=== PATIENT | female | born 1955 | race Two or more races ===

== ENCOUNTER 2024-05-07 10:48 | Inpatient (IN) | payer OTHER ==
[~2024-05-07] VITALS: Ht 157.5 cm; Wt 52.9 kg
[~2024-05-07 10:48] MED LIST: CIPR-173 PO; SERT25TA84 PO; SERT50TA PO; TAMO20TA9 PO
[2024-05-07] MEDS ORDERED: LIDOCAINE 2% TOPICAL JELLY 5 ML URJT TOP ONE (15:07)
[2024-05-07] MEDS ORDERED: ONDANSETRON HCL 4 MG/2 ML VIAL ONE (15:11)
[2024-05-07] MEDS ORDERED: ROCURONIUM 10MG/ML 10ML VIAL IV ONE (15:11)
[2024-05-07] MEDS ORDERED: GLYCOPYRROLATE 0.2 MG/ML 1ML VIAL ONE (15:11)
[2024-05-07] MEDS ORDERED: PROPOFOL 10 MG/ML 20 ML IV ONE (15:12)
[2024-05-07] MEDS ORDERED: DexAMETHasone SOD PHOS 10MG/1ML VIAL INJ ONE ×2 (15:12→15:16)
[2024-05-07] MEDS ORDERED: KETOROLAC TROMETH 30 MG/ML 1ML VIAL ONE (15:12)
[2024-05-07] MEDS ORDERED: LIDOCAINE 2%HCL (LOCAL ANESTH.) INJ 10ml MDV ONE (15:12)
[2024-05-07] MEDS ORDERED: EPINEPHrine HCL 1 MG/1 ML AMP ONE (15:12)
[2024-05-07] MEDS ORDERED: KETAMINE 50mg/ML 1ml syringe ONE (15:21)
[2024-05-07] MEDS ORDERED: fentaNYL CITRATE 100 MCG/2 ML VL ONE (15:21)
[2024-05-07] MEDS ORDERED: SUGAMMADEX 200mg/2ml Vial (100MG/ML) IV ONE (15:56)
[2024-05-07] MEDS: ceFAZolin 2 GM/D5W100ml 100 ML IV ONE (16:00)
[2024-05-07] MEDS ORDERED: MORPHINE SULFATE INJ 2 MG/ml SYRG IV PRN (16:30)
[2024-05-07] MEDS: SODIUM CHLORIDE 0.9% 1,000 ML IV SCH (16:30)
[2024-05-07] MEDS ORDERED: NITROGLYCERIN 0.4 MG SL TAB SL PRN (16:30)
[2024-05-07] MEDS ORDERED: ACETAMINOPHEN 500 MG TAB PO PRN (16:30)
[2024-05-07] MEDS ORDERED: ESMOLOL HCL 10 ML IV ONE (16:33)
--- NOTE | 2024-05-07 16:38 | DVHOP2 ---
Operative Report - 2 Report Details Date: 05/07/24 Preop Diagnosis: Pelvic prolapse, stress incontinence, cystocele, pelvic pain Postop Diagnosis: Same, suspicious vaginal lesion Surgeon: Edith Paz Respiratory Therapy Technician: medical technologist chief Anesthesiologist: RUPERT Anesthesia: General Drains: Shannon catheter 7 days Implant: Desera I Consent: The patient was informed of the risks and benefits of the procedure. These include but are not limited to complications of anesthesia, postoperative infection, incomplete relief of symptoms, recurrence of symptoms, damage to blood vessels, nerves and tendons, deep venous thrombosis, pulmonary embolism and possible need for repeat surgery in the future. Complications: none Estimated Blood Loss: 150cc Fluids: See anesthesia log Findings: Cystocele uterine vaginal prolapse, kinked urethrovesical junction Indications for Surgery: As preop diagnosis Name of Procedure Performed Robotic supracervical hysterectomy bilateral salpingo-oophorectomy colposcopic pexy cystocele repair urethral sling partial vaginectomy Procedure Details Procedure Details: See hard copy faxed to hospital Specimen: Uterus tubes ovaries in BLOC, vaginal mucosa, vaginal lesion Condition Good Disposition Home ANDRES PAZ DO May 07, 2024 16:38
[2024-05-07] MEDS: METHYLENE BLUE 0.5% 5MG/ML 10ml AMP IV ONE (16:46)
[2024-05-07] MEDS: BUPIVACAINE 0.25% INJ 50ML VIAL ONE (18:45)
[2024-05-07] MEDS: LIDOCAINE W/ EPINEPHRINE 1% 20ML VIAL ONE (18:45)
[2024-05-07] MEDS: CONJ ESTROGENS 0.625MG/GM VAG CRM 30GM PV ONE (19:10)
[2024-05-07 19:20] VITALS: PULSE 87; RESP 17; O2SAT 100
[2024-05-07 19:45] VITALS: PULSE 78; RESP 16; O2SAT 99
[2024-05-07] MEDS ORDERED: hydrALAZINE HCL 20 MG/ML VL IV PRN (19:45)
[2024-05-07] MEDS ORDERED: NALOXONE HCL 0.4 MG/ML VIAL IV PRN (19:45)
[2024-05-07] MEDS ORDERED: HYDROmorphone HCL 2 MG/ML VL/or syr IV PRN (19:45)
[2024-05-07] MEDS ORDERED: ePHEDrine SULFATE 50 MG/ML AMP IV PRN (19:45)
[2024-05-07] MEDS ORDERED: ONDANSETRON HCL 4 MG/2 ML VIAL IV PRN (19:45)
[2024-05-07] MEDS ORDERED: FLUMAZENIL 0.1 MG/ML INJ 10ML MDV IV PRN (19:45)
[2024-05-07] MEDS: fentaNYL CITRATE 100 MCG/2 ML VL IV PRN (20:04)
[2024-05-07] MEDS: oxyCODONE HCL 5MG TAB PO PRN (20:16)
[2024-05-07 20:47] VITALS: PULSE 81; RESP 19; O2SAT 100
[2024-05-07 21:00] VITALS: BP 153/51; PULSE 81; RESP 19; TEMP 98; O2SAT 100
[2024-05-07] MEDS: ONDANSETRON HCL 4 MG/2 ML VIAL IV PRN (23:42)
[2024-05-07] MEDS: MORPHINE SULFATE 4 MG/ML SYR/VIAL IV PRN (23:43)
[2024-05-08] VITALS (8 sets, daily range): BP systolic 86–167; BP diastolic 37–62; PULSE 67–95; RESP 16–20; TEMP 97.8–99; O2SAT 95–100
--- NOTE | 2024-05-08 06:11 | DVHPN2 ---
Chief Complaints Patient reports: No new complaints, Feels better Nursing reports: No new complaints, No chest pain, No dizziness, No cough Objective Vitals Vital Signs Date Time Temp Pulse Resp B/P (MAP) Pulse Ox O2 Delivery O2 Flow Rate FiO2 05/08/24 05:00 97.9 68 19 106/54 (71) 100 97.9 05/07/24 20:47 Room Air* 0 21 Medications Current Medications Medications (Trade) Dose Ordered Sig/Nora Route PRN Reason Start Time Stop Time Status Last Admin Acetaminophen (Tylenol Tablet) 500 mg Q6HP PRN PO TEMP GREATER THAN 100.4 05/07/24 16:30 Morphine Sulfate 2 mg Q30M PRN IV FOR CHEST PAIN 05/07/24 16:30 Morphine Sulfate 2 mg Q4HP PRN IV SEVERE PAIN (7-10 PAIN SCALE) 05/07/24 16:30 05/08/24 04:33 Nitroglycerin (Ntrostat Sublingual) 0.4 mg Q5MINP PRN SL FOR CHEST PAIN 05/07/24 16:30 Ondansetron HCl (Zofran) 4 mg Q4HP PRN IV NAUSEA / VOMITING 05/07/24 16:30 05/08/24 04:26 Oxycodone HCl 10 mg ONCE PRN PO MODERATE PAIN (4-6 PAIN SCALE) 05/07/24 19:45 05/07/24 20:16 Sodium Chloride 1,000 ml @ 80 mls/hr [id number] IV 05/07/24 16:30 05/08/24 04:05 General: Normal Head/Eyes: Normal ENT: Normal Neck: Normal Lungs: Normal Cardiovascular: Normal Abdominal: Normal (Wounds clean dry and intact) Musculoskeletal: Normal Extremities: Normal Skin: Normal Ass/Plan Assessment Postop day 1 advanced care see discharge summary see discharge orders Plan Patient will keep Shannon 7 days vaginal packing will be removed this morning advanced care. ANDRES PAZ DO May 08, 2024 06:11
--- NOTE | 2024-05-08 06:14 | DVHDS2 ---
Obstetrics Discharge Summary Obstetrics Discharge Summary Date of Admission: May 07, 2024 Date of Discharge: May 08, 2024 Reason For Admission: Others (Patient was admitted for robotic hysterectomy bilateral salpingo-oophorectomy urethral sling cystocele repair vaginal partial vaginectomy doing well) Procedures: None Procedures: None Operative Complicat: None Discharge Diagnosis: Others (Patient stable for discharge home see discharge orders see discharge summary) Discharge Information: Activity (Pelvic rest), Diet (Routine), Medications (Patient to resume her regular medications her prescription discharge meds at the pharmacy ready to vegetable picker), Instructions (Pelvic rest fever precautions pain precautions bleeding precautions), Discharge to (Home), Accompanied by (Family), Discarge date (05/08/2024) ANDRES PAZ DO May 08, 2024 06:14
[2024-05-08 07:53] LABS: Basophils # (auto) 0 10 ^3/uL (0-0.2); Basophils % (auto) 0.1 % (0.0-2.0); Eosinophils # (auto) 0 10 ^3/uL (0-0.8); Hematocrit 31.6 % (36.0-46.0); Hemoglobin 10.9 g/dL (12.2-16.2); Lymphocytes # (auto) 0.3 10 ^3/uL (0.4-5.4); Lymphocytes % (auto) 6.6 % (10.0-50.0); Mean Corpuscular Hgb Conc. 34.5 g/dL (32.0-36.0); Mean Corpuscular Volume 92.8 fL (80.0-100.0); Monocytes # (auto) 0.5 10 ^3/uL (0-1.3); Monocytes % (auto) 9.9 % (0.0-12.0); Neutrophils % (auto) 83.4 % (37.0-80.0); Platelet Count (auto) 132 10^3/uL (140-450); Red Blood Cells 3.41 10^6/uL (4.0-5.20); Red Cell Distribution Width 14.5 % (11.8-14.3); White Blood Cell 4.8 10^3/uL (4.4-10.8)
[2024-05-08] MEDS: KETOROLAC TROMETH 30 MG/ML 1ML VIAL IV ONE (09:21)
[2024-05-08] MEDS: SODIUM CHLORIDE 0.9% 1,500 ML IV ONE (12:02)
[2024-05-08] MEDS: HYDROcodone-ACET 5/325MG TAB PO PRN (15:10)
[2024-05-08] MEDS: SODIUM CHLORIDE 0.9% 1,000 ML IV SCH (17:30)
--- NOTE | 2024-05-08 18:13 | DVHHP2 ---
History of Present Illness Reason for Visit: Hysterectomy History of Present Illness 68-year-old female who was admitted for surgical procedure, patient had robotic hysterectomy salpingo-oophorectomy, with removal of right adnexal mass, colposacralpexy, cystocele repair and urethral sling with Dr. Apple yesterday. Patient was going to be discharged home today however her blood pressure has been low and she was having some nausea, so patient is staying overnight. Patient was given an NS 1500 mL bolus, and will have maintenance fluids at 150ml/hour. Patient denies chest pain, headache, dizziness, diaphoresis, shortness of breath, abdominal pain, no vomiting, fever, or chills endorsed by the patient. Patient was admitted for further evaluation medical management. Past Medical History Anemia, hypertension, breast cancer Past Surgical History Bilateral mastectomy, hernia repair Smoke: # pack years (50) ALCOHOL: none Drugs: None Lives: with Family Review of Systems Constitutional: No: Fever, Chills, Sweats, Weakness, Malaise, Other Eyes: No: Pain, Vision change, Conjunctivae inflammation, Eyelid inflammation, Other, Redness ENT: No: Ear pain, Ear discharge, Nose pain, Nose discharge, Nose congestion, Mouth pain, Mouth swelling, Throat pain, Throat swelling, Other Respiratory: No: Cough, Dry, Shortness of breath, SOB with excertion, Wheezing, Hemoptysis, Pleuritic Pain, Sputum, Wheezing, Other Cardiovascular: No: Chest Pain, Palpitations, Orthopnea, Paroxysmal Noc. Dyspnea, Edema, Lt Headedness, Other Gastrointestinal: Nausea; No: Vomiting, Abdominal Pain, Diarrhea, Constipation, Melena, Hematochezia, Other Genitourinary: No Dysuria, No Frequency, No Incontinence, No Hematuria, No Retention, No Other Musculoskeletal: No: other, neck pain, shoulder pain, arm pain, back pain, hand pain, leg pain, foot pain Skin: No: Rash, Lesions, Jaundice, Bruising, Other Neurological: No: Weakness, Numbness, Incoordination, Change in speech, Confusion, Seizures, Other Allergies: Coded Allergies: Sulfa Antibiotics (Unverified Allergy, Unknown, 05/04/24) Statins (Unverified Adverse Reaction, Intermediate, muscle aches, 05/04/24) Medications Current Medications Medications Dose Ordered Sig/Nora Route Start Time Stop Time Status Last Admin Dose Admin Ondansetron HCl 4 mg Q4HP PRN IV 05/07/24 16:30 05/08/24 17:47 4 MG Morphine Sulfate 2 mg Q4HP PRN IV 05/07/24 16:30 05/08/24 04:33 2 MG Acetaminophen 500 mg Q6HP PRN PO 05/07/24 16:30 Nitroglycerin 0.4 mg Q5MINP PRN SL 05/07/24 16:30 Morphine Sulfate 2 mg Q30M PRN IV 05/07/24 16:30 Oxycodone HCl 10 mg ONCE PRN PO 05/07/24 19:45 05/07/24 20:16 10 MG Acetaminophen/ Hydrocodone Bitart 1 tab Q4HPRN PRN PO 05/08/24 07:15 05/08/24 15:10 1 TAB Sodium Chloride 1,000 ml @ 150 mls/hr Q6H40M IV 05/08/24 17:30 Exam Vital Signs Vital Signs Date Time Temp Pulse Resp B/P (MAP) Pulse Ox O2 Delivery O2 Flow Rate FiO2 05/08/24 16:50 99.0 95 20 87/37 (54) 97 99.0 05/08/24 08:00 Room Air* 0 21 General Appearance: Alert, Oriented X3, Cooperative, No acute distress HEENT: Atraumatic, PERRLA, EOMI, Mucous membr. moist/pink Respiratory: Clear to auscultation, Normal air movement Cardiovascular: Regular rate, Normal S1, Normal S2, No murmurs Abdominal: Normal bowel sounds, Soft, No tenderness, No hepatospenomegaly Extremities: No clubbing, No cyanosis, No edema, Normal pulses, No tenderness/swelling Skin: No rashes, No breakdown, No significant lesion Neuro: Normal gait, Normal speech, Strength at 5/5 X4 ext, Normal tone, S ensation intact, Cranial nerves 3-12 NL Psych/Mental Status: Mental status NL, Mood NL Labs/Xrays Labs, diagnostic tests and surgical notes reviewed Labs Test 05/08/24 06:37 Range/Units White Blood Count 4.8 4.4-10.8 10^3/uL Red Blood Count 3.41 L 4.0-5.20 10^6/uL Hemoglobin 10.9 L 12.2-16.2 g/dL Hematocrit 31.6 L 36.0-46.0 % Mean Corpuscular Volume 92.8 80.0-100.0 fL Mean Corpuscular Hemoglobin 32.0 28.0-32.0 pg Mean Corpuscular Hemoglobin Concent 34.5 32.0-36.0 g/dL Red Cell Distribution Width 14.5 H 11.8-14.3 % Platelet Count 132 L 140-450 10^3/uL Mean Platelet Volume 7.5 6.9-10.8 fL Neutrophils (%) (Auto) 83.4 H 37.0-80.0 % Lymphocytes (%) (Auto) 6.6 L 10.0-50.0 % Monocytes (%) (Auto) 9.9 0.0-12.0 % Eosinophils (%) (Auto) 0.0 0.0-7.0 % Basophils (%) (Auto) 0.1 0.0-2.0 % Neutrophils # (Auto) 4.0 1.6-8.6 10 ^3/uL Lymphocytes # (Auto) 0.3 L 0.4-5.4 10 ^3/uL Monocytes # (Auto) 0.5 0-1.3 10 ^3/uL Eosinophils # (Auto) 0 0-0.8 10 ^3/uL Basophils # (Auto) 0 0-0.2 10 ^3/uL Nucleated Red Blood Cells 0.0 % Assessment/Plan Assessment/Plan Status post robotic hysterectomy bilateral salpingo-oophorectomy urethral sling cystocele repair vaginal partial vaginectomy Pain medications p.r.n. Zofran p.r.n. nausea Monitor for bleeding Monitor hemoglobin Follow labs in a.m. Follow up with Dr. Reid instructions for Shannon and discharge Hypotension Labs now Bolus now. 150 mL/hour NS maintenance fluids Follow labs in a.m. 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
[2024-05-08] MEDS: CIPROFLOXACIN HCL 500 MG TAB PO SCH (21:20)
[2024-05-08 21:47] LABS: Basophils # (auto) 0 10 ^3/uL (0-0.2); Basophils % (auto) 0.1 % (0.0-2.0); Eosinophils # (auto) 0 10 ^3/uL (0-0.8); Hematocrit 25.6 % (36.0-46.0); Hemoglobin 8.6 g/dL (12.2-16.2); Lymphocytes # (auto) 0.3 10 ^3/uL (0.4-5.4); Lymphocytes % (auto) 9.6 % (10.0-50.0); Mean Corpuscular Hemoglobin 31.2 pg (28.0-32.0); Mean Corpuscular Hgb Conc. 33.7 g/dL (32.0-36.0); Mean Corpuscular Volume 92.4 fL (80.0-100.0); Monocytes # (auto) 0.2 10 ^3/uL (0-1.3); Monocytes % (auto) 6.4 % (0.0-12.0); Neutrophils # (auto) 2.7 10 ^3/uL (1.6-8.6); Neutrophils % (auto) 83.9 % (37.0-80.0); Platelet Count (auto) 99 10^3/uL (140-450); Red Blood Cells 2.77 10^6/uL (4.0-5.20); Red Cell Distribution Width 14.9 % (11.8-14.3); White Blood Cell 3.2 10^3/uL (4.4-10.8)
[2024-05-08 22:01] LABS: Chloride 114 mmol/L (98-107); Sodium 139 mmol/L (136-145)
[2024-05-08 22:02] LABS: Anion Gap 5 (5-15); Calcium 7.5 mg/dL (8.7-10.4); Carbon Dioxide 20 mmol/L (20-30)
[2024-05-08 22:07] LABS: BUN/Creatinine Ratio 18.5 (10.0-20.0); Blood Urea Nitrogen 20 mg/dL (9-23); Glucose 136 mg/dL (74-106)
[2024-05-08 22:24] LABS: Platelet Estimate Decreased; RBC Morphology Normal
[2024-05-09] VITALS (7 sets, daily range): BP systolic 106–129; BP diastolic 43–54; PULSE 75–105; RESP 16–20; TEMP 97.5–98.7; O2SAT 93–97
[2024-05-09 07:30] LABS: Chloride 114 mmol/L (98-107); Potassium 3.9 mmol/L (3.5-5.1); Sodium 140 mmol/L (136-145)
[2024-05-09 07:31] LABS: Anion Gap 7 (5-15); Calcium 8.1 mg/dL (8.7-10.4); Carbon Dioxide 19 mmol/L (20-30)
[2024-05-09 07:36] LABS: BUN/Creatinine Ratio 21.6 (10.0-20.0); Blood Urea Nitrogen 19 mg/dL (9-23); Glucose 124 mg/dL (74-106)
[2024-05-09 07:38] LABS: Basophils # (auto) 0 10 ^3/uL (0-0.2); Basophils % (auto) 0.2 % (0.0-2.0); Eosinophils # (auto) 0 10 ^3/uL (0-0.8); Hematocrit 24.4 % (36.0-46.0); Hemoglobin 8.5 g/dL (12.2-16.2); Lymphocytes # (auto) 0.3 10 ^3/uL (0.4-5.4); Lymphocytes % (auto) 7.1 % (10.0-50.0); Mean Corpuscular Hemoglobin 32.1 pg (28.0-32.0); Mean Corpuscular Hgb Conc. 34.7 g/dL (32.0-36.0); Mean Corpuscular Volume 92.7 fL (80.0-100.0); Monocytes # (auto) 0.2 10 ^3/uL (0-1.3); Monocytes % (auto) 4.5 % (0.0-12.0); Neutrophils # (auto) 3.5 10 ^3/uL (1.6-8.6); Neutrophils % (auto) 88.2 % (37.0-80.0); Platelet Count (auto) 88 10^3/uL (140-450); Red Blood Cells 2.64 10^6/uL (4.0-5.20); Red Cell Distribution Width 14.8 % (11.8-14.3)
[2024-05-09] MEDS: FAMOTIDINE (10MG/ML) 2ML VL IV SCH (10:16)
--- NOTE | 2024-05-09 10:51 | DVHPN2 ---
Subjective 68-year-old female status post robotic surgery hysterectomy and bilateral salpingo-oophorectomy was done on 05/07/24 The patient was supposed to be discharged home yesterday however she became hypotensive and therefore she was admitted to the hospital for further evaluation Her labs showed a hemoglobin of 10.9 which dropped to 8.5 today Chemistries are stable with no acute kidney injury She was given IV fluids which improved her blood pressure Blood pressure was 87/37 yesterday it is 129/53 today She is complaining of severe abdominal pain and acid reflux Changes from previous H/P or p: Changes Eyes: No Pain, No Vision change, No Conjunctivae inflammation, No Eyelid inflammation, No Other, No Redness ENT: No Ear pain, No Ear discharge, No Nose pain, No Nose discharge, No Nose congestion, No Mouth pain, No Mouth swelling, No Throat pain, No Throat swelling, No Other Cardiovascular: No Chest Pain, No Palpitations, No Orthopnea, No Paroxysmal Noc. Dyspnea, No Edema, No Lt Headedness, No Other Respiratory: No Cough, No Dry, No Shortness of breath, No SOB with excertion, No Wheezing, No Hemoptysis, No Pleuritic Pain, No Sputum, No Other Gastrointestinal: Nausea Genitourinary: No Dysuria, No Frequency, No Incontinence, No Hematuria, No Retention, No Other Musculoskeletal: No other, No neck pain, No shoulder pain, No arm pain, No back pain, No hand pain, No leg pain, No foot pain Skin: No Rash, No Lesions, No Jaundice, No Bruising, No Other Objective Vitals Vital Signs Date Time Temp Pulse Resp B/P (MAP) Pulse Ox O2 Delivery O2 Flow Rate FiO2 05/09/24 09:26 98.7 95 18 129/53 (78) 93 98.7 05/08/24 20:00 Nasal Cannula* 2 28 Intake/Output Intake and Output 05/09/24 07:00 Intake Total 3080 ml Output Total 575 ml Balance 2505 ml Intake Oral 600 ml IV Total 2480 ml Output Urine Total 575 ml General Appearance: Alert, Oriented X3, Cooperative, No acute distress Lungs: Clear to auscultation, Normal air movement Cardiovascular: Regular rate, Normal S1, Normal S2 Abdomen: Normal bowel sounds, Soft, Other (Severe tenderness generalized no rebound) Extremities: No edema Medications Current Medications Medications Dose Ordered Sig/Nora Route Start Time Stop Time Status Last Admin Dose Admin Ondansetron HCl 4 mg Q4HP PRN IV 05/07/24 16:30 05/09/24 10:16 4 MG Morphine Sulfate 2 mg Q4HP PRN IV 05/07/24 16:30 05/08/24 04:33 2 MG Acetaminophen 500 mg Q6HP PRN PO 05/07/24 16:30 Nitroglycerin 0.4 mg Q5MINP PRN SL 05/07/24 16:30 Morphine Sulfate 2 mg Q30M PRN IV 05/07/24 16:30 Acetaminophen/ Hydrocodone Bitart 1 tab Q4HPRN PRN PO 05/08/24 07:15 05/09/24 05:07 1 TAB Sodium Chloride 1,000 ml @ 150 mls/hr Q6H40M IV 05/08/24 17:30 05/09/24 07:29 150 MLS/HR Ciprofloxacin 500 mg Q12HR PO 05/08/24 22:00 05/08/24 21:20 500 MG Famotidine 20 mg DAILY IV 05/09/24 10:00 05/09/24 10:16 20 MG Calcium Carbonate 500 mg QIDPRN PRN PO 05/09/24 09:00 Laboratory Results Laboratory Tests 05/09/24 06:11 Chemistry Test 05/08/24 21:08 05/09/24 06:11 Calcium Level 7.5 mg/dL (8.7-10.4) L 8.1 mg/dL (8.7-10.4) L Assessment/Plan Assessment/Plan Abdominal pain due to recent robotic surgery hysterectomy and salpingo- oophorectomy 2 days ago History of breast cancer with bilateral mastectomies History of bowel surgery and ileostomy which Anemia due to blood loss Hypotension Chronic pain syndrome, patient takes opiates at home Plan Lower the IV fluid rate to 60 mL an hour Increase Florence to 10/325 as needed Physical therapy to ambulate the patient today to see if she is ready to go home Pepcid for heartburn 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
[2024-05-09] MEDS: SODIUM CHLORIDE 0.9% 1,000 ML IV SCH (11:00)
[2024-05-09] MEDS: HYDROcodone-ACET 10/325MG TAB PO PRN (11:21)
[2024-05-10] VITALS (10 sets, daily range): BP systolic 124–144; BP diastolic 55–62; PULSE 83–107; RESP 15–18; TEMP 97.6–98.6; O2SAT 94–95
[2024-05-10 07:15] LABS: Albumin 2.6 g/dL (3.2-4.8); Alkaline Phosphatase 37 U/L (46-116); Anion Gap 6 (5-15); Aspartate Aminotransferase < 8 U/L (13-40); BUN/Creatinine Ratio 21.5 (10.0-20.0); Blood Urea Nitrogen 14 mg/dL (9-23); Calcium 8.1 mg/dL (8.7-10.4); Carbon Dioxide 19 mmol/L (20-30); Chloride 115 mmol/L (98-107); Glucose 87 mg/dL (74-106); Magnesium 1.5 mg/dL (1.6-2.6); Potassium 3.1 mmol/L (3.5-5.1); Sodium 140 mmol/L (136-145)
[2024-05-10 07:16] LABS: Bilirubin, Total 0.5 mg/dL (0.2-1.0); Total Protein 4.2 g/dL (5.7-8.2)
[2024-05-10 07:17] LABS: Alanine Aminotransferase < 9 U/L (7-40)
[2024-05-10 07:34] LABS: Basophils # (auto) 0 10 ^3/uL (0-0.2); Eosinophils # (auto) 0 10 ^3/uL (0-0.8); Lymphocytes # (auto) 0.2 10 ^3/uL (0.4-5.4); Monocytes # (auto) 0.1 10 ^3/uL (0-1.3); Neutrophils # (auto) 3.5 10 ^3/uL (1.6-8.6); Platelet Count (auto) 79 10^3/uL (140-450); White Blood Cell 3.8 10^3/uL (4.4-10.8)
[2024-05-10 07:35] LABS: Basophils % (auto) 0.2 % (0.0-2.0); Eosinophils % (auto) 0.4 % (0.0-7.0); Hematocrit 19.6 % (36.0-46.0); Lymphocytes % (auto) 4.3 % (10.0-50.0); Mean Corpuscular Hgb Conc. 33.7 g/dL (32.0-36.0); Mean Corpuscular Volume 91.9 fL (80.0-100.0); Monocytes % (auto) 2.2 % (0.0-12.0); Neutrophils % (auto) 92.9 % (37.0-80.0); Nucleated Red Blood Cells % 0.1 %; Red Blood Cells 2.13 10^6/uL (4.0-5.20); Red Cell Distribution Width 14.5 % (11.8-14.3)
[2024-05-10 07:43] LABS: Hemoglobin 6.6 g/dL (12.2-16.2)
[2024-05-10 08:34] LABS: Platelet Estimate Decreased
[2024-05-10] MEDS: fentaNYL CITRATE 100 MCG/2 ML VL ONE (09:55)
[2024-05-10] MEDS: BUPIVACAINE HCL 50 ML ONE (09:55)
[2024-05-10] MEDS: GABAPENTIN 300 MG CAP ONE (09:55)
[2024-05-10] MEDS: GELATIN 1 SPONGE SIZE 100 TOP ONE (09:55)
[2024-05-10] MEDS: CELECOXIB 100 MG CAP PO ONE (09:55)
[2024-05-10] MEDS: GABAPENTIN 300 MG CAP PO ONE (09:55)
[2024-05-10] MEDS: ACETAMINOPHEN IV 100 ML IV ONE (09:55)
[2024-05-10] MEDS: CELECOXIB 100 MG CAP ONE (09:55)
[2024-05-10] MEDS: ACETAMINOPHEN IV 1000 MG/100ML (10MG/ML) IV ONE (09:55)
[2024-05-10] MEDS: POTASSIUM CHL 20 Meq TABLET PO ONE ×2 (12:36→22:53)
[2024-05-10] MEDS: FUROSEMIDE 40 MG/4 ML VIAL IV ONE (12:39)
--- NOTE | 2024-05-10 22:07 | DVHPN2 ---
Subjective Weak c/o pain Hb is low Low K+ and Mg+ Changes from previous H/P or p: Changes Eyes: No Pain, No Vision change, No Conjunctivae inflammation, No Eyelid inflammation, No Other, No Redness ENT: No Ear pain, No Ear discharge, No Nose pain, No Nose discharge, No Nose congestion, No Mouth pain, No Mouth swelling, No Throat pain, No Throat swelling, No Other Cardiovascular: No Chest Pain, No Palpitations, No Orthopnea, No Paroxysmal Noc. Dyspnea, No Edema, No Lt Headedness, No Other Respiratory: No Cough, No Dry, No Shortness of breath, No SOB with excertion, No Wheezing, No Hemoptysis, No Pleuritic Pain, No Sputum, No Other Gastrointestinal: Nausea Genitourinary: No Dysuria, No Frequency, No Incontinence, No Hematuria, No Retention, No Other Musculoskeletal: No other, No neck pain, No shoulder pain, No arm pain, No back pain, No hand pain, No leg pain, No foot pain Skin: No Rash, No Lesions, No Jaundice, No Bruising, No Other Objective Vitals Vital Signs Date Time Temp Pulse Resp B/P (MAP) Pulse Ox O2 Delivery O2 Flow Rate FiO2 05/10/24 19:33 98.6 83 17 143/62 98.6 05/10/24 12:57 95 05/10/24 08:12 Room Air* 0 21 Intake/Output Intake and Output 05/10/24 07:00 Intake Total 1880 ml Output Total 1150 ml Balance 730 ml Intake Oral 900 ml IV Total 980 ml Output Urine Total 1150 ml General Appearance: Alert, Oriented X3, Cooperative, No acute distress Lungs: Clear to auscultation, Normal air movement Cardiovascular: Regular rate, Normal S1, Normal S2 Abdomen: Normal bowel sounds, Soft, Other (Severe tenderness generalized no rebound) Extremities: No edema Medications Current Medications Medications Dose Ordered Sig/Nora Route Start Time Stop Time Status Last Admin Dose Admin Ondansetron HCl 4 mg Q4HP PRN IV 05/07/24 16:30 05/10/24 21:40 4 MG Acetaminophen 500 mg Q6HP PRN PO 05/07/24 16:30 Nitroglycerin 0.4 mg Q5MINP PRN SL 05/07/24 16:30 Morphine Sulfate 2 mg Q30M PRN IV 05/07/24 16:30 Acetaminophen/ Hydrocodone Bitart 1 tab Q4HPRN PRN PO 05/08/24 07:15 05/09/24 05:07 1 TAB Ciprofloxacin 500 mg Q12HR PO 05/08/24 22:00 05/10/24 21:40 500 MG Famotidine 20 mg DAILY IV 05/09/24 10:00 05/10/24 10:00 20 MG Calcium Carbonate 500 mg QIDPRN PRN PO 05/09/24 09:00 Acetaminophen/ Hydrocodone Bitart 1 tab Q4HP PRN PO 05/09/24 11:00 05/10/24 21:41 1 TAB Laboratory Results Laboratory Tests 05/10/24 06:04 Chemistry Test 05/10/24 06:04 Albumin 2.6 g/dL (3.2-4.8) L Calcium Level 8.1 mg/dL (8.7-10.4) L Magnesium Level 1.5 mg/dL (1.6-2.6) L Total Protein 4.2 g/dL (5.7-8.2) L LFT Test 05/10/24 06:04 Alanine Aminotransferase (ALT) < 9 U/L (7-40) Alkaline Phosphatase 37 U/L (46-116) L Aspartate Amino Transferase (AST) < 8 U/L (13-40) L Total Bilirubin 0.5 mg/dL (0.2-1.0) Assessment/Plan Assessment/Plan Abdominal pain due to recent robotic surgery hysterectomy and salpingo- oophorectomy 2 days ago History of breast cancer with bilateral mastectomies History of bowel surgery and ileostomy which Anemia due to blood loss and dilution Hypotension Chronic pain syndrome, patient takes opiates at home Hypokalemia Hypomagnesemia Plan Lower the IV fluid rate to 60 mL an hour Increase Cosby to 10/325 as needed Physical therapy to ambulate the patient today to see if she is ready to go home Pepcid for heartburn 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
[2024-05-10] MEDS: MAGNESIUM OXIDE 400 MG TAB PO ONE (22:53)
[2024-05-10] MEDS: METOCLOPRAMIDE HCL 5MG/ml INJ 2ml VIAL IV SCH (22:54)
[2024-05-11] VITALS (8 sets, daily range): BP systolic 116–154; BP diastolic 54–80; PULSE 70–86; RESP 12–18; TEMP 97.3–98.7; O2SAT 92–96
--- NOTE | 2024-05-11 03:50 | DVH ---
Examination: CTH CLINICAL INDICATION: Portable COMPARISON: None. CONTRAST USED: None. TECHNIQUE: The examination was performed obtaining 5 mm slices without contrast. CT scan was done a ccording to ALARA (As Low as Reasonably Achievable). Multiplanar reconstructions were obtained. FINDINGS: SUPRATENTORIAL BRAIN: Cerebral Hemispheres: Chronic lacunar infarct in right centrum semiovale. Prominent sulcal - gyral pattern and cisternal spaces in both cerebral hemispheres suggestive of cere bral atrophy, likely age-related. There is no midline shift or mass effect, intra or extra-axial fluid collections or hemorrhage. Periventricular White Matter/Basal Ganglia: No abnormal areas of altered attenuation within the basa l ganglia. Diffuse hypodensities noted in periventricular deep white matter of bilateral cerebral hemispheres, s uggestive of chronic periventricular ischemic changes. POSTERIOR FOSSA: The brainstem is unremarkable. Prominent cerebellar folia suggestive of cerebellar atrophy, likely age-related. VENTRICULAR SYSTEM: The ventricular system is normal in size. There is no evidence of hydrocephalus or transependymal flow of cerebrospinal fluid. SKULL BASE AND PARASELLAR REGION: The skull base is normal with no parasellar masses or abnormalitie s identified. CALVARIUM AND SCALP REGION: Hyperostosis frontalis interna noted bilaterally. PARANASAL SINUSES: No significant inflammatory changes are identified in the visualized paranasal si nuses. IMPRESSION: 1. Chronic lacunar infarct in right centrum semiovale. 2. Chronic periventricular ischemic changes. 3. Cerebral and cerebellar atrophy, likely age-related. 4. Advised further evaluation with MRI brain without contrast if clinically indicated. Electronically Signed 05/11/2024 03:42 Ron Reeder
[2024-05-11] MEDS: METOCLOPRAMIDE HCL 5MG/ml INJ 2ml VIAL IV PRN (05:33)
[2024-05-11 06:51] LABS: Basophils # (auto) 0 10 ^3/uL (0-0.2); Basophils % (auto) 0.1 % (0.0-2.0); Eosinophils # (auto) 0 10 ^3/uL (0-0.8); Eosinophils % (auto) 0.3 % (0.0-7.0); Hematocrit 29.5 % (36.0-46.0); Hemoglobin 9.6 g/dL (12.2-16.2); Lymphocytes # (auto) 0.2 10 ^3/uL (0.4-5.4); Lymphocytes % (auto) 4.8 % (10.0-50.0); Mean Corpuscular Hemoglobin 30.7 pg (28.0-32.0); Mean Corpuscular Hgb Conc. 32.4 g/dL (32.0-36.0); Mean Corpuscular Volume 94.8 fL (80.0-100.0); Monocytes # (auto) 0.2 10 ^3/uL (0-1.3); Monocytes % (auto) 3.6 % (0.0-12.0); Neutrophils # (auto) 4.3 10 ^3/uL (1.6-8.6); Neutrophils % (auto) 91.2 % (37.0-80.0); Nucleated Red Blood Cells % 0.1 %; Platelet Count (auto) 93 10^3/uL (140-450); Red Blood Cells 3.11 10^6/uL (4.0-5.20); White Blood Cell 4.7 10^3/uL (4.4-10.8)
[2024-05-11 07:10] LABS: Alkaline Phosphatase 52 U/L (46-116); Anion Gap 11 (5-15); Aspartate Aminotransferase 13 U/L (13-40); BUN/Creatinine Ratio 13.2 (10.0-20.0); Blood Urea Nitrogen 10 mg/dL (9-23); Calcium 8.7 mg/dL (8.7-10.4); Carbon Dioxide 16 mmol/L (20-31); Chloride 105 mmol/L (98-107); Glucose 97 mg/dL (74-106); Magnesium 1.8 mg/dL (1.6-2.6); Potassium 3.3 mmol/L (3.5-5.1)
[2024-05-11 07:11] LABS: Bilirubin, Total 0.8 mg/dL (0.2-1.0); Total Protein 5.2 g/dL (5.7-8.2)
[2024-05-11 07:14] LABS: Alanine Aminotransferase < 9 U/L (7-40); Sodium 132 mmol/L (136-145)
[2024-05-11] MEDS: MAGNESIUM OXIDE 400 MG TAB PO SCH (10:00)
--- NOTE | 2024-05-11 14:18 | DVH ---
MRI BRAIN WITHOUT CONTRAST CLINICAL HISTORY: stroke TECHNIQUE: Multiplanar, multisequence MR images of the brain without intravenous contrast. Comparison: None None FINDINGS: There are multiple foci of restricted diffusion in the right centrum semiovale and along the superior right frontal lobe compatible with acute to subacute infarct. There are corresponding hyperintense T 2/FLAIR signal changes. There is no evidence of acute hemorrhage. There is no significant surrounding edema. There is no mass effect or midline shift. There is no hydrocephalus or extra-axial fluid col lection. There is absence of flow void in the intracranial portions of the right internal carotid whi ch artery which is likely occluded.. Midline structures appear unremarkable. The calvarium demonstra reece normal marrow signal. The paranasal sinuses and mastoid air cells IMPRESSION: 1. Multiple foci of restricted diffusion in the right centrum semiovale and along the right superior fr ontal lobe compatible with acute to subacute infarcts. There is no evidence of acute hemorrhage or si gnificant surrounding edema. 2. 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 HS:Y
--- NOTE | 2024-05-11 15:32 | DVHPN2 ---
Subjective She developed left arm weakness last night MRI showed multiple acute to subacute infarcts and possible occluded right carotid artery Changes from previous H/P or p: Changes Eyes: No Pain, No Vision change, No Conjunctivae inflammation, No Eyelid inflammation, No Other, No Redness ENT: No Ear pain, No Ear discharge, No Nose pain, No Nose discharge, No Nose congestion, No Mouth pain, No Mouth swelling, No Throat pain, No Throat swelling, No Other Cardiovascular: No Chest Pain, No Palpitations, No Orthopnea, No Paroxysmal Noc. Dyspnea, No Edema, No Lt Headedness, No Other Respiratory: No Cough, No Dry, No Shortness of breath, No SOB with excertion, No Wheezing, No Hemoptysis, No Pleuritic Pain, No Sputum, No Other Gastrointestinal: Nausea Genitourinary: No Dysuria, No Frequency, No Incontinence, No Hematuria, No Retention, No Other Musculoskeletal: No other, No neck pain, No shoulder pain, No arm pain, No back pain, No hand pain, No leg pain, No foot pain Skin: No Rash, No Lesions, No Jaundice, No Bruising, No Other Objective Vitals Vital Signs Date Time Temp Pulse Resp B/P (MAP) Pulse Ox O2 Delivery O2 Flow Rate FiO2 05/11/24 05:00 97.9 70 17 129/54 (79) 96 97.9 05/10/24 20:00 Room Air* 0 21 Intake/Output Intake and Output 05/11/24 07:00 Intake Total 2100 ml Output Total 3700 ml Balance -1600 ml Intake Oral 1500 ml Blood Product 300 ml Other 300 ml Output Urine Total 3700 ml General Appearance: Alert, Oriented X3, Cooperative, No acute distress Lungs: Clear to auscultation, Normal air movement Cardiovascular: Regular rate, Normal S1, Normal S2 Abdomen: Normal bowel sounds, Soft, Other (Severe tenderness generalized no rebound) Extremities: No edema Neuro: Other (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) Medications Current Medications Medications Dose Ordered Sig/Nora Route Start Time Stop Time Status Last Admin Dose Admin Ondansetron HCl 4 mg Q4HP PRN IV 05/07/24 16:30 05/11/24 09:53 4 MG Acetaminophen 500 mg Q6HP PRN PO 05/07/24 16:30 Nitroglycerin 0.4 mg Q5MINP PRN SL 05/07/24 16:30 Morphine Sulfate 2 mg Q30M PRN IV 05/07/24 16:30 Acetaminophen/ Hydrocodone Bitart 1 tab Q4HPRN PRN PO 05/08/24 07:15 05/11/24 05:46 1 TAB Ciprofloxacin 500 mg Q12HR PO 05/08/24 22:00 05/11/24 09:54 500 MG Famotidine 20 mg DAILY IV 05/09/24 10:00 05/11/24 09:54 20 MG Calcium Carbonate 500 mg QIDPRN PRN PO 05/09/24 09:00 Acetaminophen/ Hydrocodone Bitart 1 tab Q4HP PRN PO 05/09/24 11:00 05/11/24 10:16 1 TAB Magnesium Oxide 400 mg BID PO 05/11/24 10:00 Metoclopramide HCl 10 mg Q6HR PRN IV 05/10/24 23:15 05/11/24 05:33 10 MG Laboratory Results Laboratory Tests 05/11/24 06:02 Chemistry Test 05/11/24 06:02 Albumin 3.0 g/dL (3.2-4.8) L Calcium Level 8.7 mg/dL (8.7-10.4) Magnesium Level 1.8 mg/dL (1.6-2.6) Total Protein 5.2 g/dL (5.7-8.2) L LFT Test 05/11/24 06:02 Alanine Aminotransferase (ALT) < 9 U/L (7-40) Alkaline Phosphatase 52 U/L (46-116) Aspartate Amino Transferase (AST) 13 U/L (13-40) Total Bilirubin 0.8 mg/dL (0.2-1.0) Assessment/Plan Assessment/Plan Abdominal pain due to recent robotic surgery hysterectomy and salpingo- oophorectomy 2 days ago History of breast cancer with bilateral mastectomies History of bowel surgery and ileostomy which Anemia due to blood loss and dilution Hypotension Chronic pain syndrome, patient takes opiates at home Hypokalemia Hypomagnesemia ACUTE CVA w LUE paresis Plan Lower the IV fluid rate to 60 mL an hour Increase [place] to 10/325 as needed Physical therapy to ambulate the patient today to see if she is ready to go home Pepcid for heartburn Cipro p.o. per microbial specialist If the patient's ambulates well today we might send her home otherwise observe her in the hospital 1 more day and check her hemoglobin again tomorrow to see if she needs any blood transfusion 05/10/24: Replace K+ and Mg+ Lasix 40 mg IV x 1 PT OOB DC planning home tomorrow 05/11/24: ACUTE CVA w LEFT ARM WEAKNESS ?Carotid artery occlusion Aspirin Lipitor Carotid US Echo Neurology consult Plan discussed with: Patient My Orders Orders - BARI MOORE MD Procedure Category Date Status Time Magnesium Oxide PHA 05/11/24 In Process Tablet (Mag-Ox Tablet) 10:00 Brain Head Wo Contrast MRI 05/11/24 Resulted 12:27 Urinalysis LAB 05/11/24 Uncollected 12:28 Urine Bacterial MIROSLAVA 05/11/24 Logged Culture 12:28 Date of Service: May 11, 2024 Billing Provider: BARI MOORE MD Common Visit Codes: NOT BILLABLE BARI MOORE MD May 11, 2024 15:32
[2024-05-11] MEDS: POTASSIUM CHL 20 Meq TABLET PO ONE (15:52)
--- NOTE | 2024-05-11 16:45 | DVH ---
Carotid Duplex Date: 05/11/2024 03:40 PM Clinical History: CVA Comparison: Same day MRI brain Technique: Duplex Doppler evaluation of the extracranial carotid and vertebral arteries including color Doppler and spectral/pulsed waveform analysis was performed. Findings: RIGHT SIDE: Heterogenous plaque at the right carotid bulb, proximal right ICA, proximal right ECA. The peak systolic velocities are 50 cm/s in the distal CCA. There is no demonstrable flow in the prox imal ICA. The external carotid artery is patent with peak systolic velocity of 208 cm/s proximally. There is appropriate antegrade flow in the right vertebral artery. LEFT SIDE: Heterogenous plaque of the left carotid bulb. The peak systolic velocities are 77 cm/s in the distal CCA and 219 cm/s in the proximal ICA.. The IC A/CCA ratio is 2.8 . The external carotid artery is patent with peak systolic velocity of 130 cm/s proximally. There is appropriate antegrade flow in the left vertebral artery. IMPRESSION: 1. Occlusion of the right proximal ICA. 2. Greater than 50% stenosis of the right proximal ECA. 3. Greater than 50% stenosis of the left proximal ICA. Reference: Radiology 2003; [id number] [Critical Findings] Critical Result: Right ICA occlusion Findings discussed with Dr Reid, at 05/11/2024 04:17 PM, and acknowledged receipt and understanding of the findings.
[2024-05-11 16:58] LABS: Urine Bacteria None Seen /hpf (None Seen)
[2024-05-11 17:17] LABS: Urine Blood TRACE /uL (Negative); Urine Clarity Clear (Clear); Urine Color Yellow (Yellow); Urine Mucus FEW (None Seen); Urine Protein, UAD 1+ (Negative); Urine Urobilinogen Normal (Negative); Urine WBC 2 /hpf (0 - 5)
[2024-05-11] MEDS: ASPirin 325 MG TAB PO ONE (17:21)
[2024-05-11] MEDS: ceFAZolin 1GM/50ML 50 ML IV SCH (21:37)
[2024-05-11] MEDS ORDERED: ATORVASTATIN 20 MG TAB PO SCH (22:00)
[2024-05-12] VITALS (7 sets, daily range): BP systolic 126–156; BP diastolic 63–81; PULSE 82–92; RESP 13–20; TEMP 97.3–99; O2SAT 94–97
[2024-05-12] MEDS: CALCIUM CARB 500 MG CHEW TAB PO PRN (05:36)
[2024-05-12] MEDS: ASPirin 81 mg TAB PO SCH (11:19)
[2024-05-12 12:18] LABS: Albumin 3.3 g/dL (3.2-4.8); Alkaline Phosphatase 54 U/L (46-116); Anion Gap 14 (5-15); Aspartate Aminotransferase 8 U/L (13-40); BUN/Creatinine Ratio 23.3 (10.0-20.0); Bilirubin, Total 0.7 mg/dL (0.2-1.0); Blood Urea Nitrogen 14 mg/dL (9-23); Calcium 8.7 mg/dL (8.7-10.4); Carbon Dioxide 18 mmol/L (20-31); Chloride 102 mmol/L (98-107); Cholesterol 134 mg/dL (< 200); Glucose 120 mg/dL (74-106); HDL Cholesterol 23 mg/dL (40-59); LDL Cholesterol 75 mg/dL (< 100); Magnesium 1.7 mg/dL (1.6-2.6); Potassium 3.4 mmol/L (3.5-5.1); Sodium 134 mmol/L (136-145); Total Protein 5.5 g/dL (5.7-8.2); Triglycerides 196 mg/dL (< 150)
[2024-05-12 12:19] LABS: Alanine Aminotransferase < 9 U/L (7-40)
--- NOTE | 2024-05-12 14:16 | DVHPN2 ---
Subjective The patient is seen and examined at bedside. No change overnight. Patient is still complaint of abdominal pain. Reviewed: Care Plan, H&P, Labs, Medications, Previous Orders, Radiology Changes from previous H/P or p: No Changes Eyes: No Pain, No Vision change, No Conjunctivae inflammation, No Eyelid inflammation, No Other, No Redness ENT: No Ear pain, No Ear discharge, No Nose pain, No Nose discharge, No Nose congestion, No Mouth pain, No Mouth swelling, No Throat pain, No Throat swelling, No Other Cardiovascular: No Chest Pain, No Palpitations, No Orthopnea, No Paroxysmal Noc. Dyspnea, No Edema, No Lt Headedness, No Other Respiratory: No Cough, No Dry, No Shortness of breath, No SOB with excertion, No Wheezing, No Hemoptysis, No Pleuritic Pain, No Sputum, No Other Gastrointestinal: Nausea Genitourinary: No Dysuria, No Frequency, No Incontinence, No Hematuria, No Retention, No Other Musculoskeletal: No other, No neck pain, No shoulder pain, No arm pain, No back pain, No hand pain, No leg pain, No foot pain Skin: No Rash, No Lesions, No Jaundice, No Bruising, No Other Objective Vitals Vital Signs Date Time Temp Pulse Resp B/P (MAP) Pulse Ox O2 Delivery O2 Flow Rate FiO2 05/12/24 12:48 99.0 87 18 156/73 (100) 94 99.0 05/12/24 08:00 Room Air* 0 21 Intake/Output Intake and Output 05/12/24 07:00 Intake Total 600 ml Output Total 950 ml Balance -350 ml Intake Oral 600 ml Output Urine Total 950 ml General Appearance: Alert, Oriented X3, Cooperative, No acute distress Lungs: Clear to auscultation, Normal air movement Cardiovascular: Regular rate, Normal S1, Normal S2 Abdomen: Normal bowel sounds, Soft, Other (Severe tenderness generalized no rebound) Extremities: No edema Neuro: Other (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) Medications Current Medications Medications Dose Ordered Sig/Nora Route Start Time Stop Time Status Last Admin Dose Admin Ondansetron HCl 4 mg Q4HP PRN IV 05/07/24 16:30 05/12/24 09:27 4 MG Acetaminophen 500 mg Q6HP PRN PO 05/07/24 16:30 Nitroglycerin 0.4 mg Q5MINP PRN SL 05/07/24 16:30 Morphine Sulfate 2 mg Q30M PRN IV 05/07/24 16:30 Acetaminophen/ Hydrocodone Bitart 1 tab Q4HPRN PRN PO 05/08/24 07:15 05/12/24 11:20 1 TAB Famotidine 20 mg DAILY IV 05/09/24 10:00 05/12/24 11:19 20 MG Calcium Carbonate 500 mg QIDPRN PRN PO 05/09/24 09:00 05/12/24 05:36 500 MG Acetaminophen/ Hydrocodone Bitart 1 tab Q4HP PRN PO 05/09/24 11:00 05/12/24 14:12 1 TAB Magnesium Oxide 400 mg BID PO 05/11/24 10:00 05/12/24 11:19 400 MG Metoclopramide HCl 10 mg Q6HR PRN IV 05/10/24 23:15 05/11/24 05:33 10 MG Cefazolin Sodium 50 ml @ 100 mls/hr Q8HR IV 05/11/24 22:00 05/12/24 14:12 100 MLS/HR Atorvastatin Calcium 40 mg HS PO 05/11/24 22:00 Hold Aspirin 81 mg DAILY PO 05/12/24 10:00 05/12/24 11:19 81 MG Laboratory Results Laboratory Tests 05/12/24 11:19 Chemistry Test 05/12/24 11:19 Albumin 3.3 g/dL (3.2-4.8) Calcium Level 8.7 mg/dL (8.7-10.4) Magnesium Level 1.7 mg/dL (1.6-2.6) Total Protein 5.5 g/dL (5.7-8.2) L Lipid panel Test 05/12/24 11:19 Cholesterol Level 134 mg/dL (< 200) HDL Cholesterol 23 mg/dL (40-59) L Triglycerides Level 196 mg/dL (< 150) H LFT Test 05/12/24 11:19 Alanine Aminotransferase (ALT) < 9 U/L (7-40) Alkaline Phosphatase 54 U/L (46-116) Aspartate Amino Transferase (AST) 8 U/L (13-40) L Total Bilirubin 0.7 mg/dL (0.2-1.0) HgA1c, TSH Test 05/12/24 11:19 Thyroid Stimulating Hormone (TSH) 2.01 uIU/mL (0.55-4.78) Urinalysis Test 05/11/24 16:18 Urine Color Yellow (Yellow) Urine Clarity Clear (Clear) Urine pH 6.0 (5.0-9.0) Urine Specific [place] 1.020 (1.001-1.035) Urine Protein 1+ (Negative) H Urine Ketones 4+ (Negative) H Urine Blood Trace /uL (Negative) H Urine Nitrite Negative (Negative) Urine Bilirubin Negative (Negative) Urine Urobilinogen Normal mg/dL (Negative) Urine Leukocyte Esterase Negative /uL (Negative) Urine RBC 2 /hpf (0 - 4) Urine WBC 2 /hpf (0 - 5) Urine Squamous Epithelial Cells Few /hpf (<5) Urine Bacteria None seen /hpf (None Seen) Urine Mucus Few (None Seen) Urine Glucose Normal mg/dL (Normal) Microbiology Microbiology Date/Time Source Procedure Growth Status 05/11/24 16:18 Urine - [place] Urine Culture - Preliminary Resulted Labs and/or images reviewed: Labs reviewed by me Assessment/Plan Assessment/Plan Abdominal pain due to recent robotic surgery hysterectomy and salpingo- oophorectomy History of breast cancer with bilateral mastectomies History of bowel surgery and ileostomy which Anemia due to blood loss and dilution Hypotension Chronic pain syndrome, patient takes opiates at home Hypokalemia Hypomagnesemia Continuing current management. We will continuing with [place] p.r.n. for pain control. Replace electrolytes. Encouraged the patient to work with physical therapy. Plan discussed with: Patient Date of Service: May 12, 2024 Billing Provider: BERNARDINO MOHAN MD Common Visit Codes: [id number] INP/OBS CARE(HIGH) BERNARDINO MOHAN MD May 12, 2024 14:16
[2024-05-12 18:42] LABS: Basophils # (auto) 0 10 ^3/uL (0-0.2); Basophils % (auto) 0.1 % (0.0-2.0); Eosinophils # (auto) 0 10 ^3/uL (0-0.8); Eosinophils % (auto) 0.6 % (0.0-7.0); Hematocrit 31.6 % (36.0-46.0); Hemoglobin 10.7 g/dL (12.2-16.2); Lymphocytes # (auto) 0.2 10 ^3/uL (0.4-5.4); Lymphocytes % (auto) 4.5 % (10.0-50.0); Mean Corpuscular Hemoglobin 30.3 pg (28.0-32.0); Mean Corpuscular Volume 89.3 fL (80.0-100.0); Monocytes # (auto) 0.3 10 ^3/uL (0-1.3); Neutrophils # (auto) 4.5 10 ^3/uL (1.6-8.6); Neutrophils % (auto) 88.8 % (37.0-80.0); Platelet Count (auto) 119 10^3/uL (140-450); Red Blood Cells 3.53 10^6/uL (4.0-5.20); Red Cell Distribution Width 16.1 % (11.8-14.3); White Blood Cell 5.1 10^3/uL (4.4-10.8)
--- NOTE | 2024-05-12 20:00 | DVHINCON2 ---
Date of service: May 12, [address] Reid Reason for Consultation Acute stroke History of Present Illness Ms. Barrera is a 68 years old right-handed female with a history of hypertension, anemia, breast cancer, she was admitted to the [facility] on 05/07/2024 for scheduled hysterectomy and oophorectomy. Post surgically, she woke up with left-sided weakness, and MRI showed multiple stroke in the right MCA territory. The patient denies altered mental status, she was no history of stroke She used to snore when she was alcoholic URINALYSIS, 05/11/2024: WBC: 2, URINE LEUKOCYTE ESTERASE: NEGATIVE WBC/HB/PLT/MCV, 05/04: 5.1/10.7/119/98.3 K, 05/09/2024: 3.9, 05/10/24:3.1, 05/12/2024: 3.4 LIVER FUNCTION TESTS, 05/12/2024: UNREMARKABLE TG/HDL/LDL/HDL, 05/12/2024: 196/134/75/23 TSH, 05/12/2024: 2.01 Carotid Doppler, 05/11/2024: 1. Occlusion of the right proximal ICA. 2. Greater than 50% stenosis of the right proximal ECA. 3. Greater than 50% stenosis of the left proximal ICA CT head, 05/11/2024: 1. Chronic lacunar infarct in right centrum semiovale. 2. Chronic periventricular ischemic changes. 3. Cerebral and cerebellar atrophy, likely age-related. 4. Advised further evaluation with MRI brain without contrast if clinically indicated MRI HEAD, 05/11/2024: 1. Multiple foci of restricted diffusion in the right centrum semiovale and along the right superior frontal lobe compatible with acute to subacute infarcts. There is no evidence of acute hemorrhage or significant surrounding edema. 2. Absence of flow void in the intracranial portions of the right internal carotid artery which is likely occluded. Past Medical History Hypertension, anemia, breast cancer Past Surgical History Hernia repair, bilateral mastectomy, hysterectomy Family History Diabetes, lung cancer, brain cancer Social History She smokes tobacco, she was a heavy alcohol drinker, but no history of drug abuse Allergies: Coded Allergies: Sulfa Antibiotics (Unverified Allergy, Unknown, 05/04/24) Statins (Unverified Adverse Reaction, Intermediate, muscle aches, 05/04/24) Home Meds Reported Medications Sertraline Hcl (Zoloft) 50 Mg Tab, 50 MG PO DAILY, TAB 05/04/24 Sertraline Hcl (Zoloft) 25 Mg Tab, 1 TAB PO DAILY, #30 TAB 1 Refill 05/04/24 Ciprofloxacin Hcl (Cipro) 500 Mg Tab, 500 MG PO BID, TAB 05/04/24 Tamoxifen Citrate (Tamoxifen Citrate) 20 Mg Tab, 20 MG PO DAILY, TAB 05/04/24 Current Medications Current Medications Medications (Trade) Dose Ordered Sig/Nora Route PRN Reason Start Time Stop Time Status Last Admin Cefazolin Sodium 50 ml @ 100 mls/hr Q8HR IV 05/11/24 22:00 05/12/24 14:12 Atorvastatin Calcium (Lipitor) 40 mg HS PO 05/11/24 22:00 Hold Aspirin 81 mg DAILY PO 05/12/24 10:00 05/12/24 11:19 Docusate Sodium (Colace Capsule) 100 mg BID PO 05/12/24 22:00 Polyethylene Glycol (Miralax 17GM Powder) 17 gm DAILYPRN PRN PO FOR CONSTIPATION 05/12/24 14:45 Sertraline HCl (Zoloft) 50 mg DAILY PO 05/13/24 10:00 Review of Systems As above, the other systems are negative Vital Signs Vital Signs Date Time Temp Pulse Resp B/P (MAP) Pulse Ox O2 Delivery O2 Flow Rate FiO2 05/12/24 17:11 98.4 88 16 137/63 (87) 95 98.4 05/12/24 08:00 Room Air* 0 21 Physical Exam GENERAL EXAM: General: the patient is well developed and nourished. No acute distress. HEENT: Normocephalic, neck is supple, no carotid bruits. No mass RESPIRATORY: Normal respiratory effort with symmetrical lung expansion. Lungs clear to auscultation. CARDIOVASCULAR: Regular rate and rhythm with no murmurs. S1, S2. ABDOMEN: Status post surgery NEUROLOGICAL: MENTAL STATUS: Awake and alert. Oriented to person, place, time and general circumstances. Able to give personal history. SPEECH, LANGUAGE, HIGHER CORTICAL FUNCTION: no aphasia or dysathria. CRANIAL NERVES: #2: Intact visual [place]aza to confrontation. The optic discs were sharp. #3,4,6: Pupils are equal, round and reactive. EOMs full and conjugate. No nystagmus. #5: Facial sensation intact in all three divisions bilaterally. Mandibular strength intact. #7: Mild left facial weakness of upper motor neuron pattern #8: Hearing grossly normal to voice. #9,10: Uvula and soft palate rise in the midline. Swallow and voice are normal. #11: Trapezius and sternomastoid strength intact bilaterally. #12: Tongue midline. No fasciculations or atrophy. SENSATION: Sensation to touch and pinprick is normal. MOTOR: Normal tone in the upper and lower extremity. Normal muscle bulk. No fasciculations. No abnormal movements or posturing. Muscle strength of the major groups in the right extremities is 5/5. Muscle strength of the major groups in the left extremities is: Upper extremity: 2/5, lower extremity: 4/5. REFLEXES: Deep tendon reflexes are symmetrical. No pathological reflexes. CEREBELLAR/COORDINATION: Finger to nose is normal in the right arm GAIT/STATION: deferred Labs/Diagnostic Data Labs Test 05/12/24 17:46 05/12/24 11:19 05/11/24 16:18 05/10/24 06:04 Range/Units White Blood Count 5.1 4.4-10.8 10^3/uL Red Blood Count 3.53 L 4.0-5.20 10^6/uL Hemoglobin 10.7 L 12.2-16.2 g/dL Hematocrit 31.6 L 36.0-46.0 % Mean Corpuscular Volume 89.3 # 80.0-100.0 fL Mean Corpuscular Hemoglobin 30.3 28.0-32.0 pg Mean Corpuscular Hemoglobin Concent 34.0 32.0-36.0 g/dL Red Cell Distribution Width 16.1 H 11.8-14.3 % Platelet Count 119 L 140-450 10^3/uL Mean Platelet Volume 6.8 L 6.9-10.8 fL Neutrophils (%) (Auto) 88.8 H 37.0-80.0 % Lymphocytes (%) (Auto) 4.5 L 10.0-50.0 % Monocytes (%) (Auto) 6.0 0.0-12.0 % Eosinophils (%) (Auto) 0.6 0.0-7.0 % Basophils (%) (Auto) 0.1 0.0-2.0 % Neutrophils # (Auto) 4.5 1.6-8.6 10 ^3/uL Lymphocytes # (Auto) 0.2 L 0.4-5.4 10 ^3/uL Monocytes # (Auto) 0.3 0-1.3 10 ^3/uL Eosinophils # (Auto) 0 0-0.8 10 ^3/uL Basophils # (Auto) 0 0-0.2 10 ^3/uL Nucleated Red Blood Cells 0.0 % Sodium Level 134 L 136-145 mmol/L Potassium Level 3.4 L 3.5-5.1 mmol/L Chloride Level 102 98-107 mmol/L Carbon Dioxide Level 18 L 20-31 mmol/L Anion Gap 14 5-15 Blood Urea Nitrogen 14 9-23 mg/dL Creatinine 0.60 0.550-1.02 mg/dL Glomerular Filtration Rate Calc 97 >90 mL/min BUN/Creatinine Ratio 23.3 H 10.0-20.0 Serum Glucose 120 H 74-106 mg/dL Calcium Level 8.7 8.7-10.4 mg/dL Magnesium Level 1.7 1.6-2.6 mg/dL Total Bilirubin 0.7 0.2-1.0 mg/dL Aspartate Amino Transferase (AST) 8 L 13-40 U/L Alanine Aminotransferase (ALT) < 9 7-40 U/L Alkaline Phosphatase 54 46-116 U/L Total Protein 5.5 L 5.7-8.2 g/dL Albumin 3.3 3.2-4.8 g/dL Triglycerides Level 196 H < 150 mg/dL Cholesterol Level 134 < 200 mg/dL LDL Cholesterol 75 < 100 mg/dL HDL Cholesterol 23 L 40-59 mg/dL Thyroid Stimulating Hormone (TSH) 2.01 0.55-4.78 uIU/mL Urine Color Yellow Yellow Urine Clarity Clear Clear Urine pH 6.0 5.0-9.0 Urine Specific [place] 1.020 1.001-1.035 Urine Protein 1+ H Negative Urine Ketones 4+ H Negative Urine Blood Trace H Negative /uL Urine Nitrite Negative Negative Urine Bilirubin Negative Negative Urine Urobilinogen Normal Negative mg/dL Urine Leukocyte Esterase Negative Negative /uL Urine RBC 2 0 - 4 /hpf Urine WBC 2 0 - 5 /hpf Urine Squamous Epithelial Cells Few <5 /hpf Urine Bacteria None seen None Seen /hpf Urine Mucus Few None Seen Urine Glucose Normal Normal mg/dL Platelet Estimate Decreased Test 05/08/24 21:08 Range/Units Red Blood Cell Morphology Normal Microbiology Date/Time Source Procedure Growth Status 05/11/24 16:18 Urine - [place] Urine Culture - Preliminary Resulted Assessment Acute right MCA territory multiple strokes Left hemiparesis Status post oophorectomy, hysterectomy Plan/Recommendation Monitoring Supportive treatment Telemetry Echocardiogram reports Aspirin 81 mg q.d. Plavix 75 mg daily for 21 days Lipitor 20 mg daily Up to chair Physical therapy More recommendation per clinical course Prognosis: Poor This medical document was created using an electronic medical record system with [employer] dictation system. Although this document has been carefully reviewed, there may still be some phonetic and typographical errors. These areas are purely typographical due to imperfections of the software programs, and do not reflect any compromise in the patient's medical care. Plan discussed with: Patient, Other BRYAN FLORES MD May 12, 2024 20:00
[2024-05-12] MEDS: ATORVASTATIN 20 MG TAB PO SCH (20:45)
[2024-05-12 20:53] LABS: Platelet Estimate Decreased
[2024-05-12] MEDS: CLOPIDOGREL BISULFATE 75 MG TAB PO SCH (21:14)
[2024-05-12] MEDS: DOCUSATE SOD 100 MG CAP PO SCH (21:14)
[2024-05-13] VITALS (7 sets, daily range): BP systolic 102–171; BP diastolic 51–71; PULSE 94–100; RESP 15–20; TEMP 97.1–98; O2SAT 95–97
[2024-05-13 07:35] LABS: Basophils # (auto) 0 10 ^3/uL (0-0.2); Basophils % (auto) 0.1 % (0.0-2.0); Eosinophils # (auto) 0 10 ^3/uL (0-0.8); Eosinophils % (auto) 0.5 % (0.0-7.0); Lymphocytes # (auto) 0.3 10 ^3/uL (0.4-5.4); Lymphocytes % (auto) 3.6 % (10.0-50.0); Mean Corpuscular Hemoglobin 29.7 pg (28.0-32.0); Mean Corpuscular Hgb Conc. 34.5 g/dL (32.0-36.0); Mean Corpuscular Volume 86.2 fL (80.0-100.0); Monocytes # (auto) 0.4 10 ^3/uL (0-1.3); Monocytes % (auto) 4.8 % (0.0-12.0); Neutrophils # (auto) 7.2 10 ^3/uL (1.6-8.6); Nucleated Red Blood Cells % 0.1 %; Platelet Count (auto) 142 10^3/uL (140-450); Red Blood Cells 3.71 10^6/uL (4.0-5.20); Red Cell Distribution Width 15.8 % (11.8-14.3); White Blood Cell 7.9 10^3/uL (4.4-10.8)
[2024-05-13] MEDS: SERTRALINE HCL 50 MG TAB PO SCH (10:59)
--- NOTE | 2024-05-13 12:17 | DVHPN2 ---
Subjective The patient is seen and examined at bedside. Complain of abdominal pain. Patient tolerated diet however nausea. No vomiting. Reviewed: Care Plan, H&P, Labs, Medications, Previous Orders, Radiology Changes from previous H/P or p: No Changes Eyes: No Pain, No Vision change, No Conjunctivae inflammation, No Eyelid inflammation, No Other, No Redness ENT: No Ear pain, No Ear discharge, No Nose pain, No Nose discharge, No Nose congestion, No Mouth pain, No Mouth swelling, No Throat pain, No Throat swelling, No Other Cardiovascular: No Chest Pain, No Palpitations, No Orthopnea, No Paroxysmal Noc. Dyspnea, No Edema, No Lt Headedness, No Other Respiratory: No Cough, No Dry, No Shortness of breath, No SOB with excertion, No Wheezing, No Hemoptysis, No Pleuritic Pain, No Sputum, No Other Gastrointestinal: Nausea Genitourinary: No Dysuria, No Frequency, No Incontinence, No Hematuria, No Retention, No Other Musculoskeletal: No other, No neck pain, No shoulder pain, No arm pain, No back pain, No hand pain, No leg pain, No foot pain Skin: No Rash, No Lesions, No Jaundice, No Bruising, No Other Objective Vitals Vital Signs Date Time Temp Pulse Resp B/P (MAP) Pulse Ox O2 Delivery O2 Flow Rate FiO2 05/13/24 08:00 Room Air* 0 21 05/13/24 04:47 97.1 98 16 130/69 (89) 95 97.1 Intake/Output Intake and Output 05/13/24 07:00 Intake Total 900 ml Output Total 1000 ml Balance -100 ml Intake Oral 900 ml Output Urine Total 1000 ml General Appearance: Alert, Oriented X3, Cooperative, No acute distress Lungs: Clear to auscultation, Normal air movement Cardiovascular: Regular rate, Normal S1, Normal S2 Abdomen: Normal bowel sounds, Soft, Other (Severe tenderness generalized no rebound) Extremities: No edema Neuro: Other (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) Medications Current Medications Medications Dose Ordered Sig/Nora Route Start Time Stop Time Status Last Admin Dose Admin Ondansetron HCl 4 mg Q4HP PRN IV 05/07/24 16:30 05/13/24 08:55 4 MG Acetaminophen 500 mg Q6HP PRN PO 05/07/24 16:30 Nitroglycerin 0.4 mg Q5MINP PRN SL 05/07/24 16:30 Morphine Sulfate 2 mg Q30M PRN IV 05/07/24 16:30 Acetaminophen/ Hydrocodone Bitart 1 tab Q4HPRN PRN PO 05/08/24 07:15 05/13/24 10:58 1 TAB Famotidine 20 mg DAILY IV 05/09/24 10:00 05/13/24 10:59 20 MG Calcium Carbonate 500 mg QIDPRN PRN PO 05/09/24 09:00 05/12/24 05:36 500 MG Acetaminophen/ Hydrocodone Bitart 1 tab Q4HP PRN PO 05/09/24 11:00 05/13/24 08:56 1 TAB Magnesium Oxide 400 mg BID PO 05/11/24 10:00 05/13/24 10:58 400 MG Metoclopramide HCl 10 mg Q6HR PRN IV 05/10/24 23:15 05/11/24 05:33 10 MG Cefazolin Sodium 50 ml @ 100 mls/hr Q8HR IV 05/11/24 22:00 05/13/24 05:26 100 MLS/HR Aspirin 81 mg DAILY PO 05/12/24 10:00 05/13/24 10:58 81 MG Docusate Sodium 100 mg BID PO 05/12/24 22:00 05/13/24 10:59 100 MG Polyethylene Glycol 17 gm DAILYPRN PRN PO 05/12/24 14:45 Sertraline HCl 50 mg DAILY PO 05/13/24 10:00 05/13/24 10:59 50 MG Atorvastatin Calcium 20 mg HS PO 05/12/24 20:45 Clopidogrel Bisulfate 75 mg DAILY PO 05/12/24 21:00 06/02/24 23:00 05/13/24 10:59 75 MG Laboratory Results Laboratory Tests 05/12/24 11:19 05/13/24 06:07 Urinalysis Test 05/11/24 16:18 Urine Color Yellow (Yellow) Urine Clarity Clear (Clear) Urine pH 6.0 (5.0-9.0) Urine Specific [place] 1.020 (1.001-1.035) Urine Protein 1+ (Negative) H Urine Ketones 4+ (Negative) H Urine Blood Trace /uL (Negative) H Urine Nitrite Negative (Negative) Urine Bilirubin Negative (Negative) Urine Urobilinogen Normal mg/dL (Negative) Urine Leukocyte Esterase Negative /uL (Negative) Urine RBC 2 /hpf (0 - 4) Urine WBC 2 /hpf (0 - 5) Urine Squamous Epithelial Cells Few /hpf (<5) Urine Bacteria None seen /hpf (None Seen) Urine Mucus Few (None Seen) Urine Glucose Normal mg/dL (Normal) Microbiology Microbiology Date/Time Source Procedure Growth Status 05/11/24 16:18 Urine - [place] Urine Culture - Preliminary Resulted Labs and/or images reviewed: Labs reviewed by me Assessment/Plan Assessment/Plan Abdominal pain due to recent robotic surgery hysterectomy and salpingo- oophorectomy History of breast cancer with bilateral mastectomies History of bowel surgery and ileostomy which Anemia due to blood loss and dilution Hypotension Chronic pain syndrome, patient takes opiates at home Hypokalemia Hypomagnesemia Constipation Continuing current management. Continuing with IV antibiotic. Continuing with IV fluid. Continuing with electrolyte replacement. We will give MiraLax p.r.n. and also Colace for constipation. If continuing to have abdominal pain anticipate CT abdomen pelvis. We will noticed find Dr. Apple who is a primary team regarding to her abdominal dressing and binder. Plan discussed with: Patient My Orders Orders - BERNARDINO MOHAN MD Procedure Category Date Status Time Docusate Sodium PHA 05/12/24 In Process Capsule (Colace 22:00 Polyethylene Glycol PHA 05/12/24 In Process 17g Powder (Miralax 14:45 Sertraline Hcl PHA 05/13/24 In Process (Zoloft) 10:00 Complete Blood Count LAB 05/14/24 Verified 05:00 Complete Blood Count LAB 05/15/24 Verified 05:00 Complete Blood Count LAB 05/16/24 Verified 05:00 Complete Blood Count LAB 05/17/24 Verified 05:00 * Dietary Consult CONS 05/13/24 Transmitted 09:07 Date of Service: May 13, 2024 Billing Provider: BERNARDINO MOHAN MD Common Visit Codes: [id number] INP/OBS CARE(HIGH) BERNARDINO MOHAN MD May 13, 2024 12:17
--- NOTE | 2024-05-13 22:20 | DVHPN2 ---
Progress Note - Dictate Date Seen: May 13, 2024 Medical Necessity Reason Pt with a Central, PICC or Fol: No Subjective Ms. Barrera is a 68 years old right-handed female with a history of hypertension, anemia, breast cancer, she was admitted to the [facility] on 05/07[facility]2024 for scheduled hysterectomy and oophorectomy. Post surgically, she woke up with left-sided weakness, and MRI showed multiple stroke in the right MCA territory. I have seen and examined the patient, I have discussed with her nurse, the left upper extremity muscle power is better today, otherwise no new complaints URINALYSIS, 05/11/2024: WBC: 2, URINE LEUKOCYTE ESTERASE: NEGATIVE WBC/HB/PLT/MCV, 05/04: 5.1/10.7/119/98.3 K, 05/09/2024: 3.9, 05/10/24:3.1, 05/12/2024: 3.4 LIVER FUNCTION TESTS, 05/12/2024: UNREMARKABLE TG/HDL/LDL/HDL, 05/12/2024: 196/134/75/23 TSH, 05/12/2024: 2.01 Carotid Doppler, 05/11/2024: 1. Occlusion of the right proximal ICA. 2. Greater than 50% stenosis of the right proximal ECA. 3. Greater than 50% stenosis of the left proximal ICA CT head, 05/11/2024: 1. Chronic lacunar infarct in right centrum semiovale. 2. Chronic periventricular ischemic changes. 3. Cerebral and cerebellar atrophy, likely age-related. 4. Advised further evaluation with MRI brain without contrast if clinically indicated MRI HEAD, 05/11/2024: 1. Multiple foci of restricted diffusion in the right centrum semiovale and along the right superior frontal lobe compatible with acute to subacute infarcts. There is no evidence of acute hemorrhage or significant surrounding edema. 2. Absence of flow void in the intracranial portions of the right internal carotid artery which is likely occluded. vital signs Vital Sign Date Time Temp Pulse Resp B/P (MAP) Pulse Ox O2 Delivery O2 Flow Rate FiO2 05/13/24 20:00 17 Room Air* 0 21 05/13/24 18:00 97.8 100 119/58 (78) 95 97.8 Total Intake and Output 05/12/24 05/12/24 05/13/24 15:00 23:00 07:00 Intake Total 240 ml 360 ml 300 ml Output Total 500 ml 500 ml Balance 240 ml -140 ml -200 ml medications Current Medications Medications Dose Ordered Sig/Nora Route Start Time Stop Time Status Last Admin Dose Admin Ondansetron HCl 4 mg Q4HP PRN IV 05/07/24 16:30 05/13/24 21:08 4 MG Acetaminophen 500 mg Q6HP PRN PO 05/07/24 16:30 Nitroglycerin 0.4 mg Q5MINP PRN SL 05/07/24 16:30 Morphine Sulfate 2 mg Q30M PRN IV 05/07/24 16:30 Acetaminophen/ Hydrocodone Bitart 1 tab Q4HPRN PRN PO 05/08/24 07:15 05/13/24 10:58 1 TAB Famotidine 20 mg DAILY IV 05/09/24 10:00 05/13/24 10:59 20 MG Calcium Carbonate 500 mg QIDPRN PRN PO 05/09/24 09:00 05/12/24 05:36 500 MG Acetaminophen/ Hydrocodone Bitart 1 tab Q4HP PRN PO 05/09/24 11:00 05/13/24 21:08 1 TAB Magnesium Oxide 400 mg BID PO 05/11/24 10:00 05/13/24 21:08 400 MG Metoclopramide HCl 10 mg Q6HR PRN IV 05/10/24 23:15 05/11/24 05:33 10 MG Cefazolin Sodium 50 ml @ 100 mls/hr Q8HR IV 05/11/24 22:00 05/13/24 21:07 100 MLS/HR Aspirin 81 mg DAILY PO 05/12/24 10:00 05/13/24 10:58 81 MG Docusate Sodium 100 mg BID PO 05/12/24 22:00 05/13/24 21:07 100 MG Polyethylene Glycol 17 gm DAILYPRN PRN PO 05/12/24 14:45 Sertraline HCl 50 mg DAILY PO 05/13/24 10:00 05/13/24 10:59 50 MG Atorvastatin Calcium 20 mg HS PO 05/12/24 20:45 Clopidogrel Bisulfate 75 mg DAILY PO 05/12/24 21:00 06/02/24 23:00 05/13/24 10:59 75 MG objective General: the patient is well developed and nourished. No acute distress. ABDOMEN: Status post surgery MENTAL STATUS: Awake and alert. Oriented to person, place, time and general circumstances. Able to give personal history. SPEECH, LANGUAGE, HIGHER CORTICAL FUNCTION: no aphasia or dysathria. CRANIAL NERVES: Pupils are equal, round and reactive. EOMs full and conjugate. No nystagmus. Facial sensation intact in all three divisions bilaterally. Mandibular strength intact. Mild left facial weakness of upper motor neuron pattern SENSATION: Sensation to touch and pinprick is normal. MOTOR: Normal tone in the upper and lower extremity. Normal muscle bulk. No fasciculations. No abnormal movements or posturing. Muscle strength of the major groups in the right extremities is 5/5. Muscle strength of the major groups in the left extremities is: Upper extremity: 3/5, lower extremity: 4/5. REFLEXES: Deep tendon reflexes are symmetrical. No pathological reflexes. CEREBELLAR/COORDINATION: Finger to nose is normal in the right arm GAIT/STATION: deferred laboratory and microbiology Laboratory Tests 05/13/24 06:07 05/12/24 11:19 Test 05/12/24 11:19 Range/Units Serum Glucose 120 H 74-106 mg/dL Problem List Acute right MCA territory multiple strokes Left hemiparesis Status post oophorectomy, hysterectomy Assessment/Plan Monitoring Supportive treatment Telemetry CTA head, neck Echocardiogram reports IVF Aspirin 81 mg q.d. Plavix 75 mg daily for 21 days Lipitor 20 mg daily Up to chair Physical therapy More recommendation per clinical course This medical document was created using an electronic medical record system with [employer] computerized dictation system. Although this document has been carefully reviewed, there may still be some phonetic and typographical errors. These areas are purely typographical due to imperfections of the software programs, and do not reflect any compromise in the patient's medical care Prognosis poor Dietary Evaluation Review Comments: 1) Continue to monitor pt PO intake to meet at least 75% of meals 2) Continue current plan of care Expected Outcomes/Goals: 1) F/U in 3-5 days Plan discussed with: Patient, Other Total Time (mins): 40 BRYAN FLORES MD May 13, 2024 22:19
[2024-05-13] MEDS: SODIUM CHLORIDE 0.9% 1,000 ML IV SCH (22:44)
[2024-05-14] VITALS (7 sets, daily range): BP systolic 112–144; BP diastolic 49–73; PULSE 95–105; RESP 16–22; TEMP 97.3–98.5; O2SAT 83–97
[2024-05-14 06:53] LABS: Hematocrit 30.9 % (36.0-46.0); Hemoglobin 10.8 g/dL (12.2-16.2); Mean Corpuscular Hemoglobin 30.7 pg (28.0-32.0); Mean Corpuscular Hgb Conc. 35.1 g/dL (32.0-36.0); Mean Corpuscular Volume 87.5 fL (80.0-100.0); Platelet Count (auto) 171 10^3/uL (140-450); Red Blood Cells 3.53 10^6/uL (4.0-5.20); Red Cell Distribution Width 15.7 % (11.8-14.3); White Blood Cell 11.7 10^3/uL (4.4-10.8)
[2024-05-14 07:01] LABS: Basophils % (manual) 0 (0.0-2.0); Blast Cells 0; Metamyelocytes % 0; Myelocytes % 0; Promyelocytes % 0; Reactive Lymphocytes 0
--- NOTE | 2024-05-14 07:24 | DVHSR ---
APPROVED REPORT EXAM: Two-dimensional and M-mode echocardiogram with Doppler and color Doppler. Blood Pressure: 140/83 mmHg INDICATION CVA/TIA: RISK FACTORS Height: 5' 2", Weight: 128 DIMENSIONS LVDd5.0 (3.8-5.7cm)LA (2D)3.2 (1.9-4.0cm)Aortic Root2.7 (2.0-3.7cm) LVDs3.7 (2.5-4.0cm)LA (MM) (1.9-4.0cm)Aortic Cusp Exc1.5 (1.5-2.0cm) EF (%) 52.0 (55-70%)Rt. Atrium3.2 (1.9-4.0cm)Asc. Aorta cm IVSd1.0 (0.7-1.1cm)RV (D) (1.8-2.4cm) PWd1.0 (0.7-1.1cm) Mitral Valve MitralMitral Stenosis E wave0.60m/sMV Mean GR.mmHg A wave1.10m/sMV Peak GR.mmHg E/A ratio0.52D MVAcm2 Aortic Valve Aortic ValveAortic Stenosis V11.00m/Lane Mean GR.4mmHg V21.30m/Lane Peak GR.7mmHg LVOT Diameter2.1 (1.8-2.4cm)Doppler AVA2.66cm2 Pulmonic Valve V20.80m/s Other Information Quality : Technically LimitedRhythm : Technically limited study due to body habitus, pt can not move left side due to CVA. Conclusion lvef 65% by visual estimate mild mitral regurg RV enlarged mild left atrium enlarged mild
[2024-05-14] MEDS: IOHEXOL 350 MG/ML 100ML IJ ONE (09:40)
--- NOTE | 2024-05-14 11:45 | DVH ---
EXAM: CT ANGIO HEAD/NECK HISTORY: Carotid stenosis COMPARISON: CT without IV contrast dated 05/11/2024 TECHNIQUE: CTA imaging of the head was performed through the [place] following the uneventf ul administration of intravenous contrast. Sagittal and coronal reformatted images were obtained from the source data. 3D/MIP post-processing of the source data set was performed and reviewed by the rad iologist. Radiation Dose Information: CT Dose: CTDI volume is 7.76 mGy. Dose-length product is 835.1 mGy*cm All CT scans at this medical facility are performed using dose modulation techniques as appropriate t o a performed exam including the following: Automated exposure control was utilized; adjustment of th e MA and/or KV according to patient size; and use of iterative reconstruction technique. FINDINGS: CTA Neck: Aortic Arch: Conventional branching. Scattered calcified plaques are seen. Right brachiocephalic artery: Diffuse intimal thickening with scattered mild calcified plaque formati on. Right carotid artery: Mild diffuse common carotid intimal thickening with mild scattered non flow-sherman iting calcified plaque formation. Severe calcified plaque formation at the carotid bulb. A partially calcified completely occlusive thrombus noted at the carotid bulb extending to proximal ICA measuring 1.2 cm in length. Beyond this, the cervical ICA is completely occluded. The external carotid artery is patent. Right subclavian artery: Mild diffuse intimal thickening with superimposed small scattered calcified and mixed plaques. Right vertebral artery: Patent. Mild calcified plaque formation at the V3 segment with less than 50% stenosis. Left carotid artery: Mild intimal thickening and mild calcified plaque formation in distal CCA with l ess than 50% stenosis. High-grade stenosis of the carotid bulb due to heavy calcified plaque formatio n. Short-segment, moderate narrowing of proximal ICA with at least 60% stenosis. Left subclavian artery: Mild diffuse intimal thickening with superimposed small scattered plaques. Left vertebral artery: Unremarkable. OTHER: Small right pleural effusion and mild adjacent pulmonary opacities likely compressive atelecta sis. Multilevel degenerative disc disease of the cervical spine noted. CTA Head: [place]: Trickle flow noted in the petrous segment of the right ICA. Markedly decreased flow in the right cavernous ICA. Calcified plaque formation noted in the bilateral carotid siphons withou t significant stenosis. Mild asymmetric decreased flow in the supraclinoid right ICA , right PRINCESS and right MCA. The intracranial vertebral arteries, basilar artery and bilateral posterior cerebral arter ies are patent. No aneurysm is identified. Dural venous: Grossly unremarkable. Other: None. IMPRESSION: 1. Complete occlusion of the right cervical internal carotid artery. There may be trickle flow in di stal right cervical ICA. 2. Poor flow in the right intracranial ICA likely retrograde perfusion through the contralateral left side posterior circulation through the communicating arteries. 3. High-grade stenosis at the left carotid bulb with at least 70-80% stenosis. Moderate short-segment stenosis in the left proximal ICA with at least 60% stenosis.
[2024-05-14 12:47] LABS: Band Neutrophils % (manual) 15; Eosinophils % (manual) 2 (0-7); Lymphocytes % (manual) 5 (10.0-50.0); Monocytes % (manual) 7 (0-12); Platelet Estimate Adequate
--- NOTE | 2024-05-14 14:30 | DVHPN2 ---
Subjective Patient reports having surgical site pain. Reviewed: Care Plan, H&P, Labs, Medications, Previous Orders Changes from previous H/P or p: No Changes General: Per HPI Eyes: No Pain, No Vision change, No Conjunctivae inflammation, No Eyelid inflammation, No Other, No Redness ENT: No Ear pain, No Ear discharge, No Nose pain, No Nose discharge, No Nose congestion, No Mouth pain, No Mouth swelling, No Throat pain, No Throat swelling, No Other Cardiovascular: No Chest Pain, No Palpitations, No Orthopnea, No Paroxysmal Noc. Dyspnea, No Edema, No Lt Headedness, No Other Respiratory: No Cough, No Dry, No Shortness of breath, No SOB with excertion, No Wheezing, No Hemoptysis, No Pleuritic Pain, No Sputum, No Other Gastrointestinal: Nausea Genitourinary: No Dysuria, No Frequency, No Incontinence, No Hematuria, No Retention, No Other Musculoskeletal: No other, No neck pain, No shoulder pain, No arm pain, No back pain, No hand pain, No leg pain, No foot pain Skin: No Rash, No Lesions, No Jaundice, No Bruising, No Other Objective Vitals Vital Signs Date Time Temp Pulse Resp B/P (MAP) Pulse Ox O2 Delivery O2 Flow Rate FiO2 05/14/24 09:00 97.6 103 22 123/73 (90) 83 97.6 05/14/24 08:20 Room Air* 0 21 Intake/Output Intake and Output 05/14/24 07:00 Intake Total 400 ml Output Total 625 ml Balance -225 ml Intake Oral 400 ml Output Urine Total 625 ml General Appearance: Alert, Oriented X3, Cooperative, No acute distress HEENT: Atraumatic, PERRLA Lungs: Clear to auscultation, Normal air movement Cardiovascular: Regular rate, Normal S1, Normal S2 Abdomen: Normal bowel sounds, Soft, Other (Severe tenderness generalized no rebound) Musculoskeletal: Weak motor strength LUE, Weak motor strength LLE Extremities: No edema Neuro: Other (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) Psych/Mental Status: Mental status NL, Mood NL Medications Current Medications Medications Dose Ordered Sig/Nora Route Start Time Stop Time Status Last Admin Dose Admin Ondansetron HCl 4 mg Q4HP PRN IV 05/07/24 16:30 05/13/24 21:08 4 MG Acetaminophen 500 mg Q6HP PRN PO 05/07/24 16:30 Nitroglycerin 0.4 mg Q5MINP PRN SL 05/07/24 16:30 Morphine Sulfate 2 mg Q30M PRN IV 05/07/24 16:30 Acetaminophen/ Hydrocodone Bitart 1 tab Q4HPRN PRN PO 05/08/24 07:15 05/14/24 05:35 1 TAB Famotidine 20 mg DAILY IV 05/09/24 10:00 05/14/24 11:49 20 MG Calcium Carbonate 500 mg QIDPRN PRN PO 05/09/24 09:00 05/12/24 05:36 500 MG Acetaminophen/ Hydrocodone Bitart 1 tab Q4HP PRN PO 05/09/24 11:00 05/14/24 09:50 1 TAB Magnesium Oxide 400 mg BID PO 05/11/24 10:00 05/14/24 09:51 400 MG Metoclopramide HCl 10 mg Q6HR PRN IV 05/10/24 23:15 05/11/24 05:33 10 MG Cefazolin Sodium 50 ml @ 100 mls/hr Q8HR IV 05/11/24 22:00 05/14/24 05:35 100 MLS/HR Aspirin 81 mg DAILY PO 05/12/24 10:00 05/14/24 09:51 81 MG Docusate Sodium 100 mg BID PO 05/12/24 22:00 05/14/24 09:51 100 MG Polyethylene Glycol 17 gm DAILYPRN PRN PO 05/12/24 14:45 Sertraline HCl 50 mg DAILY PO 05/13/24 10:00 05/14/24 09:51 50 MG Atorvastatin Calcium 20 mg HS PO 05/12/24 20:45 Clopidogrel Bisulfate 75 mg DAILY PO 05/12/24 21:00 06/02/24 23:00 05/14/24 09:52 75 MG Sodium Chloride 1,000 ml @ 100 mls/hr Q10H IV 05/13/24 22:15 05/13/24 22:44 100 MLS/HR Laboratory Results Laboratory Tests 05/12/24 11:19 05/14/24 05:56 Urinalysis Test 05/11/24 16:18 Urine Color Yellow (Yellow) Urine Clarity Clear (Clear) Urine pH 6.0 (5.0-9.0) Urine Specific [place] 1.020 (1.001-1.035) Urine Protein 1+ (Negative) H Urine Ketones 4+ (Negative) H Urine Blood Trace /uL (Negative) H Urine Nitrite Negative (Negative) Urine Bilirubin Negative (Negative) Urine Urobilinogen Normal mg/dL (Negative) Urine Leukocyte Esterase Negative /uL (Negative) Urine RBC 2 /hpf (0 - 4) Urine WBC 2 /hpf (0 - 5) Urine Squamous Epithelial Cells Few /hpf (<5) Urine Bacteria None seen /hpf (None Seen) Urine Mucus Few (None Seen) Urine Glucose Normal mg/dL (Normal) Microbiology Microbiology Date/Time Source Procedure Growth Status 05/11/24 16:18 Urine - [place] Urine Culture - Final Complete Labs and/or images reviewed: Labs reviewed by me, Image(s) reviewed by me Assessment/Plan Assessment/Plan Impression: Abdominal pain due to recent robotic surgery hysterectomy and salpingo- oophorectomy History of breast cancer with bilateral mastectomies History of bowel surgery and ileostomy which Anemia due to blood loss and dilution Hypotension Chronic pain syndrome, patient takes opiates at home Hypokalemia Hypomagnesemia Plan: -pain management: Stop [place], switched to Percocet, IV morphine -physical therapy -continue antibiotic therapy -repeat labs in a.m. -social service consultation for DC planning to halfway facility -PUD, DVT prophylaxis Total time spent with patient discussing and formulating plan of care: 35 minutes. This medical document was created using an electronic medical record system with [employer] dictation system. Although this document has been carefully reviewed, there may still be some phonetic and typographical errors. These areas are purely typographical due to imperfections of the software programs, and do not reflect any compromise in the patient's medical care. Plan discussed with: Patient, Other (RN) My Orders Orders - ODIN MIRANDA NP Procedure Category Date Status Time Oxycodone W/ Acet PHA 05/14/24 Verified 5/325mg Tab (Percocet 14:30 Morphine Sulfate PHA 05/14/24 Verified Injection 14:30 * Domestic Violence Counselor CONS 05/14/24 Verified Consult Date of Service: May 14, 2024 Billing Provider: ODIN MIRANDA NP Common Visit Codes: [id number] INP/OBS CARE(HIGH) ODIN MIRANDA NP May 14, 2024 14:30
[2024-05-14] MEDS: MORPHINE SULFATE INJ 2 MG/ml SYRG IV PRN (16:37)
[2024-05-14] MEDS: OXYCODONE W/ ACETAMINOPHEN 5/325MG TABLET PO PRN (18:51)
--- NOTE | 2024-05-14 21:17 | DVHPN2 ---
Progress Note - Dictate Date Seen: May 14, 2024 Medical Necessity Reason Pt with a Central, PICC or Fol: No Subjective Ms. Barrera is a 68 years old right-handed female with a history of hypertension, anemia, breast cancer, she was admitted to the [facility] on 05/07/2024 for scheduled hysterectomy and oophorectomy. Post surgically, she woke up with left-sided weakness, and MRI showed multiple stroke in the right MCA territory. I have seen and examined the patient, I have discussed with her nurse, the left upper extremity muscle power keeps improving. No new complaint URINALYSIS, 05/11/2024: WBC: 2, URINE LEUKOCYTE ESTERASE: NEGATIVE WBC/HB/PLT/MCV, 05/04: 5.1/10.7/119/98.3 K, 05/09/2024: 3.9, 05/10/24:3.1, 05/12/2024: 3.4 LIVER FUNCTION TESTS, 05/12/2024: UNREMARKABLE TG/HDL/LDL/HDL, 05/12/2024: 196/134/75/23 TSH, 05/12/2024: 2.01 Echocardiogram 05/14/2024: lvef 65% by visual estimate mild mitral regurg RV enlarged mild left atrium enlarged mild Carotid Doppler, 05/11/2024: 1. Occlusion of the right proximal ICA. 2. Greater than 50% stenosis of the right proximal ECA. 3. Greater than 50% stenosis of the left proximal ICA CT head, 05/11/2024: 1. Chronic lacunar infarct in right centrum semiovale. 2. Chronic periventricular ischemic changes. 3. Cerebral and cerebellar atrophy, likely age-related. 4. Advised further evaluation with MRI brain without contrast if clinically indicated CTA neck, head, 05/14/24: 1. Complete occlusion of the right cervical internal carotid artery. There may be trickle flow in distal right cervical ICA. 2. Poor flow in the right intracranial ICA likely retrograde perfusion through the contralateral left side posterior circulation through the communicating arteries. 3. High-grade stenosis at the left carotid bulb with at least 70-80% stenosis. Moderate short-segment stenosis in the left proximal ICA with at least 60% stenosis. MRI HEAD, 05/11/2024: 1. Multiple foci of restricted diffusion in the right centrum semiovale and along the right superior frontal lobe compatible with acute to subacute infarcts. There is no evidence of acute hemorrhage or significant surrounding edema. 2. Absence of flow void in the intracranial portions of the right internal carotid artery which is likely occluded. vital signs Vital Sign Date Time Temp Pulse Resp B/P (MAP) Pulse Ox O2 Delivery O2 Flow Rate FiO2 05/14/24 17:07 100 20 129/57 05/14/24 17:00 97.7 97 97.7 05/14/24 08:20 Room Air* 0 21 Total Intake and Output 05/13/24 05/13/24 05/14/24 15:00 23:00 07:00 Intake Total 150 ml 250 ml Output Total 275 ml 350 ml Balance -125 ml -100 ml medications Current Medications Medications Dose Ordered Sig/Nora Route Start Time Stop Time Status Last Admin Dose Admin Ondansetron HCl 4 mg Q4HP PRN IV 05/07/24 16:30 05/13/24 21:08 4 MG Acetaminophen 500 mg Q6HP PRN PO 05/07/24 16:30 Nitroglycerin 0.4 mg Q5MINP PRN SL 05/07/24 16:30 Famotidine 20 mg DAILY IV 05/09/24 10:00 05/14/24 11:49 20 MG Calcium Carbonate 500 mg QIDPRN PRN PO 05/09/24 09:00 05/12/24 05:36 500 MG Magnesium Oxide 400 mg BID PO 05/11/24 10:00 05/14/24 09:51 400 MG Metoclopramide HCl 10 mg Q6HR PRN IV 05/10/24 23:15 05/11/24 05:33 10 MG Cefazolin Sodium 50 ml @ 100 mls/hr Q8HR IV 05/11/24 22:00 05/14/24 14:33 100 MLS/HR Aspirin 81 mg DAILY PO 05/12/24 10:00 05/14/24 09:51 81 MG Docusate Sodium 100 mg BID PO 05/12/24 22:00 05/14/24 09:51 100 MG Polyethylene Glycol 17 gm DAILYPRN PRN PO 05/12/24 14:45 Sertraline HCl 50 mg DAILY PO 05/13/24 10:00 05/14/24 09:51 50 MG Atorvastatin Calcium 20 mg HS PO 05/12/24 20:45 Clopidogrel Bisulfate 75 mg DAILY PO 05/12/24 21:00 06/02/24 23:00 05/14/24 09:52 75 MG Sodium Chloride 1,000 ml @ 100 mls/hr Q10H IV 05/13/24 22:15 05/14/24 18:24 100 MLS/HR Oxycodone/ Acetaminophen 1 tab Q6HP PRN PO 05/14/24 14:30 05/14/24 18:51 1 TAB Morphine Sulfate 1 mg Q4HP PRN IV 05/14/24 14:30 05/14/24 16:37 1 MG objective General: the patient is well developed and nourished. No acute distress. ABDOMEN: Status post surgery MENTAL STATUS: Awake and alert. Oriented to person, place, time and general circumstances. Able to give personal history. SPEECH, LANGUAGE, HIGHER CORTICAL FUNCTION: no aphasia or dysathria. CRANIAL NERVES: Pupils are equal, round and reactive. EOMs full and conjugate. No nystagmus. Facial sensation intact in all three divisions bilaterally. Mandibular strength intact. Mild left facial weakness of upper motor neuron pattern SENSATION: Sensation to touch and pinprick is normal. MOTOR: Normal tone in the upper and lower extremity. Normal muscle bulk. No fasciculations. No abnormal movements or posturing. Muscle strength of the major groups in the right extremities is 5/5. Muscle strength of the major groups in the left extremities is: Upper extremity: 3-4/5, lower extremity: 4/5. REFLEXES: Deep tendon reflexes are symmetrical. No pathological reflexes. CEREBELLAR/COORDINATION: Finger to nose is normal in the right arm GAIT/STATION: deferred laboratory and microbiology Laboratory Tests 05/14/24 05:56 05/12/24 11:19 Test 05/12/24 11:19 Range/Units Serum Glucose 120 H 74-106 mg/dL Problem List Acute right MCA territory multiple strokes Left hemiparesis Right ICA occlusion Left ICA severe stenosis Status post oophorectomy, hysterectomy Assessment/Plan Monitoring Supportive treatment Telemetry Aspirin 81 mg q.d. Plavix 75 mg daily for 21 days Lipitor 20 mg daily Up to chair Physical therapy Further address bilateral carotid stenosis CLARA on discharge (See social service consult order) More recommendation per clinical course This medical document was created using an electronic medical record system with [employer] dictation system. Although this document has been carefully reviewed, there may still be some phonetic and typographical errors. These areas are purely typographical due to imperfections of the software programs, and do not reflect any compromise in the patient's medical care Prognosis poor Dietary Evaluation Review Comments: 1) Continue to monitor pt PO intake to meet at least 75% of meals 2) Continue current plan of care Expected Outcomes/Goals: 1) F/U in 3-5 days Plan discussed with: Patient, Other Total Time (mins): 40 BRYAN FLORES MD May 14, 2024 21:17
[2024-05-15] VITALS (8 sets, daily range): BP systolic 122–154; BP diastolic 52–79; PULSE 87–109; RESP 12–20; TEMP 97.4–98.3; O2SAT 95–99
[2024-05-15 06:36] LABS: Hematocrit 28.7 % (36.0-46.0); Hemoglobin 9.8 g/dL (12.2-16.2); Mean Corpuscular Hemoglobin 30.2 pg (28.0-32.0); Mean Corpuscular Hgb Conc. 34.2 g/dL (32.0-36.0); Mean Corpuscular Volume 88.3 fL (80.0-100.0); Platelet Count (auto) 207 10^3/uL (140-450); Red Blood Cells 3.25 10^6/uL (4.0-5.20); Red Cell Distribution Width 15.5 % (11.8-14.3); White Blood Cell 12.6 10^3/uL (4.4-10.8)
[2024-05-15 07:17] LABS: Basophils % (manual) 0 (0.0-2.0); Blast Cells 0; Eosinophils % (manual) 0 (0-7); Metamyelocytes % 0; Myelocytes % 0; Promyelocytes % 0; Reactive Lymphocytes 0
[2024-05-15 09:49] LABS: Band Neutrophils % (manual) 31; Lymphocytes % (manual) 5 (10.0-50.0); Monocytes % (manual) 6 (0-12); Platelet Estimate Adequate
[2024-05-15] MEDS: POLYETHYLENE GLYCOL 17 GM PWDR PO PRN (12:59)
[2024-05-15 14:24] LABS: Chloride 104 mmol/L (98-107); Potassium 3.2 mmol/L (3.5-5.1); Sodium 134 mmol/L (136-145)
[2024-05-15 14:25] LABS: Anion Gap 11 (5-15); Carbon Dioxide 19 mmol/L (20-31)
[2024-05-15 14:26] LABS: Calcium 8.3 mg/dL (8.7-10.4)
[2024-05-15 14:30] LABS: BUN/Creatinine Ratio 20.8 (10.0-20.0); Blood Urea Nitrogen 11 mg/dL (9-23); Glucose 102 mg/dL (74-106)
[2024-05-15 14:31] LABS: Magnesium 2.2 mg/dL (1.6-2.6)
[2024-05-15] MEDS ORDERED: POTASSIUM CHLORIDE 40 MEQ in SOD CHL 0.45% 1,000 ML IV SCH (15:00)
--- NOTE | 2024-05-15 15:00 | DVHPN2 ---
Subjective Patient reports having distended abdomen. Also has persistent abdominal pain. Reviewed: Care Plan, H&P, Labs, Medications, Previous Orders Changes from previous H/P or p: Changes General: Per HPI Eyes: No Pain, No Vision change, No Conjunctivae inflammation, No Eyelid inflammation, No Other, No Redness ENT: No Ear pain, No Ear discharge, No Nose pain, No Nose discharge, No Nose congestion, No Mouth pain, No Mouth swelling, No Throat pain, No Throat swelling, No Other Cardiovascular: No Chest Pain, No Palpitations, No Orthopnea, No Paroxysmal Noc. Dyspnea, No Edema, No Lt Headedness, No Other Respiratory: No Cough, No Dry, No Shortness of breath, No SOB with excertion, No Wheezing, No Hemoptysis, No Pleuritic Pain, No Sputum, No Other Gastrointestinal: Nausea Genitourinary: No Dysuria, No Frequency, No Incontinence, No Hematuria, No Retention, No Other Musculoskeletal: No other, No neck pain, No shoulder pain, No arm pain, No back pain, No hand pain, No leg pain, No foot pain Skin: No Rash, No Lesions, No Jaundice, No Bruising, No Other Objective Vitals Vital Signs Date Time Temp Pulse Resp B/P (MAP) Pulse Ox O2 Delivery O2 Flow Rate FiO2 05/15/24 13:30 84 18 132/52 05/15/24 13:00 98.0 95 98.0 05/15/24 08:00 Room Air* 0 21 Intake/Output Intake and Output 05/15/24 07:00 Intake Total 3450 ml Output Total 1375 ml Balance 2075 ml Intake Oral 2100 ml IV Total 1350 ml Output Urine Total 1375 ml General Appearance: Alert, Oriented X3, Cooperative, No acute distress HEENT: Atraumatic, PERRLA Lungs: Clear to auscultation, Normal air movement Cardiovascular: Regular rate, Normal S1, Normal S2 Abdomen: Normal bowel sounds, Soft, Other (Severe tenderness generalized no rebound) Musculoskeletal: Weak motor strength LUE, Weak motor strength LLE Extremities: No edema Neuro: Other (Left arm weakness including 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 buckle assembler and proximal muscles) Psych/Mental Status: Mental status NL, Mood NL Medications Current Medications Medications Dose Ordered Sig/Nora Route Start Time Stop Time Status Last Admin Dose Admin Ondansetron HCl 4 mg Q4HP PRN IV 05/07/24 16:30 05/15/24 12:59 4 MG Acetaminophen 500 mg Q6HP PRN PO 05/07/24 16:30 Nitroglycerin 0.4 mg Q5MINP PRN SL 05/07/24 16:30 Famotidine 20 mg DAILY IV 05/09/24 10:00 05/15/24 09:29 20 MG Calcium Carbonate 500 mg QIDPRN PRN PO 05/09/24 09:00 05/12/24 05:36 500 MG Magnesium Oxide 400 mg BID PO 05/11/24 10:00 05/15/24 08:37 400 MG Metoclopramide HCl 10 mg Q6HR PRN IV 05/10/24 23:15 05/11/24 05:33 10 MG Aspirin 81 mg DAILY PO 05/12/24 10:00 05/15/24 08:37 81 MG Docusate Sodium 100 mg BID PO 05/12/24 22:00 05/15/24 08:36 100 MG Polyethylene Glycol 17 gm DAILYPRN PRN PO 05/12/24 14:45 05/15/24 12:59 17 GM Sertraline HCl 50 mg DAILY PO 05/13/24 10:00 05/15/24 08:37 50 MG Atorvastatin Calcium 20 mg HS PO 05/12/24 20:45 Clopidogrel Bisulfate 75 mg DAILY PO 05/12/24 21:00 06/02/24 23:00 05/15/24 08:37 75 MG Oxycodone/ Acetaminophen 1 tab Q6HP PRN PO 05/14/24 14:30 05/15/24 01:51 1 TAB Morphine Sulfate 1 mg Q4HP PRN IV 05/14/24 14:30 05/15/24 12:57 1 MG Piperacillin Sod/ Tazobactam Sod 100 ml @ 25 mls/hr Q8HR IV 05/15/24 22:00 UNV Laboratory Results Laboratory Tests 05/15/24 05:53 Chemistry Test 05/15/24 05:53 Calcium Level 8.3 mg/dL (8.7-10.4) L Magnesium Level 2.2 mg/dL (1.6-2.6) Urinalysis Test 05/11/24 16:18 Urine Color Yellow (Yellow) Urine Clarity Clear (Clear) Urine pH 6.0 (5.0-9.0) Urine Specific [place] 1.020 (1.001-1.035) Urine Protein 1+ (Negative) H Urine Ketones 4+ (Negative) H Urine Blood Trace /uL (Negative) H Urine Nitrite Negative (Negative) Urine Bilirubin Negative (Negative) Urine Urobilinogen Normal mg/dL (Negative) Urine Leukocyte Esterase Negative /uL (Negative) Urine RBC 2 /hpf (0 - 4) Urine WBC 2 /hpf (0 - 5) Urine Squamous Epithelial Cells Few /hpf (<5) Urine Bacteria None seen /hpf (None Seen) Urine Mucus Few (None Seen) Urine Glucose Normal mg/dL (Normal) Microbiology Microbiology Date/Time Source Procedure Growth Status 05/11/24 16:18 Urine - [place] Urine Culture - Final Complete Labs and/or images reviewed: Labs reviewed by me, Image(s) reviewed by me Assessment/Plan Assessment/Plan Impression: Abdominal pain due to recent robotic surgery hysterectomy and salpingo- oophorectomy History of breast cancer with bilateral mastectomies History of bowel surgery and ileostomy which Anemia due to blood loss and dilution Hypotension Chronic pain syndrome, patient takes opiates at home Hypokalemia Hypomagnesemia Plan: Events: Patient has worsening distention with abdomen. Continues to have abdominal pain. -CT scan of the abdomen and pelvis without contrast -start Zosyn -pain management: Stop Sleepy Eye, switched to Percocet, IV morphine -physical therapy -potassium replacement -repeat labs in a.m. -social service consultation for DC planning to senior care facility -PUD, DVT prophylaxis Total time spent with patient discussing and formulating plan of care: 35 minutes. This medical document was created using an electronic medical record system with [employer] dictation system. Although this document has been carefully reviewed, there may still be some phonetic and typographical errors. These areas are purely typographical due to imperfections of the software programs, and do not reflect any compromise in the patient's medical care. Plan discussed with: Patient, Other (RN) My Orders Orders - ODIN MIRANDA [employer]S EXAMINER Procedure Category Date Status Time Ct Ab Pel Wo Con-No CT 05/15/24 Logged Oral Or Iv 14:23 Piperacillin-Tazob PHA 05/15/24 Logged 3.375gm (Zosyn 3.375g 22:00 Comprehensive LAB 05/16/24 Verified Metabolic Panel 04:00 Date of Service: May 15, 2024 Billing Provider: ODIN MIRANDA NP Common Visit Codes: [id number] INP/OBS CARE(HIGH) ODIN MIRANDA NP May 15, 2024 15:00
--- NOTE | 2024-05-15 16:04 | DVH ---
Exam: CT CT AB PEL WO CON-NO ORAL OR IV History: ILEUS, SEVERE DISTENTION Comparison Study: None Technique: Multidetector spiral CT of the abdomen was performed from lung bases to pubic symphysis. Imaging was performed without IV contrast. Axial, coronal and sagittal multiplanar reformats were ob tained from the axial data set by the technologist. Radiation dose : . Abdomen/Pelvis: CTDIvol 9.77 mGy, DLP 630.24 mGy*cm. Findings: Evaluation of solid organs is limited due to lack of intravenous contrast use. Lung Bases: Small bilateral pleural effusions right greater than left. Bilateral basilar atelectasis and consolidation. Liver: The liver is normal in size. No focal lesions. Gallbladder and biliary Tree: There is slight in the gallbladder. Spleen: Unremarkable Pancreas: The pancreas is grossly normal in appearance. Adrenal Glands: Unremarkable Kidneys: There is a left renal cyst. There is [id number] hydronephrosis. Bladder: Grossly unremarkable for degree of distention. Bowel: There is a Shannon catheter in place. Small bowel loops are dilated with air fluid levels.: Is d ecompressed. The appendix is not visualized; however, no secondary findings of acute appendicitis id entified. Ascites: There is free fluid and free air in the peritoneum. Lymphadenopathy: No mesenteric, retroperitoneal or periportal lymphadenopathy. Abdominal wall and Mesentery: Extensive subcutaneous emphysema. Vasculature: Calcified atherosclerotic disease is noted Pelvic Organs: Unremarkable Musculoskeletal: No aggressive focal bony lesions, acute fractures or dislocation. IMPRESSION: 1. Small bowel obstruction with evidence of perforation including free intraperitoneal fluid and air. Extensive subcutaneous emphysema likely secondary to bowel perforation. Critical Result: Small bowel obstruction with evidence of perforation with free intraperitoneal fluid and air Findings discussed with Nurse Pop taking care of the patient at 05/15/2024 03:54 PM, and acknowle dged receipt and understanding of the findings. .. Radiation optimization: All CT scans at this facility use at least one of these dose optimization gumaro hniques: Automated exposure control mA and/or kV adjustment per patient size (includes targeted exams where dose is matched to clinical indication) or iterative reconstruction. HS:Y
--- NOTE | 2024-05-15 18:00 | CODING ---
Date of Service: May 15, 2024 Billing Provider: ODIN MIRANDA NP Common Visit Codes: [id number] CARE 30-74 MIN ODIN MIRANDA NP May 15, 2024 18:00
[2024-05-15] MEDS: LACTATED RINGER'S 1,000 ML IV SCH (18:36)
--- NOTE | 2024-05-15 19:08 | DVH ---
CHEST RADIOGRAPH Indication:ng tube placement Technique: Single frontal view of the chest was obtained Comparison: None FINDINGS: Lines and Tubes: Port-A-Cath in place from the right with the tip in the superior vena cava near the cavoatrial junction. There is no pneumothorax on the right. Enteric tube below the left diaphragm in the stomach. Lungs: No focal consolidation. Pleura: No effusion. No pneumothorax. Cardiomediastinal contours: Unremarkable Bones: No acute osseous abnormality. IMPRESSION: 1. Port-A-Cath in place from the right with the tip near the cavoatrial junction. 2. No pneumothorax on the right. 3. Enteric tube below the left diaphragm in the stomach.
[2024-05-15] MEDS: PIPERACILLIN-TAZOB 3.375GM 100 ML IV SCH (21:12)
[2024-05-15] MEDS: MORPHINE SULFATE INJ 2 MG/ml SYRG IV PRN (21:13)
--- NOTE | 2024-05-15 21:41 | DVHPN2 ---
Progress Note - Dictate Date Seen: May 15, 2024 Medical Necessity Reason Pt with a Central, PICC or Fol: No Subjective Ms. Barrera is a 68 years old right-handed female with a history of hypertension, anemia, breast cancer, she was admitted to the [facility] on 05/07/2024 for scheduled hysterectomy and oophorectomy. Post surgically, she woke up with left-sided weakness, and MRI showed multiple stroke in the right MCA territory. I have seen and examined the patient, I have discussed with her nurse, the left upper extremity muscle power keeps improving. No new complaint I have Discussed with her social work Re: Neurosurgery/vascular consultation URINALYSIS, 05/11/2024: WBC: 2, URINE LEUKOCYTE ESTERASE: NEGATIVE WBC/HB/PLT/MCV, 05/04: 5.1/10.7/119/98.3 K, 05/09/2024: 3.9, 05/10/24:3.1, 05/12/2024: 3.4 LIVER FUNCTION TESTS, 05/12/2024: UNREMARKABLE TG/HDL/LDL/HDL, 05/12/2024: 196/134/75/23 TSH, 05/12/2024: 2.01 Echocardiogram 05/14/2024: lvef 65% by visual estimate mild mitral regurg RV enlarged mild left atrium enlarged mild Carotid Doppler, 05/11/2024: 1. Occlusion of the right proximal ICA. 2. Greater than 50% stenosis of the right proximal ECA. 3. Greater than 50% stenosis of the left proximal ICA CT head, 05/11/2024: 1. Chronic lacunar infarct in right centrum semiovale. 2. Chronic periventricular ischemic changes. 3. Cerebral and cerebellar atrophy, likely age-related. 4. Advised further evaluation with MRI brain without contrast if clinically indicated CT abdomen/pelvis, 05/15/2024: Small bowel obstruction with evidence of perforation including free intraperitoneal fluid and air. Extensive subcutaneous emphysema likely secondary to bowel perforation CTA neck, head, 05/14/24: 1. Complete occlusion of the right cervical internal carotid artery. There may be trickle flow in distal right cervical ICA. 2. Poor flow in the right intracranial ICA likely retrograde perfusion through the contralateral left side posterior circulation through the communicating arteries. 3. High-grade stenosis at the left carotid bulb with at least 70-80% stenosis. Moderate short-segment stenosis in the left proximal ICA with at least 60% stenosis. MRI HEAD, 05/11/2024: 1. Multiple foci of restricted diffusion in the right centrum semiovale and along the right superior frontal lobe compatible with acute to subacute infarcts. There is no evidence of acute hemorrhage or significant surrounding edema. 2. Absence of flow void in the intracranial portions of the right internal carotid artery which is likely occluded. vital signs Vital Sign Date Time Temp Pulse Resp B/P (MAP) Pulse Ox O2 Delivery O2 Flow Rate FiO2 05/15/24 21:13 87 16 154/56 05/15/24 17:00 97.4 97 97.4 05/15/24 08:00 Room Air* 0 21 Total Intake and Output 05/14/24 05/14/24 05/15/24 15:00 23:00 07:00 Intake Total 900 ml 2550 ml Output Total 350 ml 1025 ml Balance 550 ml 1525 ml medications Current Medications Medications Dose Ordered Sig/Nora Route Start Time Stop Time Status Last Admin Dose Admin Ondansetron HCl 4 mg Q4HP PRN IV 05/07/24 16:30 05/15/24 21:13 4 MG Nitroglycerin 0.4 mg Q5MINP PRN SL 05/07/24 16:30 Famotidine 20 mg DAILY IV 05/09/24 10:00 05/15/24 09:29 20 MG Metoclopramide HCl 10 mg Q6HR PRN IV 05/10/24 23:15 05/11/24 05:33 10 MG Polyethylene Glycol 17 gm DAILYPRN PRN PO 05/12/24 14:45 05/15/24 12:59 17 GM Sertraline HCl 50 mg DAILY PO 05/13/24 10:00 05/15/24 08:37 50 MG Oxycodone/ Acetaminophen 1 tab Q6HP PRN PO 05/14/24 14:30 05/15/24 01:51 1 TAB Piperacillin Sod/ Tazobactam Sod 100 ml @ 25 mls/hr Q8HR IV 05/15/24 22:00 05/15/24 21:12 25 MLS/HR Lactated Ringer's 1,000 ml @ 125 mls/hr Q8H IV 05/15/24 17:45 05/15/24 18:36 125 MLS/HR Morphine Sulfate 2 mg Q4HPRN PRN IV 05/15/24 17:45 05/15/24 21:13 2 MG objective General: the patient is well developed and nourished. No acute distress. ABDOMEN: Status post surgery MENTAL STATUS: Awake and alert. Oriented to person, place, time and general circumstances. Able to give personal history. SPEECH, LANGUAGE, HIGHER CORTICAL FUNCTION: no aphasia or dysathria. CRANIAL NERVES: Pupils are equal, round and reactive. EOMs full and conjugate. No nystagmus. Facial sensation intact in all three divisions bilaterally. Mandibular strength intact. Mild left facial weakness of upper motor neuron pattern SENSATION: Sensation to touch and pinprick is normal. MOTOR: Normal tone in the upper and lower extremity. Normal muscle bulk. No fasciculations. No abnormal movements or posturing. Muscle strength of the major groups in the right extremities is 5/5. Muscle strength of the major groups in the left extremities is: Upper extremity: 3-4/5, lower extremity: 4/5. REFLEXES: Deep tendon reflexes are symmetrical. No pathological reflexes. CEREBELLAR/COORDINATION: Finger to nose is normal in the right arm GAIT/STATION: deferred laboratory and microbiology Laboratory Tests 05/15/24 05:53 Test 05/15/24 05:53 Range/Units Serum Glucose 102 74-106 mg/dL Problem List Acute right MCA territory multiple strokes Left hemiparesis Right ICA occlusion Left ICA severe stenosis Status post oophorectomy, hysterectomy Assessment/Plan Monitoring Supportive treatment Telemetry Aspirin 81 mg q.d. Plavix 75 mg daily for 21 days Lipitor 20 mg daily Up to chair Physical therapy Further address bilateral carotid stenosis CLARA on discharge More recommendation per clinical course This medical document was created using an electronic medical record system with [employer] dictation system. Although this document has been carefully reviewed, there may still be some phonetic and typographical errors. These areas are purely typographical due to imperfections of the software programs, and do not reflect any compromise in the patient's medical care Dietary Evaluation Review Comments: 1) Continue to monitor pt PO intake to meet at least 75% of meals 2) Continue current plan of care Expected Outcomes/Goals: 1) F/U in 3-5 days Plan discussed with: Other BRYAN FLORES MD May 15, 2024 21:41
[2024-05-16] VITALS (77 sets, daily range): BP systolic 56–186; BP diastolic 35–111; PULSE 95–142; RESP 12–50; TEMP 97–101.1; O2SAT 78–100
[2024-05-16 04:30] LABS: Hemoglobin 10.4 g/dL (12.2-16.2); Mean Corpuscular Hemoglobin 30.2 pg (28.0-32.0); Mean Corpuscular Hgb Conc. 34.7 g/dL (32.0-36.0); Platelet Count (auto) 275 10^3/uL (140-450); Red Blood Cells 3.45 10^6/uL (4.0-5.20); Red Cell Distribution Width 15.6 % (11.8-14.3); White Blood Cell 7.5 10^3/uL (4.4-10.8)
[2024-05-16 04:41] LABS: Alkaline Phosphatase 81 U/L (46-116); Anion Gap 15 (5-15); Aspartate Aminotransferase 11 U/L (13-40); BUN/Creatinine Ratio 14.5 (10.0-20.0); Bilirubin, Total 0.8 mg/dL (0.2-1.0); Blood Urea Nitrogen 10 mg/dL (9-23); Calcium 8.5 mg/dL (8.7-10.4); Carbon Dioxide 18 mmol/L (20-31); Chloride 102 mmol/L (98-107); Glucose 125 mg/dL (74-106); Potassium 2.8 mmol/L (3.5-5.1); Sodium 135 mmol/L (136-145); Total Protein 5.6 g/dL (5.7-8.2)
[2024-05-16 04:45] LABS: Band Neutrophils % (manual) 0; Basophils % (manual) 0 (0.0-2.0); Blast Cells 0; Eosinophils % (manual) 0 (0-7); Metamyelocytes % 0; Myelocytes % 0; Promyelocytes % 0; Reactive Lymphocytes 0
--- NOTE | 2024-05-16 04:50 | DVHPN2 ---
Progress Note - Dictate Date Seen: May 16, 2024 Has the PT tested + for MRSA If YES, has PT been informed?: No Medical Necessity Reason Pt with a Central, PICC or Fol: No Subjective No significant change since last night, patient resting comfortably NG in place bilious fluid; had a long talk with her about the importance of getting up out of bed the that was critical in getting her bowels to move. Patient agrees to work with PT and get out of bed. vital signs Vital Sign Date Time Temp Pulse Resp B/P (MAP) Pulse Ox O2 Delivery O2 Flow Rate FiO2 05/16/24 02:30 95 16 130/53 (78) 95 05/16/24 00:00 98.4 98.4 05/15/24 19:30 Room Air* 0 21 Total Intake and Output 05/15/24 05/15/24 05/16/24 15:00 23:00 07:00 Intake Total 1100 ml 500 ml Output Total 600 ml Balance 500 ml 500 ml medications Current Medications Medications Dose Ordered Sig/Nora Route Start Time Stop Time Status Last Admin Dose Admin Ondansetron HCl 4 mg Q4HP PRN IV 05/07/24 16:30 05/16/24 01:05 4 MG Famotidine 20 mg DAILY IV 05/09/24 10:00 05/15/24 09:29 20 MG Metoclopramide HCl 10 mg Q6HR PRN IV 05/10/24 23:15 05/11/24 05:33 10 MG Polyethylene Glycol 17 gm DAILYPRN PRN PO 05/12/24 14:45 05/15/24 12:59 17 GM Sertraline HCl 50 mg DAILY PO 05/13/24 10:00 05/15/24 08:37 50 MG Oxycodone/ Acetaminophen 1 tab Q6HP PRN PO 05/14/24 14:30 05/15/24 01:51 1 TAB Piperacillin Sod/ Tazobactam Sod 100 ml @ 25 mls/hr Q8HR IV 05/15/24 22:00 05/15/24 21:12 25 MLS/HR Lactated Ringer's 1,000 ml @ 125 mls/hr Q8H IV 05/15/24 17:45 05/16/24 01:45 125 MLS/HR Morphine Sulfate 2 mg Q4HPRN PRN IV 05/15/24 17:45 05/16/24 01:14 2 MG objective She is alert awake oriented x3, lungs are clear, abdomen distended, hyper active bowel sounds wounds clean dry intact extremities 1 2+ ankle edema bilaterally. No calf pain laboratory and microbiology Laboratory Tests 05/16/24 03:20 Test 05/16/24 03:20 Range/Units Serum Glucose Pending Problem List Postop day 9, bowel obstruction, bowel perforation per CT 05/15 Assessment/Plan Postop day 9 ; PT to get patient up in chairBuzz General Surgeon will evaluate / treat/make recommendations to day confirmed. Continue low wall suction NG. Dietary Evaluation Review Comments: 1) Continue NPO 2) Continue current plan of care NPO Plan discussed with: Patient ANDRES PAZ May 16, 2024 04:50
[2024-05-16 04:52] LABS: Alanine Aminotransferase < 9 U/L (7-40)
--- NOTE | 2024-05-16 05:05 | DVHINCON2 ---
Date of service: May 16, 2024 Allergies: Coded Allergies: Sulfa Antibiotics (Unverified Allergy, Unknown, 05/04/24) Statins (Unverified Adverse Reaction, Intermediate, muscle aches, 05/04/24) Home Meds Reported Medications Sertraline Hcl (Zoloft) 50 Mg Tab, 50 MG PO DAILY, TAB 05/04/24 Sertraline Hcl (Zoloft) 25 Mg Tab, 1 TAB PO DAILY, #30 TAB 1 Refill 05/04/24 Ciprofloxacin Hcl (Cipro) 500 Mg Tab, 500 MG PO BID, TAB 05/04/24 Tamoxifen Citrate (Tamoxifen Citrate) 20 Mg Tab, 20 MG PO DAILY, TAB 05/04/24 Current Medications Current Medications Medications (Trade) Dose Ordered Sig/Nora Route PRN Reason Start Time Stop Time Status Last Admin Piperacillin Sod/ Tazobactam Sod 100 ml @ 25 mls/hr Q8HR IV 05/15/24 22:00 05/15/24 21:12 Potassium Chloride 40 meq/ Sodium Chloride 1,020 ml @ 60 mls/hr Q17H IV 05/15/24 15:00 05/15/24 17:41 DC Lactated Ringer's 1,000 ml @ 125 mls/hr Q8H IV 05/15/24 17:45 05/16/24 01:45 Morphine Sulfate 2 mg Q4HPRN PRN IV SEVERE PAIN (7-10 PAIN SCALE) 05/15/24 17:45 05/16/24 01:14 Vital Signs Vital Signs Date Time Temp Pulse Resp B/P (MAP) Pulse Ox O2 Delivery O2 Flow Rate FiO2 05/16/24 02:30 95 16 130/53 (78) 95 05/16/24 00:00 98.4 98.4 05/15/24 19:30 Room Air* 0 21 Labs/Diagnostic Data Labs Test 05/16/24 03:20 05/15/24 05:53 05/12/24 11:19 05/11/24 16:18 Range/Units White Blood Count 7.5 # 4.4-10.8 10^3/uL Red Blood Count 3.45 L 4.0-5.20 10^6/uL Hemoglobin 10.4 L 12.2-16.2 g/dL Hematocrit 30.0 L 36.0-46.0 % Mean Corpuscular Volume 87.0 80.0-100.0 fL Mean Corpuscular Hemoglobin 30.2 28.0-32.0 pg Mean Corpuscular Hemoglobin Concent 34.7 32.0-36.0 g/dL Red Cell Distribution Width 15.6 H 11.8-14.3 % Platelet Count 275 140-450 10^3/uL Mean Platelet Volume 7.0 6.9-10.8 fL Neutrophils (%) (Auto) 37.0-80.0 % Lymphocytes (%) (Auto) 10.0-50.0 % Monocytes (%) (Auto) 0.0-12.0 % Eosinophils (%) (Auto) 0.0-7.0 % Basophils (%) (Auto) 0.0-2.0 % Neutrophils # (Auto) 1.6-8.6 10 ^3/uL Lymphocytes # (Auto) 0.4-5.4 10 ^3/uL Monocytes # (Auto) 0-1.3 10 ^3/uL Eosinophils # (Auto) 0-0.8 10 ^3/uL Basophils # (Auto) 0-0.2 10 ^3/uL Nucleated Red Blood Cells % Magnesium Level 2.2 1.6-2.6 mg/dL Triglycerides Level 196 H < 150 mg/dL Cholesterol Level 134 < 200 mg/dL LDL Cholesterol 75 < 100 mg/dL HDL Cholesterol 23 L 40-59 mg/dL Thyroid Stimulating Hormone (TSH) 2.01 0.55-4.78 uIU/mL Urine Color Yellow Yellow Urine Clarity Clear Clear Urine pH 6.0 5.0-9.0 Urine Specific [place] 1.020 1.001-1.035 Urine Protein 1+ H Negative Urine Ketones 4+ H Negative Urine Blood Trace H Negative /uL Urine Nitrite Negative Negative Urine Bilirubin Negative Negative Urine Urobilinogen Normal Negative mg/dL Urine Leukocyte Esterase Negative Negative /uL Urine RBC 2 0 - 4 /hpf Urine WBC 2 0 - 5 /hpf Urine Squamous Epithelial Cells Few <5 /hpf Urine Bacteria None seen None Seen /hpf Urine Mucus Few None Seen Urine Glucose Normal Normal mg/dL Test 05/08/24 21:08 Range/Units Red Blood Cell Morphology Normal Microbiology Date/Time Source Procedure Growth Status 05/11/24 16:18 Urine - [place] Urine Culture - Final Complete Assessment [id number] R/O SBO R/O BOWEL PERFORATION 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 PROCEDURE 05/07/24 AFEBRILE VSS ABD SOFT MILD DISTENSION MILD TENDERNESS RIGHT ABD NO BM FLATUS + WBC ELEVATED LACTATE WNL CT SCAN ABD PNEUMOPERITONEUM POSSIBLE CONTAINED OR FREE BOWEL PERFORATION POSSIBLE RESIDUAL AIR RETENTION FROM RECENT ROBOTIC/ LAP SURGERY CLOSE OBSERVATION REPEAT CT SCAN ABD PELVIS WITH PO AND IV CONTRAST STAT TO DETERMINE THE NEED FOR SURGERY CONSIDER URGENT E LAP POSSIBLE BOWEL RESECTION COLOSTOMY BASED ON ONGOING EVAL PT AWARE AND ALL QUESTIONS ANSWERED AGREES WITH THE PLAN NURSE AT BEDSIDE DR PAZ AWARE AND WILL EVALUATE Plan discussed with: Patient SHEY COVARRUBIAS MD May 16, 2024 05:05
--- NOTE | 2024-05-16 05:07 | DVH ---
CHEST RADIOGRAPH Indication:ngt insertion Technique: Single frontal view of the chest was obtained Comparison: XY CHEST PORTABLE on DOS: 05/15/24 FINDINGS: Lines and Tubes: Right infusion catheter with its tip terminating in the right atrium. Enteric tube t erminates below the hemidiaphragm in the region of the stomach. Lungs: Elevated right hemidiaphragm. Lung peraza otherwise clear. Pleura: No effusion. No pneumothorax. Cardiomediastinal contours: Unremarkable Bones: No acute osseous abnormality. IMPRESSION: 1. Enteric tube terminates in the region of the stomach.
[2024-05-16] MEDS: OMNIPAQUE 12mg/ml 500ml ORAL SOLUTION PO ONE ×2 (05:59→06:24)
[2024-05-16] MEDS: PHENYLEPHRINE IV 250 ML IV SCH (06:03)
[2024-05-16] MEDS ORDERED: POTASSIUM CHL 20MEQ/100ML 100 ML IV SCH (06:15)
[2024-05-16 06:58] LABS: INR 1.71 (0.9-1.15); Partial Thromboplastin Time 34.2 SEC (24.5-34.5); Prothrombin Time 17.4 sec (9.3-11.8)
[2024-05-16] MEDS: GASTROGRAFIN 30 ML SOL ONE (07:00)
[2024-05-16] MEDS: POTASSIUM CHL 20MEQ/100ML 100 ML IV SCH (07:03)
[2024-05-16] MEDS ORDERED: EPINEPHrine HCL 1 MG/1 ML AMP ONE (07:21)
[2024-05-16] MEDS ORDERED: PHENYLEPHRINE HCL 10 MG/ML VL ONE (07:21)
[2024-05-16 08:56] LABS: Lymphocytes % (manual) 3 (10.0-50.0); Monocytes % (manual) 9 (0-12); Platelet Estimate Adequate
--- NOTE | 2024-05-16 09:01 | DVHPN2 ---
Progress Note - Dictate Date Seen: May 16, 2024 Has the PT tested + for MRSA If YES, has PT been informed?: No Medical Necessity Reason Pt with a Central, PICC or Fol: No Subjective Ms. Barrera is a 68 years old right-handed female with a history of hypertension, anemia, breast cancer, she was admitted to the [facility] on 05/07/2024 for scheduled hysterectomy and oophorectomy. Post surgically, she woke up with left-sided weakness, and MRI showed multiple stroke in the right MCA territory. I have seen and examined the patient in the ICU, I have discussed with her nurse, her sister in the room with her. At that time, she is alert, oriented times three, but she has confusion spells, she sometimes to poor her lines The case discussed with Mynor I have Discussed with her social work Re: Neurosurgery/vascular consultation URINALYSIS, 05/11/2024: WBC: 2, URINE LEUKOCYTE ESTERASE: NEGATIVE WBC/HB/PLT/MCV, 05/04: 5.1/10.7/119/98.3 PT/INR/FTT, 05/16/2024: 17.4/1.71/34.2 K, 05/09/2024: 3.9, 05/10/24:3.1, 05/12/2024: 3.4, 05/16/2024: 2.8 Lactic acid, 05/15/2024: 1.6, 05/16/2024: 1.5 LIVER FUNCTION TESTS, 05/12/2024: UNREMARKABLE, 05/16/2024: Unremarkable TG/HDL/LDL/HDL, 05/12/2024: 196/134/75/23 TSH, 05/12/2024: 2.01 Echocardiogram 05/14/2024: lvef 65% by visual estimate mild mitral regurg RV enlarged mild left atrium enlarged mild Carotid Doppler, 05/11/2024: 1. Occlusion of the right proximal ICA. 2. Greater than 50% stenosis of the right proximal ECA. 3. Greater than 50% stenosis of the left proximal ICA CT head, 05/11/2024: 1. Chronic lacunar infarct in right centrum semiovale. 2. Chronic periventricular ischemic changes. 3. Cerebral and cerebellar atrophy, likely age-related. 4. Advised further evaluation with MRI brain without contrast if clinically indicated CT abdomen/pelvis, 05/15/2024: Small bowel obstruction with evidence of perforation including free intraperitoneal fluid and air. Extensive subcutaneous emphysema likely secondary to bowel perforation CT abdomen/pelvis, 05/16/2024: 1. Sequelae of recent postsurgical changes as described above. Correlate with surgical history. 2. Pneumoperitoneum and free fluid in the abdomen and pelvis. 3. Large collection containing fluid and gas, predominantly in the right hemiabdomen. There is GI contrast extending into this collection from an adjacent small bowel loop. There is a component of this collection extending adjacent to the anterior superior aspect of the liver. 4. Moderate right hydronephrosis and hydroureter. The distal right ureter appears to be compressed by the large fluid collection in the right hemiabdomen. No obstructing calculus. 5. Dilated small bowel loops in the left hemiabdomen with suspected small-bowel obstruction. 6. Prominent subcutaneous edema in the ventral abdominal wall and extending caudally into the inguinal regions bilaterally, peroneal region, and anterior aspect of the left thigh. 7. Small bilateral pleural effusions with overlying atelectasis. 8. Additional findings as detailed above. CTA neck, head, 05/14/24: 1. Complete occlusion of the right cervical internal carotid artery. There may be trickle flow in distal right cervical ICA. 2. Poor flow in the right intracranial ICA likely retrograde perfusion through the contralateral left side posterior circulation through the communicating arteries. 3. High-grade stenosis at the left carotid bulb with at least 70-80% stenosis. Moderate short-segment stenosis in the left proximal ICA with at least 60% stenosis. MRI HEAD, 05/11/2024: 1. Multiple foci of restricted diffusion in the right centrum semiovale and along the right superior frontal lobe compatible with acute to subacute infarcts. There is no evidence of acute hemorrhage or significant surrounding edema. 2. Absence of flow void in the intracranial portions of the right internal carotid artery which is likely occluded. vital signs Vital Sign Date Time Temp Pulse Resp B/P (MAP) Pulse Ox O2 Delivery O2 Flow Rate FiO2 05/16/24 07:30 103 26 155/66 (95) 98 05/16/24 06:00 Room Air* 0 21 05/16/24 04:00 98.7 98.7 Total Intake and Output 05/15/24 05/15/24 05/16/24 15:00 23:00 07:00 Intake Total 1100 ml 1675 ml Output Total 600 ml 1300 ml Balance 500 ml 375 ml medications Current Medications Medications Dose Ordered Sig/Nora Route Start Time Stop Time Status Last Admin Dose Admin Ondansetron HCl 4 mg Q4HP PRN IV 05/07/24 16:30 05/16/24 05:55 4 MG Famotidine 20 mg DAILY IV 05/09/24 10:00 05/15/24 09:29 20 MG Metoclopramide HCl 10 mg Q6HR PRN IV 05/10/24 23:15 05/11/24 05:33 10 MG Polyethylene Glycol 17 gm DAILYPRN PRN PO 05/12/24 14:45 05/15/24 12:59 17 GM Sertraline HCl 50 mg DAILY PO 05/13/24 10:00 05/15/24 08:37 50 MG Oxycodone/ Acetaminophen 1 tab Q6HP PRN PO 05/14/24 14:30 05/15/24 01:51 1 TAB Piperacillin Sod/ Tazobactam Sod 100 ml @ 25 mls/hr Q8HR IV 05/15/24 22:00 05/16/24 05:55 25 MLS/HR Lactated Ringer's 1,000 ml @ 125 mls/hr Q8H IV 05/15/24 17:45 05/16/24 01:45 125 MLS/HR Morphine Sulfate 2 mg Q4HPRN PRN IV 05/15/24 17:45 05/16/24 05:56 2 MG Potassium Chloride 100 ml @ 50 mls/hr Q2H IV 05/16/24 06:30 05/16/24 10:29 05/16/24 07:03 50 MLS/HR objective General: the patient is well developed and nourished. No acute distress. ABDOMEN: Status post surgery MENTAL STATUS: Subjective. SPEECH, LANGUAGE, HIGHER CORTICAL FUNCTION: no aphasia or dysathria. CRANIAL NERVES: Pupils are equal, round and reactive. EOMs full and conjugate. No nystagmus. Facial sensation intact in all three divisions bilaterally. Mandibular strength intact. Mild left facial weakness of upper motor neuron pattern SENSATION: Sensation to touch and pinprick is normal. MOTOR: Normal tone in the upper and lower extremity. Normal muscle bulk. No fasciculations. No abnormal movements or posturing. Muscle strength of the major groups in the right extremities is 5/5. Muscle strength of the major groups in the left extremities is: Upper extremity: 3-4/5, lower extremity: 4/5. REFLEXES: Deep tendon reflexes are symmetrical. No pathological reflexes. CEREBELLAR/COORDINATION: Finger to nose is normal in the right arm GAIT/STATION: deferred laboratory and microbiology Laboratory Tests 05/16/24 03:20 Test 05/16/24 03:20 Range/Units Serum Glucose 125 H 74-106 mg/dL Problem List Pap prolapse, can count urethrovesical junction, surgery repair on 05/07/2024 (Robotic supracervical hysterectomy bilateral salpingo-oophorectomy colposcopic pexy cystocele repair urethral sling partial vaginectomy) Bowel obstruction with perforation (CT abdominal pelvis on 05/15/2024) Peritonitis Sepsis Metabolic encephalopathy Acute right MCA territory multiple strokes Left hemiparesis Right ICA occlusion Left ICA severe stenosis Status post oophorectomy, hysterectomy Assessment/Plan Monitoring Supportive treatment ICU care Hold off Aspirin 81 mg q.d. Hold off Plavix 75 mg daily for 21 days Lipitor 20 mg daily (NPO) Up to chair Physical therapy Further address bilateral carotid stenosis CLARA on discharge Surgery on case More recommendation per clinical course This medical document was created using an electronic medical record system with [employer] dictation system. Although this document has been carefully reviewed, there may still be some phonetic and typographical errors. These areas are purely typographical due to imperfections of the software programs, and do not reflect any compromise in the patient's medical care Prognosis Critical Dietary Evaluation Review Comments: 1) Continue NPO 2) Continue current plan of care NPO Plan discussed with: Patient, Other Critical Care Time(min): 40 BRYAN FLORES MD May 16, 2024 09:01
--- NOTE | 2024-05-16 09:18 | DVHINCON2 ---
DATE OF CONSULTATION: 05/16/2024 HISTORY OF PRESENT ILLNESS: This patient is 68 years old, coming in with history of recent surgery and now complaining of abdominal pain. I was asked to see her a few hours ago regarding her issue with abdominal pain and recent surgery and she was admitted to the hospital on 05/07/2024 for scheduled hysterectomy and oophorectomy surgery. She did well according to the records and was admitted because she was hypotensive and she had a workup done with an MRI showing multiple strokes in the right MCA territory and she denies altered mental status and there is no history of stroke. I was asked to see her late last night based upon her abdominal pain and with a possibility of bowel obstruction and I was not informed about any bowel perforation at that time, and then I was informed that she will be transferred to the ICU to rule out bowel perforation. She had a recent robotic laparoscopic surgery for her procedure and that could have caused the retention from her procedure, but bowel perforation could not be ruled out, so I came to see her. She was complaining of abdominal pain and no nausea, vomiting and she allowed an NG tube to be placed and she did not have a bowel activity for the past few days and also she had mild flatus yesterday. No fever or chills. No hematemesis or melena. No bleeding per rectum. PAST MEDICAL HISTORY: Hypertension, anemia, and breast cancer SURGICAL HISTORY: Includes last year she had an exploratory laparotomy. She had a right colon resection done with ileostomy. Details of that are not clear. It was done in [place] and then it was reversed. She did well since then. She is having ongoing diarrhea and also known and then she had this procedure done as I mentioned on 05/07/2024 and following that she has been under close observation for other issues were UTI as well, but I was asked to see her with regards to her more recent concern regarding her CT scan findings. She also had a breast cancer on the left side and for that she received bilateral mastectomy and Port-A-Cath placement that was done in the year 2021. PHYSICAL EXAMINATION: VITAL SIGNS: Currently, she is afebrile with stable signs. HEENT: No pallor, no cyanosis, or jaundice. NECK: Supple, nontender with no thyromegaly, lymphadenopathy. CHEST AND LUNGS: Clear. HEART: Within normal limits. ABDOMEN: Soft, but distended. It is tender in the right abdomen as well as the left abdomen, more so on the incision sites. There is no rebound demonstrated. NEUROLOGIC: Not assessed. EXTREMITIES: Unremarkable. CLINICAL IMPRESSION: My clinical impression is rule out a small-bowel obstruction, rule out a bowel perforation that could possibly be pink pain or sealed off. PLAN: Will be to keep ____ she is remaining hemodynamically stable. Lactate is within normal limits. White cell count is mildly elevated, trending upwards and to determine the need for surgery. Repeat CT scan of the abdomen and pelvis is indicated stat and based upon ongoing evaluation and the findings of the CAT scan, surgery can be considered that would be exploratory laparotomy, possible bowel resection, and colostomy. Benefits and risks have been discussed and a consent obtained and the patient understands. All questions were answered and nursing staff also was told to call Dr. Apple about a clinical situation as well as my observation and evaluation. MD SANTOSH Ruiz TID: [id number] RECEIPT: [id number] cc: Stephane Apple DO
--- NOTE | 2024-05-16 09:36 | DVH ---
CLINICAL INFORMATION: 68 years old, Female; check for bowel perf and obstruction. TECHNIQUE: Axial CT images of the abdomen and pelvis were obtained after the uneventful administrati on of 100 mL Omnipaque 300 IV contrast. 500 mL oral Gastroview contrast also administered prior to th e examination. Coronal and sagittal reformatted images were obtained, reviewed, and stored. All CT sc ans at this medical facility are performed using dose modulation techniques as appropriate to a perfo rmed exam including the following: Automated exposure control was utilized; adjustment of the MA and/ or KV according to patient size; and use of iterative reconstruction technique. CTDIvol = 19.43 mGy DLP = 1250.87 mGy-cm COMPARISON: Noncontrast enhanced CT dated 05/15/2024. FINDINGS: Sequelae of recent postsurgical changes again noted with cutaneous jackie overlying the midline of t he ventral abdomen as well as cutaneous jackie in the right and left ventral abdominal alvarado. There is prominent subcutaneous edema in the ventral abdominal wall and ventral pelvic body wall extending into the peroneal region, bilateral inguinal regions , and in the anterior aspect of the left proxima l thigh, partially visualized. There is diffuse body wall edema / anasarca. Small bilateral pleural e ffusions with overlying atelectasis in the lower lobes. Again seen is pneumoperitoneum and free fluid in the abdomen and pelvis. There is a large collection containing fluid and gas in the right hemiabdomen and extending into the pelvis, measuring up to 28.9 cm in craniocaudal dimension, 15.6 cm in AP dimension, and 15.1 cm in transverse dimension, displaci ng adjacent bowel loops. There is oral contrast visualized in this structure, which appears to commun icate with a loop of bowel in the right hemiabdomen along the posterior aspect of the collection ( se chester 5, image 130 correlating with series 602 image 47). There also appears to be communication with small bowel loops in the left hemiabdomen ( series 6 images 118-134 correlating with series 601 image s 47). There is a component of the collection which extends adjacent to the anterior superior aspect of the left hepatic lobe. There is a small component of the collection extending into the left hemipe lvis. There is a surgical anastomosis at the rectosigmoid colon. There are dilated loops of small bow el, predominantly in the left hemiabdomen with twisting of small bowel loops and transition to nondil ated more distal small bowel loops consistent with a degree of small bowel obstruction. There is a Shannon catheter extending into the bladder. Moderate right hydronephrosis and hydroureter, likely compressed at its distal aspect by the fluid collection in the right hemiabdomen. No obstruct ing calculus visualized. Left renal cysts again noted. There is hepatic steatosis. No gallstones visu alized in the gallbladder. There is pericholecystic fluid, which may be associated with free fluid el sewhere in the abdomen. The spleen, pancreas, and adrenal glands are unremarkable. There is dense ath erosclerotic calcification with no abdominal aortic aneurysm. No retroperitoneal lymphadenopathy. No significant osseous abnormality identified. IMPRESSION: 1. Sequelae of recent postsurgical changes as described above. Correlate with surgical history. 2. Pneumoperitoneum and free fluid in the abdomen and pelvis. 3. Large collection containing fluid and gas, predominantly in the right hemiabdomen. There is GI con trast extending into this collection from an adjacent small bowel loop. There is a component of this collection extending adjacent to the anterior superior aspect of the liver. 4. Moderate right hydronephrosis and hydroureter. The distal right ureter appears to be compressed b y the large fluid collection in the right hemiabdomen. No obstructing calculus. 5. Dilated small bowel loops in the left hemiabdomen with suspected small-bowel obstruction. 6. Prominent subcutaneous edema in the ventral abdominal wall and extending caudally into the inguina l regions bilaterally, peroneal region, and anterior aspect of the left thigh. 7. Small bilateral pleural effusions with overlying atelectasis. 8. Additional findings as detailed above. Critical findings Critical Result: Bowel perforation and large collection containing gas, fluid, and GI contrast in the abdomen. Findings discussed with ODIN MIRANDA NP, by dr. Combs by phone at 05/16/2024 11:27 AM CDT, and acknowledged receipt and understanding of the findings. ..
[2024-05-16] MEDS: LORazepam 2MG/ML-1ML VIAL IV ONE (10:23)
[2024-05-16] MEDS: MAGNESIUM SULFATE 1GM/100ML 100 ML IV ONE (10:24)
[2024-05-16] MEDS: POTASSIUM CHLORIDE 40 MEQ in D5W/LACTATED RINGERS 1,000 ML IV SCH (10:55)
--- NOTE | 2024-05-16 11:01 | DVHPN2 ---
Subjective Patient reports having distended abdomen. Also has persistent abdominal pain. Reviewed: Care Plan, H&P, Labs, Medications, Previous Orders, Radiology Changes from previous H/P or p: No Changes General: Per HPI Eyes: No Pain, No Vision change, No Conjunctivae inflammation, No Eyelid inflammation, No Other, No Redness ENT: No Ear pain, No Ear discharge, No Nose pain, No Nose discharge, No Nose congestion, No Mouth pain, No Mouth swelling, No Throat pain, No Throat swelling, No Other Cardiovascular: No Chest Pain, No Palpitations, No Orthopnea, No Paroxysmal Noc. Dyspnea, No Edema, No Lt Headedness, No Other Respiratory: No Cough, No Dry, No Shortness of breath, No SOB with excertion, No Wheezing, No Hemoptysis, No Pleuritic Pain, No Sputum, No Other Gastrointestinal: Nausea Genitourinary: No Dysuria, No Frequency, No Incontinence, No Hematuria, No Retention, No Other Musculoskeletal: No other, No neck pain, No shoulder pain, No arm pain, No back pain, No hand pain, No leg pain, No foot pain Skin: No Rash, No Lesions, No Jaundice, No Bruising, No Other Objective Vitals Vital Signs Date Time Temp Pulse Resp B/P (MAP) Pulse Ox O2 Delivery O2 Flow Rate FiO2 05/16/24 07:30 103 26 155/66 (95) 98 05/16/24 06:00 Room Air* 0 21 05/16/24 04:00 98.7 98.7 Intake/Output Intake and Output 05/16/24 07:00 Intake Total 2775 ml Output Total 1900 ml Balance 875 ml Intake Oral 500 ml IV Total 2275 ml Output Urine Total 1425 ml Gastric Drainage Total 475 ml General Appearance: Alert, Oriented X3, Cooperative, No acute distress HEENT: Atraumatic, PERRLA Lungs: Clear to auscultation, Normal air movement Cardiovascular: Regular rate, Normal S1, Normal S2 Abdomen: Normal bowel sounds, Soft, Other (Severe tenderness generalized no rebound) Musculoskeletal: Weak motor strength LUE, Weak motor strength LLE Extremities: No edema Neuro: Other (Left arm weakness including weaver tire cord and proximal muscles) Psych/Mental Status: Mental status NL, Mood NL Medications Current Medications Medications Dose Ordered Sig/Nora Route Start Time Stop Time Status Last Admin Dose Admin Ondansetron HCl 4 mg Q4HP PRN IV 05/07/24 16:30 05/16/24 05:55 4 MG Famotidine 20 mg DAILY IV 05/09/24 10:00 05/16/24 10:15 20 MG Metoclopramide HCl 10 mg Q6HR PRN IV 05/10/24 23:15 05/11/24 05:33 10 MG Piperacillin Sod/ Tazobactam Sod 100 ml @ 25 mls/hr Q8HR IV 05/15/24 22:00 05/16/24 05:55 25 MLS/HR Morphine Sulfate 2 mg Q4HPRN PRN IV 05/15/24 17:45 05/16/24 05:56 2 MG Potassium Chloride 40 meq/ Dextrose/Lactated Ringer's 1,020 ml @ 100 mls/hr [id number] IV 05/16/24 09:45 05/16/24 10:55 100 MLS/HR Laboratory Results Laboratory Tests 05/16/24 03:20 Chemistry Test 05/16/24 03:20 Albumin 3.0 g/dL (3.2-4.8) L Calcium Level 8.5 mg/dL (8.7-10.4) L Total Protein 5.6 g/dL (5.7-8.2) L Coagulation Test 05/16/24 06:21 Prothrombin Time 17.4 sec (9.3-11.8) H Prothrombin Time INR 1.71 (0.9-1.15) H Activated Partial Thromboplast Time 34.2 SEC (24.5-34.5) LFT Test 05/16/24 03:20 Alanine Aminotransferase (ALT) < 9 U/L (7-40) Alkaline Phosphatase 81 U/L (46-116) Aspartate Amino Transferase (AST) 11 U/L (13-40) L Total Bilirubin 0.8 mg/dL (0.2-1.0) Urinalysis Test 05/11/24 16:18 Urine Color Yellow (Yellow) Urine Clarity Clear (Clear) Urine pH 6.0 (5.0-9.0) Urine Specific [place] 1.020 (1.001-1.035) Urine Protein 1+ (Negative) H Urine Ketones 4+ (Negative) H Urine Blood Trace /uL (Negative) H Urine Nitrite Negative (Negative) Urine Bilirubin Negative (Negative) Urine Urobilinogen Normal mg/dL (Negative) Urine Leukocyte Esterase Negative /uL (Negative) Urine RBC 2 /hpf (0 - 4) Urine WBC 2 /hpf (0 - 5) Urine Squamous Epithelial Cells Few /hpf (<5) Urine Bacteria None seen /hpf (None Seen) Urine Mucus Few (None Seen) Urine Glucose Normal mg/dL (Normal) Microbiology Microbiology Date/Time Source Procedure Growth Status 05/11/24 16:18 Urine - [place] Urine Culture - Final Complete Labs and/or images reviewed: Labs reviewed by me, Image(s) reviewed by me Assessment/Plan Assessment/Plan Impression: Abdominal pain due to recent robotic surgery hysterectomy and salpingo- oophorectomy History of breast cancer with bilateral mastectomies History of bowel surgery and ileostomy which Anemia due to blood loss and dilution Hypotension Chronic pain syndrome, patient takes opiates at home Hypokalemia Hypomagnesemia Plan: Events: Patient had CT scan with oral contrast after CT scan performed yesterday. Positive bowel perforation disclosed to myself by online radiologist Dr. Farmer. Discussed case with both Dr. Reid and Dr. Lake. Patient to have staph exploratory laparotomy today. -potassium replacement -continue Zosyn -NG tube to low intermittent suction -repeat labs in a.m. -PUD, DVT prophylaxis -long discussion made with the patient's sister was bedside as well as the patient. Risks of repeat stroke, bleeding, as well as poor surgical outcome discussed . They are all in agreement for surgery at this time. Critical care time spent with patient discussing and formulating plan of care: 100 minutes. This does not include time spent performing procedures. This medical document was created using an electronic medical record system with [employer] dictation system. Although this document has been carefully reviewed, there may still be some phonetic and typographical errors. These areas are purely typographical due to imperfections of the software programs, and do not reflect any compromise in the patient's medical care. Plan discussed with: Patient, Other (RN, sister) My Orders Orders - ODIN MIRANDA INSURANCE CHECKER Procedure Category Date Status Time Ct Ab Pel Wo Con-No CT 05/15/24 Resulted Oral Or Iv 14:23 Piperacillin-Tazob PHA 05/15/24 In Process 3.375gm (Zosyn 3.375g 22:00 * Surgical Consult CONS 05/15/24 Transmitted Npo (Nothing By DIET 05/15/24 Transmitted Mouth) Diet Dinner Transfer Orders XFER 05/15/24 Transmitted 17:38 Morphine Sulfate PHA 05/15/24 In Process Injection 17:45 Ng To Lis MARY BETH 05/15/24 In Process 17:45 Chest Portable XY 05/15/24 Resulted 18:32 Mrsa Screen MIROSLAVA 05/15/24 In Process 22:58 D5w/Lactated PHA 05/16/24 In Process Ringer... W/Potassium 09:45 Pheresis Platelets BBK 05/16/24 Transmitted 09:31 Magnesium Sulfate PHA 05/16/24 In Process 1gm/100ml 10:00 Date of Service: May 16, 2024 Billing Provider: ODIN MIRANDA NP Common Visit Codes: [id number] CARE 30-74 MIN, [id number] CARE-EACH +30MIN ODIN MIRANDA NP May 16, 2024 11:01
[2024-05-16] MEDS: ceFAZolin 1GM VL ONE ×3 (13:30→13:35)
[2024-05-16] MEDS: CALCIUM CHLOR(10%) 100MG/ML 10ML SYRINGE IV ONE (13:32)
[2024-05-16] MEDS: NOREPINEPHRINE 8 MG/250ML KIT 250 ML IV ONE (14:01)
[2024-05-16 14:11] LABS: Base Excess -8.3 mmol/L (-2.0-3.0)
--- NOTE | 2024-05-16 14:29 | DVHOP2 ---
Operative Report [id number] SMALL BOWEL PERFORATION PERITONITIS WITH INTRAABD ABSCESS DENSE ADHESIONS E LAP SMALL BOWEL RESECTION ANASTOMOSIS DRAINAGE OF INTRAABD ABSCESS LYSIS OF ADHESIONS ASSIST DR PAZ EBL 100 CC 2 DRAINS CONDITION CRITICAL TRANSFERRED TO ICU INTUBATED OP FINDINGS DISCUSSED WITH FAMILY SHEY COVARRUBIAS MD May 16, 2024 14:29
[2024-05-16] MEDS: fentaNYL Drip 2500mCg/250mlNS 250 ML IV ONE (14:43)
--- NOTE | 2024-05-16 14:53 | DVHOP ---
DATE OF SURGERY: 05/16/2024 PREOPERATIVE DIAGNOSES: * Rule out small bowel obstruction. * Rule out small bowel perforation. POSTOPERATIVE DIAGNOSES: * Rule out small bowel obstruction. * Rule out small bowel perforation. Operative findings included both. There was bowel obstruction as well as a perforation close to her terminal ileum. She is status post right colon resection and she had presumably an ileocolonic anastomosis after it was reversed from ileostomy. The details of that procedure were not clear. Nonetheless, the operative findings included a perforation of the small bowel in the terminal location. Etiology was not clear. It could be related to her previous surgery. It could be a weak spot that could have gotten ruptured from bowel obstruction from her adhesions and also there is a possibility of bowel injury during her recent surgery or instrumentation from the previous surgery. PROCEDURES: Exploratory laparotomy, small bowel resection and anastomosis, drainage of intraabdominal abscess, and extensive lysis of dense adhesions. SURGEON: Crescencio Lake MD WIRE RIGGER: Dr. Apple. ANESTHESIA: General. BLOOD LOSS: Close to 100 mL. DRAINS: 2 drains were used. DESCRIPTION OF PROCEDURE: The patient was prepped and draped in the usual sterile fashion in the supine position. A vertical midline incision was applied going alongside the previous incision site and removing the staple line as well from a previous surgery was taken down to the deeper tissues. The abdomen was entered. Free air was noted and lot of purulent material was removed. Cultures were sent and greenish fluid, large subcutaneous fluid was drained, suggesting small bowel perforation. The incision was extended down more inferiorly as well and this allowed adequate exposure and the entire small bowel was then released and dissected out from dense adhesions in a meticulous fashion starting from the DJ flexure going up to the right lower abdomen and then the small bowel was then connected to the sigmoid colon from a previous surgery. All of this was found out during this exploration and the release of the adhesions, the bowel perforation was noted and it was in the terminal ileum proximal to the anastomosis presumably with the large intestine of the small bowel and a segment of the small bowel was then considered to be amenable for resection and rather than doing suture closure of the perforation I decided to do a small bowel resection and anastomosis and a suitable spot was selected proximal to the perforation and distal to the perforation and MICHEL stapling device was used to transect and then the intervening mesenteric vessels were taken down using LigaSure device and the suture was placed in the proximal side of the segment of small bowel that was removed and then [id number] staple anastomosis was carried out in the healthiest locations of the two proximal and the distal bowels and the final opening being closed with the stapling device as well and then reinforced with a silk sutures at various locations. With this being done, the contents were released both proximally and distally allowing a test of the anastomosis that was viable and secure. With this being done, thorough irrigation was carried out in all four quadrants of the abdomen. Two drains were applied, one in the right upper quadrant and the other end of the drain was situated in the pelvis and the one on the left side the drain was placed in the left lower quadrant and the tip of the drain was then placed in the left upper quadrant. With the drains in place, thorough irrigation of the entire abdominal cavity was carried out. The bowel was replaced back into the anatomic location and the sponge count and needle count was reported correct. The fascia was brought together using PDS suture and the wound was brought together using Vicryl suture at various locations and a stapling device was used to bring the skin tissue together and then a Prevena dressing was applied. Dressing was applied at the drain site. The patient tolerated the procedure well and was taken back to the ICU in a critical condition. MD SANTOSH Ruiz/DILLON TID: [id number] RECEIPT: [id number] cc: Stephane Apple DO
[2024-05-16] MEDS: PROPOFOL 100 ML IV ONE (14:57)
--- NOTE | 2024-05-16 15:21 | DVH ---
EXAM: XY CHEST PORTABLE TECHNIQUE: Single frontal chest radiograph CLINICAL HISTORY: CENTRAL LINE PLACEMENT COMPARISON: XY CHEST PORTABLE on DOS: 05/16/24, XY CHEST PORTABLE on DOS: 05/15/24 Findings/Impression: Frontal chest radiograph demonstrates no acute osseous or superficial soft tissue abnormalities. Endotracheal tube measures 6.3 cm from the joaquin. Right sided IJ catheter terminates near the proxim al SVC. Right chest wall port terminates in the right atrium. Enteric tube is overlying the plane of the stomach. The trachea is midline. The cardiac silhouette and mediastinum are within normal limits. Mild to moderate elevation of the right hemidiaphragm. No pneumothorax, pleural effusions, or consolidations.
[2024-05-16] MEDS: NOREPINEPHRINE 8 MG/250ML KIT 250 ML IV SCH (15:30)
[2024-05-16 15:45] LABS: Hematocrit 34.4 % (36.0-46.0); Hemoglobin 11.7 g/dL (12.2-16.2); Mean Corpuscular Hemoglobin 29.7 pg (28.0-32.0); Mean Corpuscular Volume 87.3 fL (80.0-100.0); Platelet Count (auto) 264 10^3/uL (140-450); Red Blood Cells 3.94 10^6/uL (4.0-5.20); White Blood Cell 9.6 10^3/uL (4.4-10.8)
[2024-05-16 16:05] LABS: Albumin 2.5 g/dL (3.2-4.8); Alkaline Phosphatase 63 U/L (46-116); Anion Gap 8 (5-15); Aspartate Aminotransferase 9 U/L (13-40); BUN/Creatinine Ratio 11.8 (10.0-20.0); Blood Urea Nitrogen 9 mg/dL (9-23); Calcium 8.6 mg/dL (8.7-10.4); Carbon Dioxide 21 mmol/L (20-31); Chloride 106 mmol/L (98-107); Glucose 298 mg/dL (74-106); Potassium 3.9 mmol/L (3.5-5.1); Sodium 135 mmol/L (136-145)
[2024-05-16 16:06] LABS: Bilirubin, Total 1.2 mg/dL (0.2-1.0); Total Protein 4.5 g/dL (5.7-8.2)
[2024-05-16 16:08] LABS: Alanine Aminotransferase < 9 U/L (7-40)
[2024-05-16] MEDS: SODIUM BICARB 8.4% 50Meq/50ml SYR Vial IV ONE (16:08)
[2024-05-16 16:10] LABS: Lactic Acid w/Reflex 2.4 mmol/L (0.4-2.0)
[2024-05-16] MEDS: fentaNYL Drip 2500mCg/250mlNS 250 ML IV SCH (16:15)
[2024-05-16] MEDS: PROPOFOL 100 ML IV SCH (16:15)
[2024-05-16] MEDS: SODIUM BICARB 8.4% 50Meq/50ml SYR INJ ONE (16:17)
[2024-05-16 16:21] LABS: Basophils % (manual) 0 (0.0-2.0); Blast Cells 0; Eosinophils % (manual) 0 (0-7); Metamyelocytes % 0; Promyelocytes % 0; Reactive Lymphocytes 0
[2024-05-16 16:57] LABS: Anisocytosis Slight; Band Neutrophils % (manual) 56; Lymphocytes % (manual) 4 (10.0-50.0); Monocytes % (manual) 8 (0-12); Myelocytes % 2; Platelet Estimate Adequate
[2024-05-16 17:31] LABS: Base Excess -4.1 mmol/L (-2.0-3.0)
[2024-05-16] MEDS: LACTATED RINGER'S 1,000 ML IV ONE (18:33)
[2024-05-16] MEDS: ALBUMIN 5% 250 ML IV ONE ×4 (21:15→22:41)
[2024-05-16] MEDS: SODIUM CHLORIDE 0.9% 500 ML IV ONE (21:15)
[2024-05-16 21:29] LABS: Hematocrit 33.6 % (36.0-46.0); Hemoglobin 11.3 g/dL (12.2-16.2)
[2024-05-16] MEDS: MIDAZOLAM DRIP 50 mg/50mL 50 ML IV SCH (21:56)
[2024-05-16] MEDS: ACETAMINOPHEN 650 MG RECT SUPP PR PRN (22:30)
[2024-05-16 23:28] LABS: Lactic Acid w/Reflex 3.5 mmol/L (0.4-2.0)
[2024-05-17] VITALS (112 sets, daily range): BP systolic 63–161; BP diastolic 30–51; PULSE 88–114; RESP 12–32; TEMP 97.5–100; O2SAT 95–100
[2024-05-17] MEDS: VANCOMYCIN 1GM/250ML KIT 200 ML IV ONE (00:18)
[2024-05-17] MEDS: SODIUM CHLORIDE 0.9% 500 ML IV ONE (00:19)
--- NOTE | 2024-05-17 00:58 | DVH ---
EXAM: XY CHEST PORTABLE CLINICAL HISTORY: confirm ETT placement TECHNIQUE: Single AP view of the chest WID: COMPARISON: XY CHEST PORTABLE on DOS: 05/16/24 FINDINGS: Lines and tubes: Endotracheal tube projects 4 cm above the joaquin. Right IJ central venous catheter p rojects over the mid SVC. Right IJ chest port projects over the low SVC . There is a gastric tube whi ch descends beneath the level of the diaphragm. Chest: Mild cardiomegaly with mild pulmonary vascular congestion. Small bilateral pleural effusions and cons olidation in the right lung base. No pneumothorax. The osseous structures are grossly intact. IMPRESSION: 1. Various indwelling support devices in place as described. 2. Mild cardiomegaly and mild pulmonary vascular congestion. 3. Small bilateral pleural effusions and right basilar consolidation which could reflect atelectasis and/or pneumonia.
[2024-05-17 05:34] LABS: Hematocrit 24.8 % (36.0-46.0); Hemoglobin 8.5 g/dL (12.2-16.2); Mean Corpuscular Hemoglobin 29.8 pg (28.0-32.0); Mean Corpuscular Hgb Conc. 34.3 g/dL (32.0-36.0); Mean Corpuscular Volume 86.9 fL (80.0-100.0); Platelet Count (auto) 205 10^3/uL (140-450); Red Blood Cells 2.86 10^6/uL (4.0-5.20); Red Cell Distribution Width 15.5 % (11.8-14.3); White Blood Cell 20.4 10^3/uL (4.4-10.8)
[2024-05-17 06:16] LABS: Base Excess -7.8 mmol/L (-2.0-3.0)
[2024-05-17 06:19] LABS: Basophils % (manual) 0 (0.0-2.0); Blast Cells 0; Eosinophils % (manual) 0 (0-7); Metamyelocytes % 0; Myelocytes % 0; Promyelocytes % 0; Reactive Lymphocytes 0
[2024-05-17 07:36] LABS: Band Neutrophils % (manual) 35; Lymphocytes % (manual) 4 (10.0-50.0); Monocytes % (manual) 5 (0-12); Platelet Estimate Adequate
[2024-05-17 07:40] LABS: Alanine Aminotransferase < 9 U/L (7-40); Albumin 2.4 g/dL (3.2-4.8); Alkaline Phosphatase 42 U/L (46-116); Anion Gap 7 (5-15); Aspartate Aminotransferase < 8 U/L (13-40); BUN/Creatinine Ratio 9.4 (10.0-20.0); Bilirubin, Total 1.9 mg/dL (0.2-1.0); Blood Urea Nitrogen 9 mg/dL (9-23); Calcium 7.5 mg/dL (8.7-10.4); Carbon Dioxide 21 mmol/L (20-31); Chloride 111 mmol/L (98-107); Glucose 221 mg/dL (74-106); Potassium 4.2 mmol/L (3.5-5.1); Sodium 139 mmol/L (136-145); Total Protein 3.8 g/dL (5.7-8.2)
[2024-05-17] MEDS ORDERED: TPN PER PHARMACY 0 ML IV SCH (08:30)
--- NOTE | 2024-05-17 08:35 | DVHPN2 ---
Subjective Patient chemically sedated Reviewed: Care Plan, H&P, Labs, Medications, Previous Orders, Radiology Changes from previous H/P or p: Changes General: Per HPI Eyes: No Pain, No Vision change, No Conjunctivae inflammation, No Eyelid inflammation, No Other, No Redness ENT: No Ear pain, No Ear discharge, No Nose pain, No Nose discharge, No Nose congestion, No Mouth pain, No Mouth swelling, No Throat pain, No Throat swelling, No Other Cardiovascular: No Chest Pain, No Palpitations, No Orthopnea, No Paroxysmal Noc. Dyspnea, No Edema, No Lt Headedness, No Other Respiratory: No Cough, No Dry, No Shortness of breath, No SOB with excertion, No Wheezing, No Hemoptysis, No Pleuritic Pain, No Sputum, No Other Gastrointestinal: Nausea Genitourinary: No Dysuria, No Frequency, No Incontinence, No Hematuria, No Retention, No Other Musculoskeletal: No other, No neck pain, No shoulder pain, No arm pain, No back pain, No hand pain, No leg pain, No foot pain Skin: No Rash, No Lesions, No Jaundice, No Bruising, No Other Objective Vitals Vital Signs Date Time Temp Pulse Resp B/P (MAP) Pulse Ox O2 Delivery O2 Flow Rate FiO2 05/17/24 08:14 102 16 127/40 (69) 98 35 05/17/24 08:00 98.4 209.1 05/17/24 06:00 Mechanical Ventilator+ 05/16/24 20:00 0 Intake/Output Intake and Output 05/17/24 07:00 Intake Total 5010.328 ml Output Total 1685 ml Balance 3325.328 ml Intake Oral 0 ml IV Total 5010.328 ml Output Urine Total 925 ml Gastric Drainage Total 300 ml Drainage Total 460 ml General Appearance: Other (Intubated and sedated) HEENT: Atraumatic, PERRLA Lungs: Clear to auscultation, Normal air movement Cardiovascular: Regular rate, Normal S1, Normal S2 Abdomen: Normal bowel sounds, Soft, Other (EVARISTO drain with sanguinous fluid.) Musculoskeletal: Weak motor strength LUE, Weak motor strength LLE Extremities: No edema Neuro: Other (Left arm weakness including buying intern and proximal muscles) Psych/Mental Status: Mental status NL, Mood NL Medications Current Medications Medications Dose Ordered Sig/Nora Route Start Time Stop Time Status Last Admin Dose Admin Ondansetron HCl 4 mg Q4HP PRN IV 05/07/24 16:30 05/16/24 05:55 4 MG Famotidine 20 mg DAILY IV 05/09/24 10:00 05/17/24 08:06 20 MG Metoclopramide HCl 10 mg Q6HR PRN IV 05/10/24 23:15 05/11/24 05:33 10 MG Piperacillin Sod/ Tazobactam Sod 100 ml @ 25 mls/hr Q8HR IV 05/15/24 22:00 05/17/24 05:56 25 MLS/HR Morphine Sulfate 2 mg Q4HPRN PRN IV 05/15/24 17:45 05/16/24 05:56 2 MG Potassium Chloride 40 meq/ Dextrose/Lactated Ringer's 1,020 ml @ 100 mls/hr [id number] IV 05/16/24 09:45 05/17/24 01:50 100 MLS/HR Fentanyl Citrate 250 ml @ 2.5 mls/hr Q24H IV 05/16/24 14:00 05/17/24 08:07 15 MLS/HR Dexmedetomidine HCl 400 mcg/ Dextrose 100 ml @ 2.36 mls/hr Q24H IV 05/16/24 14:00 Norepinephrine Bitartrate 250 ml @ 3.75 mls/hr Q24H IV 05/16/24 14:15 05/17/24 05:56 52.5 MLS/HR Midazolam HCl 50 ml @ 1 mls/hr Q24H IV 05/16/24 21:00 05/17/24 05:57 4 MLS/HR Phenylephrine HCl 250 ml @ 30 mls/hr Q8H20M IV 05/16/24 21:15 05/17/24 06:03 30 MLS/HR Acetaminophen 650 mg Q6HPRN PRN CO 05/16/24 22:30 05/16/24 22:30 650 MG Laboratory Results Laboratory Tests 05/17/24 04:00 05/17/24 05:20 Chemistry Test 05/16/24 15:15 05/17/24 04:00 Albumin 2.5 g/dL (3.2-4.8) L 2.4 g/dL (3.2-4.8) L Calcium Level 8.6 mg/dL (8.7-10.4) L 7.5 mg/dL (8.7-10.4) L Magnesium Level 2.0 mg/dL (1.6-2.6) Total Protein 4.5 g/dL (5.7-8.2) L 3.8 g/dL (5.7-8.2) L LFT Test 05/16/24 15:15 05/17/24 04:00 Alanine Aminotransferase (ALT) < 9 U/L (7-40) < 9 U/L (7-40) Alkaline Phosphatase 63 U/L (46-116) 42 U/L (46-116) L Aspartate Amino Transferase (AST) 9 U/L (13-40) L < 8 U/L (13-40) L Total Bilirubin 1.2 mg/dL (0.2-1.0) H 1.9 mg/dL (0.2-1.0) H Urinalysis Test 05/11/24 16:18 Urine Color Yellow (Yellow) Urine Clarity Clear (Clear) Urine pH 6.0 (5.0-9.0) Urine Specific [place] 1.020 (1.001-1.035) Urine Protein 1+ (Negative) H Urine Ketones 4+ (Negative) H Urine Blood Trace /uL (Negative) H Urine Nitrite Negative (Negative) Urine Bilirubin Negative (Negative) Urine Urobilinogen Normal mg/dL (Negative) Urine Leukocyte Esterase Negative /uL (Negative) Urine RBC 2 /hpf (0 - 4) Urine WBC 2 /hpf (0 - 5) Urine Squamous Epithelial Cells Few /hpf (<5) Urine Bacteria None seen /hpf (None Seen) Urine Mucus Few (None Seen) Urine Glucose Normal mg/dL (Normal) Blood Gas Results Test 05/16/24 13:52 05/16/24 17:24 05/16/24 20:57 05/17/24 06:08 Arterial Blood pH 7.220 (7.350-7.450) 7.343 (7.350-7.450) 7.270 (7.350-7.450) 7.300 (7.350-7.450) FiO2 % 100.0 75.0 60.0 35.0 Microbiology Microbiology Date/Time Source Procedure Growth Status 05/15/24 23:00 Nose MRSA Screen - Final Complete 05/11/24 16:18 Urine - [place] Urine Culture - Final Complete Labs and/or images reviewed: Labs reviewed by me, Image(s) reviewed by me Assessment/Plan Assessment/Plan Impression: Abdominal pain due to recent robotic surgery hysterectomy and salpingo- oophorectomy History of breast cancer with bilateral mastectomies History of bowel surgery and ileostomy which Anemia due to blood loss and dilution Hypotension Chronic pain syndrome, patient takes opiates at home Hypokalemia Hypomagnesemia Anemia Plan: Events: Patient postop day one exploratory lap with small-bowel resection secondary to bowel perforation. Patient with increased vasopressor requirements. CVP three. Decreased urine output noted. Significant drop in H&H. Metabolic acidosis noted. -change IV fluids to D5 half NS at 100 mL/hr -colloid resuscitation with albumin -start TPN -transfuse 1- 10 packet platelets given patient was on Plavix going into surgery -continue Zosyn -NG tube to low intermittent suction -change current ventilator settings to increase respiratory rate to 20. -PUD, DVT prophylaxis -repeat labs, chest x-ray, ABG in a.m. Critical care time spent with patient discussing and formulating plan of care: 100 minutes. This does not include time spent performing procedures. This medical document was created using an electronic medical record system with [employer] dictation system. Although this document has been carefully reviewed, there may still be some phonetic and typographical errors. These areas are purely typographical due to imperfections of the software programs, and do not reflect any compromise in the patient's medical care. Plan discussed with: Patient, Other (RN) My Orders Orders - ODIN MIRANDA NP Procedure Category Date Status Time D5w/Lactated PHA 05/16/24 In Process Ringer... W/Potassium 09:45 Rass Sedation Scale MARY BETH 05/16/24 In Process 14:52 Chest Portable XY 05/16/24 Resulted 23:59 Abg W/ Co-Ox RT 05/17/24 Logged 06:00 Albumin Ivpb PHA 05/17/24 Verified 08:30 Pantoprazole PHA 05/17/24 Verified (Protonix) 10:00 Tpn Per Pharmacy PHA 05/17/24 Verified 08:30 D5w/Sod Chl 0.45% /2 PHA 05/17/24 Verified NS 08:30 Pheresis Platelets BBK 05/17/24 Verified 08:24 Communication Order ORDERS 05/17/24 Verified 08:24 Date of Service: May 17, 2024 Billing Provider: ODIN MIRANDA NP Common Visit Codes: [id number] CARE 30-74 MIN ODIN MIRANDA NP May 17, 2024 08:35
[2024-05-17] MEDS: ALBUMIN 25% 50 ML IV ONE (08:56)
[2024-05-17] MEDS: D5W/SOD CHL 0.45% 1,000 ML IV SCH (08:57)
[2024-05-17] MEDS: PANTOPRAZOLE 40 MG/10 ML VIAL INJ IV SCH (08:57)
[2024-05-17 10:06] LABS: Albumin 2.6 g/dL (3.2-4.8); Alkaline Phosphatase 43 U/L (46-116); Anion Gap 7 (5-15); Aspartate Aminotransferase < 8 U/L (13-40); BUN/Creatinine Ratio 10.4 (10.0-20.0); Bilirubin, Total 1.8 mg/dL (0.2-1.0); Blood Urea Nitrogen 10 mg/dL (9-23); Calcium 7.4 mg/dL (8.7-10.4); Carbon Dioxide 22 mmol/L (20-31); Chloride 112 mmol/L (98-107); Glucose 214 mg/dL (74-106); Magnesium 1.7 mg/dL (1.6-2.6); Phosphorus 2.5 mg/dL (2.4-5.1); Potassium 4.3 mmol/L (3.5-5.1); Sodium 141 mmol/L (136-145); Total Protein 4.1 g/dL (5.7-8.2); Triglycerides 125 mg/dL (< 150)
[2024-05-17 10:15] LABS: Alanine Aminotransferase < 9 U/L (7-40)
--- NOTE | 2024-05-17 10:33 | DVHPN2 ---
Progress Note - Dictate Date Seen: May 17, 2024 Has the PT tested + for MRSA If YES, has PT been informed?: No Medical Necessity Reason Pt with a Central, PICC or Fol: No Subjective Ms. Barrera is a 68 years old right-handed female with a history of hypertension, anemia, breast cancer, she was admitted to the [facility] on 05/07/2024 for scheduled hysterectomy and oophorectomy. Post surgically, she woke up with left-sided weakness, and MRI showed multiple stroke in the right MCA territory. During the hospital stay, she developed fall perforation, and she went through abdominal surgery on 05/16/2024 I have seen and examined the patient in the ICU, I have discussed with her nurse other medical staff, she has been intubated since the surgery on 05/16/2024. The patient was confirmed to have small-bowel perforation, peritonitis with intra-abdominal abscess, At that time, she is nonresponsive painful stimuli, on vent Significant amount bloody drainage Fentanyl 150 mcg/hour, Versed 4 mg/hour, Neosyn: 15 mcg/min, levo 30 mcg/minute CBC, 05/16/2024: Metabolic acidosis, 05/17/2024: Metabolic acidosis URINALYSIS, 05/11/2024: WBC: 2, URINE LEUKOCYTE ESTERASE: NEGATIVE WBC/HB/PLT/MCV, 05/04: 5.1/10.7/119/98.3, 05/17/2024: 20.4/8.5/205/86.9 PT/INR/FTT, 05/16/2024: 17.4/1.71/34.2 K, 05/09/2024: 3.9, 05/10/24:3.1, 05/12/2024: 3.4, 05/16/2024: 2.8 Lactic acid, 05/15/2024: 1.6, 05/16/2024: 1.5 LIVER FUNCTION TESTS, 05/12/2024: UNREMARKABLE, 05/16/2024: Unremarkable TG/HDL/LDL/HDL, 05/12/2024: 196/134/75/23 TSH, 05/12/2024: 2.01 Echocardiogram 05/14/2024: lvef 65% by visual estimate mild mitral regurg RV enlarged mild left atrium enlarged mild Carotid Doppler, 05/11/2024: 1. Occlusion of the right proximal ICA. 2. Greater than 50% stenosis of the right proximal ECA. 3. Greater than 50% stenosis of the left proximal ICA CT head, 05/11/2024: 1. Chronic lacunar infarct in right centrum semiovale. 2. Chronic periventricular ischemic changes. 3. Cerebral and cerebellar atrophy, likely age-related. 4. Advised further evaluation with MRI brain without contrast if clinically indicated CT abdomen/pelvis, 05/15/2024: Small bowel obstruction with evidence of perforation including free intraperitoneal fluid and air. Extensive subcutaneous emphysema likely secondary to bowel perforation CT abdomen/pelvis, 05/16/2024: 1. Sequelae of recent postsurgical changes as described above. Correlate with surgical history. 2. Pneumoperitoneum and free fluid in the abdomen and pelvis. 3. Large collection containing fluid and gas, predominantly in the right hemiabdomen. There is GI contrast extending into this collection from an adjacent small bowel loop. There is a component of this collection extending adjacent to the anterior superior aspect of the liver. 4. Moderate right hydronephrosis and hydroureter. The distal right ureter appears to be compressed by the large fluid collection in the right hemiabdomen. No obstructing calculus. 5. Dilated small bowel loops in the left hemiabdomen with suspected small-bowel obstruction. 6. Prominent subcutaneous edema in the ventral abdominal wall and extending caudally into the inguinal regions bilaterally, peroneal region, and anterior aspect of the left thigh. 7. Small bilateral pleural effusions with overlying atelectasis. 8. Additional findings as detailed above. CTA neck, head, 05/14/24: 1. Complete occlusion of the right cervical internal carotid artery. There may be trickle flow in distal right cervical ICA. 2. Poor flow in the right intracranial ICA likely retrograde perfusion through the contralateral left side posterior circulation through the communicating arteries. 3. High-grade stenosis at the left carotid bulb with at least 70-80% stenosis. Moderate short-segment stenosis in the left proximal ICA with at least 60% stenosis. MRI HEAD, 05/11/2024: 1. Multiple foci of restricted diffusion in the right centrum semiovale and along the right superior frontal lobe compatible with acute to subacute infarcts. There is no evidence of acute hemorrhage or significant surrounding edema. 2. Absence of flow void in the intracranial portions of the right internal carotid artery which is likely occluded. vital signs Vital Sign Date Time Temp Pulse Resp B/P (MAP) Pulse Ox O2 Delivery O2 Flow Rate FiO2 05/17/24 10:04 106 17 137/43 (74) 99 35 05/17/24 09:31 Mechanical Ventilator+ 05/17/24 09:30 98.4 209.1 05/17/24 08:00 0 Total Intake and Output 05/16/24 05/16/24 05/17/24 15:00 23:00 07:00 Intake Total 150 ml 2640.578 ml 2219.75 ml Output Total 1190 ml 495 ml Balance 150 ml 1450.578 ml 1724.75 ml medications Current Medications Medications Dose Ordered Sig/Nora Route Start Time Stop Time Status Last Admin Dose Admin Ondansetron HCl 4 mg Q4HP PRN IV 05/07/24 16:30 05/16/24 05:55 4 MG Piperacillin Sod/ Tazobactam Sod 100 ml @ 25 mls/hr Q8HR IV 05/15/24 22:00 05/17/24 05:56 25 MLS/HR Morphine Sulfate 2 mg Q4HPRN PRN IV 05/15/24 17:45 05/16/24 05:56 2 MG Fentanyl Citrate 250 ml @ 2.5 mls/hr Q24H IV 05/16/24 14:00 05/17/24 08:07 15 MLS/HR Dexmedetomidine HCl 400 mcg/ Dextrose 100 ml @ 2.36 mls/hr Q24H IV 05/16/24 14:00 Norepinephrine Bitartrate 250 ml @ 3.75 mls/hr Q24H IV 05/16/24 14:15 05/17/24 05:56 52.5 MLS/HR Midazolam HCl 50 ml @ 1 mls/hr Q24H IV 05/16/24 21:00 05/17/24 05:57 4 MLS/HR Phenylephrine HCl 250 ml @ 30 mls/hr Q8H20M IV 05/16/24 21:15 05/17/24 06:03 30 MLS/HR Acetaminophen 650 mg Q6HPRN PRN AK 05/16/24 22:30 05/16/24 22:30 650 MG Pantoprazole Sodium 40 mg DAILY IV 05/17/24 10:00 05/17/24 08:57 40 MG Amino Acids 0 ml @ 0 mls/hr PER PHARMACY IV 05/17/24 08:30 UNV Dextrose/Sodium Chloride 1,000 ml @ 100 mls/hr Q10H IV 05/17/24 08:30 05/17/24 08:57 100 MLS/HR objective General: the patient is well developed and nourished. No acute distress. ABDOMEN: Status post surgery MENTAL STATUS: Subjective. MENTAL STATUS: Subjective CRANIAL NERVES: Pupils are equal, round and nonreactive, very small. There are corneal reflexes and doll's eyes phenomenon. No signs of facial weakness. There are weak gagging or coughing reflexes SENSATION: No responses to pain stimuli. MOTOR: Normal tone in the upper and lower extremity. Normal muscle bulk. No fasciculations. No spontaneous movement. REFLEXES: Deep tendon reflexes are symmetrical. No pathological reflexes. CEREBELLAR/COORDINATION: Deferred GAIT/STATION: deferred. laboratory and microbiology Laboratory Tests 05/17/24 09:26 05/17/24 05:20 Test 05/17/24 09:26 Range/Units Serum Glucose 214 H 74-106 mg/dL Problem List Pelvic prolapse, can count urethrovesical junction, surgery repair on 05/07/2024 (Robotic supracervical hysterectomy bilateral salpingo-oophorectomy colposcopic pexy cystocele repair urethral sling partial vaginectomy) Bowel obstruction with perforation, intra-abdominal abscess, dense at [place], status post surgery 05/16/2024 Sepsis Metabolic encephalopathy Acute right MCA territory multiple strokes Left hemiparesis Right ICA occlusion Left ICA severe stenosis Status post oophorectomy, hysterectomy Assessment/Plan Monitoring Supportive treatment ICU care Stabilize vitals/pressor drip Vitreous support/vent management Hold off Aspirin 81 mg q.d. Hold off Plavix 75 mg daily for 21 days Lipitor 20 mg daily (NPO) Up to chair Physical therapy Further address bilateral carotid stenosis CLARA on discharge Surgery on case More recommendation per clinical course This medical document was created using an electronic medical record system with [employer] system. Although this document has been carefully reviewed, there may still be some phonetic and typographical errors. These areas are purely typographical due to imperfections of the software programs, and do not reflect any compromise in the patient's medical care Prognosis guarded Dietary Evaluation Review Comments: 1) Continue NPO 2) Continue current plan of care NPO Plan discussed with: Other Critical Care Time(min): 40 BRYAN FLORES MD May 17, 2024 10:33
--- NOTE | 2024-05-17 11:39 | DVHPN2 ---
Progress Note Date Seen: May 17, 2024 Has the PT tested + for MRSA If YES, has PT been informed?: No Medical Necessity Reason Pt with a Central, PICC or Fol: No Objective vital signs Vital Sign Date Time Temp Pulse Resp B/P (MAP) Pulse Ox O2 Delivery O2 Flow Rate FiO2 05/17/24 11:15 123/41 05/17/24 10:45 98.6 108 15 98.6 05/17/24 10:04 99 35 05/17/24 09:31 Mechanical Ventilator+ 05/17/24 08:00 0 Total Intake and Output 05/16/24 05/16/24 05/17/24 15:00 23:00 07:00 Intake Total 150 ml 2640.578 ml 2219.75 ml Output Total 1190 ml 495 ml Balance 150 ml 1450.578 ml 1724.75 ml medications Current Medications Medications Dose Ordered Sig/Nora Route Start Time Stop Time Status Last Admin Dose Admin Ondansetron HCl 4 mg Q4HP PRN IV 05/07/24 16:30 05/16/24 05:55 4 MG Piperacillin Sod/ Tazobactam Sod 100 ml @ 25 mls/hr Q8HR IV 05/15/24 22:00 05/17/24 05:56 25 MLS/HR Morphine Sulfate 2 mg Q4HPRN PRN IV 05/15/24 17:45 05/16/24 05:56 2 MG Fentanyl Citrate 250 ml @ 2.5 mls/hr Q24H IV 05/16/24 14:00 05/17/24 08:07 15 MLS/HR Dexmedetomidine HCl 400 mcg/ Dextrose 100 ml @ 2.36 mls/hr Q24H IV 05/16/24 14:00 Norepinephrine Bitartrate 250 ml @ 3.75 mls/hr Q24H IV 05/16/24 14:15 05/17/24 05:56 52.5 MLS/HR Midazolam HCl 50 ml @ 1 mls/hr Q24H IV 05/16/24 21:00 05/17/24 05:57 4 MLS/HR Phenylephrine HCl 250 ml @ 30 mls/hr Q8H20M IV 05/16/24 21:15 05/17/24 06:03 30 MLS/HR Acetaminophen 650 mg Q6HPRN PRN PA 05/16/24 22:30 05/16/24 22:30 650 MG Pantoprazole Sodium 40 mg DAILY IV 05/17/24 10:00 05/17/24 08:57 40 MG Amino Acids 0 ml @ 0 mls/hr PER PHARMACY IV 05/17/24 08:30 Dextrose/Sodium Chloride 1,000 ml @ 100 mls/hr Q10H IV 05/17/24 08:30 05/17/24 08:57 100 MLS/HR laboratory and microbiology Laboratory Tests 05/17/24 09:26 05/17/24 05:20 Test 05/17/24 09:26 Range/Units Serum Glucose 214 H 74-106 mg/dL Microbiology Date/Time Source Procedure Growth Status 05/16/24 14:20 Sputum Gram Stain - Final Resulted 05/16/24 14:20 Sputum Respiratory Culture - Preliminary Resulted 05/16/24 12:25 Abdomen Gram Stain - Final Resulted 05/16/24 12:25 Abdomen Anaerobic Culture - Preliminary Resulted 05/16/24 12:25 Abdomen Aerobic Culture - Preliminary Resulted 05/11/24 16:18 Urine - [place] Urine Culture - Final Complete Problem List/Assessment/Plan Problem List/Assessment/Plan INTUBATED HEMODYNAMICALLY LABILE ON VASOPRESSOR ABD SOFT NO BM WBC ELEVATED DRAIN IN PLACE SEROSANGUINOUS 30, 40 CC DRESSING DRY URINE OUTPUT MAINTAINED CONDITION GUARDED TRIED REACHING FAMILY TO UPDATE NURSE AT BEDSIDE CONTINUE SUPPORTIVE CARE Plan discussed with: Other My Orders My Orders Orders - SHEY COVARRUBIAS MD Procedure Category Date Status Time Anaerobic Culture MIROSLAVA 05/16/24 In Process 12:26 Gram Stain MIROSLAVA 05/16/24 In Process 12:26 Routine Bacterial MIROSLAVA 05/16/24 In Process Culture 12:26 Dietary Evaluation Review Comments: 1) Continue NPO 2) Continue current plan of care NPO SHEY COVARRUBIAS MD May 17, 2024 11:39
[2024-05-17] MEDS ORDERED: DEXTROSE (50%) 50ML SYRG IV SCH (12:30)
[2024-05-17] MEDS: ACCU-CHEK COMFORT CURVE STRIP VI SCH (17:01)
[2024-05-17] MEDS: InsuLIN REG 1unit/0.01ml Soln (100units/ml) SC SCH (17:02)
[2024-05-17] MEDS: TPN PER PHARMACY IV NR (19:46)
[2024-05-18] VITALS (113 sets, daily range): BP systolic 79–201; BP diastolic 21–82; PULSE 76–161; RESP 14–92; TEMP 98.4–100.6; O2SAT 88–100
[2024-05-18 04:22] LABS: Alanine Aminotransferase < 9 U/L (7-40); Albumin 2.2 g/dL (3.2-4.8); Alkaline Phosphatase 47 U/L (46-116); Anion Gap 7 (5-15); Aspartate Aminotransferase < 8 U/L (13-40); BUN/Creatinine Ratio 9.1 (10.0-20.0); Blood Urea Nitrogen 7 mg/dL (9-23); Calcium 6.9 mg/dL (8.7-10.4); Carbon Dioxide 22 mmol/L (20-31); Chloride 111 mmol/L (98-107); Glucose 210 mg/dL (74-106); Magnesium 1.5 mg/dL (1.6-2.6); Potassium 3.2 mmol/L (3.5-5.1); Sodium 140 mmol/L (136-145)
[2024-05-18 04:23] LABS: Bilirubin, Total 1.2 mg/dL (0.2-1.0); Phosphorus 2.1 mg/dL (2.4-5.1); Total Protein 3.9 g/dL (5.7-8.2)
[2024-05-18 06:43] LABS: Base Excess -5.4 mmol/L (-2.0-3.0)
[2024-05-18] MEDS: POTASSIUM CHL 20MEQ/100ML 100 ML IV ONE (07:00)
[2024-05-18 07:18] LABS: Hemoglobin 7.1 g/dL (12.2-16.2)
[2024-05-18 07:23] LABS: Hematocrit 20.3 % (36.0-46.0); Mean Corpuscular Hemoglobin 30.5 pg (28.0-32.0); Mean Corpuscular Hgb Conc. 34.9 g/dL (32.0-36.0); Mean Corpuscular Volume 87.4 fL (80.0-100.0); Platelet Count (auto) 180 10^3/uL (140-450); Red Blood Cells 2.33 10^6/uL (4.0-5.20); Red Cell Distribution Width 16.4 % (11.8-14.3); White Blood Cell 10.8 10^3/uL (4.4-10.8)
[2024-05-18] MEDS: MAGNESIUM SULFATE 1GM/100ML 100 ML IV ONE ×2 (07:26→12:00)
[2024-05-18 07:29] LABS: Basophils % (manual) 0 (0.0-2.0); Blast Cells 0; Metamyelocytes % 0; Myelocytes % 0; Promyelocytes % 0
[2024-05-18] MEDS ORDERED: VANCOMYCIN PER PHARMACY 0 MG IV SCH (07:45)
--- NOTE | 2024-05-18 07:50 | DVHPN2 ---
Subjective Patient chemically sedated Reviewed: Care Plan, H&P, Labs, Medications, Previous Orders, Radiology Changes from previous H/P or p: No Changes General: Per HPI Eyes: No Pain, No Vision change, No Conjunctivae inflammation, No Eyelid inflammation, No Other, No Redness ENT: No Ear pain, No Ear discharge, No Nose pain, No Nose discharge, No Nose congestion, No Mouth pain, No Mouth swelling, No Throat pain, No Throat swelling, No Other Cardiovascular: No Chest Pain, No Palpitations, No Orthopnea, No Paroxysmal Noc. Dyspnea, No Edema, No Lt Headedness, No Other Respiratory: No Cough, No Dry, No Shortness of breath, No SOB with excertion, No Wheezing, No Hemoptysis, No Pleuritic Pain, No Sputum, No Other Gastrointestinal: Nausea Genitourinary: No Dysuria, No Frequency, No Incontinence, No Hematuria, No Retention, No Other Musculoskeletal: No other, No neck pain, No shoulder pain, No arm pain, No back pain, No hand pain, No leg pain, No foot pain Skin: No Rash, No Lesions, No Jaundice, No Bruising, No Other Objective Vitals Vital Signs Date Time Temp Pulse Resp B/P (MAP) Pulse Ox O2 Delivery O2 Flow Rate FiO2 05/18/24 07:17 126 14 107/33 (57) 96 35 05/18/24 06:45 100.4 212.7 05/18/24 06:00 Mechanical Ventilator+ 05/17/24 08:00 0 Intake/Output Intake and Output 05/18/24 07:00 Intake Total 4921.25 ml Output Total 2716 ml Balance 2205.25 ml IV Total 4495.25 ml Blood Product 426 ml Output Urine Total 2100 ml Gastric Drainage Total 226 ml Drainage Total 310 ml Other 80 ml General Appearance: Other (Intubated and sedated) HEENT: Atraumatic, PERRLA Lungs: Clear to auscultation, Normal air movement Cardiovascular: Regular rate, Normal S1, Normal S2 Abdomen: Normal bowel sounds, Soft, Other (EVARISTO drain with sanguinous fluid.) Musculoskeletal: Other (Unable to assess) Extremities: No edema Neuro: Other (Left arm weakness including manager scientific and proximal muscles) Skin: Dry, Intact, Other (Surgical incision dry and intact) Psych/Mental Status: Mental status NL, Mood NL Medications Current Medications Medications Dose Ordered Sig/Nora Route Start Time Stop Time Status Last Admin Dose Admin Ondansetron HCl 4 mg Q4HP PRN IV 05/07/24 16:30 05/16/24 05:55 4 MG Morphine Sulfate 2 mg Q4HPRN PRN IV 05/15/24 17:45 05/16/24 05:56 2 MG Fentanyl Citrate 250 ml @ 2.5 mls/hr Q24H IV 05/16/24 14:00 05/17/24 23:07 15 MLS/HR Dexmedetomidine HCl 400 mcg/ Dextrose 100 ml @ 2.36 mls/hr Q24H IV 05/16/24 14:00 Norepinephrine Bitartrate 250 ml @ 3.75 mls/hr Q24H IV 05/16/24 14:15 05/18/24 05:32 48.75 MLS/HR Midazolam HCl 50 ml @ 1 mls/hr Q24H IV 05/16/24 21:00 05/18/24 00:04 3 MLS/HR Phenylephrine HCl 250 ml @ 30 mls/hr Q8H20M IV 05/16/24 21:15 05/17/24 06:03 30 MLS/HR Acetaminophen 650 mg Q6HPRN PRN ID 05/16/24 22:30 05/16/24 22:30 650 MG Pantoprazole Sodium 40 mg DAILY IV 05/17/24 10:00 05/18/24 07:26 40 MG Amino Acids 0 ml @ 0 mls/hr PER PHARMACY IV 05/17/24 08:30 Dextrose/Sodium Chloride 1,000 ml @ 100 mls/hr Q10H IV 05/17/24 08:30 05/18/24 05:30 100 MLS/HR Diagnostic Test (Pha) 1 strip Q6HR 05/17/24 18:00 05/18/24 06:00 1 STRIP Insulin Human Regular FOLLOW SLIDING SCALE Q6HR SC 05/17/24 18:00 05/18/24 06:00 2 UNITS Dextrose 50 ml UD IV 05/17/24 12:30 Fat Emulsion Intravenous 50 ml/ Potassium Acetate 20 meq/Calcium Gluconate 4.65 meq/Magnesium Sulfate 8 meq/ Multivitamins 10 ml/Chromium/ Copper/Manganese/ Zinc 1 ml/Insulin Human Regular 4 units/Amino Acids/ Dextrose 883.04 ml @ 37 mls/hr [id number] IV 05/17/24 20:00 05/18/24 19:59 05/17/24 19:46 37 MLS/HR Meropenem 50 ml @ 17 mls/hr Q8HR IV 05/18/24 14:00 UNV Vancomycin HCl 0 ml @ 0 mls/hr UD IV 05/18/24 07:45 UNV Laboratory Results Laboratory Tests 05/18/24 03:30 Chemistry Test 05/17/24 09:26 05/18/24 03:30 Albumin 2.6 g/dL (3.2-4.8) L 2.2 g/dL (3.2-4.8) L Calcium Level 7.4 mg/dL (8.7-10.4) L 6.9 mg/dL (8.7-10.4) L Magnesium Level 1.7 mg/dL (1.6-2.6) 1.5 mg/dL (1.6-2.6) L Phosphorus Level 2.5 mg/dL (2.4-5.1) 2.1 mg/dL (2.4-5.1) L Total Protein 4.1 g/dL (5.7-8.2) L 3.9 g/dL (5.7-8.2) L Lipid panel Test 05/17/24 09:26 Triglycerides Level 125 mg/dL (< 150) LFT Test 05/17/24 09:26 05/18/24 03:30 Alanine Aminotransferase (ALT) < 9 U/L (7-40) < 9 U/L (7-40) Alkaline Phosphatase 43 U/L (46-116) L 47 U/L (46-116) Aspartate Amino Transferase (AST) < 8 U/L (13-40) L < 8 U/L (13-40) L Total Bilirubin 1.8 mg/dL (0.2-1.0) H 1.2 mg/dL (0.2-1.0) H Urinalysis Test 05/11/24 16:18 Urine Color Yellow (Yellow) Urine Clarity Clear (Clear) Urine pH 6.0 (5.0-9.0) Urine Specific [place] 1.020 (1.001-1.035) Urine Protein 1+ (Negative) H Urine Ketones 4+ (Negative) H Urine Blood Trace /uL (Negative) H Urine Nitrite Negative (Negative) Urine Bilirubin Negative (Negative) Urine Urobilinogen Normal mg/dL (Negative) Urine Leukocyte Esterase Negative /uL (Negative) Urine RBC 2 /hpf (0 - 4) Urine WBC 2 /hpf (0 - 5) Urine Squamous Epithelial Cells Few /hpf (<5) Urine Bacteria None seen /hpf (None Seen) Urine Mucus Few (None Seen) Urine Glucose Normal mg/dL (Normal) Blood Gas Results Test 05/18/24 06:38 Arterial Blood pH 7.269 (7.350-7.450) FiO2 % 30.0 Microbiology Microbiology Date/Time Source Procedure Growth Status 05/16/24 22:55 Blood Blood Culture - Preliminary NO GROWTH AFTER 24 HOURS OF INCUBATION. Resulted 05/16/24 14:20 Sputum Gram Stain - Final Resulted 05/16/24 14:20 Sputum Respiratory Culture - Preliminary Resulted 05/16/24 12:25 Abdomen Gram Stain - Final Resulted 05/16/24 12:25 Abdomen Anaerobic Culture - Preliminary Resulted 05/16/24 12:25 Abdomen Aerobic Culture - Preliminary Resulted 05/11/24 16:18 Urine - [place] Urine Culture - Final Complete Labs and/or images reviewed: Labs reviewed by me, Image(s) reviewed by me Assessment/Plan Assessment/Plan Impression: Abdominal pain due to recent robotic surgery hysterectomy and salpingo- oophorectomy History of breast cancer with bilateral mastectomies History of bowel surgery and ileostomy which Anemia due to blood loss and dilution Hypotension Chronic pain syndrome, patient takes opiates at home Hypokalemia Hypomagnesemia Anemia Plan: Events: Postop day two exploratory lap with small-bowel resection. Patient has worsening anemia. Persistently elevated vasopressor use. Metabolic acidosis noted. Patient now febrile -change IV fluids to D5 half NS at 100 mL/hr -2 units PRBC -TPN with electrolyte replacement per pharmacy -change antibiotic therapy to vancomycin and meropenem -NG tube to low intermittent suction -change ventilator settings to AC 16, tidal volume 450, peep of five, FiO2 35% -PUD, DVT prophylaxis -repeat labs, chest x-ray, ABG in a.m. Critical care time spent with patient discussing and formulating plan of care: 100 minutes. This does not include time spent performing procedures. This medical document was created using an electronic medical record system with [employer] system. Although this document has been carefully reviewed, there may still be some phonetic and typographical errors. These areas are purely typographical due to imperfections of the software programs, and do not reflect any compromise in the patient's medical care. Plan discussed with: Patient, Other (RN) My Orders Orders - ODIN MIRANDA [employer] Procedure Category Date Status Time Pantoprazole PHA 05/17/24 In Process (Protonix) 10:00 Tpn Per Pharmacy PHA 05/17/24 In Process 08:30 D5w/Sod Chl 0.45% PHA 05/17/24 In Process (D5w 1/2ns) 08:30 Communication Order ORDERS 05/17/24 Transmitted 08:24 * Dietary Consult CONS 05/17/24 Transmitted 08:35 Glucose Blood PHA 05/17/24 In Process (Accu-Chek Comfort 18:00 Insulin R (Human) PHA 05/17/24 In Process (Insulin R) 18:00 Dextrose 50% Syringe PHA 05/17/24 In Process 12:30 Amino Acid PHA 05/17/24 In Process Infusion... W/Fat 20:00 Tpn Per Pharmacy MARY BETH 05/17/24 In Process 20:00 Abg W/ Co-Ox RT 05/18/24 Logged 06:00 Complete Blood Count LAB 05/18/24 In Process 06:55 Manual Differential LAB 05/18/24 In Process 03:30 Packedcells -Active BBK 05/18/24 Logged Bleeding 07:38 Ventilator Orders RT 05/18/24 Transmitted 07:38 Meropenem 1gm Ivpb PHA 05/18/24 Logged (Merrem 1gm/ Ns) 14:00 Vancomycin Per PHA 05/18/24 Logged Pharmacy 07:45 Sodium Bicarb PHA 05/18/24 Logged 50meq/50ml Vial 07:45 Chest Portable XY 05/19/24 Logged 05:00 Chest Portable XY 05/20/24 Logged 05:00 Chest Portable XY 05/21/24 Logged 05:00 Chest Portable XY 05/22/24 Logged 05:00 Chest Portable XY 05/23/24 Logged 05:00 Abg W/ Co-Ox RT 05/19/24 Logged 05:00 Abg W/ Co-Ox RT 05/20/24 Logged 05:00 Abg W/ Co-Ox RT 05/21/24 Logged 05:00 Abg W/ Co-Ox RT 05/22/24 Logged 05:00 Abg W/ Co-Ox RT 05/23/24 Logged 05:00 Abg W/ Co-Ox RT 05/18/24 Logged 10:00 Date of Service: May 18, 2024 Billing Provider: ODIN MIRANDA NP Common Visit Codes: [id number] CARE 30-74 MIN ODIN MIRANDA NP May 18, 2024 07:50
[2024-05-18] MEDS: SODIUM BICARB 8.4% 50Meq/50ml SYR Vial IV ONE (07:57)
[2024-05-18] MEDS: VANCOMYCIN 1GM/250ML KIT 200 ML IV SCH (08:35)
[2024-05-18 09:32] LABS: Eosinophils % (manual) 2 (0-7); Lymphocytes % (manual) 4 (10.0-50.0); Monocytes % (manual) 4 (0-12); Reactive Lymphocytes 1
[2024-05-18 09:33] LABS: Anisocytosis Slight; Band Neutrophils % (manual) 28; Platelet Estimate Adequate
[2024-05-18] MEDS ORDERED: POTASSIUM PHOSPHATE 44 MEQ in D5W 5% 250 ML IV ONE (11:45)
[2024-05-18] MEDS ORDERED: MAGNESIUM SULFATE 1GM/100ML 100 ML IV SCH (12:00)
[2024-05-18] MEDS: CALCIUM GLUC 1,000mg/50ml-NS 50 ML IV ONE (12:36)
[2024-05-18] MEDS: POTASSIUM PHOSP 22MEQ(15MMOLE) in NS 100 ML IV ONE (12:39)
[2024-05-18] MEDS: MEROPENEM 1GM IVPB 50 ML IV SCH (14:00)
--- NOTE | 2024-05-18 15:22 | DVHPN2 ---
Progress Note - Dictate Date Seen: May 18, 2024 Has the PT tested + for MRSA If YES, has PT been informed?: No Medical Necessity Reason Pt with a Central, PICC or Fol: No Subjective Ms. Barrera is a 68 years old right-handed female with a history of hypertension, anemia, breast cancer, she was admitted to the [facility] on 05/07/2024 for scheduled hysterectomy and oophorectomy. Post surgically, she woke up with left-sided weakness, and MRI showed multiple stroke in the right MCA territory. During the hospital stay, she developed fall perforation, and she went through abdominal surgery on 05/16/2024 I have seen and examined the patient in the ICU, I have discussed with her nurse other medical staff, her family in the room with her. She was nonresponsive to painful stimuli, she was weak gag reflexes She has unstable H/H, and she is receiving RBC transfusion Fentanyl 250 mcg/hour, Versed 7 mg/hour, levo 24 mcg/minute CBC, 05/16/2024: Metabolic acidosis, 05/17/2024: Metabolic acidosis, 05/18/2024: Metabolic acidosis URINALYSIS, 05/11/2024: WBC: 2, URINE LEUKOCYTE ESTERASE: NEGATIVE WBC/HB/PLT/MCV, 05/04: 5.1/10.7/119/98.3, 05/17/2024: 20.4/8.5/205/86.9 PT/INR/FTT, 05/16/2024: 17.4/1.71/34.2 K, 05/09/2024: 3.9, 05/10/24:3.1, 05/12/2024: 3.4, 05/16/2024: 2.8 Lactic acid, 05/15/2024: 1.6, 05/16/2024: 1.5 LIVER FUNCTION TESTS, 05/12/2024: UNREMARKABLE, 05/16/2024: Unremarkable TBI/AST/ALT/AP, 05/18/2024: 1.2/8/ TG/HDL/LDL/HDL, 05/12/2024: 196/134/75/23 TSH, 05/12/2024: 2.01 Echocardiogram 05/14/2024: lvef 65% by visual estimate mild mitral regurg RV enlarged mild left atrium enlarged mild Carotid Doppler, 05/11/2024: 1. Occlusion of the right proximal ICA. 2. Greater than 50% stenosis of the right proximal ECA. 3. Greater than 50% stenosis of the left proximal ICA CT head, 05/11/2024: 1. Chronic lacunar infarct in right centrum semiovale. 2. Chronic periventricular ischemic changes. 3. Cerebral and cerebellar atrophy, likely age-related. 4. Advised further evaluation with MRI brain without contrast if clinically indicated CT abdomen/pelvis, 05/15/2024: Small bowel obstruction with evidence of perforation including free intraperitoneal fluid and air. Extensive subcutaneous emphysema likely secondary to bowel perforation CT abdomen/pelvis, 05/16/2024: 1. Sequelae of recent postsurgical changes as described above. Correlate with surgical history. 2. Pneumoperitoneum and free fluid in the abdomen and pelvis. 3. Large collection containing fluid and gas, predominantly in the right hemiabdomen. There is GI contrast extending into this collection from an adjacent small bowel loop. There is a component of this collection extending adjacent to the anterior superior aspect of the liver. 4. Moderate right hydronephrosis and hydroureter. The distal right ureter appears to be compressed by the large fluid collection in the right hemiabdomen. No obstructing calculus. 5. Dilated small bowel loops in the left hemiabdomen with suspected small-bowel obstruction. 6. Prominent subcutaneous edema in the ventral abdominal wall and extending caudally into the inguinal regions bilaterally, peroneal region, and anterior aspect of the left thigh. 7. Small bilateral pleural effusions with overlying atelectasis. 8. Additional findings as detailed above. CTA neck, head, 05/14/24: 1. Complete occlusion of the right cervical internal carotid artery. There may be trickle flow in distal right cervical ICA. 2. Poor flow in the right intracranial ICA likely retrograde perfusion through the contralateral left side posterior circulation through the communicating arteries. 3. High-grade stenosis at the left carotid bulb with at least 70-80% stenosis. Moderate short-segment stenosis in the left proximal ICA with at least 60% stenosis. MRI HEAD, 05/11/2024: 1. Multiple foci of restricted diffusion in the right centrum semiovale and along the right superior frontal lobe compatible with acute to subacute infarcts. There is no evidence of acute hemorrhage or significant surrounding edema. 2. Absence of flow void in the intracranial portions of the right internal carotid artery which is likely occluded. vital signs Vital Sign Date Time Temp Pulse Resp B/P (MAP) Pulse Ox O2 Delivery O2 Flow Rate FiO2 05/18/24 14:34 100 16 120/29 (59) 93 50 05/18/24 14:15 99.3 99.3 05/18/24 14:00 Mechanical Ventilator+ 05/17/24 08:00 0 Total Intake and Output 05/17/24 05/17/24 05/18/24 15:00 23:00 07:00 Intake Total 1528.25 ml 1922.25 ml 1679.00 ml Output Total 770 ml 1946 ml Balance 1528.25 ml 1152.25 ml -267.00 ml medications Current Medications Medications Dose Ordered Sig/Nora Route Start Time Stop Time Status Last Admin Dose Admin Ondansetron HCl 4 mg Q4HP PRN IV 05/07/24 16:30 05/16/24 05:55 4 MG Morphine Sulfate 2 mg Q4HPRN PRN IV 05/15/24 17:45 05/16/24 05:56 2 MG Fentanyl Citrate 250 ml @ 2.5 mls/hr Q24H IV 05/16/24 14:00 05/18/24 13:25 22.5 MLS/HR Dexmedetomidine HCl 400 mcg/ Dextrose 100 ml @ 2.36 mls/hr Q24H IV 05/16/24 14:00 Norepinephrine Bitartrate 250 ml @ 3.75 mls/hr Q24H IV 05/16/24 14:15 05/18/24 10:30 48.75 MLS/HR Midazolam HCl 50 ml @ 1 mls/hr Q24H IV 05/16/24 21:00 05/18/24 13:25 7 MLS/HR Phenylephrine HCl 250 ml @ 30 mls/hr Q8H20M IV 05/16/24 21:15 05/17/24 06:03 30 MLS/HR Acetaminophen 650 mg Q6HPRN PRN NC 05/16/24 22:30 05/16/24 22:30 650 MG Pantoprazole Sodium 40 mg DAILY IV 05/17/24 10:00 05/18/24 07:26 40 MG Amino Acids 0 ml @ 0 mls/hr PER PHARMACY IV 05/17/24 08:30 Dextrose/Sodium Chloride 1,000 ml @ 100 mls/hr Q10H IV 05/17/24 08:30 05/18/24 05:30 100 MLS/HR Diagnostic Test (Pha) 1 strip Q6HR 05/17/24 18:00 05/18/24 11:05 1 STRIP Insulin Human Regular FOLLOW SLIDING SCALE Q6HR SC 05/17/24 18:00 05/18/24 11:05 4 UNITS Dextrose 50 ml UD IV 05/17/24 12:30 Fat Emulsion Intravenous 50 ml/ Potassium Acetate 20 meq/Calcium Gluconate 4.65 meq/Magnesium Sulfate 8 meq/ Multivitamins 10 ml/Chromium/ Copper/Manganese/ Zinc 1 ml/Insulin Human Regular 4 units/Amino Acids/ Dextrose 883.04 ml @ 37 mls/hr [id number] IV 05/17/24 20:00 05/18/24 19:59 05/17/24 19:46 37 MLS/HR Meropenem 50 ml @ 17 mls/hr Q8HR IV 05/18/24 14:00 Vancomycin HCl 0 ml @ 0 mls/hr UD IV 05/18/24 07:45 Vancomycin HCl 200 ml @ 200 mls/hr Q18H IV 05/18/24 09:00 05/18/24 08:35 200 MLS/HR Fat Emulsion Intravenous 100 ml/Potassium Acetate 15 meq/ Potassium Phosphate 30 meq/ Calcium Gluconate 4.65 meq/ Magnesium Sulfate 16 meq/ Multivitamins 10 ml/Chromium/ Copper/Manganese/ Zinc 1 ml/Insulin Human Regular 8 units/Amino Acids/ Dextrose 1,039.3982 ml @ 43 mls/hr [id number] IV 05/18/24 20:00 05/19/24 19:59 objective General: the patient is well developed and nourished. No acute distress. ABDOMEN: Status post surgery MENTAL STATUS: Subjective. MENTAL STATUS: Subjective CRANIAL NERVES: Pupils are equal, round and nonreactive, very small. There are corneal reflexes and doll's eyes phenomenon. No signs of facial weakness. There are weak gagging or coughing reflexes SENSATION: No responses to pain stimuli. MOTOR: Normal tone in the upper and lower extremity. Normal muscle bulk. No fasciculations. No spontaneous movement. REFLEXES: Deep tendon reflexes are symmetrical. No pathological reflexes. CEREBELLAR/COORDINATION: Deferred GAIT/STATION: deferred. laboratory and microbiology Laboratory Tests 05/18/24 03:30 Test 05/18/24 03:30 Range/Units Serum Glucose 210 H 74-106 mg/dL Problem List Pelvic prolapse, can count urethrovesical junction, surgery repair on 05/07/2024 (Robotic supracervical hysterectomy bilateral salpingo-oophorectomy colposcopic pexy cystocele repair urethral sling partial vaginectomy) Bowel obstruction with perforation, intra-abdominal abscess, dense at [place], status post surgery 05/16/2024 Sepsis/septic shock Metabolic encephalopathy Acute right MCA territory multiple strokes Left hemiparesis Right ICA occlusion Left ICA severe stenosis Anemia Status post oophorectomy, hysterectomy Assessment/Plan Monitoring Supportive treatment ICU care Stabilize vitals/pressor drip Respiratory support/vent management IV antibiotics Oxygen Hold off Aspirin 81 mg q.d. Hold off Plavix 75 mg daily for 21 days Lipitor 20 mg daily (NPO) Up to chair Physical therapy Further address bilateral carotid stenosis CLARA on discharge Surgery on case More recommendation per clinical course This medical document was created using an electronic medical record system with [employer] dictation system. Although this document has been carefully reviewed, there may still be some phonetic and typographical errors. These areas are purely typographical due to imperfections of the software programs, and do not reflect any compromise in the patient's medical care Prognosis guarded Dietary Evaluation Review Comments: 1) Continue NPO 2) Continue current plan of care NPO Plan discussed with: Other Critical Care Time(min): 35 BRYAN FLORES MD May 18, 2024 15:21
[2024-05-18 16:02] LABS: Base Excess -4.9 mmol/L (-2.0-3.0)
--- NOTE | 2024-05-18 16:10 | CODING ---
Date of Service: May 18, 2024 Billing Provider: ODIN MIRANDA NP Common Visit Codes: [id number] CARE-EACH +30MIN ODIN MIRANDA NP May 18, 2024 16:10
[2024-05-18] MEDS: METOPROLOL TARTRATE 1MG/1ML-5ML VIAL IV ONE (16:16)
[2024-05-18] MEDS: METOPROLOL TARTRATE 1MG/1ML-5ML VIAL IV PRN (16:17)
[2024-05-18] MEDS: FUROSEMIDE 40 MG/4 ML VIAL IV ONE (16:21)
[2024-05-18] MEDS: NOREPINEPHRINE BITARTRATE 32 MG in SODIUM CHL 0.9% 218 ML IV SCH (16:22)
[2024-05-18] MEDS: AMIODARONE 450mg/250ml AE 250 ML IV SCH ×2 (16:22→23:02)
--- NOTE | 2024-05-18 16:39 | DVH ---
CHEST RADIOGRAPH Indication:worsening hypoxia Technique: Single frontal view of the chest was obtained Comparison: XY CHEST PORTABLE on DOS: 05/17/24, XY CHEST PORTABLE on DOS: 05/16/24, XY CHEST PORTABLE o n DOS: 05/16/24, XY CHEST PORTABLE on DOS: 05/15/24 FINDINGS: Lines and Tubes: Endotracheal tube in place unchanged. Enteric tube below the left diaphragm in the stomach. Central line in place from the right unchanged. Lungs: Worsening bilateral pulmonary airspace disease. Pleura: No effusion. No pneumothorax. Cardiomediastinal contours: Unremarkable Bones: No acute osseous abnormality. IMPRESSION: 1. Worsening bilateral pulmonary airspace disease. 2. No significant change in position of the life support apparatus.
[2024-05-18] MEDS: ALBUMIN 25% 100 ML IV ONE (20:12)
[2024-05-18] MEDS: TPN PER PHARMACY IV NR (20:18)
[2024-05-19] VITALS (116 sets, daily range): BP systolic 95–176; BP diastolic 18–70; PULSE 66–97; RESP 16–40; TEMP 97.9–100.2; O2SAT 84–100
[2024-05-19 04:02] LABS: Albumin 2.7 g/dL (3.2-4.8); Alkaline Phosphatase 67 U/L (46-116); Calcium 7.8 mg/dL (8.7-10.4); Carbon Dioxide 26 mmol/L (20-31); Chloride 103 mmol/L (98-107)
[2024-05-19 04:03] LABS: Anion Gap 9 (5-15); Aspartate Aminotransferase 9 U/L (13-40); BUN/Creatinine Ratio 12.5 (10.0-20.0); Bilirubin, Total 3.1 mg/dL (0.2-1.0); Blood Urea Nitrogen 9 mg/dL (9-23); Glucose 237 mg/dL (74-106); Magnesium 1.8 mg/dL (1.6-2.6); Potassium 2.6 mmol/L (3.5-5.1); Sodium 138 mmol/L (136-145); Total Protein 4.7 g/dL (5.7-8.2)
[2024-05-19 04:12] LABS: Alanine Aminotransferase < 9 U/L (7-40)
[2024-05-19 04:32] LABS: Hematocrit 32.5 % (36.0-46.0); Hemoglobin 11.1 g/dL (12.2-16.2); Mean Corpuscular Hemoglobin 29.5 pg (28.0-32.0); Mean Corpuscular Hgb Conc. 34.2 g/dL (32.0-36.0); Mean Corpuscular Volume 86.2 fL (80.0-100.0); Platelet Count (auto) 125 10^3/uL (140-450); Red Blood Cells 3.77 10^6/uL (4.0-5.20); Red Cell Distribution Width 15.5 % (11.8-14.3); White Blood Cell 12.2 10^3/uL (4.4-10.8)
[2024-05-19 04:35] LABS: Band Neutrophils % (manual) 0; Basophils % (manual) 0 (0.0-2.0); Blast Cells 0; Metamyelocytes % 0; Myelocytes % 0; Promyelocytes % 0; Reactive Lymphocytes 0
[2024-05-19 05:19] LABS: Eosinophils % (manual) 1 (0-7); Lymphocytes % (manual) 4 (10.0-50.0); Monocytes % (manual) 7 (0-12)
[2024-05-19 05:20] LABS: Large Platelets FEW; Platelet Estimate Decrea
[2024-05-19] MEDS: MAGNESIUM SULFATE 1GM/100ML 100 ML IV ONE (05:57)
--- NOTE | 2024-05-19 05:58 | DVH ---
CHEST RADIOGRAPH Indication:device placement Technique: Single frontal view of the chest was obtained COMPARISON: XY CHEST XRAY 1 VIEW on DOS: 05/18/24, XY CHEST PORTABLE on DOS: 05/17/24, XY CHEST PORTABL E on DOS: 05/16/24 FINDINGS: Lines and Tubes: Endotracheal tube, enteric catheter, right chest port and right central venous mable ter in satisfactory position. Lungs: Unchanged multifocal airspace disease. Pleura: No effusion. No pneumothorax. Cardiomediastinal contours: Unremarkable Bones: Unremarkable IMPRESSION: Lines and tubes in satisfactory position. No significant interval change.
[2024-05-19] MEDS: POTASSIUM CHL 20MEQ/100ML 100 ML IV SCH ×2 (06:03→16:27)
[2024-05-19 07:28] LABS: Base Excess 1.1 mmol/L (-2.0-3.0)
--- NOTE | 2024-05-19 09:56 | DVHPN2 ---
Progress Note Date Seen: May 18, 2024 Has the PT tested + for MRSA If YES, has PT been informed?: No Medical Necessity Reason Pt with a Central, PICC or Fol: No Objective vital signs Vital Sign Date Time Temp Pulse Resp B/P (MAP) Pulse Ox O2 Delivery O2 Flow Rate FiO2 05/19/24 09:40 20 99 Mechanical Ventilator+ 50 50 05/19/24 09:40 71 05/19/24 09:30 98.8 113/42 (65) 209.8 05/17/24 08:00 0 Total Intake and Output 05/18/24 05/18/24 05/19/24 15:00 23:00 07:00 Intake Total 1899.75 ml 1570.250 ml 1043.963 ml Output Total 2540 ml 5920 ml Balance 1899.75 ml -969.750 ml -4876.037 ml medications Current Medications Medications Dose Ordered Sig/Nora Route Start Time Stop Time Status Last Admin Dose Admin Ondansetron HCl 4 mg Q4HP PRN IV 05/07/24 16:30 05/16/24 05:55 4 MG Morphine Sulfate 2 mg Q4HPRN PRN IV 05/15/24 17:45 05/16/24 05:56 2 MG Fentanyl Citrate 250 ml @ 2.5 mls/hr Q24H IV 05/16/24 14:00 05/19/24 09:31 22.5 MLS/HR Dexmedetomidine HCl 400 mcg/ Dextrose 100 ml @ 2.36 mls/hr Q24H IV 05/16/24 14:00 Midazolam HCl 50 ml @ 1 mls/hr Q24H IV 05/16/24 21:00 05/19/24 07:24 8 MLS/HR Phenylephrine HCl 250 ml @ 30 mls/hr Q8H20M IV 05/16/24 21:15 05/17/24 06:03 30 MLS/HR Acetaminophen 650 mg Q6HPRN PRN MS 05/16/24 22:30 05/16/24 22:30 650 MG Pantoprazole Sodium 40 mg DAILY IV 05/17/24 10:00 05/19/24 07:23 40 MG Amino Acids 0 ml @ 0 mls/hr PER PHARMACY IV 05/17/24 08:30 Diagnostic Test (Pha) 1 strip Q6HR 05/17/24 18:00 05/18/24 23:36 1 STRIP Insulin Human Regular FOLLOW SLIDING SCALE Q6HR SC 05/17/24 18:00 05/19/24 06:32 8 UNITS Dextrose 50 ml UD IV 05/17/24 12:30 Meropenem 50 ml @ 17 mls/hr Q8HR IV 05/18/24 14:00 05/19/24 07:14 17 MLS/HR Vancomycin HCl 0 ml @ 0 mls/hr UD IV 05/18/24 07:45 Vancomycin HCl 200 ml @ 200 mls/hr Q18H IV 05/18/24 09:00 05/19/24 04:46 200 MLS/HR Fat Emulsion Intravenous 100 ml/Potassium Acetate 15 meq/ Potassium Phosphate 30 meq/ Calcium Gluconate 4.65 meq/ Magnesium Sulfate 16 meq/ Multivitamins 10 ml/Chromium/ Copper/Manganese/ Zinc 1 ml/Insulin Human Regular 8 units/Amino Acids/ Dextrose 1,039.3982 ml @ 43 mls/hr [id number] IV 05/18/24 20:00 05/19/24 19:59 05/18/24 20:18 43 MLS/HR Metoprolol Tartrate 1.25 mg Q6HPRN PRN IV 05/18/24 16:00 05/18/24 16:17 1.25 MG Norepinephrine Bitartrate 32 mg/ Sodium Chloride 250 ml @ 0.938 mls/ hr Q24H IV 05/18/24 16:00 05/18/24 16:22 12.188 MLS/HR Amiodarone HCl 250 ml @ 16.667 mls/ hr Q15H IV 05/18/24 22:30 05/18/24 23:02 16.667 MLS/HR Furosemide 40 mg DAILY IV 05/19/24 10:00 laboratory and microbiology Laboratory Tests 05/19/24 03:12 Test 05/19/24 03:12 Range/Units Serum Glucose 237 H 74-106 mg/dL Microbiology Date/Time Source Procedure Growth Status 05/17/24 01:52 Urine - [place] Urine Culture - Preliminary Resulted 05/16/24 22:55 Blood Blood Culture - Preliminary NO GROWTH AFTER 48 HOURS OF INCUBATION. Resulted 05/16/24 22:28 Trachea Gram Stain - Final Resulted 05/16/24 22:28 Trachea Respiratory Culture - Preliminary Resulted 05/16/24 14:20 Sputum Gram Stain - Final Resulted 05/16/24 14:20 Sputum Respiratory Culture - Preliminary Resulted Problem List/Assessment/Plan Problem List/Assessment/Plan INTUBATED HEMODYNAMICALLY LABILE ON VASOPRESSOR ABD SOFT NO BM WBC ELEVATED DRAIN IN PLACE SEROSANGUINEOUS 30, 40 CC DRESSING DRY GIVE ALBUMIN 100 CC 25 % URINE OUTPUT MAINTAINED CONDITION GUARDED TRIED REACHING FAMILY TO UPDATE NURSE AT BEDSIDE CONTINUE SUPPORTIVE CARE Plan discussed with: Patient My Orders My Orders Orders - SHEY COVARRUBIAS MD Procedure Category Date Status Time Albumin 25% (Albutein) PHA 05/19/24 Logged 10:00 Dietary Evaluation Review Comments: 1) Continue NPO 2) Continue current plan of care NPO SHEY COVARRUBIAS MD May 19, 2024 09:56
--- NOTE | 2024-05-19 09:58 | DVHPN2 ---
Progress Note Date Seen: May 19, 2024 Has the PT tested + for MRSA If YES, has PT been informed?: No Medical Necessity Reason Pt with a Central, PICC or Fol: No Objective vital signs Vital Sign Date Time Temp Pulse Resp B/P (MAP) Pulse Ox O2 Delivery O2 Flow Rate FiO2 05/19/24 09:40 20 99 Mechanical Ventilator+ 50 50 05/19/24 09:40 71 05/19/24 09:30 98.8 113/42 (65) 209.8 05/17/24 08:00 0 Total Intake and Output 05/18/24 05/18/24 05/19/24 15:00 23:00 07:00 Intake Total 1899.75 ml 1570.250 ml 1043.963 ml Output Total 2540 ml 5920 ml Balance 1899.75 ml -969.750 ml -4876.037 ml medications Current Medications Medications Dose Ordered Sig/Nora Route Start Time Stop Time Status Last Admin Dose Admin Ondansetron HCl 4 mg Q4HP PRN IV 05/07/24 16:30 05/16/24 05:55 4 MG Morphine Sulfate 2 mg Q4HPRN PRN IV 05/15/24 17:45 05/16/24 05:56 2 MG Fentanyl Citrate 250 ml @ 2.5 mls/hr Q24H IV 05/16/24 14:00 05/19/24 09:31 22.5 MLS/HR Dexmedetomidine HCl 400 mcg/ Dextrose 100 ml @ 2.36 mls/hr Q24H IV 05/16/24 14:00 Midazolam HCl 50 ml @ 1 mls/hr Q24H IV 05/16/24 21:00 05/19/24 07:24 8 MLS/HR Phenylephrine HCl 250 ml @ 30 mls/hr Q8H20M IV 05/16/24 21:15 05/17/24 06:03 30 MLS/HR Acetaminophen 650 mg Q6HPRN PRN ID 05/16/24 22:30 05/16/24 22:30 650 MG Pantoprazole Sodium 40 mg DAILY IV 05/17/24 10:00 05/19/24 07:23 40 MG Amino Acids 0 ml @ 0 mls/hr PER PHARMACY IV 05/17/24 08:30 Diagnostic Test (Pha) 1 strip Q6HR 05/17/24 18:00 05/18/24 23:36 1 STRIP Insulin Human Regular FOLLOW SLIDING SCALE Q6HR SC 05/17/24 18:00 05/19/24 06:32 8 UNITS Dextrose 50 ml UD IV 05/17/24 12:30 Meropenem 50 ml @ 17 mls/hr Q8HR IV 05/18/24 14:00 05/19/24 07:14 17 MLS/HR Vancomycin HCl 0 ml @ 0 mls/hr UD IV 05/18/24 07:45 Vancomycin HCl 200 ml @ 200 mls/hr Q18H IV 05/18/24 09:00 05/19/24 04:46 200 MLS/HR Fat Emulsion Intravenous 100 ml/Potassium Acetate 15 meq/ Potassium Phosphate 30 meq/ Calcium Gluconate 4.65 meq/ Magnesium Sulfate 16 meq/ Multivitamins 10 ml/Chromium/ Copper/Manganese/ Zinc 1 ml/Insulin Human Regular 8 units/Amino Acids/ Dextrose 1,039.3982 ml @ 43 mls/hr [id number] IV 05/18/24 20:00 05/19/24 19:59 05/18/24 20:18 43 MLS/HR Metoprolol Tartrate 1.25 mg Q6HPRN PRN IV 05/18/24 16:00 05/18/24 16:17 1.25 MG Norepinephrine Bitartrate 32 mg/ Sodium Chloride 250 ml @ 0.938 mls/ hr Q24H IV 05/18/24 16:00 05/18/24 16:22 12.188 MLS/HR Amiodarone HCl 250 ml @ 16.667 mls/ hr Q15H IV 05/18/24 22:30 05/18/24 23:02 16.667 MLS/HR Furosemide 40 mg DAILY IV 05/19/24 10:00 laboratory and microbiology Laboratory Tests 05/19/24 03:12 Test 05/19/24 03:12 Range/Units Serum Glucose 237 H 74-106 mg/dL Microbiology Date/Time Source Procedure Growth Status 05/17/24 01:52 Urine - [place] Urine Culture - Preliminary Resulted 05/16/24 22:55 Blood Blood Culture - Preliminary NO GROWTH AFTER 48 HOURS OF INCUBATION. Resulted 05/16/24 22:28 Trachea Gram Stain - Final Resulted 05/16/24 22:28 Trachea Respiratory Culture - Preliminary Resulted 05/16/24 14:20 Sputum Gram Stain - Final Resulted 05/16/24 14:20 Sputum Respiratory Culture - Preliminary Resulted Problem List/Assessment/Plan Problem List/Assessment/Plan INTUBATED HEMODYNAMICALLY LABILE ON VASOPRESSOR TRENDING DOWN ABD SOFT NO BM DRAIN IN PLACE SEROSANGUINEOUS 30, 40 CC DRESSING DRY GIVE ALBUMIN 100 CC 25 % URINE OUTPUT BETTER ON DIURETIC CONDITION GUARDED TRIED REACHING FAMILY TO UPDATE NURSE AT BEDSIDE CONTINUE SUPPORTIVE CARE Plan discussed with: Patient, Other My Orders My Orders Orders - SHEY COVARRUBIAS MD Procedure Category Date Status Time Albumin 25% (Albutein) PHA 05/19/24 Logged 10:00 Dietary Evaluation Review Comments: 1) Continue NPO 2) Continue current plan of care NPO SHEY COVARRUBIAS MD May 19, 2024 09:58
[2024-05-19] MEDS: FUROSEMIDE 40 MG/4 ML VIAL IV SCH (10:02)
[2024-05-19] MEDS: ALBUMIN 25% 100 ML IV ONE (10:44)
--- NOTE | 2024-05-19 12:19 | DVHPN2 ---
Reviewed: Care Plan, H&P, Labs, Medications, Previous Orders, Radiology Changes from previous H/P or p: No Changes General: Per HPI Eyes: No Pain, No Vision change, No Conjunctivae inflammation, No Eyelid inflammation, No Other, No Redness ENT: No Ear pain, No Ear discharge, No Nose pain, No Nose discharge, No Nose congestion, No Mouth pain, No Mouth swelling, No Throat pain, No Throat swelling, No Other Cardiovascular: No Chest Pain, No Palpitations, No Orthopnea, No Paroxysmal Noc. Dyspnea, No Edema, No Lt Headedness, No Other Respiratory: No Cough, No Dry, No Shortness of breath, No SOB with excertion, No Wheezing, No Hemoptysis, No Pleuritic Pain, No Sputum, No Other Gastrointestinal: Nausea Genitourinary: No Dysuria, No Frequency, No Incontinence, No Hematuria, No Retention, No Other Musculoskeletal: No other, No neck pain, No shoulder pain, No arm pain, No back pain, No hand pain, No leg pain, No foot pain Skin: No Rash, No Lesions, No Jaundice, No Bruising, No Other Objective Vitals Vital Signs Date Time Temp Pulse Resp B/P (MAP) Pulse Ox O2 Delivery O2 Flow Rate FiO2 05/19/24 11:54 82 20 129/41 (70) 95 50 05/19/24 10:15 99.0 210.2 05/19/24 09:40 Mechanical Ventilator+ 05/17/24 08:00 0 Intake/Output Intake and Output 05/19/24 07:00 Intake Total 4513.963 ml Output Total 8460 ml Balance -3946.037 ml IV Total 3913.963 ml Blood Product 600 ml Output Urine Total 8000 ml Gastric Drainage Total 200 ml Drainage Total 220 ml Other 40 ml General Appearance: Other (Intubated and sedated) HEENT: Atraumatic, PERRLA Lungs: Clear to auscultation, Normal air movement Cardiovascular: Regular rate, Normal S1, Normal S2 Abdomen: Normal bowel sounds, Soft, Other (EVARISTO drain with sanguinous fluid.) Musculoskeletal: Other (Unable to assess) Extremities: No edema Neuro: Other (Left arm weakness including riveter hand and proximal muscles) Skin: Dry, Intact, Other (Surgical incision dry and intact) Psych/Mental Status: Mental status NL, Mood NL Medications Current Medications Medications Dose Ordered Sig/Nora Route Start Time Stop Time Status Last Admin Dose Admin Ondansetron HCl 4 mg Q4HP PRN IV 05/07/24 16:30 05/16/24 05:55 4 MG Morphine Sulfate 2 mg Q4HPRN PRN IV 05/15/24 17:45 05/16/24 05:56 2 MG Fentanyl Citrate 250 ml @ 2.5 mls/hr Q24H IV 05/16/24 14:00 05/19/24 09:31 22.5 MLS/HR Dexmedetomidine HCl 400 mcg/ Dextrose 100 ml @ 2.36 mls/hr Q24H IV 05/16/24 14:00 Midazolam HCl 50 ml @ 1 mls/hr Q24H IV 05/16/24 21:00 05/19/24 07:24 8 MLS/HR Phenylephrine HCl 250 ml @ 30 mls/hr Q8H20M IV 05/16/24 21:15 05/17/24 06:03 30 MLS/HR Acetaminophen 650 mg Q6HPRN PRN CO 05/16/24 22:30 05/16/24 22:30 650 MG Pantoprazole Sodium 40 mg DAILY IV 05/17/24 10:00 05/19/24 07:23 40 MG Amino Acids 0 ml @ 0 mls/hr PER PHARMACY IV 05/17/24 08:30 Diagnostic Test (Pha) 1 strip Q6HR 05/17/24 18:00 05/19/24 11:01 1 STRIP Insulin Human Regular FOLLOW SLIDING SCALE Q6HR SC 05/17/24 18:00 05/19/24 11:02 4 UNITS Dextrose 50 ml UD IV 05/17/24 12:30 Meropenem 50 ml @ 17 mls/hr Q8HR IV 05/18/24 14:00 05/19/24 07:14 17 MLS/HR Vancomycin HCl 0 ml @ 0 mls/hr UD IV 05/18/24 07:45 Vancomycin HCl 200 ml @ 200 mls/hr Q18H IV 05/18/24 09:00 05/19/24 04:46 200 MLS/HR Fat Emulsion Intravenous 100 ml/Potassium Acetate 15 meq/ Potassium Phosphate 30 meq/ Calcium Gluconate 4.65 meq/ Magnesium Sulfate 16 meq/ Multivitamins 10 ml/Chromium/ Copper/Manganese/ Zinc 1 ml/Insulin Human Regular 8 units/Amino Acids/ Dextrose 1,039.3982 ml @ 43 mls/hr [id number] IV 05/18/24 20:00 05/19/24 19:59 05/18/24 20:18 43 MLS/HR Metoprolol Tartrate 1.25 mg Q6HPRN PRN IV 05/18/24 16:00 05/18/24 16:17 1.25 MG Norepinephrine Bitartrate 32 mg/ Sodium Chloride 250 ml @ 0.938 mls/ hr Q24H IV 05/18/24 16:00 05/18/24 16:22 12.188 MLS/HR Amiodarone HCl 250 ml @ 16.667 mls/ hr Q15H IV 05/18/24 22:30 05/18/24 23:02 16.667 MLS/HR Furosemide 40 mg DAILY IV 05/19/24 10:00 05/19/24 10:02 40 MG Fat Emulsion Intravenous 100 ml/Potassium Chloride 10 meq/ Potassium Acetate 10 meq/Potassium Phosphate 40 meq/ Calcium Gluconate 4.65 meq/ Magnesium Sulfate 12 meq/ Multivitamins 10 ml/Chromium/ Copper/Manganese/ Zinc 1 ml/Insulin Human Regular 8 units/Amino Acids/ Dextrose 1,043.1709 ml @ 42.795 m... [id number] IV 05/19/24 20:00 05/20/24 20:22 Laboratory Results Laboratory Tests 05/19/24 03:12 Chemistry Test 05/19/24 03:12 Albumin 2.7 g/dL (3.2-4.8) L Calcium Level 7.8 mg/dL (8.7-10.4) L Magnesium Level 1.8 mg/dL (1.6-2.6) Phosphorus Level 2.0 mg/dL (2.4-5.1) L Total Protein 4.7 g/dL (5.7-8.2) L LFT Test 05/19/24 03:12 Alanine Aminotransferase (ALT) < 9 U/L (7-40) Alkaline Phosphatase 67 U/L (46-116) Aspartate Amino Transferase (AST) 9 U/L (13-40) L Total Bilirubin 3.1 mg/dL (0.2-1.0) H Urinalysis Test 05/11/24 16:18 Urine Color Yellow (Yellow) Urine Clarity Clear (Clear) Urine pH 6.0 (5.0-9.0) Urine Specific [place] 1.020 (1.001-1.035) Urine Protein 1+ (Negative) H Urine Ketones 4+ (Negative) H Urine Blood Trace /uL (Negative) H Urine Nitrite Negative (Negative) Urine Bilirubin Negative (Negative) Urine Urobilinogen Normal mg/dL (Negative) Urine Leukocyte Esterase Negative /uL (Negative) Urine RBC 2 /hpf (0 - 4) Urine WBC 2 /hpf (0 - 5) Urine Squamous Epithelial Cells Few /hpf (<5) Urine Bacteria None seen /hpf (None Seen) Urine Mucus Few (None Seen) Urine Glucose Normal mg/dL (Normal) Blood Gas Results Test 05/18/24 14:50 05/19/24 07:19 Arterial Blood pH 7.285 (7.350-7.450) 7.391 (7.350-7.450) FiO2 % 50.0 60.0 Microbiology Microbiology Date/Time Source Procedure Growth Status 05/17/24 01:52 Urine - [place] Urine Culture - Preliminary Yeast, not Shawanda albicans Resulted 05/16/24 22:55 Blood Blood Culture - Preliminary NO GROWTH AFTER 48 HOURS OF INCUBATION. Resulted 05/16/24 22:28 Trachea Gram Stain - Final Complete 05/16/24 22:28 Trachea Respiratory Culture - Final Complete 05/16/24 14:20 Sputum Gram Stain - Final Resulted 05/16/24 14:20 Sputum Respiratory Culture - Preliminary Resulted Labs and/or images reviewed: Labs reviewed by me, Image(s) reviewed by me Assessment/Plan Assessment/Plan Covering for nurse practitioner Mynor Avalos Acute Hypoxic respiratory failure status post intubated on 40 percent FiO2 Abdominal pain due to recent robotic surgery hysterectomy and salpingo- oophorectomy History of breast cancer with bilateral mastectomies History of bowel surgery and ileostomy which Anemia due to blood loss and dilution Hypotension Chronic pain syndrome, patient takes opiates at home Hypokalemia Hypomagnesemia Anemia Urine: Yeast not Shawanda Time spent 65 minutes Patient is seen in ICU Condition guarded Plan discussed with: Patient Date of Service: May 19, 2024 Billing Provider: RADHA MUIR MD Common Visit Codes: [id number] CARE 30-74 MIN RADHA MUIR MD May 19, 2024 12:19
--- NOTE | 2024-05-19 19:13 | DVHPN2 ---
Progress Note - Dictate Date Seen: May 19, 2024 Has the PT tested + for MRSA If YES, has PT been informed?: No Medical Necessity Reason Pt with a Central, PICC or Fol: No Subjective Ms. Barrera is a 68 years old right-handed female with a history of hypertension, anemia, breast cancer, she was admitted to the [facility] on 05/07/2024 for scheduled hysterectomy and oophorectomy. Post surgically, she woke up with left-sided weakness, and MRI showed multiple stroke in the right MCA territory. During the hospital stay, she developed fall perforation, and she went through abdominal surgery on 05/16/2024 I have seen and examined the patient in the ICU, I have discussed with her nurse. She was nonresponsive to painful stimuli, she has weak gag reflexes She was responsive when she was repositioned She has jaundice Fentanyl 225 mcg/hour, Versed 8 mg/hour, levo 6 mcg/minute, FiO2: 45% CBC, 05/16/2024: Metabolic acidosis, 05/17/2024: Metabolic acidosis, 05/18/2024: Metabolic acidosis URINALYSIS, 05/11/2024: WBC: 2, URINE LEUKOCYTE ESTERASE: NEGATIVE WBC/HB/PLT/MCV, 05/04: 5.1/10.7/119/98.3, 05/17/2024: 20.4/8.5/205/86.9 05/19/2024: 12.2/11.1/125/86.2 PT/INR/FTT, 05/16/2024: 17.4/1.71/34.2 K, 05/09/2024: 3.9, 05/10/24:3.1, 05/12/2024: 3.4, 05/16/2024: 2.8 Lactic acid, 05/15/2024: 1.6, 05/16/2024: 1.5 LIVER FUNCTION TESTS, 05/12/2024: UNREMARKABLE, 05/16/2024: Unremarkable TBI/AST/ALT/AP, 05/18/2024: 1.2//47, 05/19/2024: 3.1/04/23/2067 TG/HDL/LDL/HDL, 05/12/2024: 196/134/75/23 TSH, 05/12/2024: 2.01 Echocardiogram 05/14/2024: lvef 65% by visual estimate mild mitral regurg RV enlarged mild left atrium enlarged mild Carotid Doppler, 05/11/2024: 1. Occlusion of the right proximal ICA. 2. Greater than 50% stenosis of the right proximal ECA. 3. Greater than 50% stenosis of the left proximal ICA CT head, 05/11/2024: 1. Chronic lacunar infarct in right centrum semiovale. 2. Chronic periventricular ischemic changes. 3. Cerebral and cerebellar atrophy, likely age-related. 4. Advised further evaluation with MRI brain without contrast if clinically indicated CT abdomen/pelvis, 05/15/2024: Small bowel obstruction with evidence of perforation including free intraperitoneal fluid and air. Extensive subcutaneous emphysema likely secondary to bowel perforation CT abdomen/pelvis, 05/16/2024: 1. Sequelae of recent postsurgical changes as described above. Correlate with surgical history. 2. Pneumoperitoneum and free fluid in the abdomen and pelvis. 3. Large collection containing fluid and gas, predominantly in the right hemiabdomen. There is GI contrast extending into this collection from an adjacent small bowel loop. There is a component of this collection extending adjacent to the anterior superior aspect of the liver. 4. Moderate right hydronephrosis and hydroureter. The distal right ureter appears to be compressed by the large fluid collection in the right hemiabdomen. No obstructing calculus. 5. Dilated small bowel loops in the left hemiabdomen with suspected small-bowel obstruction. 6. Prominent subcutaneous edema in the ventral abdominal wall and extending caudally into the inguinal regions bilaterally, peroneal region, and anterior aspect of the left thigh. 7. Small bilateral pleural effusions with overlying atelectasis. 8. Additional findings as detailed above. CTA neck, head, 05/14/24: 1. Complete occlusion of the right cervical internal carotid artery. There may be trickle flow in distal right cervical ICA. 2. Poor flow in the right intracranial ICA likely retrograde perfusion through the contralateral left side posterior circulation through the communicating arteries. 3. High-grade stenosis at the left carotid bulb with at least 70-80% stenosis. Moderate short-segment stenosis in the left proximal ICA with at least 60% stenosis. MRI HEAD, 05/11/2024: 1. Multiple foci of restricted diffusion in the right centrum semiovale and along the right superior frontal lobe compatible with acute to subacute infarcts. There is no evidence of acute hemorrhage or significant surrounding edema. 2. Absence of flow void in the intracranial portions of the right internal carotid artery which is likely occluded. vital signs Vital Sign Date Time Temp Pulse Resp B/P (MAP) Pulse Ox O2 Delivery O2 Flow Rate FiO2 05/19/24 18:45 99.7 80 21 109/38 (61) 98 211.5 05/19/24 18:30 45 05/19/24 18:00 Mechanical Ventilator+ 05/17/24 08:00 0 Total Intake and Output 05/18/24 05/18/24 05/19/24 15:00 23:00 07:00 Intake Total 1899.75 ml 1570.250 ml 1043.963 ml Output Total 2540 ml 5920 ml Balance 1899.75 ml -969.750 ml -4876.037 ml medications Current Medications Medications Dose Ordered Sig/Nora Route Start Time Stop Time Status Last Admin Dose Admin Ondansetron HCl 4 mg Q4HP PRN IV 05/07/24 16:30 05/16/24 05:55 4 MG Morphine Sulfate 2 mg Q4HPRN PRN IV 05/15/24 17:45 05/16/24 05:56 2 MG Fentanyl Citrate 250 ml @ 2.5 mls/hr Q24H IV 05/16/24 14:00 05/19/24 09:31 22.5 MLS/HR Dexmedetomidine HCl 400 mcg/ Dextrose 100 ml @ 2.36 mls/hr Q24H IV 05/16/24 14:00 Midazolam HCl 50 ml @ 1 mls/hr Q24H IV 05/16/24 21:00 05/19/24 13:09 8 MLS/HR Phenylephrine HCl 250 ml @ 30 mls/hr Q8H20M IV 05/16/24 21:15 05/17/24 06:03 30 MLS/HR Acetaminophen 650 mg Q6HPRN PRN NE 05/16/24 22:30 05/16/24 22:30 650 MG Pantoprazole Sodium 40 mg DAILY IV 05/17/24 10:00 05/19/24 07:23 40 MG Amino Acids 0 ml @ 0 mls/hr PER PHARMACY IV 05/17/24 08:30 Diagnostic Test (Pha) 1 strip Q6HR 05/17/24 18:00 05/19/24 16:36 1 STRIP Insulin Human Regular FOLLOW SLIDING SCALE Q6HR SC 05/17/24 18:00 05/19/24 16:38 4 UNITS Dextrose 50 ml UD IV 05/17/24 12:30 Meropenem 50 ml @ 17 mls/hr Q8HR IV 05/18/24 14:00 05/19/24 12:55 17 MLS/HR Vancomycin HCl 0 ml @ 0 mls/hr UD IV 05/18/24 07:45 Vancomycin HCl 200 ml @ 200 mls/hr Q18H IV 05/18/24 09:00 05/19/24 04:46 200 MLS/HR Fat Emulsion Intravenous 100 ml/Potassium Acetate 15 meq/ Potassium Phosphate 30 meq/ Calcium Gluconate 4.65 meq/ Magnesium Sulfate 16 meq/ Multivitamins 10 ml/Chromium/ Copper/Manganese/ Zinc 1 ml/Insulin Human Regular 8 units/Amino Acids/ Dextrose 1,039.3982 ml @ 43 mls/hr [id number] IV 05/18/24 20:00 05/19/24 19:59 05/18/24 20:18 43 MLS/HR Metoprolol Tartrate 1.25 mg Q6HPRN PRN IV 05/18/24 16:00 05/18/24 16:17 1.25 MG Norepinephrine Bitartrate 32 mg/ Sodium Chloride 250 ml @ 0.938 mls/ hr Q24H IV 05/18/24 16:00 05/19/24 13:03 5.625 MLS/HR Amiodarone HCl 250 ml @ 16.667 mls/ hr Q15H IV 05/18/24 22:30 05/19/24 12:55 16.667 MLS/HR Furosemide 40 mg DAILY IV 05/19/24 10:00 05/19/24 10:02 40 MG Fat Emulsion Intravenous 100 ml/Potassium Chloride 10 meq/ Potassium Acetate 10 meq/Potassium Phosphate 40 meq/ Calcium Gluconate 4.65 meq/ Magnesium Sulfate 12 meq/ Multivitamins 10 ml/Chromium/ Copper/Manganese/ Zinc 1 ml/Insulin Human Regular 8 units/Amino Acids/ Dextrose 1,043.1709 ml @ 43 mls/hr [id number] IV 05/19/24 20:00 05/20/24 20:15 Potassium Chloride 100 ml @ 50 mls/hr Q2H IV 05/19/24 16:30 05/19/24 20:29 05/19/24 17:18 50 MLS/HR objective General: the patient is well developed and nourished. No acute distress. ABDOMEN: Status post surgery MENTAL STATUS: Subjective. MENTAL STATUS: Subjective CRANIAL NERVES: Pupils are equal, round and nonreactive, very small. There are corneal reflexes and doll's eyes phenomenon. No signs of facial weakness. There are weak gagging or coughing reflexes SENSATION: No responses to pain stimuli. MOTOR: Normal tone in the upper and lower extremity. Normal muscle bulk. No fasciculations. No spontaneous movement. REFLEXES: Deep tendon reflexes are symmetrical. No pathological reflexes. CEREBELLAR/COORDINATION: Deferred GAIT/STATION: deferred. laboratory and microbiology Laboratory Tests 05/19/24 03:12 Test 05/19/24 03:12 Range/Units Serum Glucose 237 H 74-106 mg/dL Problem List Pelvic prolapse, can count urethrovesical junction, surgery repair on 05/07/2024 (Robotic supracervical hysterectomy bilateral salpingo-oophorectomy colposcopic pexy cystocele repair urethral sling partial vaginectomy) Bowel obstruction with perforation, intra-abdominal abscess, dense at [place], status post surgery 05/16/2024 Sepsis/septic shock Metabolic encephalopathy Acute right MCA territory multiple strokes Left hemiparesis Right ICA occlusion Left ICA severe stenosis Anemia Status post oophorectomy, hysterectomy Assessment/Plan Monitoring Supportive treatment ICU care Stabilize vitals/pressor drip Respiratory support/vent management IV antibiotics Oxygen Hold off Aspirin 81 mg q.d. Hold off Plavix 75 mg daily for 21 days Lipitor 20 mg daily (NPO) TPN Up to chair Physical therapy Further address bilateral carotid stenosis CLARA on discharge Surgery on case More recommendation per clinical course This medical document was created using an electronic medical record system with [employer] dictation system. Although this document has been carefully reviewed, there may still be some phonetic and typographical errors. These areas are purely typographical due to imperfections of the software programs, and do not reflect any compromise in the patient's medical care Prognosis Guarded Dietary Evaluation Review Comments: 1) Continue NPO 2) Continue current plan of care NPO Plan discussed with: Other Critical Care Time(min): 35 BRYAN FLORES MD May 19, 2024 19:13
[2024-05-19] MEDS: POTASSIUM CHLORIDE IV NR (20:10)
[2024-05-19] MEDS: [UNRECOGNIZED DRUG - OTHER] IV NR (20:10)
[2024-05-19] MEDS: POTASSIUM ACETATE IV NR (20:10)
[2024-05-19] MEDS: FAT EMULSION IV NR (20:10)
[2024-05-20] VITALS (114 sets, daily range): BP systolic 41–151; BP diastolic 21–71; PULSE 67–91; RESP 18–38; TEMP 98.8–100; O2SAT 73–100
[2024-05-20 04:25] LABS: Hematocrit 29.8 % (36.0-46.0); Hemoglobin 10.5 g/dL (12.2-16.2); Mean Corpuscular Hemoglobin 30.2 pg (28.0-32.0); Mean Corpuscular Hgb Conc. 35.1 g/dL (32.0-36.0); Mean Corpuscular Volume 86.1 fL (80.0-100.0); Platelet Count (auto) 113 10^3/uL (140-450); Red Blood Cells 3.46 10^6/uL (4.0-5.20); Red Cell Distribution Width 15.1 % (11.8-14.3); White Blood Cell 8.1 10^3/uL (4.4-10.8)
[2024-05-20 04:34] LABS: Albumin 2.9 g/dL (3.2-4.8); Alkaline Phosphatase 89 U/L (46-116); Calcium 7.9 mg/dL (8.7-10.4); Chloride 99 mmol/L (98-107)
[2024-05-20 04:35] LABS: Anion Gap 8 (5-15); Aspartate Aminotransferase 16 U/L (13-40); Bilirubin, Total 3.5 mg/dL (0.2-1.0); Blood Urea Nitrogen 14 mg/dL (9-23); Carbon Dioxide 29 mmol/L (20-31); Glucose 187 mg/dL (74-106); Potassium 2.6 mmol/L (3.5-5.1); Sodium 136 mmol/L (136-145); Total Protein 5.1 g/dL (5.7-8.2)
[2024-05-20 04:45] LABS: Alanine Aminotransferase < 9 U/L (7-40)
[2024-05-20 04:56] LABS: Magnesium 1.8 mg/dL (1.6-2.6)
[2024-05-20 05:11] LABS: Band Neutrophils % (manual) 0; Basophils % (manual) 0 (0.0-2.0); Blast Cells 0; Metamyelocytes % 0; Myelocytes % 0; Promyelocytes % 0; Reactive Lymphocytes 0
--- NOTE | 2024-05-20 05:23 | DVH ---
CHEST RADIOGRAPH Indication:device placement Technique: Single frontal view of the chest was obtained COMPARISON: XY CHEST PORTABLE on DOS: 05/19/24, XY CHEST XRAY 1 VIEW on DOS: 05/18/24, XY CHEST PORTABL E on DOS: 05/17/24 FINDINGS: Lines and Tubes: Endotracheal tube, enteric catheter and right chest port and right central venous ca theter in satisfactory position. Lungs: Patchy bilateral airspace disease. Pleura: No effusion. No pneumothorax. Cardiomediastinal contours: Unremarkable Bones: Unremarkable IMPRESSION: Lines and tubes in satisfactory position. No significant interval change.
[2024-05-20 06:41] LABS: Eosinophils % (manual) 1 (0-7); Lymphocytes % (manual) 4 (10.0-50.0); Monocytes % (manual) 12 (0-12); Platelet Estimate Decreased; Smudge Cells 2 /100 WBC
[2024-05-20] MEDS: POTASSIUM CHL 20MEQ/100ML 100 ML IV SCH ×2 (08:20→16:44)
[2024-05-20] MEDS: MAGNESIUM SULFATE 1GM/100ML 100 ML IV SCH (08:20)
[2024-05-20 08:27] LABS: Base Excess 6.3 mmol/L (-2.0-3.0)
--- NOTE | 2024-05-20 08:34 | DVHPN2 ---
Reviewed: Care Plan, H&P, Labs, Medications, Previous Orders, Radiology Changes from previous H/P or p: No Changes General: Per HPI Eyes: No Pain, No Vision change, No Conjunctivae inflammation, No Eyelid inflammation, No Other, No Redness ENT: No Ear pain, No Ear discharge, No Nose pain, No Nose discharge, No Nose congestion, No Mouth pain, No Mouth swelling, No Throat pain, No Throat swelling, No Other Cardiovascular: No Chest Pain, No Palpitations, No Orthopnea, No Paroxysmal Noc. Dyspnea, No Edema, No Lt Headedness, No Other Respiratory: No Cough, No Dry, No Shortness of breath, No SOB with excertion, No Wheezing, No Hemoptysis, No Pleuritic Pain, No Sputum, No Other Gastrointestinal: Nausea Genitourinary: No Dysuria, No Frequency, No Incontinence, No Hematuria, No Retention, No Other Musculoskeletal: No other, No neck pain, No shoulder pain, No arm pain, No back pain, No hand pain, No leg pain, No foot pain Skin: No Rash, No Lesions, No Jaundice, No Bruising, No Other Objective Vitals Vital Signs Date Time Temp Pulse Resp B/P (MAP) Pulse Ox O2 Delivery O2 Flow Rate FiO2 05/20/24 08:10 77 20 134/37 (69) 100 35 05/20/24 07:41 Mechanical Ventilator+ 05/20/24 07:30 99.7 211.5 Intake/Output Intake and Output 05/20/24 07:00 Intake Total 2933.136 ml Output Total 6119 ml Balance -3185.864 ml IV Total 2933.136 ml Output Urine Total 5800 ml Gastric Drainage Total 275 ml Drainage Total 32 ml Other 12 ml General Appearance: Other (Intubated and sedated) HEENT: Atraumatic, PERRLA Lungs: Clear to auscultation, Normal air movement Cardiovascular: Regular rate, Normal S1, Normal S2 Abdomen: Normal bowel sounds, Soft, Other (EVARISTO drain with sanguinous fluid.) Musculoskeletal: Other (Unable to assess) Extremities: No edema Neuro: Other (Left arm weakness including operations officer and proximal muscles) Skin: Dry, Intact, Other (Surgical incision dry and intact) Psych/Mental Status: Mental status NL, Mood NL Medications Current Medications Medications Dose Ordered Sig/Nora Route Start Time Stop Time Status Last Admin Dose Admin Ondansetron HCl 4 mg Q4HP PRN IV 05/07/24 16:30 05/16/24 05:55 4 MG Morphine Sulfate 2 mg Q4HPRN PRN IV 05/15/24 17:45 05/16/24 05:56 2 MG Fentanyl Citrate 250 ml @ 2.5 mls/hr Q24H IV 05/16/24 14:00 05/20/24 05:33 25 MLS/HR Dexmedetomidine HCl 400 mcg/ Dextrose 100 ml @ 2.36 mls/hr Q24H IV 05/16/24 14:00 Midazolam HCl 50 ml @ 1 mls/hr Q24H IV 05/16/24 21:00 05/20/24 05:35 15 MLS/HR Phenylephrine HCl 250 ml @ 30 mls/hr Q8H20M IV 05/16/24 21:15 05/17/24 06:03 30 MLS/HR Acetaminophen 650 mg Q6HPRN PRN SD 05/16/24 22:30 05/16/24 22:30 650 MG Pantoprazole Sodium 40 mg DAILY IV 05/17/24 10:00 05/20/24 08:20 40 MG Amino Acids 0 ml @ 0 mls/hr PER PHARMACY IV 05/17/24 08:30 Diagnostic Test (Pha) 1 strip Q6HR 05/17/24 18:00 05/20/24 00:00 1 STRIP Insulin Human Regular FOLLOW SLIDING SCALE Q6HR SC 05/17/24 18:00 05/20/24 05:36 4 UNITS Dextrose 50 ml UD IV 05/17/24 12:30 Meropenem 50 ml @ 17 mls/hr Q8HR IV 05/18/24 14:00 05/20/24 05:36 17 MLS/HR Vancomycin HCl 0 ml @ 0 mls/hr UD IV 05/18/24 07:45 Vancomycin HCl 200 ml @ 200 mls/hr Q18H IV 05/18/24 09:00 05/19/24 21:05 200 MLS/HR Metoprolol Tartrate 1.25 mg Q6HPRN PRN IV 05/18/24 16:00 05/18/24 16:17 1.25 MG Norepinephrine Bitartrate 32 mg/ Sodium Chloride 250 ml @ 0.938 mls/ hr Q24H IV 05/18/24 16:00 05/19/24 13:03 5.625 MLS/HR Amiodarone HCl 250 ml @ 16.667 mls/ hr Q15H IV 05/18/24 22:30 05/20/24 05:31 16.667 MLS/HR Furosemide 40 mg DAILY IV 05/19/24 10:00 05/19/24 10:02 40 MG Fat Emulsion Intravenous 100 ml/Potassium Chloride 10 meq/ Potassium Acetate 10 meq/Potassium Phosphate 40 meq/ Calcium Gluconate 4.65 meq/ Magnesium Sulfate 12 meq/ Multivitamins 10 ml/Chromium/ Copper/Manganese/ Zinc 1 ml/Insulin Human Regular 8 units/Amino Acids/ Dextrose 1,043.1709 ml @ 43 mls/hr [id number] IV 05/19/24 20:00 05/20/24 20:15 05/19/24 20:10 43 MLS/HR Potassium Chloride 100 ml @ 50 mls/hr Q2H IV 05/20/24 08:15 05/20/24 14:14 05/20/24 08:20 50 MLS/HR Magnesium Sulfate/ Dextrose 100 ml @ 100 mls/hr Q1HR IV 05/20/24 09:00 05/20/24 10:59 05/20/24 08:20 100 MLS/HR Laboratory Results Laboratory Tests 05/20/24 03:23 Chemistry Test 05/20/24 03:23 Albumin 2.9 g/dL (3.2-4.8) L Calcium Level 7.9 mg/dL (8.7-10.4) L Magnesium Level 1.8 mg/dL (1.6-2.6) Phosphorus Level 2.0 mg/dL (2.4-5.1) L Total Protein 5.1 g/dL (5.7-8.2) L LFT Test 05/20/24 03:23 Alanine Aminotransferase (ALT) < 9 U/L (7-40) Alkaline Phosphatase 89 U/L (46-116) Aspartate Amino Transferase (AST) 16 U/L (13-40) Total Bilirubin 3.5 mg/dL (0.2-1.0) H Urinalysis Test 05/11/24 16:18 Urine Color Yellow (Yellow) Urine Clarity Clear (Clear) Urine pH 6.0 (5.0-9.0) Urine Specific [place] 1.020 (1.001-1.035) Urine Protein 1+ (Negative) H Urine Ketones 4+ (Negative) H Urine Blood Trace /uL (Negative) H Urine Nitrite Negative (Negative) Urine Bilirubin Negative (Negative) Urine Urobilinogen Normal mg/dL (Negative) Urine Leukocyte Esterase Negative /uL (Negative) Urine RBC 2 /hpf (0 - 4) Urine WBC 2 /hpf (0 - 5) Urine Squamous Epithelial Cells Few /hpf (<5) Urine Bacteria None seen /hpf (None Seen) Urine Mucus Few (None Seen) Urine Glucose Normal mg/dL (Normal) Blood Gas Results Test 05/20/24 07:50 Arterial Blood pH 7.483 (7.350-7.450) FiO2 % 35.0 Microbiology Microbiology Date/Time Source Procedure Growth Status 05/17/24 01:52 Urine - [place] Urine Culture - Preliminary Yeast, not Shawanda albicans Resulted 05/16/24 22:55 Blood Blood Culture - Preliminary NO GROWTH AFTER 72 HOURS OF INCUBATION. Resulted 05/16/24 22:28 Trachea Gram Stain - Final Complete 05/16/24 22:28 Trachea Respiratory Culture - Final Complete 05/16/24 14:20 Sputum Gram Stain - Final Resulted 05/16/24 14:20 Sputum Respiratory Culture - Preliminary Resulted Labs and/or images reviewed: Labs reviewed by me, Image(s) reviewed by me Assessment/Plan Assessment/Plan Covering for nurse practitioner Mynor Avalos Acute Hypoxic respiratory failure status post intubated on 40 percent FiO2 Abdominal pain due to recent robotic surgery hysterectomy and salpingo- oophorectomy History of breast cancer with bilateral mastectomies History of bowel surgery and ileostomy which Anemia due to blood loss and dilution Hypotension Chronic pain syndrome, patient takes opiates at home Hypokalemia Hypomagnesemia Anemia Urine: Yeast not Shawanda, preliminary report, await final report Acute hypokalemia potassium 2.6: Replace potassium Hypomagnesemia potassium 1.8, magnesium 2 g IV once Time spent 65 minutes Patient is seen in ICU Condition guarded Plan discussed with: Patient My Orders Orders - RADHA MUIR MD Procedure Category Date Status Time Potassium Chl PHA 05/20/24 In Process 20meq/100ml 08:15 Magnesium Sulfate PHA 05/20/24 In Process 1gm/100ml 09:00 Date of Service: May 20, 2024 Billing Provider: RADHA MUIR MD Common Visit Codes: [id number] CARE 30-74 MIN RADHA MUIR MD May 20, 2024 08:34
--- NOTE | 2024-05-20 20:48 | DVHPN2 ---
Progress Note - Dictate Date Seen: May 20, 2024 Has the PT tested + for MRSA If YES, has PT been informed?: No Medical Necessity Reason Pt with a Central, PICC or Fol: No Subjective Ms. Barrera is a 68 years old right-handed female with a history of hypertension, anemia, breast cancer, she was admitted to the [facility] on 05/07/2024 for scheduled hysterectomy and oophorectomy. Post surgically, she woke up with left-sided weakness, and MRI showed multiple stroke in the right MCA territory. During the hospital stay, she developed fall perforation, and she went through abdominal surgery on 05/16/2024 I have seen and examined the patient in the ICU, I have discussed with her nurse. She is nonresponsive to painful stimuli, she has gag reflexes She has jaundice The drainage looks better today Fentanyl 250 mcg/hour, Versed 15 mg/hour, levo 6 mcg/minute, FiO2: 30% CBC, 05/16/2024: Metabolic acidosis, 05/17/2024: Metabolic acidosis, 05/18/2024: Metabolic acidosis URINALYSIS, 05/11/2024: WBC: 2, URINE LEUKOCYTE ESTERASE: NEGATIVE WBC/HB/PLT/MCV, 05/04: 5.1/10.7/119/98.3, 05/17/2024: 20.4/8.5/205/86.9 05/19/2024: 12.2/11.1/125/86.2, 05/20/2024: 8.1/10.5/113/86.1 PT/INR/FTT, 05/16/2024: 17.4/1.71/34.2 K, 05/09/2024: 3.9, 05/10/24:3.1, 05/12/2024: 3.4, 05/16/2024: 2.8 Lactic acid, 05/15/2024: 1.6, 05/16/2024: 1.5 LIVER FUNCTION TESTS, 05/12/2024: UNREMARKABLE, 05/16/2024: Unremarkable TBI/AST/ALT/AP, 05/18/2024: 1.2/03/23/47, 05/19/2024: 3.1/04/23/2067 TG/HDL/LDL/HDL, 05/12/2024: 196/134/75/23 TSH, 05/12/2024: 2.01 Echocardiogram 05/14/2024: lvef 65% by visual estimate mild mitral regurg RV enlarged mild left atrium enlarged mild Carotid Doppler, 05/11/2024: 1. Occlusion of the right proximal ICA. 2. Greater than 50% stenosis of the right proximal ECA. 3. Greater than 50% stenosis of the left proximal ICA CT head, 05/11/2024: 1. Chronic lacunar infarct in right centrum semiovale. 2. Chronic periventricular ischemic changes. 3. Cerebral and cerebellar atrophy, likely age-related. 4. Advised further evaluation with MRI brain without contrast if clinically indicated CT abdomen/pelvis, 05/15/2024: Small bowel obstruction with evidence of perforation including free intraperitoneal fluid and air. Extensive subcutaneous emphysema likely secondary to bowel perforation CT abdomen/pelvis, 05/16/2024: 1. Sequelae of recent postsurgical changes as described above. Correlate with surgical history. 2. Pneumoperitoneum and free fluid in the abdomen and pelvis. 3. Large collection containing fluid and gas, predominantly in the right hemiabdomen. There is GI contrast extending into this collection from an adjacent small bowel loop. There is a component of this collection extending adjacent to the anterior superior aspect of the liver. 4. Moderate right hydronephrosis and hydroureter. The distal right ureter appears to be compressed by the large fluid collection in the right hemiabdomen. No obstructing calculus. 5. Dilated small bowel loops in the left hemiabdomen with suspected small-bowel obstruction. 6. Prominent subcutaneous edema in the ventral abdominal wall and extending caudally into the inguinal regions bilaterally, peroneal region, and anterior aspect of the left thigh. 7. Small bilateral pleural effusions with overlying atelectasis. 8. Additional findings as detailed above. CTA neck, head, 05/14/24: 1. Complete occlusion of the right cervical internal carotid artery. There may be trickle flow in distal right cervical ICA. 2. Poor flow in the right intracranial ICA likely retrograde perfusion through the contralateral left side posterior circulation through the communicating arteries. 3. High-grade stenosis at the left carotid bulb with at least 70-80% stenosis. Moderate short-segment stenosis in the left proximal ICA with at least 60% stenosis. MRI HEAD, 05/11/2024: 1. Multiple foci of restricted diffusion in the right centrum semiovale and along the right superior frontal lobe compatible with acute to subacute infarcts. There is no evidence of acute hemorrhage or significant surrounding edema. 2. Absence of flow void in the intracranial portions of the right internal carotid artery which is likely occluded. vital signs Vital Sign Date Time Temp Pulse Resp B/P (MAP) Pulse Ox O2 Delivery O2 Flow Rate FiO2 05/20/24 20:19 67 20 108/45 (66) 98 30 05/20/24 20:15 99.5 211.1 05/20/24 20:00 Mechanical Ventilator+ Total Intake and Output 05/19/24 05/19/24 05/20/24 15:00 23:00 07:00 Intake Total 947.586 ml 1113.651 ml 871.899 ml Output Total 3915 ml 2204 ml Balance 947.586 ml -2801.349 ml -1332.101 ml medications Current Medications Medications Dose Ordered Sig/Nora Route Start Time Stop Time Status Last Admin Dose Admin Ondansetron HCl 4 mg Q4HP PRN IV 05/07/24 16:30 05/16/24 05:55 4 MG Morphine Sulfate 2 mg Q4HPRN PRN IV 05/15/24 17:45 05/16/24 05:56 2 MG Fentanyl Citrate 250 ml @ 2.5 mls/hr Q24H IV 05/16/24 14:00 05/20/24 14:17 25 MLS/HR Dexmedetomidine HCl 400 mcg/ Dextrose 100 ml @ 2.36 mls/hr Q24H IV 05/16/24 14:00 Midazolam HCl 50 ml @ 1 mls/hr Q24H IV 05/16/24 21:00 05/20/24 18:26 15 MLS/HR Phenylephrine HCl 250 ml @ 30 mls/hr Q8H20M IV 05/16/24 21:15 05/17/24 06:03 30 MLS/HR Acetaminophen 650 mg Q6HPRN PRN [place] 05/16/24 22:30 05/16/24 22:30 650 MG Pantoprazole Sodium 40 mg DAILY IV 05/17/24 10:00 05/20/24 08:20 40 MG Amino Acids 0 ml @ 0 mls/hr PER PHARMACY IV 05/17/24 08:30 Diagnostic Test (Pha) 1 strip Q6HR 05/17/24 18:00 05/20/24 16:43 1 STRIP Insulin Human Regular FOLLOW SLIDING SCALE Q6HR SC 05/17/24 18:00 05/20/24 16:43 4 UNITS Dextrose 50 ml UD IV 05/17/24 12:30 Meropenem 50 ml @ 17 mls/hr Q8HR IV 05/18/24 14:00 05/20/24 12:15 17 MLS/HR Vancomycin HCl 0 ml @ 0 mls/hr UD IV 05/18/24 07:45 Vancomycin HCl 200 ml @ 200 mls/hr Q18H IV 05/18/24 09:00 05/20/24 14:12 200 MLS/HR Metoprolol Tartrate 1.25 mg Q6HPRN PRN IV 05/18/24 16:00 05/18/24 16:17 1.25 MG Norepinephrine Bitartrate 32 mg/ Sodium Chloride 250 ml @ 0.938 mls/ hr Q24H IV 05/18/24 16:00 05/19/24 13:03 5.625 MLS/HR Amiodarone HCl 250 ml @ 16.667 mls/ hr Q15H IV 05/18/24 22:30 05/20/24 05:31 16.667 MLS/HR Furosemide 40 mg DAILY IV 05/19/24 10:00 05/20/24 10:13 40 MG Potassium Chloride 100 ml @ 50 mls/hr Q2H IV 05/20/24 18:00 05/20/24 21:59 05/20/24 17:50 50 MLS/HR Fat Emulsion Intravenous 100 ml/Sodium Phosphate 40 meq/ Potassium Chloride 20 meq/ Potassium Acetate 50 meq/Calcium Gluconate 4.65 meq/Magnesium Sulfate 16 meq/ Multivitamins 10 ml/Insulin Human Regular 8 units/ Amino Acids/ Dextrose 1,169.08 ml @ 48 mls/hr [id number] IV 05/20/24 20:00 05/21/24 19:59 objective General: the patient is well developed and nourished. No acute distress. ABDOMEN: Status post surgery MENTAL STATUS: Subjective. MENTAL STATUS: Subjective CRANIAL NERVES: Pupils are equal, round and nonreactive, very small. There are corneal reflexes and doll's eyes phenomenon. No signs of facial weakness. There are weak gagging or coughing reflexes SENSATION: No responses to pain stimuli. MOTOR: Normal tone in the upper and lower extremity. Normal muscle bulk. No fasciculations. No spontaneous movement. REFLEXES: Deep tendon reflexes are symmetrical. No pathological reflexes. CEREBELLAR/COORDINATION: Deferred GAIT/STATION: deferred. laboratory and microbiology Laboratory Tests 05/20/24 03:23 Test 05/20/24 03:23 Range/Units Serum Glucose 187 H 74-106 mg/dL Problem List Pelvic prolapse, can count urethrovesical junction, surgery repair on 05/07/2024 (Robotic supracervical hysterectomy bilateral salpingo-oophorectomy colposcopic pexy cystocele repair urethral sling partial vaginectomy) Bowel obstruction with perforation, intra-abdominal abscess, dense at [place], status post surgery 05/16/2024 Sepsis/septic shock Metabolic encephalopathy Acute right MCA territory multiple strokes Left hemiparesis Right ICA occlusion Left ICA severe stenosis Anemia Status post oophorectomy, hysterectomy Assessment/Plan Monitoring Supportive treatment ICU care Stabilize vitals/pressor drip Respiratory support/vent management IV antibiotics Oxygen Hold off Aspirin 81 mg q.d. Hold off Plavix 75 mg daily for 21 days Lipitor 20 mg daily (NPO) TPN Up to chair Physical therapy Further address bilateral carotid stenosis CLARA on discharge Surgery on case More recommendation per clinical course This medical document was created using an electronic medical record system with [email or web address] dictation system. Although this document has been carefully reviewed, there may still be some phonetic and typographical errors. These areas are purely typographical due to imperfections of the software programs, and do not reflect any compromise in the patient's medical care Prognosis Guarded Dietary Evaluation Review Comments: 1) Continue NPO 2) Continue current plan of care NPO Plan discussed with: Other BRYAN FLORES MD May 20, 2024 20:48
[2024-05-20] MEDS: TPN PER PHARMACY IV NR (21:06)
--- NOTE | 2024-05-20 22:25 | DVHPN2 ---
Progress Note Date Seen: May 20, 2024 Has the PT tested + for MRSA If YES, has PT been informed?: No Medical Necessity Reason Pt with a Central, PICC or Fol: No Objective vital signs Vital Sign Date Time Temp Pulse Resp B/P (MAP) Pulse Ox O2 Delivery O2 Flow Rate FiO2 05/20/24 22:00 30 05/20/24 22:00 99.7 71 20 116/38 (64) 98 211.5 110/44 (66) 05/20/24 22:00 Mechanical Ventilator+ Total Intake and Output 05/19/24 05/19/24 05/20/24 15:00 23:00 07:00 Intake Total 947.586 ml 1113.651 ml 871.899 ml Output Total 3915 ml 2204 ml Balance 947.586 ml -2801.349 ml -1332.101 ml medications Current Medications Medications Dose Ordered Sig/Nora Route Start Time Stop Time Status Last Admin Dose Admin Ondansetron HCl 4 mg Q4HP PRN IV 05/07/24 16:30 05/16/24 05:55 4 MG Morphine Sulfate 2 mg Q4HPRN PRN IV 05/15/24 17:45 05/16/24 05:56 2 MG Fentanyl Citrate 250 ml @ 2.5 mls/hr Q24H IV 05/16/24 14:00 05/20/24 14:17 25 MLS/HR Dexmedetomidine HCl 400 mcg/ Dextrose 100 ml @ 2.36 mls/hr Q24H IV 05/16/24 14:00 Midazolam HCl 50 ml @ 1 mls/hr Q24H IV 05/16/24 21:00 05/20/24 18:26 15 MLS/HR Phenylephrine HCl 250 ml @ 30 mls/hr Q8H20M IV 05/16/24 21:15 05/17/24 06:03 30 MLS/HR Acetaminophen 650 mg Q6HPRN PRN [place] 05/16/24 22:30 05/16/24 22:30 650 MG Pantoprazole Sodium 40 mg DAILY IV 05/17/24 10:00 05/20/24 08:20 40 MG Amino Acids 0 ml @ 0 mls/hr PER PHARMACY IV 05/17/24 08:30 Diagnostic Test (Pha) 1 strip Q6HR 05/17/24 18:00 05/20/24 16:43 1 STRIP Insulin Human Regular FOLLOW SLIDING SCALE Q6HR SC 05/17/24 18:00 05/20/24 16:43 4 UNITS Dextrose 50 ml UD IV 05/17/24 12:30 Meropenem 50 ml @ 17 mls/hr Q8HR IV 05/18/24 14:00 05/20/24 21:04 17 MLS/HR Vancomycin HCl 0 ml @ 0 mls/hr UD IV 05/18/24 07:45 Vancomycin HCl 200 ml @ 200 mls/hr Q18H IV 05/18/24 09:00 05/20/24 14:12 200 MLS/HR Metoprolol Tartrate 1.25 mg Q6HPRN PRN IV 05/18/24 16:00 05/18/24 16:17 1.25 MG Norepinephrine Bitartrate 32 mg/ Sodium Chloride 250 ml @ 0.938 mls/ hr Q24H IV 05/18/24 16:00 05/19/24 13:03 5.625 MLS/HR Amiodarone HCl 250 ml @ 16.667 mls/ hr Q15H IV 05/18/24 22:30 05/20/24 20:59 16.667 MLS/HR Furosemide 40 mg DAILY IV 05/19/24 10:00 05/20/24 10:13 40 MG Fat Emulsion Intravenous 100 ml/Sodium Phosphate 40 meq/ Potassium Chloride 20 meq/ Potassium Acetate 50 meq/Calcium Gluconate 4.65 meq/Magnesium Sulfate 16 meq/ Multivitamins 10 ml/Insulin Human Regular 8 units/ Amino Acids/ Dextrose 1,169.08 ml @ 48 mls/hr [id number] IV 05/20/24 20:00 05/21/24 19:59 05/20/24 21:06 48 MLS/HR laboratory and microbiology Laboratory Tests 05/20/24 03:23 Test 05/20/24 03:23 Range/Units Serum Glucose 187 H 74-106 mg/dL Microbiology Date/Time Source Procedure Growth Status 05/17/24 01:52 Urine - [place] Urine Culture - Final Yeast, not Shawanda albicans Complete 05/16/24 22:55 Blood Blood Culture - Preliminary NO GROWTH AFTER 72 HOURS OF INCUBATION. Resulted 05/16/24 22:28 Trachea Gram Stain - Final Complete 05/16/24 22:28 Trachea Respiratory Culture - Final Complete 05/16/24 14:20 Sputum Gram Stain - Final Resulted 05/16/24 14:20 Respiratory Culture - Preliminary Yeast, not Shawanda albicans Resulted Problem List/Assessment/Plan Problem List/Assessment/Plan INTUBATED HEMODYNAMICALLY LABILE ON VASOPRESSOR TRENDING DOWN WBC WNL ABD SOFT NO BM DRAIN IN PLACE SEROSANGUINEOUS 30, 40 CC DRESSING DRY URINE OUTPUT BETTER ON DIURETIC CONDITION GUARDED TRIED REACHING FAMILY TO UPDATE NURSE AT BEDSIDE CONTINUE SUPPORTIVE CARE Plan discussed with: Other Dietary Evaluation Review Comments: 1) Continue NPO 2) Continue current plan of care NPO SHEY COVARRUBIAS MD May 20, 2024 22:25
[2024-05-21] VITALS (112 sets, daily range): BP systolic 90–182; BP diastolic 16–96; PULSE 58–86; RESP 18–29; TEMP 98.1–100.2; O2SAT 91–100
[2024-05-21 03:53] LABS: Hemoglobin 10.5 g/dL (12.2-16.2); Mean Corpuscular Hemoglobin 30.3 pg (28.0-32.0); Mean Corpuscular Hgb Conc. 35.1 g/dL (32.0-36.0); Mean Corpuscular Volume 86.5 fL (80.0-100.0); Platelet Count (auto) 106 10^3/uL (140-450); Red Blood Cells 3.47 10^6/uL (4.0-5.20); Red Cell Distribution Width 14.9 % (11.8-14.3); White Blood Cell 6.6 10^3/uL (4.4-10.8)
[2024-05-21 04:16] LABS: Alanine Aminotransferase 11 U/L (7-40); Albumin 2.9 g/dL (3.2-4.8); Alkaline Phosphatase 132 U/L (46-116); Anion Gap 8 (5-15); Aspartate Aminotransferase 32 U/L (13-40); BUN/Creatinine Ratio 28.8 (10.0-20.0); Blood Urea Nitrogen 19 mg/dL (9-23); Calcium 8.3 mg/dL (8.7-10.4); Carbon Dioxide 31 mmol/L (20-31); Chloride 95 mmol/L (98-107); Glucose 195 mg/dL (74-106); Potassium 3.6 mmol/L (3.5-5.1); Sodium 134 mmol/L (136-145)
[2024-05-21 04:17] LABS: Bilirubin, Total 4.1 mg/dL (0.2-1.0); Phosphorus 2.7 mg/dL (2.4-5.1); Total Protein 5.5 g/dL (5.7-8.2)
--- NOTE | 2024-05-21 04:41 | DVH ---
CHEST RADIOGRAPH Indication:device placement Technique: Single frontal view of the chest was obtained Comparison: XY CHEST PORTABLE on DOS: 05/20/24 FINDINGS: Lines and Tubes: Endotracheal tube terminates 3.9 cm above the joaquin. Enteric tube courses below th e left hemidiaphragm and extends outside the field of view. Right infusion catheter and right IJ acce ss central venous catheter are unchanged in position. Lungs: Bilateral pulmonary congestion. Pleura: No effusion. No pneumothorax. Cardiomediastinal contours: Stable. Bones: No acute osseous abnormality. IMPRESSION: 1. No significant interval change.
[2024-05-21 04:50] LABS: Basophils % (manual) 0 (0.0-2.0); Blast Cells 0; Eosinophils % (manual) 0 (0-7); Promyelocytes % 0
[2024-05-21 06:38] LABS: Band Neutrophils % (manual) 8; Lymphocytes % (manual) 4 (10.0-50.0); Metamyelocytes % 2; Monocytes % (manual) 11 (0-12); Myelocytes % 2; Platelet Estimate Decreased; Reactive Lymphocytes 1
[2024-05-21 07:01] LABS: Base Excess 3.6 mmol/L (-2.0-3.0)
--- NOTE | 2024-05-21 08:33 | DVHPN2 ---
Subjective Patient chemically sedated Reviewed: Care Plan, H&P, Labs, Medications, Previous Orders, Radiology Changes from previous H/P or p: No Changes General: Per HPI Eyes: No Pain, No Vision change, No Conjunctivae inflammation, No Eyelid inflammation, No Other, No Redness ENT: No Ear pain, No Ear discharge, No Nose pain, No Nose discharge, No Nose congestion, No Mouth pain, No Mouth swelling, No Throat pain, No Throat swelling, No Other Cardiovascular: No Chest Pain, No Palpitations, No Orthopnea, No Paroxysmal Noc. Dyspnea, No Edema, No Lt Headedness, No Other Respiratory: No Cough, No Dry, No Shortness of breath, No SOB with excertion, No Wheezing, No Hemoptysis, No Pleuritic Pain, No Sputum, No Other Gastrointestinal: Nausea Genitourinary: No Dysuria, No Frequency, No Incontinence, No Hematuria, No Retention, No Other Musculoskeletal: No other, No neck pain, No shoulder pain, No arm pain, No back pain, No hand pain, No leg pain, No foot pain Skin: No Rash, No Lesions, No Jaundice, No Bruising, No Other Objective Vitals Vital Signs Date Time Temp Pulse Resp B/P (MAP) Pulse Ox O2 Delivery O2 Flow Rate FiO2 05/21/24 07:18 63 20 142/50 (80) 99 30 05/21/24 06:45 98.8 209.8 05/21/24 06:00 Mechanical Ventilator+ Intake/Output Intake and Output 05/21/24 07:00 Intake Total 3028.040 ml Output Total 5420 ml Balance -2391.960 ml IV Total 3028.040 ml Output Urine Total 5050 ml Gastric Drainage Total 200 ml Drainage Total 155 ml Other 15 ml General Appearance: Other (Intubated and sedated) HEENT: Atraumatic, PERRLA Lungs: Clear to auscultation, Normal air movement Cardiovascular: Regular rate, Normal S1, Normal S2 Abdomen: Normal bowel sounds, Soft, Other (EVARISTO drain with sanguinous fluid.) Musculoskeletal: Other (Unable to assess) Extremities: No edema Neuro: Other (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) Skin: Dry, Intact, Other (Surgical incision dry and intact) Psych/Mental Status: Mental status NL, Mood NL Medications Current Medications Medications Dose Ordered Sig/Nora Route Start Time Stop Time Status Last Admin Dose Admin Ondansetron HCl 4 mg Q4HP PRN IV 05/07/24 16:30 05/16/24 05:55 4 MG Morphine Sulfate 2 mg Q4HPRN PRN IV 05/15/24 17:45 05/16/24 05:56 2 MG Fentanyl Citrate 250 ml @ 2.5 mls/hr Q24H IV 05/16/24 14:00 05/21/24 00:41 25 MLS/HR Dexmedetomidine HCl 400 mcg/ Dextrose 100 ml @ 2.36 mls/hr Q24H IV 05/16/24 14:00 Midazolam HCl 50 ml @ 1 mls/hr Q24H IV 05/16/24 21:00 05/21/24 06:25 15 MLS/HR Phenylephrine HCl 250 ml @ 30 mls/hr Q8H20M IV 05/16/24 21:15 05/17/24 06:03 30 MLS/HR Acetaminophen 650 mg Q6HPRN PRN [place] 05/16/24 22:30 05/16/24 22:30 650 MG Pantoprazole Sodium 40 mg DAILY IV 05/17/24 10:00 05/20/24 08:20 40 MG Amino Acids 0 ml @ 0 mls/hr PER PHARMACY IV 05/17/24 08:30 Diagnostic Test (Pha) 1 strip Q6HR 05/17/24 18:00 05/21/24 05:28 1 STRIP Insulin Human Regular FOLLOW SLIDING SCALE Q6HR SC 05/17/24 18:00 05/21/24 05:28 4 UNITS Dextrose 50 ml UD IV 05/17/24 12:30 Meropenem 50 ml @ 17 mls/hr Q8HR IV 05/18/24 14:00 05/21/24 05:28 17 MLS/HR Vancomycin HCl 0 ml @ 0 mls/hr UD IV 05/18/24 07:45 Vancomycin HCl 200 ml @ 200 mls/hr Q18H IV 05/18/24 09:00 05/20/24 14:12 200 MLS/HR Metoprolol Tartrate 1.25 mg Q6HPRN PRN IV 05/18/24 16:00 05/18/24 16:17 1.25 MG Norepinephrine Bitartrate 32 mg/ Sodium Chloride 250 ml @ 0.938 mls/ hr Q24H IV 05/18/24 16:00 05/19/24 13:03 5.625 MLS/HR Amiodarone HCl 250 ml @ 16.667 mls/ hr Q15H IV 05/18/24 22:30 05/20/24 20:59 16.667 MLS/HR Fat Emulsion Intravenous 100 ml/Sodium Phosphate 40 meq/ Potassium Chloride 20 meq/ Potassium Acetate 50 meq/Calcium Gluconate 4.65 meq/Magnesium Sulfate 16 meq/ Multivitamins 10 ml/Insulin Human Regular 8 units/ Amino Acids/ Dextrose 1,169.08 ml @ 48 mls/hr [id number] IV 05/20/24 20:00 05/21/24 19:59 05/20/24 21:06 48 MLS/HR Furosemide 40 mg BID IV 05/21/24 10:00 Laboratory Results Laboratory Tests 05/21/24 03:10 Chemistry Test 05/21/24 03:10 Albumin 2.9 g/dL (3.2-4.8) L Calcium Level 8.3 mg/dL (8.7-10.4) L Magnesium Level 2.0 mg/dL (1.6-2.6) Phosphorus Level 2.7 mg/dL (2.4-5.1) Total Protein 5.5 g/dL (5.7-8.2) L LFT Test 05/21/24 03:10 Alanine Aminotransferase (ALT) 11 U/L (7-40) Alkaline Phosphatase 132 U/L (46-116) H Aspartate Amino Transferase (AST) 32 U/L (13-40) Total Bilirubin 4.1 mg/dL (0.2-1.0) H Urinalysis Test 05/11/24 16:18 Urine Color Yellow (Yellow) Urine Clarity Clear (Clear) Urine pH 6.0 (5.0-9.0) Urine Specific [place] 1.020 (1.001-1.035) Urine Protein 1+ (Negative) H Urine Ketones 4+ (Negative) H Urine Blood Trace /uL (Negative) H Urine Nitrite Negative (Negative) Urine Bilirubin Negative (Negative) Urine Urobilinogen Normal mg/dL (Negative) Urine Leukocyte Esterase Negative /uL (Negative) Urine RBC 2 /hpf (0 - 4) Urine WBC 2 /hpf (0 - 5) Urine Squamous Epithelial Cells Few /hpf (<5) Urine Bacteria None seen /hpf (None Seen) Urine Mucus Few (None Seen) Urine Glucose Normal mg/dL (Normal) Blood Gas Results Test 05/21/24 06:48 Arterial Blood pH 7.479 (7.350-7.450) FiO2 % 30.0 Microbiology Microbiology Date/Time Source Procedure Growth Status 05/17/24 01:52 Urine - [place] Urine Culture - Final Yeast, not Shawanda albicans Complete 05/16/24 22:55 Blood Blood Culture - Preliminary NO GROWTH AFTER 72 HOURS OF INCUBATION. Resulted 05/16/24 22:28 Trachea Gram Stain - Final Complete 05/16/24 22:28 Trachea Respiratory Culture - Final Complete 05/16/24 14:20 Sputum Gram Stain - Final Resulted 05/16/24 14:20 Respiratory Culture - Preliminary Yeast, not Shawanda albicans Resulted Labs and/or images reviewed: Labs reviewed by me, Image(s) reviewed by me Assessment/Plan Assessment/Plan Impression: Abdominal pain due to recent robotic surgery hysterectomy and salpingo- oophorectomy History of breast cancer with bilateral mastectomies History of bowel surgery and ileostomy which Anemia due to blood loss and dilution Hypotension Chronic pain syndrome, patient takes opiates at home Hypokalemia Hypomagnesemia Anemia Afib with RVR Plan: Events: Hemodynamically stable. HH stable. Afib converted -Start Heparin gtt for AFib/ acute CVA, until patient can take PO -IV diuresis: Increase to 40mg IV BID -TPN with electrolyte replacement per pharmacy -antibiotic therapy to vancomycin and meropenem -NG tube to low intermittent suction -ventilator settings to AC 16, tidal volume 450, peep 5, FiO2 35% -PUD, DVT prophylaxis -repeat labs, chest x-ray, ABG in a.m. Critical care time spent with patient discussing and formulating plan of care: 100 minutes. This does not include time spent performing procedures. This medical document was created using an electronic medical record system with [employer] dictation system. Although this document has been carefully reviewed, there may still be some phonetic and typographical errors. These areas are purely typographical due to imperfections of the software programs, and do not reflect any compromise in the patient's medical care. Plan discussed with: Patient, Other (RN, Sister) My Orders Orders - ODIN MIRANDA [employer]INE[employer] Procedure Category Date Status Time Vancomycin Per [facility] 05/22/24 In Process Pharmacy Protoc 21:00 Vancomycin,Trough LAB 05/22/24 Verified 20:00 Creatinine LAB 05/22/24 Verified 20:00 Amino Acid PHA 05/20/24 In Process Infusion... W/Fat 20:00 Tpn Per Pharmacy [facility] 05/20/24 In Process 20:00 Furosemide Injection PHA 05/21/24 In Process (Lasix Injection) 10:00 Platelet Monitoring [facility] 05/21/24 Verified 08:17 Heparin Per [facility] 05/21/24 Verified Standardized Proce 08:17 Discontinue All Im [facility] 05/21/24 Verified Injections 08:17 PTPTT LAB 05/21/24 Verified 08:17 Complete Blood Count LAB 05/21/24 Verified 08:17 Heparin Drip/D5w [facility] 05/21/24 Verified 100units/Ml 08:30 Date of Service: May 21, 2024 Billing Provider: ODIN MIRANDA NP Common Visit Codes: [id number] CARE 30-74 MIN ODIN MIRANDA NP May 21, 2024 08:33
[2024-05-21] MEDS: FUROSEMIDE 40 MG/4 ML VIAL IV SCH (09:27)
--- NOTE | 2024-05-21 09:47 | DVHPN2 ---
Progress Note - Dictate Date Seen: May 21, 2024 Has the PT tested + for MRSA If YES, has PT been informed?: No Medical Necessity Reason Pt with a Central, PICC or Fol: No Subjective Ms. Barrera is a 68 years old right-handed female with a history of hypertension, anemia, breast cancer, [place] [facility] [place] scheduled [place]rectomy and oophorectomy. Post surgically, she woke up with left-sided weakness, and MRI showed multiple stroke in the right MCA territory. During the hospital stay, she developed fall perforation, and she went through abdominal surgery on 05/16/2024 I have seen and examined the patient in the ICU, I have discussed with her nurse. She was responsive to painful stimuli (RN: She woke up earlier this morning) The drainage looks fine The case was discussed with M[place] Fentanyl 25 mcg/hour, Versed 15 mg/hour, levo 5 mcg/minute, FiO2: 30% CBC, 05/16/2024: Metabolic acidosis, 05/17/2024: Metabolic acidosis, 05/18/2024: Metabolic acidosis URINALYSIS, 05/11/2024: WBC: 2, URINE LEUKOCYTE ESTERASE: NEGATIVE WBC/HB/PLT/MCV, 05/04: 5.1/10.7/119/98.3, 05/17/2024: 20.4/8.5/205/86.9 05/19/2024: 12.2/11.1/125/86.2, 05/20/2024: 8.1/10.5/113/86.1, 05/21/2024: 6.6/10.5/106/86.5 PT/INR/FTT, 05/16/2024: 17.4/1.71/34.2 K, 05/09/2024: 3.9, 05/10/24:3.1, 05/12/2024: 3.4, 05/16/2024: 2.8 Lactic acid, 05/15/2024: 1.6, 05/16/2024: 1.5 LIVER FUNCTION TESTS, 05/12/2024: UNREMARKABLE, 05/16/2024: Unremarkable TBI/AST/ALT/AP, 05/18/2024: 1.2/8/9/47, 05/19/2024: 3.1/04/23/2067 TG/HDL/LDL/HDL, 05/12/2024: 196/134/75/23 TSH, 05/12/2024: 2.01 Echocardiogram 05/14/2024: lvef 65% by visual estimate mild mitral regurg RV enlarged mild left atrium enlarged mild Carotid Doppler, 05/11/2024: 1. Occlusion of the right proximal ICA. 2. Greater than 50% stenosis of the right proximal ECA. 3. Greater than 50% stenosis of the left proximal ICA CT head, 05/11/2024: 1. Chronic lacunar infarct in right centrum semiovale. 2. Chronic periventricular ischemic changes. 3. Cerebral and cerebellar atrophy, likely age-related. 4. Advised further evaluation with MRI brain without contrast if clinically indicated CT abdomen/pelvis, 05/15/2024: Small bowel obstruction with evidence of perforation including free intraperitoneal fluid and air. Extensive subcutaneous emphysema likely secondary to bowel perforation CT abdomen/pelvis, 05/16/2024: 1. Sequelae of recent postsurgical changes as described above. Correlate with surgical history. 2. Pneumoperitoneum and free fluid in the abdomen and pelvis. 3. Large collection containing fluid and gas, predominantly in the right hemiabdomen. There is GI contrast extending into this collection from an adjacent small bowel loop. There is a component of this collection extending adjacent to the anterior superior aspect of the liver. 4. Moderate right hydronephrosis and hydroureter. The distal right ureter appears to be compressed by the large fluid collection in the right hemiabdomen. No obstructing calculus. 5. Dilated small bowel loops in the left hemiabdomen with suspected small-bowel obstruction. 6. Prominent subcutaneous edema in the ventral abdominal wall and extending caudally into the inguinal regions bilaterally, peroneal region, and anterior aspect of the left thigh. 7. Small bilateral pleural effusions with overlying atelectasis. 8. Additional findings as detailed above. CTA neck, head, 05/14/24: 1. Complete occlusion of the right cervical internal carotid artery. There may be trickle flow in distal right cervical ICA. 2. Poor flow in the right intracranial ICA likely retrograde perfusion through the contralateral left side posterior circulation through the communicating arteries. 3. High-grade stenosis at the left carotid bulb with at least 70-80% stenosis. Moderate short-segment stenosis in the left proximal ICA with at least 60% stenosis. MRI HEAD, 05/11/2024: 1. Multiple foci of restricted diffusion in the right centrum semiovale and along the right superior frontal lobe compatible with acute to subacute infarcts. There is no evidence of acute hemorrhage or significant surrounding edema. 2. Absence of flow void in the intracranial portions of the right internal carotid artery which is likely occluded. vital signs Vital Sign Date Time Temp Pulse Resp B/P (MAP) Pulse Ox O2 Delivery O2 Flow Rate FiO2 05/21/24 09:32 140/55 05/21/24 08:00 20 100 Mechanical Ventilator+ 30 30 05/21/24 07:18 63 05/21/24 06:45 98.8 209.8 Total Intake and Output 05/20/24 05/20/24 05/21/24 14:59 22:59 06:59 Intake Total 1187.840 ml 1098.840 ml 860.840 ml Output Total 3725 ml 1695 ml Balance 1187.840 ml -2626.160 ml -834.160 ml medications Current Medications Medications Dose Ordered Sig/Nora Route Start Time Stop Time Status Last Admin Dose Admin Ondansetron HCl 4 mg Q4HP PRN IV 05/07/24 16:30 05/16/24 05:55 4 MG Morphine Sulfate 2 mg Q4HPRN PRN IV 05/15/24 17:45 05/16/24 05:56 2 MG Fentanyl Citrate 250 ml @ 2.5 mls/hr Q24H IV 05/16/24 14:00 05/21/24 00:41 25 MLS/HR Midazolam HCl 50 ml @ 1 mls/hr Q24H IV 05/16/24 21:00 05/21/24 09:32 15 MLS/HR Phenylephrine HCl 250 ml @ 30 mls/hr Q8H20M IV 05/16/24 21:15 05/17/24 06:03 30 MLS/HR Acetaminophen 650 mg Q6HPRN PRN MA 05/16/24 22:30 05/16/24 22:30 650 MG Pantoprazole Sodium 40 mg DAILY IV 05/17/24 10:00 05/21/24 09:24 40 MG Amino Acids 0 ml @ 0 mls/hr PER PHARMACY IV 05/17/24 08:30 Diagnostic Test (Pha) 1 strip Q6HR 05/17/24 18:00 05/21/24 05:28 1 STRIP Insulin Human Regular FOLLOW SLIDING SCALE Q6HR SC 05/17/24 18:00 05/21/24 05:28 4 UNITS Dextrose 50 ml UD IV 05/17/24 12:30 Meropenem 50 ml @ 17 mls/hr Q8HR IV 05/18/24 14:00 05/21/24 05:28 17 MLS/HR Vancomycin HCl 0 ml @ 0 mls/hr UD IV 05/18/24 07:45 Vancomycin HCl 200 ml @ 200 mls/hr Q18H IV 05/18/24 09:00 05/21/24 09:20 200 MLS/HR Metoprolol Tartrate 1.25 mg Q6HPRN PRN IV 05/18/24 16:00 05/18/24 16:17 1.25 MG Norepinephrine Bitartrate 32 mg/ Sodium Chloride 250 ml @ 0.938 mls/ hr Q24H IV 05/18/24 16:00 05/19/24 13:03 5.625 MLS/HR Amiodarone HCl 250 ml @ 16.667 mls/ hr Q15H IV 05/18/24 22:30 05/20/24 20:59 16.667 MLS/HR Fat Emulsion Intravenous 100 ml/Sodium Phosphate 40 meq/ Potassium Chloride 20 meq/ Potassium Acetate 50 meq/Calcium Gluconate 4.65 meq/Magnesium Sulfate 16 meq/ Multivitamins 10 ml/Insulin Human Regular 8 units/ Amino Acids/ Dextrose 1,169.08 ml @ 48 mls/hr [id number] IV 05/20/24 20:00 05/21/24 19:59 05/20/24 21:06 48 MLS/HR Furosemide 40 mg BID IV 05/21/24 10:00 05/21/24 09:27 40 MG Heparin Sodium/ Dextrose 250 ml @ 7.68 mls/hr Q24H IV 05/21/24 08:30 UNV objective General: the patient is well developed and nourished. No acute distress. ABDOMEN: Status post surgery MENTAL STATUS: Subjective. MENTAL STATUS: Subjective CRANIAL NERVES: Pupils are equal, round and nonreactive, very small. There are corneal reflexes and doll's eyes phenomenon. No signs of facial weakness. There are weak gagging or coughing reflexes SENSATION: No responses to pain stimuli. MOTOR: Normal tone in the upper and lower extremity. Normal muscle bulk. No fasciculations. No spontaneous movement. REFLEXES: Deep tendon reflexes are symmetrical. No pathological reflexes. CEREBELLAR/COORDINATION: Deferred GAIT/STATION: deferred. laboratory and microbiology Laboratory Tests 05/21/24 03:10 Test 05/21/24 03:10 Range/Units Serum Glucose 195 H 74-106 mg/dL Problem List Pelvic prolapse, can count urethrovesical junction, surgery repair on 05/07/2024 (Robotic supracervical hysterectomy bilateral salpingo-oophorectomy colposcopic pexy cystocele repair urethral sling partial vaginectomy) Bowel obstruction with perforation, intra-abdominal abscess, dense at [place], status post surgery 05/16/2024 Sepsis/septic shock Metabolic encephalopathy Acute right MCA territory multiple strokes Left hemiparesis Right ICA occlusion Left ICA severe stenosis Anemia Status post oophorectomy, hysterectomy Assessment/Plan Monitoring Supportive treatment ICU care Stabilize vitals/pressor drip Respiratory support/vent management IV antibiotics Oxygen Heparin drip for now Hold off Aspirin 81 mg q.d. Hold off Plavix 75 mg daily for 21 days Lipitor 20 mg daily (NPO) TPN Up to chair Physical therapy Further address bilateral carotid stenosis CLARA on discharge Surgery on case More recommendation per clinical course This medical document was created using an electronic medical record system with [employer] dictation system. Although this document has been carefully reviewed, there may still be some phonetic and typographical errors. These areas are purely typographical due to imperfections of the software programs, and do not reflect any compromise in the patient's medical care Prognosis guarded Dietary Evaluation Review Comments: 1) Continue NPO 2) Continue current plan of care NPO Plan discussed with: Other BRYAN FLORES MD May 21, 2024 09:47
[2024-05-21 10:00] LABS: Hematocrit 29.8 % (36.0-46.0); Hemoglobin 10.1 g/dL (12.2-16.2); Mean Corpuscular Hemoglobin 29.5 pg (28.0-32.0); Mean Corpuscular Hgb Conc. 33.9 g/dL (32.0-36.0); Mean Corpuscular Volume 87.1 fL (80.0-100.0); Platelet Count (auto) 104 10^3/uL (140-450); Red Blood Cells 3.43 10^6/uL (4.0-5.20); Red Cell Distribution Width 15.3 % (11.8-14.3); White Blood Cell 5.9 10^3/uL (4.4-10.8)
[2024-05-21 10:07] LABS: Basophils % (manual) 0 (0.0-2.0); Blast Cells 0; Eosinophils % (manual) 0 (0-7); Promyelocytes % 0; Reactive Lymphocytes 0
[2024-05-21 10:11] LABS: INR 1.07 (0.9-1.15); Partial Thromboplastin Time 31.3 SEC (24.5-34.5); Prothrombin Time 11.3 sec (9.3-11.8)
[2024-05-21] MEDS: HEPARIN DRIP/D5W 100UNITS/ML 250 ML IV SCH (11:25)
[2024-05-21] MEDS: POTASSIUM CHL 20MEQ/100ML 100 ML IV ONE (11:46)
[2024-05-21 11:50] LABS: Band Neutrophils % (manual) 1; Lymphocytes % (manual) 11 (10.0-50.0); Metamyelocytes % 1; Monocytes % (manual) 11 (0-12); Myelocytes % 1; Platelet Estimate Decreased
--- NOTE | 2024-05-21 14:04 | DVHPN2 ---
Progress Note Date Seen: May 21, 2024 Has the PT tested + for MRSA If YES, has PT been informed?: No Medical Necessity Reason Pt with a Central, PICC or Fol: No Objective vital signs Vital Sign Date Time Temp Pulse Resp B/P (MAP) Pulse Ox O2 Delivery O2 Flow Rate FiO2 05/21/24 13:34 66 20 128/48 (74) 98 30 05/21/24 12:00 Mechanical Ventilator+ 05/21/24 11:00 98.4 209.1 Total Intake and Output 05/20/24 05/20/24 05/21/24 15:00 23:00 07:00 Intake Total 1370.840 ml 895.840 ml 849.173 ml Output Total 3725 ml 1695 ml Balance 1370.840 ml -2829.160 ml -845.827 ml medications Current Medications Medications Dose Ordered Sig/Nora Route Start Time Stop Time Status Last Admin Dose Admin Ondansetron HCl 4 mg Q4HP PRN IV 05/07/24 16:30 05/16/24 05:55 4 MG Morphine Sulfate 2 mg Q4HPRN PRN IV 05/15/24 17:45 05/16/24 05:56 2 MG Fentanyl Citrate 250 ml @ 2.5 mls/hr Q24H IV 05/16/24 14:00 05/21/24 00:41 25 MLS/HR Midazolam HCl 50 ml @ 1 mls/hr Q24H IV 05/16/24 21:00 05/21/24 09:32 15 MLS/HR Phenylephrine HCl 250 ml @ 30 mls/hr Q8H20M IV 05/16/24 21:15 05/17/24 06:03 30 MLS/HR Acetaminophen 650 mg Q6HPRN PRN OR 05/16/24 22:30 05/16/24 22:30 650 MG Pantoprazole Sodium 40 mg DAILY IV 05/17/24 10:00 05/21/24 09:24 40 MG Amino Acids 0 ml @ 0 mls/hr PER PHARMACY IV 05/17/24 08:30 Diagnostic Test (Pha) 1 strip Q6HR 05/17/24 18:00 05/21/24 12:00 1 STRIP Insulin Human Regular FOLLOW SLIDING SCALE Q6HR SC 05/17/24 18:00 05/21/24 12:00 4 UNITS Dextrose 50 ml UD IV 05/17/24 12:30 Meropenem 50 ml @ 17 mls/hr Q8HR IV 05/18/24 14:00 05/21/24 05:28 17 MLS/HR Vancomycin HCl 0 ml @ 0 mls/hr UD IV 05/18/24 07:45 Vancomycin HCl 200 ml @ 200 mls/hr Q18H IV 05/18/24 09:00 05/21/24 09:20 200 MLS/HR Metoprolol Tartrate 1.25 mg Q6HPRN PRN IV 05/18/24 16:00 05/18/24 16:17 1.25 MG Norepinephrine Bitartrate 32 mg/ Sodium Chloride 250 ml @ 0.938 mls/ hr Q24H IV 05/18/24 16:00 05/19/24 13:03 5.625 MLS/HR Amiodarone HCl 250 ml @ 16.667 mls/ hr Q15H IV 05/18/24 22:30 05/20/24 20:59 16.667 MLS/HR Fat Emulsion Intravenous 100 ml/Sodium Phosphate 40 meq/ Potassium Chloride 20 meq/ Potassium Acetate 50 meq/Calcium Gluconate 4.65 meq/Magnesium Sulfate 16 meq/ Multivitamins 10 ml/Insulin Human Regular 8 units/ Amino Acids/ Dextrose 1,169.08 ml @ 48 mls/hr [id number] IV 05/20/24 20:00 05/21/24 19:59 05/20/24 21:06 48 MLS/HR Furosemide 40 mg BID IV 05/21/24 10:00 05/21/24 09:27 40 MG Heparin Sodium/ Dextrose 250 ml @ 8 mls/hr Q24H IV 05/21/24 08:30 05/21/24 11:25 8 MLS/HR Fat Emulsion Intravenous 100 ml/Sodium Chloride 40 meq/ Sodium Phosphate 20 meq/Potassium Chloride 20 meq/ Potassium Phosphate 22 meq/ Calcium Gluconate 2.3 meq/Magnesium Sulfate 20 meq/ Multivitamins 10 ml/Insulin Human Regular 10 units/ Amino Acids/ Dextrose 1,150.0462 ml @ 48 mls/hr [id number] IV 05/21/24 20:00 05/22/24 19:59 laboratory and microbiology Laboratory Tests 05/21/24 09:10 05/21/24 03:10 Test 05/21/24 03:10 Range/Units Serum Glucose 195 H 74-106 mg/dL Microbiology Date/Time Source Procedure Growth Status 05/17/24 01:52 Urine - [place] Urine Culture - Final Yeast, not Shawanda albicans Complete 05/16/24 22:55 Blood Blood Culture - Preliminary NO GROWTH AFTER 72 HOURS OF INCUBATION. Resulted 05/16/24 22:28 Trachea Gram Stain - Final Complete 05/16/24 22:28 Trachea Respiratory Culture - Final 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 LABILE ON VASOPRESSOR TRENDING DOWN WBC WNL ABD SOFT NO BM DRAIN IN PLACE SEROSANGUINEOUS RIGHT 130CC PURULENT, 40 CC SEROSANGUINEOUS LEFT DRESSING DRY URINE OUTPUT BETTER ON DIURETIC CONDITION GUARDED TRIED REACHING FAMILY TO UPDATE NURSE AT BEDSIDE CONTINUE SUPPORTIVE CARE Plan discussed with: Other Dietary Evaluation Review Comments: 1) Continue NPO 2) Continue current plan of care NPO SHEY COVARRUBIAS MD May 21, 2024 14:04
--- NOTE | 2024-05-21 14:26 | ECG ---
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
--- NOTE | 2024-05-21 14:26 | ECG ---
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
[2024-05-21 18:25] LABS: INR 1.06 (0.9-1.15); Partial Thromboplastin Time 36.2 SEC (24.5-34.5); Prothrombin Time 11.2 sec (9.3-11.8)
[2024-05-21] MEDS: TPN PER PHARMACY IV NR (20:43)
[2024-05-22] VITALS (107 sets, daily range): BP systolic 94–176; BP diastolic 28–124; PULSE 66–89; RESP 14–44; TEMP 97.5–100.2; O2SAT 96–100
[2024-05-22 02:26] LABS: INR 1.04 (0.9-1.15); Partial Thromboplastin Time 37.9 SEC (24.5-34.5)
[2024-05-22] MEDS: HEPARIN DRIP/D5W 100UNITS/ML 250 ML IV SCH ×2 (03:15→12:15)
[2024-05-22 04:45] LABS: Basophils # (auto) 0 10 ^3/uL (0-0.2); Basophils % (auto) 0.1 % (0.0-2.0); Eosinophils # (auto) 0 10 ^3/uL (0-0.8); Eosinophils % (auto) 0.4 % (0.0-7.0); Hemoglobin 10.9 g/dL (12.2-16.2); Lymphocytes # (auto) 0.5 10 ^3/uL (0.4-5.4); Lymphocytes % (auto) 6.5 % (10.0-50.0); Mean Corpuscular Hemoglobin 30.5 pg (28.0-32.0); Mean Corpuscular Hgb Conc. 35.1 g/dL (32.0-36.0); Mean Corpuscular Volume 86.9 fL (80.0-100.0); Monocytes # (auto) 0.6 10 ^3/uL (0-1.3); Monocytes % (auto) 7.7 % (0.0-12.0); Neutrophils # (auto) 6.4 10 ^3/uL (1.6-8.6); Neutrophils % (auto) 85.3 % (37.0-80.0); Platelet Count (auto) 124 10^3/uL (140-450); Red Blood Cells 3.57 10^6/uL (4.0-5.20); Red Cell Distribution Width 15.2 % (11.8-14.3); White Blood Cell 7.5 10^3/uL (4.4-10.8)
--- NOTE | 2024-05-22 04:56 | DVH ---
CHEST RADIOGRAPH Indication:device placement Technique: Single frontal view of the chest was obtained Comparison: XY CHEST PORTABLE on DOS: 05/21/24, XY CHEST PORTABLE on DOS: 05/20/24, XY CHEST PORTABLE o n DOS: 05/19/24, XY CHEST XRAY 1 VIEW on DOS: 05/18/24, XY CHEST PORTABLE on DOS: 05/17/24, XY CHEST POR TABLE on DOS: 05/21/24 FINDINGS: Lines and Tubes: Endotracheal tube terminates 3.9 cm above the joaquin. Enteric tube courses below th e left hemidiaphragm and extends outside the field of view. Right infusion catheter and right IJ acce ss central venous catheter are unchanged in position. Lungs: Bilateral pulmonary congestion. Pleura: No effusion. No pneumothorax. Cardiomediastinal contours: Stable. Bones: No acute osseous abnormality. IMPRESSION: 1. No significant interval change.
[2024-05-22 05:04] LABS: Alanine Aminotransferase 25 U/L (7-40); Albumin 3.1 g/dL (3.2-4.8); Alkaline Phosphatase 145 U/L (46-116); Anion Gap 9 (5-15); Aspartate Aminotransferase 56 U/L (13-40); BUN/Creatinine Ratio 37.7 (10.0-20.0); Bilirubin, Total 3.6 mg/dL (0.2-1.0); Blood Urea Nitrogen 26 mg/dL (9-23); Calcium 8.4 mg/dL (8.7-10.4); Carbon Dioxide 34 mmol/L (20-31); Chloride 91 mmol/L (98-107); Glucose 206 mg/dL (74-106); Phosphorus 4.8 mg/dL (2.4-5.1); Potassium 3.1 mmol/L (3.5-5.1); Sodium 134 mmol/L (136-145); Total Protein 6.1 g/dL (5.7-8.2)
--- NOTE | 2024-05-22 05:17 | DVHPN2 ---
Chief Complaints Patient reports: No new complaints, Other (continued intubation) Nursing reports: No new complaints Objective Vitals Vital Signs Date Time Temp Pulse Resp B/P (MAP) Pulse Ox O2 Delivery O2 Flow Rate FiO2 05/22/24 04:31 71 20 157/60 (92) 100 30 05/22/24 04:30 99.9 211.8 05/22/24 04:00 Mechanical Ventilator+ Medications Current Medications Medications (Trade) Dose Ordered Sig/Nora Route PRN Reason Start Time Stop Time Status Last Admin Fat Emulsion Intravenous 100 ml/Sodium Chloride 40 meq/ Sodium Phosphate 20 meq/Potassium Chloride 20 meq/ Potassium Phosphate 22 meq/ Calcium Gluconate 2.3 meq/Magnesium Sulfate 20 meq/ Multivitamins 10 ml/Insulin Human Regular 10 units/ Amino Acids/ Dextrose 1,150.0462 ml @ 48 mls/hr [id number] IV 05/21/24 20:00 05/22/24 19:59 05/21/24 20:43 Furosemide (Lasix Injection) 40 mg BID IV 05/21/24 10:00 05/21/24 21:18 Heparin Sodium/ Dextrose 250 ml @ 12 mls/hr [id number] IV 05/22/24 03:15 General: Normal Head/Eyes: Normal ENT: Normal Neck: Normal Lungs: Normal Cardiovascular: Normal Abdominal: Normal (Wounds clean dry and intact) Musculoskeletal: Normal Extremities: Normal Skin: Normal Neurological: Normal Studies Laboratory Tests 05/22/24 03:20 Test 05/22/24 03:20 Range/Units Serum Glucose Pending Ass/Plan Assessment Overall improved reportedly Driver Wheelchair team will try to wean of Vent today. Condition Guarded Improved Plan Continue current care with Driver Wheelchair team Will discuss with patient's sister to keep family informed ANDRES PAZ DO May 22, 2024 05:17
[2024-05-22] MEDS: POTASSIUM CHL 20MEQ/100ML 100 ML IV ONE ×2 (06:28→08:31)
--- NOTE | 2024-05-22 08:56 | DVHPN2 ---
Subjective Patient chemically sedated Reviewed: Care Plan, H&P, Labs, Medications, Previous Orders, Radiology Changes from previous H/P or p: No Changes General: Per HPI Eyes: No Pain, No Vision change, No Conjunctivae inflammation, No Eyelid inflammation, No Other, No Redness ENT: No Ear pain, No Ear discharge, No Nose pain, No Nose discharge, No Nose congestion, No Mouth pain, No Mouth swelling, No Throat pain, No Throat swelling, No Other Cardiovascular: No Chest Pain, No Palpitations, No Orthopnea, No Paroxysmal Noc. Dyspnea, No Edema, No Lt Headedness, No Other Respiratory: No Cough, No Dry, No Shortness of breath, No SOB with excertion, No Wheezing, No Hemoptysis, No Pleuritic Pain, No Sputum, No Other Gastrointestinal: Nausea Genitourinary: No Dysuria, No Frequency, No Incontinence, No Hematuria, No Retention, No Other Musculoskeletal: No other, No neck pain, No shoulder pain, No arm pain, No back pain, No hand pain, No leg pain, No foot pain Skin: No Rash, No Lesions, No Jaundice, No Bruising, No Other Objective Vitals Vital Signs Date Time Temp Pulse Resp B/P (MAP) Pulse Ox O2 Delivery O2 Flow Rate FiO2 05/22/24 08:27 76 20 131/58 100 30 05/22/24 06:45 99.9 211.8 05/22/24 06:00 Mechanical Ventilator+ Intake/Output Intake and Output 05/22/24 07:00 Intake Total 2433.006 ml Output Total 6426 ml Balance -3992.994 ml IV Total 2433.006 ml Output Urine Total 6200 ml Drainage Total 226 ml General Appearance: Other (Intubated and sedated) HEENT: Atraumatic, PERRLA Lungs: Clear to auscultation, Normal air movement Cardiovascular: Regular rate, Normal S1, Normal S2 Abdomen: Normal bowel sounds, Soft, Other (Patient with pustulant drainage from right upper quadrant, minimal sanguinous from left lower quadrant) Musculoskeletal: Other (Unable to assess) Extremities: No edema Neuro: Other (Left arm weakness including noc technician and proximal muscles) Skin: Dry, Intact, Other (Surgical incision dry and intact) Psych/Mental Status: Mental status NL, Mood NL Medications Current Medications Medications Dose Ordered Sig/Nora Route Start Time Stop Time Status Last Admin Dose Admin Ondansetron HCl 4 mg Q4HP PRN IV 05/07/24 16:30 05/16/24 05:55 4 MG Morphine Sulfate 2 mg Q4HPRN PRN IV 05/15/24 17:45 05/16/24 05:56 2 MG Fentanyl Citrate 250 ml @ 2.5 mls/hr Q24H IV 05/16/24 14:00 05/22/24 07:49 12.5 MLS/HR Midazolam HCl 50 ml @ 1 mls/hr Q24H IV 05/16/24 21:00 05/22/24 06:37 4 MLS/HR Phenylephrine HCl 250 ml @ 30 mls/hr Q8H20M IV 05/16/24 21:15 05/17/24 06:03 30 MLS/HR Acetaminophen 650 mg Q6HPRN PRN [place] 05/16/24 22:30 05/16/24 22:30 650 MG Pantoprazole Sodium 40 mg DAILY IV 05/17/24 10:00 05/21/24 09:24 40 MG Amino Acids 0 ml @ 0 mls/hr PER PHARMACY IV 05/17/24 08:30 Diagnostic Test (Pha) 1 strip Q6HR 05/17/24 18:00 05/22/24 05:23 1 STRIP Insulin Human Regular FOLLOW SLIDING SCALE Q6HR SC 05/17/24 18:00 05/22/24 05:30 8 UNITS Dextrose 50 ml UD IV 05/17/24 12:30 Meropenem 50 ml @ 17 mls/hr Q8HR IV 05/18/24 14:00 05/22/24 05:26 17 MLS/HR Vancomycin HCl 0 ml @ 0 mls/hr UD IV 05/18/24 07:45 Vancomycin HCl 200 ml @ 200 mls/hr Q18H IV 05/18/24 09:00 05/22/24 02:53 200 MLS/HR Metoprolol Tartrate 1.25 mg Q6HPRN PRN IV 05/18/24 16:00 05/18/24 16:17 1.25 MG Norepinephrine Bitartrate 32 mg/ Sodium Chloride 250 ml @ 0.938 mls/ hr Q24H IV 05/18/24 16:00 05/21/24 18:38 4.688 MLS/HR Amiodarone HCl 250 ml @ 16.667 mls/ hr Q15H IV 05/18/24 22:30 05/20/24 20:59 16.667 MLS/HR Furosemide 40 mg BID IV 05/21/24 10:00 05/21/24 21:18 40 MG Fat Emulsion Intravenous 100 ml/Sodium Chloride 40 meq/ Sodium Phosphate 20 meq/Potassium Chloride 20 meq/ Potassium Phosphate 22 meq/ Calcium Gluconate 2.3 meq/Magnesium Sulfate 20 meq/ Multivitamins 10 ml/Insulin Human Regular 10 units/ Amino Acids/ Dextrose 1,150.0462 ml @ 48 mls/hr [id number] IV 05/21/24 20:00 05/22/24 19:59 05/21/24 20:43 48 MLS/HR Heparin Sodium/ Dextrose 250 ml @ 12 mls/hr [id number] IV 05/22/24 03:15 Laboratory Results Laboratory Tests 05/22/24 03:20 Chemistry Test 05/22/24 03:20 Albumin 3.1 g/dL (3.2-4.8) L Calcium Level 8.4 mg/dL (8.7-10.4) L Magnesium Level 2.0 mg/dL (1.6-2.6) Phosphorus Level 4.8 mg/dL (2.4-5.1) Total Protein 6.1 g/dL (5.7-8.2) Coagulation Test 05/21/24 09:10 05/21/24 17:58 05/22/24 02:00 Prothrombin Time 11.3 sec (9.3-11.8) 11.2 sec (9.3-11.8) 11.0 sec (9.3-11.8) Prothrombin Time INR 1.07 (0.9-1.15) 1.06 (0.9-1.15) 1.04 (0.9-1.15) Activated Partial Thromboplast Time 31.3 SEC (24.5-34.5) 36.2 SEC (24.5-34.5) H 37.9 SEC (24.5-34.5) H LFT Test 05/22/24 03:20 Alanine Aminotransferase (ALT) 25 U/L (7-40) Alkaline Phosphatase 145 U/L (46-116) H Aspartate Amino Transferase (AST) 56 U/L (13-40) H Total Bilirubin 3.6 mg/dL (0.2-1.0) H Urinalysis Test 05/11/24 16:18 Urine Color Yellow (Yellow) Urine Clarity Clear (Clear) Urine pH 6.0 (5.0-9.0) Urine Specific Flora 1.020 (1.001-1.035) Urine Protein 1+ (Negative) H Urine Ketones 4+ (Negative) H Urine Blood Trace /uL (Negative) H Urine Nitrite Negative (Negative) Urine Bilirubin Negative (Negative) Urine Urobilinogen Normal mg/dL (Negative) Urine Leukocyte Esterase Negative /uL (Negative) Urine RBC 2 /hpf (0 - 4) Urine WBC 2 /hpf (0 - 5) Urine Squamous Epithelial Cells Few /hpf (<5) Urine Bacteria None seen /hpf (None Seen) Urine Mucus Few (None Seen) Urine Glucose Normal mg/dL (Normal) Blood Gas Results Test 05/22/24 07:01 Arterial Blood pH 7.566 (7.350-7.450) FiO2 % 30.0 Microbiology Microbiology Date/Time Source Procedure Growth Status 05/17/24 01:52 Urine - [place] Urine Culture - Final Yeast, not Shawanda albicans Complete 05/16/24 22:55 Blood Blood Culture - Final NO GROWTH AFTER 5 DAYS OF INCUBATION. Complete 05/16/24 22:28 Trachea Gram Stain - Final Complete 05/16/24 22:28 Trachea Respiratory Culture - Final Complete 05/16/24 14:20 Sputum Gram Stain - Final Complete 05/16/24 14:20 Respiratory Culture - Final Yeast, not Shawanda albicans Complete Labs and/or images reviewed: Labs reviewed by me, Image(s) reviewed by me Assessment/Plan Assessment/Plan Impression: Abdominal pain due to recent robotic surgery hysterectomy and salpingo- oophorectomy History of breast cancer with bilateral mastectomies History of bowel surgery and ileostomy which Anemia due to blood loss and dilution Hypotension Chronic pain syndrome, patient takes opiates at home Hypokalemia Hypomagnesemia Anemia Afib with RVR Plan: Events: Patient with low-grade fever. Noted increase in LFTs. Ultrasound of abdomen ordered. Noted questionable abscess and free fluid in right and left upper quadrant on preliminary review. Hold spontaneous breathing trial for possible IR evaluation for drain placement. Patient was sister bedside. Plan of care discussed. All questions answered. -potassium replacement -continue heparin drip. -IV diuresis: Increase to 40mg IV BID -TPN with electrolyte replacement per pharmacy -antibiotic therapy to vancomycin and meropenem -NG tube to low intermittent suction -ventilator settings AC 16, tidal volume 450, peep 5, FiO2 35% -PUD, DVT prophylaxis -repeat labs, chest x-ray, ABG in a.m. Critical care time spent with patient discussing and formulating plan of care: 40 minutes. This does not include time spent performing procedures. This medical document was created using an electronic medical record system with [employer] system. Although this document has been carefully reviewed, there may still be some phonetic and typographical errors. These areas are purely typographical due to imperfections of the software programs, and do not reflect any compromise in the patient's medical care. Plan discussed with: Patient, Other (RN) My Orders Orders - ODIN MIRANDA NP Procedure Category Date Status Time Heparin Per Pharmacy MARY BETH 05/21/24 In Process Protocol 10:31 Amino Acid PHA 05/21/24 In Process Infusion... W/Fat 20:00 Electrocardigram EKG 05/21/24 Logged 14:06 Electrocardigram EKG 05/21/24 Logged 14:06 Electrocardigram EKG 05/21/24 Resulted 14:21 Electrocardigram EKG 05/21/24 Resulted 14:22 PTPTT LAB 05/22/24 Logged 12:00 PTPTT LAB 05/22/24 Logged 18:00 PTPTT LAB 05/22/24 Logged 08:30 Heparin Drip/D5w PHA 05/22/24 In Process 100units/Ml 03:15 LIVER US 05/22/24 Taken 07:24 Potassium Chl PHA 05/22/24 In Process 20meq/100ml 07:30 Cpap Trial For Am ORDERS 05/22/24 Transmitted 07:24 Communication Order ORDERS 05/22/24 Transmitted 07:24 Date of Service: May 22, 2024 Billing Provider: ODIN MIRANDA NP Common Visit Codes: [id number] CARE 30-74 MIN ODIN MIRANDA NP May 22, 2024 08:56
--- NOTE | 2024-05-22 09:11 | DVH ---
CLINICAL INFORMATION: 68 years old, Female; elevated liver function tests. TECHNIQUE: Grayscale sonographic imaging of the right upper quadrant of the abdomen was performed, a ssisted by color Doppler techniques. COMPARISON: CT of the abdomen and pelvis dated 05/16/2024. FINDINGS: The gallbladder wall measures 9.3 mm in thickness, abnormally thickened and edematous. S ludge is visualized in the gallbladder. Small amount of pericholecystic fluid. Unable to evaluate for sonographic Hardy's sign due to patient sedated. The common bile duct is not visualized. The liver is enlarged, measuring up to 19.1 cm in craniocaudal dimension. Complex fluid collection ad jacent to the left hepatic lobe measures up to 14.4 x 6.4 x 13.0 cm. The pancreatic head appears edematous. The right kidney measures 8.0 cm. There is no hydronephrosis. [id number] thinning of the rig ht renal cortex with normal cortical echogenicity. IMPRESSION: 1. Gallbladder sludge with edematous gallbladder wall and small amount of pericholecystic fluid. Acut e cholecystitis can not be excluded in the appropriate clinical setting. No gallstones visualized, al though somewhat limited evaluation due to patient clinical condition, unable to turn patient in the d ecubitus position. Correlation with clinical findings is needed. 2. Complex fluid collection adjacent to the left hepatic lobe, appears to correlate with structure se en in this location on prior CT, incompletely visualized on ultrasound when correlated with CT. 3. Hepatomegaly. 4. Pancreatic head appears edematous. Correlate with clinical findings. 5. Additional findings as detailed above.
--- NOTE | 2024-05-22 10:13 | DVHPN2 ---
Progress Note - Dictate Date Seen: May 22, 2024 Has the PT tested + for MRSA If YES, has PT been informed?: No Medical Necessity Reason Pt with a Central, PICC or Fol: No Subjective Ms. Barrera is a 68 years old right-handed female with a history of hypertension, anemia, breast cancer, she was admitted to the [facility] on 05/07/2024 for scheduled hysterectomy and oophorectomy. Post surgically, she woke up with left-sided weakness, and MRI showed multiple stroke in the right MCA territory. During the hospital stay, she developed fall perforation, and she went through abdominal surgery on 05/16/2024 I have seen and examined the patient in the ICU, I have discussed with her nurse. She is nonresponsive to painful stimuli The drainage on the right side looks cloudy Fentanyl 125 mcg/hour, Versed 4 mg/hour, levo 4 mcg/minute, FiO2: 30% CBC, 05/16/2024: Metabolic acidosis, 05/17/2024: Metabolic acidosis, 05/18/2024: Metabolic acidosis URINALYSIS, 05/11/2024: WBC: 2, URINE LEUKOCYTE ESTERASE: NEGATIVE WBC/HB/PLT/MCV, 05/04: 5.1/10.7/119/98.3, 05/17/2024: 20.4/8.5/205/86.9 05/19/2024: 12.2/11.1/125/86.2, 05/20/2024: 8.1/10.5/113/86.1, 05/21/2024: 6.6/10.5/106/86.5 PT/INR/FTT, 05/16/2024: 17.4/1.71/34.2 K, 05/09/2024: 3.9, 05/10/24:3.1, 05/12/2024: 3.4, 05/16/2024: 2.8 Lactic acid, 05/15/2024: 1.6, 05/16/2024: 1.5 LIVER FUNCTION TESTS, 05/12/2024: UNREMARKABLE, 05/16/2024: Unremarkable TBI/AST/ALT/AP, 05/18/2024: 1.2/8//47, 05/19/2024: 3.1/04/23/2067 TG/HDL/LDL/HDL, 05/12/2024: 196/134/75/23 TSH, 05/12/2024: 2.01 Echocardiogram 05/14/2024: lvef 65% by visual estimate mild mitral regurg RV enlarged mild left atrium enlarged mild Carotid Doppler, 05/11/2024: 1. Occlusion of the right proximal ICA. 2. Greater than 50% stenosis of the right proximal ECA. 3. Greater than 50% stenosis of the left proximal ICA CT head, 05/11/2024: 1. Chronic lacunar infarct in right centrum semiovale. 2. Chronic periventricular ischemic changes. 3. Cerebral and cerebellar atrophy, likely age-related. 4. Advised further evaluation with MRI brain without contrast if clinically indicated CT abdomen/pelvis, 05/15/2024: Small bowel obstruction with evidence of perforation including free intraperitoneal fluid and air. Extensive subcutaneous emphysema likely secondary to bowel perforation CT abdomen/pelvis, 05/16/2024: 1. Sequelae of recent postsurgical changes as described above. Correlate with surgical history. 2. Pneumoperitoneum and free fluid in the abdomen and pelvis. 3. Large collection containing fluid and gas, predominantly in the right hemiabdomen. There is GI contrast extending into this collection from an adjacent small bowel loop. There is a component of this collection extending adjacent to the anterior superior aspect of the liver. 4. Moderate right hydronephrosis and hydroureter. The distal right ureter appears to be compressed by the large fluid collection in the right hemiabdomen. No obstructing calculus. 5. Dilated small bowel loops in the left hemiabdomen with suspected small-bowel obstruction. 6. Prominent subcutaneous edema in the ventral abdominal wall and extending caudally into the inguinal regions bilaterally, peroneal region, and anterior aspect of the left thigh. 7. Small bilateral pleural effusions with overlying atelectasis. 8. Additional findings as detailed above. CTA neck, head, 05/14/24: 1. Complete occlusion of the right cervical internal carotid artery. There may be trickle flow in distal right cervical ICA. 2. Poor flow in the right intracranial ICA likely retrograde perfusion through the contralateral left side posterior circulation through the communicating arteries. 3. High-grade stenosis at the left carotid bulb with at least 70-80% stenosis. Moderate short-segment stenosis in the left proximal ICA with at least 60% stenosis. MRI HEAD, 05/11/2024: 1. Multiple foci of restricted diffusion in the right centrum semiovale and along the right superior frontal lobe compatible with acute to subacute infarcts. There is no evidence of acute hemorrhage or significant surrounding edema. 2. Absence of flow void in the intracranial portions of the right internal carotid artery which is likely occluded. vital signs Vital Sign Date Time Temp Pulse Resp B/P (MAP) Pulse Ox O2 Delivery O2 Flow Rate FiO2 05/22/24 10:02 78 20 116/49 (71) 100 30 05/22/24 06:45 99.9 211.8 05/22/24 06:00 Mechanical Ventilator+ Total Intake and Output 05/21/24 05/21/24 05/22/24 15:00 23:00 07:00 Intake Total 1025.879 ml 741.689 ml 665.438 ml Output Total 1700 ml 2075 ml 2651 ml Balance -674.121 ml -1333.311 ml -1985.562 ml medications Current Medications Medications Dose Ordered Sig/Nora Route Start Time Stop Time Status Last Admin Dose Admin Ondansetron HCl 4 mg Q4HP PRN IV 05/07/24 16:30 05/16/24 05:55 4 MG Morphine Sulfate 2 mg Q4HPRN PRN IV 05/15/24 17:45 05/16/24 05:56 2 MG Fentanyl Citrate 250 ml @ 2.5 mls/hr Q24H IV 05/16/24 14:00 05/22/24 07:49 12.5 MLS/HR Midazolam HCl 50 ml @ 1 mls/hr Q24H IV 05/16/24 21:00 05/22/24 06:37 4 MLS/HR Phenylephrine HCl 250 ml @ 30 mls/hr Q8H20M IV 05/16/24 21:15 05/17/24 06:03 30 MLS/HR Acetaminophen 650 mg Q6HPRN PRN MN 05/16/24 22:30 05/16/24 22:30 650 MG Pantoprazole Sodium 40 mg DAILY IV 05/17/24 10:00 05/22/24 09:37 40 MG Amino Acids 0 ml @ 0 mls/hr PER PHARMACY IV 05/17/24 08:30 Diagnostic Test (Pha) 1 strip Q6HR 05/17/24 18:00 05/22/24 05:23 1 STRIP Insulin Human Regular FOLLOW SLIDING SCALE Q6HR SC 05/17/24 18:00 05/22/24 05:30 8 UNITS Dextrose 50 ml UD IV 05/17/24 12:30 Meropenem 50 ml @ 17 mls/hr Q8HR IV 05/18/24 14:00 05/22/24 05:26 17 MLS/HR Vancomycin HCl 0 ml @ 0 mls/hr UD IV 05/18/24 07:45 Vancomycin HCl 200 ml @ 200 mls/hr Q18H IV 05/18/24 09:00 05/22/24 02:53 200 MLS/HR Metoprolol Tartrate 1.25 mg Q6HPRN PRN IV 05/18/24 16:00 05/18/24 16:17 1.25 MG Norepinephrine Bitartrate 32 mg/ Sodium Chloride 250 ml @ 0.938 mls/ hr Q24H IV 05/18/24 16:00 05/21/24 18:38 4.688 MLS/HR Amiodarone HCl 250 ml @ 16.667 mls/ hr Q15H IV 05/18/24 22:30 05/20/24 20:59 16.667 MLS/HR Furosemide 40 mg BID IV 05/21/24 10:00 05/22/24 09:37 40 MG Fat Emulsion Intravenous 100 ml/Sodium Chloride 40 meq/ Sodium Phosphate 20 meq/Potassium Chloride 20 meq/ Potassium Phosphate 22 meq/ Calcium Gluconate 2.3 meq/Magnesium Sulfate 20 meq/ Multivitamins 10 ml/Insulin Human Regular 10 units/ Amino Acids/ Dextrose 1,150.0462 ml @ 48 mls/hr [id number] IV 05/21/24 20:00 05/22/24 19:59 05/21/24 20:43 48 MLS/HR Heparin Sodium/ Dextrose 250 ml @ 12 mls/hr [id number] IV 05/22/24 03:15 objective General: the patient is well developed and nourished. No acute distress. ABDOMEN: Status post surgery MENTAL STATUS: Subjective. MENTAL STATUS: Subjective CRANIAL NERVES: Pupils are equal, round and nonreactive, very small. There are corneal reflexes and doll's eyes phenomenon. No signs of facial weakness. There are weak gagging or coughing reflexes SENSATION: No responses to pain stimuli. MOTOR: Normal tone in the upper and lower extremity. Normal muscle bulk. No fasciculations. No spontaneous movement. REFLEXES: Deep tendon reflexes are symmetrical. No pathological reflexes. CEREBELLAR/COORDINATION: Deferred GAIT/STATION: deferred. laboratory and microbiology Laboratory Tests 05/22/24 03:20 Test 05/22/24 03:20 Range/Units Serum Glucose 206 H 74-106 mg/dL Problem List Pelvic prolapse, can count urethrovesical junction, surgery repair on 05/07/2024 (Robotic supracervical hysterectomy bilateral salpingo-oophorectomy colposcopic pexy cystocele repair urethral sling partial vaginectomy) Bowel obstruction with perforation, intra-abdominal abscess, dense at [place], status post surgery 05/16/2024 Sepsis/septic shock Metabolic encephalopathy Acute right MCA territory multiple strokes Left hemiparesis Right ICA occlusion Left ICA severe stenosis Anemia Status post oophorectomy, hysterectomy Assessment/Plan Monitoring Supportive treatment ICU care Stabilize vitals/pressor drip Respiratory support/vent management IV antibiotics Oxygen Heparin drip for now Hold off Aspirin 81 mg q.d. Hold off Plavix 75 mg daily for 21 days Lipitor 20 mg daily (NPO) TPN Up to chair Physical therapy Further address bilateral carotid stenosis CLARA on discharge Surgery on case More recommendation per clinical course This medical document was created using an electronic medical record system with [employer] dictation system. Although this document has been carefully reviewed, there may still be some phonetic and typographical errors. These areas are purely typographical due to imperfections of the software programs, and do not reflect any compromise in the patient's medical care Prognosis guarded Dietary Evaluation Review Comments: 1) Continue NPO 2) Continue current plan of care NPO Plan discussed with: Other BRYAN FLORES MD May 22, 2024 10:13
[2024-05-22 10:56] LABS: INR 1.06 (0.9-1.15); Partial Thromboplastin Time 39.4 SEC (24.5-34.5); Prothrombin Time 11.2 sec (9.3-11.8)
--- NOTE | 2024-05-22 12:22 | DVHPN2 ---
Progress Note Date Seen: May 22, 2024 Has the PT tested + for MRSA If YES, has PT been informed?: No Medical Necessity Reason Pt with a Central, PICC or Fol: No Objective vital signs Vital Sign Date Time Temp Pulse Resp B/P (MAP) Pulse Ox O2 Delivery O2 Flow Rate FiO2 05/22/24 11:45 99.5 80 20 117/62 (80) 100 211.1 05/22/24 11:42 30 05/22/24 10:00 Mechanical Ventilator+ Total Intake and Output 05/21/24 05/21/24 05/22/24 15:00 23:00 07:00 Intake Total 1025.879 ml 741.689 ml 793.813 ml Output Total 1700 ml 2075 ml 2651 ml Balance -674.121 ml -1333.311 ml -1857.187 ml medications Current Medications Medications Dose Ordered Sig/Nora Route Start Time Stop Time Status Last Admin Dose Admin Ondansetron HCl 4 mg Q4HP PRN IV 05/07/24 16:30 05/16/24 05:55 4 MG Morphine Sulfate 2 mg Q4HPRN PRN IV 05/15/24 17:45 05/16/24 05:56 2 MG Fentanyl Citrate 250 ml @ 2.5 mls/hr Q24H IV 05/16/24 14:00 05/22/24 07:49 12.5 MLS/HR Midazolam HCl 50 ml @ 1 mls/hr Q24H IV 05/16/24 21:00 05/22/24 06:37 4 MLS/HR Phenylephrine HCl 250 ml @ 30 mls/hr Q8H20M IV 05/16/24 21:15 05/17/24 06:03 30 MLS/HR Acetaminophen 650 mg Q6HPRN PRN [place] 05/16/24 22:30 05/16/24 22:30 650 MG Pantoprazole Sodium 40 mg DAILY IV 05/17/24 10:00 05/22/24 09:37 40 MG Amino Acids 0 ml @ 0 mls/hr PER PHARMACY IV 05/17/24 08:30 Diagnostic Test (Pha) 1 strip Q6HR 05/17/24 18:00 05/22/24 05:23 1 STRIP Insulin Human Regular FOLLOW SLIDING SCALE Q6HR SC 05/17/24 18:00 05/22/24 05:30 8 UNITS Dextrose 50 ml UD IV 05/17/24 12:30 Meropenem 50 ml @ 17 mls/hr Q8HR IV 05/18/24 14:00 05/22/24 05:26 17 MLS/HR Vancomycin HCl 0 ml @ 0 mls/hr UD IV 05/18/24 07:45 Vancomycin HCl 200 ml @ 200 mls/hr Q18H IV 05/18/24 09:00 05/22/24 02:53 200 MLS/HR Metoprolol Tartrate 1.25 mg Q6HPRN PRN IV 05/18/24 16:00 05/18/24 16:17 1.25 MG Norepinephrine Bitartrate 32 mg/ Sodium Chloride 250 ml @ 0.938 mls/ hr Q24H IV 05/18/24 16:00 05/21/24 18:38 4.688 MLS/HR Amiodarone HCl 250 ml @ 16.667 mls/ hr Q15H IV 05/18/24 22:30 05/20/24 20:59 16.667 MLS/HR Furosemide 40 mg BID IV 05/21/24 10:00 05/22/24 09:37 40 MG Fat Emulsion Intravenous 100 ml/Sodium Chloride 40 meq/ Sodium Phosphate 20 meq/Potassium Chloride 20 meq/ Potassium Phosphate 22 meq/ Calcium Gluconate 2.3 meq/Magnesium Sulfate 20 meq/ Multivitamins 10 ml/Insulin Human Regular 10 units/ Amino Acids/ Dextrose 1,150.0462 ml @ 48 mls/hr [id number] IV 05/21/24 20:00 05/22/24 19:59 05/21/24 20:43 48 MLS/HR Heparin Sodium/ Dextrose 250 ml @ 14 mls/hr [id number] IV 05/22/24 12:15 Fat Emulsion Intravenous 100 ml/Sodium Chloride 60 meq/ Potassium Chloride 60 meq/ Calcium Gluconate 4.65 meq/ Magnesium Sulfate 20 meq/ Multivitamins 10 ml/Insulin Human Regular 14 units/ Amino Acids/ Dextrose 1,120.14 ml @ 47 mls/hr [id number] IV 05/22/24 20:00 05/23/24 19:59 laboratory and microbiology Laboratory Tests 05/22/24 03:20 Test 05/22/24 03:20 Range/Units Serum Glucose 206 H 74-106 mg/dL Microbiology Date/Time Source Procedure Growth Status 05/17/24 01:52 Urine - [place] Urine Culture - Final Yeast, not Shawanda albicans Complete 05/16/24 22:55 Blood Blood Culture - Final NO GROWTH AFTER 5 DAYS OF INCUBATION. Complete 05/16/24 22:28 Trachea Gram Stain - Final Complete 05/16/24 22:28 Trachea Respiratory Culture - Final 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 LABILE ON VASOPRESSOR TRENDING DOWN WBC WNL ABD SOFT NO BM DRAIN IN PLACE SEROSANGUINEOUS RIGHT 30CC PURULENT, LEFT 40 CC SEROSANGUINEOUS DRESSING DRY RLQ ABD WALL ABSCESS COLLECTION PREVIOUS TROCAR SITE ANDREW REMOVED ABSCESS DRAINED 50 CC C/S SENT IODOFORM PACKING APPLIED CONDITION GUARDED FAMILY UPDATED NURSE AT BEDSIDE CONTINUE SUPPORTIVE CARE Plan discussed with: Patient Dietary Evaluation Review Comments: 1) Continue NPO 2) Continue current plan of care NPO SHEY COVARRUBIAS MD May 22, 2024 12:22
[2024-05-22] MEDS ORDERED: POTASSIUM CHL 20MEQ/100ML 100 ML IV SCH (12:30)
[2024-05-22 14:19] LABS: INR 1.03 (0.9-1.15); Prothrombin Time 10.9 sec (9.3-11.8)
[2024-05-22 20:22] LABS: INR 1.05 (0.9-1.15); Partial Thromboplastin Time 54.8 SEC (24.5-34.5); Prothrombin Time 11.1 sec (9.3-11.8)
[2024-05-22] MEDS: TPN PER PHARMACY IV NR (20:22)
[2024-05-23] VITALS (107 sets, daily range): BP systolic 83–206; BP diastolic 18–134; PULSE 67–103; RESP 15–24; TEMP 98.1–99.5; O2SAT 95–100
[2024-05-23 01:05] LABS: INR 1.03 (0.9-1.15); Partial Thromboplastin Time 54.5 SEC (24.5-34.5); Prothrombin Time 10.9 sec (9.3-11.8)
--- NOTE | 2024-05-23 04:38 | DVH ---
CHEST RADIOGRAPH Indication: Device placement Technique: Single frontal view of the chest was obtained Comparison: XY CHEST PORTABLE on DOS: 05/22/24 FINDINGS: Lines and Tubes: Right infusion catheter and central venous catheter which are unchanged. Endotrache al tube terminates above the joaquin. NG tube terminates below the left hemidiaphragm. Lungs: Right basilar opacity. Mild pulmonary congestion. Pleura: No effusion. No pneumothorax. Cardiomediastinal contours: Unremarkable Bones: No acute osseous abnormality. IMPRESSION: 1. Right basilar opacity. Right basilar opacity. Mild pulmonary congestion.
[2024-05-23 04:55] LABS: Hematocrit 28.9 % (36.0-46.0); Hemoglobin 10.3 g/dL (12.2-16.2); Mean Corpuscular Hemoglobin 30.8 pg (28.0-32.0); Mean Corpuscular Hgb Conc. 35.9 g/dL (32.0-36.0); Mean Corpuscular Volume 85.9 fL (80.0-100.0); Platelet Count (auto) 137 10^3/uL (140-450); Red Blood Cells 3.36 10^6/uL (4.0-5.20); Red Cell Distribution Width 15.4 % (11.8-14.3); White Blood Cell 7.3 10^3/uL (4.4-10.8)
[2024-05-23 05:13] LABS: Basophils % (manual) 0 (0.0-2.0); Blast Cells 0; Eosinophils % (manual) 0 (0-7); Metamyelocytes % 0; Myelocytes % 0; Promyelocytes % 0; Reactive Lymphocytes 0
[2024-05-23 05:14] LABS: Alanine Aminotransferase 35 U/L (7-40); Albumin 3.2 g/dL (3.2-4.8); Alkaline Phosphatase 170 U/L (46-116); Anion Gap 8 (5-15); Aspartate Aminotransferase 48 U/L (13-40); BUN/Creatinine Ratio 49.3 (10.0-20.0); Calcium 8.6 mg/dL (8.7-10.4); Carbon Dioxide 35 mmol/L (20-31); Chloride 91 mmol/L (98-107); Glucose 183 mg/dL (74-106); Magnesium 2.2 mg/dL (1.6-2.6); Potassium 3.4 mmol/L (3.5-5.1); Sodium 134 mmol/L (136-145)
[2024-05-23 05:15] LABS: Phosphorus 3.8 mg/dL (2.4-5.1)
[2024-05-23 05:16] LABS: Bilirubin, Total 3.1 mg/dL (0.2-1.0); Total Protein 6.5 g/dL (5.7-8.2)
[2024-05-23 05:23] LABS: Blood Urea Nitrogen 37 mg/dL (9-23)
--- NOTE | 2024-05-23 06:24 | DVH ---
CHEST RADIOGRAPH Indication:FU Technique: Single frontal view of the chest was obtained Comparison: XY CHEST PORTABLE on DOS: 05/23/24 FINDINGS: Lines and Tubes: Right infusion catheter and right central venous catheter are unchanged. Endotrache al tube terminates above the joaquin the enteric tube courses below the left hemidiaphragm and the tip extends outside the field of view. Lungs: Mild pulmonary congestion and right basilar airspace disease are unchanged. Pleura: No effusion. No pneumothorax. Cardiomediastinal contours: Stable. Bones: No acute osseous abnormality. IMPRESSION: 1. No significant interval change.
[2024-05-23 06:54] LABS: INR 1.03 (0.9-1.15); Partial Thromboplastin Time 52.9 SEC (24.5-34.5); Prothrombin Time 10.9 sec (9.3-11.8)
[2024-05-23 07:20] LABS: Band Neutrophils % (manual) 2; Lymphocytes % (manual) 8 (10.0-50.0); Monocytes % (manual) 7 (0-12)
[2024-05-23 07:21] LABS: Platelet Estimate Decreased
[2024-05-23 08:06] LABS: Base Excess 9.7 mmol/L (-2.0-3.0)
--- NOTE | 2024-05-23 09:25 | DVHPN2 ---
Progress Note Date Seen: May 23, 2024 Has the PT tested + for MRSA If YES, has PT been informed?: No Medical Necessity Reason Pt with a Central, PICC or Fol: No Objective vital signs Vital Sign Date Time Temp Pulse Resp B/P (MAP) Pulse Ox O2 Delivery O2 Flow Rate FiO2 05/23/24 07:44 74 20 112/33 (59) 99 30 05/23/24 06:45 98.8 209.8 05/23/24 06:00 Mechanical Ventilator+ Total Intake and Output 05/22/24 05/22/24 05/23/24 15:00 23:00 07:00 Intake Total 843.000 ml 827.000 ml 682.627 ml Output Total 2161 ml 1985 ml Balance 843.000 ml -1334.000 ml -1302.373 ml medications Current Medications Medications Dose Ordered Sig/Nora Route Start Time Stop Time Status Last Admin Dose Admin Ondansetron HCl 4 mg Q4HP PRN IV 05/07/24 16:30 05/16/24 05:55 4 MG Morphine Sulfate 2 mg Q4HPRN PRN IV 05/15/24 17:45 05/16/24 05:56 2 MG Fentanyl Citrate 250 ml @ 2.5 mls/hr Q24H IV 05/16/24 14:00 05/23/24 02:12 12.5 MLS/HR Midazolam HCl 50 ml @ 1 mls/hr Q24H IV 05/16/24 21:00 05/22/24 23:09 4 MLS/HR Phenylephrine HCl 250 ml @ 30 mls/hr Q8H20M IV 05/16/24 21:15 05/17/24 06:03 30 MLS/HR Acetaminophen [address] 05/16/24 22:30 05/16/24 22:30 650 MG Pantoprazole Sodium 40 mg DAILY IV 05/17/24 10:00 05/22/24 09:37 40 MG Amino Acids 0 ml @ 0 mls/hr PER PHARMACY IV 05/17/24 08:30 Diagnostic Test (Pha) 1 strip Q6HR 05/17/24 18:00 05/23/24 05:24 1 STRIP Insulin Human Regular FOLLOW SLIDING SCALE Q6HR SC 05/17/24 18:00 05/23/24 05:27 4 UNITS Dextrose 50 ml UD IV 05/17/24 12:30 Meropenem 50 ml @ 17 mls/hr Q8HR IV 05/18/24 14:00 05/23/24 05:24 17 MLS/HR Vancomycin HCl 0 ml @ 0 mls/hr UD IV 05/18/24 07:45 Vancomycin HCl 200 ml @ 200 mls/hr Q18H IV 05/18/24 09:00 05/22/24 20:53 200 MLS/HR Metoprolol Tartrate 1.25 mg Q6HPRN PRN IV 05/18/24 16:00 05/18/24 16:17 1.25 MG Norepinephrine Bitartrate 32 mg/ Sodium Chloride 250 ml @ 0.938 mls/ hr Q24H IV 05/18/24 16:00 05/21/24 18:38 4.688 MLS/HR Amiodarone HCl 250 ml @ 16.667 mls/ hr Q15H IV 05/18/24 22:30 05/20/24 20:59 16.667 MLS/HR Heparin Sodium/ Dextrose 250 ml @ 14 mls/hr [id number] IV 05/22/24 12:15 05/23/24 01:20 16 MLS/HR Fat Emulsion Intravenous 100 ml/Sodium Chloride 60 meq/ Potassium Chloride 60 meq/ Calcium Gluconate 4.65 meq/ Magnesium Sulfate 20 meq/ Multivitamins 10 ml/Insulin Human Regular 14 units/ Amino Acids/ Dextrose 1,120.14 ml @ 47 mls/hr [id number] IV 05/22/24 20:00 05/23/24 19:59 05/22/24 20:22 47 MLS/HR Potassium Chloride 100 ml @ 50 mls/hr Q2H IV 05/22/24 12:30 05/22/24 16:29 Cancel Furosemide 40 mg DAILY IV 05/23/24 10:00 Micafungin Sodium 100 mg/Sodium Chloride 100 ml @ 100 mls/hr DAILY IV 05/23/24 10:00 laboratory and microbiology Laboratory Tests 05/23/24 03:30 Test 05/23/24 03:30 Range/Units Serum Glucose 183 H 74-106 mg/dL Microbiology Date/Time Source Procedure Growth Status 05/17/24 01:52 Urine - [place] Urine Culture - Final Yeast, not Shawanda albicans Complete 05/16/24 22:55 Blood Blood Culture - Final NO GROWTH AFTER 5 DAYS OF INCUBATION. Complete 05/16/24 22:28 Trachea Gram Stain - Final Complete 05/16/24 22:28 Trachea Respiratory Culture - Final 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 LABILE OFF VASOPRESSOR WBC WNL ABD SOFT BM + DRAIN IN PLACE SEROSANGUINEOUS RIGHT 50CC PURULENT, LEFT 40 CC SEROSANGUINEOUS DRESSING DRY RLQ ABD WALL IODOFORM PACKING IN PLACE CONDITION GUARDED FAMILY UPDATED NURSE AT BEDSIDE CONTINUE SUPPORTIVE CARE Plan discussed with: Patient My Orders My Orders Orders - SHEY COVARRUBIAS MD Procedure Category Date Status Time Wound Culture W/ Gs MIROSLAVA 05/22/24 In Process 12:53 Dietary Evaluation Review Comments: 1) Continue NPO 2) Continue current plan of care NPO SHEY COVARRUBIAS MD May 23, 2024 09:25
--- NOTE | 2024-05-23 09:30 | DVHPN2 ---
Subjective Patient chemically sedated Reviewed: Care Plan, H&P, Labs, Medications, Previous Orders, Radiology Changes from previous H/P or p: No Changes General: Per HPI Eyes: No Pain, No Vision change, No Conjunctivae inflammation, No Eyelid inflammation, No Other, No Redness ENT: No Ear pain, No Ear discharge, No Nose pain, No Nose discharge, No Nose congestion, No Mouth pain, No Mouth swelling, No Throat pain, No Throat swelling, No Other Cardiovascular: No Chest Pain, No Palpitations, No Orthopnea, No Paroxysmal Noc. Dyspnea, No Edema, No Lt Headedness, No Other Respiratory: No Cough, No Dry, No Shortness of breath, No SOB with excertion, No Wheezing, No Hemoptysis, No Pleuritic Pain, No Sputum, No Other Gastrointestinal: Nausea Genitourinary: No Dysuria, No Frequency, No Incontinence, No Hematuria, No Retention, No Other Musculoskeletal: No other, No neck pain, No shoulder pain, No arm pain, No back pain, No hand pain, No leg pain, No foot pain Skin: No Rash, No Lesions, No Jaundice, No Bruising, No Other Objective Vitals Vital Signs Date Time Temp Pulse Resp B/P (MAP) Pulse Ox O2 Delivery O2 Flow Rate FiO2 05/23/24 07:44 74 20 112/33 (59) 99 30 05/23/24 06:45 98.8 209.8 05/23/24 06:00 Mechanical Ventilator+ Intake/Output Intake and Output 05/23/24 07:00 Intake Total 2352.627 ml Output Total 4146 ml Balance -1793.373 ml IV Total 2352.627 ml Output Urine Total 3800 ml Gastric Drainage Total 250 ml Drainage Total 96 ml # Bowel Movements 1 General Appearance: moderate distress, Other (Intubated and sedated) HEENT: Atraumatic, PERRLA Lungs: Clear to auscultation, Normal air movement Cardiovascular: Regular rate, Normal S1, Normal S2 Abdomen: Normal bowel sounds, Soft, Other (Patient continues to have pustulant drainage from right upper quadrant EVARISTO drain) Musculoskeletal: Other (Unable to assess) Extremities: No edema Neuro: Other (Left arm weakness including program services assistant and proximal muscles) Skin: Dry, Intact, Other (Surgical incision dry and intact) Psych/Mental Status: Mental status NL, Mood NL Medications Current Medications Medications Dose Ordered Sig/Nora Route Start Time Stop Time Status Last Admin Dose Admin Ondansetron HCl 4 mg Q4HP PRN IV 05/07/24 16:30 05/16/24 05:55 4 MG Morphine Sulfate 2 mg Q4HPRN PRN IV 05/15/24 17:45 05/16/24 05:56 2 MG Fentanyl Citrate 250 ml @ 2.5 mls/hr Q24H IV 05/16/24 14:00 05/23/24 02:12 12.5 MLS/HR Midazolam HCl 50 ml @ 1 mls/hr Q24H IV 05/16/24 21:00 05/22/24 23:09 4 MLS/HR Phenylephrine HCl 250 ml @ 30 mls/hr Q8H20M IV 05/16/24 21:15 05/17/24 06:03 30 MLS/HR Acetaminophen 650 mg Q6HPRN PRN NM 05/16/24 22:30 05/16/24 22:30 650 MG Pantoprazole Sodium 40 mg DAILY IV 05/17/24 10:00 05/22/24 09:37 40 MG Amino Acids 0 ml @ 0 mls/hr PER PHARMACY IV 05/17/24 08:30 Diagnostic Test (Pha) 1 strip Q6HR 05/17/24 18:00 05/23/24 05:24 1 STRIP Insulin Human Regular FOLLOW SLIDING SCALE Q6HR SC 05/17/24 18:00 05/23/24 05:27 4 UNITS Dextrose 50 ml UD IV 05/17/24 12:30 Meropenem 50 ml @ 17 mls/hr Q8HR IV 05/18/24 14:00 05/23/24 05:24 17 MLS/HR Vancomycin HCl 0 ml @ 0 mls/hr UD IV 05/18/24 07:45 Vancomycin HCl 200 ml @ 200 mls/hr Q18H IV 05/18/24 09:00 05/22/24 20:53 200 MLS/HR Metoprolol Tartrate 1.25 mg Q6HPRN PRN IV 05/18/24 16:00 05/18/24 16:17 1.25 MG Norepinephrine Bitartrate 32 mg/ Sodium Chloride 250 ml @ 0.938 mls/ hr Q24H IV 05/18/24 16:00 05/21/24 18:38 4.688 MLS/HR Amiodarone HCl 250 ml @ 16.667 mls/ hr Q15H IV 05/18/24 22:30 05/20/24 20:59 16.667 MLS/HR Heparin Sodium/ Dextrose 250 ml @ 14 mls/hr [id number] IV 05/22/24 12:15 05/23/24 01:20 16 MLS/HR Fat Emulsion Intravenous 100 ml/Sodium Chloride 60 meq/ Potassium Chloride 60 meq/ Calcium Gluconate 4.65 meq/ Magnesium Sulfate 20 meq/ Multivitamins 10 ml/Insulin Human Regular 14 units/ Amino Acids/ Dextrose 1,120.14 ml @ 47 mls/hr [id number] IV 05/22/24 20:00 05/23/24 19:59 05/22/24 20:22 47 MLS/HR Potassium Chloride 100 ml @ 50 mls/hr Q2H IV 05/22/24 12:30 05/22/24 16:29 Cancel Furosemide 40 mg DAILY IV 05/23/24 10:00 Micafungin Sodium 100 mg/Sodium Chloride 100 ml @ 100 mls/hr DAILY IV 05/23/24 10:00 Laboratory Results Laboratory Tests 05/23/24 03:30 Chemistry Test 05/23/24 03:30 Albumin 3.2 g/dL (3.2-4.8) Calcium Level 8.6 mg/dL (8.7-10.4) L Magnesium Level 2.2 mg/dL (1.6-2.6) Phosphorus Level 3.8 mg/dL (2.4-5.1) Total Protein 6.5 g/dL (5.7-8.2) Coagulation Test 05/22/24 10:00 05/22/24 13:48 05/22/24 19:40 05/23/24 00:30 Prothrombin Time 11.2 sec (9.3-11.8) 10.9 sec (9.3-11.8) 11.1 sec (9.3-11.8) 10.9 sec (9.3-11.8) Prothrombin Time INR 1.06 (0.9-1.15) 1.03 (0.9-1.15) 1.05 (0.9-1.15) 1.03 (0.9-1.15) Activated Partial Thromboplast Time 39.4 SEC (24.5-34.5) H 46.0 SEC (24.5-34.5) H 54.8 SEC (24.5-34.5) H 54.5 SEC (24.5-34.5) H Test 05/23/24 06:20 Prothrombin Time 10.9 sec (9.3-11.8) Prothrombin Time INR 1.03 (0.9-1.15) Activated Partial Thromboplast Time 52.9 SEC (24.5-34.5) H LFT Test 05/23/24 03:30 Alanine Aminotransferase (ALT) 35 U/L (7-40) Alkaline Phosphatase 170 U/L (46-116) H Aspartate Amino Transferase (AST) 48 U/L (13-40) H Total Bilirubin 3.1 mg/dL (0.2-1.0) H Urinalysis Test 05/11/24 16:18 Urine Color Yellow (Yellow) Urine Clarity Clear (Clear) Urine pH 6.0 (5.0-9.0) Urine Specific [place] 1.020 (1.001-1.035) Urine Protein 1+ (Negative) H Urine Ketones 4+ (Negative) H Urine Blood Trace /uL (Negative) H Urine Nitrite Negative (Negative) Urine Bilirubin Negative (Negative) Urine Urobilinogen Normal mg/dL (Negative) Urine Leukocyte Esterase Negative /uL (Negative) Urine RBC 2 /hpf (0 - 4) Urine WBC 2 /hpf (0 - 5) Urine Squamous Epithelial Cells Few /hpf (<5) Urine Bacteria None seen /hpf (None Seen) Urine Mucus Few (None Seen) Urine Glucose Normal mg/dL (Normal) Blood Gas Results Test 05/23/24 07:27 Arterial Blood pH 7.546 (7.350-7.450) FiO2 % 30.0 Microbiology Microbiology Date/Time Source Procedure Growth Status 05/17/24 01:52 Urine - [place] Urine Culture - Final Yeast, not Shawanda albicans Complete 05/16/24 22:55 Blood Blood Culture - Final NO GROWTH AFTER 5 DAYS OF INCUBATION. Complete 05/16/24 22:28 Trachea Gram Stain - Final Complete 05/16/24 22:28 Trachea Respiratory Culture - Final Complete 05/16/24 14:20 Sputum Gram Stain - Final Complete 05/16/24 14:20 Respiratory Culture - Final Yeast, not Shawanda albicans Complete Labs and/or images reviewed: Labs reviewed by me, Image(s) reviewed by me Assessment/Plan Assessment/Plan Impression: Abdominal pain due to recent robotic surgery hysterectomy and salpingo- oophorectomy History of breast cancer with bilateral mastectomies History of bowel surgery and ileostomy which Anemia due to blood loss and dilution Hypotension Chronic pain syndrome, patient takes opiates at home Hypokalemia Hypomagnesemia Anemia Afib with RVR Plan: Events: Fever resolved. Dr. Lake manually suctioned abscess to epigastric area through surgical incision. Plans for reassessment of abscess tomorrow via CT scan. Yeast noted in sputum and Shannon catheter. Change Shannon catheter -potassium replacement per pharmacy -continue heparin drip. -IV diuresis: Decrease Lasix to 40 mg daily -TPN with electrolyte replacement per pharmacy -antibiotic therapy to vancomycin and meropenem, add micafungin -NG tube to low intermittent suction -ventilator settings AC 16, tidal volume 450, peep 5, FiO2 35% -PUD, DVT prophylaxis -repeat labs, chest x-ray, ABG in a.m. Critical care time spent with patient discussing and formulating plan of care: 40 minutes. This does not include time spent performing procedures. This medical document was created using an electronic medical record system with [employer] dictation system. Although this document has been carefully reviewed, there may still be some phonetic and typographical errors. These areas are purely typographical due to imperfections of the software programs, and do not reflect any compromise in the patient's medical care. Plan discussed with: Patient, Other (RN) My Orders Orders - ODIN MIRANDA NP Procedure Category Date Status Time * Wound Consult CONS 05/22/24 Transmitted 11:29 * Dietary Consult CONS 05/22/24 Transmitted 11:29 Heparin Per Pharmacy [facility] 05/22/24 In Process Protocol 11:58 Heparin Drip/D5w PHA 05/22/24 In Process 100units/Ml 12:15 Amino Acid PHA 05/22/24 In Process Infusion... W/Fat 20:00 Nursing Protocol For MARY BETH 05/22/24 In Process TPN 20:00 Change Dressing Daily MARY BETH 05/22/24 In Process 13:17 Heparin Per Pharmacy [facility] 05/23/24 In Process Protocol 01:30 Vancomycin,Trough LAB 05/23/24 Logged 14:00 Vancomycin Per MARY BETH 05/22/24 In Process Pharmacy Protoc 21:18 Chest Xray 1 View XY 05/23/24 Resulted 05:23 Furosemide Injection PHA 05/23/24 In Process (Lasix Injection) 10:00 Micafungin Sodium PHA 05/23/24 In Process (Mycamine) 10:00 Ok To Change Shannon ORDERS 05/23/24 Transmitted 09:19 Ct Ab Pel Wo Con-No CT 05/23/24 Verified Oral Or Iv 09:26 Complete Blood Count LAB 05/24/24 Verified 05:00 Complete Blood Count LAB 05/25/24 Verified 05:00 Complete Blood Count LAB 05/26/24 Verified 05:00 Complete Blood Count LAB 05/27/24 Verified 05:00 Complete Blood Count LAB 05/28/24 Verified 05:00 Date of Service: May 23, 2024 Billing Provider: ODIN MIRANDA NP Common Visit Codes: [id number] CARE 30-74 MIN ODIN MIRANDA NP May 23, 2024 09:30
[2024-05-23] MEDS: FUROSEMIDE 40 MG/4 ML VIAL IV SCH (10:22)
--- NOTE | 2024-05-23 10:41 | DVHPN2 ---
Progress Note - Dictate Date Seen: May 23, 2024 Has the PT tested + for MRSA If YES, has PT been informed?: No Medical Necessity Reason Pt with a Central, PICC or Fol: No Subjective Ms. Barrera is a 68 years old right-handed female with a history of hypertension, anemia, breast cancer, she was admitted to the [facility] on 05/07/2024 for scheduled hysterectomy and oophorectomy. Post surgically, she woke up with left-sided weakness, and MRI showed multiple stroke in the right MCA territory. During the hospital stay, she developed fall perforation, and she went through abdominal surgery on 05/16/2024 I have seen and examined the patient in the ICU, I have discussed with her nurse and Mynor. She is responsive to strong painful stimuli Versed 4 mg/hour CBC, 05/16/2024: Metabolic acidosis, 05/17/2024: Metabolic acidosis, 05/18/2024: Metabolic acidosis URINALYSIS, 05/11/2024: WBC: 2, URINE LEUKOCYTE ESTERASE: NEGATIVE WBC/HB/PLT/MCV, 05/04: 5.1/10.7/119/98.3, 05/17/2024: 20.4/8.5/205/86.9 05/19/2024: 12.2/11.1/125/86.2, 05/20/2024: 8.1/10.5/113/86.1, 05/21/2024: 6.6/10.5/106/86.5 PT/INR/FTT, 05/16/2024: 17.4/1.71/34.2 K, 05/09/2024: 3.9, 05/10/24:3.1, 05/12/2024: 3.4, 05/16/2024: 2.8 Lactic acid, 05/15/2024: 1.6, 05/16/2024: 1.5 HCO3, 05/23/2024: 35 Bun.Cr, 05/23/2024: 37/0.75 LIVER FUNCTION TESTS, 05/12/2024: UNREMARKABLE, 05/16/2024: Unremarkable TBI/AST/ALT/AP, 05/18/2024: 1.2/8/47, 05/19/2024: 3.1/04/23/2067, 05/23/2024: 3.1/48/35/170 TG/HDL/LDL/HDL, 05/12/2024: 196/134/75/23 TSH, 05/12/2024: 2.01 Echocardiogram 05/14/2024: lvef 65% by visual estimate mild mitral regurg RV enlarged mild left atrium enlarged mild Carotid Doppler, 05/11/2024: 1. Occlusion of the right proximal ICA. 2. Greater than 50% stenosis of the right proximal ECA. 3. Greater than 50% stenosis of the left proximal ICA CT head, 05/11/2024: 1. Chronic lacunar infarct in right centrum semiovale. 2. Chronic periventricular ischemic changes. 3. Cerebral and cerebellar atrophy, likely age-related. 4. Advised further evaluation with MRI brain without contrast if clinically indicated CT abdomen/pelvis, 05/15/2024: Small bowel obstruction with evidence of perforation including free intraperitoneal fluid and air. Extensive subcutaneous emphysema likely secondary to bowel perforation CT abdomen/pelvis, 05/16/2024: 1. Sequelae of recent postsurgical changes as described above. Correlate with surgical history. 2. Pneumoperitoneum and free fluid in the abdomen and pelvis. 3. Large collection containing fluid and gas, predominantly in the right hemiabdomen. There is GI contrast extending into this collection from an adjacent small bowel loop. There is a component of this collection extending adjacent to the anterior superior aspect of the liver. 4. Moderate right hydronephrosis and hydroureter. The distal right ureter appears to be compressed by the large fluid collection in the right hemiabdomen. No obstructing calculus. 5. Dilated small bowel loops in the left hemiabdomen with suspected small-bowel obstruction. 6. Prominent subcutaneous edema in the ventral abdominal wall and extending caudally into the inguinal regions bilaterally, peroneal region, and anterior aspect of the left thigh. 7. Small bilateral pleural effusions with overlying atelectasis. 8. Additional findings as detailed above. CTA neck, head, 05/14/24: 1. Complete occlusion of the right cervical internal carotid artery. There may be trickle flow in distal right cervical ICA. 2. Poor flow in the right intracranial ICA likely retrograde perfusion through the contralateral left side posterior circulation through the communicating arteries. 3. High-grade stenosis at the left carotid bulb with at least 70-80% stenosis. Moderate short-segment stenosis in the left proximal ICA with at least 60% stenosis. MRI HEAD, 05/11/2024: 1. Multiple foci of restricted diffusion in the right centrum semiovale and along the right superior frontal lobe compatible with acute to subacute infarcts. There is no evidence of acute hemorrhage or significant surrounding edema. 2. Absence of flow void in the intracranial portions of the right internal carotid artery which is likely occluded. vital signs Vital Sign Date Time Temp Pulse Resp B/P (MAP) Pulse Ox O2 Delivery O2 Flow Rate FiO2 05/23/24 10:22 127/53 05/23/24 10:19 85 20 100 30 05/23/24 06:45 98.8 209.8 05/23/24 06:00 Mechanical Ventilator+ Total Intake and Output 05/22/24 05/22/24 05/23/24 15:00 23:00 07:00 Intake Total 843.000 ml 827.000 ml 682.627 ml Output Total 2161 ml 1985 ml Balance 843.000 ml -1334.000 ml -1302.373 ml medications Current Medications Medications Dose Ordered Sig/Nora Route Start Time Stop Time Status Last Admin Dose Admin Ondansetron HCl 4 mg Q4HP PRN IV 05/07/24 16:30 05/16/24 05:55 4 MG Morphine Sulfate 2 mg Q4HPRN PRN IV 05/15/24 17:45 05/16/24 05:56 2 MG Fentanyl Citrate 250 ml @ 2.5 mls/hr Q24H IV 05/16/24 14:00 05/23/24 02:12 12.5 MLS/HR Midazolam HCl 50 ml @ 1 mls/hr Q24H IV 05/16/24 21:00 05/22/24 23:09 4 MLS/HR Phenylephrine HCl 250 ml @ 30 mls/hr Q8H20M IV 05/16/24 21:15 05/17/24 06:03 30 MLS/HR Acetaminophen 650 mg Q6HPRN PRN NM 05/16/24 22:30 05/16/24 22:30 650 MG Pantoprazole Sodium 40 mg DAILY IV 05/17/24 10:00 05/23/24 10:21 40 MG Amino Acids 0 ml @ 0 mls/hr PER PHARMACY IV 05/17/24 08:30 Diagnostic Test (Pha) 1 strip Q6HR 05/17/24 18:00 05/23/24 05:24 1 STRIP Insulin Human Regular FOLLOW SLIDING SCALE Q6HR SC 05/17/24 18:00 05/23/24 05:27 4 UNITS Dextrose 50 ml UD IV 05/17/24 12:30 Meropenem 50 ml @ 17 mls/hr Q8HR IV 05/18/24 14:00 05/23/24 05:24 17 MLS/HR Vancomycin HCl 0 ml @ 0 mls/hr UD IV 05/18/24 07:45 Vancomycin HCl 200 ml @ 200 mls/hr Q18H IV 05/18/24 09:00 05/22/24 20:53 200 MLS/HR Metoprolol Tartrate 1.25 mg Q6HPRN PRN IV 05/18/24 16:00 05/18/24 16:17 1.25 MG Norepinephrine Bitartrate 32 mg/ Sodium Chloride 250 ml @ 0.938 mls/ hr Q24H IV 05/18/24 16:00 05/21/24 18:38 4.688 MLS/HR Amiodarone HCl 250 ml @ 16.667 mls/ hr Q15H IV 05/18/24 22:30 05/20/24 20:59 16.667 MLS/HR Heparin Sodium/ Dextrose 250 ml @ 14 mls/hr [id number] IV 05/22/24 12:15 05/23/24 01:20 16 MLS/HR Fat Emulsion Intravenous 100 ml/Sodium Chloride 60 meq/ Potassium Chloride 60 meq/ Calcium Gluconate 4.65 meq/ Magnesium Sulfate 20 meq/ Multivitamins 10 ml/Insulin Human Regular 14 units/ Amino Acids/ Dextrose 1,120.14 ml @ 47 mls/hr [id number] IV 05/22/24 20:00 05/23/24 19:59 05/22/24 20:22 47 MLS/HR Potassium Chloride 100 ml @ 50 mls/hr Q2H IV 05/22/24 12:30 05/22/24 16:29 Cancel Furosemide 40 mg DAILY IV 05/23/24 10:00 05/23/24 10:22 40 MG Micafungin Sodium 100 mg/Sodium Chloride 100 ml @ 100 mls/hr DAILY IV 05/23/24 10:00 objective General: the patient is well developed and nourished. No acute distress. ABDOMEN: Status post surgery MENTAL STATUS: Subjective. CRANIAL NERVES: Pupils are equal, round and nonreactive, very small. There are corneal reflexes and doll's eyes phenomenon. No signs of facial weakness. There are weak gagging or coughing reflexes SENSATION: No responses to pain stimuli. MOTOR: Normal tone in the upper and lower extremity. Normal muscle bulk. No fasciculations. No spontaneous movement. REFLEXES: Deep tendon reflexes are symmetrical. No pathological reflexes. CEREBELLAR/COORDINATION: Deferred GAIT/STATION: deferred. laboratory and microbiology Laboratory Tests 05/23/24 03:30 Test 05/23/24 03:30 Range/Units Serum Glucose 183 H 74-106 mg/dL Problem List Pelvic prolapse, can count urethrovesical junction, surgery repair on 05/07/2024 (Robotic supracervical hysterectomy bilateral salpingo-oophorectomy colposcopic pexy cystocele repair urethral sling partial vaginectomy) Bowel obstruction with perforation, intra-abdominal abscess, dense at [place], status post surgery 05/16/2024 Sepsis/septic shock Metabolic encephalopathy Acute right MCA territory multiple strokes Left hemiparesis Right ICA occlusion Left ICA severe stenosis Anemia Status post oophorectomy, hysterectomy Assessment/Plan Monitoring Supportive treatment ICU care Stabilize vitals/pressor drip Respiratory support/vent management IV antibiotics Oxygen Heparin drip for now Hold off Aspirin 81 mg q.d. Hold off Plavix 75 mg daily for 21 days Lipitor 20 mg daily (NPO) TPN Up to chair Physical therapy Further address bilateral carotid stenosis CLARA on discharge Surgery on case More recommendation per clinical course This medical document was created using an electronic medical record system with [employer] dictation system. Although this document has been carefully reviewed, there may still be some phonetic and typographical errors. These areas are purely typographical due to imperfections of the software programs, and do not reflect any compromise in the patient's medical care Prognosis Oriented Dietary Evaluation Review Comments: 1) Continue NPO 2) Continue current plan of care NPO Plan discussed with: Other Critical Care Time(min): 35 BRYAN FLORES MD May 23, 2024 10:41
[2024-05-23] MEDS: MICAFUNGIN SODIUM 100 MG in SODIUM CHL 0.9% 100 ML IV SCH (11:16)
[2024-05-23] MEDS: POTASSIUM CHL 20MEQ/100ML 100 ML IV ONE ×2 (14:15→14:32)
--- NOTE | 2024-05-23 16:04 | DVH ---
Exam: CT CT AB PEL WO CON-NO ORAL OR IV History: reassess abscess to upper quadrants Comparison Study: 05/16/2024 Technique: Multidetector CT of the abdomen and pelvis without contrast. Axial, coronal and sagittal m ultiplanar reformats were performed by the technologist on a separate workstation. Radiation Dose Information: CT Dose: CTDI volume is 10.88 mGy. Dose-length product is 657.12 mGy*cm Findings: Bibasilar atelectasis. Partially visualized heart is normal in size with trace pericardial effusion. Redemonstration of midline postsurgical changes of the ventral abdomen with associated underlying sma ll areas of mesenteric fat herniation. There is interval improvement in the soft tissue edema and sub cutaneous emphysema over the ventral abdomen, pelvis and upper thighs. Interval placement of a left lower abdominal quadrant approach drainage catheter terminating over the left upper abdominal quadrant. Additional right-sided mid to lower abdominal approach drainage mable ter terminating within the left hemipelvis. Significant interval decrease in size in the large right shila abdominal and pelvis fluid collection w ith residual. There is interval development of small to moderate intraperitoneal free fluid Interval significant improvement in the pneumoperitoneum. Liver, pancreas and adrenal glands are unremarkable. The gallbladder appears hyperdense with surround ing free fluid. Borderline splenomegaly with no focal splenic lesions. 3.3 cm left renal cyst. Mild atrophy of the right kidney. Otherwise kidneys, ureters and decompressed urinary bladder are unremarkable. Shannon catheter is in place. Enteric tube is noted within the stomach. Layering density over the gastric fundus which may represen t ingested material. Mild wall thickening of fluid-filled nondistended small bowel loops over the ant erior mid to lower abdomen which may be from the surrounding free fluid. Postsurgical changes of the cecum. Limited evaluation of the appendix given intraperitoneal free fluid. Rectal tube looped within the rectum. Postsurgical changes of the sigmoid. The remainder of the large bowel not well-visualize d. Question partial colectomy. No evidence of aortic aneurysm. Heavy atherosclerotic calcification of the aorta and bilateral iliac s. No significant lymphadenopathy. Moderate to severe degenerative changes of the thoracic and lumbar spine. Sclerotic focus of the left iliac bone which may represent a bone island with a blastic lesion not excluded. IMPRESSION: Postsurgical changes of the ventral abdomen with interval improvement in the diffuse soft tissue antwan a and ventral abdominal, pelvis and upper thigh subcutaneous emphysema. Interval significant decrease in size of the loculated collection within the right hemiabdomen and pe lvis with small residual. Interval placement of drainage catheters terminating over the left upper ab dominal quadrant and left hemipelvis as detailed above. Interval development of small to moderate ascites. Wall thickening of fluid-filled nondistended small bowel loops of the anterior mid to lower abdomen w hich may be from the surrounding ascites versus enteritis. Additional findings as above.
[2024-05-23] MEDS: TPN PER PHARMACY IV NR (19:36)
[2024-05-24] VITALS (107 sets, daily range): BP systolic 81–190; BP diastolic 31–89; PULSE 78–122; RESP 13–27; TEMP 95.2–100.2; O2SAT 98–100
[2024-05-24 04:15] LABS: Hematocrit 29.6 % (36.0-46.0); Hemoglobin 10.1 g/dL (12.2-16.2); Mean Corpuscular Hemoglobin 29.7 pg (28.0-32.0); Mean Corpuscular Hgb Conc. 34.2 g/dL (32.0-36.0); Platelet Count (auto) 161 10^3/uL (140-450); Red Blood Cells 3.41 10^6/uL (4.0-5.20); Red Cell Distribution Width 15.1 % (11.8-14.3); White Blood Cell 9.5 10^3/uL (4.4-10.8)
[2024-05-24 04:17] LABS: INR 1.03 (0.9-1.15); Partial Thromboplastin Time 50.6 SEC (24.5-34.5); Prothrombin Time 10.9 sec (9.3-11.8)
[2024-05-24 04:24] LABS: Alanine Aminotransferase 34 U/L (7-40); Alkaline Phosphatase 205 U/L (46-116); Anion Gap 6 (5-15); BUN/Creatinine Ratio 65.7 (10.0-20.0); Blood Urea Nitrogen 44 mg/dL (9-23); Calcium 8.8 mg/dL (8.7-10.4); Carbon Dioxide 31 mmol/L (20-31); Chloride 96 mmol/L (98-107); Glucose 165 mg/dL (74-106); Magnesium 2.5 mg/dL (1.6-2.6); Potassium 4.1 mmol/L (3.5-5.1); Sodium 133 mmol/L (136-145)
[2024-05-24 04:25] LABS: Albumin 3.2 g/dL (3.2-4.8); Aspartate Aminotransferase 39 U/L (13-40); Phosphorus 3.8 mg/dL (2.4-5.1)
[2024-05-24 04:26] LABS: Bilirubin, Total 2.9 mg/dL (0.2-1.0); Total Protein 6.6 g/dL (5.7-8.2)
[2024-05-24 04:32] LABS: Basophils % (manual) 0 (0.0-2.0); Blast Cells 0; Myelocytes % 0; Promyelocytes % 0; Reactive Lymphocytes 0
[2024-05-24 04:45] LABS: Triglycerides 176 mg/dL (< 150)
--- NOTE | 2024-05-24 05:55 | DVH ---
CHEST RADIOGRAPH Indication:INTUBATED Technique: Single frontal view of the chest was obtained Comparison: XY CHEST XRAY 1 VIEW on DOS: 05/23/24 FINDINGS: Lines and Tubes: The endotracheal tube terminates 4.9 cm above the joaquin. The enteric tube courses b elow the left hemidiaphragm and the tip extends outside the field of view. Right infusion catheter an d right central venous catheter are similar to prior study terminating in the superior vena cava. Lungs: Stable pulmonary congestion. Right basilar airspace disease is unchanged. Pleura: No effusion. No pneumothorax. Cardiomediastinal contours: Unremarkable Bones: No acute osseous abnormality. IMPRESSION: 1. No significant interval change.
[2024-05-24] MEDS: HEPARIN DRIP/D5W 100UNITS/ML 250 ML IV SCH (08:45)
[2024-05-24 08:52] LABS: Band Neutrophils % (manual) 15; Eosinophils % (manual) 2 (0-7); Lymphocytes % (manual) 6 (10.0-50.0); Metamyelocytes % 1; Monocytes % (manual) 3 (0-12); Platelet Estimate Adequate
[2024-05-24 09:01] LABS: Base Excess 3.8 mmol/L (-2.0-3.0)
--- NOTE | 2024-05-24 10:36 | DVHPN2 ---
Progress Note - Dictate Date Seen: May 24, 2024 Has the PT tested + for MRSA If YES, has PT been informed?: No Medical Necessity Reason Pt with a Central, PICC or Fol: No Subjective Ms. Barrera is a 68 years old right-handed female with a history of hypertension, anemia, breast cancer, she was admitted to the [facility] on 05/07/2024 for scheduled hysterectomy and oophorectomy. Post surgically, she woke up with left-sided weakness, and MRI showed multiple stroke in the right MCA territory. During the hospital stay, she developed fall perforation, and she went through abdominal surgery on 05/16/2024 I have seen and examined the patient in the ICU, I have discussed with her nurse and Mynor. She is responsive to painful stimuli, spontaneous movement in the right arm than leg noticed Versed 4 mg/hour, fentanyl 125 mcg/minutes CBC, 05/16/2024: Metabolic acidosis, 05/17/2024: Metabolic acidosis, 05/18/2024: Metabolic acidosis URINALYSIS, 05/11/2024: WBC: 2, URINE LEUKOCYTE ESTERASE: NEGATIVE WBC/HB/PLT/MCV, 05/04: 5.1/10.7/119/98.3, 05/17/2024: 20.4/8.5/205/86.9 05/19/2024: 12.2/11.1/125/86.2, 05/20/2024: 8.1/10.5/113/86.1, 05/21/2024: 6.6/10.5/106/86.5 PT/INR/FTT, 05/16/2024: 17.4/1.71/34.2 K, 05/09/2024: 3.9, 05/10/24:3.1, 05/12/2024: 3.4, 05/16/2024: 2.8 Lactic acid, 05/15/2024: 1.6, 05/16/2024: 1.5 HCO3, 05/23/2024: 35 Bun.Cr, 05/23/2024: 37/0.75 LIVER FUNCTION TESTS, 05/12/2024: UNREMARKABLE, 05/16/2024: Unremarkable TBI/AST/ALT/AP, 05/18/2024: 1.2/8//47, 05/19/2024: 3.1/04/23/2067, 05/23/2024: 3.1/48/35/170 TG/HDL/LDL/HDL, 05/12/2024: 196/134/75/23 TSH, 05/12/2024: 2.01 Echocardiogram 05/14/2024: lvef 65% by visual estimate mild mitral regurg RV enlarged mild left atrium enlarged mild Carotid Doppler, 05/11/2024: 1. Occlusion of the right proximal ICA. 2. Greater than 50% stenosis of the right proximal ECA. 3. Greater than 50% stenosis of the left proximal ICA CT head, 05/11/2024: 1. Chronic lacunar infarct in right centrum semiovale. 2. Chronic periventricular ischemic changes. 3. Cerebral and cerebellar atrophy, likely age-related. 4. Advised further evaluation with MRI brain without contrast if clinically indicated CT abdomen/pelvis, 05/15/2024: Small bowel obstruction with evidence of perforation including free intraperitoneal fluid and air. Extensive subcutaneous emphysema likely secondary to bowel perforation CT abdomen/pelvis, 05/16/2024: 1. Sequelae of recent postsurgical changes as described above. Correlate with surgical history. 2. Pneumoperitoneum and free fluid in the abdomen and pelvis. 3. Large collection containing fluid and gas, predominantly in the right hemiabdomen. There is GI contrast extending into this collection from an adjacent small bowel loop. There is a component of this collection extending adjacent to the anterior superior aspect of the liver. 4. Moderate right hydronephrosis and hydroureter. The distal right ureter appears to be compressed by the large fluid collection in the right hemiabdomen. No obstructing calculus. 5. Dilated small bowel loops in the left hemiabdomen with suspected small-bowel obstruction. 6. Prominent subcutaneous edema in the ventral abdominal wall and extending caudally into the inguinal regions bilaterally, peroneal region, and anterior aspect of the left thigh. 7. Small bilateral pleural effusions with overlying atelectasis. 8. Additional findings as detailed above. CT abdomen, 05/23/2024: Postsurgical changes of the ventral abdomen with interval improvement in the diffuse soft tissue edema and ventral abdominal, pelvis and upper thigh subcutaneous emphysema. Interval significant decrease in size of the loculated collection within the right hemiabdomen and pelvis with small residual. Interval placement of drainage catheters terminating over the left upper abdominal quadrant and left hemipelvis as detailed above. Interval development of small to moderate ascites. Wall thickening of fluid-filled nondistended small bowel loops of the anterior mid to lower abdomen which may be from the surrounding ascites versus enteritis. Additional findings as above. CTA neck, head, 05/14/24: 1. Complete occlusion of the right cervical internal carotid artery. There may be trickle flow in distal right cervical ICA. 2. Poor flow in the right intracranial ICA likely retrograde perfusion through the contralateral left side posterior circulation through the communicating arteries. 3. High-grade stenosis at the left carotid bulb with at least 70-80% stenosis. Moderate short-segment stenosis in the left proximal ICA with at least 60% stenosis. MRI HEAD, 05/11/2024: 1. Multiple foci of restricted diffusion in the right centrum semiovale and along the right superior frontal lobe compatible with acute to subacute infarcts. There is no evidence of acute hemorrhage or significant surrounding edema. 2. Absence of flow void in the intracranial portions of the right internal carotid artery which is likely occluded. vital signs Vital Sign Date Time Temp Pulse Resp B/P (MAP) Pulse Ox O2 Delivery O2 Flow Rate FiO2 05/24/24 09:36 152/69 05/24/24 09:15 99.7 102 25 100 211.5 05/24/24 08:31 30 05/24/24 08:00 Mechanical Ventilator+ Total Intake and Output 05/23/24 05/23/24 05/24/24 15:00 23:00 07:00 Intake Total 755.814 ml 955.0 ml 684.0 ml Output Total 1440 ml 736 ml Balance 755.814 ml -485.0 ml -52.0 ml medications Current Medications Medications Dose Ordered Sig/Nora Route Start Time Stop Time Status Last Admin Dose Admin Ondansetron HCl 4 mg Q4HP PRN IV 05/07/24 16:30 05/16/24 05:55 4 MG Morphine Sulfate 2 mg Q4HPRN PRN IV 05/15/24 17:45 05/16/24 05:56 2 MG Fentanyl Citrate 250 ml @ 2.5 mls/hr Q24H IV 05/16/24 14:00 05/23/24 21:46 12.5 MLS/HR Midazolam HCl 50 ml @ 1 mls/hr Q24H IV 05/16/24 21:00 05/24/24 09:36 4 MLS/HR Phenylephrine HCl 250 ml @ 30 mls/hr Q8H20M IV 05/16/24 21:15 05/17/24 06:03 30 MLS/HR Acetaminophen 650 mg Q6HPRN PRN [place] 05/16/24 22:30 05/16/24 22:30 650 MG Pantoprazole Sodium 40 mg DAILY IV 05/17/24 10:00 05/24/24 09:36 40 MG Amino Acids 0 ml @ 0 mls/hr PER PHARMACY IV 05/17/24 08:30 Meropenem 50 ml @ 17 mls/hr Q8HR IV 05/18/24 14:00 05/24/24 05:51 17 MLS/HR Vancomycin HCl 0 ml @ 0 mls/hr UD IV 05/18/24 07:45 Metoprolol Tartrate 1.25 mg Q6HPRN PRN IV 05/18/24 16:00 05/18/24 16:17 1.25 MG Norepinephrine Bitartrate 32 mg/ Sodium Chloride 250 ml @ 0.938 mls/ hr Q24H IV 05/18/24 16:00 05/21/24 18:38 4.688 MLS/HR Amiodarone HCl 250 ml @ 16.667 mls/ hr Q15H IV 05/18/24 22:30 05/20/24 20:59 16.667 MLS/HR Potassium Chloride 100 ml @ 50 mls/hr Q2H IV 05/22/24 12:30 05/22/24 16:29 Cancel Furosemide 40 mg DAILY IV 05/23/24 10:00 05/24/24 09:36 40 MG Micafungin Sodium 100 mg/Sodium Chloride 100 ml @ 100 mls/hr DAILY IV 05/23/24 10:00 05/24/24 09:47 100 MLS/HR Fat Emulsion Intravenous 100 ml/Sodium Chloride 60 meq/ Sodium Phosphate 20 meq/Potassium Chloride 50 meq/ Calcium Gluconate 3.5 meq/Magnesium Sulfate 18 meq/ Multivitamins 10 ml/Insulin Human Regular 16 units/ Amino Acids/ Dextrose/Purified Water 1,317.1868 ml @ 55 mls/hr [id number] IV 05/23/24 20:00 05/24/24 19:59 05/23/24 19:36 55 MLS/HR Vancomycin HCl 200 ml @ 200 mls/hr DAILY@1500 IV 05/24/24 15:00 Heparin Sodium/ Dextrose 250 ml @ 16 mls/hr [id number] IV 05/24/24 08:45 objective General: the patient is well developed and nourished. No acute distress. ABDOMEN: Status post surgery MENTAL STATUS: Subjective. CRANIAL NERVES: Pupils are equal, round and nonreactive, very small. There are corneal reflexes and doll's eyes phenomenon. No signs of facial weakness. There are weak gagging or coughing reflexes SENSATION: No responses to pain stimuli. MOTOR: Normal tone in the upper and lower extremity. Normal muscle bulk. No fasciculations. No spontaneous movement. REFLEXES: Deep tendon reflexes are symmetrical. No pathological reflexes. CEREBELLAR/COORDINATION: Deferred GAIT/STATION: deferred. laboratory and microbiology Laboratory Tests 05/24/24 03:20 Test 05/24/24 03:20 Range/Units Serum Glucose 165 H 74-106 mg/dL Problem List Pelvic prolapse, can count urethrovesical junction, surgery repair on 05/07/2024 (Robotic supracervical hysterectomy bilateral salpingo-oophorectomy colposcopic pexy cystocele repair urethral sling partial vaginectomy) Bowel obstruction with perforation, intra-abdominal abscess, dense at Bennett, status post surgery 05/16/2024 Sepsis/septic shock Metabolic encephalopathy Acute right MCA territory multiple strokes Left hemiparesis Right ICA occlusion Left ICA severe stenosis Anemia Status post oophorectomy, hysterectomy Assessment/Plan Monitoring Supportive treatment ICU care Stabilize vitals/pressor drip Respiratory support/vent management IV antibiotics Oxygen Heparin drip for now Hold off Aspirin 81 mg q.d. Hold off Plavix 75 mg daily for 21 days Lipitor 20 mg daily (NPO) TPN Up to chair Physical therapy Further address bilateral carotid stenosis CLARA on discharge Surgery on case More recommendation per clinical course This medical document was created using an electronic medical record system with [employer] system. Although this document has been carefully reviewed, there may still be some phonetic and typographical errors. These areas are purely typographical due to imperfections of the software programs, and do not reflect any compromise in the patient's medical care Prognosis poor Dietary Evaluation Review Comments: 1) Advance pt diet when medically feasible to a 2gmNa diet modified per [employer] recommendations 2) Continue current plan of care Expected Outcomes/Goals: 1) Pt diet to advance 2) F/U in 2-3 days Plan discussed with: BRYAN Angeles MD May 24, 2024 10:36
--- NOTE | 2024-05-24 10:55 | DVHPN2 ---
Subjective Patient chemically sedated Reviewed: Care Plan, H&P, Labs, Medications, Previous Orders, Radiology Changes from previous H/P or p: No Changes General: Per HPI Eyes: No Pain, No Vision change, No Conjunctivae inflammation, No Eyelid inflammation, No Other, No Redness ENT: No Ear pain, No Ear discharge, No Nose pain, No Nose discharge, No Nose congestion, No Mouth pain, No Mouth swelling, No Throat pain, No Throat swelling, No Other Cardiovascular: No Chest Pain, No Palpitations, No Orthopnea, No Paroxysmal Noc. Dyspnea, No Edema, No Lt Headedness, No Other Respiratory: No Cough, No Dry, No Shortness of breath, No SOB with excertion, No Wheezing, No Hemoptysis, No Pleuritic Pain, No Sputum, No Other Gastrointestinal: Nausea Genitourinary: No Dysuria, No Frequency, No Incontinence, No Hematuria, No Retention, No Other Musculoskeletal: No other, No neck pain, No shoulder pain, No arm pain, No back pain, No hand pain, No leg pain, No foot pain Skin: No Rash, No Lesions, No Jaundice, No Bruising, No Other Objective Vitals Vital Signs Date Time Temp Pulse Resp B/P (MAP) Pulse Ox O2 Delivery O2 Flow Rate FiO2 05/24/24 10:30 99.1 107 22 139/52 (81) 100 210.4 171/68 (102) 05/24/24 10:00 30 05/24/24 10:00 Mechanical Ventilator+ Intake/Output Intake and Output 05/24/24 07:00 Intake Total 2394.814 ml Output Total 2176 ml Balance 218.814 ml IV Total 2394.814 ml Output Urine Total 2050 ml Drainage Total 126 ml General Appearance: moderate distress, Other (Intubated and sedated) HEENT: Atraumatic, PERRLA Lungs: Clear to auscultation, Normal air movement Cardiovascular: Regular rate, Normal S1, Normal S2 Abdomen: Normal bowel sounds, Soft, Other (Patient continues to have pustulant drainage from right upper quadrant EVARISTO drain) Musculoskeletal: Other (Unable to assess) Extremities: No edema Neuro: Other (Left arm weakness including raftsman and proximal muscles) Skin: Dry, Intact, Other (Surgical incision dry and intact) Psych/Mental Status: Mental status NL, Mood NL Medications Current Medications Medications Dose Ordered Sig/Nora Route Start Time Stop Time Status Last Admin Dose Admin Ondansetron HCl 4 mg Q4HP PRN IV 05/07/24 16:30 05/16/24 05:55 4 MG Morphine Sulfate 2 mg Q4HPRN PRN IV 05/15/24 17:45 05/16/24 05:56 2 MG Fentanyl Citrate 250 ml @ 2.5 mls/hr Q24H IV 05/16/24 14:00 05/23/24 21:46 12.5 MLS/HR Midazolam HCl 50 ml @ 1 mls/hr Q24H IV 05/16/24 21:00 05/24/24 09:36 4 MLS/HR Phenylephrine HCl 250 ml @ 30 mls/hr Q8H20M IV 05/16/24 21:15 05/17/24 06:03 30 MLS/HR Acetaminophen 650 mg Q6HPRN PRN [place] 05/16/24 22:30 05/16/24 22:30 650 MG Pantoprazole Sodium 40 mg DAILY IV 05/17/24 10:00 05/24/24 09:36 40 MG Amino Acids 0 ml @ 0 mls/hr PER PHARMACY IV 05/17/24 08:30 Meropenem 50 ml @ 17 mls/hr Q8HR IV 05/18/24 14:00 05/24/24 05:51 17 MLS/HR Vancomycin HCl 0 ml @ 0 mls/hr UD IV 05/18/24 07:45 Metoprolol Tartrate 1.25 mg Q6HPRN PRN IV 05/18/24 16:00 05/18/24 16:17 1.25 MG Norepinephrine Bitartrate 32 mg/ Sodium Chloride 250 ml @ 0.938 mls/ hr Q24H IV 05/18/24 16:00 05/21/24 18:38 4.688 MLS/HR Amiodarone HCl 250 ml @ 16.667 mls/ hr Q15H IV 05/18/24 22:30 05/20/24 20:59 16.667 MLS/HR Potassium Chloride 100 ml @ 50 mls/hr Q2H IV 05/22/24 12:30 05/22/24 16:29 Cancel Furosemide 40 mg DAILY IV 05/23/24 10:00 05/24/24 09:36 40 MG Micafungin Sodium 100 mg/Sodium Chloride 100 ml @ 100 mls/hr DAILY IV 05/23/24 10:00 05/24/24 09:47 100 MLS/HR Fat Emulsion Intravenous 100 ml/Sodium Chloride 60 meq/ Sodium Phosphate 20 meq/Potassium Chloride 50 meq/ Calcium Gluconate 3.5 meq/Magnesium Sulfate 18 meq/ Multivitamins 10 ml/Insulin Human Regular 16 units/ Amino Acids/ Dextrose/Purified Water 1,317.1868 ml @ 55 mls/hr [id number] IV 05/23/24 20:00 05/24/24 19:59 05/23/24 19:36 55 MLS/HR Vancomycin HCl 200 ml @ 200 mls/hr DAILY@1500 IV 05/24/24 15:00 Heparin Sodium/ Dextrose 250 ml @ 16 mls/hr [id number] IV 05/24/24 08:45 Laboratory Results Laboratory Tests 05/24/24 03:20 Chemistry Test 05/24/24 03:20 Albumin 3.2 g/dL (3.2-4.8) Calcium Level 8.8 mg/dL (8.7-10.4) Magnesium Level 2.5 mg/dL (1.6-2.6) Phosphorus Level 3.8 mg/dL (2.4-5.1) Total Protein 6.6 g/dL (5.7-8.2) Coagulation Test 05/24/24 03:20 Prothrombin Time 10.9 sec (9.3-11.8) Prothrombin Time INR 1.03 (0.9-1.15) Activated Partial Thromboplast Time 50.6 SEC (24.5-34.5) H Lipid panel Test 05/24/24 03:20 Triglycerides Level 176 mg/dL (< 150) H LFT Test 05/24/24 03:20 Alanine Aminotransferase (ALT) 34 U/L (7-40) Alkaline Phosphatase 205 U/L (46-116) H Aspartate Amino Transferase (AST) 39 U/L (13-40) Total Bilirubin 2.9 mg/dL (0.2-1.0) H Urinalysis Test 05/11/24 16:18 Urine Color Yellow (Yellow) Urine Clarity Clear (Clear) Urine pH 6.0 (5.0-9.0) Urine Specific [place] 1.020 (1.001-1.035) Urine Protein 1+ (Negative) H Urine Ketones 4+ (Negative) H Urine Blood Trace /uL (Negative) H Urine Nitrite Negative (Negative) Urine Bilirubin Negative (Negative) Urine Urobilinogen Normal mg/dL (Negative) Urine Leukocyte Esterase Negative /uL (Negative) Urine RBC 2 /hpf (0 - 4) Urine WBC 2 /hpf (0 - 5) Urine Squamous Epithelial Cells Few /hpf (<5) Urine Bacteria None seen /hpf (None Seen) Urine Mucus Few (None Seen) Urine Glucose Normal mg/dL (Normal) Blood Gas Results Test 05/24/24 08:12 Arterial Blood pH 7.509 (7.350-7.450) FiO2 % 30.0 Microbiology Microbiology Date/Time Source Procedure Growth Status 05/22/24 12:00 Abdomen Gram Stain - Final Resulted 05/22/24 12:00 Abdomen Wound Culture - Preliminary Resulted 05/17/24 01:52 Urine - [place] Urine Culture - Final Yeast, not Shawanda albicans Complete 05/16/24 22:55 Blood Blood Culture - Final NO GROWTH AFTER 5 DAYS OF INCUBATION. Complete 05/16/24 14:20 Sputum Gram Stain - Final Complete 05/16/24 14:20 Respiratory Culture - Final Yeast, not Shawanda albicans Complete Labs and/or images reviewed: Labs reviewed by me, Image(s) reviewed by me Assessment/Plan Assessment/Plan Impression: Abdominal pain due to recent robotic surgery hysterectomy and salpingo- oophorectomy History of breast cancer with bilateral mastectomies History of bowel surgery and ileostomy which Anemia due to blood loss and dilution Hypotension Chronic pain syndrome, patient takes opiates at home Hypokalemia Hypomagnesemia Anemia Afib with RVR Plan: Events: Patient with persistent low-grade fevers. EVARISTO drain to right upper quadrant now with bilious green secretions. Case discussed with Dr. Lake. Reviewed CT scan from yesterday. Plans for repeat CT scan with oral contrast to rule out small-bowel perforation. -potassium replacement per pharmacy -continue heparin drip. -IV diuresis: Decrease Lasix to 40 mg daily -TPN with electrolyte replacement per pharmacy -antibiotic therapy to vancomycin and meropenem, add micafungin -NG tube to low intermittent suction -ventilator settings AC 16, tidal volume 450, peep 5, FiO2 35% -PUD, DVT prophylaxis -repeat labs, chest x-ray, ABG in a.m. Critical care time spent with patient discussing and formulating plan of care: 40 minutes. This does not include time spent performing procedures. This medical document was created using an electronic medical record system with [employer] dictation system. Although this document has been carefully reviewed, there may still be some phonetic and typographical errors. These areas are purely typographical due to imperfections of the software programs, and do not reflect any compromise in the patient's medical care. Plan discussed with: Patient, Other (RN) My Orders Orders - ODIN MIRANDA NP Procedure Category Date Status Time Amino Acid PHA 05/23/24 In Process Infusion... W/Fat 20:00 Tpn Per Pharmacy [facility] 05/23/24 In Process 20:00 Vancomycin 1gm/200ml PHA 05/24/24 In Process 15:00 Vancomycin,Trough LAB 05/26/24 Verified 14:00 Vancomycin Per [facility] 05/26/24 In Process Pharmacy Protoc 15:00 Chest Portable XY 05/24/24 Resulted 04:00 Abg W/ Co-Ox RT 05/24/24 Logged 04:00 PTPTT LAB 05/25/24 Verified 04:00 Heparin Drip/D5w PHA 05/24/24 In Process 100units/Ml 08:45 Ct Ab Pel With Oral CT 05/24/24 Transmitted Con Only 10:50 Date of Service: May 24, 2024 Billing Provider: ODIN MIRANDA NP Common Visit Codes: [id number] CARE 30-74 MIN ODIN MIRANDA NP May 24, 2024 10:55
[2024-05-24] MEDS: OMNIPAQUE 12mg/ml 500ml ORAL SOLUTION PO ONE ×2 (11:00)
[2024-05-24] MEDS: InsuLIN REG 1unit/0.01ml Soln (100units/ml) SC SCH (11:56)
[2024-05-24] MEDS: ACCU-CHEK COMFORT CURVE STRIP VI SCH (11:56)
[2024-05-24] MEDS ORDERED: DEXTROSE (50%) 50ML SYRG IV SCH (12:00)
--- NOTE | 2024-05-24 13:01 | DVHPN2 ---
Progress Note Date Seen: May 24, 2024 Has the PT tested + for MRSA If YES, has PT been informed?: No Medical Necessity Reason Pt with a Central, PICC or Fol: No Objective vital signs Vital Sign Date Time Temp Pulse Resp B/P (MAP) Pulse Ox O2 Delivery O2 Flow Rate FiO2 05/24/24 12:31 98.8 103 21 133/62 (85) 100 209.8 164/74 (104) 05/24/24 12:00 Mechanical Ventilator+ 30 30 Total Intake and Output 05/23/24 05/23/24 05/24/24 15:00 23:00 07:00 Intake Total 755.814 ml 955.0 ml 684.0 ml Output Total 1440 ml 736 ml Balance 755.814 ml -485.0 ml -52.0 ml medications Current Medications Medications Dose Ordered Sig/Nora Route Start Time Stop Time Status Last Admin Dose Admin Ondansetron HCl 4 mg Q4HP PRN IV 05/07/24 16:30 05/16/24 05:55 4 MG Morphine Sulfate 2 mg Q4HPRN PRN IV 05/15/24 17:45 05/16/24 05:56 2 MG Fentanyl Citrate 250 ml @ 2.5 mls/hr Q24H IV 05/16/24 14:00 05/23/24 21:46 12.5 MLS/HR Midazolam HCl 50 ml @ 1 mls/hr Q24H IV 05/16/24 21:00 05/24/24 09:36 4 MLS/HR Phenylephrine HCl 250 ml @ 30 mls/hr Q8H20M IV 05/16/24 21:15 05/17/24 06:03 30 MLS/HR Acetaminophen 650 mg Q6HPRN PRN DE 05/16/24 22:30 05/16/24 22:30 650 MG Pantoprazole Sodium 40 mg DAILY IV 05/17/24 10:00 05/24/24 09:36 40 MG Amino Acids 0 ml @ 0 mls/hr PER PHARMACY IV 05/17/24 08:30 Meropenem 50 ml @ 17 mls/hr Q8HR IV 05/18/24 14:00 05/24/24 05:51 17 MLS/HR Vancomycin HCl 0 ml @ 0 mls/hr UD IV 05/18/24 07:45 Metoprolol Tartrate 1.25 mg Q6HPRN PRN IV 05/18/24 16:00 05/18/24 16:17 1.25 MG Norepinephrine Bitartrate 32 mg/ Sodium Chloride 250 ml @ 0.938 mls/ hr Q24H IV 05/18/24 16:00 05/21/24 18:38 4.688 MLS/HR Amiodarone HCl 250 ml @ 16.667 mls/ hr Q15H IV 05/18/24 22:30 05/20/24 20:59 16.667 MLS/HR Potassium Chloride 100 ml @ 50 mls/hr Q2H IV 05/22/24 12:30 05/22/24 16:29 Cancel Furosemide 40 mg DAILY IV 05/23/24 10:00 05/24/24 09:36 40 MG Micafungin Sodium 100 mg/Sodium Chloride 100 ml @ 100 mls/hr DAILY IV 05/23/24 10:00 05/24/24 09:47 100 MLS/HR Fat Emulsion Intravenous 100 ml/Sodium Chloride 60 meq/ Sodium Phosphate 20 meq/Potassium Chloride 50 meq/ Calcium Gluconate 3.5 meq/Magnesium Sulfate 18 meq/ Multivitamins 10 ml/Insulin Human Regular 16 units/ Amino Acids/ Dextrose/Purified Water 1,317.1868 ml @ 55 mls/hr [id number] IV 05/23/24 20:00 05/24/24 19:59 05/23/24 19:36 55 MLS/HR Vancomycin HCl 200 ml @ 200 mls/hr DAILY@1500 IV 05/24/24 15:00 Heparin Sodium/ Dextrose 250 ml @ 16 mls/hr [id number] IV 05/24/24 08:45 Diagnostic Test (Pha) 1 strip Q6HR 05/24/24 12:00 05/24/24 11:56 1 STRIP Insulin Human Regular FOLLOW SLIDING SCALE Q6HR SC 05/24/24 12:00 05/24/24 11:56 4 UNITS Dextrose 50 ml UD IV 05/24/24 12:00 Fat Emulsion Intravenous 100 ml/Sodium Chloride 70 meq/ Sodium Phosphate 20 meq/Potassium Chloride 40 meq/ Calcium Gluconate 2.3 meq/Magnesium Sulfate 12 meq/ Multivitamins 10 ml/Insulin Human Regular 16 units/ Amino Acids/ Dextrose/Purified Water 1,360.61 ml @ 57 mls/hr [id number] IV 05/24/24 20:00 05/25/24 19:59 laboratory and microbiology Laboratory Tests 05/24/24 03:20 Test 05/24/24 03:20 Range/Units Serum Glucose 165 H 74-106 mg/dL Microbiology Date/Time Source Procedure Growth Status 05/22/24 12:00 Abdomen Gram Stain - Final Resulted 05/22/24 12:00 Abdomen Wound Culture - Preliminary Resulted 05/17/24 01:52 Urine - [place] Urine Culture - Final Yeast, not Shawanda albicans Complete 05/16/24 22:55 Blood Blood Culture - Final NO GROWTH AFTER 5 DAYS OF INCUBATION. 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
--- NOTE | 2024-05-24 14:29 | CODING ---
Date of Service: May 24, 2024 Billing Provider: ODIN MIRANDA NP Common Visit Codes: [id number] CARE-EACH +30MIN ODIN MIRANDA NP May 24, 2024 14:29
[2024-05-24] MEDS: VANCOMYCIN 1GM/250ML KIT 200 ML IV SCH (16:07)
[2024-05-24] MEDS ORDERED: ROCURONIUM 10MG/ML 10ML VIAL IV ONE (16:53)
--- NOTE | 2024-05-24 18:54 | DVHOP2 ---
Operative Report [id number] INTRAABD ABSCESS,ONGOING PERITONITIS, RESIDUAL ABSCESS AND BILE FLUID FROM PREVIOUS SURGERY EXTENSIVE ILEITIS E LAP DRAINAGE OF INTRAABD ABSCESS EXTENSIVE PERITONEAL LAVAGE DIVERTING LOOP ILEOSTOMY SURGEON R MARCI ASSIST DR PAZ 2 DRAINS EBL 50 CC NO COMPLICATIONS TRANSFERRED TO ICU IN A CRITICAL CONDITION OPERATIVE FINDINGS AND PROCEDURE DETAILS DISCUSSED WITH FAMILY AND NURSING STAFF SHEY COVARRUBIAS MD May 24, 2024 18:53
--- NOTE | 2024-05-24 19:42 | DVHOP ---
DATE OF SURGERY: 05/24/2024 PREOPERATIVE DIAGNOSES: Ongoing intraperitoneal sepsis with peritonitis with the potential of bowel perforation and extensive ileitis from her peritonitis before and ongoing. There also was a potential spot close to her previous anastomosis that had a potential for leakage and there is a possibility that might have happened and it got sealed off, but to be on the safe side that area also was secured. POSTOPERATIVE DIAGNOSES: Ongoing intraperitoneal sepsis with peritonitis with the potential of bowel perforation and extensive ileitis from her peritonitis before and ongoing. There also was a potential spot close to her previous anastomosis that had a potential for leakage and there is a possibility that might have happened and it got sealed off, but to be on the safe side that area also was secured. PROCEDURE: Exploratory laparotomy, drainage of intraabdominal abscess, thorough peritoneal lavage with reinforcement of the anastomotic location of the previous anastomosis as well as a diverting loop ileostomy. SURGEON: Crescencio Lake M.D. [employer] INTERNSHIP: Dr. Apple. BLOOD LOSS: Close to 50 mL. Two drains were used, one existing drain was retained in the left upper abdomen coming out from the left side and the right drain from a previous surgery was removed and it was replaced by a pelvic drain brought out through the right lower quadrant and secured with a silk suture. The ileostomy was created in the spot where she had a trocar placement from her robotic surgery and after thorough irrigation was carried out, the entire small bowel was examined, other than the major enteritis and potential for ischemia. The diverting ileostomy was carried out and a loop of small bowel was carefully brought out and matured after the closure of the abdomen. Sponge count, needle count was reported correct. Hemostasis was secured and as I mentioned, the drains were secured in place and the fascia was brought together using PDS suture. The skin was brought together using a stapling device. The subcutaneous tissues were drained using a Arturo drain bringing out from the lower portion of the incision and securing it with a silk suture. After this was done, the ileostomy was matured, it was a loop ileostomy and it was secured to the fascia in all 4 quadrants to the seromuscular layer and the fascia in all 4 quadrants and then the opening was applied in a vertical fashion and the mucosal edges were brought together using a Vicryl suture to the subcutaneous tissues all around the circular opening in a circumferentially manner. With this being done, the ileostomy bag was applied. The bowel remained viable at the end and with no complications. The patient was taken back to the ICU in a relatively critical condition and all the operating findings and the operative procedure as well as the reason for the ileostomy was discussed with the family and with the nursing staff. MD SANTOSH Riuz/ASTER/EDINSON/TOSHA TID: [id number] RECEIPT: [id number] cc: Dr. Cleaning
[2024-05-24] MEDS: TPN PER PHARMACY IV NR (20:14)
[2024-05-24 21:44] LABS: Hematocrit 30.5 % (36.0-46.0); Hemoglobin 10.2 g/dL (12.2-16.2); Mean Corpuscular Hemoglobin 29.5 pg (28.0-32.0); Mean Corpuscular Hgb Conc. 33.5 g/dL (32.0-36.0); Mean Corpuscular Volume 88.3 fL (80.0-100.0); Platelet Count (auto) 182 10^3/uL (140-450); Red Blood Cells 3.46 10^6/uL (4.0-5.20); Red Cell Distribution Width 15.2 % (11.8-14.3); White Blood Cell 16.9 10^3/uL (4.4-10.8)
[2024-05-24 21:48] LABS: Basophils % (manual) 0 (0.0-2.0); Blast Cells 0; Eosinophils % (manual) 0 (0-7); Metamyelocytes % 0; Myelocytes % 0; Promyelocytes % 0; Reactive Lymphocytes 0
[2024-05-24 22:05] LABS: Alanine Aminotransferase 24 U/L (7-40); Albumin 2.4 g/dL (3.2-4.8); Alkaline Phosphatase 129 U/L (46-116); Anion Gap 5 (5-15); Aspartate Aminotransferase 25 U/L (13-40); BUN/Creatinine Ratio 64.6 (10.0-20.0); Blood Urea Nitrogen 42 mg/dL (9-23); Calcium 7.3 mg/dL (8.7-10.4); Carbon Dioxide 24 mmol/L (20-31); Chloride 106 mmol/L (98-107); Glucose 220 mg/dL (74-106); Potassium 4.1 mmol/L (3.5-5.1); Sodium 135 mmol/L (136-145)
[2024-05-24 22:06] LABS: Bilirubin, Total 3.1 mg/dL (0.2-1.0); Phosphorus 4.8 mg/dL (2.4-5.1)
[2024-05-24 22:14] LABS: Band Neutrophils % (manual) 21; Lymphocytes % (manual) 3 (10.0-50.0); Monocytes % (manual) 6 (0-12); Platelet Estimate Adequate
[2024-05-24] MEDS: SODIUM CHLORIDE 0.9% 1,000 ML IV ONE (23:51)
[2024-05-25] VITALS (109 sets, daily range): BP systolic 77–165; BP diastolic 28–67; PULSE 79–157; RESP 11–30; TEMP 98.4–100.2; O2SAT 93–100
[2024-05-25 04:05] LABS: Basophils # (auto) 0 10 ^3/uL (0-0.2); Basophils % (auto) 0.1 % (0.0-2.0); Eosinophils # (auto) 0 10 ^3/uL (0-0.8); Eosinophils % (auto) 0.3 % (0.0-7.0); Hematocrit 28.4 % (36.0-46.0); Hemoglobin 9.6 g/dL (12.2-16.2); Lymphocytes # (auto) 0.4 10 ^3/uL (0.4-5.4); Lymphocytes % (auto) 3.5 % (10.0-50.0); Mean Corpuscular Hgb Conc. 33.9 g/dL (32.0-36.0); Mean Corpuscular Volume 88.6 fL (80.0-100.0); Monocytes # (auto) 0.5 10 ^3/uL (0-1.3); Monocytes % (auto) 4.8 % (0.0-12.0); Neutrophils # (auto) 10.3 10 ^3/uL (1.6-8.6); Neutrophils % (auto) 91.3 % (37.0-80.0); Platelet Count (auto) 167 10^3/uL (140-450); Red Blood Cells 3.21 10^6/uL (4.0-5.20); Red Cell Distribution Width 15.3 % (11.8-14.3); White Blood Cell 11.3 10^3/uL (4.4-10.8)
[2024-05-25 04:15] LABS: INR 1.08 (0.9-1.15); Partial Thromboplastin Time 31.1 SEC (24.5-34.5); Prothrombin Time 11.4 sec (9.3-11.8)
[2024-05-25 04:17] LABS: Alanine Aminotransferase 19 U/L (7-40); Albumin 2.3 g/dL (3.2-4.8); Alkaline Phosphatase 104 U/L (46-116); Anion Gap 7 (5-15); Aspartate Aminotransferase 19 U/L (13-40); BUN/Creatinine Ratio 68.1 (10.0-20.0); Bilirubin, Total 2.7 mg/dL (0.2-1.0); Blood Urea Nitrogen 47 mg/dL (9-23); Calcium 7.3 mg/dL (8.7-10.4); Carbon Dioxide 22 mmol/L (20-31); Chloride 108 mmol/L (98-107); Glucose 197 mg/dL (74-106); Magnesium 2.1 mg/dL (1.6-2.6); Phosphorus 5.1 mg/dL (2.4-5.1); Potassium 4.1 mmol/L (3.5-5.1); Sodium 137 mmol/L (136-145); Total Protein 4.7 g/dL (5.7-8.2)
--- NOTE | 2024-05-25 07:13 | DVHPN2 ---
Subjective Patient chemically sedated Reviewed: Care Plan, H&P, Labs, Medications, Previous Orders, Radiology Changes from previous H/P or p: No Changes General: Per HPI Eyes: No Pain, No Vision change, No Conjunctivae inflammation, No Eyelid inflammation, No Other, No Redness ENT: No Ear pain, No Ear discharge, No Nose pain, No Nose discharge, No Nose congestion, No Mouth pain, No Mouth swelling, No Throat pain, No Throat swelling, No Other Cardiovascular: No Chest Pain, No Palpitations, No Orthopnea, No Paroxysmal Noc. Dyspnea, No Edema, No Lt Headedness, No Other Respiratory: No Cough, No Dry, No Shortness of breath, No SOB with excertion, No Wheezing, No Hemoptysis, No Pleuritic Pain, No Sputum, No Other Gastrointestinal: Nausea Genitourinary: No Dysuria, No Frequency, No Incontinence, No Hematuria, No Retention, No Other Musculoskeletal: No other, No neck pain, No shoulder pain, No arm pain, No back pain, No hand pain, No leg pain, No foot pain Skin: No Rash, No Lesions, No Jaundice, No Bruising, No Other Objective Vitals Vital Signs Date Time Temp Pulse Resp B/P (MAP) Pulse Ox O2 Delivery O2 Flow Rate FiO2 05/25/24 06:15 98.6 100 20 124/37 (66) 100 209.5 105/52 (69) 05/25/24 06:00 Mechanical Ventilator+ 30 30 Intake/Output Intake and Output 05/25/24 07:00 Intake Total 2931.251 ml Output Total 3180 ml Balance -248.749 ml IV Total 2931.251 ml Output Urine Total 2310 ml Drainage Total 870 ml General Appearance: moderate distress, Other (Intubated and sedated) HEENT: Atraumatic, PERRLA Lungs: Clear to auscultation, Normal air movement, Other (Mechanical ventilation) Cardiovascular: Regular rate, Normal S1, Normal S2 Abdomen: Other (Abdomen with new ileostomy, EVARISTO drain to both right and left lower quadrant. 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 and proximal muscles) Skin: Dry, Intact, Other (Surgical incision dry and intact) Psych/Mental Status: Mental status NL, Mood NL Medications Current Medications Medications Dose Ordered Sig/Nora Route Start Time Stop Time Status Last Admin Dose Admin Ondansetron HCl 4 mg Q4HP PRN IV 05/07/24 16:30 05/16/24 05:55 4 MG Morphine Sulfate 2 mg Q4HPRN PRN IV 05/15/24 17:45 05/16/24 05:56 2 MG Fentanyl Citrate 250 ml @ 2.5 mls/hr Q24H IV 05/16/24 14:00 05/25/24 03:55 27.5 MLS/HR Midazolam HCl 50 ml @ 1 mls/hr Q24H IV 05/16/24 21:00 05/25/24 03:54 12 MLS/HR Phenylephrine HCl 250 ml @ 30 mls/hr Q8H20M IV 05/16/24 21:15 05/17/24 06:03 30 MLS/HR Acetaminophen 650 mg Q6HPRN PRN LA 05/16/24 22:30 05/16/24 22:30 650 MG Pantoprazole Sodium 40 mg DAILY IV 05/17/24 10:00 05/24/24 09:36 40 MG Amino Acids 0 ml @ 0 mls/hr PER PHARMACY IV 05/17/24 08:30 Meropenem 50 ml @ 17 mls/hr Q8HR IV 05/18/24 14:00 05/25/24 05:40 17 MLS/HR Vancomycin HCl 0 ml @ 0 mls/hr UD IV 05/18/24 07:45 Metoprolol Tartrate 1.25 mg Q6HPRN PRN IV 05/18/24 16:00 05/18/24 16:17 1.25 MG Norepinephrine Bitartrate 32 mg/ Sodium Chloride 250 ml @ 0.938 mls/ hr Q24H IV 05/18/24 16:00 05/21/24 18:38 4.688 MLS/HR Amiodarone HCl 250 ml @ 16.667 mls/ hr Q15H IV 05/18/24 22:30 05/20/24 20:59 16.667 MLS/HR Potassium Chloride 100 ml @ 50 mls/hr Q2H IV 05/22/24 12:30 05/22/24 16:29 Cancel Furosemide 40 mg DAILY IV 05/23/24 10:00 05/24/24 09:36 40 MG Micafungin Sodium 100 mg/Sodium Chloride 100 ml @ 100 mls/hr DAILY IV 05/23/24 10:00 05/24/24 09:47 100 MLS/HR Vancomycin HCl 200 ml @ 200 mls/hr DAILY@1500 IV 05/24/24 15:00 05/24/24 16:07 200 MLS/HR Heparin Sodium/ Dextrose 250 ml @ 16 mls/hr [id number] IV 05/24/24 08:45 Diagnostic Test (Pha) 1 strip Q6HR 05/24/24 12:00 05/25/24 05:42 1 STRIP Insulin Human Regular FOLLOW SLIDING SCALE Q6HR SC 05/24/24 12:00 05/25/24 05:52 4 UNITS Dextrose 50 ml UD IV 05/24/24 12:00 Fat Emulsion Intravenous 100 ml/Sodium Chloride 70 meq/ Sodium Phosphate 20 meq/Potassium Chloride 40 meq/ Calcium Gluconate 2.3 meq/Magnesium Sulfate 12 meq/ Multivitamins 10 ml/Insulin Human Regular 16 units/ Amino Acids/ Dextrose/Purified Water 1,360.61 ml @ 57 mls/hr [id number] IV 05/24/24 20:00 05/25/24 19:59 05/24/24 20:14 57 MLS/HR Laboratory Results Laboratory Tests 05/25/24 03:15 Chemistry Test 05/24/24 21:35 05/25/24 03:15 Albumin 2.4 g/dL (3.2-4.8) L 2.3 g/dL (3.2-4.8) L Calcium Level 7.3 mg/dL (8.7-10.4) L 7.3 mg/dL (8.7-10.4) L Magnesium Level 2.0 mg/dL (1.6-2.6) 2.1 mg/dL (1.6-2.6) Phosphorus Level 4.8 mg/dL (2.4-5.1) 5.1 mg/dL (2.4-5.1) Total Protein 5.0 g/dL (5.7-8.2) L 4.7 g/dL (5.7-8.2) L Coagulation Test 05/25/24 03:15 Prothrombin Time 11.4 sec (9.3-11.8) Prothrombin Time INR 1.08 (0.9-1.15) Activated Partial Thromboplast Time 31.1 SEC (24.5-34.5) LFT Test 05/24/24 21:35 05/25/24 03:15 Alanine Aminotransferase (ALT) 24 U/L (7-40) 19 U/L (7-40) Alkaline Phosphatase 129 U/L (46-116) H 104 U/L (46-116) Aspartate Amino Transferase (AST) 25 U/L (13-40) 19 U/L (13-40) Total Bilirubin 3.1 mg/dL (0.2-1.0) H 2.7 mg/dL (0.2-1.0) H Urinalysis Test 05/11/24 16:18 Urine Color Yellow (Yellow) Urine Clarity Clear (Clear) Urine pH 6.0 (5.0-9.0) Urine Specific [place] 1.020 (1.001-1.035) Urine Protein 1+ (Negative) H Urine Ketones 4+ (Negative) H Urine Blood Trace /uL (Negative) H Urine Nitrite Negative (Negative) Urine Bilirubin Negative (Negative) Urine Urobilinogen Normal mg/dL (Negative) Urine Leukocyte Esterase Negative /uL (Negative) Urine RBC 2 /hpf (0 - 4) Urine WBC 2 /hpf (0 - 5) Urine Squamous Epithelial Cells Few /hpf (<5) Urine Bacteria None seen /hpf (None Seen) Urine Mucus Few (None Seen) Urine Glucose Normal mg/dL (Normal) Blood Gas Results Test 05/24/24 08:12 05/25/24 06:51 Arterial Blood pH 7.509 (7.350-7.450) 7.412 (7.350-7.450) FiO2 % 30.0 30.0 Microbiology Microbiology Date/Time Source Procedure Growth Status 05/22/24 12:00 Abdomen Gram Stain - Final Resulted 05/22/24 12:00 Abdomen Wound Culture - Preliminary Resulted 05/17/24 01:52 Urine - [place] Urine Culture - Final Yeast, not Shawanda albicans Complete 05/16/24 22:55 Blood Blood Culture - Final NO GROWTH AFTER 5 DAYS OF INCUBATION. Complete 05/16/24 14:20 Sputum Gram Stain - Final Complete 05/16/24 14:20 Respiratory Culture - Final Yeast, not Shawanda albicans Complete Labs and/or images reviewed: Labs reviewed by me, Image(s) reviewed by me Assessment/Plan Assessment/Plan Impression: Abdominal pain due to recent robotic surgery hysterectomy and salpingo- oophorectomy History of breast cancer with bilateral mastectomies History of bowel surgery and ileostomy which Anemia due to blood loss and dilution Hypotension Chronic pain syndrome, patient takes opiates at home Hypokalemia Hypomagnesemia Anemia Afib with RVR Bowel perforation with repeat exploratory laparotomy with ileostomy creation Plan: Events: Patient back to OR yesterday evening for bowel perforation. Exploratory laparotomy performed with creation of ileostomy. -potassium replacement per pharmacy -reconsider restarting heparin drip tomorrow -norepinephrine drip to keep systolic blood pressure greater than 110 mmHg -start maintenance IV fluid -TPN with electrolyte replacement per pharmacy -antimicrobial therapy to vancomycin and meropenem, micafungin -NG tube to low intermittent suction -ventilator settings AC 16, tidal volume 450, peep 5, FiO2 35% -PUD, DVT prophylaxis -repeat labs, chest x-ray, ABG in a.m. Critical care time spent with patient discussing and formulating plan of care: 40 minutes. This does not include time spent performing procedures. This medical document was created using an electronic medical record system with [employer] dictation system. Although this document has been carefully reviewed, there may still be some phonetic and typographical errors. These areas are purely typographical due to imperfections of the software programs, and do not reflect any compromise in the patient's medical care. Plan discussed with: Patient, Other (RN) My Orders Orders - ODIN MIRANDA NP Procedure Category Date Status Time Heparin Drip/D5w PHA 05/24/24 In Process 100units/Ml 08:45 Ct Ab Pel With Oral CT 05/24/24 Logged Con Only 10:50 Glucose Blood PHA 05/24/24 In Process (Accu-Chek Comfort 12:00 Insulin R (Human) PHA 05/24/24 In Process (Insulin R) 12:00 Dextrose 50% Syringe PHA 05/24/24 In Process 12:00 Amino Acid PHA 05/24/24 In Process Infusion... W/Fat 20:00 Tpn Per Pharmacy MARY BETH 05/24/24 In Process 20:00 Abg W/ Co-Ox RT 05/25/24 Logged 05:52 Date of Service: May 25, 2024 Billing Provider: ODIN MIRANDA NP Common Visit Codes: [id number] CARE 30-74 MIN ODIN MIRANDA NP May 25, 2024 07:13
[2024-05-25] MEDS: LACTATED RINGER'S 1,000 ML IV SCH (07:54)
--- NOTE | 2024-05-25 12:54 | DVHPN2 ---
Progress Note Date Seen: May 25, 2024 Has the PT tested + for MRSA If YES, has PT been informed?: No Medical Necessity Reason Pt with a Central, PICC or Fol: No Objective vital signs Vital Sign Date Time Temp Pulse Resp B/P (MAP) Pulse Ox O2 Delivery O2 Flow Rate FiO2 05/25/24 12:30 99.7 103 20 137/45 (75) 100 211.5 128/54 (78) 05/25/24 12:00 30 05/25/24 10:00 Mechanical Ventilator+ Total Intake and Output 05/24/24 05/24/24 05/25/24 15:00 23:00 07:00 Intake Total 709.5 ml 758.188 ml 1579.938 ml Output Total 2330 ml 850 ml Balance 709.5 ml -1571.812 ml 729.938 ml medications Current Medications Medications Dose Ordered Sig/Nora Route Start Time Stop Time Status Last Admin Dose Admin Ondansetron HCl 4 mg Q4HP PRN IV 05/07/24 16:30 05/16/24 05:55 4 MG Morphine Sulfate 2 mg Q4HPRN PRN IV 05/15/24 17:45 05/16/24 05:56 2 MG Fentanyl Citrate 250 ml @ 2.5 mls/hr Q24H IV 05/16/24 14:00 05/25/24 12:27 30 MLS/HR Midazolam HCl 50 ml @ 1 mls/hr Q24H IV 05/16/24 21:00 05/25/24 10:55 14 MLS/HR Phenylephrine HCl 250 ml @ 30 mls/hr Q8H20M IV 05/16/24 21:15 05/17/24 06:03 30 MLS/HR Acetaminophen 650 mg Q6HPRN PRN MT 05/16/24 22:30 05/16/24 22:30 650 MG Pantoprazole Sodium 40 mg DAILY IV 05/17/24 10:00 05/25/24 09:46 40 MG Amino Acids 0 ml @ 0 mls/hr PER PHARMACY IV 05/17/24 08:30 Meropenem 50 ml @ 17 mls/hr Q8HR IV 05/18/24 14:00 05/25/24 05:40 17 MLS/HR Vancomycin HCl 0 ml @ 0 mls/hr UD IV 05/18/24 07:45 Metoprolol Tartrate 1.25 mg Q6HPRN PRN IV 05/18/24 16:00 05/18/24 16:17 1.25 MG Norepinephrine Bitartrate 32 mg/ Sodium Chloride 250 ml @ 0.938 mls/ hr Q24H IV 05/18/24 16:00 05/21/24 18:38 4.688 MLS/HR Amiodarone HCl 250 ml @ 16.667 mls/ hr Q15H IV 05/18/24 22:30 05/20/24 20:59 16.667 MLS/HR Potassium Chloride 100 ml @ 50 mls/hr Q2H IV 05/22/24 12:30 05/22/24 16:29 Cancel Micafungin Sodium 100 mg/Sodium Chloride 100 ml @ 100 mls/hr DAILY IV 05/23/24 10:00 05/25/24 09:47 100 MLS/HR Diagnostic Test (Pha) 1 strip Q6HR 05/24/24 12:00 05/25/24 11:43 1 STRIP Insulin Human Regular FOLLOW SLIDING SCALE Q6HR SC 05/24/24 12:00 05/25/24 11:50 4 UNITS Dextrose 50 ml UD IV 05/24/24 12:00 Fat Emulsion Intravenous 100 ml/Sodium Chloride 70 meq/ Sodium Phosphate 20 meq/Potassium Chloride 40 meq/ Calcium Gluconate 2.3 meq/Magnesium Sulfate 12 meq/ Multivitamins 10 ml/Insulin Human Regular 16 units/ Amino Acids/ Dextrose/Purified Water 1,360.61 ml @ 57 mls/hr [id number] IV 05/24/24 20:00 05/25/24 19:59 05/24/24 20:14 57 MLS/HR Lactated Ringer's 1,000 ml @ 75 mls/hr [id number] IV 05/25/24 07:15 05/25/24 07:54 75 MLS/HR Fat Emulsion Intravenous 100 ml/Sodium Acetate 40 meq/Potassium Acetate 20 meq/ Calcium Gluconate 4.65 meq/ Magnesium Sulfate 16 meq/ Multivitamins 10 ml/Insulin Human Regular 18 units/ Amino Acids/ Dextrose/Purified Water 1,354.18 ml @ 56 mls/hr [id number] IV 05/25/24 20:00 05/26/24 19:59 Vancomycin HCl 250 ml @ 250 mls/hr DAILY@1500 IV 05/25/24 15:00 laboratory and microbiology Laboratory Tests 05/25/24 03:15 Test 05/25/24 03:15 Range/Units Serum Glucose 197 H 74-106 mg/dL Microbiology Date/Time Source Procedure Growth Status 05/22/24 12:00 Abdomen Gram Stain - Final Resulted 05/22/24 12:00 Abdomen Wound Culture - Preliminary Resulted 05/17/24 01:52 Urine - [place] Urine Culture - Final Yeast, not Shawanda albicans Complete 05/16/24 22:55 Blood Blood Culture - Final NO GROWTH AFTER 5 DAYS OF INCUBATION. 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 WEANING OFF WBC WNL ABD SOFT DRAIN IN PLACE SEROSANGUINEOUS RIGHT 50CC LESS PURULENT, LEFT 40 CC SEROSANGUINEOUS DRESSING DRY CONDITION GUARDED ILEOSTOMY VIABLE AND FUNCTIONAL FAMILY UPDATED NURSE AT BEDSIDE CONTINUE SUPPORTIVE CARE Plan discussed with: Patient My Orders My Orders Orders - SHEY COVARRUBIAS MD Procedure Category Date Status Time Obtain Consent For: ORDERS 05/24/24 Transmitted 14:20 Obtain Consent For MARY BETH 05/24/24 In Process Anesthesia 14:20 Frozen Plasma BBK 05/24/24 Logged 14:29 Gram Stain MIROSLAVA 05/24/24 Logged 17:06 Anaerobic Culture MIROSLAVA 05/24/24 Logged 17:06 Routine Bacterial MIROSLAVA 05/24/24 Logged Culture 17:06 Dietary Evaluation Review Comments: 1) Advance pt diet when medically feasible to a 2gmNa diet modified per AUDIOVISUAL TECHNICIAN recommendations 2) Continue current plan of care Expected Outcomes/Goals: 1) Pt diet to advance 2) F/U in 2-3 days SHEY COVARRUBIAS MD May 25, 2024 12:54
[2024-05-25] MEDS: VANCOMYCIN 1GM/250ML KIT 250 ML IV SCH (15:00)
[2024-05-25] MEDS ORDERED: VANCOMYCIN 1GM/250ML KIT 250 ML IV SCH (15:00)
--- NOTE | 2024-05-25 17:36 | DVHPN2 ---
Progress Note - Dictate Date Seen: May 25, 2024 Has the PT tested + for MRSA If YES, has PT been informed?: No Medical Necessity Reason Pt with a Central, PICC or Fol: No Subjective Ms. Barrera is a 68 years old right-handed female with a history of hypertension, anemia, breast cancer, she was admitted to the [facility] on 05/07/2024 for scheduled hysterectomy and oophorectomy. Post surgically, she woke up with left-sided weakness, and MRI showed multiple stroke in the right MCA territory. During the hospital stay, she developed fall perforation, and she went through abdominal surgery on 05/16/2024 Because of ongoing intraperitoneal sepsis/peritonitis, the patient went through exploratory laparotomy on 05/24/2024 I have seen and examined the patient in the ICU, I have discussed with her nurse. She was not doing well, because ongoing intraperitoneal sepsis/peritonitis, the patient had another surgery on 05/24/2024 She was intubated, sedated, only slight responds to stroke painful stimuli. Versed 14 mg/hour, fentanyl 300 mcg/minutes, levo 4 mcg/minute CBC, 05/16/2024: Metabolic acidosis, 05/17/2024: Metabolic acidosis, 05/18/2024: Metabolic acidosis URINALYSIS, 05/11/2024: WBC: 2, URINE LEUKOCYTE ESTERASE: NEGATIVE WBC/HB/PLT/MCV, 05/04: 5.1/10.7/119/98.3, 05/17/2024: 20.4/8.5/205/86.9 05/19/2024: 12.2/11.1/125/86.2, 05/20/2024: 8.1/10.5/113/86.1, 05/21/2024: 6.6/10.5/106/86.5 PT/INR/FTT, 05/16/2024: 17.4/1.71/34.2 K, 05/09/2024: 3.9, 05/10/24:3.1, 05/12/2024: 3.4, 05/16/2024: 2.8 Lactic acid, 05/15/2024: 1.6, 05/16/2024: 1.5 HCO3, 05/23/2024: 35 Bun.Cr, 05/23/2024: 37/0.75 LIVER FUNCTION TESTS, 05/12/2024: UNREMARKABLE, 05/16/2024: Unremarkable TBI/AST/ALT/AP, 05/18/2024: 1.2/8/9/47, 05/19/2024: 3.1/04/23/2067, 05/23/2024: 3.1/48/35/170 TG/HDL/LDL/HDL, 05/12/2024: 196/134/75/23 TSH, 05/12/2024: 2.01 Echocardiogram 05/14/2024: lvef 65% by visual estimate mild mitral regurg RV enlarged mild left atrium enlarged mild Carotid Doppler, 05/11/2024: 1. Occlusion of the right proximal ICA. 2. Greater than 50% stenosis of the right proximal ECA. 3. Greater than 50% stenosis of the left proximal ICA CT head, 05/11/2024: 1. Chronic lacunar infarct in right centrum semiovale. 2. Chronic periventricular ischemic changes. 3. Cerebral and cerebellar atrophy, likely age-related. 4. Advised further evaluation with MRI brain without contrast if clinically indicated CT abdomen/pelvis, 05/15/2024: Small bowel obstruction with evidence of perforation including free intraperitoneal fluid and air. Extensive subcutaneous emphysema likely secondary to bowel perforation CT abdomen/pelvis, 05/16/2024: 1. Sequelae of recent postsurgical changes as described above. Correlate with surgical history. 2. Pneumoperitoneum and free fluid in the abdomen and pelvis. 3. Large collection containing fluid and gas, predominantly in the right hemiabdomen. There is GI contrast extending into this collection from an adjacent small bowel loop. There is a component of this collection extending adjacent to the anterior superior aspect of the liver. 4. Moderate right hydronephrosis and hydroureter. The distal right ureter appears to be compressed by the large fluid collection in the right hemiabdomen. No obstructing calculus. 5. Dilated small bowel loops in the left hemiabdomen with suspected small-bowel obstruction. 6. Prominent subcutaneous edema in the ventral abdominal wall and extending caudally into the inguinal regions bilaterally, peroneal region, and anterior aspect of the left thigh. 7. Small bilateral pleural effusions with overlying atelectasis. 8. Additional findings as detailed above. CT abdomen, 05/23/2024: Postsurgical changes of the ventral abdomen with interval improvement in the diffuse soft tissue edema and ventral abdominal, pelvis and upper thigh subcutaneous emphysema. Interval significant decrease in size of the loculated collection within the right hemiabdomen and pelvis with small residual. Interval placement of drainage catheters terminating over the left upper abdominal quadrant and left hemipelvis as detailed above. Interval development of small to moderate ascites. Wall thickening of fluid-filled nondistended small bowel loops of the anterior mid to lower abdomen which may be from the surrounding ascites versus enteritis. Additional findings as above. CTA neck, head, 05/14/24: 1. Complete occlusion of the right cervical internal carotid artery. There may be trickle flow in distal right cervical ICA. 2. Poor flow in the right intracranial ICA likely retrograde perfusion through the contralateral left side posterior circulation through the communicating arteries. 3. High-grade stenosis at the left carotid bulb with at least 70-80% stenosis. Moderate short-segment stenosis in the left proximal ICA with at least 60% stenosis. MRI HEAD, 05/11/2024: 1. Multiple foci of restricted diffusion in the right centrum semiovale and along the right superior frontal lobe compatible with acute to subacute infarcts. There is no evidence of acute hemorrhage or significant surrounding edema. 2. Absence of flow void in the intracranial portions of the right internal carotid artery which is likely occluded. vital signs Vital Sign Date Time Temp Pulse Resp B/P (MAP) Pulse Ox O2 Delivery O2 Flow Rate FiO2 05/25/24 16:01 99.1 92 22 126/53 (77) 99 210.4 135/49 (77) 05/25/24 16:00 30 05/25/24 16:00 Mechanical Ventilator+ Total Intake and Output 05/24/24 05/24/24 05/25/24 15:00 23:00 07:00 Intake Total 709.5 ml 758.188 ml 1579.938 ml Output Total 2330 ml 850 ml Balance 709.5 ml -1571.812 ml 729.938 ml medications Current Medications Medications Dose Ordered Sig/Nora Route Start Time Stop Time Status Last Admin Dose Admin Ondansetron HCl 4 mg Q4HP PRN IV 05/07/24 16:30 05/16/24 05:55 4 MG Morphine Sulfate 2 mg Q4HPRN PRN IV 05/15/24 17:45 05/16/24 05:56 2 MG Fentanyl Citrate 250 ml @ 2.5 mls/hr Q24H IV 05/16/24 14:00 05/25/24 12:27 30 MLS/HR Midazolam HCl 50 ml @ 1 mls/hr Q24H IV 05/16/24 21:00 05/25/24 14:14 14 MLS/HR Phenylephrine HCl 250 ml @ 30 mls/hr Q8H20M IV 05/16/24 21:15 05/17/24 06:03 30 MLS/HR Acetaminophen 650 mg Q6HPRN PRN CA 05/16/24 22:30 05/16/24 22:30 650 MG Pantoprazole Sodium 40 mg DAILY IV 05/17/24 10:00 05/25/24 09:46 40 MG Amino Acids 0 ml @ 0 mls/hr PER PHARMACY IV 05/17/24 08:30 Meropenem 50 ml @ 17 mls/hr Q8HR IV 05/18/24 14:00 05/25/24 13:45 17 MLS/HR Vancomycin HCl 0 ml @ 0 mls/hr UD IV 05/18/24 07:45 Metoprolol Tartrate 1.25 mg Q6HPRN PRN IV 05/18/24 16:00 05/18/24 16:17 1.25 MG Norepinephrine Bitartrate 32 mg/ Sodium Chloride 250 ml @ 0.938 mls/ hr Q24H IV 05/18/24 16:00 05/21/24 18:38 4.688 MLS/HR Amiodarone HCl 250 ml @ 16.667 mls/ hr Q15H IV 05/18/24 22:30 05/20/24 20:59 16.667 MLS/HR Potassium Chloride 100 ml @ 50 mls/hr Q2H IV 05/22/24 12:30 05/22/24 16:29 Cancel Micafungin Sodium 100 mg/Sodium Chloride 100 ml @ 100 mls/hr DAILY IV 05/23/24 10:00 05/25/24 09:47 100 MLS/HR Diagnostic Test (Pha) 1 strip Q6HR 05/24/24 12:00 05/25/24 11:43 1 STRIP Insulin Human Regular FOLLOW SLIDING SCALE Q6HR SC 05/24/24 12:00 05/25/24 11:50 4 UNITS Dextrose 50 ml UD IV 05/24/24 12:00 Fat Emulsion Intravenous 100 ml/Sodium Chloride 70 meq/ Sodium Phosphate 20 meq/Potassium Chloride 40 meq/ Calcium Gluconate 2.3 meq/Magnesium Sulfate 12 meq/ Multivitamins 10 ml/Insulin Human Regular 16 units/ Amino Acids/ Dextrose/Purified Water 1,360.61 ml @ 57 mls/hr [id number] IV 05/24/24 20:00 05/25/24 19:59 05/24/24 20:14 57 MLS/HR Lactated Ringer's 1,000 ml @ 75 mls/hr [id number] IV 05/25/24 07:15 05/25/24 07:54 75 MLS/HR Fat Emulsion Intravenous 100 ml/Sodium Acetate 40 meq/Potassium Acetate 20 meq/ Calcium Gluconate 4.65 meq/ Magnesium Sulfate 16 meq/ Multivitamins 10 ml/Insulin Human Regular 18 units/ Amino Acids/ Dextrose/Purified Water 1,354.18 ml @ 56 mls/hr [id number] IV 05/25/24 20:00 05/26/24 19:59 Vancomycin HCl 250 ml @ 250 mls/hr DAILY@1500 IV 05/25/24 15:00 05/25/24 15:00 250 MLS/HR objective General: the patient is well developed and nourished. No acute distress. ABDOMEN: Status post surgery MENTAL STATUS: Subjective. CRANIAL NERVES: Pupils are equal, round and reactivel. There are corneal reflexes and doll's eyes phenomenon. No signs of facial weakness. There are weak gagging or coughing reflexes SENSATION: No responses to pain stimuli. MOTOR: Normal tone in the upper and lower extremity. Normal muscle bulk. No fasciculations. No spontaneous movement. REFLEXES: Deep tendon reflexes are symmetrical. No pathological reflexes. CEREBELLAR/COORDINATION: Deferred GAIT/STATION: deferred. laboratory and microbiology Laboratory Tests 05/25/24 03:15 Test 05/25/24 03:15 Range/Units Serum Glucose 197 H 74-106 mg/dL Problem List Pelvic prolapse, can count urethrovesical junction, surgery repair on 05/07/2024 (Robotic supracervical hysterectomy bilateral salpingo-oophorectomy colposcopic pexy cystocele repair urethral sling partial vaginectomy) Bowel obstruction with perforation, intra-abdominal abscess, dense at [place], status post surgery 05/16/2024 Sepsis/septic shock Metabolic encephalopathy Acute right MCA territory multiple strokes Left hemiparesis Right ICA occlusion Left ICA severe stenosis Anemia Status post oophorectomy, hysterectomy Assessment/Plan Monitoring Supportive treatment ICU care Stabilize vitals/pressor drip Respiratory support/vent management IV antibiotics Oxygen Hold off Aspirin 81 mg q.d. Hold off Plavix 75 mg daily for 21 days Lipitor 20 mg daily (NPO) TPN Up to chair Physical therapy Further address bilateral carotid stenosis CLARA on discharge Surgery on case More recommendation per clinical course This medical document was created using an electronic medical record system with [employer] dictation system. Although this document has been carefully reviewed, there may still be some phonetic and typographical errors. These areas are purely typographical due to imperfections of the software programs, and do not reflect any compromise in the patient's medical care Prognosis guarded Dietary Evaluation Review Comments: 1) Advance pt diet when medically feasible to a 2gmNa diet modified per NATURALIZATION EXAMINER recommendations 2) Continue current plan of care Expected Outcomes/Goals: 1) Pt diet to advance 2) F/U in 2-3 days Plan discussed with: Other Critical Care Time(min): 35 BRYAN FLORES MD May 25, 2024 17:36
[2024-05-25] MEDS: TPN PER PHARMACY IV NR (20:03)
[2024-05-26] VITALS (108 sets, daily range): BP systolic 83–185; BP diastolic 26–101; PULSE 76–104; RESP 9–28; TEMP 98.4–100; O2SAT 94–100
[2024-05-26 05:01] LABS: Hematocrit 28.8 % (36.0-46.0); Hemoglobin 9.2 g/dL (12.2-16.2); Mean Corpuscular Volume 93.8 fL (80.0-100.0); Platelet Count (auto) 184 10^3/uL (140-450); Red Blood Cells 3.07 10^6/uL (4.0-5.20); Red Cell Distribution Width 16.4 % (11.8-14.3); White Blood Cell 9.6 10^3/uL (4.4-10.8)
[2024-05-26 05:14] LABS: Basophils % (manual) 0 (0.0-2.0); Blast Cells 0; Promyelocytes % 0; Reactive Lymphocytes 0
[2024-05-26 05:22] LABS: Alanine Aminotransferase 17 U/L (7-40); Albumin 2.4 g/dL (3.2-4.8); Alkaline Phosphatase 85 U/L (46-116); Anion Gap 6 (5-15); Aspartate Aminotransferase 20 U/L (13-40); BUN/Creatinine Ratio 63.8 (10.0-20.0); Bilirubin, Total 2.6 mg/dL (0.2-1.0); Calcium 8.3 mg/dL (8.7-10.4); Carbon Dioxide 24 mmol/L (20-31); Chloride 110 mmol/L (98-107); Glucose 130 mg/dL (74-106); Magnesium 2.3 mg/dL (1.6-2.6); Phosphorus 3.4 mg/dL (2.4-5.1); Sodium 140 mmol/L (136-145); Total Protein 5.2 g/dL (5.7-8.2)
[2024-05-26 05:29] LABS: Blood Urea Nitrogen 37 mg/dL (9-23)
--- NOTE | 2024-05-26 06:35 | DVH ---
CHEST RADIOGRAPH Indication:chf, device placement Technique: Single frontal view of the chest was obtained Comparison: XY CHEST PORTABLE on DOS: 05/24/24, XY CHEST XRAY 1 VIEW on DOS: 05/23/24, XY CHEST PORTAB LE on DOS: 05/23/24, XY CHEST PORTABLE on DOS: 05/22/24, XY CHEST PORTABLE on DOS: 05/21/24, XY CHEST PO RTABLE on DOS: 05/24/24 FINDINGS: Lines and Tubes: The endotracheal tube terminates 4.9 cm above the joaquin. The enteric tube courses b elow the left hemidiaphragm and the tip extends outside the field of view. Right infusion catheter an d right central venous catheter are similar to prior study terminating in the superior vena cava. Lungs: Stable pulmonary congestion. Right basilar airspace disease is unchanged. Pleura: No effusion. No pneumothorax. Cardiomediastinal contours: Unremarkable Bones: No acute osseous abnormality. IMPRESSION: 1. No significant interval change.
[2024-05-26 06:40] LABS: Band Neutrophils % (manual) 8; Eosinophils % (manual) 1 (0-7); Lymphocytes % (manual) 7 (10.0-50.0); Metamyelocytes % 1; Monocytes % (manual) 10 (0-12); Myelocytes % 2; Platelet Estimate Adequate
--- NOTE | 2024-05-26 08:29 | DVHPN2 ---
Subjective Patient chemically sedated Reviewed: Care Plan, H&P, Labs, Medications, Previous Orders, Radiology Changes from previous H/P or p: No Changes General: Per HPI Eyes: No Pain, No Vision change, No Conjunctivae inflammation, No Eyelid inflammation, No Other, No Redness ENT: No Ear pain, No Ear discharge, No Nose pain, No Nose discharge, No Nose congestion, No Mouth pain, No Mouth swelling, No Throat pain, No Throat swelling, No Other Cardiovascular: No Chest Pain, No Palpitations, No Orthopnea, No Paroxysmal Noc. Dyspnea, No Edema, No Lt Headedness, No Other Respiratory: No Cough, No Dry, No Shortness of breath, No SOB with excertion, No Wheezing, No Hemoptysis, No Pleuritic Pain, No Sputum, No Other Gastrointestinal: Nausea Genitourinary: No Dysuria, No Frequency, No Incontinence, No Hematuria, No Retention, No Other Musculoskeletal: No other, No neck pain, No shoulder pain, No arm pain, No back pain, No hand pain, No leg pain, No foot pain Skin: No Rash, No Lesions, No Jaundice, No Bruising, No Other Objective Vitals Vital Signs Date Time Temp Pulse Resp B/P (MAP) Pulse Ox O2 Delivery O2 Flow Rate FiO2 05/26/24 08:04 101/43 05/26/24 06:45 99.9 91 12 100 211.8 05/26/24 06:09 30 05/26/24 06:00 Mechanical Ventilator+ Intake/Output Intake and Output 05/26/24 07:00 Intake Total 4450.133 ml Output Total 2673 ml Balance 1777.133 ml IV Total 4450.133 ml Output Urine Total 1800 ml Gastric Drainage Total 200 ml Drainage Total 580 ml Other 93 ml General Appearance: moderate distress, Other (Intubated and sedated) HEENT: Atraumatic, PERRLA Lungs: Clear to auscultation, Normal air movement, Other (Mechanical ventilation) Cardiovascular: Regular rate, Normal S1, Normal S2 Abdomen: Other (Ileostomy with drainage. EVARISTO to right lower quadrant with thick serosanguineous secretions.) Musculoskeletal: Other (Unable to assess) Extremities: No edema, Other (Poor cap refill to left lower extremity with some cyanosis noted) Neuro: Other (Left arm weakness including inspector and hand packager and proximal muscles) Skin: Dry, Intact, Other (Surgical incision dry and intact) Psych/Mental Status: Mental status NL, Mood NL Medications Current Medications Medications Dose Ordered Sig/Nora Route Start Time Stop Time Status Last Admin Dose Admin Ondansetron HCl 4 mg Q4HP PRN IV 05/07/24 16:30 05/16/24 05:55 4 MG Morphine Sulfate 2 mg Q4HPRN PRN IV 05/15/24 17:45 05/16/24 05:56 2 MG Fentanyl Citrate 250 ml @ 2.5 mls/hr Q24H IV 05/16/24 14:00 05/26/24 05:00 30 MLS/HR Midazolam HCl 50 ml @ 1 mls/hr Q24H IV 05/16/24 21:00 05/26/24 08:04 14 MLS/HR Phenylephrine HCl 250 ml @ 30 mls/hr Q8H20M IV 05/16/24 21:15 05/17/24 06:03 30 MLS/HR Acetaminophen 650 mg Q6HPRN PRN NM 05/16/24 22:30 05/16/24 22:30 650 MG Pantoprazole Sodium 40 mg DAILY IV 05/17/24 10:00 05/26/24 08:23 40 MG Amino Acids 0 ml @ 0 mls/hr PER PHARMACY IV 05/17/24 08:30 Meropenem 50 ml @ 17 mls/hr Q8HR IV 05/18/24 14:00 05/25/24 21:43 17 MLS/HR Vancomycin HCl 0 ml @ 0 mls/hr UD IV 05/18/24 07:45 Metoprolol Tartrate 1.25 mg Q6HPRN PRN IV 05/18/24 16:00 05/18/24 16:17 1.25 MG Norepinephrine Bitartrate 32 mg/ Sodium Chloride 250 ml @ 0.938 mls/ hr Q24H IV 05/18/24 16:00 05/21/24 18:38 4.688 MLS/HR Amiodarone HCl 250 ml @ 16.667 mls/ hr Q15H IV 05/18/24 22:30 05/20/24 20:59 16.667 MLS/HR Potassium Chloride 100 ml @ 50 mls/hr Q2H IV 05/22/24 12:30 05/22/24 16:29 Cancel Micafungin Sodium 100 mg/Sodium Chloride 100 ml @ 100 mls/hr DAILY IV 05/23/24 10:00 05/26/24 08:23 100 MLS/HR Diagnostic Test (Pha) 1 strip Q6HR 05/24/24 12:00 05/26/24 05:24 1 STRIP Insulin Human Regular FOLLOW SLIDING SCALE Q6HR SC 05/24/24 12:00 05/25/24 23:35 2 UNITS Dextrose 50 ml UD IV 05/24/24 12:00 Lactated Ringer's 1,000 ml @ 75 mls/hr [id number] IV 05/25/24 07:15 05/25/24 21:03 75 MLS/HR Fat Emulsion Intravenous 100 ml/Sodium Acetate 40 meq/Potassium Acetate 20 meq/ Calcium Gluconate 4.65 meq/ Magnesium Sulfate 16 meq/ Multivitamins 10 ml/Insulin Human Regular 18 units/ Amino Acids/ Dextrose/Purified Water 1,354.18 ml @ 56 mls/hr [id number] IV 05/25/24 20:00 05/26/24 19:59 05/25/24 20:03 56 MLS/HR Vancomycin HCl 250 ml @ 250 mls/hr DAILY@1500 IV 05/25/24 15:00 05/25/24 15:00 250 MLS/HR Laboratory Results Laboratory Tests 05/26/24 03:49 Chemistry Test 05/26/24 03:49 Albumin 2.4 g/dL (3.2-4.8) L Calcium Level 8.3 mg/dL (8.7-10.4) L Magnesium Level 2.3 mg/dL (1.6-2.6) Phosphorus Level 3.4 mg/dL (2.4-5.1) Total Protein 5.2 g/dL (5.7-8.2) L LFT Test 05/26/24 03:49 Alanine Aminotransferase (ALT) 17 U/L (7-40) Alkaline Phosphatase 85 U/L (46-116) Aspartate Amino Transferase (AST) 20 U/L (13-40) Total Bilirubin 2.6 mg/dL (0.2-1.0) H Urinalysis Test 05/11/24 16:18 Urine Color Yellow (Yellow) Urine Clarity Clear (Clear) Urine pH 6.0 (5.0-9.0) Urine Specific [place] 1.020 (1.001-1.035) Urine Protein 1+ (Negative) H Urine Ketones 4+ (Negative) H Urine Blood Trace /uL (Negative) H Urine Nitrite Negative (Negative) Urine Bilirubin Negative (Negative) Urine Urobilinogen Normal mg/dL (Negative) Urine Leukocyte Esterase Negative /uL (Negative) Urine RBC 2 /hpf (0 - 4) Urine WBC 2 /hpf (0 - 5) Urine Squamous Epithelial Cells Few /hpf (<5) Urine Bacteria None seen /hpf (None Seen) Urine Mucus Few (None Seen) Urine Glucose Normal mg/dL (Normal) Microbiology Microbiology Date/Time Source Procedure Growth Status 05/22/24 12:00 Abdomen Gram Stain - Final Resulted 05/22/24 12:00 Abdomen Wound Culture - Preliminary Resulted 05/17/24 01:52 Urine - [place] Urine Culture - Final Yeast, not Shawanda albicans Complete 05/16/24 22:55 Blood Blood Culture - Final NO GROWTH AFTER 5 DAYS OF INCUBATION. Complete 05/16/24 14:20 Sputum Gram Stain - Final Complete 05/16/24 14:20 Respiratory Culture - Final Yeast, not Shawanda albicans Complete Labs and/or images reviewed: Labs reviewed by me, Image(s) reviewed by me Assessment/Plan Assessment/Plan Impression: Abdominal pain due to recent robotic surgery hysterectomy and salpingo- oophorectomy History of breast cancer with bilateral mastectomies History of bowel surgery and ileostomy which Anemia due to blood loss and dilution Hypotension Chronic pain syndrome, patient takes opiates at home Hypokalemia Hypomagnesemia Anemia Afib with RVR Bowel perforation with repeat exploratory laparotomy with ileostomy creation Plan: Events: Patient continues to have low-grade fever. Leukocytosis improved. Ileostomy with bilious drainage. Patient on vasopressor therapy, norepinephrine at 4 micrograms/minute. -potassium replacement per pharmacy -re-evaluate tomorrow for restarting anticoagulation. -norepinephrine drip to keep systolic blood pressure greater than 110 mmHg -continue IV fluid -TPN with electrolyte replacement per pharmacy -antimicrobial therapy to vancomycin and meropenem, micafungin -NG tube to low intermittent suction -ventilator settings AC 16, tidal volume 450, peep 5, FiO2 35% -PUD, DVT prophylaxis -repeat labs, chest x-ray, ABG in a.m. Critical care time spent with patient discussing and formulating plan of care: 40 minutes. This does not include time spent performing procedures. This medical document was created using an electronic medical record system with [employer] computerized dictation system. Although this document has been carefully reviewed, there may still be some phonetic and typographical errors. These areas are purely typographical due to imperfections of the software programs, and do not reflect any compromise in the patient's medical care. Plan discussed with: Patient, Other (RN) My Orders Orders - ODIN MIRANDA NP Procedure Category Date Status Time Amino Acid PHA 05/25/24 In Process Infusion... W/Fat 20:00 Tpn Per Pharmacy MARY BETH 05/25/24 In Process 20:00 Vancomycin 1gm/250ml PHA 05/25/24 In Process 15:00 Date of Service: May 26, 2024 Billing Provider: ODIN MIRANDA NP Common Visit Codes: 89949-[id number] CARE 30-74 MIN ODIN MIRANDA NP May 26, 2024 08:29
[2024-05-26 08:58] LABS: Base Excess -0.6 mmol/L (-2.0-3.0)
--- NOTE | 2024-05-26 15:23 | DVHPN2 ---
Progress Note Date Seen: May 26, 2024 Has the PT tested + for MRSA If YES, has PT been informed?: No Medical Necessity Reason Pt with a Central, PICC or Fol: No Objective vital signs Vital Sign Date Time Temp Pulse Resp B/P (MAP) Pulse Ox O2 Delivery O2 Flow Rate FiO2 05/26/24 14:42 116/57 05/26/24 14:09 78 20 96 30 05/26/24 12:00 99.3 210.7 05/26/24 12:00 Mechanical Ventilator+ Total Intake and Output 05/25/24 05/25/24 05/26/24 15:00 23:00 07:00 Intake Total 1576.814 ml 1578.628 ml 1472.504 ml Output Total 1353 ml 1320 ml Balance 1576.814 ml 225.628 ml 152.504 ml medications Current Medications Medications Dose Ordered Sig/Nora Route Start Time Stop Time Status Last Admin Dose Admin Ondansetron HCl 4 mg Q4HP PRN IV 05/07/24 16:30 05/16/24 05:55 4 MG Morphine Sulfate 2 mg Q4HPRN PRN IV 05/15/24 17:45 05/16/24 05:56 2 MG Fentanyl Citrate 250 ml @ 2.5 mls/hr Q24H IV 05/16/24 14:00 05/26/24 11:03 30 MLS/HR Midazolam HCl 50 ml @ 1 mls/hr Q24H IV 05/16/24 21:00 05/26/24 14:42 14 MLS/HR Phenylephrine HCl 250 ml @ 30 mls/hr Q8H20M IV 05/16/24 21:15 05/17/24 06:03 30 MLS/HR Acetaminophen 650 mg Q6HPRN PRN NH 05/16/24 22:30 05/16/24 22:30 650 MG Pantoprazole Sodium 40 mg DAILY IV 05/17/24 10:00 05/26/24 08:23 40 MG Amino Acids 0 ml @ 0 mls/hr PER PHARMACY IV 05/17/24 08:30 Meropenem 50 ml @ 17 mls/hr Q8HR IV 05/18/24 14:00 05/26/24 13:26 17 MLS/HR Vancomycin HCl 0 ml @ 0 mls/hr UD IV 05/18/24 07:45 Metoprolol Tartrate 1.25 mg Q6HPRN PRN IV 05/18/24 16:00 05/18/24 16:17 1.25 MG Norepinephrine Bitartrate 32 mg/ Sodium Chloride 250 ml @ 0.938 mls/ hr Q24H IV 05/18/24 16:00 05/21/24 18:38 4.688 MLS/HR Amiodarone HCl 250 ml @ 16.667 mls/ hr Q15H IV 05/18/24 22:30 05/20/24 20:59 16.667 MLS/HR Potassium Chloride 100 ml @ 50 mls/hr Q2H IV 05/22/24 12:30 05/22/24 16:29 Cancel Micafungin Sodium 100 mg/Sodium Chloride 100 ml @ 100 mls/hr DAILY IV 05/23/24 10:00 05/26/24 08:23 100 MLS/HR Diagnostic Test (Pha) 1 strip Q6HR 05/24/24 12:00 05/26/24 12:11 1 STRIP Insulin Human Regular FOLLOW SLIDING SCALE Q6HR SC 05/24/24 12:00 05/25/24 23:35 2 UNITS Dextrose 50 ml UD IV 05/24/24 12:00 Lactated Ringer's 1,000 ml @ 75 mls/hr [id number] IV 05/25/24 07:15 05/26/24 10:17 75 MLS/HR Fat Emulsion Intravenous 100 ml/Sodium Acetate 40 meq/Potassium Acetate 20 meq/ Calcium Gluconate 4.65 meq/ Magnesium Sulfate 16 meq/ Multivitamins 10 ml/Insulin Human Regular 18 units/ Amino Acids/ Dextrose/Purified Water 1,354.18 ml @ 56 mls/hr [id number] IV 05/25/24 20:00 05/26/24 19:59 05/25/24 20:03 56 MLS/HR Vancomycin HCl 250 ml @ 250 mls/hr DAILY@1500 IV 05/25/24 15:00 05/25/24 15:00 250 MLS/HR Fat Emulsion Intravenous 100 ml/Sodium Acetate 20 meq/Potassium Acetate 40 meq/ Potassium Phosphate 22 meq/ Calcium Gluconate 2.3 meq/Magnesium Sulfate 12 meq/ Multivitamins 10 ml/Insulin Human Regular 18 units/ Amino Acids/ Dextrose/Purified Water 1,403.1262 ml @ 58 mls/hr [id number] IV 05/26/24 20:00 05/27/24 19:59 laboratory and microbiology Laboratory Tests 05/26/24 03:49 Test 05/26/24 03:49 Range/Units Serum Glucose 130 H 74-106 mg/dL Microbiology Date/Time Source Procedure Growth Status 05/24/24 17:06 Other Gram Stain Pending Resulted 05/24/24 17:06 Other Anaerobic Culture Pending Resulted 05/24/24 17:06 Other Aerobic Culture - Preliminary Resulted 05/17/24 01:52 Urine - [place] Urine Culture - Final Yeast, not Shawanda albicans Complete 05/16/24 22:55 Blood Blood Culture - Final NO GROWTH AFTER 5 DAYS OF INCUBATION. 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 WEANING OFF WBC WNL ABD SOFT DRAIN IN PLACE SEROSANGUINEOUS RIGHT 50CC LESS PURULENT, LEFT 40 CC SEROSANGUINEOUS DRESSING DRY CONDITION GUARDED ILEOSTOMY VIABLE AND FUNCTIONAL FAMILY UPDATED NURSE AT BEDSIDE CONTINUE SUPPORTIVE CARE Plan discussed with: Other My Orders My Orders Orders - SHEY COVARRUBIAS MD Procedure Category Date Status Time Communication Order ORDERS 05/25/24 Transmitted 19:19 Dietary Evaluation Review Comments: 1) Advance pt diet when medically feasible to a 2gmNa diet modified per ARMATURE BANDER recommendations 2) Continue current plan of care Expected Outcomes/Goals: 1) Pt diet to advance 2) F/U in 2-3 days SHEY COVARRUBIAS MD May 26, 2024 15:23
--- NOTE | 2024-05-26 18:05 | DVHPN2 ---
Progress Note - Dictate Date Seen: May 26, 2024 Has the PT tested + for MRSA If YES, has PT been informed?: No Medical Necessity Reason Pt with a Central, PICC or Fol: Yes The following are medically ne: Muhammad Catheter Reason for muhammad catheter: Strict I&O Subjective Patient seen and examined at bedside. Sedated, intubated on mechanical ventilator. Overnight events reviewed. vital signs Vital Sign Date Time Temp Pulse Resp B/P (MAP) Pulse Ox O2 Delivery O2 Flow Rate FiO2 05/26/24 17:50 124/58 05/26/24 17:30 99.3 97 23 96 210.7 05/26/24 16:00 30 05/26/24 16:00 Mechanical Ventilator+ Total Intake and Output 05/25/24 05/25/24 05/26/24 15:00 23:00 07:00 Intake Total 1576.814 ml 1578.628 ml 1472.504 ml Output Total 1353 ml 1320 ml Balance 1576.814 ml 225.628 ml 152.504 ml medications Current Medications Medications Dose Ordered Sig/Nora Route Start Time Stop Time Status Last Admin Dose Admin Ondansetron HCl 4 mg Q4HP PRN IV 05/07/24 16:30 05/16/24 05:55 4 MG Morphine Sulfate 2 mg Q4HPRN PRN IV 05/15/24 17:45 05/16/24 05:56 2 MG Fentanyl Citrate 250 ml @ 2.5 mls/hr Q24H IV 05/16/24 14:00 05/26/24 11:03 30 MLS/HR Midazolam HCl 50 ml @ 1 mls/hr Q24H IV 05/16/24 21:00 05/26/24 17:50 14 MLS/HR Phenylephrine HCl 250 ml @ 30 mls/hr Q8H20M IV 05/16/24 21:15 05/17/24 06:03 30 MLS/HR Acetaminophen 650 mg Q6HPRN PRN WV 05/16/24 22:30 05/16/24 22:30 650 MG Pantoprazole Sodium 40 mg DAILY IV 05/17/24 10:00 05/26/24 08:23 40 MG Amino Acids 0 ml @ 0 mls/hr PER PHARMACY IV 05/17/24 08:30 Meropenem 50 ml @ 17 mls/hr Q8HR IV 05/18/24 14:00 05/26/24 13:26 17 MLS/HR Vancomycin HCl 0 ml @ 0 mls/hr UD IV 05/18/24 07:45 Metoprolol Tartrate 1.25 mg Q6HPRN PRN IV 05/18/24 16:00 05/18/24 16:17 1.25 MG Norepinephrine Bitartrate 32 mg/ Sodium Chloride 250 ml @ 0.938 mls/ hr Q24H IV 05/18/24 16:00 05/21/24 18:38 4.688 MLS/HR Amiodarone HCl 250 ml @ 16.667 mls/ hr Q15H IV 05/18/24 22:30 05/20/24 20:59 16.667 MLS/HR Potassium Chloride 100 ml @ 50 mls/hr Q2H IV 05/22/24 12:30 05/22/24 16:29 Cancel Micafungin Sodium 100 mg/Sodium Chloride 100 ml @ 100 mls/hr DAILY IV 05/23/24 10:00 05/26/24 08:23 100 MLS/HR Diagnostic Test (Pha) 1 strip Q6HR 05/24/24 12:00 05/26/24 17:05 1 STRIP Insulin Human Regular FOLLOW SLIDING SCALE Q6HR SC 05/24/24 12:00 05/26/24 17:05 2 UNITS Dextrose 50 ml UD IV 05/24/24 12:00 Lactated Ringer's 1,000 ml @ 75 mls/hr [id number] IV 05/25/24 07:15 05/26/24 10:17 75 MLS/HR Fat Emulsion Intravenous 100 ml/Sodium Acetate 40 meq/Potassium Acetate 20 meq/ Calcium Gluconate 4.65 meq/ Magnesium Sulfate 16 meq/ Multivitamins 10 ml/Insulin Human Regular 18 units/ Amino Acids/ Dextrose/Purified Water 1,354.18 ml @ 56 mls/hr [id number] IV 05/25/24 20:00 05/26/24 19:59 05/25/24 20:03 56 MLS/HR Vancomycin HCl 250 ml @ 250 mls/hr DAILY@1500 IV 05/25/24 15:00 05/26/24 15:00 250 MLS/HR Fat Emulsion Intravenous 100 ml/Sodium Acetate 20 meq/Potassium Acetate 40 meq/ Potassium Phosphate 22 meq/ Calcium Gluconate 2.3 meq/Magnesium Sulfate 12 meq/ Multivitamins 10 ml/Insulin Human Regular 18 units/ Amino Acids/ Dextrose/Purified Water 1,403.1262 ml @ 58 mls/hr [id number] IV 05/26/24 20:00 05/27/24 19:59 objective Gen.: Patient lying in bed in medical ICU. Sedated, intubated on mechanical ventilator. Head: Normocephalic, atraumatic. Eyes: PERRLA. Ears: Normal external anatomy. Throat: Endotracheal tube and orogastric tube in place. Neck: Supple, trachea midline. Chest: Transmitted breath sounds bilaterally. Decreased air entry bilaterally. No wheezing. Bibasilar crackles. Cardio vascular: Positive S1, positive S2. Regular rate and rhythm. Abdomen: Positive bowel sounds in all 4 quadrants. Soft, nontender, nondistended. : Muhammad in place. Normal external genitalia. Rectal: Deferred Skin: Warm, dry. Intact. Extremities: 2+ radial pulses bilaterally. No lower extremity edema. Neuro: Sedated. laboratory and microbiology Laboratory Tests 05/26/24 03:49 Test 05/26/24 03:49 Range/Units Serum Glucose 130 H 74-106 mg/dL Assessment/Plan Impression: Acute hypoxic respiratory failure On mechanical ventilator Abdominal pain due to recent robotic surgery hysterectomy and salpingo- oophorectomy History of breast cancer with bilateral mastectomies History of bowel surgery and ileostomy Anemia due to hemorrhage on hemodilution Shock Chronic pain syndrome Anemia Atrial fibrillation with RVR Bowel perforation with repeat exploratory laparotomy with ileostomy creation Plan: s/p intubation on mechanical ventilator CXR image and report reviewed. Devices in place. Pulmonary vascular congestion. Right bibasilar airspace opacities. No pleural effusion or pneumothorax. ABG reviewed. Compensated On assist control with a respiratory rate of 20, tidal volume 450, peep of Five, FiO2 of 30%. Titrate FIO2 to keep O2 saturation above 92%. VAP bundle Daily ABG and CXR while intubated. Sedate for ventilatory synchrony On pressors for hemodynamic support. On Levophed at 2 micrograms/minute Titrate to keep MAP above 65 mmHg/SBP above 90 mmHg. Continue antibiotics. F/u cultures. Monitor hemoglobin Transfuse if less than 7.0 grams/deciliter On IV fluids with lactated Ringer's at 75 mL an hour. Monitor renal function due to Acute kidney injury. Monitor electrolytes. Supplement as necessary. Surgery recommendations appreciated. Nutritional support. On TPN Accucheks, ISS. GI/DVT prophylaxis. Condition: Critical Prognosis: Poor given multiple comorbidities. Rest of plan per hospitalist and other consultants. A total of 35 minutes of critical care time was spent reviewing the patient record, examining the patient, making a diagnostic and therapeutic plan, discussing this plan with the medical personnel, following up on diagnostic studies and following the patient for clinical stability excluding any and all procedures. At least 50% of this time was spent in direct, [id number] contact. Thank you for allowing me to participate in this patient's care. Further recommendations will depend on patient's clinical course. Please do not hesitate to contact me if you have any questions or concerns. This medical document was created using an electronic medical record system with [employer] dictation system. Although this document has been carefully reviewed, there may still be some phonetic and typographical errors. These areas are purely typographical due to imperfections of the software programs, and do not reflect any compromise in the patient's medical care. Dietary Evaluation Review Comments: 1) Advance pt diet when medically feasible to a 2gmNa diet modified per [employer] T[employer]EL E[employer]IC OPERATOR recommendations 2) Continue current plan of care Expected Outcomes/Goals: 1) Pt diet to advance 2) F/U in 2-3 days Plan discussed with: Other (YASH GAGNON, RT) Critical Care Time(min): 35 RG LEONE MD May 26, 2024 18:05
[2024-05-26] MEDS: TPN PER PHARMACY IV NR (20:00)
--- NOTE | 2024-05-26 21:57 | DVHPN2 ---
Progress Note - Dictate Date Seen: May 26, 2024 Has the PT tested + for MRSA If YES, has PT been informed?: No Medical Necessity Reason Pt with a Central, PICC or Fol: Yes The following are medically ne: Muhammad Catheter Reason for muhammad catheter: Strict I&O Subjective Ms. Barrera is a 68 years old right-handed female with a history of hypertension, anemia, breast cancer, she was admitted to the [facility] on 05/07/2024 for scheduled hysterectomy and oophorectomy. Post surgically, she woke up with left-sided weakness, and MRI showed multiple stroke in the right MCA territory. During the hospital stay, she developed fall perforation, and she went through abdominal surgery on 05/16/2024 Because of ongoing intraperitoneal sepsis/peritonitis, the patient went through exploratory laparotomy on 05/24/2024 I have seen and examined the patient in the ICU, I have discussed with her nurse. She is not doing well, she was fever and is on ice pack She was intubated, sedated, but is responsive to painful stimuli Versed 14 mg/hour, fentanyl 300 mcg/minute, levo 2 mcg/minute CBC, 05/16/2024: Metabolic acidosis, 05/17/2024: Metabolic acidosis, 05/18/2024: Metabolic acidosis URINALYSIS, 05/11/2024: WBC: 2, URINE LEUKOCYTE ESTERASE: NEGATIVE WBC/HB/PLT/MCV, 05/04: 5.1/10.7/119/98.3, 05/17/2024: 20.4/8.5/205/86.9 05/19/2024: 12.2/11.1/125/86.2, 05/20/2024: 8.1/10.5/113/86.1, 05/21/2024: 6.6/10.5/106/86.5, 05/26/2024: 9.6/9.2/184/93.8 PT/INR/FTT, 05/16/2024: 17.4/1.71/34.2 K, 05/09/2024: 3.9, 05/10/24:3.1, 05/12/2024: 3.4, 05/16/2024: 2.8 Lactic acid, 05/15/2024: 1.6, 05/16/2024: 1.5 HCO3, 05/23/2024: 35 Bun.Cr, 05/23/2024: 37/0.75 LIVER FUNCTION TESTS, 05/12/2024: UNREMARKABLE, 05/16/2024: Unremarkable TBI/AST/ALT/AP, 05/18/2024: 1.2/8/9/47, 05/19/2024: 3.1/04/23/2067, 05/23/2024: 3.1/48/35/170 TG/HDL/LDL/HDL, 05/12/2024: 196/134/75/23 TSH, 05/12/2024: 2.01 Echocardiogram 05/14/2024: lvef 65% by visual estimate mild mitral regurg RV enlarged mild left atrium enlarged mild Carotid Doppler, 05/11/2024: 1. Occlusion of the right proximal ICA. 2. Greater than 50% stenosis of the right proximal ECA. 3. Greater than 50% stenosis of the left proximal ICA CT head, 05/11/2024: 1. Chronic lacunar infarct in right centrum semiovale. 2. Chronic periventricular ischemic changes. 3. Cerebral and cerebellar atrophy, likely age-related. 4. Advised further evaluation with MRI brain without contrast if clinically indicated CT abdomen/pelvis, 05/15/2024: Small bowel obstruction with evidence of perforation including free intraperitoneal fluid and air. Extensive subcutaneous emphysema likely secondary to bowel perforation CT abdomen/pelvis, 05/16/2024: 1. Sequelae of recent postsurgical changes as described above. Correlate with surgical history. 2. Pneumoperitoneum and free fluid in the abdomen and pelvis. 3. Large collection containing fluid and gas, predominantly in the right hemiabdomen. There is GI contrast extending into this collection from an adjacent small bowel loop. There is a component of this collection extending adjacent to the anterior superior aspect of the liver. 4. Moderate right hydronephrosis and hydroureter. The distal right ureter appears to be compressed by the large fluid collection in the right hemiabdomen. No obstructing calculus. 5. Dilated small bowel loops in the left hemiabdomen with suspected small-bowel obstruction. 6. Prominent subcutaneous edema in the ventral abdominal wall and extending caudally into the inguinal regions bilaterally, peroneal region, and anterior aspect of the left thigh. 7. Small bilateral pleural effusions with overlying atelectasis. 8. Additional findings as detailed above. CT abdomen, 05/23/2024: Postsurgical changes of the ventral abdomen with interval improvement in the diffuse soft tissue edema and ventral abdominal, pelvis and upper thigh subcutaneous emphysema. Interval significant decrease in size of the loculated collection within the right hemiabdomen and pelvis with small residual. Interval placement of drainage catheters terminating over the left upper abdominal quadrant and left hemipelvis as detailed above. Interval development of small to moderate ascites. Wall thickening of fluid-filled nondistended small bowel loops of the anterior mid to lower abdomen which may be from the surrounding ascites versus enteritis. Additional findings as above. CTA neck, head, 05/14/24: 1. Complete occlusion of the right cervical internal carotid artery. There may be trickle flow in distal right cervical ICA. 2. Poor flow in the right intracranial ICA likely retrograde perfusion through the contralateral left side posterior circulation through the communicating arteries. 3. High-grade stenosis at the left carotid bulb with at least 70-80% stenosis. Moderate short-segment stenosis in the left proximal ICA with at least 60% stenosis. MRI HEAD, 05/11/2024: 1. Multiple foci of restricted diffusion in the right centrum semiovale and along the right superior frontal lobe compatible with acute to subacute infarcts. There is no evidence of acute hemorrhage or significant surrounding edema. 2. Absence of flow void in the intracranial portions of the right internal carotid artery which is likely occluded. vital signs Vital Sign Date Time Temp Pulse Resp B/P (MAP) Pulse Ox O2 Delivery O2 Flow Rate FiO2 05/26/24 21:20 126/55 05/26/24 20:25 89 21 97 30 05/26/24 19:30 99.5 211.1 05/26/24 18:00 Mechanical Ventilator+ Total Intake and Output 05/25/24 05/25/24 05/26/24 15:00 23:00 07:00 Intake Total 1576.814 ml 1578.628 ml 1472.504 ml Output Total 1353 ml 1320 ml Balance 1576.814 ml 225.628 ml 152.504 ml medications Current Medications Medications Dose Ordered Sig/Nora Route Start Time Stop Time Status Last Admin Dose Admin Ondansetron HCl 4 mg Q4HP PRN IV 05/07/24 16:30 05/16/24 05:55 4 MG Morphine Sulfate 2 mg Q4HPRN PRN IV 05/15/24 17:45 05/16/24 05:56 2 MG Fentanyl Citrate 250 ml @ 2.5 mls/hr Q24H IV 05/16/24 14:00 05/26/24 21:20 30 MLS/HR Midazolam HCl 50 ml @ 1 mls/hr Q24H IV 05/16/24 21:00 05/26/24 21:20 14 MLS/HR Phenylephrine HCl 250 ml @ 30 mls/hr Q8H20M IV 05/16/24 21:15 05/17/24 06:03 30 MLS/HR Acetaminophen 650 mg Q6HPRN PRN VA 05/16/24 22:30 05/16/24 22:30 650 MG Pantoprazole Sodium 40 mg DAILY IV 05/17/24 10:00 05/26/24 08:23 40 MG Amino Acids 0 ml @ 0 mls/hr PER PHARMACY IV 05/17/24 08:30 Meropenem 50 ml @ 17 mls/hr Q8HR IV 05/18/24 14:00 05/26/24 13:26 17 MLS/HR Vancomycin HCl 0 ml @ 0 mls/hr UD IV 05/18/24 07:45 Metoprolol Tartrate 1.25 mg Q6HPRN PRN IV 05/18/24 16:00 05/18/24 16:17 1.25 MG Norepinephrine Bitartrate 32 mg/ Sodium Chloride 250 ml @ 0.938 mls/ hr Q24H IV 05/18/24 16:00 05/21/24 18:38 4.688 MLS/HR Amiodarone HCl 250 ml @ 16.667 mls/ hr Q15H IV 05/18/24 22:30 05/20/24 20:59 16.667 MLS/HR Potassium Chloride 100 ml @ 50 mls/hr Q2H IV 05/22/24 12:30 05/22/24 16:29 Cancel Micafungin Sodium 100 mg/Sodium Chloride 100 ml @ 100 mls/hr DAILY IV 05/23/24 10:00 05/26/24 08:23 100 MLS/HR Diagnostic Test (Pha) 1 strip Q6HR 05/24/24 12:00 05/26/24 17:05 1 STRIP Insulin Human Regular FOLLOW SLIDING SCALE Q6HR SC 05/24/24 12:00 05/26/24 17:05 2 UNITS Dextrose 50 ml UD IV 05/24/24 12:00 Lactated Ringer's 1,000 ml @ 75 mls/hr [id number] IV 05/25/24 07:15 05/26/24 10:17 75 MLS/HR Vancomycin HCl 250 ml @ 250 mls/hr DAILY@1500 IV 05/25/24 15:00 05/26/24 15:00 250 MLS/HR Fat Emulsion Intravenous 100 ml/Sodium Acetate 20 meq/Potassium Acetate 40 meq/ Potassium Phosphate 22 meq/ Calcium Gluconate 2.3 meq/Magnesium Sulfate 12 meq/ Multivitamins 10 ml/Insulin Human Regular 18 units/ Amino Acids/ Dextrose/Purified Water 1,403.1262 ml @ 58 mls/hr [id number] IV 05/26/24 20:00 05/27/24 19:59 05/26/24 20:00 58 MLS/HR objective General: the patient is well developed and nourished. No acute distress. ABDOMEN: Status post surgery MENTAL STATUS: Subjective. CRANIAL NERVES: Pupils are equal, round and reactivel. There are corneal reflexes and doll's eyes phenomenon. No signs of facial weakness. There are weak gagging or coughing reflexes SENSATION: No responses to pain stimuli. MOTOR: Normal tone in the upper and lower extremity. Normal muscle bulk. No fasciculations. No spontaneous movement. REFLEXES: Deep tendon reflexes are symmetrical. No pathological reflexes. CEREBELLAR/COORDINATION: Deferred GAIT/STATION: deferred. laboratory and microbiology Laboratory Tests 05/26/24 03:49 Test 05/26/24 03:49 Range/Units Serum Glucose 130 H 74-106 mg/dL Problem List Pelvic prolapse, can count urethrovesical junction, surgery repair on 05/07/2024 (Robotic supracervical hysterectomy bilateral salpingo-oophorectomy colposcopic pexy cystocele repair urethral sling partial vaginectomy) Bowel obstruction with perforation, intra-abdominal abscess, dense at [place], status post surgery 05/16/2024 Sepsis/septic shock Metabolic encephalopathy Acute right MCA territory multiple strokes Left hemiparesis Right ICA occlusion Left ICA severe stenosis Anemia Status post oophorectomy, hysterectomy Assessment/Plan Monitoring Supportive treatment ICU care Stabilize vitals/pressor drip Respiratory support/vent management IV antibiotics Oxygen Hold off Aspirin 81 mg q.d. Hold off Plavix 75 mg daily for 21 days Lipitor 20 mg daily (NPO) TPN Up to chair Physical therapy Further address bilateral carotid stenosis CLARA on discharge Surgery on case More recommendation per clinical course This medical document was created using an electronic medical record system with [employer] dictation system. Although this document has been carefully reviewed, there may still be some phonetic and typographical errors. These areas are purely typographical due to imperfections of the software programs, and do not reflect any compromise in the patient's medical care Prognosis guarded Dietary Evaluation Review Comments: 1) Advance pt diet when medically feasible to a 2gmNa diet modified per [employer]STATE INVESTMENT ANALYST recommendations 2) Continue current plan of care Expected Outcomes/Goals: 1) Pt diet to advance 2) F/U in 2-3 days Plan discussed with: Other Critical Care Time(min): 35 BRYAN FLORES MD May 26, 2024 21:57
[2024-05-27] VITALS (108 sets, daily range): BP systolic 64–249; BP diastolic 24–221; PULSE 76–114; RESP 8–27; TEMP 97.7–100.2; O2SAT 95–100
[2024-05-27 04:40] LABS: Alanine Aminotransferase 16 U/L (7-40); Albumin 2.1 g/dL (3.2-4.8); Alkaline Phosphatase 86 U/L (46-116); Anion Gap 4 (5-15); Aspartate Aminotransferase 22 U/L (13-40); BUN/Creatinine Ratio 61.5 (10.0-20.0); Bilirubin, Total 2.4 mg/dL (0.2-1.0); Blood Urea Nitrogen 32 mg/dL (9-23); Calcium 8.4 mg/dL (8.7-10.4); Carbon Dioxide 26 mmol/L (20-31); Chloride 109 mmol/L (98-107); Glucose 143 mg/dL (74-106); Phosphorus 2.8 mg/dL (2.4-5.1); Potassium 3.7 mmol/L (3.5-5.1); Sodium 139 mmol/L (136-145); Total Protein 4.6 g/dL (5.7-8.2)
--- NOTE | 2024-05-27 06:47 | DVH ---
CHEST RADIOGRAPH Indication:chf, device placement Technique: Single frontal view of the chest was obtained Comparison: XY CHEST PORTABLE on DOS: 05/26/24, XY CHEST PORTABLE on DOS: 05/24/24, XY CHEST XRAY 1 V IEW on DOS: 05/23/24, XY CHEST PORTABLE on DOS: 05/23/24, XY CHEST PORTABLE on DOS: 05/22/24, XY CHEST P ORTABLE on DOS: 05/26/24 FINDINGS: Lines and Tubes: The endotracheal tube terminates 4.9 cm above the joaquin. The enteric tube courses b elow the left hemidiaphragm and the tip extends outside the field of view. Right infusion catheter an d right central venous catheter are similar to prior study terminating in the superior vena cava. Lungs: Stable pulmonary congestion. Right basilar airspace disease is unchanged. Pleura: No effusion. No pneumothorax. Cardiomediastinal contours: Unremarkable Bones: No acute osseous abnormality. IMPRESSION: 1. No significant interval change.
[2024-05-27 09:37] LABS: Base Excess 0.5 mmol/L (-2.0-3.0)
[2024-05-27 10:59] LABS: Hematocrit 21.9 % (36.0-46.0); Hemoglobin 7.2 g/dL (12.2-16.2); Mean Corpuscular Hemoglobin 29.3 pg (28.0-32.0); Mean Corpuscular Hgb Conc. 32.7 g/dL (32.0-36.0); Mean Corpuscular Volume 89.5 fL (80.0-100.0); Platelet Count (auto) 222 10^3/uL (140-450); Red Blood Cells 2.44 10^6/uL (4.0-5.20); Red Cell Distribution Width 15.5 % (11.8-14.3)
[2024-05-27 11:01] LABS: Basophils % (manual) 0 (0.0-2.0); Blast Cells 0; Promyelocytes % 0; Reactive Lymphocytes 0
[2024-05-27 11:32] LABS: Band Neutrophils % (manual) 13; Eosinophils % (manual) 1 (0-7); Lymphocytes % (manual) 12 (10.0-50.0); Metamyelocytes % 1; Monocytes % (manual) 2 (0-12); Myelocytes % 1; Platelet Estimate Adequate
--- NOTE | 2024-05-27 13:59 | DVHPN2 ---
Progress Note - Dictate Date Seen: May 27, 2024 Has the PT tested + for MRSA If YES, has PT been informed?: No Medical Necessity Reason Pt with a Central, PICC or Fol: Yes The following are medically ne: Muhammad Catheter Reason for muhammad catheter: Strict I&O Subjective Patient seen and examined at bedside. Sedated, intubated on mechanical ventilator. Overnight events reviewed. vital signs Vital Sign Date Time Temp Pulse Resp B/P (MAP) Pulse Ox O2 Delivery O2 Flow Rate FiO2 05/27/24 13:33 101 20 106/40 (62) 100 30 05/27/24 12:00 Mechanical Ventilator+ 05/27/24 12:00 100.0 212.0 Total Intake and Output 05/26/24 05/26/24 05/27/24 15:00 23:00 07:00 Intake Total 1489.313 ml 1575.066 ml 1457.504 ml Output Total 1015 ml 1115 ml Balance 1489.313 ml 560.066 ml 342.504 ml medications Current Medications Medications Dose Ordered Sig/Nora Route Start Time Stop Time Status Last Admin Dose Admin Ondansetron HCl 4 mg Q4HP PRN IV 05/07/24 16:30 05/16/24 05:55 4 MG Morphine Sulfate 2 mg Q4HPRN PRN IV 05/15/24 17:45 05/16/24 05:56 2 MG Fentanyl Citrate 250 ml @ 2.5 mls/hr Q24H IV 05/16/24 14:00 05/27/24 13:04 30 MLS/HR Midazolam HCl 50 ml @ 1 mls/hr Q24H IV 05/16/24 21:00 05/27/24 10:36 14 MLS/HR Phenylephrine HCl 250 ml @ 30 mls/hr Q8H20M IV 05/16/24 21:15 05/17/24 06:03 30 MLS/HR Acetaminophen 650 mg Q6HPRN PRN W[place] 05/16/24 22:30 05/16/24 22:30 650 MG Pantoprazole Sodium 40 mg DAILY IV 05/17/24 10:00 05/27/24 08:07 40 MG Amino Acids 0 ml @ 0 mls/hr PER PHARMACY IV 05/17/24 08:30 Meropenem 50 ml @ 17 mls/hr Q8HR IV 05/18/24 14:00 05/27/24 13:17 17 MLS/HR Vancomycin HCl 0 ml @ 0 mls/hr UD IV 05/18/24 07:45 Metoprolol Tartrate 1.25 mg Q6HPRN PRN IV 05/18/24 16:00 05/18/24 16:17 1.25 MG Norepinephrine Bitartrate 32 mg/ Sodium Chloride 250 ml @ 0.938 mls/ hr Q24H IV 05/18/24 16:00 05/21/24 18:38 4.688 MLS/HR Amiodarone HCl 250 ml @ 16.667 mls/ hr Q15H IV 05/18/24 22:30 05/20/24 20:59 16.667 MLS/HR Potassium Chloride 100 ml @ 50 mls/hr Q2H IV 05/22/24 12:30 05/22/24 16:29 Cancel Micafungin Sodium 100 mg/Sodium Chloride 100 ml @ 100 mls/hr DAILY IV 05/23/24 10:00 05/27/24 08:07 100 MLS/HR Diagnostic Test (Pha) 1 strip Q6HR 05/24/24 12:00 05/27/24 11:43 1 STRIP Insulin Human Regular FOLLOW SLIDING SCALE Q6HR SC 05/24/24 12:00 05/27/24 11:42 2 UNITS Dextrose 50 ml UD IV 05/24/24 12:00 Lactated Ringer's 1,000 ml @ 75 mls/hr [id number] IV 05/25/24 07:15 05/27/24 13:09 75 MLS/HR Vancomycin HCl 250 ml @ 250 mls/hr DAILY@1500 IV 05/25/24 15:00 05/26/24 15:00 250 MLS/HR Fat Emulsion Intravenous 100 ml/Sodium Acetate 20 meq/Potassium Acetate 40 meq/ Potassium Phosphate 22 meq/ Calcium Gluconate 2.3 meq/Magnesium Sulfate 12 meq/ Multivitamins 10 ml/Insulin Human Regular 18 units/ Amino Acids/ Dextrose/Purified Water 1,403.1262 ml @ 58 mls/hr [id number] IV 05/26/24 20:00 05/27/24 19:59 05/26/24 20:00 58 MLS/HR Fat Emulsion Intravenous 100 ml/Sodium Phosphate 40 meq/ Potassium Acetate 20 meq/Calcium Gluconate 2.3 meq/ Magnesium Sulfate 12 meq/ Multivitamins 10 ml/Insulin Human Regular 18 units/ Amino Acids/ Dextrose/Purified Water 1,388.1262 ml @ 58 mls/hr [id number] IV 05/27/24 20:00 05/28/24 19:59 objective Gen.: Patient lying in bed in medical ICU. Sedated, intubated on mechanical ventilator. Head: Normocephalic, atraumatic. Eyes: PERRLA. Ears: Normal external anatomy. Throat: Endotracheal tube and orogastric tube in place. Neck: Supple, trachea midline. Chest: Transmitted breath sounds bilaterally. Decreased air entry bilaterally. No wheezing. Bibasilar crackles. Cardio vascular: Positive S1, positive S2. Regular rate and rhythm. Abdomen: Positive bowel sounds in all 4 quadrants. Soft, nontender, nondistended. : Muhammad in place. Normal external genitalia. Rectal: Deferred Skin: Warm, dry. Intact. Extremities: 2+ radial pulses bilaterally. No lower extremity edema. Neuro: Sedated. laboratory and microbiology Laboratory Tests 05/27/24 09:41 05/27/24 03:57 Test 05/27/24 03:57 Range/Units Serum Glucose 143 H 74-106 mg/dL Assessment/Plan Impression: Acute hypoxic respiratory failure On mechanical ventilator Abdominal pain due to recent robotic surgery hysterectomy and salpingo- oophorectomy History of breast cancer with bilateral mastectomies History of bowel surgery and ileostomy Anemia due to hemorrhage on hemodilution Shock Chronic pain syndrome Anemia Atrial fibrillation with RVR Bowel perforation with repeat exploratory laparotomy with ileostomy creation Events: Patient remains on sedation with fentanyl and Versed drips. Remains on pressors on Levophed at 4 micrograms/minute. Currently tapering sedation. Plan for CPAP trial in the morning with pressure support of eight, peep of 5 cm of water. Monitor hemoglobin closely. Hemoglobin is basically being redrawn. Repeat hemoglobin was 7.2 grams/deciliter. ABG reviewed. Slight alkalemia Decrease respiratory rate to 18 breaths per minute. Rest of plan as outlined below. Plan: s/p intubation on mechanical ventilator CXR image and report reviewed. Devices in place. Pulmonary vascular congestion. Right bibasilar airspace opacities. No pleural effusion or pneumothorax. ABG reviewed. Compensated On assist control with a respiratory rate of 20, tidal volume 450, peep of Five, FiO2 of 30%. Titrate FIO2 to keep O2 saturation above 92%. VAP bundle Daily ABG and CXR while intubated. Sedate for ventilatory synchrony On pressors for hemodynamic support. On Levophed at 2 micrograms/minute Titrate to keep MAP above 65 mmHg/SBP above 90 mmHg. Continue antibiotics. F/u cultures. Monitor hemoglobin Transfuse if less than 7.0 grams/deciliter On IV fluids with lactated Ringer's at 75 mL an hour. Monitor renal function due to Acute kidney injury. Monitor electrolytes. Supplement as necessary. Surgery recommendations appreciated. Nutritional support. On TPN Accucheks, ISS. GI/DVT prophylaxis. Condition: Critical Prognosis: Poor given multiple comorbidities. Rest of plan per hospitalist and other consultants. A total of 35 minutes of critical care time was spent reviewing the patient record, examining the patient, making a diagnostic and therapeutic plan, discussing this plan with the medical personnel, following up on diagnostic studies and following the patient for clinical stability excluding any and all procedures. At least 50% of this time was spent in direct, [id number] contact. Thank you for allowing me to participate in this patient's care. Further recommendations will depend on patient's clinical course. Please do not hesitate to contact me if you have any questions or concerns. This medical document was created using an electronic medical record system with [employer] dictation system. Although this document has been carefully reviewed, there may still be some phonetic and typographical errors. These areas are purely typographical due to imperfections of the software programs, and do not reflect any compromise in the patient's medical care. Dietary Evaluation Review Comments: 1) Advance pt diet when medically feasible to a 2gmNa diet modified per ENGINEERING SUPERVISOR recommendations 2) Continue current plan of care Expected Outcomes/Goals: 1) Pt diet to advance 2) F/U in 2-3 days Plan discussed with: Other (RN Anali, RT, WELL CONTROL INSTRUCTOR) Critical Care Time(min): 35 RG LEONE MD May 27, 2024 13:59
--- NOTE | 2024-05-27 15:02 | DVHPN2 ---
Progress Note Date Seen: May 27, 2024 Has the PT tested + for MRSA If YES, has PT been informed?: No Medical Necessity Reason Pt with a Central, PICC or Fol: Yes The following are medically ne: Muhammad Catheter Reason for muhammad catheter: Strict I&O Objective vital signs Vital Sign Date Time Temp Pulse Resp B/P (MAP) Pulse Ox O2 Delivery O2 Flow Rate FiO2 05/27/24 14:38 128/41 05/27/24 14:30 99.7 106 23 100 211.5 05/27/24 14:03 30 05/27/24 12:00 Mechanical Ventilator+ Total Intake and Output 05/26/24 05/26/24 05/27/24 15:00 23:00 07:00 Intake Total 1489.313 ml 1575.066 ml 1457.504 ml Output Total 1015 ml 1115 ml Balance 1489.313 ml 560.066 ml 342.504 ml medications Current Medications Medications Dose Ordered Sig/Nora Route Start Time Stop Time Status Last Admin Dose Admin Ondansetron HCl 4 mg Q4HP PRN IV 05/07/24 16:30 05/16/24 05:55 4 MG Morphine Sulfate 2 mg Q4HPRN PRN IV 05/15/24 17:45 05/16/24 05:56 2 MG Fentanyl Citrate 250 ml @ 2.5 mls/hr Q24H IV 05/16/24 14:00 05/27/24 13:04 30 MLS/HR Midazolam HCl 50 ml @ 1 mls/hr Q24H IV 05/16/24 21:00 05/27/24 14:38 14 MLS/HR Phenylephrine HCl 250 ml @ 30 mls/hr Q8H20M IV 05/16/24 21:15 05/17/24 06:03 30 MLS/HR Acetaminophen 650 mg Q6HPRN PRN [place] 05/16/24 22:30 05/16/24 22:30 650 MG Pantoprazole Sodium 40 mg DAILY IV 05/17/24 10:00 05/27/24 08:07 40 MG Amino Acids 0 ml @ 0 mls/hr PER PHARMACY IV 05/17/24 08:30 Meropenem 50 ml @ 17 mls/hr Q8HR IV 05/18/24 14:00 05/27/24 13:17 17 MLS/HR Vancomycin HCl 0 ml @ 0 mls/hr UD IV 05/18/24 07:45 Metoprolol Tartrate 1.25 mg Q6HPRN PRN IV 05/18/24 16:00 05/18/24 16:17 1.25 MG Norepinephrine Bitartrate 32 mg/ Sodium Chloride 250 ml @ 0.938 mls/ hr Q24H IV 05/18/24 16:00 05/21/24 18:38 4.688 MLS/HR Amiodarone HCl 250 ml @ 16.667 mls/ hr Q15H IV 05/18/24 22:30 05/20/24 20:59 16.667 MLS/HR Potassium Chloride 100 ml @ 50 mls/hr Q2H IV 05/22/24 12:30 05/22/24 16:29 Cancel Micafungin Sodium 100 mg/Sodium Chloride 100 ml @ 100 mls/hr DAILY IV 05/23/24 10:00 05/27/24 08:07 100 MLS/HR Diagnostic Test (Pha) 1 strip Q6HR 05/24/24 12:00 05/27/24 11:43 1 STRIP Insulin Human Regular FOLLOW SLIDING SCALE Q6HR SC 05/24/24 12:00 05/27/24 11:42 2 UNITS Dextrose 50 ml UD IV 05/24/24 12:00 Lactated Ringer's 1,000 ml @ 75 mls/hr [id number] IV 05/25/24 07:15 05/27/24 13:09 75 MLS/HR Vancomycin HCl 250 ml @ 250 mls/hr DAILY@1500 IV 05/25/24 15:00 05/27/24 14:43 250 MLS/HR Fat Emulsion Intravenous 100 ml/Sodium Acetate 20 meq/Potassium Acetate 40 meq/ Potassium Phosphate 22 meq/ Calcium Gluconate 2.3 meq/Magnesium Sulfate 12 meq/ Multivitamins 10 ml/Insulin Human Regular 18 units/ Amino Acids/ Dextrose/Purified Water 1,403.1262 ml @ 58 mls/hr [id number] IV 05/26/24 20:00 05/27/24 19:59 05/26/24 20:00 58 MLS/HR Fat Emulsion Intravenous 100 ml/Sodium Phosphate 40 meq/ Potassium Acetate 20 meq/Calcium Gluconate 2.3 meq/ Magnesium Sulfate 12 meq/ Multivitamins 10 ml/Insulin Human Regular 18 units/ Amino Acids/ Dextrose/Purified Water 1,388.1262 ml @ 58 mls/hr [id number] IV 05/27/24 20:00 05/28/24 19:59 laboratory and microbiology Laboratory Tests 05/27/24 09:41 05/27/24 03:57 Test 05/27/24 03:57 Range/Units Serum Glucose 143 H 74-106 mg/dL Microbiology Date/Time Source Procedure Growth Status 05/24/24 17:06 Other Gram Stain Pending Resulted 05/24/24 17:06 Other Anaerobic Culture - Preliminary Resulted 05/24/24 17:06 Other Aerobic Culture - Preliminary Resulted 05/17/24 01:52 Urine - Muhammad [place] Urine Culture - Final Yeast, not Shawanda albicans Complete 05/16/24 22:55 Blood Blood Culture - Final NO GROWTH AFTER 5 DAYS OF INCUBATION. 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 BETTER VASOPRESSOR WEANING OFF WBC WNL ABD SOFT DRAIN IN PLACE SEROSANGUINEOUS RIGHT 50CC LESS PURULENT, LEFT 40 CC SEROSANGUINEOUS DRESSING DRY CONDITION GUARDED ILEOSTOMY VIABLE AND FUNCTIONAL FAMILY UPDATED NURSE AT BEDSIDE CONTINUE SUPPORTIVE CARE Plan discussed with: Other Dietary Evaluation Review Comments: 1) Advance pt diet when medically feasible to a 2gmNa diet modified per OPTICAL ENGINEER recommendations 2) Continue current plan of care Expected Outcomes/Goals: 1) Pt diet to advance 2) F/U in 2-3 days SHEY COVARRUBIAS MD May 27, 2024 15:02
--- NOTE | 2024-05-27 19:41 | DVHPN2 ---
Progress Note - Dictate Date Seen: May 27, 2024 Has the PT tested + for MRSA If YES, has PT been informed?: No Medical Necessity Reason Pt with a Central, PICC or Fol: Yes The following are medically ne: Muhammad Catheter Reason for muhammad catheter: Strict I&O Subjective Ms. Barrera is a 68 years old right-handed female with a history of hypertension, anemia, breast cancer, she was admitted to the [facility] on 05/07/2024 for scheduled hysterectomy and oophorectomy. Post surgically, she woke up with left-sided weakness, and MRI showed multiple stroke in the right MCA territory. During the hospital stay, she developed fall perforation, and she went through abdominal surgery on 05/16/2024 Because of ongoing intraperitoneal sepsis/peritonitis, the patient went through exploratory laparotomy on 05/24/2024 I have seen and examined the patient in the ICU, I have discussed with her nurse. No obvious changes, she has fever and is on ice pack Occasional movement in the right leg noticed She is intubated, sedated, but is responsive to painful stimuli Versed 14 mg/hour, fentanyl 300 mcg/minute, CBC, 05/16/2024: Metabolic acidosis, 05/17/2024: Metabolic acidosis, 05/18/2024: Metabolic acidosis URINALYSIS, 05/11/2024: WBC: 2, URINE LEUKOCYTE ESTERASE: NEGATIVE WBC/HB/PLT/MCV, 05/04: 5.1/10.7/119/98.3, 05/17/2024: 20.4/8.5/205/86.9 05/19/2024: 12.2/11.1/125/86.2, 05/20/2024: 8.1/10.5/113/86.1, 05/21/2024: 6.6/10.5/106/86.5, 05/26/2024: 9.6/9.2/184/93.8 PT/INR/FTT, 05/16/2024: 17.4/1.71/34.2 K, 05/09/2024: 3.9, 05/10/24:3.1, 05/12/2024: 3.4, 05/16/2024: 2.8 Lactic acid, 05/15/2024: 1.6, 05/16/2024: 1.5 HCO3, 05/23/2024: 35 Bun.Cr, 05/23/2024: 37/0.75 LIVER FUNCTION TESTS, 05/12/2024: UNREMARKABLE, 05/16/2024: Unremarkable TBI/AST/ALT/AP, 05/18/2024: 1.2/8/9/47, 05/19/2024: 3.1/04/23/2067, 05/23/2024: 3.1/48/35/170 TG/HDL/LDL/HDL, 05/12/2024: 196/134/75/23 TSH, 05/12/2024: 2.01 Echocardiogram 05/14/2024: lvef 65% by visual estimate mild mitral regurg RV enlarged mild left atrium enlarged mild Carotid Doppler, 05/11/2024: 1. Occlusion of the right proximal ICA. 2. Greater than 50% stenosis of the right proximal ECA. 3. Greater than 50% stenosis of the left proximal ICA CT head, 05/11/2024: 1. Chronic lacunar infarct in right centrum semiovale. 2. Chronic periventricular ischemic changes. 3. Cerebral and cerebellar atrophy, likely age-related. 4. Advised further evaluation with MRI brain without contrast if clinically indicated CT abdomen/pelvis, 05/15/2024: Small bowel obstruction with evidence of perforation including free intraperitoneal fluid and air. Extensive subcutaneous emphysema likely secondary to bowel perforation CT abdomen/pelvis, 05/16/2024: 1. Sequelae of recent postsurgical changes as described above. Correlate with surgical history. 2. Pneumoperitoneum and free fluid in the abdomen and pelvis. 3. Large collection containing fluid and gas, predominantly in the right hemiabdomen. There is GI contrast extending into this collection from an adjacent small bowel loop. There is a component of this collection extending adjacent to the anterior superior aspect of the liver. 4. Moderate right hydronephrosis and hydroureter. The distal right ureter appears to be compressed by the large fluid collection in the right hemiabdomen. No obstructing calculus. 5. Dilated small bowel loops in the left hemiabdomen with suspected small-bowel obstruction. 6. Prominent subcutaneous edema in the ventral abdominal wall and extending caudally into the inguinal regions bilaterally, peroneal region, and anterior aspect of the left thigh. 7. Small bilateral pleural effusions with overlying atelectasis. 8. Additional findings as detailed above. CT abdomen, 05/23/2024: Postsurgical changes of the ventral abdomen with interval improvement in the diffuse soft tissue edema and ventral abdominal, pelvis and upper thigh subcutaneous emphysema. Interval significant decrease in size of the loculated collection within the right hemiabdomen and pelvis with small residual. Interval placement of drainage catheters terminating over the left upper abdominal quadrant and left hemipelvis as detailed above. Interval development of small to moderate ascites. Wall thickening of fluid-filled nondistended small bowel loops of the anterior mid to lower abdomen which may be from the surrounding ascites versus enteritis. Additional findings as above. CTA neck, head, 05/14/24: 1. Complete occlusion of the right cervical internal carotid artery. There may be trickle flow in distal right cervical ICA. 2. Poor flow in the right intracranial ICA likely retrograde perfusion through the contralateral left side posterior circulation through the communicating arteries. 3. High-grade stenosis at the left carotid bulb with at least 70-80% stenosis. Moderate short-segment stenosis in the left proximal ICA with at least 60% stenosis. MRI HEAD, 05/11/2024: 1. Multiple foci of restricted diffusion in the right centrum semiovale and along the right superior frontal lobe compatible with acute to subacute infarcts. There is no evidence of acute hemorrhage or significant surrounding edema. 2. Absence of flow void in the intracranial portions of the right internal carotid artery which is likely occluded. vital signs Vital Sign Date Time Temp Pulse Resp B/P (MAP) Pulse Ox O2 Delivery O2 Flow Rate FiO2 05/27/24 19:00 99.3 94 19 97/37 (57) 95 210.7 85/36 (52) 05/27/24 18:10 30 05/27/24 18:00 Mechanical Ventilator+ Total Intake and Output 05/26/24 05/26/24 05/27/24 15:00 23:00 07:00 Intake Total 1489.313 ml 1575.066 ml 1457.504 ml Output Total 1015 ml 1115 ml Balance 1489.313 ml 560.066 ml 342.504 ml medications Current Medications Medications Dose Ordered Sig/Nora Route Start Time Stop Time Status Last Admin Dose Admin Ondansetron HCl 4 mg Q4HP PRN IV 05/07/24 16:30 05/16/24 05:55 4 MG Morphine Sulfate 2 mg Q4HPRN PRN IV 05/15/24 17:45 05/16/24 05:56 2 MG Fentanyl Citrate 250 ml @ 2.5 mls/hr Q24H IV 05/16/24 14:00 05/27/24 13:04 30 MLS/HR Midazolam HCl 50 ml @ 1 mls/hr Q24H IV 05/16/24 21:00 05/27/24 16:14 14 MLS/HR Phenylephrine HCl 250 ml @ 30 mls/hr Q8H20M IV 05/16/24 21:15 05/17/24 06:03 30 MLS/HR Acetaminophen 650 mg Q6HPRN PRN [place] 05/16/24 22:30 05/16/24 22:30 650 MG Pantoprazole Sodium 40 mg DAILY IV 05/17/24 10:00 05/27/24 08:07 40 MG Amino Acids 0 ml @ 0 mls/hr PER PHARMACY IV 05/17/24 08:30 Meropenem 50 ml @ 17 mls/hr Q8HR IV 05/18/24 14:00 05/27/24 13:17 17 MLS/HR Vancomycin HCl 0 ml @ 0 mls/hr UD IV 05/18/24 07:45 Metoprolol Tartrate 1.25 mg Q6HPRN PRN IV 05/18/24 16:00 05/18/24 16:17 1.25 MG Norepinephrine Bitartrate 32 mg/ Sodium Chloride 250 ml @ 0.938 mls/ hr Q24H IV 05/18/24 16:00 05/21/24 18:38 4.688 MLS/HR Amiodarone HCl 250 ml @ 16.667 mls/ hr Q15H IV 05/18/24 22:30 05/20/24 20:59 16.667 MLS/HR Potassium Chloride 100 ml @ 50 mls/hr Q2H IV 05/22/24 12:30 05/22/24 16:29 Cancel Micafungin Sodium 100 mg/Sodium Chloride 100 ml @ 100 mls/hr DAILY IV 05/23/24 10:00 05/27/24 08:07 100 MLS/HR Diagnostic Test (Pha) 1 strip Q6HR 05/24/24 12:00 05/27/24 17:52 1 STRIP Insulin Human Regular FOLLOW SLIDING SCALE Q6HR SC 05/24/24 12:00 05/27/24 11:42 2 UNITS Dextrose 50 ml UD IV 05/24/24 12:00 Vancomycin HCl 250 ml @ 250 mls/hr DAILY@1500 IV 05/25/24 15:00 05/27/24 14:43 250 MLS/HR Fat Emulsion Intravenous 100 ml/Sodium Acetate 20 meq/Potassium Acetate 40 meq/ Potassium Phosphate 22 meq/ Calcium Gluconate 2.3 meq/Magnesium Sulfate 12 meq/ Multivitamins 10 ml/Insulin Human Regular 18 units/ Amino Acids/ Dextrose/Purified Water 1,403.1262 ml @ 58 mls/hr [id number] IV 05/26/24 20:00 05/27/24 19:59 05/26/24 20:00 58 MLS/HR Fat Emulsion Intravenous 100 ml/Sodium Phosphate 40 meq/ Potassium Acetate 20 meq/Calcium Gluconate 2.3 meq/ Magnesium Sulfate 12 meq/ Multivitamins 10 ml/Insulin Human Regular 18 units/ Amino Acids/ Dextrose/Purified Water 1,388.1262 ml @ 58 mls/hr [id number] IV 05/27/24 20:00 05/28/24 19:59 objective General: the patient is well developed and nourished. No acute distress. ABDOMEN: Status post surgery MENTAL STATUS: Subjective. CRANIAL NERVES: Pupils are equal, round and reactivel. There are corneal reflexes and doll's eyes phenomenon. No signs of facial weakness. There are weak gagging or coughing reflexes SENSATION: No responses to pain stimuli. MOTOR: Normal tone in the upper and lower extremity. Normal muscle bulk. No fasciculations. No spontaneous movement. REFLEXES: Deep tendon reflexes are symmetrical. No pathological reflexes. CEREBELLAR/COORDINATION: Deferred GAIT/STATION: deferred. laboratory and microbiology Laboratory Tests 05/27/24 09:41 05/27/24 03:57 Test 05/27/24 03:57 Range/Units Serum Glucose 143 H 74-106 mg/dL Problem List Pelvic prolapse, can count urethrovesical junction, surgery repair on 05/07/2024 (Robotic supracervical hysterectomy bilateral salpingo-oophorectomy colposcopic pexy cystocele repair urethral sling partial vaginectomy) Bowel obstruction with perforation, intra-abdominal abscess, dense at [place], status post surgery 05/16/2024 Sepsis/septic shock Metabolic encephalopathy Acute right MCA territory multiple strokes Left hemiparesis Right ICA occlusion Left ICA severe stenosis Anemia Status post oophorectomy, hysterectomy Assessment/Plan Monitoring Supportive treatment ICU care Stabilize vitals/pressor drip Respiratory support/vent management IV antibiotics Oxygen Hold off Aspirin 81 mg q.d. Hold off Plavix 75 mg daily for 21 days Lipitor 20 mg daily (NPO) TPN Up to chair Physical therapy Further address bilateral carotid stenosis CLARA on discharge Surgery on case More recommendation per clinical course This medical document was created using an electronic medical record system with [employer] dictation system. Although this document has been carefully reviewed, there may still be some phonetic and typographical errors. These areas are purely typographical due to imperfections of the software programs, and do not reflect any compromise in the patient's medical care Prognosis guarded Dietary Evaluation Review Comments: 1) Advance pt diet when medically feasible to a 2gmNa diet modified per TEACHER OF FAMILY AND CONSUMER SCIENCE recommendations 2) Continue current plan of care Expected Outcomes/Goals: 1) Pt diet to advance 2) F/U in 2-3 days Plan discussed with: Other BRYAN FLORES MD May 27, 2024 19:41
[2024-05-27] MEDS ORDERED: TPN PER PHARMACY IV NR (20:00)
[2024-05-27] MEDS: TPN PER PHARMACY IV NR (20:03)
--- NOTE | 2024-05-27 21:43 | DVHPN2 ---
Reviewed: Care Plan, H&P, Labs, Medications, Previous Orders, Radiology Changes from previous H/P or p: No Changes General: Per HPI Eyes: No Pain, No Vision change, No Conjunctivae inflammation, No Eyelid inflammation, No Other, No Redness ENT: No Ear pain, No Ear discharge, No Nose pain, No Nose discharge, No Nose congestion, No Mouth pain, No Mouth swelling, No Throat pain, No Throat swelling, No Other Cardiovascular: No Chest Pain, No Palpitations, No Orthopnea, No Paroxysmal Noc. Dyspnea, No Edema, No Lt Headedness, No Other Respiratory: No Cough, No Dry, No Shortness of breath, No SOB with excertion, No Wheezing, No Hemoptysis, No Pleuritic Pain, No Sputum, No Other Gastrointestinal: Nausea Genitourinary: No Dysuria, No Frequency, No Incontinence, No Hematuria, No Retention, No Other Musculoskeletal: No other, No neck pain, No shoulder pain, No arm pain, No back pain, No hand pain, No leg pain, No foot pain Skin: No Rash, No Lesions, No Jaundice, No Bruising, No Other Objective Vitals Vital Signs Date Time Temp Pulse Resp B/P (MAP) Pulse Ox O2 Delivery O2 Flow Rate FiO2 05/27/24 19:40 119/30 05/27/24 19:30 91 18 98 30 05/27/24 19:00 99.3 210.7 05/27/24 18:00 Mechanical Ventilator+ Intake/Output Intake and Output 05/27/24 07:00 Intake Total 4521.883 ml Output Total 2130 ml Balance 2391.883 ml IV Total 4521.883 ml Output Urine Total 1590 ml Stool Total 50 ml Gastric Drainage Total 175 ml Drainage Total 250 ml Other 65 ml General Appearance: moderate distress, Other (Intubated and sedated) HEENT: Atraumatic, PERRLA Lungs: Clear to auscultation, Normal air movement, Other (Mechanical ventilation) Cardiovascular: Regular rate, Normal S1, Normal S2 Abdomen: Other (Ileostomy with drainage. 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) Skin: Dry, Intact, Other (Surgical incision dry and intact) Psych/Mental Status: Mental status NL, Mood NL Medications Current Medications Medications Dose Ordered Sig/Nora Route Start Time Stop Time Status Last Admin Dose Admin Ondansetron HCl 4 mg Q4HP PRN IV 05/07/24 16:30 05/16/24 05:55 4 MG Morphine Sulfate 2 mg Q4HPRN PRN IV 05/15/24 17:45 05/16/24 05:56 2 MG Fentanyl Citrate 250 ml @ 2.5 mls/hr Q24H IV 05/16/24 14:00 05/27/24 19:40 30 MLS/HR Midazolam HCl 50 ml @ 1 mls/hr Q24H IV 05/16/24 21:00 05/27/24 19:40 14 MLS/HR Phenylephrine HCl 250 ml @ 30 mls/hr Q8H20M IV 05/16/24 21:15 05/17/24 06:03 30 MLS/HR Acetaminophen 650 mg Q6HPRN PRN WI 05/16/24 22:30 05/16/24 22:30 650 MG Pantoprazole Sodium 40 mg DAILY IV 05/17/24 10:00 05/27/24 08:07 40 MG Amino Acids 0 ml @ 0 mls/hr PER PHARMACY IV 05/17/24 08:30 Meropenem 50 ml @ 17 mls/hr Q8HR IV 05/18/24 14:00 05/27/24 13:17 17 MLS/HR Vancomycin HCl 0 ml @ 0 mls/hr UD IV 05/18/24 07:45 Metoprolol Tartrate 1.25 mg Q6HPRN PRN IV 05/18/24 16:00 05/18/24 16:17 1.25 MG Norepinephrine Bitartrate 32 mg/ Sodium Chloride 250 ml @ 0.938 mls/ hr Q24H IV 05/18/24 16:00 05/21/24 18:38 4.688 MLS/HR Amiodarone HCl 250 ml @ 16.667 mls/ hr Q15H IV 05/18/24 22:30 05/20/24 20:59 16.667 MLS/HR Potassium Chloride 100 ml @ 50 mls/hr Q2H IV 05/22/24 12:30 05/22/24 16:29 Cancel Micafungin Sodium 100 mg/Sodium Chloride 100 ml @ 100 mls/hr DAILY IV 05/23/24 10:00 05/27/24 08:07 100 MLS/HR Diagnostic Test (Pha) 1 strip Q6HR 05/24/24 12:00 05/27/24 17:52 1 STRIP Insulin Human Regular FOLLOW SLIDING SCALE Q6HR SC 05/24/24 12:00 05/27/24 11:42 2 UNITS Dextrose 50 ml UD IV 05/24/24 12:00 Vancomycin HCl 250 ml @ 250 mls/hr DAILY@1500 IV 05/25/24 15:00 05/27/24 14:43 250 MLS/HR Fat Emulsion Intravenous 100 ml/Sodium Phosphate 40 meq/ Potassium Acetate 20 meq/Calcium Gluconate 2.3 meq/ Magnesium Sulfate 12 meq/ Multivitamins 10 ml/Insulin Human Regular 18 units/ Amino Acids/ Dextrose/Purified Water 1,388.1262 ml @ 58 mls/hr [id number] IV 05/27/24 20:00 05/28/24 19:59 05/27/24 20:03 58 MLS/HR Laboratory Results Laboratory Tests 05/27/24 03:57 05/27/24 09:41 Chemistry Test 05/27/24 03:57 Albumin 2.1 g/dL (3.2-4.8) L Calcium Level 8.4 mg/dL (8.7-10.4) L Magnesium Level 2.0 mg/dL (1.6-2.6) Phosphorus Level 2.8 mg/dL (2.4-5.1) Total Protein 4.6 g/dL (5.7-8.2) L LFT Test 05/27/24 03:57 Alanine Aminotransferase (ALT) 16 U/L (7-40) Alkaline Phosphatase 86 U/L (46-116) Aspartate Amino Transferase (AST) 22 U/L (13-40) Total Bilirubin 2.4 mg/dL (0.2-1.0) H Urinalysis Test 05/11/24 16:18 Urine Color Yellow (Yellow) Urine Clarity Clear (Clear) Urine pH 6.0 (5.0-9.0) Urine Specific [place] 1.020 (1.001-1.035) Urine Protein 1+ (Negative) H Urine Ketones 4+ (Negative) H Urine Blood Trace /uL (Negative) H Urine Nitrite Negative (Negative) Urine Bilirubin Negative (Negative) Urine Urobilinogen Normal mg/dL (Negative) Urine Leukocyte Esterase Negative /uL (Negative) Urine RBC 2 /hpf (0 - 4) Urine WBC 2 /hpf (0 - 5) Urine Squamous Epithelial Cells Few /hpf (<5) Urine Bacteria None seen /hpf (None Seen) Urine Mucus Few (None Seen) Urine Glucose Normal mg/dL (Normal) Blood Gas Results Test 05/27/24 08:07 Arterial Blood pH 7.453 (7.350-7.450) FiO2 % 30.0 Microbiology Microbiology Date/Time Source Procedure Growth Status 05/24/24 17:06 Other Gram Stain Pending Resulted 05/24/24 17:06 Other Anaerobic Culture - Preliminary Resulted 05/24/24 17:06 Other Aerobic Culture - Preliminary Resulted 05/17/24 01:52 Urine - [place] Urine Culture - Final Yeast, not Shawanda albicans Complete 05/16/24 22:55 Blood Blood Culture - Final NO GROWTH AFTER 5 DAYS OF INCUBATION. Complete 05/16/24 14:20 Sputum Gram Stain - Final Complete 05/16/24 14:20 Respiratory Culture - Final Yeast, not Shawanda albicans Complete Labs and/or images reviewed: Labs reviewed by me, Image(s) reviewed by me Assessment/Plan Assessment/Plan Impression: Abdominal pain due to recent robotic surgery hysterectomy and salpingo- oophorectomy History of breast cancer with bilateral mastectomies History of bowel surgery and ileostomy which Anemia due to blood loss and dilution Hypotension Chronic pain syndrome, patient takes opiates at home Hypokalemia Hypomagnesemia Anemia Afib with RVR Bowel perforation with repeat exploratory laparotomy with ileostomy creation Plan: Events: Patient continues to have low-grade fever. Leukocytosis improved. Ileostomy with bilious drainage and EVARISTO drains with serosanguineous drainage, dressing intact. weaning off of vasopressors levophed. Neuro, Pulm, and Surgery following. - holding anticoagulation. holding DAPT per neuro. -norepinephrine drip to keep systolic blood pressure greater than 110 mmHg -continue IV fluid -TPN with electrolyte replacement per pharmacy -antimicrobial therapy vancomycin and meropenem, micafungin -NG tube to low intermittent suction -ventilator settings AC 20, tidal volume 450, peep 5, FiO2 30% - pulm monitoring. -PUD, DVT prophylaxis -repeat labs, chest x-ray, ABG in a.m. Critical care time spent with patient discussing and formulating plan of care: 35 minutes. This does not include time spent performing procedures. Plan discussed with: Other Date of Service: May 27, 2024 Billing Provider: PATITO YORK MD Common Visit Codes: [id number] CARE 30-74 MIN PATITO YORK MD May 27, 2024 21:43
[2024-05-28] VITALS (105 sets, daily range): BP systolic 49–195; BP diastolic 19–77; PULSE 74–106; RESP 10–27; TEMP 98.4–99.9; O2SAT 91–100
--- NOTE | 2024-05-28 06:07 | DVH ---
CHEST RADIOGRAPH Indication:chf, device placement Technique: Single frontal view of the chest was obtained Comparison: XY CHEST PORTABLE on DOS: 05/27/24, XY CHEST PORTABLE on DOS: 05/26/24, XY CHEST PORTABLE on DOS: 05/24/24, XY CHEST XRAY 1 VIEW on DOS: 05/23/24, XY CHEST PORTABLE on DOS: 05/23/24, XY CHEST PORTABLE on DOS: 05/27/24 FINDINGS: Lines and Tubes: The endotracheal tube terminates 4.9 cm above the joaquin. The enteric tube courses b elow the left hemidiaphragm and the tip extends outside the field of view. Right infusion catheter an d right central venous catheter are similar to prior study terminating in the superior vena cava. Lungs: Stable pulmonary congestion. Right basilar airspace disease is unchanged. Pleura: No effusion. No pneumothorax. Cardiomediastinal contours: Unremarkable Bones: No acute osseous abnormality. IMPRESSION: 1. No significant interval change.
[2024-05-28 06:16] LABS: Base Excess -3.3 mmol/L (-2.0-3.0)
[2024-05-28 08:22] LABS: Alanine Aminotransferase 19 U/L (7-40); Alkaline Phosphatase 109 U/L (46-116); Anion Gap 6 (5-15); BUN/Creatinine Ratio 54.3 (10.0-20.0); Blood Urea Nitrogen 25 mg/dL (9-23); Calcium 8.5 mg/dL (8.7-10.4); Carbon Dioxide 25 mmol/L (20-31); Chloride 108 mmol/L (98-107); Glucose 115 mg/dL (74-106); Potassium 4.1 mmol/L (3.5-5.1); Sodium 139 mmol/L (136-145)
[2024-05-28 08:23] LABS: Albumin 2.4 g/dL (3.2-4.8); Aspartate Aminotransferase 31 U/L (13-40); Bilirubin, Total 2.3 mg/dL (0.2-1.0); Phosphorus 3.7 mg/dL (2.4-5.1); Total Protein 5.2 g/dL (5.7-8.2)
[2024-05-28 08:49] LABS: Basophils # (auto) 0 10 ^3/uL (0-0.2); Basophils % (auto) 0.5 % (0.0-2.0); Eosinophils # (auto) 0.1 10 ^3/uL (0-0.8); Lymphocytes # (auto) 0.6 10 ^3/uL (0.4-5.4); Monocytes # (auto) 0.7 10 ^3/uL (0-1.3); Neutrophils # (auto) 6.1 10 ^3/uL (1.6-8.6)
[2024-05-28 08:52] LABS: Eosinophils % (auto) 1.1 % (0.0-7.0); Hematocrit 20.9 % (36.0-46.0); Lymphocytes % (auto) 7.6 % (10.0-50.0); Mean Corpuscular Hemoglobin 29.8 pg (28.0-32.0); Mean Corpuscular Hgb Conc. 33.3 g/dL (32.0-36.0); Mean Corpuscular Volume 89.6 fL (80.0-100.0); Monocytes % (auto) 9.1 % (0.0-12.0); Neutrophils % (auto) 81.7 % (37.0-80.0); Platelet Count (auto) 223 10^3/uL (140-450); Red Blood Cells 2.33 10^6/uL (4.0-5.20); Red Cell Distribution Width 15.3 % (11.8-14.3); White Blood Cell 7.5 10^3/uL (4.4-10.8)
--- NOTE | 2024-05-28 10:39 | DVHPN2 ---
Progress Note - Dictate Date Seen: May 28, 2024 Has the PT tested + for MRSA If YES, has PT been informed?: No Medical Necessity Reason Pt with a Central, PICC or Fol: Yes The following are medically ne: Muhammad Catheter Reason for muhammad catheter: Strict I&O Subjective Ms. Barrera is a 68 years old right-handed female with a history of hypertension, anemia, breast cancer, she was admitted to the [facility] on 05/07/2024 for scheduled hysterectomy and oophorectomy. Post surgically, she woke up with left-sided weakness, and MRI showed multiple stroke in the right MCA territory. During the hospital stay, she developed fall perforation, and she went through abdominal surgery on 05/16/2024 Because of ongoing intraperitoneal sepsis/peritonitis, the patient went through exploratory laparotomy on 05/24/2024 I have seen and examined the patient in the ICU, I have discussed with her nurse. She is positive responds to light touch stimuli, intubated, she was fever Occasional movement in the right leg noticed Versed 14 mg/hour, fentanyl 300 mcg/minute, CBC, 05/16/2024: Metabolic acidosis, 05/17/2024: Metabolic acidosis, 05/18/2024: Metabolic acidosis URINALYSIS, 05/11/2024: WBC: 2, URINE LEUKOCYTE ESTERASE: NEGATIVE WBC/HB/PLT/MCV, 05/04: 5.1/10.7/119/98.3, 05/17/2024: 20.4/8.5/205/86.9 05/19/2024: 12.2/11.1/125/86.2, 05/20/2024: 8.1/10.5/113/86.1, 05/21/2024: 6.6/10.5/106/86.5, 05/26/2024: 9.6/9.2/184/93.8, 05/28/2024: 7.5/7/223/89.6 PT/INR/FTT, 05/16/2024: 17.4/1.71/34.2 K, 05/09/2024: 3.9, 05/10/24:3.1, 05/12/2024: 3.4, 05/16/2024: 2.8 Lactic acid, 05/15/2024: 1.6, 05/16/2024: 1.5 HCO3, 05/23/2024: 35 Bun.Cr, 05/23/2024: 37/0.75 LIVER FUNCTION TESTS, 05/12/2024: UNREMARKABLE, 05/16/2024: Unremarkable TBI/AST/ALT/AP, 05/18/2024: 1.2/8/9/47, 05/19/2024: 3.1/04/23/2067, 05/23/2024: 3.1/48/35/170 TG/HDL/LDL/HDL, 05/12/2024: 196/134/75/23 TSH, 05/12/2024: 2.01 Echocardiogram 05/14/2024: lvef 65% by visual estimate mild mitral regurg RV enlarged mild left atrium enlarged mild Carotid Doppler, 05/11/2024: 1. Occlusion of the right proximal ICA. 2. Greater than 50% stenosis of the right proximal ECA. 3. Greater than 50% stenosis of the left proximal ICA CT head, 05/11/2024: 1. Chronic lacunar infarct in right centrum semiovale. 2. Chronic periventricular ischemic changes. 3. Cerebral and cerebellar atrophy, likely age-related. 4. Advised further evaluation with MRI brain without contrast if clinically indicated CT abdomen/pelvis, 05/15/2024: Small bowel obstruction with evidence of perforation including free intraperitoneal fluid and air. Extensive subcutaneous emphysema likely secondary to bowel perforation CT abdomen/pelvis, 05/16/2024: 1. Sequelae of recent postsurgical changes as described above. Correlate with surgical history. 2. Pneumoperitoneum and free fluid in the abdomen and pelvis. 3. Large collection containing fluid and gas, predominantly in the right hemiabdomen. There is GI contrast extending into this collection from an adjacent small bowel loop. There is a component of this collection extending adjacent to the anterior superior aspect of the liver. 4. Moderate right hydronephrosis and hydroureter. The distal right ureter appears to be compressed by the large fluid collection in the right hemiabdomen. No obstructing calculus. 5. Dilated small bowel loops in the left hemiabdomen with suspected small-bowel obstruction. 6. Prominent subcutaneous edema in the ventral abdominal wall and extending caudally into the inguinal regions bilaterally, peroneal region, and anterior aspect of the left thigh. 7. Small bilateral pleural effusions with overlying atelectasis. 8. Additional findings as detailed above. CT abdomen, 05/23/2024: Postsurgical changes of the ventral abdomen with interval improvement in the diffuse soft tissue edema and ventral abdominal, pelvis and upper thigh subcutaneous emphysema. Interval significant decrease in size of the loculated collection within the right hemiabdomen and pelvis with small residual. Interval placement of drainage catheters terminating over the left upper abdominal quadrant and left hemipelvis as detailed above. Interval development of small to moderate ascites. Wall thickening of fluid-filled nondistended small bowel loops of the anterior mid to lower abdomen which may be from the surrounding ascites versus enteritis. Additional findings as above. CTA neck, head, 05/14/24: 1. Complete occlusion of the right cervical internal carotid artery. There may be trickle flow in distal right cervical ICA. 2. Poor flow in the right intracranial ICA likely retrograde perfusion through the contralateral left side posterior circulation through the communicating arteries. 3. High-grade stenosis at the left carotid bulb with at least 70-80% stenosis. Moderate short-segment stenosis in the left proximal ICA with at least 60% stenosis. MRI HEAD, 05/11/2024: 1. Multiple foci of restricted diffusion in the right centrum semiovale and along the right superior frontal lobe compatible with acute to subacute infarcts. There is no evidence of acute hemorrhage or significant surrounding edema. 2. Absence of flow void in the intracranial portions of the right internal carotid artery which is likely occluded. vital signs Vital Sign Date Time Temp Pulse Resp B/P (MAP) Pulse Ox O2 Delivery O2 Flow Rate FiO2 05/28/24 08:36 98 22 98/49 100 30 05/28/24 06:45 99.9 211.8 05/28/24 06:00 Mechanical Ventilator+ Total Intake and Output 05/27/24 05/27/24 05/28/24 15:00 23:00 07:00 Intake Total 1937.556 ml 695 ml 748 ml Output Total 1695 ml 1000 ml Balance 1937.556 ml -1000 ml -252 ml medications Current Medications Medications Dose Ordered Sig/Nora Route Start Time Stop Time Status Last Admin Dose Admin Ondansetron HCl 4 mg Q4HP PRN IV 05/07/24 16:30 05/16/24 05:55 4 MG Morphine Sulfate 2 mg Q4HPRN PRN IV 05/15/24 17:45 05/16/24 05:56 2 MG Fentanyl Citrate 250 ml @ 2.5 mls/hr Q24H IV 05/16/24 14:00 05/28/24 09:51 30 MLS/HR Midazolam HCl 50 ml @ 1 mls/hr Q24H IV 05/16/24 21:00 05/28/24 09:46 14 MLS/HR Phenylephrine HCl 250 ml @ 30 mls/hr Q8H20M IV 05/16/24 21:15 05/17/24 06:03 30 MLS/HR Acetaminophen [address] 05/16/24 22:30 05/16/24 22:30 650 MG Pantoprazole Sodium 40 mg DAILY IV 05/17/24 10:00 05/28/24 10:26 40 MG Amino Acids 0 ml @ 0 mls/hr PER PHARMACY IV 05/17/24 08:30 Meropenem 50 ml @ 17 mls/hr Q8HR IV 05/18/24 14:00 05/28/24 06:08 17 MLS/HR Vancomycin HCl 0 ml @ 0 mls/hr UD IV 05/18/24 07:45 Metoprolol Tartrate 1.25 mg Q6HPRN PRN IV 05/18/24 16:00 05/18/24 16:17 1.25 MG Norepinephrine Bitartrate 32 mg/ Sodium Chloride 250 ml @ 0.938 mls/ hr Q24H IV 05/18/24 16:00 05/28/24 09:55 0.938 MLS/HR Amiodarone HCl 250 ml @ 16.667 mls/ hr Q15H IV 05/18/24 22:30 05/20/24 20:59 16.667 MLS/HR Potassium Chloride 100 ml @ 50 mls/hr Q2H IV 05/22/24 12:30 05/22/24 16:29 Cancel Micafungin Sodium 100 mg/Sodium Chloride 100 ml @ 100 mls/hr DAILY IV 05/23/24 10:00 05/27/24 08:07 100 MLS/HR Diagnostic Test (Pha) 1 strip Q6HR 05/24/24 12:00 05/28/24 06:14 1 STRIP Insulin Human Regular FOLLOW SLIDING SCALE Q6HR SC 05/24/24 12:00 05/28/24 06:17 2 UNITS Dextrose 50 ml UD IV 05/24/24 12:00 Vancomycin HCl 250 ml @ 250 mls/hr DAILY@1500 IV 05/25/24 15:00 05/27/24 14:43 250 MLS/HR Fat Emulsion Intravenous 100 ml/Sodium Phosphate 40 meq/ Potassium Acetate 20 meq/Calcium Gluconate 2.3 meq/ Magnesium Sulfate 12 meq/ Multivitamins 10 ml/Insulin Human Regular 18 units/ Amino Acids/ Dextrose/Purified Water 1,388.1262 ml @ 58 mls/hr [id number] IV 05/27/24 20:00 05/28/24 19:59 05/27/24 20:03 58 MLS/HR objective General: the patient is well developed and nourished. No acute distress. ABDOMEN: Status post surgery MENTAL STATUS: Subjective. CRANIAL NERVES: Pupils are equal, round and reactivel. There are corneal reflexes and doll's eyes phenomenon. No signs of facial weakness. There are weak gagging or coughing reflexes SENSATION: No responses to pain stimuli. MOTOR: Normal tone in the upper and lower extremity. Normal muscle bulk. No fasciculations. No spontaneous movement. REFLEXES: Deep tendon reflexes are symmetrical. No pathological reflexes. CEREBELLAR/COORDINATION: Deferred GAIT/STATION: deferred. laboratory and microbiology Laboratory Tests 05/28/24 04:00 Test 05/28/24 04:00 Range/Units Serum Glucose 115 H 74-106 mg/dL Problem List Pelvic prolapse, can count urethrovesical junction, surgery repair on 05/07/2024 (Robotic supracervical hysterectomy bilateral salpingo-oophorectomy colposcopic pexy cystocele repair urethral sling partial vaginectomy) Bowel obstruction with perforation, intra-abdominal abscess, dense at [place], status post surgery 05/16/2024 Sepsis/septic shock Metabolic encephalopathy Acute right MCA territory multiple strokes Left hemiparesis Right ICA occlusion Left ICA severe stenosis Anemia, with unstable H&H Status post oophorectomy, hysterectomy Assessment/Plan Monitoring Supportive treatment ICU care Stabilize vitals/pressor drip Respiratory support/vent management IV antibiotics Oxygen Hold off Aspirin 81 mg q.d. Hold off Plavix 75 mg daily for 21 days Lipitor 20 mg daily (NPO) TPN Up to chair Physical therapy Further address bilateral carotid stenosis CLARA on discharge Surgery on case More recommendation per clinical course This medical document was created using an electronic medical record system with [employer] dictation system. Although this document has been carefully reviewed, there may still be some phonetic and typographical errors. These areas are purely typographical due to imperfections of the software programs, and do not reflect any compromise in the patient's medical care Prognosis guarded Dietary Evaluation Review Comments: 1) Advance pt diet when medically feasible to a 2gmNa diet modified per DRUG ABUSE TECHNICIAN recommendations 2) Continue current plan of care Expected Outcomes/Goals: 1) Pt diet to advance 2) F/U in 2-3 days Plan discussed with: Other BRYAN FLORES MD May 28, 2024 10:39
--- NOTE | 2024-05-28 15:32 | DVHPN2 ---
Subjective Intubated and sedated Reviewed: Care Plan, H&P, Labs, Medications, Previous Orders, Radiology Changes from previous H/P or p: Changes General: Per HPI Eyes: No Pain, No Vision change, No Conjunctivae inflammation, No Eyelid inflammation, No Other, No Redness ENT: No Ear pain, No Ear discharge, No Nose pain, No Nose discharge, No Nose congestion, No Mouth pain, No Mouth swelling, No Throat pain, No Throat swelling, No Other Cardiovascular: No Chest Pain, No Palpitations, No Orthopnea, No Paroxysmal Noc. Dyspnea, No Edema, No Lt Headedness, No Other Respiratory: No Cough, No Dry, No Shortness of breath, No SOB with excertion, No Wheezing, No Hemoptysis, No Pleuritic Pain, No Sputum, No Other Gastrointestinal: Nausea Genitourinary: No Dysuria, No Frequency, No Incontinence, No Hematuria, No Retention, No Other Musculoskeletal: No other, No neck pain, No shoulder pain, No arm pain, No back pain, No hand pain, No leg pain, No foot pain Skin: No Rash, No Lesions, No Jaundice, No Bruising, No Other Objective Vitals Vital Signs Date Time Temp Pulse Resp B/P (MAP) Pulse Ox O2 Delivery O2 Flow Rate FiO2 05/28/24 14:38 81 18 104/43 (63) 97 30 05/28/24 14:00 Mechanical Ventilator+ 05/28/24 06:45 99.9 211.8 Intake/Output Intake and Output 05/28/24 07:00 Intake Total 3380.556 ml Output Total 2695 ml Balance 685.556 ml IV Total 3380.556 ml Output Urine Total 2350 ml Stool Total 25 ml Gastric Drainage Total 150 ml Drainage Total 170 ml General Appearance: moderate distress, Other (Intubated and sedated) HEENT: Atraumatic, PERRLA Lungs: Clear to auscultation, Normal air movement, Other (Mechanical ventilation) Cardiovascular: Regular rate, Normal S1, Normal S2 Abdomen: Other (Ileostomy with drainage. EVARISTO to right lower quadrant with thick serosanguineous secretions.) Musculoskeletal: Other (Unable to assess) Extremities: No edema, Other (Poor cap refill to left lower extremity with some cyanosis noted) Neuro: Other (Left arm weakness including rn licensed practical and proximal muscles) Skin: Dry, Intact, Other (Surgical incision dry and intact) Psych/Mental Status: Mental status NL, Mood NL Medications Current Medications Medications Dose Ordered Sig/Nora Route Start Time Stop Time Status Last Admin Dose Admin Ondansetron HCl 4 mg Q4HP PRN IV 05/07/24 16:30 05/16/24 05:55 4 MG Morphine Sulfate 2 mg Q4HPRN PRN IV 05/15/24 17:45 05/16/24 05:56 2 MG Fentanyl Citrate 250 ml @ 2.5 mls/hr Q24H IV 05/16/24 14:00 05/28/24 09:51 30 MLS/HR Midazolam HCl 50 ml @ 1 mls/hr Q24H IV 05/16/24 21:00 05/28/24 13:16 14 MLS/HR Phenylephrine HCl 250 ml @ 30 mls/hr Q8H20M IV 05/16/24 21:15 05/17/24 06:03 30 MLS/HR Acetaminophen 650 mg Q6HPRN PRN PA 05/16/24 22:30 05/16/24 22:30 650 MG Pantoprazole Sodium 40 mg DAILY IV 05/17/24 10:00 05/28/24 10:26 40 MG Amino Acids 0 ml @ 0 mls/hr PER PHARMACY IV 05/17/24 08:30 Meropenem 50 ml @ 17 mls/hr Q8HR IV 05/18/24 14:00 05/28/24 14:47 17 MLS/HR Vancomycin HCl 0 ml @ 0 mls/hr UD IV 05/18/24 07:45 Metoprolol Tartrate 1.25 mg Q6HPRN PRN IV 05/18/24 16:00 05/18/24 16:17 1.25 MG Norepinephrine Bitartrate 32 mg/ Sodium Chloride 250 ml @ 0.938 mls/ hr Q24H IV 05/18/24 16:00 05/28/24 09:55 0.938 MLS/HR Amiodarone HCl 250 ml @ 16.667 mls/ hr Q15H IV 05/18/24 22:30 05/20/24 20:59 16.667 MLS/HR Potassium Chloride 100 ml @ 50 mls/hr Q2H IV 05/22/24 12:30 05/22/24 16:29 Cancel Micafungin Sodium 100 mg/Sodium Chloride 100 ml @ 100 mls/hr DAILY IV 05/23/24 10:00 05/28/24 11:09 100 MLS/HR Diagnostic Test (Pha) 1 strip Q6HR 05/24/24 12:00 05/28/24 12:51 1 STRIP Insulin Human Regular FOLLOW SLIDING SCALE Q6HR SC 05/24/24 12:00 05/28/24 06:17 2 UNITS Dextrose 50 ml UD IV 05/24/24 12:00 Vancomycin HCl 250 ml @ 250 mls/hr DAILY@1500 IV 05/25/24 15:00 05/27/24 14:43 250 MLS/HR Fat Emulsion Intravenous 100 ml/Sodium Phosphate 40 meq/ Potassium Acetate 20 meq/Calcium Gluconate 2.3 meq/ Magnesium Sulfate 12 meq/ Multivitamins 10 ml/Insulin Human Regular 18 units/ Amino Acids/ Dextrose/Purified Water 1,388.1262 ml @ 58 mls/hr [id number] IV 05/27/24 20:00 05/28/24 19:59 05/27/24 20:03 58 MLS/HR Fat Emulsion Intravenous 100 ml/Sodium Phosphate 20 meq/ Potassium Acetate 20 meq/Magnesium Sulfate 16 meq/ Multivitamins 10 ml/Insulin Human Regular 20 units/ Amino Acids/ Dextrose/Purified Water 1,479.2 ml @ 62 mls/hr [id number] IV 05/28/24 20:00 05/29/24 19:59 Laboratory Results Laboratory Tests 05/28/24 04:00 Chemistry Test 05/28/24 04:00 Albumin 2.4 g/dL (3.2-4.8) L Calcium Level 8.5 mg/dL (8.7-10.4) L Magnesium Level 2.0 mg/dL (1.6-2.6) Phosphorus Level 3.7 mg/dL (2.4-5.1) Total Protein 5.2 g/dL (5.7-8.2) L LFT Test 05/28/24 04:00 Alanine Aminotransferase (ALT) 19 U/L (7-40) Alkaline Phosphatase 109 U/L (46-116) Aspartate Amino Transferase (AST) 31 U/L (13-40) Total Bilirubin 2.3 mg/dL (0.2-1.0) H Urinalysis Test 05/11/24 16:18 Urine Color Yellow (Yellow) Urine Clarity Clear (Clear) Urine pH 6.0 (5.0-9.0) Urine Specific [place] 1.020 (1.001-1.035) Urine Protein 1+ (Negative) H Urine Ketones 4+ (Negative) H Urine Blood Trace /uL (Negative) H Urine Nitrite Negative (Negative) Urine Bilirubin Negative (Negative) Urine Urobilinogen Normal mg/dL (Negative) Urine Leukocyte Esterase Negative /uL (Negative) Urine RBC 2 /hpf (0 - 4) Urine WBC 2 /hpf (0 - 5) Urine Squamous Epithelial Cells Few /hpf (<5) Urine Bacteria None seen /hpf (None Seen) Urine Mucus Few (None Seen) Urine Glucose Normal mg/dL (Normal) Blood Gas Results Test 05/28/24 06:10 Arterial Blood pH 7.453 (7.350-7.450) FiO2 % 30.0 Microbiology Microbiology Date/Time Source Procedure Growth Status 05/24/24 17:06 Other Gram Stain - Final Resulted 05/24/24 17:06 Other Anaerobic Culture - Preliminary Resulted 05/24/24 17:06 Other Aerobic Culture - Preliminary Resulted 05/17/24 01:52 Urine - [place] Urine Culture - Final Yeast, not Shawanda albicans Complete 05/16/24 22:55 Blood Blood Culture - Final NO GROWTH AFTER 5 DAYS OF INCUBATION. Complete 05/16/24 14:20 Sputum Gram Stain - Final Complete 05/16/24 14:20 Respiratory Culture - Final Yeast, not Shawanda albicans Complete Assessment/Plan Assessment/Plan Robotic surgery hysterectomy and salpingo-oophorectomy complicated by Acute CVA Acute CVA w LUE hemiparesis Bowel perforation with repeat exploratory laparotomy with ileostomy creation History of breast cancer with bilateral mastectomies Afib RVR Acute hypoxic respiratory failure Mechanical intubation Exploratory laparotomy, drainage of intraabdominal abscess, thorough peritoneal lavage with reinforcement of the anastomotic location of the previous anastomosis as well as a diverting loop ileostomy on 05/24/24 Anemia Hb 7.0 Plan Mechanical ventilation TPN IV antibiotics: Vancomycin + Meropenem No vasopressors Sedation prn GI Prophylaxis: Protonix Transfuse blood prn Plan discussed with: Other Date of Service: May 28, 2024 Billing Provider: BARI MOORE MD Common Visit Codes: NOT BILLABLE BARI MOORE MD May 28, 2024 15:32
--- NOTE | 2024-05-28 16:51 | DVHPN2 ---
Progress Note Date Seen: May 28, 2024 Has the PT tested + for MRSA If YES, has PT been informed?: No Medical Necessity Reason Pt with a Central, PICC or Fol: Yes The following are medically ne: Muhammad Catheter Reason for muhammad catheter: Strict I&O Objective vital signs Vital Sign Date Time Temp Pulse Resp B/P (MAP) Pulse Ox O2 Delivery O2 Flow Rate FiO2 05/28/24 16:41 92 20 155/58 (90) 97 30 05/28/24 15:30 99.5 211.1 05/28/24 14:00 Mechanical Ventilator+ Total Intake and Output 05/27/24 05/27/24 05/28/24 15:00 23:00 07:00 Intake Total 1937.556 ml 695 ml 850 ml Output Total 1695 ml 1000 ml Balance 1937.556 ml -1000 ml -150 ml medications Current Medications Medications Dose Ordered Sig/Nora Route Start Time Stop Time Status Last Admin Dose Admin Ondansetron HCl 4 mg Q4HP PRN IV 05/07/24 16:30 05/16/24 05:55 4 MG Morphine Sulfate 2 mg Q4HPRN PRN IV 05/15/24 17:45 05/16/24 05:56 2 MG Fentanyl Citrate 250 ml @ 2.5 mls/hr Q24H IV 05/16/24 14:00 05/28/24 09:51 30 MLS/HR Midazolam HCl 50 ml @ 1 mls/hr Q24H IV 05/16/24 21:00 05/28/24 13:16 14 MLS/HR Phenylephrine HCl 250 ml @ 30 mls/hr Q8H20M IV 05/16/24 21:15 05/17/24 06:03 30 MLS/HR Acetaminophen 650 mg Q6HPRN PRN NM 05/16/24 22:30 05/16/24 22:30 650 MG Pantoprazole Sodium 40 mg DAILY IV 05/17/24 10:00 05/28/24 10:26 40 MG Amino Acids 0 ml @ 0 mls/hr PER PHARMACY IV 05/17/24 08:30 Meropenem 50 ml @ 17 mls/hr Q8HR IV 05/18/24 14:00 05/28/24 14:47 17 MLS/HR Vancomycin HCl 0 ml @ 0 mls/hr UD IV 05/18/24 07:45 Metoprolol Tartrate 1.25 mg Q6HPRN PRN IV 05/18/24 16:00 05/18/24 16:17 1.25 MG Norepinephrine Bitartrate 32 mg/ Sodium Chloride 250 ml @ 0.938 mls/ hr Q24H IV 05/18/24 16:00 05/28/24 09:55 0.938 MLS/HR Amiodarone HCl 250 ml @ 16.667 mls/ hr Q15H IV 05/18/24 22:30 05/20/24 20:59 16.667 MLS/HR Potassium Chloride 100 ml @ 50 mls/hr Q2H IV 05/22/24 12:30 05/22/24 16:29 Cancel Micafungin Sodium 100 mg/Sodium Chloride 100 ml @ 100 mls/hr DAILY IV 05/23/24 10:00 05/28/24 11:09 100 MLS/HR Diagnostic Test (Pha) 1 strip Q6HR 05/24/24 12:00 05/28/24 12:51 1 STRIP Insulin Human Regular FOLLOW SLIDING SCALE Q6HR SC 05/24/24 12:00 05/28/24 06:17 2 UNITS Dextrose 50 ml UD IV 05/24/24 12:00 Vancomycin HCl 250 ml @ 250 mls/hr DAILY@1500 IV 05/25/24 15:00 05/27/24 14:43 250 MLS/HR Fat Emulsion Intravenous 100 ml/Sodium Phosphate 40 meq/ Potassium Acetate 20 meq/Calcium Gluconate 2.3 meq/ Magnesium Sulfate 12 meq/ Multivitamins 10 ml/Insulin Human Regular 18 units/ Amino Acids/ Dextrose/Purified Water 1,388.1262 ml @ 58 mls/hr [id number] IV 05/27/24 20:00 05/28/24 19:59 05/27/24 20:03 58 MLS/HR Fat Emulsion Intravenous 100 ml/Sodium Phosphate 20 meq/ Potassium Acetate 20 meq/Magnesium Sulfate 16 meq/ Multivitamins 10 ml/Insulin Human Regular 20 units/ Amino Acids/ Dextrose/Purified Water 1,479.2 ml @ 62 mls/hr [id number] IV 05/28/24 20:00 05/29/24 19:59 laboratory and microbiology Laboratory Tests 05/28/24 04:00 Test 05/28/24 04:00 Range/Units Serum Glucose 115 H 74-106 mg/dL Microbiology Date/Time Source Procedure Growth Status 05/24/24 17:06 Other Gram Stain - Final Resulted 05/24/24 17:06 Other Anaerobic Culture - Preliminary Resulted 05/24/24 17:06 Other Aerobic Culture - Preliminary Resulted 05/17/24 01:52 Urine - [place] Urine Culture - Final Yeast, not Shawanda albicans Complete 05/16/24 22:55 Blood Blood Culture - Final NO GROWTH AFTER 5 DAYS OF INCUBATION. 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 BETTER VASOPRESSOR OFF WBC WNL ABD SOFT DRAIN IN PLACE SEROSANGUINEOUS RIGHT 50CC LESS PURULENT, LEFT 40 CC SEROSANGUINEOUS DRESSING DRY CONDITION GUARDED ILEOSTOMY VIABLE AND FUNCTIONAL FAMILY UPDATED NURSE AT BEDSIDE CONTINUE SUPPORTIVE CARE Plan discussed with: Other Dietary Evaluation Review Comments: 1) Advance pt diet when medically feasible to a 2gmNa diet modified per CONTACT LENS FITTER recommendations 2) Continue current plan of care Expected Outcomes/Goals: 1) Pt diet to advance 2) F/U in 2-3 days SHEY COVARRUBIAS MD May 28, 2024 16:51
--- NOTE | 2024-05-28 19:42 | DVHPN2 ---
Progress Note - Dictate Date Seen: May 28, 2024 Has the PT tested + for MRSA If YES, has PT been informed?: No Medical Necessity Reason Pt with a Central, PICC or Fol: Yes The following are medically ne: Muhammad Catheter Reason for muhammad catheter: Strict I&O Subjective Patient seen and examined at bedside. Sedated, intubated on mechanical ventilator. Overnight events reviewed. vital signs Vital Sign Date Time Temp Pulse Resp B/P (MAP) Pulse Ox O2 Delivery O2 Flow Rate FiO2 05/28/24 18:26 96 23 142/52 (82) 98 30 05/28/24 16:00 Mechanical Ventilator+ 05/28/24 15:30 99.5 211.1 Total Intake and Output 05/27/24 05/27/24 05/28/24 15:00 23:00 07:00 Intake Total 1937.556 ml 695 ml 850 ml Output Total 1695 ml 1000 ml Balance 1937.556 ml -1000 ml -150 ml medications Current Medications Medications Dose Ordered Sig/Nora Route Start Time Stop Time Status Last Admin Dose Admin Ondansetron HCl 4 mg Q4HP PRN IV 05/07/24 16:30 05/16/24 05:55 4 MG Morphine Sulfate 2 mg Q4HPRN PRN IV 05/15/24 17:45 05/16/24 05:56 2 MG Fentanyl Citrate 250 ml @ 2.5 mls/hr Q24H IV 05/16/24 14:00 05/28/24 18:27 30 MLS/HR Midazolam HCl 50 ml @ 1 mls/hr Q24H IV 05/16/24 21:00 05/28/24 17:12 14 MLS/HR Phenylephrine HCl 250 ml @ 30 mls/hr Q8H20M IV 05/16/24 21:15 05/17/24 06:03 30 MLS/HR Acetaminophen 650 mg Q6HPRN PRN GA 05/16/24 22:30 05/16/24 22:30 650 MG Pantoprazole Sodium 40 mg DAILY IV 05/17/24 10:00 05/28/24 10:26 40 MG Amino Acids 0 ml @ 0 mls/hr PER PHARMACY IV 05/17/24 08:30 Meropenem 50 ml @ 17 mls/hr Q8HR IV 05/18/24 14:00 05/28/24 14:47 17 MLS/HR Vancomycin HCl 0 ml @ 0 mls/hr UD IV 05/18/24 07:45 Metoprolol Tartrate 1.25 mg Q6HPRN PRN IV 05/18/24 16:00 05/18/24 16:17 1.25 MG Norepinephrine Bitartrate 32 mg/ Sodium Chloride 250 ml @ 0.938 mls/ hr Q24H IV 05/18/24 16:00 05/28/24 09:55 0.938 MLS/HR Amiodarone HCl 250 ml @ 16.667 mls/ hr Q15H IV 05/18/24 22:30 05/20/24 20:59 16.667 MLS/HR Potassium Chloride 100 ml @ 50 mls/hr Q2H IV 05/22/24 12:30 05/22/24 16:29 Cancel Micafungin Sodium 100 mg/Sodium Chloride 100 ml @ 100 mls/hr DAILY IV 05/23/24 10:00 05/28/24 11:09 100 MLS/HR Diagnostic Test (Pha) 1 strip Q6HR 05/24/24 12:00 05/28/24 18:22 1 STRIP Insulin Human Regular FOLLOW SLIDING SCALE Q6HR SC 05/24/24 12:00 05/28/24 18:24 2 UNITS Dextrose 50 ml UD IV 05/24/24 12:00 Vancomycin HCl 250 ml @ 250 mls/hr DAILY@1500 IV 05/25/24 15:00 05/28/24 17:15 250 MLS/HR Fat Emulsion Intravenous 100 ml/Sodium Phosphate 40 meq/ Potassium Acetate 20 meq/Calcium Gluconate 2.3 meq/ Magnesium Sulfate 12 meq/ Multivitamins 10 ml/Insulin Human Regular 18 units/ Amino Acids/ Dextrose/Purified Water 1,388.1262 ml @ 58 mls/hr [id number] IV 05/27/24 20:00 05/28/24 19:59 05/27/24 20:03 58 MLS/HR Fat Emulsion Intravenous 100 ml/Sodium Phosphate 20 meq/ Potassium Acetate 20 meq/Magnesium Sulfate 16 meq/ Multivitamins 10 ml/Insulin Human Regular 20 units/ Amino Acids/ Dextrose/Purified Water 1,479.2 ml @ 62 mls/hr [id number] IV 05/28/24 20:00 05/29/24 19:59 objective Gen.: Patient lying in bed in medical ICU. Sedated, intubated on mechanical ventilator. Head: Normocephalic, atraumatic. Eyes: PERRLA. Ears: Normal external anatomy. Throat: Endotracheal tube and orogastric tube in place. Neck: Supple, trachea midline. Chest: Transmitted breath sounds bilaterally. Decreased air entry bilaterally. No wheezing. Bibasilar crackles. Cardio vascular: Positive S1, positive S2. Regular rate and rhythm. Abdomen: Positive bowel sounds in all 4 quadrants. Soft, nontender, nondistended. : Muhammad in place. Normal external genitalia. Rectal: Deferred Skin: Warm, dry. Intact. Extremities: 2+ radial pulses bilaterally. No lower extremity edema. Neuro: Sedated. laboratory and microbiology Laboratory Tests 05/28/24 04:00 Test 05/28/24 04:00 Range/Units Serum Glucose 115 H 74-106 mg/dL Assessment/Plan Impression: Acute hypoxic respiratory failure On mechanical ventilator Abdominal pain due to recent robotic surgery hysterectomy and salpingo- oophorectomy History of breast cancer with bilateral mastectomies History of bowel surgery and ileostomy Anemia due to hemorrhage on hemodilution Shock Chronic pain syndrome Anemia Atrial fibrillation with RVR Bowel perforation with repeat exploratory laparotomy with ileostomy creation Events: Patient remains on sedation with fentanyl and Versed drips. Off Levophed. Currently tapering sedation. She did not tolerate. Became tachypneic and tachycardic Will start Precedex drip for agitation and re-attempt to taper down sedation. Plan for CPAP trial in the morning with pressure support of eight, peep of 5 cm of water. Monitor hemoglobin closely. Hemoglobin is basically being redrawn. Repeat hemoglobin was 7.0 grams/deciliter. Transfuse if less than 7.0 grams/deciliter. ABG reviewed. Slight alkalemia due to respiratory alkalosis. Chest x-ray imaging report reviewed. Pulmonary vascular congestion. Devices in place. Right basilar opacities. No pleural effusion or pneumothorax. Rest of plan as outlined below. Plan: s/p intubation on mechanical ventilator CXR image and report reviewed. Devices in place. Pulmonary vascular congestion. Right bibasilar airspace opacities. No pleural effusion or pneumothorax. ABG reviewed. Compensated On assist control with a respiratory rate of 20, tidal volume 450, peep of Five, FiO2 of 30%. Titrate FIO2 to keep O2 saturation above 92%. VAP bundle Daily ABG and CXR while intubated. Sedate for ventilatory synchrony On pressors for hemodynamic support. On Levophed at 2 micrograms/minute Titrate to keep MAP above 65 mmHg/SBP above 90 mmHg. Continue antibiotics. F/u cultures. Monitor hemoglobin Transfuse if less than 7.0 grams/deciliter On IV fluids with lactated Ringer's at 75 mL an hour. Monitor renal function due to Acute kidney injury. Monitor electrolytes. Supplement as necessary. Surgery recommendations appreciated. Nutritional support. On TPN Accucheks, ISS. GI/DVT prophylaxis. Condition: Critical Prognosis: Poor given multiple comorbidities. Rest of plan per hospitalist and other consultants. A total of 35 minutes of critical care time was spent reviewing the patient record, examining the patient, making a diagnostic and therapeutic plan, discussing this plan with the medical personnel, following up on diagnostic studies and following the patient for clinical stability excluding any and all procedures. At least 50% of this time was spent in direct, [id number] contact. Thank you Dr Reid for allowing me to participate in this patient's care. Further recommendations will depend on patient's clinical course. Please do not hesitate to contact me if you have any questions or concerns. This medical document was created using an electronic medical record system with [employer] dictation system. Although this document has been carefully reviewed, there may still be some phonetic and typographical errors. These areas are purely typographical due to imperfections of the software programs, and do not reflect any compromise in the patient's medical care. Dietary Evaluation Review Comments: 1) Advance pt diet when medically feasible to a 2gmNa diet modified per PROPERTY SUPERVISOR recommendations 2) Continue current plan of care Expected Outcomes/Goals: 1) Pt diet to advance 2) F/U in 2-3 days Plan discussed with: Other (RN Jessica, RT MD Yuki) Critical Care Time(min): 35 RG LEONE MD May 28, 2024 19:42
[2024-05-28] MEDS: TPN PER PHARMACY IV NR (20:14)
--- NOTE | 2024-05-28 22:04 | DVHPN2 ---
Chief Complaints Patient reports: No new complaints (sedated on vent), Other (continued intubation) Nursing reports: No new complaints (continued anemia) Objective Vitals Vital Signs Date Time Temp Pulse Resp B/P (MAP) Pulse Ox O2 Delivery O2 Flow Rate FiO2 05/28/24 20:42 92 20 131/44 (73) 100 30 05/28/24 18:00 Mechanical Ventilator+ 05/28/24 15:30 99.5 211.1 Medications Current Medications Medications (Trade) Dose Ordered Sig/Nora Route PRN Reason Start Time Stop Time Status Last Admin Dexmedetomidine HCl 400 mcg/ Dextrose 100 ml @ 3.17 mls/hr Q24H IV 05/28/24 20:45 Fat Emulsion Intravenous 100 ml/Sodium Phosphate 20 meq/ Potassium Acetate 20 meq/Magnesium Sulfate 16 meq/ Multivitamins 10 ml/Insulin Human Regular 20 units/ Amino Acids/ Dextrose/Purified Water 1,479.2 ml @ 62 mls/hr [id number] IV 05/28/24 20:00 05/29/24 19:59 05/28/24 20:14 General: Normal Head/Eyes: Normal ENT: Normal Neck: Normal Lungs: Normal Cardiovascular: Normal Abdominal: Normal (Wounds clean dry and intact iliostomy billous stool , drains one serosang , the other less billous impromved) Abdomen quadrants: RUQ Absent bowel sounds (+ BS) Musculoskeletal: Normal Extremities: Normal Skin: Normal Neurological: Normal (appropriate grimous and sensation) Studies Laboratory Tests 05/28/24 04:00 Test 05/28/24 04:00 Range/Units Serum Glucose 115 H 74-106 mg/dL Ass/Plan Assessment Overall improved reportedly Curator Of Education team will try to wean of Vent again tomorrow. Condition Guarded some Improved sepsis Bowel perforation repaired x 2, last ileostomy placed Anemia Hx colon CA Hx Breast CA Plan Will update patient's sister Lianet in AM .... Discussed with Dr Lake more optimistic but prognosis slightly improved. ANDRES PAZ DO May 28, 2024 22:04
[2024-05-29] VITALS (113 sets, daily range): BP systolic 56–195; BP diastolic 18–82; PULSE 76–109; RESP 12–28; TEMP 99–100.2; O2SAT 97–100
--- NOTE | 2024-05-29 04:30 | DVH ---
EXAM: XY CHEST PORTABLE Indication:vent Technique: Single frontal view of the chest was obtained Comparison: XY CHEST PORTABLE on DOS: 05/28/24, XY CHEST PORTABLE on DOS: 05/27/24, XY CHEST PORTABLE on DOS: 05/26/24, XY CHEST PORTABLE on DOS: 05/24/24, XY CHEST XRAY 1 VIEW on DOS: 05/23/24 FINDINGS: Lines and Tubes: Stable endotracheal tube, enteric tube and right central venous catheters compared t o prior exam. Lungs: Stable right basilar opacity. Pleura: No effusion. No pneumothorax. Cardiomediastinal contours: Unremarkable Bones: No acute osseous abnormality. IMPRESSION: No significant change compared to prior exam.
[2024-05-29 04:45] LABS: Alanine Aminotransferase 21 U/L (7-40); Albumin 2.4 g/dL (3.2-4.8); Alkaline Phosphatase 117 U/L (46-116); Anion Gap 5 (5-15); Aspartate Aminotransferase 29 U/L (13-40); BUN/Creatinine Ratio 57.8 (10.0-20.0); Blood Urea Nitrogen 26 mg/dL (9-23); Calcium 8.4 mg/dL (8.7-10.4); Carbon Dioxide 26 mmol/L (20-31); Chloride 107 mmol/L (98-107); Glucose 115 mg/dL (74-106); Potassium 3.5 mmol/L (3.5-5.1); Sodium 138 mmol/L (136-145)
[2024-05-29 04:46] LABS: Bilirubin, Total 2.3 mg/dL (0.2-1.0); Phosphorus 3.5 mg/dL (2.4-5.1); Total Protein 5.2 g/dL (5.7-8.2)
[2024-05-29 06:53] LABS: Basophils # (auto) 0 10 ^3/uL (0-0.2); Basophils % (auto) 0.3 % (0.0-2.0); Eosinophils # (auto) 0.1 10 ^3/uL (0-0.8); Lymphocytes # (auto) 0.5 10 ^3/uL (0.4-5.4); Mean Corpuscular Volume 88.1 fL (80.0-100.0); Monocytes # (auto) 0.7 10 ^3/uL (0-1.3); Nucleated Red Blood Cells % 0.2 %
[2024-05-29 06:55] LABS: Eosinophils % (auto) 1.5 % (0.0-7.0); Hematocrit 17.7 % (36.0-46.0); Lymphocytes % (auto) 7.8 % (10.0-50.0); Mean Corpuscular Hemoglobin 29.6 pg (28.0-32.0); Mean Corpuscular Hgb Conc. 33.6 g/dL (32.0-36.0); Monocytes % (auto) 10.7 % (0.0-12.0); Neutrophils # (auto) 5.4 10 ^3/uL (1.6-8.6); Neutrophils % (auto) 79.7 % (37.0-80.0); Platelet Count (auto) 251 10^3/uL (140-450); Red Blood Cells 2.01 10^6/uL (4.0-5.20); White Blood Cell 6.8 10^3/uL (4.4-10.8)
[2024-05-29 06:58] LABS: Hemoglobin 5.9 g/dL (12.2-16.2)
--- NOTE | 2024-05-29 08:29 | DVHPN2 ---
Subjective Intubated and sedated Hb 5.9 On Versed and Fentanyl FiO2 30%, PEEP:5 Reviewed: Care Plan, H&P, Labs, Medications, Previous Orders, Radiology Changes from previous H/P or p: Changes General: Per HPI Eyes: No Pain, No Vision change, No Conjunctivae inflammation, No Eyelid inflammation, No Other, No Redness ENT: No Ear pain, No Ear discharge, No Nose pain, No Nose discharge, No Nose congestion, No Mouth pain, No Mouth swelling, No Throat pain, No Throat swelling, No Other Cardiovascular: No Chest Pain, No Palpitations, No Orthopnea, No Paroxysmal Noc. Dyspnea, No Edema, No Lt Headedness, No Other Respiratory: No Cough, No Dry, No Shortness of breath, No SOB with excertion, No Wheezing, No Hemoptysis, No Pleuritic Pain, No Sputum, No Other Gastrointestinal: Nausea Genitourinary: No Dysuria, No Frequency, No Incontinence, No Hematuria, No Retention, No Other Musculoskeletal: No other, No neck pain, No shoulder pain, No arm pain, No back pain, No hand pain, No leg pain, No foot pain Skin: No Rash, No Lesions, No Jaundice, No Bruising, No Other Objective Vitals Vital Signs Date Time Temp Pulse Resp B/P (MAP) Pulse Ox O2 Delivery O2 Flow Rate FiO2 05/29/24 07:45 100 22 136/37 (70) 100 30 05/29/24 07:00 100.0 212.0 05/29/24 06:00 Mechanical Ventilator+ Intake/Output Intake and Output 05/29/24 07:00 Intake Total 2092.189 ml Output Total 2540 ml Balance -447.811 ml IV Total 2092.189 ml Output Urine Total 2300 ml Gastric Drainage Total 40 ml Drainage Total 105 ml Other 95 ml # Voids 75 General Appearance: moderate distress, Other (Intubated and sedated) HEENT: Atraumatic, PERRLA, Other (Pupils equal, 4 mm, reactive to light to 3 mm) Lungs: Clear to auscultation, Normal air movement, Other (Mechanical ventilation) Cardiovascular: Regular rate, Normal S1, Normal S2 Abdomen: Other (Ileostomy with drainage. EVARISTO to right lower quadrant with thick serosanguineous secretions.) Musculoskeletal: Other (Unable to assess) Extremities: No edema, Other (Poor cap refill to left lower extremity with some cyanosis noted) Neuro: Other (Left arm weakness including rn oncology research and proximal muscles) Skin: Dry, Intact, Other (Surgical incision dry and intact) Psych/Mental Status: Mental status NL, Mood NL Medications Current Medications Medications Dose Ordered Sig/Nora Route Start Time Stop Time Status Last Admin Dose Admin Ondansetron HCl 4 mg Q4HP PRN IV 05/07/24 16:30 05/16/24 05:55 4 MG Morphine Sulfate 2 mg Q4HPRN PRN IV 05/15/24 17:45 05/16/24 05:56 2 MG Fentanyl Citrate 250 ml @ 2.5 mls/hr Q24H IV 05/16/24 14:00 05/29/24 02:13 30 MLS/HR Midazolam HCl 50 ml @ 1 mls/hr Q24H IV 05/16/24 21:00 05/29/24 07:55 10 MLS/HR Phenylephrine HCl 250 ml @ 30 mls/hr Q8H20M IV 05/16/24 21:15 05/17/24 06:03 30 MLS/HR Acetaminophen 650 mg Q6HPRN PRN CA 05/16/24 22:30 05/16/24 22:30 650 MG Pantoprazole Sodium 40 mg DAILY IV 05/17/24 10:00 05/28/24 10:26 40 MG Amino Acids 0 ml @ 0 mls/hr PER PHARMACY IV 05/17/24 08:30 Meropenem 50 ml @ 17 mls/hr Q8HR IV 05/18/24 14:00 05/29/24 05:43 17 MLS/HR Vancomycin HCl 0 ml @ 0 mls/hr UD IV 05/18/24 07:45 Metoprolol Tartrate 1.25 mg Q6HPRN PRN IV 05/18/24 16:00 05/18/24 16:17 1.25 MG Norepinephrine Bitartrate 32 mg/ Sodium Chloride 250 ml @ 0.938 mls/ hr Q24H IV 05/18/24 16:00 05/28/24 09:55 0.938 MLS/HR Amiodarone HCl 250 ml @ 16.667 mls/ hr Q15H IV 05/18/24 22:30 05/20/24 20:59 16.667 MLS/HR Potassium Chloride 100 ml @ 50 mls/hr Q2H IV 05/22/24 12:30 05/22/24 16:29 Cancel Micafungin Sodium 100 mg/Sodium Chloride 100 ml @ 100 mls/hr DAILY IV 05/23/24 10:00 05/28/24 11:09 100 MLS/HR Diagnostic Test (Pha) 1 strip Q6HR 05/24/24 12:00 05/29/24 05:47 1 STRIP Insulin Human Regular FOLLOW SLIDING SCALE Q6HR SC 05/24/24 12:00 05/28/24 18:24 2 UNITS Dextrose 50 ml UD IV 05/24/24 12:00 Vancomycin HCl 250 ml @ 250 mls/hr DAILY@1500 IV 05/25/24 15:00 05/28/24 17:15 250 MLS/HR Fat Emulsion Intravenous 100 ml/Sodium Phosphate 20 meq/ Potassium Acetate 20 meq/Magnesium Sulfate 16 meq/ Multivitamins 10 ml/Insulin Human Regular 20 units/ Amino Acids/ Dextrose/Purified Water 1,479.2 ml @ 62 mls/hr [id number] IV 05/28/24 20:00 05/29/24 19:59 05/28/24 20:14 62 MLS/HR Dexmedetomidine HCl 400 mcg/ Dextrose 100 ml @ 3.17 mls/hr Q24H IV 05/28/24 20:45 Laboratory Results Laboratory Tests 05/29/24 04:00 Chemistry Test 05/29/24 04:00 Albumin 2.4 g/dL (3.2-4.8) L Calcium Level 8.4 mg/dL (8.7-10.4) L Magnesium Level 2.0 mg/dL (1.6-2.6) Phosphorus Level 3.5 mg/dL (2.4-5.1) Total Protein 5.2 g/dL (5.7-8.2) L LFT Test 05/29/24 04:00 Alanine Aminotransferase (ALT) 21 U/L (7-40) Alkaline Phosphatase 117 U/L (46-116) H Aspartate Amino Transferase (AST) 29 U/L (13-40) Total Bilirubin 2.3 mg/dL (0.2-1.0) H Urinalysis Test 05/11/24 16:18 Urine Color Yellow (Yellow) Urine Clarity Clear (Clear) Urine pH 6.0 (5.0-9.0) Urine Specific [place] 1.020 (1.001-1.035) Urine Protein 1+ (Negative) H Urine Ketones 4+ (Negative) H Urine Blood Trace /uL (Negative) H Urine Nitrite Negative (Negative) Urine Bilirubin Negative (Negative) Urine Urobilinogen Normal mg/dL (Negative) Urine Leukocyte Esterase Negative /uL (Negative) Urine RBC 2 /hpf (0 - 4) Urine WBC 2 /hpf (0 - 5) Urine Squamous Epithelial Cells Few /hpf (<5) Urine Bacteria None seen /hpf (None Seen) Urine Mucus Few (None Seen) Urine Glucose Normal mg/dL (Normal) Blood Gas Results Test 05/29/24 06:15 Arterial Blood pH 7.463 (7.350-7.450) FiO2 % 30.0 Microbiology Microbiology Date/Time Source Procedure Growth Status 05/24/24 17:06 Other Gram Stain - Final Resulted 05/24/24 17:06 Other Anaerobic Culture - Preliminary Resulted 05/24/24 17:06 Other Aerobic Culture - Preliminary Resulted 05/17/24 01:52 Urine - [place] Urine Culture - Final Yeast, not Shawanda albicans Complete 05/16/24 22:55 Blood Blood Culture - Final NO GROWTH AFTER 5 DAYS OF INCUBATION. Complete 05/16/24 14:20 Sputum Gram Stain - Final Complete 05/16/24 14:20 Respiratory Culture - Final Yeast, not Shawanda albicans Complete Assessment/Plan Assessment/Plan Robotic surgery hysterectomy and salpingo-oophorectomy complicated by Acute CVA Acute CVA w LUE hemiparesis Bowel perforation with repeat exploratory laparotomy with ileostomy creation History of breast cancer with bilateral mastectomies Afib RVR Acute hypoxic respiratory failure Mechanical intubation Exploratory laparotomy, drainage of intraabdominal abscess, thorough peritoneal lavage with reinforcement of the anastomotic location of the previous anastomosis as well as a diverting loop ileostomy on 05/24/24 Anemia Plan Mechanical ventilation TPN IV antibiotics: Vancomycin + Meropenem No vasopressors Sedation prn GI Prophylaxis: Protonix Transfuse blood prn 05/29/24: Transfuse 1 unit RBCs for Hb 5.9 Lasix 20 mg IV x1 Check Hb after transfusion Off pressors Antibiotics: Meropenem, Vanco, Micafungin Amiodarone IV Taper sedation down as tolerated CXR: Clear TPN Protonix Plan discussed with: Other My Orders Orders - BARI MOORE MD Procedure Category Date Status Time Chest Portable XY 05/29/24 Resulted 06:00 Abg W/ Co-Ox RT 05/29/24 Logged 06:00 Date of Service: May 29, 2024 Billing Provider: BARI MOORE MD Common Visit Codes: NOT BILLABLE BARI MOORE MD May 29, 2024 08:29
--- NOTE | 2024-05-29 10:52 | DVHPN2 ---
Progress Note - Dictate Date Seen: May 29, 2024 Has the PT tested + for MRSA If YES, has PT been informed?: No Medical Necessity Reason Pt with a Central, PICC or Fol: Yes The following are medically ne: Muhammad Catheter Reason for muhammad catheter: Strict I&O Subjective Ms. Barrera is a 68 years old right-handed female with a history of hypertension, anemia, breast cancer, she was admitted to the [facility] on 05/07/2024 for scheduled hysterectomy and oophorectomy. Post surgically, she woke up with left-sided weakness, and MRI showed multiple stroke in the right MCA territory. During the hospital stay, she developed fall perforation, and she went through abdominal surgery on 05/16/2024 Because of ongoing intraperitoneal sepsis/peritonitis, the patient went through exploratory laparotomy on 05/24/2024 I have seen and examined the patient in the ICU, I have discussed with her nurse. She is respond to painful stimuli, possibly to touch as well She was low-grade fever Discussed with Mynor Versed 10 mg/hour, fentanyl 250 mcg/minute, CBC, 05/16/2024: Metabolic acidosis, 05/17/2024: Metabolic acidosis, 05/18/2024: Metabolic acidosis URINALYSIS, 05/11/2024: WBC: 2, URINE LEUKOCYTE ESTERASE: NEGATIVE WBC/HB/PLT/MCV, 05/04: 5.1/10.7/119/98.3, 05/17/2024: 20.4/8.5/205/86.9 05/19/2024: 12.2/11.1/125/86.2, 05/20/2024: 8.1/10.5/113/86.1, 05/21/2024: 6.6/10.5/106/86.5, 05/26/2024: 9.6/9.2/184/93.8, 05/28/2024: 7.5/7/223/89.6, 05/29/24: 6.8/5.9/251/88.1 PT/INR/FTT, 05/16/2024: 17.4/1.71/34.2 K, 05/09/2024: 3.9, 05/10/24:3.1, 05/12/2024: 3.4, 05/16/2024: 2.8 Lactic acid, 05/15/2024: 1.6, 05/16/2024: 1.5 HCO3, 05/23/2024: 35 Bun.Cr, 05/23/2024: 37/0.75 LIVER FUNCTION TESTS, 05/12/2024: UNREMARKABLE, 05/16/2024: Unremarkable TBI/AST/ALT/AP, 05/18/2024: 1.2//47, 05/19/2024: 3.1/04/23/2067, 05/23/2024: 3.1/48/35/170, 05/29/2024: 2.3/29/21/117 TG/HDL/LDL/HDL, 05/12/2024: 196/134/75/23 TSH, 05/12/2024: 2.01 Echocardiogram 05/14/2024: lvef 65% by visual estimate mild mitral regurg RV enlarged mild left atrium enlarged mild Carotid Doppler, 05/11/2024: 1. Occlusion of the right proximal ICA. 2. Greater than 50% stenosis of the right proximal ECA. 3. Greater than 50% stenosis of the left proximal ICA CT head, 05/11/2024: 1. Chronic lacunar infarct in right centrum semiovale. 2. Chronic periventricular ischemic changes. 3. Cerebral and cerebellar atrophy, likely age-related. 4. Advised further evaluation with MRI brain without contrast if clinically indicated CT abdomen/pelvis, 05/15/2024: Small bowel obstruction with evidence of perforation including free intraperitoneal fluid and air. Extensive subcutaneous emphysema likely secondary to bowel perforation CT abdomen/pelvis, 05/16/2024: 1. Sequelae of recent postsurgical changes as described above. Correlate with surgical history. 2. Pneumoperitoneum and free fluid in the abdomen and pelvis. 3. Large collection containing fluid and gas, predominantly in the right hemiabdomen. There is GI contrast extending into this collection from an adjacent small bowel loop. There is a component of this collection extending adjacent to the anterior superior aspect of the liver. 4. Moderate right hydronephrosis and hydroureter. The distal right ureter appears to be compressed by the large fluid collection in the right hemiabdomen. No obstructing calculus. 5. Dilated small bowel loops in the left hemiabdomen with suspected small-bowel obstruction. 6. Prominent subcutaneous edema in the ventral abdominal wall and extending caudally into the inguinal regions bilaterally, peroneal region, and anterior aspect of the left thigh. 7. Small bilateral pleural effusions with overlying atelectasis. 8. Additional findings as detailed above. CT abdomen, 05/23/2024: Postsurgical changes of the ventral abdomen with interval improvement in the diffuse soft tissue edema and ventral abdominal, pelvis and upper thigh subcutaneous emphysema. Interval significant decrease in size of the loculated collection within the right hemiabdomen and pelvis with small residual. Interval placement of drainage catheters terminating over the left upper abdominal quadrant and left hemipelvis as detailed above. Interval development of small to moderate ascites. Wall thickening of fluid-filled nondistended small bowel loops of the anterior mid to lower abdomen which may be from the surrounding ascites versus enteritis. Additional findings as above. CTA neck, head, 05/14/24: 1. Complete occlusion of the right cervical internal carotid artery. There may be trickle flow in distal right cervical ICA. 2. Poor flow in the right intracranial ICA likely retrograde perfusion through the contralateral left side posterior circulation through the communicating arteries. 3. High-grade stenosis at the left carotid bulb with at least 70-80% stenosis. Moderate short-segment stenosis in the left proximal ICA with at least 60% stenosis. MRI HEAD, 05/11/2024: 1. Multiple foci of restricted diffusion in the right centrum semiovale and along the right superior frontal lobe compatible with acute to subacute infarcts. There is no evidence of acute hemorrhage or significant surrounding edema. 2. Absence of flow void in the intracranial portions of the right internal carotid artery which is likely occluded. vital signs Vital Sign Date Time Temp Pulse Resp B/P (MAP) Pulse Ox O2 Delivery O2 Flow Rate FiO2 05/29/24 10: 100 23 168/65 (99) 100 30 05/29/24 07:00 100.0 212.0 05/29/24 06:00 Mechanical Ventilator+ Total Intake and Output 05/28/24 05/28/24 05/29/24 15:00 23:00 07:00 Intake Total 776.689 ml 423 ml 892.5 ml Output Total 1545 ml 995 ml Balance 776.689 ml -1122 ml -102.5 ml medications Current Medications Medications Dose Ordered Sig/Nora Route Start Time Stop Time Status Last Admin Dose Admin Ondansetron HCl 4 mg Q4HP PRN IV 05/07/24 16:30 05/16/24 05:55 4 MG Fentanyl Citrate 250 ml @ 2.5 mls/hr Q24H IV 05/16/24 14:00 05/29/24 02:13 30 MLS/HR Midazolam HCl 50 ml @ 1 mls/hr Q24H IV 05/16/24 21:00 05/29/24 07:55 10 MLS/HR Phenylephrine HCl 250 ml @ 30 mls/hr Q8H20M IV 05/16/24 21:15 05/17/24 06:03 30 MLS/HR Acetaminophen 650 mg Q6HPRN PRN NE 05/16/24 22:30 05/16/24 22:30 650 MG Pantoprazole Sodium 40 mg DAILY IV 05/17/24 10:00 05/29/24 10:01 40 MG Amino Acids 0 ml @ 0 mls/hr PER PHARMACY IV 05/17/24 08:30 Meropenem 50 ml @ 17 mls/hr Q8HR IV 05/18/24 14:00 05/29/24 05:43 17 MLS/HR Vancomycin HCl 0 ml @ 0 mls/hr UD IV 05/18/24 07:45 Metoprolol Tartrate 1.25 mg Q6HPRN PRN IV 05/18/24 16:00 05/18/24 16:17 1.25 MG Norepinephrine Bitartrate 32 mg/ Sodium Chloride 250 ml @ 0.938 mls/ hr Q24H IV 05/18/24 16:00 05/28/24 09:55 0.938 MLS/HR Amiodarone HCl 250 ml @ 16.667 mls/ hr Q15H IV 05/18/24 22:30 05/20/24 20:59 16.667 MLS/HR Potassium Chloride 100 ml @ 50 mls/hr Q2H IV 05/22/24 12:30 05/22/24 16:29 Cancel Micafungin Sodium 100 mg/Sodium Chloride 100 ml @ 100 mls/hr DAILY IV 05/23/24 10:00 05/29/24 10:01 100 MLS/HR Diagnostic Test (Pha) 1 strip Q6HR 05/24/24 12:00 05/29/24 05:47 1 STRIP Insulin Human Regular FOLLOW SLIDING SCALE Q6HR SC 05/24/24 12:00 05/28/24 18:24 2 UNITS Dextrose 50 ml UD IV 05/24/24 12:00 Vancomycin HCl 250 ml @ 250 mls/hr DAILY@1500 IV 05/25/24 15:00 05/28/24 17:15 250 MLS/HR Fat Emulsion Intravenous 100 ml/Sodium Phosphate 20 meq/ Potassium Acetate 20 meq/Magnesium Sulfate 16 meq/ Multivitamins 10 ml/Insulin Human Regular 20 units/ Amino Acids/ Dextrose/Purified Water 1,479.2 ml @ 62 mls/hr [id number] IV 05/28/24 20:00 05/29/24 19:59 05/28/24 20:14 62 MLS/HR Dexmedetomidine HCl 400 mcg/ Dextrose 100 ml @ 3.17 mls/hr Q24H IV 05/28/24 20:45 Fat Emulsion Intravenous 100 ml/Sodium Phosphate 40 meq/ Potassium Acetate 40 meq/Magnesium Sulfate 20 meq/ Multivitamins 10 ml/Chromium/ Copper/Manganese/ Zinc 1 ml/Insulin Human Regular 18 units/Amino Acids/ Dextrose/Purified Water 1,496.18 ml @ 62 mls/hr Q24H8M IV 05/29/24 20:00 05/30/24 19:59 objective General: the patient is well developed and nourished. No acute distress. ABDOMEN: Status post surgery MENTAL STATUS: Subjective. CRANIAL NERVES: Pupils are equal, round and reactivel. There are corneal reflexes and doll's eyes phenomenon. No signs of facial weakness. There are weak gagging or coughing reflexes SENSATION: No responses to pain stimuli. MOTOR: Normal tone in the upper and lower extremity. Normal muscle bulk. No fasciculations. No spontaneous movement. REFLEXES: Deep tendon reflexes are symmetrical. No pathological reflexes. CEREBELLAR/COORDINATION: Deferred GAIT/STATION: deferred. laboratory and microbiology Laboratory Tests 05/29/24 09:06 05/29/24 04:00 Test 05/29/24 04:00 Range/Units Serum Glucose 115 H 74-106 mg/dL Problem List Pelvic prolapse, can count urethrovesical junction, surgery repair on 05/07/2024 (Robotic supracervical hysterectomy bilateral salpingo-oophorectomy colposcopic pexy cystocele repair urethral sling partial vaginectomy) Bowel obstruction with perforation, intra-abdominal abscess, dense at [place], status post surgery 05/16/2024 Sepsis/septic shock Metabolic encephalopathy Acute right MCA territory multiple strokes Left hemiparesis Right ICA occlusion Left ICA severe stenosis Anemia, with unstable H&H Status post oophorectomy, hysterectomy Assessment/Plan Monitoring Supportive treatment ICU care Stabilize vitals/pressor drip Respiratory support/vent management IV antibiotics Oxygen Hold off Aspirin 81 mg q.d. Hold off Plavix 75 mg daily for 21 days Lipitor 20 mg daily (NPO) TPN Up to chair Physical therapy Further address bilateral carotid stenosis CLARA on discharge Surgery on case Type and screen, RBC transfusion STAT More recommendation per clinical course This medical document was created using an electronic medical record system with [employer] dictation system. Although this document has been carefully reviewed, there may still be some phonetic and typographical errors. These areas are purely typographical due to imperfections of the software programs, and do not reflect any compromise in the patient's medical care Prognosis guarded Dietary Evaluation Review Comments: 1) Advance pt diet when medically feasible to a 2gmNa diet modified per USER EXPERIENCE RESEARCHER recommendations 2) Continue current plan of care Expected Outcomes/Goals: 1) Pt diet to advance 2) F/U in 2-3 days Plan discussed with: Other Critical Care Time(min): 35 BRYAN FLORES MD May 29, 2024 10:52
[2024-05-29] MEDS: FUROSEMIDE 20 MG/2 ML VIAL IV ONE (11:11)
[2024-05-29 16:45] LABS: Hemoglobin 8.2 g/dL (12.2-16.2)
[2024-05-29 16:46] LABS: Hematocrit 24.2 % (36.0-46.0)
[2024-05-29] MEDS: TPN PER PHARMACY IV NR (21:00)
--- NOTE | 2024-05-29 21:17 | DVHPN2 ---
Progress Note - Dictate Date Seen: May 29, 2024 Has the PT tested + for MRSA If YES, has PT been informed?: No Medical Necessity Reason Pt with a Central, PICC or Fol: Yes The following are medically ne: Muhammad Catheter Reason for muhammad catheter: Strict I&O Subjective Patient seen and examined at bedside. Sedated, intubated on mechanical ventilator. Overnight events reviewed. vital signs Vital Sign Date Time Temp Pulse Resp B/P (MAP) Pulse Ox O2 Delivery O2 Flow Rate FiO2 05/29/24 20:56 169/63 05/29/24 20:13 84 22 100 30 05/29/24 18:45 99.0 210.2 05/29/24 18:00 Mechanical Ventilator+ Total Intake and Output 05/28/24 05/28/24 05/29/24 15:00 23:00 07:00 Intake Total 776.689 ml 423 ml 989.5 ml Output Total 1545 ml 995 ml Balance 776.689 ml -1122 ml -5.5 ml medications Current Medications Medications Dose Ordered Sig/Nora Route Start Time Stop Time Status Last Admin Dose Admin Ondansetron HCl 4 mg Q4HP PRN IV 05/07/24 16:30 05/16/24 05:55 4 MG Fentanyl Citrate 250 ml @ 2.5 mls/hr Q24H IV 05/16/24 14:00 05/29/24 20:56 25 MLS/HR Midazolam HCl 50 ml @ 1 mls/hr Q24H IV 05/16/24 21:00 05/29/24 20:56 10 MLS/HR Phenylephrine HCl 250 ml @ 30 mls/hr Q8H20M IV 05/16/24 21:15 05/17/24 06:03 30 MLS/HR Acetaminophen 650 mg Q6HPRN PRN MI 05/16/24 22:30 05/16/24 22:30 650 MG Pantoprazole Sodium 40 mg DAILY IV 05/17/24 10:00 05/29/24 10:01 40 MG Amino Acids 0 ml @ 0 mls/hr PER PHARMACY IV 05/17/24 08:30 Meropenem 50 ml @ 17 mls/hr Q8HR IV 05/18/24 14:00 05/29/24 13:50 17 MLS/HR Vancomycin HCl 0 ml @ 0 mls/hr UD IV 05/18/24 07:45 Metoprolol Tartrate 1.25 mg Q6HPRN PRN IV 05/18/24 16:00 05/18/24 16:17 1.25 MG Norepinephrine Bitartrate 32 mg/ Sodium Chloride 250 ml @ 0.938 mls/ hr Q24H IV 05/18/24 16:00 05/28/24 09:55 0.938 MLS/HR Amiodarone HCl 250 ml @ 16.667 mls/ hr Q15H IV 05/18/24 22:30 05/20/24 20:59 16.667 MLS/HR Potassium Chloride 100 ml @ 50 mls/hr Q2H IV 05/22/24 12:30 05/22/24 16:29 Cancel Micafungin Sodium 100 mg/Sodium Chloride 100 ml @ 100 mls/hr DAILY IV 05/23/24 10:00 05/29/24 10:01 100 MLS/HR Diagnostic Test (Pha) 1 strip Q6HR 05/24/24 12:00 05/29/24 17:33 1 STRIP Insulin Human Regular FOLLOW SLIDING SCALE Q6HR SC 05/24/24 12:00 05/29/24 17:32 2 UNITS Dextrose 50 ml UD IV 05/24/24 12:00 Vancomycin HCl 250 ml @ 250 mls/hr DAILY@1500 IV 05/25/24 15:00 05/29/24 14:55 250 MLS/HR Dexmedetomidine HCl 400 mcg/ Dextrose 100 ml @ 3.17 mls/hr Q24H IV 05/28/24 20:45 Fat Emulsion Intravenous 100 ml/Sodium Phosphate 30 meq/ Potassium Acetate 40 meq/Magnesium Sulfate 20 meq/ Multivitamins 10 ml/Chromium/ Copper/Manganese/ Zinc 1 ml/Insulin Human Regular 18 units/Amino Acids/ Dextrose/Purified Water 1,493.68 ml @ 62 mls/hr Q24H6M IV 05/29/24 20:00 05/30/24 19:59 05/29/24 21:00 62 MLS/HR objective Gen.: Patient lying in bed in medical ICU. Sedated, intubated on mechanical ventilator. Head: Normocephalic, atraumatic. Eyes: PERRLA. Ears: Normal external anatomy. Throat: Endotracheal tube and orogastric tube in place. Neck: Supple, trachea midline. Chest: Transmitted breath sounds bilaterally. Decreased air entry bilaterally. No wheezing. Bibasilar crackles. Cardio vascular: Positive S1, positive S2. Regular rate and rhythm. Abdomen: Positive bowel sounds in all 4 quadrants. Soft, nontender, nondistended. : Muhammad in place. Normal external genitalia. Rectal: Deferred Skin: Warm, dry. Intact. Extremities: 2+ radial pulses bilaterally. No lower extremity edema. Neuro: Sedated. laboratory and microbiology Laboratory Tests 05/29/24 16:36 05/29/24 09:06 05/29/24 04:00 Test 05/29/24 04:00 Range/Units Serum Glucose 115 H 74-106 mg/dL Assessment/Plan Impression: Acute hypoxic respiratory failure On mechanical ventilator Abdominal pain due to recent robotic surgery hysterectomy and salpingo- oophorectomy History of breast cancer with bilateral mastectomies History of bowel surgery and ileostomy Anemia due to hemorrhage on hemodilution Shock Chronic pain syndrome Anemia Atrial fibrillation with RVR Bowel perforation with repeat exploratory laparotomy with ileostomy creation Events: Remains on vent support On assist control with a respiratory rate of 18, tidal volume 450, PEEP of 5, FiO2 of 30%. Transfuse 1 unit PRBC Monitor hemoglobin closely. Transfuse if less than 7.0 grams/deciliter. TPN for nutritional support Patient remains on sedation with fentanyl and Versed drips. Off Levophed. Patient did not tolerate taper of sedation. Became tachypneic and tachycardic Plan for CPAP trial in the morning with pressure support of 8, PEEP of 5 cm of water. ABG reviewed - alkalemia due to respiratory alkalosis. Chest x-ray imaging report reviewed. Devices in place. Stable right basilar opacities. No pleural effusion or pneumothorax. Rest of plan as outlined below. Plan: s/p intubation on mechanical ventilator CXR image and report reviewed. Devices in place. Pulmonary vascular congestion. Right bibasilar airspace opacities. No pleural effusion or pneumothorax. ABG reviewed. Compensated On assist control with a respiratory rate of 18, tidal volume 450, PEEP of 5, FiO2 of 30%. Titrate FIO2 to keep O2 saturation above 92%. VAP bundle Daily ABG and CXR while intubated. Sedate for ventilatory synchrony Pressors as necessary for hemodynamic support. Titrate to keep MAP above 65 mmHg/SBP above 90 mmHg. Continue antibiotics. F/u cultures. Monitor hemoglobin Transfuse if less than 7.0 grams/deciliter On IV fluids with lactated Ringer's at 75 mL an hour. Monitor renal function due to Acute kidney injury. Monitor electrolytes. Supplement as necessary. Surgery recommendations appreciated. Nutritional support. On TPN Accucheks, ISS. GI/DVT prophylaxis. Condition: Critical Prognosis: Poor given multiple comorbidities. Rest of plan per hospitalist and other consultants. A total of 35 minutes of critical care time was spent reviewing the patient record, examining the patient, making a diagnostic and therapeutic plan, discussing this plan with the medical personnel, following up on diagnostic studies and following the patient for clinical stability excluding any and all procedures. At least 50% of this time was spent in direct, [id number] contact. Thank you Dr Reid for allowing me to participate in this patient's care. Further recommendations will depend on patient's clinical course. Please do not hesitate to contact me if you have any questions or concerns. This medical document was created using an electronic medical record system with [employer] dictation system. Although this document has been carefully reviewed, there may still be some phonetic and typographical errors. These areas are purely typographical due to imperfections of the software programs, and do not reflect any compromise in the patient's medical care. Dietary Evaluation Review Comments: 1) Advance pt diet when medically feasible to a 2gmNa diet modified per HAND PRESSER recommendations 2) Continue current plan of care Expected Outcomes/Goals: 1) Pt diet to advance 2) F/U in 2-3 days Plan discussed with: Other (YASH Thompson) Critical Care Time(min): 35 RG LEONE MD May 29, 2024 21:17
--- NOTE | 2024-05-29 21:34 | DVHPN2 ---
Progress Note Date Seen: May 29, 2024 Has the PT tested + for MRSA If YES, has PT been informed?: No Medical Necessity Reason Pt with a Central, PICC or Fol: Yes The following are medically ne: Muhammad Catheter Reason for muhammad catheter: Strict I&O Objective vital signs Vital Sign Date Time Temp Pulse Resp B/P (MAP) Pulse Ox O2 Delivery O2 Flow Rate FiO2 05/29/24 20:56 169/63 05/29/24 20:13 84 22 100 30 05/29/24 18:45 99.0 210.2 05/29/24 18:00 Mechanical Ventilator+ Total Intake and Output 05/28/24 05/28/24 05/29/24 15:00 23:00 07:00 Intake Total 776.689 ml 423 ml 989.5 ml Output Total 1545 ml 995 ml Balance 776.689 ml -1122 ml -5.5 ml medications Current Medications Medications Dose Ordered Sig/Nora Route Start Time Stop Time Status Last Admin Dose Admin Ondansetron HCl 4 mg Q4HP PRN IV 05/07/24 16:30 05/16/24 05:55 4 MG Fentanyl Citrate 250 ml @ 2.5 mls/hr Q24H IV 05/16/24 14:00 05/29/24 20:56 25 MLS/HR Midazolam HCl 50 ml @ 1 mls/hr Q24H IV 05/16/24 21:00 05/29/24 20:56 10 MLS/HR Phenylephrine HCl 250 ml @ 30 mls/hr Q8H20M IV 05/16/24 21:15 05/17/24 06:03 30 MLS/HR Acetaminophen 650 mg Q6HPRN PRN DC 05/16/24 22:30 05/16/24 22:30 650 MG Pantoprazole Sodium 40 mg DAILY IV 05/17/24 10:00 05/29/24 10:01 40 MG Amino Acids 0 ml @ 0 mls/hr PER PHARMACY IV 05/17/24 08:30 Meropenem 50 ml @ 17 mls/hr Q8HR IV 05/18/24 14:00 05/29/24 13:50 17 MLS/HR Vancomycin HCl 0 ml @ 0 mls/hr UD IV 05/18/24 07:45 Metoprolol Tartrate 1.25 mg Q6HPRN PRN IV 05/18/24 16:00 05/18/24 16:17 1.25 MG Norepinephrine Bitartrate 32 mg/ Sodium Chloride 250 ml @ 0.938 mls/ hr Q24H IV 05/18/24 16:00 05/28/24 09:55 0.938 MLS/HR Amiodarone HCl 250 ml @ 16.667 mls/ hr Q15H IV 05/18/24 22:30 05/20/24 20:59 16.667 MLS/HR Potassium Chloride 100 ml @ 50 mls/hr Q2H IV 05/22/24 12:30 05/22/24 16:29 Cancel Micafungin Sodium 100 mg/Sodium Chloride 100 ml @ 100 mls/hr DAILY IV 05/23/24 10:00 05/29/24 10:01 100 MLS/HR Diagnostic Test (Pha) 1 strip Q6HR 05/24/24 12:00 05/29/24 17:33 1 STRIP Insulin Human Regular FOLLOW SLIDING SCALE Q6HR SC 05/24/24 12:00 05/29/24 17:32 2 UNITS Dextrose 50 ml UD IV 05/24/24 12:00 Vancomycin HCl 250 ml @ 250 mls/hr DAILY@1500 IV 05/25/24 15:00 05/29/24 14:55 250 MLS/HR Dexmedetomidine HCl 400 mcg/ Dextrose 100 ml @ 3.17 mls/hr Q24H IV 05/28/24 20:45 Fat Emulsion Intravenous 100 ml/Sodium Phosphate 30 meq/ Potassium Acetate 40 meq/Magnesium Sulfate 20 meq/ Multivitamins 10 ml/Chromium/ Copper/Manganese/ Zinc 1 ml/Insulin Human Regular 18 units/Amino Acids/ Dextrose/Purified Water 1,493.68 ml @ 62 mls/hr Q24H6M IV 05/29/24 20:00 05/30/24 19:59 05/29/24 21:00 62 MLS/HR laboratory and microbiology Laboratory Tests 05/29/24 16:36 05/29/24 09:06 05/29/24 04:00 Test 05/29/24 04:00 Range/Units Serum Glucose 115 H 74-106 mg/dL Microbiology Date/Time Source Procedure Growth Status 05/24/24 17:06 Other Gram Stain - Final Resulted 05/24/24 17:06 Other Anaerobic Culture - Final Resulted 05/24/24 17:06 Other Aerobic Culture - Preliminary Resulted 05/17/24 01:52 Urine - [place] Urine Culture - Final Yeast, not Shawanda albicans Complete 05/16/24 22:55 Blood Blood Culture - Final NO GROWTH AFTER 5 DAYS OF INCUBATION. 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 BETTER VASOPRESSOR OFF WBC WNL ABD SOFT DRAIN IN PLACE SEROSANGUINEOUS RIGHT 30CC LESS PURULENT, LEFT 40 CC SEROSANGUINEOUS DRESSING ABD WOUND DRAINAGE NOTED AND EXPECTED CONDITION GUARDED ILEOSTOMY VIABLE AND FUNCTIONAL FAMILY UPDATED NURSE AT BEDSIDE CONTINUE SUPPORTIVE CARE Plan discussed with: Other Dietary Evaluation Review Comments: 1) Advance pt diet when medically feasible to a 2gmNa diet modified per OTHER SPATIAL SCIENTIST recommendations 2) Continue current plan of care Expected Outcomes/Goals: 1) Pt diet to advance 2) F/U in 2-3 days SHEY COVARRUBIAS MD May 29, 2024 21:34
[2024-05-30] VITALS (109 sets, daily range): BP systolic -3–186; BP diastolic -11–115; PULSE 71–112; RESP 10–29; TEMP 97.7–100.6; O2SAT 94–100
[2024-05-30 04:16] LABS: Basophils # (auto) 0 10 ^3/uL (0-0.2); Eosinophils # (auto) 0.1 10 ^3/uL (0-0.8); Hemoglobin 7.7 g/dL (12.2-16.2); Lymphocytes # (auto) 0.5 10 ^3/uL (0.4-5.4); Nucleated Red Blood Cells % 0.1 %; Platelet Count (auto) 268 10^3/uL (140-450)
[2024-05-30 04:20] LABS: Basophils % (auto) 0.5 % (0.0-2.0); Eosinophils % (auto) 1.3 % (0.0-7.0); Lymphocytes % (auto) 6.6 % (10.0-50.0); Mean Corpuscular Hemoglobin 30.2 pg (28.0-32.0); Mean Corpuscular Hgb Conc. 34.8 g/dL (32.0-36.0); Mean Corpuscular Volume 86.6 fL (80.0-100.0); Monocytes # (auto) 0.8 10 ^3/uL (0-1.3); Monocytes % (auto) 11.1 % (0.0-12.0); Neutrophils % (auto) 80.5 % (37.0-80.0); Red Blood Cells 2.54 10^6/uL (4.0-5.20); Red Cell Distribution Width 14.5 % (11.8-14.3); White Blood Cell 7.4 10^3/uL (4.4-10.8)
[2024-05-30 04:27] LABS: Alanine Aminotransferase 21 U/L (7-40); Albumin 2.4 g/dL (3.2-4.8); Alkaline Phosphatase 116 U/L (46-116); Anion Gap 4 (5-15); Aspartate Aminotransferase 27 U/L (13-40); BUN/Creatinine Ratio 53.1 (10.0-20.0); Blood Urea Nitrogen 26 mg/dL (9-23); Calcium 8.6 mg/dL (8.7-10.4); Carbon Dioxide 28 mmol/L (20-31); Chloride 104 mmol/L (98-107); Glucose 127 mg/dL (74-106); Magnesium 1.9 mg/dL (1.6-2.6); Potassium 3.2 mmol/L (3.5-5.1); Sodium 136 mmol/L (136-145)
[2024-05-30 04:28] LABS: Bilirubin, Total 2.5 mg/dL (0.2-1.0); Total Protein 5.1 g/dL (5.7-8.2)
--- NOTE | 2024-05-30 05:10 | DVH ---
CHEST RADIOGRAPH Indication:vent Technique: Single frontal view of the chest was obtained COMPARISON: XY CHEST PORTABLE on DOS: 05/29/24, XY CHEST PORTABLE on DOS: 05/28/24, XY CHEST PORTABLE on DOS: 05/27/24, XY CHEST PORTABLE on DOS: 05/27/24 FINDINGS: Lines and Tubes: The endotracheal tube terminates 5.5 cm above the joaquin. The enteric tube courses b elow the left hemidiaphragm and the tip extends outside the field of view. Right infusion catheter an d right central venous catheter are similar to prior study terminating in the superior vena cava. Lungs: Stable pulmonary congestion. Right basilar airspace disease is unchanged. Pleura: No effusion. No pneumothorax. Cardiomediastinal contours: Unremarkable Bones: No acute osseous abnormality. IMPRESSION: 1. No significant interval change.
[2024-05-30] MEDS: POTASSIUM CHL 20MEQ/100ML 100 ML IV ONE ×3 (06:03→12:57)
[2024-05-30 07:47] LABS: Base Excess 0.6 mmol/L (-2.0-3.0)
--- NOTE | 2024-05-30 09:38 | DVHPN2 ---
Subjective Intubated and sedated Hb better K 3.2 Purulent discharge from drains Reviewed: Care Plan, H&P, Labs, Medications, Previous Orders, Radiology Changes from previous H/P or p: Changes General: Per HPI Eyes: No Pain, No Vision change, No Conjunctivae inflammation, No Eyelid inflammation, No Other, No Redness ENT: No Ear pain, No Ear discharge, No Nose pain, No Nose discharge, No Nose congestion, No Mouth pain, No Mouth swelling, No Throat pain, No Throat swelling, No Other Cardiovascular: No Chest Pain, No Palpitations, No Orthopnea, No Paroxysmal Noc. Dyspnea, No Edema, No Lt Headedness, No Other Respiratory: No Cough, No Dry, No Shortness of breath, No SOB with excertion, No Wheezing, No Hemoptysis, No Pleuritic Pain, No Sputum, No Other Gastrointestinal: Nausea Genitourinary: No Dysuria, No Frequency, No Incontinence, No Hematuria, No Retention, No Other Musculoskeletal: No other, No neck pain, No shoulder pain, No arm pain, No back pain, No hand pain, No leg pain, No foot pain Skin: No Rash, No Lesions, No Jaundice, No Bruising, No Other Objective Vitals Vital Signs Date Time Temp Pulse Resp B/P (MAP) Pulse Ox O2 Delivery O2 Flow Rate FiO2 05/30/24 09:29 78 20 140/53 (82) 100 30 05/30/24 06:45 99.5 211.1 05/30/24 06:00 Mechanical Ventilator+ Intake/Output Intake and Output 05/30/24 07:00 Intake Total 2978.945 ml Output Total 4100 ml Balance -1121.055 ml IV Total 2678.945 ml Blood Product 300 ml Output Urine Total 3850 ml Gastric Drainage Total 10 ml Drainage Total 30 ml Other 210 ml General Appearance: moderate distress, Other (Intubated and sedated) HEENT: Atraumatic, PERRLA, Other (Pupils equal, 4 mm, reactive to light to 3 mm) Lungs: Clear to auscultation, Normal air movement, Other (Mechanical ventilation) Cardiovascular: Regular rate, Normal S1, Normal S2 Abdomen: Other (Ileostomy with drainage. EVARISTO to right lower quadrant with thick serosanguineous secretions.) Musculoskeletal: Other (Unable to assess) Extremities: No edema, Other (Poor cap refill to left lower extremity with some cyanosis noted) Neuro: Other (Left arm weakness including rolloff driver and proximal muscles) Skin: Dry, Intact, Other (Surgical incision dry and intact) Psych/Mental Status: Mental status NL, Mood NL Medications Current Medications Medications Dose Ordered Sig/Nora Route Start Time Stop Time Status Last Admin Dose Admin Ondansetron HCl 4 mg Q4HP PRN IV 05/07/24 16:30 05/16/24 05:55 4 MG Fentanyl Citrate 250 ml @ 2.5 mls/hr Q24H IV 05/16/24 14:00 05/30/24 06:36 25 MLS/HR Midazolam HCl 50 ml @ 1 mls/hr Q24H IV 05/16/24 21:00 05/30/24 07:24 10 MLS/HR Phenylephrine HCl 250 ml @ 30 mls/hr Q8H20M IV 05/16/24 21:15 05/17/24 06:03 30 MLS/HR Acetaminophen 650 mg Q6HPRN PRN IA 05/16/24 22:30 05/16/24 22:30 650 MG Pantoprazole Sodium 40 mg DAILY IV 05/17/24 10:00 05/29/24 10:01 40 MG Amino Acids 0 ml @ 0 mls/hr PER PHARMACY IV 05/17/24 08:30 Meropenem 50 ml @ 17 mls/hr Q8HR IV 05/18/24 14:00 05/27/24 06:00 17 MLS/HR Vancomycin HCl 0 ml @ 0 mls/hr UD IV 05/18/24 07:45 Metoprolol Tartrate 1.25 mg Q6HPRN PRN IV 05/18/24 16:00 05/18/24 16:17 1.25 MG Norepinephrine Bitartrate 32 mg/ Sodium Chloride 250 ml @ 0.938 mls/ hr Q24H IV 05/18/24 16:00 05/28/24 09:55 0.938 MLS/HR Amiodarone HCl 250 ml @ 16.667 mls/ hr Q15H IV 05/18/24 22:30 05/20/24 20:59 16.667 MLS/HR Potassium Chloride 100 ml @ 50 mls/hr Q2H IV 05/22/24 12:30 05/22/24 16:29 Cancel Micafungin Sodium 100 mg/Sodium Chloride 100 ml @ 100 mls/hr DAILY IV 05/23/24 10:00 05/29/24 10:01 100 MLS/HR Diagnostic Test (Pha) 1 strip Q6HR 05/24/24 12:00 05/30/24 06:00 1 STRIP Insulin Human Regular FOLLOW SLIDING SCALE Q6HR SC 05/24/24 12:00 05/29/24 17:32 2 UNITS Dextrose 50 ml UD IV 05/24/24 12:00 Vancomycin HCl 250 ml @ 250 mls/hr DAILY@1500 IV 05/25/24 15:00 05/29/24 14:55 250 MLS/HR Dexmedetomidine HCl 400 mcg/ Dextrose 100 ml @ 3.17 mls/hr Q24H IV 05/28/24 20:45 Fat Emulsion Intravenous 100 ml/Sodium Phosphate 30 meq/ Potassium Acetate 40 meq/Magnesium Sulfate 20 meq/ Multivitamins 10 ml/Chromium/ Copper/Manganese/ Zinc 1 ml/Insulin Human Regular 18 units/Amino Acids/ Dextrose/Purified Water 1,493.68 ml @ 62 mls/hr Q24H6M IV 05/29/24 20:00 05/30/24 19:59 05/29/24 21:00 62 MLS/HR Laboratory Results Laboratory Tests 05/30/24 03:50 Chemistry Test 05/30/24 03:50 Albumin 2.4 g/dL (3.2-4.8) L Calcium Level 8.6 mg/dL (8.7-10.4) L Magnesium Level 1.9 mg/dL (1.6-2.6) Phosphorus Level 3.0 mg/dL (2.4-5.1) Total Protein 5.1 g/dL (5.7-8.2) L LFT Test 05/30/24 03:50 Alanine Aminotransferase (ALT) 21 U/L (7-40) Alkaline Phosphatase 116 U/L (46-116) Aspartate Amino Transferase (AST) 27 U/L (13-40) Total Bilirubin 2.5 mg/dL (0.2-1.0) H Urinalysis Test 05/11/24 16:18 Urine Color Yellow (Yellow) Urine Clarity Clear (Clear) Urine pH 6.0 (5.0-9.0) Urine Specific [place] 1.020 (1.001-1.035) Urine Protein 1+ (Negative) H Urine Ketones 4+ (Negative) H Urine Blood Trace /uL (Negative) H Urine Nitrite Negative (Negative) Urine Bilirubin Negative (Negative) Urine Urobilinogen Normal mg/dL (Negative) Urine Leukocyte Esterase Negative /uL (Negative) Urine RBC 2 /hpf (0 - 4) Urine WBC 2 /hpf (0 - 5) Urine Squamous Epithelial Cells Few /hpf (<5) Urine Bacteria None seen /hpf (None Seen) Urine Mucus Few (None Seen) Urine Glucose Normal mg/dL (Normal) Blood Gas Results Test 05/30/24 07:33 Arterial Blood pH 7.466 (7.350-7.450) FiO2 % 30.0 Microbiology Microbiology Date/Time Source Procedure Growth Status 05/24/24 17:06 Other Gram Stain - Final Resulted 05/24/24 17:06 Other Anaerobic Culture - Final Resulted 05/24/24 17:06 Aerobic Culture - Preliminary Yeast, not Shawanda albicans Resulted 05/17/24 01:52 Urine - [place] Urine Culture - Final Yeast, not Shawanda albicans Complete 05/16/24 22:55 Blood Blood Culture - Final NO GROWTH AFTER 5 DAYS OF INCUBATION. Complete 05/16/24 14:20 Sputum Gram Stain - Final Complete 05/16/24 14:20 Respiratory Culture - Final Yeast, not Shawanda albicans Complete Assessment/Plan Assessment/Plan Robotic surgery hysterectomy and salpingo-oophorectomy complicated by Acute CVA Acute CVA w LUE hemiparesis Bowel perforation with repeat exploratory laparotomy with ileostomy creation History of breast cancer with bilateral mastectomies Afib RVR Acute hypoxic respiratory failure Mechanical intubation Exploratory laparotomy, drainage of intraabdominal abscess, thorough peritoneal lavage with reinforcement of the anastomotic location of the previous anastomosis as well as a diverting loop ileostomy on 05/24/24 Anemia Plan Mechanical ventilation TPN IV antibiotics: Vancomycin + Meropenem No vasopressors Sedation prn GI Prophylaxis: Protonix Transfuse blood prn 05/29/24: Transfuse 1 unit RBCs for Hb 5.9 Lasix 20 mg IV x1 Check Hb after transfusion Off pressors Antibiotics: Meropenem, Vanco, Micafungin Amiodarone IV Taper sedation down as tolerated CXR: Clear TPN Protonix 05/30/24: Discussed with Dr. [place] Will do CT ABD pelvis to follow up on abscess IV antibiotics Taper sedation down C-PAP? per Dr. Poon Plan discussed with: Other Date of Service: May 30, 2024 Billing Provider: BARI MOORE MD Common Visit Codes: NOT BILLABLE BARI MOORE MD May 30, 2024 09:38
--- NOTE | 2024-05-30 10:13 | DVHPN2 ---
Progress Note - Dictate Date Seen: May 30, 2024 Has the PT tested + for MRSA If YES, has PT been informed?: No Medical Necessity Reason Pt with a Central, PICC or Fol: Yes The following are medically ne: Muhammad Catheter Reason for muhammad catheter: Strict I&O Subjective Ms. Barrera is a 68 years old right-handed female with a history of hypertension, anemia, breast cancer, she was admitted to the [facility] on 05/07/2024 for scheduled hysterectomy and oophorectomy. Post surgically, she woke up with left-sided weakness, and MRI showed multiple stroke in the right MCA territory. During the hospital stay, she developed fall perforation, and she went through abdominal surgery on 05/16/2024 Because of ongoing intraperitoneal sepsis/peritonitis, the patient went through exploratory laparotomy on 05/24/2024 I have seen and examined the patient in the ICU, I have discussed with her nurse. She is respond to painful stimuli, She keeps spiking temperature The right-sided drainage looks cloudy She was received RBC yesterday with improved H/H Versed 16 mg/hour, fentanyl 250 mcg/minute, CBC, 05/16/2024: Metabolic acidosis, 05/17/2024: Metabolic acidosis, 05/18/2024: Metabolic acidosis URINALYSIS, 05/11/2024: WBC: 2, URINE LEUKOCYTE ESTERASE: NEGATIVE WBC/HB/PLT/MCV, 05/04: 5.1/10.7/119/98.3, 05/17/2024: 20.4/8.5/205/86.9 05/19/2024: 12.2/11.1/125/86.2, 05/20/2024: 8.1/10.5/113/86.1, 05/21/2024: 6.6/10.5/106/86.5, 05/26/2024: 9.6/9.2/184/93.8, 05/28/2024: 7.5/7/223/89.6, 05/29/24: 6.8/5.9/251/88.1, 05/30/2024: 7.4/7.7/268/86.6 PT/INR/FTT, 05/16/2024: 17.4/1.71/34.2 K, 05/09/2024: 3.9, 05/10/24:3.1, 05/12/2024: 3.4, 05/16/2024: 2.8 Lactic acid, 05/15/2024: 1.6, 05/16/2024: 1.5 HCO3, 05/23/2024: 35 Bun.Cr, 05/23/2024: 37/0.75 LIVER FUNCTION TESTS, 05/12/2024: UNREMARKABLE, 05/16/2024: Unremarkable TBI/AST/ALT/AP, 05/18/2024: 1.2//47, 05/19/2024: 3.1/04/23/2067, 05/23/2024: 3.1/48/35/170, 05/29/2024: 2.3//21/117 TG/HDL/LDL/HDL, 05/12/2024: 196/134/75/23 TSH, 05/12/2024: 2.01 Echocardiogram 05/14/2024: lvef 65% by visual estimate mild mitral regurg RV enlarged mild left atrium enlarged mild Carotid Doppler, 05/11/2024: 1. Occlusion of the right proximal ICA. 2. Greater than 50% stenosis of the right proximal ECA. 3. Greater than 50% stenosis of the left proximal ICA CT head, 05/11/2024: 1. Chronic lacunar infarct in right centrum semiovale. 2. Chronic periventricular ischemic changes. 3. Cerebral and cerebellar atrophy, likely age-related. 4. Advised further evaluation with MRI brain without contrast if clinically indicated CT abdomen/pelvis, 05/15/2024: Small bowel obstruction with evidence of perforation including free intraperitoneal fluid and air. Extensive subcutaneous emphysema likely secondary to bowel perforation CT abdomen/pelvis, 05/16/2024: 1. Sequelae of recent postsurgical changes as described above. Correlate with surgical history. 2. Pneumoperitoneum and free fluid in the abdomen and pelvis. 3. Large collection containing fluid and gas, predominantly in the right hemiabdomen. There is GI contrast extending into this collection from an adjacent small bowel loop. There is a component of this collection extending adjacent to the anterior superior aspect of the liver. 4. Moderate right hydronephrosis and hydroureter. The distal right ureter appears to be compressed by the large fluid collection in the right hemiabdomen. No obstructing calculus. 5. Dilated small bowel loops in the left hemiabdomen with suspected small-bowel obstruction. 6. Prominent subcutaneous edema in the ventral abdominal wall and extending caudally into the inguinal regions bilaterally, peroneal region, and anterior aspect of the left thigh. 7. Small bilateral pleural effusions with overlying atelectasis. 8. Additional findings as detailed above. CT abdomen, 05/23/2024: Postsurgical changes of the ventral abdomen with interval improvement in the diffuse soft tissue edema and ventral abdominal, pelvis and upper thigh subcutaneous emphysema. Interval significant decrease in size of the loculated collection within the right hemiabdomen and pelvis with small residual. Interval placement of drainage catheters terminating over the left upper abdominal quadrant and left hemipelvis as detailed above. Interval development of small to moderate ascites. Wall thickening of fluid-filled nondistended small bowel loops of the anterior mid to lower abdomen which may be from the surrounding ascites versus enteritis. Additional findings as above. CTA neck, head, 05/14/24: 1. Complete occlusion of the right cervical internal carotid artery. There may be trickle flow in distal right cervical ICA. 2. Poor flow in the right intracranial ICA likely retrograde perfusion through the contralateral left side posterior circulation through the communicating arteries. 3. High-grade stenosis at the left carotid bulb with at least 70-80% stenosis. Moderate short-segment stenosis in the left proximal ICA with at least 60% stenosis. MRI HEAD, 05/11/2024: 1. Multiple foci of restricted diffusion in the right centrum semiovale and along the right superior frontal lobe compatible with acute to subacute infarcts. There is no evidence of acute hemorrhage or significant surrounding edema. 2. Absence of flow void in the intracranial portions of the right internal carotid artery which is likely occluded. vital signs Vital Sign Date Time Temp Pulse Resp B/P (MAP) Pulse Ox O2 Delivery O2 Flow Rate FiO2 05/30/24 09:29 78 20 140/53 (82) 100 30 05/30/24 06:45 99.5 211.1 05/30/24 06:00 Mechanical Ventilator+ Total Intake and Output 05/29/24 05/29/24 05/30/24 15:00 23:00 07:00 Intake Total 896.689 ml 1338.504 ml 743.752 ml Output Total 2790 ml 1310 ml Balance 896.689 ml -1451.496 ml -566.248 ml medications Current Medications Medications Dose Ordered Sig/Nora Route Start Time Stop Time Status Last Admin Dose Admin Ondansetron HCl 4 mg Q4HP PRN IV 05/07/24 16:30 05/16/24 05:55 4 MG Fentanyl Citrate 250 ml @ 2.5 mls/hr Q24H IV 05/16/24 14:00 05/30/24 06:36 25 MLS/HR Midazolam HCl 50 ml @ 1 mls/hr Q24H IV 05/16/24 21:00 05/30/24 07:24 10 MLS/HR Phenylephrine HCl 250 ml @ 30 mls/hr Q8H20M IV 05/16/24 21:15 05/17/24 06:03 30 MLS/HR Acetaminophen 650 mg Q6HPRN PRN AR 05/16/24 22:30 05/16/24 22:30 650 MG Pantoprazole Sodium 40 mg DAILY IV 05/17/24 10:00 05/29/24 10:01 40 MG Amino Acids 0 ml @ 0 mls/hr PER PHARMACY IV 05/17/24 08:30 Meropenem 50 ml @ 17 mls/hr Q8HR IV 05/18/24 14:00 05/27/24 06:00 17 MLS/HR Vancomycin HCl 0 ml @ 0 mls/hr UD IV 05/18/24 07:45 Metoprolol Tartrate 1.25 mg Q6HPRN PRN IV 05/18/24 16:00 05/18/24 16:17 1.25 MG Norepinephrine Bitartrate 32 mg/ Sodium Chloride 250 ml @ 0.938 mls/ hr Q24H IV 05/18/24 16:00 05/28/24 09:55 0.938 MLS/HR Amiodarone HCl 250 ml @ 16.667 mls/ hr Q15H IV 05/18/24 22:30 05/20/24 20:59 16.667 MLS/HR Potassium Chloride 100 ml @ 50 mls/hr Q2H IV 05/22/24 12:30 05/22/24 16:29 Cancel Micafungin Sodium 100 mg/Sodium Chloride 100 ml @ 100 mls/hr DAILY IV 05/23/24 10:00 05/29/24 10:01 100 MLS/HR Diagnostic Test (Pha) 1 strip Q6HR 05/24/24 12:00 05/30/24 06:00 1 STRIP Insulin Human Regular FOLLOW SLIDING SCALE Q6HR SC 05/24/24 12:00 05/29/24 17:32 2 UNITS Dextrose 50 ml UD IV 05/24/24 12:00 Vancomycin HCl 250 ml @ 250 mls/hr DAILY@1500 IV 05/25/24 15:00 05/29/24 14:55 250 MLS/HR Dexmedetomidine HCl 400 mcg/ Dextrose 100 ml @ 3.17 mls/hr Q24H IV 05/28/24 20:45 Fat Emulsion Intravenous 100 ml/Sodium Phosphate 30 meq/ Potassium Acetate 40 meq/Magnesium Sulfate 20 meq/ Multivitamins 10 ml/Chromium/ Copper/Manganese/ Zinc 1 ml/Insulin Human Regular 18 units/Amino Acids/ Dextrose/Purified Water 1,493.68 ml @ 62 mls/hr Q24H6M IV 05/29/24 20:00 05/30/24 19:59 05/29/24 21:00 62 MLS/HR objective General: the patient is well developed and nourished. No acute distress. ABDOMEN: Status post surgery MENTAL STATUS: Subjective. CRANIAL NERVES: Pupils are equal, round and reactivel. There are corneal reflexes and doll's eyes phenomenon. No signs of facial weakness. There are weak gagging or coughing reflexes SENSATION: No responses to pain stimuli. MOTOR: Normal tone in the upper and lower extremity. Normal muscle bulk. No fasciculations. No spontaneous movement. REFLEXES: Deep tendon reflexes are symmetrical. No pathological reflexes. CEREBELLAR/COORDINATION: Deferred GAIT/STATION: deferred. laboratory and microbiology Laboratory Tests 05/30/24 03:50 Test 05/30/24 03:50 Range/Units Serum Glucose 127 H 74-106 mg/dL Problem List Pelvic prolapse, can count urethrovesical junction, surgery repair on 05/07/2024 (Robotic supracervical hysterectomy bilateral salpingo-oophorectomy colposcopic pexy cystocele repair urethral sling partial vaginectomy) Bowel obstruction with perforation, intra-abdominal abscess, dense at [place], status post surgery 05/16/2024 Sepsis/septic shock Metabolic encephalopathy Acute right MCA territory multiple strokes Left hemiparesis Right ICA occlusion Left ICA severe stenosis Anemia, with unstable H&H Status post oophorectomy, hysterectomy Assessment/Plan Monitoring Supportive treatment ICU care Stabilize vitals/pressor drip Respiratory support/vent management IV antibiotics Oxygen Hold off Aspirin 81 mg q.d. Hold off Plavix 75 mg daily for 21 days Lipitor 20 mg daily (NPO) TPN Up to chair Physical therapy Further address bilateral carotid stenosis CLARA on discharge Surgery on case More recommendation per clinical course This medical document was created using an electronic medical record system with [employer] dictation system. Although this document has been carefully reviewed, there may still be some phonetic and typographical errors. These areas are purely typographical due to imperfections of the software programs, and do not reflect any compromise in the patient's medical care Prognosis guarded Dietary Evaluation Review Comments: 1) Advance pt diet when medically feasible to a 2gmNa diet modified per RESIDENT HALL DIRECTOR recommendations 2) Continue current plan of care Expected Outcomes/Goals: 1) Pt diet to advance 2) F/U in 2-3 days Plan discussed with: Other BRYAN FLORES MD May 30, 2024 10:13
--- NOTE | 2024-05-30 16:42 | DVH ---
Exam: CT CT AB PELVIS W WO CON-IV ONLY History: abd abscess COMPARISON: None Technique: Multidetector spiral CT of the abdomen and pelvis was performed from lung bases to pubic symphysis. Intravenous contrast was administered during this examination. Portal venous imaging was obtained. Axial, coronal and sagittal multiplanar reformats were performed by the technologist on a separate workstation. Radiation Dose : Abdomen/Pelvis: CTDIvol point 28.68 mGy, DLP 1554.84 mGy*cm. CONTRAST: Type of contrast: Omni 300 Contrast injected: 100 ml Findings: Lung Bases: Small to moderate right pleural effusion with associated compressive atelectasis. Trace l eft pleural effusion Liver: The liver is normal in size. No focal lesions. Normal hepatic vascular enhancement. Gallbladder and biliary Tree: Sludge in the gallbladder Spleen: Unremarkable Pancreas: The pancreas is normal in appearance without focal lesions or abnormal enhancement. Adrenal Glands: Unremarkable Kidneys: There is a left renal cyst. No hydronephrosis or nephrolithiasis. Right kidney appears unr emarkable. Bladder: Bladder is decompressed with a Shannon catheter and cannot be adequately assessed. Bowel: Nasogastric tube in the stomach. Extensive postsurgical changes in the bowel. Rectal tube in t he rectum. Right lower quadrant ileostomy. Appendix not identified. Radiodense contrast in the mid ab domen associated with surgical sutures. Diffuse wall thickening of the small bowel. Ascites: Small amount of abdominal and pelvic ascities Lymphadenopathy: No mesenteric, retroperitoneal or periportal lymphadenopathy. Abdominal wall and Mesentery: Drainage catheter in the right pelvis. Drainage catheter in the left ab domen. Drainage catheter in the anterior abdominal wall . No loculated abscess identified. Vasculature: The visualized abdominal aorta is normal in size and caliber. There is calcified atheros clerotic plaque involving the aorta and its branches. Abdominal and pelvic vessels demonstrate normal enhancement. Pelvic Organs: Unremarkable Musculoskeletal: No aggressive focal bony lesions, acute fractures or dislocation. IMPRESSION: 1. Radiodense contrast in the mid abdomen associated with surgical sutures. It is unclear whether thi s is in bowel or represents a bowel leak. Clinical correlation and continued follow-up is recommended . 2. Right pelvic, anterior abdominal wall and left abdomen drainage catheters in place. No definite ab scess identified. 3. Extensive post postsurgical changes of the bowel. 4. Small amount of abdominal and pelvic ascities. 5. Small to moderate right pleural effusion. Radiation optimization: All CT scans at this facility use at least one of these dose optimization gumaro hniques: Automated exposure control mA and/or kV adjustment per patient size (includes targeted exams where dose is matched to clinical indication) or iterative reconstruction. HS:Y
--- NOTE | 2024-05-30 20:21 | DVHPN2 ---
Progress Note - Dictate Date Seen: May 30, 2024 Has the PT tested + for MRSA If YES, has PT been informed?: No Medical Necessity Reason Pt with a Central, PICC or Fol: Yes The following are medically ne: Muhammad Catheter Reason for muhammad catheter: Strict I&O Subjective Patient seen and examined at bedside. Sedated, intubated on mechanical ventilator. Overnight events reviewed. vital signs Vital Sign Date Time Temp Pulse Resp B/P (MAP) Pulse Ox O2 Delivery O2 Flow Rate FiO2 05/30/24 19:45 99.7 85 18 124/31 (62) 100 211.5 05/30/24 18:50 30 05/30/24 18:10 Mechanical Ventilator+ Total Intake and Output 05/29/24 05/29/24 05/30/24 15:00 23:00 07:00 Intake Total 896.689 ml 1338.504 ml 840.752 ml Output Total 2790 ml 1310 ml Balance 896.689 ml -1451.496 ml -469.248 ml medications Current Medications Medications Dose Ordered Sig/Nora Route Start Time Stop Time Status Last Admin Dose Admin Ondansetron HCl 4 mg Q4HP PRN IV 05/07/24 16:30 05/16/24 05:55 4 MG Fentanyl Citrate 250 ml @ 2.5 mls/hr Q24H IV 05/16/24 14:00 05/30/24 17:00 25 MLS/HR Midazolam HCl 50 ml @ 1 mls/hr Q24H IV 05/16/24 21:00 05/30/24 17:21 9 MLS/HR Phenylephrine HCl 250 ml @ 30 mls/hr Q8H20M IV 05/16/24 21:15 05/17/24 06:03 30 MLS/HR Acetaminophen 650 mg Q6HPRN PRN NC 05/16/24 22:30 05/16/24 22:30 650 MG Pantoprazole Sodium 40 mg DAILY IV 05/17/24 10:00 05/30/24 10:21 40 MG Amino Acids 0 ml @ 0 mls/hr PER PHARMACY IV 05/17/24 08:30 Meropenem 50 ml @ 17 mls/hr Q8HR IV 05/18/24 14:00 05/30/24 13:10 17 MLS/HR Vancomycin HCl 0 ml @ 0 mls/hr UD IV 05/18/24 07:45 Metoprolol Tartrate 1.25 mg Q6HPRN PRN IV 05/18/24 16:00 05/18/24 16:17 1.25 MG Norepinephrine Bitartrate 32 mg/ Sodium Chloride 250 ml @ 0.938 mls/ hr Q24H IV 05/18/24 16:00 05/28/24 09:55 0.938 MLS/HR Amiodarone HCl 250 ml @ 16.667 mls/ hr Q15H IV 05/18/24 22:30 05/20/24 20:59 16.667 MLS/HR Potassium Chloride 100 ml @ 50 mls/hr Q2H IV 05/22/24 12:30 05/22/24 16:29 Cancel Micafungin Sodium 100 mg/Sodium Chloride 100 ml @ 100 mls/hr DAILY IV 05/23/24 10:00 05/30/24 10:25 100 MLS/HR Diagnostic Test (Pha) 1 strip Q6HR 05/24/24 12:00 05/30/24 18:30 1 STRIP Insulin Human Regular FOLLOW SLIDING SCALE Q6HR SC 05/24/24 12:00 05/30/24 18:32 4 UNITS Dextrose 50 ml UD IV 05/24/24 12:00 Vancomycin HCl 250 ml @ 250 mls/hr DAILY@1500 IV 05/25/24 15:00 05/30/24 16:30 250 MLS/HR Dexmedetomidine HCl 400 mcg/ Dextrose 100 ml @ 3.17 mls/hr Q24H IV 05/28/24 20:45 Fat Emulsion Intravenous 100 ml/Sodium Phosphate 40 meq/ Potassium Chloride 40 meq/ Magnesium Sulfate 24 meq/ Multivitamins 10 ml/Insulin Human Regular 16 units/ Amino Acids/ Dextrose/Purified Water 1,496.16 ml @ 62 mls/hr Q24H8M IV 05/30/24 20:00 05/31/24 19:59 Hydralazine HCl 10 mg Q6HP PRN IV 05/30/24 16:15 objective Gen.: Patient lying in bed in medical ICU. Sedated, intubated on mechanical ventilator. Head: Normocephalic, atraumatic. Eyes: PERRLA. Ears: Normal external anatomy. Throat: Endotracheal tube and orogastric tube in place. Neck: Supple, trachea midline. Chest: Transmitted breath sounds bilaterally. Decreased air entry bilaterally. No wheezing. Bibasilar crackles. Cardio vascular: Positive S1, positive S2. Regular rate and rhythm. Abdomen: Positive bowel sounds in all 4 quadrants. Soft, nontender, nondistended. : Muhammad in place. Normal external genitalia. Rectal: Deferred Skin: Warm, dry. Intact. Extremities: 2+ radial pulses bilaterally. No lower extremity edema. Neuro: Sedated. laboratory and microbiology Laboratory Tests 05/30/24 03:50 Test 05/30/24 03:50 Range/Units Serum Glucose 127 H 74-106 mg/dL Assessment/Plan Impression: Acute hypoxic respiratory failure On mechanical ventilator Abdominal pain due to recent robotic surgery hysterectomy and salpingo- oophorectomy History of breast cancer with bilateral mastectomies History of bowel surgery and ileostomy Anemia due to hemorrhage on hemodilution Shock Chronic pain syndrome Anemia Atrial fibrillation with RVR Bowel perforation with repeat exploratory laparotomy with ileostomy creation Events: Remains on vent support On assist control with a respiratory rate of 18, tidal volume 450, PEEP of 5, FiO2 of 30%. Off TPN. EVARISTO drain Continue antibiotics Patient remains on sedation with fentanyl and Versed drips. Patient not tolerating taper of sedation, becomes tachypneic and tachycardic Poor prognosis F/u Surgery recommendations. Consider Trach/PEG as means of liberation from mechanical ventilator. Monitor hemoglobin closely. Transfuse if less than 7.0 grams/deciliter. ABG reviewed - alkalemia due to respiratory alkalosis. Chest x-ray imaging report reviewed, stable. Devices in place. Pulmonary vascular congestion. Right basilar airspace disease. No pleural effusion or pneumothorax. Rest of plan as outlined below. Plan: s/p intubation on mechanical ventilator CXR image and report reviewed. Devices in place. Pulmonary vascular congestion. Right bibasilar airspace opacities. No pleural effusion or pneumothorax. ABG reviewed. Compensated On assist control with a respiratory rate of 18, tidal volume 450, PEEP of 5, FiO2 of 30%. Titrate FIO2 to keep O2 saturation above 92%. VAP bundle Daily ABG and CXR while intubated. Sedate for ventilatory synchrony Pressors as necessary for hemodynamic support. Titrate to keep MAP above 65 mmHg/SBP above 90 mmHg. Continue antibiotics. F/u cultures. Monitor hemoglobin Transfuse if less than 7.0 grams/deciliter On IV fluids with lactated Ringer's at 75 mL an hour. Monitor renal function due to Acute kidney injury. Monitor electrolytes. Supplement as necessary. Surgery recommendations appreciated. Nutritional support. On TPN Accucheks, ISS. GI/DVT prophylaxis. Condition: Critical Prognosis: Poor given multiple comorbidities. Rest of plan per hospitalist and other consultants. A total of 35 minutes of critical care time was spent reviewing the patient record, examining the patient, making a diagnostic and therapeutic plan, discussing this plan with the medical personnel, following up on diagnostic studies and following the patient for clinical stability excluding any and all procedures. At least 50% of this time was spent in direct, [id number] contact. Thank you Dr Reid for allowing me to participate in this patient's care. Further recommendations will depend on patient's clinical course. Please do not hesitate to contact me if you have any questions or concerns. This medical document was created using an electronic medical record system with [employer] dictation system. Although this document has been carefully reviewed, there may still be some phonetic and typographical errors. These areas are purely typographical due to imperfections of the software programs, and do not reflect any compromise in the patient's medical care. Dietary Evaluation Review Comments: 1) Advance pt diet when medically feasible to a 2gmNa diet modified per SLOT SHIFT SUPERVISOR recommendations 2) Continue current plan of care Expected Outcomes/Goals: 1) Pt diet to advance 2) F/U in 2-3 days Plan discussed with: Other (YASH Paez) RG LEONE MD May 30, 2024 20:21
[2024-05-30] MEDS: TPN PER PHARMACY IV NR (20:22)
--- NOTE | 2024-05-30 21:32 | DVHPN2 ---
Progress Note Date Seen: May 30, 2024 Has the PT tested + for MRSA If YES, has PT been informed?: No Medical Necessity Reason Pt with a Central, PICC or Fol: Yes The following are medically ne: Muhammad Catheter Reason for muhammad catheter: Strict I&O Objective vital signs Vital Sign Date Time Temp Pulse Resp B/P (MAP) Pulse Ox O2 Delivery O2 Flow Rate FiO2 05/30/24 20:45 99.7 93 18 123/32 (62) 100 211.5 05/30/24 20:36 30 05/30/24 20:00 Mechanical Ventilator+ Total Intake and Output 05/29/24 05/29/24 05/30/24 14:59 22:59 06:59 Intake Total 1009.751 ml 1321.504 ml 858.690 ml Output Total 2790 ml 1310 ml Balance 1009.751 ml -1468.496 ml -451.310 ml medications Current Medications Medications Dose Ordered Sig/Nora Route Start Time Stop Time Status Last Admin Dose Admin Ondansetron HCl 4 mg Q4HP PRN IV 05/07/24 16:30 05/16/24 05:55 4 MG Fentanyl Citrate 250 ml @ 2.5 mls/hr Q24H IV 05/16/24 14:00 05/30/24 17:00 25 MLS/HR Midazolam HCl 50 ml @ 1 mls/hr Q24H IV 05/16/24 21:00 05/30/24 17:21 9 MLS/HR Phenylephrine HCl 250 ml @ 30 mls/hr Q8H20M IV 05/16/24 21:15 05/17/24 06:03 30 MLS/HR Acetaminophen 650 mg Q6HPRN PRN [place] 05/16/24 22:30 05/16/24 22:30 650 MG Pantoprazole Sodium 40 mg DAILY IV 05/17/24 10:00 05/30/24 10:21 40 MG Amino Acids 0 ml @ 0 mls/hr PER PHARMACY IV 05/17/24 08:30 Meropenem 50 ml @ 17 mls/hr Q8HR IV 05/18/24 14:00 05/30/24 13:10 17 MLS/HR Vancomycin HCl 0 ml @ 0 mls/hr UD IV 05/18/24 07:45 Metoprolol Tartrate 1.25 mg Q6HPRN PRN IV 05/18/24 16:00 05/18/24 16:17 1.25 MG Norepinephrine Bitartrate 32 mg/ Sodium Chloride 250 ml @ 0.938 mls/ hr Q24H IV 05/18/24 16:00 05/28/24 09:55 0.938 MLS/HR Amiodarone HCl 250 ml @ 16.667 mls/ hr Q15H IV 05/18/24 22:30 05/20/24 20:59 16.667 MLS/HR Potassium Chloride 100 ml @ 50 mls/hr Q2H IV 05/22/24 12:30 05/22/24 16:29 Cancel Micafungin Sodium 100 mg/Sodium Chloride 100 ml @ 100 mls/hr DAILY IV 05/23/24 10:00 05/30/24 10:25 100 MLS/HR Diagnostic Test (Pha) 1 strip Q6HR 05/24/24 12:00 05/30/24 18:30 1 STRIP Insulin Human Regular FOLLOW SLIDING SCALE Q6HR SC 05/24/24 12:00 05/30/24 18:32 4 UNITS Dextrose 50 ml UD IV 05/24/24 12:00 Vancomycin HCl 250 ml @ 250 mls/hr DAILY@1500 IV 05/25/24 15:00 05/30/24 16:30 250 MLS/HR Dexmedetomidine HCl 400 mcg/ Dextrose 100 ml @ 3.17 mls/hr Q24H IV 05/28/24 20:45 Fat Emulsion Intravenous 100 ml/Sodium Phosphate 40 meq/ Potassium Chloride 40 meq/ Magnesium Sulfate 24 meq/ Multivitamins 10 ml/Insulin Human Regular 16 units/ Amino Acids/ Dextrose/Purified Water 1,496.16 ml @ 62 mls/hr Q24H8M IV 05/30/24 20:00 05/31/24 19:59 05/30/24 20:22 62 MLS/HR Hydralazine HCl 10 mg Q6HP PRN IV 05/30/24 16:15 laboratory and microbiology Laboratory Tests 05/30/24 03:50 Test 05/30/24 03:50 Range/Units Serum Glucose 127 H 74-106 mg/dL Microbiology Date/Time Source Procedure Growth Status 05/24/24 17:06 Other Gram Stain - Final Resulted 05/24/24 17:06 Other Anaerobic Culture - Final Resulted 05/24/24 17:06 Aerobic Culture - Preliminary Yeast, not Shawanda albicans Resulted 05/17/24 01:52 Urine - [place] Urine Culture - Final Yeast, not Shawanda albicans Complete 05/16/24 22:55 Blood Blood Culture - Final NO GROWTH AFTER 5 DAYS OF INCUBATION. 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 BETTER VASOPRESSOR OFF WBC WNL ABD SOFT DRAIN IN PLACE SEROSANGUINEOUS RIGHT 30CC LESS PURULENT, LEFT 40 CC SEROSANGUINEOUS DRESSING ABD WOUND DRAINAGE NOTED AND EXPECTED BUT LESS REPEAT CT SCAN NOTED NO MAJOR COLLECTION CONDITION GUARDED ILEOSTOMY VIABLE AND FUNCTIONAL FAMILY UPDATED NURSE AT BEDSIDE CONTINUE SUPPORTIVE CARE Plan discussed with: Other Dietary Evaluation Review Comments: 1) Advance pt diet when medically feasible to a 2gmNa diet modified per RN ONCOLOGY RESEARCH recommendations 2) Continue current plan of care Expected Outcomes/Goals: 1) Pt diet to advance 2) F/U in 2-3 days SHEY COVARRUBIAS MD May 30, 2024 21:31
[2024-05-31] VITALS (109 sets, daily range): BP systolic 70–196; BP diastolic 21–125; PULSE 74–110; RESP 12–33; TEMP 97.7–100.6; O2SAT 96–100
--- NOTE | 2024-05-31 04:42 | DVH ---
CHEST RADIOGRAPH Indication:vent Technique: Single frontal view of the chest was obtained COMPARISON: XY CHEST PORTABLE on DOS: 05/30/24, XY CHEST PORTABLE on DOS: 05/29/24, XY CHEST PORTABLE on DOS: 05/28/24 FINDINGS: Lines and Tubes: Endotracheal tube, enteric catheter, right central venous catheter and right chest p ort in satisfactory position. Lungs: Mild congestion Pleura: No effusion. No pneumothorax. Cardiomediastinal contours: Unremarkable Bones: Unremarkable IMPRESSION: Lines and tubes in satisfactory position. No significant interval change.
[2024-05-31 04:57] LABS: Hematocrit 21.3 % (36.0-46.0); Hemoglobin 7.2 g/dL (12.2-16.2); Mean Corpuscular Hemoglobin 29.7 pg (28.0-32.0); Mean Corpuscular Volume 87.4 fL (80.0-100.0); Platelet Count (auto) 249 10^3/uL (140-450); Red Blood Cells 2.44 10^6/uL (4.0-5.20); Red Cell Distribution Width 14.6 % (11.8-14.3); White Blood Cell 6.3 10^3/uL (4.4-10.8)
[2024-05-31 04:59] LABS: Alanine Aminotransferase 20 U/L (7-40); Albumin 2.4 g/dL (3.2-4.8); Alkaline Phosphatase 120 U/L (46-116); Anion Gap 5 (5-15); Aspartate Aminotransferase 28 U/L (13-40); BUN/Creatinine Ratio 57.8 (10.0-20.0); Blood Urea Nitrogen 26 mg/dL (9-23); Calcium 8.7 mg/dL (8.7-10.4); Carbon Dioxide 27 mmol/L (20-31); Chloride 102 mmol/L (98-107); Glucose 125 mg/dL (74-106); Magnesium 2.1 mg/dL (1.6-2.6); Potassium 3.6 mmol/L (3.5-5.1); Sodium 134 mmol/L (136-145)
[2024-05-31 05:00] LABS: Band Neutrophils % (manual) 0; Basophils % (manual) 0 (0.0-2.0); Bilirubin, Total 2.1 mg/dL (0.2-1.0); Blast Cells 0; Metamyelocytes % 0; Myelocytes % 0; Phosphorus 3.6 mg/dL (2.4-5.1); Promyelocytes % 0; Reactive Lymphocytes 0; Total Protein 5.1 g/dL (5.7-8.2)
[2024-05-31 05:22] LABS: Eosinophils % (manual) 1 (0-7); Lymphocytes % (manual) 10 (10.0-50.0); Monocytes % (manual) 9 (0-12); Platelet Estimate Adequate
[2024-05-31 07:15] LABS: Base Excess 3.1 mmol/L (-2.0-3.0)
--- NOTE | 2024-05-31 09:29 | DVHPN2 ---
Progress Note Date Seen: May 31, 2024 Has the PT tested + for MRSA If YES, has PT been informed?: No Medical Necessity Reason Pt with a Central, PICC or Fol: Yes The following are medically ne: Muhammad Catheter Reason for muhammad catheter: Strict I&O Objective vital signs Vital Sign Date Time Temp Pulse Resp B/P (MAP) Pulse Ox O2 Delivery O2 Flow Rate FiO2 05/31/24 07:36 94 23 125/27 (59) 100 30 05/31/24 07:15 99.1 210.4 05/31/24 06:00 Mechanical Ventilator+ Total Intake and Output 05/30/24 05/30/24 05/31/24 15:00 23:00 07:00 Intake Total 864 ml 653 ml 712.5 ml Output Total 1520 ml 1075 ml Balance 864 ml -867 ml -362.5 ml medications Current Medications Medications Dose Ordered Sig/Nora Route Start Time Stop Time Status Last Admin Dose Admin Ondansetron HCl 4 mg Q4HP PRN IV 05/07/24 16:30 05/16/24 05:55 4 MG Fentanyl Citrate 250 ml @ 2.5 mls/hr Q24H IV 05/16/24 14:00 05/31/24 01:29 25 MLS/HR Midazolam HCl 50 ml @ 1 mls/hr Q24H IV 05/16/24 21:00 05/31/24 06:30 7 MLS/HR Phenylephrine HCl 250 ml @ 30 mls/hr Q8H20M IV 05/16/24 21:15 05/17/24 06:03 30 MLS/HR Acetaminophen 650 mg Q6HPRN PRN [place] 05/16/24 22:30 05/31/24 01:23 650 MG Pantoprazole Sodium 40 mg DAILY IV 05/17/24 10:00 05/30/24 10:21 40 MG Amino Acids 0 ml @ 0 mls/hr PER PHARMACY IV 05/17/24 08:30 Meropenem 50 ml @ 17 mls/hr Q8HR IV 05/18/24 14:00 05/31/24 05:22 17 MLS/HR Vancomycin HCl 0 ml @ 0 mls/hr UD IV 05/18/24 07:45 Metoprolol Tartrate 1.25 mg Q6HPRN PRN IV 05/18/24 16:00 05/18/24 16:17 1.25 MG Norepinephrine Bitartrate 32 mg/ Sodium Chloride 250 ml @ 0.938 mls/ hr Q24H IV 05/18/24 16:00 05/28/24 09:55 0.938 MLS/HR Amiodarone HCl 250 ml @ 16.667 mls/ hr Q15H IV 05/18/24 22:30 05/20/24 20:59 16.667 MLS/HR Potassium Chloride 100 ml @ 50 mls/hr Q2H IV 05/22/24 12:30 05/22/24 16:29 Cancel Micafungin Sodium 100 mg/Sodium Chloride 100 ml @ 100 mls/hr DAILY IV 05/23/24 10:00 05/30/24 10:25 100 MLS/HR Diagnostic Test (Pha) 1 strip Q6HR 05/24/24 12:00 05/31/24 05:22 1 STRIP Insulin Human Regular FOLLOW SLIDING SCALE Q6HR SC 05/24/24 12:00 05/31/24 05:26 2 UNITS Dextrose 50 ml UD IV 05/24/24 12:00 Vancomycin HCl 250 ml @ 250 mls/hr DAILY@1500 IV 05/25/24 15:00 05/30/24 16:30 250 MLS/HR Dexmedetomidine HCl 400 mcg/ Dextrose 100 ml @ 3.17 mls/hr Q24H IV 05/28/24 20:45 Fat Emulsion Intravenous 100 ml/Sodium Phosphate 40 meq/ Potassium Chloride 40 meq/ Magnesium Sulfate 24 meq/ Multivitamins 10 ml/Insulin Human Regular 16 units/ Amino Acids/ Dextrose/Purified Water 1,496.16 ml @ 62 mls/hr Q24H8M IV 05/30/24 20:00 05/31/24 19:59 05/30/24 20:22 62 MLS/HR Hydralazine HCl 10 mg Q6HP PRN IV 05/30/24 16:15 Fat Emulsion Intravenous 100 ml/Sodium Chloride 30 meq/ Sodium Phosphate 20 meq/Potassium Chloride 60 meq/ Magnesium Sulfate 16 meq/ Multivitamins 10 ml/Insulin Human Regular 14 units/ Amino Acids/ Dextrose/Purified Water 1,506.64 ml @ 62 mls/hr [id number] IV 05/31/24 20:00 06/01/24 19:59 laboratory and microbiology Laboratory Tests 05/31/24 04:36 Test 05/31/24 04:36 Range/Units Serum Glucose 125 H 74-106 mg/dL Microbiology Date/Time Source Procedure Growth Status 05/24/24 17:06 Other Gram Stain - Final Resulted 05/24/24 17:06 Other Anaerobic Culture - Final Resulted 05/24/24 17:06 Aerobic Culture - Preliminary Yeast, not Shawanda albicans Resulted 05/17/24 01:52 Urine - [place] Urine Culture - Final Yeast, not Shawanda albicans Complete 05/16/24 22:55 Blood Blood Culture - Final NO GROWTH AFTER 5 DAYS OF INCUBATION. 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 BETTER VASOPRESSOR OFF WBC WNL ABD SOFT DRAIN IN PLACE SEROSANGUINEOUS RIGHT 20CC LESS PURULENT, LEFT 10 CC SEROSANGUINEOUS DRESSING ABD WOUND DRAINAGE NOTED AND EXPECTED BUT LESS REPEAT CT SCAN NOTED NO MAJOR COLLECTION CONDITION GUARDED ILEOSTOMY VIABLE AND FUNCTIONAL FAMILY UPDATED NURSE AT BEDSIDE CONTINUE SUPPORTIVE CARE PULM EVAL ONGOING Plan discussed with: Patient Dietary Evaluation Review Comments: 1) Advance pt diet when medically feasible to a 2gmNa diet modified per [employer]ST FRONT PRESSER recommendations 2) Continue current plan of care Expected Outcomes/Goals: 1) Pt diet to advance 2) F/U in 2-3 days SHEY COVARRUBIAS MD May 31, 2024 09:29
--- NOTE | 2024-05-31 10:55 | DVHPN2 ---
Progress Note - Dictate Date Seen: May 31, 2024 Has the PT tested + for MRSA If YES, has PT been informed?: No Medical Necessity Reason Pt with a Central, PICC or Fol: Yes The following are medically ne: Muhammad Catheter Reason for muhammad catheter: Strict I&O Subjective Ms. Barrera is a 68 years old right-handed female with a history of hypertension, anemia, breast cancer, she was admitted to [facility] on 05/[facility]2024 for scheduled hysterectomy and oophorectomy. Post surgically, she woke up with left-sided weakness, and MRI showed multiple stroke in the right MCA territory. During the hospital stay, she developed fall perforation, and she went through abdominal surgery on 05/16/2024 Because of ongoing intraperitoneal sepsis/peritonitis, the patient went through exploratory laparotomy on 05/24/2024 I have seen and examined the patient in the ICU, I have discussed with her nurse. She is respond to painful stimuli, She keeps spiking temperature The right-sided drainage looks cloudy The right pupil is slightly bigger, but without associated left eye ptosis, abnormal vascular dilatation and skin secretion CBC, 05/16/2024: Metabolic acidosis, 05/17/2024: Metabolic acidosis, 05/18/2024: Metabolic acidosis URINALYSIS, 05/11/2024: WBC: 2, URINE LEUKOCYTE ESTERASE: NEGATIVE WBC/HB/PLT/MCV, 05/04: 5.1/10.7/119/98.3, 05/17/2024: 20.4/8.5/205/86.9 05/19/2024: 12.2/11.1/125/86.2, 05/20/2024: 8.1/10.5/113/86.1, 05/21/2024: 6.6/10.5/106/86.5, 05/26/2024: 9.6/9.2/184/93.8, 05/28/2024: 7.5/7/223/89.6, 05/29/24: 6.8/5.9/251/88.1, 05/30/2024: 7.4/7.7/268/86.6 PT/INR/FTT, 05/16/2024: 17.4/1.71/34.2 K, 05/09/2024: 3.9, 05/10/24:3.1, 05/12/2024: 3.4, 05/16/2024: 2.8 Lactic acid, 05/15/2024: 1.6, 05/16/2024: 1.5 HCO3, 05/23/2024: 35 Bun.Cr, 05/23/2024: 37/0.75 LIVER FUNCTION TESTS, 05/12/2024: UNREMARKABLE, 05/16/2024: Unremarkable TBI/AST/ALT/AP, 05/18/2024: 1.2//, 05/19/2024: 3.1/04/23/2067, 05/23/2024: 3.1/48/35/170, 05/29/2024: 2.3///117 TG/HDL/LDL/HDL, 05/12/2024: 196/134/75/23 TSH, 05/12/2024: 2.01 Echocardiogram 05/14/2024: lvef 65% by visual estimate mild mitral regurg RV enlarged mild left atrium enlarged mild Carotid Doppler, 05/11/2024: 1. Occlusion of the right proximal ICA. 2. Greater than 50% stenosis of the right proximal ECA. 3. Greater than 50% stenosis of the left proximal ICA CT head, 05/11/2024: 1. Chronic lacunar infarct in right centrum semiovale. 2. Chronic periventricular ischemic changes. 3. Cerebral and cerebellar atrophy, likely age-related. 4. Advised further evaluation with MRI brain without contrast if clinically indicated CT abdomen/pelvis, 05/15/2024: Small bowel obstruction with evidence of perforation including free intraperitoneal fluid and air. Extensive subcutaneous emphysema likely secondary to bowel perforation CT abdomen/pelvis, 05/16/2024: 1. Sequelae of recent postsurgical changes as described above. Correlate with surgical history. 2. Pneumoperitoneum and free fluid in the abdomen and pelvis. 3. Large collection containing fluid and gas, predominantly in the right hemiabdomen. There is GI contrast extending into this collection from an adjacent small bowel loop. There is a component of this collection extending adjacent to the anterior superior aspect of the liver. 4. Moderate right hydronephrosis and hydroureter. The distal right ureter appears to be compressed by the large fluid collection in the right hemiabdomen. No obstructing calculus. 5. Dilated small bowel loops in the left hemiabdomen with suspected small-bowel obstruction. 6. Prominent subcutaneous edema in the ventral abdominal wall and extending caudally into the inguinal regions bilaterally, peroneal region, and anterior aspect of the left thigh. 7. Small bilateral pleural effusions with overlying atelectasis. 8. Additional findings as detailed above. CT abdomen, 05/23/2024: Postsurgical changes of the ventral abdomen with interval improvement in the diffuse soft tissue edema and ventral abdominal, pelvis and upper thigh subcutaneous emphysema. Interval significant decrease in size of the loculated collection within the right hemiabdomen and pelvis with small residual. Interval placement of drainage catheters terminating over the left upper abdominal quadrant and left hemipelvis as detailed above. Interval development of small to moderate ascites. Wall thickening of fluid-filled nondistended small bowel loops of the anterior mid to lower abdomen which may be from the surrounding ascites versus enteritis. Additional findings as above CT abdomen staff pelvis, 05/30/2024: 1. Radiodense contrast in the mid abdomen associated with surgical sutures. It is unclear whether this is in bowel or represents a bowel leak. Clinical correlation and continued follow-up is recommended. 2. Right pelvic, anterior abdominal wall and left abdomen drainage catheters in place. No definite abscess identified. 3. Extensive post postsurgical changes of the bowel. 4. Small amount of abdominal and pelvic ascities. 5. Small to moderate right pleural effusion. CTA neck, head, 05/14/24: 1. Complete occlusion of the right cervical internal carotid artery. There may be trickle flow in distal right cervical ICA. 2. Poor flow in the right intracranial ICA likely retrograde perfusion through the contralateral left side posterior circulation through the communicating arteries. 3. High-grade stenosis at the left carotid bulb with at least 70-80% stenosis. Moderate short-segment stenosis in the left proximal ICA with at least 60% stenosis. MRI HEAD, 05/11/2024: 1. Multiple foci of restricted diffusion in the right centrum semiovale and along the right superior frontal lobe compatible with acute to subacute infarcts. There is no evidence of acute hemorrhage or significant surrounding edema. 2. Absence of flow void in the intracranial portions of the right internal carotid artery which is likely occluded. vital signs Vital Sign Date Time Temp Pulse Resp B/P (MAP) Pulse Ox O2 Delivery O2 Flow Rate FiO2 05/31/24 09:59 106 16 142/65 (90) 100 30 05/31/24 07:15 99.1 210.4 05/31/24 06:00 Mechanical Ventilator+ Total Intake and Output 05/30/24 05/30/24 05/31/24 15:00 23:00 07:00 Intake Total 864 ml 653 ml 818.5 ml Output Total 1520 ml 1075 ml Balance 864 ml -867 ml -256.5 ml medications Current Medications Medications Dose Ordered Sig/Nora Route Start Time Stop Time Status Last Admin Dose Admin Ondansetron HCl 4 mg Q4HP PRN IV 05/07/24 16:30 05/16/24 05:55 4 MG Fentanyl Citrate 250 ml @ 2.5 mls/hr Q24H IV 05/16/24 14:00 05/31/24 01:29 25 MLS/HR Midazolam HCl 50 ml @ 1 mls/hr Q24H IV 05/16/24 21:00 05/31/24 06:30 7 MLS/HR Phenylephrine HCl 250 ml @ 30 mls/hr Q8H20M IV 05/16/24 21:15 05/17/24 06:03 30 MLS/HR Acetaminophen 650 mg Q6HPRN PRN [place] 05/16/24 22:30 05/31/24 01:23 650 MG Pantoprazole Sodium 40 mg DAILY IV 05/17/24 10:00 05/31/24 09:54 40 MG Amino Acids 0 ml @ 0 mls/hr PER PHARMACY IV 05/17/24 08:30 Meropenem 50 ml @ 17 mls/hr Q8HR IV 05/18/24 14:00 05/31/24 05:22 17 MLS/HR Vancomycin HCl 0 ml @ 0 mls/hr UD IV 05/18/24 07:45 Metoprolol Tartrate 1.25 mg Q6HPRN PRN IV 05/18/24 16:00 05/18/24 16:17 1.25 MG Norepinephrine Bitartrate 32 mg/ Sodium Chloride 250 ml @ 0.938 mls/ hr Q24H IV 05/18/24 16:00 05/28/24 09:55 0.938 MLS/HR Amiodarone HCl 250 ml @ 16.667 mls/ hr Q15H IV 05/18/24 22:30 05/20/24 20:59 16.667 MLS/HR Potassium Chloride 100 ml @ 50 mls/hr Q2H IV 05/22/24 12:30 05/22/24 16:29 Cancel Micafungin Sodium 100 mg/Sodium Chloride 100 ml @ 100 mls/hr DAILY IV 05/23/24 10:00 05/31/24 09:55 100 MLS/HR Diagnostic Test (Pha) 1 strip Q6HR 05/24/24 12:00 05/31/24 05:22 1 STRIP Insulin Human Regular FOLLOW SLIDING SCALE Q6HR SC 05/24/24 12:00 05/31/24 05:26 2 UNITS Dextrose 50 ml UD IV 05/24/24 12:00 Dexmedetomidine HCl 400 mcg/ Dextrose 100 ml @ 3.17 mls/hr Q24H IV 05/28/24 20:45 Fat Emulsion Intravenous 100 ml/Sodium Phosphate 40 meq/ Potassium Chloride 40 meq/ Magnesium Sulfate 24 meq/ Multivitamins 10 ml/Insulin Human Regular 16 units/ Amino Acids/ Dextrose/Purified Water 1,496.16 ml @ 62 mls/hr Q24H8M IV 05/30/24 20:00 05/31/24 19:59 05/30/24 20:22 62 MLS/HR Hydralazine HCl 10 mg Q6HP PRN IV 05/30/24 16:15 Fat Emulsion Intravenous 100 ml/Sodium Chloride 30 meq/ Sodium Phosphate 20 meq/Potassium Chloride 60 meq/ Magnesium Sulfate 16 meq/ Multivitamins 10 ml/Insulin Human Regular 14 units/ Amino Acids/ Dextrose/Purified Water 1,506.64 ml @ 62 mls/hr [id number] IV 05/31/24 20:00 06/01/24 19:59 Vancomycin HCl 200 ml @ 200 mls/hr DAILY@1500 IV 05/31/24 15:00 objective General: the patient is well developed and nourished. No acute distress. ABDOMEN: Status post surgery MENTAL STATUS: Subjective. CRANIAL NERVES: Pupils are round and reactivel. There are corneal reflexes and doll's eyes phenomenon. No signs of facial weakness. There are weak gagging or coughing reflexes SENSATION: No responses to pain stimuli. MOTOR: Normal tone in the upper and lower extremity. Normal muscle bulk. No fasciculations. No spontaneous movement. REFLEXES: Deep tendon reflexes are symmetrical. No pathological reflexes. CEREBELLAR/COORDINATION: Deferred GAIT/STATION: deferred. laboratory and microbiology Laboratory Tests 05/31/24 04:36 Test 05/31/24 04:36 Range/Units Serum Glucose 125 H 74-106 mg/dL Problem List Pelvic prolapse, can count urethrovesical junction, surgery repair on 05/07/2024 (Robotic supracervical hysterectomy bilateral salpingo-oophorectomy colposcopic pexy cystocele repair urethral sling partial vaginectomy) Bowel obstruction with perforation, intra-abdominal abscess, dense at [place], status post surgery 05/16/2024 Sepsis/septic shock Metabolic encephalopathy Acute right MCA territory multiple strokes Left hemiparesis Right ICA occlusion Left ICA severe stenosis Anemia, with unstable H&H Status post oophorectomy, hysterectomy Anisocoria, uncertain clinical significance Assessment/Plan Monitoring Supportive treatment ICU care Stabilize vitals/pressor drip Respiratory support/vent management IV antibiotics Oxygen Hold off Aspirin 81 mg q.d. Hold off Plavix 75 mg daily for 21 days Lipitor 20 mg daily (NPO) TPN Up to chair Physical therapy Further address bilateral carotid stenosis CLARA on discharge Surgery on case More recommendation per clinical course This medical document was created using an electronic medical record system with [employer] dictation system. Although this document has been carefully reviewed, there may still be some phonetic and typographical errors. These areas are purely typographical due to imperfections of the software programs, and do not reflect any compromise in the patient's medical care Prognosis guarded Dietary Evaluation Review Comments: 1) Advance pt diet when medically feasible to a 2gmNa diet modified per FRUIT TESTER recommendations 2) Continue current plan of care Expected Outcomes/Goals: 1) Pt diet to advance 2) F/U in 2-3 days Plan discussed with: Other BRYAN FLORES MD May 31, 2024 10:55
--- NOTE | 2024-05-31 11:44 | DVHPN2 ---
Subjective Intubated and sedated Reviewed: Care Plan, H&P, Labs, Medications, Previous Orders, Radiology Changes from previous H/P or p: Changes General: Per HPI Eyes: No Pain, No Vision change, No Conjunctivae inflammation, No Eyelid inflammation, No Other, No Redness ENT: No Ear pain, No Ear discharge, No Nose pain, No Nose discharge, No Nose congestion, No Mouth pain, No Mouth swelling, No Throat pain, No Throat swelling, No Other Cardiovascular: No Chest Pain, No Palpitations, No Orthopnea, No Paroxysmal Noc. Dyspnea, No Edema, No Lt Headedness, No Other Respiratory: No Cough, No Dry, No Shortness of breath, No SOB with excertion, No Wheezing, No Hemoptysis, No Pleuritic Pain, No Sputum, No Other Gastrointestinal: Nausea Genitourinary: No Dysuria, No Frequency, No Incontinence, No Hematuria, No Retention, No Other Musculoskeletal: No other, No neck pain, No shoulder pain, No arm pain, No back pain, No hand pain, No leg pain, No foot pain Skin: No Rash, No Lesions, No Jaundice, No Bruising, No Other Objective Vitals Vital Signs Date Time Temp Pulse Resp B/P (MAP) Pulse Ox O2 Delivery O2 Flow Rate FiO2 05/31/24 09:59 106 16 142/65 (90) 100 30 05/31/24 07:15 99.1 210.4 05/31/24 06:00 Mechanical Ventilator+ Intake/Output Intake and Output 05/31/24 07:00 Intake Total 2335.5 ml Output Total 2595 ml Balance -259.5 ml Intake Oral 0 ml IV Total 2335.5 ml Output Urine Total 2200 ml Gastric Drainage Total 0 ml Drainage Total 70 ml Other 325 ml General Appearance: moderate distress, Other (Intubated and sedated) HEENT: Atraumatic, PERRLA, Other (Pupils equal, 4 mm, reactive to light to 3 mm) Lungs: Clear to auscultation, Normal air movement, Other (Mechanical ventilation) Cardiovascular: Regular rate, Normal S1, Normal S2 Abdomen: Other (Ileostomy with drainage. 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) Skin: Dry, Intact, Other (Surgical incision dry and intact) Psych/Mental Status: Mental status NL, Mood NL Medications Current Medications Medications Dose Ordered Sig/Nora Route Start Time Stop Time Status Last Admin Dose Admin Ondansetron HCl 4 mg Q4HP PRN IV 05/07/24 16:30 05/16/24 05:55 4 MG Fentanyl Citrate 250 ml @ 2.5 mls/hr Q24H IV 05/16/24 14:00 05/31/24 01:29 25 MLS/HR Midazolam HCl 50 ml @ 1 mls/hr Q24H IV 05/16/24 21:00 05/31/24 06:30 7 MLS/HR Phenylephrine HCl 250 ml @ 30 mls/hr Q8H20M IV 05/16/24 21:15 05/17/24 06:03 30 MLS/HR Acetaminophen 650 mg Q6HPRN PRN AL 05/16/24 22:30 05/31/24 01:23 650 MG Pantoprazole Sodium 40 mg DAILY IV 05/17/24 10:00 05/31/24 09:54 40 MG Amino Acids 0 ml @ 0 mls/hr PER PHARMACY IV 05/17/24 08:30 Meropenem 50 ml @ 17 mls/hr Q8HR IV 05/18/24 14:00 05/31/24 05:22 17 MLS/HR Vancomycin HCl 0 ml @ 0 mls/hr UD IV 05/18/24 07:45 Metoprolol Tartrate 1.25 mg Q6HPRN PRN IV 05/18/24 16:00 05/18/24 16:17 1.25 MG Norepinephrine Bitartrate 32 mg/ Sodium Chloride 250 ml @ 0.938 mls/ hr Q24H IV 05/18/24 16:00 05/28/24 09:55 0.938 MLS/HR Amiodarone HCl 250 ml @ 16.667 mls/ hr Q15H IV 05/18/24 22:30 05/20/24 20:59 16.667 MLS/HR Potassium Chloride 100 ml @ 50 mls/hr Q2H IV 05/22/24 12:30 05/22/24 16:29 Cancel Micafungin Sodium 100 mg/Sodium Chloride 100 ml @ 100 mls/hr DAILY IV 05/23/24 10:00 05/31/24 09:55 100 MLS/HR Diagnostic Test (Pha) 1 strip Q6HR 05/24/24 12:00 05/31/24 05:22 1 STRIP Insulin Human Regular FOLLOW SLIDING SCALE Q6HR SC 05/24/24 12:00 05/31/24 05:26 2 UNITS Dextrose 50 ml UD IV 05/24/24 12:00 Dexmedetomidine HCl 400 mcg/ Dextrose 100 ml @ 3.17 mls/hr Q24H IV 05/28/24 20:45 Fat Emulsion Intravenous 100 ml/Sodium Phosphate 40 meq/ Potassium Chloride 40 meq/ Magnesium Sulfate 24 meq/ Multivitamins 10 ml/Insulin Human Regular 16 units/ Amino Acids/ Dextrose/Purified Water 1,496.16 ml @ 62 mls/hr Q24H8M IV 05/30/24 20:00 05/31/24 19:59 05/30/24 20:22 62 MLS/HR Hydralazine HCl 10 mg Q6HP PRN IV 05/30/24 16:15 Fat Emulsion Intravenous 100 ml/Sodium Chloride 30 meq/ Sodium Phosphate 20 meq/Potassium Chloride 60 meq/ Magnesium Sulfate 16 meq/ Multivitamins 10 ml/Insulin Human Regular 14 units/ Amino Acids/ Dextrose/Purified Water 1,506.64 ml @ 62 mls/hr [id number] IV 05/31/24 20:00 06/01/24 19:59 Vancomycin HCl 200 ml @ 200 mls/hr DAILY@1500 IV 05/31/24 15:00 Laboratory Results Laboratory Tests 05/31/24 04:36 Chemistry Test 05/31/24 04:36 Albumin 2.4 g/dL (3.2-4.8) L Calcium Level 8.7 mg/dL (8.7-10.4) Magnesium Level 2.1 mg/dL (1.6-2.6) Phosphorus Level 3.6 mg/dL (2.4-5.1) Total Protein 5.1 g/dL (5.7-8.2) L LFT Test 05/31/24 04:36 Alanine Aminotransferase (ALT) 20 U/L (7-40) Alkaline Phosphatase 120 U/L (46-116) H Aspartate Amino Transferase (AST) 28 U/L (13-40) Total Bilirubin 2.1 mg/dL (0.2-1.0) H Urinalysis Test 05/11/24 16:18 Urine Color Yellow (Yellow) Urine Clarity Clear (Clear) Urine pH 6.0 (5.0-9.0) Urine Specific [place] 1.020 (1.001-1.035) Urine Protein 1+ (Negative) H Urine Ketones 4+ (Negative) H Urine Blood Trace /uL (Negative) H Urine Nitrite Negative (Negative) Urine Bilirubin Negative (Negative) Urine Urobilinogen Normal mg/dL (Negative) Urine Leukocyte Esterase Negative /uL (Negative) Urine RBC 2 /hpf (0 - 4) Urine WBC 2 /hpf (0 - 5) Urine Squamous Epithelial Cells Few /hpf (<5) Urine Bacteria None seen /hpf (None Seen) Urine Mucus Few (None Seen) Urine Glucose Normal mg/dL (Normal) Blood Gas Results Test 05/31/24 07:00 Arterial Blood pH 7.503 (7.350-7.450) FiO2 % 30.0 Microbiology Microbiology Date/Time Source Procedure Growth Status 05/24/24 17:06 Other Gram Stain - Final Complete 05/24/24 17:06 Other Anaerobic Culture - Final Complete 05/24/24 17:06 Aerobic Culture - Final Yeast, not Shawanda albicans Complete 05/17/24 01:52 Urine - [place] Urine Culture - Final Yeast, not Shawanda albicans Complete 05/16/24 22:55 Blood Blood Culture - Final NO GROWTH AFTER 5 DAYS OF INCUBATION. Complete 05/16/24 14:20 Sputum Gram Stain - Final Complete 05/16/24 14:20 Respiratory Culture - Final Yeast, not Shawanda albicans Complete Assessment/Plan Assessment/Plan Robotic surgery hysterectomy and salpingo-oophorectomy complicated by Acute CVA Acute CVA w LUE hemiparesis Bowel perforation with repeat exploratory laparotomy with ileostomy creation History of breast cancer with bilateral mastectomies Afib RVR Acute hypoxic respiratory failure Mechanical intubation Exploratory laparotomy, drainage of intraabdominal abscess, thorough peritoneal lavage with reinforcement of the anastomotic location of the previous anastomosis as well as a diverting loop ileostomy on 05/24/24 Anemia Plan Mechanical ventilation TPN IV antibiotics: Vancomycin + Meropenem No vasopressors Sedation prn GI Prophylaxis: Protonix Transfuse blood prn 05/29/24: Transfuse 1 unit RBCs for Hb 5.9 Lasix 20 mg IV x1 Check Hb after transfusion Off pressors Antibiotics: Meropenem, Vanco, Micafungin Amiodarone IV Taper sedation down as tolerated CXR: Clear TPN Protonix 05/30/24: Discussed with Dr. [place] Will do CT ABD pelvis to follow up on abscess IV antibiotics Taper sedation down C-PAP? per Dr. Poon 05/31/24: CT abdomen showed no fluid collection IV antibiotics: Meropenem, Vancomycin & Micafungin Amiodarone Dr. [place] recommended to continue medical treatment, no surgical intervention Sedation as needed TPN Plan discussed with: Other My Orders Orders - BARI MOORE MD Procedure Category Date Status Time Hydralazine Injection PHA 05/30/24 In Process (Apresoline Inject 16:15 Date of Service: May 31, 2024 Billing Provider: BARI MOORE MD Common Visit Codes: NOT BILLABLE BARI MOORE MD May 31, 2024 11:44
[2024-05-31] MEDS: VANCOMYCIN 1GM/250ML KIT 200 ML IV SCH (18:02)
--- NOTE | 2024-05-31 18:44 | DVHPN2 ---
Progress Note - Dictate Date Seen: May 31, 2024 Has the PT tested + for MRSA If YES, has PT been informed?: No Medical Necessity Reason Pt with a Central, PICC or Fol: Yes The following are medically ne: Muhammad Catheter Reason for muhammad catheter: Strict I&O Subjective Patient seen and examined at bedside. Sedated, intubated on mechanical ventilator. Overnight events reviewed. vital signs Vital Sign Date Time Temp Pulse Resp B/P (MAP) Pulse Ox O2 Delivery O2 Flow Rate FiO2 05/31/24 18:12 92 23 145/41 (75) 100 30 05/31/24 07:15 99.1 210.4 05/31/24 06:00 Mechanical Ventilator+ Total Intake and Output 05/30/24 05/30/24 05/31/24 15:00 23:00 07:00 Intake Total 864 ml 653 ml 818.5 ml Output Total 1520 ml 1075 ml Balance 864 ml -867 ml -256.5 ml medications Current Medications Medications Dose Ordered Sig/Nora Route Start Time Stop Time Status Last Admin Dose Admin Ondansetron HCl 4 mg Q4HP PRN IV 05/07/24 16:30 05/16/24 05:55 4 MG Fentanyl Citrate 250 ml @ 2.5 mls/hr Q24H IV 05/16/24 14:00 05/31/24 12:56 22.5 MLS/HR Midazolam HCl 50 ml @ 1 mls/hr Q24H IV 05/16/24 21:00 05/31/24 12:51 7 MLS/HR Phenylephrine HCl 250 ml @ 30 mls/hr Q8H20M IV 05/16/24 21:15 05/17/24 06:03 30 MLS/HR Acetaminophen 650 mg Q6HPRN PRN [place] 05/16/24 22:30 05/31/24 01:23 650 MG Pantoprazole Sodium 40 mg DAILY IV 05/17/24 10:00 05/31/24 09:54 40 MG Amino Acids 0 ml @ 0 mls/hr PER PHARMACY IV 05/17/24 08:30 Meropenem 50 ml @ 17 mls/hr Q8HR IV 05/18/24 14:00 05/31/24 13:56 17 MLS/HR Vancomycin HCl 0 ml @ 0 mls/hr UD IV 05/18/24 07:45 Metoprolol Tartrate 1.25 mg Q6HPRN PRN IV 05/18/24 16:00 05/18/24 16:17 1.25 MG Norepinephrine Bitartrate 32 mg/ Sodium Chloride 250 ml @ 0.938 mls/ hr Q24H IV 05/18/24 16:00 05/28/24 09:55 0.938 MLS/HR Amiodarone HCl 250 ml @ 16.667 mls/ hr Q15H IV 05/18/24 22:30 05/20/24 20:59 16.667 MLS/HR Potassium Chloride 100 ml @ 50 mls/hr Q2H IV 05/22/24 12:30 05/22/24 16:29 Cancel Micafungin Sodium 100 mg/Sodium Chloride 100 ml @ 100 mls/hr DAILY IV 05/23/24 10:00 05/31/24 09:55 100 MLS/HR Diagnostic Test (Pha) 1 strip Q6HR 05/24/24 12:00 05/31/24 18:03 1 STRIP Insulin Human Regular FOLLOW SLIDING SCALE Q6HR SC 05/24/24 12:00 05/31/24 18:12 2 UNITS Dextrose 50 ml UD IV 05/24/24 12:00 Dexmedetomidine HCl 400 mcg/ Dextrose 100 ml @ 3.17 mls/hr Q24H IV 05/28/24 20:45 Fat Emulsion Intravenous 100 ml/Sodium Phosphate 40 meq/ Potassium Chloride 40 meq/ Magnesium Sulfate 24 meq/ Multivitamins 10 ml/Insulin Human Regular 16 units/ Amino Acids/ Dextrose/Purified Water 1,496.16 ml @ 62 mls/hr Q24H8M IV 05/30/24 20:00 05/31/24 19:59 05/30/24 20:22 62 MLS/HR Hydralazine HCl 10 mg Q6HP PRN IV 05/30/24 16:15 Fat Emulsion Intravenous 100 ml/Sodium Chloride 30 meq/ Sodium Phosphate 20 meq/Potassium Chloride 60 meq/ Magnesium Sulfate 16 meq/ Multivitamins 10 ml/Insulin Human Regular 14 units/ Amino Acids/ Dextrose/Purified Water 1,506.64 ml @ 62 mls/hr [id number] IV 05/31/24 20:00 06/01/24 19:59 Vancomycin HCl 200 ml @ 200 mls/hr DAILY@1500 IV 05/31/24 15:00 05/31/24 18:02 200 MLS/HR objective Gen.: Patient lying in bed in medical ICU. Sedated, intubated on mechanical ventilator. Head: Normocephalic, atraumatic. Eyes: PERRLA. Ears: Normal external anatomy. Throat: Endotracheal tube and orogastric tube in place. Neck: Supple, trachea midline. Chest: Transmitted breath sounds bilaterally. Decreased air entry bilaterally. No wheezing. Bibasilar crackles. Cardio vascular: Positive S1, positive S2. Regular rate and rhythm. Abdomen: Positive bowel sounds in all 4 quadrants. Soft, nontender, nondistended. : Muhammad in place. Normal external genitalia. Rectal: Deferred Skin: Warm, dry. Intact. Extremities: 2+ radial pulses bilaterally. No lower extremity edema. Neuro: Sedated. laboratory and microbiology Laboratory Tests 05/31/24 04:36 Test 05/31/24 04:36 Range/Units Serum Glucose 125 H 74-106 mg/dL Assessment/Plan Impression: Acute hypoxic respiratory failure On mechanical ventilator Abdominal pain due to recent robotic surgery hysterectomy and salpingo- oophorectomy History of breast cancer with bilateral mastectomies History of bowel surgery and ileostomy Anemia due to hemorrhage on hemodilution Shock Chronic pain syndrome Anemia Atrial fibrillation with RVR Bowel perforation with repeat exploratory laparotomy with ileostomy creation Events: Remains on vent support On assist control with a respiratory rate of 18, tidal volume 450, PEEP of 5, FiO2 of 30%. Off Levophed TPN for nutritional support. EVARISTO drain Continue antibiotics Surgery recommendations appreciated. Patient remains on sedation with fentanyl and Versed drips. Patient has not tolerated taper of sedation, becomes tachypneic and tachycardic CPAP with PS 8, PEEP of 5 Potassium supplementation Monitor renal function Monitor hemoglobin closely. Transfuse if less than 7.0 grams/deciliter. Poor prognosis Consider Trach/PEG as means of liberation from mechanical ventilator. ABG reviewed - alkalemia due to respiratory alkalosis. Chest x-ray imaging report reviewed, stable. Devices in place. Mild pulmonary vascular congestion. No pleural effusion or pneumothorax. Rest of plan as outlined below. Plan: s/p intubation on mechanical ventilator CXR image and report reviewed. Devices in place. Pulmonary vascular congestion. Right bibasilar airspace opacities. No pleural effusion or pneumothorax. ABG reviewed. Compensated On assist control with a respiratory rate of 18, tidal volume 450, PEEP of 5, FiO2 of 30%. Titrate FIO2 to keep O2 saturation above 92%. VAP bundle Daily ABG and CXR while intubated. Sedate for ventilatory synchrony Pressors as necessary for hemodynamic support. Titrate to keep MAP above 65 mmHg/SBP above 90 mmHg. Continue antibiotics. F/u cultures. Monitor hemoglobin Transfuse if less than 7.0 grams/deciliter On IV fluids with lactated Ringer's at 75 mL an hour. Monitor renal function due to Acute kidney injury. Monitor electrolytes. Supplement as necessary. Surgery recommendations appreciated. Nutritional support. On TPN Accucheks, ISS. GI/DVT prophylaxis. Condition: Critical Prognosis: Poor given multiple comorbidities. Rest of plan per hospitalist and other consultants. A total of 35 minutes of critical care time was spent reviewing the patient record, examining the patient, making a diagnostic and therapeutic plan, discussing this plan with the medical personnel, following up on diagnostic studies and following the patient for clinical stability excluding any and all procedures. At least 50% of this time was spent in direct, [id number] contact. Thank you Dr Reid for allowing me to participate in this patient's care. Further recommendations will depend on patient's clinical course. Please do not hesitate to contact me if you have any questions or concerns. This medical document was created using an electronic medical record system with [employer] dictation system. Although this document has been carefully reviewed, there may still be some phonetic and typographical errors. These areas are purely typographical due to imperfections of the software programs, and do not reflect any compromise in the patient's medical care. Dietary Evaluation Review Comments: 1) Advance pt diet when medically feasible to a 2gmNa diet modified per CRTTS recommendations 2) Continue current plan of care Expected Outcomes/Goals: 1) Pt diet to advance 2) F/U in 2-3 days Plan discussed with: Other (YASH Ruiz) Critical Care Time(min): 35 RG LEONE MD May 31, 2024 18:44
[2024-05-31] MEDS: NOREPINEPHRINE 8 MG/250ML KIT 0 ML IV ONE (18:57)
[2024-05-31] MEDS: TPN PER PHARMACY IV NR (21:16)
[2024-06-01] VITALS (111 sets, daily range): BP systolic 82–222; BP diastolic 16–74; PULSE 71–112; RESP 2–33; TEMP 98.2–100.2; O2SAT 98–100
[2024-06-01 04:45] LABS: Basophils # (auto) 0 10 ^3/uL (0-0.2); Basophils % (auto) 0.5 % (0.0-2.0); Eosinophils # (auto) 0.1 10 ^3/uL (0-0.8); Eosinophils % (auto) 1.4 % (0.0-7.0); Hematocrit 24.8 % (36.0-46.0); Hemoglobin 8.5 g/dL (12.2-16.2); Lymphocytes # (auto) 0.4 10 ^3/uL (0.4-5.4); Lymphocytes % (auto) 4.4 % (10.0-50.0); Mean Corpuscular Hemoglobin 29.8 pg (28.0-32.0); Mean Corpuscular Hgb Conc. 34.2 g/dL (32.0-36.0); Mean Corpuscular Volume 87.1 fL (80.0-100.0); Monocytes # (auto) 0.8 10 ^3/uL (0-1.3); Monocytes % (auto) 9.3 % (0.0-12.0); Neutrophils # (auto) 7.4 10 ^3/uL (1.6-8.6); Neutrophils % (auto) 84.4 % (37.0-80.0); Platelet Count (auto) 316 10^3/uL (140-450); Red Blood Cells 2.85 10^6/uL (4.0-5.20); Red Cell Distribution Width 14.7 % (11.8-14.3); White Blood Cell 8.8 10^3/uL (4.4-10.8)
[2024-06-01 05:01] LABS: Alanine Aminotransferase 24 U/L (7-40); Alkaline Phosphatase 149 U/L (46-116); Anion Gap 5 (5-15); Blood Urea Nitrogen 24 mg/dL (9-23); Calcium 9.1 mg/dL (8.7-10.4); Carbon Dioxide 26 mmol/L (20-31); Chloride 104 mmol/L (98-107); Glucose 154 mg/dL (74-106); Magnesium 2.2 mg/dL (1.6-2.6); Potassium 3.9 mmol/L (3.5-5.1); Sodium 135 mmol/L (136-145); Triglycerides 208 mg/dL (< 150)
[2024-06-01 05:02] LABS: Albumin 2.6 g/dL (3.2-4.8); Aspartate Aminotransferase 29 U/L (13-40); Bilirubin, Total 2.2 mg/dL (0.2-1.0); Phosphorus 3.3 mg/dL (2.4-5.1)
[2024-06-01 06:23] LABS: Base Excess 0.8 mmol/L (-2.0-3.0)
--- NOTE | 2024-06-01 13:12 | DVH ---
Bilateral Upper Extremity Venous Duplex Clinical History: REDNESS/SWELLING Comparison: None Findings: Duplex Doppler evaluation of the venous systems of the right and left lower neck and upper extremitie s including color Doppler and spectral/pulsed waveform analysis was performed. RIGHT SIDE: The internal jugular vein is not visualized. The subclavian vein is not visualized. The visualized portion of the brachiocephalic vein is patent on color Doppler evaluation without intr aluminal thrombus and demonstrates waveform variability. The axillary vein demonstrates nonocclusive thrombus. The brachial veins demonstrate nonocclusive thrombus. The basilic vein demonstrates appropriate compressibility and patency on Doppler evaluation. The cephalic vein demonstrates intraluminal thrombus and noncompressibility. LEFT SIDE: The internal jugular vein demonstrates appropriate compressibility and waveform variability. The subclavian vein is patent on color Doppler evaluation without intraluminal thrombus and demonstra reece waveform variability. The visualized portion of the brachiocephalic vein is patent on color Doppler evaluation without intr aluminal thrombus and demonstrates waveform variability. The axillary vein demonstrates appropriate compressibility and waveform variability. The brachial veins demonstrate appropriate compressibility and patency on Doppler evaluation. The basilic vein demonstrates appropriate compressibility and patency on Doppler evaluation. The cephalic vein demonstrates appropriate compressibility and patency on Doppler evaluation. Impression: No left upper extremity DVT. Right internal jugular vein and subclavian vein are not visualized secondary to patient positioning. Nonocclusive thrombus is seen in the right axillary vein and brachial vein. Occlusive thrombus is present at the right cephalic vein. Critical Result: DVT Findings discussed with DV RV by engineer chief at time of exam 06/01/2024 01:09 PM, and acknowledged r eceipt and understanding of the findings.
--- NOTE | 2024-06-01 14:33 | DVHPN2 ---
Subjective Intubated and sedated Reviewed: Care Plan, H&P, Labs, Medications, Previous Orders, Radiology Changes from previous H/P or p: Changes General: Per HPI Eyes: No Pain, No Vision change, No Conjunctivae inflammation, No Eyelid inflammation, No Other, No Redness ENT: No Ear pain, No Ear discharge, No Nose pain, No Nose discharge, No Nose congestion, No Mouth pain, No Mouth swelling, No Throat pain, No Throat swelling, No Other Cardiovascular: No Chest Pain, No Palpitations, No Orthopnea, No Paroxysmal Noc. Dyspnea, No Edema, No Lt Headedness, No Other Respiratory: No Cough, No Dry, No Shortness of breath, No SOB with excertion, No Wheezing, No Hemoptysis, No Pleuritic Pain, No Sputum, No Other Gastrointestinal: Nausea Genitourinary: No Dysuria, No Frequency, No Incontinence, No Hematuria, No Retention, No Other Musculoskeletal: No other, No neck pain, No shoulder pain, No arm pain, No back pain, No hand pain, No leg pain, No foot pain Skin: No Rash, No Lesions, No Jaundice, No Bruising, No Other Objective Vitals Vital Signs Date Time Temp Pulse Resp B/P (MAP) Pulse Ox O2 Delivery O2 Flow Rate FiO2 06/01/24 13:15 99.3 95 17 155/35 (75) 100 210.7 06/01/24 12:29 30 06/01/24 12:00 Mechanical Ventilator+ Intake/Output Intake and Output 06/01/24 07:00 Intake Total 2431.5 ml Output Total 3110 ml Balance -678.5 ml Intake Oral 0 ml IV Total 2431.5 ml Output Urine Total 2825 ml Stool Total 0 ml Gastric Drainage Total 0 ml Drainage Total 85 ml Other 200 ml General Appearance: moderate distress, Other (Intubated and sedated) HEENT: Atraumatic, PERRLA, Other (Pupils equal, 4 mm, reactive to light to 3 mm) Lungs: Clear to auscultation, Normal air movement, Other (Mechanical ventilation) Cardiovascular: Regular rate, Normal S1, Normal S2 Abdomen: Other (Ileostomy with drainage. EVARISTO to right lower quadrant with thick serosanguineous secretions.) Musculoskeletal: Other (Unable to assess) Extremities: No edema, Other (Poor cap refill to left lower extremity with some cyanosis noted) Neuro: Other (Left arm weakness including hash slinger and proximal muscles) Skin: Dry, Intact, Other (Surgical incision dry and intact) Psych/Mental Status: Mental status NL, Mood NL Medications Current Medications Medications Dose Ordered Sig/Nora Route Start Time Stop Time Status Last Admin Dose Admin Ondansetron HCl 4 mg Q4HP PRN IV 05/07/24 16:30 05/16/24 05:55 4 MG Fentanyl Citrate 250 ml @ 2.5 mls/hr Q24H IV 05/16/24 14:00 06/01/24 10:00 20 MLS/HR Midazolam HCl 50 ml @ 1 mls/hr Q24H IV 05/16/24 21:00 06/01/24 09:55 7 MLS/HR Phenylephrine HCl 250 ml @ 30 mls/hr Q8H20M IV 05/16/24 21:15 05/17/24 06:03 30 MLS/HR Acetaminophen 650 mg Q6HPRN PRN [place] 05/16/24 22:30 05/31/24 01:23 650 MG Pantoprazole Sodium 40 mg DAILY IV 05/17/24 10:00 06/01/24 09:55 40 MG Amino Acids 0 ml @ 0 mls/hr PER PHARMACY IV 05/17/24 08:30 Meropenem 50 ml @ 17 mls/hr Q8HR IV 05/18/24 14:00 06/01/24 13:38 17 MLS/HR Vancomycin HCl 0 ml @ 0 mls/hr UD IV 05/18/24 07:45 Metoprolol Tartrate 1.25 mg Q6HPRN PRN IV 05/18/24 16:00 05/18/24 16:17 1.25 MG Norepinephrine Bitartrate 32 mg/ Sodium Chloride 250 ml @ 0.938 mls/ hr Q24H IV 05/18/24 16:00 05/28/24 09:55 0.938 MLS/HR Amiodarone HCl 250 ml @ 16.667 mls/ hr Q15H IV 05/18/24 22:30 05/20/24 20:59 16.667 MLS/HR Potassium Chloride 100 ml @ 50 mls/hr Q2H IV 05/22/24 12:30 05/22/24 16:29 Cancel Micafungin Sodium 100 mg/Sodium Chloride 100 ml @ 100 mls/hr DAILY IV 05/23/24 10:00 06/01/24 09:55 100 MLS/HR Diagnostic Test (Pha) 1 strip Q6HR 05/24/24 12:00 06/01/24 11:30 1 STRIP Insulin Human Regular FOLLOW SLIDING SCALE Q6HR SC 05/24/24 12:00 06/01/24 11:29 2 UNITS Dextrose 50 ml UD IV 05/24/24 12:00 Dexmedetomidine HCl 400 mcg/ Dextrose 100 ml @ 3.17 mls/hr Q24H IV 05/28/24 20:45 Hydralazine HCl 10 mg Q6HP PRN IV 05/30/24 16:15 Fat Emulsion Intravenous 100 ml/Sodium Chloride 30 meq/ Sodium Phosphate 20 meq/Potassium Chloride 60 meq/ Magnesium Sulfate 16 meq/ Multivitamins 10 ml/Insulin Human Regular 14 units/ Amino Acids/ Dextrose/Purified Water 1,506.64 ml @ 62 mls/hr [id number] IV 05/31/24 20:00 06/01/24 19:59 05/31/24 21:16 62 MLS/HR Vancomycin HCl 200 ml @ 200 mls/hr DAILY@1500 IV 05/31/24 15:00 05/31/24 18:02 200 MLS/HR Fat Emulsion Intravenous 50 ml/ Sodium Acetate 20 meq/Sodium Phosphate 20 meq/ Potassium Chloride 40 meq/ Magnesium Sulfate 16 meq/ Multivitamins 10 ml/Chromium/ Copper/Manganese/ Zinc 1 ml/Insulin Human Regular 16 units/Amino Acids/ Dextrose/Purified Water 1,500.16 ml @ 62 mls/hr [id number] IV 06/01/24 20:00 06/02/24 19:59 Laboratory Results Laboratory Tests 06/01/24 03:24 Chemistry Test 06/01/24 03:24 Albumin 2.6 g/dL (3.2-4.8) L Calcium Level 9.1 mg/dL (8.7-10.4) Magnesium Level 2.2 mg/dL (1.6-2.6) Phosphorus Level 3.3 mg/dL (2.4-5.1) Total Protein 6.0 g/dL (5.7-8.2) Lipid panel Test 06/01/24 03:24 Triglycerides Level 208 mg/dL (< 150) H LFT Test 06/01/24 03:24 Alanine Aminotransferase (ALT) 24 U/L (7-40) Alkaline Phosphatase 149 U/L (46-116) H Aspartate Amino Transferase (AST) 29 U/L (13-40) Total Bilirubin 2.2 mg/dL (0.2-1.0) H Urinalysis Test 05/11/24 16:18 Urine Color Yellow (Yellow) Urine Clarity Clear (Clear) Urine pH 6.0 (5.0-9.0) Urine Specific [place] 1.020 (1.001-1.035) Urine Protein 1+ (Negative) H Urine Ketones 4+ (Negative) H Urine Blood Trace /uL (Negative) H Urine Nitrite Negative (Negative) Urine Bilirubin Negative (Negative) Urine Urobilinogen Normal mg/dL (Negative) Urine Leukocyte Esterase Negative /uL (Negative) Urine RBC 2 /hpf (0 - 4) Urine WBC 2 /hpf (0 - 5) Urine Squamous Epithelial Cells Few /hpf (<5) Urine Bacteria None seen /hpf (None Seen) Urine Mucus Few (None Seen) Urine Glucose Normal mg/dL (Normal) Blood Gas Results Test 06/01/24 06:16 Arterial Blood pH 7.449 (7.350-7.450) FiO2 % 30.0 Microbiology Microbiology Date/Time Source Procedure Growth Status 05/24/24 17:06 Other Gram Stain - Final Complete 05/24/24 17:06 Other Anaerobic Culture - Final Complete 05/24/24 17:06 Aerobic Culture - Final Yeast, not Shawanda albicans Complete 05/17/24 01:52 Urine - [place] Urine Culture - Final Yeast, not Shawanda albicans Complete 05/16/24 22:55 Blood Blood Culture - Final NO GROWTH AFTER 5 DAYS OF INCUBATION. Complete 05/16/24 14:20 Sputum Gram Stain - Final Complete 05/16/24 14:20 Respiratory Culture - Final Yeast, not Shawanda albicans Complete Assessment/Plan Assessment/Plan Robotic surgery hysterectomy and salpingo-oophorectomy complicated by Acute CVA Acute CVA w LUE hemiparesis Bowel perforation with repeat exploratory laparotomy with ileostomy creation History of breast cancer with bilateral mastectomies Afib RVR Acute hypoxic respiratory failure Mechanical intubation Exploratory laparotomy, drainage of intraabdominal abscess, thorough peritoneal lavage with reinforcement of the anastomotic location of the previous anastomosis as well as a diverting loop ileostomy on 05/24/24 Anemia Right upper extremity DVT Plan Mechanical ventilation TPN IV antibiotics: Vancomycin + Meropenem No vasopressors Sedation prn GI Prophylaxis: Protonix Transfuse blood prn 05/29/24: Transfuse 1 unit RBCs for Hb 5.9 Lasix 20 mg IV x1 Check Hb after transfusion Off pressors Antibiotics: Meropenem, Vanco, Micafungin Amiodarone IV Taper sedation down as tolerated CXR: Clear TPN Protonix 05/30/24: Discussed with Dr. Fritz Lake Will do CT ABD pelvis to follow up on abscess IV antibiotics Taper sedation down C-PAP? per Dr. Poon 05/31/24: CT abdomen showed no fluid collection IV antibiotics: Meropenem, Vancomycin & Micafungin Amiodarone Dr. Fritz Lake recommended to continue medical treatment, no surgical intervention Sedation as needed TPN 06/01/2024: Start Lovenox 70 mg subQ q.[address] Lake and Neurology IV antibiotics meropenem and vancomycin Micafungin TPN Tapered down sedation as tolerated Plan discussed with: Other My Orders Orders - BARI MOORE MD Procedure Category Date Status Time Bi Lat Upper Dvt US 06/01/24 Resulted Date of Service: Jun 01, 2024 Billing Provider: BARI MOORE MD Common Visit Codes: NOT BILLABLE BARI MOORE MD Jun 01, 2024 14:33
--- NOTE | 2024-06-01 14:59 | DVHPN2 ---
Progress Note Date Seen: Jun 01, 2024 Has the PT tested + for MRSA If YES, has PT been informed?: No Medical Necessity Reason Pt with a Central, PICC or Fol: Yes The following are medically ne: Muhammad Catheter Reason for muhammad catheter: Strict I&O Objective vital signs Vital Sign Date Time Temp Pulse Resp B/P (MAP) Pulse Ox O2 Delivery O2 Flow Rate FiO2 06/01/24 13:15 99.3 95 17 155/35 (75) 100 210.7 06/01/24 12:29 30 06/01/24 12:00 Mechanical Ventilator+ Total Intake and Output 05/31/24 05/31/24 06/01/24 15:00 23:00 07:00 Intake Total 796.5 ml 856.0 ml 779 ml Output Total 0 ml 1340 ml 1770 ml Balance 796.5 ml -484.0 ml -991 ml medications Current Medications Medications Dose Ordered Sig/Nora Route Start Time Stop Time Status Last Admin Dose Admin Ondansetron HCl 4 mg Q4HP PRN IV 05/07/24 16:30 05/16/24 05:55 4 MG Fentanyl Citrate 250 ml @ 2.5 mls/hr Q24H IV 05/16/24 14:00 06/01/24 10:00 20 MLS/HR Midazolam HCl 50 ml @ 1 mls/hr Q24H IV 05/16/24 21:00 06/01/24 09:55 7 MLS/HR Phenylephrine HCl 250 ml @ 30 mls/hr Q8H20M IV 05/16/24 21:15 05/17/24 06:03 30 MLS/HR Acetaminophen 650 mg Q6HPRN PRN [place] 05/16/24 22:30 05/31/24 01:23 650 MG Pantoprazole Sodium 40 mg DAILY IV 05/17/24 10:00 06/01/24 09:55 40 MG Amino Acids 0 ml @ 0 mls/hr PER PHARMACY IV 05/17/24 08:30 Meropenem 50 ml @ 17 mls/hr Q8HR IV 05/18/24 14:00 06/01/24 13:38 17 MLS/HR Vancomycin HCl 0 ml @ 0 mls/hr UD IV 05/18/24 07:45 Metoprolol Tartrate 1.25 mg Q6HPRN PRN IV 05/18/24 16:00 05/18/24 16:17 1.25 MG Norepinephrine Bitartrate 32 mg/ Sodium Chloride 250 ml @ 0.938 mls/ hr Q24H IV 05/18/24 16:00 05/28/24 09:55 0.938 MLS/HR Amiodarone HCl 250 ml @ 16.667 mls/ hr Q15H IV 05/18/24 22:30 05/20/24 20:59 16.667 MLS/HR Potassium Chloride 100 ml @ 50 mls/hr Q2H IV 05/22/24 12:30 05/22/24 16:29 Cancel Micafungin Sodium 100 mg/Sodium Chloride 100 ml @ 100 mls/hr DAILY IV 05/23/24 10:00 06/01/24 09:55 100 MLS/HR Diagnostic Test (Pha) 1 strip Q6HR 05/24/24 12:00 06/01/24 11:30 1 STRIP Insulin Human Regular FOLLOW SLIDING SCALE Q6HR SC 05/24/24 12:00 06/01/24 11:29 2 UNITS Dextrose 50 ml UD IV 05/24/24 12:00 Dexmedetomidine HCl 400 mcg/ Dextrose 100 ml @ 3.17 mls/hr Q24H IV 05/28/24 20:45 Hydralazine HCl 10 mg Q6HP PRN IV 05/30/24 16:15 Fat Emulsion Intravenous 100 ml/Sodium Chloride 30 meq/ Sodium Phosphate 20 meq/Potassium Chloride 60 meq/ Magnesium Sulfate 16 meq/ Multivitamins 10 ml/Insulin Human Regular 14 units/ Amino Acids/ Dextrose/Purified Water 1,506.64 ml @ 62 mls/hr [id number] IV 05/31/24 20:00 06/01/24 19:59 05/31/24 21:16 62 MLS/HR Vancomycin HCl 200 ml @ 200 mls/hr DAILY@1500 IV 05/31/24 15:00 05/31/24 18:02 200 MLS/HR Fat Emulsion Intravenous 50 ml/ Sodium Acetate 20 meq/Sodium Phosphate 20 meq/ Potassium Chloride 40 meq/ Magnesium Sulfate 16 meq/ Multivitamins 10 ml/Chromium/ Copper/Manganese/ Zinc 1 ml/Insulin Human Regular 16 units/Amino Acids/ Dextrose/Purified Water 1,500.16 ml @ 62 mls/hr [id number] IV 06/01/24 20:00 06/02/24 19:59 Enoxaparin Sodium 70 mg Q12HR SC 06/01/24 22:00 laboratory and microbiology Laboratory Tests 06/01/24 03:24 Test 06/01/24 03:24 Range/Units Serum Glucose 154 H 74-106 mg/dL Microbiology Date/Time Source Procedure Growth Status 05/24/24 17:06 Other Gram Stain - Final Complete 05/24/24 17:06 Other Anaerobic Culture - Final Complete 05/24/24 17:06 Aerobic Culture - Final Yeast, not Shawanda albicans Complete 05/17/24 01:52 Urine - [place] Urine Culture - Final Yeast, not Shawanda albicans Complete 05/16/24 22:55 Blood Blood Culture - Final NO GROWTH AFTER 5 DAYS OF INCUBATION. 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 BETTER TEMP 102 WBC WNL ABD SOFT DRAIN IN PLACE SEROSANGUINEOUS RIGHT 20CC LESS PURULENT, LEFT 10 CC SEROSANGUINEOUS DRESSING ABD WOUND DRAINAGE NOTED AND EXPECTED BUT LESS REPEAT CT SCAN NOTED NO MAJOR COLLECTION CONDITION GUARDED ILEOSTOMY VIABLE AND FUNCTIONAL FAMILY UPDATED NURSE AT BEDSIDE CONTINUE SUPPORTIVE CARE PULM EVAL ONGOING Plan discussed with: Other Dietary Evaluation Review Comments: 1) Advance pt diet when medically feasible to a 2gmNa diet modified per CORN SHELLER OPERATOR recommendations 2) Continue current plan of care Expected Outcomes/Goals: 1) Pt diet to advance 2) F/U in 2-3 days SHEY COVARRUBIAS MD Jun 01, 2024 14:59
[2024-06-01] MEDS: ENOXAPARIN SOD 80 MG/0.8ML SYRINGE SC ONE (15:24)
--- NOTE | 2024-06-01 15:26 | DVHPN2 ---
Progress Note - Dictate Date Seen: Jun 01, 2024 Has the PT tested + for MRSA If YES, has PT been informed?: No Medical Necessity Reason Pt with a Central, PICC or Fol: Yes The following are medically ne: Muhammad Catheter Reason for muhammad catheter: Strict I&O Subjective Ms. Barrera is a 68 years old right-handed female with a history of hypertension, anemia, breast cancer, she was admitted to the [facility] on 05/07/2024 for scheduled hysterectomy and oophorectomy. Post surgically, she woke up with left-sided weakness, and MRI showed multiple stroke in the right MCA territory. During the hospital stay, she developed fall perforation, and she went through abdominal surgery on 05/16/2024 Because of ongoing intraperitoneal sepsis/peritonitis, the patient went through exploratory laparotomy on 05/24/2024 I have seen and examined the patient in the ICU, I have discussed with her nurse and Dr. Reid. She is respond to painful stimuli, She keeps spiking temperature The right-sided drainage looks cloudy CBC, 05/16/2024: Metabolic acidosis, 05/17/2024: Metabolic acidosis, 05/18/2024: Metabolic acidosis URINALYSIS, 05/11/2024: WBC: 2, URINE LEUKOCYTE ESTERASE: NEGATIVE WBC/HB/PLT/MCV, 05/04: 5.1/10.7/119/98.3, 05/17/2024: 20.4/8.5/205/86.9 05/19/2024: 12.2/11.1/125/86.2, 05/20/2024: 8.1/10.5/113/86.1, 05/21/2024: 6.6/10.5/106/86.5, 05/26/2024: 9.6/9.2/184/93.8, 05/28/2024: 7.5/7/223/89.6, 05/29/24: 6.8/5.9/251/88.1, 05/30/2024: 7.4/7.7/268/86.6 PT/INR/FTT, 05/16/2024: 17.4/1.71/34.2 K, 05/09/2024: 3.9, 05/10/24:3.1, 05/12/2024: 3.4, 05/16/2024: 2.8 Lactic acid, 05/15/2024: 1.6, 05/16/2024: 1.5 HCO3, 05/23/2024: 35 Bun.Cr, 05/23/2024: 37/0.75 LIVER FUNCTION TESTS, 05/12/2024: UNREMARKABLE, 05/16/2024: Unremarkable TBI/AST/ALT/AP, 05/18/2024: 1.2/8/47, 05/19/2024: 3.1/04/23/2067, 05/23/2024: 3.1/48/35/170, 05/29/2024: 2.3///117 TG/HDL/LDL/HDL, 05/12/2024: 196/134/75/23 TSH, 05/12/2024: 2.01 Echocardiogram 05/14/2024: lvef 65% by visual estimate mild mitral regurg RV enlarged mild left atrium enlarged mild Extremity venous study, 06/01/2024: No left upper extremity DVT. Right internal jugular vein and subclavian vein are not visualized secondary to patient positioning. Nonocclusive thrombus is seen in the right axillary vein and brachial vein. Occlusive thrombus is present at the right cephalic vein. Carotid Doppler, 05/11/2024: 1. Occlusion of the right proximal ICA. 2. Greater than 50% stenosis of the right proximal ECA. 3. Greater than 50% stenosis of the left proximal ICA CT head, 05/11/2024: 1. Chronic lacunar infarct in right centrum semiovale. 2. Chronic periventricular ischemic changes. 3. Cerebral and cerebellar atrophy, likely age-related. 4. Advised further evaluation with MRI brain without contrast if clinically indicated CT abdomen/pelvis, 05/15/2024: Small bowel obstruction with evidence of perforation including free intraperitoneal fluid and air. Extensive subcutaneous emphysema likely secondary to bowel perforation CT abdomen/pelvis, 05/16/2024: 1. Sequelae of recent postsurgical changes as described above. Correlate with surgical history. 2. Pneumoperitoneum and free fluid in the abdomen and pelvis. 3. Large collection containing fluid and gas, predominantly in the right hemiabdomen. There is GI contrast extending into this collection from an adjacent small bowel loop. There is a component of this collection extending adjacent to the anterior superior aspect of the liver. 4. Moderate right hydronephrosis and hydroureter. The distal right ureter appears to be compressed by the large fluid collection in the right hemiabdomen. No obstructing calculus. 5. Dilated small bowel loops in the left hemiabdomen with suspected small-bowel obstruction. 6. Prominent subcutaneous edema in the ventral abdominal wall and extending caudally into the inguinal regions bilaterally, peroneal region, and anterior aspect of the left thigh. 7. Small bilateral pleural effusions with overlying atelectasis. 8. Additional findings as detailed above. CT abdomen, 05/23/2024: Postsurgical changes of the ventral abdomen with interval improvement in the diffuse soft tissue edema and ventral abdominal, pelvis and upper thigh subcutaneous emphysema. Interval significant decrease in size of the loculated collection within the right hemiabdomen and pelvis with small residual. Interval placement of drainage catheters terminating over the left upper abdominal quadrant and left hemipelvis as detailed above. Interval development of small to moderate ascites. Wall thickening of fluid-filled nondistended small bowel loops of the anterior mid to lower abdomen which may be from the surrounding ascites versus enteritis. Additional findings as above CT abdomen staff pelvis, 05/30/2024: 1. Radiodense contrast in the mid abdomen associated with surgical sutures. It is unclear whether this is in bowel or represents a bowel leak. Clinical correlation and continued follow-up is recommended. 2. Right pelvic, anterior abdominal wall and left abdomen drainage catheters in place. No definite abscess identified. 3. Extensive post postsurgical changes of the bowel. 4. Small amount of abdominal and pelvic ascities. 5. Small to moderate right pleural effusion. CTA neck, head, 05/14/24: 1. Complete occlusion of the right cervical internal carotid artery. There may be trickle flow in distal right cervical ICA. 2. Poor flow in the right intracranial ICA likely retrograde perfusion through the contralateral left side posterior circulation through the communicating arteries. 3. High-grade stenosis at the left carotid bulb with at least 70-80% stenosis. Moderate short-segment stenosis in the left proximal ICA with at least 60% stenosis. MRI HEAD, 05/11/2024: 1. Multiple foci of restricted diffusion in the right centrum semiovale and along the right superior frontal lobe compatible with acute to subacute infarcts. There is no evidence of acute hemorrhage or significant surrounding edema. 2. Absence of flow void in the intracranial portions of the right internal carotid artery which is likely occluded. vital signs Vital Sign Date Time Temp Pulse Resp B/P (MAP) Pulse Ox O2 Delivery O2 Flow Rate FiO2 06/01/24 13:15 99.3 95 17 155/35 (75) 100 210.7 06/01/24 12:29 30 06/01/24 12:00 Mechanical Ventilator+ Total Intake and Output 05/31/24 05/31/24 06/01/24 15:00 23:00 07:00 Intake Total 796.5 ml 856.0 ml 779 ml Output Total 0 ml 1340 ml 1770 ml Balance 796.5 ml -484.0 ml -991 ml medications Current Medications Medications Dose Ordered Sig/Nora Route Start Time Stop Time Status Last Admin Dose Admin Ondansetron HCl 4 mg Q4HP PRN IV 05/07/24 16:30 05/16/24 05:55 4 MG Fentanyl Citrate 250 ml @ 2.5 mls/hr Q24H IV 05/16/24 14:00 06/01/24 10:00 20 MLS/HR Midazolam HCl 50 ml @ 1 mls/hr Q24H IV 05/16/24 21:00 06/01/24 09:55 7 MLS/HR Phenylephrine HCl 250 ml @ 30 mls/hr Q8H20M IV 05/16/24 21:15 05/17/24 06:03 30 MLS/HR Acetaminophen 650 mg Q6HPRN PRN [place] 05/16/24 22:30 05/31/24 01:23 650 MG Pantoprazole Sodium 40 mg DAILY IV 05/17/24 10:00 06/01/24 09:55 40 MG Amino Acids 0 ml @ 0 mls/hr PER PHARMACY IV 05/17/24 08:30 Meropenem 50 ml @ 17 mls/hr Q8HR IV 05/18/24 14:00 06/01/24 13:38 17 MLS/HR Vancomycin HCl 0 ml @ 0 mls/hr UD IV 05/18/24 07:45 Metoprolol Tartrate 1.25 mg Q6HPRN PRN IV 05/18/24 16:00 05/18/24 16:17 1.25 MG Norepinephrine Bitartrate 32 mg/ Sodium Chloride 250 ml @ 0.938 mls/ hr Q24H IV 05/18/24 16:00 05/28/24 09:55 0.938 MLS/HR Amiodarone HCl 250 ml @ 16.667 mls/ hr Q15H IV 05/18/24 22:30 05/20/24 20:59 16.667 MLS/HR Potassium Chloride 100 ml @ 50 mls/hr Q2H IV 05/22/24 12:30 05/22/24 16:29 Cancel Micafungin Sodium 100 mg/Sodium Chloride 100 ml @ 100 mls/hr DAILY IV 05/23/24 10:00 06/01/24 09:55 100 MLS/HR Diagnostic Test (Pha) 1 strip Q6HR 05/24/24 12:00 06/01/24 11:30 1 STRIP Insulin Human Regular FOLLOW SLIDING SCALE Q6HR SC 05/24/24 12:00 06/01/24 11:29 2 UNITS Dextrose 50 ml UD IV 05/24/24 12:00 Dexmedetomidine HCl 400 mcg/ Dextrose 100 ml @ 3.17 mls/hr Q24H IV 05/28/24 20:45 Hydralazine HCl 10 mg Q6HP PRN IV 05/30/24 16:15 Fat Emulsion Intravenous 100 ml/Sodium Chloride 30 meq/ Sodium Phosphate 20 meq/Potassium Chloride 60 meq/ Magnesium Sulfate 16 meq/ Multivitamins 10 ml/Insulin Human Regular 14 units/ Amino Acids/ Dextrose/Purified Water 1,506.64 ml @ 62 mls/hr [id number] IV 05/31/24 20:00 06/01/24 19:59 05/31/24 21:16 62 MLS/HR Vancomycin HCl 200 ml @ 200 mls/hr DAILY@1500 IV 05/31/24 15:00 05/31/24 18:02 200 MLS/HR Fat Emulsion Intravenous 50 ml/ Sodium Acetate 20 meq/Sodium Phosphate 20 meq/ Potassium Chloride 40 meq/ Magnesium Sulfate 16 meq/ Multivitamins 10 ml/Chromium/ Copper/Manganese/ Zinc 1 ml/Insulin Human Regular 16 units/Amino Acids/ Dextrose/Purified Water 1,500.16 ml @ 62 mls/hr [id number] IV 06/01/24 20:00 06/02/24 19:59 Enoxaparin Sodium 70 mg Q12HR SC 06/01/24 22:00 objective General: the patient is well developed and nourished. No acute distress. ABDOMEN: Status post surgery MENTAL STATUS: Subjective. CRANIAL NERVES: Pupils are round and reactivel. There are corneal reflexes and doll's eyes phenomenon. No signs of facial weakness. There are weak gagging or coughing reflexes SENSATION: No responses to pain stimuli. MOTOR: Normal tone in the upper and lower extremity. Normal muscle bulk. No fasciculations. No spontaneous movement. REFLEXES: Deep tendon reflexes are symmetrical. No pathological reflexes. CEREBELLAR/COORDINATION: Deferred GAIT/STATION: deferred. laboratory and microbiology Laboratory Tests 06/01/24 03:24 Test 06/01/24 03:24 Range/Units Serum Glucose 154 H 74-106 mg/dL Problem List Pelvic prolapse, can count urethrovesical junction, surgery repair on 05/07/2024 (Robotic supracervical hysterectomy bilateral salpingo-oophorectomy colposcopic pexy cystocele repair urethral sling partial vaginectomy) Bowel obstruction with perforation, intra-abdominal abscess, dense at [place], status post surgery 05/16/2024 Sepsis/septic shock Metabolic encephalopathy Acute right MCA territory multiple strokes Left hemiparesis Right ICA occlusion Left ICA severe stenosis Anemia, with unstable H&H Status post oophorectomy, hysterectomy Anisocoria, uncertain clinical significance DVT Assessment/Plan Monitoring Supportive treatment ICU care Stabilize vitals/pressor drip Respiratory support/vent management IV antibiotics Oxygen Lipitor 20 mg daily (NPO) TPN Up to chair Physical therapy Further address bilateral carotid stenosis CLARA on discharge Surgery on case Okay to use Lovenox for DVT from neurologic point of view More recommendation per clinical course This medical document was created using an electronic medical record system with [employer] dictation system. Although this document has been carefully reviewed, there may still be some phonetic and typographical errors. These areas are purely typographical due to imperfections of the software programs, and do not reflect any compromise in the patient's medical care Prognosis guarded Dietary Evaluation Review Comments: 1) Advance pt diet when medically feasible to a 2gmNa diet modified per IMPLEMENTATION SPECIALIST recommendations 2) Continue current plan of care Expected Outcomes/Goals: 1) Pt diet to advance 2) F/U in 2-3 days Plan discussed with: Other Critical Care Time(min): 40 FLORES,QUANWEI MD Jun 01, 2024 15:26
--- NOTE | 2024-06-01 18:00 | DVHPN2 ---
Progress Note - Dictate Date Seen: Jun 01, 2024 Has the PT tested + for MRSA If YES, has PT been informed?: No Medical Necessity Reason Pt with a Central, PICC or Fol: Yes The following are medically ne: Muhammad Catheter Reason for muhammad catheter: Strict I&O Subjective Patient seen and examined at bedside. Sedated, intubated on mechanical ventilator. Overnight events reviewed. vital signs Vital Sign Date Time Temp Pulse Resp B/P (MAP) Pulse Ox O2 Delivery O2 Flow Rate FiO2 06/01/24 16:45 80 22 148/31 (70) 100 06/01/24 16:36 30 06/01/24 16:30 98.4 209.1 06/01/24 16:00 Mechanical Ventilator+ Total Intake and Output 05/31/24 05/31/24 06/01/24 15:00 23:00 07:00 Intake Total 796.5 ml 856.0 ml 779 ml Output Total 0 ml 1340 ml 1770 ml Balance 796.5 ml -484.0 ml -991 ml medications Current Medications Medications Dose Ordered Sig/Nora Route Start Time Stop Time Status Last Admin Dose Admin Ondansetron HCl 4 mg Q4HP PRN IV 05/07/24 16:30 05/16/24 05:55 4 MG Fentanyl Citrate 250 ml @ 2.5 mls/hr Q24H IV 05/16/24 14:00 06/01/24 10:00 20 MLS/HR Midazolam HCl 50 ml @ 1 mls/hr Q24H IV 05/16/24 21:00 06/01/24 16:32 7 MLS/HR Phenylephrine HCl 250 ml @ 30 mls/hr Q8H20M IV 05/16/24 21:15 05/17/24 06:03 30 MLS/HR Acetaminophen 650 mg Q6HPRN PRN ME 05/16/24 22:30 05/31/24 01:23 650 MG Pantoprazole Sodium 40 mg DAILY IV 05/17/24 10:00 06/01/24 09:55 40 MG Amino Acids 0 ml @ 0 mls/hr PER PHARMACY IV 05/17/24 08:30 Meropenem 50 ml @ 17 mls/hr Q8HR IV 05/18/24 14:00 06/01/24 13:38 17 MLS/HR Vancomycin HCl 0 ml @ 0 mls/hr UD IV 05/18/24 07:45 Metoprolol Tartrate 1.25 mg Q6HPRN PRN IV 05/18/24 16:00 05/18/24 16:17 1.25 MG Norepinephrine Bitartrate 32 mg/ Sodium Chloride 250 ml @ 0.938 mls/ hr Q24H IV 05/18/24 16:00 05/28/24 09:55 0.938 MLS/HR Amiodarone HCl 250 ml @ 16.667 mls/ hr Q15H IV 05/18/24 22:30 05/20/24 20:59 16.667 MLS/HR Potassium Chloride 100 ml @ 50 mls/hr Q2H IV 05/22/24 12:30 05/22/24 16:29 Cancel Micafungin Sodium 100 mg/Sodium Chloride 100 ml @ 100 mls/hr DAILY IV 05/23/24 10:00 06/01/24 09:55 100 MLS/HR Diagnostic Test (Pha) 1 strip Q6HR 05/24/24 12:00 06/01/24 17:32 1 STRIP Insulin Human Regular FOLLOW SLIDING SCALE Q6HR SC 05/24/24 12:00 06/01/24 11:29 2 UNITS Dextrose 50 ml UD IV 05/24/24 12:00 Dexmedetomidine HCl 400 mcg/ Dextrose 100 ml @ 3.17 mls/hr Q24H IV 05/28/24 20:45 Hydralazine HCl 10 mg Q6HP PRN IV 05/30/24 16:15 Fat Emulsion Intravenous 100 ml/Sodium Chloride 30 meq/ Sodium Phosphate 20 meq/Potassium Chloride 60 meq/ Magnesium Sulfate 16 meq/ Multivitamins 10 ml/Insulin Human Regular 14 units/ Amino Acids/ Dextrose/Purified Water 1,506.64 ml @ 62 mls/hr [id number] IV 05/31/24 20:00 06/01/24 19:59 05/31/24 21:16 62 MLS/HR Vancomycin HCl 200 ml @ 200 mls/hr DAILY@1500 IV 05/31/24 15:00 06/01/24 15:24 200 MLS/HR Fat Emulsion Intravenous 50 ml/ Sodium Acetate 20 meq/Sodium Phosphate 20 meq/ Potassium Chloride 40 meq/ Magnesium Sulfate 16 meq/ Multivitamins 10 ml/Chromium/ Copper/Manganese/ Zinc 1 ml/Insulin Human Regular 16 units/Amino Acids/ Dextrose/Purified Water 1,500.16 ml @ 62 mls/hr [id number] IV 06/01/24 20:00 06/02/24 19:59 Enoxaparin Sodium 70 mg Q12HR SC 06/01/24 22:00 objective Gen.: Patient lying in bed in medical ICU. Sedated, intubated on mechanical ventilator. Head: Normocephalic, atraumatic. Eyes: PERRLA. Ears: Normal external anatomy. Throat: Endotracheal tube and orogastric tube in place. Neck: Supple, trachea midline. Chest: Transmitted breath sounds bilaterally. Decreased air entry bilaterally. No wheezing. Bibasilar crackles. Cardio vascular: Positive S1, positive S2. Regular rate and rhythm. Abdomen: Positive bowel sounds in all 4 quadrants. Soft, nontender, nondistended. : Muhammad in place. Normal external genitalia. Rectal: Deferred Skin: Warm, dry. Intact. Extremities: 2+ radial pulses bilaterally. No lower extremity edema. Neuro: Sedated. laboratory and microbiology Laboratory Tests 06/01/24 03:24 Test 06/01/24 03:24 Range/Units Serum Glucose 154 H 74-106 mg/dL Assessment/Plan Impression: Acute hypoxic respiratory failure On mechanical ventilator Abdominal pain due to recent robotic surgery hysterectomy and salpingo- oophorectomy History of breast cancer with bilateral mastectomies History of bowel surgery and ileostomy Anemia due to hemorrhage on hemodilution Shock Chronic pain syndrome Anemia Atrial fibrillation with RVR Bowel perforation with repeat exploratory laparotomy with ileostomy creation Events: Remains on vent support On assist control with a respiratory rate of 18, tidal volume 450, PEEP of 5, FiO2 of 30%. Plan for CPAP trial TPN for nutritional support. Monitor EVARISTO drain Continue antibiotics Surgery recommendations appreciated. Patient remains on sedation with fentanyl and Versed drips. Patient has not tolerated taper of sedation, becomes tachypneic and tachycardic CPAP with PS 8, PEEP of 5 I had to increase PS to [id number] this AM during CPAP as with PS8/5, pt was tachypneic in the low 30s. With increase to 20 cmH2O, RR improved to 18 bpm. Will continue to taper down PS as tolerated and exercise patient to improve condition of accessory muscles and diaphragm. Potassium supplementation Monitor renal function Monitor hemoglobin closely. Transfuse if less than 7.0 grams/deciliter. Poor prognosis Consider Trach/PEG as means of liberation from mechanical ventilator. ABG reviewed - alkalemia due to respiratory alkalosis. Chest x-ray imaging report reviewed, stable. Devices in place. Mild pulmonary vascular congestion. No pleural effusion or pneumothorax. Rest of plan as outlined below. Plan: s/p intubation on mechanical ventilator CXR image and report reviewed. Devices in place. Pulmonary vascular congestion. Right bibasilar airspace opacities. No pleural effusion or pneumothorax. ABG reviewed. Compensated On assist control with a respiratory rate of 18, tidal volume 450, PEEP of 5, FiO2 of 30%. Titrate FIO2 to keep O2 saturation above 92%. VAP bundle Daily ABG and CXR while intubated. Sedate for ventilatory synchrony Pressors as necessary for hemodynamic support. Titrate to keep MAP above 65 mmHg/SBP above 90 mmHg. Continue antibiotics. F/u cultures. Monitor hemoglobin Transfuse if less than 7.0 grams/deciliter On IV fluids with lactated Ringer's at 75 mL an hour. Monitor renal function due to Acute kidney injury. Monitor electrolytes. Supplement as necessary. Surgery recommendations appreciated. Nutritional support. On TPN Accucheks, ISS. GI/DVT prophylaxis. Condition: Critical Prognosis: Poor given multiple comorbidities. Rest of plan per hospitalist and other consultants. A total of 35 minutes of critical care time was spent reviewing the patient record, examining the patient, making a diagnostic and therapeutic plan, discussing this plan with the medical personnel, following up on diagnostic studies and following the patient for clinical stability excluding any and all procedures. At least 50% of this time was spent in direct, [id number] contact. Thank you Dr Reid for allowing me to participate in this patient's care. Further recommendations will depend on patient's clinical course. Please do not hesitate to contact me if you have any questions or concerns. This medical document was created using an electronic medical record system with [employer] system. Although this document has been carefully reviewed, there may still be some phonetic and typographical errors. These areas are purely typographical due to imperfections of the software programs, and do not reflect any compromise in the patient's medical care. Dietary Evaluation Review Comments: 1) Advance pt diet when medically feasible to a 2gmNa diet modified per [employer] recommendations 2) Continue current plan of care Expected Outcomes/Goals: 1) Pt diet to advance 2) F/U in 2-3 days Plan discussed with: Other (RN Jeannine, RT Nunu Bradford MD) Critical Care Time(min): 35 RG LEONE MD Jun 01, 2024 18:00
[2024-06-01] MEDS: TPN PER PHARMACY IV NR (20:48)
[2024-06-01] MEDS: ENOXAPARIN SOD 80 MG/0.8ML SYRINGE SC SCH (21:24)
[2024-06-02] VITALS (106 sets, daily range): BP systolic 82–187; BP diastolic 24–144; PULSE 70–115; RESP 11–29; TEMP 94.8–100.4; O2SAT 97–100
[2024-06-02 04:22] LABS: Hemoglobin 7.9 g/dL (12.2-16.2)
[2024-06-02 04:24] LABS: Hematocrit 23.5 % (36.0-46.0); Mean Corpuscular Hemoglobin 29.5 pg (28.0-32.0); Mean Corpuscular Hgb Conc. 33.6 g/dL (32.0-36.0); Mean Corpuscular Volume 87.8 fL (80.0-100.0); Platelet Count (auto) 312 10^3/uL (140-450); Red Blood Cells 2.68 10^6/uL (4.0-5.20); Red Cell Distribution Width 14.6 % (11.8-14.3); White Blood Cell 7.9 10^3/uL (4.4-10.8)
[2024-06-02 04:31] LABS: Band Neutrophils % (manual) 0; Basophils % (manual) 0 (0.0-2.0); Blast Cells 0; Metamyelocytes % 0; Myelocytes % 0; Promyelocytes % 0; Reactive Lymphocytes 0
[2024-06-02 05:11] LABS: Alanine Aminotransferase 23 U/L (7-40); Albumin 2.7 g/dL (3.2-4.8); Alkaline Phosphatase 154 U/L (46-116); Anion Gap 4 (5-15); Aspartate Aminotransferase 28 U/L (13-40); BUN/Creatinine Ratio 52.1 (10.0-20.0); Bilirubin, Total 1.9 mg/dL (0.2-1.0); Blood Urea Nitrogen 25 mg/dL (9-23); Calcium 9.2 mg/dL (8.7-10.4); Carbon Dioxide 26 mmol/L (20-31); Chloride 106 mmol/L (98-107); Glucose 115 mg/dL (74-106); Phosphorus 3.1 mg/dL (2.4-5.1); Potassium 4.1 mmol/L (3.5-5.1); Sodium 136 mmol/L (136-145); Total Protein 5.9 g/dL (5.7-8.2)
[2024-06-02] MEDS: hydrALAZINE HCL 20 MG/ML VL IV PRN (05:36)
[2024-06-02 06:00] LABS: Eosinophils % (manual) 2 (0-7); Lymphocytes % (manual) 9 (10.0-50.0); Monocytes % (manual) 11 (0-12); Platelet Estimate Adequate
[2024-06-02] MEDS: LABETALOL HCL 20 MG/4 ML VL IV PRN (08:44)
[2024-06-02 09:15] LABS: Base Excess 1.5 mmol/L (-2.0-3.0)
--- NOTE | 2024-06-02 10:17 | DVHPN2 ---
Subjective Intubated and sedated Fever+ Temp: 100.2 Reviewed: Care Plan, H&P, Labs, Medications, Previous Orders, Radiology Changes from previous H/P or p: Changes General: Per HPI Eyes: No Pain, No Vision change, No Conjunctivae inflammation, No Eyelid inflammation, No Other, No Redness ENT: No Ear pain, No Ear discharge, No Nose pain, No Nose discharge, No Nose congestion, No Mouth pain, No Mouth swelling, No Throat pain, No Throat swelling, No Other Cardiovascular: No Chest Pain, No Palpitations, No Orthopnea, No Paroxysmal Noc. Dyspnea, No Edema, No Lt Headedness, No Other Respiratory: No Cough, No Dry, No Shortness of breath, No SOB with excertion, No Wheezing, No Hemoptysis, No Pleuritic Pain, No Sputum, No Other Gastrointestinal: Nausea Genitourinary: No Dysuria, No Frequency, No Incontinence, No Hematuria, No Retention, No Other Musculoskeletal: No other, No neck pain, No shoulder pain, No arm pain, No back pain, No hand pain, No leg pain, No foot pain Skin: No Rash, No Lesions, No Jaundice, No Bruising, No Other Objective Vitals Vital Signs Date Time Temp Pulse Resp B/P (MAP) Pulse Ox O2 Delivery O2 Flow Rate FiO2 06/02/24 09:39 148/30 06/02/24 09:38 78 22 100 30 06/02/24 07:15 100.2 212.4 06/02/24 05:43 Mechanical Ventilator+ Intake/Output Intake and Output 06/02/24 07:00 Intake Total 2397 ml Output Total 2490 ml Balance -93 ml Intake Oral 0 ml IV Total 2397 ml Output Urine Total 2200 ml Drainage Total 70 ml Other 220 ml General Appearance: moderate distress, Other (Intubated and sedated) HEENT: Atraumatic, PERRLA, Other (Pupils equal, 4 mm, reactive to light to 3 mm) Lungs: Clear to auscultation, Normal air movement, Other (Mechanical ventilation) Cardiovascular: Regular rate, Normal S1, Normal S2 Abdomen: Other (Ileostomy with drainage. 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) Skin: Dry, Intact, Other (Surgical incision dry and intact) Psych/Mental Status: Mental status NL, Mood NL Medications Current Medications Medications Dose Ordered Sig/Nora Route Start Time Stop Time Status Last Admin Dose Admin Ondansetron HCl 4 mg Q4HP PRN IV 05/07/24 16:30 05/16/24 05:55 4 MG Fentanyl Citrate 250 ml @ 2.5 mls/hr Q24H IV 05/16/24 14:00 06/02/24 09:39 20 MLS/HR Midazolam HCl 50 ml @ 1 mls/hr Q24H IV 05/16/24 21:00 06/02/24 06:53 7 MLS/HR Phenylephrine HCl 250 ml @ 30 mls/hr Q8H20M IV 05/16/24 21:15 05/17/24 06:03 30 MLS/HR Acetaminophen 650 mg Q6HPRN PRN [place] 05/16/24 22:30 05/31/24 01:23 650 MG Pantoprazole Sodium 40 mg DAILY IV 05/17/24 10:00 06/02/24 09:42 40 MG Amino Acids 0 ml @ 0 mls/hr PER PHARMACY IV 05/17/24 08:30 Meropenem 50 ml @ 17 mls/hr Q8HR IV 05/18/24 14:00 06/02/24 05:03 17 MLS/HR Vancomycin HCl 0 ml @ 0 mls/hr UD IV 05/18/24 07:45 Metoprolol Tartrate 1.25 mg Q6HPRN PRN IV 05/18/24 16:00 05/18/24 16:17 1.25 MG Norepinephrine Bitartrate 32 mg/ Sodium Chloride 250 ml @ 0.938 mls/ hr Q24H IV 05/18/24 16:00 05/28/24 09:55 0.938 MLS/HR Amiodarone HCl 250 ml @ 16.667 mls/ hr Q15H IV 05/18/24 22:30 05/20/24 20:59 16.667 MLS/HR Potassium Chloride 100 ml @ 50 mls/hr Q2H IV 05/22/24 12:30 05/22/24 16:29 Cancel Micafungin Sodium 100 mg/Sodium Chloride 100 ml @ 100 mls/hr DAILY IV 05/23/24 10:00 06/02/24 09:38 100 MLS/HR Diagnostic Test (Pha) 1 strip Q6HR 05/24/24 12:00 06/02/24 05:03 1 STRIP Insulin Human Regular FOLLOW SLIDING SCALE Q6HR SC 05/24/24 12:00 06/02/24 00:03 2 UNITS Dextrose 50 ml UD IV 05/24/24 12:00 Dexmedetomidine HCl 400 mcg/ Dextrose 100 ml @ 3.17 mls/hr Q24H IV 05/28/24 20:45 Hydralazine HCl 10 mg Q6HP PRN IV 05/30/24 16:15 06/02/24 05:36 10 MG Vancomycin HCl 200 ml @ 200 mls/hr DAILY@1500 IV 05/31/24 15:00 06/01/24 15:24 200 MLS/HR Fat Emulsion Intravenous 50 ml/ Sodium Acetate 20 meq/Sodium Phosphate 20 meq/ Potassium Chloride 40 meq/ Magnesium Sulfate 16 meq/ Multivitamins 10 ml/Chromium/ Copper/Manganese/ Zinc 1 ml/Insulin Human Regular 16 units/Amino Acids/ Dextrose/Purified Water 1,500.16 ml @ 62 mls/hr [id number] IV 06/01/24 20:00 06/02/24 19:59 06/01/24 20:48 62 MLS/HR Enoxaparin Sodium 70 mg Q12HR SC 06/01/24 22:00 06/02/24 09:42 70 MG Labetalol HCl 10 mg Q2HPRN PRN IV 06/02/24 07:45 06/02/24 08:44 10 MG Fat Emulsion Intravenous 100 ml/Potassium Chloride 20 meq/ Potassium Phosphate 22 meq/ Magnesium Sulfate 20 meq/ Multivitamins 10 ml/Chromium/ Copper/Manganese/ Zinc 1 ml/Insulin Human Regular 16 units/Amino Acids/ Dextrose/Purified Water 1,581.16 ml @ 66 mls/hr [id number] IV 06/02/24 20:00 06/03/24 19:59 Laboratory Results Laboratory Tests 06/02/24 03:25 Chemistry Test 06/02/24 03:25 Albumin 2.7 g/dL (3.2-4.8) L Calcium Level 9.2 mg/dL (8.7-10.4) Magnesium Level 2.0 mg/dL (1.6-2.6) Phosphorus Level 3.1 mg/dL (2.4-5.1) Total Protein 5.9 g/dL (5.7-8.2) LFT Test 06/02/24 03:25 Alanine Aminotransferase (ALT) 23 U/L (7-40) Alkaline Phosphatase 154 U/L (46-116) H Aspartate Amino Transferase (AST) 28 U/L (13-40) Total Bilirubin 1.9 mg/dL (0.2-1.0) H Urinalysis Test 05/11/24 16:18 Urine Color Yellow (Yellow) Urine Clarity Clear (Clear) Urine pH 6.0 (5.0-9.0) Urine Specific [place] 1.020 (1.001-1.035) Urine Protein 1+ (Negative) H Urine Ketones 4+ (Negative) H Urine Blood Trace /uL (Negative) H Urine Nitrite Negative (Negative) Urine Bilirubin Negative (Negative) Urine Urobilinogen Normal mg/dL (Negative) Urine Leukocyte Esterase Negative /uL (Negative) Urine RBC 2 /hpf (0 - 4) Urine WBC 2 /hpf (0 - 5) Urine Squamous Epithelial Cells Few /hpf (<5) Urine Bacteria None seen /hpf (None Seen) Urine Mucus Few (None Seen) Urine Glucose Normal mg/dL (Normal) Blood Gas Results Test 06/02/24 09:04 Arterial Blood pH 7.497 (7.350-7.450) FiO2 % 30.0 Microbiology Microbiology Date/Time Source Procedure Growth Status 05/24/24 17:06 Other Gram Stain - Final Complete 05/24/24 17:06 Other Anaerobic Culture - Final Complete 05/24/24 17:06 Aerobic Culture - Final Yeast, not Shawanda albicans Complete 05/17/24 01:52 Urine - [place] Urine Culture - Final Yeast, not Shawanda albicans Complete 05/16/24 22:55 Blood Blood Culture - Final NO GROWTH AFTER 5 DAYS OF INCUBATION. Complete 05/16/24 14:20 Sputum Gram Stain - Final Complete 05/16/24 14:20 Respiratory Culture - Final Yeast, not Shawanda albicans Complete Assessment/Plan Assessment/Plan Robotic surgery hysterectomy and salpingo-oophorectomy complicated by Acute CVA Acute CVA w LUE hemiparesis Bowel perforation with repeat exploratory laparotomy with ileostomy creation History of breast cancer with bilateral mastectomies Afib RVR Acute hypoxic respiratory failure Mechanical intubation Exploratory laparotomy, drainage of intraabdominal abscess, thorough peritoneal lavage with reinforcement of the anastomotic location of the previous anastomosis as well as a diverting loop ileostomy on 05/24/24 Anemia Right upper extremity DVT Plan Mechanical ventilation TPN IV antibiotics: Vancomycin + Meropenem No vasopressors Sedation prn GI Prophylaxis: Protonix Transfuse blood prn 05/29/24: Transfuse 1 unit RBCs for Hb 5.9 Lasix 20 mg IV x1 Check Hb after transfusion Off pressors Antibiotics: Meropenem, Vanco, Micafungin Amiodarone IV Taper sedation down as tolerated CXR: Clear TPN Protonix 05/30/24: Discussed with Dr. Fritz Lake Will do CT ABD pelvis to follow up on abscess IV antibiotics Taper sedation down C-PAP? per Dr. Poon 05/31/24: CT abdomen showed no fluid collection IV antibiotics: Meropenem, Vancomycin & Micafungin Amiodarone Dr. Fritz Lake recommended to continue medical treatment, no surgical intervention Sedation as needed TPN 06/01/2024: Start Lovenox 70 mg subQ q.[address] Lake and Neurology IV antibiotics meropenem and vancomycin Micafungin TPN Tapered down sedation as tolerated 06/02/24: Fever Yeast in cultures: Micafungin IV antibiotics: Meropenem & Vanco TPN RUE DVT: Lovenox Normocytic anemia 7.9 Consult ID [place] Cultures Afib: Amiodarone drip Discussed with her sister over the phone Plan discussed with: Other My Orders Orders - BARI MOORE MD Procedure Category Date Status Time Bi Lat Upper Dvt US 06/01/24 Resulted Enoxaparin Sodium PHA 06/01/24 In Process (Lovenox) 22:00 Cpap Trial For Am ORDERS 06/02/24 Transmitted 10:01 Date of Service: Jun 02, 2024 Billing Provider: BARI MOORE MD Common Visit Codes: NOT BILLABLE BARI MOORE MD Jun 02, 2024 10:17
--- NOTE | 2024-06-02 13:08 | DVHPN2 ---
Progress Note Date Seen: Jun 02, 2024 Has the PT tested + for MRSA If YES, has PT been informed?: No Medical Necessity Reason Pt with a Central, PICC or Fol: Yes The following are medically ne: Muhammad Catheter Reason for muhammad catheter: Strict I&O Objective vital signs Vital Sign Date Time Temp Pulse Resp B/P (MAP) Pulse Ox O2 Delivery O2 Flow Rate FiO2 06/02/24 12:15 75 17 129/37 (67) 100 30 06/02/24 12:00 Mechanical Ventilator+ 06/02/24 10:30 99.9 211.8 Total Intake and Output 06/01/24 06/01/24 06/02/24 15:00 23:00 07:00 Intake Total 877 ml 847 ml 779 ml Output Total 1090 ml 1400 ml Balance 877 ml -243 ml -621 ml medications Current Medications Medications Dose Ordered Sig/Nora Route Start Time Stop Time Status Last Admin Dose Admin Ondansetron HCl 4 mg Q4HP PRN IV 05/07/24 16:30 05/16/24 05:55 4 MG Fentanyl Citrate 250 ml @ 2.5 mls/hr Q24H IV 05/16/24 14:00 06/02/24 09:39 20 MLS/HR Midazolam HCl 50 ml @ 1 mls/hr Q24H IV 05/16/24 21:00 06/02/24 06:53 7 MLS/HR Phenylephrine HCl 250 ml @ 30 mls/hr Q8H20M IV 05/16/24 21:15 05/17/24 06:03 30 MLS/HR Acetaminophen 650 mg Q6HPRN PRN [place] 05/16/24 22:30 05/31/24 01:23 650 MG Pantoprazole Sodium 40 mg DAILY IV 05/17/24 10:00 06/02/24 09:42 40 MG Amino Acids 0 ml @ 0 mls/hr PER PHARMACY IV 05/17/24 08:30 Meropenem 50 ml @ 17 mls/hr Q8HR IV 05/18/24 14:00 06/02/24 05:03 17 MLS/HR Vancomycin HCl 0 ml @ 0 mls/hr UD IV 05/18/24 07:45 Metoprolol Tartrate 1.25 mg Q6HPRN PRN IV 05/18/24 16:00 05/18/24 16:17 1.25 MG Norepinephrine Bitartrate 32 mg/ Sodium Chloride 250 ml @ 0.938 mls/ hr Q24H IV 05/18/24 16:00 05/28/24 09:55 0.938 MLS/HR Amiodarone HCl 250 ml @ 16.667 mls/ hr Q15H IV 05/18/24 22:30 05/20/24 20:59 16.667 MLS/HR Potassium Chloride 100 ml @ 50 mls/hr Q2H IV 05/22/24 12:30 05/22/24 16:29 Cancel Micafungin Sodium 100 mg/Sodium Chloride 100 ml @ 100 mls/hr DAILY IV 05/23/24 10:00 06/02/24 09:38 100 MLS/HR Diagnostic Test (Pha) 1 strip Q6HR 05/24/24 12:00 06/02/24 12:13 1 STRIP Insulin Human Regular FOLLOW SLIDING SCALE Q6HR SC 05/24/24 12:00 06/02/24 12:13 2 UNITS Dextrose 50 ml UD IV 05/24/24 12:00 Dexmedetomidine HCl 400 mcg/ Dextrose 100 ml @ 3.17 mls/hr Q24H IV 05/28/24 20:45 Hydralazine HCl 10 mg Q6HP PRN IV 05/30/24 16:15 06/02/24 05:36 10 MG Vancomycin HCl 200 ml @ 200 mls/hr DAILY@1500 IV 05/31/24 15:00 06/01/24 15:24 200 MLS/HR Fat Emulsion Intravenous 50 ml/ Sodium Acetate 20 meq/Sodium Phosphate 20 meq/ Potassium Chloride 40 meq/ Magnesium Sulfate 16 meq/ Multivitamins 10 ml/Chromium/ Copper/Manganese/ Zinc 1 ml/Insulin Human Regular 16 units/Amino Acids/ Dextrose/Purified Water 1,500.16 ml @ 62 mls/hr [id number] IV 06/01/24 20:00 06/02/24 19:59 06/01/24 20:48 62 MLS/HR Enoxaparin Sodium 70 mg Q12HR SC 06/01/24 22:00 06/02/24 09:42 70 MG Labetalol HCl 10 mg Q2HPRN PRN IV 06/02/24 07:45 06/02/24 08:44 10 MG Fat Emulsion Intravenous 100 ml/Potassium Chloride 20 meq/ Magnesium Sulfate 20 meq/ Multivitamins 10 ml/Chromium/ Copper/Manganese/ Zinc 1 ml/Insulin Human Regular 16 units/Sodium Acetate 10 meq/ Sodium Phosphate 30 meq/Potassium Acetate 20 meq/ Amino Acids/ Dextrose/Purified Water 1,598.66 ml @ 66 mls/hr [id number] IV 06/02/24 20:00 06/03/24 19:59 laboratory and microbiology Laboratory Tests 06/02/24 03:25 Test 06/02/24 03:25 Range/Units Serum Glucose 115 H 74-106 mg/dL Microbiology Date/Time Source Procedure Growth Status 05/24/24 17:06 Other Gram Stain - Final Complete 05/24/24 17:06 Other Anaerobic Culture - Final Complete 05/24/24 17:06 Aerobic Culture - Final Yeast, not Shawanda albicans Complete 05/17/24 01:52 Urine - [place] Urine Culture - Final Yeast, not Shawanda albicans Complete 05/16/24 22:55 Blood Blood Culture - Final NO GROWTH AFTER 5 DAYS OF INCUBATION. 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 CPAP TRIAL ONGOING TEMP 100 WBC WNL ABD SOFT DRAIN IN PLACE SEROSANGUINEOUS RIGHT 20CC LESS PURULENT, LEFT 10 CC SEROSANGUINEOUS DRESSING ABD WOUND DRAINAGE NOTED AND EXPECTED BUT LESS REPEAT CT SCAN NOTED NO MAJOR COLLECTION CONDITION GUARDED ILEOSTOMY VIABLE AND FUNCTIONAL FAMILY UPDATED NURSE AT BEDSIDE CONTINUE SUPPORTIVE CARE PULM EVAL ONGOING Plan discussed with: Other My Orders My Orders Orders - SHEY COVARRUBIAS MD Procedure Category Date Status Time Communication Order ORDERS 06/01/24 Transmitted 20:04 Communication Order ORDERS 06/01/24 Transmitted 20:04 Dietary Evaluation Review Comments: 1) Advance pt diet when medically feasible to a 2gmNa diet modified per [employer] recommendations 2) Continue current plan of care Expected Outcomes/Goals: 1) Pt diet to advance 2) F/U in 2-3 days SHEY COVARRUBIAS MD Jun 02, 2024 13:08
--- NOTE | 2024-06-02 15:32 | DVHPN2 ---
Progress Note - Dictate Date Seen: Jun 02, 2024 Has the PT tested + for MRSA If YES, has PT been informed?: No Medical Necessity Reason Pt with a Central, PICC or Fol: Yes The following are medically ne: Muhammad Catheter Reason for muhammad catheter: Strict I&O Subjective Patient seen and examined at bedside. Sedated, intubated on mechanical ventilator. Overnight events reviewed. vital signs Vital Sign Date Time Temp Pulse Resp B/P (MAP) Pulse Ox O2 Delivery O2 Flow Rate FiO2 06/02/24 13:46 76 18 105/36 (59) 100 30 06/02/24 12:00 Mechanical Ventilator+ 06/02/24 10:30 99.9 211.8 Total Intake and Output 06/01/24 06/01/24 06/02/24 15:00 23:00 07:00 Intake Total 877 ml 847 ml 779 ml Output Total 1090 ml 1400 ml Balance 877 ml -243 ml -621 ml medications Current Medications Medications Dose Ordered Sig/Nora Route Start Time Stop Time Status Last Admin Dose Admin Ondansetron HCl 4 mg Q4HP PRN IV 05/07/24 16:30 05/16/24 05:55 4 MG Fentanyl Citrate 250 ml @ 2.5 mls/hr Q24H IV 05/16/24 14:00 06/02/24 09:39 20 MLS/HR Midazolam HCl 50 ml @ 1 mls/hr Q24H IV 05/16/24 21:00 06/02/24 06:53 7 MLS/HR Phenylephrine HCl 250 ml @ 30 mls/hr Q8H20M IV 05/16/24 21:15 05/17/24 06:03 30 MLS/HR Acetaminophen 650 mg Q6HPRN PRN MS 05/16/24 22:30 05/31/24 01:23 650 MG Pantoprazole Sodium 40 mg DAILY IV 05/17/24 10:00 06/02/24 09:42 40 MG Amino Acids 0 ml @ 0 mls/hr PER PHARMACY IV 05/17/24 08:30 Meropenem 50 ml @ 17 mls/hr Q8HR IV 05/18/24 14:00 06/02/24 05:03 17 MLS/HR Vancomycin HCl 0 ml @ 0 mls/hr UD IV 05/18/24 07:45 Metoprolol Tartrate 1.25 mg Q6HPRN PRN IV 05/18/24 16:00 05/18/24 16:17 1.25 MG Norepinephrine Bitartrate 32 mg/ Sodium Chloride 250 ml @ 0.938 mls/ hr Q24H IV 05/18/24 16:00 05/28/24 09:55 0.938 MLS/HR Amiodarone HCl 250 ml @ 16.667 mls/ hr Q15H IV 05/18/24 22:30 05/20/24 20:59 16.667 MLS/HR Potassium Chloride 100 ml @ 50 mls/hr Q2H IV 05/22/24 12:30 05/22/24 16:29 Cancel Micafungin Sodium 100 mg/Sodium Chloride 100 ml @ 100 mls/hr DAILY IV 05/23/24 10:00 06/02/24 09:38 100 MLS/HR Diagnostic Test (Pha) 1 strip Q6HR 05/24/24 12:00 06/02/24 12:13 1 STRIP Insulin Human Regular FOLLOW SLIDING SCALE Q6HR SC 05/24/24 12:00 06/02/24 12:13 2 UNITS Dextrose 50 ml UD IV 05/24/24 12:00 Dexmedetomidine HCl 400 mcg/ Dextrose 100 ml @ 3.17 mls/hr Q24H IV 05/28/24 20:45 Hydralazine HCl 10 mg Q6HP PRN IV 05/30/24 16:15 06/02/24 05:36 10 MG Vancomycin HCl 200 ml @ 200 mls/hr DAILY@1500 IV 05/31/24 15:00 06/01/24 15:24 200 MLS/HR Fat Emulsion Intravenous 50 ml/ Sodium Acetate 20 meq/Sodium Phosphate 20 meq/ Potassium Chloride 40 meq/ Magnesium Sulfate 16 meq/ Multivitamins 10 ml/Chromium/ Copper/Manganese/ Zinc 1 ml/Insulin Human Regular 16 units/Amino Acids/ Dextrose/Purified Water 1,500.16 ml @ 62 mls/hr [id number] IV 06/01/24 20:00 06/02/24 19:59 06/01/24 20:48 62 MLS/HR Enoxaparin Sodium 70 mg Q12HR SC 06/01/24 22:00 06/02/24 09:42 70 MG Labetalol HCl 10 mg Q2HPRN PRN IV 06/02/24 07:45 06/02/24 08:44 10 MG Fat Emulsion Intravenous 100 ml/Potassium Chloride 20 meq/ Magnesium Sulfate 20 meq/ Multivitamins 10 ml/Chromium/ Copper/Manganese/ Zinc 1 ml/Insulin Human Regular 16 units/Sodium Acetate 10 meq/ Sodium Phosphate 30 meq/Potassium Acetate 20 meq/ Amino Acids/ Dextrose/Purified Water 1,598.66 ml @ 66 mls/hr [id number] IV 06/02/24 20:00 06/03/24 19:59 objective Gen.: Patient lying in bed in medical ICU. Sedated, intubated on mechanical ventilator. Head: Normocephalic, atraumatic. Eyes: PERRLA. Ears: Normal external anatomy. Throat: Endotracheal tube and orogastric tube in place. Neck: Supple, trachea midline. Chest: Transmitted breath sounds bilaterally. Decreased air entry bilaterally. No wheezing. Bibasilar crackles. Cardio vascular: Positive S1, positive S2. Regular rate and rhythm. Abdomen: Positive bowel sounds in all 4 quadrants. Soft, nontender, nondistended. : Muhammad in place. Normal external genitalia. Rectal: Deferred Skin: Warm, dry. Intact. Extremities: 2+ radial pulses bilaterally. No lower extremity edema. Neuro: Sedated. laboratory and microbiology Laboratory Tests 06/02/24 03:25 Test 06/02/24 03:25 Range/Units Serum Glucose 115 H 74-106 mg/dL Assessment/Plan Impression: Acute hypoxic respiratory failure On mechanical ventilator Abdominal pain due to recent robotic surgery hysterectomy and salpingo- oophorectomy History of breast cancer with bilateral mastectomies History of bowel surgery and ileostomy Anemia due to hemorrhage on hemodilution Shock Chronic pain syndrome Anemia Atrial fibrillation with RVR Bowel perforation with repeat exploratory laparotomy with ileostomy creation Events: Remains on vent support ABG reviewed. Alkalemia due to resp alkalosis. US Venous Doppler of RUE: Non-occlusive thrombus in Right axillary vein and brachial vein. Occlusive thrombus in right cephalic vein. On Lovenox, therapeutic. On assist control with a respiratory rate of 18, tidal volume 450, PEEP of 5, FiO2 of 30%. CPAP trial today with PS 11, Peep 5. FIO2 30% Tolerating CPAP well. Remains on sedation. When we taper sedation, patient becomes tachypneic and tachycardic. TPN for nutritional support. Monitor EVARISTO drain Continue antibiotics ID has been consulted. F/u wound culture results. Monitor Hgb, 7.9 g/dL. Slight trend down. Surgery recommendations appreciated. Patient remains on sedation with fentanyl and Versed drips. Potassium supplementation Monitor renal function Monitor hemoglobin closely. Transfuse if less than 7.0 grams/deciliter. Poor prognosis Consider Trach/PEG as means of liberation from mechanical ventilator. ABG reviewed - alkalemia due to respiratory alkalosis. Chest x-ray imaging report reviewed, stable. Devices in place. Mild pulmonary vascular congestion. No pleural effusion or pneumothorax. Rest of plan as outlined below. Plan: s/p intubation on mechanical ventilator CXR image and report reviewed. Devices in place. Pulmonary vascular congestion. Right bibasilar airspace opacities. No pleural effusion or pneumothorax. ABG reviewed. On assist control with a respiratory rate of 18, tidal volume 450, PEEP of 5, FiO2 of 30%. Titrate FIO2 to keep O2 saturation above 92%. VAP bundle Daily ABG and CXR while intubated. Sedate for ventilatory synchrony Continue antibiotics. F/u cultures. Monitor hemoglobin Transfuse if less than 7.0 grams/deciliter Monitor renal function due to Acute kidney injury. Monitor electrolytes. Supplement as necessary. Surgery recommendations appreciated. Nutritional support. On TPN Accucheks, ISS. GI/DVT prophylaxis. Condition: Critical Prognosis: Poor given multiple comorbidities. Rest of plan per hospitalist and other consultants. A total of 35 minutes of critical care time was spent reviewing the patient record, examining the patient, making a diagnostic and therapeutic plan, discussing this plan with the medical personnel, following up on diagnostic studies and following the patient for clinical stability excluding any and all procedures. At least 50% of this time was spent in direct, [id number] contact. Thank you Dr Reid for allowing me to participate in this patient's care. Further recommendations will depend on patient's clinical course. Please do not hesitate to contact me if you have any questions or concerns. This medical document was created using an electronic medical record system with [employer] system. Although this document has been carefully reviewed, there may still be some phonetic and typographical errors. These areas are purely typographical due to imperfections of the software programs, and do not reflect any compromise in the patient's medical care. Dietary Evaluation Review Comments: 1) Advance pt diet when medically feasible to a 2gmNa diet modified per HEARING AID DISPENSER recommendations 2) Continue current plan of care Expected Outcomes/Goals: 1) Pt diet to advance 2) F/U in 2-3 days Plan discussed with: Other (YASH Briones ) Critical Care Time(min): 35 RG LEONE MD Jun 02, 2024 15:32
--- NOTE | 2024-06-02 20:30 | DVHPN2 ---
Progress Note - Dictate Date Seen: Jun 02, 2024 Has the PT tested + for MRSA If YES, has PT been informed?: No Medical Necessity Reason Pt with a Central, PICC or Fol: Yes The following are medically ne: Muhammad Catheter Reason for muhammad catheter: Strict I&O Subjective Ms. Barrera is a 68 years old right-handed female with a history of hypertension, anemia, breast cancer, she was admitted to the [facility] on 05/07/2024 for scheduled hysterectomy and oophorectomy. Post surgically, she woke up with left-sided weakness, and MRI showed multiple stroke in the right MCA territory. During the hospital stay, she developed fall perforation, and she went through abdominal surgery on 05/16/2024 Because of ongoing intraperitoneal sepsis/peritonitis, the patient went through exploratory laparotomy on 05/24/2024 I have seen and examined the patient in the ICU, I have discussed with her nurse. She is respond to painful stimuli, She keeps spiking temperature The drainage looks cloudy Right pupil slightly bigger, especially when they are dilated Fentanyl 200 mcg/hour, Versed 7 mg/hour CBC, 05/16/2024: Metabolic acidosis, 05/17/2024: Metabolic acidosis, 05/18/2024: Metabolic acidosis URINALYSIS, 05/11/2024: WBC: 2, URINE LEUKOCYTE ESTERASE: NEGATIVE WBC/HB/PLT/MCV, 05/04: 5.1/10.7/119/98.3, 05/17/2024: 20.4/8.5/205/86.9 05/19/2024: 12.2/11.1/125/86.2, 05/20/2024: 8.1/10.5/113/86.1, 05/21/2024: 6.6/10.5/106/86.5, 05/26/2024: 9.6/9.2/184/93.8, 05/28/2024: 7.5/7/223/89.6, 05/29/24: 6.8/5.9/251/88.1, 05/30/2024: 7.4/7.7/268/86.6 PT/INR/FTT, 05/16/2024: 17.4/1.71/34.2 K, 05/09/2024: 3.9, 05/10/24:3.1, 05/12/2024: 3.4, 05/16/2024: 2.8 Lactic acid, 05/15/2024: 1.6, 05/16/2024: 1.5 HCO3, 05/23/2024: 35 Bun.Cr, 05/23/2024: 37/0.75 LIVER FUNCTION TESTS, 05/12/2024: UNREMARKABLE, 05/16/2024: Unremarkable TBI/AST/ALT/AP, 05/18/2024: 1.2//, 05/19/2024: 3.1/04/23/2067, 05/23/2024: 3.1/48/35/170, 05/29/2024: 2.3///117 TG/HDL/LDL/HDL, 05/12/2024: 196/134/75/23 TSH, 05/12/2024: 2.01 Echocardiogram 05/14/2024: lvef 65% by visual estimate mild mitral regurg RV enlarged mild left atrium enlarged mild Extremity venous study, 06/01/2024: No left upper extremity DVT. Right internal jugular vein and subclavian vein are not visualized secondary to patient positioning. Nonocclusive thrombus is seen in the right axillary vein and brachial vein. Occlusive thrombus is present at the right cephalic vein. Carotid Doppler, 05/11/2024: 1. Occlusion of the right proximal ICA. 2. Greater than 50% stenosis of the right proximal ECA. 3. Greater than 50% stenosis of the left proximal ICA CT head, 05/11/2024: 1. Chronic lacunar infarct in right centrum semiovale. 2. Chronic periventricular ischemic changes. 3. Cerebral and cerebellar atrophy, likely age-related. 4. Advised further evaluation with MRI brain without contrast if clinically indicated CT abdomen/pelvis, 05/15/2024: Small bowel obstruction with evidence of perforation including free intraperitoneal fluid and air. Extensive subcutaneous emphysema likely secondary to bowel perforation CT abdomen/pelvis, 05/16/2024: 1. Sequelae of recent postsurgical changes as described above. Correlate with surgical history. 2. Pneumoperitoneum and free fluid in the abdomen and pelvis. 3. Large collection containing fluid and gas, predominantly in the right hemiabdomen. There is GI contrast extending into this collection from an adjacent small bowel loop. There is a component of this collection extending adjacent to the anterior superior aspect of the liver. 4. Moderate right hydronephrosis and hydroureter. The distal right ureter appears to be compressed by the large fluid collection in the right hemiabdomen. No obstructing calculus. 5. Dilated small bowel loops in the left hemiabdomen with suspected small-bowel obstruction. 6. Prominent subcutaneous edema in the ventral abdominal wall and extending caudally into the inguinal regions bilaterally, peroneal region, and anterior aspect of the left thigh. 7. Small bilateral pleural effusions with overlying atelectasis. 8. Additional findings as detailed above. CT abdomen, 05/23/2024: Postsurgical changes of the ventral abdomen with interval improvement in the diffuse soft tissue edema and ventral abdominal, pelvis and upper thigh subcutaneous emphysema. Interval significant decrease in size of the loculated collection within the right hemiabdomen and pelvis with small residual. Interval placement of drainage catheters terminating over the left upper abdominal quadrant and left hemipelvis as detailed above. Interval development of small to moderate ascites. Wall thickening of fluid-filled nondistended small bowel loops of the anterior mid to lower abdomen which may be from the surrounding ascites versus enteritis. Additional findings as above CT abdomen staff pelvis, 05/30/2024: 1. Radiodense contrast in the mid abdomen associated with surgical sutures. It is unclear whether this is in bowel or represents a bowel leak. Clinical correlation and continued follow-up is recommended. 2. Right pelvic, anterior abdominal wall and left abdomen drainage catheters in place. No definite abscess identified. 3. Extensive post postsurgical changes of the bowel. 4. Small amount of abdominal and pelvic ascities. 5. Small to moderate right pleural effusion. CTA neck, head, 05/14/24: 1. Complete occlusion of the right cervical internal carotid artery. There may be trickle flow in distal right cervical ICA. 2. Poor flow in the right intracranial ICA likely retrograde perfusion through the contralateral left side posterior circulation through the communicating arteries. 3. High-grade stenosis at the left carotid bulb with at least 70-80% stenosis. Moderate short-segment stenosis in the left proximal ICA with at least 60% stenosis. MRI HEAD, 05/11/2024: 1. Multiple foci of restricted diffusion in the right centrum semiovale and along the right superior frontal lobe compatible with acute to subacute infarcts. There is no evidence of acute hemorrhage or significant surrounding edema. 2. Absence of flow void in the intracranial portions of the right internal carotid artery which is likely occluded. vital signs Vital Sign Date Time Temp Pulse Resp B/P (MAP) Pulse Ox O2 Delivery O2 Flow Rate FiO2 06/02/24 19:00 98.6 76 14 136/43 (74) 100 209.5 06/02/24 18:19 30 06/02/24 18:00 Mechanical Ventilator+ Total Intake and Output 06/01/24 06/01/24 06/02/24 15:00 23:00 07:00 Intake Total 877 ml 847 ml 779 ml Output Total 1090 ml 1400 ml Balance 877 ml -243 ml -621 ml medications Current Medications Medications Dose Ordered Sig/Nora Route Start Time Stop Time Status Last Admin Dose Admin Ondansetron HCl 4 mg Q4HP PRN IV 05/07/24 16:30 05/16/24 05:55 4 MG Fentanyl Citrate 250 ml @ 2.5 mls/hr Q24H IV 05/16/24 14:00 06/02/24 09:39 20 MLS/HR Midazolam HCl 50 ml @ 1 mls/hr Q24H IV 05/16/24 21:00 06/02/24 15:55 7 MLS/HR Phenylephrine HCl 250 ml @ 30 mls/hr Q8H20M IV 05/16/24 21:15 05/17/24 06:03 30 MLS/HR Acetaminophen [address] 05/16/24 22:30 05/31/24 01:23 650 MG Pantoprazole Sodium 40 mg DAILY IV 05/17/24 10:00 06/02/24 09:42 40 MG Amino Acids 0 ml @ 0 mls/hr PER PHARMACY IV 05/17/24 08:30 Meropenem 50 ml @ 17 mls/hr Q8HR IV 05/18/24 14:00 06/02/24 16:20 17 MLS/HR Vancomycin HCl 0 ml @ 0 mls/hr UD IV 05/18/24 07:45 Metoprolol Tartrate 1.25 mg Q6HPRN PRN IV 05/18/24 16:00 05/18/24 16:17 1.25 MG Norepinephrine Bitartrate 32 mg/ Sodium Chloride 250 ml @ 0.938 mls/ hr Q24H IV 05/18/24 16:00 05/28/24 09:55 0.938 MLS/HR Amiodarone HCl 250 ml @ 16.667 mls/ hr Q15H IV 05/18/24 22:30 05/20/24 20:59 16.667 MLS/HR Potassium Chloride 100 ml @ 50 mls/hr Q2H IV 05/22/24 12:30 05/22/24 16:29 Cancel Diagnostic Test (Pha) 1 strip Q6HR 05/24/24 12:00 06/02/24 18:00 1 STRIP Insulin Human Regular FOLLOW SLIDING SCALE Q6HR SC 05/24/24 12:00 06/02/24 12:13 2 UNITS Dextrose 50 ml UD IV 05/24/24 12:00 Dexmedetomidine HCl 400 mcg/ Dextrose 100 ml @ 3.17 mls/hr Q24H IV 05/28/24 20:45 Hydralazine HCl 10 mg Q6HP PRN IV 05/30/24 16:15 06/02/24 05:36 10 MG Vancomycin HCl 200 ml @ 200 mls/hr DAILY@1500 IV 05/31/24 15:00 06/02/24 15:42 200 MLS/HR Enoxaparin Sodium 70 mg Q12HR SC 06/01/24 22:00 06/02/24 09:42 70 MG Labetalol HCl 10 mg Q2HPRN PRN IV 06/02/24 07:45 06/02/24 08:44 10 MG Fat Emulsion Intravenous 100 ml/Potassium Chloride 20 meq/ Magnesium Sulfate 20 meq/ Multivitamins 10 ml/Chromium/ Copper/Manganese/ Zinc 1 ml/Insulin Human Regular 16 units/Sodium Acetate 10 meq/ Sodium Phosphate 30 meq/Potassium Acetate 20 meq/ Amino Acids/ Dextrose/Purified Water 1,598.66 ml @ 66 mls/hr [id number] IV 06/02/24 20:00 06/03/24 19:59 Micafungin Sodium 100 mg/Sodium Chloride 100 ml @ 100 mls/hr DAILY IV 06/03/24 10:00 objective General: the patient is well developed and nourished. No acute distress. ABDOMEN: Status post surgery MENTAL STATUS: Subjective. CRANIAL NERVES: Pupils are round and reactivel. There are corneal reflexes and doll's eyes phenomenon. No signs of facial weakness. There are weak gagging or coughing reflexes SENSATION: No responses to pain stimuli. MOTOR: Normal tone in the upper and lower extremity. Normal muscle bulk. No fasciculations. No spontaneous movement. REFLEXES: Deep tendon reflexes are symmetrical. No pathological reflexes. CEREBELLAR/COORDINATION: Deferred GAIT/STATION: deferred. laboratory and microbiology Laboratory Tests 06/02/24 03:25 Test 06/02/24 03:25 Range/Units Serum Glucose 115 H 74-106 mg/dL Problem List Pelvic prolapse, can count urethrovesical junction, surgery repair on 05/07/2024 (Robotic supracervical hysterectomy bilateral salpingo-oophorectomy colposcopic pexy cystocele repair urethral sling partial vaginectomy) Bowel obstruction with perforation, intra-abdominal abscess, dense at [place], status post surgery 05/16/2024 Sepsis/septic shock Metabolic encephalopathy Acute right MCA territory multiple strokes Left hemiparesis Right ICA occlusion Left ICA severe stenosis Anemia, with unstable H&H Status post oophorectomy, hysterectomy Anisocoria, uncertain clinical significance DVT Assessment/Plan Monitoring Supportive treatment ICU care Stabilize vitals/pressor drip Respiratory support/vent management IV antibiotics Oxygen Lipitor 20 mg daily (NPO) TPN Up to chair Physical therapy Further address bilateral carotid stenosis CLARA on discharge Surgery on case Okay to use Lovenox for DVT from neurologic point of view More recommendation per clinical course This medical document was created using an electronic medical record system with [employer] dictation system. Although this document has been carefully reviewed, there may still be some phonetic and typographical errors. These areas are purely typographical due to imperfections of the software programs, and do not reflect any compromise in the patient's medical care Prognosis guarded Dietary Evaluation Review Comments: 1) Advance pt diet when medically feasible to a 2gmNa diet modified per P[employer]K MACHINE OPERATOR recommendations 2) Continue current plan of care Expected Outcomes/Goals: 1) Pt diet to advance 2) F/U in 2-3 days Plan discussed with: Other BRYAN FLORES MD Jun 02, 2024 20:30
[2024-06-02] MEDS: TPN PER PHARMACY IV NR (20:53)
[2024-06-03] VITALS (109 sets, daily range): BP systolic 71–197; BP diastolic 23–73; PULSE 72–114; RESP 10–32; TEMP 97.9–100.2; O2SAT 83–100
[2024-06-03 04:53] LABS: Eosinophils # (auto) 0.1 10 ^3/uL (0-0.8); Hemoglobin 7.9 g/dL (12.2-16.2); Monocytes # (auto) 0.9 10 ^3/uL (0-1.3); Red Cell Distribution Width 14.5 % (11.8-14.3); White Blood Cell 9.2 10^3/uL (4.4-10.8)
[2024-06-03 04:54] LABS: Basophils # (auto) 0.1 10 ^3/uL (0-0.2); Basophils % (auto) 1.6 % (0.0-2.0); Eosinophils % (auto) 1.1 % (0.0-7.0); Hematocrit 23.2 % (36.0-46.0); Lymphocytes # (auto) 0.5 10 ^3/uL (0.4-5.4); Lymphocytes % (auto) 5.1 % (10.0-50.0); Mean Corpuscular Hemoglobin 29.9 pg (28.0-32.0); Mean Corpuscular Hgb Conc. 33.9 g/dL (32.0-36.0); Monocytes % (auto) 10.3 % (0.0-12.0); Neutrophils # (auto) 7.5 10 ^3/uL (1.6-8.6); Neutrophils % (auto) 81.9 % (37.0-80.0); Platelet Count (auto) 305 10^3/uL (140-450); Red Blood Cells 2.63 10^6/uL (4.0-5.20)
[2024-06-03 05:10] LABS: Alanine Aminotransferase 22 U/L (7-40); Alkaline Phosphatase 158 U/L (46-116); Anion Gap 5 (5-15); Aspartate Aminotransferase 28 U/L (13-40); Blood Urea Nitrogen 27 mg/dL (9-23); Calcium 9.2 mg/dL (8.7-10.4); Carbon Dioxide 25 mmol/L (20-31); Chloride 105 mmol/L (98-107); Glucose 127 mg/dL (74-106); Magnesium 2.1 mg/dL (1.6-2.6); Potassium 4.1 mmol/L (3.5-5.1); Sodium 135 mmol/L (136-145)
[2024-06-03 05:11] LABS: Albumin 2.8 g/dL (3.2-4.8); Bilirubin, Total 1.9 mg/dL (0.2-1.0); Total Protein 6.2 g/dL (5.7-8.2)
--- NOTE | 2024-06-03 05:33 | DVH ---
EXAM: XY CHEST PORTABLE Indication:vent Technique: Single frontal view of the chest was obtained Comparison: XY CHEST PORTABLE on DOS: 05/31/24, XY CHEST PORTABLE on DOS: 05/30/24, XY CHEST PORTABLE on DOS: 05/29/24, XY CHEST PORTABLE on DOS: 05/28/24, XY CHEST PORTABLE on DOS: 05/27/24, XY CHEST P ORTABLE on DOS: 05/31/24 FINDINGS: Lines and Tubes: Endotracheal tube, enteric catheter, right central venous catheter and right chest p ort in satisfactory position. Lungs: Mild congestion Pleura: No effusion. No pneumothorax. Cardiomediastinal contours: Unremarkable Bones: Unremarkable IMPRESSION: Lines and tubes in satisfactory position. No significant interval change.
[2024-06-03] MEDS: NOREPINEPHRINE 8 MG/250ML KIT 0 ML IV ONE (07:23)
[2024-06-03 07:40] LABS: Base Excess 1.4 mmol/L (-2.0-3.0)
[2024-06-03] MEDS: MICAFUNGIN SODIUM 100 MG in SODIUM CHL 0.9% 100 ML IV SCH (08:57)
--- NOTE | 2024-06-03 13:08 | DVHPN2 ---
Subjective Intubated and sedated The fever is slightly better at 99.5 Reviewed: Care Plan, H&P, Labs, Medications, Previous Orders, Radiology Changes from previous H/P or p: Changes General: Per HPI Eyes: No Pain, No Vision change, No Conjunctivae inflammation, No Eyelid inflammation, No Other, No Redness ENT: No Ear pain, No Ear discharge, No Nose pain, No Nose discharge, No Nose congestion, No Mouth pain, No Mouth swelling, No Throat pain, No Throat swelling, No Other Cardiovascular: No Chest Pain, No Palpitations, No Orthopnea, No Paroxysmal Noc. Dyspnea, No Edema, No Lt Headedness, No Other Respiratory: No Cough, No Dry, No Shortness of breath, No SOB with excertion, No Wheezing, No Hemoptysis, No Pleuritic Pain, No Sputum, No Other Gastrointestinal: Nausea Genitourinary: No Dysuria, No Frequency, No Incontinence, No Hematuria, No Retention, No Other Musculoskeletal: No other, No neck pain, No shoulder pain, No arm pain, No back pain, No hand pain, No leg pain, No foot pain Skin: No Rash, No Lesions, No Jaundice, No Bruising, No Other Objective Vitals Vital Signs Date Time Temp Pulse Resp B/P (MAP) Pulse Ox O2 Delivery O2 Flow Rate FiO2 06/03/24 12:30 141/30 06/03/24 12:21 77 15 100 30 06/03/24 11:30 99.5 211.1 06/03/24 08:00 Mechanical Ventilator+ Intake/Output Intake and Output 06/03/24 07:00 Intake Total 2548.25 ml Output Total 2890 ml Balance -341.75 ml Intake Oral 0 ml IV Total 2548.25 ml Output Urine Total 2350 ml Stool Total 125 ml Gastric Drainage Total 150 ml Drainage Total 85 ml Other 180 ml General Appearance: moderate distress, Other (Intubated and sedated) HEENT: Atraumatic, PERRLA, Other (Pupils equal, 4 mm, reactive to light to 3 mm) Lungs: Clear to auscultation, Normal air movement, Other (Mechanical ventilation) Cardiovascular: Regular rate, Normal S1, Normal S2 Abdomen: Other (Ileostomy with drainage. 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) Skin: Dry, Intact, Other (Surgical incision dry and intact) Psych/Mental Status: Mental status NL, Mood NL Medications Current Medications Medications Dose Ordered Sig/Nora Route Start Time Stop Time Status Last Admin Dose Admin Ondansetron HCl 4 mg Q4HP PRN IV 05/07/24 16:30 05/16/24 05:55 4 MG Fentanyl Citrate 250 ml @ 2.5 mls/hr Q24H IV 05/16/24 14:00 06/03/24 04:53 22.5 MLS/HR Midazolam HCl 50 ml @ 1 mls/hr Q24H IV 05/16/24 21:00 06/03/24 12:30 1 MLS/HR Phenylephrine HCl 250 ml @ 30 mls/hr Q8H20M IV 05/16/24 21:15 05/17/24 06:03 30 MLS/HR Acetaminophen 650 mg Q6HPRN PRN MS 05/16/24 22:30 06/03/24 05:06 650 MG Pantoprazole Sodium 40 mg DAILY IV 05/17/24 10:00 06/03/24 08:57 40 MG Amino Acids 0 ml @ 0 mls/hr PER PHARMACY IV 05/17/24 08:30 Meropenem 50 ml @ 17 mls/hr Q8HR IV 05/18/24 14:00 06/02/24 21:14 17 MLS/HR Vancomycin HCl 0 ml @ 0 mls/hr UD IV 05/18/24 07:45 Metoprolol Tartrate 1.25 mg Q6HPRN PRN IV 05/18/24 16:00 05/18/24 16:17 1.25 MG Norepinephrine Bitartrate 32 mg/ Sodium Chloride 250 ml @ 0.938 mls/ hr Q24H IV 05/18/24 16:00 05/28/24 09:55 0.938 MLS/HR Amiodarone HCl 250 ml @ 16.667 mls/ hr Q15H IV 05/18/24 22:30 05/20/24 20:59 16.667 MLS/HR Potassium Chloride 100 ml @ 50 mls/hr Q2H IV 05/22/24 12:30 05/22/24 16:29 Cancel Diagnostic Test (Pha) 1 strip Q6HR 05/24/24 12:00 06/03/24 12:00 1 STRIP Insulin Human Regular FOLLOW SLIDING SCALE Q6HR SC 05/24/24 12:00 06/03/24 05:50 2 UNITS Dextrose 50 ml UD IV 05/24/24 12:00 Dexmedetomidine HCl 400 mcg/ Dextrose 100 ml @ 3.17 mls/hr Q24H IV 05/28/24 20:45 Hydralazine HCl 10 mg Q6HP PRN IV 05/30/24 16:15 06/03/24 04:02 10 MG Vancomycin HCl 200 ml @ 200 mls/hr DAILY@1500 IV 05/31/24 15:00 06/02/24 15:42 200 MLS/HR Enoxaparin Sodium 70 mg Q12HR SC 06/01/24 22:00 06/03/24 08:58 70 MG Labetalol HCl 10 mg Q2HPRN PRN IV 06/02/24 07:45 06/02/24 08:44 10 MG Fat Emulsion Intravenous 100 ml/Potassium Chloride 20 meq/ Magnesium Sulfate 20 meq/ Multivitamins 10 ml/Chromium/ Copper/Manganese/ Zinc 1 ml/Insulin Human Regular 16 units/Sodium Acetate 10 meq/ Sodium Phosphate 30 meq/Potassium Acetate 20 meq/ Amino Acids/ Dextrose/Purified Water 1,598.66 ml @ 66 mls/hr [id number] IV 06/02/24 20:00 06/03/24 19:59 06/02/24 20:53 66 MLS/HR Micafungin Sodium 100 mg/Sodium Chloride 100 ml @ 100 mls/hr DAILY IV 06/03/24 10:00 06/03/24 08:57 100 MLS/HR Fat Emulsion Intravenous 100 ml/Sodium Acetate 10 meq/Sodium Phosphate 20 meq/ Potassium Acetate 10 meq/Magnesium Sulfate 20 meq/ Multivitamins 10 ml/Chromium/ Copper/Manganese/ Zinc 1 ml/Insulin Human Regular 18 units/Amino Acids/ Dextrose/Purified Water 1,581.18 ml @ 66 mls/hr [id number] IV 06/03/24 20:00 06/04/24 19:59 Laboratory Results Laboratory Tests 06/03/24 04:30 Chemistry Test 06/03/24 04:20 06/03/24 04:30 Phosphorus Level 3.5 mg/dL (2.4-5.1) Albumin 2.8 g/dL (3.2-4.8) L Calcium Level 9.2 mg/dL (8.7-10.4) Magnesium Level 2.1 mg/dL (1.6-2.6) Total Protein 6.2 g/dL (5.7-8.2) LFT Test 06/03/24 04:30 Alanine Aminotransferase (ALT) 22 U/L (7-40) Alkaline Phosphatase 158 U/L (46-116) H Aspartate Amino Transferase (AST) 28 U/L (13-40) Total Bilirubin 1.9 mg/dL (0.2-1.0) H Urinalysis Test 05/11/24 16:18 Urine Color Yellow (Yellow) Urine Clarity Clear (Clear) Urine pH 6.0 (5.0-9.0) Urine Specific [place] 1.020 (1.001-1.035) Urine Protein 1+ (Negative) H Urine Ketones 4+ (Negative) H Urine Blood Trace /uL (Negative) H Urine Nitrite Negative (Negative) Urine Bilirubin Negative (Negative) Urine Urobilinogen Normal mg/dL (Negative) Urine Leukocyte Esterase Negative /uL (Negative) Urine RBC 2 /hpf (0 - 4) Urine WBC 2 /hpf (0 - 5) Urine Squamous Epithelial Cells Few /hpf (<5) Urine Bacteria None seen /hpf (None Seen) Urine Mucus Few (None Seen) Urine Glucose Normal mg/dL (Normal) Blood Gas Results Test 06/03/24 07:34 Arterial Blood pH 7.498 (7.350-7.450) FiO2 % 30.0 Microbiology Microbiology Date/Time Source Procedure Growth Status 06/02/24 11:02 Blood Blood Culture - Preliminary NO GROWTH AFTER 24 HOURS OF INCUBATION. Resulted 05/24/24 17:06 Other Gram Stain - Final Complete 05/24/24 17:06 Other Anaerobic Culture - Final Complete 05/24/24 17:06 Aerobic Culture - Final Yeast, not Shawanda albicans Complete 05/17/24 01:52 Urine - [place] Urine Culture - Final Yeast, not Shawanda albicans Complete 05/16/24 14:20 Sputum Gram Stain - Final Complete 05/16/24 14:20 Respiratory Culture - Final Yeast, not Shawanda albicans Complete Assessment/Plan Assessment/Plan Robotic surgery hysterectomy and salpingo-oophorectomy complicated by Acute CVA Acute CVA w LUE hemiparesis Bowel perforation with repeat exploratory laparotomy with ileostomy creation History of breast cancer with bilateral mastectomies Afib RVR Acute hypoxic respiratory failure Mechanical intubation Exploratory laparotomy, drainage of intraabdominal abscess, thorough peritoneal lavage with reinforcement of the anastomotic location of the previous anastomosis as well as a diverting loop ileostomy on 05/24/24 Anemia Right upper extremity DVT Plan Mechanical ventilation TPN IV antibiotics: Vancomycin + Meropenem No vasopressors Sedation prn GI Prophylaxis: Protonix Transfuse blood prn 05/29/24: Transfuse 1 unit RBCs for Hb 5.9 Lasix 20 mg IV x1 Check Hb after transfusion Off pressors Antibiotics: Meropenem, Vanco, Micafungin Amiodarone IV Taper sedation down as tolerated CXR: Clear TPN Protonix 05/30/24: Discussed with Dr. Fritz Lake Will do CT ABD pelvis to follow up on abscess IV antibiotics Taper sedation down C-PAP? per Dr. Poon 05/31/24: CT abdomen showed no fluid collection IV antibiotics: Meropenem, Vancomycin & Micafungin Amiodarone Dr. Fritz Lake recommended to continue medical treatment, no surgical intervention Sedation as needed TPN 06/01/2024: Start Lovenox 70 mg subQ q.[address] Lake and Neurology IV antibiotics meropenem and vancomycin Micafungin TPN Tapered down sedation as tolerated 06/02/24: Fever Yeast in cultures: Micafungin IV antibiotics: Meropenem & Vanco TPN RUE DVT: Lovenox Normocytic anemia 7.9 Consult ID [place] Cultures Afib: Amiodarone bruna Discussed with her sister over the phone 06/03/2024: IV antibiotics: Meropenem and vancomycin IV antifungal: Micafungin TPN Amiodarone IV Dr. Fritz Lake for surgery is on the case Plan discussed with: Other Date of Service: Jun 03, 2024 Billing Provider: BARI MOORE MD Common Visit Codes: NOT BILLABLE BARI MOORE MD Jun 03, 2024 13:08
--- NOTE | 2024-06-03 17:36 | DVHPN2 ---
Progress Note Date Seen: Jun 03, 2024 Has the PT tested + for MRSA If YES, has PT been informed?: No Medical Necessity Reason Pt with a Central, PICC or Fol: Yes The following are medically ne: Muhammad Catheter Reason for muhammad catheter: Strict I&O Objective vital signs Vital Sign Date Time Temp Pulse Resp B/P (MAP) Pulse Ox O2 Delivery O2 Flow Rate FiO2 06/03/24 17:07 154/50 06/03/24 16:45 99.7 89 20 100 211.5 06/03/24 16:00 Mechanical Ventilator+ 30 30 Total Intake and Output 06/02/24 06/02/24 06/03/24 15:00 23:00 07:00 Intake Total 845 ml 981 ml 722.25 ml Output Total 1315 ml 1575 ml Balance 845 ml -334 ml -852.75 ml medications Current Medications Medications Dose Ordered Sig/Nora Route Start Time Stop Time Status Last Admin Dose Admin Ondansetron HCl 4 mg Q4HP PRN IV 05/07/24 16:30 05/16/24 05:55 4 MG Fentanyl Citrate 250 ml @ 2.5 mls/hr Q24H IV 05/16/24 14:00 06/03/24 17:07 25 MLS/HR Midazolam HCl 50 ml @ 1 mls/hr Q24H IV 05/16/24 21:00 06/03/24 12:30 1 MLS/HR Phenylephrine HCl 250 ml @ 30 mls/hr Q8H20M IV 05/16/24 21:15 05/17/24 06:03 30 MLS/HR Acetaminophen 650 mg Q6HPRN PRN IN 05/16/24 22:30 06/03/24 05:06 650 MG Pantoprazole Sodium 40 mg DAILY IV 05/17/24 10:00 06/03/24 08:57 40 MG Amino Acids 0 ml @ 0 mls/hr PER PHARMACY IV 05/17/24 08:30 Meropenem 50 ml @ 17 mls/hr Q8HR IV 05/18/24 14:00 06/03/24 14:00 17 MLS/HR Vancomycin HCl 0 ml @ 0 mls/hr UD IV 05/18/24 07:45 Metoprolol Tartrate 1.25 mg Q6HPRN PRN IV 05/18/24 16:00 05/18/24 16:17 1.25 MG Norepinephrine Bitartrate 32 mg/ Sodium Chloride 250 ml @ 0.938 mls/ hr Q24H IV 05/18/24 16:00 05/28/24 09:55 0.938 MLS/HR Amiodarone HCl 250 ml @ 16.667 mls/ hr Q15H IV 05/18/24 22:30 05/20/24 20:59 16.667 MLS/HR Potassium Chloride 100 ml @ 50 mls/hr Q2H IV 05/22/24 12:30 05/22/24 16:29 Cancel Diagnostic Test (Pha) 1 strip Q6HR 05/24/24 12:00 06/03/24 17:03 1 STRIP Insulin Human Regular FOLLOW SLIDING SCALE Q6HR SC 05/24/24 12:00 06/03/24 17:04 2 UNITS Dextrose 50 ml UD IV 05/24/24 12:00 Dexmedetomidine HCl 400 mcg/ Dextrose 100 ml @ 3.17 mls/hr Q24H IV 05/28/24 20:45 Hydralazine HCl 10 mg Q6HP PRN IV 05/30/24 16:15 06/03/24 04:02 10 MG Vancomycin HCl 200 ml @ 200 mls/hr DAILY@1500 IV 05/31/24 15:00 06/03/24 14:41 200 MLS/HR Enoxaparin Sodium 70 mg Q12HR SC 06/01/24 22:00 06/03/24 08:58 70 MG Labetalol HCl 10 mg Q2HPRN PRN IV 06/02/24 07:45 06/02/24 08:44 10 MG Fat Emulsion Intravenous 100 ml/Potassium Chloride 20 meq/ Magnesium Sulfate 20 meq/ Multivitamins 10 ml/Chromium/ Copper/Manganese/ Zinc 1 ml/Insulin Human Regular 16 units/Sodium Acetate 10 meq/ Sodium Phosphate 30 meq/Potassium Acetate 20 meq/ Amino Acids/ Dextrose/Purified Water 1,598.66 ml @ 66 mls/hr [id number] IV 06/02/24 20:00 06/03/24 19:59 06/02/24 20:53 66 MLS/HR Micafungin Sodium 100 mg/Sodium Chloride 100 ml @ 100 mls/hr DAILY IV 06/03/24 10:00 06/03/24 08:57 100 MLS/HR Fat Emulsion Intravenous 100 ml/Sodium Acetate 10 meq/Sodium Phosphate 20 meq/ Potassium Acetate 10 meq/Magnesium Sulfate 20 meq/ Multivitamins 10 ml/Chromium/ Copper/Manganese/ Zinc 1 ml/Insulin Human Regular 18 units/Amino Acids/ Dextrose/Purified Water 1,581.18 ml @ 66 mls/hr [id number] IV 06/03/24 20:00 06/04/24 19:59 laboratory and microbiology Laboratory Tests 06/03/24 04:30 Test 06/03/24 04:30 Range/Units Serum Glucose 127 H 74-106 mg/dL Microbiology Date/Time Source Procedure Growth Status 06/02/24 11:02 Blood Blood Culture - Preliminary NO GROWTH AFTER 24 HOURS OF INCUBATION. Resulted 05/24/24 17:06 Other Gram Stain - Final Complete 05/24/24 17:06 Other Anaerobic Culture - Final Complete 05/24/24 17:06 Aerobic Culture - Final Yeast, not Shawanda albicans Complete 05/17/24 01:52 Urine - [place] Urine Culture - Final Yeast, not Shawanda albicans 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 CPAP TRIAL ONGOING TEMP 100 WBC WNL ABD SOFT DRAINS IN PLACE DRESSING ABD WOUND DRAINAGE NOTED AND EXPECTED BUT LESS CONDITION GUARDED ILEOSTOMY VIABLE AND FUNCTIONAL NURSE AT BEDSIDE CONTINUE SUPPORTIVE CARE PULM EVAL ONGOING Plan discussed with: Other Dietary Evaluation Review Comments: 1) Advance pt diet when medically feasible to a 2gmNa diet modified per [employer] SAL[employer] PERSON recommendations 2) Continue current plan of care Expected Outcomes/Goals: 1) Pt diet to advance 2) F/U in 2-3 days SHEY COVARRUBIAS MD Jun 03, 2024 17:36
[2024-06-03] MEDS: TPN PER PHARMACY IV NR (20:57)
--- NOTE | 2024-06-03 23:04 | DVHPN2 ---
Progress Note - Dictate Date Seen: Jun 03, 2024 Has the PT tested + for MRSA If YES, has PT been informed?: No Medical Necessity Reason Pt with a Central, PICC or Fol: Yes The following are medically ne: Muhammad Catheter Reason for muhammad catheter: Strict I&O Subjective Patient seen and examined at bedside. Sedated, intubated on mechanical ventilator. Overnight events reviewed. vital signs Vital Sign Date Time Temp Pulse Resp B/P (MAP) Pulse Ox O2 Delivery O2 Flow Rate FiO2 06/03/24 22:35 148/30 06/03/24 22:21 82 18 100 30 06/03/24 22:00 99.5 211.1 06/03/24 20:00 Mechanical Ventilator+ Total Intake and Output 06/02/24 06/02/24 06/03/24 15:00 23:00 07:00 Intake Total 845 ml 981 ml 722.25 ml Output Total 1315 ml 1575 ml Balance 845 ml -334 ml -852.75 ml medications Current Medications Medications Dose Ordered Sig/Nora Route Start Time Stop Time Status Last Admin Dose Admin Ondansetron HCl 4 mg Q4HP PRN IV 05/07/24 16:30 05/16/24 05:55 4 MG Fentanyl Citrate 250 ml @ 2.5 mls/hr Q24H IV 05/16/24 14:00 06/03/24 17:07 25 MLS/HR Midazolam HCl 50 ml @ 1 mls/hr Q24H IV 05/16/24 21:00 06/03/24 18:51 8 MLS/HR Phenylephrine HCl 250 ml @ 30 mls/hr Q8H20M IV 05/16/24 21:15 05/17/24 06:03 30 MLS/HR Acetaminophen 650 mg Q6HPRN PRN NC 05/16/24 22:30 06/03/24 05:06 650 MG Pantoprazole Sodium 40 mg DAILY IV 05/17/24 10:00 06/03/24 08:57 40 MG Amino Acids 0 ml @ 0 mls/hr PER PHARMACY IV 05/17/24 08:30 Meropenem 50 ml @ 17 mls/hr Q8HR IV 05/18/24 14:00 06/03/24 22:44 17 MLS/HR Vancomycin HCl 0 ml @ 0 mls/hr UD IV 05/18/24 07:45 Metoprolol Tartrate 1.25 mg Q6HPRN PRN IV 05/18/24 16:00 05/18/24 16:17 1.25 MG Norepinephrine Bitartrate 32 mg/ Sodium Chloride 250 ml @ 0.938 mls/ hr Q24H IV 05/18/24 16:00 05/28/24 09:55 0.938 MLS/HR Amiodarone HCl 250 ml @ 16.667 mls/ hr Q15H IV 05/18/24 22:30 05/20/24 20:59 16.667 MLS/HR Potassium Chloride 100 ml @ 50 mls/hr Q2H IV 05/22/24 12:30 05/22/24 16:29 Cancel Diagnostic Test (Pha) 1 strip Q6HR 05/24/24 12:00 06/03/24 17:03 1 STRIP Insulin Human Regular FOLLOW SLIDING SCALE Q6HR SC 05/24/24 12:00 06/03/24 17:04 2 UNITS Dextrose 50 ml UD IV 05/24/24 12:00 Dexmedetomidine HCl 400 mcg/ Dextrose 100 ml @ 3.17 mls/hr Q24H IV 05/28/24 20:45 Hydralazine HCl 10 mg Q6HP PRN IV 05/30/24 16:15 06/03/24 04:02 10 MG Vancomycin HCl 200 ml @ 200 mls/hr DAILY@1500 IV 05/31/24 15:00 06/03/24 14:41 200 MLS/HR Enoxaparin Sodium 70 mg Q12HR SC 06/01/24 22:00 06/03/24 22:45 70 MG Labetalol HCl 10 mg Q2HPRN PRN IV 06/02/24 07:45 06/02/24 08:44 10 MG Micafungin Sodium 100 mg/Sodium Chloride 100 ml @ 100 mls/hr DAILY IV 06/03/24 10:00 06/03/24 08:57 100 MLS/HR Fat Emulsion Intravenous 100 ml/Sodium Acetate 10 meq/Sodium Phosphate 20 meq/ Potassium Acetate 10 meq/Magnesium Sulfate 20 meq/ Multivitamins 10 ml/Chromium/ Copper/Manganese/ Zinc 1 ml/Insulin Human Regular 18 units/Amino Acids/ Dextrose/Purified Water 1,581.18 ml @ 66 mls/hr [id number] IV 06/03/24 20:00 06/04/24 19:59 06/03/24 20:57 66 MLS/HR objective Gen.: Patient lying in bed in medical ICU. Sedated, intubated on mechanical ventilator. Head: Normocephalic, atraumatic. Eyes: PERRLA. Ears: Normal external anatomy. Throat: Endotracheal tube and orogastric tube in place. Neck: Supple, trachea midline. Chest: Transmitted breath sounds bilaterally. Decreased air entry bilaterally. No wheezing. Bibasilar crackles. Cardio vascular: Positive S1, positive S2. Regular rate and rhythm. Abdomen: Positive bowel sounds in all 4 quadrants. Soft, nontender, nondistended. : Muhammad in place. Normal external genitalia. Rectal: Deferred Skin: Warm, dry. Intact. Extremities: 2+ radial pulses bilaterally. No lower extremity edema. Neuro: Sedated. laboratory and microbiology Laboratory Tests 06/03/24 04:30 Test 06/03/24 04:30 Range/Units Serum Glucose 127 H 74-106 mg/dL Assessment/Plan Impression: Acute hypoxic respiratory failure On mechanical ventilator Abdominal pain due to recent robotic surgery hysterectomy and salpingo- oophorectomy History of breast cancer with bilateral mastectomies History of bowel surgery and ileostomy Anemia due to hemorrhage on hemodilution Shock Chronic pain syndrome Anemia Atrial fibrillation with RVR Bowel perforation with repeat exploratory laparotomy with ileostomy creation Events: Remains on vent support ABG reviewed. Alkalemia due to resp alkalosis. US Venous Doppler of RUE: Non-occlusive thrombus in Right axillary vein and brachial vein. Occlusive thrombus in right cephalic vein. On Lovenox, therapeutic. On assist control with a respiratory rate of 18, tidal volume 450, PEEP of 5, FiO2 of 30%. CPAP today - tolerated Has not tolerated taper of sedation When we taper sedation, patient becomes tachypneic and tachycardic. On Versed, fentanyl TPN for nutritional support. Monitor EVARISTO drain Continue antibiotics ID has been consulted. F/u wound culture results. Surgery recommendations appreciated. Patient remains on sedation with fentanyl and Versed drips. Monitor renal function Monitor hemoglobin closely. Transfuse if less than 7.0 grams/deciliter. Poor prognosis Consider Trach/PEG as means of liberation from mechanical ventilator. ABG reviewed - alkalemia due to respiratory alkalosis. Chest x-ray imaging report reviewed, stable. Devices in place. Mild pulmonary vascular congestion. No pleural effusion or pneumothorax. Rest of plan as outlined below. Plan: s/p intubation on mechanical ventilator CXR image and report reviewed. Devices in place. Pulmonary vascular congestion. Right bibasilar airspace opacities. No pleural effusion or pneumothorax. ABG reviewed. On assist control with a respiratory rate of 18, tidal volume 450, PEEP of 5, FiO2 of 30%. Titrate FIO2 to keep O2 saturation above 92%. VAP bundle Daily ABG and CXR while intubated. Sedate for ventilatory synchrony Continue antibiotics. F/u cultures. Monitor hemoglobin Transfuse if less than 7.0 grams/deciliter Monitor renal function due to Acute kidney injury. Monitor electrolytes. Supplement as necessary. Surgery recommendations appreciated. Nutritional support. On TPN Accucheks, ISS. GI/DVT prophylaxis. Condition: Critical Prognosis: Poor given multiple comorbidities. Rest of plan per hospitalist and other consultants. A total of 35 minutes of critical care time was spent reviewing the patient record, examining the patient, making a diagnostic and therapeutic plan, discussing this plan with the medical personnel, following up on diagnostic studies and following the patient for clinical stability excluding any and all procedures. At least 50% of this time was spent in direct, [id number] contact. Thank you Dr Reid for allowing me to participate in this patient's care. Further recommendations will depend on patient's clinical course. Please do not hesitate to contact me if you have any questions or concerns. This medical document was created using an electronic medical record system with [employer] dictation system. Although this document has been carefully reviewed, there may still be some phonetic and typographical errors. These areas are purely typographical due to imperfections of the software programs, and do not reflect any compromise in the patient's medical care. Dietary Evaluation Review Comments: 1) Advance pt diet when medically feasible to a 2gmNa diet modified per [employer] recommendations 2) Continue current plan of care Expected Outcomes/Goals: 1) Pt diet to advance 2) F/U in 2-3 days Plan discussed with: Other (YASH Briones) Critical Care Time(min): 35 RG LEONE MD Jun 03, 2024 23:04
[2024-06-04] VITALS (111 sets, daily range): BP systolic 74–183; BP diastolic 24–83; PULSE 63–115; RESP 8–24; TEMP 97–100.6; O2SAT 99–100
--- NOTE | 2024-06-04 00:03 | DVHPN2 ---
Progress Note - Dictate Date Seen: Jun 03, 2024 Has the PT tested + for MRSA If YES, has PT been informed?: No Medical Necessity Reason Pt with a Central, PICC or Fol: Yes The following are medically ne: Muhammad Catheter Reason for muhammad catheter: Strict I&O Subjective Ms. Barrera is a 68 years old right-handed female with a history of hypertension, anemia, breast cancer, she was admitted to the [facility] on 05/07/2024 for scheduled hysterectomy and oophorectomy. Post surgically, she woke up with left-sided weakness, and MRI showed multiple stroke in the right MCA territory. During the hospital stay, she developed fall perforation, and she went through abdominal surgery on 05/16/2024 Because of ongoing intraperitoneal sepsis/peritonitis, the patient went through exploratory laparotomy on 05/24/2024 I have seen and examined the patient in the ICU, I have discussed with her nurse. She is responsive to painful stimuli, She keeps spiking temperature The drainage looks cloudy Right pupil slightly bigger, especially when they are dilated Fentanyl 250 mcg/hour, Versed 8 mg/hour CBC, 05/16/2024: Metabolic acidosis, 05/17/2024: Metabolic acidosis, 05/18/2024: Metabolic acidosis URINALYSIS, 05/11/2024: WBC: 2, URINE LEUKOCYTE ESTERASE: NEGATIVE WBC/HB/PLT/MCV, 05/04: 5.1/10.7/119/98.3, 05/17/2024: 20.4/8.5/205/86.9 05/19/2024: 12.2/11.1/125/86.2, 05/20/2024: 8.1/10.5/113/86.1, 05/21/2024: 6.6/10.5/106/86.5, 05/26/2024: 9.6/9.2/184/93.8, 05/28/2024: 7.5/7/223/89.6, 05/29/24: 6.8/5.9/251/88.1, 05/30/2024: 7.4/7.7/268/86.6 PT/INR/FTT, 05/16/2024: 17.4/1.71/34.2 K, 05/09/2024: 3.9, 05/10/24:3.1, 05/12/2024: 3.4, 05/16/2024: 2.8 Lactic acid, 05/15/2024: 1.6, 05/16/2024: 1.5 HCO3, 05/23/2024: 35 Bun.Cr, 05/23/2024: 37/0.75 LIVER FUNCTION TESTS, 05/12/2024: UNREMARKABLE, 05/16/2024: Unremarkable TBI/AST/ALT/AP, 05/18/2024: 1.2//, 05/19/2024: 3.1/04/23/2067, 05/23/2024: 3.1/48/35/170, 05/29/2024: 2.3///117 TG/HDL/LDL/HDL, 05/12/2024: 196/134/75/23 TSH, 05/12/2024: 2.01 Echocardiogram 05/14/2024: lvef 65% by visual estimate mild mitral regurg RV enlarged mild left atrium enlarged mild Extremity venous study, 06/01/2024: No left upper extremity DVT. Right internal jugular vein and subclavian vein are not visualized secondary to patient positioning. Nonocclusive thrombus is seen in the right axillary vein and brachial vein. Occlusive thrombus is present at the right cephalic vein. Carotid Doppler, 05/11/2024: 1. Occlusion of the right proximal ICA. 2. Greater than 50% stenosis of the right proximal ECA. 3. Greater than 50% stenosis of the left proximal ICA CT head, 05/11/2024: 1. Chronic lacunar infarct in right centrum semiovale. 2. Chronic periventricular ischemic changes. 3. Cerebral and cerebellar atrophy, likely age-related. 4. Advised further evaluation with MRI brain without contrast if clinically indicated CT abdomen/pelvis, 05/15/2024: Small bowel obstruction with evidence of perforation including free intraperitoneal fluid and air. Extensive subcutaneous emphysema likely secondary to bowel perforation CT abdomen/pelvis, 05/16/2024: 1. Sequelae of recent postsurgical changes as described above. Correlate with surgical history. 2. Pneumoperitoneum and free fluid in the abdomen and pelvis. 3. Large collection containing fluid and gas, predominantly in the right hemiabdomen. There is GI contrast extending into this collection from an adjacent small bowel loop. There is a component of this collection extending adjacent to the anterior superior aspect of the liver. 4. Moderate right hydronephrosis and hydroureter. The distal right ureter appears to be compressed by the large fluid collection in the right hemiabdomen. No obstructing calculus. 5. Dilated small bowel loops in the left hemiabdomen with suspected small-bowel obstruction. 6. Prominent subcutaneous edema in the ventral abdominal wall and extending caudally into the inguinal regions bilaterally, peroneal region, and anterior aspect of the left thigh. 7. Small bilateral pleural effusions with overlying atelectasis. 8. Additional findings as detailed above. CT abdomen, 05/23/2024: Postsurgical changes of the ventral abdomen with interval improvement in the diffuse soft tissue edema and ventral abdominal, pelvis and upper thigh subcutaneous emphysema. Interval significant decrease in size of the loculated collection within the right hemiabdomen and pelvis with small residual. Interval placement of drainage catheters terminating over the left upper abdominal quadrant and left hemipelvis as detailed above. Interval development of small to moderate ascites. Wall thickening of fluid-filled nondistended small bowel loops of the anterior mid to lower abdomen which may be from the surrounding ascites versus enteritis. Additional findings as above CT abdomen staff pelvis, 05/30/2024: 1. Radiodense contrast in the mid abdomen associated with surgical sutures. It is unclear whether this is in bowel or represents a bowel leak. Clinical correlation and continued follow-up is recommended. 2. Right pelvic, anterior abdominal wall and left abdomen drainage catheters in place. No definite abscess identified. 3. Extensive post postsurgical changes of the bowel. 4. Small amount of abdominal and pelvic ascities. 5. Small to moderate right pleural effusion. CTA neck, head, 05/14/24: 1. Complete occlusion of the right cervical internal carotid artery. There may be trickle flow in distal right cervical ICA. 2. Poor flow in the right intracranial ICA likely retrograde perfusion through the contralateral left side posterior circulation through the communicating arteries. 3. High-grade stenosis at the left carotid bulb with at least 70-80% stenosis. Moderate short-segment stenosis in the left proximal ICA with at least 60% stenosis. MRI HEAD, 05/11/2024: 1. Multiple foci of restricted diffusion in the right centrum semiovale and along the right superior frontal lobe compatible with acute to subacute infarcts. There is no evidence of acute hemorrhage or significant surrounding edema. 2. Absence of flow void in the intracranial portions of the right internal carotid artery which is likely occluded. vital signs Vital Sign Date Time Temp Pulse Resp B/P (MAP) Pulse Ox O2 Delivery O2 Flow Rate FiO2 06/03/24 22:35 148/30 06/03/24 22:21 82 18 100 30 06/03/24 22:00 99.5 211.1 06/03/24 20:00 Mechanical Ventilator+ Total Intake and Output 06/03/24 06/03/24 06/04/24 15:00 23:00 07:00 Intake Total 1080.0 ml 454 ml Output Total 1230 ml Balance 1080.0 ml -776 ml medications Current Medications Medications Dose Ordered Sig/Nora Route Start Time Stop Time Status Last Admin Dose Admin Ondansetron HCl 4 mg Q4HP PRN IV 05/07/24 16:30 05/16/24 05:55 4 MG Fentanyl Citrate 250 ml @ 2.5 mls/hr Q24H IV 05/16/24 14:00 06/03/24 17:07 25 MLS/HR Midazolam HCl 50 ml @ 1 mls/hr Q24H IV 05/16/24 21:00 06/03/24 18:51 8 MLS/HR Phenylephrine HCl 250 ml @ 30 mls/hr Q8H20M IV 05/16/24 21:15 05/17/24 06:03 30 MLS/HR Acetaminophen 650 mg Q6HPRN PRN AK 05/16/24 22:30 06/03/24 05:06 650 MG Pantoprazole Sodium 40 mg DAILY IV 05/17/24 10:00 06/03/24 08:57 40 MG Amino Acids 0 ml @ 0 mls/hr PER PHARMACY IV 05/17/24 08:30 Meropenem 50 ml @ 17 mls/hr Q8HR IV 05/18/24 14:00 06/03/24 22:44 17 MLS/HR Vancomycin HCl 0 ml @ 0 mls/hr UD IV 05/18/24 07:45 Metoprolol Tartrate 1.25 mg Q6HPRN PRN IV 05/18/24 16:00 05/18/24 16:17 1.25 MG Norepinephrine Bitartrate 32 mg/ Sodium Chloride 250 ml @ 0.938 mls/ hr Q24H IV 05/18/24 16:00 05/28/24 09:55 0.938 MLS/HR Amiodarone HCl 250 ml @ 16.667 mls/ hr Q15H IV 05/18/24 22:30 05/20/24 20:59 16.667 MLS/HR Potassium Chloride 100 ml @ 50 mls/hr Q2H IV 05/22/24 12:30 05/22/24 16:29 Cancel Diagnostic Test (Pha) 1 strip Q6HR 05/24/24 12:00 06/03/24 23:39 1 STRIP Insulin Human Regular FOLLOW SLIDING SCALE Q6HR SC 05/24/24 12:00 06/03/24 23:40 2 UNITS Dextrose 50 ml UD IV 05/24/24 12:00 Dexmedetomidine HCl 400 mcg/ Dextrose 100 ml @ 3.17 mls/hr Q24H IV 05/28/24 20:45 Hydralazine HCl 10 mg Q6HP PRN IV 05/30/24 16:15 06/03/24 04:02 10 MG Vancomycin HCl 200 ml @ 200 mls/hr DAILY@1500 IV 05/31/24 15:00 06/03/24 14:41 200 MLS/HR Enoxaparin Sodium 70 mg Q12HR SC 06/01/24 22:00 06/03/24 22:45 70 MG Labetalol HCl 10 mg Q2HPRN PRN IV 06/02/24 07:45 06/02/24 08:44 10 MG Micafungin Sodium 100 mg/Sodium Chloride 100 ml @ 100 mls/hr DAILY IV 06/03/24 10:00 06/03/24 08:57 100 MLS/HR Fat Emulsion Intravenous 100 ml/Sodium Acetate 10 meq/Sodium Phosphate 20 meq/ Potassium Acetate 10 meq/Magnesium Sulfate 20 meq/ Multivitamins 10 ml/Chromium/ Copper/Manganese/ Zinc 1 ml/Insulin Human Regular 18 units/Amino Acids/ Dextrose/Purified Water 1,581.18 ml @ 66 mls/hr [id number] IV 06/03/24 20:00 06/04/24 19:59 06/03/24 20:57 66 MLS/HR objective General: the patient is well developed and nourished. No acute distress. ABDOMEN: Status post surgery MENTAL STATUS: Subjective. CRANIAL NERVES: Pupils are round and reactivel. There are corneal reflexes and doll's eyes phenomenon. No signs of facial weakness. There are weak gagging or coughing reflexes SENSATION: No responses to pain stimuli. MOTOR: Normal tone in the upper and lower extremity. Normal muscle bulk. No fasciculations. No spontaneous movement. REFLEXES: Deep tendon reflexes are symmetrical. No pathological reflexes. CEREBELLAR/COORDINATION: Deferred GAIT/STATION: deferred. laboratory and microbiology Laboratory Tests 06/03/24 04:30 Test 06/03/24 04:30 Range/Units Serum Glucose 127 H 74-106 mg/dL Problem List Pelvic prolapse, can count urethrovesical junction, surgery repair on 05/07/2024 (Robotic supracervical hysterectomy bilateral salpingo-oophorectomy colposcopic pexy cystocele repair urethral sling partial vaginectomy) Bowel obstruction with perforation, intra-abdominal abscess, dense at [place], status post surgery 05/16/2024 Sepsis/septic shock Metabolic encephalopathy Acute right MCA territory multiple strokes Left hemiparesis Right ICA occlusion Left ICA severe stenosis Anemia, with unstable H&H Status post oophorectomy, hysterectomy Anisocoria, uncertain clinical significance DVT Assessment/Plan Monitoring Supportive treatment ICU care Stabilize vitals/pressor drip Respiratory support/vent management IV antibiotics Oxygen Lipitor 20 mg daily (NPO) TPN Up to chair Physical therapy Further address bilateral carotid stenosis CLARA on discharge Surgery on case Okay to use Lovenox for DVT from neurologic point of view More recommendation per clinical course This medical document was created using an electronic medical record system with [employer] dictation system. Although this document has been carefully reviewed, there may still be some phonetic and typographical errors. These areas are purely typographical due to imperfections of the software programs, and do not reflect any compromise in the patient's medical care Prognosis guarded Dietary Evaluation Review Comments: 1) Advance pt diet when medically feasible to a 2gmNa diet modified per LAST TRIMMER recommendations 2) Continue current plan of care Expected Outcomes/Goals: 1) Pt diet to advance 2) F/U in 2-3 days Plan discussed with: Other BRYAN FLORES MD Jun 04, 2024 00:02
[2024-06-04 04:10] LABS: White Blood Cell 9.3 10^3/uL (4.4-10.8)
[2024-06-04 04:12] LABS: Mean Corpuscular Hemoglobin 30.1 pg (28.0-32.0); Mean Corpuscular Hgb Conc. 34.4 g/dL (32.0-36.0); Mean Corpuscular Volume 87.5 fL (80.0-100.0); Platelet Count (auto) 277 10^3/uL (140-450); Red Blood Cells 2.28 10^6/uL (4.0-5.20); Red Cell Distribution Width 14.7 % (11.8-14.3)
[2024-06-04 04:19] LABS: Alanine Aminotransferase 22 U/L (7-40); Albumin 2.6 g/dL (3.2-4.8); Alkaline Phosphatase 143 U/L (46-116); Anion Gap 5 (5-15); Aspartate Aminotransferase 24 U/L (13-40); BUN/Creatinine Ratio 57.4 (10.0-20.0); Blood Urea Nitrogen 31 mg/dL (9-23); Calcium 9.5 mg/dL (8.7-10.4); Carbon Dioxide 25 mmol/L (20-31); Chloride 105 mmol/L (98-107); Glucose 118 mg/dL (74-106); Magnesium 2.3 mg/dL (1.6-2.6); Magnesium,Therapeutic 2.29 mg/dL (4.0-7.1); Phosphorus 3.9 mg/dL (2.4-5.1); Potassium 3.7 mmol/L (3.5-5.1); Sodium 135 mmol/L (136-145)
[2024-06-04 04:20] LABS: Bilirubin, Total 1.5 mg/dL (0.2-1.0); Total Protein 5.7 g/dL (5.7-8.2)
[2024-06-04 04:47] LABS: Basophils % (manual) 0 (0.0-2.0); Blast Cells 0; Hemoglobin 6.9 g/dL (12.2-16.2); Metamyelocytes % 0; Promyelocytes % 0; Reactive Lymphocytes 0
--- NOTE | 2024-06-04 05:44 | DVH ---
CHEST RADIOGRAPH Indication:ROUTINE Technique: Single frontal view of the chest was obtained COMPARISON: XY CHEST PORTABLE on DOS: 06/03/24, XY CHEST PORTABLE on DOS: 05/31/24, XY CHEST PORTABLE on DOS: 05/30/24, XY CHEST PORTABLE on DOS: 06/03/24 FINDINGS: Lines and Tubes: Endotracheal tube, enteric catheter, right central venous catheter and right chest p ort in satisfactory position. Lungs: Mild congestion Pleura: No effusion. No pneumothorax. Cardiomediastinal contours: Unremarkable Bones: Unremarkable IMPRESSION: Lines and tubes in satisfactory position. No significant interval change.
[2024-06-04 06:43] LABS: Band Neutrophils % (manual) 1; Eosinophils % (manual) 1 (0-7); Lymphocytes % (manual) 5 (10.0-50.0); Monocytes % (manual) 9 (0-12); Myelocytes % 3; Platelet Estimate Adequate
[2024-06-04 07:09] LABS: Base Excess -0.5 mmol/L (-2.0-3.0)
--- NOTE | 2024-06-04 10:51 | DVHPN2 ---
Progress Note - Dictate Date Seen: Jun 04, 2024 Has the PT tested + for MRSA If YES, has PT been informed?: No Medical Necessity Reason Pt with a Central, PICC or Fol: Yes The following are medically ne: Muhammad Catheter Reason for muhammad catheter: Strict I&O Subjective Ms. Barrera is a 68 years old right-handed female with a history of hypertension, anemia, breast cancer, she was admitted to the [facility] on 05/07/2024 for scheduled hysterectomy and oophorectomy. Post surgically, she woke up with left-sided weakness, and MRI showed multiple stroke in the right MCA territory. During the hospital stay, she developed fall perforation, and she went through abdominal surgery on 05/16/2024 Because of ongoing intraperitoneal sepsis/peritonitis, the patient went through exploratory laparotomy on 05/24/2024 I have seen and examined the patient in the ICU, I have discussed with her nurse. She is responsive to light touch She keeps spiking temperature Right pupil slightly bigger, both reactive to light Fentanyl 250 mcg/hour, Versed 8 mg/hour CBC, 05/16/2024: Metabolic acidosis, 05/17/2024: Metabolic acidosis, 05/18/2024: Metabolic acidosis URINALYSIS, 05/11/2024: WBC: 2, URINE LEUKOCYTE ESTERASE: NEGATIVE WBC/HB/PLT/MCV, 05/04: 5.1/10.7/119/98.3, 05/17/2024: 20.4/8.5/205/86.9 05/19/2024: 12.2/11.1/125/86.2, 05/20/2024: 8.1/10.5/113/86.1, 05/21/2024: 6.6/10.5/106/86.5, 05/26/2024: 9.6/9.2/184/93.8, 05/28/2024: 7.5/7/223/89.6, 05/29/24: 6.8/5.9/251/88.1, 05/30/2024: 7.4/7.7/268/86.6 PT/INR/FTT, 05/16/2024: 17.4/1.71/34.2 K, 05/09/2024: 3.9, 05/10/24:3.1, 05/12/2024: 3.4, 05/16/2024: 2.8 Lactic acid, 05/15/2024: 1.6, 05/16/2024: 1.5 HCO3, 05/23/2024: 35 Bun.Cr, 05/23/2024: 37/0.75 LIVER FUNCTION TESTS, 05/12/2024: UNREMARKABLE, 05/16/2024: Unremarkable TBI/AST/ALT/AP, 05/18/2024: 1.2//, 05/19/2024: 3.1/04/23/2067, 05/23/2024: 3.1/48/35/170, 05/29/2024: 2.3///117 TG/HDL/LDL/HDL, 05/12/2024: 196/134/75/23 TSH, 05/12/2024: 2.01 Echocardiogram 05/14/2024: lvef 65% by visual estimate mild mitral regurg RV enlarged mild left atrium enlarged mild Extremity venous study, 06/01/2024: No left upper extremity DVT. Right internal jugular vein and subclavian vein are not visualized secondary to patient positioning. Nonocclusive thrombus is seen in the right axillary vein and brachial vein. Occlusive thrombus is present at the right cephalic vein. Carotid Doppler, 05/11/2024: 1. Occlusion of the right proximal ICA. 2. Greater than 50% stenosis of the right proximal ECA. 3. Greater than 50% stenosis of the left proximal ICA CT head, 05/11/2024: 1. Chronic lacunar infarct in right centrum semiovale. 2. Chronic periventricular ischemic changes. 3. Cerebral and cerebellar atrophy, likely age-related. 4. Advised further evaluation with MRI brain without contrast if clinically indicated CT abdomen/pelvis, 05/15/2024: Small bowel obstruction with evidence of perforation including free intraperitoneal fluid and air. Extensive subcutaneous emphysema likely secondary to bowel perforation CT abdomen/pelvis, 05/16/2024: 1. Sequelae of recent postsurgical changes as described above. Correlate with surgical history. 2. Pneumoperitoneum and free fluid in the abdomen and pelvis. 3. Large collection containing fluid and gas, predominantly in the right hemiabdomen. There is GI contrast extending into this collection from an adjacent small bowel loop. There is a component of this collection extending adjacent to the anterior superior aspect of the liver. 4. Moderate right hydronephrosis and hydroureter. The distal right ureter appears to be compressed by the large fluid collection in the right hemiabdomen. No obstructing calculus. 5. Dilated small bowel loops in the left hemiabdomen with suspected small-bowel obstruction. 6. Prominent subcutaneous edema in the ventral abdominal wall and extending caudally into the inguinal regions bilaterally, peroneal region, and anterior aspect of the left thigh. 7. Small bilateral pleural effusions with overlying atelectasis. 8. Additional findings as detailed above. CT abdomen, 05/23/2024: Postsurgical changes of the ventral abdomen with interval improvement in the diffuse soft tissue edema and ventral abdominal, pelvis and upper thigh subcutaneous emphysema. Interval significant decrease in size of the loculated collection within the right hemiabdomen and pelvis with small residual. Interval placement of drainage catheters terminating over the left upper abdominal quadrant and left hemipelvis as detailed above. Interval development of small to moderate ascites. Wall thickening of fluid-filled nondistended small bowel loops of the anterior mid to lower abdomen which may be from the surrounding ascites versus enteritis. Additional findings as above CT abdomen staff pelvis, 05/30/2024: 1. Radiodense contrast in the mid abdomen associated with surgical sutures. It is unclear whether this is in bowel or represents a bowel leak. Clinical correlation and continued follow-up is recommended. 2. Right pelvic, anterior abdominal wall and left abdomen drainage catheters in place. No definite abscess identified. 3. Extensive post postsurgical changes of the bowel. 4. Small amount of abdominal and pelvic ascities. 5. Small to moderate right pleural effusion. CTA neck, head, 05/14/24: 1. Complete occlusion of the right cervical internal carotid artery. There may be trickle flow in distal right cervical ICA. 2. Poor flow in the right intracranial ICA likely retrograde perfusion through the contralateral left side posterior circulation through the communicating arteries. 3. High-grade stenosis at the left carotid bulb with at least 70-80% stenosis. Moderate short-segment stenosis in the left proximal ICA with at least 60% stenosis. MRI HEAD, 05/11/2024: 1. Multiple foci of restricted diffusion in the right centrum semiovale and along the right superior frontal lobe compatible with acute to subacute infarcts. There is no evidence of acute hemorrhage or significant surrounding edema. 2. Absence of flow void in the intracranial portions of the right internal carotid artery which is likely occluded. vital signs Vital Sign Date Time Temp Pulse Resp B/P (MAP) Pulse Ox O2 Delivery O2 Flow Rate FiO2 06/04/24 10:26 101 23 148/46 (80) 100 30 06/04/24 10:00 Mechanical Ventilator+ 06/04/24 09:35 100.4 Total Intake and Output 06/03/24 06/03/24 06/04/24 15:00 23:00 07:00 Intake Total 1080.0 ml 1081 ml 753.5 ml Output Total 1230 ml 1255 ml Balance 1080.0 ml -149 ml -501.5 ml medications Current Medications Medications Dose Ordered Sig/Nora Route Start Time Stop Time Status Last Admin Dose Admin Ondansetron HCl 4 mg Q4HP PRN IV 05/07/24 16:30 05/16/24 05:55 4 MG Fentanyl Citrate 250 ml @ 2.5 mls/hr Q24H IV 05/16/24 14:00 06/04/24 02:46 27.5 MLS/HR Midazolam HCl 50 ml @ 1 mls/hr Q24H IV 05/16/24 21:00 06/04/24 06:55 9 MLS/HR Phenylephrine HCl 250 ml @ 30 mls/hr Q8H20M IV 05/16/24 21:15 05/17/24 06:03 30 MLS/HR Acetaminophen 650 mg Q6HPRN PRN NC 05/16/24 22:30 06/04/24 09:35 650 MG Pantoprazole Sodium 40 mg DAILY IV 05/17/24 10:00 06/04/24 09:35 40 MG Amino Acids 0 ml @ 0 mls/hr PER PHARMACY IV 05/17/24 08:30 Meropenem 50 ml @ 17 mls/hr Q8HR IV 05/18/24 14:00 06/04/24 05:44 17 MLS/HR Vancomycin HCl 0 ml @ 0 mls/hr UD IV 05/18/24 07:45 Metoprolol Tartrate 1.25 mg Q6HPRN PRN IV 05/18/24 16:00 05/18/24 16:17 1.25 MG Norepinephrine Bitartrate 32 mg/ Sodium Chloride 250 ml @ 0.938 mls/ hr Q24H IV 05/18/24 16:00 05/28/24 09:55 0.938 MLS/HR Amiodarone HCl 250 ml @ 16.667 mls/ hr Q15H IV 05/18/24 22:30 05/20/24 20:59 16.667 MLS/HR Potassium Chloride 100 ml @ 50 mls/hr Q2H IV 05/22/24 12:30 05/22/24 16:29 Cancel Diagnostic Test (Pha) 1 strip Q6HR 05/24/24 12:00 06/04/24 05:44 1 STRIP Insulin Human Regular FOLLOW SLIDING SCALE Q6HR SC 05/24/24 12:00 06/03/24 23:40 2 UNITS Dextrose 50 ml UD IV 05/24/24 12:00 Dexmedetomidine HCl 400 mcg/ Dextrose 100 ml @ 3.17 mls/hr Q24H IV 05/28/24 20:45 Hydralazine HCl 10 mg Q6HP PRN IV 05/30/24 16:15 06/03/24 04:02 10 MG Vancomycin HCl 200 ml @ 200 mls/hr DAILY@1500 IV 05/31/24 15:00 06/03/24 14:41 200 MLS/HR Enoxaparin Sodium 70 mg Q12HR SC 06/01/24 22:00 06/04/24 09:36 70 MG Labetalol HCl 10 mg Q2HPRN PRN IV 06/02/24 07:45 06/02/24 08:44 10 MG Micafungin Sodium 100 mg/Sodium Chloride 100 ml @ 100 mls/hr DAILY IV 06/03/24 10:00 06/04/24 09:54 100 MLS/HR Fat Emulsion Intravenous 100 ml/Sodium Acetate 10 meq/Sodium Phosphate 20 meq/ Potassium Acetate 10 meq/Magnesium Sulfate 20 meq/ Multivitamins 10 ml/Chromium/ Copper/Manganese/ Zinc 1 ml/Insulin Human Regular 18 units/Amino Acids/ Dextrose/Purified Water 1,581.18 ml @ 66 mls/hr [id number] IV 06/03/24 20:00 06/04/24 19:59 06/03/24 20:57 66 MLS/HR objective General: the patient is well developed and nourished. No acute distress. ABDOMEN: Status post surgery MENTAL STATUS: Subjective. CRANIAL NERVES: Pupils are round and reactivel. There are corneal reflexes and doll's eyes phenomenon. No signs of facial weakness. There are weak gagging or coughing reflexes SENSATION: No responses to pain stimuli. MOTOR: Normal tone in the upper and lower extremity. Normal muscle bulk. No fasciculations. No spontaneous movement. REFLEXES: Deep tendon reflexes are symmetrical. No pathological reflexes. CEREBELLAR/COORDINATION: Deferred GAIT/STATION: deferred. laboratory and microbiology Laboratory Tests 06/04/24 03:00 Test 06/04/24 03:00 Range/Units Serum Glucose 118 H 74-106 mg/dL Problem List Pelvic prolapse, can count urethrovesical junction, surgery repair on 05/07/2024 (Robotic supracervical hysterectomy bilateral salpingo-oophorectomy colposcopic pexy cystocele repair urethral sling partial vaginectomy) Bowel obstruction with perforation, intra-abdominal abscess, dense at [place], status post surgery 05/16/2024 Sepsis/septic shock Metabolic encephalopathy Acute right MCA territory multiple strokes Left hemiparesis Right ICA occlusion Left ICA severe stenosis Anemia, with unstable H&H Status post oophorectomy, hysterectomy Anisocoria, uncertain clinical significance DVT Assessment/Plan Monitoring Supportive treatment ICU care Stabilize vitals/pressor drip Respiratory support/vent management IV antibiotics Oxygen Lipitor 20 mg daily (NPO) TPN Up to chair Physical therapy Further address bilateral carotid stenosis CLARA on discharge Surgery on case Okay to use Lovenox for DVT from neurologic point of view More recommendation per clinical course This medical document was created using an electronic medical record system with [employer] dictation system. Although this document has been carefully reviewed, there may still be some phonetic and typographical errors. These areas are purely typographical due to imperfections of the software programs, and do not reflect any compromise in the patient's medical care Prognosis guarded Dietary Evaluation Review Comments: 1) Advance pt diet when medically feasible to a 2gmNa diet modified per DIRECTOR OF HOUSING recommendations 2) Continue current plan of care Expected Outcomes/Goals: 1) Pt diet to advance 2) F/U in 2-3 days Plan discussed with: Other BRYAN FLORES MD Jun 04, 2024 10:51
--- NOTE | 2024-06-04 13:51 | DVHPN2 ---
Subjective Intubated and sedated Still +significant drainage Temp: 100.4 Reviewed: Care Plan, H&P, Labs, Medications, Previous Orders, Radiology Changes from previous H/P or p: Changes General: Per HPI Eyes: No Pain, No Vision change, No Conjunctivae inflammation, No Eyelid inflammation, No Other, No Redness ENT: No Ear pain, No Ear discharge, No Nose pain, No Nose discharge, No Nose congestion, No Mouth pain, No Mouth swelling, No Throat pain, No Throat swelling, No Other Cardiovascular: No Chest Pain, No Palpitations, No Orthopnea, No Paroxysmal Noc. Dyspnea, No Edema, No Lt Headedness, No Other Respiratory: No Cough, No Dry, No Shortness of breath, No SOB with excertion, No Wheezing, No Hemoptysis, No Pleuritic Pain, No Sputum, No Other Gastrointestinal: Nausea Genitourinary: No Dysuria, No Frequency, No Incontinence, No Hematuria, No Retention, No Other Musculoskeletal: No other, No neck pain, No shoulder pain, No arm pain, No back pain, No hand pain, No leg pain, No foot pain Skin: No Rash, No Lesions, No Jaundice, No Bruising, No Other Objective Vitals Vital Signs Date Time Temp Pulse Resp B/P (MAP) Pulse Ox O2 Delivery O2 Flow Rate FiO2 06/04/24 13:31 98.2 86 18 131/27 98.2 06/04/24 12:00 100 Mechanical Ventilator+ 30 30 Intake/Output Intake and Output 06/04/24 07:00 Intake Total 2914.5 ml Output Total 2485 ml Balance 429.5 ml Intake Oral 0 ml IV Total 2914.5 ml Output Urine Total 2050 ml Stool Total 125 ml Gastric Drainage Total 225 ml Drainage Total 65 ml Other 20 ml General Appearance: moderate distress, Other (Intubated and sedated) HEENT: Atraumatic, PERRLA, Other (Pupils equal, 4 mm, reactive to light to 3 mm) Lungs: Clear to auscultation, Normal air movement, Other (Mechanical ventilation) Cardiovascular: Regular rate, Normal S1, Normal S2 Abdomen: Other (Ileostomy with drainage. 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) Skin: Dry, Intact, Other (Surgical incision dry and intact) Psych/Mental Status: Mental status NL, Mood NL Medications Current Medications Medications Dose Ordered Sig/Nora Route Start Time Stop Time Status Last Admin Dose Admin Ondansetron HCl 4 mg Q4HP PRN IV 05/07/24 16:30 05/16/24 05:55 4 MG Fentanyl Citrate 250 ml @ 2.5 mls/hr Q24H IV 05/16/24 14:00 06/04/24 12:49 25 MLS/HR Midazolam HCl 50 ml @ 1 mls/hr Q24H IV 05/16/24 21:00 06/04/24 12:38 7 MLS/HR Phenylephrine HCl 250 ml @ 30 mls/hr Q8H20M IV 05/16/24 21:15 05/17/24 06:03 30 MLS/HR Acetaminophen 650 mg Q6HPRN PRN TX 05/16/24 22:30 06/04/24 09:35 650 MG Pantoprazole Sodium 40 mg DAILY IV 05/17/24 10:00 06/04/24 09:35 40 MG Amino Acids 0 ml @ 0 mls/hr PER PHARMACY IV 05/17/24 08:30 Meropenem 50 ml @ 17 mls/hr Q8HR IV 05/18/24 14:00 06/04/24 05:44 17 MLS/HR Vancomycin HCl 0 ml @ 0 mls/hr UD IV 05/18/24 07:45 Metoprolol Tartrate 1.25 mg Q6HPRN PRN IV 05/18/24 16:00 05/18/24 16:17 1.25 MG Norepinephrine Bitartrate 32 mg/ Sodium Chloride 250 ml @ 0.938 mls/ hr Q24H IV 05/18/24 16:00 06/04/24 12:06 0.938 MLS/HR Amiodarone HCl 250 ml @ 16.667 mls/ hr Q15H IV 05/18/24 22:30 05/20/24 20:59 16.667 MLS/HR Potassium Chloride 100 ml @ 50 mls/hr Q2H IV 05/22/24 12:30 05/22/24 16:29 Cancel Diagnostic Test (Pha) 1 strip Q6HR 05/24/24 12:00 06/04/24 11:39 1 STRIP Insulin Human Regular FOLLOW SLIDING SCALE Q6HR SC 05/24/24 12:00 06/04/24 11:41 2 UNITS Dextrose 50 ml UD IV 05/24/24 12:00 Dexmedetomidine HCl 400 mcg/ Dextrose 100 ml @ 3.17 mls/hr Q24H IV 05/28/24 20:45 Hydralazine HCl 10 mg Q6HP PRN IV 05/30/24 16:15 06/03/24 04:02 10 MG Vancomycin HCl 200 ml @ 200 mls/hr DAILY@1500 IV 05/31/24 15:00 06/03/24 14:41 200 MLS/HR Enoxaparin Sodium 70 mg Q12HR SC 06/01/24 22:00 06/04/24 09:36 70 MG Labetalol HCl 10 mg Q2HPRN PRN IV 06/02/24 07:45 06/02/24 08:44 10 MG Micafungin Sodium 100 mg/Sodium Chloride 100 ml @ 100 mls/hr DAILY IV 06/03/24 10:00 06/04/24 09:54 100 MLS/HR Fat Emulsion Intravenous 100 ml/Sodium Acetate 10 meq/Sodium Phosphate 20 meq/ Potassium Acetate 10 meq/Magnesium Sulfate 20 meq/ Multivitamins 10 ml/Chromium/ Copper/Manganese/ Zinc 1 ml/Insulin Human Regular 18 units/Amino Acids/ Dextrose/Purified Water 1,581.18 ml @ 66 mls/hr [id number] IV 06/03/24 20:00 06/04/24 19:59 06/03/24 20:57 66 MLS/HR Fat Emulsion Intravenous 50 ml/ Sodium Acetate 20 meq/Sodium Phosphate 10 meq/ Potassium Chloride 40 meq/ Magnesium Sulfate 16 meq/ Multivitamins 10 ml/Chromium/ Copper/Manganese/ Zinc 1 ml/Insulin Human Regular 18 units/Amino Acids/ Dextrose/Purified Water 1,647.68 ml @ 68 mls/hr [id number] IV 06/04/24 20:00 06/05/24 19:59 Laboratory Results Laboratory Tests 06/04/24 03:00 Chemistry Test 06/04/24 03:00 Albumin 2.6 g/dL (3.2-4.8) L Calcium Level 9.5 mg/dL (8.7-10.4) Magnesium Level 2.3 mg/dL (1.6-2.6) Phosphorus Level 3.9 mg/dL (2.4-5.1) Total Protein 5.7 g/dL (5.7-8.2) LFT Test 06/04/24 03:00 Alanine Aminotransferase (ALT) 22 U/L (7-40) Alkaline Phosphatase 143 U/L (46-116) H Aspartate Amino Transferase (AST) 24 U/L (13-40) Total Bilirubin 1.5 mg/dL (0.2-1.0) H Urinalysis Test 05/11/24 16:18 Urine Color Yellow (Yellow) Urine Clarity Clear (Clear) Urine pH 6.0 (5.0-9.0) Urine Specific [place] 1.020 (1.001-1.035) Urine Protein 1+ (Negative) H Urine Ketones 4+ (Negative) H Urine Blood Trace /uL (Negative) H Urine Nitrite Negative (Negative) Urine Bilirubin Negative (Negative) Urine Urobilinogen Normal mg/dL (Negative) Urine Leukocyte Esterase Negative /uL (Negative) Urine RBC 2 /hpf (0 - 4) Urine WBC 2 /hpf (0 - 5) Urine Squamous Epithelial Cells Few /hpf (<5) Urine Bacteria None seen /hpf (None Seen) Urine Mucus Few (None Seen) Urine Glucose Normal mg/dL (Normal) Blood Gas Results Test 06/04/24 06:55 Arterial Blood pH 7.452 (7.350-7.450) FiO2 % 30.0 Microbiology Microbiology Date/Time Source Procedure Growth Status 06/02/24 11:02 Blood Blood Culture - Preliminary NO GROWTH AFTER 48 HOURS OF INCUBATION. Resulted 05/24/24 17:06 Other Gram Stain - Final Complete 05/24/24 17:06 Other Anaerobic Culture - Final Complete 05/24/24 17:06 Aerobic Culture - Final Yeast, not Shawanda albicans Complete 05/17/24 01:52 Urine - [place] Urine Culture - Final Yeast, not Shawanda albicans Complete 05/16/24 14:20 Sputum Gram Stain - Final Complete 05/16/24 14:20 Respiratory Culture - Final Yeast, not Shawanda albicans Complete Assessment/Plan Assessment/Plan Robotic surgery hysterectomy and salpingo-oophorectomy complicated by Acute CVA Acute CVA w LUE hemiparesis Bowel perforation with repeat exploratory laparotomy with ileostomy creation History of breast cancer with bilateral mastectomies Afib RVR Acute hypoxic respiratory failure Mechanical intubation Exploratory laparotomy, drainage of intraabdominal abscess, thorough peritoneal lavage with reinforcement of the anastomotic location of the previous anastomosis as well as a diverting loop ileostomy on 05/24/24 Anemia Right upper extremity DVT Plan Mechanical ventilation TPN IV antibiotics: Vancomycin + Meropenem No vasopressors Sedation prn GI Prophylaxis: Protonix Transfuse blood prn 05/29/24: Transfuse 1 unit RBCs for Hb 5.9 Lasix 20 mg IV x1 Check Hb after transfusion Off pressors Antibiotics: Meropenem, Vanco, Micafungin Amiodarone IV Taper sedation down as tolerated CXR: Clear TPN Protonix 05/30/24: Discussed with Dr. Fritz Lake Will do CT ABD pelvis to follow up on abscess IV antibiotics Taper sedation down C-PAP? per Dr. Poon 05/31/24: CT abdomen showed no fluid collection IV antibiotics: Meropenem, Vancomycin & Micafungin Amiodarone Dr. Fritz Lake recommended to continue medical treatment, no surgical intervention Sedation as needed TPN 06/01/2024: Start Lovenox 70 mg subQ q.[address] Lake and Neurology IV antibiotics meropenem and vancomycin Micafungin TPN Tapered down sedation as tolerated 06/02/24: Fever Yeast in cultures: Micafungin IV antibiotics: Meropenem & Vanco TPN RUE DVT: Lovenox Normocytic anemia 7.9 Consult ID [place] [facility] Afib: Amiodarone drip Discussed with her sister over the phone 06/03/2024: IV antibiotics: Meropenem and vancomycin IV antifungal: Micafungin TPN Amiodarone IV Dr. Fritz Lake for surgery is on the case 06/04/24: Abdominal infection: IV antibiotics: Meropenem, Vanco and Micafungin TPN Amiodarone Surgery on case: Will discuss with Dr. Fritz Lake regarding tracheostomy ID consult is pending Discussed with sister over the phone, family is agreeable with the trach Anemia: Transfuse one unit RBCs Plan discussed with: Other Date of Service: Jun 04, 2024 Billing Provider: BARI MOORE MD Common Visit Codes: NOT BILLABLE BARI MOORE MD Jun 04, 2024 13:51
--- NOTE | 2024-06-04 19:40 | DVHPN2 ---
Progress Note Date Seen: Jun 04, 2024 Has the PT tested + for MRSA If YES, has PT been informed?: No Medical Necessity Reason Pt with a Central, PICC or Fol: Yes The following are medically ne: Muhammad Catheter Reason for muhammad catheter: Strict I&O Objective vital signs Vital Sign Date Time Temp Pulse Resp B/P (MAP) Pulse Ox O2 Delivery O2 Flow Rate FiO2 06/04/24 18:30 99.3 73 17 135/26 (62) 100 210.7 06/04/24 18:30 30 06/04/24 18:00 Mechanical Ventilator+ Total Intake and Output 06/03/24 06/03/24 06/04/24 15:00 23:00 07:00 Intake Total 1080.0 ml 1081 ml 852.5 ml Output Total 1230 ml 1255 ml Balance 1080.0 ml -149 ml -402.5 ml medications Current Medications Medications Dose Ordered Sig/Nora Route Start Time Stop Time Status Last Admin Dose Admin Ondansetron HCl 4 mg Q4HP PRN IV 05/07/24 16:30 05/16/24 05:55 4 MG Fentanyl Citrate 250 ml @ 2.5 mls/hr Q24H IV 05/16/24 14:00 06/04/24 12:49 25 MLS/HR Midazolam HCl 50 ml @ 1 mls/hr Q24H IV 05/16/24 21:00 06/04/24 12:38 7 MLS/HR Phenylephrine HCl 250 ml @ 30 mls/hr Q8H20M IV 05/16/24 21:15 05/17/24 06:03 30 MLS/HR Acetaminophen 650 mg Q6HPRN PRN IN 05/16/24 22:30 06/04/24 09:35 650 MG Pantoprazole Sodium 40 mg DAILY IV 05/17/24 10:00 06/04/24 09:35 40 MG Amino Acids 0 ml @ 0 mls/hr PER PHARMACY IV 05/17/24 08:30 Meropenem 50 ml @ 17 mls/hr Q8HR IV 05/18/24 14:00 06/04/24 14:51 17 MLS/HR Vancomycin HCl 0 ml @ 0 mls/hr UD IV 05/18/24 07:45 Metoprolol Tartrate 1.25 mg Q6HPRN PRN IV 05/18/24 16:00 05/18/24 16:17 1.25 MG Norepinephrine Bitartrate 32 mg/ Sodium Chloride 250 ml @ 0.938 mls/ hr Q24H IV 05/18/24 16:00 06/04/24 12:06 0.938 MLS/HR Amiodarone HCl 250 ml @ 16.667 mls/ hr Q15H IV 05/18/24 22:30 05/20/24 20:59 16.667 MLS/HR Potassium Chloride 100 ml @ 50 mls/hr Q2H IV 05/22/24 12:30 05/22/24 16:29 Cancel Diagnostic Test (Pha) 1 strip Q6HR 05/24/24 12:00 06/04/24 18:07 1 STRIP Insulin Human Regular FOLLOW SLIDING SCALE Q6HR SC 05/24/24 12:00 06/04/24 11:41 2 UNITS Dextrose 50 ml UD IV 05/24/24 12:00 Dexmedetomidine HCl 400 mcg/ Dextrose 100 ml @ 3.17 mls/hr Q24H IV 05/28/24 20:45 Hydralazine HCl 10 mg Q6HP PRN IV 05/30/24 16:15 06/03/24 04:02 10 MG Vancomycin HCl 200 ml @ 200 mls/hr DAILY@1500 IV 05/31/24 15:00 06/04/24 14:51 200 MLS/HR Enoxaparin Sodium 70 mg Q12HR SC 06/01/24 22:00 06/04/24 09:36 70 MG Labetalol HCl 10 mg Q2HPRN PRN IV 06/02/24 07:45 06/02/24 08:44 10 MG Micafungin Sodium 100 mg/Sodium Chloride 100 ml @ 100 mls/hr DAILY IV 06/03/24 10:00 06/04/24 09:54 100 MLS/HR Fat Emulsion Intravenous 100 ml/Sodium Acetate 10 meq/Sodium Phosphate 20 meq/ Potassium Acetate 10 meq/Magnesium Sulfate 20 meq/ Multivitamins 10 ml/Chromium/ Copper/Manganese/ Zinc 1 ml/Insulin Human Regular 18 units/Amino Acids/ Dextrose/Purified Water 1,581.18 ml @ 66 mls/hr [id number] IV 06/03/24 20:00 06/04/24 19:59 06/03/24 20:57 66 MLS/HR Fat Emulsion Intravenous 50 ml/ Sodium Acetate 20 meq/Sodium Phosphate 10 meq/ Potassium Chloride 40 meq/ Magnesium Sulfate 16 meq/ Multivitamins 10 ml/Chromium/ Copper/Manganese/ Zinc 1 ml/Insulin Human Regular 18 units/Amino Acids/ Dextrose/Purified Water 1,647.68 ml @ 68 mls/hr [id number] IV 06/04/24 20:00 06/05/24 19:59 laboratory and microbiology Laboratory Tests 06/04/24 03:00 Test 06/04/24 03:00 Range/Units Serum Glucose 118 H 74-106 mg/dL Microbiology Date/Time Source Procedure Growth Status 06/02/24 16:09 Urine - [place] Urine Culture - Preliminary Resulted 06/02/24 15:50 Abdomen Gram Stain - Final Resulted 06/02/24 15:50 Abdomen Wound Culture - Preliminary Resulted 06/02/24 11:02 Blood Blood Culture - Preliminary NO GROWTH AFTER 48 HOURS OF INCUBATION. Resulted 05/16/24 14:20 Sputum Gram Stain - Final Complete 05/16/24 14:20 Respiratory Culture - Final Yeast, not Shawanda albicans Complete Problem List/Assessment/Plan Problem List/Assessment/Plan INTUBATED CPAP TRIAL ONGOING TEMP 100 WBC WNL ABD SOFT DRAINS IN PLACE DRESSING ABD WOUND DRAINAGE NOTED AND EXPECTED BUT LESS CONDITION GUARDED ILEOSTOMY VIABLE AND FUNCTIONAL NURSE AT BEDSIDE CONTINUE SUPPORTIVE CARE PULM EVAL ONGOING CONSIDER TRACH BASED ON ONGOING EVAL Plan discussed with: Patient Dietary Evaluation Review Comments: 1) Advance pt diet when medically feasible to a 2gmNa diet modified per [employer]INE[employer] recommendations 2) Continue current plan of care Expected Outcomes/Goals: 1) Pt diet to advance 2) F/U in 2-3 days SHEY COVARRUBIAS MD Jun 04, 2024 19:40
--- NOTE | 2024-06-04 21:08 | DVHINCON2 ---
Date of service: Jun 02, 2024 Allergies: Coded Allergies: Sulfa Antibiotics (Unverified Allergy, Unknown, 05/04/24) Statins (Unverified Adverse Reaction, Intermediate, muscle aches, 05/04/24) Home Meds Reported Medications Sertraline Hcl (Zoloft) 50 Mg Tab, 50 MG PO DAILY, TAB 05/04/24 Sertraline Hcl (Zoloft) 25 Mg Tab, 1 TAB PO DAILY, #30 TAB 1 Refill 05/04/24 Ciprofloxacin Hcl (Cipro) 500 Mg Tab, 500 MG PO BID, TAB 05/04/24 Tamoxifen Citrate (Tamoxifen Citrate) 20 Mg Tab, 20 MG PO DAILY, TAB 05/04/24 Current Medications Current Medications Medications (Trade) Dose Ordered Sig/Nora Route PRN Reason Start Time Stop Time Status Last Admin Fat Emulsion Intravenous 50 ml/ Sodium Acetate 20 meq/Sodium Phosphate 10 meq/ Potassium Chloride 40 meq/ Magnesium Sulfate 16 meq/ Multivitamins 10 ml/Chromium/ Copper/Manganese/ Zinc 1 ml/Insulin Human Regular 18 units/Amino Acids/ Dextrose/Purified Water 1,647.68 ml @ 68 mls/hr [id number] IV 06/04/24 20:00 06/05/24 19:59 Vital Signs Vital Signs Date Time Temp Pulse Resp B/P (MAP) Pulse Ox O2 Delivery O2 Flow Rate FiO2 06/04/24 18:45 99.3 75 8 138/26 (63) 100 210.7 06/04/24 18:30 30 06/04/24 18:00 Mechanical Ventilator+ Labs/Diagnostic Data Labs Test 06/04/24 18:05 06/04/24 06:55 06/04/24 03:00 06/03/24 04:30 Range/Units POC Glucose 124 H 70-106 mg/dl Blood Gas Specimen Type Arterial Blood Gas Sample Site Right radial Blood Gas Patient Temperature 37.0 Arterial Blood Date Drawn [id number] Arterial Blood pH 7.452 H 7.350-7.450 Arterial Blood Partial Pressure CO2 34.1 32.0-45.0 mmHg Arterial Blood Partial Pressure O2 120.7 H 83.0-108.0 mmHg Arterial Blood HCO3 23.3 21.0-28.0 mmol/L Arterial Blood Oxygen Saturation 98.3 H 94.0-98.0 % Arterial Blood Base Excess -0.5 -2.0-3.0 mmol/L Arterial Blood Oxyhemoglobin 98.0 94.0-98.0 % Arterial Blood Carboxyhemoglobin 0.3 L 0.5-1.5 % Arterial Blood Methemoglobin 0.0 0.0-1.5 % Yuval Test Yes Blood Gas Total Hemoglobin 7.80 L 12.0-16.0 g/dL Blood Gas Set Respiration Rate 18.0 Blood Gas Modality Vent - ac FiO2 % 30.0 Blood Gas Tidal Volume 450.0 Blood Gas PEEP or CPAP 5.0 White Blood Count 9.3 4.4-10.8 10^3/uL Red Blood Count 2.28 L 4.0-5.20 10^6/uL Hemoglobin 6.9 *L 12.2-16.2 g/dL Hematocrit 20.0 #L 36.0-46.0 % Mean Corpuscular Volume 87.5 80.0-100.0 fL Mean Corpuscular Hemoglobin 30.1 28.0-32.0 pg Mean Corpuscular Hemoglobin Concent 34.4 32.0-36.0 g/dL Red Cell Distribution Width 14.7 H 11.8-14.3 % Platelet Count 277 140-450 10^3/uL Mean Platelet Volume 7.5 6.9-10.8 fL Neutrophils (%) (Auto) 37.0-80.0 % Lymphocytes (%) (Auto) 10.0-50.0 % Monocytes (%) (Auto) 0.0-12.0 % Basophils (%) (Auto) 0.0-2.0 % Neutrophils # (Auto) 1.6-8.6 10 ^3/uL Lymphocytes # (Auto) 0.4-5.4 10 ^3/uL Monocytes # (Auto) 0-1.3 10 ^3/uL Differential Total Cells Counted 100.0 100 Neutrophils % (Manual) 81 H 37.0-80.0 Band Neutrophils % (Manual) 1 Lymphocytes % (Manual) 5 L 10.0-50.0 Monocytes % (Manual) 9 0-12 Eosinophils % (Manual) 1 0-7 Basophils % (Manual) 0 0.0-2.0 Metamyelocytes % (manual) 0 Myelocytes % (Manual) 3 Promyelocytes % (Manual) 0 Blast Cells % (Manual) 0 Reactive Lymphocytes 0 Platelet Estimate Adequate Sodium Level 135 L 136-145 mmol/L Potassium Level 3.7 3.5-5.1 mmol/L Chloride Level 105 98-107 mmol/L Carbon Dioxide Level 25 20-31 mmol/L Anion Gap 5 5-15 Blood Urea Nitrogen 31 H 9-23 mg/dL Creatinine 0.54 L 0.550-1.02 mg/dL Glomerular Filtration Rate Calc 100 >90 mL/min BUN/Creatinine Ratio 57.4 H 10.0-20.0 Serum Glucose 118 H 74-106 mg/dL Calcium Level 9.5 8.7-10.4 mg/dL Phosphorus Level 3.9 2.4-5.1 mg/dL Magnesium Level 2.3 1.6-2.6 mg/dL Magnesium Lvl (Mg Sulfate Therapy) 2.29 L 4.0-7.1 mg/dL Total Bilirubin 1.5 H 0.2-1.0 mg/dL Aspartate Amino Transferase (AST) 24 13-40 U/L Alanine Aminotransferase (ALT) 22 7-40 U/L Alkaline Phosphatase 143 H 46-116 U/L Total Protein 5.7 5.7-8.2 g/dL Albumin 2.6 L 3.2-4.8 g/dL Eosinophils (%) (Auto) 1.1 0.0-7.0 % Eosinophils # (Auto) 0.1 0-0.8 10 ^3/uL Basophils # (Auto) 0.1 0-0.2 10 ^3/uL Nucleated Red Blood Cells 0.0 % Test 06/02/24 14:12 06/01/24 03:24 05/31/24 07:00 05/27/24 08:07 Range/Units Vancomycin Level Trough 14.9 H 5-10 ug/mL Triglycerides Level 208 H < 150 mg/dL Blood Gas Spontaneous Rate 22 Blood Gas Inspiratory Pressure 16.0 Bl Gas Inspiratory/Expiratory Ratio 1:2.2 Specimen Drawn By donald william Blood Gas Critical Value Read Back yes Blood Gas Notified Whom renita grove Blood Gas Notified Time [id number] Blood Gas Notified By donald william Test 05/25/24 03:15 05/20/24 03:23 05/19/24 03:12 05/18/24 03:30 Range/Units Prothrombin Time 11.4 9.3-11.8 sec Prothrombin Time INR 1.08 0.9-1.15 Activated Partial Thromboplast Time 31.1 24.5-34.5 SEC Smudge Cells 2 /100 WBC Large Platelets Few Clumped Platelets Few Poikilocytosis (manual) Slight Anisocytosis (manual) Slight [place] Cells Few Test 05/16/24 22:55 05/12/24 11:19 05/11/24 16:18 05/08/24 21:08 Range/Units Lactic Acid Level 3.5 *H 0.4-2.0 mmol/L Cholesterol Level 134 < 200 mg/dL LDL Cholesterol 75 < 100 mg/dL HDL Cholesterol 23 L 40-59 mg/dL Thyroid Stimulating Hormone (TSH) 2.01 0.55-4.78 uIU/mL Urine Color Yellow Yellow Urine Clarity Clear Clear Urine pH 6.0 5.0-9.0 Urine Specific [place] 1.020 1.001-1.035 Urine Protein 1+ H Negative Urine Ketones 4+ H Negative Urine Blood Trace H Negative /uL Urine Nitrite Negative Negative Urine Bilirubin Negative Negative Urine Urobilinogen Normal Negative mg/dL Urine Leukocyte Esterase Negative Negative /uL Urine RBC 2 0 - 4 /hpf Urine WBC 2 0 - 5 /hpf Urine Squamous Epithelial Cells Few <5 /hpf Urine Bacteria None seen None Seen /hpf Urine Mucus Few None Seen Urine Glucose Normal Normal mg/dL Red Blood Cell Morphology Normal Microbiology Date/Time Source Procedure Growth Status 06/02/24 16:09 Urine - [place] Urine Culture - Preliminary Resulted 06/02/24 15:50 Abdomen Gram Stain - Final Resulted 06/02/24 15:50 Abdomen Wound Culture - Preliminary Resulted 06/02/24 11:02 Blood Blood Culture - Preliminary NO GROWTH AFTER 48 HOURS OF INCUBATION. Resulted 05/16/24 14:20 Sputum Gram Stain - Final Complete 05/16/24 14:20 Respiratory Culture - Final Yeast, not Shawanda albicans Complete Plan/Recommendation Assessment and Plan: ID Problem List: 1. Small bowel obstruction with perforation 2. Septic shock 3. Stroke, right MCA territory 4. Hypertension 5. Anemia 6. Breast cancer 7. Bilateral mastectomy 8. Post-surgical complications (including ileostomy creation) 9. Fungal infection (yeast not Shawanda albicans) 10. Strep Viridans Group B infection Assessment: This is a 68-year-old female, with a significant past medical history of anemia, hypertension, breast cancer status post bilateral mastectomy, and a 50 pack-year smoking history (now quit), who was initially admitted for a robotic hysterectomy with bilateral salpingectomy, removal of a right ovarian mass, cystocele repair with urethral sling. Postoperatively, she developed hypertension and nausea, necessitating overnight admission. Post-admission, she endured a cerebrovascular accident primarily impacting the right MCA territory and contributing to left-sided weakness. Subsequent evaluations included MRI and CT head scans that confirmed multiple acute and subacute infarcts. Later complications included progression to an acute small bowel obstruction with perforation, leading to emergent exploratory laparotomy and subsequent ileo stomy creation. Cultures from the surgical sites revealed a non-Shawanda albicans yeast and Strep Viridans Group B infection. The patient continues to require ICU support, primarily due to ongoing septic shock and the need for ventilatory assistance. Patient remains intubated with vasopressors being weaned off. Recent WBC count was 16.9 and hemoglobin levels have fluctuated, dropping as low as 5.9. She has been transitioned to a multi-antibiotic regimen including meropenem, vancomycin, and TPN for nutritional support. Plan: 1. Continue current antibiotics: meropenem, start vancomycin empirically 2. Continue micafungin for fungal infection 3. check blood cultures and check surgical site wound culture 4. Provide ICU support with ventilator for respiratory status and hemodynamic monitoring. 5. Supportive care measures for septic shock, including fluid resuscitation and vasopressor management. 6. Monitor and maintain drainage output. 7. Ensure adequate nutritional support through TPN. 8. Follow-up with surgical team for wound care and any necessary surgical interventions. Authorized and Performed by: toshia victoria MD Total critical care time: Approximately 76 minutes Due to a high probability of clinically significant, life threatening deterioration, the patient required my highest level of preparedness to intervene emergently and I personally spent this critical care time directly and personally managing the patient. This critical care time included obtaining a history; examining the patient; pulse oximetry; ordering and review of studies; arranging urgent treatment with development of a management plan; evaluation of patient's response to treatment; frequent reassessment; and, discussions with other providers. This critical care time was performed to assess and manage the high probability of imminent, life-threatening deterioration that could result in multi-organ failure. It was exclusive of separately billable procedures and treating other patients and teaching time. --- History: History obtained from: patient and medical records. La Brarera is a 68-year-old female who was admitted for a robotic hysterectomy with bilateral salpingectomy, removal of a right ovarian mass, and cystocele repair with urethral sling. Chief Complaint: Nausea and hypertension following surgery. History of Present Illness: - Postoperatively developed hypertension and nausea. - Started on ciprofloxacin empirically. - Developed left-sided weakness leading to the discovery of right MCA territory stroke on MRI. - Emergency exploratory laparotomy for small bowel obstruction with perforation; ileostomy created due to ongoing peritonitis and associated abscesses. - Post-surgery cultures indicated yeast (non-Shawanda albicans) and Strep Viridans Group B infection. - Continued on multi-antibiotic therapy with ICU supportive care. --- Review of Systems: - CONSTITUTIONAL: Denies weight loss, fever, and chills. - HEENT: Denies changes in vision and hearing. - RESPIRATORY: Denies SOB and cough. - CV: Denies palpitations and CP. - GI: Complains of nausea. - : Denies dysuria and urinary frequency. - MSK: Denies myalgia and joint pain. - SKIN: Denies rash and pruritus. - NEUROLOGICAL: Endorses left-sided weakness. - PSYCHIATRIC: Denies recent changes in mood, anxiety, or depression. --- Past Medical History: - Anemia - Hypertension - Breast cancer status post bilateral mastectomy - 50 pack-year smoking history Past Surgical History: - Bilateral mastectomy - Hernia repair Home Medications: - Ciprofloxacin (on admission) - Plavix - Atorvastatin (Lipitor) - Aspirin Allergies: - Allergic to sulfa drugs - Allergic to statins Family History: - Prostate cancer (Father) - Diabetes (Sister) - Prostate cancer (Brother) Social History: - Marital status: Not reported - Number of children: Not reported - Lives with family - Smoking history: 50 pack-years (now quit) - Alcohol use: No alcohol use - Drug use: No drug use --- Objective: Vital Signs on Arrival: - Temp: 36.3 C (97.4 F) - BP: 110/68 mmHg - Pulse: 75 bpm - Resp: 16 bpm - SpO2: 96% Most Recent Vital Signs: - Temp: 36.5 C (97.7 F) - BP: 133/66 mmHg - Pulse: 75 bpm - Resp: 16 bpm - SpO2: 96% on room air Admission Weight: - Weight: 38.6 kg (85 lb) - BMI: 17.34 kg/m Physical Exam: - General: NAD - Neck: Supple. No masses. - HEENT: PERRL. Normal lids and conjunctiva. Moist mucous membranes. Oropharynx without lesions, exudates or excessive erythema. Normal appearance of the external aspects of the nose and ears. - Heart: Regular rhythm, normal rate. No murmur. No lower extremity edema. - Lungs: Normal respiratory effort. Clear to auscultation bilaterally. No wheezes. No crackles. - Abdomen: Soft. Non-tender. Non-distended. No masses or abdominal hernia. - MSK: No digital cyanosis. Normal strength and tone in all 4 limbs. - Skin: Warm and dry, no rashes. - Neuro: Alert. No facial droop or slurred speech. EO movements intact. Sensation intact to soft touch in all 4 limbs. - Psych: Appropriate mood. Full affect. Oriented to person, place, time, and situation. Pertinent Imaging: - MRI demonstrated multiple foci of restricted diffusion in the right cerebral hemisphere including the superior frontal lobe consistent with acute and subacute infarcts. - CT head showed chronic lacunar infarct in the right centrum semiovale, periventricular ischemic changes, cerebral atrophy. - Operative reports indicated yeast (not Shawanda albicans) and gram-positive rods. - Blood cultures: No growth as of last report. - Urine culture: Yeast (not Shawanda albicans). Plan discussed with: Patient TOSHIA VICTORIA MD Jun 04, 2024 21:08
--- NOTE | 2024-06-04 21:15 | DVHPN2 ---
Chief Complaints Patient reports: No new complaints (sedated on vent), Other (continued intubation) Nursing reports: No new complaints (continued anemia) Objective Vitals Vital Signs Date Time Temp Pulse Resp B/P (MAP) Pulse Ox O2 Delivery O2 Flow Rate FiO2 06/04/24 18:45 99.3 75 8 138/26 (63) 100 210.7 06/04/24 18:30 30 06/04/24 18:00 Mechanical Ventilator+ Medications Current Medications Medications (Trade) Dose Ordered Sig/Nora Route PRN Reason Start Time Stop Time Status Last Admin Fat Emulsion Intravenous 50 ml/ Sodium Acetate 20 meq/Sodium Phosphate 10 meq/ Potassium Chloride 40 meq/ Magnesium Sulfate 16 meq/ Multivitamins 10 ml/Chromium/ Copper/Manganese/ Zinc 1 ml/Insulin Human Regular 18 units/Amino Acids/ Dextrose/Purified Water 1,647.68 ml @ 68 mls/hr [id number] IV 06/04/24 20:00 06/05/24 19:59 General: Normal Head/Eyes: Normal ENT: Normal Neck: Normal Lungs: Normal Cardiovascular: Normal Abdominal: Normal (Wounds clean dry and intact iliostomy billous stool , drains one serosang , the other less billous impromved) Abdomen quadrants: RUQ Absent bowel sounds (+ BS) Musculoskeletal: Normal Extremities: Normal Skin: Normal Neurological: Normal (appropriate grimous and sensation) Studies Laboratory Tests 06/04/24 03:00 Test 06/04/24 03:00 Range/Units Serum Glucose 118 H 74-106 mg/dL Ass/Plan Assessment Overall improved reportedly Radio Despatcher team will try to wean of Vent again tomorrow. Condition Guarded some Improvements, Malnutrition an issue sepsis Ileostomy functioning well, drains mod Anemia Hx colon CA Hx Breast CA Discussed with Jaya Surgeon .. He is hopeful some what improving but not worsening considering another CT .... The intensivists trying to wean of Vent... Nutrition very necessary TPN . Plan as above ANDRES PAZ DO Jun 04, 2024 21:14
--- NOTE | 2024-06-04 21:27 | DVHPN2 ---
Consult Progress Note Date Seen: Jun 03, 2024 Subjective Patient reports: Feels better (remains, febrile, 150 cc gastric drainage) Objective vital signs Vital Sign Date Time Temp Pulse Resp B/P (MAP) Pulse Ox O2 Delivery O2 Flow Rate FiO2 06/04/24 18:45 99.3 75 8 138/26 (63) 100 210.7 06/04/24 18:30 30 06/04/24 18:00 Mechanical Ventilator+ Total Intake and Output 06/03/24 06/03/24 06/04/24 14:59 22:59 06:59 Intake Total 858.0 ml 1298 ml 852.5 ml Output Total 1230 ml 1255 ml Balance 858.0 ml 68 ml -402.5 ml medications Current Medications Medications Dose Ordered Sig/Nora Route Start Time Stop Time Status Last Admin Dose Admin Ondansetron HCl 4 mg Q4HP PRN IV 05/07/24 16:30 05/16/24 05:55 Fentanyl Citrate 250 ml @ 2.5 mls/hr Q24H IV 05/16/24 14:00 06/04/24 12:49 Midazolam HCl 50 ml @ 1 mls/hr Q24H IV 05/16/24 21:00 06/04/24 20:01 Phenylephrine HCl 250 ml @ 30 mls/hr Q8H20M IV 05/16/24 21:15 05/17/24 06:03 Acetaminophen 650 mg Q6HPRN PRN MD 05/16/24 22:30 06/04/24 09:35 Pantoprazole Sodium 40 mg DAILY IV 05/17/24 10:00 06/04/24 09:35 Amino Acids 0 ml @ 0 mls/hr PER PHARMACY IV 05/17/24 08:30 Meropenem 50 ml @ 17 mls/hr Q8HR IV 05/18/24 14:00 06/04/24 14:51 Vancomycin HCl 0 ml @ 0 mls/hr UD IV 05/18/24 07:45 Metoprolol Tartrate 1.25 mg Q6HPRN PRN IV 05/18/24 16:00 05/18/24 16:17 Norepinephrine Bitartrate 32 mg/ Sodium Chloride 250 ml @ 0.938 mls/ hr Q24H IV 05/18/24 16:00 06/04/24 12:06 Amiodarone HCl 250 ml @ 16.667 mls/ hr Q15H IV 05/18/24 22:30 05/20/24 20:59 Potassium Chloride 100 ml @ 50 mls/hr Q2H IV 05/22/24 12:30 05/22/24 16:29 Cancel Diagnostic Test (Pha) 1 strip Q6HR 05/24/24 12:00 06/04/24 18:07 Insulin Human Regular FOLLOW SLIDING SCALE Q6HR SC 05/24/24 12:00 06/04/24 11:41 Dextrose 50 ml UD IV 05/24/24 12:00 Dexmedetomidine HCl 400 mcg/ Dextrose 100 ml @ 3.17 mls/hr Q24H IV 05/28/24 20:45 Hydralazine HCl 10 mg Q6HP PRN IV 05/30/24 16:15 06/03/24 04:02 Vancomycin HCl 200 ml @ 200 mls/hr DAILY@1500 IV 05/31/24 15:00 06/04/24 14:51 Enoxaparin Sodium 70 mg Q12HR SC 06/01/24 22:00 06/04/24 09:36 Labetalol HCl 10 mg Q2HPRN PRN IV 06/02/24 07:45 06/02/24 08:44 Micafungin Sodium 100 mg/Sodium Chloride 100 ml @ 100 mls/hr DAILY IV 06/03/24 10:00 06/04/24 09:54 Fat Emulsion Intravenous 50 ml/ Sodium Acetate 20 meq/Sodium Phosphate 10 meq/ Potassium Chloride 40 meq/ Magnesium Sulfate 16 meq/ Multivitamins 10 ml/Chromium/ Copper/Manganese/ Zinc 1 ml/Insulin Human Regular 18 units/Amino Acids/ Dextrose/Purified Water 1,647.68 ml @ 68 mls/hr [id number] IV 06/04/24 20:00 06/05/24 19:59 Physical Exam: - General: NAD - Neck: Supple. No masses. - HEENT: PERRL. Normal lids and conjunctiva. Moist mucous membranes. Oropharynx without lesions, exudates or excessive erythema. Normal appearance of the external aspects of the nose and ears. - Heart: Regular rhythm, normal rate. No murmur. No lower extremity edema. - Lungs: Normal respiratory effort. Clear to auscultation bilaterally. No wheezes. No crackles. - Abdomen: Soft. Non-tender. Non-distended. No masses or abdominal hernia. - MSK: No digital cyanosis. Normal strength and tone in all 4 limbs. - Skin: Warm and dry, no rashes. - Neuro: Alert. No facial droop or slurred speech. EO movements intact. Sensation intact to soft touch in all 4 limbs. L sided weakness in UE and LE - Psych: Appropriate mood.intubated and sedated laboratory and microbiology Laboratory Tests 06/04/24 03:00 Test 06/04/24 03:00 Range/Units Serum Glucose 118 H 74-106 mg/dL Problem List/Assessment/Plan Problems(with codes): (1) Intra-abdominal abscess (2) Fungal infection (3) SBO (small bowel obstruction) (4) Stroke Problem List/Assessment/Plan Assessment and Plan: ID Problem List: 1. Small bowel obstruction with perforation 2. Septic shock 3. Stroke, right MCA territory 4. Hypertension 5. Anemia 6. Breast cancer 7. Bilateral mastectomy 8. Post-surgical complications (including ileostomy creation) 9. Fungal infection (yeast not Shawanda albicans) 10. Strep Viridans Group B infection Assessment: This is a 68-year-old female, with a significant past medical history of anemia, hypertension, breast cancer status post bilateral mastectomy, and a 50 pack-year smoking history (now quit), who was initially admitted for a robotic hysterectomy with bilateral salpingectomy, removal of a right ovarian mass, cystocele repair with urethral sling. Postoperatively, she developed hypertension and nausea, necessitating overnight admission. Post-admission, she endured a cerebrovascular accident primarily impacting the right MCA territory and contributing to left-sided weakness. Subsequent evaluations included MRI and CT head scans that confirmed multiple acute and subacute infarcts. Later complications included progression to an acute small bowel obstruction with perforation, leading to emergent exploratory laparotomy and subsequent ileostomy creation. Cultures from the surgical sites revealed a non-Shawanda albicans yeast and Strep Viridans Group B infection. The patient continues to require ICU support, primarily due to ongoing septic shock and the need for ventilatory assistance. Patient remains intubated with vasopressors being weaned off. Recent WBC count was 16.9 and hemoglobin levels have fluctuated, dropping as low as 5.9. She has been transitioned to a multi-antibiotic regimen including meropenem, vancomycin, and TPN for nutritional support. Plan: 1. Continue current antibiotics: meropenem, start vancomycin empirically 2. Continue micafungin for fungal infection 3. check blood cultures and check surgical site wound culture 4. Provide ICU support with ventilator for respiratory status and hemodynamic monitoring. 5. Supportive care measures for septic shock, including fluid resuscitation and vasopressor management. 6. Monitor and maintain drainage output. 7. Ensure adequate nutritional support through TPN. 8. Follow-up with surgical team for wound care and any necessary surgical interventions. Authorized and Performed by: mey ayala MD Total critical care time: Approximately 76 minutes Due to a high probability of clinically significant, life threatening deterioration, the patient required my highest level of preparedness to intervene emergently and I personally spent this critical care time directly and personally managing the patient. This critical care time included obtaining a history; examining the patient; pulse oximetry; ordering and review of studies; arranging urgent treatment with development of a management plan; evaluation of patient's response to treatment; frequent reassessment; and, discussions with other providers. This critical care time was performed to assess and manage the high probability of imminent, life-threatening deterioration that could result in multi-organ failure. It was exclusive of separately billable procedures and treating other patients and teaching time. Plan discussed with: Patient Dietary Evaluation Review Comments: 1) Advance pt diet when medically feasible to a 2gmNa diet modified per [employer] SETTER recommendations 2) Continue current plan of care Expected Outcomes/Goals: 1) Pt diet to advance 2) F/U in 2-3 days MEY AYALA MD Jun 04, 2024 21:27
[2024-06-04] MEDS: TPN PER PHARMACY IV NR (21:29)
--- NOTE | 2024-06-04 21:33 | DVHPN2 ---
Consult Progress Note Date Seen: Jun 04, 2024 Subjective Patient reports: Other (remains on minimal vent , last fever was earlier this morning of 100.2, cultures have no growth . 225 ccs of serosynchunis output through the drain ) Objective vital signs Vital Sign Date Time Temp Pulse Resp B/P (MAP) Pulse Ox O2 Delivery O2 Flow Rate FiO2 06/04/24 18:45 99.3 75 8 138/26 (63) 100 210.7 06/04/24 18:30 30 06/04/24 18:00 Mechanical Ventilator+ Total Intake and Output 06/03/24 06/03/24 06/04/24 14:59 22:59 06:59 Intake Total 858.0 ml 1298 ml 852.5 ml Output Total 1230 ml 1255 ml Balance 858.0 ml 68 ml -402.5 ml medications Current Medications Medications Dose Ordered Sig/Nora Route Start Time Stop Time Status Last Admin Dose Admin Ondansetron HCl 4 mg Q4HP PRN IV 05/07/24 16:30 05/16/24 05:55 Fentanyl Citrate 250 ml @ 2.5 mls/hr Q24H IV 05/16/24 14:00 06/04/24 12:49 Midazolam HCl 50 ml @ 1 mls/hr Q24H IV 05/16/24 21:00 06/04/24 20:01 Phenylephrine HCl 250 ml @ 30 mls/hr Q8H20M IV 05/16/24 21:15 05/17/24 06:03 Acetaminophen 650 mg Q6HPRN PRN KS 05/16/24 22:30 06/04/24 09:35 Pantoprazole Sodium 40 mg DAILY IV 05/17/24 10:00 06/04/24 09:35 Amino Acids 0 ml @ 0 mls/hr PER PHARMACY IV 05/17/24 08:30 Meropenem 50 ml @ 17 mls/hr Q8HR IV 05/18/24 14:00 06/04/24 14:51 Vancomycin HCl 0 ml @ 0 mls/hr UD IV 05/18/24 07:45 Metoprolol Tartrate 1.25 mg Q6HPRN PRN IV 05/18/24 16:00 05/18/24 16:17 Norepinephrine Bitartrate 32 mg/ Sodium Chloride 250 ml @ 0.938 mls/ hr Q24H IV 05/18/24 16:00 06/04/24 12:06 Amiodarone HCl 250 ml @ 16.667 mls/ hr Q15H IV 05/18/24 22:30 05/20/24 20:59 Potassium Chloride 100 ml @ 50 mls/hr Q2H IV 05/22/24 12:30 05/22/24 16:29 Cancel Diagnostic Test (Pha) 1 strip Q6HR 05/24/24 12:00 06/04/24 18:07 Insulin Human Regular FOLLOW SLIDING SCALE Q6HR SC 05/24/24 12:00 06/04/24 11:41 Dextrose 50 ml UD IV 05/24/24 12:00 Dexmedetomidine HCl 400 mcg/ Dextrose 100 ml @ 3.17 mls/hr Q24H IV 05/28/24 20:45 Hydralazine HCl 10 mg Q6HP PRN IV 05/30/24 16:15 06/03/24 04:02 Vancomycin HCl 200 ml @ 200 mls/hr DAILY@1500 IV 05/31/24 15:00 06/04/24 14:51 Enoxaparin Sodium 70 mg Q12HR SC 06/01/24 22:00 06/04/24 09:36 Labetalol HCl 10 mg Q2HPRN PRN IV 06/02/24 07:45 06/02/24 08:44 Micafungin Sodium 100 mg/Sodium Chloride 100 ml @ 100 mls/hr DAILY IV 06/03/24 10:00 06/04/24 09:54 Fat Emulsion Intravenous 50 ml/ Sodium Acetate 20 meq/Sodium Phosphate 10 meq/ Potassium Chloride 40 meq/ Magnesium Sulfate 16 meq/ Multivitamins 10 ml/Chromium/ Copper/Manganese/ Zinc 1 ml/Insulin Human Regular 18 units/Amino Acids/ Dextrose/Purified Water 1,647.68 ml @ 68 mls/hr [id number] IV 06/04/24 20:00 06/05/24 19:59 Physical Exam: - General: NAD - Neck: Supple. No masses. - HEENT: PERRL. Normal lids and conjunctiva. Moist mucous membranes. Oropharynx without lesions, exudates or excessive erythema. Normal appearance of the external aspects of the nose and ears. - Heart: Regular rhythm, normal rate. No murmur. No lower extremity edema. - Lungs: Normal respiratory effort. Clear to auscultation bilaterally. No wheezes. No crackles. - Abdomen: Soft. Non-tender. Non-distended. No masses or abdominal hernia. - MSK: No digital cyanosis. Normal strength and tone in all 4 limbs. - Skin: Warm and dry, no rashes. - Neuro: Alert. No facial droop or slurred speech. EO movements intact. Sensation intact to soft touch in all 4 limbs. L sided weakness in UE and LE - Psych: Appropriate mood.intubated and sedated laboratory and microbiology Laboratory Tests 06/04/24 03:00 Test 06/04/24 03:00 Range/Units Serum Glucose 118 H 74-106 mg/dL Problem List/Assessment/Plan Problems(with codes): (1) Fungal infection (2) Intra-abdominal abscess (3) SBO (small bowel obstruction) (4) Stroke Problem List/Assessment/Plan Assessment and Plan: ID Problem List: 1. Small bowel obstruction with perforation 2. Septic shock 3. Stroke, right MCA territory 4. Hypertension 5. Anemia 6. Breast cancer 7. Bilateral mastectomy 8. Post-surgical complications (including ileostomy creation) 9. Fungal infection (yeast not Shawanda albicans) 10. Strep Viridans Group B infection Assessment: This is a 68-year-old female, with a significant past medical history of anemia, hypertension, breast cancer status post bilateral mastectomy, and a 50 pack-year smoking history (now quit), who was initially admitted for a robotic hysterectomy with bilateral salpingectomy, removal of a right ovarian mass, cystocele repair with urethral sling. Postoperatively, she developed hypertension and nausea, necessitating overnight admission. Post-admission, she endured a cerebrovascular accident primarily impacting the right MCA territory and contributing to left-sided weakness. Subsequent evaluations included MRI and CT head scans that confirmed multiple acute and subacute infarcts. Later complications included progression to an acute small bowel obstruction with perforation, leading to emergent exploratory laparotomy and subsequent ileostomy creation. Cultures from the surgical sites revealed a non-Shawanda albicans yeast and Strep Viridans Group B infection. The patient continues to require ICU support, primarily due to ongoing septic shock and the need for ventilatory assistance. Patient remains intubated with vasopressors being weaned off. Recent WBC count was 16.9 and hemoglobin levels have fluctuated, dropping as low as 5.9. She has been transitioned to a multi-antibiotic regimen including meropenem, vancomycin, and TPN for nutritional support. 06/04: hemaglobin of 6.9, suspect ongoing blood loss. Preliminary blood cultures are no growth for 48 hours as well as wound and urine cultures with no growth Plan: 1. Continue current antibiotics: meropenem, start vancomycin empirically 2. Continue micafungin for fungal infection, may consider switching if yeast infection persists but will hold off for now 3. check blood cultures and check surgical site wound culture 4. Provide ICU support with ventilator for respiratory status and hemodynamic monitoring. 5. Supportive care measures for septic shock, including fluid resuscitation and vasopressor management. 6. Monitor and maintain drainage output. 7. Ensure adequate nutritional support through TPN. 8. Follow-up with surgical team for wound care and any necessary surgical interventions. 9. if hypotension persists, recommend repeating Ct of abdomen in a few days to rule out hematoma Authorized and Performed by: mey ayala MD Total critical care time: Approximately 76 minutes Due to a high probability of clinically significant, life threatening deterioration, the patient required my highest level of preparedness to intervene emergently and I personally spent this critical care time directly and personally managing the patient. This critical care time included obtaining a history; examining the patient; pulse oximetry; ordering and review of studies; arranging urgent treatment with development of a management plan; evaluation of patient's response to treatment; frequent reassessment; and, discussions with other providers. This critical care time was performed to assess and manage the high probability of imminent, life-threatening deterioration that could result in multi-organ failure. It was exclusive of separately billable procedures and treating other patients and teaching time. Plan discussed with: Other Dietary Evaluation Review Comments: 1) Advance pt diet when medically feasible to a 2gmNa diet modified per [employer] recommendations 2) Continue current plan of care Expected Outcomes/Goals: 1) Pt diet to advance 2) F/U in 2-3 days MEY AYALA MD Jun 04, 2024 21:33
--- NOTE | 2024-06-04 22:22 | DVHPN2 ---
Progress Note - Dictate Date Seen: Jun 04, 2024 Has the PT tested + for MRSA If YES, has PT been informed?: No Medical Necessity Reason Pt with a Central, PICC or Fol: Yes The following are medically ne: Muhammad Catheter Reason for muhammad catheter: Strict I&O Subjective Patient seen and examined at bedside. Sedated, intubated on mechanical ventilator. Overnight events reviewed. vital signs Vital Sign Date Time Temp Pulse Resp B/P (MAP) Pulse Ox O2 Delivery O2 Flow Rate FiO2 06/04/24 21:42 100.4 06/04/24 18:45 75 8 138/26 (63) 100 06/04/24 18:30 30 06/04/24 18:00 Mechanical Ventilator+ Total Intake and Output 06/03/24 06/03/24 06/04/24 15:00 23:00 07:00 Intake Total 1080.0 ml 1081 ml 852.5 ml Output Total 1230 ml 1255 ml Balance 1080.0 ml -149 ml -402.5 ml medications Current Medications Medications Dose Ordered Sig/Nora Route Start Time Stop Time Status Last Admin Dose Admin Ondansetron HCl 4 mg Q4HP PRN IV 05/07/24 16:30 05/16/24 05:55 4 MG Fentanyl Citrate 250 ml @ 2.5 mls/hr Q24H IV 05/16/24 14:00 06/04/24 12:49 25 MLS/HR Midazolam HCl 50 ml @ 1 mls/hr Q24H IV 05/16/24 21:00 06/04/24 20:01 8 MLS/HR Phenylephrine HCl 250 ml @ 30 mls/hr Q8H20M IV 05/16/24 21:15 05/17/24 06:03 30 MLS/HR Acetaminophen 650 mg Q6HPRN PRN [place] 05/16/24 22:30 06/04/24 21:42 650 MG Pantoprazole Sodium 40 mg DAILY IV 05/17/24 10:00 06/04/24 09:35 40 MG Amino Acids 0 ml @ 0 mls/hr PER PHARMACY IV 05/17/24 08:30 Meropenem 50 ml @ 17 mls/hr Q8HR IV 05/18/24 14:00 06/04/24 21:41 17 MLS/HR Vancomycin HCl 0 ml @ 0 mls/hr UD IV 05/18/24 07:45 Metoprolol Tartrate 1.25 mg Q6HPRN PRN IV 05/18/24 16:00 05/18/24 16:17 1.25 MG Norepinephrine Bitartrate 32 mg/ Sodium Chloride 250 ml @ 0.938 mls/ hr Q24H IV 05/18/24 16:00 06/04/24 12:06 0.938 MLS/HR Amiodarone HCl 250 ml @ 16.667 mls/ hr Q15H IV 05/18/24 22:30 05/20/24 20:59 16.667 MLS/HR Potassium Chloride 100 ml @ 50 mls/hr Q2H IV 05/22/24 12:30 05/22/24 16:29 Cancel Diagnostic Test (Pha) 1 strip Q6HR 05/24/24 12:00 06/04/24 18:07 1 STRIP Insulin Human Regular FOLLOW SLIDING SCALE Q6HR SC 05/24/24 12:00 06/04/24 11:41 2 UNITS Dextrose 50 ml UD IV 05/24/24 12:00 Dexmedetomidine HCl 400 mcg/ Dextrose 100 ml @ 3.17 mls/hr Q24H IV 05/28/24 20:45 Hydralazine HCl 10 mg Q6HP PRN IV 05/30/24 16:15 06/03/24 04:02 10 MG Vancomycin HCl 200 ml @ 200 mls/hr DAILY@1500 IV 05/31/24 15:00 06/04/24 14:51 200 MLS/HR Enoxaparin Sodium 70 mg Q12HR SC 06/01/24 22:00 06/04/24 21:42 70 MG Labetalol HCl 10 mg Q2HPRN PRN IV 06/02/24 07:45 06/02/24 08:44 10 MG Micafungin Sodium 100 mg/Sodium Chloride 100 ml @ 100 mls/hr DAILY IV 06/03/24 10:00 06/04/24 09:54 100 MLS/HR Fat Emulsion Intravenous 50 ml/ Sodium Acetate 20 meq/Sodium Phosphate 10 meq/ Potassium Chloride 40 meq/ Magnesium Sulfate 16 meq/ Multivitamins 10 ml/Chromium/ Copper/Manganese/ Zinc 1 ml/Insulin Human Regular 18 units/Amino Acids/ Dextrose/Purified Water 1,647.68 ml @ 68 mls/hr [id number] IV 06/04/24 20:00 06/05/24 19:59 06/04/24 21:29 68 MLS/HR objective Gen.: Patient lying in bed in medical ICU. Sedated, intubated on mechanical ventilator. Head: Normocephalic, atraumatic. Eyes: PERRLA. Ears: Normal external anatomy. Throat: Endotracheal tube and orogastric tube in place. Neck: Supple, trachea midline. Chest: Transmitted breath sounds bilaterally. Decreased air entry bilaterally. No wheezing. Bibasilar crackles. Cardio vascular: Positive S1, positive S2. Regular rate and rhythm. Abdomen: Positive bowel sounds in all 4 quadrants. Soft, nontender, nondistended. : Muhammad in place. Normal external genitalia. Rectal: Deferred Skin: Warm, dry. Intact. Extremities: 2+ radial pulses bilaterally. No lower extremity edema. Neuro: Sedated. laboratory and microbiology Laboratory Tests 06/04/24 03:00 Test 06/04/24 03:00 Range/Units Serum Glucose 118 H 74-106 mg/dL Assessment/Plan Impression: Acute hypoxic respiratory failure On mechanical ventilator Abdominal pain due to recent robotic surgery hysterectomy and salpingo- oophorectomy History of breast cancer with bilateral mastectomies History of bowel surgery and ileostomy Anemia due to hemorrhage on hemodilution Shock Chronic pain syndrome Anemia Atrial fibrillation with RVR Bowel perforation with repeat exploratory laparotomy with ileostomy creation Events: Remains on vent support ABG reviewed. Alkalemia due to resp alkalosis. US Venous Doppler of RUE: Non-occlusive thrombus in right axillary vein and brachial vein. Occlusive thrombus in right cephalic vein. On Lovenox, therapeutic. On assist control with a respiratory rate of 18, tidal volume 450, PEEP of 5, FiO2 of 30%. On Fentanyl, Versed for sedation Has not tolerated taper of sedation When we taper sedation, patient becomes tachypneic and tachycardic. Recommend tracheostomy given prolonged ventilator dependence On pressors for hemodynamic support Levophed 2 mcg/min Titrate to keep mean arterial pressure greater than 65 mmHg. TPN for nutritional support. Monitor EVARISTO drain Continue antibiotics Monitor renal function Monitor hemoglobin closely. Transfuse if less than 7.0 grams/deciliter. Poor prognosis Consider Trach/PEG as means of liberation from mechanical ventilator. Labs and imaging reviewed Rest of plan as outlined below. Plan: s/p intubation on mechanical ventilator CXR image and report reviewed. Devices in place. Pulmonary vascular congestion. Right bibasilar airspace opacities. No pleural effusion or pneumothorax. ABG reviewed. On assist control with a respiratory rate of 18, tidal volume 450, PEEP of 5, FiO2 of 30%. Titrate FIO2 to keep O2 saturation above 92%. VAP bundle Daily ABG and CXR while intubated. Sedate for ventilatory synchrony Pressors as necessary for hemodynamic support Titrate to keep mean arterial pressure greater than 65 mmHg. Continue antibiotics. F/u cultures. Monitor hemoglobin Transfuse if less than 7.0 grams/deciliter Monitor renal function due to Acute kidney injury. Monitor electrolytes. Supplement as necessary. Surgery recommendations appreciated. Nutritional support. On TPN Accucheks, ISS. GI/DVT prophylaxis. Condition: Critical Prognosis: Poor given multiple comorbidities. Rest of plan per hospitalist and other consultants. A total of 35 minutes of critical care time was spent reviewing the patient record, examining the patient, making a diagnostic and therapeutic plan, discussing this plan with the medical personnel, following up on diagnostic studies and following the patient for clinical stability excluding any and all procedures. At least 50% of this time was spent in direct, [id number] contact. Thank you Dr Reid for allowing me to participate in this patient's care. Further recommendations will depend on patient's clinical course. Please do not hesitate to contact me if you have any questions or concerns. This medical document was created using an electronic medical record system with [employer] dictation system. Although this document has been carefully reviewed, there may still be some phonetic and typographical errors. These areas are purely typographical due to imperfections of the software programs, and do not reflect any compromise in the patient's medical care. Dietary Evaluation Review Comments: 1) Advance pt diet when medically feasible to a 2gmNa diet modified per [employer]IST[employer] PROFESSOR [employer]CH[employer]Y recommendations 2) Continue current plan of care Expected Outcomes/Goals: 1) Pt diet to advance 2) F/U in 2-3 days Plan discussed with: Other (YASH Lacey) Critical Care Time(min): 35 RG LEONE MD Jun 04, 2024 22:22
[2024-06-05] VITALS (109 sets, daily range): BP systolic 84–210; BP diastolic 18–107; PULSE 57–110; RESP 10–39; TEMP 97.7–100.4; O2SAT 94–100
[2024-06-05 03:45] LABS: Hematocrit 24.2 % (36.0-46.0); Hemoglobin 8.4 g/dL (12.2-16.2); Mean Corpuscular Hemoglobin 30.1 pg (28.0-32.0); Mean Corpuscular Hgb Conc. 34.6 g/dL (32.0-36.0); Mean Corpuscular Volume 86.9 fL (80.0-100.0); Platelet Count (auto) 295 10^3/uL (140-450); Red Blood Cells 2.78 10^6/uL (4.0-5.20); Red Cell Distribution Width 14.3 % (11.8-14.3); White Blood Cell 10.2 10^3/uL (4.4-10.8)
[2024-06-05 03:57] LABS: Basophils % (manual) 0 (0.0-2.0); Blast Cells 0; Metamyelocytes % 0; Promyelocytes % 0; Reactive Lymphocytes 0
[2024-06-05 04:06] LABS: Alanine Aminotransferase 20 U/L (7-40); Albumin 2.6 g/dL (3.2-4.8); Alkaline Phosphatase 146 U/L (46-116); Anion Gap 5 (5-15); Aspartate Aminotransferase 20 U/L (13-40); BUN/Creatinine Ratio 56.3 (10.0-20.0); Bilirubin, Total 1.5 mg/dL (0.2-1.0); Blood Urea Nitrogen 27 mg/dL (9-23); Calcium 9.5 mg/dL (8.7-10.4); Carbon Dioxide 24 mmol/L (20-31); Chloride 107 mmol/L (98-107); Magnesium 2.2 mg/dL (1.6-2.6); Phosphorus 3.1 mg/dL (2.4-5.1); Potassium 3.3 mmol/L (3.5-5.1); Sodium 136 mmol/L (136-145); Total Protein 5.7 g/dL (5.7-8.2)
[2024-06-05 04:19] LABS: Glucose 134 mg/dL (74-106)
[2024-06-05] MEDS: POTASSIUM CHL 20MEQ/100ML 100 ML IV ONE ×2 (04:49→11:00)
--- NOTE | 2024-06-05 04:50 | DVH ---
CHEST RADIOGRAPH Indication:vent Technique: Single frontal view of the chest was obtained COMPARISON: XY CHEST XRAY 1 VIEW on DOS: 06/04/24, XY CHEST PORTABLE on DOS: 06/03/24, XY CHEST BRITTA BLE on DOS: 05/31/24, XY CHEST XRAY 1 VIEW on DOS: 06/04/24 FINDINGS: Lines and Tubes: Endotracheal tube, enteric catheter, right central venous catheter and right chest p ort in satisfactory position. Lungs: Mild congestion Pleura: No effusion. No pneumothorax. Cardiomediastinal contours: Unremarkable Bones: Unremarkable IMPRESSION: Lines and tubes in satisfactory position. No significant interval change.
[2024-06-05 05:07] LABS: Band Neutrophils % (manual) 1; Eosinophils % (manual) 1 (0-7); Myelocytes % 3
[2024-06-05 05:08] LABS: Lymphocytes % (manual) 8 (10.0-50.0); Monocytes % (manual) 8 (0-12); Platelet Estimate Adequate
[2024-06-05 07:37] LABS: Base Excess -0.7 mmol/L (-2.0-3.0)
[2024-06-05] MEDS: IOHEXOL 300 MG/ML 100ML BOTTLE IJ ONE (08:00)
[2024-06-05] MEDS: POTASSIUM PHOSPHATE 26.4 MEQ in SODIUM CHL 0.9% 100 ML IV ONE (09:15)
--- NOTE | 2024-06-05 10:40 | DVHPN2 ---
Progress Note - Dictate Date Seen: Jun 05, 2024 Has the PT tested + for MRSA If YES, has PT been informed?: No Medical Necessity Reason Pt with a Central, PICC or Fol: Yes The following are medically ne: Muhammad Catheter Reason for muhammad catheter: Strict I&O Subjective Ms. Barrera is a 68 years old right-handed female with a history of hypertension, anemia, breast cancer, she was admitted to the [facility] on 05/07/2024 for scheduled hysterectomy and oophorectomy. Post surgically, she woke up with left-sided weakness, and MRI showed multiple stroke in the right MCA territory. During the hospital stay, she developed fall perforation, and she went through abdominal surgery on 05/16/2024 Because of ongoing intraperitoneal sepsis/peritonitis, the patient went through exploratory laparotomy on 05/24/2024 I have seen and examined the patient in the ICU, I have discussed with her nurse. She is responsive to light touch She moves the right arm than leg intermittently Nurse is down titrating sedation for CPAP She keeps spiking temperature Right pupil slightly bigger, both reactive to light Fentanyl 250 mcg/hour, Versed 8 mg/hour CBC, 05/16/2024: Metabolic acidosis, 05/17/2024: Metabolic acidosis, 05/18/2024: Metabolic acidosis URINALYSIS, 05/11/2024: WBC: 2, URINE LEUKOCYTE ESTERASE: NEGATIVE WBC/HB/PLT/MCV, 05/04: 5.1/10.7/119/98.3, 05/17/2024: 20.4/8.5/205/86.9 05/19/2024: 12.2/11.1/125/86.2, 05/20/2024: 8.1/10.5/113/86.1, 05/21/2024: 6.6/10.5/106/86.5, 05/26/2024: 9.6/9.2/184/93.8, 05/28/2024: 7.5/7/223/89.6, 05/29/24: 6.8/5.9/251/88.1, 05/30/2024: 7.4/7.7/268/86.6 PT/INR/FTT, 05/16/2024: 17.4/1.71/34.2 K, 05/09/2024: 3.9, 05/10/24:3.1, 05/12/2024: 3.4, 05/16/2024: 2.8 Lactic acid, 05/15/2024: 1.6, 05/16/2024: 1.5 HCO3, 05/23/2024: 35 Bun.Cr, 05/23/2024: 37/0.75 LIVER FUNCTION TESTS, 05/12/2024: UNREMARKABLE, 05/16/2024: Unremarkable TBI/AST/ALT/AP, 05/18/2024: 1.2/8/47, 05/19/2024: 3.1/04/23/2067, 05/23/2024: 3.1/48/35/170, 05/29/2024: 2.3/29/21/117 TG/HDL/LDL/HDL, 05/12/2024: 196/134/75/23 TSH, 05/12/2024: 2.01 Echocardiogram 05/14/2024: lvef 65% by visual estimate mild mitral regurg RV enlarged mild left atrium enlarged mild Extremity venous study, 06/01/2024: No left upper extremity DVT. Right internal jugular vein and subclavian vein are not visualized secondary to patient positioning. Nonocclusive thrombus is seen in the right axillary vein and brachial vein. Occlusive thrombus is present at the right cephalic vein. Carotid Doppler, 05/11/2024: 1. Occlusion of the right proximal ICA. 2. Greater than 50% stenosis of the right proximal ECA. 3. Greater than 50% stenosis of the left proximal ICA CT head, 05/11/2024: 1. Chronic lacunar infarct in right centrum semiovale. 2. Chronic periventricular ischemic changes. 3. Cerebral and cerebellar atrophy, likely age-related. 4. Advised further evaluation with MRI brain without contrast if clinically indicated CT abdomen/pelvis, 05/15/2024: Small bowel obstruction with evidence of perforation including free intraperitoneal fluid and air. Extensive subcutaneous emphysema likely secondary to bowel perforation CT abdomen/pelvis, 05/16/2024: 1. Sequelae of recent postsurgical changes as described above. Correlate with surgical history. 2. Pneumoperitoneum and free fluid in the abdomen and pelvis. 3. Large collection containing fluid and gas, predominantly in the right hemiabdomen. There is GI contrast extending into this collection from an adjacent small bowel loop. There is a component of this collection extending adjacent to the anterior superior aspect of the liver. 4. Moderate right hydronephrosis and hydroureter. The distal right ureter appears to be compressed by the large fluid collection in the right hemiabdomen. No obstructing calculus. 5. Dilated small bowel loops in the left hemiabdomen with suspected small-bowel obstruction. 6. Prominent subcutaneous edema in the ventral abdominal wall and extending caudally into the inguinal regions bilaterally, peroneal region, and anterior aspect of the left thigh. 7. Small bilateral pleural effusions with overlying atelectasis. 8. Additional findings as detailed above. CT abdomen, 05/23/2024: Postsurgical changes of the ventral abdomen with interval improvement in the diffuse soft tissue edema and ventral abdominal, pelvis and upper thigh subcutaneous emphysema. Interval significant decrease in size of the loculated collection within the right hemiabdomen and pelvis with small residual. Interval placement of drainage catheters terminating over the left upper abdominal quadrant and left hemipelvis as detailed above. Interval development of small to moderate ascites. Wall thickening of fluid-filled nondistended small bowel loops of the anterior mid to lower abdomen which may be from the surrounding ascites versus enteritis. Additional findings as above CT abdomen staff pelvis, 05/30/2024: 1. Radiodense contrast in the mid abdomen associated with surgical sutures. It is unclear whether this is in bowel or represents a bowel leak. Clinical correlation and continued follow-up is recommended. 2. Right pelvic, anterior abdominal wall and left abdomen drainage catheters in place. No definite abscess identified. 3. Extensive post postsurgical changes of the bowel. 4. Small amount of abdominal and pelvic ascities. 5. Small to moderate right pleural effusion. CTA neck, head, 05/14/24: 1. Complete occlusion of the right cervical internal carotid artery. There may be trickle flow in distal right cervical ICA. 2. Poor flow in the right intracranial ICA likely retrograde perfusion through the contralateral left side posterior circulation through the communicating arteries. 3. High-grade stenosis at the left carotid bulb with at least 70-80% stenosis. Moderate short-segment stenosis in the left proximal ICA with at least 60% stenosis. MRI HEAD, 05/11/2024: 1. Multiple foci of restricted diffusion in the right centrum semiovale and along the right superior frontal lobe compatible with acute to subacute infarcts. There is no evidence of acute hemorrhage or significant surrounding edema. 2. Absence of flow void in the intracranial portions of the right internal carotid artery which is likely occluded. vital signs Vital Sign Date Time Temp Pulse Resp B/P (MAP) Pulse Ox O2 Delivery O2 Flow Rate FiO2 06/05/24 10:23 110 199/49 06/05/24 10:12 19 100 30 06/05/24 09:45 99.7 211.5 06/05/24 08:00 Mechanical Ventilator+ Total Intake and Output 06/04/24 06/04/24 06/05/24 15:00 23:00 07:00 Intake Total 893.876 ml 1353.566 ml 952.313 ml Output Total 1210 ml 1455 ml Balance 893.876 ml 143.566 ml -502.687 ml medications Current Medications Medications Dose Ordered Sig/Nora Route Start Time Stop Time Status Last Admin Dose Admin Ondansetron HCl 4 mg Q4HP PRN IV 05/07/24 16:30 05/16/24 05:55 4 MG Fentanyl Citrate 250 ml @ 2.5 mls/hr Q24H IV 05/16/24 14:00 06/05/24 08:03 25 MLS/HR Midazolam HCl 50 ml @ 1 mls/hr Q24H IV 05/16/24 21:00 06/05/24 05:54 8 MLS/HR Phenylephrine HCl 250 ml @ 30 mls/hr Q8H20M IV 05/16/24 21:15 05/17/24 06:03 30 MLS/HR Acetaminophen 650 mg Q6HPRN PRN MS 05/16/24 22:30 06/04/24 21:42 650 MG Pantoprazole Sodium 40 mg DAILY IV 05/17/24 10:00 06/05/24 08:06 40 MG Amino Acids 0 ml @ 0 mls/hr PER PHARMACY IV 05/17/24 08:30 Meropenem 50 ml @ 17 mls/hr Q8HR IV 05/18/24 14:00 06/05/24 05:48 17 MLS/HR Vancomycin HCl 0 ml @ 0 mls/hr UD IV 05/18/24 07:45 Metoprolol Tartrate 1.25 mg Q6HPRN PRN IV 05/18/24 16:00 05/18/24 16:17 1.25 MG Norepinephrine Bitartrate 32 mg/ Sodium Chloride 250 ml @ 0.938 mls/ hr Q24H IV 05/18/24 16:00 06/04/24 12:06 0.938 MLS/HR Amiodarone HCl 250 ml @ 16.667 mls/ hr Q15H IV 05/18/24 22:30 05/20/24 20:59 16.667 MLS/HR Potassium Chloride 100 ml @ 50 mls/hr Q2H IV 05/22/24 12:30 05/22/24 16:29 Cancel Diagnostic Test (Pha) 1 strip Q6HR 05/24/24 12:00 06/05/24 05:49 1 STRIP Insulin Human Regular FOLLOW SLIDING SCALE Q6HR SC 05/24/24 12:00 06/05/24 00:40 2 UNITS Dextrose 50 ml UD IV 05/24/24 12:00 Dexmedetomidine HCl 400 mcg/ Dextrose 100 ml @ 3.17 mls/hr Q24H IV 05/28/24 20:45 Hydralazine HCl 10 mg Q6HP PRN IV 05/30/24 16:15 06/03/24 04:02 10 MG Vancomycin HCl 200 ml @ 200 mls/hr DAILY@1500 IV 05/31/24 15:00 06/04/24 14:51 200 MLS/HR Enoxaparin Sodium 70 mg Q12HR SC 06/01/24 22:00 06/05/24 08:06 70 MG Labetalol HCl 10 mg Q2HPRN PRN IV 06/02/24 07:45 06/05/24 10:23 10 MG Micafungin Sodium 100 mg/Sodium Chloride 100 ml @ 100 mls/hr DAILY IV 06/03/24 10:00 06/05/24 08:05 100 MLS/HR Fat Emulsion Intravenous 50 ml/ Sodium Acetate 20 meq/Sodium Phosphate 10 meq/ Potassium Chloride 40 meq/ Magnesium Sulfate 16 meq/ Multivitamins 10 ml/Chromium/ Copper/Manganese/ Zinc 1 ml/Insulin Human Regular 18 units/Amino Acids/ Dextrose/Purified Water 1,647.68 ml @ 68 mls/hr [id number] IV 06/04/24 20:00 06/05/24 19:59 06/04/24 21:29 68 MLS/HR Fat Emulsion Intravenous 50 ml/ Sodium Phosphate 40 meq/Potassium Acetate 50 meq/ Magnesium Sulfate 16 meq/ Multivitamins 10 ml/Chromium/ Copper/Manganese/ Zinc 1 ml/Insulin Human Regular 18 units/Amino Acids/ Dextrose/Purified Water 1,650.18 ml @ 68 mls/hr [id number] IV 06/05/24 20:00 06/06/24 19:59 objective General: the patient is well developed and nourished. No acute distress. ABDOMEN: Status post surgery MENTAL STATUS: Subjective. CRANIAL NERVES: Pupils are round and reactivel. There are corneal reflexes and doll's eyes phenomenon. No signs of facial weakness. There are weak gagging or coughing reflexes SENSATION: No responses to pain stimuli. MOTOR: Normal tone in the upper and lower extremity. Normal muscle bulk. No fasciculations. No spontaneous movement. REFLEXES: Deep tendon reflexes are symmetrical. No pathological reflexes. CEREBELLAR/COORDINATION: Deferred GAIT/STATION: deferred. laboratory and microbiology Laboratory Tests 06/05/24 03:10 Test 06/05/24 03:10 Range/Units Serum Glucose 134 H 74-106 mg/dL Problem List Pelvic prolapse, can count urethrovesical junction, surgery repair on 05/07/2024 (Robotic supracervical hysterectomy bilateral salpingo-oophorectomy colposcopic pexy cystocele repair urethral sling partial vaginectomy) Bowel obstruction with perforation, intra-abdominal abscess, dense at [place], status post surgery 05/16/2024 Sepsis/septic shock Metabolic encephalopathy Acute right MCA territory multiple strokes Left hemiparesis Right ICA occlusion Left ICA severe stenosis Anemia, with unstable H&H Status post oophorectomy, hysterectomy Anisocoria, uncertain clinical significance DVT Assessment/Plan Monitoring Supportive treatment ICU care Stabilize vitals/pressor drip Respiratory support/vent management IV antibiotics Oxygen Lipitor 20 mg daily (NPO) TPN Up to chair Physical therapy Further address bilateral carotid stenosis CLARA on discharge Surgery on case Okay to use Lovenox for DVT from neurologic point of view More recommendation per clinical course This medical document was created using an electronic medical record system with [employer] dictation system. Although this document has been carefully reviewed, there may still be some phonetic and typographical errors. These areas are purely typographical due to imperfections of the software programs, and do not reflect any compromise in the patient's medical care Prognosis guarded Dietary Evaluation Review Comments: 1) Advance pt diet when medically feasible to a 2gmNa diet modified per RELIABILITY TECHNICIAN recommendations 2) Continue current plan of care Expected Outcomes/Goals: 1) Pt diet to advance 2) F/U in 2-3 days Plan discussed with: Other BRYAN FLORES MD Jun 05, 2024 10:40
--- NOTE | 2024-06-05 13:54 | DVHPN2 ---
Subjective Intubated and sedated Still +significant drainage from abd wound and drains Temp 100.2 Reviewed: Care Plan, H&P, Labs, Medications, Previous Orders, Radiology Changes from previous H/P or p: Changes General: Per HPI Eyes: No Pain, No Vision change, No Conjunctivae inflammation, No Eyelid inflammation, No Other, No Redness ENT: No Ear pain, No Ear discharge, No Nose pain, No Nose discharge, No Nose congestion, No Mouth pain, No Mouth swelling, No Throat pain, No Throat swelling, No Other Cardiovascular: No Chest Pain, No Palpitations, No Orthopnea, No Paroxysmal Noc. Dyspnea, No Edema, No Lt Headedness, No Other Respiratory: No Cough, No Dry, No Shortness of breath, No SOB with excertion, No Wheezing, No Hemoptysis, No Pleuritic Pain, No Sputum, No Other Gastrointestinal: Nausea Genitourinary: No Dysuria, No Frequency, No Incontinence, No Hematuria, No Retention, No Other Musculoskeletal: No other, No neck pain, No shoulder pain, No arm pain, No back pain, No hand pain, No leg pain, No foot pain Skin: No Rash, No Lesions, No Jaundice, No Bruising, No Other Objective Vitals Vital Signs Date Time Temp Pulse Resp B/P (MAP) Pulse Ox O2 Delivery O2 Flow Rate FiO2 06/05/24 13:47 106 184/68 06/05/24 12:45 100.0 12 98 212.0 06/05/24 12:00 30 06/05/24 12:00 Mechanical Ventilator+ Intake/Output Intake and Output 06/05/24 07:00 Intake Total 3199.755 ml Output Total 2665 ml Balance 534.755 ml IV Total 2899.755 ml Blood Product 300 ml Output Urine Total 2250 ml Stool Total 40 ml Gastric Drainage Total 300 ml Drainage Total 75 ml General Appearance: moderate distress, Other (Intubated and sedated) HEENT: Atraumatic, PERRLA, Other (Pupils equal, 4 mm, reactive to light to 3 mm) Lungs: Clear to auscultation, Normal air movement, Other (Mechanical ventilation) Cardiovascular: Regular rate, Normal S1, Normal S2 Abdomen: Other (Ileostomy with drainage. 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) Skin: Dry, Intact, Other (Surgical incision dry and intact) Psych/Mental Status: Mental status NL, Mood NL Medications Current Medications Medications Dose Ordered Sig/Nora Route Start Time Stop Time Status Last Admin Dose Admin Ondansetron HCl 4 mg Q4HP PRN IV 05/07/24 16:30 05/16/24 05:55 4 MG Fentanyl Citrate 250 ml @ 2.5 mls/hr Q24H IV 05/16/24 14:00 06/05/24 08:03 25 MLS/HR Midazolam HCl 50 ml @ 1 mls/hr Q24H IV 05/16/24 21:00 06/05/24 05:54 8 MLS/HR Phenylephrine HCl 250 ml @ 30 mls/hr Q8H20M IV 05/16/24 21:15 05/17/24 06:03 30 MLS/HR Acetaminophen 650 mg Q6HPRN PRN PA 05/16/24 22:30 06/04/24 21:42 650 MG Pantoprazole Sodium 40 mg DAILY IV 05/17/24 10:00 06/05/24 08:06 40 MG Amino Acids 0 ml @ 0 mls/hr PER PHARMACY IV 05/17/24 08:30 Meropenem 50 ml @ 17 mls/hr Q8HR IV 05/18/24 14:00 06/05/24 05:48 17 MLS/HR Vancomycin HCl 0 ml @ 0 mls/hr UD IV 05/18/24 07:45 Metoprolol Tartrate 1.25 mg Q6HPRN PRN IV 05/18/24 16:00 05/18/24 16:17 1.25 MG Norepinephrine Bitartrate 32 mg/ Sodium Chloride 250 ml @ 0.938 mls/ hr Q24H IV 05/18/24 16:00 06/04/24 12:06 0.938 MLS/HR Amiodarone HCl 250 ml @ 16.667 mls/ hr Q15H IV 05/18/24 22:30 05/20/24 20:59 16.667 MLS/HR Potassium Chloride 100 ml @ 50 mls/hr Q2H IV 05/22/24 12:30 05/22/24 16:29 Cancel Diagnostic Test (Pha) 1 strip Q6HR 05/24/24 12:00 06/05/24 12:19 1 STRIP Insulin Human Regular FOLLOW SLIDING SCALE Q6HR SC 05/24/24 12:00 06/05/24 12:30 2 UNITS Dextrose 50 ml UD IV 05/24/24 12:00 Dexmedetomidine HCl 400 mcg/ Dextrose 100 ml @ 3.17 mls/hr Q24H IV 05/28/24 20:45 06/05/24 10:58 3.17 MLS/HR Hydralazine HCl 10 mg Q6HP PRN IV 05/30/24 16:15 06/05/24 11:53 10 MG Vancomycin HCl 200 ml @ 200 mls/hr DAILY@1500 IV 05/31/24 15:00 06/04/24 14:51 200 MLS/HR Enoxaparin Sodium 70 mg Q12HR SC 06/01/24 22:00 06/05/24 08:06 70 MG Labetalol HCl 10 mg Q2HPRN PRN IV 06/02/24 07:45 06/05/24 13:47 10 MG Micafungin Sodium 100 mg/Sodium Chloride 100 ml @ 100 mls/hr DAILY IV 06/03/24 10:00 06/05/24 08:05 100 MLS/HR Fat Emulsion Intravenous 50 ml/ Sodium Acetate 20 meq/Sodium Phosphate 10 meq/ Potassium Chloride 40 meq/ Magnesium Sulfate 16 meq/ Multivitamins 10 ml/Chromium/ Copper/Manganese/ Zinc 1 ml/Insulin Human Regular 18 units/Amino Acids/ Dextrose/Purified Water 1,647.68 ml @ 68 mls/hr [id number] IV 06/04/24 20:00 06/05/24 19:59 06/04/24 21:29 68 MLS/HR Fat Emulsion Intravenous 50 ml/ Sodium Phosphate 40 meq/Potassium Acetate 50 meq/ Magnesium Sulfate 16 meq/ Multivitamins 10 ml/Chromium/ Copper/Manganese/ Zinc 1 ml/Insulin Human Regular 18 units/Amino Acids/ Dextrose/Purified Water 1,650.18 ml @ 68 mls/hr [id number] IV 06/05/24 20:00 06/06/24 19:59 Laboratory Results Laboratory Tests 06/05/24 03:10 Chemistry Test 06/05/24 03:10 Albumin 2.6 g/dL (3.2-4.8) L Calcium Level 9.5 mg/dL (8.7-10.4) Magnesium Level 2.2 mg/dL (1.6-2.6) Phosphorus Level 3.1 mg/dL (2.4-5.1) Total Protein 5.7 g/dL (5.7-8.2) LFT Test 06/05/24 03:10 Alanine Aminotransferase (ALT) 20 U/L (7-40) Alkaline Phosphatase 146 U/L (46-116) H Aspartate Amino Transferase (AST) 20 U/L (13-40) Total Bilirubin 1.5 mg/dL (0.2-1.0) H Urinalysis Test 05/11/24 16:18 Urine Color Yellow (Yellow) Urine Clarity Clear (Clear) Urine pH 6.0 (5.0-9.0) Urine Specific Cherry 1.020 (1.001-1.035) Urine Protein 1+ (Negative) H Urine Ketones 4+ (Negative) H Urine Blood Trace /uL (Negative) H Urine Nitrite Negative (Negative) Urine Bilirubin Negative (Negative) Urine Urobilinogen Normal mg/dL (Negative) Urine Leukocyte Esterase Negative /uL (Negative) Urine RBC 2 /hpf (0 - 4) Urine WBC 2 /hpf (0 - 5) Urine Squamous Epithelial Cells Few /hpf (<5) Urine Bacteria None seen /hpf (None Seen) Urine Mucus Few (None Seen) Urine Glucose Normal mg/dL (Normal) Blood Gas Results Test 06/05/24 07:23 Arterial Blood pH 7.435 (7.350-7.450) FiO2 % 30.0 Microbiology Microbiology Date/Time Source Procedure Growth Status 06/02/24 16:09 Urine - [place] Urine Culture - Final Complete 06/02/24 15:50 Abdomen Gram Stain - Final Resulted 06/02/24 15:50 Abdomen Wound Culture - Preliminary Resulted 06/02/24 11:02 Blood Blood Culture - Preliminary NO GROWTH AFTER 72 HOURS OF INCUBATION. Resulted 05/16/24 14:20 Sputum Gram Stain - Final Complete 05/16/24 14:20 Respiratory Culture - Final Yeast, not Shawanda albicans Complete Assessment/Plan Assessment/Plan Robotic surgery hysterectomy and salpingo-oophorectomy complicated by Acute CVA Acute CVA w LUE hemiparesis Bowel perforation with repeat exploratory laparotomy with ileostomy creation History of breast cancer with bilateral mastectomies Afib RVR Acute hypoxic respiratory failure Mechanical intubation Exploratory laparotomy, drainage of intraabdominal abscess, thorough peritoneal lavage with reinforcement of the anastomotic location of the previous anastomosis as well as a diverting loop ileostomy on 05/24/24 Anemia Right upper extremity DVT Plan Mechanical ventilation TPN IV antibiotics: Vancomycin + Meropenem No vasopressors Sedation prn GI Prophylaxis: Protonix Transfuse blood prn 05/29/24: Transfuse 1 unit RBCs for Hb 5.9 Lasix 20 mg IV x1 Check Hb after transfusion Off pressors Antibiotics: Meropenem, Vanco, Micafungin Amiodarone IV Taper sedation down as tolerated CXR: Clear TPN Protonix 05/30/24: Discussed with Dr. Fritz Lake Will do CT ABD pelvis to follow up on abscess IV antibiotics Taper sedation down C-PAP? per Dr. Poon 05/31/24: CT abdomen showed no fluid collection IV antibiotics: Meropenem, Vancomycin & Micafungin Amiodarone Dr. Fritz Lake recommended to continue medical treatment, no surgical intervention Sedation as needed TPN 06/01/2024: Start Lovenox 70 mg subQ q.[address] Lake and Neurology IV antibiotics meropenem and vancomycin Micafungin TPN Tapered down sedation as tolerated 06/02/24: Fever Yeast in cultures: Micafungin IV antibiotics: Meropenem & Vanco TPN RUE DVT: Lovenox Normocytic anemia 7.9 Consult ID [place] [employer] Afib: Amiodarone drip Discussed with her sister over the phone 06/03/2024: IV antibiotics: Meropenem and vancomycin IV antifungal: Micafungin TPN Amiodarone IV Dr. Fritz Lake for surgery is on the case 06/04/24: Abdominal infection: IV antibiotics: Meropenem, Vanco and Micafungin TPN Amiodarone Surgery on case: Will discuss with Dr. Fritz Lake regarding tracheostomy ID consult is pending Discussed with sister over the phone, family is agreeable with the trach Anemia: Transfuse one unit RBCs 06/05/24: Hypokalemia: Replace IV antibiotics: Meropenem and Vanco IV antifungals: Micafungin TPN Amiodarone Discussed with Dr. [place] regarding tracheostomy Remove central line PICC line Plan discussed with: Other My Orders Orders - BARI MOORE MD Procedure Category Date Status Time Pt Request For Service PT 06/04/24 Logged 13:45 Chest Portable XY 06/05/24 Resulted 06:00 Communication Order ORDERS 06/04/24 Transmitted 20:15 Date of Service: Jun 05, 2024 Billing Provider: BARI MOORE MD Common Visit Codes: NOT BILLABLE BARI MOORE MD Jun 05, 2024 13:54
--- NOTE | 2024-06-05 15:20 | DVHPN2 ---
Progress Note Date Seen: Jun 05, 2024 Has the PT tested + for MRSA If YES, has PT been informed?: No Medical Necessity Reason Pt with a Central, PICC or Fol: Yes The following are medically ne: Muhammad Catheter Reason for muhammad catheter: Strict I&O Objective vital signs Vital Sign Date Time Temp Pulse Resp B/P (MAP) Pulse Ox O2 Delivery O2 Flow Rate FiO2 06/05/24 14:32 87 19 179/41 (87) 100 30 06/05/24 12:45 100.0 212.0 06/05/24 12:00 Mechanical Ventilator+ Total Intake and Output 06/04/24 06/04/24 06/05/24 15:00 23:00 07:00 Intake Total 893.876 ml 1353.566 ml 1006.063 ml Output Total 1210 ml 1455 ml Balance 893.876 ml 143.566 ml -448.937 ml medications Current Medications Medications Dose Ordered Sig/Nora Route Start Time Stop Time Status Last Admin Dose Admin Ondansetron HCl 4 mg Q4HP PRN IV 05/07/24 16:30 06/05/24 14:23 4 MG Fentanyl Citrate 250 ml @ 2.5 mls/hr Q24H IV 05/16/24 14:00 06/05/24 08:03 25 MLS/HR Midazolam HCl 50 ml @ 1 mls/hr Q24H IV 05/16/24 21:00 06/05/24 14:44 5 MLS/HR Phenylephrine HCl 250 ml @ 30 mls/hr Q8H20M IV 05/16/24 21:15 05/17/24 06:03 30 MLS/HR Acetaminophen 650 mg Q6HPRN PRN [place] 05/16/24 22:30 06/04/24 21:42 650 MG Pantoprazole Sodium 40 mg DAILY IV 05/17/24 10:00 06/05/24 08:06 40 MG Amino Acids 0 ml @ 0 mls/hr PER PHARMACY IV 05/17/24 08:30 Meropenem 50 ml @ 17 mls/hr Q8HR IV 05/18/24 14:00 06/05/24 14:43 17 MLS/HR Vancomycin HCl 0 ml @ 0 mls/hr UD IV 05/18/24 07:45 Metoprolol Tartrate 1.25 mg Q6HPRN PRN IV 05/18/24 16:00 05/18/24 16:17 1.25 MG Norepinephrine Bitartrate 32 mg/ Sodium Chloride 250 ml @ 0.938 mls/ hr Q24H IV 05/18/24 16:00 06/04/24 12:06 0.938 MLS/HR Amiodarone HCl 250 ml @ 16.667 mls/ hr Q15H IV 05/18/24 22:30 05/20/24 20:59 16.667 MLS/HR Potassium Chloride 100 ml @ 50 mls/hr Q2H IV 05/22/24 12:30 05/22/24 16:29 Cancel Diagnostic Test (Pha) 1 strip Q6HR 05/24/24 12:00 06/05/24 12:19 1 STRIP Insulin Human Regular FOLLOW SLIDING SCALE Q6HR SC 05/24/24 12:00 06/05/24 12:30 2 UNITS Dextrose 50 ml UD IV 05/24/24 12:00 Dexmedetomidine HCl 400 mcg/ Dextrose 100 ml @ 3.17 mls/hr Q24H IV 05/28/24 20:45 06/05/24 10:58 3.17 MLS/HR Hydralazine HCl 10 mg Q6HP PRN IV 05/30/24 16:15 06/05/24 11:53 10 MG Vancomycin HCl 200 ml @ 200 mls/hr DAILY@1500 IV 05/31/24 15:00 06/04/24 14:51 200 MLS/HR Enoxaparin Sodium 70 mg Q12HR SC 06/01/24 22:00 06/05/24 08:06 70 MG Labetalol HCl 10 mg Q2HPRN PRN IV 06/02/24 07:45 06/05/24 13:47 10 MG Micafungin Sodium 100 mg/Sodium Chloride 100 ml @ 100 mls/hr DAILY IV 06/03/24 10:00 06/05/24 08:05 100 MLS/HR Fat Emulsion Intravenous 50 ml/ Sodium Acetate 20 meq/Sodium Phosphate 10 meq/ Potassium Chloride 40 meq/ Magnesium Sulfate 16 meq/ Multivitamins 10 ml/Chromium/ Copper/Manganese/ Zinc 1 ml/Insulin Human Regular 18 units/Amino Acids/ Dextrose/Purified Water 1,647.68 ml @ 68 mls/hr [id number] IV 06/04/24 20:00 06/05/24 19:59 06/04/24 21:29 68 MLS/HR Fat Emulsion Intravenous 50 ml/ Sodium Phosphate 40 meq/Potassium Acetate 50 meq/ Magnesium Sulfate 16 meq/ Multivitamins 10 ml/Chromium/ Copper/Manganese/ Zinc 1 ml/Insulin Human Regular 18 units/Amino Acids/ Dextrose/Purified Water 1,650.18 ml @ 68 mls/hr [id number] IV 06/05/24 20:00 06/06/24 19:59 Hydralazine HCl 20 mg Q6HR IV 06/05/24 18:00 laboratory and microbiology Laboratory Tests 06/05/24 03:10 Test 06/05/24 03:10 Range/Units Serum Glucose 134 H 74-106 mg/dL Microbiology Date/Time Source Procedure Growth Status 06/02/24 16:09 Urine - Muhammad Port Urine Culture - Final Complete 06/02/24 15:50 Abdomen Gram Stain - Final Resulted 06/02/24 15:50 Abdomen Wound Culture - Preliminary Resulted 06/02/24 11:02 Blood Blood Culture - Preliminary NO GROWTH AFTER 72 HOURS OF INCUBATION. Resulted 05/16/24 14:20 Sputum Gram Stain - Final Complete 05/16/24 14:20 Respiratory Culture - Final Yeast, not Shawanda albicans Complete Problem List/Assessment/Plan Problem List/Assessment/Plan INTUBATED CPAP TRIAL ONGOING TEMP 100 WBC WNL ABD SOFT DRAINS IN PLACE DRESSING ABD WOUND DRAINAGE NOTED AND EXPECTED BUT LESS CONDITION GUARDED ILEOSTOMY VIABLE AND FUNCTIONAL NURSE AT BEDSIDE CONTINUE SUPPORTIVE CARE PULM EVAL ONGOING CONSIDER TRACH BASED ON ONGOING EVAL AND FAMILY TO BE INFORMED FOR CONSENT Plan discussed with: Patient, Other Dietary Evaluation Review Comments: 1) Advance pt diet when medically feasible to a 2gmNa diet modified per PROTECTION MGR recommendations 2) Continue current plan of care Expected Outcomes/Goals: 1) Pt diet to advance 2) F/U in 2-3 days SHEY COVARRUBIAS MD Jun 05, 2024 15:20
[2024-06-05] MEDS: hydrALAZINE HCL 20 MG/ML VL IV SCH (18:00)
--- NOTE | 2024-06-05 18:27 | DVHPN2 ---
Consult Progress Note Date Seen: Jun 05, 2024 Subjective Patient reports: Other (having dropped blood pressure overnight , off blood pressure support but is on CPAP trials . fever today of 100.4 , hemoglobin of 8.4 after transfusion ) Objective vital signs Vital Sign Date Time Temp Pulse Resp B/P (MAP) Pulse Ox O2 Delivery O2 Flow Rate FiO2 06/05/24 16:45 98.2 70 17 93/32 (52) 100 98.2 06/05/24 16:00 Mechanical Ventilator+ 30 30 Total Intake and Output 06/04/24 06/04/24 06/05/24 15:00 23:00 07:00 Intake Total 893.876 ml 1353.566 ml 1006.063 ml Output Total 1210 ml 1455 ml Balance 893.876 ml 143.566 ml -448.937 ml medications Current Medications Medications Dose Ordered Sig/Nora Route Start Time Stop Time Status Last Admin Dose Admin Ondansetron HCl 4 mg Q4HP PRN IV 05/07/24 16:30 06/05/24 14:23 4 MG Fentanyl Citrate 250 ml @ 2.5 mls/hr Q24H IV 05/16/24 14:00 06/05/24 08:03 25 MLS/HR Midazolam HCl 50 ml @ 1 mls/hr Q24H IV 05/16/24 21:00 06/05/24 18:19 12 MLS/HR Phenylephrine HCl 250 ml @ 30 mls/hr Q8H20M IV 05/16/24 21:15 05/17/24 06:03 30 MLS/HR Acetaminophen 650 mg Q6HPRN PRN [place] 05/16/24 22:30 06/04/24 21:42 650 MG Pantoprazole Sodium 40 mg DAILY IV 05/17/24 10:00 06/05/24 08:06 40 MG Amino Acids 0 ml @ 0 mls/hr PER PHARMACY IV 05/17/24 08:30 Meropenem 50 ml @ 17 mls/hr Q8HR IV 05/18/24 14:00 06/05/24 14:43 17 MLS/HR Vancomycin HCl 0 ml @ 0 mls/hr UD IV 05/18/24 07:45 Cancel Metoprolol Tartrate 1.25 mg Q6HPRN PRN IV 05/18/24 16:00 05/18/24 16:17 1.25 MG Norepinephrine Bitartrate 32 mg/ Sodium Chloride 250 ml @ 0.938 mls/ hr Q24H IV 05/18/24 16:00 06/04/24 12:06 0.938 MLS/HR Amiodarone HCl 250 ml @ 16.667 mls/ hr Q15H IV 05/18/24 22:30 05/20/24 20:59 16.667 MLS/HR Potassium Chloride 100 ml @ 50 mls/hr Q2H IV 05/22/24 12:30 05/22/24 16:29 Cancel Diagnostic Test (Pha) 1 strip Q6HR 05/24/24 12:00 06/05/24 18:07 1 STRIP Insulin Human Regular FOLLOW SLIDING SCALE Q6HR SC 05/24/24 12:00 06/05/24 18:19 2 UNITS Dextrose 50 ml UD IV 05/24/24 12:00 Dexmedetomidine HCl 400 mcg/ Dextrose 100 ml @ 3.17 mls/hr Q24H IV 05/28/24 20:45 06/05/24 10:58 3.17 MLS/HR Hydralazine HCl 10 mg Q6HP PRN IV 05/30/24 16:15 06/05/24 11:53 10 MG Enoxaparin Sodium 70 mg Q12HR SC 06/01/24 22:00 06/05/24 08:06 70 MG Labetalol HCl 10 mg Q2HPRN PRN IV 06/02/24 07:45 06/05/24 13:47 10 MG Micafungin Sodium 100 mg/Sodium Chloride 100 ml @ 100 mls/hr DAILY IV 06/03/24 10:00 06/05/24 08:05 100 MLS/HR Fat Emulsion Intravenous 50 ml/ Sodium Acetate 20 meq/Sodium Phosphate 10 meq/ Potassium Chloride 40 meq/ Magnesium Sulfate 16 meq/ Multivitamins 10 ml/Chromium/ Copper/Manganese/ Zinc 1 ml/Insulin Human Regular 18 units/Amino Acids/ Dextrose/Purified Water 1,647.68 ml @ 68 mls/hr [id number] IV 06/04/24 20:00 06/05/24 19:59 06/04/24 21:29 68 MLS/HR Fat Emulsion Intravenous 50 ml/ Sodium Phosphate 40 meq/Potassium Acetate 50 meq/ Magnesium Sulfate 16 meq/ Multivitamins 10 ml/Chromium/ Copper/Manganese/ Zinc 1 ml/Insulin Human Regular 18 units/Amino Acids/ Dextrose/Purified Water 1,650.18 ml @ 68 mls/hr [id number] IV 06/05/24 20:00 06/06/24 19:59 Hydralazine HCl 20 mg Q6HR IV 06/05/24 18:00 Physical Exam: - General: NAD - Neck: Supple. No masses. - HEENT: PERRL. Normal lids and conjunctiva. Moist mucous membranes. Oropharynx without lesions, exudates or excessive erythema. Normal appearance of the external aspects of the nose and ears. - Heart: Regular rhythm, normal rate. No murmur. No lower extremity edema. - Lungs: Normal respiratory effort. Clear to auscultation bilaterally. No wheezes. No crackles. - Abdomen: Soft. Non-tender. Non-distended. No masses or abdominal hernia. - MSK: No digital cyanosis. Normal strength and tone in all 4 limbs. - Skin: Warm and dry, no rashes. - Neuro: Alert. No facial droop or slurred speech. EO movements intact. Sensation intact to soft touch in all 4 limbs. L sided weakness in UE and LE - Psych: Appropriate mood.intubated and sedated laboratory and microbiology Laboratory Tests 06/05/24 03:10 Test 06/05/24 03:10 Range/Units Serum Glucose 134 H 74-106 mg/dL Problem List/Assessment/Plan Problems(with codes): (1) Fungal infection (2) Intra-abdominal abscess (3) SBO (small bowel obstruction) (4) Stroke (5) Hypertension (6) Anemia (7) Breast cancer Problem List/Assessment/Plan Assessment and Plan: ID Problem List: 1. Small bowel obstruction with perforation 2. Septic shock 3. Stroke, right MCA territory 4. Hypertension 5. Anemia 6. Breast cancer 7. Bilateral mastectomy 8. Post-surgical complications (including ileostomy creation) 9. Fungal infection (yeast not Shawanda albicans) 10. Strep Viridans Group B infection Assessment: This is a 68-year-old female, with a significant past medical history of anemia, hypertension, breast cancer status post bilateral mastectomy, and a 50 pack-year smoking history (now quit), who was initially admitted for a robotic hysterectomy with bilateral salpingectomy, removal of a right ovarian mass, cystocele repair with urethral sling. Postoperatively, she developed hypertension and nausea, necessitating overnight admission. Post-admission, she endured a cerebrovascular accident primarily impacting the right MCA territory and contributing to left-sided weakness. Subsequent evaluations included MRI and CT head scans that confirmed multiple acute and subacute infarcts. Later complications included progression to an acute small bowel obstruction with perforation, leading to emergent exploratory laparotomy and subsequent ileostomy creation. Cultures from the surgical sites revealed a non-Shawanda albicans yeast and Strep Viridans Group B infection. The patient continues to require ICU support, primarily due to ongoing septic shock and the need for ventilatory assistance. Patient remains intubated with vasopressors being weaned off. Recent WBC count was 16.9 and hemoglobin levels have fluctuated, dropping as low as 5.9. She has been transitioned to a multi-antibiotic regimen including meropenem, vancomycin, and TPN for nutritional support. 06/04: hemaglobin of 6.9, suspect ongoing blood loss. Preliminary blood cultures are no growth for 48 hours as well as wound and urine cultures with no growth 06/05: hemaglobin of 8.4 after blood transfusion. Repeat cultures of the abdomen is showing no organisms Plan: 1. Continue current antibiotics: meropenem 2. Continue micafungin for fungal infection, may consider switching if yeast infection persists but will hold off for now 3. check blood cultures and check surgical site wound culture 4. Provide ICU support with ventilator for respiratory status and hemodynamic monitoring. 5. Supportive care measures for septic shock, including fluid resuscitation and vasopressor management. 6. Monitor and maintain drainage output. 7. Ensure adequate nutritional support through TPN. 8. Follow-up with surgical team for wound care and any necessary surgical interventions. 9. if hypotension persists, recommend repeating Ct of abdomen in a few days to rule out hematoma 10. Stop vancomycin Authorized and Performed by: mey ayala MD Total critical care time: Approximately 76 minutes Due to a high probability of clinically significant, life threatening deterioration, the patient required my highest level of preparedness to intervene emergently and I personally spent this critical care time directly and personally managing the patient. This critical care time included obtaining a history; examining the patient; pulse oximetry; ordering and review of studies; arranging urgent treatment with development of a management plan; evaluation of patient's response to treatment; frequent reassessment; and, discussions with other providers. This critical care time was performed to assess and manage the high probability of imminent, life-threatening deterioration that could result in multi-organ failure. It was exclusive of separately billable procedures and treating other patients and teaching time. Plan discussed with: Patient Dietary Evaluation Review Comments: 1) Advance pt diet when medically feasible to a 2gmNa diet modified per [employer] recommendations 2) Continue current plan of care Expected Outcomes/Goals: 1) Pt diet to advance 2) F/U in 2-3 days MEY AYALA MD Jun 05, 2024 18:27
--- NOTE | 2024-06-05 19:06 | DVH ---
EXAM: XY CHEST XRAY 1 VIEW CLINICAL HISTORY: central line placement TECHNIQUE: Single AP view of the chest WID: COMPARISON: XY CHEST PORTABLE on DOS: 06/05/24 FINDINGS: Lines and tubes: Endotracheal tube projects 4.3 cm above the joaquin. Right IJ central venous catheter projects over the mid SVC. Right IJ chest port projects over the low SVC. Left subclavian central v enous catheter projects over the mid to lower SVC. Chest: The heart size and pulmonary vasculature is within normal limits. No pleural effusion, pneumothorax, or consolidation. The left costophrenic angle is not entirely incl uded in the field of view. The osseous structures are grossly intact. IMPRESSION: 1. No acute cardiopulmonary abnormality. 2. Endotracheal tube projects 4.3 cm above the joaquin. 3. Left subclavian central venous catheter projects over the mid to lower SVC. 4. Right IJ central venous catheter and right IJ chest port remains in place.
--- NOTE | 2024-06-05 19:20 | DVHPN2 ---
Progress Note - Dictate Date Seen: Jun 05, 2024 Has the PT tested + for MRSA If YES, has PT been informed?: No Medical Necessity Reason Pt with a Central, PICC or Fol: Yes The following are medically ne: Muhammad Catheter Reason for muhammad catheter: Strict I&O Subjective Patient seen and examined at bedside. Sedated, intubated on mechanical ventilator. Overnight events reviewed. vital signs Vital Sign Date Time Temp Pulse Resp B/P (MAP) Pulse Ox O2 Delivery O2 Flow Rate FiO2 06/05/24 18:47 73 18 133/32 (65) 97 30 06/05/24 16:45 98.2 98.2 06/05/24 16:00 Mechanical Ventilator+ Total Intake and Output 06/04/24 06/04/24 06/05/24 15:00 23:00 07:00 Intake Total 893.876 ml 1353.566 ml 1006.063 ml Output Total 1210 ml 1455 ml Balance 893.876 ml 143.566 ml -448.937 ml medications Current Medications Medications Dose Ordered Sig/Nora Route Start Time Stop Time Status Last Admin Dose Admin Ondansetron HCl 4 mg Q4HP PRN IV 05/07/24 16:30 06/05/24 14:23 4 MG Fentanyl Citrate 250 ml @ 2.5 mls/hr Q24H IV 05/16/24 14:00 06/05/24 08:03 25 MLS/HR Midazolam HCl 50 ml @ 1 mls/hr Q24H IV 05/16/24 21:00 06/05/24 18:19 12 MLS/HR Phenylephrine HCl 250 ml @ 30 mls/hr Q8H20M IV 05/16/24 21:15 05/17/24 06:03 30 MLS/HR Acetaminophen 650 mg Q6HPRN PRN [place] 05/16/24 22:30 06/04/24 21:42 650 MG Pantoprazole Sodium 40 mg DAILY IV 05/17/24 10:00 06/05/24 08:06 40 MG Amino Acids 0 ml @ 0 mls/hr PER PHARMACY IV 05/17/24 08:30 Meropenem 50 ml @ 17 mls/hr Q8HR IV 05/18/24 14:00 06/05/24 14:43 17 MLS/HR Vancomycin HCl 0 ml @ 0 mls/hr UD IV 05/18/24 07:45 Cancel Metoprolol Tartrate 1.25 mg Q6HPRN PRN IV 05/18/24 16:00 05/18/24 16:17 1.25 MG Norepinephrine Bitartrate 32 mg/ Sodium Chloride 250 ml @ 0.938 mls/ hr Q24H IV 05/18/24 16:00 06/04/24 12:06 0.938 MLS/HR Amiodarone HCl 250 ml @ 16.667 mls/ hr Q15H IV 05/18/24 22:30 05/20/24 20:59 16.667 MLS/HR Potassium Chloride 100 ml @ 50 mls/hr Q2H IV 05/22/24 12:30 05/22/24 16:29 Cancel Diagnostic Test (Pha) 1 strip Q6HR 05/24/24 12:00 06/05/24 18:07 1 STRIP Insulin Human Regular FOLLOW SLIDING SCALE Q6HR SC 05/24/24 12:00 06/05/24 18:19 2 UNITS Dextrose 50 ml UD IV 05/24/24 12:00 Dexmedetomidine HCl 400 mcg/ Dextrose 100 ml @ 3.17 mls/hr Q24H IV 05/28/24 20:45 06/05/24 10:58 3.17 MLS/HR Hydralazine HCl 10 mg Q6HP PRN IV 05/30/24 16:15 06/05/24 11:53 10 MG Enoxaparin Sodium 70 mg Q12HR SC 06/01/24 22:00 06/05/24 08:06 70 MG Labetalol HCl 10 mg Q2HPRN PRN IV 06/02/24 07:45 06/05/24 13:47 10 MG Micafungin Sodium 100 mg/Sodium Chloride 100 ml @ 100 mls/hr DAILY IV 06/03/24 10:00 06/05/24 08:05 100 MLS/HR Fat Emulsion Intravenous 50 ml/ Sodium Acetate 20 meq/Sodium Phosphate 10 meq/ Potassium Chloride 40 meq/ Magnesium Sulfate 16 meq/ Multivitamins 10 ml/Chromium/ Copper/Manganese/ Zinc 1 ml/Insulin Human Regular 18 units/Amino Acids/ Dextrose/Purified Water 1,647.68 ml @ 68 mls/hr [id number] IV 06/04/24 20:00 06/05/24 19:59 06/04/24 21:29 68 MLS/HR Fat Emulsion Intravenous 50 ml/ Sodium Phosphate 40 meq/Potassium Acetate 50 meq/ Magnesium Sulfate 16 meq/ Multivitamins 10 ml/Chromium/ Copper/Manganese/ Zinc 1 ml/Insulin Human Regular 18 units/Amino Acids/ Dextrose/Purified Water 1,650.18 ml @ 68 mls/hr [id number] IV 06/05/24 20:00 06/06/24 19:59 Hydralazine HCl 20 mg Q6HR IV 06/05/24 18:00 objective Gen.: Patient lying in bed in medical ICU. Sedated, intubated on mechanical ventilator. Head: Normocephalic, atraumatic. Eyes: PERRLA. Ears: Normal external anatomy. Throat: Endotracheal tube and orogastric tube in place. Neck: Supple, trachea midline. Chest: Transmitted breath sounds bilaterally. Decreased air entry bilaterally. No wheezing. Bibasilar crackles. Cardio vascular: Positive S1, positive S2. Regular rate and rhythm. Abdomen: Positive bowel sounds in all 4 quadrants. Soft, nontender, nondistended. : Muhammad in place. Normal external genitalia. Rectal: Deferred Skin: Warm, dry. Intact. Extremities: 2+ radial pulses bilaterally. No lower extremity edema. Neuro: Sedated. laboratory and microbiology Laboratory Tests 06/05/24 03:10 Test 06/05/24 03:10 Range/Units Serum Glucose 134 H 74-106 mg/dL Assessment/Plan Impression: Acute hypoxic respiratory failure On mechanical ventilator Abdominal pain due to recent robotic surgery hysterectomy and salpingo- oophorectomy History of breast cancer with bilateral mastectomies History of bowel surgery and ileostomy Anemia due to hemorrhage on hemodilution Shock Chronic pain syndrome Anemia Atrial fibrillation with RVR Bowel perforation with repeat exploratory laparotomy with ileostomy creation Events: Respiratory Patient was on assist control mode of ventilation and then CPAP trial was given for weining, but could not tolerate. The patient was placed back on the previous assist control ventilation with the following settings RR 80 tidal volume 450 Peep-5, FiO2 35% Tracheostomy is recommended given the prolonged need for ventilation Chest c-szf-[id number] tube ,enteric catheter ,right central venous catheter and right chest port is in satisfactory position Mild congestion, no effusion I/O Muhammad's catheter in place urine output 2250 ml Stool output 40 mL Gastric drain 300 and Patient is on total peripheral nutrition at rate of 68 mL/hour, amino acids were infused Cardiac Blood pressure 154/65, pulse 103, SpO2 98% Atrial fibrillation with RVR Currently Off of vasopressors, keep them MAP above 65 On hydralazine 10 mg, metoprolol 1.25 mg, labetalol 10 mg intravenous. Amiodarone infusion was held today Hematology Hemoglobin is 8.4, WBC 10.2 Transfuse if hemoglobin is less than 7gm Blood culture on did not show any growth for 72 hours Upper extremity Doppler showed nonocclusive thrombus in the right axillary vein and brachial vein Currently on enoxaparin 70 mg subcutaneous Blood cultures revealed growth of yeast but not Shawanda albicans Currently on micafungin intravenous along with vancomycin and meropenem, continue antibiotic Metabolic ABG pH 7.43, PaCO2 35.5 ,bicarbonate 23.3 Sodium 136, potassium 3.3 BUN 27 creatinine 0.48, baseline creatinine is 0.6-0.7 Monitor renal functions Patient needs receiving KCl infusion. Neuro Patient was given CPAP trial but could not tolerate, shifted back to assist- control mode of ventilation again. On dexmed 3.17 mL/hour, iron fentanyl 25 microgram/hour for sedation Trachostomy recommended given the needed of ventilator- support for prolonged period of time Continue ABG and chest x-ray monitoring Nutrition Patient was on TPN at 60 mL/hour IV Pantoprazole 40 for the prevention of stress ulcer DVT prophylaxis- on enoxaparin 70 SC Rest of plan as outlined below. Plan: s/p intubation on mechanical ventilator CXR image and report reviewed. Devices in place. Pulmonary vascular congestion. Right bibasilar airspace opacities. No pleural effusion or pneumothorax. ABG reviewed. On assist control with a respiratory rate of 18, tidal volume 450, PEEP of 5, FiO2 of 30%. Titrate FIO2 to keep O2 saturation above 92%. VAP bundle Daily ABG and CXR while intubated. Sedate for ventilatory synchrony Pressors as necessary for hemodynamic support Titrate to keep mean arterial pressure greater than 65 mmHg. Continue antibiotics. F/u cultures. Monitor hemoglobin Transfuse if less than 7.0 grams/deciliter Monitor renal function due to Acute kidney injury. Monitor electrolytes. Supplement as necessary. Surgery recommendations appreciated. Nutritional support. On TPN Accucheks, ISS. GI/DVT prophylaxis. Condition: Critical Prognosis: Poor given multiple comorbidities. Rest of plan per hospitalist and other consultants. A total of 35 minutes of critical care time was spent reviewing the patient record, examining the patient, making a diagnostic and therapeutic plan, discussing this plan with the medical personnel, following up on diagnostic studies and following the patient for clinical stability excluding any and all procedures. At least 50% of this time was spent in direct, [id number] contact. Thank you Dr Reid for allowing me to participate in this patient's care. Further recommendations will depend on patient's clinical course. Please do not hesitate to contact me if you have any questions or concerns. This medical document was created using an electronic medical record system with [employer] dictation system. Although this document has been carefully reviewed, there may still be some phonetic and typographical errors. These areas are purely typographical due to imperfections of the software programs, and do not reflect any compromise in the patient's medical care. Dietary Evaluation Review Comments: 1) Advance pt diet when medically feasible to a 2gmNa diet modified per [employer] recommendations 2) Continue current plan of care Expected Outcomes/Goals: 1) Pt diet to advance 2) F/U in 2-3 days Plan discussed with: Other (RN Jeannine, RT, MD) Critical Care Time(min): 35 RG LEONE MD Jun 05, 2024 19:20
--- NOTE | 2024-06-05 19:23 | DVHNC2 ---
Procedure - ULTRASOUND-GUIDED LEFT SUBCLAVIAN CENTRAL VENOUS CANNULATION CPT Codes: 35123 (ultrasound guidance) 31530 (insertion of non-tunneled centrally inserted central venous catheter) 80445 (CXR interpretation) DATE: 11/26/16 PHYSICIAN: Rg Poon PREOPERATIVE DIAGNOSIS: POSTOPERATIVE DIAGNOSIS: PROCEDURE PERFORMED: Limited Ultrasound-guided LEFT SUBCLAVIAN central line placement. ANESTHESIA: 2 mL of 1% lidocaine plain. ESTIMATED BLOOD LOSS: less than 5 mL. SPECIMENS: None. COMPLICATIONS: None. INDICATIONS FOR PROCEDURE: The patient is in need of large bore IV access for administration of fluids, including blood products and vasoactive drugs, possible transvenous cardiac pacing and CVP monitoring for hemodynamic instability. DESCRIPTION OF PROCEDURE IN DETAIL: The patient was lying in the Trendelenburg position with head turned 30 degrees away from the insertion site. The skin was thoroughly sponged with chlorhexidine and allowed to dry. All persons involved were shielded with hair nets, face masks and sterile gowns. With sterile-gloved hands the LEFT neck area was draped with the large disposable sterile field provided in the pre-manufactured kit. The skin and subcutaneous tissues superficial to the LEFT SUBCLAVIAN vein were anesthetized with 2 mL of 1% lidocaine. The LEFT SUBCLAVIAN vein was identified on ultrasound from the angle of the mandible down into the supraclavicular fossa using the linear ultrasound probe in the transverse orientation. The carotid artery was identified and avoided utilizing color-flow. The SUBCLAVIAN vein was then placed in the center of the ultrasound field and compressed for patency. A movement artifact was identified as the needle was advanced through the skin and advanced toward the vessel. A real time hyperechoic signal revealed visualization of vascular needle entry into the lumen as blood was noted to flashback in the syringe. The needle was then held in place while the guide wire was advanced. The needle was then removed. Direct visualization of guide wire location within the vein was noted on ultrasound indicating proper placement and was document in the electronic medical record chart. A skin dilator was advanced over the guidewire and removed, and the triple-lumen catheter was then advanced over the guide wire into proper position. The guide wire was removed and discarded. The ports were aspirated which showed good blood return and then carefully flushed with normal saline. The catheter was stabilized and sutured to the skin with 2-0 silk at 2 anchor points. A sterile bio-patch and dressing was placed over the catheter, including the insertion site. The patient tolerated the procedure well. A chest x-ray was ordered for position confirmation. I reviewed the image immediately af ter it was taken at bedside. Post-procedure chest x-ray demonstrates the central line in the superior vena and no evidence of any pneumothorax. An image recording of the procedure accompanies the chart. RG POON MD Jun 05, 2024 19:23
[2024-06-05] MEDS: TPN PER PHARMACY IV NR (19:58)
[2024-06-06] VITALS (105 sets, daily range): BP systolic 65–189; BP diastolic 22–102; PULSE 60–112; RESP 8–29; TEMP 97.9–99.3; O2SAT 98–100
[2024-06-06 03:57] LABS: Hematocrit 24.6 % (36.0-46.0)
[2024-06-06 04:00] LABS: Hemoglobin 8.5 g/dL (12.2-16.2); Mean Corpuscular Hgb Conc. 34.4 g/dL (32.0-36.0); Mean Corpuscular Volume 87.4 fL (80.0-100.0); Platelet Count (auto) 305 10^3/uL (140-450); Red Blood Cells 2.82 10^6/uL (4.0-5.20); Red Cell Distribution Width 14.5 % (11.8-14.3)
[2024-06-06 04:03] LABS: Basophils % (manual) 0 (0.0-2.0); Blast Cells 0; Metamyelocytes % 0; Promyelocytes % 0; Reactive Lymphocytes 0
[2024-06-06 04:20] LABS: Alanine Aminotransferase 20 U/L (7-40); Albumin 2.7 g/dL (3.2-4.8); Alkaline Phosphatase 153 U/L (46-116); Anion Gap 4 (5-15); Aspartate Aminotransferase 20 U/L (13-40); BUN/Creatinine Ratio 61.7 (10.0-20.0); Blood Urea Nitrogen 29 mg/dL (9-23); Calcium 9.7 mg/dL (8.7-10.4); Carbon Dioxide 24 mmol/L (20-31); Chloride 107 mmol/L (98-107); Glucose 116 mg/dL (74-106); Magnesium 2.1 mg/dL (1.6-2.6); Potassium 4.1 mmol/L (3.5-5.1); Sodium 135 mmol/L (136-145)
[2024-06-06 04:21] LABS: Bilirubin, Total 1.3 mg/dL (0.2-1.0); Phosphorus 3.8 mg/dL (2.4-5.1); Total Protein 5.9 g/dL (5.7-8.2)
[2024-06-06 06:20] LABS: Band Neutrophils % (manual) 2; Eosinophils % (manual) 4 (0-7); Lymphocytes % (manual) 8 (10.0-50.0); Monocytes % (manual) 7 (0-12); Myelocytes % 3
[2024-06-06 06:21] LABS: Platelet Estimate Adequate; Stomatocytes Few
[2024-06-06 06:24] LABS: Base Excess -2.3 mmol/L (-2.0-3.0)
--- NOTE | 2024-06-06 10:10 | DVHPN2 ---
Progress Note - Dictate Date Seen: Jun 06, 2024 Has the PT tested + for MRSA If YES, has PT been informed?: No Medical Necessity Reason Pt with a Central, PICC or Fol: Yes The following are medically ne: Muhammad Catheter Reason for muhammad catheter: Strict I&O Subjective Ms. Barrera is a 68 years old right-handed female with a history of hypertension, anemia, breast cancer, she was admitted to the [facility] on 05/07/2024 for scheduled hysterectomy and oophorectomy. Post surgically, she woke up with left-sided weakness, and MRI showed multiple stroke in the right MCA territory. During the hospital stay, she developed fall perforation, and she went through abdominal surgery on 05/16/2024 Because of ongoing intraperitoneal sepsis/peritonitis, the patient went through exploratory laparotomy on 05/24/2024 I have seen and examined the patient in the ICU, I have discussed with her nurse. She is responsive to light touch, people are equal, 2-3 mm and reactive Fentanyl 125 mcg/hour, Versed 10 mg/hour, precede: 0.4 milligram/kg per hour, levo 6 mcg/minute CBC, 05/16/2024: Metabolic acidosis, 05/17/2024: Metabolic acidosis, 05/18/2024: Metabolic acidosis URINALYSIS, 05/11/2024: WBC: 2, URINE LEUKOCYTE ESTERASE: NEGATIVE WBC/HB/PLT/MCV, 05/04: 5.1/10.7/119/98.3, 05/17/2024: 20.4/8.5/205/86.9 05/19/2024: 12.2/11.1/125/86.2, 05/20/2024: 8.1/10.5/113/86.1, 05/21/2024: 6.6/10.5/106/86.5, 05/26/2024: 9.6/9.2/184/93.8, 05/28/2024: 7.5/7/223/89.6, 05/29/24: 6.8/5.9/251/88.1, 05/30/2024: 7.4/7.7/268/86.6 PT/INR/FTT, 05/16/2024: 17.4/1.71/34.2 K, 05/09/2024: 3.9, 05/10/24:3.1, 05/12/2024: 3.4, 05/16/2024: 2.8 Lactic acid, 05/15/2024: 1.6, 05/16/2024: 1.5 HCO3, 05/23/2024: 35 Bun.Cr, 05/23/2024: 37/0.75 LIVER FUNCTION TESTS, 05/12/2024: UNREMARKABLE, 05/16/2024: Unremarkable TBI/AST/ALT/AP, 05/18/2024: 1.2/8//47, 05/19/2024: 3.1/04/23/2067, 05/23/2024: 3.1/48/35/170, 05/29/2024: 2.3/29/21/117 TG/HDL/LDL/HDL, 05/12/2024: 196/134/75/23 TSH, 05/12/2024: 2.01 Echocardiogram 05/14/2024: lvef 65% by visual estimate mild mitral regurg RV enlarged mild left atrium enlarged mild Extremity venous study, 06/01/2024: No left upper extremity DVT. Right internal jugular vein and subclavian vein are not visualized secondary to patient positioning. Nonocclusive thrombus is seen in the right axillary vein and brachial vein. Occlusive thrombus is present at the right cephalic vein. Carotid Doppler, 05/11/2024: 1. Occlusion of the right proximal ICA. 2. Greater than 50% stenosis of the right proximal ECA. 3. Greater than 50% stenosis of the left proximal ICA CT head, 05/11/2024: 1. Chronic lacunar infarct in right centrum semiovale. 2. Chronic periventricular ischemic changes. 3. Cerebral and cerebellar atrophy, likely age-related. 4. Advised further evaluation with MRI brain without contrast if clinically indicated CT abdomen/pelvis, 05/15/2024: Small bowel obstruction with evidence of perforation including free intraperitoneal fluid and air. Extensive subcutaneous emphysema likely secondary to bowel perforation CT abdomen/pelvis, 05/16/2024: 1. Sequelae of recent postsurgical changes as described above. Correlate with surgical history. 2. Pneumoperitoneum and free fluid in the abdomen and pelvis. 3. Large collection containing fluid and gas, predominantly in the right hemiabdomen. There is GI contrast extending into this collection from an adjacent small bowel loop. There is a component of this collection extending adjacent to the anterior superior aspect of the liver. 4. Moderate right hydronephrosis and hydroureter. The distal right ureter appears to be compressed by the large fluid collection in the right hemiabdomen. No obstructing calculus. 5. Dilated small bowel loops in the left hemiabdomen with suspected small-bowel obstruction. 6. Prominent subcutaneous edema in the ventral abdominal wall and extending caudally into the inguinal regions bilaterally, peroneal region, and anterior aspect of the left thigh. 7. Small bilateral pleural effusions with overlying atelectasis. 8. Additional findings as detailed above. CT abdomen, 05/23/2024: Postsurgical changes of the ventral abdomen with interval improvement in the diffuse soft tissue edema and ventral abdominal, pelvis and upper thigh subcutaneous emphysema. Interval significant decrease in size of the loculated collection within the right hemiabdomen and pelvis with small residual. Interval placement of drainage catheters terminating over the left upper abdominal quadrant and left hemipelvis as detailed above. Interval development of small to moderate ascites. Wall thickening of fluid-filled nondistended small bowel loops of the anterior mid to lower abdomen which may be from the surrounding ascites versus enteritis. Additional findings as above CT abdomen staff pelvis, 05/30/2024: 1. Radiodense contrast in the mid abdomen associated with surgical sutures. It is unclear whether this is in bowel or represents a bowel leak. Clinical correlation and continued follow-up is recommended. 2. Right pelvic, anterior abdominal wall and left abdomen drainage catheters in place. No definite abscess identified. 3. Extensive post postsurgical changes of the bowel. 4. Small amount of abdominal and pelvic ascities. 5. Small to moderate right pleural effusion. CTA neck, head, 05/14/24: 1. Complete occlusion of the right cervical internal carotid artery. There may be trickle flow in distal right cervical ICA. 2. Poor flow in the right intracranial ICA likely retrograde perfusion through the contralateral left side posterior circulation through the communicating arteries. 3. High-grade stenosis at the left carotid bulb with at least 70-80% stenosis. Moderate short-segment stenosis in the left proximal ICA with at least 60% stenosis. MRI HEAD, 05/11/2024: 1. Multiple foci of restricted diffusion in the right centrum semiovale and along the right superior frontal lobe compatible with acute to subacute infarcts. There is no evidence of acute hemorrhage or significant surrounding edema. 2. Absence of flow void in the intracranial portions of the right internal carotid artery which is likely occluded. vital signs Vital Sign Date Time Temp Pulse Resp B/P (MAP) Pulse Ox O2 Delivery O2 Flow Rate FiO2 06/06/24 09:39 61 18 114/42 (66) 100 30 06/06/24 09:30 98.2 208.8 06/06/24 08:00 Mechanical Ventilator+ Total Intake and Output 06/05/24 06/05/24 06/06/24 15:00 23:00 07:00 Intake Total 1007.640 ml 843.689 ml 725.698 ml Output Total 1485 ml 1070 ml Balance 1007.640 ml -641.311 ml -344.302 ml medications Current Medications Medications Dose Ordered Sig/Nora Route Start Time Stop Time Status Last Admin Dose Admin Ondansetron HCl 4 mg Q4HP PRN IV 05/07/24 16:30 06/06/24 05:57 4 MG Fentanyl Citrate 250 ml @ 2.5 mls/hr Q24H IV 05/16/24 14:00 06/06/24 07:01 12.5 MLS/HR Midazolam HCl 50 ml @ 1 mls/hr Q24H IV 05/16/24 21:00 06/06/24 05:57 10 MLS/HR Phenylephrine HCl 250 ml @ 30 mls/hr Q8H20M IV 05/16/24 21:15 05/17/24 06:03 30 MLS/HR Acetaminophen 650 mg Q6HPRN PRN MA 05/16/24 22:30 06/04/24 21:42 650 MG Pantoprazole Sodium 40 mg DAILY IV 05/17/24 10:00 06/06/24 08:02 40 MG Amino Acids 0 ml @ 0 mls/hr PER PHARMACY IV 05/17/24 08:30 Meropenem 50 ml @ 17 mls/hr Q8HR IV 05/18/24 14:00 06/06/24 05:51 17 MLS/HR Vancomycin HCl 0 ml @ 0 mls/hr UD IV 05/18/24 07:45 Cancel Metoprolol Tartrate 1.25 mg Q6HPRN PRN IV 05/18/24 16:00 05/18/24 16:17 1.25 MG Norepinephrine Bitartrate 32 mg/ Sodium Chloride 250 ml @ 0.938 mls/ hr Q24H IV 05/18/24 16:00 06/04/24 12:06 0.938 MLS/HR Amiodarone HCl 250 ml @ 16.667 mls/ hr Q15H IV 05/18/24 22:30 05/20/24 20:59 16.667 MLS/HR Potassium Chloride 100 ml @ 50 mls/hr Q2H IV 05/22/24 12:30 05/22/24 16:29 Cancel Diagnostic Test (Pha) 1 strip Q6HR 05/24/24 12:00 06/06/24 05:34 1 STRIP Insulin Human Regular FOLLOW SLIDING SCALE Q6HR SC 05/24/24 12:00 06/05/24 23:43 2 UNITS Dextrose 50 ml UD IV 05/24/24 12:00 Dexmedetomidine HCl 400 mcg/ Dextrose 100 ml @ 3.17 mls/hr Q24H IV 05/28/24 20:45 06/05/24 10:58 3.17 MLS/HR Hydralazine HCl 10 mg Q6HP PRN IV 05/30/24 16:15 06/05/24 11:53 10 MG Enoxaparin Sodium 70 mg Q12HR SC 06/01/24 22:00 06/06/24 08:02 70 MG Labetalol HCl 10 mg Q2HPRN PRN IV 06/02/24 07:45 06/05/24 13:47 10 MG Micafungin Sodium 100 mg/Sodium Chloride 100 ml @ 100 mls/hr DAILY IV 06/03/24 10:00 06/06/24 08:04 100 MLS/HR Fat Emulsion Intravenous 50 ml/ Sodium Phosphate 40 meq/Potassium Acetate 50 meq/ Magnesium Sulfate 16 meq/ Multivitamins 10 ml/Chromium/ Copper/Manganese/ Zinc 1 ml/Insulin Human Regular 18 units/Amino Acids/ Dextrose/Purified Water 1,650.18 ml @ 68 mls/hr [id number] IV 06/05/24 20:00 06/06/24 19:59 06/05/24 19:58 68 MLS/HR Hydralazine HCl 20 mg Q6HR IV 06/05/24 18:00 06/06/24 05:59 20 MG objective General: the patient is well developed and nourished. No acute distress. ABDOMEN: Status post surgery MENTAL STATUS: Subjective. CRANIAL NERVES: Pupils are round and reactivel. There are corneal reflexes and doll's eyes phenomenon. No signs of facial weakness. There are weak gagging or coughing reflexes SENSATION: No responses to pain stimuli. MOTOR: Normal tone in the upper and lower extremity. Normal muscle bulk. No fasciculations. No spontaneous movement. REFLEXES: Deep tendon reflexes are symmetrical. No pathological reflexes. CEREBELLAR/COORDINATION: Deferred GAIT/STATION: deferred. laboratory and microbiology Laboratory Tests 06/06/24 03:00 Test 06/06/24 03:00 Range/Units Serum Glucose 116 H 74-106 mg/dL Problem List Pelvic prolapse, can count urethrovesical junction, surgery repair on 05/07/2024 (Robotic supracervical hysterectomy bilateral salpingo-oophorectomy colposcopic pexy cystocele repair urethral sling partial vaginectomy) Bowel obstruction with perforation, intra-abdominal abscess, dense at [place], status post surgery 05/16/2024 Sepsis/septic shock Metabolic encephalopathy Acute right MCA territory multiple strokes Left hemiparesis Right ICA occlusion Left ICA severe stenosis Anemia, with unstable H&H Status post oophorectomy, hysterectomy Anisocoria, uncertain clinical significance (small and equal pupils on 06/06/2024) DVT Assessment/Plan Monitoring Supportive treatment ICU care Stabilize vitals/pressor drip Respiratory support/vent management IV antibiotics Oxygen Lipitor 20 mg daily (NPO) TPN Up to chair Physical therapy Further address bilateral carotid stenosis CLARA on discharge Surgery on case Okay to use Lovenox for DVT from neurologic point of view More recommendation per clinical course This medical document was created using an electronic medical record system with [employer] dictation system. Although this document has been carefully reviewed, there may still be some phonetic and typographical errors. These areas are purely typographical due to imperfections of the software programs, and do not reflect any compromise in the patient's medical care Prognosis poor Dietary Evaluation Review Comments: 1) Advance pt diet when medically feasible to a 2gmNa diet modified per [employer] recommendations 2) Continue current plan of care Expected Outcomes/Goals: 1) Pt diet to advance 2) F/U in 2-3 days Plan discussed with: Other BRYAN FLORES MD Jun 06, 2024 10:10
--- NOTE | 2024-06-06 10:33 | DVHPN2 ---
Subjective Intubated and sedated Still +significant drainage from abd wound and drains Temperature is 99.1 Reviewed: Care Plan, H&P, Labs, Medications, Previous Orders, Radiology Changes from previous H/P or p: Changes General: Per HPI Eyes: No Pain, No Vision change, No Conjunctivae inflammation, No Eyelid inflammation, No Other, No Redness ENT: No Ear pain, No Ear discharge, No Nose pain, No Nose discharge, No Nose congestion, No Mouth pain, No Mouth swelling, No Throat pain, No Throat swelling, No Other Cardiovascular: No Chest Pain, No Palpitations, No Orthopnea, No Paroxysmal Noc. Dyspnea, No Edema, No Lt Headedness, No Other Respiratory: No Cough, No Dry, No Shortness of breath, No SOB with excertion, No Wheezing, No Hemoptysis, No Pleuritic Pain, No Sputum, No Other Gastrointestinal: Nausea Genitourinary: No Dysuria, No Frequency, No Incontinence, No Hematuria, No Retention, No Other Musculoskeletal: No other, No neck pain, No shoulder pain, No arm pain, No back pain, No hand pain, No leg pain, No foot pain Skin: No Rash, No Lesions, No Jaundice, No Bruising, No Other Objective Vitals Vital Signs Date Time Temp Pulse Resp B/P (MAP) Pulse Ox O2 Delivery O2 Flow Rate FiO2 06/06/24 09:39 61 18 114/42 (66) 100 30 06/06/24 09:30 98.2 208.8 06/06/24 08:00 Mechanical Ventilator+ Intake/Output Intake and Output 06/06/24 07:00 Intake Total 2577.027 ml Output Total 2555 ml Balance 22.027 ml IV Total 2577.027 ml Output Urine Total 2275 ml Stool Total 20 ml Gastric Drainage Total 150 ml Drainage Total 60 ml Other 50 ml General Appearance: moderate distress, Other (Intubated and sedated) HEENT: Atraumatic, PERRLA, Other (Pupils equal, 4 mm, reactive to light to 3 mm) Lungs: Clear to auscultation, Normal air movement, Other (Mechanical ventilation) Cardiovascular: Regular rate, Normal S1, Normal S2 Abdomen: Other (Ileostomy with drainage. EVARISTO to right lower quadrant with thick serosanguineous secretions.) Musculoskeletal: Other (Unable to assess) Extremities: No edema, Other (Poor cap refill to left lower extremity with some cyanosis noted) Neuro: Other (Left arm weakness including picture frame maker and proximal muscles) Skin: Dry, Intact, Other (Surgical incision dry and intact) Psych/Mental Status: Mental status NL, Mood NL Medications Current Medications Medications Dose Ordered Sig/Nora Route Start Time Stop Time Status Last Admin Dose Admin Ondansetron HCl 4 mg Q4HP PRN IV 05/07/24 16:30 06/06/24 05:57 4 MG Fentanyl Citrate 250 ml @ 2.5 mls/hr Q24H IV 05/16/24 14:00 06/06/24 07:01 12.5 MLS/HR Midazolam HCl 50 ml @ 1 mls/hr Q24H IV 05/16/24 21:00 06/06/24 05:57 10 MLS/HR Phenylephrine HCl 250 ml @ 30 mls/hr Q8H20M IV 05/16/24 21:15 05/17/24 06:03 30 MLS/HR Acetaminophen 650 mg Q6HPRN PRN GA 05/16/24 22:30 06/04/24 21:42 650 MG Pantoprazole Sodium 40 mg DAILY IV 05/17/24 10:00 06/06/24 08:02 40 MG Amino Acids 0 ml @ 0 mls/hr PER PHARMACY IV 05/17/24 08:30 Meropenem 50 ml @ 17 mls/hr Q8HR IV 05/18/24 14:00 06/06/24 05:51 17 MLS/HR Vancomycin HCl 0 ml @ 0 mls/hr UD IV 05/18/24 07:45 Cancel Metoprolol Tartrate 1.25 mg Q6HPRN PRN IV 05/18/24 16:00 05/18/24 16:17 1.25 MG Norepinephrine Bitartrate 32 mg/ Sodium Chloride 250 ml @ 0.938 mls/ hr Q24H IV 05/18/24 16:00 06/04/24 12:06 0.938 MLS/HR Amiodarone HCl 250 ml @ 16.667 mls/ hr Q15H IV 05/18/24 22:30 05/20/24 20:59 16.667 MLS/HR Potassium Chloride 100 ml @ 50 mls/hr Q2H IV 05/22/24 12:30 05/22/24 16:29 Cancel Diagnostic Test (Pha) 1 strip Q6HR 05/24/24 12:00 06/06/24 05:34 1 STRIP Insulin Human Regular FOLLOW SLIDING SCALE Q6HR SC 05/24/24 12:00 06/05/24 23:43 2 UNITS Dextrose 50 ml UD IV 05/24/24 12:00 Dexmedetomidine HCl 400 mcg/ Dextrose 100 ml @ 3.17 mls/hr Q24H IV 05/28/24 20:45 06/05/24 10:58 3.17 MLS/HR Hydralazine HCl 10 mg Q6HP PRN IV 05/30/24 16:15 06/05/24 11:53 10 MG Enoxaparin Sodium 70 mg Q12HR SC 06/01/24 22:00 06/06/24 08:02 70 MG Labetalol HCl 10 mg Q2HPRN PRN IV 06/02/24 07:45 06/05/24 13:47 10 MG Micafungin Sodium 100 mg/Sodium Chloride 100 ml @ 100 mls/hr DAILY IV 06/03/24 10:00 06/06/24 08:04 100 MLS/HR Fat Emulsion Intravenous 50 ml/ Sodium Phosphate 40 meq/Potassium Acetate 50 meq/ Magnesium Sulfate 16 meq/ Multivitamins 10 ml/Chromium/ Copper/Manganese/ Zinc 1 ml/Insulin Human Regular 18 units/Amino Acids/ Dextrose/Purified Water 1,650.18 ml @ 68 mls/hr [id number] IV 06/05/24 20:00 06/06/24 19:59 06/05/24 19:58 68 MLS/HR Hydralazine HCl 20 mg Q6HR IV 06/05/24 18:00 06/06/24 05:59 20 MG Laboratory Results Laboratory Tests 06/06/24 03:00 Chemistry Test 06/06/24 03:00 Albumin 2.7 g/dL (3.2-4.8) L Calcium Level 9.7 mg/dL (8.7-10.4) Magnesium Level 2.1 mg/dL (1.6-2.6) Phosphorus Level 3.8 mg/dL (2.4-5.1) Total Protein 5.9 g/dL (5.7-8.2) LFT Test 06/06/24 03:00 Alanine Aminotransferase (ALT) 20 U/L (7-40) Alkaline Phosphatase 153 U/L (46-116) H Aspartate Amino Transferase (AST) 20 U/L (13-40) Total Bilirubin 1.3 mg/dL (0.2-1.0) H Urinalysis Test 05/11/24 16:18 Urine Color Yellow (Yellow) Urine Clarity Clear (Clear) Urine pH 6.0 (5.0-9.0) Urine Specific Barton 1.020 (1.001-1.035) Urine Protein 1+ (Negative) H Urine Ketones 4+ (Negative) H Urine Blood Trace /uL (Negative) H Urine Nitrite Negative (Negative) Urine Bilirubin Negative (Negative) Urine Urobilinogen Normal mg/dL (Negative) Urine Leukocyte Esterase Negative /uL (Negative) Urine RBC 2 /hpf (0 - 4) Urine WBC 2 /hpf (0 - 5) Urine Squamous Epithelial Cells Few /hpf (<5) Urine Bacteria None seen /hpf (None Seen) Urine Mucus Few (None Seen) Urine Glucose Normal mg/dL (Normal) Blood Gas Results Test 06/06/24 06:18 Arterial Blood pH 7.430 (7.350-7.450) FiO2 % 30.0 Microbiology Microbiology Date/Time Source Procedure Growth Status 06/02/24 16:09 Urine - [place] Urine Culture - Final Complete 06/02/24 15:50 Abdomen Gram Stain - Final Resulted 06/02/24 15:50 Abdomen Wound Culture - Preliminary Resulted 06/02/24 11:02 Blood Blood Culture - Preliminary NO GROWTH AFTER 72 HOURS OF INCUBATION. Resulted 05/16/24 14:20 Sputum Gram Stain - Final Complete 05/16/24 14:20 Respiratory Culture - Final Yeast, not Shawanda albicans Complete Assessment/Plan Assessment/Plan Robotic surgery hysterectomy and salpingo-oophorectomy complicated by Acute CVA Acute CVA w LUE hemiparesis Bowel perforation with repeat exploratory laparotomy with ileostomy creation History of breast cancer with bilateral mastectomies Afib RVR Acute hypoxic respiratory failure Mechanical intubation Exploratory laparotomy, drainage of intraabdominal abscess, thorough peritoneal lavage with reinforcement of the anastomotic location of the previous anastomosis as well as a diverting loop ileostomy on 05/24/24 Anemia Right upper extremity DVT Plan Mechanical ventilation TPN IV antibiotics: Vancomycin + Meropenem No vasopressors Sedation prn GI Prophylaxis: Protonix Transfuse blood prn 05/29/24: Transfuse 1 unit RBCs for Hb 5.9 Lasix 20 mg IV x1 Check Hb after transfusion Off pressors Antibiotics: Meropenem, Vanco, Micafungin Amiodarone IV Taper sedation down as tolerated CXR: Clear TPN Protonix 05/30/24: Discussed with Dr. Fritz Lake Will do CT ABD pelvis to follow up on abscess IV antibiotics Taper sedation down C-PAP? per Dr. Poon 05/31/24: CT abdomen showed no fluid collection IV antibiotics: Meropenem, Vancomycin & Micafungin Amiodarone Dr. Fritz Lake recommended to continue medical treatment, no surgical intervention Sedation as needed TPN 06/01/2024: Start Lovenox 70 mg subQ q.[address] Lake and Neurology IV antibiotics meropenem and vancomycin Micafungin TPN Tapered down sedation as tolerated 06/02/24: Fever Yeast in cultures: Micafungin IV antibiotics: Meropenem & Vanco TPN RUE DVT: Lovenox Normocytic anemia 7.9 Consult ID [place] Cultures Afib: Amiodarone drip Discussed with her sister over the phone 06/03/2024: IV antibiotics: Meropenem and vancomycin IV antifungal: Micafungin TPN Amiodarone IV Dr. Fritz Lake for surgery is on the case 06/04/24: Abdominal infection: IV antibiotics: Meropenem, Vanco and Micafungin TPN Amiodarone Surgery on case: Will discuss with Dr. Fritz Lake regarding tracheostomy ID consult is pending Discussed with sister over the phone, family is agreeable with the trach Anemia: Transfuse one unit RBCs 06/05/24: Hypokalemia: Replace IV antibiotics: Meropenem and Vanco IV antifungals: Micafungin TPN Amiodarone Discussed with Dr. Lake regarding tracheostomy Remove central line PICC line 06/06/24: Repeat CT abdomen & pelvis Discussed with her sister Lianet over the phone Discussed the advance directives She stated that patient as stated before that she wants to be treated but only if she becomes a vegetable then she would stop the treatment The family for now would like to continue treatment We will get a new blood and urine and sputum cultures Continue IV antibiotics and IV antifungal Dr. Lake is evaluating the patient for possible tracheostomy in the next few days Plan discussed with: Other My Orders Orders - BARI MOORE MD Procedure Category Date Status Time Hydralazine Injection PHA 06/05/24 In Process (Apresoline Inject 18:00 Obtain Consent For: ORDERS 06/05/24 Transmitted 16:01 Us Guided Vascular US 06/05/24 Logged Access 16:01 Date of Service: Jun 06, 2024 Billing Provider: BARI MOORE MD Common Visit Codes: NOT BILLABLE BARI MOORE MD Jun 06, 2024 10:33
--- NOTE | 2024-06-06 11:40 | DVH ---
CT ABDOMEN AND PELVIS WITHOUT CONTRAST CLINICAL HISTORY: drainage in abdomen TECHNIQUE: Multidetector CT of the abdomen was performed from lung bases to pubic symphysis. Imaging was performed without IV contrast. Axial, coronal and sagittal multiplanar reformats were obtained fr om the axial data set by the technologist. Radiation optimization: All CT scans at this facility use at least one of these dose optimization gumaro hniques: automated exposure control mA and/or kV adjustment per patient size (includes targeted exam s where dose is matched to clinical indication) or iterative reconstruction. Radiation Dose Information: CT Dose: CTDI volume is [CTDIvol] mGy. Dose-length product is [DLP] mGy*cm Comparison: 05/30/2024 FINDINGS: Evaluation abdominal viscera is limited without intravenous contrast. There is fairly stable radiodense contrast in the central mid abdomen is seen with adjacent surgical sutures, small-bowel and ascites. There is stable intra-abdominal ascites. Redemonstrated are drainage catheters terminating in the pel vis and in the upper abdomen. A Shannon catheter and rectal tube are in place. A gastric tube is also in place. There is a right lowe r quadrant ostomy. The small and large bowel loops are stable in appearance with postsurgical changes . The liver, gallbladder, pancreas, kidneys, adrenal glands, and spleen appear unchanged. There is no gross evidence of abdominal lymphadenopathy. There are calcified atherosclerotic changes in the abdominal aorta. The IVC appears grossly unremark able. There is a Shannon catheter within the bladder which is decompressed. Is no gross evidence of a pelvic mass or obvious lymphadenopathy. There is small to moderate size right-sided pleural effusion with likely atelectasis in the right alvin g base. The left lung base is clear. There is no acute osseous abnormality. There is levoconvex scoliosis of the lumbar spine with multil evel degenerative changes. IMPRESSION: 1. There is fairly stable appearing radiodense contrast in the central mid abdomen with adjacent surg ical sutures, small bowel and ascites. 2. Again seen are drainage catheters terminating in the pelvis and upper abdomen. There is stable evelin earing intra-abdominal ascites. 3. Redemonstrated are extensive postsurgical changes in the bowel which appear unchanged. 4. Small to moderate size right-sided pleural effusion. HS:Y
--- NOTE | 2024-06-06 13:18 | DVH ---
EXAM: XY CHEST XRAY 1 VIEW Indication:PT INTUBATED Technique: Single frontal view of the chest was obtained Comparison: XY CHEST XRAY 1 VIEW on DOS: 06/05/24, XY CHEST PORTABLE on DOS: 06/05/24, XY CHEST XRAY 1 VIEW on DOS: 06/04/24, XY CHEST PORTABLE on DOS: 06/03/24, XY CHEST PORTABLE on DOS: 05/31/24 FINDINGS: Lines and Tubes: Left tip projects over the azygous vein. Right chest port tip projects over the sup erior vena cava. Endotracheal tube projects 4.5 cm above the joaquin. Enteric tube projects over the expected region of the stomach.central venous catheter Lungs: No focal consolidation. Pleura: No effusion. No pneumothorax. Cardiomediastinal contours: Unremarkable Bones: No acute osseous abnormality. IMPRESSION: Left tip projects over the azygous vein. Recommend repositioning.
[2024-06-06] MEDS: TPN PER PHARMACY IV NR (20:28)
--- NOTE | 2024-06-06 20:56 | DVHPN2 ---
Consult Progress Note Date Seen: Jun 06, 2024 Subjective Patient reports: No new complaints (remains off pressers , very little drainage coming out from the suture line, abdomen is minimally distended about 0.25ccs of drainage from one of her abdominal drains), Feels better Objective vital signs Vital Sign Date Time Temp Pulse Resp B/P (MAP) Pulse Ox O2 Delivery O2 Flow Rate FiO2 06/06/24 20:16 85/32 06/06/24 20:15 72 18 100 30 06/06/24 19:15 98.6 209.5 06/06/24 18:00 Mechanical Ventilator+ Total Intake and Output 06/05/24 06/05/24 06/06/24 15:00 23:00 07:00 Intake Total 1007.640 ml 843.689 ml 822.538 ml Output Total 1485 ml 1070 ml Balance 1007.640 ml -641.311 ml -247.462 ml medications Current Medications Medications Dose Ordered Sig/Nora Route Start Time Stop Time Status Last Admin Dose Admin Fentanyl Citrate 250 ml @ 2.5 mls/hr Q24H IV 05/16/24 14:00 06/06/24 07:01 12.5 MLS/HR Midazolam HCl 50 ml @ 1 mls/hr Q24H IV 05/16/24 21:00 06/06/24 20:16 11 MLS/HR Phenylephrine HCl 250 ml @ 30 mls/hr Q8H20M IV 05/16/24 21:15 05/17/24 06:03 30 MLS/HR Acetaminophen 650 mg Q6HPRN PRN CA 05/16/24 22:30 06/04/24 21:42 650 MG Pantoprazole Sodium 40 mg DAILY IV 05/17/24 10:00 06/06/24 08:02 40 MG Amino Acids 0 ml @ 0 mls/hr PER PHARMACY IV 05/17/24 08:30 Vancomycin HCl 0 ml @ 0 mls/hr UD IV 05/18/24 07:45 Cancel Metoprolol Tartrate 1.25 mg Q6HPRN PRN IV 05/18/24 16:00 05/18/24 16:17 1.25 MG Norepinephrine Bitartrate 32 mg/ Sodium Chloride 250 ml @ 0.938 mls/ hr Q24H IV 05/18/24 16:00 06/04/24 12:06 0.938 MLS/HR Amiodarone HCl 250 ml @ 16.667 mls/ hr Q15H IV 05/18/24 22:30 05/20/24 20:59 16.667 MLS/HR Potassium Chloride 100 ml @ 50 mls/hr Q2H IV 05/22/24 12:30 05/22/24 16:29 Cancel Diagnostic Test (Pha) 1 strip Q6HR 05/24/24 12:00 06/06/24 18:12 1 STRIP Insulin Human Regular FOLLOW SLIDING SCALE Q6HR SC 05/24/24 12:00 06/06/24 18:16 2 UNITS Dextrose 50 ml UD IV 05/24/24 12:00 Dexmedetomidine HCl 400 mcg/ Dextrose 100 ml @ 3.17 mls/hr Q24H IV 05/28/24 20:45 06/05/24 10:58 3.17 MLS/HR Hydralazine HCl 10 mg Q6HP PRN IV 05/30/24 16:15 06/05/24 11:53 10 MG Enoxaparin Sodium 70 mg Q12HR SC 06/01/24 22:00 06/06/24 08:02 70 MG Labetalol HCl 10 mg Q2HPRN PRN IV 06/02/24 07:45 06/06/24 14:04 10 MG Micafungin Sodium 100 mg/Sodium Chloride 100 ml @ 100 mls/hr DAILY IV 06/03/24 10:00 06/06/24 08:04 100 MLS/HR Hydralazine HCl 20 mg Q6HR IV 06/05/24 18:00 06/06/24 18:16 20 MG Fat Emulsion Intravenous 100 ml/Sodium Phosphate 50 meq/ Potassium Acetate 60 meq/Magnesium Sulfate 16 meq/ Multivitamins 10 ml/Chromium/ Copper/Manganese/ Zinc 1 ml/Insulin Human Regular 18 units/Amino Acids/ Dextrose/Purified Water 1,607.68 ml @ 66 mls/hr [id number] IV 06/06/24 20:00 06/07/24 19:59 06/06/24 20:28 66 MLS/HR Ceftriaxone Sodium/Dextrose 50 ml @ 50 mls/hr DAILY IV 06/07/24 10:00 Metronidazole 100 ml @ 100 mls/hr Q8HR IV 06/06/24 22:00 Physical Exam: - General: NAD - Neck: Supple. No masses. - HEENT: PERRL. Normal lids and conjunctiva. Moist mucous membranes. Oropharynx without lesions, exudates or excessive erythema. Normal appearance of the external aspects of the nose and ears. - Heart: Regular rhythm, normal rate. No murmur. No lower extremity edema. - Lungs: Normal respiratory effort. Clear to auscultation bilaterally. No wheezes. No crackles. - Abdomen: Soft. Non-tender. minimally distended. No masses or abdominal hernia. - MSK: No digital cyanosis. Normal strength and tone in all 4 limbs. - Skin: Warm and dry, no rashes. - Neuro: Alert. No facial droop or slurred speech. EO movements intact. Sensation intact to soft touch in all 4 limbs. L sided weakness in UE and LE - Psych: Appropriate mood.intubated and sedated laboratory and microbiology Laboratory Tests 06/06/24 03:00 Test 06/06/24 03:00 Range/Units Serum Glucose 116 H 74-106 mg/dL Problem List/Assessment/Plan Problems(with codes): (1) Fungal infection (2) Intra-abdominal abscess (3) SBO (small bowel obstruction) (4) Stroke (5) Anemia (6) Breast cancer (7) Hypertension Problem List/Assessment/Plan Assessment and Plan: ID Problem List: 1. Small bowel obstruction with perforation 2. Septic shock 3. Stroke, right MCA territory 4. Hypertension 5. Anemia 6. Breast cancer 7. Bilateral mastectomy 8. Post-surgical complications (including ileostomy creation) 9. Fungal infection (yeast not Shawanda albicans) 10. Strep Viridans Group B infection Assessment: This is a 68-year-old female, with a significant past medical history of anemia, hypertension, breast cancer status post bilateral mastectomy, and a 50 pack-year smoking history (now quit), who was initially admitted for a robotic hysterectomy with bilateral salpingectomy, removal of a right ovarian mass, cystocele repair with urethral sling. Postoperatively, she developed hypertension and nausea, necessitating overnight admission. Post-admission, she endured a cerebrovascular accident primarily impacting the right MCA territory and contributing to left-sided weakness. Subsequent evaluations included MRI and CT head scans that confirmed multiple acute and subacute infarcts. Later complications included progression to an acute small bowel obstruction with perforation, leading to emergent exploratory laparotomy and subsequent ileostomy creation. Cultures from the surgical sites revealed a non-Shawanda albicans yeast and Strep Viridans Group B infection. The patient continues to require ICU support, primarily due to ongoing septic shock and the need for ventilatory assistance. Patient remains intubated with vasopressors being weaned off. Recent WBC count was 16.9 and hemoglobin levels have fluctuated, dropping as low as 5.9. She has been transitioned to a multi-antibiotic regimen including meropenem, vancomycin, and TPN for nutritional support. 06/04: hemaglobin of 6.9, suspect ongoing blood loss. Preliminary blood cultures are no growth for 48 hours as well as wound and urine cultures with no growth 06/05: hemaglobin of 8.4 after blood transfusion. Repeat cultures of the abdomen is showing no organisms 06/06: Ct pelvis abdomen shows faily stable appearing radio dense contrast in the central mid abdomen with adjacent surgical sutures. Small bowel anacitis. drainage catheter terminating in the pelvis and upper abdomen, stable appearing intraabdominal acities. extensive post-surgical changes that ate unchanged. a small to moderate right mid size plural effusion. Chest x-ray was done and shows no focal consolidation in the lungs Plan: start cephtriaxone and flagell 1. Stop meropenem 2. Continue micafungin for fungal infection, may consider switching if yeast infection persists but will hold off for now 3. check blood cultures and check surgical site wound culture 4. Provide ICU support with ventilator for respiratory status and hemodynamic monitoring. 5. Supportive care measures for septic shock, including fluid resuscitation and vasopressor management. 6. Monitor and maintain drainage output. 7. Ensure adequate nutritional support through TPN. 8. Follow-up with surgical team for wound care and any necessary surgical interventions. 9. if hypotension persists, recommend repeating Ct of abdomen in a few days to rule out hematoma Authorized and Performed by: mey ayala MD Total critical care time: Approximately 76 minutes Due to a high probability of clinically significant, life threatening deterioration, the patient required my highest level of preparedness to intervene emergently and I personally spent this critical care time directly and personally managing the patient. This critical care time included obtaining a history; examining the patient; pulse oximetry; ordering and review of studies; arranging urgent treatment with development of a management plan; evaluation of patient's response to treatment; frequent reassessment; and, discussions with other providers. This critical care time was performed to assess and manage the high probability of imminent, life-threatening deterioration that could result in multi-organ failure. It was exclusive of separately billable procedures and treating other patients and teaching time. Plan discussed with: Other Dietary Evaluation Review Comments: 1) Advance pt diet when medically feasible to a 2gmNa diet modified per INSTRUCTIONAL MEDIA SERVICES TECHNICIAN recommendations 2) Continue current plan of care Expected Outcomes/Goals: 1) Pt diet to advance 2) F/U in 2-3 days MEY AYALA MD Jun 06, 2024 20:56
--- NOTE | 2024-06-06 21:26 | DVHPN2 ---
Progress Note Date Seen: Jun 06, 2024 Has the PT tested + for MRSA If YES, has PT been informed?: No Medical Necessity Reason Pt with a Central, PICC or Fol: Yes The following are medically ne: Muhammad Catheter Reason for muhammad catheter: Strict I&O Objective vital signs Vital Sign Date Time Temp Pulse Resp B/P (MAP) Pulse Ox O2 Delivery O2 Flow Rate FiO2 06/06/24 20:16 85/32 06/06/24 20:15 72 18 100 30 06/06/24 19:15 98.6 209.5 06/06/24 18:00 Mechanical Ventilator+ Total Intake and Output 06/05/24 06/05/24 06/06/24 15:00 23:00 07:00 Intake Total 1007.640 ml 843.689 ml 822.538 ml Output Total 1485 ml 1070 ml Balance 1007.640 ml -641.311 ml -247.462 ml medications Current Medications Medications Dose Ordered Sig/Nora Route Start Time Stop Time Status Last Admin Dose Admin Fentanyl Citrate 250 ml @ 2.5 mls/hr Q24H IV 05/16/24 14:00 06/06/24 07:01 12.5 MLS/HR Midazolam HCl 50 ml @ 1 mls/hr Q24H IV 05/16/24 21:00 06/06/24 20:16 11 MLS/HR Phenylephrine HCl 250 ml @ 30 mls/hr Q8H20M IV 05/16/24 21:15 05/17/24 06:03 30 MLS/HR Acetaminophen 650 mg Q6HPRN PRN [place] 05/16/24 22:30 06/04/24 21:42 650 MG Pantoprazole Sodium 40 mg DAILY IV 05/17/24 10:00 06/06/24 08:02 40 MG Amino Acids 0 ml @ 0 mls/hr PER PHARMACY IV 05/17/24 08:30 Vancomycin HCl 0 ml @ 0 mls/hr UD IV 05/18/24 07:45 Cancel Metoprolol Tartrate 1.25 mg Q6HPRN PRN IV 05/18/24 16:00 05/18/24 16:17 1.25 MG Norepinephrine Bitartrate 32 mg/ Sodium Chloride 250 ml @ 0.938 mls/ hr Q24H IV 05/18/24 16:00 06/04/24 12:06 0.938 MLS/HR Amiodarone HCl 250 ml @ 16.667 mls/ hr Q15H IV 05/18/24 22:30 05/20/24 20:59 16.667 MLS/HR Potassium Chloride 100 ml @ 50 mls/hr Q2H IV 05/22/24 12:30 05/22/24 16:29 Cancel Diagnostic Test (Pha) 1 strip Q6HR 05/24/24 12:00 06/06/24 18:12 1 STRIP Insulin Human Regular FOLLOW SLIDING SCALE Q6HR SC 05/24/24 12:00 06/06/24 18:16 2 UNITS Dextrose 50 ml UD IV 05/24/24 12:00 Dexmedetomidine HCl 400 mcg/ Dextrose 100 ml @ 3.17 mls/hr Q24H IV 05/28/24 20:45 06/05/24 10:58 3.17 MLS/HR Hydralazine HCl 10 mg Q6HP PRN IV 05/30/24 16:15 06/05/24 11:53 10 MG Enoxaparin Sodium 70 mg Q12HR SC 06/01/24 22:00 06/06/24 08:02 70 MG Labetalol HCl 10 mg Q2HPRN PRN IV 06/02/24 07:45 06/06/24 14:04 10 MG Micafungin Sodium 100 mg/Sodium Chloride 100 ml @ 100 mls/hr DAILY IV 06/03/24 10:00 06/06/24 08:04 100 MLS/HR Hydralazine HCl 20 mg Q6HR IV 06/05/24 18:00 06/06/24 18:16 20 MG Fat Emulsion Intravenous 100 ml/Sodium Phosphate 50 meq/ Potassium Acetate 60 meq/Magnesium Sulfate 16 meq/ Multivitamins 10 ml/Chromium/ Copper/Manganese/ Zinc 1 ml/Insulin Human Regular 18 units/Amino Acids/ Dextrose/Purified Water 1,607.68 ml @ 66 mls/hr [id number] IV 06/06/24 20:00 06/07/24 19:59 06/06/24 20:28 66 MLS/HR Ceftriaxone Sodium/Dextrose 50 ml @ 50 mls/hr DAILY IV 06/07/24 10:00 Metronidazole 100 ml @ 100 mls/hr Q8HR IV 06/06/24 22:00 laboratory and microbiology Laboratory Tests 06/06/24 03:00 Test 06/06/24 03:00 Range/Units Serum Glucose 116 H 74-106 mg/dL Microbiology Date/Time Source Procedure Growth Status 06/02/24 16:09 Urine - Muhammad Port Urine Culture - Final Complete 06/02/24 15:50 Abdomen Gram Stain - Final Resulted 06/02/24 15:50 Abdomen Wound Culture - Preliminary Resulted 06/02/24 11:02 Blood Blood Culture - Preliminary NO GROWTH AFTER 72 HOURS OF INCUBATION. Resulted 05/16/24 14:20 Sputum Gram Stain - Final Complete 05/16/24 14:20 Respiratory Culture - Final Yeast, not Shawanda albicans Complete Problem List/Assessment/Plan Problem List/Assessment/Plan INTUBATED CPAP TRIAL ONGOING TEMP 100 WBC WNL ABD SOFT DRAINS IN PLACE DRESSING ABD WOUND DRAINAGE NOTED AND EXPECTED BUT LESS CONDITION GUARDED ILEOSTOMY VIABLE AND FUNCTIONAL REPEAT CT SCAN ABD UNCHANGED NURSE AT BEDSIDE CONTINUE SUPPORTIVE CARE PULM EVAL ONGOING CONSIDER TRACH BASED ON ONGOING EVAL AND FAMILY TO BE INFORMED FOR CONSENT Plan discussed with: Other My Orders My Orders Orders - SHEY COVARRUBIAS MD Procedure Category Date Status Time Ct Ab Pel Wo Con-No CT 06/06/24 Resulted Oral Or Iv 08:18 Routine Bacterial MIROSLAVA 06/06/24 In Process Culture 08:24 Cpap Trial For Am ORDERS 06/06/24 Transmitted 08:35 Cpap/Sed Vacation Med ORDERS 06/06/24 Transmitted Weaning 08:35 Wound Culture W/ Gs MIROSLAVA 06/06/24 Logged 19:39 Wound Culture W/ Gs MIROSLAVA 06/06/24 Logged 19:50 Wound Culture W/ Gs MIROSLAVA 06/06/24 Logged 20:00 Dietary Evaluation Review Comments: 1) Advance pt diet when medically feasible to a 2gmNa diet modified per TRACTOR DRILL OPERATOR recommendations 2) Continue current plan of care Expected Outcomes/Goals: 1) Pt diet to advance 2) F/U in 2-3 days SHEY COVARRUBIAS MD Jun 06, 2024 21:26
[2024-06-06] MEDS: metroNIDAZOLE 500MG/100ML 100 ML IV SCH (21:53)
--- NOTE | 2024-06-06 23:00 | DVHPN2 ---
Progress Note - Dictate Date Seen: Jun 06, 2024 Has the PT tested + for MRSA If YES, has PT been informed?: No Medical Necessity Reason Pt with a Central, PICC or Fol: Yes The following are medically ne: Muhammad Catheter Reason for muhammad catheter: Strict I&O Subjective Patient seen and examined at bedside. Sedated, intubated on mechanical ventilator. Overnight events reviewed. vital signs Vital Sign Date Time Temp Pulse Resp B/P (MAP) Pulse Ox O2 Delivery O2 Flow Rate FiO2 06/06/24 22:45 99.1 92 15 84/30 (48) 100 210.4 06/06/24 22:16 30 06/06/24 22:00 Mechanical Ventilator+ Total Intake and Output 06/05/24 06/05/24 06/06/24 15:00 23:00 07:00 Intake Total 1007.640 ml 843.689 ml 822.538 ml Output Total 1485 ml 1070 ml Balance 1007.640 ml -641.311 ml -247.462 ml medications Current Medications Medications Dose Ordered Sig/Nora Route Start Time Stop Time Status Last Admin Dose Admin Fentanyl Citrate 250 ml @ 2.5 mls/hr Q24H IV 05/16/24 14:00 06/06/24 07:01 12.5 MLS/HR Midazolam HCl 50 ml @ 1 mls/hr Q24H IV 05/16/24 21:00 06/06/24 20:16 11 MLS/HR Phenylephrine HCl 250 ml @ 30 mls/hr Q8H20M IV 05/16/24 21:15 05/17/24 06:03 30 MLS/HR Acetaminophen 650 mg Q6HPRN PRN [place] 05/16/24 22:30 06/04/24 21:42 650 MG Pantoprazole Sodium 40 mg DAILY IV 05/17/24 10:00 06/06/24 08:02 40 MG Amino Acids 0 ml @ 0 mls/hr PER PHARMACY IV 05/17/24 08:30 Vancomycin HCl 0 ml @ 0 mls/hr UD IV 05/18/24 07:45 Cancel Metoprolol Tartrate 1.25 mg Q6HPRN PRN IV 05/18/24 16:00 05/18/24 16:17 1.25 MG Norepinephrine Bitartrate 32 mg/ Sodium Chloride 250 ml @ 0.938 mls/ hr Q24H IV 05/18/24 16:00 06/04/24 12:06 0.938 MLS/HR Amiodarone HCl 250 ml @ 16.667 mls/ hr Q15H IV 05/18/24 22:30 05/20/24 20:59 16.667 MLS/HR Potassium Chloride 100 ml @ 50 mls/hr Q2H IV 05/22/24 12:30 05/22/24 16:29 Cancel Diagnostic Test (Pha) 1 strip Q6HR 05/24/24 12:00 06/06/24 18:12 1 STRIP Insulin Human Regular FOLLOW SLIDING SCALE Q6HR SC 05/24/24 12:00 06/06/24 18:16 2 UNITS Dextrose 50 ml UD IV 05/24/24 12:00 Dexmedetomidine HCl 400 mcg/ Dextrose 100 ml @ 3.17 mls/hr Q24H IV 05/28/24 20:45 06/05/24 10:58 3.17 MLS/HR Hydralazine HCl 10 mg Q6HP PRN IV 05/30/24 16:15 06/05/24 11:53 10 MG Enoxaparin Sodium 70 mg Q12HR SC 06/01/24 22:00 06/06/24 21:54 70 MG Labetalol HCl 10 mg Q2HPRN PRN IV 06/02/24 07:45 06/06/24 14:04 10 MG Micafungin Sodium 100 mg/Sodium Chloride 100 ml @ 100 mls/hr DAILY IV 06/03/24 10:00 06/06/24 08:04 100 MLS/HR Hydralazine HCl 20 mg Q6HR IV 06/05/24 18:00 06/06/24 18:16 20 MG Fat Emulsion Intravenous 100 ml/Sodium Phosphate 50 meq/ Potassium Acetate 60 meq/Magnesium Sulfate 16 meq/ Multivitamins 10 ml/Chromium/ Copper/Manganese/ Zinc 1 ml/Insulin Human Regular 18 units/Amino Acids/ Dextrose/Purified Water 1,607.68 ml @ 66 mls/hr [id number] IV 06/06/24 20:00 06/07/24 19:59 06/06/24 20:28 66 MLS/HR Ceftriaxone Sodium/Dextrose 50 ml @ 50 mls/hr DAILY IV 06/07/24 10:00 Metronidazole 100 ml @ 100 mls/hr Q8HR IV 06/06/24 22:00 06/06/24 21:53 100 MLS/HR objective Gen.: Patient lying in bed in medical ICU. Sedated, intubated on mechanical ventilator. Head: Normocephalic, atraumatic. Eyes: PERRLA. Ears: Normal external anatomy. Throat: Endotracheal tube and orogastric tube in place. Neck: Supple, trachea midline. Chest: Transmitted breath sounds bilaterally. Decreased air entry bilaterally. No wheezing. Bibasilar crackles. Cardio vascular: Positive S1, positive S2. Regular rate and rhythm. Abdomen: Positive bowel sounds in all 4 quadrants. Soft, nontender, nondistended. : Muhammad in place. Normal external genitalia. Rectal: Deferred Skin: Warm, dry. Intact. Extremities: 2+ radial pulses bilaterally. No lower extremity edema. Neuro: Sedated. laboratory and microbiology Laboratory Tests 06/06/24 03:00 Test 06/06/24 03:00 Range/Units Serum Glucose 116 H 74-106 mg/dL Assessment/Plan Impression: Acute hypoxic respiratory failure On mechanical ventilator Abdominal pain due to recent robotic surgery hysterectomy and salpingo- oophorectomy History of breast cancer with bilateral mastectomies History of bowel surgery and ileostomy Anemia due to hemorrhage on hemodilution Shock Chronic pain syndrome Anemia Atrial fibrillation with RVR Bowel perforation with repeat exploratory laparotomy with ileostomy creation Events: Patient is on assist control mode of ventilation RR 18, tidal volume 450, Peep-5, FiO2 30% Tracheostomy is recommended given the prolonged need for ventilation Chest x-ray- Left tip projects over the azygous vein, recommend repositioning. Right chest port tip projects over the superior vena cava. Endotracheal tube projects 4.5 cm above the joaquin. No pleural effusion or pneumothorax TPN for nutritional support Amiodarone infusion held Upper extremity Doppler showed nonocclusive thrombus in the right axillary vein and brachial vein Currently on enoxaparin 70 mg subcutaneous Blood cultures revealed growth of yeast but not Shawanda albicans Currently on micafungin intravenous and meropenem, continue antibiotic On Versed, fentanyl for sedation CPAP daily. Tolerated on sedation. Tracheostomy recommended given the needed of ventilator- support for prolonged period of time Continue ABG and chest x-ray monitoring Patient was on TPN at 60 mL/hour IV Pantoprazole 40 for the prevention of stress ulcer DVT prophylaxis- on enoxaparin 70 SC Rest of plan as outlined below. Plan: s/p intubation on mechanical ventilator CXR image and report reviewed. Devices in place. Pulmonary vascular congestion. Right bibasilar airspace opacities. No pleural effusion or pneumothorax. ABG reviewed. On assist control with a respiratory rate of 18, tidal volume 450, PEEP of 5, FiO2 of 30%. Titrate FIO2 to keep O2 saturation above 92%. VAP bundle Daily ABG and CXR while intubated. Sedate for ventilatory synchrony Pressors as necessary for hemodynamic support Titrate to keep mean arterial pressure greater than 65 mmHg. Continue antibiotics. F/u cultures. Monitor hemoglobin Transfuse if less than 7.0 grams/deciliter Monitor renal function due to Acute kidney injury. Monitor electrolytes. Supplement as necessary. Surgery recommendations appreciated. Nutritional support. On TPN Accucheks, ISS. GI/DVT prophylaxis. Condition: Critical Prognosis: Poor given multiple comorbidities. Rest of plan per hospitalist and other consultants. A total of 35 minutes of critical care time was spent reviewing the patient record, examining the patient, making a diagnostic and therapeutic plan, discussing this plan with the medical personnel, following up on diagnostic studies and following the patient for clinical stability excluding any and all procedures. At least 50% of this time was spent in direct, [id number] contact. Thank you Dr Reid for allowing me to participate in this patient's care. Further recommendations will depend on patient's clinical course. Please do not hesitate to contact me if you have any questions or concerns. This medical document was created using an electronic medical record system with [employer] dictation system. Although this document has been carefully reviewed, there may still be some phonetic and typographical errors. These areas are purely typographical due to imperfections of the software programs, and do not reflect any compromise in the patient's medical care. Dietary Evaluation Review Comments: 1) Advance pt diet when medically feasible to a 2gmNa diet modified per LAB SUPPORT TECHNICIAN recommendations 2) Continue current plan of care Expected Outcomes/Goals: 1) Pt diet to advance 2) F/U in 2-3 days Plan discussed with: Other (YASH Noyola) Critical Care Time(min): 35 RG LEONE MD Jun 06, 2024 23:00
[2024-06-07] VITALS (105 sets, daily range): BP systolic 83–188; BP diastolic 23–152; PULSE 74–124; RESP 9–29; TEMP 85.6–99.7; O2SAT 90–100
[2024-06-07 03:43] LABS: Hematocrit 25.5 % (36.0-46.0); Mean Corpuscular Hemoglobin 30.8 pg (28.0-32.0); Mean Corpuscular Hgb Conc. 35.4 g/dL (32.0-36.0); Platelet Count (auto) 328 10^3/uL (140-450); Red Blood Cells 2.93 10^6/uL (4.0-5.20); Red Cell Distribution Width 14.3 % (11.8-14.3); White Blood Cell 9.4 10^3/uL (4.4-10.8)
[2024-06-07 03:55] LABS: Alanine Aminotransferase 22 U/L (7-40); Alkaline Phosphatase 178 U/L (46-116); Anion Gap 4 (5-15); BUN/Creatinine Ratio 62.2 (10.0-20.0); Blood Urea Nitrogen 28 mg/dL (9-23); Carbon Dioxide 26 mmol/L (20-31); Chloride 106 mmol/L (98-107); Glucose 139 mg/dL (74-106); Potassium 4.3 mmol/L (3.5-5.1); Sodium 136 mmol/L (136-145)
[2024-06-07 03:56] LABS: Aspartate Aminotransferase 20 U/L (13-40); Magnesium 2.1 mg/dL (1.6-2.6)
[2024-06-07 03:57] LABS: Albumin 2.9 g/dL (3.2-4.8); Bilirubin, Total 1.2 mg/dL (0.2-1.0); Phosphorus 3.9 mg/dL (2.4-5.1); Total Protein 6.3 g/dL (5.7-8.2)
[2024-06-07 03:59] LABS: Basophils % (manual) 0 (0.0-2.0); Blast Cells 0; Promyelocytes % 0; Reactive Lymphocytes 0
--- NOTE | 2024-06-07 05:32 | DVH ---
CHEST RADIOGRAPH Indication:ICU Technique: Single frontal view of the chest was obtained Comparison: XY CHEST XRAY 1 VIEW on DOS: 06/06/24, XY CHEST XRAY 1 VIEW on DOS: 06/05/24, XY CHEST PO RTABLE on DOS: 06/05/24 FINDINGS: Lines and Tubes: The endotracheal tube terminates 4.4 cm above the joaquin. The enteric tube courses b elow the left hemidiaphragm and outside the field of view. Right infusion catheter is unchanged with tip terminating in the right atrium. Left central venous catheter terminates in the region of the az ygous vein. Lungs: No focal consolidation. Pleura: No effusion. No pneumothorax. Cardiomediastinal contours: Unremarkable Bones: No acute osseous abnormality. IMPRESSION: 1. Support lines and tubes as described. Left central venous catheter tip terminates in the region of the azygous vein. Repositioning recommended. 2. No evidence of acute cardiopulmonary abnormality.
[2024-06-07 05:34] LABS: Band Neutrophils % (manual) 2; Eosinophils % (manual) 1 (0-7); Lymphocytes % (manual) 10 (10.0-50.0); Metamyelocytes % 1; Monocytes % (manual) 10 (0-12); Myelocytes % 1
[2024-06-07 05:35] LABS: Platelet Estimate Adequate
[2024-06-07 07:01] LABS: Base Excess 0.3 mmol/L (-2.0-3.0)
[2024-06-07] MEDS ORDERED: ETOMIDATE (2MG/ML) 20ML VIAL IV ONE (07:52)
[2024-06-07] MEDS: cefTRIAXone 2GM/50ML D5W 50 ML IV SCH (08:36)
--- NOTE | 2024-06-07 10:41 | DVHPN2 ---
Progress Note - Dictate Date Seen: Jun 07, 2024 Has the PT tested + for MRSA If YES, has PT been informed?: No Medical Necessity Reason Pt with a Central, PICC or Fol: Yes The following are medically ne: Muhammad Catheter Reason for muhammad catheter: Strict I&O Subjective Ms. Barrera is a 68 years old right-handed female with a history of hypertension, anemia, breast cancer, she was admitted to the [facility] on 05/07/2024 for scheduled hysterectomy and oophorectomy. Post surgically, she woke up with left-sided weakness, and MRI showed multiple stroke in the right MCA territory. During the hospital stay, she developed fall perforation, and she went through abdominal surgery on 05/16/2024 Because of ongoing intraperitoneal sepsis/peritonitis, the patient went through exploratory laparotomy on 05/24/2024 I have seen and examined the patient in the ICU, I have discussed with her nurse. She is responsive to light touch, she moves the right arm leg, the pupils are right: 5 mm, left: 4-5 mm Fentanyl 50 mcg/hour, Versed 1 mg/hour, precede: 0.3 mg/kg/hour, CBC, 05/16/2024: Metabolic acidosis, 05/17/2024: Metabolic acidosis, 05/18/2024: Metabolic acidosis URINALYSIS, 05/11/2024: WBC: 2, URINE LEUKOCYTE ESTERASE: NEGATIVE WBC/HB/PLT/MCV, 05/04: 5.1/10.7/119/98.3, 05/17/2024: 20.4/8.5/205/86.9 05/19/2024: 12.2/11.1/125/86.2, 05/20/2024: 8.1/10.5/113/86.1, 05/21/2024: 6.6/10.5/106/86.5, 05/26/2024: 9.6/9.2/184/93.8, 05/28/2024: 7.5/7/223/89.6, 05/29/24: 6.8/5.9/251/88.1, 05/30/2024: 7.4/7.7/268/86.6 PT/INR/FTT, 05/16/2024: 17.4/1.71/34.2 K, 05/09/2024: 3.9, 05/10/24:3.1, 05/12/2024: 3.4, 05/16/2024: 2.8 Lactic acid, 05/15/2024: 1.6, 05/16/2024: 1.5 HCO3, 05/23/2024: 35 Bun.Cr, 05/23/2024: 37/0.75 LIVER FUNCTION TESTS, 05/12/2024: UNREMARKABLE, 05/16/2024: Unremarkable TBI/AST/ALT/AP, 05/18/2024: 1.2//47, 05/19/2024: 3.1/04/23/2067, 05/23/2024: 3.1/48/35/170, 05/29/2024: 2.3/29/21/117 TG/HDL/LDL/HDL, 05/12/2024: 196/134/75/23 TSH, 05/12/2024: 2.01 Echocardiogram 05/14/2024: lvef 65% by visual estimate mild mitral regurg RV enlarged mild left atrium enlarged mild Extremity venous study, 06/01/2024: No left upper extremity DVT. Right internal jugular vein and subclavian vein are not visualized secondary to patient positioning. Nonocclusive thrombus is seen in the right axillary vein and brachial vein. Occlusive thrombus is present at the right cephalic vein. Carotid Doppler, 05/11/2024: 1. Occlusion of the right proximal ICA. 2. Greater than 50% stenosis of the right proximal ECA. 3. Greater than 50% stenosis of the left proximal ICA CT head, 05/11/2024: 1. Chronic lacunar infarct in right centrum semiovale. 2. Chronic periventricular ischemic changes. 3. Cerebral and cerebellar atrophy, likely age-related. 4. Advised further evaluation with MRI brain without contrast if clinically indicated CT abdomen/pelvis, 05/15/2024: Small bowel obstruction with evidence of perforation including free intraperitoneal fluid and air. Extensive subcutaneous emphysema likely secondary to bowel perforation CT abdomen/pelvis, 05/16/2024: 1. Sequelae of recent postsurgical changes as described above. Correlate with surgical history. 2. Pneumoperitoneum and free fluid in the abdomen and pelvis. 3. Large collection containing fluid and gas, predominantly in the right hemiabdomen. There is GI contrast extending into this collection from an adjacent small bowel loop. There is a component of this collection extending adjacent to the anterior superior aspect of the liver. 4. Moderate right hydronephrosis and hydroureter. The distal right ureter appears to be compressed by the large fluid collection in the right hemiabdomen. No obstructing calculus. 5. Dilated small bowel loops in the left hemiabdomen with suspected small-bowel obstruction. 6. Prominent subcutaneous edema in the ventral abdominal wall and extending caudally into the inguinal regions bilaterally, peroneal region, and anterior aspect of the left thigh. 7. Small bilateral pleural effusions with overlying atelectasis. 8. Additional findings as detailed above. CT abdomen, 05/23/2024: Postsurgical changes of the ventral abdomen with interval improvement in the diffuse soft tissue edema and ventral abdominal, pelvis and upper thigh subcutaneous emphysema. Interval significant decrease in size of the loculated collection within the right hemiabdomen and pelvis with small residual. Interval placement of drainage catheters terminating over the left upper abdominal quadrant and left hemipelvis as detailed above. Interval development of small to moderate ascites. Wall thickening of fluid-filled nondistended small bowel loops of the anterior mid to lower abdomen which may be from the surrounding ascites versus enteritis. Additional findings as above CT abdomen staff pelvis, 05/30/2024: 1. Radiodense contrast in the mid abdomen associated with surgical sutures. It is unclear whether this is in bowel or represents a bowel leak. Clinical correlation and continued follow-up is recommended. 2. Right pelvic, anterior abdominal wall and left abdomen drainage catheters in place. No definite abscess identified. 3. Extensive post postsurgical changes of the bowel. 4. Small amount of abdominal and pelvic ascities. 5. Small to moderate right pleural effusion. CTA neck, head, 05/14/24: 1. Complete occlusion of the right cervical internal carotid artery. There may be trickle flow in distal right cervical ICA. 2. Poor flow in the right intracranial ICA likely retrograde perfusion through the contralateral left side posterior circulation through the communicating arteries. 3. High-grade stenosis at the left carotid bulb with at least 70-80% stenosis. Moderate short-segment stenosis in the left proximal ICA with at least 60% stenosis. MRI HEAD, 05/11/2024: 1. Multiple foci of restricted diffusion in the right centrum semiovale and along the right superior frontal lobe compatible with acute to subacute infarcts. There is no evidence of acute hemorrhage or significant surrounding edema. 2. Absence of flow void in the intracranial portions of the right internal carotid artery which is likely occluded. vital signs Vital Sign Date Time Temp Pulse Resp B/P (MAP) Pulse Ox O2 Delivery O2 Flow Rate FiO2 06/07/24 09:30 99.3 93 25 159/31 (73) 100 210.7 06/07/24 08:06 30 06/07/24 08:00 Mechanical Ventilator+ Total Intake and Output 06/06/24 06/06/24 06/07/24 15:00 23:00 07:00 Intake Total 821.586 ml 821.425 ml 837.438 ml Output Total 1800 ml 1770 ml Balance 821.586 ml -978.575 ml -932.562 ml medications Current Medications Medications Dose Ordered Sig/Nora Route Start Time Stop Time Status Last Admin Dose Admin Fentanyl Citrate 250 ml @ 2.5 mls/hr Q24H IV 05/16/24 14:00 06/07/24 03:26 20 MLS/HR Midazolam HCl 50 ml @ 1 mls/hr Q24H IV 05/16/24 21:00 06/07/24 03:24 9 MLS/HR Phenylephrine HCl 250 ml @ 30 mls/hr Q8H20M IV 05/16/24 21:15 05/17/24 06:03 30 MLS/HR Acetaminophen 650 mg Q6HPRN PRN ND 05/16/24 22:30 06/04/24 21:42 650 MG Pantoprazole Sodium 40 mg DAILY IV 05/17/24 10:00 06/07/24 08:11 40 MG Amino Acids 0 ml @ 0 mls/hr PER PHARMACY IV 05/17/24 08:30 Vancomycin HCl 0 ml @ 0 mls/hr UD IV 05/18/24 07:45 Cancel Metoprolol Tartrate 1.25 mg Q6HPRN PRN IV 05/18/24 16:00 05/18/24 16:17 1.25 MG Norepinephrine Bitartrate 32 mg/ Sodium Chloride 250 ml @ 0.938 mls/ hr Q24H IV 05/18/24 16:00 06/04/24 12:06 0.938 MLS/HR Amiodarone HCl 250 ml @ 16.667 mls/ hr Q15H IV 05/18/24 22:30 05/20/24 20:59 16.667 MLS/HR Potassium Chloride 100 ml @ 50 mls/hr Q2H IV 05/22/24 12:30 05/22/24 16:29 Cancel Diagnostic Test (Pha) 1 strip Q6HR 05/24/24 12:00 06/07/24 05:24 1 STRIP Insulin Human Regular FOLLOW SLIDING SCALE Q6HR SC 05/24/24 12:00 06/07/24 05:32 2 UNITS Dextrose 50 ml UD IV 05/24/24 12:00 Dexmedetomidine HCl 400 mcg/ Dextrose 100 ml @ 3.17 mls/hr Q24H IV 05/28/24 20:45 06/07/24 08:19 3.17 MLS/HR Hydralazine HCl 10 mg Q6HP PRN IV 05/30/24 16:15 06/05/24 11:53 10 MG Enoxaparin Sodium 70 mg Q12HR SC 06/01/24 22:00 06/07/24 08:39 70 MG Labetalol HCl 10 mg Q2HPRN PRN IV 06/02/24 07:45 06/07/24 08:15 10 MG Micafungin Sodium 100 mg/Sodium Chloride 100 ml @ 100 mls/hr DAILY IV 06/03/24 10:00 06/07/24 08:11 100 MLS/HR Hydralazine HCl 20 mg Q6HR IV 06/05/24 18:00 06/07/24 05:24 20 MG Fat Emulsion Intravenous 100 ml/Sodium Phosphate 50 meq/ Potassium Acetate 60 meq/Magnesium Sulfate 16 meq/ Multivitamins 10 ml/Chromium/ Copper/Manganese/ Zinc 1 ml/Insulin Human Regular 18 units/Amino Acids/ Dextrose/Purified Water 1,607.68 ml @ 66 mls/hr [id number] IV 06/06/24 20:00 06/07/24 19:59 06/06/24 20:28 66 MLS/HR Ceftriaxone Sodium/Dextrose 50 ml @ 50 mls/hr DAILY IV 06/07/24 10:00 06/07/24 08:36 50 MLS/HR Metronidazole 100 ml @ 100 mls/hr Q8HR IV 06/06/24 22:00 06/07/24 05:24 100 MLS/HR objective General: the patient is well developed and nourished. No acute distress. ABDOMEN: Status post surgery MENTAL STATUS: Subjective. CRANIAL NERVES: Pupils are round and reactivel. There are corneal reflexes and doll's eyes phenomenon. No signs of facial weakness. There are weak gagging or coughing reflexes SENSATION: No responses to pain stimuli. MOTOR: Normal tone in the upper and lower extremity. Normal muscle bulk. No fasciculations. No spontaneous movement. REFLEXES: Deep tendon reflexes are symmetrical. No pathological reflexes. CEREBELLAR/COORDINATION: Deferred GAIT/STATION: deferred. laboratory and microbiology Laboratory Tests 06/07/24 03:18 Test 06/07/24 03:18 Range/Units Serum Glucose 139 H 74-106 mg/dL Problem List Pelvic prolapse, can count urethrovesical junction, surgery repair on 05/07/2024 (Robotic supracervical hysterectomy bilateral salpingo-oophorectomy colposcopic pexy cystocele repair urethral sling partial vaginectomy) Bowel obstruction with perforation, intra-abdominal abscess, dense at [place], status post surgery 05/16/2024 Sepsis/septic shock Metabolic encephalopathy Acute right MCA territory multiple strokes Left hemiparesis Right ICA occlusion Left ICA severe stenosis Anemia, with unstable H&H Status post oophorectomy, hysterectomy Anisocoria, uncertain clinical significance (small and equal pupils on 06/06/2024) DVT Assessment/Plan Monitoring Supportive treatment ICU care Stabilize vitals/pressor drip Respiratory support/vent management IV antibiotics Oxygen Lovenox 70 mg subQ b.i.d. TPN GI prophylaxis Further address bilateral carotid stenosis CLARA on discharge Surgery on case Okay to use Lovenox for DVT from neurologic point of view More recommendation per clinical course This medical document was created using an electronic medical record system with [employer] dictation system. Although this document has been carefully reviewed, there may still be some phonetic and typographical errors. These areas are purely typographical due to imperfections of the software programs, and do not reflect any compromise in the patient's medical care Prognosis Guarded Dietary Evaluation Review Comments: 1) Advance pt diet when medically feasible to a 2gmNa diet modified per IT TRAINING SPECIALIST recommendations 2) Continue current plan of care Expected Outcomes/Goals: 1) Pt diet to advance 2) F/U in 2-3 days Plan discussed with: Other BRYAN FLORES MD Jun 07, 2024 10:41
--- NOTE | 2024-06-07 11:31 | DVHPN2 ---
Progress Note Date Seen: Jun 07, 2024 Has the PT tested + for MRSA If YES, has PT been informed?: No Medical Necessity Reason Pt with a Central, PICC or Fol: Yes The following are medically ne: Muhammad Catheter Reason for muhammad catheter: Strict I&O Objective vital signs Vital Sign Date Time Temp Pulse Resp B/P (MAP) Pulse Ox O2 Delivery O2 Flow Rate FiO2 06/07/24 10:47 99.3 87 26 149/50 (83) 97 210.7 06/07/24 10:31 30 06/07/24 10:00 Mechanical Ventilator+ Total Intake and Output 06/06/24 06/06/24 06/07/24 15:00 23:00 07:00 Intake Total 821.586 ml 821.425 ml 837.438 ml Output Total 1800 ml 1770 ml Balance 821.586 ml -978.575 ml -932.562 ml medications Current Medications Medications Dose Ordered Sig/Nora Route Start Time Stop Time Status Last Admin Dose Admin Fentanyl Citrate 250 ml @ 2.5 mls/hr Q24H IV 05/16/24 14:00 06/07/24 03:26 20 MLS/HR Midazolam HCl 50 ml @ 1 mls/hr Q24H IV 05/16/24 21:00 06/07/24 03:24 9 MLS/HR Phenylephrine HCl 250 ml @ 30 mls/hr Q8H20M IV 05/16/24 21:15 05/17/24 06:03 30 MLS/HR Acetaminophen 650 mg Q6HPRN PRN NC 05/16/24 22:30 06/04/24 21:42 650 MG Pantoprazole Sodium 40 mg DAILY IV 05/17/24 10:00 06/07/24 08:11 40 MG Amino Acids 0 ml @ 0 mls/hr PER PHARMACY IV 05/17/24 08:30 Vancomycin HCl 0 ml @ 0 mls/hr UD IV 05/18/24 07:45 Cancel Metoprolol Tartrate 1.25 mg Q6HPRN PRN IV 05/18/24 16:00 05/18/24 16:17 1.25 MG Norepinephrine Bitartrate 32 mg/ Sodium Chloride 250 ml @ 0.938 mls/ hr Q24H IV 05/18/24 16:00 06/04/24 12:06 0.938 MLS/HR Amiodarone HCl 250 ml @ 16.667 mls/ hr Q15H IV 05/18/24 22:30 05/20/24 20:59 16.667 MLS/HR Potassium Chloride 100 ml @ 50 mls/hr Q2H IV 05/22/24 12:30 05/22/24 16:29 Cancel Diagnostic Test (Pha) 1 strip Q6HR 05/24/24 12:00 06/07/24 05:24 1 STRIP Insulin Human Regular FOLLOW SLIDING SCALE Q6HR SC 05/24/24 12:00 06/07/24 05:32 2 UNITS Dextrose 50 ml UD IV 05/24/24 12:00 Dexmedetomidine HCl 400 mcg/ Dextrose 100 ml @ 3.17 mls/hr Q24H IV 05/28/24 20:45 06/07/24 08:19 3.17 MLS/HR Hydralazine HCl 10 mg Q6HP PRN IV 05/30/24 16:15 06/05/24 11:53 10 MG Enoxaparin Sodium 70 mg Q12HR SC 06/01/24 22:00 06/07/24 08:39 70 MG Labetalol HCl 10 mg Q2HPRN PRN IV 06/02/24 07:45 06/07/24 08:15 10 MG Micafungin Sodium 100 mg/Sodium Chloride 100 ml @ 100 mls/hr DAILY IV 06/03/24 10:00 06/07/24 08:11 100 MLS/HR Hydralazine HCl 20 mg Q6HR IV 06/05/24 18:00 06/07/24 05:24 20 MG Fat Emulsion Intravenous 100 ml/Sodium Phosphate 50 meq/ Potassium Acetate 60 meq/Magnesium Sulfate 16 meq/ Multivitamins 10 ml/Chromium/ Copper/Manganese/ Zinc 1 ml/Insulin Human Regular 18 units/Amino Acids/ Dextrose/Purified Water 1,607.68 ml @ 66 mls/hr [id number] IV 06/06/24 20:00 06/07/24 19:59 06/06/24 20:28 66 MLS/HR Ceftriaxone Sodium/Dextrose 50 ml @ 50 mls/hr DAILY IV 06/07/24 10:00 06/07/24 08:36 50 MLS/HR Metronidazole 100 ml @ 100 mls/hr Q8HR IV 06/06/24 22:00 06/07/24 05:24 100 MLS/HR laboratory and microbiology Laboratory Tests 06/07/24 03:18 Test 06/07/24 03:18 Range/Units Serum Glucose 139 H 74-106 mg/dL Microbiology Date/Time Source Procedure Growth Status 06/06/24 14:23 Urine - Muhammad Port Urine Culture - Preliminary Resulted 06/06/24 07:57 Catheter Site Aerobic Culture - Preliminary Resulted 06/02/24 11:02 Blood Blood Culture - Final NO GROWTH AFTER 5 DAYS OF INCUBATION. 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 CPAP TRIAL ONGOING WBC WNL ABD SOFT DRAINS IN PLACE DRESSING ABD WOUND DRAINAGE NOTED AND EXPECTED BUT LESS CONDITION GUARDED ILEOSTOMY VIABLE AND FUNCTIONAL NURSE AT BEDSIDE CONTINUE SUPPORTIVE CARE PULM EVAL ONGOING CONSIDER TRACH BASED ON ONGOING EVAL AND FAMILY TO BE INFORMED FOR CONSENT Plan discussed with: Other My Orders My Orders Orders - SHEY COVARRUBIAS MD Procedure Category Date Status Time Wound Culture W/ Gs MIROSLAVA 06/06/24 In Process 19:39 Wound Culture W/ Gs MIROSLAVA 06/06/24 In Process 19:50 Wound Culture W/ Gs MIROSLAVA 06/06/24 In Process 20:00 Dietary Evaluation Review Comments: 1) Advance pt diet when medically feasible to a 2gmNa diet modified per INSTRUCTOR INDUSTRIAL DESIGN recommendations 2) Continue current plan of care Expected Outcomes/Goals: 1) Pt diet to advance 2) F/U in 2-3 days SHEY COVARRUBIAS MD Jun 07, 2024 11:31
[2024-06-07 15:16] LABS: Base Excess 0.5 mmol/L (-2.0-3.0)
--- NOTE | 2024-06-07 15:37 | DVHPN2 ---
Subjective Is off sedation She is following commands CPAP is in progress Possible extubation today Reviewed: Care Plan, H&P, Labs, Medications, Previous Orders, Radiology Changes from previous H/P or p: Changes General: Per HPI Eyes: No Pain, No Vision change, No Conjunctivae inflammation, No Eyelid inflammation, No Other, No Redness ENT: No Ear pain, No Ear discharge, No Nose pain, No Nose discharge, No Nose congestion, No Mouth pain, No Mouth swelling, No Throat pain, No Throat swelling, No Other Cardiovascular: No Chest Pain, No Palpitations, No Orthopnea, No Paroxysmal Noc. Dyspnea, No Edema, No Lt Headedness, No Other Respiratory: No Cough, No Dry, No Shortness of breath, No SOB with excertion, No Wheezing, No Hemoptysis, No Pleuritic Pain, No Sputum, No Other Gastrointestinal: Nausea Genitourinary: No Dysuria, No Frequency, No Incontinence, No Hematuria, No Retention, No Other Musculoskeletal: No other, No neck pain, No shoulder pain, No arm pain, No back pain, No hand pain, No leg pain, No foot pain Skin: No Rash, No Lesions, No Jaundice, No Bruising, No Other Objective Vitals Vital Signs Date Time Temp Pulse Resp B/P (MAP) Pulse Ox O2 Delivery O2 Flow Rate FiO2 06/07/24 14:07 105 28 160/45 (83) 95 30 06/07/24 14:00 Mechanical Ventilator+ 06/07/24 14:00 99.1 210.4 Intake/Output Intake and Output 06/07/24 07:00 Intake Total 2480.449 ml Output Total 3570 ml Balance -1089.551 ml IV Total 2480.449 ml Output Urine Total 2900 ml Stool Total 20 ml Gastric Drainage Total 580 ml Drainage Total 40 ml Other 30 ml General Appearance: moderate distress, Other (Intubated and sedated) HEENT: Atraumatic, PERRLA, Other (Pupils equal, 4 mm, reactive to light to 3 mm) Lungs: Clear to auscultation, Normal air movement, Other (Mechanical ventilation) Cardiovascular: Regular rate, Normal S1, Normal S2 Abdomen: Other (Ileostomy with drainage. 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) Skin: Dry, Intact, Other (Surgical incision dry and intact) Psych/Mental Status: Mental status NL, Mood NL Medications Current Medications Medications Dose Ordered Sig/Nora Route Start Time Stop Time Status Last Admin Dose Admin Fentanyl Citrate 250 ml @ 2.5 mls/hr Q24H IV 05/16/24 14:00 06/07/24 03:26 20 MLS/HR Midazolam HCl 50 ml @ 1 mls/hr Q24H IV 05/16/24 21:00 06/07/24 03:24 9 MLS/HR Phenylephrine HCl 250 ml @ 30 mls/hr Q8H20M IV 05/16/24 21:15 05/17/24 06:03 30 MLS/HR Acetaminophen 650 mg Q6HPRN PRN [place] 05/16/24 22:30 06/04/24 21:42 650 MG Pantoprazole Sodium 40 mg DAILY IV 05/17/24 10:00 06/07/24 08:11 40 MG Amino Acids 0 ml @ 0 mls/hr PER PHARMACY IV 05/17/24 08:30 Vancomycin HCl 0 ml @ 0 mls/hr UD IV 05/18/24 07:45 Cancel Metoprolol Tartrate 1.25 mg Q6HPRN PRN IV 05/18/24 16:00 05/18/24 16:17 1.25 MG Norepinephrine Bitartrate 32 mg/ Sodium Chloride 250 ml @ 0.938 mls/ hr Q24H IV 05/18/24 16:00 06/04/24 12:06 0.938 MLS/HR Amiodarone HCl 250 ml @ 16.667 mls/ hr Q15H IV 05/18/24 22:30 05/20/24 20:59 16.667 MLS/HR Potassium Chloride 100 ml @ 50 mls/hr Q2H IV 05/22/24 12:30 05/22/24 16:29 Cancel Diagnostic Test (Pha) 1 strip Q6HR 05/24/24 12:00 06/07/24 11:22 1 STRIP Insulin Human Regular FOLLOW SLIDING SCALE Q6HR SC 05/24/24 12:00 06/07/24 11:36 2 UNITS Dextrose 50 ml UD IV 05/24/24 12:00 Dexmedetomidine HCl 400 mcg/ Dextrose 100 ml @ 3.17 mls/hr Q24H IV 05/28/24 20:45 06/07/24 08:19 3.17 MLS/HR Hydralazine HCl 10 mg Q6HP PRN IV 05/30/24 16:15 06/05/24 11:53 10 MG Enoxaparin Sodium 70 mg Q12HR SC 06/01/24 22:00 06/07/24 08:39 70 MG Labetalol HCl 10 mg Q2HPRN PRN IV 06/02/24 07:45 06/07/24 08:15 10 MG Micafungin Sodium 100 mg/Sodium Chloride 100 ml @ 100 mls/hr DAILY IV 06/03/24 10:00 06/07/24 08:11 100 MLS/HR Hydralazine HCl 20 mg Q6HR IV 06/05/24 18:00 06/07/24 11:19 20 MG Fat Emulsion Intravenous 100 ml/Sodium Phosphate 50 meq/ Potassium Acetate 60 meq/Magnesium Sulfate 16 meq/ Multivitamins 10 ml/Chromium/ Copper/Manganese/ Zinc 1 ml/Insulin Human Regular 18 units/Amino Acids/ Dextrose/Purified Water 1,607.68 ml @ 66 mls/hr [id number] IV 06/06/24 20:00 06/07/24 19:59 06/06/24 20:28 66 MLS/HR Ceftriaxone Sodium/Dextrose 50 ml @ 50 mls/hr DAILY IV 06/07/24 10:00 06/07/24 08:36 50 MLS/HR Metronidazole 100 ml @ 100 mls/hr Q8HR IV 06/06/24 22:00 06/07/24 13:59 100 MLS/HR Fat Emulsion Intravenous 100 ml/Sodium Phosphate 40 meq/ Potassium Acetate 50 meq/Magnesium Sulfate 16 meq/ Multivitamins 10 ml/Chromium/ Copper/Manganese/ Zinc 1 ml/Insulin Human Regular 20 units/Amino Acids/ Dextrose/Purified Water 1,700.2 ml @ 71 mls/hr [id number] IV 06/07/24 20:00 06/08/24 19:59 Laboratory Results Laboratory Tests 06/07/24 03:18 Chemistry Test 06/07/24 03:18 Albumin 2.9 g/dL (3.2-4.8) L Calcium Level 10.0 mg/dL (8.7-10.4) Magnesium Level 2.1 mg/dL (1.6-2.6) Phosphorus Level 3.9 mg/dL (2.4-5.1) Total Protein 6.3 g/dL (5.7-8.2) LFT Test 06/07/24 03:18 Alanine Aminotransferase (ALT) 22 U/L (7-40) Alkaline Phosphatase 178 U/L (46-116) H Aspartate Amino Transferase (AST) 20 U/L (13-40) Total Bilirubin 1.2 mg/dL (0.2-1.0) H Urinalysis Test 05/11/24 16:18 Urine Color Yellow (Yellow) Urine Clarity Clear (Clear) Urine pH 6.0 (5.0-9.0) Urine Specific Staples 1.020 (1.001-1.035) Urine Protein 1+ (Negative) H Urine Ketones 4+ (Negative) H Urine Blood Trace /uL (Negative) H Urine Nitrite Negative (Negative) Urine Bilirubin Negative (Negative) Urine Urobilinogen Normal mg/dL (Negative) Urine Leukocyte Esterase Negative /uL (Negative) Urine RBC 2 /hpf (0 - 4) Urine WBC 2 /hpf (0 - 5) Urine Squamous Epithelial Cells Few /hpf (<5) Urine Bacteria None seen /hpf (None Seen) Urine Mucus Few (None Seen) Urine Glucose Normal mg/dL (Normal) Blood Gas Results Test 06/07/24 06:47 06/07/24 15:07 Arterial Blood pH 7.437 (7.350-7.450) 7.494 (7.350-7.450) FiO2 % 30.0 30.0 Microbiology Microbiology Date/Time Source Procedure Growth Status 06/06/24 14:23 Urine - [place] Urine Culture - Preliminary Resulted 06/06/24 07:57 Catheter Site Aerobic Culture - Preliminary Resulted 06/02/24 11:02 Blood Blood Culture - Final NO GROWTH AFTER 5 DAYS OF INCUBATION. Complete 05/16/24 14:20 Sputum Gram Stain - Final Complete 05/16/24 14:20 Respiratory Culture - Final Yeast, not Shawanda albicans Complete Assessment/Plan Assessment/Plan Robotic surgery hysterectomy and salpingo-oophorectomy complicated by Acute CVA Acute CVA w LUE hemiparesis Bowel perforation with repeat exploratory laparotomy with ileostomy creation History of breast cancer with bilateral mastectomies Afib RVR Acute hypoxic respiratory failure Mechanical intubation Exploratory laparotomy, drainage of intraabdominal abscess, thorough peritoneal lavage with reinforcement of the anastomotic location of the previous anastomosis as well as a diverting loop ileostomy on 05/24/24 Anemia Right upper extremity DVT Plan Mechanical ventilation TPN IV antibiotics: Vancomycin + Meropenem No vasopressors Sedation prn GI Prophylaxis: Protonix Transfuse blood prn 05/29/24: Transfuse 1 unit RBCs for Hb 5.9 Lasix 20 mg IV x1 Check Hb after transfusion Off pressors Antibiotics: Meropenem, Vanco, Micafungin Amiodarone IV Taper sedation down as tolerated CXR: Clear TPN Protonix 05/30/24: Discussed with Dr. Fritz Lake Will do CT ABD pelvis to follow up on abscess IV antibiotics Taper sedation down C-PAP? per Dr. Poon 05/31/24: CT abdomen showed no fluid collection IV antibiotics: Meropenem, Vancomycin & Micafungin Amiodarone Dr. Fritz Lake recommended to continue medical treatment, no surgical intervention Sedation as needed TPN 06/01/2024: Start Lovenox 70 mg subQ q.[address] Lake and Neurology IV antibiotics meropenem and vancomycin Micafungin TPN Tapered down sedation as tolerated 06/02/24: Fever Yeast in cultures: Micafungin IV antibiotics: Meropenem & Vanco TPN RUE DVT: Lovenox Normocytic anemia 7.9 Consult ID [place] Cultures Afib: Amiodarone drip Discussed with her sister over the phone 06/03/2024: IV antibiotics: Meropenem and vancomycin IV antifungal: Micafungin TPN Amiodarone IV Dr. Fritz Lake for surgery is on the case 06/04/24: Abdominal infection: IV antibiotics: Meropenem, Vanco and Micafungin TPN Amiodarone Surgery on case: Will discuss with Dr. Fritz Lake regarding tracheostomy ID consult is pending Discussed with sister over the phone, family is agreeable with the trach Anemia: Transfuse one unit RBCs 06/05/24: Hypokalemia: Replace IV antibiotics: Meropenem and Vanco IV antifungals: Micafungin TPN Amiodarone Discussed with Dr. Lake regarding tracheostomy Remove central line PICC line 06/06/24: Repeat CT abdomen & pelvis Discussed with her sister Lianet over the phone Discussed the advance directives She stated that patient as stated before that she wants to be treated but only if she becomes a vegetable then she would stop the treatment The family for now would like to continue treatment We will get a new blood and urine and sputum cultures Continue IV antibiotics and IV antifungal Dr. Lake is evaluating the patient for possible tracheostomy in the next few days 06/07/2024: Off sedation CPAP trial TPN Amiodarone IV antibiotics and antifungals Full code Plan discussed with: Other My Orders Orders - BARI MOORE MD Procedure Category Date Status Time Chest Xray 1 View XY 06/07/24 Resulted 04:00 Date of Service: Jun 07, 2024 Billing Provider: BARI MOORE MD Common Visit Codes: NOT BILLABLE BARI MOORE MD Jun 07, 2024 15:37
[2024-06-07] MEDS: EPINEPHrine HCL 0.5 ML NEB NEB ONE (15:58)
--- NOTE | 2024-06-07 20:13 | DVHPN2 ---
Consult Progress Note Date Seen: Jun 07, 2024 Subjective Patient reports: Other (excavated today to hypo nasal canula, has a vm1gtud breath and sounds in both lungs) Objective vital signs Vital Sign Date Time Temp Pulse Resp B/P (MAP) Pulse Ox O2 Delivery O2 Flow Rate FiO2 06/07/24 19:31 99.3 79 29 112/33 (59) 100 210.7 06/07/24 18:00 Cool Aerosol 10 40 40 Total Intake and Output 06/06/24 06/06/24 06/07/24 14:59 22:59 06:59 Intake Total 822.086 ml 820.765 ml 850.0 ml Output Total 1800 ml 1770 ml Balance 822.086 ml -979.235 ml -920.0 ml medications Current Medications Medications Dose Ordered Sig/Nora Route Start Time Stop Time Status Last Admin Dose Admin Fentanyl Citrate 250 ml @ 2.5 mls/hr Q24H IV 05/16/24 14:00 06/07/24 03:26 20 MLS/HR Midazolam HCl 50 ml @ 1 mls/hr Q24H IV 05/16/24 21:00 06/07/24 03:24 9 MLS/HR Phenylephrine HCl 250 ml @ 30 mls/hr Q8H20M IV 05/16/24 21:15 05/17/24 06:03 30 MLS/HR Acetaminophen 650 mg Q6HPRN PRN [place] 05/16/24 22:30 06/04/24 21:42 650 MG Pantoprazole Sodium 40 mg DAILY IV 05/17/24 10:00 06/07/24 08:11 40 MG Amino Acids 0 ml @ 0 mls/hr PER PHARMACY IV 05/17/24 08:30 Vancomycin HCl 0 ml @ 0 mls/hr UD IV 05/18/24 07:45 Cancel Metoprolol Tartrate 1.25 mg Q6HPRN PRN IV 05/18/24 16:00 05/18/24 16:17 1.25 MG Norepinephrine Bitartrate 32 mg/ Sodium Chloride 250 ml @ 0.938 mls/ hr Q24H IV 05/18/24 16:00 06/04/24 12:06 0.938 MLS/HR Amiodarone HCl 250 ml @ 16.667 mls/ hr Q15H IV 05/18/24 22:30 05/20/24 20:59 16.667 MLS/HR Potassium Chloride 100 ml @ 50 mls/hr Q2H IV 05/22/24 12:30 05/22/24 16:29 Cancel Diagnostic Test (Pha) 1 strip Q6HR 05/24/24 12:00 06/07/24 18:16 1 STRIP Insulin Human Regular FOLLOW SLIDING SCALE Q6HR SC 05/24/24 12:00 06/07/24 18:17 4 UNITS Dextrose 50 ml UD IV 05/24/24 12:00 Dexmedetomidine HCl 400 mcg/ Dextrose 100 ml @ 3.17 mls/hr Q24H IV 05/28/24 20:45 06/07/24 08:19 3.17 MLS/HR Hydralazine HCl 10 mg Q6HP PRN IV 05/30/24 16:15 06/05/24 11:53 10 MG Enoxaparin Sodium 70 mg Q12HR SC 06/01/24 22:00 06/07/24 08:39 70 MG Labetalol HCl 10 mg Q2HPRN PRN IV 06/02/24 07:45 06/07/24 08:15 10 MG Micafungin Sodium 100 mg/Sodium Chloride 100 ml @ 100 mls/hr DAILY IV 06/03/24 10:00 06/07/24 08:11 100 MLS/HR Hydralazine HCl 20 mg Q6HR IV 06/05/24 18:00 06/07/24 11:19 20 MG Ceftriaxone Sodium/Dextrose 50 ml @ 50 mls/hr DAILY IV 06/07/24 10:00 06/07/24 08:36 50 MLS/HR Metronidazole 100 ml @ 100 mls/hr Q8HR IV 06/06/24 22:00 06/07/24 13:59 100 MLS/HR Fat Emulsion Intravenous 100 ml/Sodium Phosphate 40 meq/ Potassium Acetate 50 meq/Magnesium Sulfate 16 meq/ Multivitamins 10 ml/Chromium/ Copper/Manganese/ Zinc 1 ml/Insulin Human Regular 20 units/Amino Acids/ Dextrose/Purified Water 1,700.2 ml @ 71 mls/hr [id number] IV 06/07/24 20:00 06/08/24 19:59 laboratory and microbiology Laboratory Tests 06/07/24 03:18 Test 06/07/24 03:18 Range/Units Serum Glucose 139 H 74-106 mg/dL Problem List/Assessment/Plan Problems(with codes): (1) Fungal infection (2) Intra-abdominal abscess (3) SBO (small bowel obstruction) (4) Stroke (5) Anemia (6) Breast cancer (7) Hypertension Problem List/Assessment/Plan Assessment and Plan: ID Problem List: 1. Small bowel obstruction with perforation 2. Septic shock 3. Stroke, right MCA territory 4. Hypertension 5. Anemia 6. Breast cancer 7. Bilateral mastectomy 8. Post-surgical complications (including ileostomy creation) 9. Fungal infection (yeast not Shawanda albicans) 10. Strep Viridans Group B infection Assessment: This is a 68-year-old female, with a significant past medical history of anemia, hypertension, breast cancer status post bilateral mastectomy, and a 50 pack-year smoking history (now quit), who was initially admitted for a robotic hysterectomy with bilateral salpingectomy, removal of a right ovarian mass, cystocele repair with urethral sling. Postoperatively, she developed hypertension and nausea, necessitating overnight admission. Post-admission, she endured a cerebrovascular accident primarily impacting the right MCA territory and contributing to left-sided weakness. Subsequent evaluations included MRI and CT head scans that confirmed multiple acute and subacute infarcts. Later complications included progression to an acute small bowel obstruction with perforation, leading to emergent exploratory laparotomy and subsequent ileostomy creation. Cultures from the surgical sites revealed a non-Shawanda albicans yeast and Strep Viridans Group B infection. The patient continues to require ICU support, primarily due to ongoing septic shock and the need for ventilatory assistance. Patient remains intubated with vasopressors being weaned off. Recent WBC count was 16.9 and hemoglobin levels have fluctuated, dropping as low as 5.9. She has been transitioned to a multi-antibiotic regimen including meropenem, vancomycin, and TPN for nutritional support. 06/04: hemaglobin of 6.9, suspect ongoing blood loss. Preliminary blood cultures are no growth for 48 hours as well as wound and urine cultures with no growth 06/05: hemaglobin of 8.4 after blood transfusion. Repeat cultures of the abdomen is showing no organisms 06/06: Ct pelvis abdomen shows faily stable appearing radio dense contrast in the central mid abdomen with adjacent surgical sutures. Small bowel anacitis. drainage catheter terminating in the pelvis and upper abdomen, stable appearing intraabdominal acities. extensive post-surgical changes that ate unchanged. a small to moderate right mid size plural effusion. Chest x-ray was done and shows no focal consolidation in the lungs 06/07: Chest x-ray done before the excavation, showing pulmonary disease Plan: 1. continue cephtriaxone and flagell, when patient can tolerate oral can switch to oral of these medications 2. Continue micafungin for fungal infection, may consider switching if yeast infection persists but will hold off for now 3. check blood cultures and check surgical site wound culture 4. Provide ICU support with ventilator for respiratory status and hemodynamic monitoring. 5. Supportive care measures for septic shock, including fluid resuscitation and vasopressor management. 6. Monitor and maintain drainage output. 7. Ensure adequate nutritional support through TPN. 8. Follow-up with surgical team for wound care and any necessary surgical interventions. 9. if hypotension persists, recommend repeating Ct of abdomen in a few days to rule out hematoma 10. monitor patients resopse to all regimens clinically when patient passes bedside swallow Authorized and Performed by: mey ayala MD Total critical care time: Approximately 76 minutes Due to a high probability of clinically significant, life threatening deterioration, the patient required my highest level of preparedness to intervene emergently and I personally spent this critical care time directly and personally managing the patient. This critical care time included obtaining a history; examining the patient; pulse oximetry; ordering and review of studies; arranging urgent treatment with development of a management plan; evaluation of patient's response to treatment; frequent reassessment; and, discussions with other providers. This critical care time was performed to assess and manage the high probability of imminent, life-threatening deterioration that could result in multi-organ failure. It was exclusive of separately billable procedures and treating other patients and teaching time. Plan discussed with: Other Dietary Evaluation Review Comments: 1) Advance pt diet when medically feasible to a 2gmNa diet modified per [employer] TE[employer]ER recommendations 2) Continue current plan of care Expected Outcomes/Goals: 1) Pt diet to advance 2) F/U in 2-3 days MEY AYALA MD Jun 07, 2024 20:13
[2024-06-07] MEDS: TPN PER PHARMACY IV NR (20:23)
--- NOTE | 2024-06-07 21:59 | DVHPN2 ---
Progress Note - Dictate Date Seen: Jun 07, 2024 Has the PT tested + for MRSA If YES, has PT been informed?: No Medical Necessity Reason Pt with a Central, PICC or Fol: Yes The following are medically ne: Muhammad Catheter Reason for muhammad catheter: Strict I&O Subjective Patient seen and examined at bedside. S/p extubation, on supplemental oxygen. Overnight events reviewed. vital signs Vital Sign Date Time Temp Pulse Resp B/P (MAP) Pulse Ox O2 Delivery O2 Flow Rate FiO2 06/07/24 21:00 99.5 89 13 179/59 (99) 100 211.1 06/07/24 20:00 Mechanical Ventilator+ 30 30 06/07/24 20:00 10 Total Intake and Output 06/06/24 06/06/24 06/07/24 15:00 23:00 07:00 Intake Total 821.586 ml 821.425 ml 837.438 ml Output Total 1800 ml 1770 ml Balance 821.586 ml -978.575 ml -932.562 ml medications Current Medications Medications Dose Ordered Sig/Nora Route Start Time Stop Time Status Last Admin Dose Admin Fentanyl Citrate 250 ml @ 2.5 mls/hr Q24H IV 05/16/24 14:00 06/07/24 03:26 20 MLS/HR Midazolam HCl 50 ml @ 1 mls/hr Q24H IV 05/16/24 21:00 06/07/24 03:24 9 MLS/HR Phenylephrine HCl 250 ml @ 30 mls/hr Q8H20M IV 05/16/24 21:15 05/17/24 06:03 30 MLS/HR Acetaminophen 650 mg Q6HPRN PRN PA 05/16/24 22:30 06/07/24 21:44 650 MG Pantoprazole Sodium 40 mg DAILY IV 05/17/24 10:00 06/07/24 08:11 40 MG Amino Acids 0 ml @ 0 mls/hr PER PHARMACY IV 05/17/24 08:30 Vancomycin HCl 0 ml @ 0 mls/hr UD IV 05/18/24 07:45 Cancel Metoprolol Tartrate 1.25 mg Q6HPRN PRN IV 05/18/24 16:00 05/18/24 16:17 1.25 MG Norepinephrine Bitartrate 32 mg/ Sodium Chloride 250 ml @ 0.938 mls/ hr Q24H IV 05/18/24 16:00 06/04/24 12:06 0.938 MLS/HR Amiodarone HCl 250 ml @ 16.667 mls/ hr Q15H IV 05/18/24 22:30 05/20/24 20:59 16.667 MLS/HR Potassium Chloride 100 ml @ 50 mls/hr Q2H IV 05/22/24 12:30 05/22/24 16:29 Cancel Diagnostic Test (Pha) 1 strip Q6HR 05/24/24 12:00 06/07/24 18:16 1 STRIP Insulin Human Regular FOLLOW SLIDING SCALE Q6HR SC 05/24/24 12:00 06/07/24 18:17 4 UNITS Dextrose 50 ml UD IV 05/24/24 12:00 Dexmedetomidine HCl 400 mcg/ Dextrose 100 ml @ 3.17 mls/hr Q24H IV 05/28/24 20:45 06/07/24 08:19 3.17 MLS/HR Hydralazine HCl 10 mg Q6HP PRN IV 05/30/24 16:15 06/05/24 11:53 10 MG Enoxaparin Sodium 70 mg Q12HR SC 06/01/24 22:00 06/07/24 08:39 70 MG Labetalol HCl 10 mg Q2HPRN PRN IV 06/02/24 07:45 06/07/24 20:54 10 MG Micafungin Sodium 100 mg/Sodium Chloride 100 ml @ 100 mls/hr DAILY IV 06/03/24 10:00 06/07/24 08:11 100 MLS/HR Hydralazine HCl 20 mg Q6HR IV 06/05/24 18:00 06/07/24 11:19 20 MG Ceftriaxone Sodium/Dextrose 50 ml @ 50 mls/hr DAILY IV 06/07/24 10:00 06/07/24 08:36 50 MLS/HR Metronidazole 100 ml @ 100 mls/hr Q8HR IV 06/06/24 22:00 06/07/24 13:59 100 MLS/HR Fat Emulsion Intravenous 100 ml/Sodium Phosphate 40 meq/ Potassium Acetate 50 meq/Magnesium Sulfate 16 meq/ Multivitamins 10 ml/Chromium/ Copper/Manganese/ Zinc 1 ml/Insulin Human Regular 20 units/Amino Acids/ Dextrose/Purified Water 1,700.2 ml @ 71 mls/hr [id number] IV 06/07/24 20:00 06/08/24 19:59 06/07/24 20:23 71 MLS/HR objective Gen.: Patient lying in bed in no apparent distress. S/p extubation, on supplemental oxygen. Head: Normocephalic, atraumatic. Eyes: EOMI/PERRLA. Ears: Normal hearing. Normal anatomy. Neck/trachea: Trachea midline, supple. Nose: Normal external anatomy. Mouth: Moist mucous membranes. Chest: Decreased air entry bilaterally. No wheezing or rhonchi. Cardiovascular: Positive S1, positive S2. Regular rate and rhythm. Abdomen: Positive bowel sounds in all 4 quadrants. Soft, non-tender, non- distended. : Deferred. Rectal: Deferred. Skin: Warm, dry. Intact. Extremities: 2+ radial pulses bilaterally. No lower extremity edema. Neuro: Awake, alert, oriented x3. No gross motor or sensory deficits. Cranial nerves II through XII intact. Gait not assessed. laboratory and microbiology Laboratory Tests 06/07/24 03:18 Test 06/07/24 03:18 Range/Units Serum Glucose 139 H 74-106 mg/dL Assessment/Plan Impression: Acute hypoxic respiratory failure On mechanical ventilator Abdominal pain due to recent robotic surgery hysterectomy and salpingo- oophorectomy History of breast cancer with bilateral mastectomies History of bowel surgery and ileostomy Anemia due to hemorrhage on hemodilution Shock Chronic pain syndrome Anemia Atrial fibrillation with RVR Bowel perforation with repeat exploratory laparotomy with ileostomy creation Events: Vent support RR 16, tidal volume 400, PEEP 5, FiO2 30% Chest x-ray shows devices in place; no consolidation, pleural effusion or pneumothorax TPN for nutritional support Amiodarone infusion on hold. Upper extremity Doppler showed nonocclusive thrombus in the right axillary vein and brachial vein Currently on enoxaparin 70 mg subcutaneous Blood cultures revealed growth of yeast but not Shawanda albicans Currently on micafungin intravenous, Continue abx with ceftriaxone, metronidazole. On Versed, fentanyl for sedation CPAP trial today - patient tolerated. She was subsequently extubated uneventfully - placed on 10L 40% FiO2 Cool mist via aerosol mask On TPN at 60 mL/hour IV Pantoprazole 40 for the prevention of stress ulcer DVT prophylaxis- on enoxaparin 70 SC Rest of plan as outlined below. Plan: Patient is s/p uneventful extubation. CXR, ABG reviewed. Pressors as necessary for hemodynamic support Titrate to keep mean arterial pressure greater than 65 mmHg. Continue antibiotics. F/u cultures. Monitor hemoglobin Transfuse if less than 7.0 grams/deciliter Monitor renal function due to Acute kidney injury. Monitor electrolytes. Supplement as necessary. Surgery recommendations appreciated. Nutritional support. On TPN Accucheks, ISS. GI/DVT prophylaxis. Condition: Critical Prognosis: Poor given multiple comorbidities. Rest of plan per hospitalist and other consultants. A total of 35 minutes of critical care time was spent reviewing the patient record, examining the patient, making a diagnostic and therapeutic plan, discussing this plan with the medical personnel, following up on diagnostic studies and following the patient for clinical stability excluding any and all procedures. At least 50% of this time was spent in direct, [id number] contact. Thank you Dr Reid for allowing me to participate in this patient's care. Further recommendations will depend on patient's clinical course. Please do not hesitate to contact me if you have any questions or concerns. This medical document was created using an electronic medical record system with [employer] dictation system. Although this document has been carefully reviewed, there may still be some phonetic and typographical errors. These areas are purely typographical due to imperfections of the software programs, and do not reflect any compromise in the patient's medical care. Dietary Evaluation Review Comments: 1) Advance pt diet when medically feasible to a 2gmNa diet modified per [employer] TELEVISION ANNOUNCER recommendations 2) Continue current plan of care Expected Outcomes/Goals: 1) Pt diet to advance 2) F/U in 2-3 days Plan discussed with: Other (YASH Paez) Critical Care Time(min): 35 RG LEONE MD Jun 07, 2024 21:59
[2024-06-08] VITALS (89 sets, daily range): BP systolic 86–179; BP diastolic 17–100; PULSE 68–123; RESP 10–32; TEMP 35.1; O2SAT 97–100
[2024-06-08] MEDS: MORPHINE SULFATE INJ 2 MG/ml SYRG IV ONE (03:00)
[2024-06-08 04:32] LABS: Basophils # (auto) 0 10 ^3/uL (0-0.2); Basophils % (auto) 0.3 % (0.0-2.0); Eosinophils # (auto) 0 10 ^3/uL (0-0.8); Eosinophils % (auto) 0.3 % (0.0-7.0); Hematocrit 28.2 % (36.0-46.0); Hemoglobin 9.4 g/dL (12.2-16.2); Lymphocytes # (auto) 0.9 10 ^3/uL (0.4-5.4); Lymphocytes % (auto) 7.3 % (10.0-50.0); Mean Corpuscular Hemoglobin 29.1 pg (28.0-32.0); Mean Corpuscular Hgb Conc. 33.4 g/dL (32.0-36.0); Mean Corpuscular Volume 87.1 fL (80.0-100.0); Monocytes # (auto) 1.2 10 ^3/uL (0-1.3); Monocytes % (auto) 9.8 % (0.0-12.0); Neutrophils # (auto) 10.2 10 ^3/uL (1.6-8.6); Neutrophils % (auto) 82.3 % (37.0-80.0); Nucleated Red Blood Cells % 0.1 %; Platelet Count (auto) 376 10^3/uL (140-450); Red Blood Cells 3.24 10^6/uL (4.0-5.20); Red Cell Distribution Width 14.2 % (11.8-14.3); White Blood Cell 12.4 10^3/uL (4.4-10.8)
[2024-06-08 04:51] LABS: Alanine Aminotransferase 22 U/L (7-40); Alkaline Phosphatase 164 U/L (46-116); Anion Gap 8 (5-15); Aspartate Aminotransferase 24 U/L (13-40); BUN/Creatinine Ratio 47.2 (10.0-20.0); Bilirubin, Total 1.3 mg/dL (0.2-1.0); Blood Urea Nitrogen 25 mg/dL (9-23); Calcium 10.1 mg/dL (8.7-10.4); Carbon Dioxide 26 mmol/L (20-31); Chloride 105 mmol/L (98-107); Glucose 140 mg/dL (74-106); Magnesium 2.2 mg/dL (1.6-2.6); Potassium 3.6 mmol/L (3.5-5.1); Sodium 139 mmol/L (136-145); Total Protein 6.3 g/dL (5.7-8.2)
--- NOTE | 2024-06-08 05:43 | DVH ---
CHEST RADIOGRAPH Indication:ICU Technique: Single frontal view of the chest was obtained Comparison: XY CHEST XRAY 1 VIEW on DOS: 06/07/24, XY CHEST XRAY 1 VIEW on DOS: 06/06/24, XY CHEST XR AY 1 VIEW on DOS: 06/05/24 FINDINGS: Lines and Tubes: Left central venous catheter tip projects of the azygous vein. Repositioning is rec ommended. Right infusion catheter tip terminates in the right atrium. Enteric tube courses below the left hemidiaphragm and extends outside the field of view. Lungs: Mild right basilar opacity. Pleura: No effusion. No pneumothorax. Cardiomediastinal contours: Unremarkable Bones: No acute osseous abnormality. IMPRESSION: 1. Left central venous catheter tip projects over the region of the azygous vein. Repositioning is re commended. 2. Medial right basilar opacities may reflect atelectasis.
--- NOTE | 2024-06-08 10:28 | DVHPN2 ---
Subjective Extubated yesterday HR 110 - 120 BP high Follows commands Reviewed: Care Plan, H&P, Labs, Medications, Previous Orders, Radiology Changes from previous H/P or p: Changes General: Per HPI Eyes: No Pain, No Vision change, No Conjunctivae inflammation, No Eyelid inflammation, No Other, No Redness ENT: No Ear pain, No Ear discharge, No Nose pain, No Nose discharge, No Nose congestion, No Mouth pain, No Mouth swelling, No Throat pain, No Throat swelling, No Other Cardiovascular: No Chest Pain, No Palpitations, No Orthopnea, No Paroxysmal Noc. Dyspnea, No Edema, No Lt Headedness, No Other Respiratory: No Cough, No Dry, No Shortness of breath, No SOB with excertion, No Wheezing, No Hemoptysis, No Pleuritic Pain, No Sputum, No Other Gastrointestinal: Nausea Genitourinary: No Dysuria, No Frequency, No Incontinence, No Hematuria, No Retention, No Other Musculoskeletal: No other, No neck pain, No shoulder pain, No arm pain, No back pain, No hand pain, No leg pain, No foot pain Skin: No Rash, No Lesions, No Jaundice, No Bruising, No Other Objective Vitals Vital Signs Date Time Temp Pulse Resp B/P (MAP) Pulse Ox O2 Delivery O2 Flow Rate FiO2 06/08/24 09:30 99.3 114 18 155/53 (87) 100 210.7 06/08/24 08:30 Nasal Cannula* 3 32 Intake/Output Intake and Output 06/08/24 07:00 Intake Total 1989.255 ml Output Total 4300 ml Balance -2309.745 ml IV Total 1989.255 ml Output Urine Total 2950 ml Stool Total 0 ml Gastric Drainage Total 900 ml Drainage Total 310 ml Other 140 ml # Bowel Movements 1 General Appearance: moderate distress, Other (Intubated and sedated) HEENT: Atraumatic, PERRLA, Other (Pupils equal, 4 mm, reactive to light to 3 mm) Lungs: Clear to auscultation, Normal air movement, Other (Mechanical ventilation) Cardiovascular: Regular rate, Normal S1, Normal S2 Abdomen: Other (Ileostomy with drainage. EVARISTO to right lower quadrant with thick serosanguineous secretions.) Musculoskeletal: Other (Unable to assess) Extremities: No edema, Other (Poor cap refill to left lower extremity with some cyanosis noted) Neuro: Other (Left arm weakness including denture technician and proximal muscles) Skin: Dry, Intact, Other (Surgical incision dry and intact) Psych/Mental Status: Mental status NL, Mood NL Medications Current Medications Medications Dose Ordered Sig/Nora Route Start Time Stop Time Status Last Admin Dose Admin Fentanyl Citrate 250 ml @ 2.5 mls/hr Q24H IV 05/16/24 14:00 06/07/24 03:26 20 MLS/HR Midazolam HCl 50 ml @ 1 mls/hr Q24H IV 05/16/24 21:00 06/07/24 03:24 9 MLS/HR Phenylephrine HCl 250 ml @ 30 mls/hr Q8H20M IV 05/16/24 21:15 05/17/24 06:03 30 MLS/HR Acetaminophen [address] 05/16/24 22:30 06/07/24 21:44 650 MG Pantoprazole Sodium 40 mg DAILY IV 05/17/24 10:00 06/07/24 08:11 40 MG Amino Acids 0 ml @ 0 mls/hr PER PHARMACY IV 05/17/24 08:30 Vancomycin HCl 0 ml @ 0 mls/hr UD IV 05/18/24 07:45 Cancel Metoprolol Tartrate 1.25 mg Q6HPRN PRN IV 05/18/24 16:00 05/18/24 16:17 1.25 MG Norepinephrine Bitartrate 32 mg/ Sodium Chloride 250 ml @ 0.938 mls/ hr Q24H IV 05/18/24 16:00 06/04/24 12:06 0.938 MLS/HR Amiodarone HCl 250 ml @ 16.667 mls/ hr Q15H IV 05/18/24 22:30 05/20/24 20:59 16.667 MLS/HR Potassium Chloride 100 ml @ 50 mls/hr Q2H IV 05/22/24 12:30 05/22/24 16:29 Cancel Diagnostic Test (Pha) 1 strip Q6HR 05/24/24 12:00 06/08/24 05:50 1 STRIP Insulin Human Regular FOLLOW SLIDING SCALE Q6HR SC 05/24/24 12:00 06/08/24 05:50 4 UNITS Dextrose 50 ml UD IV 05/24/24 12:00 Dexmedetomidine HCl 400 mcg/ Dextrose 100 ml @ 3.17 mls/hr Q24H IV 05/28/24 20:45 06/07/24 08:19 3.17 MLS/HR Hydralazine HCl 10 mg Q6HP PRN IV 05/30/24 16:15 06/05/24 11:53 10 MG Enoxaparin Sodium 70 mg Q12HR SC 06/01/24 22:00 06/07/24 22:27 70 MG Labetalol HCl 10 mg Q2HPRN PRN IV 06/02/24 07:45 06/07/24 20:54 10 MG Micafungin Sodium 100 mg/Sodium Chloride 100 ml @ 100 mls/hr DAILY IV 06/03/24 10:00 06/07/24 08:11 100 MLS/HR Hydralazine HCl 20 mg Q6HR IV 06/05/24 18:00 06/08/24 05:51 20 MG Ceftriaxone Sodium/Dextrose 50 ml @ 50 mls/hr DAILY IV 06/07/24 10:00 06/08/24 10:03 50 MLS/HR Metronidazole 100 ml @ 100 mls/hr Q8HR IV 06/06/24 22:00 06/08/24 05:51 100 MLS/HR Fat Emulsion Intravenous 100 ml/Sodium Phosphate 40 meq/ Potassium Acetate 50 meq/Magnesium Sulfate 16 meq/ Multivitamins 10 ml/Chromium/ Copper/Manganese/ Zinc 1 ml/Insulin Human Regular 20 units/Amino Acids/ Dextrose/Purified Water 1,700.2 ml @ 71 mls/hr [id number] IV 06/07/24 20:00 06/08/24 19:59 06/07/24 20:23 71 MLS/HR Laboratory Results Laboratory Tests 06/08/24 03:15 Chemistry Test 06/08/24 03:15 Albumin 3.0 g/dL (3.2-4.8) L Calcium Level 10.1 mg/dL (8.7-10.4) Magnesium Level 2.2 mg/dL (1.6-2.6) Total Protein 6.3 g/dL (5.7-8.2) LFT Test 06/08/24 03:15 Alanine Aminotransferase (ALT) 22 U/L (7-40) Alkaline Phosphatase 164 U/L (46-116) H Aspartate Amino Transferase (AST) 24 U/L (13-40) Total Bilirubin 1.3 mg/dL (0.2-1.0) H Urinalysis Test 05/11/24 16:18 Urine Color Yellow (Yellow) Urine Clarity Clear (Clear) Urine pH 6.0 (5.0-9.0) Urine Specific Media 1.020 (1.001-1.035) Urine Protein 1+ (Negative) H Urine Ketones 4+ (Negative) H Urine Blood Trace /uL (Negative) H Urine Nitrite Negative (Negative) Urine Bilirubin Negative (Negative) Urine Urobilinogen Normal mg/dL (Negative) Urine Leukocyte Esterase Negative /uL (Negative) Urine RBC 2 /hpf (0 - 4) Urine WBC 2 /hpf (0 - 5) Urine Squamous Epithelial Cells Few /hpf (<5) Urine Bacteria None seen /hpf (None Seen) Urine Mucus Few (None Seen) Urine Glucose Normal mg/dL (Normal) Blood Gas Results Test 06/07/24 15:07 Arterial Blood pH 7.494 (7.350-7.450) FiO2 % 30.0 Microbiology Microbiology Date/Time Source Procedure Growth Status 06/06/24 16:07 Blood Blood Culture - Preliminary NO GROWTH AFTER 24 HOURS OF INCUBATION. Resulted 06/06/24 14:23 Urine - [place] Urine Culture - Preliminary Resulted 06/06/24 07:57 Catheter Site Aerobic Culture - Final Staphylococcus epidermidis Micrococcus species Complete 05/16/24 14:20 Sputum Gram Stain - Final Complete 05/16/24 14:20 Respiratory Culture - Final Yeast, not Shawanda albicans Complete Assessment/Plan Assessment/Plan Robotic surgery hysterectomy and salpingo-oophorectomy complicated by Acute CVA Acute CVA w LUE hemiparesis Bowel perforation with repeat exploratory laparotomy with ileostomy creation History of breast cancer with bilateral mastectomies Afib RVR Acute hypoxic respiratory failure Mechanical intubation Exploratory laparotomy, drainage of intraabdominal abscess, thorough peritoneal lavage with reinforcement of the anastomotic location of the previous anastomosis as well as a diverting loop ileostomy on 05/24/24 Anemia Right upper extremity DVT Plan Mechanical ventilation TPN IV antibiotics: Vancomycin + Meropenem No vasopressors Sedation prn GI Prophylaxis: Protonix Transfuse blood prn 05/29/24: Transfuse 1 unit RBCs for Hb 5.9 Lasix 20 mg IV x1 Check Hb after transfusion Off pressors Antibiotics: Meropenem, Vanco, Micafungin Amiodarone IV Taper sedation down as tolerated CXR: Clear TPN Protonix 05/30/24: Discussed with Dr. Fritz Lake Will do CT ABD pelvis to follow up on abscess IV antibiotics Taper sedation down C-PAP? per Dr. Poon 05/31/24: CT abdomen showed no fluid collection IV antibiotics: Meropenem, Vancomycin & Micafungin Amiodarone Dr. Fritz Lake recommended to continue medical treatment, no surgical intervention Sedation as needed TPN 06/01/2024: Start Lovenox 70 mg subQ q.[address] Lake and Neurology IV antibiotics meropenem and vancomycin Micafungin TPN Tapered down sedation as tolerated 06/02/24: Fever Yeast in cultures: Micafungin IV antibiotics: Meropenem & Vanco TPN RUE DVT: Lovenox Normocytic anemia 7.9 Consult ID [place] Cultures Afib: Amiodarone drip Discussed with her sister over the phone 06/03/2024: IV antibiotics: Meropenem and vancomycin IV antifungal: Micafungin TPN Amiodarone IV Dr. Fritz Lake for surgery is on the case 06/04/24: Abdominal infection: IV antibiotics: Meropenem, Vanco and Micafungin TPN Amiodarone Surgery on case: Will discuss with Dr. Fritz Lake regarding tracheostomy ID consult is pending Discussed with sister over the phone, family is agreeable with the trach Anemia: Transfuse one unit RBCs 06/05/24: Hypokalemia: Replace IV antibiotics: Meropenem and Vanco IV antifungals: Micafungin TPN Amiodarone Discussed with Dr. Lake regarding tracheostomy Remove central line PICC line 06/06/24: Repeat CT abdomen & pelvis Discussed with her sister Lianet over the phone Discussed the advance directives She stated that patient as stated before that she wants to be treated but only if she becomes a vegetable then she would stop the treatment The family for now would like to continue treatment We will get a new blood and urine and sputum cultures Continue IV antibiotics and IV antifungal Dr. Lake is evaluating the patient for possible tracheostomy in the next few days 06/07/2024: Off sedation CPAP trial TPN Amiodarone IV antibiotics and antifungals Full code 06/08/24: Afib RVR, start Metoprolol IV scheduled dose Amiodarone is off HTN: Hydralazine Rocephin Flagyl Micafungin TPN NGT to suction Lovenox Hydralazine Plan discussed with: Other My Orders Orders - BARI MOORE MD Procedure Category Date Status Time Chest Xray 1 View XY 06/08/24 Resulted 04:00 Date of Service: Jun 08, 2024 Billing Provider: BARI MOORE MD Common Visit Codes: NOT BILLABLE BARI MOORE MD Jun 08, 2024 10:28
[2024-06-08] MEDS: METOPROLOL TARTRATE 1MG/1ML-5ML VIAL IV SCH (12:17)
[2024-06-08] MEDS ORDERED: hydrALAZINE HCL 20 MG/ML VL IV PRN (12:45)
--- NOTE | 2024-06-08 18:29 | DVHPN2 ---
Progress Note Date Seen: Jun 08, 2024 Has the PT tested + for MRSA If YES, has PT been informed?: No Medical Necessity Reason Pt with a Central, PICC or Fol: Yes The following are medically ne: Muhammad Catheter Reason for muhammad catheter: Strict I&O Objective vital signs Vital Sign Date Time Temp Pulse Resp B/P (MAP) Pulse Ox O2 Delivery O2 Flow Rate FiO2 06/08/24 16:15 19 100 Nasal Cannula* 2 28 06/08/24 16:00 107 06/08/24 12:17 158/62 06/08/24 11:45 99.3 210.7 Total Intake and Output 06/07/24 06/07/24 06/08/24 15:00 23:00 07:00 Intake Total 845.255 ml 577 ml 568 ml Output Total 2565 ml 1735 ml Balance 845.255 ml -1988 ml -1167 ml medications Current Medications Medications Dose Ordered Sig/Nora Route Start Time Stop Time Status Last Admin Dose Admin Fentanyl Citrate 250 ml @ 2.5 mls/hr Q24H IV 05/16/24 14:00 06/07/24 03:26 20 MLS/HR Midazolam HCl 50 ml @ 1 mls/hr Q24H IV 05/16/24 21:00 06/07/24 03:24 9 MLS/HR Phenylephrine HCl 250 ml @ 30 mls/hr Q8H20M IV 05/16/24 21:15 05/17/24 06:03 30 MLS/HR Acetaminophen 650 mg Q6HPRN PRN SD 05/16/24 22:30 06/07/24 21:44 650 MG Pantoprazole Sodium 40 mg DAILY IV 05/17/24 10:00 06/08/24 11:01 40 MG Amino Acids 0 ml @ 0 mls/hr PER PHARMACY IV 05/17/24 08:30 Vancomycin HCl 0 ml @ 0 mls/hr UD IV 05/18/24 07:45 Cancel Norepinephrine Bitartrate 32 mg/ Sodium Chloride 250 ml @ 0.938 mls/ hr Q24H IV 05/18/24 16:00 06/04/24 12:06 0.938 MLS/HR Potassium Chloride 100 ml @ 50 mls/hr Q2H IV 05/22/24 12:30 05/22/24 16:29 Cancel Diagnostic Test (Pha) 1 strip Q6HR 05/24/24 12:00 06/08/24 12:03 1 STRIP Insulin Human Regular FOLLOW SLIDING SCALE Q6HR SC 05/24/24 12:00 06/08/24 12:04 4 UNITS Dextrose 50 ml UD IV 05/24/24 12:00 Dexmedetomidine HCl 400 mcg/ Dextrose 100 ml @ 3.17 mls/hr Q24H IV 05/28/24 20:45 06/07/24 08:19 3.17 MLS/HR Enoxaparin Sodium 70 mg Q12HR SC 06/01/24 22:00 06/08/24 11:02 70 MG Labetalol HCl 10 mg Q2HPRN PRN IV 06/02/24 07:45 06/07/24 20:54 10 MG Micafungin Sodium 100 mg/Sodium Chloride 100 ml @ 100 mls/hr DAILY IV 06/03/24 10:00 06/08/24 11:03 100 MLS/HR Ceftriaxone Sodium/Dextrose 50 ml @ 50 mls/hr DAILY IV 06/07/24 10:00 06/08/24 10:03 50 MLS/HR Metronidazole 100 ml @ 100 mls/hr Q8HR IV 06/06/24 22:00 06/08/24 05:51 100 MLS/HR Fat Emulsion Intravenous 100 ml/Sodium Phosphate 40 meq/ Potassium Acetate 50 meq/Magnesium Sulfate 16 meq/ Multivitamins 10 ml/Chromium/ Copper/Manganese/ Zinc 1 ml/Insulin Human Regular 20 units/Amino Acids/ Dextrose/Purified Water 1,700.2 ml @ 71 mls/hr [id number] IV 06/07/24 20:00 06/08/24 19:59 06/07/24 20:23 71 MLS/HR Metoprolol Tartrate 4 mg Q6HR IV 06/08/24 12:00 06/08/24 12:17 4 MG Fat Emulsion Intravenous 100 ml/Sodium Chloride 40 meq/ Potassium Acetate 60 meq/Magnesium Sulfate 16 meq/ Multivitamins 10 ml/Chromium/ Copper/Manganese/ Zinc 1 ml/Insulin Human Regular 22 units/Amino Acids/ Dextrose/Purified Water 1,755.22 ml @ 73 mls/hr Q24H3M IV 06/08/24 20:00 06/09/24 19:59 Hydralazine HCl 10 mg Q4HPRN PRN IV 06/08/24 12:45 laboratory and microbiology Laboratory Tests 06/08/24 03:15 Test 06/08/24 03:15 Range/Units Serum Glucose 140 H 74-106 mg/dL Microbiology Date/Time Source Procedure Growth Status 06/07/24 03:00 Abdomen Gram Stain - Final Resulted 06/07/24 03:00 Abdomen Wound Culture - Preliminary Resulted 06/06/24 16:07 Blood Blood Culture - Preliminary NO GROWTH AFTER 48 HOURS OF INCUBATION. Resulted 06/06/24 14:23 Urine - [place] Urine Culture - Final Complete 05/16/24 14:20 Sputum Gram Stain - Final Complete 05/16/24 14:20 Respiratory Culture - Final Yeast, not Shawanda albicans Complete Problem List/Assessment/Plan Problem List/Assessment/Plan EXTUBATED AFEBRILE TAMX 99.00 VSS NO VASOPRESSOR WBC ELEVATED ABD SOFT DRAINS IN PLACE R 70 CC PURULENT L 40 CC SEROUS DRESSING ABD WOUND DRAINAGE NOTED WITH BAG IN PLACE CONDITION GUARDED ILEOSTOMY VIABLE AND FUNCTIONAL NURSE AT BEDSIDE CONTINUE SUPPORTIVE CARE PULM EVAL ONGOING CONTINUE ID EVAL AND IV ABX Plan discussed with: Patient Dietary Evaluation Review Comments: 1) Advance pt diet when medically feasible to a 2gmNa diet modified per LABOR REPRESENTATIVE recommendations 2) Continue current plan of care Expected Outcomes/Goals: 1) Pt diet to advance 2) F/U in 2-3 days SHEY COVARRUBIAS MD Jun 08, 2024 18:29
--- NOTE | 2024-06-08 18:55 | DVHPN2 ---
Consult Progress Note Date Seen: Jun 08, 2024 Subjective Patient reports: Other (having some abdominal pain and drainage from surgical incision ) Objective vital signs Vital Sign Date Time Temp Pulse Resp B/P (MAP) Pulse Ox O2 Delivery O2 Flow Rate FiO2 06/08/24 18:44 104 142/17 06/08/24 16:15 19 100 Nasal Cannula* 2 28 06/08/24 11:45 99.3 210.7 Total Intake and Output 06/07/24 06/07/24 06/08/24 15:00 23:00 07:00 Intake Total 845.255 ml 577 ml 568 ml Output Total 2565 ml 1735 ml Balance 845.255 ml -1988 ml -1167 ml medications Current Medications Medications Dose Ordered Sig/Nora Route Start Time Stop Time Status Last Admin Dose Admin Fentanyl Citrate 250 ml @ 2.5 mls/hr Q24H IV 05/16/24 14:00 06/07/24 03:26 20 MLS/HR Midazolam HCl 50 ml @ 1 mls/hr Q24H IV 05/16/24 21:00 06/07/24 03:24 9 MLS/HR Phenylephrine HCl 250 ml @ 30 mls/hr Q8H20M IV 05/16/24 21:15 05/17/24 06:03 30 MLS/HR Acetaminophen 650 mg Q6HPRN PRN [place] 05/16/24 22:30 06/07/24 21:44 650 MG Pantoprazole Sodium 40 mg DAILY IV 05/17/24 10:00 06/08/24 11:01 40 MG Amino Acids 0 ml @ 0 mls/hr PER PHARMACY IV 05/17/24 08:30 Vancomycin HCl 0 ml @ 0 mls/hr UD IV 05/18/24 07:45 Cancel Norepinephrine Bitartrate 32 mg/ Sodium Chloride 250 ml @ 0.938 mls/ hr Q24H IV 05/18/24 16:00 06/04/24 12:06 0.938 MLS/HR Potassium Chloride 100 ml @ 50 mls/hr Q2H IV 05/22/24 12:30 05/22/24 16:29 Cancel Diagnostic Test (Pha) 1 strip Q6HR 05/24/24 12:00 06/08/24 18:37 1 STRIP Insulin Human Regular FOLLOW SLIDING SCALE Q6HR SC 05/24/24 12:00 06/08/24 18:42 4 UNITS Dextrose 50 ml UD IV 05/24/24 12:00 Dexmedetomidine HCl 400 mcg/ Dextrose 100 ml @ 3.17 mls/hr Q24H IV 05/28/24 20:45 06/07/24 08:19 3.17 MLS/HR Enoxaparin Sodium 70 mg Q12HR SC 06/01/24 22:00 06/08/24 11:02 70 MG Labetalol HCl 10 mg Q2HPRN PRN IV 06/02/24 07:45 06/07/24 20:54 10 MG Micafungin Sodium 100 mg/Sodium Chloride 100 ml @ 100 mls/hr DAILY IV 06/03/24 10:00 06/08/24 11:03 100 MLS/HR Ceftriaxone Sodium/Dextrose 50 ml @ 50 mls/hr DAILY IV 06/07/24 10:00 06/08/24 10:03 50 MLS/HR Metronidazole 100 ml @ 100 mls/hr Q8HR IV 06/06/24 22:00 06/08/24 18:44 100 MLS/HR Fat Emulsion Intravenous 100 ml/Sodium Phosphate 40 meq/ Potassium Acetate 50 meq/Magnesium Sulfate 16 meq/ Multivitamins 10 ml/Chromium/ Copper/Manganese/ Zinc 1 ml/Insulin Human Regular 20 units/Amino Acids/ Dextrose/Purified Water 1,700.2 ml @ 71 mls/hr [id number] IV 06/07/24 20:00 06/08/24 19:59 06/07/24 20:23 71 MLS/HR Metoprolol Tartrate 4 mg Q6HR IV 06/08/24 12:00 06/08/24 18:44 4 MG Fat Emulsion Intravenous 100 ml/Sodium Chloride 40 meq/ Potassium Acetate 60 meq/Magnesium Sulfate 16 meq/ Multivitamins 10 ml/Chromium/ Copper/Manganese/ Zinc 1 ml/Insulin Human Regular 22 units/Amino Acids/ Dextrose/Purified Water 1,755.22 ml @ 73 mls/hr Q24H3M IV 06/08/24 20:00 06/09/24 19:59 Hydralazine HCl 10 mg Q4HPRN PRN IV 06/08/24 12:45 Physical Exam: - General: NAD - Neck: Supple. No masses. - HEENT: PERRL. Normal lids and conjunctiva. Moist mucous membranes. Oropharynx without lesions, exudates or excessive erythema. Normal appearance of the external aspects of the nose and ears. - Heart: Regular rhythm, normal rate. No murmur. No lower extremity edema. - Lungs: Normal respiratory effort. Clear to auscultation bilaterally. No wheezes. No crackles. - Abdomen: Soft. Non-tender. minimally distended. No masses or abdominal hernia. abdominal pain. increased drainage from surgical incision site at the inferior part - MSK: No digital cyanosis. Normal strength and tone in all 4 limbs. - Skin: Warm and dry, no rashes. - Neuro: Alert. No facial droop or slurred speech. EO movements intact. Sensation intact to soft touch in all 4 limbs. L sided weakness in UE and LE - Psych: Appropriate mood.intubated and sedated laboratory and microbiology Laboratory Tests 06/08/24 03:15 Test 06/08/24 03:15 Range/Units Serum Glucose 140 H 74-106 mg/dL Problem List/Assessment/Plan Problems(with codes): (1) Fungal infection (2) Intra-abdominal abscess (3) SBO (small bowel obstruction) (4) Stroke (5) Anemia (6) Breast cancer (7) Hypertension Problem List/Assessment/Plan Assessment and Plan: ID Problem List: 1. Small bowel obstruction with perforation 2. Septic shock 3. Stroke, right MCA territory 4. Hypertension 5. Anemia 6. Breast cancer 7. Bilateral mastectomy 8. Post-surgical complications (including ileostomy creation) 9. Fungal infection (yeast not Shawanda albicans) 10. Strep Viridans Group B infection Assessment: This is a 68-year-old female, with a significant past medical history of anemia, hypertension, breast cancer status post bilateral mastectomy, and a 50 pack-year smoking history (now quit), who was initially admitted for a robotic hysterectomy with bilateral salpingectomy, removal of a right ovarian mass, cystocele repair with urethral sling. Postoperatively, she developed hypertension and nausea, necessitating overnight admission. Post-admission, she endured a cerebrovascular accident primarily impacting the right MCA territory and contributing to left-sided weakness. Subsequent evaluations included MRI and CT head scans that confirmed multiple acute and subacute infarcts. Later complications included progression to an acute small bowel obstruction with perforation, leading to emergent exploratory laparotomy and subsequent ileostomy creation. Cultures from the surgical sites revealed a non-Shawanda albicans yeast and Strep Viridans Group B infection. The patient continues to require ICU support, primarily due to ongoing septic shock and the need for ventilatory assistance. Patient remains intubated with vasopressors being weaned off. Recent WBC count was 16.9 and hemoglobin levels have fluctuated, dropping as low as 5.9. She has been transitioned to a multi-antibiotic regimen including meropenem, vancomycin, and TPN for nutritional support. 06/04: hemaglobin of 6.9, suspect ongoing blood loss. Preliminary blood cultures are no growth for 48 hours as well as wound and urine cultures with no growth 06/05: hemaglobin of 8.4 after blood transfusion. Repeat cultures of the abdomen is showing no organisms 06/06: Ct pelvis abdomen shows faily stable appearing radio dense contrast in the central mid abdomen with adjacent surgical sutures. Small bowel anacitis. drainage catheter terminating in the pelvis and upper abdomen, stable appearing intraabdominal acities. extensive post-surgical changes that ate unchanged. a small to moderate right mid size plural effusion. Chest x-ray was done and shows no focal consolidation in the lungs 06/07: Chest x-ray done before the excavation, showing pulmonary disease 06/08: Abdominal drain fluids and patients surgical site has been cultured. Removal of catheter tip from yesterday shows staphylococcus and micrococcus , likely skin florac contamination . White count of 12.4 today and will continue to monitor Plan: 1. continue cephtriaxone and flagell, when patient can tolerate oral can switch to oral of these medications 2. Continue micafungin for fungal infection, may consider switching if yeast infection persists but will hold off for now 3. check blood cultures and check surgical site wound culture 4. Provide ICU support with ventilator for respiratory status and hemodynamic monitoring. 5. Supportive care measures for septic shock, including fluid resuscitation and vasopressor management. 6. Monitor and maintain drainage output. 7. Ensure adequate nutritional support through TPN. 8. Follow-up with surgical team for wound care and any necessary surgical interventions. 9. if hypotension persists, recommend repeating Ct of abdomen in a few days to rule out hematoma 10. monitor patients resopse to all regimens clinically when patient passes bedside swallow 11. monitor white count 12. follow up on cultures of incision site and drainage specimen Authorized and Performed by: mey ayala MD Total critical care time: Approximately 76 minutes Due to a high probability of clinically significant, life threatening deterioration, the patient required my highest level of preparedness to intervene emergently and I personally spent this critical care time directly and personally managing the patient. This critical care time included obtaining a history; examining the patient; pulse oximetry; ordering and review of studies; arranging urgent treatment with development of a management plan; evaluation of patient's response to treatment; frequent reassessment; and, discussions with other providers. This critical care time was performed to assess and manage the high probability of imminent, life-threatening deterioration that could result in multi-organ failure. It was exclusive of separately billable procedures and treating other patients and teaching time. Plan discussed with: Other Dietary Evaluation Review Comments: 1) Advance pt diet when medically feasible to a 2gmNa diet modified per [employer] recommendations 2) Continue current plan of care Expected Outcomes/Goals: 1) Pt diet to advance 2) F/U in 2-3 days MEY AYALA MD Jun 08, 2024 18:55
--- NOTE | 2024-06-08 19:06 | DVHPN2 ---
Progress Note - Dictate Date Seen: Jun 08, 2024 Has the PT tested + for MRSA If YES, has PT been informed?: No Medical Necessity Reason Pt with a Central, PICC or Fol: Yes The following are medically ne: Muhammad Catheter Reason for muhammad catheter: Strict I&O Subjective Patient seen and examined at bedside. Remains on supplemental oxygen. Overnight events reviewed. vital signs Vital Sign Date Time Temp Pulse Resp B/P (MAP) Pulse Ox O2 Delivery O2 Flow Rate FiO2 06/08/24 18:44 104 142/17 06/08/24 16:15 19 100 Nasal Cannula* 2 28 06/08/24 11:45 99.3 210.7 Total Intake and Output 06/07/24 06/07/24 06/08/24 15:00 23:00 07:00 Intake Total 845.255 ml 577 ml 568 ml Output Total 2565 ml 1735 ml Balance 845.255 ml -1988 ml -1167 ml medications Current Medications Medications Dose Ordered Sig/Nora Route Start Time Stop Time Status Last Admin Dose Admin Fentanyl Citrate 250 ml @ 2.5 mls/hr Q24H IV 05/16/24 14:00 06/07/24 03:26 20 MLS/HR Midazolam HCl 50 ml @ 1 mls/hr Q24H IV 05/16/24 21:00 06/07/24 03:24 9 MLS/HR Phenylephrine HCl 250 ml @ 30 mls/hr Q8H20M IV 05/16/24 21:15 05/17/24 06:03 30 MLS/HR Acetaminophen 650 mg Q6HPRN PRN [place] 05/16/24 22:30 06/07/24 21:44 650 MG Pantoprazole Sodium 40 mg DAILY IV 05/17/24 10:00 06/08/24 11:01 40 MG Amino Acids 0 ml @ 0 mls/hr PER PHARMACY IV 05/17/24 08:30 Vancomycin HCl 0 ml @ 0 mls/hr UD IV 05/18/24 07:45 Cancel Norepinephrine Bitartrate 32 mg/ Sodium Chloride 250 ml @ 0.938 mls/ hr Q24H IV 05/18/24 16:00 06/04/24 12:06 0.938 MLS/HR Potassium Chloride 100 ml @ 50 mls/hr Q2H IV 05/22/24 12:30 05/22/24 16:29 Cancel Diagnostic Test (Pha) 1 strip Q6HR 05/24/24 12:00 06/08/24 18:37 1 STRIP Insulin Human Regular FOLLOW SLIDING SCALE Q6HR SC 05/24/24 12:00 06/08/24 18:42 4 UNITS Dextrose 50 ml UD IV 05/24/24 12:00 Dexmedetomidine HCl 400 mcg/ Dextrose 100 ml @ 3.17 mls/hr Q24H IV 05/28/24 20:45 06/07/24 08:19 3.17 MLS/HR Enoxaparin Sodium 70 mg Q12HR SC 06/01/24 22:00 06/08/24 11:02 70 MG Labetalol HCl 10 mg Q2HPRN PRN IV 06/02/24 07:45 06/07/24 20:54 10 MG Micafungin Sodium 100 mg/Sodium Chloride 100 ml @ 100 mls/hr DAILY IV 06/03/24 10:00 06/08/24 11:03 100 MLS/HR Ceftriaxone Sodium/Dextrose 50 ml @ 50 mls/hr DAILY IV 06/07/24 10:00 06/08/24 10:03 50 MLS/HR Metronidazole 100 ml @ 100 mls/hr Q8HR IV 06/06/24 22:00 06/08/24 18:44 100 MLS/HR Fat Emulsion Intravenous 100 ml/Sodium Phosphate 40 meq/ Potassium Acetate 50 meq/Magnesium Sulfate 16 meq/ Multivitamins 10 ml/Chromium/ Copper/Manganese/ Zinc 1 ml/Insulin Human Regular 20 units/Amino Acids/ Dextrose/Purified Water 1,700.2 ml @ 71 mls/hr [id number] IV 06/07/24 20:00 06/08/24 19:59 06/07/24 20:23 71 MLS/HR Metoprolol Tartrate 4 mg Q6HR IV 06/08/24 12:00 06/08/24 18:44 4 MG Fat Emulsion Intravenous 100 ml/Sodium Chloride 40 meq/ Potassium Acetate 60 meq/Magnesium Sulfate 16 meq/ Multivitamins 10 ml/Chromium/ Copper/Manganese/ Zinc 1 ml/Insulin Human Regular 22 units/Amino Acids/ Dextrose/Purified Water 1,755.22 ml @ 73 mls/hr Q24H3M IV 06/08/24 20:00 06/09/24 19:59 Hydralazine HCl 10 mg Q4HPRN PRN IV 06/08/24 12:45 objective Gen.: Patient lying in bed in no apparent distress. On supplemental oxygen. Head: Normocephalic, atraumatic. Eyes: EOMI/PERRLA. Ears: Normal hearing. Normal anatomy. Neck/trachea: Trachea midline, supple. Nose: Normal external anatomy. Mouth: Moist mucous membranes. Chest: Decreased air entry bilaterally. No wheezing or rhonchi. Cardiovascular: Positive S1, positive S2. Regular rate and rhythm. Abdomen: Positive bowel sounds in all 4 quadrants. Soft, non-tender, non- distended. : Deferred. Rectal: Deferred. Skin: Warm, dry. Intact. Extremities: 2+ radial pulses bilaterally. No lower extremity edema. Neuro: Awake, alert, oriented x3. No gross motor or sensory deficits. Cranial nerves II through XII intact. Gait not assessed. laboratory and microbiology Laboratory Tests 06/08/24 03:15 Test 06/08/24 03:15 Range/Units Serum Glucose 140 H 74-106 mg/dL Assessment/Plan Impression: Acute hypoxic respiratory failure Abdominal pain due to recent robotic surgery hysterectomy and salpingo- oophorectomy History of breast cancer with bilateral mastectomies History of bowel surgery and ileostomy Anemia due to hemorrhage on hemodilution Shock Chronic pain syndrome Anemia Atrial fibrillation with RVR Bowel perforation with repeat exploratory laparotomy with ileostomy creation Events: S/p extubation, remains on supplemental oxygen. On 2 liters/minute via nasal cannula Taper O2 as tolerated Incentive spirometry Head of bed elevation Aspiration precautions. TPN for nutritional support NGT Off pressors, hemodynamically stable. Amiodarone infusion on hold. Upper extremity Doppler showed nonocclusive thrombus in the right axillary vein and brachial vein Currently on enoxaparin 70 mg subcutaneous Blood cultures revealed growth of yeast but not Shawanda albicans Currently on micafungin intravenous, Continue abx with ceftriaxone, metronidazole. ID recommendations appreciated On TPN at 60 mL/hour IV Pantoprazole 40 for the prevention of stress ulcer DVT prophylaxis- on enoxaparin 70 SC Rest of plan as outlined below. Plan: S/p extubation on 06/07 Supplemental oxygen. On 2 liters/minute via nasal cannula CXR, ABG reviewed. Pressors as necessary for hemodynamic support Titrate to keep mean arterial pressure greater than 65 mmHg. Continue antibiotics. F/u cultures. Monitor hemoglobin Transfuse if less than 7.0 grams/deciliter Monitor renal function due to Acute kidney injury. Monitor electrolytes. Supplement as necessary. Surgery recommendations appreciated. Nutritional support. On TPN Accucheks, ISS. GI/DVT prophylaxis. Condition: Critical Prognosis: Poor given multiple comorbidities. Rest of plan per hospitalist and other consultants. A total of 35 minutes of critical care time was spent reviewing the patient record, examining the patient, making a diagnostic and therapeutic plan, discussing this plan with the medical personnel, following up on diagnostic studies and following the patient for clinical stability excluding any and all procedures. At least 50% of this time was spent in direct, [id number] contact. Thank you Dr Reid for allowing me to participate in this patient's care. Further recommendations will depend on patient's clinical course. Please do not hesitate to contact me if you have any questions or concerns. This medical document was created using an electronic medical record system with [employer] dictation system. Although this document has been carefully reviewed, there may still be some phonetic and typographical errors. These areas are purely typographical due to imperfections of the software programs, and do not reflect any compromise in the patient's medical care. Dietary Evaluation Review Comments: 1) Advance pt diet when medically feasible to a 2gmNa diet modified per [employer] recommendations 2) Continue current plan of care Expected Outcomes/Goals: 1) Pt diet to advance 2) F/U in 2-3 days Plan discussed with: Other (YASH Ruiz) Critical Care Time(min): 35 RG LEONE MD Jun 08, 2024 19:06
[2024-06-08] MEDS: TPN PER PHARMACY IV NR (20:00)
--- NOTE | 2024-06-08 22:05 | DVHPN2 ---
Progress Note - Dictate Date Seen: Jun 08, 2024 Has the PT tested + for MRSA If YES, has PT been informed?: No Medical Necessity Reason Pt with a Central, PICC or Fol: Yes The following are medically ne: Muhammad Catheter Reason for muhammad catheter: Strict I&O Subjective Ms. Barrera is a 68 years old right-handed female with a history of hypertension, anemia, breast cancer, she was admitted to the [facility] on 05/07/2024 for scheduled hysterectomy and oophorectomy. Post surgically, she woke up with left-sided weakness, and MRI showed multiple stroke in the right MCA territory. During the hospital stay, she developed fall perforation, and she went through abdominal surgery on 05/16/2024 Because of ongoing intraperitoneal sepsis/peritonitis, the patient went through exploratory laparotomy on 05/24/2024 I have seen and examined the patient in the ICU, I have discussed with her nurse. She is extubated, awake, she was personally socially, she moves the right arm and leg only, the pupils are slightly asymmetric, right-sided bigger with good light reflexes Looks very tired CBC, 05/16/2024: Metabolic acidosis, 05/17/2024: Metabolic acidosis, 05/18/2024: Metabolic acidosis URINALYSIS, 05/11/2024: WBC: 2, URINE LEUKOCYTE ESTERASE: NEGATIVE WBC/HB/PLT/MCV, 05/04: 5.1/10.7/119/98.3, 05/17/2024: 20.4/8.5/205/86.9 05/19/2024: 12.2/11.1/125/86.2, 05/20/2024: 8.1/10.5/113/86.1, 05/21/2024: 6.6/10.5/106/86.5, 05/26/2024: 9.6/9.2/184/93.8, 05/28/2024: 7.5/7/223/89.6, 05/29/24: 6.8/5.9/251/88.1, 05/30/2024: 7.4/7.7/268/86.6 PT/INR/FTT, 05/16/2024: 17.4/1.71/34.2 K, 05/09/2024: 3.9, 05/10/24:3.1, 05/12/2024: 3.4, 05/16/2024: 2.8 Lactic acid, 05/15/2024: 1.6, 05/16/2024: 1.5 HCO3, 05/23/2024: 35 Bun.Cr, 05/23/2024: 37/0.75 LIVER FUNCTION TESTS, 05/12/2024: UNREMARKABLE, 05/16/2024: Unremarkable TBI/AST/ALT/AP, 05/18/2024: 1.2//, 05/19/2024: 3.1/04/23/2067, 05/23/2024: 3.1/48/35/170, 05/29/2024: 2.3///117 TG/HDL/LDL/HDL, 05/12/2024: 196/134/75/23 TSH, 05/12/2024: 2.01 Echocardiogram 05/14/2024: lvef 65% by visual estimate mild mitral regurg RV enlarged mild left atrium enlarged mild Extremity venous study, 06/01/2024: No left upper extremity DVT. Right internal jugular vein and subclavian vein are not visualized secondary to patient positioning. Nonocclusive thrombus is seen in the right axillary vein and brachial vein. Occlusive thrombus is present at the right cephalic vein. Carotid Doppler, 05/11/2024: 1. Occlusion of the right proximal ICA. 2. Greater than 50% stenosis of the right proximal ECA. 3. Greater than 50% stenosis of the left proximal ICA CT head, 05/11/2024: 1. Chronic lacunar infarct in right centrum semiovale. 2. Chronic periventricular ischemic changes. 3. Cerebral and cerebellar atrophy, likely age-related. 4. Advised further evaluation with MRI brain without contrast if clinically indicated CT abdomen/pelvis, 05/15/2024: Small bowel obstruction with evidence of perforation including free intraperitoneal fluid and air. Extensive subcutaneous emphysema likely secondary to bowel perforation CT abdomen/pelvis, 05/16/2024: 1. Sequelae of recent postsurgical changes as described above. Correlate with surgical history. 2. Pneumoperitoneum and free fluid in the abdomen and pelvis. 3. Large collection containing fluid and gas, predominantly in the right hemiabdomen. There is GI contrast extending into this collection from an adjacent small bowel loop. There is a component of this collection extending adjacent to the anterior superior aspect of the liver. 4. Moderate right hydronephrosis and hydroureter. The distal right ureter appears to be compressed by the large fluid collection in the right hemiabdomen. No obstructing calculus. 5. Dilated small bowel loops in the left hemiabdomen with suspected small-bowel obstruction. 6. Prominent subcutaneous edema in the ventral abdominal wall and extending caudally into the inguinal regions bilaterally, peroneal region, and anterior aspect of the left thigh. 7. Small bilateral pleural effusions with overlying atelectasis. 8. Additional findings as detailed above. CT abdomen, 05/23/2024: Postsurgical changes of the ventral abdomen with interval improvement in the diffuse soft tissue edema and ventral abdominal, pelvis and upper thigh subcutaneous emphysema. Interval significant decrease in size of the loculated collection within the right hemiabdomen and pelvis with small residual. Interval placement of drainage catheters terminating over the left upper abdominal quadrant and left hemipelvis as detailed above. Interval development of small to moderate ascites. Wall thickening of fluid-filled nondistended small bowel loops of the anterior mid to lower abdomen which may be from the surrounding ascites versus enteritis. Additional findings as above CT abdomen staff pelvis, 05/30/2024: 1. Radiodense contrast in the mid abdomen associated with surgical sutures. It is unclear whether this is in bowel or represents a bowel leak. Clinical correlation and continued follow-up is recommended. 2. Right pelvic, anterior abdominal wall and left abdomen drainage catheters in place. No definite abscess identified. 3. Extensive post postsurgical changes of the bowel. 4. Small amount of abdominal and pelvic ascities. 5. Small to moderate right pleural effusion. CTA neck, head, 05/14/24: 1. Complete occlusion of the right cervical internal carotid artery. There may be trickle flow in distal right cervical ICA. 2. Poor flow in the right intracranial ICA likely retrograde perfusion through the contralateral left side posterior circulation through the communicating arteries. 3. High-grade stenosis at the left carotid bulb with at least 70-80% stenosis. Moderate short-segment stenosis in the left proximal ICA with at least 60% stenosis. MRI HEAD, 05/11/2024: 1. Multiple foci of restricted diffusion in the right centrum semiovale and along the right superior frontal lobe compatible with acute to subacute infarcts. There is no evidence of acute hemorrhage or significant surrounding edema. 2. Absence of flow void in the intracranial portions of the right internal carotid artery which is likely occluded. vital signs Vital Sign Date Time Temp Pulse Resp B/P (MAP) Pulse Ox O2 Delivery O2 Flow Rate FiO2 06/08/24 21:00 129/44 06/08/24 20:44 99.9 06/08/24 20:00 91 15 100 06/08/24 18:15 Nasal Cannula* 2 28 Total Intake and Output 06/07/24 06/07/24 06/08/24 15:00 23:00 07:00 Intake Total 845.255 ml 577 ml 568 ml Output Total 2565 ml 1735 ml Balance 845.255 ml -1988 ml -1167 ml medications Current Medications Medications Dose Ordered Sig/Nora Route Start Time Stop Time Status Last Admin Dose Admin Fentanyl Citrate 250 ml @ 2.5 mls/hr Q24H IV 05/16/24 14:00 06/07/24 03:26 20 MLS/HR Midazolam HCl 50 ml @ 1 mls/hr Q24H IV 05/16/24 21:00 06/07/24 03:24 9 MLS/HR Phenylephrine HCl 250 ml @ 30 mls/hr Q8H20M IV 05/16/24 21:15 05/17/24 06:03 30 MLS/HR Acetaminophen 650 mg Q6HPRN PRN ND 05/16/24 22:30 06/08/24 19:25 650 MG Pantoprazole Sodium 40 mg DAILY IV 05/17/24 10:00 06/08/24 11:01 40 MG Amino Acids 0 ml @ 0 mls/hr PER PHARMACY IV 05/17/24 08:30 Vancomycin HCl 0 ml @ 0 mls/hr UD IV 05/18/24 07:45 Cancel Norepinephrine Bitartrate 32 mg/ Sodium Chloride 250 ml @ 0.938 mls/ hr Q24H IV 05/18/24 16:00 06/04/24 12:06 0.938 MLS/HR Potassium Chloride 100 ml @ 50 mls/hr Q2H IV 05/22/24 12:30 05/22/24 16:29 Cancel Diagnostic Test (Pha) 1 strip Q6HR 05/24/24 12:00 06/08/24 18:37 1 STRIP Insulin Human Regular FOLLOW SLIDING SCALE Q6HR SC 05/24/24 12:00 06/08/24 18:42 4 UNITS Dextrose 50 ml UD IV 05/24/24 12:00 Dexmedetomidine HCl 400 mcg/ Dextrose 100 ml @ 3.17 mls/hr Q24H IV 05/28/24 20:45 06/07/24 08:19 3.17 MLS/HR Enoxaparin Sodium 70 mg Q12HR SC 06/01/24 22:00 06/08/24 21:27 70 MG Labetalol HCl 10 mg Q2HPRN PRN IV 06/02/24 07:45 06/07/24 20:54 10 MG Micafungin Sodium 100 mg/Sodium Chloride 100 ml @ 100 mls/hr DAILY IV 06/03/24 10:00 06/08/24 11:03 100 MLS/HR Ceftriaxone Sodium/Dextrose 50 ml @ 50 mls/hr DAILY IV 06/07/24 10:00 06/08/24 10:03 50 MLS/HR Metronidazole 100 ml @ 100 mls/hr Q8HR IV 06/06/24 22:00 06/08/24 21:27 100 MLS/HR Metoprolol Tartrate 4 mg Q6HR IV 06/08/24 12:00 06/08/24 18:44 4 MG Fat Emulsion Intravenous 100 ml/Sodium Chloride 40 meq/ Potassium Acetate 60 meq/Magnesium Sulfate 16 meq/ Multivitamins 10 ml/Chromium/ Copper/Manganese/ Zinc 1 ml/Insulin Human Regular 22 units/Amino Acids/ Dextrose/Purified Water 1,755.22 ml @ 73 mls/hr Q24H3M IV 06/08/24 20:00 06/09/24 19:59 06/08/24 20:00 73 MLS/HR Hydralazine HCl 10 mg Q4HPRN PRN IV 06/08/24 12:45 objective General: the patient is well developed and nourished. No acute distress. ABDOMEN: Status post surgery MENTAL STATUS: Subjective. CRANIAL NERVES: Pupils are round and reactive. normal external eye movement, normal sensation and motor examination in the lateral trigeminal nerve distribution, no facial weakness. SENSATION: Okay to pinprick and light touch MOTOR: Normal tone in the upper and lower extremity. Normal muscle bulk. No fasciculations. She can move the right arm than leg REFLEXES: Deep tendon reflexes are symmetrical. No pathological reflexes. CEREBELLAR/COORDINATION: Deferred GAIT/STATION: deferred. laboratory and microbiology Laboratory Tests 06/08/24 03:15 Test 06/08/24 03:15 Range/Units Serum Glucose 140 H 74-106 mg/dL Problem List Pelvic prolapse, can count urethrovesical junction, surgery repair on 05/07/2024 (Robotic supracervical hysterectomy bilateral salpingo-oophorectomy colposcopic pexy cystocele repair urethral sling partial vaginectomy) Bowel obstruction with perforation, intra-abdominal abscess, dense at [place], status post surgery 05/16/2024 Sepsis/septic shock Metabolic encephalopathy Acute right MCA territory multiple strokes Left hemiparesis Right ICA occlusion Left ICA severe stenosis Anemia, with unstable H&H Status post oophorectomy, hysterectomy Anisocoria, uncertain clinical significance (small and equal pupils since 06/06/2024) DVT Assessment/Plan Monitoring Supportive treatment ICU care Stabilize vitals/pressor drip Respiratory support/vent management IV antibiotics Oxygen Lovenox 70 mg subQ b.i.d. TPN GI prophylaxis Further address bilateral carotid stenosis CLARA on discharge Surgery on case Okay to use Lovenox for DVT from neurologic point of view More recommendation per clinical course This medical document was created using an electronic medical record system with [employer] dictation system. Although this document has been carefully reviewed, there may still be some phonetic and typographical errors. These areas are purely typographical due to imperfections of the software programs, and do not reflect any compromise in the patient's medical care Prognosis poor Dietary Evaluation Review Comments: 1) Advance pt diet when medically feasible to a 2gmNa diet modified per DO[employer]SHAKER recommendations 2) Continue current plan of care Expected Outcomes/Goals: 1) Pt diet to advance 2) F/U in 2-3 days Plan discussed with: Other BRYAN FLORES MD Jun 08, 2024 22:05
[2024-06-09] VITALS (67 sets, daily range): BP systolic 118–183; BP diastolic 27–90; PULSE 66–99; RESP 12–35; TEMP 99–100.6; O2SAT 96–100
[2024-06-09 04:40] LABS: Alanine Aminotransferase 21 U/L (7-40); Alkaline Phosphatase 163 U/L (46-116); Anion Gap 8 (5-15); Aspartate Aminotransferase 26 U/L (13-40); BUN/Creatinine Ratio 45.6 (10.0-20.0); Bilirubin, Total 1.1 mg/dL (0.2-1.0); Blood Urea Nitrogen 26 mg/dL (9-23); Carbon Dioxide 27 mmol/L (20-31); Chloride 105 mmol/L (98-107); Glucose 125 mg/dL (74-106); Magnesium 2.2 mg/dL (1.6-2.6); Phosphorus 2.4 mg/dL (2.4-5.1); Sodium 140 mmol/L (136-145); Total Protein 6.4 g/dL (5.7-8.2)
[2024-06-09 04:51] LABS: Triglycerides 133 mg/dL (< 150)
[2024-06-09] MEDS: POTASSIUM CHL 20MEQ/100ML 100 ML IV SCH (08:22)
--- NOTE | 2024-06-09 09:31 | DVHPN2 ---
Progress Note - Surgical Date Seen: Jun 09, 2024 Post op day Post op day: 17 Subjective Patient reports: Feels better (as she tries toverbalize but nods her head appropriately) Review of Systems: HEENT:Normal, CVS:Abnormal, RESPIRATORY:Normal, GI:Normal, :Normal, NEURO:Abnormal (MCA Right hemisphere left sided weakness) Objective Vital signs Vital Sign Date Time Temp Pulse Resp B/P (MAP) Pulse Ox O2 Delivery O2 Flow Rate FiO2 06/09/24 07:08 80 148/46 06/09/24 06:15 24 98 Nasal Cannula* 2 28 06/09/24 03:00 99.5 211.1 Total Intake and Output 06/08/24 06/08/24 06/09/24 15:00 23:00 07:00 Intake Total 718 ml 805 ml 684 ml Output Total 1510 ml 805 ml Balance 718 ml -705 ml -121 ml Medications Current Medications Medications Dose Ordered Sig/Onra Route Start Time Stop Time Status Last Admin Dose Admin Fentanyl Citrate 250 ml @ 2.5 mls/hr Q24H IV 05/16/24 14:00 06/07/24 03:26 20 MLS/HR Midazolam HCl 50 ml @ 1 mls/hr Q24H IV 05/16/24 21:00 06/07/24 03:24 9 MLS/HR Phenylephrine HCl 250 ml @ 30 mls/hr Q8H20M IV 05/16/24 21:15 05/17/24 06:03 30 MLS/HR Acetaminophen 650 mg Q6HPRN PRN MO 05/16/24 22:30 06/08/24 19:25 650 MG Pantoprazole Sodium 40 mg DAILY IV 05/17/24 10:00 06/08/24 11:01 40 MG Amino Acids 0 ml @ 0 mls/hr PER PHARMACY IV 05/17/24 08:30 Vancomycin HCl 0 ml @ 0 mls/hr UD IV 05/18/24 07:45 Cancel Norepinephrine Bitartrate 32 mg/ Sodium Chloride 250 ml @ 0.938 mls/ hr Q24H IV 05/18/24 16:00 06/04/24 12:06 0.938 MLS/HR Potassium Chloride 100 ml @ 50 mls/hr Q2H IV 05/22/24 12:30 05/22/24 16:29 Cancel Diagnostic Test (Pha) 1 strip Q6HR 05/24/24 12:00 06/09/24 06:09 1 STRIP Insulin Human Regular FOLLOW SLIDING SCALE Q6HR SC 05/24/24 12:00 06/09/24 06:12 2 UNITS Dextrose 50 ml UD IV 05/24/24 12:00 Dexmedetomidine HCl 400 mcg/ Dextrose 100 ml @ 3.17 mls/hr Q24H IV 05/28/24 20:45 06/07/24 08:19 3.17 MLS/HR Enoxaparin Sodium 70 mg Q12HR SC 06/01/24 22:00 06/08/24 21:27 70 MG Labetalol HCl 10 mg Q2HPRN PRN IV 06/02/24 07:45 06/09/24 02:47 10 MG Micafungin Sodium 100 mg/Sodium Chloride 100 ml @ 100 mls/hr DAILY IV 06/03/24 10:00 06/08/24 11:03 100 MLS/HR Ceftriaxone Sodium/Dextrose 50 ml @ 50 mls/hr DAILY IV 06/07/24 10:00 06/08/24 10:03 50 MLS/HR Metronidazole 100 ml @ 100 mls/hr Q8HR IV 06/06/24 22:00 06/09/24 06:09 100 MLS/HR Metoprolol Tartrate 4 mg Q6HR IV 06/08/24 12:00 06/09/24 06:08 4 MG Fat Emulsion Intravenous 100 ml/Sodium Chloride 40 meq/ Potassium Acetate 60 meq/Magnesium Sulfate 16 meq/ Multivitamins 10 ml/Chromium/ Copper/Manganese/ Zinc 1 ml/Insulin Human Regular 22 units/Amino Acids/ Dextrose/Purified Water 1,755.22 ml @ 73 mls/hr Q24H3M IV 06/08/24 20:00 06/09/24 19:59 06/08/24 20:00 73 MLS/HR Hydralazine HCl 10 mg Q4HPRN PRN IV 06/08/24 12:45 Potassium Chloride 100 ml @ 50 mls/hr Q2H IV 06/09/24 06:30 06/09/24 10:29 06/09/24 08:22 50 MLS/HR Laboratory Laboratory Tests 06/09/24 03:20 Test 06/09/24 03:20 Range/Units Serum Glucose 125 H 74-106 mg/dL Microbiology Date/Time Source Procedure Growth Status 06/07/24 03:00 Abdomen Gram Stain - Final Resulted 06/07/24 03:00 Abdomen Wound Culture - Preliminary Resulted 06/06/24 16:07 Blood Blood Culture - Preliminary NO GROWTH AFTER 48 HOURS OF INCUBATION. Resulted 06/06/24 14:23 Urine - [place] Urine Culture - Final Complete 05/16/24 14:20 Sputum Gram Stain - Final Complete 05/16/24 14:20 Respiratory Culture - Final Yeast, not [place] albicans Complete Examination: GENERAL:Normal, HEENT:Normal, NECK:Normal, LUNGS:Normal, CVS:Normal, ABDOMEN:Normal (Wounds C/D/I Iliostomy funtonal viable and pink), MSK:Abnormal (Left sided weakness 2nd right MCA), SKIN:Normal, NEURO:Normal, :Normal Problem List/Assessment/Plan Assessment and Plan Overall improved reportedly [employer] team has extubated, patient taking in oral diet although malnutrition secondary to prolonged intubation. Condition Guarded some Improvements, Malnutrition an issue sepsis Ileostomy functioning well, drains mod Anemia stable Hx colon CA Hx Breast CA Right MCA Plan discussed with Plan discussed with: Patient, Other (Lianet her sister updated and will text or call me on any questions... We are anticipating medium to shelter care facility and I will stat initiating with [facility] [employer] [facility] for potential options.) Visit Coding Surgery Date of Service if different f: Jun 10, 2024 Surgery Visit Codes: NOT BILLABLE ANDRES PAZ DO Jun 09, 2024 09:31
[2024-06-09 11:12] LABS: Basophils # (auto) 0 10 ^3/uL (0-0.2); Basophils % (auto) 0.2 % (0.0-2.0); Eosinophils # (auto) 0.1 10 ^3/uL (0-0.8); Eosinophils % (auto) 1.1 % (0.0-7.0); Hematocrit 26.4 % (36.0-46.0); Hemoglobin 8.8 g/dL (12.2-16.2); Lymphocytes % (auto) 9.5 % (10.0-50.0); Mean Corpuscular Hemoglobin 29.1 pg (28.0-32.0); Mean Corpuscular Hgb Conc. 33.2 g/dL (32.0-36.0); Mean Corpuscular Volume 87.8 fL (80.0-100.0); Monocytes % (auto) 10.3 % (0.0-12.0); Neutrophils # (auto) 7.9 10 ^3/uL (1.6-8.6); Neutrophils % (auto) 78.9 % (37.0-80.0); Platelet Count (auto) 321 10^3/uL (140-450); Red Blood Cells 3.01 10^6/uL (4.0-5.20); Red Cell Distribution Width 14.3 % (11.8-14.3)
[2024-06-09] MEDS: POTASSIUM PHOSPHATE 22 MEQ in SODIUM CHL 0.9% 100 ML IV ONE (13:06)
--- NOTE | 2024-06-09 13:35 | DVHPN2 ---
Subjective Alert, follows commands Reviewed: Care Plan, H&P, Labs, Medications, Previous Orders, Radiology Changes from previous H/P or p: Changes General: Per HPI Eyes: No Pain, No Vision change, No Conjunctivae inflammation, No Eyelid inflammation, No Other, No Redness ENT: No Ear pain, No Ear discharge, No Nose pain, No Nose discharge, No Nose congestion, No Mouth pain, No Mouth swelling, No Throat pain, No Throat swelling, No Other Cardiovascular: No Chest Pain, No Palpitations, No Orthopnea, No Paroxysmal Noc. Dyspnea, No Edema, No Lt Headedness, No Other Respiratory: No Cough, No Dry, No Shortness of breath, No SOB with excertion, No Wheezing, No Hemoptysis, No Pleuritic Pain, No Sputum, No Other Gastrointestinal: Nausea Genitourinary: No Dysuria, No Frequency, No Incontinence, No Hematuria, No Retention, No Other Musculoskeletal: No other, No neck pain, No shoulder pain, No arm pain, No back pain, No hand pain, No leg pain, No foot pain Skin: No Rash, No Lesions, No Jaundice, No Bruising, No Other Objective Vitals Vital Signs Date Time Temp Pulse Resp B/P (MAP) Pulse Ox O2 Delivery O2 Flow Rate FiO2 06/09/24 13:01 70 149/36 06/09/24 06:15 24 98 Nasal Cannula* 2 28 06/09/24 03:00 99.5 211.1 Intake/Output Intake and Output 06/09/24 07:00 Intake Total 2207 ml Output Total 2315 ml Balance -108 ml Intake Oral 0 ml IV Total 2207 ml Output Urine Total 1250 ml Gastric Drainage Total 450 ml Drainage Total 135 ml Other 480 ml # Bowel Movements 2 General Appearance: moderate distress, Other (Intubated and sedated) HEENT: Atraumatic, PERRLA, Other (Pupils equal, 4 mm, reactive to light to 3 mm) Lungs: Clear to auscultation, Normal air movement, Other (Mechanical ventilation) Cardiovascular: Regular rate, Normal S1, Normal S2 Abdomen: Other (Ileostomy with drainage. EVARISTO to right lower quadrant with thick serosanguineous secretions.) Musculoskeletal: Other (Unable to assess) Extremities: No edema, Other (Poor cap refill to left lower extremity with some cyanosis noted) Neuro: Other (Left arm weakness including yard manager and proximal muscles) Skin: Dry, Intact, Other (Surgical incision dry and intact) Psych/Mental Status: Mental status NL, Mood NL Medications Current Medications Medications Dose Ordered Sig/Nora Route Start Time Stop Time Status Last Admin Dose Admin Fentanyl Citrate 250 ml @ 2.5 mls/hr Q24H IV 05/16/24 14:00 06/07/24 03:26 20 MLS/HR Midazolam HCl 50 ml @ 1 mls/hr Q24H IV 05/16/24 21:00 06/07/24 03:24 9 MLS/HR Phenylephrine HCl 250 ml @ 30 mls/hr Q8H20M IV 05/16/24 21:15 05/17/24 06:03 30 MLS/HR Acetaminophen 650 mg Q6HPRN PRN IN 05/16/24 22:30 06/08/24 19:25 650 MG Pantoprazole Sodium 40 mg DAILY IV 05/17/24 10:00 06/09/24 09:53 40 MG Amino Acids 0 ml @ 0 mls/hr PER PHARMACY IV 05/17/24 08:30 Vancomycin HCl 0 ml @ 0 mls/hr UD IV 05/18/24 07:45 Cancel Norepinephrine Bitartrate 32 mg/ Sodium Chloride 250 ml @ 0.938 mls/ hr Q24H IV 05/18/24 16:00 06/04/24 12:06 0.938 MLS/HR Potassium Chloride 100 ml @ 50 mls/hr Q2H IV 05/22/24 12:30 05/22/24 16:29 Cancel Diagnostic Test (Pha) 1 strip Q6HR 05/24/24 12:00 06/09/24 11:54 1 STRIP Insulin Human Regular FOLLOW SLIDING SCALE Q6HR SC 05/24/24 12:00 06/09/24 12:09 4 UNITS Dextrose 50 ml UD IV 05/24/24 12:00 Enoxaparin Sodium 70 mg Q12HR SC 06/01/24 22:00 06/09/24 12:00 70 MG Labetalol HCl 10 mg Q2HPRN PRN IV 06/02/24 07:45 06/09/24 09:39 10 MG Micafungin Sodium 100 mg/Sodium Chloride 100 ml @ 100 mls/hr DAILY IV 06/03/24 10:00 06/09/24 09:47 100 MLS/HR Ceftriaxone Sodium/Dextrose 50 ml @ 50 mls/hr DAILY IV 06/07/24 10:00 06/09/24 11:58 50 MLS/HR Metronidazole 100 ml @ 100 mls/hr Q8HR IV 06/06/24 22:00 06/09/24 06:09 100 MLS/HR Metoprolol Tartrate 4 mg Q6HR IV 06/08/24 12:00 06/09/24 12:01 4 MG Fat Emulsion Intravenous 100 ml/Sodium Chloride 40 meq/ Potassium Acetate 60 meq/Magnesium Sulfate 16 meq/ Multivitamins 10 ml/Chromium/ Copper/Manganese/ Zinc 1 ml/Insulin Human Regular 22 units/Amino Acids/ Dextrose/Purified Water 1,755.22 ml @ 73 mls/hr Q24H3M IV 06/08/24 20:00 06/09/24 19:59 06/08/24 20:00 73 MLS/HR Hydralazine HCl 10 mg Q4HPRN PRN IV 06/08/24 12:45 Fat Emulsion Intravenous 100 ml/Sodium Phosphate 20 meq/ Potassium Phosphate 44 meq/ Magnesium Sulfate 16 meq/ Multivitamins 10 ml/Chromium/ Copper/Manganese/ Zinc 1 ml/Insulin Human Regular 24 units/Amino Acids/ Dextrose/Purified Water 1,730.24 ml @ 73 mls/hr [id number] IV 06/09/24 20:00 06/10/24 19:59 Laboratory Results Laboratory Tests 06/09/24 03:20 06/09/24 10:37 Chemistry Test 06/09/24 03:20 Albumin 3.0 g/dL (3.2-4.8) L Calcium Level 10.0 mg/dL (8.7-10.4) Magnesium Level 2.2 mg/dL (1.6-2.6) Phosphorus Level 2.4 mg/dL (2.4-5.1) Total Protein 6.4 g/dL (5.7-8.2) Lipid panel Test 06/09/24 03:20 Triglycerides Level 133 mg/dL (< 150) LFT Test 06/09/24 03:20 Alanine Aminotransferase (ALT) 21 U/L (7-40) Alkaline Phosphatase 163 U/L (46-116) H Aspartate Amino Transferase (AST) 26 U/L (13-40) Total Bilirubin 1.1 mg/dL (0.2-1.0) H Urinalysis Test 05/11/24 16:18 Urine Color Yellow (Yellow) Urine Clarity Clear (Clear) Urine pH 6.0 (5.0-9.0) Urine Specific [place] 1.020 (1.001-1.035) Urine Protein 1+ (Negative) H Urine Ketones 4+ (Negative) H Urine Blood Trace /uL (Negative) H Urine Nitrite Negative (Negative) Urine Bilirubin Negative (Negative) Urine Urobilinogen Normal mg/dL (Negative) Urine Leukocyte Esterase Negative /uL (Negative) Urine RBC 2 /hpf (0 - 4) Urine WBC 2 /hpf (0 - 5) Urine Squamous Epithelial Cells Few /hpf (<5) Urine Bacteria None seen /hpf (None Seen) Urine Mucus Few (None Seen) Urine Glucose Normal mg/dL (Normal) Microbiology Microbiology Date/Time Source Procedure Growth Status 06/07/24 03:00 Abdomen Gram Stain - Final Resulted 06/07/24 03:00 Abdomen Wound Culture - Preliminary Resulted 06/06/24 16:07 Blood Blood Culture - Preliminary NO GROWTH AFTER 48 HOURS OF INCUBATION. Resulted 06/06/24 14:23 Urine - [place] Urine Culture - Final Complete 05/16/24 14:20 Sputum Gram Stain - Final Complete 05/16/24 14:20 Respiratory Culture - Final Yeast, not Shawanda albicans Complete Assessment/Plan Assessment/Plan Robotic surgery hysterectomy and salpingo-oophorectomy complicated by Acute CVA Acute CVA w LUE hemiparesis Bowel perforation with repeat exploratory laparotomy with ileostomy creation History of breast cancer with bilateral mastectomies Afib RVR Acute hypoxic respiratory failure Mechanical intubation Exploratory laparotomy, drainage of intraabdominal abscess, thorough peritoneal lavage with reinforcement of the anastomotic location of the previous anastomosis as well as a diverting loop ileostomy on 05/24/24 Anemia Right upper extremity DVT Plan Mechanical ventilation TPN IV antibiotics: Vancomycin + Meropenem No vasopressors Sedation prn GI Prophylaxis: Protonix Transfuse blood prn 05/29/24: Transfuse 1 unit RBCs for Hb 5.9 Lasix 20 mg IV x1 Check Hb after transfusion Off pressors Antibiotics: Meropenem, Vanco, Micafungin Amiodarone IV Taper sedation down as tolerated CXR: Clear TPN Protonix 05/30/24: Discussed with Dr. Fritz Lake Will do CT ABD pelvis to follow up on abscess IV antibiotics Taper sedation down C-PAP? per Dr. Poon 05/31/24: CT abdomen showed no fluid collection IV antibiotics: Meropenem, Vancomycin & Micafungin Amiodarone Dr. Fritz Lake recommended to continue medical treatment, no surgical intervention Sedation as needed TPN 06/01/2024: Start Lovenox 70 mg subQ q.[address] Lake and Neurology IV antibiotics meropenem and vancomycin Micafungin TPN Tapered down sedation as tolerated 06/02/24: Fever Yeast in cultures: Micafungin IV antibiotics: Meropenem & Vanco TPN RUE DVT: Lovenox Normocytic anemia 7.9 Consult ID [place] Cultures Afib: Amiodarone drip Discussed with her sister over the phone 06/03/2024: IV antibiotics: Meropenem and vancomycin IV antifungal: Micafungin TPN Amiodarone IV Dr. Fritz Lake for surgery is on the case 06/04/24: Abdominal infection: IV antibiotics: Meropenem, Vanco and Micafungin TPN Amiodarone Surgery on case: Will discuss with Dr. Frtiz Lake regarding tracheostomy ID consult is pending Discussed with sister over the phone, family is agreeable with the trach Anemia: Transfuse one unit RBCs 06/05/24: Hypokalemia: Replace IV antibiotics: Meropenem and Vanco IV antifungals: Micafungin TPN Amiodarone Discussed with Dr. Lake regarding tracheostomy Remove central line PICC line 06/06/24: Repeat CT abdomen & pelvis Discussed with her sister Lianet over the phone Discussed the advance directives She stated that patient as stated before that she wants to be treated but only if she becomes a vegetable then she would stop the treatment The family for now would like to continue treatment We will get a new blood and urine and sputum cultures Continue IV antibiotics and IV antifungal Dr. Lake is evaluating the patient for possible tracheostomy in the next few days 06/07/2024: Off sedation CPAP trial TPN Amiodarone IV antibiotics and antifungals Full code 06/08/24: Afib RVR, start Metoprolol IV scheduled dose Amiodarone is off HTN: Hydralazine Rocephin Flagyl Micafungin TPN NGT to suction Lovenox Hydralazine 06/09/24: Continue current Tx IV antibiotics Metoprolol IV NPO Tube suction Plan discussed with: Patient, Other Date of Service: Jun 09, 2024 Billing Provider: BARI MOORE MD Common Visit Codes: NOT BILLABLE BARI MOORE MD Jun 09, 2024 13:35
[2024-06-09 14:49] LABS: Basophils # (auto) 0.1 10 ^3/uL (0-0.2); Basophils % (auto) 0.5 % (0.0-2.0); Eosinophils # (auto) 0.2 10 ^3/uL (0-0.8); Eosinophils % (auto) 1.7 % (0.0-7.0); Hematocrit 25.7 % (36.0-46.0); Hemoglobin 8.7 g/dL (12.2-16.2); Lymphocytes % (auto) 9.2 % (10.0-50.0); Mean Corpuscular Hemoglobin 29.9 pg (28.0-32.0); Mean Corpuscular Hgb Conc. 33.9 g/dL (32.0-36.0); Mean Corpuscular Volume 88.2 fL (80.0-100.0); Monocytes # (auto) 1.2 10 ^3/uL (0-1.3); Neutrophils # (auto) 8.3 10 ^3/uL (1.6-8.6); Neutrophils % (auto) 77.6 % (37.0-80.0); Nucleated Red Blood Cells % 0.1 %; Platelet Count (auto) 323 10^3/uL (140-450); Red Blood Cells 2.92 10^6/uL (4.0-5.20); Red Cell Distribution Width 14.7 % (11.8-14.3); White Blood Cell 10.7 10^3/uL (4.4-10.8)
[2024-06-09] MEDS: TPN PER PHARMACY IV NR (20:00)
--- NOTE | 2024-06-09 22:14 | DVHPN2 ---
Progress Note - Dictate Date Seen: Jun 09, 2024 Has the PT tested + for MRSA If YES, has PT been informed?: No Medical Necessity Reason Pt with a Central, PICC or Fol: Yes The following are medically ne: Muhammad Catheter Reason for muhammad catheter: Strict I&O Subjective Patient seen and examined at bedside. Remains on supplemental oxygen. Overnight events reviewed. vital signs Vital Sign Date Time Temp Pulse Resp B/P (MAP) Pulse Ox O2 Delivery O2 Flow Rate FiO2 06/09/24 21:02 78 139/40 06/09/24 18:46 100.2 25 100 212.4 06/09/24 18:00 Nasal Cannula* 2 28 Total Intake and Output 06/08/24 06/08/24 06/09/24 15:00 23:00 07:00 Intake Total 718 ml 805 ml 684 ml Output Total 1510 ml 805 ml Balance 718 ml -705 ml -121 ml medications Current Medications Medications Dose Ordered Sig/Nora Route Start Time Stop Time Status Last Admin Dose Admin Fentanyl Citrate 250 ml @ 2.5 mls/hr Q24H IV 05/16/24 14:00 06/07/24 03:26 20 MLS/HR Midazolam HCl 50 ml @ 1 mls/hr Q24H IV 05/16/24 21:00 06/07/24 03:24 9 MLS/HR Phenylephrine HCl 250 ml @ 30 mls/hr Q8H20M IV 05/16/24 21:15 05/17/24 06:03 30 MLS/HR Acetaminophen 650 mg Q6HPRN PRN TX 05/16/24 22:30 06/08/24 19:25 650 MG Pantoprazole Sodium 40 mg DAILY IV 05/17/24 10:00 06/09/24 09:53 40 MG Amino Acids 0 ml @ 0 mls/hr PER PHARMACY IV 05/17/24 08:30 Vancomycin HCl 0 ml @ 0 mls/hr UD IV 05/18/24 07:45 Cancel Norepinephrine Bitartrate 32 mg/ Sodium Chloride 250 ml @ 0.938 mls/ hr Q24H IV 05/18/24 16:00 06/04/24 12:06 0.938 MLS/HR Potassium Chloride 100 ml @ 50 mls/hr Q2H IV 05/22/24 12:30 05/22/24 16:29 Cancel Diagnostic Test (Pha) 1 strip Q6HR 05/24/24 12:00 06/09/24 18:40 1 STRIP Insulin Human Regular FOLLOW SLIDING SCALE Q6HR SC 05/24/24 12:00 06/09/24 18:38 4 UNITS Dextrose 50 ml UD IV 05/24/24 12:00 Enoxaparin Sodium 70 mg Q12HR SC 06/01/24 22:00 06/09/24 22:00 70 MG Labetalol HCl 10 mg Q2HPRN PRN IV 06/02/24 07:45 06/09/24 09:39 10 MG Micafungin Sodium 100 mg/Sodium Chloride 100 ml @ 100 mls/hr DAILY IV 06/03/24 10:00 06/09/24 09:47 100 MLS/HR Ceftriaxone Sodium/Dextrose 50 ml @ 50 mls/hr DAILY IV 06/07/24 10:00 06/09/24 11:58 50 MLS/HR Metronidazole 100 ml @ 100 mls/hr Q8HR IV 06/06/24 22:00 06/09/24 22:00 100 MLS/HR Metoprolol Tartrate 4 mg Q6HR IV 06/08/24 12:00 06/09/24 18:34 4 MG Hydralazine HCl 10 mg Q4HPRN PRN IV 06/08/24 12:45 Fat Emulsion Intravenous 100 ml/Sodium Phosphate 20 meq/ Potassium Phosphate 44 meq/ Magnesium Sulfate 16 meq/ Multivitamins 10 ml/Chromium/ Copper/Manganese/ Zinc 1 ml/Insulin Human Regular 24 units/Amino Acids/ Dextrose/Purified Water 1,730.24 ml @ 73 mls/hr [id number] IV 06/09/24 20:00 06/10/24 19:59 06/09/24 20:00 73 MLS/HR Ondansetron HCl 4 mg Q4HPRN PRN IV 06/09/24 13:30 objective Gen.: Patient lying in bed in no apparent distress. On supplemental oxygen. Head: Normocephalic, atraumatic. Eyes: EOMI/PERRLA. Ears: Normal hearing. Normal anatomy. Neck/trachea: Trachea midline, supple. Nose: Normal external anatomy. Mouth: Moist mucous membranes. Chest: Decreased air entry bilaterally. No wheezing or rhonchi. Cardiovascular: Positive S1, positive S2. Regular rate and rhythm. Abdomen: Positive bowel sounds in all 4 quadrants. Soft, non-tender, non- distended. : Deferred. Rectal: Deferred. Skin: Warm, dry. Intact. Extremities: 2+ radial pulses bilaterally. No lower extremity edema. Neuro: Awake, alert, oriented x3. No gross motor or sensory deficits. Cranial nerves II through XII intact. Gait not assessed. laboratory and microbiology Laboratory Tests 06/09/24 14:12 06/09/24 03:20 Test 06/09/24 03:20 Range/Units Serum Glucose 125 H 74-106 mg/dL Assessment/Plan Impression: Acute hypoxic respiratory failure Abdominal pain due to recent robotic surgery hysterectomy and salpingo- oophorectomy History of breast cancer with bilateral mastectomies History of bowel surgery and ileostomy Anemia due to hemorrhage on hemodilution Shock Chronic pain syndrome Anemia Atrial fibrillation with RVR Bowel perforation with repeat exploratory laparotomy with ileostomy creation Events: Remains on supplemental oxygen. On 2 liters/minute via nasal cannula Taper O2 as tolerated Incentive spirometry Continue abx Head of bed elevation Aspiration precautions. TPN for nutritional support NGT Off pressors, hemodynamically stable. Upper extremity Doppler showed nonocclusive thrombus in the right axillary vein and brachial vein Currently on enoxaparin 70 mg subcutaneous Blood cultures revealed growth of yeast but not Shawanda albicans Currently on micafungin intravenous, Continue abx with ceftriaxone, metronidazole. ID recommendations appreciated Monitor renal function Monitor electrolytes, supplement as necessary K, phos supplementation Labs and imaging reviewed Rest of plan as outlined below. Plan: S/p extubation on 06/07 Supplemental oxygen. On 2 liters/minute via nasal cannula CXR, ABG reviewed. Pressors as necessary for hemodynamic support Titrate to keep mean arterial pressure greater than 65 mmHg. Continue antibiotics. F/u cultures. Monitor hemoglobin Transfuse if less than 7.0 grams/deciliter Monitor renal function due to Acute kidney injury. Monitor electrolytes. Supplement as necessary. Surgery recommendations appreciated. Nutritional support. On TPN Accucheks, ISS. GI prophylaxis - Pantoprazole 40 DVT prophylaxis- on enoxaparin 70 SC Condition: Critical Prognosis: Poor given multiple comorbidities. Rest of plan per hospitalist and other consultants. A total of 35 minutes of critical care time was spent reviewing the patient record, examining the patient, making a diagnostic and therapeutic plan, discussing this plan with the medical personnel, following up on diagnostic studies and following the patient for clinical stability excluding any and all procedures. At least 50% of this time was spent in direct, [id number] contact. Thank you Dr Reid for allowing me to participate in this patient's care. Further recommendations will depend on patient's clinical course. Please do not hesitate to contact me if you have any questions or concerns. This medical document was created using an electronic medical record system with [employer] dictation system. Although this document has been carefully reviewed, there may still be some phonetic and typographical errors. These areas are purely typographical due to imperfections of the software programs, and do not reflect any compromise in the patient's medical care. Dietary Evaluation Review Comments: 1) Advance pt diet when medically feasible to a 2gmNa diet modified per ASSISTANT VICE PRESIDENT recommendations 2) Continue current plan of care Expected Outcomes/Goals: 1) Pt diet to advance 2) F/U in 2-3 days Plan discussed with: Other (YASH Norton) Critical Care Time(min): 35 RG LEONE MD Jun 09, 2024 22:14
[2024-06-10] VITALS (85 sets, daily range): BP systolic 107–182; BP diastolic 21–75; PULSE 69–100; RESP 15–36; TEMP 97.7–100.6; O2SAT 98–100
[2024-06-10 04:30] LABS: Alanine Aminotransferase 19 U/L (7-40); Alkaline Phosphatase 173 U/L (46-116); Anion Gap 7 (5-15); BUN/Creatinine Ratio 46.8 (10.0-20.0); Blood Urea Nitrogen 29 mg/dL (9-23); Calcium 9.8 mg/dL (8.7-10.4); Carbon Dioxide 23 mmol/L (20-31); Chloride 106 mmol/L (98-107); Glucose 155 mg/dL (74-106); Magnesium 2.2 mg/dL (1.6-2.6); Sodium 136 mmol/L (136-145)
[2024-06-10 04:31] LABS: Albumin 3.1 g/dL (3.2-4.8); Aspartate Aminotransferase 19 U/L (13-40); Phosphorus 4.1 mg/dL (2.4-5.1); Total Protein 6.7 g/dL (5.7-8.2)
[2024-06-10 04:35] LABS: Red Cell Distribution Width 14.9 % (11.8-14.3)
[2024-06-10 04:37] LABS: Hematocrit 28.3 % (36.0-46.0); Hemoglobin 9.3 g/dL (12.2-16.2); Mean Corpuscular Hemoglobin 29.1 pg (28.0-32.0); Mean Corpuscular Volume 88.2 fL (80.0-100.0); Platelet Count (auto) 338 10^3/uL (140-450); Red Blood Cells 3.21 10^6/uL (4.0-5.20); White Blood Cell 12.1 10^3/uL (4.4-10.8)
[2024-06-10 04:44] LABS: Basophils % (manual) 0 (0.0-2.0); Blast Cells 0; Metamyelocytes % 0; Myelocytes % 0; Promyelocytes % 0; Reactive Lymphocytes 0
[2024-06-10 05:55] LABS: Band Neutrophils % (manual) 2; Eosinophils % (manual) 3 (0-7); Large Platelets FEW; Lymphocytes % (manual) 8 (10.0-50.0); Monocytes % (manual) 8 (0-12); Platelet Estimate Adequate
--- NOTE | 2024-06-10 09:34 | DVHPN2 ---
Progress Note Date Seen: Jun 09, 2024 Has the PT tested + for MRSA If YES, has PT been informed?: No Medical Necessity Reason Pt with a Central, PICC or Fol: Yes The following are medically ne: Muhammad Catheter Reason for muhammad catheter: Strict I&O Objective vital signs Vital Sign Date Time Temp Pulse Resp B/P (MAP) Pulse Ox O2 Delivery O2 Flow Rate FiO2 06/10/24 07:12 78 137/27 06/10/24 06:30 100.4 19 100 100.4 06/10/24 06:00 Nasal Cannula* 2 28 Total Intake and Output 06/09/24 06/09/24 06/10/24 15:00 23:00 07:00 Intake Total 836.50 ml 517.50 ml 611 ml Output Total 1870 ml 1595 ml Balance 836.50 ml -1352.50 ml -984 ml medications Current Medications Medications Dose Ordered Sig/Nora Route Start Time Stop Time Status Last Admin Dose Admin Fentanyl Citrate 250 ml @ 2.5 mls/hr Q24H IV 05/16/24 14:00 06/07/24 03:26 20 MLS/HR Midazolam HCl 50 ml @ 1 mls/hr Q24H IV 05/16/24 21:00 06/07/24 03:24 9 MLS/HR Phenylephrine HCl 250 ml @ 30 mls/hr Q8H20M IV 05/16/24 21:15 05/17/24 06:03 30 MLS/HR Acetaminophen 650 mg Q6HPRN PRN IN 05/16/24 22:30 06/09/24 22:15 650 MG Pantoprazole Sodium 40 mg DAILY IV 05/17/24 10:00 06/09/24 09:53 40 MG Amino Acids 0 ml @ 0 mls/hr PER PHARMACY IV 05/17/24 08:30 Vancomycin HCl 0 ml @ 0 mls/hr UD IV 05/18/24 07:45 Cancel Norepinephrine Bitartrate 32 mg/ Sodium Chloride 250 ml @ 0.938 mls/ hr Q24H IV 05/18/24 16:00 06/04/24 12:06 0.938 MLS/HR Potassium Chloride 100 ml @ 50 mls/hr Q2H IV 05/22/24 12:30 05/22/24 16:29 Cancel Diagnostic Test (Pha) 1 strip Q6HR 10/10/24 12:00 06/10/24 06:12 1 STRIP Insulin Human Regular FOLLOW SLIDING SCALE Q6HR SC 05/24/24 12:00 06/10/24 06:22 4 UNITS Dextrose 50 ml UD IV 05/24/24 12:00 Enoxaparin Sodium 70 mg Q12HR SC 06/01/24 22:00 06/09/24 22:00 70 MG Labetalol HCl 10 mg Q2HPRN PRN IV 06/02/24 07:45 06/09/24 09:39 10 MG Micafungin Sodium 100 mg/Sodium Chloride 100 ml @ 100 mls/hr DAILY IV 06/03/24 10:00 06/09/24 09:47 100 MLS/HR Ceftriaxone Sodium/Dextrose 50 ml @ 50 mls/hr DAILY IV 06/07/24 10:00 06/09/24 11:58 50 MLS/HR Metronidazole 100 ml @ 100 mls/hr Q8HR IV 06/06/24 22:00 06/10/24 06:12 100 MLS/HR Metoprolol Tartrate 4 mg Q6HR IV 06/08/24 12:00 06/10/24 06:12 4 MG Hydralazine HCl 10 mg Q4HPRN PRN IV 06/08/24 12:45 Fat Emulsion Intravenous 100 ml/Sodium Phosphate 20 meq/ Potassium Phosphate 44 meq/ Magnesium Sulfate 16 meq/ Multivitamins 10 ml/Chromium/ Copper/Manganese/ Zinc 1 ml/Insulin Human Regular 24 units/Amino Acids/ Dextrose/Purified Water 1,730.24 ml @ 73 mls/hr [id number] IV 06/09/24 20:00 06/10/24 19:59 06/09/24 20:00 73 MLS/HR Ondansetron HCl 4 mg Q4HPRN PRN IV 06/09/24 13:30 laboratory and microbiology Laboratory Tests 06/10/24 03:27 Test 06/10/24 03:27 Range/Units Serum Glucose 155 H 74-106 mg/dL Microbiology Date/Time Source Procedure Growth Status 06/07/24 03:00 Abdomen Gram Stain - Final Resulted 06/07/24 03:00 Abdomen Wound Culture - Preliminary Resulted 06/06/24 16:07 Blood Blood Culture - Preliminary NO GROWTH AFTER 72 HOURS OF INCUBATION. Resulted 06/06/24 14:23 Urine - [place] Urine Culture - Final Complete 05/16/24 14:20 Sputum Gram Stain - Final Complete 05/16/24 14:20 Respiratory Culture - Final Yeast, not Shawanda albicans Complete Problem List/Assessment/Plan Problem List/Assessment/Plan EXTUBATED AFEBRILE TAMX 99.00 VSS NO VASOPRESSOR WBC WNL ABD SOFT NO BM DRAINS IN PLACE R 70 CC PURULENT L 40 CC SEROUS DRESSING ABD WOUND DRAINAGE NOTED WITH BAG IN PLACE CONDITION GUARDED ILEOSTOMY VIABLE AND FUNCTIONAL NURSE AT BEDSIDE CONTINUE SUPPORTIVE CARE PULM EVAL ONGOING CONTINUE ID EVAL AND IV ABX Plan discussed with: Patient Dietary Evaluation Review Comments: 1) Advance pt diet when medically feasible to a 2gmNa diet modified per STATOR TESTER recommendations 2) Continue current plan of care Expected Outcomes/Goals: 1) Pt diet to advance 2) F/U in 2-3 days SHEY COVARRUBIAS MD Jun 10, 2024 09:34
--- NOTE | 2024-06-10 09:37 | DVHPN2 ---
Progress Note Date Seen: Jun 10, 2024 Has the PT tested + for MRSA If YES, has PT been informed?: No Medical Necessity Reason Pt with a Central, PICC or Fol: Yes The following are medically ne: Muhammad Catheter Reason for muhammad catheter: Strict I&O Objective vital signs Vital Sign Date Time Temp Pulse Resp B/P (MAP) Pulse Ox O2 Delivery O2 Flow Rate FiO2 06/10/24 07:12 78 137/27 06/10/24 06:30 100.4 19 100 100.4 06/10/24 06:00 Nasal Cannula* 2 28 Total Intake and Output 06/09/24 06/09/24 06/10/24 15:00 23:00 07:00 Intake Total 836.50 ml 517.50 ml 611 ml Output Total 1870 ml 1595 ml Balance 836.50 ml -1352.50 ml -984 ml medications Current Medications Medications Dose Ordered Sig/Nora Route Start Time Stop Time Status Last Admin Dose Admin Fentanyl Citrate 250 ml @ 2.5 mls/hr Q24H IV 05/16/24 14:00 06/07/24 03:26 20 MLS/HR Midazolam HCl 50 ml @ 1 mls/hr Q24H IV 05/16/24 21:00 06/07/24 03:24 9 MLS/HR Phenylephrine HCl 250 ml @ 30 mls/hr Q8H20M IV 05/16/24 21:15 05/17/24 06:03 30 MLS/HR Acetaminophen 650 mg Q6HPRN PRN IN 05/16/24 22:30 06/09/24 22:15 650 MG Pantoprazole Sodium 40 mg DAILY IV 05/17/24 10:00 06/09/24 09:53 40 MG Amino Acids 0 ml @ 0 mls/hr PER PHARMACY IV 05/17/24 08:30 Vancomycin HCl 0 ml @ 0 mls/hr UD IV 05/18/24 07:45 Cancel Norepinephrine Bitartrate 32 mg/ Sodium Chloride 250 ml @ 0.938 mls/ hr Q24H IV 05/18/24 16:00 06/04/24 12:06 0.938 MLS/HR Potassium Chloride 100 ml @ 50 mls/hr Q2H IV 05/22/24 12:30 05/22/24 16:29 Cancel Diagnostic Test (Pha) 1 strip Q6HR 10/10/24 12:00 06/10/24 06:12 1 STRIP Insulin Human Regular FOLLOW SLIDING SCALE Q6HR SC 05/24/24 12:00 06/10/24 06:22 4 UNITS Dextrose 50 ml UD IV 05/24/24 12:00 Enoxaparin Sodium 70 mg Q12HR SC 06/01/24 22:00 06/09/24 22:00 70 MG Labetalol HCl 10 mg Q2HPRN PRN IV 06/02/24 07:45 06/09/24 09:39 10 MG Micafungin Sodium 100 mg/Sodium Chloride 100 ml @ 100 mls/hr DAILY IV 06/03/24 10:00 06/09/24 09:47 100 MLS/HR Ceftriaxone Sodium/Dextrose 50 ml @ 50 mls/hr DAILY IV 06/07/24 10:00 06/09/24 11:58 50 MLS/HR Metronidazole 100 ml @ 100 mls/hr Q8HR IV 06/06/24 22:00 06/10/24 06:12 100 MLS/HR Metoprolol Tartrate 4 mg Q6HR IV 06/08/24 12:00 06/10/24 06:12 4 MG Hydralazine HCl 10 mg Q4HPRN PRN IV 06/08/24 12:45 Fat Emulsion Intravenous 100 ml/Sodium Phosphate 20 meq/ Potassium Phosphate 44 meq/ Magnesium Sulfate 16 meq/ Multivitamins 10 ml/Chromium/ Copper/Manganese/ Zinc 1 ml/Insulin Human Regular 24 units/Amino Acids/ Dextrose/Purified Water 1,730.24 ml @ 73 mls/hr [id number] IV 06/09/24 20:00 06/10/24 19:59 06/09/24 20:00 73 MLS/HR Ondansetron HCl 4 mg Q4HPRN PRN IV 06/09/24 13:30 laboratory and microbiology Laboratory Tests 06/10/24 03:27 Test 06/10/24 03:27 Range/Units Serum Glucose 155 H 74-106 mg/dL Microbiology Date/Time Source Procedure Growth Status 06/07/24 03:00 Abdomen Gram Stain - Final Resulted 06/07/24 03:00 Abdomen Wound Culture - Preliminary Resulted 06/06/24 16:07 Blood Blood Culture - Preliminary NO GROWTH AFTER 72 HOURS OF INCUBATION. Resulted 06/06/24 14:23 Urine - [place] Urine Culture - Final Complete 05/16/24 14:20 Sputum Gram Stain - Final Complete 05/16/24 14:20 Respiratory Culture - Final Yeast, not Shawanda albicans Complete Problem List/Assessment/Plan Problem List/Assessment/Plan REMAINS EXTUBATED AFEBRILE TAMX 99.00 VSS NO VASOPRESSOR WBC MILD ELEVATION ABD SOFT SMALL SMEAR BM DRAINS IN PLACE R 70 CC PURULENT L 40 CC PURULENT DRESSING ABD WOUND DRAINAGE LESS CONDITION GUARDED ILEOSTOMY VIABLE AND FUNCTIONAL NURSE AT BEDSIDE CONTINUE SUPPORTIVE CARE PULM EVAL ONGOING CONTINUE ID EVAL AND IV ABX NURSE AT BEDSIDE FAMILY AWARE AND UPDATED RE HER ONGOING CARE AND CONDITION Plan discussed with: Patient Dietary Evaluation Review Comments: 1) Advance pt diet when medically feasible to a 2gmNa diet modified per TOUR CONDUCTOR recommendations 2) Continue current plan of care Expected Outcomes/Goals: 1) Pt diet to advance 2) F/U in 2-3 days SHEY COVARRUBIAS MD Jun 10, 2024 09:37
--- NOTE | 2024-06-10 09:39 | DVHPN2 ---
Chief Complaints Patient reports: Feels better (as she tries toverbalize but nods her head appropriately), Other (Attempting to verbalize but I was unable to comprehend. She has a probe acting appropriately to commands regards to moving her extremities. I still could not get her to move her left upper extremity) Nursing reports: No new complaints (continued anemia), Other (Low-grade fever) Objective Vitals Vital Signs Date Time Temp Pulse Resp B/P (MAP) Pulse Ox O2 Delivery O2 Flow Rate FiO2 06/10/24 07:12 78 137/27 06/10/24 06:30 100.4 19 100 100.4 06/10/24 06:00 Nasal Cannula* 2 28 Medications Current Medications Medications (Trade) Dose Ordered Sig/Nora Route PRN Reason Start Time Stop Time Status Last Admin Fat Emulsion Intravenous 100 ml/Sodium Phosphate 20 meq/ Potassium Phosphate 44 meq/ Magnesium Sulfate 16 meq/ Multivitamins 10 ml/Chromium/ Copper/Manganese/ Zinc 1 ml/Insulin Human Regular 24 units/Amino Acids/ Dextrose/Purified Water 1,730.24 ml @ 73 mls/hr [id number] IV 06/09/24 20:00 06/10/24 19:59 06/09/24 20:00 Ondansetron HCl (Zofran) 4 mg Q4HPRN PRN IV NAUSEA / VOMITING 06/09/24 13:30 General: Normal Head/Eyes: Normal ENT: Normal Neck: Normal Lungs: Normal Cardiovascular: Normal Abdominal: Normal (Wounds clean dry and intact iliostomy billous stool , drains one serosang , the other less billous impromved) Abdomen quadrants: RUQ Absent bowel sounds (+ BS) Musculoskeletal: Normal Extremities: Normal, Other (Left upper extremity edema, mild lower ankle bilateral edema) Skin: Normal Neurological: Normal (appropriate grimous and sensation), Other (Weak and left lower extremity no movement left upper extremity) Studies Laboratory Tests 06/10/24 03:27 Test 06/10/24 03:27 Range/Units Serum Glucose 155 H 74-106 mg/dL Ass/Plan Assessment Overall improved; low-grade fever ; patient taking in oral diet although malnutrition secondary to prolonged intubation. Condition Guarded some Improvements, Malnutrition an issue sepsis Ileostomy functioning well, drains mod Anemia stable Hx colon CA Hx Breast CA Right MCA (left upper extremity paralysis) Plan Again called Lianet her sister updated her all questions answered we will continue change to see exactly what her options are short and long-term as outpatient once we get to that point through psychologist social. ANDRES PAZ DO Jun 10, 2024 09:39
[2024-06-10] MEDS: ONDANSETRON HCL 4 MG/2 ML VIAL IV PRN (16:14)
[2024-06-10] MEDS: NICOTINE 21MG/24 HR TOPICAL PATCH TD ONE (17:18)
--- NOTE | 2024-06-10 17:40 | DVHPN2 ---
Subjective Alert, follows commands Reviewed: Care Plan, H&P, Labs, Medications, Previous Orders, Radiology Changes from previous H/P or p: No Changes General: Per HPI Eyes: No Pain, No Vision change, No Conjunctivae inflammation, No Eyelid inflammation, No Other, No Redness ENT: No Ear pain, No Ear discharge, No Nose pain, No Nose discharge, No Nose congestion, No Mouth pain, No Mouth swelling, No Throat pain, No Throat swelling, No Other Cardiovascular: No Chest Pain, No Palpitations, No Orthopnea, No Paroxysmal Noc. Dyspnea, No Edema, No Lt Headedness, No Other Respiratory: No Cough, No Dry, No Shortness of breath, No SOB with excertion, No Wheezing, No Hemoptysis, No Pleuritic Pain, No Sputum, No Other Gastrointestinal: Nausea Genitourinary: No Dysuria, No Frequency, No Incontinence, No Hematuria, No Retention, No Other Musculoskeletal: No other, No neck pain, No shoulder pain, No arm pain, No back pain, No hand pain, No leg pain, No foot pain Skin: No Rash, No Lesions, No Jaundice, No Bruising, No Other Objective Vitals Vital Signs Date Time Temp Pulse Resp B/P (MAP) Pulse Ox O2 Delivery O2 Flow Rate FiO2 06/10/24 17:16 83 144/48 06/10/24 16:00 29 100 Nasal Cannula* 2 28 06/10/24 06:30 100.4 100.4 Intake/Output Intake and Output 06/10/24 05:00 Intake Total 2038.00 ml Output Total 2675 ml Balance -637.00 ml Intake Oral 0 ml IV Total 2038.00 ml Output Urine Total 1250 ml Gastric Drainage Total 1165 ml Drainage Total 175 ml Other 85 ml # Bowel Movements 2 General Appearance: moderate distress, Other (Intubated and sedated) HEENT: Atraumatic, PERRLA, Other (Pupils equal, 4 mm, reactive to light to 3 mm) Lungs: Clear to auscultation, Normal air movement, Other (Mechanical ventilation) Cardiovascular: Regular rate, Normal S1, Normal S2 Abdomen: Other (Ileostomy with drainage. EVARISTO to right lower quadrant with thick serosanguineous secretions.) Musculoskeletal: Other (Unable to assess) Extremities: No edema, Other (Poor cap refill to left lower extremity with some cyanosis noted) Neuro: Other (Left arm weakness including profile trimmer and proximal muscles) Skin: Dry, Intact, Other (Surgical incision dry and intact) Psych/Mental Status: Mental status NL, Mood NL Medications Current Medications Medications Dose Ordered Sig/Nora Route Start Time Stop Time Status Last Admin Dose Admin Fentanyl Citrate 250 ml @ 2.5 mls/hr Q24H IV 05/16/24 14:00 06/07/24 03:26 20 MLS/HR Midazolam HCl 50 ml @ 1 mls/hr Q24H IV 05/16/24 21:00 06/07/24 03:24 9 MLS/HR Phenylephrine HCl 250 ml @ 30 mls/hr Q8H20M IV 05/16/24 21:15 05/17/24 06:03 30 MLS/HR Acetaminophen 650 mg Q6HPRN PRN TX 05/16/24 22:30 06/09/24 22:15 650 MG Pantoprazole Sodium 40 mg DAILY IV 05/17/24 10:00 06/10/24 10:02 40 MG Amino Acids 0 ml @ 0 mls/hr PER PHARMACY IV 05/17/24 08:30 Vancomycin HCl 0 ml @ 0 mls/hr UD IV 05/18/24 07:45 Cancel Norepinephrine Bitartrate 32 mg/ Sodium Chloride 250 ml @ 0.938 mls/ hr Q24H IV 05/18/24 16:00 06/04/24 12:06 0.938 MLS/HR Potassium Chloride 100 ml @ 50 mls/hr Q2H IV 05/22/24 12:30 05/22/24 16:29 Cancel Diagnostic Test (Pha) 1 strip Q6HR 05/24/24 12:00 06/10/24 12:02 1 STRIP Insulin Human Regular FOLLOW SLIDING SCALE Q6HR SC 05/24/24 12:00 06/10/24 12:04 4 UNITS Dextrose 50 ml UD IV 05/24/24 12:00 Enoxaparin Sodium 70 mg Q12HR SC 06/01/24 22:00 06/10/24 10:02 70 MG Labetalol HCl 10 mg Q2HPRN PRN IV 06/02/24 07:45 06/09/24 09:39 10 MG Micafungin Sodium 100 mg/Sodium Chloride 100 ml @ 100 mls/hr DAILY IV 06/03/24 10:00 06/10/24 10:02 100 MLS/HR Ceftriaxone Sodium/Dextrose 50 ml @ 50 mls/hr DAILY IV 06/07/24 10:00 06/10/24 10:29 50 MLS/HR Metronidazole 100 ml @ 100 mls/hr Q8HR IV 06/06/24 22:00 06/10/24 15:16 100 MLS/HR Metoprolol Tartrate 4 mg Q6HR IV 06/08/24 12:00 06/10/24 17:16 4 MG Hydralazine HCl 10 mg Q4HPRN PRN IV 06/08/24 12:45 Fat Emulsion Intravenous 100 ml/Sodium Phosphate 20 meq/ Potassium Phosphate 44 meq/ Magnesium Sulfate 16 meq/ Multivitamins 10 ml/Chromium/ Copper/Manganese/ Zinc 1 ml/Insulin Human Regular 24 units/Amino Acids/ Dextrose/Purified Water 1,730.24 ml @ 73 mls/hr [id number] IV 06/09/24 20:00 06/10/24 19:59 06/09/24 20:00 73 MLS/HR Ondansetron HCl 4 mg Q4HPRN PRN IV 06/09/24 13:30 06/10/24 16:14 4 MG Fat Emulsion Intravenous 100 ml/Sodium Acetate 20 meq/Sodium Phosphate 20 meq/ Potassium Phosphate 44 meq/ Magnesium Sulfate 16 meq/ Multivitamins 10 ml/Chromium/ Copper/Manganese/ Zinc 1 ml/Insulin Human Regular 26 units/Amino Acids/ Dextrose/Purified Water 1,740.26 ml @ 76 mls/hr [id number] IV 06/10/24 20:00 06/11/24 19:59 Nicotine 1 patch DAILY TD 06/11/24 10:00 Laboratory Results Laboratory Tests 06/10/24 03:27 Chemistry Test 06/10/24 03:27 Albumin 3.1 g/dL (3.2-4.8) L Calcium Level 9.8 mg/dL (8.7-10.4) Magnesium Level 2.2 mg/dL (1.6-2.6) Phosphorus Level 4.1 mg/dL (2.4-5.1) Total Protein 6.7 g/dL (5.7-8.2) LFT Test 06/10/24 03:27 Alanine Aminotransferase (ALT) 19 U/L (7-40) Alkaline Phosphatase 173 U/L (46-116) H Aspartate Amino Transferase (AST) 19 U/L (13-40) Total Bilirubin 1.0 mg/dL (0.2-1.0) Urinalysis Test 05/11/24 16:18 Urine Color Yellow (Yellow) Urine Clarity Clear (Clear) Urine pH 6.0 (5.0-9.0) Urine Specific [place] 1.020 (1.001-1.035) Urine Protein 1+ (Negative) H Urine Ketones 4+ (Negative) H Urine Blood Trace /uL (Negative) H Urine Nitrite Negative (Negative) Urine Bilirubin Negative (Negative) Urine Urobilinogen Normal mg/dL (Negative) Urine Leukocyte Esterase Negative /uL (Negative) Urine RBC 2 /hpf (0 - 4) Urine WBC 2 /hpf (0 - 5) Urine Squamous Epithelial Cells Few /hpf (<5) Urine Bacteria None seen /hpf (None Seen) Urine Mucus Few (None Seen) Urine Glucose Normal mg/dL (Normal) Microbiology Microbiology Date/Time Source Procedure Growth Status 06/07/24 03:00 Abdomen Gram Stain - Final Resulted 06/07/24 03:00 Abdomen Wound Culture - Preliminary Resulted 06/06/24 16:07 Blood Blood Culture - Preliminary NO GROWTH AFTER 72 HOURS OF INCUBATION. Resulted 06/06/24 14:23 Urine - [place] Urine Culture - Final Complete 05/16/24 14:20 Sputum Gram Stain - Final Complete 05/16/24 14:20 Respiratory Culture - Final Yeast, not Shawanda albicans Complete Assessment/Plan Assessment/Plan Robotic surgery hysterectomy and salpingo-oophorectomy complicated by Acute CVA Acute CVA w LUE hemiparesis Bowel perforation with repeat exploratory laparotomy with ileostomy creation History of breast cancer with bilateral mastectomies Afib RVR Acute hypoxic respiratory failure Mechanical intubation Exploratory laparotomy, drainage of intraabdominal abscess, thorough peritoneal lavage with reinforcement of the anastomotic location of the previous anastomosis as well as a diverting loop ileostomy on 05/24/24 Anemia Right upper extremity DVT Plan Mechanical ventilation TPN IV antibiotics: Vancomycin + Meropenem No vasopressors Sedation prn GI Prophylaxis: Protonix Transfuse blood prn 05/29/24: Transfuse 1 unit RBCs for Hb 5.9 Lasix 20 mg IV x1 Check Hb after transfusion Off pressors Antibiotics: Meropenem, Vanco, Micafungin Amiodarone IV Taper sedation down as tolerated CXR: Clear TPN Protonix 05/30/24: Discussed with Dr. Fritz Lake Will do CT ABD pelvis to follow up on abscess IV antibiotics Taper sedation down C-PAP? per Dr. Poon 05/31/24: CT abdomen showed no fluid collection IV antibiotics: Meropenem, Vancomycin & Micafungin Amiodarone Dr. Fritz Lake recommended to continue medical treatment, no surgical intervention Sedation as needed TPN 06/01/2024: Start Lovenox 70 mg subQ q.[address] Lake and Neurology IV antibiotics meropenem and vancomycin Micafungin TPN Tapered down sedation as tolerated 06/02/24: Fever Yeast in cultures: Micafungin IV antibiotics: Meropenem & Vanco TPN RUE DVT: Lovenox Normocytic anemia 7.9 Consult ID [place] Cultures Afib: Amiodarone drip Discussed with her sister over the phone 06/03/2024: IV antibiotics: Meropenem and vancomycin IV antifungal: Micafungin TPN Amiodarone IV Dr. Fritz Lake for surgery is on the case 06/04/24: Abdominal infection: IV antibiotics: Meropenem, Vanco and Micafungin TPN Amiodarone Surgery on case: Will discuss with Dr. Fritz Lake regarding tracheostomy ID consult is pending Discussed with sister over the phone, family is agreeable with the trach Anemia: Transfuse one unit RBCs 06/05/24: Hypokalemia: Replace IV antibiotics: Meropenem and Vanco IV antifungals: Micafungin TPN Amiodarone Discussed with Dr. Lake regarding tracheostomy Remove central line PICC line 06/06/24: Repeat CT abdomen & pelvis Discussed with her sister Lianet over the phone Discussed the advance directives She stated that patient as stated before that she wants to be treated but only if she becomes a vegetable then she would stop the treatment The family for now would like to continue treatment We will get a new blood and urine and sputum cultures Continue IV antibiotics and IV antifungal Dr. Lake is evaluating the patient for possible tracheostomy in the next few days 06/07/2024: Off sedation CPAP trial TPN Amiodarone IV antibiotics and antifungals Full code 06/08/24: Afib RVR, start Metoprolol IV scheduled dose Amiodarone is off HTN: Hydralazine Rocephin Flagyl Micafungin TPN NGT to suction Lovenox Hydralazine 06/09/24: Continue current Tx IV antibiotics Metoprolol IV NPO Tube suction 06/10 no changes Plan discussed with: Other (nurse) My Orders Orders - THELMA GARCIA MD Procedure Category Date Status Time Nicotine 21mg/24hr PHA 06/11/24 In Process (Nicoderm 21mg/24hr) 10:00 Date of Service: Jun 10, 2024 Billing Provider: THELMA GARCIA MD Common Visit Codes: 10600-[facility] 30-74 MIN THELMA GARCIA MD Jun 10, 2024 17:40
[2024-06-10] MEDS: TPN PER PHARMACY IV NR (20:00)
--- NOTE | 2024-06-10 20:30 | DVHPN2 ---
Progress Note - Dictate Date Seen: Jun 10, 2024 Has the PT tested + for MRSA If YES, has PT been informed?: No Medical Necessity Reason Pt with a Central, PICC or Fol: Yes The following are medically ne: Muhammad Catheter Reason for muhammad catheter: Strict I&O Subjective Ms. Barrera is a 68 years old right-handed female with a history of hypertension, anemia, breast cancer, she was admitted to the [facility] on 05/07/2024 for scheduled hysterectomy and oophorectomy. Post surgically, she woke up with left-sided weakness, and MRI showed multiple stroke in the right MCA territory. During the hospital stay, she developed fall perforation, and she went through abdominal surgery on 05/16/2024 Because of ongoing intraperitoneal sepsis/peritonitis, the patient went through exploratory laparotomy on 05/24/2024 I have seen and examined the patient in the ICU, I have discussed with her nurse. She is awake, oriented to person, place, socially appropriate, but she looks tired or said She moves right arm and legs She keeps spiking temperatures, she has leukocytosis CBC, 05/16/2024: Metabolic acidosis, 05/17/2024: Metabolic acidosis, 05/18/2024: Metabolic acidosis URINALYSIS, 05/11/2024: WBC: 2, URINE LEUKOCYTE ESTERASE: NEGATIVE WBC/HB/PLT/MCV, 05/04: 5.1/10.7/119/98.3, 05/17/2024: 20.4/8.5/205/86.9 05/19/2024: 12.2/11.1/125/86.2, 05/20/2024: 8.1/10.5/113/86.1, 05/21/2024: 6.6/10.5/106/86.5, 05/26/2024: 9.6/9.2/184/93.8, 05/28/2024: 7.5/7/223/89.6, 05/29/24: 6.8/5.9/251/88.1, 05/30/2024: 7.4/7.7/268/86.6, 06/10/2024: 12.1/9.3/338/88.2 PT/INR/FTT, 05/16/2024: 17.4/1.71/34.2 K, 05/09/2024: 3.9, 05/10/24:3.1, 05/12/2024: 3.4, 05/16/2024: 2.8 Lactic acid, 05/15/2024: 1.6, 05/16/2024: 1.5 HCO3, 05/23/2024: 35 Bun.Cr, 05/23/2024: 37/0.75 LIVER FUNCTION TESTS, 05/12/2024: UNREMARKABLE, 05/16/2024: Unremarkable TBI/AST/ALT/AP, 05/18/2024: 1.2//, 05/19/2024: 3.1/04/23/2067, 05/23/2024: 3.1/48/35/170, 05/29/2024: 2.3/29/21/117 TG/HDL/LDL/HDL, 05/12/2024: 196/134/75/23 TSH, 05/12/2024: 2.01 Echocardiogram 05/14/2024: lvef 65% by visual estimate mild mitral regurg RV enlarged mild left atrium enlarged mild Extremity venous study, 06/01/2024: No left upper extremity DVT. Right internal jugular vein and subclavian vein are not visualized secondary to patient positioning. Nonocclusive thrombus is seen in the right axillary vein and brachial vein. Occlusive thrombus is present at the right cephalic vein. Carotid Doppler, 05/11/2024: 1. Occlusion of the right proximal ICA. 2. Greater than 50% stenosis of the right proximal ECA. 3. Greater than 50% stenosis of the left proximal ICA CT head, 05/11/2024: 1. Chronic lacunar infarct in right centrum semiovale. 2. Chronic periventricular ischemic changes. 3. Cerebral and cerebellar atrophy, likely age-related. 4. Advised further evaluation with MRI brain without contrast if clinically indicated CT abdomen/pelvis, 05/15/2024: Small bowel obstruction with evidence of perforation including free intraperitoneal fluid and air. Extensive subcutaneous emphysema likely secondary to bowel perforation CT abdomen/pelvis, 05/16/2024: 1. Sequelae of recent postsurgical changes as described above. Correlate with surgical history. 2. Pneumoperitoneum and free fluid in the abdomen and pelvis. 3. Large collection containing fluid and gas, predominantly in the right hemiabdomen. There is GI contrast extending into this collection from an adjacent small bowel loop. There is a component of this collection extending adjacent to the anterior superior aspect of the liver. 4. Moderate right hydronephrosis and hydroureter. The distal right ureter appears to be compressed by the large fluid collection in the right hemiabdomen. No obstructing calculus. 5. Dilated small bowel loops in the left hemiabdomen with suspected small-bowel obstruction. 6. Prominent subcutaneous edema in the ventral abdominal wall and extending caudally into the inguinal regions bilaterally, peroneal region, and anterior aspect of the left thigh. 7. Small bilateral pleural effusions with overlying atelectasis. 8. Additional findings as detailed above. CT abdomen, 05/23/2024: Postsurgical changes of the ventral abdomen with interval improvement in the diffuse soft tissue edema and ventral abdominal, pelvis and upper thigh subcutaneous emphysema. Interval significant decrease in size of the loculated collection within the right hemiabdomen and pelvis with small residual. Interval placement of drainage catheters terminating over the left upper abdominal quadrant and left hemipelvis as detailed above. Interval development of small to moderate ascites. Wall thickening of fluid-filled nondistended small bowel loops of the anterior mid to lower abdomen which may be from the surrounding ascites versus enteritis. Additional findings as above CT abdomen staff pelvis, 05/30/2024: 1. Radiodense contrast in the mid abdomen associated with surgical sutures. It is unclear whether this is in bowel or represents a bowel leak. Clinical correlation and continued follow-up is recommended. 2. Right pelvic, anterior abdominal wall and left abdomen drainage catheters in place. No definite abscess identified. 3. Extensive post postsurgical changes of the bowel. 4. Small amount of abdominal and pelvic ascities. 5. Small to moderate right pleural effusion. CTA neck, head, 05/14/24: 1. Complete occlusion of the right cervical internal carotid artery. There may be trickle flow in distal right cervical ICA. 2. Poor flow in the right intracranial ICA likely retrograde perfusion through the contralateral left side posterior circulation through the communicating arteries. 3. High-grade stenosis at the left carotid bulb with at least 70-80% stenosis. Moderate short-segment stenosis in the left proximal ICA with at least 60% stenosis. MRI HEAD, 05/11/2024: 1. Multiple foci of restricted diffusion in the right centrum semiovale and along the right superior frontal lobe compatible with acute to subacute infarcts. There is no evidence of acute hemorrhage or significant surrounding edema. 2. Absence of flow void in the intracranial portions of the right internal carotid artery which is likely occluded. vital signs Vital Sign Date Time Temp Pulse Resp B/P (MAP) Pulse Ox O2 Delivery O2 Flow Rate FiO2 06/10/24 19:00 100.0 80 28 174/42 (86) 100 212.0 06/10/24 18:00 Nasal Cannula* 2 28 Total Intake and Output 06/09/24 06/09/24 06/10/24 15:00 23:00 07:00 Intake Total 836.50 ml 517.50 ml 611 ml Output Total 1870 ml 1595 ml Balance 836.50 ml -1352.50 ml -984 ml medications Current Medications Medications Dose Ordered Sig/Nora Route Start Time Stop Time Status Last Admin Dose Admin Fentanyl Citrate 250 ml @ 2.5 mls/hr Q24H IV 05/16/24 14:00 06/07/24 03:26 20 MLS/HR Midazolam HCl 50 ml @ 1 mls/hr Q24H IV 05/16/24 21:00 06/07/24 03:24 9 MLS/HR Phenylephrine HCl 250 ml @ 30 mls/hr Q8H20M IV 05/16/24 21:15 05/17/24 06:03 30 MLS/HR Acetaminophen 650 mg Q6HPRN PRN HI 05/16/24 22:30 06/09/24 22:15 650 MG Pantoprazole Sodium 40 mg DAILY IV 05/17/24 10:00 06/10/24 10:02 40 MG Amino Acids 0 ml @ 0 mls/hr PER PHARMACY IV 05/17/24 08:30 Vancomycin HCl 0 ml @ 0 mls/hr UD IV 05/18/24 07:45 Cancel Norepinephrine Bitartrate 32 mg/ Sodium Chloride 250 ml @ 0.938 mls/ hr Q24H IV 05/18/24 16:00 06/04/24 12:06 0.938 MLS/HR Potassium Chloride 100 ml @ 50 mls/hr Q2H IV 05/22/24 12:30 05/22/24 16:29 Cancel Diagnostic Test (Pha) 1 strip Q6HR 05/24/24 12:00 06/10/24 17:32 1 STRIP Insulin Human Regular FOLLOW SLIDING SCALE Q6HR SC 05/24/24 12:00 06/10/24 17:37 2 UNITS Dextrose 50 ml UD IV 05/24/24 12:00 Enoxaparin Sodium 70 mg Q12HR SC 06/01/24 22:00 06/10/24 10:02 70 MG Labetalol HCl 10 mg Q2HPRN PRN IV 06/02/24 07:45 06/09/24 09:39 10 MG Micafungin Sodium 100 mg/Sodium Chloride 100 ml @ 100 mls/hr DAILY IV 06/03/24 10:00 06/10/24 10:02 100 MLS/HR Ceftriaxone Sodium/Dextrose 50 ml @ 50 mls/hr DAILY IV 06/07/24 10:00 06/10/24 10:29 50 MLS/HR Metronidazole 100 ml @ 100 mls/hr Q8HR IV 06/06/24 22:00 06/10/24 15:16 100 MLS/HR Metoprolol Tartrate 4 mg Q6HR IV 06/08/24 12:00 06/10/24 17:16 4 MG Hydralazine HCl 10 mg Q4HPRN PRN IV 06/08/24 12:45 Ondansetron HCl 4 mg Q4HPRN PRN IV 06/09/24 13:30 06/10/24 16:14 4 MG Fat Emulsion Intravenous 100 ml/Sodium Acetate 20 meq/Sodium Phosphate 20 meq/ Potassium Phosphate 44 meq/ Magnesium Sulfate 16 meq/ Multivitamins 10 ml/Chromium/ Copper/Manganese/ Zinc 1 ml/Insulin Human Regular 26 units/Amino Acids/ Dextrose/Purified Water 1,740.26 ml @ 76 mls/hr [id number] IV 06/10/24 20:00 06/11/24 19:59 Nicotine 1 patch DAILY TD 06/11/24 10:00 objective General: the patient is well developed and nourished. No acute distress. ABDOMEN: Status post surgery MENTAL STATUS: Subjective. CRANIAL NERVES: Pupils are round and reactive. normal external eye movement, normal sensation and motor examination in the lateral trigeminal nerve distribution, no facial weakness. SENSATION: Okay to pinprick and light touch MOTOR: Normal tone in the upper and lower extremity. Normal muscle bulk. No fasciculations. She can move the right arm and the legs REFLEXES: Deep tendon reflexes are symmetrical. No pathological reflexes. CEREBELLAR/COORDINATION: Deferred GAIT/STATION: deferred. laboratory and microbiology Laboratory Tests 06/10/24 03:27 Test 06/10/24 03:27 Range/Units Serum Glucose 155 H 74-106 mg/dL Problem List Pelvic prolapse, can count urethrovesical junction, surgery repair on 05/07/2024 (Robotic supracervical hysterectomy bilateral salpingo-oophorectomy colposcopic pexy cystocele repair urethral sling partial vaginectomy) Bowel obstruction with perforation, intra-abdominal abscess, dense at [place], status post surgery 05/16/2024 Sepsis/septic shock Metabolic encephalopathy Acute right MCA territory multiple strokes Left hemiparesis Right ICA occlusion Left ICA severe stenosis Anemia, with unstable H&H Status post oophorectomy, hysterectomy Anisocoria, uncertain clinical significance (small and equal pupils since 06/06/2024) DVT Assessment/Plan Monitoring Supportive treatment ICU care Stabilize vitals/pressor drip Respiratory support/vent management IV antibiotics Oxygen Lovenox 70 mg subQ b.i.d. TPN GI prophylaxis Further address bilateral carotid stenosis CLARA on discharge Surgery on case Okay to use Lovenox for DVT from neurologic point of view More recommendation per clinical course This medical document was created using an electronic medical record system with [employer] dictation system. Although this document has been carefully reviewed, there may still be some phonetic and typographical errors. These areas are purely typographical due to imperfections of the software programs, and do not reflect any compromise in the patient's medical care Prognosis poor Dietary Evaluation Review Comments: 1) Advance pt diet when medically feasible to a 2gmNa diet modified per [employer] recommendations 2) Continue current plan of care Expected Outcomes/Goals: 1) Pt diet to advance 2) F/U in 2-3 days Plan discussed with: Other BRYAN FLORES MD Jun 10, 2024 20:30
--- NOTE | 2024-06-10 22:13 | DVHPN2 ---
Consult Progress Note Date Seen: Jun 10, 2024 Subjective Patient reports: Feels better (no diarrhea or rash) Objective vital signs Vital Sign Date Time Temp Pulse Resp B/P (MAP) Pulse Ox O2 Delivery O2 Flow Rate FiO2 06/10/24 19:00 100.0 80 28 174/42 (86) 100 212.0 06/10/24 18:00 Nasal Cannula* 2 28 Total Intake and Output 06/09/24 06/09/24 06/10/24 15:00 23:00 07:00 Intake Total 836.50 ml 517.50 ml 611 ml Output Total 1870 ml 1595 ml Balance 836.50 ml -1352.50 ml -984 ml medications Current Medications Medications Dose Ordered Sig/Nora Route Start Time Stop Time Status Last Admin Dose Admin Fentanyl Citrate 250 ml @ 2.5 mls/hr Q24H IV 05/16/24 14:00 06/07/24 03:26 20 MLS/HR Midazolam HCl 50 ml @ 1 mls/hr Q24H IV 05/16/24 21:00 06/07/24 03:24 9 MLS/HR Phenylephrine HCl 250 ml @ 30 mls/hr Q8H20M IV 05/16/24 21:15 05/17/24 06:03 30 MLS/HR Acetaminophen 650 mg Q6HPRN PRN [place] 05/16/24 22:30 06/09/24 22:15 650 MG Pantoprazole Sodium 40 mg DAILY IV 05/17/24 10:00 06/10/24 10:02 40 MG Amino Acids 0 ml @ 0 mls/hr PER PHARMACY IV 05/17/24 08:30 Vancomycin HCl 0 ml @ 0 mls/hr UD IV 05/18/24 07:45 Cancel Norepinephrine Bitartrate 32 mg/ Sodium Chloride 250 ml @ 0.938 mls/ hr Q24H IV 05/18/24 16:00 06/04/24 12:06 0.938 MLS/HR Potassium Chloride 100 ml @ 50 mls/hr Q2H IV 05/22/24 12:30 05/22/24 16:29 Cancel Diagnostic Test (Pha) 1 strip Q6HR 05/24/24 12:00 06/10/24 17:32 1 STRIP Insulin Human Regular FOLLOW SLIDING SCALE Q6HR SC 05/24/24 12:00 06/10/24 17:37 2 UNITS Dextrose 50 ml UD IV 05/24/24 12:00 Enoxaparin Sodium 70 mg Q12HR SC 06/01/24 22:00 06/10/24 21:53 70 MG Labetalol HCl 10 mg Q2HPRN PRN IV 06/02/24 07:45 06/09/24 09:39 10 MG Micafungin Sodium 100 mg/Sodium Chloride 100 ml @ 100 mls/hr DAILY IV 06/03/24 10:00 06/10/24 10:02 100 MLS/HR Ceftriaxone Sodium/Dextrose 50 ml @ 50 mls/hr DAILY IV 06/07/24 10:00 06/10/24 10:29 50 MLS/HR Metronidazole 100 ml @ 100 mls/hr Q8HR IV 06/06/24 22:00 06/10/24 21:53 100 MLS/HR Metoprolol Tartrate 4 mg Q6HR IV 06/08/24 12:00 06/10/24 17:16 4 MG Hydralazine HCl 10 mg Q4HPRN PRN IV 06/08/24 12:45 Ondansetron HCl 4 mg Q4HPRN PRN IV 06/09/24 13:30 06/10/24 16:14 4 MG Fat Emulsion Intravenous 100 ml/Sodium Acetate 20 meq/Sodium Phosphate 20 meq/ Potassium Phosphate 44 meq/ Magnesium Sulfate 16 meq/ Multivitamins 10 ml/Chromium/ Copper/Manganese/ Zinc 1 ml/Insulin Human Regular 26 units/Amino Acids/ Dextrose/Purified Water 1,740.26 ml @ 76 mls/hr [id number] IV 06/10/24 20:00 06/11/24 19:59 06/10/24 20:00 76 MLS/HR Nicotine 1 patch DAILY TD 06/11/24 10:00 Physical Exam: - General: NAD - Neck: Supple. No masses. - HEENT: PERRL. Normal lids and conjunctiva. Moist mucous membranes. Oropharynx without lesions, exudates or excessive erythema. Normal appearance of the external aspects of the nose and ears. - Heart: Regular rhythm, normal rate. No murmur. No lower extremity edema. - Lungs: Normal respiratory effort. Clear to auscultation bilaterally. No wheezes. No crackles. - Abdomen: Soft. Non-tender. minimally distended. No masses or abdominal hernia. abdominal pain. increased drainage from surgical incision site at the inferior part - MSK: No digital cyanosis. Normal strength and tone in all 4 limbs. - Skin: Warm and dry, no rashes. - Neuro: Alert. No facial droop or slurred speech. EO movements intact. Sensation intact to soft touch in all 4 limbs. L sided weakness in UE and LE - Psych: Appropriate mood laboratory and microbiology Laboratory Tests 06/10/24 03:27 Test 06/10/24 03:27 Range/Units Serum Glucose 155 H 74-106 mg/dL Problem List/Assessment/Plan Problem List/Assessment/Plan Assessment and Plan: ID Problem List: 1. Small bowel obstruction with perforation 2. Septic shock 3. Stroke, right MCA territory 4. Hypertension 5. Anemia 6. Breast cancer 7. Bilateral mastectomy 8. Post-surgical complications (including ileostomy creation) 9. Fungal infection (yeast not Shawanda albicans) 10. Strep Viridans Group B infection Assessment: This is a 68-year-old female, with a significant past medical history of anemia, hypertension, breast cancer status post bilateral mastectomy, and a 50 pack-year smoking history (now quit), who was initially admitted for a robotic hysterectomy with bilateral salpingectomy, removal of a right ovarian mass, cystocele repair with urethral sling. Postoperatively, she developed hypertension and nausea, necessitating overnight admission. Post-admission, she endured a cerebrovascular accident primarily impacting the right MCA territory and contributing to left-sided weakness. Subsequent evaluations included MRI and CT head scans that confirmed multiple acute and subacute infarcts. Later complications included progression to an acute small bowel obstruction with perforation, leading to emergent exploratory laparotomy and subsequent ileostomy creation. Cultures from the surgical sites revealed a non-Shawanda albicans yeast and Strep Viridans Group B infection. The patient continues to require ICU support, primarily due to ongoing septic shock and the need for ventilatory assistance. Patient remains intubated with vasopressors being weaned off. Recent WBC count was 16.9 and hemoglobin levels have fluctuated, dropping as low as 5.9. She has been transitioned to a multi-antibiotic regimen including meropenem, vancomycin, and TPN for nutritional support. 06/04: hemaglobin of 6.9, suspect ongoing blood loss. Preliminary blood cultures are no growth for 48 hours as well as wound and urine cultures with no growth 06/05: hemaglobin of 8.4 after blood transfusion. Repeat cultures of the abdomen is showing no organisms 06/06: Ct pelvis abdomen shows faily stable appearing radio dense contrast in the central mid abdomen with adjacent surgical sutures. Small bowel anacitis. drainage catheter terminating in the pelvis and upper abdomen, stable appearing intraabdominal acities. extensive post-surgical changes that ate unchanged. a small to moderate right mid size plural effusion. Chest x-ray was done and shows no focal consolidation in the lungs 06/07: Chest x-ray done before the excavation, showing pulmonary disease 06/08: Abdominal drain fluids and patients surgical site has been cultured. Removal of catheter tip from yesterday shows staphylococcus and micrococcus , likely skin florac contamination . White count of 12.4 today and will continue to monitor Plan: 1. continue Ceftriaxone and flagyl, when patient can tolerate oral can switch to oral of these medications 2. Continue micafungin for fungal infection, may consider switching if yeast infection persists but will hold off for now 3. check blood cultures and check surgical site wound culture 4. Provide ICU support with ventilator for respiratory status and hemodynamic monitoring. 5. Supportive care measures for septic shock, including fluid resuscitation and vasopressor management. 6. Monitor and maintain drainage output. 7. Ensure adequate nutritional support through TPN. 8. Follow-up with surgical team for wound care and any necessary surgical interventions. 9. if hypotension persists, recommend repeating Ct of abdomen in a few days to rule out hematoma 10. monitor patients resopse to all regimens clinically when patient passes bedside swallow 11. monitor white count 12. follow up on cultures of incision site and drainage specimen Authorized and Performed by: mey ayala MD Total critical care time: Approximately 70 minutes Due to a high probability of clinically significant, life threatening deterioration, the patient required my highest level of preparedness to intervene emergently and I personally spent this critical care time directly and personally managing the patient. This critical care time included obtaining a history; examining the patient; pulse oximetry; ordering and review of studies; arranging urgent treatment with development of a management plan; evaluation of patient's response to treatment; frequent reassessment; and, discussions with other providers. This critical care time was performed to assess and manage the high probability of imminent, life-threatening deterioration that could result in multi-organ failure. It was exclusive of separately billable procedures and treating other patients and teaching time. Plan discussed with: Patient Dietary Evaluation Review Comments: 1) Advance pt diet when medically feasible to a 2gmNa diet modified per [employer] recommendations 2) Continue current plan of care Expected Outcomes/Goals: 1) Pt diet to advance 2) F/U in 2-3 days MEY AYALA MD Jun 10, 2024 22:13
--- NOTE | 2024-06-10 22:13 | DVHPN2 ---
Consult Progress Note Date Seen: Jun 09, 2024 Subjective Patient reports: Feels better (developing fevers, perhaps aspirating) Objective vital signs Vital Sign Date Time Temp Pulse Resp B/P (MAP) Pulse Ox O2 Delivery O2 Flow Rate FiO2 06/10/24 19:00 100.0 80 28 174/42 (86) 100 212.0 06/10/24 18:00 Nasal Cannula* 2 28 Total Intake and Output 06/09/24 06/09/24 06/10/24 15:00 23:00 07:00 Intake Total 836.50 ml 517.50 ml 611 ml Output Total 1870 ml 1595 ml Balance 836.50 ml -1352.50 ml -984 ml medications Current Medications Medications Dose Ordered Sig/Nora Route Start Time Stop Time Status Last Admin Dose Admin Fentanyl Citrate 250 ml @ 2.5 mls/hr Q24H IV 05/16/24 14:00 06/07/24 03:26 20 MLS/HR Midazolam HCl 50 ml @ 1 mls/hr Q24H IV 05/16/24 21:00 06/07/24 03:24 9 MLS/HR Phenylephrine HCl 250 ml @ 30 mls/hr Q8H20M IV 05/16/24 21:15 05/17/24 06:03 30 MLS/HR Acetaminophen 650 mg Q6HPRN PRN [place] 05/16/24 22:30 06/09/24 22:15 650 MG Pantoprazole Sodium 40 mg DAILY IV 05/17/24 10:00 06/10/24 10:02 40 MG Amino Acids 0 ml @ 0 mls/hr PER PHARMACY IV 05/17/24 08:30 Vancomycin HCl 0 ml @ 0 mls/hr UD IV 05/18/24 07:45 Cancel Norepinephrine Bitartrate 32 mg/ Sodium Chloride 250 ml @ 0.938 mls/ hr Q24H IV 05/18/24 16:00 06/04/24 12:06 0.938 MLS/HR Potassium Chloride 100 ml @ 50 mls/hr Q2H IV 05/22/24 12:30 05/22/24 16:29 Cancel Diagnostic Test (Pha) 1 strip Q6HR 05/24/24 12:00 06/10/24 17:32 1 STRIP Insulin Human Regular FOLLOW SLIDING SCALE Q6HR SC 05/24/24 12:00 06/10/24 17:37 2 UNITS Dextrose 50 ml UD IV 05/24/24 12:00 Enoxaparin Sodium 70 mg Q12HR SC 06/01/24 22:00 06/10/24 21:53 70 MG Labetalol HCl 10 mg Q2HPRN PRN IV 06/02/24 07:45 06/09/24 09:39 10 MG Micafungin Sodium 100 mg/Sodium Chloride 100 ml @ 100 mls/hr DAILY IV 06/03/24 10:00 06/10/24 10:02 100 MLS/HR Ceftriaxone Sodium/Dextrose 50 ml @ 50 mls/hr DAILY IV 06/07/24 10:00 06/10/24 10:29 50 MLS/HR Metronidazole 100 ml @ 100 mls/hr Q8HR IV 06/06/24 22:00 06/10/24 21:53 100 MLS/HR Metoprolol Tartrate 4 mg Q6HR IV 06/08/24 12:00 06/10/24 17:16 4 MG Hydralazine HCl 10 mg Q4HPRN PRN IV 06/08/24 12:45 Ondansetron HCl 4 mg Q4HPRN PRN IV 06/09/24 13:30 06/10/24 16:14 4 MG Fat Emulsion Intravenous 100 ml/Sodium Acetate 20 meq/Sodium Phosphate 20 meq/ Potassium Phosphate 44 meq/ Magnesium Sulfate 16 meq/ Multivitamins 10 ml/Chromium/ Copper/Manganese/ Zinc 1 ml/Insulin Human Regular 26 units/Amino Acids/ Dextrose/Purified Water 1,740.26 ml @ 76 mls/hr [id number] IV 06/10/24 20:00 06/11/24 19:59 06/10/24 20:00 76 MLS/HR Nicotine 1 patch DAILY TD 06/11/24 10:00 PHYSICAL EXAM: - GENERAL: Alert and oriented x 3. No acute distress. Well-nourished. solmnolent ? - EYES: EOMI. Anicteric. ?- HENT: Moist mucous membranes. No scleral icterus. No cervical lymphadenopathy. ?- LUNGS: Clear to auscultation bilaterally. No accessory muscle use.? - CARDIOVASCULAR: Regular rate and rhythm. No murmur. No JVD.? - ABDOMEN: Soft, non-tender and non-distended. No palpable masses.? - EXTREMITIES: No edema. Non-tender.?SKIN: No rashes or lesions. Warm. ? - NEUROLOGIC: No focal neurological deficits. CN II-XII grossly intact, but not individually tested.? - PSYCHIATRIC: Cooperative. Appropriate mood and affect. laboratory and microbiology Laboratory Tests 06/10/24 03:27 Test 06/10/24 03:27 Range/Units Serum Glucose 155 H 74-106 mg/dL Problem List/Assessment/Plan Problem List/Assessment/Plan Assessment and Plan: ID Problem List: 1. Small bowel obstruction with perforation 2. Septic shock 3. Stroke, right MCA territory 4. Hypertension 5. Anemia 6. Breast cancer 7. Bilateral mastectomy 8. Post-surgical complications (including ileostomy creation) 9. Fungal infection (yeast not Shawanda albicans) 10. Strep Viridans Group B infection Assessment: This is a 68-year-old female, with a significant past medical history of anemia, hypertension, breast cancer status post bilateral mastectomy, and a 50 pack-year smoking history (now quit), who was initially admitted for a robotic hysterectomy with bilateral salpingectomy, removal of a right ovarian mass, cystocele repair with urethral sling. Postoperatively, she developed hypertension and nausea, necessitating overnight admission. Post-admission, she endured a cerebrovascular accident primarily impacting the right MCA territory and contributing to left-sided weakness. Subsequent evaluations included MRI and CT head scans that confirmed multiple acute and subacute infarcts. Later complications included progression to an acute small bowel obstruction with perforation, leading to emergent exploratory laparotomy and subsequent ileostomy creation. Cultures from the surgical sites revealed a non-Shawanda albicans yeast and Strep Viridans Group B infection. The patient continues to require ICU support, primarily due to ongoing septic shock and the need for ventilatory assistance. Patient remains intubated with vasopressors being weaned off. Recent WBC count was 16.9 and hemoglobin levels have fluctuated, dropping as low as 5.9. She has been transitioned to a multi-antibiotic regimen including meropenem, vancomycin, and TPN for nutritional support. 06/04: hemaglobin of 6.9, suspect ongoing blood loss. Preliminary blood cultures are no growth for 48 hours as well as wound and urine cultures with no growth 06/05: hemaglobin of 8.4 after blood transfusion. Repeat cultures of the abdomen is showing no organisms 06/06: Ct pelvis abdomen shows faily stable appearing radio dense contrast in the central mid abdomen with adjacent surgical sutures. Small bowel anacitis. drainage catheter terminating in the pelvis and upper abdomen, stable appearing intraabdominal acities. extensive post-surgical changes that ate unchanged. a small to moderate right mid size plural effusion. Chest x-ray was done and shows no focal consolidation in the lungs 06/07: Chest x-ray done before the excavation, showing pulmonary disease 06/08: Abdominal drain fluids and patients surgical site has been cultured. Removal of catheter tip from yesterday shows staphylococcus and micrococcus , likely skin florac contamination . White count of 12.4 today and will continue to monitor Plan: 1. continue ceftriaxone and flagyl, when patient can tolerate oral can switch to oral of these medications 2. Continue micafungin for fungal infection, may consider switching if yeast infection persists but will hold off for now 3. check blood cultures and check surgical site wound culture 4. Provide ICU support with ventilator for respiratory status and hemodynamic monitoring. 5. Supportive care measures for septic shock, including fluid resuscitation and vasopressor management. 6. Monitor and maintain drainage output. 7. Ensure adequate nutritional support through TPN. 8. Follow-up with surgical team for wound care and any necessary surgical interventions. 10. monitor patients resopse to all regimens clinically when patient passes bedside swallow 11. monitor white count 12. follow up on cultures of incision site and drainage specimen Authorized and Performed by: mey ayala MD Total critical care time: Approximately 73 minutes Due to a high probability of clinically significant, life threatening deterioration, the patient required my highest level of preparedness to intervene emergently and I personally spent this critical care time directly and personally managing the patient. This critical care time included obtaining a history; examining the patient; pulse oximetry; ordering and review of studies; arranging urgent treatment with development of a management plan; evaluation of patient's response to treatment; frequent reassessment; and, discussions with other providers. This critical care time was performed to assess and manage the high probability of imminent, life-threatening deterioration that could result in multi-organ failure. It was exclusive of separately billable procedures and treating other patients and teaching time. Plan discussed with: Patient Dietary Evaluation Review Comments: 1) Advance pt diet when medically feasible to a 2gmNa diet modified per [employer] recommendations 2) Continue current plan of care Expected Outcomes/Goals: 1) Pt diet to advance 2) F/U in 2-3 days MEY AYALA MD Jun 10, 2024 22:13
--- NOTE | 2024-06-10 23:53 | DVHPN2 ---
Progress Note - Dictate Date Seen: Jun 10, 2024 Has the PT tested + for MRSA If YES, has PT been informed?: No Medical Necessity Reason Pt with a Central, PICC or Fol: Yes The following are medically ne: Muhammad Catheter Reason for muhammad catheter: Strict I&O Subjective Patient seen and examined at bedside. Remains on supplemental oxygen. Overnight events reviewed. vital signs Vital Sign Date Time Temp Pulse Resp B/P (MAP) Pulse Ox O2 Delivery O2 Flow Rate FiO2 06/10/24 19:00 100.0 80 28 174/42 (86) 100 212.0 06/10/24 18:00 Nasal Cannula* 2 28 Total Intake and Output 06/09/24 06/09/24 06/10/24 15:00 23:00 07:00 Intake Total 836.50 ml 517.50 ml 611 ml Output Total 1870 ml 1595 ml Balance 836.50 ml -1352.50 ml -984 ml medications Current Medications Medications Dose Ordered Sig/Nora Route Start Time Stop Time Status Last Admin Dose Admin Fentanyl Citrate 250 ml @ 2.5 mls/hr Q24H IV 05/16/24 14:00 06/07/24 03:26 20 MLS/HR Midazolam HCl 50 ml @ 1 mls/hr Q24H IV 05/16/24 21:00 06/07/24 03:24 9 MLS/HR Phenylephrine HCl 250 ml @ 30 mls/hr Q8H20M IV 05/16/24 21:15 05/17/24 06:03 30 MLS/HR Acetaminophen 650 mg Q6HPRN PRN [place] 05/16/24 22:30 06/09/24 22:15 650 MG Pantoprazole Sodium 40 mg DAILY IV 05/17/24 10:00 06/10/24 10:02 40 MG Amino Acids 0 ml @ 0 mls/hr PER PHARMACY IV 05/17/24 08:30 Vancomycin HCl 0 ml @ 0 mls/hr UD IV 05/18/24 07:45 Cancel Norepinephrine Bitartrate 32 mg/ Sodium Chloride 250 ml @ 0.938 mls/ hr Q24H IV 05/18/24 16:00 06/04/24 12:06 0.938 MLS/HR Potassium Chloride 100 ml @ 50 mls/hr Q2H IV 05/22/24 12:30 05/22/24 16:29 Cancel Diagnostic Test (Pha) 1 strip Q6HR 05/24/24 12:00 06/10/24 17:32 1 STRIP Insulin Human Regular FOLLOW SLIDING SCALE Q6HR SC 05/24/24 12:00 06/10/24 17:37 2 UNITS Dextrose 50 ml UD IV 05/24/24 12:00 Enoxaparin Sodium 70 mg Q12HR SC 06/01/24 22:00 06/10/24 21:53 70 MG Labetalol HCl 10 mg Q2HPRN PRN IV 06/02/24 07:45 06/09/24 09:39 10 MG Micafungin Sodium 100 mg/Sodium Chloride 100 ml @ 100 mls/hr DAILY IV 06/03/24 10:00 06/10/24 10:02 100 MLS/HR Ceftriaxone Sodium/Dextrose 50 ml @ 50 mls/hr DAILY IV 06/07/24 10:00 06/10/24 10:29 50 MLS/HR Metronidazole 100 ml @ 100 mls/hr Q8HR IV 06/06/24 22:00 06/10/24 21:53 100 MLS/HR Metoprolol Tartrate 4 mg Q6HR IV 06/08/24 12:00 06/10/24 17:16 4 MG Hydralazine HCl 10 mg Q4HPRN PRN IV 06/08/24 12:45 Ondansetron HCl 4 mg Q4HPRN PRN IV 06/09/24 13:30 06/10/24 16:14 4 MG Fat Emulsion Intravenous 100 ml/Sodium Acetate 20 meq/Sodium Phosphate 20 meq/ Potassium Phosphate 44 meq/ Magnesium Sulfate 16 meq/ Multivitamins 10 ml/Chromium/ Copper/Manganese/ Zinc 1 ml/Insulin Human Regular 26 units/Amino Acids/ Dextrose/Purified Water 1,740.26 ml @ 76 mls/hr [id number] IV 06/10/24 20:00 06/11/24 19:59 06/10/24 20:00 76 MLS/HR Nicotine 1 patch DAILY TD 06/11/24 10:00 objective Gen.: Patient lying in bed in no apparent distress. On supplemental oxygen. Head: Normocephalic, atraumatic. Eyes: EOMI/PERRLA. Ears: Normal hearing. Normal anatomy. Neck/trachea: Trachea midline, supple. Nose: Normal external anatomy. Mouth: Moist mucous membranes. Chest: Decreased air entry bilaterally. No wheezing or rhonchi. Cardiovascular: Positive S1, positive S2. Regular rate and rhythm. Abdomen: Positive bowel sounds in all 4 quadrants. Soft, non-tender, non- distended. : Deferred. Rectal: Deferred. Skin: Warm, dry. Intact. Extremities: 2+ radial pulses bilaterally. No lower extremity edema. Neuro: Awake, alert, oriented x3. No gross motor or sensory deficits. Cranial nerves II through XII intact. Gait not assessed. laboratory and microbiology Laboratory Tests 06/10/24 03:27 Test 06/10/24 03:27 Range/Units Serum Glucose 155 H 74-106 mg/dL Assessment/Plan Impression: Acute hypoxic respiratory failure Abdominal pain due to recent robotic surgery hysterectomy and salpingo- oophorectomy History of breast cancer with bilateral mastectomies History of bowel surgery and ileostomy Anemia due to hemorrhage on hemodilution Shock Chronic pain syndrome Anemia Atrial fibrillation with RVR Bowel perforation with repeat exploratory laparotomy with ileostomy creation Events: Remains on supplemental oxygen. On 2 liters/minute via nasal cannula Taper O2 as tolerated Incentive spirometry Continue abx Patient spiking fever Cultures show Enterococcus Surgery followup TPN for nutritional support NGT Off pressors, hemodynamically stable. Head of bed elevation Aspiration precautions. Upper extremity Doppler showed nonocclusive thrombus in the right axillary vein and brachial vein Currently on enoxaparin 70 mg subcutaneous Blood cultures revealed growth of yeast but not Shawanda albicans Currently on micafungin intravenous, Continue abx with ceftriaxone, metronidazole. ID recommendations appreciated Monitor renal function Monitor electrolytes, supplement as necessary Labs and imaging reviewed Rest of plan as outlined below. Plan: S/p extubation on 06/07 Supplemental oxygen. On 2 liters/minute via nasal cannula CXR, ABG reviewed. Pressors as necessary for hemodynamic support Titrate to keep mean arterial pressure greater than 65 mmHg. Continue antibiotics. F/u cultures. Monitor hemoglobin Transfuse if less than 7.0 grams/deciliter Monitor renal function due to Acute kidney injury. Monitor electrolytes. Supplement as necessary. Surgery recommendations appreciated. Nutritional support. On TPN Accucheks, ISS. GI prophylaxis - Pantoprazole 40 DVT prophylaxis- on enoxaparin 70 SC Condition: Critical Prognosis: Poor given multiple comorbidities. Rest of plan per hospitalist and other consultants. A total of 35 minutes of critical care time was spent reviewing the patient record, examining the patient, making a diagnostic and therapeutic plan, discussing this plan with the medical personnel, following up on diagnostic studies and following the patient for clinical stability excluding any and all procedures. At least 50% of this time was spent in direct, [id number] contact. Thank you Dr Reid for allowing me to participate in this patient's care. Further recommendations will depend on patient's clinical course. Please do not hesitate to contact me if you have any questions or concerns. This medical document was created using an electronic medical record system with [employer] dictation system. Although this document has been carefully reviewed, there may still be some phonetic and typographical errors. These areas are purely typographical due to imperfections of the software programs, and do not reflect any compromise in the patient's medical care. Dietary Evaluation Review Comments: 1) Advance pt diet when medically feasible to a 2gmNa diet modified per [employer] recommendations 2) Continue current plan of care Expected Outcomes/Goals: 1) Pt diet to advance 2) F/U in 2-3 days Plan discussed with: Other (YASH Serrano) Critical Care Time(min): 35 RG LEONE MD Jun 10, 2024 23:53
[2024-06-11] VITALS (60 sets, daily range): BP systolic 116–178; BP diastolic 23–79; PULSE 72–102; RESP 11–33; TEMP 98.2–100.8; O2SAT 98–100
[2024-06-11 04:00] LABS: Alanine Aminotransferase 16 U/L (7-40); Alkaline Phosphatase 150 U/L (46-116); Anion Gap 7 (5-15); Aspartate Aminotransferase 15 U/L (13-40); BUN/Creatinine Ratio 54.4 (10.0-20.0); Bilirubin, Total 0.8 mg/dL (0.2-1.0); Blood Urea Nitrogen 31 mg/dL (9-23); Calcium 9.3 mg/dL (8.7-10.4); Carbon Dioxide 23 mmol/L (20-31); Chloride 105 mmol/L (98-107); Glucose 142 mg/dL (74-106); Phosphorus 4.5 mg/dL (2.4-5.1); Potassium 3.7 mmol/L (3.5-5.1); Sodium 135 mmol/L (136-145); Total Protein 6.3 g/dL (5.7-8.2)
[2024-06-11 04:40] LABS: Mean Corpuscular Hemoglobin 29.1 pg (28.0-32.0); Red Cell Distribution Width 14.4 % (11.8-14.3)
[2024-06-11 04:43] LABS: Hematocrit 24.9 % (36.0-46.0); Hemoglobin 8.3 g/dL (12.2-16.2); Mean Corpuscular Hgb Conc. 33.5 g/dL (32.0-36.0); Mean Corpuscular Volume 86.9 fL (80.0-100.0); Platelet Count (auto) 294 10^3/uL (140-450); Red Blood Cells 2.87 10^6/uL (4.0-5.20); White Blood Cell 12.3 10^3/uL (4.4-10.8)
[2024-06-11 05:07] LABS: Band Neutrophils % (manual) 0; Basophils % (manual) 0 (0.0-2.0); Blast Cells 0; Metamyelocytes % 0; Promyelocytes % 0; Reactive Lymphocytes 0
--- NOTE | 2024-06-11 06:28 | DVHPN2 ---
Chief Complaints Patient reports: Feels better (as she tries toverbalize but nods her head appropriately), Other (Attempting to verbalize but I was unable to comprehend. She has a probe acting appropriately to commands regards to moving her extremities. I still could not get her to move her left upper extremity) Nursing reports: No new complaints (continued anemia), Other (Low-grade fever) Objective Vitals Vital Signs Date Time Temp Pulse Resp B/P (MAP) Pulse Ox O2 Delivery O2 Flow Rate FiO2 06/11/24 05:00 100.2 92 28 131/37 (68) 100 212.4 06/11/24 00:00 Nasal Cannula* 2 28 Medications Current Medications Medications (Trade) Dose Ordered Sig/Nora Route PRN Reason Start Time Stop Time Status Last Admin Fat Emulsion Intravenous 100 ml/Sodium Acetate 20 meq/Sodium Phosphate 20 meq/ Potassium Phosphate 44 meq/ Magnesium Sulfate 16 meq/ Multivitamins 10 ml/Chromium/ Copper/Manganese/ Zinc 1 ml/Insulin Human Regular 26 units/Amino Acids/ Dextrose/Purified Water 1,740.26 ml @ 76 mls/hr [id number] IV 06/10/24 20:00 06/11/24 19:59 06/10/24 20:00 Nicotine (Nicoderm 21MG/ 24HR) 1 patch DAILY TD 06/11/24 10:00 General: Normal, Severe distress (Flat affect) Head/Eyes: Normal ENT: Normal Neck: Normal Lungs: Normal Cardiovascular: Normal Abdominal: Normal (Wounds clean dry and intact iliostomy billous stool , drains one serosang , the other less billous impromved) Musculoskeletal: Normal Extremities: Normal, Other (Left upper extremity edema, mild lower ankle bilateral edema) Skin: Normal Neurological: Normal (appropriate grimous and sensation), Other (Weak and left lower extremity no movement left upper extremity) Studies Laboratory Tests 06/11/24 03:17 Test 06/11/24 03:17 Range/Units Serum Glucose 142 H 74-106 mg/dL Ass/Plan Assessment Overall improved; fever ; patient taking in oral diet although malnutrition secondary to prolonged intubation. Condition Guarded some Improvements, Malnutrition an issue sepsis Ileostomy functioning well, drains mod Anemia stable Hx colon CA Hx Breast CA Right MCA (left upper extremity paralysis) Plan Continue current management; will discuss fever with Dr Lake Gen Surgery ANDRES PAZ DO Jun 11, 2024 06:28
[2024-06-11 06:47] LABS: Eosinophils % (manual) 2 (0-7); Lymphocytes % (manual) 9 (10.0-50.0); Monocytes % (manual) 5 (0-12); Myelocytes % 1; Platelet Estimate Adequate
--- NOTE | 2024-06-11 09:03 | DVHPN2 ---
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 Dyspnea, No Edema, No Lt Headedness, No Other Respiratory: No Cough, No Dry, No Shortness of breath, No SOB with excertion, No Wheezing, No Hemoptysis, No Pleuritic Pain, No Sputum, No Other Gastrointestinal: Nausea Genitourinary: No Dysuria, No Frequency, No Incontinence, No Hematuria, No Retention, No Other Musculoskeletal: No other, No neck pain, No shoulder pain, No arm pain, No back pain, No hand pain, No leg pain, No foot pain Skin: No Rash, No Lesions, No Jaundice, No Bruising, No Other Objective Vitals Vital Signs Date Time Temp Pulse Resp B/P (MAP) Pulse Ox O2 Delivery O2 Flow Rate FiO2 06/11/24 06:30 100.0 86 26 153/47 (82) 100 212.0 06/11/24 06:00 Nasal Cannula* 2 28 Intake/Output Intake and Output 06/11/24 07:00 Intake Total 1886 ml Output Total 1940 ml Balance -54 ml IV Total 1886 ml Output Urine Total 1200 ml Gastric Drainage Total 650 ml Drainage Total 20 ml Other 70 ml # Bowel Movements 1 General Appearance: moderate distress, Other (Intubated and sedated) HEENT: Atraumatic, PERRLA, Other (Pupils equal, 4 mm, reactive to light to 3 mm) Lungs: Clear to auscultation, Normal air movement, Other (Mechanical ventilation) Cardiovascular: Regular rate, Normal S1, Normal S2 Abdomen: Other (Ileostomy with drainage. EVARISTO to right lower quadrant with thick serosanguineous secretions.) Musculoskeletal: Other (Unable to assess) Extremities: No edema, Other (Poor cap refill to left lower extremity with some cyanosis noted) Neuro: Other (Left arm weakness including enrollment representative and proximal muscles) Skin: Dry, Intact, Other (Surgical incision dry and intact) Psych/Mental Status: Mental status NL, Mood NL Medications Current Medications Medications Dose Ordered Sig/Nora Route Start Time Stop Time Status Last Admin Dose Admin Fentanyl Citrate 250 ml @ 2.5 mls/hr Q24H IV 05/16/24 14:00 06/07/24 03:26 20 MLS/HR Midazolam HCl 50 ml @ 1 mls/hr Q24H IV 05/16/24 21:00 06/07/24 03:24 9 MLS/HR Phenylephrine HCl 250 ml @ 30 mls/hr Q8H20M IV 05/16/24 21:15 05/17/24 06:03 30 MLS/HR Acetaminophen 650 mg Q6HPRN PRN AL 05/16/24 22:30 06/09/24 22:15 650 MG Pantoprazole Sodium 40 mg DAILY IV 05/17/24 10:00 06/10/24 10:02 40 MG Amino Acids 0 ml @ 0 mls/hr PER PHARMACY IV 05/17/24 08:30 Vancomycin HCl 0 ml @ 0 mls/hr UD IV 05/18/24 07:45 Cancel Norepinephrine Bitartrate 32 mg/ Sodium Chloride 250 ml @ 0.938 mls/ hr Q24H IV 05/18/24 16:00 06/04/24 12:06 0.938 MLS/HR Potassium Chloride 100 ml @ 50 mls/hr Q2H IV 05/22/24 12:30 05/22/24 16:29 Cancel Diagnostic Test (Pha) 1 strip Q6HR 05/24/24 12:00 06/11/24 06:25 1 STRIP Insulin Human Regular FOLLOW SLIDING SCALE Q6HR SC 05/24/24 12:00 06/11/24 06:24 2 UNITS Dextrose 50 ml UD IV 05/24/24 12:00 Enoxaparin Sodium 70 mg Q12HR SC 06/01/24 22:00 06/10/24 21:53 70 MG Labetalol HCl 10 mg Q2HPRN PRN IV 06/02/24 07:45 06/09/24 09:39 10 MG Micafungin Sodium 100 mg/Sodium Chloride 100 ml @ 100 mls/hr DAILY IV 06/03/24 10:00 06/10/24 10:02 100 MLS/HR Ceftriaxone Sodium/Dextrose 50 ml @ 50 mls/hr DAILY IV 06/07/24 10:00 06/10/24 10:29 50 MLS/HR Metronidazole 100 ml @ 100 mls/hr Q8HR IV 06/06/24 22:00 06/11/24 06:20 100 MLS/HR Metoprolol Tartrate 4 mg Q6HR IV 06/08/24 12:00 06/11/24 06:20 4 MG Hydralazine HCl 10 mg Q4HPRN PRN IV 06/08/24 12:45 Ondansetron HCl 4 mg Q4HPRN PRN IV 06/09/24 13:30 06/10/24 16:14 4 MG Fat Emulsion Intravenous 100 ml/Sodium Acetate 20 meq/Sodium Phosphate 20 meq/ Potassium Phosphate 44 meq/ Magnesium Sulfate 16 meq/ Multivitamins 10 ml/Chromium/ Copper/Manganese/ Zinc 1 ml/Insulin Human Regular 26 units/Amino Acids/ Dextrose/Purified Water 1,740.26 ml @ 76 mls/hr [id number] IV 06/10/24 20:00 06/11/24 19:59 06/10/24 20:00 76 MLS/HR Nicotine 1 patch DAILY TD 06/11/24 10:00 Laboratory Results Laboratory Tests 06/11/24 03:17 Chemistry Test 06/11/24 03:17 Albumin 3.0 g/dL (3.2-4.8) L Calcium Level 9.3 mg/dL (8.7-10.4) Magnesium Level 2.0 mg/dL (1.6-2.6) Phosphorus Level 4.5 mg/dL (2.4-5.1) Total Protein 6.3 g/dL (5.7-8.2) LFT Test 06/11/24 03:17 Alanine Aminotransferase (ALT) 16 U/L (7-40) Alkaline Phosphatase 150 U/L (46-116) H Aspartate Amino Transferase (AST) 15 U/L (13-40) Total Bilirubin 0.8 mg/dL (0.2-1.0) Urinalysis Test 05/11/24 16:18 Urine Color Yellow (Yellow) Urine Clarity Clear (Clear) Urine pH 6.0 (5.0-9.0) Urine Specific [place] 1.020 (1.001-1.035) Urine Protein 1+ (Negative) H Urine Ketones 4+ (Negative) H Urine Blood Trace /uL (Negative) H Urine Nitrite Negative (Negative) Urine Bilirubin Negative (Negative) Urine Urobilinogen Normal mg/dL (Negative) Urine Leukocyte Esterase Negative /uL (Negative) Urine RBC 2 /hpf (0 - 4) Urine WBC 2 /hpf (0 - 5) Urine Squamous Epithelial Cells Few /hpf (<5) Urine Bacteria None seen /hpf (None Seen) Urine Mucus Few (None Seen) Urine Glucose Normal mg/dL (Normal) Microbiology Microbiology Date/Time Source Procedure Growth Status 06/07/24 03:00 Abdomen Gram Stain - Final Resulted 06/07/24 03:00 Abdomen Wound Culture - Preliminary Resulted 06/06/24 16:07 Blood Blood Culture - Preliminary NO GROWTH AFTER 72 HOURS OF INCUBATION. Resulted 06/06/24 14:23 Urine - [place] Urine Culture - Final Complete 05/16/24 14:20 Sputum Gram Stain - Final Complete 05/16/24 14:20 Respiratory Culture - Final Yeast, not [place] albicans Complete Assessment/Plan Assessment/Plan Robotic surgery hysterectomy and salpingo-oophorectomy complicated by Acute CVA Acute CVA w LUE hemiparesis Bowel perforation with repeat exploratory laparotomy with ileostomy creation History of breast cancer with bilateral mastectomies Afib RVR Acute hypoxic respiratory failure Mechanical intubation Exploratory laparotomy, drainage of intraabdominal abscess, thorough peritoneal lavage with reinforcement of the anastomotic location of the previous anastomosis as well as a diverting loop ileostomy on 05/24/24 Anemia Right upper extremity DVT Plan Mechanical ventilation TPN IV antibiotics: Vancomycin + Meropenem No vasopressors Sedation prn GI Prophylaxis: Protonix Transfuse blood prn 05/29/24: Transfuse 1 unit RBCs for Hb 5.9 Lasix 20 mg IV x1 Check Hb after transfusion Off pressors Antibiotics: Meropenem, Vanco, Micafungin Amiodarone IV Taper sedation down as tolerated CXR: Clear TPN Protonix 05/30/24: Discussed with Dr. Fritz Lake Will do CT ABD pelvis to follow up on abscess IV antibiotics Taper sedation down C-PAP? per Dr. Poon 05/31/24: CT abdomen showed no fluid collection IV antibiotics: Meropenem, Vancomycin & Micafungin Amiodarone Dr. Fritz Lake recommended to continue medical treatment, no surgical intervention Sedation as needed TPN 06/01/2024: Start Lovenox 70 mg subQ q.[address] Lake and Neurology IV antibiotics meropenem and vancomycin Micafungin TPN Tapered down sedation as tolerated 06/02/24: Fever Yeast in cultures: Micafungin IV antibiotics: Meropenem & Vanco TPN RUE DVT: Lovenox Normocytic anemia 7.9 Consult ID [place] Cultures Afib: Amiodarone drip Discussed with her sister over the phone 06/03/2024: IV antibiotics: Meropenem and vancomycin IV antifungal: Micafungin TPN Amiodarone IV Dr. Fritz Lake for surgery is on the case 06/04/24: Abdominal infection: IV antibiotics: Meropenem, Vanco and Micafungin TPN Amiodarone Surgery on case: Will discuss with Dr. Fritz Lake regarding tracheostomy ID consult is pending Discussed with sister over the phone, family is agreeable with the trach Anemia: Transfuse one unit RBCs 06/05/24: Hypokalemia: Replace IV antibiotics: Meropenem and Vanco IV antifungals: Micafungin TPN Amiodarone Discussed with Dr. Lake regarding tracheostomy Remove central line PICC line 06/06/24: Repeat CT abdomen & pelvis Discussed with her sister Lianet over the phone Discussed the advance directives She stated that patient as stated before that she wants to be treated but only if she becomes a vegetable then she would stop the treatment The family for now would like to continue treatment We will get a new blood and urine and sputum cultures Continue IV antibiotics and IV antifungal Dr. Lake is evaluating the patient for possible tracheostomy in the next few days 06/07/2024: Off sedation CPAP trial TPN Amiodarone IV antibiotics and antifungals Full code 06/08/24: Afib RVR, start Metoprolol IV scheduled dose Amiodarone is off HTN: Hydralazine Rocephin Flagyl Micafungin TPN NGT to suction Lovenox Hydralazine 06/09/24: Continue current Tx IV antibiotics Metoprolol IV NPO Tube suction 06/11/2024: Patient is stable Fever: Continue IV antibiotics : Rocephin, Flagyl, micafungin Abdominal infection Acute CVA with left sided weakness Atrial fibrillation Hypertension TPN Lovenox IV metoprolol IV Protonix Discussed with her sister over the phone Nicotine patch Plan discussed with: Patient, Other Date of Service: Jun 11, 2024 Billing Provider: BARI MOORE MD Common Visit Codes: NOT BILLABLE BARI MOORE MD Jun 11, 2024 09:03
--- NOTE | 2024-06-11 10:30 | DVHPN2 ---
Progress Note - Dictate Date Seen: Jun 11, 2024 Has the PT tested + for MRSA If YES, has PT been informed?: No Medical Necessity Reason Pt with a Central, PICC or Fol: Yes The following are medically ne: Muhammad Catheter Reason for muhammad catheter: Strict I&O Subjective Ms. Barrera is a 68 years old right-handed female with a history of hypertension, anemia, breast cancer, she was admitted to the [facility] on 05/07/2024 for scheduled hysterectomy and oophorectomy. Post surgically, she woke up with left-sided weakness, and MRI showed multiple stroke in the right MCA territory. During the hospital stay, she developed fall perforation, and she went through abdominal surgery on 05/16/2024 Because of ongoing intraperitoneal sepsis/peritonitis, the patient went through exploratory laparotomy on 05/24/2024 I have seen and examined the patient in the ICU, I have discussed with her nurse. She is awake, oriented to person, place, she knows the year, socially appropriate, more energized She moves right arm and both legs She keeps spiking temperatures, she has leukocytosis The drainage from stomach looks cloudy CBC, 05/16/2024: Metabolic acidosis, 05/17/2024: Metabolic acidosis, 05/18/2024: Metabolic acidosis URINALYSIS, 05/11/2024: WBC: 2, URINE LEUKOCYTE ESTERASE: NEGATIVE WBC/HB/PLT/MCV, 05/04: 5.1/10.7/119/98.3, 05/17/2024: 20.4/8.5/205/86.9 05/19/2024: 12.2/11.1/125/86.2, 05/20/2024: 8.1/10.5/113/86.1, 05/21/2024: 6.6/10.5/106/86.5, 05/26/2024: 9.6/9.2/184/93.8, 05/28/2024: 7.5/7/223/89.6, 05/29/24: 6.8/5.9/251/88.1, 05/30/2024: 7.4/7.7/268/86.6, 06/10/2024: 12.1/9.3/338/88.2 PT/INR/FTT, 05/16/2024: 17.4/1.71/34.2 K, 05/09/2024: 3.9, 05/10/24:3.1, 05/12/2024: 3.4, 05/16/2024: 2.8 Lactic acid, 05/15/2024: 1.6, 05/16/2024: 1.5 HCO3, 05/23/2024: 35 Bun.Cr, 05/23/2024: 37/0.75 LIVER FUNCTION TESTS, 05/12/2024: UNREMARKABLE, 05/16/2024: Unremarkable TBI/AST/ALT/AP, 05/18/2024: 1.2//47, 05/19/2024: 3.1/04/23/2067, 05/23/2024: 3.1/48/35/170, 05/29/2024: 2.3/29/21/117 TG/HDL/LDL/HDL, 05/12/2024: 196/134/75/23 TSH, 05/12/2024: 2.01 Echocardiogram 05/14/2024: lvef 65% by visual estimate mild mitral regurg RV enlarged mild left atrium enlarged mild Extremity venous study, 06/01/2024: No left upper extremity DVT. Right internal jugular vein and subclavian vein are not visualized secondary to patient positioning. Nonocclusive thrombus is seen in the right axillary vein and brachial vein. Occlusive thrombus is present at the right cephalic vein. Carotid Doppler, 05/11/2024: 1. Occlusion of the right proximal ICA. 2. Greater than 50% stenosis of the right proximal ECA. 3. Greater than 50% stenosis of the left proximal ICA CT head, 05/11/2024: 1. Chronic lacunar infarct in right centrum semiovale. 2. Chronic periventricular ischemic changes. 3. Cerebral and cerebellar atrophy, likely age-related. 4. Advised further evaluation with MRI brain without contrast if clinically indicated CT abdomen/pelvis, 05/15/2024: Small bowel obstruction with evidence of perforation including free intraperitoneal fluid and air. Extensive subcutaneous emphysema likely secondary to bowel perforation CT abdomen/pelvis, 05/16/2024: 1. Sequelae of recent postsurgical changes as described above. Correlate with surgical history. 2. Pneumoperitoneum and free fluid in the abdomen and pelvis. 3. Large collection containing fluid and gas, predominantly in the right hemiabdomen. There is GI contrast extending into this collection from an adjacent small bowel loop. There is a component of this collection extending adjacent to the anterior superior aspect of the liver. 4. Moderate right hydronephrosis and hydroureter. The distal right ureter appears to be compressed by the large fluid collection in the right hemiabdomen. No obstructing calculus. 5. Dilated small bowel loops in the left hemiabdomen with suspected small-bowel obstruction. 6. Prominent subcutaneous edema in the ventral abdominal wall and extending caudally into the inguinal regions bilaterally, peroneal region, and anterior aspect of the left thigh. 7. Small bilateral pleural effusions with overlying atelectasis. 8. Additional findings as detailed above. CT abdomen, 05/23/2024: Postsurgical changes of the ventral abdomen with interval improvement in the diffuse soft tissue edema and ventral abdominal, pelvis and upper thigh subcutaneous emphysema. Interval significant decrease in size of the loculated collection within the right hemiabdomen and pelvis with small residual. Interval placement of drainage catheters terminating over the left upper abdominal quadrant and left hemipelvis as detailed above. Interval development of small to moderate ascites. Wall thickening of fluid-filled nondistended small bowel loops of the anterior mid to lower abdomen which may be from the surrounding ascites versus enteritis. Additional findings as above CT abdomen staff pelvis, 05/30/2024: 1. Radiodense contrast in the mid abdomen associated with surgical sutures. It is unclear whether this is in bowel or represents a bowel leak. Clinical correlation and continued follow-up is recommended. 2. Right pelvic, anterior abdominal wall and left abdomen drainage catheters in place. No definite abscess identified. 3. Extensive post postsurgical changes of the bowel. 4. Small amount of abdominal and pelvic ascities. 5. Small to moderate right pleural effusion. CTA neck, head, 05/14/24: 1. Complete occlusion of the right cervical internal carotid artery. There may be trickle flow in distal right cervical ICA. 2. Poor flow in the right intracranial ICA likely retrograde perfusion through the contralateral left side posterior circulation through the communicating arteries. 3. High-grade stenosis at the left carotid bulb with at least 70-80% stenosis. Moderate short-segment stenosis in the left proximal ICA with at least 60% stenosis. MRI HEAD, 05/11/2024: 1. Multiple foci of restricted diffusion in the right centrum semiovale and along the right superior frontal lobe compatible with acute to subacute infarcts. There is no evidence of acute hemorrhage or significant surrounding edema. 2. Absence of flow void in the intracranial portions of the right internal carotid artery which is likely occluded. vital signs Vital Sign Date Time Temp Pulse Resp B/P (MAP) Pulse Ox O2 Delivery O2 Flow Rate FiO2 06/11/24 06:30 100.0 86 26 153/47 (82) 100 212.0 06/11/24 06:00 Nasal Cannula* 2 28 Total Intake and Output 06/10/24 06/10/24 06/11/24 15:00 23:00 07:00 Intake Total 734 ml 620 ml 532 ml Output Total 990 ml 950 ml Balance 734 ml -370 ml -418 ml medications Current Medications Medications Dose Ordered Sig/Nora Route Start Time Stop Time Status Last Admin Dose Admin Acetaminophen 650 mg Q6HPRN PRN ME 05/16/24 22:30 06/09/24 22:15 650 MG Pantoprazole Sodium 40 mg DAILY IV 05/17/24 10:00 06/10/24 10:02 40 MG Amino Acids 0 ml @ 0 mls/hr PER PHARMACY IV 05/17/24 08:30 Vancomycin HCl 0 ml @ 0 mls/hr UD IV 05/18/24 07:45 Cancel Norepinephrine Bitartrate 32 mg/ Sodium Chloride 250 ml @ 0.938 mls/ hr Q24H IV 05/18/24 16:00 06/04/24 12:06 0.938 MLS/HR Potassium Chloride 100 ml @ 50 mls/hr Q2H IV 05/22/24 12:30 05/22/24 16:29 Cancel Diagnostic Test (Pha) 1 strip Q6HR 05/24/24 12:00 06/11/24 06:25 1 STRIP Insulin Human Regular FOLLOW SLIDING SCALE Q6HR SC 05/24/24 12:00 06/11/24 06:24 2 UNITS Dextrose 50 ml UD IV 05/24/24 12:00 Enoxaparin Sodium 70 mg Q12HR SC 06/01/24 22:00 06/10/24 21:53 70 MG Labetalol HCl 10 mg Q2HPRN PRN IV 06/02/24 07:45 06/09/24 09:39 10 MG Micafungin Sodium 100 mg/Sodium Chloride 100 ml @ 100 mls/hr DAILY IV 06/03/24 10:00 06/10/24 10:02 100 MLS/HR Ceftriaxone Sodium/Dextrose 50 ml @ 50 mls/hr DAILY IV 06/07/24 10:00 06/10/24 10:29 50 MLS/HR Metronidazole 100 ml @ 100 mls/hr Q8HR IV 06/06/24 22:00 06/11/24 06:20 100 MLS/HR Metoprolol Tartrate 4 mg Q6HR IV 06/08/24 12:00 06/11/24 06:20 4 MG Hydralazine HCl 10 mg Q4HPRN PRN IV 06/08/24 12:45 Ondansetron HCl 4 mg Q4HPRN PRN IV 06/09/24 13:30 06/10/24 16:14 4 MG Fat Emulsion Intravenous 100 ml/Sodium Acetate 20 meq/Sodium Phosphate 20 meq/ Potassium Phosphate 44 meq/ Magnesium Sulfate 16 meq/ Multivitamins 10 ml/Chromium/ Copper/Manganese/ Zinc 1 ml/Insulin Human Regular 26 units/Amino Acids/ Dextrose/Purified Water 1,740.26 ml @ 76 mls/hr [id number] IV 06/10/24 20:00 06/11/24 19:59 06/10/24 20:00 76 MLS/HR Nicotine 1 patch DAILY TD 06/11/24 10:00 objective General: the patient is well developed and nourished. No acute distress. ABDOMEN: Status post surgery MENTAL STATUS: Subjective. CRANIAL NERVES: Pupils are round and reactive. normal external eye movement, normal sensation and motor examination in the lateral trigeminal nerve distribution, no facial weakness. SENSATION: Okay to pinprick and light touch MOTOR: Normal tone in the upper and lower extremity. Normal muscle bulk. No fasciculations. She can move the right arm and the legs REFLEXES: Deep tendon reflexes are symmetrical. No pathological reflexes. CEREBELLAR/COORDINATION: Deferred GAIT/STATION: deferred. laboratory and microbiology Laboratory Tests 06/11/24 03:17 Test 06/11/24 03:17 Range/Units Serum Glucose 142 H 74-106 mg/dL Problem List Pelvic prolapse, can count urethrovesical junction, surgery repair on 05/07/2024 (Robotic supracervical hysterectomy bilateral salpingo-oophorectomy colposcopic pexy cystocele repair urethral sling partial vaginectomy) Bowel obstruction with perforation, intra-abdominal abscess, dense at [place], status post surgery 05/16/2024 Sepsis/septic shock Metabolic encephalopathy Acute right MCA territory multiple strokes Left hemiparesis Right ICA occlusion Left ICA severe stenosis Anemia, with unstable H&H Status post oophorectomy, hysterectomy Anisocoria, uncertain clinical significance (small and equal pupils since 06/06/2024) DVT Assessment/Plan Monitoring Supportive treatment ICU care Stabilize vitals/pressor drip Respiratory support/vent management IV antibiotics Oxygen Lovenox 70 mg subQ b.i.d. TPN GI prophylaxis Further address bilateral carotid stenosis CLARA on discharge Surgery on case Okay to use Lovenox for DVT from neurologic point of view More recommendation per clinical course This medical document was created using an electronic medical record system with [employer] dictation system. Although this document has been carefully reviewed, there may still be some phonetic and typographical errors. These areas are purely typographical due to imperfections of the software programs, and do not reflect any compromise in the patient's medical care Prognosis poor Dietary Evaluation Review Comments: 1) Advance pt diet when medically feasible to a 2gmNa diet modified per TECHNICAL TRAINING SPECIALIST recommendations 2) Continue current plan of care Expected Outcomes/Goals: 1) Pt diet to advance 2) F/U in 2-3 days Plan discussed with: Other BRYAN FLORES MD Jun 11, 2024 10:30
[2024-06-11] MEDS: NICOTINE 21MG/24 HR TOPICAL PATCH TD SCH (10:43)
[2024-06-11] MEDS: FLUTICASONE PROP NASAL SPR 0.05 % (50MCG) 16GM EACHNOSTRI ONE (19:02)
[2024-06-11] MEDS: TPN PER PHARMACY IV NR (20:10)
--- NOTE | 2024-06-11 21:27 | DVHPN2 ---
Progress Note - Dictate Date Seen: Jun 11, 2024 Has the PT tested + for MRSA If YES, has PT been informed?: No Medical Necessity Reason Pt with a Central, PICC or Fol: Yes The following are medically ne: Muhammad Catheter Reason for muhammad catheter: Strict I&O Subjective Patient seen and examined at bedside. Remains on supplemental oxygen. Overnight events reviewed. vital signs Vital Sign Date Time Temp Pulse Resp B/P (MAP) Pulse Ox O2 Delivery O2 Flow Rate FiO2 06/11/24 19:30 100.4 85 26 131/33 (65) 100 212.7 06/11/24 18:00 Room Air* 0 21 Total Intake and Output 06/10/24 06/10/24 06/11/24 15:00 23:00 07:00 Intake Total 734 ml 620 ml 608 ml Output Total 990 ml 950 ml Balance 734 ml -370 ml -342 ml medications Current Medications Medications Dose Ordered Sig/Nora Route Start Time Stop Time Status Last Admin Dose Admin Acetaminophen 650 mg Q6HPRN PRN HI 05/16/24 22:30 06/09/24 22:15 650 MG Pantoprazole Sodium 40 mg DAILY IV 05/17/24 10:00 06/11/24 10:43 40 MG Amino Acids 0 ml @ 0 mls/hr PER PHARMACY IV 05/17/24 08:30 Vancomycin HCl 0 ml @ 0 mls/hr UD IV 05/18/24 07:45 Cancel Norepinephrine Bitartrate 32 mg/ Sodium Chloride 250 ml @ 0.938 mls/ hr Q24H IV 05/18/24 16:00 06/04/24 12:06 0.938 MLS/HR Potassium Chloride 100 ml @ 50 mls/hr Q2H IV 05/22/24 12:30 05/22/24 16:29 Cancel Diagnostic Test (Pha) 1 strip Q6HR 05/24/24 12:00 06/11/24 18:04 1 STRIP Insulin Human Regular FOLLOW SLIDING SCALE Q6HR SC 05/24/24 12:00 06/11/24 18:13 2 UNITS Dextrose 50 ml UD IV 05/24/24 12:00 Enoxaparin Sodium 70 mg Q12HR SC 06/01/24 22:00 06/11/24 10:44 70 MG Labetalol HCl 10 mg Q2HPRN PRN IV 06/02/24 07:45 06/09/24 09:39 10 MG Micafungin Sodium 100 mg/Sodium Chloride 100 ml @ 100 mls/hr DAILY IV 06/03/24 10:00 06/11/24 10:45 100 MLS/HR Ceftriaxone Sodium/Dextrose 50 ml @ 50 mls/hr DAILY IV 06/07/24 10:00 06/11/24 10:45 50 MLS/HR Metronidazole 100 ml @ 100 mls/hr Q8HR IV 06/06/24 22:00 06/11/24 14:41 100 MLS/HR Metoprolol Tartrate 4 mg Q6HR IV 06/08/24 12:00 06/11/24 18:08 4 MG Hydralazine HCl 10 mg Q4HPRN PRN IV 06/08/24 12:45 Ondansetron HCl 4 mg Q4HPRN PRN IV 06/09/24 13:30 06/10/24 16:14 4 MG Nicotine 1 patch DAILY TD 06/11/24 10:00 06/11/24 10:43 1 PATCH Fat Emulsion Intravenous 100 ml/Sodium Acetate 40 meq/Sodium Phosphate 10 meq/ Potassium Chloride 40 meq/ Potassium Phosphate 22 meq/ Magnesium Sulfate 18 meq/ Multivitamins 10 ml/Chromium/ Copper/Manganese/ Zinc 1 ml/Insulin Human Regular 26 units/Amino Acids/ Dextrose/Purified Water 1,763.26 ml @ 73 mls/hr [id number] IV 06/11/24 20:00 06/12/24 19:59 06/11/24 20:10 73 MLS/HR Fluticasone Propionate 50 mcg Q12HR EACHNOSTRI 06/11/24 22:00 objective Gen.: Patient lying in bed in no apparent distress. On supplemental oxygen. Head: Normocephalic, atraumatic. Eyes: EOMI/PERRLA. Ears: Normal hearing. Normal anatomy. Neck/trachea: Trachea midline, supple. Nose: Normal external anatomy. Mouth: Moist mucous membranes. Chest: Decreased air entry bilaterally. No wheezing or rhonchi. Cardiovascular: Positive S1, positive S2. Regular rate and rhythm. Abdomen: Positive bowel sounds in all 4 quadrants. Soft, non-tender, non- distended. : Deferred. Rectal: Deferred. Skin: Warm, dry. Intact. Extremities: 2+ radial pulses bilaterally. No lower extremity edema. Neuro: Awake, alert, oriented x3. No gross motor or sensory deficits. Cranial nerves II through XII intact. Gait not assessed. laboratory and microbiology Laboratory Tests 06/11/24 03:17 Test 06/11/24 03:17 Range/Units Serum Glucose 142 H 74-106 mg/dL Assessment/Plan Impression: Acute hypoxic respiratory failure Abdominal pain due to recent robotic surgery hysterectomy and salpingo- oophorectomy History of breast cancer with bilateral mastectomies History of bowel surgery and ileostomy Anemia due to hemorrhage on hemodilution Shock Chronic pain syndrome Anemia Atrial fibrillation with RVR Bowel perforation with repeat exploratory laparotomy with ileostomy creation Events: Remains on supplemental oxygen. On 2 liters/minute via nasal cannula Taper O2 as tolerated Incentive spirometry Continue abx with ceftriaxone, metronidazole. Nasal spray ID recommendations appreciated. Surgery recommendations appreciated. TPN for nutritional support NGT Off pressors, hemodynamically stable. Head of bed elevation Aspiration precautions. Upper extremity Doppler showed nonocclusive thrombus in the right axillary vein and brachial vein Currently on enoxaparin 70 mg subcutaneous Blood cultures revealed growth of yeast but not Shawanda albicans Currently on micafungin intravenous, Monitor renal function Monitor electrolytes, supplement as necessary Labs and imaging reviewed Rest of plan as outlined below. Plan: S/p extubation on 06/07 Supplemental oxygen. On 2 liters/minute via nasal cannula CXR, ABG reviewed. Pressors as necessary for hemodynamic support Titrate to keep mean arterial pressure greater than 65 mmHg. Continue antibiotics. F/u cultures. Monitor hemoglobin Transfuse if less than 7.0 grams/deciliter Monitor renal function due to Acute kidney injury. Monitor electrolytes. Supplement as necessary. Surgery recommendations appreciated. Nutritional support. On TPN Accucheks, ISS. GI prophylaxis - Pantoprazole 40 DVT prophylaxis- on enoxaparin 70 SC Condition: Critical Prognosis: Poor given multiple comorbidities. Rest of plan per hospitalist and other consultants. A total of 35 minutes of critical care time was spent reviewing the patient record, examining the patient, making a diagnostic and therapeutic plan, discussing this plan with the medical personnel, following up on diagnostic studies and following the patient for clinical stability excluding any and all procedures. At least 50% of this time was spent in direct, [id number] contact. Thank you Dr Reid for allowing me to participate in this patient's care. Further recommendations will depend on patient's clinical course. Please do not hesitate to contact me if you have any questions or concerns. This medical document was created using an electronic medical record system with [employer] dictation system. Although this document has been carefully reviewed, there may still be some phonetic and typographical errors. These areas are purely typographical due to imperfections of the software programs, and do not reflect any compromise in the patient's medical care. Dietary Evaluation Review Comments: 1) Advance pt diet when medically feasible to a 2gmNa diet modified per [employer] recommendations 2) Continue current plan of care Expected Outcomes/Goals: 1) Pt diet to advance 2) F/U in 2-3 days Plan discussed with: Patient, Other (YASH Norton) RG LEONE MD Jun 11, 2024 21:27
[2024-06-11] MEDS: FLUTICASONE PROP NASAL SPR 0.05 % (50MCG) 16GM EACHNOSTRI SCH (21:46)
[2024-06-11] MEDS ORDERED: FLUTICASONE PROP NASAL SPR 0.05 % (50MCG) 16GM EACHNOSTRI SCH (22:00)
[2024-06-12] VITALS (62 sets, daily range): BP systolic 94–167; BP diastolic 20–52; PULSE 68–98; RESP 13–28; TEMP 97.9–100.6; O2SAT 96–100
[2024-06-12 03:44] LABS: Hemoglobin 8.4 g/dL (12.2-16.2)
[2024-06-12 03:48] LABS: Hematocrit 24.2 % (36.0-46.0); Mean Corpuscular Hemoglobin 30.2 pg (28.0-32.0); Mean Corpuscular Hgb Conc. 34.8 g/dL (32.0-36.0); Mean Corpuscular Volume 86.7 fL (80.0-100.0); Platelet Count (auto) 286 10^3/uL (140-450); Red Blood Cells 2.79 10^6/uL (4.0-5.20); Red Cell Distribution Width 14.3 % (11.8-14.3); White Blood Cell 11.7 10^3/uL (4.4-10.8)
[2024-06-12 03:54] LABS: Alanine Aminotransferase 15 U/L (7-40); Alkaline Phosphatase 153 U/L (46-116); Anion Gap 7 (5-15); BUN/Creatinine Ratio 54.4 (10.0-20.0); Blood Urea Nitrogen 31 mg/dL (9-23); Calcium 9.4 mg/dL (8.7-10.4); Carbon Dioxide 22 mmol/L (20-31); Chloride 106 mmol/L (98-107); Glucose 168 mg/dL (74-106); Potassium 3.9 mmol/L (3.5-5.1); Sodium 135 mmol/L (136-145)
[2024-06-12 03:55] LABS: Albumin 3.1 g/dL (3.2-4.8); Aspartate Aminotransferase 14 U/L (13-40); Bilirubin, Total 0.7 mg/dL (0.2-1.0); Total Protein 6.4 g/dL (5.7-8.2)
[2024-06-12 04:06] LABS: Basophils % (manual) 0 (0.0-2.0); Blast Cells 0; Metamyelocytes % 0; Myelocytes % 0; Promyelocytes % 0; Reactive Lymphocytes 0
[2024-06-12 05:09] LABS: Band Neutrophils % (manual) 1; Eosinophils % (manual) 1 (0-7); Large Platelets FEW; Lymphocytes % (manual) 8 (10.0-50.0); Monocytes % (manual) 9 (0-12); Platelet Estimate Adequate
--- NOTE | 2024-06-12 10:02 | DVHPN2 ---
Subjective Doing well No new complaints Stable Reviewed: Care Plan, H&P, Labs, Medications, Previous Orders, Radiology Changes from previous H/P or p: Changes General: Per HPI Eyes: No Pain, No Vision change, No Conjunctivae inflammation, No Eyelid inflammation, No Other, No Redness ENT: No Ear pain, No Ear discharge, No Nose pain, No Nose discharge, No Nose congestion, No Mouth pain, No Mouth swelling, No Throat pain, No Throat swelling, No Other Cardiovascular: No Chest Pain, No Palpitations, No Orthopnea, No Paroxysmal Noc. Dyspnea, No Edema, No Lt Headedness, No Other Respiratory: No Cough, No Dry, No Shortness of breath, No SOB with excertion, No Wheezing, No Hemoptysis, No Pleuritic Pain, No Sputum, No Other Gastrointestinal: Nausea Genitourinary: No Dysuria, No Frequency, No Incontinence, No Hematuria, No Retention, No Other Musculoskeletal: No other, No neck pain, No shoulder pain, No arm pain, No back pain, No hand pain, No leg pain, No foot pain Skin: No Rash, No Lesions, No Jaundice, No Bruising, No Other Objective Vitals Vital Signs Date Time Temp Pulse Resp B/P (MAP) Pulse Ox O2 Delivery O2 Flow Rate FiO2 06/12/24 07:07 69 06/12/24 06:45 100.4 20 117/28 (57) 100 212.7 06/12/24 06:00 Nasal Cannula* 2 28 Intake/Output Intake and Output 06/12/24 07:00 Intake Total 2168 ml Output Total 2890 ml Balance -722 ml IV Total 2168 ml Output Urine Total 1675 ml Gastric Drainage Total 1100 ml Drainage Total 85 ml Other 30 ml General Appearance: moderate distress, Other (Intubated and sedated) HEENT: Atraumatic, PERRLA, Other (Pupils equal, 4 mm, reactive to light to 3 mm) Lungs: Clear to auscultation, Normal air movement, Other (Mechanical ventilation) Cardiovascular: Regular rate, Normal S1, Normal S2 Abdomen: Other (Ileostomy with drainage. 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 [employer] and proximal muscles) Skin: Dry, Intact, Other (Surgical incision dry and intact) Psych/Mental Status: Mental status NL, Mood NL Medications Current Medications Medications Dose Ordered Sig/Nora Route Start Time Stop Time Status Last Admin Dose Admin Acetaminophen 650 mg Q6HPRN PRN OR 05/16/24 22:30 06/09/24 22:15 650 MG Pantoprazole Sodium 40 mg DAILY IV 05/17/24 10:00 06/11/24 10:43 40 MG Amino Acids 0 ml @ 0 mls/hr PER PHARMACY IV 05/17/24 08:30 Vancomycin HCl 0 ml @ 0 mls/hr UD IV 05/18/24 07:45 Cancel Norepinephrine Bitartrate 32 mg/ Sodium Chloride 250 ml @ 0.938 mls/ hr Q24H IV 05/18/24 16:00 06/04/24 12:06 0.938 MLS/HR Potassium Chloride 100 ml @ 50 mls/hr Q2H IV 05/22/24 12:30 05/22/24 16:29 Cancel Diagnostic Test (Pha) 1 strip Q6HR 05/24/24 12:00 06/12/24 05:51 1 STRIP Insulin Human Regular FOLLOW SLIDING SCALE Q6HR SC 05/24/24 12:00 06/12/24 06:05 4 UNITS Dextrose 50 ml UD IV 05/24/24 12:00 Enoxaparin Sodium 70 mg Q12HR SC 06/01/24 22:00 06/11/24 21:47 70 MG Labetalol HCl 10 mg Q2HPRN PRN IV 06/02/24 07:45 06/09/24 09:39 10 MG Micafungin Sodium 100 mg/Sodium Chloride 100 ml @ 100 mls/hr DAILY IV 06/03/24 10:00 06/11/24 10:45 100 MLS/HR Ceftriaxone Sodium/Dextrose 50 ml @ 50 mls/hr DAILY IV 06/07/24 10:00 06/11/24 10:45 50 MLS/HR Metronidazole 100 ml @ 100 mls/hr Q8HR IV 06/06/24 22:00 06/12/24 05:51 100 MLS/HR Metoprolol Tartrate 4 mg Q6HR IV 06/08/24 12:00 06/12/24 06:07 4 MG Hydralazine HCl 10 mg Q4HPRN PRN IV 06/08/24 12:45 Ondansetron HCl 4 mg Q4HPRN PRN IV 06/09/24 13:30 06/10/24 16:14 4 MG Nicotine 1 patch DAILY TD 06/11/24 10:00 06/11/24 10:43 1 PATCH Fat Emulsion Intravenous 100 ml/Sodium Acetate 40 meq/Sodium Phosphate 10 meq/ Potassium Chloride 40 meq/ Potassium Phosphate 22 meq/ Magnesium Sulfate 18 meq/ Multivitamins 10 ml/Chromium/ Copper/Manganese/ Zinc 1 ml/Insulin Human Regular 26 units/Amino Acids/ Dextrose/Purified Water 1,763.26 ml @ 73 mls/hr [id number] IV 06/11/24 20:00 06/12/24 19:59 06/11/24 20:10 73 MLS/HR Fluticasone Propionate 50 mcg Q12HR EACHNOSTRI 06/11/24 22:00 06/11/24 21:46 50 MCG Laboratory Results Laboratory Tests 06/12/24 02:54 Chemistry Test 06/12/24 02:54 Albumin 3.1 g/dL (3.2-4.8) L Calcium Level 9.4 mg/dL (8.7-10.4) Magnesium Level 2.0 mg/dL (1.6-2.6) Total Protein 6.4 g/dL (5.7-8.2) LFT Test 06/12/24 02:54 Alanine Aminotransferase (ALT) 15 U/L (7-40) Alkaline Phosphatase 153 U/L (46-116) H Aspartate Amino Transferase (AST) 14 U/L (13-40) Total Bilirubin 0.7 mg/dL (0.2-1.0) Urinalysis Test 05/11/24 16:18 Urine Color Yellow (Yellow) Urine Clarity Clear (Clear) Urine pH 6.0 (5.0-9.0) Urine Specific [place] 1.020 (1.001-1.035) Urine Protein 1+ (Negative) H Urine Ketones 4+ (Negative) H Urine Blood Trace /uL (Negative) H Urine Nitrite Negative (Negative) Urine Bilirubin Negative (Negative) Urine Urobilinogen Normal mg/dL (Negative) Urine Leukocyte Esterase Negative /uL (Negative) Urine RBC 2 /hpf (0 - 4) Urine WBC 2 /hpf (0 - 5) Urine Squamous Epithelial Cells Few /hpf (<5) Urine Bacteria None seen /hpf (None Seen) Urine Mucus Few (None Seen) Urine Glucose Normal mg/dL (Normal) Microbiology Microbiology Date/Time Source Procedure Growth Status 06/07/24 03:00 Abdomen Gram Stain - Final Resulted 06/07/24 03:00 Abdomen Wound Culture - Preliminary Resulted 06/06/24 16:07 Blood Blood Culture - Final NO GROWTH AFTER 5 DAYS OF INCUBATION. Complete 06/06/24 14:23 Urine - [place] Urine Culture - Final Complete 05/16/24 14:20 Sputum Gram Stain - Final Complete 05/16/24 14:20 Respiratory Culture - Final Yeast, not Shawanda albicans Complete Assessment/Plan Assessment/Plan Robotic surgery hysterectomy and salpingo-oophorectomy complicated by Acute CVA Acute CVA w LUE hemiparesis Bowel perforation with repeat exploratory laparotomy with ileostomy creation History of breast cancer with bilateral mastectomies Afib RVR Acute hypoxic respiratory failure Mechanical intubation Exploratory laparotomy, drainage of intraabdominal abscess, thorough peritoneal lavage with reinforcement of the anastomotic location of the previous anastomosis as well as a diverting loop ileostomy on 05/24/24 Anemia Right upper extremity DVT Plan Mechanical ventilation TPN IV antibiotics: Vancomycin + Meropenem No vasopressors Sedation prn GI Prophylaxis: Protonix Transfuse blood prn 05/29/24: Transfuse 1 unit RBCs for Hb 5.9 Lasix 20 mg IV x1 Check Hb after transfusion Off pressors Antibiotics: Meropenem, Vanco, Micafungin Amiodarone IV Taper sedation down as tolerated CXR: Clear TPN Protonix 05/30/24: Discussed with Dr. Fritz Lake Will do CT ABD pelvis to follow up on abscess IV antibiotics Taper sedation down C-PAP? per Dr. Poon 05/31/24: CT abdomen showed no fluid collection IV antibiotics: Meropenem, Vancomycin & Micafungin Amiodarone Dr. Fritz Lake recommended to continue medical treatment, no surgical intervention Sedation as needed TPN 06/01/2024: Start Lovenox 70 mg subQ q.[address] Lake and Neurology IV antibiotics meropenem and vancomycin Micafungin TPN Tapered down sedation as tolerated 06/02/24: Fever Yeast in cultures: Micafungin IV antibiotics: Meropenem & Vanco TPN RUE DVT: Lovenox Normocytic anemia 7.9 Consult ID [place] Cultures Afib: Amiodarone drip Discussed with her sister over the phone 06/03/2024: IV antibiotics: Meropenem and vancomycin IV antifungal: Micafungin TPN Amiodarone IV Dr. Fritz Lake for surgery is on the case 06/04/24: Abdominal infection: IV antibiotics: Meropenem, Vanco and Micafungin TPN Amiodarone Surgery on case: Will discuss with Dr. Fritz Lake regarding tracheostomy ID consult is pending Discussed with sister over the phone, family is agreeable with the trach Anemia: Transfuse one unit RBCs 06/05/24: Hypokalemia: Replace IV antibiotics: Meropenem and Vanco IV antifungals: Micafungin TPN Amiodarone Discussed with Dr. Lake regarding tracheostomy Remove central line PICC line 06/06/24: Repeat CT abdomen & pelvis Discussed with her sister Lianet over the phone Discussed the advance directives She stated that patient as stated before that she wants to be treated but only if she becomes a vegetable then she would stop the treatment The family for now would like to continue treatment We will get a new blood and urine and sputum cultures Continue IV antibiotics and IV antifungal Dr. Lake is evaluating the patient for possible tracheostomy in the next few days 06/07/2024: Off sedation CPAP trial TPN Amiodarone IV antibiotics and antifungals Full code 06/08/24: Afib RVR, start Metoprolol IV scheduled dose Amiodarone is off HTN: Hydralazine Rocephin Flagyl Micafungin TPN NGT to suction Lovenox Hydralazine 06/09/24: Continue current Tx IV antibiotics Metoprolol IV NPO Tube suction 06/11/2024: Patient is stable Fever: Continue IV antibiotics : Rocephin, Flagyl, micafungin Abdominal infection Acute CVA with left sided weakness Atrial fibrillation Hypertension TPN Lovenox IV metoprolol IV Protonix Discussed with her sister over the phone Nicotine patch 06/12/2024 Continue current management Downgrade to the FLYNN NPO TPN Plan discussed with: Patient My Orders Orders - BARI MOORE MD Procedure Category Date Status Time Fluticasone Nasal PHA 10/28/24 In Process [place] (Flonase [place]) 22:00 Transfer Orders XFER 06/12/24 Transmitted 09:32 Date of Service: Jun 12, 2024 Billing Provider: BARI MOORE MD Common Visit Codes: NOT BILLABLE BARI MOORE MD Jun 12, 2024 10:02
--- NOTE | 2024-06-12 10:30 | DVHPN2 ---
Progress Note - Dictate Date Seen: Jun 12, 2024 Has the PT tested + for MRSA If YES, has PT been informed?: No Medical Necessity Reason Pt with a Central, PICC or Fol: Yes The following are medically ne: Muhammad Catheter Reason for muhammad catheter: Strict I&O Subjective Ms. Barrera is a 68 years old right-handed female with a history of hypertension, anemia, breast cancer, she was admitted to the [facility] on 05/07/2024 for scheduled hysterectomy and oophorectomy. Post surgically, she woke up with left-sided weakness, and MRI showed multiple stroke in the right MCA territory. During the hospital stay, she developed fall perforation, and she went through abdominal surgery on 05/16/2024 Because of ongoing intraperitoneal sepsis/peritonitis, the patient went through exploratory laparotomy on 05/24/2024 I have seen and examined the patient in the ICU, I have discussed with her nurse. She is awake, oriented to person, place, she knows the year, socially appropriate, looks tired She does not move the left arm She keeps spiking temperatures, T-max 100.4, she has leukocytosis CBC, 05/16/2024: Metabolic acidosis, 05/17/2024: Metabolic acidosis, 05/18/2024: Metabolic acidosis URINALYSIS, 05/11/2024: WBC: 2, URINE LEUKOCYTE ESTERASE: NEGATIVE WBC/HB/PLT/MCV, 05/04: 5.1/10.7/119/98.3, 05/17/2024: 20.4/8.5/205/86.9 05/19/2024: 12.2/11.1/125/86.2, 05/20/2024: 8.1/10.5/113/86.1, 05/21/2024: 6.6/10.5/106/86.5, 05/26/2024: 9.6/9.2/184/93.8, 05/28/2024: 7.5/7/223/89.6, 05/29/24: 6.8/5.9/251/88.1, 05/30/2024: 7.4/7.7/268/86.6, 06/10/2024: 12.1/9.3/338/88.2 PT/INR/FTT, 05/16/2024: 17.4/1.71/34.2 K, 05/09/2024: 3.9, 05/10/24:3.1, 05/12/2024: 3.4, 05/16/2024: 2.8 Lactic acid, 05/15/2024: 1.6, 05/16/2024: 1.5 HCO3, 05/23/2024: 35 Bun.Cr, 05/23/2024: 37/0.75 LIVER FUNCTION TESTS, 05/12/2024: UNREMARKABLE, 05/16/2024: Unremarkable TBI/AST/ALT/AP, 05/18/2024: 1.2//, 05/19/2024: 3.1/04/23/2067, 05/23/2024: 3.1/48/35/170, 05/29/2024: 2.3/29/21/117 TG/HDL/LDL/HDL, 05/12/2024: 196/134/75/23 TSH, 05/12/2024: 2.01 Echocardiogram 05/14/2024: lvef 65% by visual estimate mild mitral regurg RV enlarged mild left atrium enlarged mild Extremity venous study, 06/01/2024: No left upper extremity DVT. Right internal jugular vein and subclavian vein are not visualized secondary to patient positioning. Nonocclusive thrombus is seen in the right axillary vein and brachial vein. Occlusive thrombus is present at the right cephalic vein. Carotid Doppler, 05/11/2024: 1. Occlusion of the right proximal ICA. 2. Greater than 50% stenosis of the right proximal ECA. 3. Greater than 50% stenosis of the left proximal ICA CT head, 05/11/2024: 1. Chronic lacunar infarct in right centrum semiovale. 2. Chronic periventricular ischemic changes. 3. Cerebral and cerebellar atrophy, likely age-related. 4. Advised further evaluation with MRI brain without contrast if clinically indicated CT abdomen/pelvis, 05/15/2024: Small bowel obstruction with evidence of perforation including free intraperitoneal fluid and air. Extensive subcutaneous emphysema likely secondary to bowel perforation CT abdomen/pelvis, 05/16/2024: 1. Sequelae of recent postsurgical changes as described above. Correlate with surgical history. 2. Pneumoperitoneum and free fluid in the abdomen and pelvis. 3. Large collection containing fluid and gas, predominantly in the right hemiabdomen. There is GI contrast extending into this collection from an adjacent small bowel loop. There is a component of this collection extending adjacent to the anterior superior aspect of the liver. 4. Moderate right hydronephrosis and hydroureter. The distal right ureter appears to be compressed by the large fluid collection in the right hemiabdomen. No obstructing calculus. 5. Dilated small bowel loops in the left hemiabdomen with suspected small-bowel obstruction. 6. Prominent subcutaneous edema in the ventral abdominal wall and extending caudally into the inguinal regions bilaterally, peroneal region, and anterior aspect of the left thigh. 7. Small bilateral pleural effusions with overlying atelectasis. 8. Additional findings as detailed above. CT abdomen, 05/23/2024: Postsurgical changes of the ventral abdomen with interval improvement in the diffuse soft tissue edema and ventral abdominal, pelvis and upper thigh subcutaneous emphysema. Interval significant decrease in size of the loculated collection within the right hemiabdomen and pelvis with small residual. Interval placement of drainage catheters terminating over the left upper abdominal quadrant and left hemipelvis as detailed above. Interval development of small to moderate ascites. Wall thickening of fluid-filled nondistended small bowel loops of the anterior mid to lower abdomen which may be from the surrounding ascites versus enteritis. Additional findings as above CT abdomen staff pelvis, 05/30/2024: 1. Radiodense contrast in the mid abdomen associated with surgical sutures. It is unclear whether this is in bowel or represents a bowel leak. Clinical correlation and continued follow-up is recommended. 2. Right pelvic, anterior abdominal wall and left abdomen drainage catheters in place. No definite abscess identified. 3. Extensive post postsurgical changes of the bowel. 4. Small amount of abdominal and pelvic ascities. 5. Small to moderate right pleural effusion. CTA neck, head, 05/14/24: 1. Complete occlusion of the right cervical internal carotid artery. There may be trickle flow in distal right cervical ICA. 2. Poor flow in the right intracranial ICA likely retrograde perfusion through the contralateral left side posterior circulation through the communicating arteries. 3. High-grade stenosis at the left carotid bulb with at least 70-80% stenosis. Moderate short-segment stenosis in the left proximal ICA with at least 60% stenosis. MRI HEAD, 05/11/2024: 1. Multiple foci of restricted diffusion in the right centrum semiovale and along the right superior frontal lobe compatible with acute to subacute infarcts. There is no evidence of acute hemorrhage or significant surrounding edema. 2. Absence of flow void in the intracranial portions of the right internal carotid artery which is likely occluded. vital signs Vital Sign Date Time Temp Pulse Resp B/P (MAP) Pulse Ox O2 Delivery O2 Flow Rate FiO2 06/12/24 07:07 69 06/12/24 06:45 100.4 20 117/28 (57) 100 212.7 06/12/24 06:00 Nasal Cannula* 2 28 Total Intake and Output 06/11/24 06/11/24 06/12/24 15:00 23:00 07:00 Intake Total 858 ml 799 ml 511 ml Output Total 1615 ml 1275 ml Balance 858 ml -816 ml -764 ml medications Current Medications Medications Dose Ordered Sig/Nora Route Start Time Stop Time Status Last Admin Dose Admin Acetaminophen 650 mg Q6HPRN PRN [place] 05/16/24 22:30 06/09/24 22:15 650 MG Pantoprazole Sodium 40 mg DAILY IV 05/17/24 10:00 06/11/24 10:43 40 MG Amino Acids 0 ml @ 0 mls/hr PER PHARMACY IV 05/17/24 08:30 Vancomycin HCl 0 ml @ 0 mls/hr UD IV 05/18/24 07:45 Cancel Norepinephrine Bitartrate 32 mg/ Sodium Chloride 250 ml @ 0.938 mls/ hr Q24H IV 05/18/24 16:00 06/04/24 12:06 0.938 MLS/HR Potassium Chloride 100 ml @ 50 mls/hr Q2H IV 05/22/24 12:30 05/22/24 16:29 Cancel Diagnostic Test (Pha) 1 strip Q6HR 05/24/24 12:00 06/12/24 05:51 1 STRIP Insulin Human Regular FOLLOW SLIDING SCALE Q6HR SC 05/24/24 12:00 06/12/24 06:05 4 UNITS Dextrose 50 ml UD IV 05/24/24 12:00 Enoxaparin Sodium 70 mg Q12HR SC 06/01/24 22:00 06/11/24 21:47 70 MG Labetalol HCl 10 mg Q2HPRN PRN IV 06/02/24 07:45 06/09/24 09:39 10 MG Micafungin Sodium 100 mg/Sodium Chloride 100 ml @ 100 mls/hr DAILY IV 06/03/24 10:00 06/11/24 10:45 100 MLS/HR Ceftriaxone Sodium/Dextrose 50 ml @ 50 mls/hr DAILY IV 06/07/24 10:00 06/11/24 10:45 50 MLS/HR Metronidazole 100 ml @ 100 mls/hr Q8HR IV 06/06/24 22:00 06/12/24 05:51 100 MLS/HR Metoprolol Tartrate 4 mg Q6HR IV 06/08/24 12:00 06/12/24 06:07 4 MG Hydralazine HCl 10 mg Q4HPRN PRN IV 06/08/24 12:45 Ondansetron HCl 4 mg Q4HPRN PRN IV 06/09/24 13:30 06/10/24 16:14 4 MG Nicotine 1 patch DAILY TD 06/11/24 10:00 06/11/24 10:43 1 PATCH Fat Emulsion Intravenous 100 ml/Sodium Acetate 40 meq/Sodium Phosphate 10 meq/ Potassium Chloride 40 meq/ Potassium Phosphate 22 meq/ Magnesium Sulfate 18 meq/ Multivitamins 10 ml/Chromium/ Copper/Manganese/ Zinc 1 ml/Insulin Human Regular 26 units/Amino Acids/ Dextrose/Purified Water 1,763.26 ml @ 73 mls/hr [id number] IV 06/11/24 20:00 06/12/24 19:59 06/11/24 20:10 73 MLS/HR Fluticasone Propionate 50 mcg Q12HR EACHNOSTRI 06/11/24 22:00 06/11/24 21:46 50 MCG Fat Emulsion Intravenous 100 ml/Sodium Acetate 40 meq/Sodium Phosphate 10 meq/ Potassium Chloride 40 meq/ Potassium Phosphate 22 meq/ Magnesium Sulfate 18 meq/ Multivitamins 10 ml/Chromium/ Copper/Manganese/ Zinc 1 ml/Insulin Human Regular 28 units/Amino Acids/ Dextrose/Purified Water 1,763.28 ml @ 73 mls/hr [id number] IV 06/12/24 20:00 06/13/24 19:59 objective General: the patient is well developed and nourished. No acute distress. ABDOMEN: Status post surgery MENTAL STATUS: Subjective. CRANIAL NERVES: Pupils are round and reactive. normal external eye movement, normal sensation and motor examination in the lateral trigeminal nerve distribution, no facial weakness. SENSATION: Okay to pinprick and light touch MOTOR: Normal tone in the upper and lower extremity. Normal muscle bulk. No fasciculations. She can move the right arm and the legs REFLEXES: Deep tendon reflexes are symmetrical. No pathological reflexes. CEREBELLAR/COORDINATION: Deferred GAIT/STATION: deferred. laboratory and microbiology Laboratory Tests 06/12/24 02:54 Test 06/12/24 02:54 Range/Units Serum Glucose 168 H 74-106 mg/dL Problem List Pelvic prolapse, can count urethrovesical junction, surgery repair on 05/07/2024 (Robotic supracervical hysterectomy bilateral salpingo-oophorectomy colposcopic pexy cystocele repair urethral sling partial vaginectomy) Bowel obstruction with perforation, intra-abdominal abscess, dense at [place], status post surgery 05/16/2024 Sepsis/septic shock Metabolic encephalopathy Acute right MCA territory multiple strokes Left hemiparesis Right ICA occlusion Left ICA severe stenosis Anemia, with unstable H&H Status post oophorectomy, hysterectomy Anisocoria, uncertain clinical significance (small and equal pupils since 06/06/2024) DVT Assessment/Plan Monitoring Supportive treatment ICU care Stabilize vitals/pressor drip Respiratory support/vent management IV antibiotics Oxygen Lovenox 70 mg subQ b.i.d. TPN GI prophylaxis Further address bilateral carotid stenosis CLARA on discharge Surgery on case Okay to use Lovenox for DVT from neurologic point of view More recommendation per clinical course This medical document was created using an electronic medical record system with [employer] dictation system. Although this document has been carefully reviewed, there may still be some phonetic and typographical errors. These areas are purely typographical due to imperfections of the software programs, and do not reflect any compromise in the patient's medical care Prognosis poor Dietary Evaluation Review Comments: 1) Advance pt diet when medically feasible to a 2gmNa diet modified per DEVELOPMENT SPEC recommendations 2) Continue current plan of care Expected Outcomes/Goals: 1) Pt diet to advance 2) F/U in 2-3 days Plan discussed with: Other BRYAN FLORES MD Jun 12, 2024 10:30
[2024-06-12] MEDS: KETOROLAC TROMETH 30 MG/ML 1ML VIAL IV ONE (11:00)
--- NOTE | 2024-06-12 15:23 | DVHPN2 ---
Consult Progress Note Date Seen: Jun 11, 2024 Subjective Patient reports: Feels better (fevers ongoing, remains off pressors, no abdominal pain) Objective vital signs Vital Sign Date Time Temp Pulse Resp B/P (MAP) Pulse Ox O2 Delivery O2 Flow Rate FiO2 06/12/24 14:30 72 27 107/44 (65) 100 06/12/24 14:00 Nasal Cannula* 2 28 06/12/24 12:00 99.7 99.7 Total Intake and Output 06/11/24 06/11/24 06/12/24 15:00 23:00 07:00 Intake Total 858 ml 799 ml 584 ml Output Total 1615 ml 1275 ml Balance 858 ml -816 ml -691 ml medications Current Medications Medications Dose Ordered Sig/Nora Route Start Time Stop Time Status Last Admin Dose Admin Acetaminophen 650 mg Q6HPRN PRN [place] 05/16/24 22:30 06/09/24 22:15 650 MG Pantoprazole Sodium 40 mg DAILY IV 05/17/24 10:06/12/24 10:58 40 MG Amino Acids 0 ml @ 0 mls/hr PER PHARMACY IV 05/17/24 08:30 Vancomycin HCl 0 ml @ 0 mls/hr UD IV 05/18/24 07:45 Cancel Norepinephrine Bitartrate 32 mg/ Sodium Chloride 250 ml @ 0.938 mls/ hr Q24H IV 05/18/24 16:00 06/04/24 12:06 0.938 MLS/HR Potassium Chloride 100 ml @ 50 mls/hr Q2H IV 05/22/24 12:30 05/22/24 16:29 Cancel Diagnostic Test (Pha) 1 strip Q6HR 05/24/24 12:00 06/12/24 12:37 1 STRIP Insulin Human Regular FOLLOW SLIDING SCALE Q6HR SC 05/24/24 12:00 06/12/24 12:29 4 UNITS Dextrose 50 ml UD IV 05/24/24 12:00 Enoxaparin Sodium 70 mg Q12HR SC 06/01/24 22:00 06/12/24 10:58 70 MG Labetalol HCl 10 mg Q2HPRN PRN IV 06/02/24 07:45 06/09/24 09:39 10 MG Micafungin Sodium 100 mg/Sodium Chloride 100 ml @ 100 mls/hr DAILY IV 06/03/24 10:00 06/12/24 10:59 100 MLS/HR Ceftriaxone Sodium/Dextrose 50 ml @ 50 mls/hr DAILY IV 06/07/24 10:00 06/11/24 10:45 50 MLS/HR Metronidazole 100 ml @ 100 mls/hr Q8HR IV 06/06/24 22:00 06/12/24 14:19 100 MLS/HR Metoprolol Tartrate 4 mg Q6HR IV 06/08/24 12:00 06/12/24 06:07 4 MG Hydralazine HCl 10 mg Q4HPRN PRN IV 06/08/24 12:45 Ondansetron HCl 4 mg Q4HPRN PRN IV 06/09/24 13:30 06/10/24 16:14 4 MG Nicotine 1 patch DAILY TD 06/11/24 10:00 06/12/24 10:59 1 PATCH Fat Emulsion Intravenous 100 ml/Sodium Acetate 40 meq/Sodium Phosphate 10 meq/ Potassium Chloride 40 meq/ Potassium Phosphate 22 meq/ Magnesium Sulfate 18 meq/ Multivitamins 10 ml/Chromium/ Copper/Manganese/ Zinc 1 ml/Insulin Human Regular 26 units/Amino Acids/ Dextrose/Purified Water 1,763.26 ml @ 73 mls/hr [id number] IV 06/11/24 20:00 06/12/24 19:59 06/11/24 20:10 73 MLS/HR Fluticasone Propionate 50 mcg Q12HR EACHNOSTRI 06/11/24 22:00 06/12/24 10:58 50 MCG Fat Emulsion Intravenous 100 ml/Sodium Acetate 40 meq/Sodium Phosphate 10 meq/ Potassium Chloride 40 meq/ Potassium Phosphate 22 meq/ Magnesium Sulfate 18 meq/ Multivitamins 10 ml/Chromium/ Copper/Manganese/ Zinc 1 ml/Insulin Human Regular 28 units/Amino Acids/ Dextrose/Purified Water 1,763.28 ml @ 73 mls/hr [id number] IV 06/12/24 20:00 06/13/24 19:59 laboratory and microbiology Laboratory Tests 06/12/24 02:54 Test 06/12/24 02:54 Range/Units Serum Glucose 168 H 74-106 mg/dL Problem List/Assessment/Plan Problem List/Assessment/Plan Assessment and Plan: ID Problem List: 1. Small bowel obstruction with perforation 2. Septic shock 3. Stroke, right MCA territory 4. Hypertension 5. Anemia 6. Breast cancer 7. Bilateral mastectomy 8. Post-surgical complications (including ileostomy creation) 9. Fungal infection (yeast not Shawanda albicans) 10. Strep Viridans Group B infection Assessment: This is a 68-year-old female, with a significant past medical history of anemia, hypertension, breast cancer status post bilateral mastectomy, and a 50 pack-year smoking history (now quit), who was initially admitted for a robotic hysterectomy with bilateral salpingectomy, removal of a right ovarian mass, cystocele repair with urethral sling. Postoperatively, she developed hypertension and nausea, necessitating overnight admission. Post-admission, she endured a cerebrovascular accident primarily impacting the right MCA territory and contributing to left-sided weakness. Subsequent evaluations included MRI and CT head scans that confirmed multiple acute and subacute infarcts. Later complications included progression to an acute small bowel obstruction with perforation, leading to emergent exploratory laparotomy and subsequent ileostomy creation. Cultures from the surgical sites revealed a non-Shawanda albicans yeast and Strep Viridans Group B infection. The patient continues to require ICU support, primarily due to ongoing septic shock and the need for ventilatory assistance. Patient remains intubated with vasopressors being weaned off. Recent WBC count was 16.9 and hemoglobin levels have fluctuated, dropping as low as 5.9. She has been transitioned to a multi-antibiotic regimen including meropenem, vancomycin, and TPN for nutritional support. 06/04: hemaglobin of 6.9, suspect ongoing blood loss. Preliminary blood cultures are no growth for 48 hours as well as wound and urine cultures with no growth 06/05: hemaglobin of 8.4 after blood transfusion. Repeat cultures of the abdomen is showing no organisms 06/06: Ct pelvis abdomen shows faily stable appearing radio dense contrast in the central mid abdomen with adjacent surgical sutures. Small bowel anacitis. drainage catheter terminating in the pelvis and upper abdomen, stable appearing intraabdominal acities. extensive post-surgical changes that ate unchanged. a small to moderate right mid size plural effusion. Chest x-ray was done and shows no focal consolidation in the lungs 06/07: Chest x-ray done before the excavation, showing pulmonary disease 06/08: Abdominal drain fluids and patients surgical site has been cultured. Removal of catheter tip from yesterday shows staphylococcus and micrococcus , likely skin florac contamination . White count of 12.4 today and will continue to monitor Plan: 1. continue Ceftriaxone and flagyl, when patient can tolerate oral can switch to oral of these medications 2. Continue micafungin for fungal infection, may consider switching if yeast infection persists but will hold off for now 3. check blood cultures and check surgical site wound culture 4. Provide ICU support with ventilator for respiratory status and hemodynamic monitoring. 5. Supportive care measures for septic shock, including fluid resuscitation and vasopressor management. 6. Monitor and maintain drainage output. 7. Ensure adequate nutritional support through TPN. 8. Follow-up with surgical team for wound care and any necessary surgical interventions. 9. if hypotension persists, recommend repeating Ct of abdomen in a few days to rule out hematoma 10. monitor patients resopse to all regimens clinically when patient passes bedside swallow 11. monitor white count 12. follow up on cultures of incision site and drainage specimen Authorized and Performed by: mey ayala MD Total critical care time: Approximately 68 minutes Due to a high probability of clinically significant, life threatening deterioration, the patient required my highest level of preparedness to intervene emergently and I personally spent this critical care time directly and personally managing the patient. This critical care time included obtaining a history; examining the patient; pulse oximetry; ordering and review of studies; arranging urgent treatment with development of a management plan; evaluation of patient's response to treatment; frequent reassessment; and, discussions with other providers. This critical care time was performed to assess and manage the high probability of imminent, life-threatening deterioration that could result in multi-organ failure. It was exclusive of separately billable procedures and treating other patients and teaching time. Plan discussed with: Patient Dietary Evaluation Review Comments: 1) Advance pt diet when medically feasible to a 2gmNa diet modified per POLICE COMMUNICATIONS OPERATOR recommendations 2) Continue current plan of care Expected Outcomes/Goals: 1) Pt diet to advance 2) F/U in 2-3 days MEY AYALA MD Jun 12, 2024 15:23
[2024-06-12] MEDS ORDERED: MORPHINE SULFATE INJ 2 MG/ml SYRG IV PRN (16:00)
[2024-06-12] MEDS: PIPERACILLIN-TAZOB 3.375GM 100 ML IV SCH (16:20)
--- NOTE | 2024-06-12 18:22 | DVHPN2 ---
Progress Note Date Seen: Jun 12, 2024 Has the PT tested + for MRSA If YES, has PT been informed?: No Medical Necessity Reason Pt with a Central, PICC or Fol: Yes The following are medically ne: Muhammad Catheter Reason for muhammad catheter: Strict I&O Objective vital signs Vital Sign Date Time Temp Pulse Resp B/P (MAP) Pulse Ox O2 Delivery O2 Flow Rate FiO2 06/12/24 18:00 80 112/48 06/12/24 16:30 19 100 06/12/24 16:00 Nasal Cannula* 2 06/12/24 16:00 99.0 99.0 Total Intake and Output 06/11/24 06/11/24 06/12/24 15:00 23:00 07:00 Intake Total 858 ml 799 ml 584 ml Output Total 1615 ml 1275 ml Balance 858 ml -816 ml -691 ml medications Current Medications Medications Dose Ordered Sig/Nora Route Start Time Stop Time Status Last Admin Dose Admin Acetaminophen 650 mg Q6HPRN PRN [place] 05/16/24 22:30 06/09/24 22:15 650 MG Pantoprazole Sodium 40 mg DAILY IV 05/17/24 10:00 06/12/24 10:58 40 MG Amino Acids 0 ml @ 0 mls/hr PER PHARMACY IV 05/17/24 08:30 Vancomycin HCl 0 ml @ 0 mls/hr UD IV 05/18/24 07:45 Cancel Norepinephrine Bitartrate 32 mg/ Sodium Chloride 250 ml @ 0.938 mls/ hr Q24H IV 05/18/24 16:00 06/04/24 12:06 0.938 MLS/HR Potassium Chloride 100 ml @ 50 mls/hr Q2H IV 05/22/24 12:30 05/22/24 16:29 Cancel Diagnostic Test (Pha) 1 strip Q6HR 05/24/24 12:00 06/12/24 12:37 1 STRIP Insulin Human Regular FOLLOW SLIDING SCALE Q6HR SC 05/24/24 12:00 06/12/24 18:05 4 UNITS Dextrose 50 ml UD IV 05/24/24 12:00 Enoxaparin Sodium 70 mg Q12HR SC 06/01/24 22:00 06/12/24 10:58 70 MG Labetalol HCl 10 mg Q2HPRN PRN IV 06/02/24 07:45 06/09/24 09:39 10 MG Metoprolol Tartrate 4 mg Q6HR IV 06/08/24 12:00 06/12/24 06:07 4 MG Hydralazine HCl 10 mg Q4HPRN PRN IV 06/08/24 12:45 Ondansetron HCl 4 mg Q4HPRN PRN IV 06/09/24 13:30 06/10/24 16:14 4 MG Nicotine 1 patch DAILY TD 06/11/24 10:00 06/12/24 10:59 1 PATCH Fat Emulsion Intravenous 100 ml/Sodium Acetate 40 meq/Sodium Phosphate 10 meq/ Potassium Chloride 40 meq/ Potassium Phosphate 22 meq/ Magnesium Sulfate 18 meq/ Multivitamins 10 ml/Chromium/ Copper/Manganese/ Zinc 1 ml/Insulin Human Regular 26 units/Amino Acids/ Dextrose/Purified Water 1,763.26 ml @ 73 mls/hr [id number] IV 06/11/24 20:00 06/12/24 19:59 06/11/24 20:10 73 MLS/HR Fluticasone Propionate 50 mcg Q12HR EACHNOSTRI 06/11/24 22:00 06/12/24 10:58 50 MCG Fat Emulsion Intravenous 100 ml/Sodium Acetate 40 meq/Sodium Phosphate 10 meq/ Potassium Chloride 40 meq/ Potassium Phosphate 22 meq/ Magnesium Sulfate 18 meq/ Multivitamins 10 ml/Chromium/ Copper/Manganese/ Zinc 1 ml/Insulin Human Regular 28 units/Amino Acids/ Dextrose/Purified Water 1,763.28 ml @ 73 mls/hr [id number] IV 06/12/24 20:00 06/13/24 19:59 Piperacillin Sod/ Tazobactam Sod 100 ml @ 25 mls/hr Q8HR IV 06/12/24 15:45 06/12/24 16:20 25 MLS/HR Micafungin Sodium 100 mg/Sodium Chloride 100 ml @ 100 mls/hr DAILY IV 06/13/24 10:00 Voriconazole 300 mg/Dextrose 280 ml @ 140 mls/hr Q12H IV 06/12/24 20:00 06/13/24 09:59 Voriconazole 200 mg/Dextrose 270 ml @ 135 mls/hr Q12H IV 06/13/24 20:00 Morphine Sulfate 1 mg Q4HP PRN IV 06/12/24 16:00 laboratory and microbiology Laboratory Tests 06/12/24 02:54 Test 06/12/24 02:54 Range/Units Serum Glucose 168 H 74-106 mg/dL Microbiology Date/Time Source Procedure Growth Status 06/07/24 03:00 Abdomen Gram Stain - Final Complete 06/07/24 03:00 Abdomen Wound Culture - Final Complete 06/06/24 16:07 Blood Blood Culture - Final NO GROWTH AFTER 5 DAYS OF INCUBATION. Complete 06/06/24 14:23 Urine - [place] Urine Culture - Final Complete 05/16/24 14:20 Sputum Gram Stain - Final Complete 05/16/24 14:20 Respiratory Culture - Final Yeast, not Shawanda albicans Complete Problem List/Assessment/Plan Problem List/Assessment/Plan REMAINS EXTUBATED AFEBRILE VSS NO VASOPRESSOR WBC MILD ELEVATION BUT TRENDING DOWN ABD SOFT SMALL SMEAR BM DRAINS IN PLACE R 40 CC PURULENT L 10 CC PURULENT DRESSING ABD WOUND DRAINAGE LESS CONDITION GUARDED ILEOSTOMY VIABLE AND FUNCTIONAL NURSE AT BEDSIDE CONTINUE SUPPORTIVE CARE CONTINUE ID EVAL AND IV ABX NURSE AT BEDSIDE FAMILY AWARE AND UPDATED RE HER ONGOING CARE AND CONDITION Plan discussed with: Patient Dietary Evaluation Review Comments: 1) Advance pt diet when medically feasible to a 2gmNa diet modified per INSPECTOR WATCH PARTS recommendations 2) Continue current plan of care Expected Outcomes/Goals: 1) Pt diet to advance 2) F/U in 2-3 days SHEY COVARRUBIAS MD Jun 12, 2024 18:22
--- NOTE | 2024-06-12 18:26 | DVHPN2 ---
Progress Note - Dictate Date Seen: Jun 12, 2024 Has the PT tested + for MRSA If YES, has PT been informed?: No Medical Necessity Reason Pt with a Central, PICC or Fol: Yes The following are medically ne: Muhammad Catheter Reason for muhammad catheter: Strict I&O Subjective Patient seen and examined at bedside. Remains on supplemental oxygen. Overnight events reviewed. vital signs Vital Sign Date Time Temp Pulse Resp B/P (MAP) Pulse Ox O2 Delivery O2 Flow Rate FiO2 06/12/24 18:00 80 112/48 06/12/24 16:30 19 100 06/12/24 16:00 Nasal Cannula* 2 28 06/12/24 16:00 99.0 99.0 Total Intake and Output 06/11/24 06/11/24 06/12/24 15:00 23:00 07:00 Intake Total 858 ml 799 ml 584 ml Output Total 1615 ml 1275 ml Balance 858 ml -816 ml -691 ml medications Current Medications Medications Dose Ordered Sig/Nora Route Start Time Stop Time Status Last Admin Dose Admin Acetaminophen 650 mg Q6HPRN PRN NV 05/16/24 22:30 06/09/24 22:15 650 MG Pantoprazole Sodium 40 mg DAILY IV 05/17/24 10:00 06/12/24 10:58 40 MG Amino Acids 0 ml @ 0 mls/hr PER PHARMACY IV 05/17/24 08:30 Vancomycin HCl 0 ml @ 0 mls/hr UD IV 05/18/24 07:45 Cancel Norepinephrine Bitartrate 32 mg/ Sodium Chloride 250 ml @ 0.938 mls/ hr Q24H IV 05/18/24 16:00 06/04/24 12:06 0.938 MLS/HR Potassium Chloride 100 ml @ 50 mls/hr Q2H IV 05/22/24 12:30 05/22/24 16:29 Cancel Diagnostic Test (Pha) 1 strip Q6HR 05/24/24 12:00 06/12/24 12:37 1 STRIP Insulin Human Regular FOLLOW SLIDING SCALE Q6HR SC 05/24/24 12:00 06/12/24 18:05 4 UNITS Dextrose 50 ml UD IV 05/24/24 12:00 Enoxaparin Sodium 70 mg Q12HR SC 06/01/24 22:00 06/12/24 10:58 70 MG Labetalol HCl 10 mg Q2HPRN PRN IV 06/02/24 07:45 06/09/24 09:39 10 MG Metoprolol Tartrate 4 mg Q6HR IV 06/08/24 12:00 06/12/24 06:07 4 MG Hydralazine HCl 10 mg Q4HPRN PRN IV 06/08/24 12:45 Ondansetron HCl 4 mg Q4HPRN PRN IV 06/09/24 13:30 06/10/24 16:14 4 MG Nicotine 1 patch DAILY TD 06/11/24 10:00 06/12/24 10:59 1 PATCH Fat Emulsion Intravenous 100 ml/Sodium Acetate 40 meq/Sodium Phosphate 10 meq/ Potassium Chloride 40 meq/ Potassium Phosphate 22 meq/ Magnesium Sulfate 18 meq/ Multivitamins 10 ml/Chromium/ Copper/Manganese/ Zinc 1 ml/Insulin Human Regular 26 units/Amino Acids/ Dextrose/Purified Water 1,763.26 ml @ 73 mls/hr [id number] IV 06/11/24 20:00 06/12/24 19:59 06/11/24 20:10 73 MLS/HR Fluticasone Propionate 50 mcg Q12HR EACHNOSTRI 06/11/24 22:00 06/12/24 10:58 50 MCG Fat Emulsion Intravenous 100 ml/Sodium Acetate 40 meq/Sodium Phosphate 10 meq/ Potassium Chloride 40 meq/ Potassium Phosphate 22 meq/ Magnesium Sulfate 18 meq/ Multivitamins 10 ml/Chromium/ Copper/Manganese/ Zinc 1 ml/Insulin Human Regular 28 units/Amino Acids/ Dextrose/Purified Water 1,763.28 ml @ 73 mls/hr [id number] IV 06/12/24 20:00 06/13/24 19:59 Piperacillin Sod/ Tazobactam Sod 100 ml @ 25 mls/hr Q8HR IV 06/12/24 15:45 06/12/24 16:20 25 MLS/HR Micafungin Sodium 100 mg/Sodium Chloride 100 ml @ 100 mls/hr DAILY IV 06/13/24 10:00 Voriconazole 300 mg/Dextrose 280 ml @ 140 mls/hr Q12H IV 06/12/24 20:00 06/13/24 09:59 Voriconazole 200 mg/Dextrose 270 ml @ 135 mls/hr Q12H IV 06/13/24 20:00 Hydromorphone HCl 0.25 mg Q6HPRN PRN IV 06/12/24 18:30 UNV objective Gen.: Patient lying in bed in no apparent distress. On supplemental oxygen. Head: Normocephalic, atraumatic. Eyes: EOMI/PERRLA. Ears: Normal hearing. Normal anatomy. Neck/trachea: Trachea midline, supple. Nose: Normal external anatomy. Mouth: Moist mucous membranes. Chest: Decreased air entry bilaterally. No wheezing or rhonchi. Cardiovascular: Positive S1, positive S2. Regular rate and rhythm. Abdomen: Positive bowel sounds in all 4 quadrants. Soft, non-tender, non- distended. : Deferred. Rectal: Deferred. Skin: Warm, dry. Intact. Extremities: 2+ radial pulses bilaterally. No lower extremity edema. Neuro: Awake, alert, oriented x3. No gross motor or sensory deficits. Cranial nerves II through XII intact. Gait not assessed. laboratory and microbiology Laboratory Tests 06/12/24 02:54 Test 06/12/24 02:54 Range/Units Serum Glucose 168 H 74-106 mg/dL Assessment/Plan Impression: Acute hypoxic respiratory failure Abdominal pain due to recent robotic surgery hysterectomy and salpingo- oophorectomy History of breast cancer with bilateral mastectomies History of bowel surgery and ileostomy Anemia due to hemorrhage on hemodilution Shock Chronic pain syndrome Anemia Atrial fibrillation with RVR Bowel perforation with repeat exploratory laparotomy with ileostomy creation Events: Remains on supplemental oxygen. On 2 liters/minute via nasal cannula Taper O2 as tolerated Incentive spirometry Continue abx with ceftriaxone, metronidazole, Zosyn. Nasal spray Continue antifungal ID recommendations appreciated. TPN for nutritional support NGT Off pressors, hemodynamically stable. Head of bed elevation Aspiration precautions. Upper extremity Doppler showed nonocclusive thrombus in the right axillary vein and brachial vein Currently on enoxaparin 70 mg subcutaneous Blood cultures revealed growth of yeast but not Shawanda albicans Currently on micafungin intravenous, Monitor renal function Monitor electrolytes, supplement as necessary Labs and imaging reviewed Rest of plan as outlined below. Plan: S/p extubation on 06/07 Supplemental oxygen. On 2 liters/minute via nasal cannula CXR, ABG reviewed. Pressors as necessary for hemodynamic support Titrate to keep mean arterial pressure greater than 65 mmHg. Continue antibiotics. F/u cultures. Monitor hemoglobin Transfuse if less than 7.0 grams/deciliter Monitor renal function due to Acute kidney injury. Monitor electrolytes. Supplement as necessary. Surgery recommendations appreciated. Nutritional support. On TPN Accucheks, ISS. GI prophylaxis - Pantoprazole 40 DVT prophylaxis- on enoxaparin 70 SC Prognosis: Poor given multiple comorbidities. Rest of plan per hospitalist and other consultants. Thank you Dr Reid for allowing me to participate in this patient's care. Further recommendations will depend on patient's clinical course. Please do not hesitate to contact me if you have any questions or concerns. This medical document was created using an electronic medical record system with [employer] dictation system. Although this document has been carefully reviewed, there may still be some phonetic and typographical errors. These areas are purely typographical due to imperfections of the software programs, and do not reflect any compromise in the patient's medical care. Dietary Evaluation Review Comments: 1) Advance pt diet when medically feasible to a 2gmNa diet modified per [employer]ENT recommendations 2) Continue current plan of care Expected Outcomes/Goals: 1) Pt diet to advance 2) F/U in 2-3 days Plan discussed with: Patient, Other (YASH Thompson) RG LEONE MD Jun 12, 2024 18:26
[2024-06-12] MEDS: MICAFUNGIN SODIUM 100 MG in SODIUM CHL 0.9% 100 ML IV ONE (18:28)
[2024-06-12] MEDS: VORICONAZOLE INJ 300 MG in D5W 5% 250 ML IV SCH (19:49)
[2024-06-12] MEDS: TPN PER PHARMACY IV NR (20:18)
--- NOTE | 2024-06-12 20:50 | DVHPN2 ---
Consult Progress Note Date Seen: Jun 12, 2024 Subjective Patient reports: Other (denies any nausea or vomiting or abdominal pain , has a little bit of drainage from surgical site ) Objective vital signs Vital Sign Date Time Temp Pulse Resp B/P (MAP) Pulse Ox O2 Delivery O2 Flow Rate FiO2 06/12/24 20:00 22 100 Nasal Cannula* 2 06/12/24 20:00 83 06/12/24 19:00 126/52 (76) 06/12/24 16:00 99.0 99.0 Total Intake and Output 06/11/24 06/11/24 06/12/24 15:00 23:00 07:00 Intake Total 858 ml 799 ml 584 ml Output Total 1615 ml 1275 ml Balance 858 ml -816 ml -691 ml medications Current Medications Medications Dose Ordered Sig/Nora Route Start Time Stop Time Status Last Admin Dose Admin Acetaminophen 650 mg Q6HPRN PRN NC 05/16/24 22:30 06/09/24 22:15 650 MG Pantoprazole Sodium 40 mg DAILY IV 05/17/24 10:00 06/12/24 10:58 40 MG Amino Acids 0 ml @ 0 mls/hr PER PHARMACY IV 05/17/24 08:30 Vancomycin HCl 0 ml @ 0 mls/hr UD IV 05/18/24 07:45 Cancel Norepinephrine Bitartrate 32 mg/ Sodium Chloride 250 ml @ 0.938 mls/ hr Q24H IV 05/18/24 16:00 06/04/24 12:06 0.938 MLS/HR Potassium Chloride 100 ml @ 50 mls/hr Q2H IV 05/22/24 12:30 05/22/24 16:29 Cancel Diagnostic Test (Pha) 1 strip Q6HR 05/24/24 12:00 06/12/24 18:28 1 STRIP Insulin Human Regular FOLLOW SLIDING SCALE Q6HR SC 05/24/24 12:00 06/12/24 18:05 4 UNITS Dextrose 50 ml UD IV 05/24/24 12:00 Enoxaparin Sodium 70 mg Q12HR SC 06/01/24 22:00 06/12/24 10:58 70 MG Labetalol HCl 10 mg Q2HPRN PRN IV 06/02/24 07:45 06/09/24 09:39 10 MG Metoprolol Tartrate 4 mg Q6HR IV 06/08/24 12:00 06/12/24 06:07 4 MG Hydralazine HCl 10 mg Q4HPRN PRN IV 06/08/24 12:45 Ondansetron HCl 4 mg Q4HPRN PRN IV 06/09/24 13:30 06/10/24 16:14 4 MG Nicotine 1 patch DAILY TD 06/11/24 10:00 06/12/24 10:59 1 PATCH Fluticasone Propionate 50 mcg Q12HR EACHNOSTRI 06/11/24 22:00 06/12/24 10:58 50 MCG Fat Emulsion Intravenous 100 ml/Sodium Acetate 40 meq/Sodium Phosphate 10 meq/ Potassium Chloride 40 meq/ Potassium Phosphate 22 meq/ Magnesium Sulfate 18 meq/ Multivitamins 10 ml/Chromium/ Copper/Manganese/ Zinc 1 ml/Insulin Human Regular 28 units/Amino Acids/ Dextrose/Purified Water 1,763.28 ml @ 73 mls/hr [id number] IV 06/12/24 20:00 06/13/24 19:59 06/12/24 20:18 73 MLS/HR Piperacillin Sod/ Tazobactam Sod 100 ml @ 25 mls/hr Q8HR IV 06/12/24 15:45 06/12/24 16:20 25 MLS/HR Micafungin Sodium 100 mg/Sodium Chloride 100 ml @ 100 mls/hr DAILY IV 06/13/24 10:00 Voriconazole 300 mg/Dextrose 280 ml @ 140 mls/hr Q12H IV 06/12/24 20:00 06/13/24 09:59 06/12/24 19:49 140 MLS/HR Voriconazole 200 mg/Dextrose 270 ml @ 135 mls/hr Q12H IV 06/13/24 20:00 Hydromorphone HCl 0.25 mg Q6HPRN PRN IV 06/12/24 18:30 Physical Exam: - General: NAD. last drainage output was 85ccs - Neck: Supple. No masses. - HEENT: PERRL. Normal lids and conjunctiva. Moist mucous membranes. Oropharynx without lesions, exudates or excessive erythema. Normal appearance of the external aspects of the nose and ears. - Heart: Regular rhythm, normal rate. No murmur. No lower extremity edema. - Lungs: Normal respiratory effort. Clear to auscultation bilaterally. No wheezes. No crackles. - Abdomen: Soft. Non-tender. minimally distended. No masses or abdominal hernia. abdominal pain. increased drainage from surgical incision site at the inferior part - MSK: No digital cyanosis. Normal strength and tone in all 4 limbs. - Skin: Warm and dry, no rashes. fevers. - Neuro: Alert. No facial droop or slurred speech. EO movements intact. Sensation intact to soft touch in all 4 limbs. L sided weakness in UE and LE - Psych: Appropriate mood laboratory and microbiology Laboratory Tests 06/12/24 02:54 Test 06/12/24 02:54 Range/Units Serum Glucose 168 H 74-106 mg/dL Problem List/Assessment/Plan Problems(with codes): (1) Fungal infection (2) Intra-abdominal abscess (3) SBO (small bowel obstruction) (4) Stroke (5) Anemia (6) Breast cancer (7) Hypertension Problem List/Assessment/Plan Assessment and Plan: ID Problem List: 1. Small bowel obstruction with perforation 2. Septic shock 3. Stroke, right MCA territory 4. Hypertension 5. Anemia 6. Breast cancer 7. Bilateral mastectomy 8. Post-surgical complications (including ileostomy creation) 9. Fungal infection (yeast not Radha albicans) 10. Strep Viridans Group B infection Assessment: This is a 68-year-old female, with a significant past medical history of anemia, hypertension, breast cancer status post bilateral mastectomy, and a 50 pack-year smoking history (now quit), who was initially admitted for a robotic hysterectomy with bilateral salpingectomy, removal of a right ovarian mass, cystocele repair with urethral sling. Postoperatively, she developed hypertension and nausea, necessitating overnight admission. Post-admission, she endured a cerebrovascular accident primarily impacting the right MCA territory and contributing to left-sided weakness. Subsequent evaluations included MRI and CT head scans that confirmed multiple acute and subacute infarcts. Later complications included progression to an acute small bowel obstruction with perforation, leading to emergent exploratory laparotomy and subsequent ileostomy creation. Cultures from the surgical sites revealed a non-Radha albicans yeast and Strep Viridans Group B infection. The patient continues to require ICU support, primarily due to ongoing septic shock and the need for ventilatory assistance. Patient remains intubated with vasopressors being weaned off. Recent WBC count was 16.9 and hemoglobin levels have fluctuated, dropping as low as 5.9. She has been transitioned to a multi-antibiotic regimen including meropenem, vancomycin, and TPN for nutritional support. 06/04: hemaglobin of 6.9, suspect ongoing blood loss. Preliminary blood cultures are no growth for 48 hours as well as wound and urine cultures with no growth 06/05: hemaglobin of 8.4 after blood transfusion. Repeat cultures of the abdomen is showing no organisms 06/06: Ct pelvis abdomen shows faily stable appearing radio dense contrast in the central mid abdomen with adjacent surgical sutures. Small bowel anacitis. drainage catheter terminating in the pelvis and upper abdomen, stable appearing intraabdominal acities. extensive post-surgical changes that ate unchanged. a small to moderate right mid size plural effusion. Chest x-ray was done and shows no focal consolidation in the lungs 06/07: Chest x-ray done before the excavation, showing pulmonary disease 06/08: Abdominal drain fluids and patients surgical site has been cultured. Removal of catheter tip from yesterday shows staphylococcus and micrococcus , likely skin florac contamination . White count of 12.4 today and will continue to monitor 06/12: has been having persistant fevers for the last 48 hours , chest x-ray appears clear , leukocytosis , fungus was growing from operative cultures , filamentous. Raising possibilities of fuserium esprigilis , penicillium , although these are less likely than radha. suspect that patient is having a rise in fevers due to untreated bacteria . QTC was 405 Plan: 1. Stop Ceftriaxone and flagyl , Start Zosyn 2. Stop micafungin, Start voriconazol 3. Check EKG again in 5 days 3. check blood cultures and check surgical site wound culture 4. Provide ICU support with ventilator for respiratory status and hemodynamic monitoring. 5. Supportive care measures for septic shock, including fluid resuscitation and vasopressor management. 6. Monitor and maintain drainage output. 7. Ensure adequate nutritional support through TPN. 8. Follow-up with surgical team for wound care and any necessary surgical interventions. 9. if hypotension persists, recommend repeating Ct of abdomen in a few days to rule out hematoma 10. monitor patients resopse to all regimens clinically when patient passes bedside swallow 11. monitor white count 12. follow up on cultures of incision site and drainage specimen Authorized and Performed by: toshia ayala MD Total critical care time: Approximately 68 minutes Due to a high probability of clinically significant, life threatening deterioration, the patient required my highest level of preparedness to intervene emergently and I personally spent this critical care time directly and personally managing the patient. This critical care time included obtaining a history; examining the patient; pulse oximetry; ordering and review of studies; arranging urgent treatment with development of a management plan; evaluation of patient's response to treatment; frequent reassessment; and, discussions with other providers. This critical care time was performed to assess and manage the high probability of imminent, life-threatening deterioration that could result in multi-organ failure. It was exclusive of separately billable procedures and treating other patients and teaching time. Plan discussed with: Other Dietary Evaluation Review Comments: 1) Advance pt diet when medically feasible to a 2gmNa diet modified per [employer]ILITY [employer]CE SUPER[employer]OR recommendations 2) Continue current plan of care Expected Outcomes/Goals: 1) Pt diet to advance 2) F/U in 2-3 days TOSHIA AYALA MD Jun 12, 2024 20:50
[2024-06-12] MEDS: HYDROmorphone HCL 2 MG/ML VL/or syr IV PRN (22:07)
[2024-06-13] VITALS (48 sets, daily range): BP systolic 115–158; BP diastolic 24–62; PULSE 75–107; RESP 12–26; TEMP 98.2–98.8; O2SAT 97–100
[2024-06-13 04:30] LABS: Hematocrit 24.4 % (36.0-46.0); Hemoglobin 8.2 g/dL (12.2-16.2); Mean Corpuscular Hemoglobin 29.6 pg (28.0-32.0); Mean Corpuscular Hgb Conc. 33.6 g/dL (32.0-36.0); Mean Corpuscular Volume 88.1 fL (80.0-100.0); Platelet Count (auto) 278 10^3/uL (140-450); Red Blood Cells 2.77 10^6/uL (4.0-5.20); Red Cell Distribution Width 14.5 % (11.8-14.3); White Blood Cell 10.1 10^3/uL (4.4-10.8)
[2024-06-13 04:31] LABS: Band Neutrophils % (manual) 0; Basophils % (manual) 0 (0.0-2.0); Blast Cells 0; Eosinophils % (manual) 0 (0-7); Metamyelocytes % 0; Promyelocytes % 0; Reactive Lymphocytes 0
[2024-06-13 04:49] LABS: Alanine Aminotransferase 16 U/L (7-40); Albumin 3.1 g/dL (3.2-4.8); Alkaline Phosphatase 146 U/L (46-116); Anion Gap 8 (5-15); Aspartate Aminotransferase 15 U/L (13-40); BUN/Creatinine Ratio 54.5 (10.0-20.0); Blood Urea Nitrogen 36 mg/dL (9-23); Calcium 9.4 mg/dL (8.7-10.4); Carbon Dioxide 21 mmol/L (20-31); Chloride 106 mmol/L (98-107); Glucose 144 mg/dL (74-106); Magnesium 2.2 mg/dL (1.6-2.6); Phosphorus 3.9 mg/dL (2.4-5.1); Potassium 4.2 mmol/L (3.5-5.1); Sodium 135 mmol/L (136-145)
[2024-06-13 04:50] LABS: Bilirubin, Total 0.7 mg/dL (0.2-1.0); Total Protein 6.6 g/dL (5.7-8.2)
[2024-06-13 06:45] LABS: Lymphocytes % (manual) 11 (10.0-50.0); Monocytes % (manual) 7 (0-12); Myelocytes % 3; Platelet Estimate Adequate
[2024-06-13 06:46] LABS: Large Platelets FEW
[2024-06-13] MEDS ORDERED: MICAFUNGIN SODIUM 100 MG in SODIUM CHL 0.9% 100 ML IV SCH (10:00)
--- NOTE | 2024-06-13 10:29 | DVHPN2 ---
Progress Note - Dictate Date Seen: Jun 13, 2024 Has the PT tested + for MRSA If YES, has PT been informed?: No Medical Necessity Reason Pt with a Central, PICC or Fol: Yes The following are medically ne: Muhammad Catheter Reason for muhammad catheter: Strict I&O Subjective Ms. Barrera is a 68 years old right-handed female with a history of hypertension, anemia, breast cancer, she was admitted to the [facility] on 05/07/2024 for scheduled hysterectomy and oophorectomy. Post surgically, she woke up with left-sided weakness, and MRI showed multiple stroke in the right MCA territory. During the hospital stay, she developed fall perforation, and she went through abdominal surgery on 05/16/2024 Because of ongoing intraperitoneal sepsis/peritonitis, the patient went through exploratory laparotomy on 05/24/2024 I have seen and examined the patient in the ICU, I have discussed with her nurse. She is awake, oriented to person, place, she knows the year, socially appropriate, looks more generous than yesterday though she was work with her physical therapist She does not move the left arm, but she was able to do so earlier this morning with her physical therapist She keeps spiking temperatures, T-max 99, she has leukocytosis The right pupil still bigger than left side, 4-5 versus 4 mm CBC, 05/16/2024: Metabolic acidosis, 05/17/2024: Metabolic acidosis, 05/18/2024: Metabolic acidosis URINALYSIS, 05/11/2024: WBC: 2, URINE LEUKOCYTE ESTERASE: NEGATIVE WBC/HB/PLT/MCV, 05/04: 5.1/10.7/119/98.3, 05/17/2024: 20.4/8.5/205/86.9 05/19/2024: 12.2/11.1/125/86.2, 05/20/2024: 8.1/10.5/113/86.1, 05/21/2024: 6.6/10.5/106/86.5, 05/26/2024: 9.6/9.2/184/93.8, 05/28/2024: 7.5/7/223/89.6, 05/29/24: 6.8/5.9/251/88.1, 05/30/2024: 7.4/7.7/268/86.6, 06/10/2024: 12.1/9.3/338/88.2 PT/INR/FTT, 05/16/2024: 17.4/1.71/34.2 K, 05/09/2024: 3.9, 05/10/24:3.1, 05/12/2024: 3.4, 05/16/2024: 2.8 Lactic acid, 05/15/2024: 1.6, 05/16/2024: 1.5 HCO3, 05/23/2024: 35 Bun.Cr, 05/23/2024: 37/0.75 LIVER FUNCTION TESTS, 05/12/2024: UNREMARKABLE, 05/16/2024: Unremarkable TBI/AST/ALT/AP, 05/18/2024: 1.2/8/9/47, 05/19/2024: 3.1/04/23/2067, 05/23/2024: 3.1/48/35/170, 05/29/2024: 2.3/29/21/117 TG/HDL/LDL/HDL, 05/12/2024: 196/134/75/23 TSH, 05/12/2024: 2.01 Echocardiogram 05/14/2024: lvef 65% by visual estimate mild mitral regurg RV enlarged mild left atrium enlarged mild Extremity venous study, 06/01/2024: No left upper extremity DVT. Right internal jugular vein and subclavian vein are not visualized secondary to patient positioning. Nonocclusive thrombus is seen in the right axillary vein and brachial vein. Occlusive thrombus is present at the right cephalic vein. Carotid Doppler, 05/11/2024: 1. Occlusion of the right proximal ICA. 2. Greater than 50% stenosis of the right proximal ECA. 3. Greater than 50% stenosis of the left proximal ICA CT head, 05/11/2024: 1. Chronic lacunar infarct in right centrum semiovale. 2. Chronic periventricular ischemic changes. 3. Cerebral and cerebellar atrophy, likely age-related. 4. Advised further evaluation with MRI brain without contrast if clinically indicated CT abdomen/pelvis, 05/15/2024: Small bowel obstruction with evidence of perforation including free intraperitoneal fluid and air. Extensive subcutaneous emphysema likely secondary to bowel perforation CT abdomen/pelvis, 05/16/2024: 1. Sequelae of recent postsurgical changes as described above. Correlate with surgical history. 2. Pneumoperitoneum and free fluid in the abdomen and pelvis. 3. Large collection containing fluid and gas, predominantly in the right hemiabdomen. There is GI contrast extending into this collection from an adjacent small bowel loop. There is a component of this collection extending adjacent to the anterior superior aspect of the liver. 4. Moderate right hydronephrosis and hydroureter. The distal right ureter appears to be compressed by the large fluid collection in the right hemiabdomen. No obstructing calculus. 5. Dilated small bowel loops in the left hemiabdomen with suspected small-bowel obstruction. 6. Prominent subcutaneous edema in the ventral abdominal wall and extending caudally into the inguinal regions bilaterally, peroneal region, and anterior aspect of the left thigh. 7. Small bilateral pleural effusions with overlying atelectasis. 8. Additional findings as detailed above. CT abdomen, 05/23/2024: Postsurgical changes of the ventral abdomen with interval improvement in the diffuse soft tissue edema and ventral abdominal, pelvis and upper thigh subcutaneous emphysema. Interval significant decrease in size of the loculated collection within the right hemiabdomen and pelvis with small residual. Interval placement of drainage catheters terminating over the left upper abdominal quadrant and left hemipelvis as detailed above. Interval development of small to moderate ascites. Wall thickening of fluid-filled nondistended small bowel loops of the anterior mid to lower abdomen which may be from the surrounding ascites versus enteritis. Additional findings as above CT abdomen staff pelvis, 05/30/2024: 1. Radiodense contrast in the mid abdomen associated with surgical sutures. It is unclear whether this is in bowel or represents a bowel leak. Clinical correlation and continued follow-up is recommended. 2. Right pelvic, anterior abdominal wall and left abdomen drainage catheters in place. No definite abscess identified. 3. Extensive post postsurgical changes of the bowel. 4. Small amount of abdominal and pelvic ascities. 5. Small to moderate right pleural effusion. CTA neck, head, 05/14/24: 1. Complete occlusion of the right cervical internal carotid artery. There may be trickle flow in distal right cervical ICA. 2. Poor flow in the right intracranial ICA likely retrograde perfusion through the contralateral left side posterior circulation through the communicating arteries. 3. High-grade stenosis at the left carotid bulb with at least 70-80% stenosis. Moderate short-segment stenosis in the left proximal ICA with at least 60% stenosis. MRI HEAD, 05/11/2024: 1. Multiple foci of restricted diffusion in the right centrum semiovale and along the right superior frontal lobe compatible with acute to subacute infarcts. There is no evidence of acute hemorrhage or significant surrounding edema. 2. Absence of flow void in the intracranial portions of the right internal carotid artery which is likely occluded. vital signs Vital Sign Date Time Temp Pulse Resp B/P (MAP) Pulse Ox O2 Delivery O2 Flow Rate FiO2 06/13/24 10:00 85 06/13/24 10:00 24 100 Nasal Cannula* 2 28 06/13/24 08:30 141/52 (81) 06/13/24 08:00 98.2 98.2 Total Intake and Output 06/12/24 06/12/24 06/13/24 15:00 23:00 07:00 Intake Total 684 ml 1064 ml 684 ml Output Total 1140 ml 1575 ml Balance 684 ml -76 ml -891 ml medications Current Medications Medications Dose Ordered Sig/Nora Route Start Time Stop Time Status Last Admin Dose Admin Acetaminophen 650 mg Q6HPRN PRN WV 05/16/24 22:30 06/09/24 22:15 650 MG Pantoprazole Sodium 40 mg DAILY IV 05/17/24 10:00 06/12/24 10:58 40 MG Amino Acids 0 ml @ 0 mls/hr PER PHARMACY IV 05/17/24 08:30 Vancomycin HCl 0 ml @ 0 mls/hr UD IV 05/18/24 07:45 Cancel Norepinephrine Bitartrate 32 mg/ Sodium Chloride 250 ml @ 0.938 mls/ hr Q24H IV 05/18/24 16:00 06/04/24 12:06 0.938 MLS/HR Potassium Chloride 100 ml @ 50 mls/hr Q2H IV 05/22/24 12:30 05/22/24 16:29 Cancel Diagnostic Test (Pha) 1 strip Q6HR 05/24/24 12:00 06/13/24 05:58 1 STRIP Insulin Human Regular FOLLOW SLIDING SCALE Q6HR SC 05/24/24 12:00 06/13/24 05:59 4 UNITS Dextrose 50 ml UD IV 05/24/24 12:00 Enoxaparin Sodium 70 mg Q12HR SC 06/01/24 22:00 06/12/24 22:03 70 MG Labetalol HCl 10 mg Q2HPRN PRN IV 06/02/24 07:45 06/09/24 09:39 10 MG Metoprolol Tartrate 4 mg Q6HR IV 06/08/24 12:00 06/12/24 06:07 4 MG Hydralazine HCl 10 mg Q4HPRN PRN IV 06/08/24 12:45 Ondansetron HCl 4 mg Q4HPRN PRN IV 06/09/24 13:30 06/10/24 16:14 4 MG Nicotine 1 patch DAILY TD 06/11/24 10:00 06/12/24 10:59 1 PATCH Fluticasone Propionate 50 mcg Q12HR EACHNOSTRI 06/11/24 22:00 06/12/24 22:02 50 MCG Fat Emulsion Intravenous 100 ml/Sodium Acetate 40 meq/Sodium Phosphate 10 meq/ Potassium Chloride 40 meq/ Potassium Phosphate 22 meq/ Magnesium Sulfate 18 meq/ Multivitamins 10 ml/Chromium/ Copper/Manganese/ Zinc 1 ml/Insulin Human Regular 28 units/Amino Acids/ Dextrose/Purified Water 1,763.28 ml @ 73 mls/hr [id number] IV 06/12/24 20:00 06/13/24 19:59 06/12/24 20:18 73 MLS/HR Piperacillin Sod/ Tazobactam Sod 100 ml @ 25 mls/hr Q8HR IV 06/12/24 15:45 06/13/24 06:00 25 MLS/HR Micafungin Sodium 100 mg/Sodium Chloride 100 ml @ 100 mls/hr DAILY IV 06/13/24 10:00 Voriconazole 200 mg/Dextrose 270 ml @ 135 mls/hr Q12H IV 06/13/24 20:00 Hydromorphone HCl 0.25 mg Q6HPRN PRN IV 06/12/24 18:30 06/13/24 06:20 0.25 MG Fat Emulsion Intravenous 100 ml/Sodium Acetate 50 meq/Sodium Phosphate 10 meq/ Potassium Chloride 30 meq/ Potassium Phosphate 22 meq/ Magnesium Sulfate 18 meq/ Multivitamins 10 ml/Chromium/ Copper/Manganese/ Zinc 1 ml/Insulin Human Regular 28 units/Amino Acids/ Dextrose/Purified Water 1,763.28 ml @ 73 mls/hr [id number] IV 06/13/24 20:00 06/14/24 19:59 objective General: the patient is well developed and nourished. No acute distress. ABDOMEN: Status post surgery MENTAL STATUS: Subjective. CRANIAL NERVES: Pupils are round and reactive, mild left eyelid ptosis. normal external eye movement, normal sensation and motor examination in the lateral trigeminal nerve distribution, no facial weakness. No abnormal vascular dilatation in the face, eye, no abnormal facial skin secretion SENSATION: Okay to pinprick and light touch MOTOR: Normal tone in the upper and lower extremity. Normal muscle bulk. No fasciculations. She can move the right arm and the legs REFLEXES: Deep tendon reflexes are symmetrical. No pathological reflexes. CEREBELLAR/COORDINATION: Deferred GAIT/STATION: deferred. laboratory and microbiology Laboratory Tests 06/13/24 03:59 Test 06/13/24 03:59 Range/Units Serum Glucose 144 H 74-106 mg/dL Problem List Pelvic prolapse, can count urethrovesical junction, surgery repair on 05/07/2024 (Robotic supracervical hysterectomy bilateral salpingo-oophorectomy colposcopic pexy cystocele repair urethral sling partial vaginectomy) Bowel obstruction with perforation, intra-abdominal abscess, dense at [place], status post surgery 05/16/2024 Sepsis/septic shock Metabolic encephalopathy Acute right MCA territory multiple strokes Left hemiparesis Right ICA occlusion Left ICA severe stenosis Anemia, with unstable H&H Status post oophorectomy, hysterectomy Anisocoria, maybe related to her carotid he was sclerosis DVT Assessment/Plan Monitoring Supportive treatment ICU care Stabilize vitals Respiratory support IV antibiotics Oxygen Lovenox 70 mg subQ b.i.d. TPN GI prophylaxis Further address bilateral carotid stenosis CLARA on discharge Surgery on case Okay to use Lovenox for DVT from neurologic point of view More recommendation per clinical course This medical document was created using an electronic medical record system with [email or web address] system. Although this document has been carefully reviewed, there may still be some phonetic and typographical errors. These areas are purely typographical due to imperfections of the software programs, and do not reflect any compromise in the patient's medical care Prognosis poor Dietary Evaluation Review Comments: 1) Advance pt diet when medically feasible to a 2gmNa diet modified per SENIOR IT RECRUITER recommendations 2) Continue current plan of care Expected Outcomes/Goals: 1) Pt diet to advance 2) F/U in 2-3 days Plan discussed with: Other BRYAN FLORES MD Jun 13, 2024 10:29
[2024-06-13] MEDS ORDERED: METOPROLOL TARTRATE 1MG/1ML-5ML VIAL IV PRN (10:45)
[2024-06-13] MEDS: HYDROmorphone HCL 2 MG/ML VL/or syr IV PRN (12:28)
--- NOTE | 2024-06-13 14:44 | DVHPN2 ---
Subjective Doing well No new complaints Stable Reviewed: Care Plan, H&P, Labs, Medications, Previous Orders, Radiology Changes from previous H/P or p: Changes General: Per HPI Eyes: No Pain, No Vision change, No Conjunctivae inflammation, No Eyelid inflammation, No Other, No Redness ENT: No Ear pain, No Ear discharge, No Nose pain, No Nose discharge, No Nose congestion, No Mouth pain, No Mouth swelling, No Throat pain, No Throat swelling, No Other Cardiovascular: No Chest Pain, No Palpitations, No Orthopnea, No Paroxysmal Noc. Dyspnea, No Edema, No Lt Headedness, No Other Respiratory: No Cough, No Dry, No Shortness of breath, No SOB with excertion, No Wheezing, No Hemoptysis, No Pleuritic Pain, No Sputum, No Other Gastrointestinal: Nausea Genitourinary: No Dysuria, No Frequency, No Incontinence, No Hematuria, No Retention, No Other Musculoskeletal: No other, No neck pain, No shoulder pain, No arm pain, No back pain, No hand pain, No leg pain, No foot pain Skin: No Rash, No Lesions, No Jaundice, No Bruising, No Other Objective Vitals Vital Signs Date Time Temp Pulse Resp B/P (MAP) Pulse Ox O2 Delivery O2 Flow Rate FiO2 06/13/24 14:00 104 06/13/24 14:00 16 98 Room Air* 0 21 06/13/24 13:30 120/50 (73) 06/13/24 12:00 98.2 98.2 Intake/Output Intake and Output 06/13/24 07:00 Intake Total 2432 ml Output Total 2715 ml Balance -283 ml IV Total 2432 ml Output Urine Total 1675 ml Gastric Drainage Total 935 ml Drainage Total 60 ml Other 45 ml # Bowel Movements 1 General Appearance: moderate distress, Other (Intubated and sedated) HEENT: Atraumatic, PERRLA, Other (Pupils equal, 4 mm, reactive to light to 3 mm) Lungs: Clear to auscultation, Normal air movement, Other (Mechanical ventilation) Cardiovascular: Regular rate, Normal S1, Normal S2 Abdomen: Other (Ileostomy with drainage. 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) Skin: Dry, Intact, Other (Surgical incision dry and intact) Psych/Mental Status: Mental status NL, Mood NL Medications Current Medications Medications Dose Ordered Sig/Nora Route Start Time Stop Time Status Last Admin Dose Admin Acetaminophen 650 mg Q6HPRN PRN MN 05/16/24 22:30 06/09/24 22:15 650 MG Pantoprazole Sodium 40 mg DAILY IV 05/17/24 10:00 06/13/24 10:46 40 MG Amino Acids 0 ml @ 0 mls/hr PER PHARMACY IV 05/17/24 08:30 Vancomycin HCl 0 ml @ 0 mls/hr UD IV 05/18/24 07:45 Cancel Norepinephrine Bitartrate 32 mg/ Sodium Chloride 250 ml @ 0.938 mls/ hr Q24H IV 05/18/24 16:00 06/04/24 12:06 0.938 MLS/HR Potassium Chloride 100 ml @ 50 mls/hr Q2H IV 05/22/24 12:30 05/22/24 16:29 Cancel Diagnostic Test (Pha) 1 strip Q6HR 05/24/24 12:00 06/13/24 12:21 1 STRIP Insulin Human Regular FOLLOW SLIDING SCALE Q6HR SC 05/24/24 12:00 06/13/24 12:26 8 UNITS Dextrose 50 ml UD IV 05/24/24 12:00 Enoxaparin Sodium 70 mg Q12HR SC 06/01/24 22:00 06/13/24 10:46 70 MG Labetalol HCl 10 mg Q2HPRN PRN IV 06/02/24 07:45 06/09/24 09:39 10 MG Hydralazine HCl 10 mg Q4HPRN PRN IV 06/08/24 12:45 Ondansetron HCl 4 mg Q4HPRN PRN IV 06/09/24 13:30 06/10/24 16:14 4 MG Nicotine 1 patch DAILY TD 06/11/24 10:00 06/13/24 10:47 1 PATCH Fluticasone Propionate 50 mcg Q12HR EACHNOSTRI 06/11/24 22:00 06/13/24 10:46 50 MCG Fat Emulsion Intravenous 100 ml/Sodium Acetate 40 meq/Sodium Phosphate 10 meq/ Potassium Chloride 40 meq/ Potassium Phosphate 22 meq/ Magnesium Sulfate 18 meq/ Multivitamins 10 ml/Chromium/ Copper/Manganese/ Zinc 1 ml/Insulin Human Regular 28 units/Amino Acids/ Dextrose/Purified Water 1,763.28 ml @ 73 mls/hr [id number] IV 06/12/24 20:00 06/13/24 19:59 06/12/24 20:18 73 MLS/HR Piperacillin Sod/ Tazobactam Sod 100 ml @ 25 mls/hr Q8HR IV 06/12/24 15:45 06/13/24 13:39 25 MLS/HR Voriconazole 200 mg/Dextrose 270 ml @ 135 mls/hr Q12H IV 06/13/24 20:00 Fat Emulsion Intravenous 100 ml/Sodium Acetate 60 meq/Potassium Acetate 30 meq/ Potassium Phosphate 22 meq/ Magnesium Sulfate 12 meq/ Multivitamins 10 ml/Chromium/ Copper/Manganese/ Zinc 1 ml/Insulin Human Regular 28 units/Amino Acids/ Dextrose/Purified Water 1,764.28 ml @ 73 mls/hr [id number] IV 06/13/24 20:00 06/14/24 19:59 Micafungin Sodium 100 mg/Dextrose 100 ml @ 100 mls/hr DAILY IV 06/14/24 10:00 Hydromorphone HCl 0.5 mg Q6HPRN PRN IV 06/13/24 11:00 06/13/24 12:28 0.5 MG Metoprolol Tartrate 4 mg Q6HPRN PRN IV 06/13/24 10:45 Laboratory Results Laboratory Tests 06/13/24 03:59 Chemistry Test 06/13/24 03:59 Albumin 3.1 g/dL (3.2-4.8) L Calcium Level 9.4 mg/dL (8.7-10.4) Magnesium Level 2.2 mg/dL (1.6-2.6) Phosphorus Level 3.9 mg/dL (2.4-5.1) Total Protein 6.6 g/dL (5.7-8.2) LFT Test 06/13/24 03:59 Alanine Aminotransferase (ALT) 16 U/L (7-40) Alkaline Phosphatase 146 U/L (46-116) H Aspartate Amino Transferase (AST) 15 U/L (13-40) Total Bilirubin 0.7 mg/dL (0.2-1.0) Urinalysis Test 05/11/24 16:18 Urine Color Yellow (Yellow) Urine Clarity Clear (Clear) Urine pH 6.0 (5.0-9.0) Urine Specific [place] 1.020 (1.001-1.035) Urine Protein 1+ (Negative) H Urine Ketones 4+ (Negative) H Urine Blood Trace /uL (Negative) H Urine Nitrite Negative (Negative) Urine Bilirubin Negative (Negative) Urine Urobilinogen Normal mg/dL (Negative) Urine Leukocyte Esterase Negative /uL (Negative) Urine RBC 2 /hpf (0 - 4) Urine WBC 2 /hpf (0 - 5) Urine Squamous Epithelial Cells Few /hpf (<5) Urine Bacteria None seen /hpf (None Seen) Urine Mucus Few (None Seen) Urine Glucose Normal mg/dL (Normal) Microbiology Microbiology Date/Time Source Procedure Growth Status 06/07/24 03:00 Abdomen Gram Stain - Final Complete 06/07/24 03:00 Abdomen Wound Culture - Final Complete 06/06/24 16:07 Blood Blood Culture - Final NO GROWTH AFTER 5 DAYS OF INCUBATION. Complete 06/06/24 14:23 Urine - [place] Urine Culture - Final Complete 05/16/24 14:20 Sputum Gram Stain - Final Complete 05/16/24 14:20 Respiratory Culture - Final Yeast, not [place] albicans Complete Assessment/Plan Assessment/Plan Robotic surgery hysterectomy and salpingo-oophorectomy complicated by Acute CVA Acute CVA w LUE hemiparesis Bowel perforation with repeat exploratory laparotomy with ileostomy creation History of breast cancer with bilateral mastectomies Afib RVR Acute hypoxic respiratory failure Mechanical intubation Exploratory laparotomy, drainage of intraabdominal abscess, thorough peritoneal lavage with reinforcement of the anastomotic location of the previous anastomosis as well as a diverting loop ileostomy on 05/24/24 Anemia Right upper extremity DVT Plan Mechanical ventilation TPN IV antibiotics: Vancomycin + Meropenem No vasopressors Sedation prn GI Prophylaxis: Protonix Transfuse blood prn 05/29/24: Transfuse 1 unit RBCs for Hb 5.9 Lasix 20 mg IV x1 Check Hb after transfusion Off pressors Antibiotics: Meropenem, Vanco, Micafungin Amiodarone IV Taper sedation down as tolerated CXR: Clear TPN Protonix 05/30/24: Discussed with Dr. Fritz Lake Will do CT ABD pelvis to follow up on abscess IV antibiotics Taper sedation down C-PAP? per Dr. Poon 05/31/24: CT abdomen showed no fluid collection IV antibiotics: Meropenem, Vancomycin & Micafungin Amiodarone Dr. Fritz Lake recommended to continue medical treatment, no surgical intervention Sedation as needed TPN 06/01/2024: Start Lovenox 70 mg subQ q.[address] Lake and Neurology IV antibiotics meropenem and vancomycin Micafungin TPN Tapered down sedation as tolerated 06/02/24: Fever Yeast in cultures: Micafungin IV antibiotics: Meropenem & Vanco TPN RUE DVT: Lovenox Normocytic anemia 7.9 Consult ID [place] Cultures Afib: Amiodarone drip Discussed with her sister over the phone 06/03/2024: IV antibiotics: Meropenem and vancomycin IV antifungal: Micafungin TPN Amiodarone IV Dr. Fritz Lake for surgery is on the case 06/04/24: Abdominal infection: IV antibiotics: Meropenem, Vanco and Micafungin TPN Amiodarone Surgery on case: Will discuss with Dr. Fritz Lake regarding tracheostomy ID consult is pending Discussed with sister over the phone, family is agreeable with the trach Anemia: Transfuse one unit RBCs 06/05/24: Hypokalemia: Replace IV antibiotics: Meropenem and Vanco IV antifungals: Micafungin TPN Amiodarone Discussed with Dr. Lake regarding tracheostomy Remove central line PICC line 06/06/24: Repeat CT abdomen & pelvis Discussed with her sister Lianet over the phone Discussed the advance directives She stated that patient as stated before that she wants to be treated but only if she becomes a vegetable then she would stop the treatment The family for now would like to continue treatment We will get a new blood and urine and sputum cultures Continue IV antibiotics and IV antifungal Dr. Lake is evaluating the patient for possible tracheostomy in the next few days 06/07/2024: Off sedation CPAP trial TPN Amiodarone IV antibiotics and antifungals Full code 06/08/24: Afib RVR, start Metoprolol IV scheduled dose Amiodarone is off HTN: Hydralazine Rocephin Flagyl Micafungin TPN NGT to suction Lovenox Hydralazine 06/09/24: Continue current Tx IV antibiotics Metoprolol IV NPO Tube suction 06/11/2024: Patient is stable Fever: Continue IV antibiotics : Rocephin, Flagyl, micafungin Abdominal infection Acute CVA with left sided weakness Atrial fibrillation Hypertension TPN Lovenox IV metoprolol IV Protonix Discussed with her sister over the phone Nicotine patch 06/12/2024 Continue current management Downgrade to the FLYNN NPO TPN 06/13/24: Swallow eval Downgrade to FLYNN Start clear liquids if she can swallow IV antibiotics PRN Metoprolol for HR>110 Hydralazine for BP Plan discussed with: Patient My Orders Orders - BARI MOORE MD Procedure Category Date Status Time Hydromorphone PHA 06/13/24 In Process Injection (Dilaudid 11:00 Metoprolol Inj PHA 06/13/24 In Process (Lopressor) 10:45 Date of Service: Jun 13, 2024 Billing Provider: BARI MOORE MD Common Visit Codes: NOT BILLABLE BARI MOORE MD Jun 13, 2024 14:44
[2024-06-13] MEDS: VORICONAZOLE INJ 200 MG in D5W 5% 250 ML IV SCH (19:38)
[2024-06-13] MEDS: TPN PER PHARMACY IV NR (19:41)
[2024-06-13] MEDS: TEMAZEPAM 15 MG CAP PO PRN (19:53)
--- NOTE | 2024-06-13 21:33 | DVHPN2 ---
Consult Progress Note Date Seen: Jun 13, 2024 Subjective Patient reports: Feels better (no fevers today , denies any abdominal pain , normal active bowel sounds, breathing well on room air and tolerating antibiotics changes) Objective vital signs Vital Sign Date Time Temp Pulse Resp B/P (MAP) Pulse Ox O2 Delivery O2 Flow Rate FiO2 06/13/24 20:30 96 16 142/45 (77) 100 06/13/24 20:00 Room Air* 0 21 06/13/24 20:00 98.8 98.8 Total Intake and Output 06/12/24 06/12/24 06/13/24 14:59 22:59 06:59 Intake Total 684 ml 1064 ml 684 ml Output Total 1140 ml 1575 ml Balance 684 ml -76 ml -891 ml medications Current Medications Medications Dose Ordered Sig/Nora Route Start Time Stop Time Status Last Admin Dose Admin Acetaminophen 650 mg Q6HPRN PRN ME 05/16/24 22:30 06/09/24 22:15 650 MG Pantoprazole Sodium 40 mg DAILY IV 05/17/24 10:00 06/13/24 10:46 40 MG Amino Acids 0 ml @ 0 mls/hr PER PHARMACY IV 05/17/24 08:30 Vancomycin HCl 0 ml @ 0 mls/hr UD IV 05/18/24 07:45 Cancel Norepinephrine Bitartrate 32 mg/ Sodium Chloride 250 ml @ 0.938 mls/ hr Q24H IV 05/18/24 16:00 06/04/24 12:06 0.938 MLS/HR Potassium Chloride 100 ml @ 50 mls/hr Q2H IV 05/22/24 12:30 05/22/24 16:29 Cancel Diagnostic Test (Pha) 1 strip Q6HR 05/24/24 12:00 06/13/24 17:47 1 STRIP Insulin Human Regular FOLLOW SLIDING SCALE Q6HR SC 05/24/24 12:00 06/13/24 17:49 2 UNITS Dextrose 50 ml UD IV 05/24/24 12:00 Enoxaparin Sodium 70 mg Q12HR SC 06/01/24 22:00 06/13/24 10:46 70 MG Labetalol HCl 10 mg Q2HPRN PRN IV 06/02/24 07:45 06/09/24 09:39 10 MG Hydralazine HCl 10 mg Q4HPRN PRN IV 06/08/24 12:45 Ondansetron HCl 4 mg Q4HPRN PRN IV 06/09/24 13:30 06/10/24 16:14 4 MG Nicotine 1 patch DAILY TD 06/11/24 10:00 06/13/24 10:47 1 PATCH Fluticasone Propionate 50 mcg Q12HR EACHNOSTRI 06/11/24 22:00 06/13/24 10:46 50 MCG Piperacillin Sod/ Tazobactam Sod 100 ml @ 25 mls/hr Q8HR IV 06/12/24 15:45 06/13/24 13:39 25 MLS/HR Voriconazole 200 mg/Dextrose 270 ml @ 135 mls/hr Q12H IV 06/13/24 20:00 06/13/24 19:38 135 MLS/HR Fat Emulsion Intravenous 100 ml/Sodium Acetate 60 meq/Potassium Acetate 30 meq/ Potassium Phosphate 22 meq/ Magnesium Sulfate 12 meq/ Multivitamins 10 ml/Chromium/ Copper/Manganese/ Zinc 1 ml/Insulin Human Regular 28 units/Amino Acids/ Dextrose/Purified Water 1,764.28 ml @ 73 mls/hr [id number] IV 06/13/24 20:00 06/14/24 19:59 06/13/24 19:41 73 MLS/HR Micafungin Sodium 100 mg/Dextrose 100 ml @ 100 mls/hr DAILY IV 06/14/24 10:00 Hydromorphone HCl 0.5 mg Q6HPRN PRN IV 06/13/24 11:00 06/13/24 12:28 0.5 MG Metoprolol Tartrate 4 mg Q6HPRN PRN IV 06/13/24 10:45 Temazepam 15 mg HS PRN PO 06/13/24 15:15 06/13/24 19:53 15 MG Physical Exam: - General: NAD. last drainage output was 85ccs - Neck: Supple. No masses. - HEENT: PERRL. Normal lids and conjunctiva. Moist mucous membranes. Oropharynx without lesions, exudates or excessive erythema. Normal appearance of the external aspects of the nose and ears. - Heart: Regular rhythm, normal rate. No murmur. No lower extremity edema. - Lungs: Normal respiratory effort. Clear to auscultation bilaterally. No wheezes. No crackles. - Abdomen: Soft. Non-tender. minimally distended. No masses or abdominal hernia. abdominal pain. increased drainage from surgical incision site at the inferior part - MSK: No digital cyanosis. Normal strength and tone in all 4 limbs. - Skin: Warm and dry, no rashes. fevers. - Neuro: Alert. No facial droop or slurred speech. EO movements intact. Sensation intact to soft touch in all 4 limbs. L sided weakness in UE and LE - Psych: Appropriate mood laboratory and microbiology Laboratory Tests 06/13/24 03:59 Test 06/13/24 03:59 Range/Units Serum Glucose 144 H 74-106 mg/dL Problem List/Assessment/Plan Problems(with codes): (1) Fungal infection (2) Intra-abdominal abscess (3) SBO (small bowel obstruction) (4) Stroke (5) Anemia (6) Breast cancer (7) Hypertension Problem List/Assessment/Plan Assessment and Plan: ID Problem List: 1. Small bowel obstruction with perforation 2. Septic shock 3. Stroke, right MCA territory 4. Hypertension 5. Anemia 6. Breast cancer 7. Bilateral mastectomy 8. Post-surgical complications (including ileostomy creation) 9. Fungal infection (yeast not Radha albicans) 10. Strep Viridans Group B infection Assessment: This is a 68-year-old female, with a significant past medical history of anemia, hypertension, breast cancer status post bilateral mastectomy, and a 50 pack-year smoking history (now quit), who was initially admitted for a robotic hysterectomy with bilateral salpingectomy, removal of a right ovarian mass, cystocele repair with urethral sling. Postoperatively, she developed hypertension and nausea, necessitating overnight admission. Post-admission, she endured a cerebrovascular accident primarily impacting the right MCA territory and contributing to left-sided weakness. Subsequent evaluations included MRI and CT head scans that confirmed multiple acute and subacute infarcts. Later complications included progression to an acute small bowel obstruction with perforation, leading to emergent exploratory laparotomy and subsequent ileostomy creation. Cultures from the surgical sites revealed a non-Radha albicans yeast and Strep Viridans Group B infection. The patient continues to require ICU support, primarily due to ongoing septic shock and the need for ventilatory assistance. Patient remains intubated with vasopressors being weaned off. Recent WBC count was 16.9 and hemoglobin levels have fluctuated, dropping as low as 5.9. She has been transitioned to a multi-antibiotic regimen including meropenem, vancomycin, and TPN for nutritional support. 06/04: hemaglobin of 6.9, suspect ongoing blood loss. Preliminary blood cultures are no growth for 48 hours as well as wound and urine cultures with no growth 06/05: hemaglobin of 8.4 after blood transfusion. Repeat cultures of the abdomen is showing no organisms 06/06: Ct pelvis abdomen shows faily stable appearing radio dense contrast in the central mid abdomen with adjacent surgical sutures. Small bowel anacitis. drainage catheter terminating in the pelvis and upper abdomen, stable appearing intraabdominal acities. extensive post-surgical changes that ate unchanged. a small to moderate right mid size plural effusion. Chest x-ray was done and shows no focal consolidation in the lungs 06/07: Chest x-ray done before the excavation, showing pulmonary disease 06/08: Abdominal drain fluids and patients surgical site has been cultured. Removal of catheter tip from yesterday shows staphylococcus and micrococcus , likely skin florac contamination . White count of 12.4 today and will continue to monitor 06/12: has been having persistant fevers for the last 48 hours , chest x-ray appears clear , leukocytosis , fungus was growing from operative cultures , filamentous. Raising possibilities of fuserium esprigilis , penicillium , although these are less likely than radha. suspect that patient is having a rise in fevers due to untreated bacteria . QTC was 405 06/13: Blood cultures are no growth todate x 24hrs Plan: 1. Start Zosyn 2. Start voriconazol 3. Check EKG again in 5 days 3. check blood cultures and check surgical site wound culture 4. Provide ICU support with ventilator for respiratory status and hemodynamic monitoring. 5. Supportive care measures for septic shock, including fluid resuscitation and vasopressor management. 6. Monitor and maintain drainage output. 7. Ensure adequate nutritional support through TPN. 8. Follow-up with surgical team for wound care and any necessary surgical interventions. 9. if hypotension persists, recommend repeating Ct of abdomen in a few days to rule out hematoma 10. monitor patients resopse to all regimens clinically when patient passes bedside swallow 11. monitor white count 12. follow up on cultures of incision site and drainage specimen Authorized and Performed by: toshia ayala MD Total critical care time: Approximately 68 minutes Due to a high probability of clinically significant, life threatening deterioration, the patient required my highest level of preparedness to intervene emergently and I personally spent this critical care time directly and personally managing the patient. This critical care time included obtaining a history; examining the patient; pulse oximetry; ordering and review of studies; arranging urgent treatment with development of a management plan; evaluation of patient's response to treatment; frequent reassessment; and, discussions with other providers. This critical care time was performed to assess and manage the high probability of imminent, life-threatening deterioration that could result in multi-organ failure. It was exclusive of separately billable procedures and treating other patients and teaching time. Plan discussed with: Other Dietary Evaluation Review Comments: 1) Advance pt diet when medically feasible to a 2gmNa diet modified per ADULT HEALTH CLINICAL NURSE SPECIALIST recommendations 2) Continue current plan of care Expected Outcomes/Goals: 1) Pt diet to advance 2) F/U in 2-3 days TOSHIA AYALA MD Jun 13, 2024 21:33
--- NOTE | 2024-06-13 22:23 | DVHPN2 ---
Progress Note - Dictate Date Seen: Jun 13, 2024 Has the PT tested + for MRSA If YES, has PT been informed?: No Medical Necessity Reason Pt with a Central, PICC or Fol: Yes The following are medically ne: Muhammad Catheter Reason for muhammad catheter: Strict I&O Subjective Patient seen and examined at bedside. Breathing on room air. Overnight events reviewed. vital signs Vital Sign Date Time Temp Pulse Resp B/P (MAP) Pulse Ox O2 Delivery O2 Flow Rate FiO2 06/13/24 22:00 95 06/13/24 22:00 18 98 Room Air* 0 21 06/13/24 22:00 130/54 (79) 06/13/24 20:00 98.8 98.8 Total Intake and Output 06/12/24 06/12/24 06/13/24 15:00 23:00 07:00 Intake Total 684 ml 1064 ml 684 ml Output Total 1140 ml 1575 ml Balance 684 ml -76 ml -891 ml medications Current Medications Medications Dose Ordered Sig/Nora Route Start Time Stop Time Status Last Admin Dose Admin Acetaminophen 650 mg Q6HPRN PRN ID 05/16/24 22:30 06/09/24 22:15 650 MG Pantoprazole Sodium 40 mg DAILY IV 05/17/24 10:00 06/13/24 10:46 40 MG Amino Acids 0 ml @ 0 mls/hr PER PHARMACY IV 05/17/24 08:30 Vancomycin HCl 0 ml @ 0 mls/hr UD IV 05/18/24 07:45 Cancel Norepinephrine Bitartrate 32 mg/ Sodium Chloride 250 ml @ 0.938 mls/ hr Q24H IV 05/18/24 16:00 06/04/24 12:06 0.938 MLS/HR Potassium Chloride 100 ml @ 50 mls/hr Q2H IV 05/22/24 12:30 05/22/24 16:29 Cancel Diagnostic Test (Pha) 1 strip Q6HR 05/24/24 12:00 06/13/24 17:47 1 STRIP Insulin Human Regular FOLLOW SLIDING SCALE Q6HR SC 05/24/24 12:00 06/13/24 17:49 2 UNITS Dextrose 50 ml UD IV 05/24/24 12:00 Enoxaparin Sodium 70 mg Q12HR SC 06/01/24 22:00 06/13/24 21:59 70 MG Labetalol HCl 10 mg Q2HPRN PRN IV 06/02/24 07:45 06/09/24 09:39 10 MG Hydralazine HCl 10 mg Q4HPRN PRN IV 06/08/24 12:45 Ondansetron HCl 4 mg Q4HPRN PRN IV 06/09/24 13:30 06/10/24 16:14 4 MG Nicotine 1 patch DAILY TD 06/11/24 10:00 06/13/24 10:47 1 PATCH Fluticasone Propionate 50 mcg Q12HR EACHNOSTRI 06/11/24 22:00 06/13/24 21:58 50 MCG Piperacillin Sod/ Tazobactam Sod 100 ml @ 25 mls/hr Q8HR IV 06/12/24 15:45 06/13/24 21:59 25 MLS/HR Voriconazole 200 mg/Dextrose 270 ml @ 135 mls/hr Q12H IV 06/13/24 20:00 06/13/24 19:38 135 MLS/HR Fat Emulsion Intravenous 100 ml/Sodium Acetate 60 meq/Potassium Acetate 30 meq/ Potassium Phosphate 22 meq/ Magnesium Sulfate 12 meq/ Multivitamins 10 ml/Chromium/ Copper/Manganese/ Zinc 1 ml/Insulin Human Regular 28 units/Amino Acids/ Dextrose/Purified Water 1,764.28 ml @ 73 mls/hr [id number] IV 06/13/24 20:00 06/14/24 19:59 06/13/24 19:41 73 MLS/HR Micafungin Sodium 100 mg/Dextrose 100 ml @ 100 mls/hr DAILY IV 06/14/24 10:00 Hydromorphone HCl 0.5 mg Q6HPRN PRN IV 06/13/24 11:00 06/13/24 12:28 0.5 MG Metoprolol Tartrate 4 mg Q6HPRN PRN IV 06/13/24 10:45 Temazepam 15 mg HS PRN PO 06/13/24 15:15 06/13/24 19:53 15 MG objective Gen.: Patient lying in bed in no apparent distress. Breathing on room air. Head: Normocephalic, atraumatic. Eyes: EOMI/PERRLA. Ears: Normal hearing. Normal anatomy. Neck/trachea: Trachea midline, supple. Nose: Normal external anatomy. Mouth: Moist mucous membranes. Chest: Decreased air entry bilaterally. No wheezing or rhonchi. Cardiovascular: Positive S1, positive S2. Regular rate and rhythm. Abdomen: Positive bowel sounds in all 4 quadrants. Soft, non-tender, non- distended. : Deferred. Rectal: Deferred. Skin: Warm, dry. Intact. Extremities: 2+ radial pulses bilaterally. No lower extremity edema. Neuro: Awake, alert, oriented x3. No gross motor or sensory deficits. Cranial nerves II through XII intact. Gait not assessed. laboratory and microbiology Laboratory Tests 06/13/24 03:59 Test 06/13/24 03:59 Range/Units Serum Glucose 144 H 74-106 mg/dL Assessment/Plan Impression: Acute hypoxic respiratory failure Abdominal pain due to recent robotic surgery hysterectomy and salpingo- oophorectomy History of breast cancer with bilateral mastectomies History of bowel surgery and ileostomy Anemia due to hemorrhage on hemodilution Shock Chronic pain syndrome Anemia Atrial fibrillation with RVR Bowel perforation with repeat exploratory laparotomy with ileostomy creation Events: Breathing on room air. No respiratory distress. NG tube has been clamped. Passed swallow eval - pt on puree/thin liquids. F/u Surgery recommendations Incentive spirometry Continue abx - Zosyn. Nasal spray ID recommendations appreciated. TPN for nutritional support Off pressors, hemodynamically stable. Head of bed elevation Aspiration precautions. Upper extremity Doppler showed nonocclusive thrombus in the right axillary vein and brachial vein Currently on enoxaparin 70 mg subcutaneous Blood cultures revealed growth of yeast but not Shawanda albicans Currently on micafungin intravenous, Monitor renal function Monitor electrolytes, supplement as necessary Labs and imaging reviewed Rest of plan as outlined below. Plan: S/p extubation on 06/07 On room air - supplemental oxygen PRN Titrate to keep sats above 92% CXR, ABG reviewed. Pressors as necessary for hemodynamic support Titrate to keep mean arterial pressure greater than 65 mmHg. Continue antibiotics. F/u cultures. Monitor hemoglobin Transfuse if less than 7.0 grams/deciliter Monitor renal function due to Acute kidney injury. Monitor electrolytes. Supplement as necessary. Surgery recommendations appreciated. Nutritional support. On TPN Accucheks, ISS. GI prophylaxis - Pantoprazole 40 DVT prophylaxis- on enoxaparin 70 SC Prognosis: Poor given multiple comorbidities. Condition: Critical. Rest of plan per hospitalist and other consultants. A total of 35 minutes of critical care time was spent reviewing the patient record, examining the patient, making a diagnostic and therapeutic plan, discussing this plan with the medical personnel, following up on diagnostic studies and following the patient for clinical stability excluding any and all procedures. At least 50% of this time was spent in direct, [id number] contact. Thank you Dr Reid for allowing me to participate in this patient's care. Further recommendations will depend on patient's clinical course. Please do not hesitate to contact me if you have any questions or concerns. This medical document was created using an electronic medical record system with [employer] dictation system. Although this document has been carefully reviewed, there may still be some phonetic and typographical errors. These areas are purely typographical due to imperfections of the software programs, and do not reflect any compromise in the patient's medical care. Dietary Evaluation Review Comments: 1) Advance pt diet when medically feasible to a 2gmNa diet modified per [employer] recommendations 2) Continue current plan of care Expected Outcomes/Goals: 1) Pt diet to advance 2) F/U in 2-3 days Plan discussed with: Other (YASH Thompson) Critical Care Time(min): 35 RG LEONE MD Jun 13, 2024 22:23
--- NOTE | 2024-06-13 23:30 | DVHPN2 ---
Progress Note Date Seen: Jun 13, 2024 Has the PT tested + for MRSA If YES, has PT been informed?: No Medical Necessity Reason Pt with a Central, PICC or Fol: Yes The following are medically ne: Muhammad Catheter Reason for muhammad catheter: Strict I&O Objective vital signs Vital Sign Date Time Temp Pulse Resp B/P (MAP) Pulse Ox O2 Delivery O2 Flow Rate FiO2 06/13/24 22:00 95 06/13/24 22:00 18 98 Room Air* 0 21 06/13/24 22:00 130/54 (79) 06/13/24 20:00 98.8 98.8 Total Intake and Output 06/12/24 06/12/24 06/13/24 15:00 23:00 07:00 Intake Total 684 ml 1064 ml 684 ml Output Total 1140 ml 1575 ml Balance 684 ml -76 ml -891 ml medications Current Medications Medications Dose Ordered Sig/Nora Route Start Time Stop Time Status Last Admin Dose Admin Acetaminophen 650 mg Q6HPRN PRN WI 05/16/24 22:30 06/09/24 22:15 650 MG Pantoprazole Sodium 40 mg DAILY IV 05/17/24 10:00 06/13/24 10:46 40 MG Amino Acids 0 ml @ 0 mls/hr PER PHARMACY IV 05/17/24 08:30 Vancomycin HCl 0 ml @ 0 mls/hr UD IV 05/18/24 07:45 Cancel Norepinephrine Bitartrate 32 mg/ Sodium Chloride 250 ml @ 0.938 mls/ hr Q24H IV 05/18/24 16:00 06/04/24 12:06 0.938 MLS/HR Potassium Chloride 100 ml @ 50 mls/hr Q2H IV 05/22/24 12:30 05/22/24 16:29 Cancel Diagnostic Test (Pha) 1 strip Q6HR 05/24/24 12:00 06/13/24 17:47 1 STRIP Insulin Human Regular FOLLOW SLIDING SCALE Q6HR SC 05/24/24 12:00 06/13/24 17:49 2 UNITS Dextrose 50 ml UD IV 05/24/24 12:00 Enoxaparin Sodium 70 mg Q12HR SC 06/01/24 22:00 06/13/24 21:59 70 MG Labetalol HCl 10 mg Q2HPRN PRN IV 06/02/24 07:45 06/09/24 09:39 10 MG Hydralazine HCl 10 mg Q4HPRN PRN IV 06/08/24 12:45 Ondansetron HCl 4 mg Q4HPRN PRN IV 06/09/24 13:30 06/10/24 16:14 4 MG Nicotine 1 patch DAILY TD 06/11/24 10:00 06/13/24 10:47 1 PATCH Fluticasone Propionate 50 mcg Q12HR EACHNOSTRI 06/11/24 22:00 06/13/24 21:58 50 MCG Piperacillin Sod/ Tazobactam Sod 100 ml @ 25 mls/hr Q8HR IV 06/12/24 15:45 06/13/24 21:59 25 MLS/HR Voriconazole 200 mg/Dextrose 270 ml @ 135 mls/hr Q12H IV 06/13/24 20:00 06/13/24 19:38 135 MLS/HR Fat Emulsion Intravenous 100 ml/Sodium Acetate 60 meq/Potassium Acetate 30 meq/ Potassium Phosphate 22 meq/ Magnesium Sulfate 12 meq/ Multivitamins 10 ml/Chromium/ Copper/Manganese/ Zinc 1 ml/Insulin Human Regular 28 units/Amino Acids/ Dextrose/Purified Water 1,764.28 ml @ 73 mls/hr [id number] IV 06/13/24 20:00 06/14/24 19:59 06/13/24 19:41 73 MLS/HR Micafungin Sodium 100 mg/Dextrose 100 ml @ 100 mls/hr DAILY IV 06/14/24 10:00 Hydromorphone HCl 0.5 mg Q6HPRN PRN IV 06/13/24 11:00 06/13/24 12:28 0.5 MG Metoprolol Tartrate 4 mg Q6HPRN PRN IV 06/13/24 10:45 Temazepam 15 mg HS PRN PO 06/13/24 15:15 06/13/24 19:53 15 MG laboratory and microbiology Laboratory Tests 06/13/24 03:59 Test 06/13/24 03:59 Range/Units Serum Glucose 144 H 74-106 mg/dL Microbiology Date/Time Source Procedure Growth Status 06/12/24 16:00 Blood Blood Culture - Preliminary NO GROWTH AFTER 24 HOURS OF INCUBATION. Resulted 06/07/24 03:00 Abdomen Gram Stain - Final Complete 06/07/24 03:00 Abdomen Wound Culture - Final Complete 06/06/24 14:23 Urine - Muhammad [place] Urine Culture - Final Complete 05/16/24 14:20 Sputum Gram Stain - Final Complete 05/16/24 14:20 Respiratory Culture - Final Yeast, not Shawanda albicans Complete Problem List/Assessment/Plan Problem List/Assessment/Plan AFEBRILE VSS WBC WNL ABD SOFT SMALL SMEAR BM DRAINS IN PLACE 5 CC PURULENT L 10 CC PURULENT DRESSING ABD WOUND DRAINAGE LESS CONDITION GUARDED ILEOSTOMY VIABLE AND FUNCTIONAL NURSE AT BEDSIDE CONTINUE SUPPORTIVE CARE DC NG TUBE CONTINUE ID EVAL AND IV ABX NURSE AT BEDSIDE FAMILY AWARE AND UPDATED RE HER ONGOING CARE AND CONDITION Plan discussed with: Other My Orders My Orders Orders - SHEY COVARRUBIAS MD Procedure Category Date Status Time Pureed DIET 06/13/24 Transmitted Dinner Dietary Evaluation Review Comments: 1) Advance pt diet when medically feasible to a 2gmNa diet modified per [employer] recommendations 2) Continue current plan of care Expected Outcomes/Goals: 1) Pt diet to advance 2) F/U in 2-3 days SHEY COVARRUBIAS MD Jun 13, 2024 23:30
[2024-06-14] VITALS (79 sets, daily range): BP systolic 92–151; BP diastolic 27–62; PULSE 79–106; RESP 14–39; TEMP 97.8–99.5; O2SAT 96–100
[2024-06-14 04:19] LABS: Alanine Aminotransferase 15 U/L (7-40); Albumin 3.4 g/dL (3.2-4.8); Alkaline Phosphatase 151 U/L (46-116); Anion Gap 7 (5-15); Aspartate Aminotransferase 13 U/L (13-40); BUN/Creatinine Ratio 46.3 (10.0-20.0); Bilirubin, Total 0.7 mg/dL (0.2-1.0); Blood Urea Nitrogen 31 mg/dL (9-23); Calcium 9.7 mg/dL (8.7-10.4); Carbon Dioxide 22 mmol/L (20-31); Chloride 105 mmol/L (98-107); Glucose 144 mg/dL (74-106); Magnesium 2.1 mg/dL (1.6-2.6); Phosphorus 3.7 mg/dL (2.4-5.1); Potassium 4.3 mmol/L (3.5-5.1); Sodium 134 mmol/L (136-145); Total Protein 6.8 g/dL (5.7-8.2)
[2024-06-14 04:39] LABS: Triglycerides 143 mg/dL (< 150)
--- NOTE | 2024-06-14 09:11 | DVHPN2 ---
Subjective NG tube is out She is on pureed diet Reviewed: Care Plan, H&P, Labs, Medications, Previous Orders, Radiology Changes from previous H/P or p: Changes General: Per HPI Eyes: No Pain, No Vision change, No Conjunctivae inflammation, No Eyelid inflammation, No Other, No Redness ENT: No Ear pain, No Ear discharge, No Nose pain, No Nose discharge, No Nose congestion, No Mouth pain, No Mouth swelling, No Throat pain, No Throat swelling, No Other Cardiovascular: No Chest Pain, No Palpitations, No Orthopnea, No Paroxysmal Noc. Dyspnea, No Edema, No Lt Headedness, No Other Respiratory: No Cough, No Dry, No Shortness of breath, No SOB with excertion, No Wheezing, No Hemoptysis, No Pleuritic Pain, No Sputum, No Other Gastrointestinal: Nausea Genitourinary: No Dysuria, No Frequency, No Incontinence, No Hematuria, No Retention, No Other Musculoskeletal: No other, No neck pain, No shoulder pain, No arm pain, No back pain, No hand pain, No leg pain, No foot pain Skin: No Rash, No Lesions, No Jaundice, No Bruising, No Other Objective Vitals Vital Signs Date Time Temp Pulse Resp B/P (MAP) Pulse Ox O2 Delivery O2 Flow Rate FiO2 06/14/24 06:30 94 31 131/27 (61) 100 06/14/24 06:00 Room Air* 0 21 06/14/24 04:00 98.6 98.6 Intake/Output Intake and Output 06/14/24 07:00 Intake Total 2249 ml Output Total 3712 ml Balance -1463 ml IV Total 2249 ml Output Urine Total 2700 ml Gastric Drainage Total 950 ml Drainage Total 30 ml Other 32 ml General Appearance: moderate distress, Other (Intubated and sedated) HEENT: Atraumatic, PERRLA, Other (Pupils equal, 4 mm, reactive to light to 3 mm) Lungs: Clear to auscultation, Normal air movement, Other (Mechanical ventilation) Cardiovascular: Regular rate, Normal S1, Normal S2 Abdomen: Other (Ileostomy with drainage. EVARISTO to right lower quadrant with thick serosanguineous secretions.) Musculoskeletal: Other (Unable to assess) Extremities: No edema, Other (Poor cap refill to left lower extremity with some cyanosis noted) Neuro: Other (Left arm weakness including [employer] and proximal muscles) Skin: Dry, Intact, Other (Surgical incision dry and intact) Psych/Mental Status: Mental status NL, Mood NL Medications Current Medications Medications Dose Ordered Sig/Nora Route Start Time Stop Time Status Last Admin Dose Admin Acetaminophen 650 mg Q6HPRN PRN MD 05/16/24 22:30 06/09/24 22:15 650 MG Pantoprazole Sodium 40 mg DAILY IV 05/17/24 10:00 06/13/24 10:46 40 MG Amino Acids 0 ml @ 0 mls/hr PER PHARMACY IV 05/17/24 08:30 Vancomycin HCl 0 ml @ 0 mls/hr UD IV 05/18/24 07:45 Cancel Norepinephrine Bitartrate 32 mg/ Sodium Chloride 250 ml @ 0.938 mls/ hr Q24H IV 05/18/24 16:00 06/04/24 12:06 0.938 MLS/HR Potassium Chloride 100 ml @ 50 mls/hr Q2H IV 05/22/24 12:30 05/22/24 16:29 Cancel Diagnostic Test (Pha) 1 strip Q6HR 05/24/24 12:00 06/14/24 06:00 1 STRIP Insulin Human Regular FOLLOW SLIDING SCALE Q6HR SC 05/24/24 12:00 06/14/24 06:06 2 UNITS Dextrose 50 ml UD IV 05/24/24 12:00 Enoxaparin Sodium 70 mg Q12HR SC 06/01/24 22:00 06/13/24 21:59 70 MG Labetalol HCl 10 mg Q2HPRN PRN IV 06/02/24 07:45 06/09/24 09:39 10 MG Hydralazine HCl 10 mg Q4HPRN PRN IV 06/08/24 12:45 Ondansetron HCl 4 mg Q4HPRN PRN IV 06/09/24 13:30 06/10/24 16:14 4 MG Nicotine 1 patch DAILY TD 06/11/24 10:00 06/13/24 10:47 1 PATCH Fluticasone Propionate 50 mcg Q12HR EACHNOSTRI 06/11/24 22:00 06/13/24 21:58 50 MCG Piperacillin Sod/ Tazobactam Sod 100 ml @ 25 mls/hr Q8HR IV 06/12/24 15:45 06/14/24 06:04 25 MLS/HR Voriconazole 200 mg/Dextrose 270 ml @ 135 mls/hr Q12H IV 06/13/24 20:00 06/14/24 08:07 135 MLS/HR Fat Emulsion Intravenous 100 ml/Sodium Acetate 60 meq/Potassium Acetate 30 meq/ Potassium Phosphate 22 meq/ Magnesium Sulfate 12 meq/ Multivitamins 10 ml/Chromium/ Copper/Manganese/ Zinc 1 ml/Insulin Human Regular 28 units/Amino Acids/ Dextrose/Purified Water 1,764.28 ml @ 73 mls/hr [id number] IV 06/13/24 20:00 06/14/24 19:59 06/13/24 19:41 73 MLS/HR Micafungin Sodium 100 mg/Dextrose 100 ml @ 100 mls/hr DAILY IV 06/14/24 10:00 Hydromorphone HCl 0.5 mg Q6HPRN PRN IV 06/13/24 11:00 06/13/24 12:28 0.5 MG Metoprolol Tartrate 4 mg Q6HPRN PRN IV 06/13/24 10:45 Temazepam 15 mg HS PRN PO 06/13/24 15:15 06/13/24 19:53 15 MG Laboratory Results Laboratory Tests 06/13/24 03:59 06/14/24 03:24 Chemistry Test 06/14/24 03:24 Albumin 3.4 g/dL (3.2-4.8) Calcium Level 9.7 mg/dL (8.7-10.4) Magnesium Level 2.1 mg/dL (1.6-2.6) Phosphorus Level 3.7 mg/dL (2.4-5.1) Total Protein 6.8 g/dL (5.7-8.2) Lipid panel Test 06/14/24 03:24 Triglycerides Level 143 mg/dL (< 150) LFT Test 06/14/24 03:24 Alanine Aminotransferase (ALT) 15 U/L (7-40) Alkaline Phosphatase 151 U/L (46-116) H Aspartate Amino Transferase (AST) 13 U/L (13-40) Total Bilirubin 0.7 mg/dL (0.2-1.0) Urinalysis Test 05/11/24 16:18 Urine Color Yellow (Yellow) Urine Clarity Clear (Clear) Urine pH 6.0 (5.0-9.0) Urine Specific [place] 1.020 (1.001-1.035) Urine Protein 1+ (Negative) H Urine Ketones 4+ (Negative) H Urine Blood Trace /uL (Negative) H Urine Nitrite Negative (Negative) Urine Bilirubin Negative (Negative) Urine Urobilinogen Normal mg/dL (Negative) Urine Leukocyte Esterase Negative /uL (Negative) Urine RBC 2 /hpf (0 - 4) Urine WBC 2 /hpf (0 - 5) Urine Squamous Epithelial Cells Few /hpf (<5) Urine Bacteria None seen /hpf (None Seen) Urine Mucus Few (None Seen) Urine Glucose Normal mg/dL (Normal) Microbiology Microbiology Date/Time Source Procedure Growth Status 06/12/24 16:00 Blood Blood Culture - Preliminary NO GROWTH AFTER 24 HOURS OF INCUBATION. Resulted 06/07/24 03:00 Abdomen Gram Stain - Final Complete 06/07/24 03:00 Abdomen Wound Culture - Final Complete 06/06/24 14:23 Urine - [place] Urine Culture - Final Complete 05/16/24 14:20 Sputum Gram Stain - Final Complete 05/16/24 14:20 Respiratory Culture - Final Yeast, not Shawanda albicans Complete Assessment/Plan Assessment/Plan Robotic surgery hysterectomy and salpingo-oophorectomy complicated by Acute CVA Acute CVA w LUE hemiparesis Bowel perforation with repeat exploratory laparotomy with ileostomy creation History of breast cancer with bilateral mastectomies Afib RVR Acute hypoxic respiratory failure Mechanical intubation Exploratory laparotomy, drainage of intraabdominal abscess, thorough peritoneal lavage with reinforcement of the anastomotic location of the previous anastomosis as well as a diverting loop ileostomy on 05/24/24 Anemia Right upper extremity DVT Plan Mechanical ventilation TPN IV antibiotics: Vancomycin + Meropenem No vasopressors Sedation prn GI Prophylaxis: Protonix Transfuse blood prn 05/29/24: Transfuse 1 unit RBCs for Hb 5.9 Lasix 20 mg IV x1 Check Hb after transfusion Off pressors Antibiotics: Meropenem, Vanco, Micafungin Amiodarone IV Taper sedation down as tolerated CXR: Clear TPN Protonix 05/30/24: Discussed with Dr. Fritz Lake Will do CT ABD pelvis to follow up on abscess IV antibiotics Taper sedation down C-PAP? per Dr. Poon 05/31/24: CT abdomen showed no fluid collection IV antibiotics: Meropenem, Vancomycin & Micafungin Amiodarone Dr. Fritz Lake recommended to continue medical treatment, no surgical intervention Sedation as needed TPN 06/01/2024: Start Lovenox 70 mg subQ q.[address] Lake and Neurology IV antibiotics meropenem and vancomycin Micafungin TPN Tapered down sedation as tolerated 06/02/24: Fever Yeast in cultures: Micafungin IV antibiotics: Meropenem & Vanco TPN RUE DVT: Lovenox Normocytic anemia 7.9 Consult ID [place] Cultures Afib: Amiodarone drip Discussed with her sister over the phone 06/03/2024: IV antibiotics: Meropenem and vancomycin IV antifungal: Micafungin TPN Amiodarone IV Dr. Fritz Lake for surgery is on the case 06/04/24: Abdominal infection: IV antibiotics: Meropenem, Vanco and Micafungin TPN Amiodarone Surgery on case: Will discuss with Dr. Fritz Lake regarding tracheostomy ID consult is pending Discussed with sister over the phone, family is agreeable with the trach Anemia: Transfuse one unit RBCs 06/05/24: Hypokalemia: Replace IV antibiotics: Meropenem and Vanco IV antifungals: Micafungin TPN Amiodarone Discussed with Dr. Lake regarding tracheostomy Remove central line PICC line 06/06/24: Repeat CT abdomen & pelvis Discussed with her sister Lianet over the phone Discussed the advance directives She stated that patient as stated before that she wants to be treated but only if she becomes a vegetable then she would stop the treatment The family for now would like to continue treatment We will get a new blood and urine and sputum cultures Continue IV antibiotics and IV antifungal Dr. Lake is evaluating the patient for possible tracheostomy in the next few days 06/07/2024: Off sedation CPAP trial TPN Amiodarone IV antibiotics and antifungals Full code 06/08/24: Afib RVR, start Metoprolol IV scheduled dose Amiodarone is off HTN: Hydralazine Rocephin Flagyl Micafungin TPN NGT to suction Lovenox Hydralazine 06/09/24: Continue current Tx IV antibiotics Metoprolol IV NPO Tube suction 06/11/2024: Patient is stable Fever: Continue IV antibiotics : Rocephin, Flagyl, micafungin Abdominal infection Acute CVA with left sided weakness Atrial fibrillation Hypertension TPN Lovenox IV metoprolol IV Protonix Discussed with her sister over the phone Nicotine patch 06/12/2024 Continue current management Downgrade to the FLYNN NPO TPN 06/13/24: Swallow eval Downgrade to FLYNN Start clear liquids if she can swallow IV antibiotics PRN Metoprolol for HR>110 Hydralazine for BP 06/14/24: Downgrade to FLYNN Pureed diet Continue antibiotics Physical therapy Plan discussed with: Patient My Orders Orders - BARI MOORE MD Procedure Category Date Status Time Hydromorphone PHA 06/13/24 In Process Injection (Dilaudid 11:00 Metoprolol Inj PHA 06/13/24 In Process (Lopressor) 10:45 Discontinue Ng ORDERS 06/13/24 Transmitted 16:44 Date of Service: Jun 14, 2024 Billing Provider: BARI MOORE MD Common Visit Codes: NOT BILLABLE BARI MOORE MD Jun 14, 2024 09:11
[2024-06-14] MEDS: MICAFUNGIN SODIUM 100 MG in D5W 5% 100 ML IV SCH (10:20)
--- NOTE | 2024-06-14 10:47 | DVHPN2 ---
Progress Note - Dictate Date Seen: Jun 14, 2024 Has the PT tested + for MRSA If YES, has PT been informed?: No Medical Necessity Reason Pt with a Central, PICC or Fol: Yes The following are medically ne: Muhammad Catheter Reason for muhammad catheter: Strict I&O Subjective Ms. Barrera is a 68 years old right-handed female with a history of hypertension, anemia, breast cancer, she was admitted to the [facility] on 05/07/2024 for scheduled hysterectomy and oophorectomy. Post surgically, she woke up with left-sided weakness, and MRI showed multiple stroke in the right MCA territory. During the hospital stay, she developed fall perforation, and she went through abdominal surgery on 05/16/2024 Because of ongoing intraperitoneal sepsis/peritonitis, the patient went through exploratory laparotomy on 05/24/2024 I have seen and examined the patient in the ICU, I have discussed with her nurse. She is awake, oriented to person, place, she knows the year, socially appropriate, looks more energized She does not move the left arm, The right pupil still bigger than left side, 4-5 versus 4 mm, mild left eyelid ptosis CBC, 05/16/2024: Metabolic acidosis, 05/17/2024: Metabolic acidosis, 05/18/2024: Metabolic acidosis URINALYSIS, 05/11/2024: WBC: 2, URINE LEUKOCYTE ESTERASE: NEGATIVE WBC/HB/PLT/MCV, 05/04: 5.1/10.7/119/98.3, 05/17/2024: 20.4/8.5/205/86.9 05/19/2024: 12.2/11.1/125/86.2, 05/20/2024: 8.1/10.5/113/86.1, 05/21/2024: 6.6/10.5/106/86.5, 05/26/2024: 9.6/9.2/184/93.8, 05/28/2024: 7.5/7/223/89.6, 05/29/24: 6.8/5.9/251/88.1, 05/30/2024: 7.4/7.7/268/86.6, 06/10/2024: 12.1/9.3/338/88.2 PT/INR/FTT, 05/16/2024: 17.4/1.71/34.2 K, 05/09/2024: 3.9, 05/10/24:3.1, 05/12/2024: 3.4, 05/16/2024: 2.8 Lactic acid, 05/15/2024: 1.6, 05/16/2024: 1.5 HCO3, 05/23/2024: 35 Bun.Cr, 05/23/2024: 37/0.75 LIVER FUNCTION TESTS, 05/12/2024: UNREMARKABLE, 05/16/2024: Unremarkable TBI/AST/ALT/AP, 05/18/2024: 1.2//, 05/19/2024: 3.1/04/23/2067, 05/23/2024: 3.1/48/35/170, 05/29/2024: 2.3/29/21/117 TG/HDL/LDL/HDL, 05/12/2024: 196/134/75/23 TSH, 05/12/2024: 2.01 Echocardiogram 05/14/2024: lvef 65% by visual estimate mild mitral regurg RV enlarged mild left atrium enlarged mild Extremity venous study, 06/01/2024: No left upper extremity DVT. Right internal jugular vein and subclavian vein are not visualized secondary to patient positioning. Nonocclusive thrombus is seen in the right axillary vein and brachial vein. Occlusive thrombus is present at the right cephalic vein. Carotid Doppler, 05/11/2024: 1. Occlusion of the right proximal ICA. 2. Greater than 50% stenosis of the right proximal ECA. 3. Greater than 50% stenosis of the left proximal ICA CT head, 05/11/2024: 1. Chronic lacunar infarct in right centrum semiovale. 2. Chronic periventricular ischemic changes. 3. Cerebral and cerebellar atrophy, likely age-related. 4. Advised further evaluation with MRI brain without contrast if clinically indicated CT abdomen/pelvis, 05/15/2024: Small bowel obstruction with evidence of perforation including free intraperitoneal fluid and air. Extensive subcutaneous emphysema likely secondary to bowel perforation CT abdomen/pelvis, 05/16/2024: 1. Sequelae of recent postsurgical changes as described above. Correlate with surgical history. 2. Pneumoperitoneum and free fluid in the abdomen and pelvis. 3. Large collection containing fluid and gas, predominantly in the right hemiabdomen. There is GI contrast extending into this collection from an adjacent small bowel loop. There is a component of this collection extending adjacent to the anterior superior aspect of the liver. 4. Moderate right hydronephrosis and hydroureter. The distal right ureter appears to be compressed by the large fluid collection in the right hemiabdomen. No obstructing calculus. 5. Dilated small bowel loops in the left hemiabdomen with suspected small-bowel obstruction. 6. Prominent subcutaneous edema in the ventral abdominal wall and extending caudally into the inguinal regions bilaterally, peroneal region, and anterior aspect of the left thigh. 7. Small bilateral pleural effusions with overlying atelectasis. 8. Additional findings as detailed above. CT abdomen, 05/23/2024: Postsurgical changes of the ventral abdomen with interval improvement in the diffuse soft tissue edema and ventral abdominal, pelvis and upper thigh subcutaneous emphysema. Interval significant decrease in size of the loculated collection within the right hemiabdomen and pelvis with small residual. Interval placement of drainage catheters terminating over the left upper abdominal quadrant and left hemipelvis as detailed above. Interval development of small to moderate ascites. Wall thickening of fluid-filled nondistended small bowel loops of the anterior mid to lower abdomen which may be from the surrounding ascites versus enteritis. Additional findings as above CT abdomen staff pelvis, 05/30/2024: 1. Radiodense contrast in the mid abdomen associated with surgical sutures. It is unclear whether this is in bowel or represents a bowel leak. Clinical correlation and continued follow-up is recommended. 2. Right pelvic, anterior abdominal wall and left abdomen drainage catheters in place. No definite abscess identified. 3. Extensive post postsurgical changes of the bowel. 4. Small amount of abdominal and pelvic ascities. 5. Small to moderate right pleural effusion. CTA neck, head, 05/14/24: 1. Complete occlusion of the right cervical internal carotid artery. There may be trickle flow in distal right cervical ICA. 2. Poor flow in the right intracranial ICA likely retrograde perfusion through the contralateral left side posterior circulation through the communicating arteries. 3. High-grade stenosis at the left carotid bulb with at least 70-80% stenosis. Moderate short-segment stenosis in the left proximal ICA with at least 60% stenosis. MRI HEAD, 05/11/2024: 1. Multiple foci of restricted diffusion in the right centrum semiovale and along the right superior frontal lobe compatible with acute to subacute infarcts. There is no evidence of acute hemorrhage or significant surrounding edema. 2. Absence of flow void in the intracranial portions of the right internal carotid artery which is likely occluded. vital signs Vital Sign Date Time Temp Pulse Resp B/P (MAP) Pulse Ox O2 Delivery O2 Flow Rate FiO2 06/14/24 09:00 97 26 137/42 (73) 100 06/14/24 08:00 98.2 98.2 06/14/24 08:00 Room Air* 0 21 Total Intake and Output 06/13/24 06/13/24 06/14/24 15:00 23:00 07:00 Intake Total 684 ml 954 ml 611 ml Output Total 1717 ml 1995 ml Balance 684 ml -763 ml -1384 ml medications Current Medications Medications Dose Ordered Sig/Nora Route Start Time Stop Time Status Last Admin Dose Admin Acetaminophen 650 mg Q6HPRN PRN HI 05/16/24 22:30 06/09/24 22:15 650 MG Pantoprazole Sodium 40 mg DAILY IV 05/17/24 10:00 06/14/24 10:18 40 MG Amino Acids 0 ml @ 0 mls/hr PER PHARMACY IV 05/17/24 08:30 Vancomycin HCl 0 ml @ 0 mls/hr UD IV 05/18/24 07:45 Cancel Norepinephrine Bitartrate 32 mg/ Sodium Chloride 250 ml @ 0.938 mls/ hr Q24H IV 05/18/24 16:00 06/04/24 12:06 0.938 MLS/HR Potassium Chloride 100 ml @ 50 mls/hr Q2H IV 05/22/24 12:30 05/22/24 16:29 Cancel Diagnostic Test (Pha) 1 strip Q6HR 05/24/24 12:00 06/14/24 06:00 1 STRIP Insulin Human Regular FOLLOW SLIDING SCALE Q6HR SC 05/24/24 12:00 06/14/24 06:06 2 UNITS Dextrose 50 ml UD IV 05/24/24 12:00 Enoxaparin Sodium 70 mg Q12HR SC 06/01/24 22:00 06/14/24 10:19 70 MG Labetalol HCl 10 mg Q2HPRN PRN IV 06/02/24 07:45 06/09/24 09:39 10 MG Hydralazine HCl 10 mg Q4HPRN PRN IV 06/08/24 12:45 Ondansetron HCl 4 mg Q4HPRN PRN IV 06/09/24 13:30 06/10/24 16:14 4 MG Nicotine 1 patch DAILY TD 06/11/24 10:00 06/13/24 10:47 1 PATCH Fluticasone Propionate 50 mcg Q12HR EACHNOSTRI 06/11/24 22:00 06/14/24 10:18 50 MCG Piperacillin Sod/ Tazobactam Sod 100 ml @ 25 mls/hr Q8HR IV 06/12/24 15:45 06/14/24 06:04 25 MLS/HR Voriconazole 200 mg/Dextrose 270 ml @ 135 mls/hr Q12H IV 06/13/24 20:00 06/14/24 08:07 135 MLS/HR Fat Emulsion Intravenous 100 ml/Sodium Acetate 60 meq/Potassium Acetate 30 meq/ Potassium Phosphate 22 meq/ Magnesium Sulfate 12 meq/ Multivitamins 10 ml/Chromium/ Copper/Manganese/ Zinc 1 ml/Insulin Human Regular 28 units/Amino Acids/ Dextrose/Purified Water 1,764.28 ml @ 73 mls/hr [id number] IV 06/13/24 20:00 06/14/24 19:59 06/13/24 19:41 73 MLS/HR Micafungin Sodium 100 mg/Dextrose 100 ml @ 100 mls/hr DAILY IV 06/14/24 10:00 06/14/24 10:20 100 MLS/HR Hydromorphone HCl 0.5 mg Q6HPRN PRN IV 06/13/24 11:00 06/13/24 12:28 0.5 MG Metoprolol Tartrate 4 mg Q6HPRN PRN IV 06/13/24 10:45 Temazepam 15 mg HS PRN PO 06/13/24 15:15 06/13/24 19:53 15 MG objective General: the patient is well developed and nourished. No acute distress. ABDOMEN: Status post surgery MENTAL STATUS: Subjective. CRANIAL NERVES: Pupils are round and reactive, mild left eyelid ptosis. normal external eye movement, normal sensation and motor examination in the lateral trigeminal nerve distribution, no facial weakness. No abnormal vascular dilatation in the face, eye, no abnormal facial skin secretion SENSATION: Okay to pinprick and light touch MOTOR: Normal tone in the upper and lower extremity. Normal muscle bulk. No fasciculations. She can move the right arm and the legs REFLEXES: Deep tendon reflexes are symmetrical. No pathological reflexes. CEREBELLAR/COORDINATION: Deferred GAIT/STATION: deferred. laboratory and microbiology Laboratory Tests 06/14/24 03:24 06/13/24 03:59 Test 06/14/24 03:24 Range/Units Serum Glucose 144 H 74-106 mg/dL Problem List Pelvic prolapse, can count urethrovesical junction, surgery repair on 05/07/2024 (Robotic supracervical hysterectomy bilateral salpingo-oophorectomy colposcopic pexy cystocele repair urethral sling partial vaginectomy) Bowel obstruction with perforation, intra-abdominal abscess, dense at [place], status post surgery 05/16/2024 Sepsis/septic shock Metabolic encephalopathy Acute right MCA territory multiple strokes Left hemiparesis Right ICA occlusion Left ICA severe stenosis Anemia, with unstable H&H Status post oophorectomy, hysterectomy Anisocoria, maybe related to her carotid he was sclerosis DVT Assessment/Plan Monitoring Supportive treatment ICU care Stabilize vitals Respiratory support IV antibiotics Oxygen Lovenox 70 mg subQ b.i.d. TPN GI prophylaxis Further address bilateral carotid stenosis CLARA on discharge Surgery on case Okay to use Lovenox for DVT from neurologic point of view More recommendation per clinical course This medical document was created using an electronic medical record system with [employer] dictation system. Although this document has been carefully reviewed, there may still be some phonetic and typographical errors. These areas are purely typographical due to imperfections of the software programs, and do not reflect any compromise in the patient's medical care Prognosis poor Dietary Evaluation Review Comments: 1) Advance pt diet when medically feasible to a 2gmNa diet modified per [employer]APH[employer] PRO[employer] recommendations 2) Continue current plan of care Expected Outcomes/Goals: 1) Pt diet to advance 2) F/U in 2-3 days Plan discussed with: Other BRYAN FLORES MD Jun 14, 2024 10:47
--- NOTE | 2024-06-14 18:26 | DVHPN2 ---
Consult Progress Note Date Seen: Jun 14, 2024 Subjective Patient reports: Feels better (drains have minimal output , most seen is 30ccs from the left side , tolerating oral intake and eating some lunch , working with physical therapy but gets intermittently hypotensive) Objective vital signs Vital Sign Date Time Temp Pulse Resp B/P (MAP) Pulse Ox O2 Delivery O2 Flow Rate FiO2 06/14/24 18:00 99 18 134/56 (82) 100 06/14/24 18:00 Room Air* 0 21 06/14/24 16:30 97.8 97.8 Total Intake and Output 06/13/24 06/13/24 06/14/24 15:00 23:00 07:00 Intake Total 684 ml 954 ml 684 ml Output Total 1717 ml 1995 ml Balance 684 ml -763 ml -1311 ml medications Current Medications Medications Dose Ordered Sig/Nora Route Start Time Stop Time Status Last Admin Dose Admin Acetaminophen 650 mg Q6HPRN PRN IL 05/16/24 22:30 06/09/24 22:15 650 MG Pantoprazole Sodium 40 mg DAILY IV 05/17/24 10:00 06/14/24 10:18 40 MG Amino Acids 0 ml @ 0 mls/hr PER PHARMACY IV 05/17/24 08:30 Vancomycin HCl 0 ml @ 0 mls/hr UD IV 05/18/24 07:45 Cancel Norepinephrine Bitartrate 32 mg/ Sodium Chloride 250 ml @ 0.938 mls/ hr Q24H IV 05/18/24 16:00 06/04/24 12:06 0.938 MLS/HR Potassium Chloride 100 ml @ 50 mls/hr Q2H IV 05/22/24 12:30 05/22/24 16:29 Cancel Diagnostic Test (Pha) 1 strip Q6HR 05/24/24 12:00 06/14/24 17:54 1 STRIP Insulin Human Regular FOLLOW SLIDING SCALE Q6HR SC 05/24/24 12:00 06/14/24 17:53 4 UNITS Dextrose 50 ml UD IV 05/24/24 12:00 Enoxaparin Sodium 70 mg Q12HR SC 06/01/24 22:00 06/14/24 10:19 70 MG Labetalol HCl 10 mg Q2HPRN PRN IV 06/02/24 07:45 06/09/24 09:39 10 MG Hydralazine HCl 10 mg Q4HPRN PRN IV 06/08/24 12:45 Ondansetron HCl 4 mg Q4HPRN PRN IV 06/09/24 13:30 06/10/24 16:14 4 MG Nicotine 1 patch DAILY TD 06/11/24 10:00 06/13/24 10:47 1 PATCH Fluticasone Propionate 50 mcg Q12HR EACHNOSTRI 06/11/24 22:00 06/14/24 10:18 50 MCG Piperacillin Sod/ Tazobactam Sod 100 ml @ 25 mls/hr Q8HR IV 06/12/24 15:45 06/14/24 14:28 25 MLS/HR Fat Emulsion Intravenous 100 ml/Sodium Acetate 60 meq/Potassium Acetate 30 meq/ Potassium Phosphate 22 meq/ Magnesium Sulfate 12 meq/ Multivitamins 10 ml/Chromium/ Copper/Manganese/ Zinc 1 ml/Insulin Human Regular 28 units/Amino Acids/ Dextrose/Purified Water 1,764.28 ml @ 73 mls/hr [id number] IV 06/13/24 20:00 06/14/24 19:59 06/13/24 19:41 73 MLS/HR Hydromorphone HCl 0.5 mg Q6HPRN PRN IV 06/13/24 11:00 06/14/24 15:08 0.5 MG Metoprolol Tartrate 4 mg Q6HPRN PRN IV 06/13/24 10:45 Temazepam 15 mg HS PRN PO 06/13/24 15:15 06/13/24 19:53 15 MG Fat Emulsion Intravenous 100 ml/Sodium Acetate 60 meq/Sodium Phosphate 25 meq/ Potassium Acetate 40 meq/Magnesium Sulfate 14 meq/ Multivitamins 10 ml/Chromium/ Copper/Manganese/ Zinc 1 ml/Insulin Human Regular 24 units/Amino Acids/ Dextrose/Purified Water 1,720.99 ml @ 71 mls/hr [id number] IV 06/14/24 20:00 06/15/24 19:59 Fluconazole 400 mg DAILY PO 06/15/24 10:00 laboratory and microbiology Laboratory Tests 06/14/24 03:24 06/13/24 03:59 Test 06/14/24 03:24 Range/Units Serum Glucose 144 H 74-106 mg/dL Problem List/Assessment/Plan Problems(with codes): (1) Fungal infection (2) Intra-abdominal abscess (3) Stroke (4) SBO (small bowel obstruction) (5) Anemia (6) Breast cancer (7) Hypertension Problem List/Assessment/Plan Assessment and Plan: ID Problem List: 1. Small bowel obstruction with perforation 2. Septic shock 3. Stroke, right MCA territory 4. Hypertension 5. Anemia 6. Breast cancer 7. Bilateral mastectomy 8. Post-surgical complications (including ileostomy creation) 9. Fungal infection (yeast not Radha albicans) 10. Strep Viridans Group B infection Assessment: This is a 68-year-old female, with a significant past medical history of anemia, hypertension, breast cancer status post bilateral mastectomy, and a 50 pack-year smoking history (now quit), who was initially admitted for a robotic hysterectomy with bilateral salpingectomy, removal of a right ovarian mass, cystocele repair with urethral sling. Postoperatively, she developed hypertension and nausea, necessitating overnight admission. Post-admission, she endured a cerebrovascular accident primarily impacting the right MCA territory and contributing to left-sided weakness. Subsequent evaluations included MRI and CT head scans that confirmed multiple acute and subacute infarcts. Later complications included progression to an acute small bowel obstruction with perforation, leading to emergent exploratory laparotomy and subsequent ileostomy creation. Cultures from the surgical sites revealed a non-Radha albicans yeast and Strep Viridans Group B infection. The patient continues to require ICU support, primarily due to ongoing septic shock and the need for ventilatory assistance. Patient remains intubated with vasopressors being weaned off. Recent WBC count was 16.9 and hemoglobin levels have fluctuated, dropping as low as 5.9. She has been transitioned to a multi-antibiotic regimen including meropenem, vancomycin, and TPN for nutritional support. 06/04: hemaglobin of 6.9, suspect ongoing blood loss. Preliminary blood cultures are no growth for 48 hours as well as wound and urine cultures with no growth 06/05: hemaglobin of 8.4 after blood transfusion. Repeat cultures of the abdomen is showing no organisms 06/06: Ct pelvis abdomen shows faily stable appearing radio dense contrast in the central mid abdomen with adjacent surgical sutures. Small bowel anacitis. drainage catheter terminating in the pelvis and upper abdomen, stable appearing intraabdominal acities. extensive post-surgical changes that ate unchanged. a small to moderate right mid size plural effusion. Chest x-ray was done and shows no focal consolidation in the lungs 06/07: Chest x-ray done before the excavation, showing pulmonary disease 06/08: Abdominal drain fluids and patients surgical site has been cultured. Removal of catheter tip from yesterday shows staphylococcus and micrococcus , likely skin florac contamination . White count of 12.4 today and will continue to monitor 06/12: has been having persistant fevers for the last 48 hours , chest x-ray appears clear , leukocytosis , fungus was growing from operative cultures , filamentous. Raising possibilities of fuserium esprigilis , penicillium , although these are less likely than radha. suspect that patient is having a rise in fevers due to untreated bacteria . QTC was 405 06/13: Blood cultures are no growth todate x 24hrs 06/14: tolerating PO intake at this time Plan: 1. continue Zosyn - stop mycofungen 2. start oral fluconazol 400 1x daily 3. Check EKG again in 5 days 3. check blood cultures and check surgical site wound culture 4. Provide ICU support with ventilator for respiratory status and hemodynamic monitoring. 5. Supportive care measures for septic shock, including fluid resuscitation and vasopressor management. 6. Monitor and maintain drainage output. 7. Ensure adequate nutritional support through TPN. 8. Follow-up with surgical team for wound care and any necessary surgical interventions. 9. if hypotension persists, recommend repeating Ct of abdomen in a few days to rule out hematoma 10. monitor patients resopse to all regimens clinically when patient passes bedside swallow 11. monitor white count 12. follow up on cultures of incision site and drainage specimen Authorized and Performed by: toshia ayala MD Total critical care time: Approximately 68 minutes Due to a high probability of clinically significant, life threatening deterioration, the patient required my highest level of preparedness to intervene emergently and I personally spent this critical care time directly and personally managing the patient. This critical care time included obtaining a history; examining the patient; pulse oximetry; ordering and review of studies; arranging urgent treatment with development of a management plan; evaluation of patient's response to treatment; frequent reassessment; and, discussions with other providers. This critical care time was performed to assess and manage the high probability of imminent, life-threatening deterioration that could result in multi-organ failure. It was exclusive of separately billable procedures and treating other patients and teaching time. Plan discussed with: Other Dietary Evaluation Review Comments: 1) Advance pt diet when medically feasible to a 2gmNa diet modified per [employer]ANDAR[employer] TE[employer]ER recommendations 2) Continue current plan of care Expected Outcomes/Goals: 1) Pt diet to advance 2) F/U in 2-3 days TOSHIA AYALA MD Jun 14, 2024 18:26
[2024-06-14] MEDS: TPN PER PHARMACY IV NR (20:57)
--- NOTE | 2024-06-14 21:21 | DVHPN2 ---
Progress Note - Dictate Date Seen: Jun 14, 2024 Has the PT tested + for MRSA If YES, has PT been informed?: No Medical Necessity Reason Pt with a Central, PICC or Fol: Yes The following are medically ne: Muhammad Catheter Reason for muhammad catheter: Strict I&O Subjective Patient seen and examined at bedside. Breathing on room air. Overnight events reviewed. vital signs Vital Sign Date Time Temp Pulse Resp B/P (MAP) Pulse Ox O2 Delivery O2 Flow Rate FiO2 06/14/24 19:30 98 28 130/58 (82) 100 06/14/24 18:00 Room Air* 0 21 06/14/24 16:30 97.8 97.8 Total Intake and Output 06/13/24 06/13/24 06/14/24 15:00 23:00 07:00 Intake Total 684 ml 954 ml 684 ml Output Total 1717 ml 1995 ml Balance 684 ml -763 ml -1311 ml medications Current Medications Medications Dose Ordered Sig/Nora Route Start Time Stop Time Status Last Admin Dose Admin Acetaminophen 650 mg Q6HPRN PRN IL 05/16/24 22:30 06/09/24 22:15 650 MG Pantoprazole Sodium 40 mg DAILY IV 05/17/24 10:00 06/14/24 10:18 40 MG Amino Acids 0 ml @ 0 mls/hr PER PHARMACY IV 05/17/24 08:30 Vancomycin HCl 0 ml @ 0 mls/hr UD IV 05/18/24 07:45 Cancel Norepinephrine Bitartrate 32 mg/ Sodium Chloride 250 ml @ 0.938 mls/ hr Q24H IV 05/18/24 16:00 06/04/24 12:06 0.938 MLS/HR Potassium Chloride 100 ml @ 50 mls/hr Q2H IV 05/22/24 12:30 05/22/24 16:29 Cancel Diagnostic Test (Pha) 1 strip Q6HR 05/24/24 12:00 06/14/24 17:54 1 STRIP Insulin Human Regular FOLLOW SLIDING SCALE Q6HR SC 05/24/24 12:00 06/14/24 17:53 4 UNITS Dextrose 50 ml UD IV 05/24/24 12:00 Enoxaparin Sodium 70 mg Q12HR SC 06/01/24 22:00 06/14/24 10:19 70 MG Labetalol HCl 10 mg Q2HPRN PRN IV 06/02/24 07:45 06/09/24 09:39 10 MG Hydralazine HCl 10 mg Q4HPRN PRN IV 06/08/24 12:45 Ondansetron HCl 4 mg Q4HPRN PRN IV 06/09/24 13:30 06/10/24 16:14 4 MG Nicotine 1 patch DAILY TD 06/11/24 10:00 06/13/24 10:47 1 PATCH Fluticasone Propionate 50 mcg Q12HR EACHNOSTRI 06/11/24 22:00 06/14/24 10:18 50 MCG Piperacillin Sod/ Tazobactam Sod 100 ml @ 25 mls/hr Q8HR IV 06/12/24 15:45 06/14/24 14:28 25 MLS/HR Hydromorphone HCl 0.5 mg Q6HPRN PRN IV 06/13/24 11:00 06/14/24 15:08 0.5 MG Metoprolol Tartrate 4 mg Q6HPRN PRN IV 06/13/24 10:45 Temazepam 15 mg HS PRN PO 06/13/24 15:15 06/13/24 19:53 15 MG Fat Emulsion Intravenous 100 ml/Sodium Acetate 60 meq/Sodium Phosphate 25 meq/ Potassium Acetate 40 meq/Magnesium Sulfate 14 meq/ Multivitamins 10 ml/Chromium/ Copper/Manganese/ Zinc 1 ml/Insulin Human Regular 24 units/Amino Acids/ Dextrose/Purified Water 1,720.99 ml @ 71 mls/hr [id number] IV 06/14/24 20:00 06/15/24 19:59 06/14/24 20:57 71 MLS/HR Fluconazole 400 mg DAILY PO 06/15/24 10:00 objective Gen.: Patient lying in bed in no apparent distress. Breathing on room air. Head: Normocephalic, atraumatic. Eyes: EOMI/PERRLA. Ears: Normal hearing. Normal anatomy. Neck/trachea: Trachea midline, supple. Nose: Normal external anatomy. Mouth: Moist mucous membranes. Chest: Decreased air entry bilaterally. No wheezing or rhonchi. Cardiovascular: Positive S1, positive S2. Regular rate and rhythm. Abdomen: Positive bowel sounds in all 4 quadrants. Soft, non-tender, non- distended. : Deferred. Rectal: Deferred. Skin: Warm, dry. Intact. Extremities: 2+ radial pulses bilaterally. No lower extremity edema. Neuro: Awake, alert, oriented x3. No gross motor or sensory deficits. Cranial nerves II through XII intact. Gait not assessed. laboratory and microbiology Laboratory Tests 06/14/24 03:24 06/13/24 03:59 Test 06/14/24 03:24 Range/Units Serum Glucose 144 H 74-106 mg/dL Assessment/Plan Impression: Acute hypoxic respiratory failure Abdominal pain due to recent robotic surgery hysterectomy and salpingo- oophorectomy History of breast cancer with bilateral mastectomies History of bowel surgery and ileostomy Anemia due to hemorrhage on hemodilution Shock Chronic pain syndrome Anemia Atrial fibrillation with RVR Bowel perforation with repeat exploratory laparotomy with ileostomy creation Events: Breathing on room air. No respiratory distress. NG tube has been removed. On puree/thin liquid diet. Surgery recommendations appreciated. Incentive spirometry Continue abx - Zosyn. Nasal spray ID recommendations appreciated. TPN for nutritional support Off pressors, hemodynamically stable. Head of bed elevation Aspiration precautions. Upper extremity Doppler showed nonocclusive thrombus in the right axillary vein and brachial vein Currently on enoxaparin 70 mg subcutaneous Blood cultures revealed growth of yeast but not Shawanda albicans Currently on micafungin intravenous, Monitor renal function Monitor electrolytes, supplement as necessary Labs and imaging reviewed Rest of plan as outlined below. Plan: S/p extubation on 06/07 On room air - supplemental oxygen PRN Titrate to keep sats above 92% CXR, ABG reviewed. Pressors as necessary for hemodynamic support Titrate to keep mean arterial pressure greater than 65 mmHg. Continue antibiotics. F/u cultures. Monitor hemoglobin Transfuse if less than 7.0 grams/deciliter Monitor renal function due to Acute kidney injury. Monitor electrolytes. Supplement as necessary. Surgery recommendations appreciated. Nutritional support. On TPN Accucheks, ISS. GI prophylaxis - Pantoprazole 40 DVT prophylaxis- on enoxaparin 70 SC Prognosis: Poor given multiple comorbidities. Rest of plan per hospitalist and other consultants. Thank you Dr Reid for allowing me to participate in this patient's care. Further recommendations will depend on patient's clinical course. Please do not hesitate to contact me if you have any questions or concerns. This medical document was created using an electronic medical record system with Dragon computerized dictation system. Although this document has been carefully reviewed, there may still be some phonetic and typographical errors. These areas are purely typographical due to imperfections of the software programs, and do not reflect any compromise in the patient's medical care. Dietary Evaluation Review Comments: 1) Advance pt diet when medically feasible to a 2gmNa diet modified per [employer]IST recommendations 2) Continue current plan of care Expected Outcomes/Goals: 1) Pt diet to advance 2) F/U in 2-3 days Plan discussed with: Patient, Other (RN) RG LEONE MD Jun 14, 2024 21:21
[2024-06-15] VITALS (26 sets, daily range): BP systolic 110–181; BP diastolic 25–68; PULSE 76–100; RESP 16–30; TEMP 97.9–99.7; O2SAT 97–100
[2024-06-15 05:17] LABS: Alanine Aminotransferase 14 U/L (7-40); Albumin 3.4 g/dL (3.2-4.8); Alkaline Phosphatase 143 U/L (46-116); Anion Gap 8 (5-15); Aspartate Aminotransferase 12 U/L (13-40); BUN/Creatinine Ratio 54.7 (10.0-20.0); Calcium 9.9 mg/dL (8.7-10.4); Carbon Dioxide 24 mmol/L (20-31); Chloride 101 mmol/L (98-107); Glucose 192 mg/dL (74-106); Potassium 4.3 mmol/L (3.5-5.1); Sodium 133 mmol/L (136-145)
[2024-06-15 05:18] LABS: Bilirubin, Total 0.9 mg/dL (0.2-1.0); Phosphorus 4.9 mg/dL (2.4-5.1); Total Protein 7.2 g/dL (5.7-8.2)
[2024-06-15 05:19] LABS: Blood Urea Nitrogen 41 mg/dL (9-23)
[2024-06-15 06:02] LABS: Basophils # (auto) 0 10 ^3/uL (0-0.2); Basophils % (auto) 0.3 % (0.0-2.0); Eosinophils # (auto) 0 10 ^3/uL (0-0.8); Eosinophils % (auto) 0.3 % (0.0-7.0); Hematocrit 26.2 % (36.0-46.0); Hemoglobin 8.6 g/dL (12.2-16.2); Lymphocytes # (auto) 1.1 10 ^3/uL (0.4-5.4); Lymphocytes % (auto) 7.8 % (10.0-50.0); Mean Corpuscular Volume 87.7 fL (80.0-100.0); Monocytes # (auto) 1.4 10 ^3/uL (0-1.3); Monocytes % (auto) 9.8 % (0.0-12.0); Neutrophils % (auto) 81.8 % (37.0-80.0); Platelet Count (auto) 319 10^3/uL (140-450); Red Blood Cells 2.98 10^6/uL (4.0-5.20); Red Cell Distribution Width 14.9 % (11.8-14.3); White Blood Cell 14.6 10^3/uL (4.4-10.8)
--- NOTE | 2024-06-15 09:47 | DVHPN2 ---
Subjective She is less alert today Has left fascial droop Abd drainage still significant, WBCs high, slight fever Reviewed: Care Plan, H&P, Labs, Medications, Previous Orders, Radiology Changes from previous H/P or p: Changes General: Per HPI Eyes: No Pain, No Vision change, No Conjunctivae inflammation, No Eyelid inflammation, No Other, No Redness ENT: No Ear pain, No Ear discharge, No Nose pain, No Nose discharge, No Nose congestion, No Mouth pain, No Mouth swelling, No Throat pain, No Throat swelling, No Other Cardiovascular: No Chest Pain, No Palpitations, No Orthopnea, No Paroxysmal Noc. Dyspnea, No Edema, No Lt Headedness, No Other Respiratory: No Cough, No Dry, No Shortness of breath, No SOB with excertion, No Wheezing, No Hemoptysis, No Pleuritic Pain, No Sputum, No Other Gastrointestinal: Nausea Genitourinary: No Dysuria, No Frequency, No Incontinence, No Hematuria, No Retention, No Other Musculoskeletal: No other, No neck pain, No shoulder pain, No arm pain, No back pain, No hand pain, No leg pain, No foot pain Skin: No Rash, No Lesions, No Jaundice, No Bruising, No Other Objective Vitals Vital Signs Date Time Temp Pulse Resp B/P (MAP) Pulse Ox O2 Delivery O2 Flow Rate FiO2 06/15/24 08:00 99.3 83 26 152/41 (78) 99 99.3 06/15/24 06:00 Room Air* 0 21 Intake/Output Intake and Output 06/15/24 07:00 Intake Total 2466 ml Output Total 2550 ml Balance -84 ml Intake Oral 210 ml IV Total 2256 ml Output Urine Total 1675 ml Stool Total 800 ml Drainage Total 75 ml General Appearance: moderate distress, Other (Intubated and sedated) HEENT: Atraumatic, PERRLA, Other (Pupils equal, 4 mm, reactive to light to 3 mm) Lungs: Clear to auscultation, Normal air movement, Other (Mechanical ventilation) Cardiovascular: Regular rate, Normal S1, Normal S2 Abdomen: Other (Ileostomy with drainage. 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) Skin: Dry, Intact, Other (Surgical incision dry and intact) Psych/Mental Status: Mental status NL, Mood NL Medications Current Medications Medications Dose Ordered Sig/Nora Route Start Time Stop Time Status Last Admin Dose Admin Acetaminophen 650 mg Q6HPRN PRN SD 05/16/24 22:30 06/09/24 22:15 650 MG Pantoprazole Sodium 40 mg DAILY IV 05/17/24 10:00 06/14/24 10:18 40 MG Amino Acids 0 ml @ 0 mls/hr PER PHARMACY IV 05/17/24 08:30 Vancomycin HCl 0 ml @ 0 mls/hr UD IV 05/18/24 07:45 Cancel Norepinephrine Bitartrate 32 mg/ Sodium Chloride 250 ml @ 0.938 mls/ hr Q24H IV 05/18/24 16:00 06/04/24 12:06 0.938 MLS/HR Potassium Chloride 100 ml @ 50 mls/hr Q2H IV 05/22/24 12:30 05/22/24 16:29 Cancel Diagnostic Test (Pha) 1 strip Q6HR 05/24/24 12:00 06/15/24 06:17 1 STRIP Insulin Human Regular FOLLOW SLIDING SCALE Q6HR SC 05/24/24 12:00 06/15/24 06:18 4 UNITS Dextrose 50 ml UD IV 05/24/24 12:00 Enoxaparin Sodium 70 mg Q12HR SC 06/01/24 22:00 06/14/24 22:08 70 MG Labetalol HCl 10 mg Q2HPRN PRN IV 06/02/24 07:45 06/15/24 01:14 10 MG Hydralazine HCl 10 mg Q4HPRN PRN IV 06/08/24 12:45 Ondansetron HCl 4 mg Q4HPRN PRN IV 06/09/24 13:30 06/10/24 16:14 4 MG Nicotine 1 patch DAILY TD 06/11/24 10:00 06/13/24 10:47 1 PATCH Fluticasone Propionate 50 mcg Q12HR EACHNOSTRI 06/11/24 22:00 06/14/24 22:07 50 MCG Piperacillin Sod/ Tazobactam Sod 100 ml @ 25 mls/hr Q8HR IV 06/12/24 15:45 06/15/24 06:27 25 MLS/HR Hydromorphone HCl 0.5 mg Q6HPRN PRN IV 06/13/24 11:00 06/14/24 15:08 0.5 MG Metoprolol Tartrate 4 mg Q6HPRN PRN IV 06/13/24 10:45 Temazepam 15 mg HS PRN PO 06/13/24 15:15 06/13/24 19:53 15 MG Fat Emulsion Intravenous 100 ml/Sodium Acetate 60 meq/Sodium Phosphate 25 meq/ Potassium Acetate 40 meq/Magnesium Sulfate 14 meq/ Multivitamins 10 ml/Chromium/ Copper/Manganese/ Zinc 1 ml/Insulin Human Regular 24 units/Amino Acids/ Dextrose/Purified Water 1,720.99 ml @ 71 mls/hr [id number] IV 06/14/24 20:00 06/15/24 19:59 06/14/24 20:57 71 MLS/HR Fluconazole 400 mg DAILY PO 06/15/24 10:00 Laboratory Results Laboratory Tests 06/15/24 04:34 06/15/24 05:15 Chemistry Test 06/15/24 04:34 Albumin 3.4 g/dL (3.2-4.8) Calcium Level 9.9 mg/dL (8.7-10.4) Magnesium Level 2.0 mg/dL (1.6-2.6) Phosphorus Level 4.9 mg/dL (2.4-5.1) Total Protein 7.2 g/dL (5.7-8.2) LFT Test 06/15/24 04:34 Alanine Aminotransferase (ALT) 14 U/L (7-40) Alkaline Phosphatase 143 U/L (46-116) H Aspartate Amino Transferase (AST) 12 U/L (13-40) L Total Bilirubin 0.9 mg/dL (0.2-1.0) Urinalysis Test 05/11/24 16:18 Urine Color Yellow (Yellow) Urine Clarity Clear (Clear) Urine pH 6.0 (5.0-9.0) Urine Specific [place] 1.020 (1.001-1.035) Urine Protein 1+ (Negative) H Urine Ketones 4+ (Negative) H Urine Blood Trace /uL (Negative) H Urine Nitrite Negative (Negative) Urine Bilirubin Negative (Negative) Urine Urobilinogen Normal mg/dL (Negative) Urine Leukocyte Esterase Negative /uL (Negative) Urine RBC 2 /hpf (0 - 4) Urine WBC 2 /hpf (0 - 5) Urine Squamous Epithelial Cells Few /hpf (<5) Urine Bacteria None seen /hpf (None Seen) Urine Mucus Few (None Seen) Urine Glucose Normal mg/dL (Normal) Microbiology Microbiology Date/Time Source Procedure Growth Status 06/12/24 16:00 Blood Blood Culture - Preliminary NO GROWTH AFTER 48 HOURS OF INCUBATION. Resulted 06/07/24 03:00 Abdomen Gram Stain - Final Complete 06/07/24 03:00 Abdomen Wound Culture - Final Complete 06/06/24 14:23 Urine - [place] Urine Culture - Final Complete 05/16/24 14:20 Sputum Gram Stain - Final Complete 05/16/24 14:20 Respiratory Culture - Final Yeast, not Shawanda albicans Complete Assessment/Plan Assessment/Plan Robotic surgery hysterectomy and salpingo-oophorectomy complicated by Acute CVA Acute CVA w LUE hemiparesis Bowel perforation with repeat exploratory laparotomy with ileostomy creation History of breast cancer with bilateral mastectomies Afib RVR Acute hypoxic respiratory failure Mechanical intubation Exploratory laparotomy, drainage of intraabdominal abscess, thorough peritoneal lavage with reinforcement of the anastomotic location of the previous anastomosis as well as a diverting loop ileostomy on 05/24/24 Anemia Right upper extremity DVT Plan Mechanical ventilation TPN IV antibiotics: Vancomycin + Meropenem No vasopressors Sedation prn GI Prophylaxis: Protonix Transfuse blood prn 05/29/24: Transfuse 1 unit RBCs for Hb 5.9 Lasix 20 mg IV x1 Check Hb after transfusion Off pressors Antibiotics: Meropenem, Vanco, Micafungin Amiodarone IV Taper sedation down as tolerated CXR: Clear TPN Protonix 05/30/24: Discussed with Dr. Fritz Lake Will do CT ABD pelvis to follow up on abscess IV antibiotics Taper sedation down C-PAP? per Dr. Poon 05/31/24: CT abdomen showed no fluid collection IV antibiotics: Meropenem, Vancomycin & Micafungin Amiodarone Dr. Fritz Lake recommended to continue medical treatment, no surgical intervention Sedation as needed TPN 06/01/2024: Start Lovenox 70 mg subQ q.[address] Lake and Neurology IV antibiotics meropenem and vancomycin Micafungin TPN Tapered down sedation as tolerated 06/02/24: Fever Yeast in cultures: Micafungin IV antibiotics: Meropenem & Vanco TPN RUE DVT: Lovenox Normocytic anemia 7.9 Consult ID [place] Cultures Afib: Amiodarone drip Discussed with her sister over the phone 06/03/2024: IV antibiotics: Meropenem and vancomycin IV antifungal: Micafungin TPN Amiodarone IV Dr. Fritz Lake for surgery is on the case 06/04/24: Abdominal infection: IV antibiotics: Meropenem, Vanco and Micafungin TPN Amiodarone Surgery on case: Will discuss with Dr. Fritz Lake regarding tracheostomy ID consult is pending Discussed with sister over the phone, family is agreeable with the trach Anemia: Transfuse one unit RBCs 06/05/24: Hypokalemia: Replace IV antibiotics: Meropenem and Vanco IV antifungals: Micafungin TPN Amiodarone Discussed with Dr. Lake regarding tracheostomy Remove central line PICC line 06/06/24: Repeat CT abdomen & pelvis Discussed with her sister Lianet over the phone Discussed the advance directives She stated that patient as stated before that she wants to be treated but only if she becomes a vegetable then she would stop the treatment The family for now would like to continue treatment We will get a new blood and urine and sputum cultures Continue IV antibiotics and IV antifungal Dr. Lake is evaluating the patient for possible tracheostomy in the next few days 06/07/2024: Off sedation CPAP trial TPN Amiodarone IV antibiotics and antifungals Full code 06/08/24: Afib RVR, start Metoprolol IV scheduled dose Amiodarone is off HTN: Hydralazine Rocephin Flagyl Micafungin TPN NGT to suction Lovenox Hydralazine 06/09/24: Continue current Tx IV antibiotics Metoprolol IV NPO Tube suction 06/11/2024: Patient is stable Fever: Continue IV antibiotics : Rocephin, Flagyl, micafungin Abdominal infection Acute CVA with left sided weakness Atrial fibrillation Hypertension TPN Lovenox IV metoprolol IV Protonix Discussed with her sister over the phone Nicotine patch 06/12/2024 Continue current management Downgrade to the FLYNN NPO TPN 06/13/24: Swallow eval Downgrade to FLYNN Start clear liquids if she can swallow IV antibiotics PRN Metoprolol for HR>110 Hydralazine for BP 06/14/24: Downgrade to FLYNN Pureed diet Continue antibiotics Physical therapy 06/15/24: Rule out CVA: Ct Head CT abd & pel Hold Lovenox Continue IV antibiotics Discussed with Dr. Fritz Lake Plan discussed with: Patient My Orders Orders - BARI MOORE MD Procedure Category Date Status Time Head Without Contrast CT 06/15/24 Logged 09:35 Ct Ab Pelv W Wo CT 06/15/24 Logged Con-Oral & Iv 09:35 Date of Service: Jun 15, 2024 Billing Provider: BARI MOORE MD Common Visit Codes: NOT BILLABLE BARI MOORE MD Jun 15, 2024 09:47
[2024-06-15] MEDS: FLUCONAZOLE 100 MG TAB PO SCH (10:00)
[2024-06-15] MEDS: IOHEXOL 300 MG/ML 100ML BOTTLE IJ ONE (10:32)
--- NOTE | 2024-06-15 10:55 | DVH ---
EXAM: CT HEAD WITHOUT CONTRAST HISTORY: ALOC, stroke COMPARISON: MRI brain 05/11/2024 TECHNIQUE: Axial images were obtained and reformatted in coronal and sagittal planes. All CT scans at this medical facility are performed using dose modulation techniques as appropriate t o a performed exam including the following: Automated exposure control was utilized; adjustment of th e MA and/or KV according to patient size; and use of iterative reconstruction technique. CT Dose: CTDI volume is 54.79 mGy. Dose-length product is 970.14 mGy*cm FINDINGS: There is a poorly circumscribed subtle patchy hypodense area in the superior right frontal lobe kristina tible with changes of subacute infarct. There is no evidence of acute intracranial hemorrhage. There is no evidence of a discrete mass, mass effect or midline shift. There is no hydrocephalus or extra- axial fluid collection. The visualized paranasal sinuses and mastoid air cells are clear. The calvarium is intact. IMPRESSION: 1. Poorly circumscribed patchy subtle hypodense area in the superior right frontal lobe compatible wi th changes of subacute infarct. There is no evidence of acute intracranial hemorrhage. HS:Y
--- NOTE | 2024-06-15 11:11 | DVH ---
Exam: CT CT AB PEL WITH IV CON ONLY History: ABD INFECTION, POSSIBLE ABSCESS COMPARISON: CT CT ABD PELVIS W CON-ORAL IV on DOS: 05/16/24 Technique: Multidetector spiral CT of the abdomen and pelvis was performed from lung bases to pubic symphysis. Intravenous contrast was administered during this examination. Portal venous imaging was obtained. Axial, coronal and sagittal multiplanar reformats were performed by the technologist on a separate workstation. Radiation Dose : Abdomen/Pelvis: CTDIvol 7.72 mGy, DLP 437.63 mGy*cm. CONTRAST: Type of contrast: Omni 300 Contrast injected: 99 mL Findings: Lung Bases: Trace right pleural fusion with associated compressive atelectasis Liver: The liver is normal in size. No focal lesions. Normal hepatic vascular enhancement. Gallbladder and biliary Tree: Unremarkable Spleen: Unremarkable Pancreas: The pancreas is normal in appearance without focal lesions or abnormal enhancement. Adrenal Glands: Unremarkable Kidneys: No hydronephrosis. Left renal cyst. Bladder: Bladder is decompressed with a Shannon catheter and cannot be adequately assessed. Bowel: The stomach is grossly normal in appearance. Postsurgical changes in the bowel with a right lo wer quadrant ostomy. The appendix is not identified. Ascites: Trace abdominal sites Lymphadenopathy: No mesenteric, retroperitoneal or periportal lymphadenopathy. Abdominal wall and Mesentery: There are [address] There is minimal residual fluid and air ar ound the tip of the left pelvic drain. There is no significant fluid or collection around the tip of the right drain. Vasculature: The visualized abdominal aorta is normal in size and caliber. There is calcified atheros clerotic plaque involving the aorta and its branches. Abdominal and pelvic vessels demonstrate normal enhancement. Pelvic Organs: The uterus is surgically absent. Musculoskeletal: Levoscoliotic with multilevel degenerative disease. IMPRESSION: 1. Postsurgical changes in the bowel. Small amount of abdominal ascites. [address] Small amount of fluid and air around the tip of the left pelvic drain which is in the epigastric laury on. No loculated abscess in the pelvis. 2. Trace right pleural effusion with associated compressive atelactasis. Left renal cyst Radiation optimization: All CT scans at this facility use at least one of these dose optimization gumaro hniques: Automated exposure control mA and/or kV adjustment per patient size (includes targeted exams where dose is matched to clinical indication) or iterative reconstruction. HS:Y
[2024-06-15] MEDS: IOHEXOL 350 MG/ML 100ML IJ ONE (12:23)
--- NOTE | 2024-06-15 12:40 | BSKYNEURO ---
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 On therapeutic lovenox. Recent stroke in april in right mca Last Known Normal: 06/14 PM # Scores Time of exam and NIHSS (): 06/15/2024, 12:00 Level of Consciousness 1a: [1] = Not alert; but arousable by minor stim LOC Questions 1b: [2] = Answers neither correctly LOC Commands 1c: [2] = Performs neither correctly Best Gaze 2: [0] = Normal Visual 3: [0] = No visual loss Facial Palsy 4: [0] = Normal symmetrical movements Motor Arm Left 5a: [3] = No effort against gravity Motor Arm Right 5b: [3] = No effort against gravity Motor Leg Left 6a: [0] = No drift Motor Leg Right 6b: [0] = No drift Limb Ataxia 7: [0] = Absent Sensory 8: [0] = Normal Best Language 9: [0] = No aphasia Dysarthria 10: [0] = Normal Extinction and Inattention 11: [0] = No abnormality NIHSS Total: 11 # Exam Vitals: vital signs reviewed # Data Head CT: - no bleed - per radiologist read - preliminarily reviewed by me, please refer to radiology read for official reading MRI: 05/11: R mca stroke, known right ica occlusion # Assessment Impression: - Ischemic Stroke (Acute) New stroke vs toxometabolic cause. # Plan Thrombolytic/Intervention: Possible IA candidate Thrombolytic Exclusion (< 3 hour window): - stroke within 3 months Thrombolytic Exclusion (3-4.5 hour window): - on anticoagulation Thrombolytic Exclusion: > 4.5 hours Possible IA Candidate: - CTA pending Target Blood Pressure: SBP < 220 Labs: - hemoglobin A1c - lipid panel Imaging: (urgency: STAT): - CT Angiogram Head and CT Angiogram Neck AND call back with results if abnormal Therapy/Evaluation: - NPO until swallow evaluation - PT/OT evaluation - speech/swallow consultation Medication: - start statin with goal of LDL < 70 - anticoagulation with full dose enoxaparin (Lovenox) i am told on therapeutic lovenox Other: - If patient has any neurological deterioration please call me back immediately - telemetry monitoring - LDL < 70 - would not pursue stroke work-up if MRI is negative Additional Recommendations: Call back if CTA shows new lvo - would be thrombectomy candidate. Disposition: continue admission # Logistics Attestation of consult completion: The patient is located at: [facility]. Facility staff participated in the visit. I performed this telemedicine visit from my offsite office utilizing interactive 2 way audio and visual telecommunication technology. Total time spent in telemedicine encounter: I spent 21 minutes reviewing clinical data and/or imaging, obtaining history, examining the patient, communicating with the onsite care team, and in preparation of this report. Critical Care time: 21 minutes of this encounter were critical care time. Due to a high probability of clinically significant, life-threatening neurologic deterioration, the patient required my highest level of preparedness to intervene emergently. I spent this critical care time managing the patient in conjunction with on-site providers who requested my consultation. In addition to the above, this critical care time included recommendation and review of studies, including imaging; arranging an urgent treatment and management plan with on-site providers; evaluation of patient's response to treatment; and documentation. This critical care time was performed to assess and manage the high probability of imminent, life-threatening deterioration that could result in neurologic catastrophe. # Demographics First Name: La Last Name: Telferner Facility: [facility] Electronically signed at 06/15/2024 12:38 ([place] Time) by Lake Robert MD Yes BONINE ROBERT MD Jun 15, 2024 12:40
--- NOTE | 2024-06-15 13:10 | DVH ---
INDICATION: APHASIC; ALOC COMPARISON: CT ANGIO HEAD/NECK on DOS: 05/14/24 TECHNIQUE: CTA head with intravenous contrast. CTA neck with intravenous contrast. 3D image postpr ocessing was performed on a dedicated workstation and images were used for interpretation and reporti ng. Radiation Dose Information: CT Dose: CTDI volume is 7.76 mGy. Dose-length product is 786.37 mGy*cm CONTRAST: Type of contrast: Omni 350 Contrast injected: 100 ml Contrast ingested: 0 ml FINDINGS: CTA head: Intracranial right carotid artery is occluded. Right anterior and middle cerebral arteries are patent via collaterals. There is calcified plaque involving the left cavernous carotid artery without high grade stenosis identified. There is normal enhancement of the visualized distal left internal carotid , anterior and middle cerebral arteries. There is a normal anterior communicating artery complex. Th e vertebral, basilar, cerebellar and posterior cerebral arteries are within normal limits. There is mild cortical enhancement in the right high frontal lobe. The visualized intracranial venous structu res are grossly unremarkable. CTA neck: The visualized thoracic aortic arch and proximal great vessels demonstrate eccentric plaque and irreg ularity in the proximal left subclavian artery resulting in a mild, less than 50% stenosis There is calcified plaque in the left carotid bulb extending to the left internal carotid artery resu lting in a high grade, greater than 70% stenosis. Left common and external carotid arteries are paten t. Right internal carotid artery is occluded. Right common and external carotid arteries are patent. The cervical segments of the right and left vertebral arteries are within normal limits. There are a few less than 6mm nodules in the visualized lung apices The surrounding soft tissues and osseous structures are otherwise unremarkable. IMPRESSION: 1. Mild cortical enhancement in the right high frontal lobe is nonspecific, could be related to a dave junior. Consider further evaluation with MRI brain. 2. Occluded right internal carotid artery with reconstitution at the level of the supraclinoid tax services intern al carotid artery from collaterals. 3. High grade stenosis of the left carotid bulb and proximal left internal carotid artery. Vascular s urgery evaluation is recommended after acute event. 4. Mild left subclavian stenosis with associated irregularity. All CT scans at this medical facility are performed using dose modulation techniques as appropriate t o a performed exam including the following: Automated exposure control was utilized; adjustment of th e MA and/or KV according to patient size; and use of iterative reconstruction technique. HS:Y
[2024-06-15] MEDS: FLUCONAZOLE 200MG/100ML 100 ML IV SCH (13:28)
--- NOTE | 2024-06-15 16:52 | DVH ---
EXAM: MRI BRAIN HEAD WO CONTRAST CLINICAL HISTORY: R/O STROKE COMPARISON: MRI BRAIN HEAD WO CONTRAST on DOS: 05/11/24 CT head 06/15/2024 TECHNIQUE: Multiplanar, multisequence magnetic resonance imaging of the brain was performed after the administra tion of intravenous contrast. FINDINGS: There is focus of subacute infarct in involving the right mid convexity frontal lobe and right high c onvexity frontal lobe with additional small focus of the right mid convexity parietal lobe. There is minimal associated gyriform hypointensity on the blood sensitive sequence with subtle T1 cortical hy perintensity suggestive of lamina necrosis. The area demonstrates T2/FLAIR hyperintensity. Moderate diffuse brain atrophy. Mild chronic small-vessel ischemic changes. No masses, mass effect, midline shift, or herniation. No intra-axial or extra-axial fluid collections . No evidence of hydrocephalus. The pituitary gland, sella and parasellar regions unremarkable. The cerebellar tonsils are normal po sition. The cerebellum is unremarkable. The orbits and globes unremarkable. The paranasal sinuses are clear. Partial opacification of bilate ral mastoids. No worrisome calvarial lesions. IMPRESSION: Subacute infarct involving the high convexity right frontal lobe with additional smaller focus over t he right anterior mid convexity frontal lobe and punctate focus over the right mid convexity parietal lobe.
--- NOTE | 2024-06-15 19:22 | DVHPN2 ---
Consult Progress Note Date Seen: Jun 15, 2024 Subjective Patient reports: Feels worse (last seen by me around 8pm yesterday , was seen lethargic and unconcios by Dr Horner in the morning , taken to CT scan and fount to have a subacute infarct and stroke , surgery was consulted ) Objective vital signs Vital Sign Date Time Temp Pulse Resp B/P (MAP) Pulse Ox O2 Delivery O2 Flow Rate FiO2 06/15/24 18:00 82 06/15/24 18:00 27 97 Room Air* 0 21 06/15/24 17:00 157/35 (75) 06/15/24 16:40 97.9 97.9 Total Intake and Output 06/14/24 06/14/24 06/15/24 15:00 23:00 07:00 Intake Total 1054 ml 815 ml 693 ml Output Total 850 ml 540 ml 1160 ml Balance 204 ml 275 ml -467 ml medications Current Medications Medications Dose Ordered Sig/Nora Route Start Time Stop Time Status Last Admin Dose Admin Acetaminophen 650 mg Q6HPRN PRN ID 05/16/24 22:30 06/09/24 22:15 650 MG Pantoprazole Sodium 40 mg DAILY IV 05/17/24 10:00 06/15/24 10:58 40 MG Amino Acids 0 ml @ 0 mls/hr PER PHARMACY IV 05/17/24 08:30 Vancomycin HCl 0 ml @ 0 mls/hr UD IV 05/18/24 07:45 Cancel Norepinephrine Bitartrate 32 mg/ Sodium Chloride 250 ml @ 0.938 mls/ hr Q24H IV 05/18/24 16:00 06/04/24 12:06 0.938 MLS/HR Potassium Chloride 100 ml @ 50 mls/hr Q2H IV 05/22/24 12:30 05/22/24 16:29 Cancel Diagnostic Test (Pha) 1 strip Q6HR 05/24/24 12:00 06/15/24 18:13 1 STRIP Insulin Human Regular FOLLOW SLIDING SCALE Q6HR SC 05/24/24 12:00 06/15/24 18:13 8 UNITS Dextrose 50 ml UD IV 05/24/24 12:00 Enoxaparin Sodium 70 mg Q12HR SC 06/01/24 22:00 06/15/24 14:37 70 MG Labetalol HCl 10 mg Q2HPRN PRN IV 06/02/24 07:45 06/15/24 01:14 10 MG Hydralazine HCl 10 mg Q4HPRN PRN IV 06/08/24 12:45 Ondansetron HCl 4 mg Q4HPRN PRN IV 06/09/24 13:30 06/10/24 16:14 4 MG Nicotine 1 patch DAILY TD 06/11/24 10:00 06/15/24 10:59 1 PATCH Fluticasone Propionate 50 mcg Q12HR EACHNOSTRI 06/11/24 22:00 06/15/24 11:01 50 MCG Piperacillin Sod/ Tazobactam Sod 100 ml @ 25 mls/hr Q8HR IV 06/12/24 15:45 06/15/24 14:58 25 MLS/HR Metoprolol Tartrate 4 mg Q6HPRN PRN IV 06/13/24 10:45 Fat Emulsion Intravenous 100 ml/Sodium Acetate 60 meq/Sodium Phosphate 25 meq/ Potassium Acetate 40 meq/Magnesium Sulfate 14 meq/ Multivitamins 10 ml/Chromium/ Copper/Manganese/ Zinc 1 ml/Insulin Human Regular 24 units/Amino Acids/ Dextrose/Purified Water 1,720.99 ml @ 71 mls/hr [id number] IV 06/14/24 20:00 06/15/24 19:59 06/14/24 20:57 71 MLS/HR Fluconazole 100 ml @ 100 mls/hr 10,11 IV 06/16/24 10:00 Cancel Fat Emulsion Intravenous 100 ml/Sodium Acetate 100 meq/Potassium Acetate 40 meq/ Magnesium Sulfate 14 meq/ Multivitamins 10 ml/Chromium/ Copper/Manganese/ Zinc 1 ml/Insulin Human Regular 26 units/Amino Acids/ Dextrose/Purified Water 1,734.76 ml @ 71 mls/hr [id number] IV 06/15/24 22:00 06/16/24 21:59 Voriconazole 200 mg/Dextrose 270 ml @ 135 mls/hr Q12H IV 06/16/24 18:00 laboratory and microbiology Laboratory Tests 06/15/24 05:15 06/15/24 04:34 Test 06/15/24 04:34 Range/Units Serum Glucose 192 H 74-106 mg/dL Problem List/Assessment/Plan Problems(with codes): (1) Fungal infection (2) Intra-abdominal abscess (3) SBO (small bowel obstruction) (4) Stroke (5) Anemia (6) Breast cancer (7) Hypertension Problem List/Assessment/Plan Assessment and Plan: ID Problem List: 1. Small bowel obstruction with perforation 2. Septic shock 3. Stroke, right MCA territory 4. Hypertension 5. Anemia 6. Breast cancer 7. Bilateral mastectomy 8. Post-surgical complications (including ileostomy creation) 9. Fungal infection (yeast not Radha albicans) 10. Strep Viridans Group B infection Assessment: This is a 68-year-old female, with a significant past medical history of anemia, hypertension, breast cancer status post bilateral mastectomy, and a 50 pack-year smoking history (now quit), who was initially admitted for a robotic hysterectomy with bilateral salpingectomy, removal of a right ovarian mass, cystocele repair with urethral sling. Postoperatively, she developed hypertension and nausea, necessitating overnight admission. Post-admission, she endured a cerebrovascular accident primarily impacting the right MCA territory and contributing to left-sided weakness. Subsequent evaluations included MRI and CT head scans that confirmed multiple acute and subacute infarcts. Later complications included progression to an acute small bowel obstruction with perforation, leading to emergent exploratory laparotomy and subsequent ileostomy creation. Cultures from the surgical sites revealed a non-Radha albicans yeast and Strep Viridans Group B infection. The patient continues to require ICU support, primarily due to ongoing septic shock and the need for ventilatory assistance. Patient remains intubated with vasopressors being weaned off. Recent WBC count was 16.9 and hemoglobin levels have fluctuated, dropping as low as 5.9. She has been transitioned to a multi-antibiotic regimen including meropenem, vancomycin, and TPN for nutritional support. 06/04: hemaglobin of 6.9, suspect ongoing blood loss. Preliminary blood cultures are no growth for 48 hours as well as wound and urine cultures with no growth 06/05: hemaglobin of 8.4 after blood transfusion. Repeat cultures of the abdomen is showing no organisms 06/06: Ct pelvis abdomen shows faily stable appearing radio dense contrast in the central mid abdomen with adjacent surgical sutures. Small bowel anacitis. drainage catheter terminating in the pelvis and upper abdomen, stable appearing intraabdominal acities. extensive post-surgical changes that ate unchanged. a small to moderate right mid size plural effusion. Chest x-ray was done and shows no focal consolidation in the lungs 10/24: Chest x-ray done before the excavation, showing pulmonary disease 06/08: Abdominal drain fluids and patients surgical site has been cultured. Removal of catheter tip from yesterday shows staphylococcus and micrococcus , likely skin florac contamination . White count of 12.4 today and will continue to monitor 06/12: has been having persistant fevers for the last 48 hours , chest x-ray appears clear , leukocytosis , fungus was growing from operative cultures , filamentous. Raising possibilities of fuserium esprigilis , penicillium , although these are less likely than radha. suspect that patient is having a rise in fevers due to untreated bacteria . QTC was 405 06/13: Blood cultures are no growth todate x 24hrs 06/14: tolerating PO intake at this time 06/15: CTA completed , no new occulsion , right occusion of eye and left were already known and patient has had it in the past . vascular surgery was recommended for intervention of left ICA. Put back on NPL status , remains lethargic ephesic , no speaking , no weakness in upper extremities or lower , arousable but lethargic. started on statin continued on anticoagulation. MRI of brain shows subacute involving the high convexitity right frontal lobe with additional smaller focus over the right anterior mid convexitity focus over the right mid convex 70% parieteal lobe Plan: - defer plan to neurology on management of stroke - since patient is NPO switch back to IV fluconazol 1. continue Zosyn - stop mycofungen 3. Check EKG again in 5 days 3. check blood cultures and check surgical site wound culture 4. Provide ICU support with ventilator for respiratory status and hemodynamic monitoring. 5. Supportive care measures for septic shock, including fluid resuscitation and vasopressor management. 6. Monitor and maintain drainage output. 7. Ensure adequate nutritional support through TPN. 8. Follow-up with surgical team for wound care and any necessary surgical interventions. 9. if hypotension persists, recommend repeating Ct of abdomen in a few days to rule out hematoma 10. monitor patients resopse to all regimens clinically when patient passes bedside swallow 11. monitor white count 12. follow up on cultures of incision site and drainage specimen Authorized and Performed by: toshia victoria MD Total critical care time: Approximately 68 minutes Due to a high probability of clinically significant, life threatening deterioration, the patient required my highest level of preparedness to intervene emergently and I personally spent this critical care time directly and personally managing the patient. This critical care time included obtaining a history; examining the patient; pulse oximetry; ordering and review of studies; arranging urgent treatment with development of a management plan; evaluation of patient's response to treatment; frequent reassessment; and, discussions with other providers. This critical care time was performed to assess and manage the high probability of imminent, life-threatening deterioration that could result in multi-organ failure. It was exclusive of separately billable procedures and treating other patients and teaching time. Plan discussed with: Other Dietary Evaluation Review Comments: 1) Advance pt diet when medically feasible to a 2gmNa diet modified per BUSINESS PROCESS LEAD recommendations 2) Continue current plan of care Expected Outcomes/Goals: 1) Pt diet to advance 2) F/U in 2-3 days TOSHIA VICTORIA MD Jun 15, 2024 19:22
--- NOTE | 2024-06-15 22:21 | DVHPN2 ---
Progress Note - Dictate Date Seen: Jun 15, 2024 Has the PT tested + for MRSA If YES, has PT been informed?: No Medical Necessity Reason Pt with a Central, PICC or Fol: Yes The following are medically ne: Muhammad Catheter Reason for muhammad catheter: Strict I&O vital signs Vital Sign Date Time Temp Pulse Resp B/P (MAP) Pulse Ox O2 Delivery O2 Flow Rate FiO2 06/15/24 21:00 98.4 89 16 110/36 (60) 98 98.4 06/15/24 20:00 Room Air* 0 21 Total Intake and Output 06/14/24 06/14/24 06/15/24 15:00 23:00 07:00 Intake Total 1054 ml 815 ml 693 ml Output Total 850 ml 540 ml 1160 ml Balance 204 ml 275 ml -467 ml medications Current Medications Medications Dose Ordered Sig/Nora Route Start Time Stop Time Status Last Admin Dose Admin Acetaminophen 650 mg Q6HPRN PRN [place] 05/16/24 22:30 06/15/24 20:54 650 MG Pantoprazole Sodium 40 mg DAILY IV 05/17/24 10:00 06/15/24 10:58 40 MG Amino Acids 0 ml @ 0 mls/hr PER PHARMACY IV 05/17/24 08:30 Vancomycin HCl 0 ml @ 0 mls/hr UD IV 05/18/24 07:45 Cancel Norepinephrine Bitartrate 32 mg/ Sodium Chloride 250 ml @ 0.938 mls/ hr Q24H IV 05/18/24 16:00 06/04/24 12:06 0.938 MLS/HR Potassium Chloride 100 ml @ 50 mls/hr Q2H IV 05/22/24 12:30 05/22/24 16:29 Cancel Diagnostic Test (Pha) 1 strip Q6HR 05/24/24 12:00 06/15/24 18:13 1 STRIP Insulin Human Regular FOLLOW SLIDING SCALE Q6HR SC 05/24/24 12:00 06/15/24 18:13 8 UNITS Dextrose 50 ml UD IV 05/24/24 12:00 Enoxaparin Sodium 70 mg Q12HR SC 06/01/24 22:00 06/15/24 22:13 70 MG Labetalol HCl 10 mg Q2HPRN PRN IV 06/02/24 07:45 06/15/24 01:14 10 MG Hydralazine HCl 10 mg Q4HPRN PRN IV 06/08/24 12:45 Ondansetron HCl 4 mg Q4HPRN PRN IV 06/09/24 13:30 06/10/24 16:14 4 MG Nicotine 1 patch DAILY TD 06/11/24 10:00 06/15/24 10:59 1 PATCH Fluticasone Propionate 50 mcg Q12HR EACHNOSTRI 06/11/24 22:00 06/15/24 11:01 50 MCG Piperacillin Sod/ Tazobactam Sod 100 ml @ 25 mls/hr Q8HR IV 06/12/24 15:45 06/15/24 22:12 25 MLS/HR Metoprolol Tartrate 4 mg Q6HPRN PRN IV 06/13/24 10:45 Fluconazole 100 ml @ 100 mls/hr IV 06/16/24 10:00 Cancel Fat Emulsion Intravenous 100 ml/Sodium Acetate 100 meq/Potassium Acetate 40 meq/ Magnesium Sulfate 14 meq/ Multivitamins 10 ml/Chromium/ Copper/Manganese/ Zinc 1 ml/Insulin Human Regular 26 units/Amino Acids/ Dextrose/Purified Water 1,734.76 ml @ 71 mls/hr [id number] IV 06/15/24 22:00 06/16/24 21:59 Voriconazole 200 mg/Dextrose 270 ml @ 135 mls/hr Q12H IV 06/16/24 18:00 laboratory and microbiology Laboratory Tests 06/15/24 05:15 06/15/24 04:34 Test 06/15/24 04:34 Range/Units Serum Glucose 192 H 74-106 mg/dL Dietary Evaluation Review Comments: 1) Advance pt diet when medically feasible to a 2gmNa diet modified per ARCHITECTURAL PROJECT CAPTAIN recommendations 2) Continue current plan of care Expected Outcomes/Goals: 1) Pt diet to advance 2) F/U in 2-3 days AGUSTINA MAJOR [facility] Jun 15, 2024 22:21
[2024-06-15] MEDS: [UNRECOGNIZED DRUG - OTHER] IV NR (22:23)
[2024-06-15] MEDS: SODIUM ACETATE IV NR (22:23)
[2024-06-15] MEDS: FAT EMULSION IV NR (22:23)
[2024-06-15] MEDS: POTASSIUM ACETATE IV NR (22:23)
[2024-06-16] VITALS (24 sets, daily range): BP systolic 112–143; BP diastolic 30–54; PULSE 69–100; RESP 12–29; TEMP 98.3–99.1; O2SAT 95–100
[2024-06-16 04:53] LABS: Hemoglobin 8.1 g/dL (12.2-16.2); Mean Corpuscular Volume 87.2 fL (80.0-100.0)
[2024-06-16 04:55] LABS: Hematocrit 23.8 % (36.0-46.0); Mean Corpuscular Hemoglobin 29.8 pg (28.0-32.0); Mean Corpuscular Hgb Conc. 34.2 g/dL (32.0-36.0); Platelet Count (auto) 298 10^3/uL (140-450); Red Blood Cells 2.73 10^6/uL (4.0-5.20); Red Cell Distribution Width 14.9 % (11.8-14.3); White Blood Cell 11.2 10^3/uL (4.4-10.8)
[2024-06-16 04:59] LABS: Band Neutrophils % (manual) 0; Basophils % (manual) 0 (0.0-2.0); Blast Cells 0; Metamyelocytes % 0; Myelocytes % 0; Promyelocytes % 0; Reactive Lymphocytes 0
[2024-06-16 05:09] LABS: Alanine Aminotransferase 16 U/L (7-40); Albumin 3.7 g/dL (3.2-4.8); Alkaline Phosphatase 139 U/L (46-116); Anion Gap 6 (5-15); Aspartate Aminotransferase 16 U/L (13-40); BUN/Creatinine Ratio 49.3 (10.0-20.0); Blood Urea Nitrogen 36 mg/dL (9-23); Calcium 10.1 mg/dL (8.7-10.4); Carbon Dioxide 26 mmol/L (20-31); Chloride 102 mmol/L (98-107); Glucose 135 mg/dL (74-106); Magnesium 2.1 mg/dL (1.6-2.6); Potassium 3.9 mmol/L (3.5-5.1); Sodium 134 mmol/L (136-145); Total Protein 7.4 g/dL (5.7-8.2)
[2024-06-16 05:44] LABS: Eosinophils % (manual) 1 (0-7); Lymphocytes % (manual) 11 (10.0-50.0); Monocytes % (manual) 9 (0-12); Platelet Estimate Adequate
[2024-06-16] MEDS ORDERED: FLUCONAZOLE 200MG/100ML 100 ML IV SCH (10:00)
--- NOTE | 2024-06-16 10:11 | DVHPN2 ---
Progress Note - Dictate Date Seen: Jun 15, 2024 Has the PT tested + for MRSA If YES, has PT been informed?: No Medical Necessity Reason Pt with a Central, PICC or Fol: Yes The following are medically ne: Muhammad Catheter Reason for muhammad catheter: Strict I&O Subjective Patient seen and examined at bedside. Breathing on room air. Overnight events reviewed. vital signs Vital Sign Date Time Temp Pulse Resp B/P (MAP) Pulse Ox O2 Delivery O2 Flow Rate FiO2 06/16/24 06:00 86 24 130/51 (77) 98 06/16/24 06:00 Room Air* 0 21 06/16/24 04:36 98.3 Total Intake and Output 06/15/24 06/15/24 06/16/24 15:00 23:00 07:00 Intake Total 668 ml 622 ml 597 ml Output Total 985 ml 1065 ml Balance 668 ml -363 ml -468 ml medications Current Medications Medications Dose Ordered Sig/Nora Route Start Time Stop Time Status Last Admin Dose Admin Acetaminophen 650 mg Q6HPRN PRN [place] 05/16/24 22:30 06/16/24 03:36 650 MG Pantoprazole Sodium 40 mg DAILY IV 05/17/24 10:00 06/15/24 10:58 40 MG Amino Acids 0 ml @ 0 mls/hr PER PHARMACY IV 05/17/24 08:30 Vancomycin HCl 0 ml @ 0 mls/hr UD IV 05/18/24 07:45 Cancel Norepinephrine Bitartrate 32 mg/ Sodium Chloride 250 ml @ 0.938 mls/ hr Q24H IV 05/18/24 16:00 06/04/24 12:06 0.938 MLS/HR Potassium Chloride 100 ml @ 50 mls/hr Q2H IV 05/22/24 12:30 05/22/24 16:29 Cancel Diagnostic Test (Pha) 1 strip Q6HR 05/24/24 12:00 06/16/24 05:59 1 STRIP Insulin Human Regular FOLLOW SLIDING SCALE Q6HR SC 05/24/24 12:00 06/16/24 06:04 4 UNITS Dextrose 50 ml UD IV 05/24/24 12:00 Enoxaparin Sodium 70 mg Q12HR SC 06/01/24 22:00 06/15/24 22:13 70 MG Labetalol HCl 10 mg Q2HPRN PRN IV 06/02/24 07:45 06/15/24 01:14 10 MG Hydralazine HCl 10 mg Q4HPRN PRN IV 06/08/24 12:45 Ondansetron HCl 4 mg Q4HPRN PRN IV 06/09/24 13:30 06/10/24 16:14 4 MG Nicotine 1 patch DAILY TD 06/11/24 10:00 06/15/24 10:59 1 PATCH Fluticasone Propionate 50 mcg Q12HR EACHNOSTRI 06/11/24 22:00 06/15/24 22:24 50 MCG Piperacillin Sod/ Tazobactam Sod 100 ml @ 25 mls/hr Q8HR IV 06/12/24 15:45 06/16/24 05:55 25 MLS/HR Metoprolol Tartrate 4 mg Q6HPRN PRN IV 06/13/24 10:45 Fluconazole 100 ml @ 100 mls/hr 10,11 IV 06/16/24 10:00 Cancel Fat Emulsion Intravenous 100 ml/Sodium Acetate 100 meq/Potassium Acetate 40 meq/ Magnesium Sulfate 14 meq/ Multivitamins 10 ml/Chromium/ Copper/Manganese/ Zinc 1 ml/Insulin Human Regular 26 units/Amino Acids/ Dextrose/Purified Water 1,734.76 ml @ 71 mls/hr [id number] IV 06/15/24 22:00 06/16/24 21:59 06/15/24 22:23 71 MLS/HR Voriconazole 200 mg/Dextrose 270 ml @ 135 mls/hr Q12H IV 06/16/24 18:00 objective Gen.: Patient lying in bed in no apparent distress. Breathing on room air. Head: Normocephalic, atraumatic. Eyes: EOMI/PERRLA. Ears: Normal hearing. Normal anatomy. Neck/trachea: Trachea midline, supple. Nose: Normal external anatomy. Mouth: Moist mucous membranes. Chest: Decreased air entry bilaterally. No wheezing or rhonchi. Cardiovascular: Positive S1, positive S2. Regular rate and rhythm. Abdomen: Positive bowel sounds in all 4 quadrants. Soft, non-tender, non- distended. : Deferred. Rectal: Deferred. Skin: Warm, dry. Intact. Extremities: 2+ radial pulses bilaterally. No lower extremity edema. Neuro: Awake, alert, oriented x3. No gross motor or sensory deficits. Cranial nerves II through XII intact. Gait not assessed. laboratory and microbiology Laboratory Tests 06/16/24 04:26 Test 06/16/24 04:26 Range/Units Serum Glucose 135 H 74-106 mg/dL Assessment/Plan Impression: Acute hypoxic respiratory failure Abdominal pain due to recent robotic surgery hysterectomy and salpingo- oophorectomy History of breast cancer with bilateral mastectomies History of bowel surgery and ileostomy Anemia due to hemorrhage on hemodilution Shock Chronic pain syndrome Anemia Atrial fibrillation with RVR Bowel perforation with repeat exploratory laparotomy with ileostomy creation Events: Breathing on room air. No respiratory distress. Patient with left-sided deficit CT head demonstrates evolving stroke, pt aphasic. F/u Neurology recs Plan MRI brain NPO Incentive spirometry Continue abx - Zosyn. Nasal spray Labetalol for blood pressure. ID recommendations appreciated. TPN for nutritional support Off pressors, hemodynamically stable. Head of bed elevation Aspiration precautions. Upper extremity Doppler showed nonocclusive thrombus in the right axillary vein and brachial vein Currently on enoxaparin 70 mg subcutaneous Blood cultures revealed growth of yeast but not [place] albicans Currently on micafungin intravenous, Monitor renal function Monitor electrolytes, supplement as necessary T-max is 99.7 Patient is stable for downgrade from the pulmonary standpoint - FLYNN status (tele). Monitor respiratory status closely d/t aspiration. Labs and imaging reviewed Rest of plan as outlined below. Plan: S/p extubation on 06/07 On room air - supplemental oxygen PRN Titrate to keep sats above 92% CXR, ABG reviewed. Pressors as necessary for hemodynamic support Titrate to keep mean arterial pressure greater than 65 mmHg. Continue antibiotics. F/u cultures. Monitor hemoglobin Transfuse if less than 7.0 grams/deciliter Monitor renal function due to Acute kidney injury. Monitor electrolytes. Supplement as necessary. Surgery recommendations appreciated. Nutritional support. On TPN Accucheks, ISS. GI prophylaxis - Pantoprazole 40 DVT prophylaxis- on enoxaparin 70 SC Prognosis: Poor given multiple comorbidities. Rest of plan per hospitalist and other consultants. Thank you Dr Reid for allowing me to participate in this patient's care. Further recommendations will depend on patient's clinical course. Please do not hesitate to contact me if you have any questions or concerns. This medical document was created using an electronic medical record system with [employer] dictation system. Although this document has been carefully reviewed, there may still be some phonetic and typographical errors. These areas are purely typographical due to imperfections of the software programs, and do not reflect any compromise in the patient's medical care. Dietary Evaluation Review Comments: 1) Advance pt diet when medically feasible to a 2gmNa diet modified per MONOGRAM TECHNICIAN recommendations 2) Continue current plan of care Expected Outcomes/Goals: 1) Pt diet to advance 2) F/U in 2-3 days Plan discussed with: Other (YASH Norton) RG LEONE MD Jun 16, 2024 10:11
--- NOTE | 2024-06-16 14:02 | DVHPN2 ---
Subjective Better More alert Back to her baseline Reviewed: Care Plan, H&P, Labs, Medications, Previous Orders, Radiology Changes from previous H/P or p: Changes General: Per HPI Eyes: No Pain, No Vision change, No Conjunctivae inflammation, No Eyelid inflammation, No Other, No Redness ENT: No Ear pain, No Ear discharge, No Nose pain, No Nose discharge, No Nose congestion, No Mouth pain, No Mouth swelling, No Throat pain, No Throat swelling, No Other Cardiovascular: No Chest Pain, No Palpitations, No Orthopnea, No Paroxysmal Noc. Dyspnea, No Edema, No Lt Headedness, No Other Respiratory: No Cough, No Dry, No Shortness of breath, No SOB with excertion, No Wheezing, No Hemoptysis, No Pleuritic Pain, No Sputum, No Other Gastrointestinal: Nausea Genitourinary: No Dysuria, No Frequency, No Incontinence, No Hematuria, No Retention, No Other Musculoskeletal: No other, No neck pain, No shoulder pain, No arm pain, No back pain, No hand pain, No leg pain, No foot pain Skin: No Rash, No Lesions, No Jaundice, No Bruising, No Other Objective Vitals Vital Signs Date Time Temp Pulse Resp B/P (MAP) Pulse Ox O2 Delivery O2 Flow Rate FiO2 06/16/24 10:00 12 99 Room Air* 0 21 06/16/24 10:00 72 06/16/24 06:00 130/51 (77) 06/16/24 04:36 98.3 Intake/Output Intake and Output 06/16/24 07:00 Intake Total 1887 ml Output Total 2050 ml Balance -163 ml IV Total 1887 ml Output Urine Total 550 ml Stool Total 1425 ml Drainage Total 50 ml Other 25 ml General Appearance: moderate distress, Other (Intubated and sedated) HEENT: Atraumatic, PERRLA, Other (Pupils equal, 4 mm, reactive to light to 3 mm) Lungs: Clear to auscultation, Normal air movement, Other (Mechanical ventilation) Cardiovascular: Regular rate, Normal S1, Normal S2 Abdomen: Other (Ileostomy with drainage. 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) Skin: Dry, Intact, Other (Surgical incision dry and intact) Psych/Mental Status: Mental status NL, Mood NL Medications Current Medications Medications Dose Ordered Sig/Nora Route Start Time Stop Time Status Last Admin Dose Admin Acetaminophen 650 mg Q6HPRN PRN [place] 05/16/24 22:30 06/16/24 03:36 650 MG Pantoprazole Sodium 40 mg DAILY IV 05/17/24 10:00 06/16/24 10:16 40 MG Amino Acids 0 ml @ 0 mls/hr PER PHARMACY IV 05/17/24 08:30 Vancomycin HCl 0 ml @ 0 mls/hr UD IV 05/18/24 07:45 Cancel Norepinephrine Bitartrate 32 mg/ Sodium Chloride 250 ml @ 0.938 mls/ hr Q24H IV 05/18/24 16:00 06/04/24 12:06 0.938 MLS/HR Potassium Chloride 100 ml @ 50 mls/hr Q2H IV 05/22/24 12:30 05/22/24 16:29 Cancel Diagnostic Test (Pha) 1 strip Q6HR 05/24/24 12:00 06/16/24 11:55 1 STRIP Insulin Human Regular FOLLOW SLIDING SCALE Q6HR SC 05/24/24 12:00 06/16/24 12:02 8 UNITS Dextrose 50 ml UD IV 05/24/24 12:00 Enoxaparin Sodium 70 mg Q12HR SC 06/01/24 22:00 06/16/24 10:17 70 MG Labetalol HCl 10 mg Q2HPRN PRN IV 06/02/24 07:45 06/15/24 01:14 10 MG Hydralazine HCl 10 mg Q4HPRN PRN IV 06/08/24 12:45 Ondansetron HCl 4 mg Q4HPRN PRN IV 06/09/24 13:30 06/10/24 16:14 4 MG Nicotine 1 patch DAILY TD 06/11/24 10:00 06/16/24 10:25 1 PATCH Fluticasone Propionate 50 mcg Q12HR EACHNOSTRI 06/11/24 22:00 06/16/24 10:35 50 MCG Piperacillin Sod/ Tazobactam Sod 100 ml @ 25 mls/hr Q8HR IV 06/12/24 15:45 06/16/24 05:55 25 MLS/HR Metoprolol Tartrate 4 mg Q6HPRN PRN IV 06/13/24 10:45 Fluconazole 100 ml @ 100 mls/hr 10,11 IV 06/16/24 10:00 Cancel Fat Emulsion Intravenous 100 ml/Sodium Acetate 100 meq/Potassium Acetate 40 meq/ Magnesium Sulfate 14 meq/ Multivitamins 10 ml/Chromium/ Copper/Manganese/ Zinc 1 ml/Insulin Human Regular 26 units/Amino Acids/ Dextrose/Purified Water 1,734.76 ml @ 71 mls/hr [id number] IV 06/15/24 22:00 06/16/24 21:59 06/15/24 22:23 71 MLS/HR Voriconazole 200 mg/Dextrose 270 ml @ 135 mls/hr Q12H IV 06/16/24 18:00 Fat Emulsion Intravenous 100 ml/Sodium Chloride 30 meq/ Sodium Acetate 30 meq/Sodium Phosphate 20 meq/ Potassium Chloride 20 meq/ Potassium Phosphate 22 meq/ Magnesium Sulfate 14 meq/ Multivitamins 10 ml/Chromium/ Copper/Manganese/ Zinc 1 ml/Insulin Human Regular 30 units/Amino Aci... 1,757.3 ml @ 73 mls/hr Q24H5M IV 06/16/24 22:00 06/17/24 21:59 Laboratory Results Laboratory Tests 06/16/24 04:26 Chemistry Test 06/16/24 04:26 Albumin 3.7 g/dL (3.2-4.8) Calcium Level 10.1 mg/dL (8.7-10.4) Magnesium Level 2.1 mg/dL (1.6-2.6) Phosphorus Level 4.0 mg/dL (2.4-5.1) Total Protein 7.4 g/dL (5.7-8.2) LFT Test 06/16/24 04:26 Alanine Aminotransferase (ALT) 16 U/L (7-40) Alkaline Phosphatase 139 U/L (46-116) H Aspartate Amino Transferase (AST) 16 U/L (13-40) Total Bilirubin 1.0 mg/dL (0.2-1.0) Urinalysis Test 05/11/24 16:18 Urine Color Yellow (Yellow) Urine Clarity Clear (Clear) Urine pH 6.0 (5.0-9.0) Urine Specific [place] 1.020 (1.001-1.035) Urine Protein 1+ (Negative) H Urine Ketones 4+ (Negative) H Urine Blood Trace /uL (Negative) H Urine Nitrite Negative (Negative) Urine Bilirubin Negative (Negative) Urine Urobilinogen Normal mg/dL (Negative) Urine Leukocyte Esterase Negative /uL (Negative) Urine RBC 2 /hpf (0 - 4) Urine WBC 2 /hpf (0 - 5) Urine Squamous Epithelial Cells Few /hpf (<5) Urine Bacteria None seen /hpf (None Seen) Urine Mucus Few (None Seen) Urine Glucose Normal mg/dL (Normal) Microbiology Microbiology Date/Time Source Procedure Growth Status 06/12/24 16:00 Blood Blood Culture - Preliminary NO GROWTH AFTER 72 HOURS OF INCUBATION. Resulted 06/07/24 03:00 Abdomen Gram Stain - Final Complete 06/07/24 03:00 Abdomen Wound Culture - Final Complete 06/06/24 14:23 Urine - [place] Urine Culture - Final Complete 05/16/24 14:20 Sputum Gram Stain - Final Complete 05/16/24 14:20 Respiratory Culture - Final Yeast, not Shawanda albicans Complete Assessment/Plan Assessment/Plan Robotic surgery hysterectomy and salpingo-oophorectomy complicated by Acute CVA Acute CVA w LUE hemiparesis Bowel perforation with repeat exploratory laparotomy with ileostomy creation History of breast cancer with bilateral mastectomies Afib RVR Acute hypoxic respiratory failure Mechanical intubation Exploratory laparotomy, drainage of intraabdominal abscess, thorough peritoneal lavage with reinforcement of the anastomotic location of the previous anastomosis as well as a diverting loop ileostomy on 05/24/24 Anemia Right upper extremity DVT Plan Mechanical ventilation TPN IV antibiotics: Vancomycin + Meropenem No vasopressors Sedation prn GI Prophylaxis: Protonix Transfuse blood prn 05/29/24: Transfuse 1 unit RBCs for Hb 5.9 Lasix 20 mg IV x1 Check Hb after transfusion Off pressors Antibiotics: Meropenem, Vanco, Micafungin Amiodarone IV Taper sedation down as tolerated CXR: Clear TPN Protonix 05/30/24: Discussed with Dr. Fritz Lake Will do CT ABD pelvis to follow up on abscess IV antibiotics Taper sedation down C-PAP? per Dr. Poon 05/31/24: CT abdomen showed no fluid collection IV antibiotics: Meropenem, Vancomycin & Micafungin Amiodarone Dr. Fritz Lake recommended to continue medical treatment, no surgical intervention Sedation as needed TPN 06/01/2024: Start Lovenox 70 mg subQ q.[address] Lake and Neurology IV antibiotics meropenem and vancomycin Micafungin TPN Tapered down sedation as tolerated 06/02/24: Fever Yeast in cultures: Micafungin IV antibiotics: Meropenem & Vanco TPN RUE DVT: Lovenox Normocytic anemia 7.9 Consult ID [place] Cultures Afib: Amiodarone drip Discussed with her sister over the phone 06/03/2024: IV antibiotics: Meropenem and vancomycin IV antifungal: Micafungin TPN Amiodarone IV Dr. Fritz Lake for surgery is on the case 06/04/24: Abdominal infection: IV antibiotics: Meropenem, Vanco and Micafungin TPN Amiodarone Surgery on case: Will discuss with Dr. Fritz Lake regarding tracheostomy ID consult is pending Discussed with sister over the phone, family is agreeable with the trach Anemia: Transfuse one unit RBCs 06/05/24: Hypokalemia: Replace IV antibiotics: Meropenem and Vanco IV antifungals: Micafungin TPN Amiodarone Discussed with Dr. Lake regarding tracheostomy Remove central line PICC line 06/06/24: Repeat CT abdomen & pelvis Discussed with her sister Lianet over the phone Discussed the advance directives She stated that patient as stated before that she wants to be treated but only if she becomes a vegetable then she would stop the treatment The family for now would like to continue treatment We will get a new blood and urine and sputum cultures Continue IV antibiotics and IV antifungal Dr. Lake is evaluating the patient for possible tracheostomy in the next few days 06/07/2024: Off sedation CPAP trial TPN Amiodarone IV antibiotics and antifungals Full code 06/08/24: Afib RVR, start Metoprolol IV scheduled dose Amiodarone is off HTN: Hydralazine Rocephin Flagyl Micafungin TPN NGT to suction Lovenox Hydralazine 06/09/24: Continue current Tx IV antibiotics Metoprolol IV NPO Tube suction 06/11/2024: Patient is stable Fever: Continue IV antibiotics : Rocephin, Flagyl, micafungin Abdominal infection Acute CVA with left sided weakness Atrial fibrillation Hypertension TPN Lovenox IV metoprolol IV Protonix Discussed with her sister over the phone Nicotine patch 06/12/2024 Continue current management Downgrade to the FLYNN NPO TPN 06/13/24: Swallow eval Downgrade to FLYNN Start clear liquids if she can swallow IV antibiotics PRN Metoprolol for HR>110 Hydralazine for BP 06/14/24: Downgrade to FLYNN Pureed diet Continue antibiotics Physical therapy 06/15/24: Rule out CVA: Ct Head CT abd & pel Hold Lovenox Continue IV antibiotics Discussed with Dr. Fritz Lake 06/16/24: Resume diet Physical therapy IV antibiotics Resume Lovenox Aspirin Plan discussed with: Patient My Orders Orders - BARI MOORE MD Procedure Category Date Status Time Brain Head Wo Contrast MRI 06/15/24 Resulted 14:[address] 06/16/24 Logged 10:00 Mechanical Soft Diet DIET 06/16/24 Transmitted Lunch Date of Service: Jun 16, 2024 Billing Provider: BARI MOORE MD Common Visit Codes: NOT BILLABLE BARI MOORE MD Jun 16, 2024 14:02
[2024-06-16] MEDS: ASPirin 81 mg TAB PO ONE (16:08)
[2024-06-16] MEDS: Ensure HIGH Protein Vanilla 8oz Bottle PO SCH (18:00)
[2024-06-16] MEDS: VORICONAZOLE INJ 200 MG in D5W 5% 250 ML IV SCH (20:50)
[2024-06-16] MEDS: TPN PER PHARMACY IV NR (21:47)
[2024-06-17] VITALS (26 sets, daily range): BP systolic 92–154; BP diastolic 26–64; PULSE 81–101; RESP 16–28; TEMP 98.6–99.8; O2SAT 96–100
[2024-06-17 06:08] LABS: Alanine Aminotransferase 20 U/L (7-40); Alkaline Phosphatase 159 U/L (46-116); Anion Gap 8 (5-15); BUN/Creatinine Ratio 53.7 (10.0-20.0); Blood Urea Nitrogen 36 mg/dL (9-23); Calcium 10.1 mg/dL (8.7-10.4); Carbon Dioxide 27 mmol/L (20-31); Chloride 99 mmol/L (98-107); Glucose 152 mg/dL (74-106); Potassium 3.8 mmol/L (3.5-5.1); Sodium 134 mmol/L (136-145)
[2024-06-17 06:09] LABS: Albumin 3.6 g/dL (3.2-4.8); Aspartate Aminotransferase 16 U/L (13-40)
[2024-06-17 06:10] LABS: Bilirubin, Total 0.7 mg/dL (0.2-1.0); Phosphorus 3.8 mg/dL (2.4-5.1); Total Protein 7.5 g/dL (5.7-8.2)
--- NOTE | 2024-06-17 09:28 | ECG ---
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
--- NOTE | 2024-06-17 09:28 | ECG ---
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
--- NOTE | 2024-06-17 10:49 | DVHPN2 ---
Subjective Alert Follows commands Not answering questions though More lethargic than normal Reviewed: Care Plan, H&P, Labs, Medications, Previous Orders, Radiology Changes from previous H/P or p: Changes General: Per HPI Eyes: No Pain, No Vision change, No Conjunctivae inflammation, No Eyelid inflammation, No Other, No Redness ENT: No Ear pain, No Ear discharge, No Nose pain, No Nose discharge, No Nose congestion, No Mouth pain, No Mouth swelling, No Throat pain, No Throat swelling, No Other Cardiovascular: No Chest Pain, No Palpitations, No Orthopnea, No Paroxysmal Noc. Dyspnea, No Edema, No Lt Headedness, No Other Respiratory: No Cough, No Dry, No Shortness of breath, No SOB with excertion, No Wheezing, No Hemoptysis, No Pleuritic Pain, No Sputum, No Other Gastrointestinal: Nausea Genitourinary: No Dysuria, No Frequency, No Incontinence, No Hematuria, No Retention, No Other Musculoskeletal: No other, No neck pain, No shoulder pain, No arm pain, No back pain, No hand pain, No leg pain, No foot pain Skin: No Rash, No Lesions, No Jaundice, No Bruising, No Other Objective Vitals Vital Signs Date Time Temp Pulse Resp B/P (MAP) Pulse Ox O2 Delivery O2 Flow Rate FiO2 06/17/24 06:00 89 16 135/26 (62) 100 06/17/24 05:58 Room Air* 0 21 06/17/24 04:00 99.8 99.8 Intake/Output Intake and Output 06/17/24 07:00 Intake Total 2057 ml Output Total 2255 ml Balance -198 ml Intake Oral 200 ml IV Total 1857 ml Output Urine Total 1500 ml Stool Total 750 ml Drainage Total 5 ml Other 0 ml General Appearance: Alert, Oriented X3, Cooperative, No acute distress, m oderate distress HEENT: Atraumatic, PERRLA, Other (Pupils equal, 4 mm, reactive to light to 3 mm) Lungs: Clear to auscultation, Normal air movement, Other (Mechanical ventilation) Cardiovascular: Regular rate, Normal S1, Normal S2 Abdomen: Other (Ileostomy with drainage. 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) Skin: Dry, Intact, Other (Surgical incision dry and intact) Psych/Mental Status: Mental status NL, Mood NL Medications Current Medications Medications Dose Ordered Sig/Nora Route Start Time Stop Time Status Last Admin Dose Admin Acetaminophen 650 mg Q6HPRN PRN [place] 05/16/24 22:30 06/16/24 03:36 650 MG Pantoprazole Sodium 40 mg DAILY IV 05/17/24 10:00 06/16/24 10:16 40 MG Amino Acids 0 ml @ 0 mls/hr PER PHARMACY IV 05/17/24 08:30 Vancomycin HCl 0 ml @ 0 mls/hr UD IV 05/18/24 07:45 Cancel Norepinephrine Bitartrate 32 mg/ Sodium Chloride 250 ml @ 0.938 mls/ hr Q24H IV 05/18/24 16:00 06/04/24 12:06 0.938 MLS/HR Potassium Chloride 100 ml @ 50 mls/hr Q2H IV 05/22/24 12:30 05/22/24 16:29 Cancel Diagnostic Test (Pha) 1 strip Q6HR 05/24/24 12:00 06/17/24 05:52 1 STRIP Insulin Human Regular FOLLOW SLIDING SCALE Q6HR SC 05/24/24 12:00 06/17/24 05:52 2 UNITS Dextrose 50 ml UD IV 05/24/24 12:00 Enoxaparin Sodium 70 mg Q12HR SC 06/01/24 22:00 06/16/24 21:45 70 MG Labetalol HCl 10 mg Q2HPRN PRN IV 06/02/24 07:45 06/15/24 01:14 10 MG Hydralazine HCl 10 mg Q4HPRN PRN IV 06/08/24 12:45 Ondansetron HCl 4 mg Q4HPRN PRN IV 06/09/24 13:30 06/10/24 16:14 4 MG Nicotine 1 patch DAILY TD 06/11/24 10:00 06/16/24 10:25 1 PATCH Fluticasone Propionate 50 mcg Q12HR EACHNOSTRI 06/11/24 22:00 06/16/24 21:59 50 MCG Piperacillin Sod/ Tazobactam Sod 100 ml @ 25 mls/hr Q8HR IV 06/12/24 15:45 113/24 05:09 25 MLS/HR Metoprolol Tartrate 4 mg Q6HPRN PRN IV 06/13/24 10:45 Fluconazole 100 ml @ 100 mls/hr 10,11 IV 06/16/24 10:00 Cancel Voriconazole 200 mg/Dextrose 270 ml @ 135 mls/hr Q12H IV 06/16/24 18:00 06/17/24 05:10 135 MLS/HR Fat Emulsion Intravenous 100 ml/Sodium Chloride 30 meq/ Sodium Acetate 30 meq/Sodium Phosphate 20 meq/ Potassium Chloride 20 meq/ Potassium Phosphate 22 meq/ Magnesium Sulfate 14 meq/ Multivitamins 10 ml/Chromium/ Copper/Manganese/ Zinc 1 ml/Insulin Human Regular 30 units/Amino Aci... 1,757.3 ml @ 73 mls/hr Q24H5M IV 06/16/24 22:00 06/17/24 21:59 06/16/24 21:47 73 MLS/HR Aspirin 81 mg DAILY PO 06/17/24 10:00 Enteral Nutritional Formula 240 ml TIDWM PO 06/16/24 18:00 Laboratory Results Laboratory Tests 06/16/24 04:26 06/17/24 04:45 Chemistry Test 06/17/24 04:45 Albumin 3.6 g/dL (3.2-4.8) Calcium Level 10.1 mg/dL (8.7-10.4) Magnesium Level 2.0 mg/dL (1.6-2.6) Phosphorus Level 3.8 mg/dL (2.4-5.1) Total Protein 7.5 g/dL (5.7-8.2) LFT Test 06/17/24 04:45 Alanine Aminotransferase (ALT) 20 U/L (7-40) Alkaline Phosphatase 159 U/L (46-116) H Aspartate Amino Transferase (AST) 16 U/L (13-40) Total Bilirubin 0.7 mg/dL (0.2-1.0) Urinalysis Test 05/11/24 16:18 Urine Color Yellow (Yellow) Urine Clarity Clear (Clear) Urine pH 6.0 (5.0-9.0) Urine Specific [place] 1.020 (1.001-1.035) Urine Protein 1+ (Negative) H Urine Ketones 4+ (Negative) H Urine Blood Trace /uL (Negative) H Urine Nitrite Negative (Negative) Urine Bilirubin Negative (Negative) Urine Urobilinogen Normal mg/dL (Negative) Urine Leukocyte Esterase Negative /uL (Negative) Urine RBC 2 /hpf (0 - 4) Urine WBC 2 /hpf (0 - 5) Urine Squamous Epithelial Cells Few /hpf (<5) Urine Bacteria None seen /hpf (None Seen) Urine Mucus Few (None Seen) Urine Glucose Normal mg/dL (Normal) Microbiology Microbiology Date/Time Source Procedure Growth Status 06/12/24 16:00 Blood Blood Culture - Preliminary NO GROWTH AFTER 72 HOURS OF INCUBATION. Resulted 06/07/24 03:00 Abdomen Gram Stain - Final Complete 06/07/24 03:00 Abdomen Wound Culture - Final Complete 06/06/24 14:23 Urine - [place] Urine Culture - Final Complete 05/16/24 14:20 Sputum Gram Stain - Final Complete 05/16/24 14:20 Respiratory Culture - Final Yeast, not Shawanda albicans Complete Assessment/Plan Assessment/Plan Robotic surgery hysterectomy and salpingo-oophorectomy complicated by Acute CVA Acute CVA w LUE hemiparesis Bowel perforation with repeat exploratory laparotomy with ileostomy creation History of breast cancer with bilateral mastectomies Afib RVR Acute hypoxic respiratory failure Mechanical intubation Exploratory laparotomy, drainage of intraabdominal abscess, thorough peritoneal lavage with reinforcement of the anastomotic location of the previous anastomosis as well as a diverting loop ileostomy on 05/24/24 Anemia Right upper extremity DVT Plan Mechanical ventilation TPN IV antibiotics: Vancomycin + Meropenem No vasopressors Sedation prn GI Prophylaxis: Protonix Transfuse blood prn 05/29/24: Transfuse 1 unit RBCs for Hb 5.9 Lasix 20 mg IV x1 Check Hb after transfusion Off pressors Antibiotics: Meropenem, Vanco, Micafungin Amiodarone IV Taper sedation down as tolerated CXR: Clear TPN Protonix 05/30/24: Discussed with Dr. Fritz Lake Will do CT ABD pelvis to follow up on abscess IV antibiotics Taper sedation down C-PAP? per Dr. Poon 05/31/24: CT abdomen showed no fluid collection IV antibiotics: Meropenem, Vancomycin & Micafungin Amiodarone Dr. Fritz Lake recommended to continue medical treatment, no surgical intervention Sedation as needed TPN 06/01/2024: Start Lovenox 70 mg subQ q.[address] Lake and Neurology IV antibiotics meropenem and vancomycin Micafungin TPN Tapered down sedation as tolerated 06/02/24: Fever Yeast in cultures: Micafungin IV antibiotics: Meropenem & Vanco TPN RUE DVT: Lovenox Normocytic anemia 7.9 Consult ID [place] Cultures Afib: Amiodarone drip Discussed with her sister over the phone 06/03/2024: IV antibiotics: Meropenem and vancomycin IV antifungal: Micafungin TPN Amiodarone IV Dr. Fritz Lake for surgery is on the case 06/04/24: Abdominal infection: IV antibiotics: Meropenem, Vanco and Micafungin TPN Amiodarone Surgery on case: Will discuss with Dr. Fritz Lake regarding tracheostomy ID consult is pending Discussed with sister over the phone, family is agreeable with the trach Anemia: Transfuse one unit RBCs 06/05/24: Hypokalemia: Replace IV antibiotics: Meropenem and Vanco IV antifungals: Micafungin TPN Amiodarone Discussed with Dr. Lake regarding tracheostomy Remove central line PICC line 06/06/24: Repeat CT abdomen & pelvis Discussed with her sister Lianet over the phone Discussed the advance directives She stated that patient as stated before that she wants to be treated but only if she becomes a vegetable then she would stop the treatment The family for now would like to continue treatment We will get a new blood and urine and sputum cultures Continue IV antibiotics and IV antifungal Dr. Lake is evaluating the patient for possible tracheostomy in the next few days 06/07/2024: Off sedation CPAP trial TPN Amiodarone IV antibiotics and antifungals Full code 06/08/24: Afib RVR, start Metoprolol IV scheduled dose Amiodarone is off HTN: Hydralazine Rocephin Flagyl Micafungin TPN NGT to suction Lovenox Hydralazine 06/09/24: Continue current Tx IV antibiotics Metoprolol IV NPO Tube suction 06/11/2024: Patient is stable Fever: Continue IV antibiotics : Rocephin, Flagyl, micafungin Abdominal infection Acute CVA with left sided weakness Atrial fibrillation Hypertension TPN Lovenox IV metoprolol IV Protonix Discussed with her sister over the phone Nicotine patch 06/12/2024 Continue current management Downgrade to the FLYNN NPO TPN 06/13/24: Swallow eval Downgrade to FLYNN Start clear liquids if she can swallow IV antibiotics PRN Metoprolol for HR>110 Hydralazine for BP 06/14/24: Downgrade to FLYNN Pureed diet Continue antibiotics Physical therapy 06/15/24: Rule out CVA: Ct Head CT abd & pel Hold Lovenox Continue IV antibiotics Discussed with Dr. Fritz Lake 06/16/24: Resume diet Physical therapy IV antibiotics Resume Lovenox Aspirin 06/17/2024: Continue TPN for now since the patient does not have adequate p.o. intake yet Advance diet as tolerated Due to the lethargy and confusion, we will do scott cultures of the urine and blood and wound and urinalysis Continue Aspirin Continue Lovenox Physical therapy IV antibiotics: Voriconazole, Zosyn Plan discussed with: Patient, Other My Orders Orders - BARI MOORE MD Procedure Category Date Status Time Mechanical Soft Diet DIET 06/16/24 Transmitted Lunch Aspirin Tablet PHA 06/17/24 In Process 10:00 Nutritional PHA 06/16/24 In Process Supplements (Ensure 18:00 Blood Culture MIROSLAVA 06/17/24 Logged 10:19 Urine Bacterial MIROSLAVA 06/17/24 Uncollected Culture 10:19 Date of Service: Jun 17, 2024 Billing Provider: BARI MOORE MD Common Visit Codes: NOT BILLABLE BARI MOROE MD Jun 17, 2024 10:49
[2024-06-17] MEDS: ASPirin 81 mg TAB PO SCH (11:22)
--- NOTE | 2024-06-17 14:49 | DVHPN2 ---
Progress Note Date Seen: Jun 17, 2024 Has the PT tested + for MRSA If YES, has PT been informed?: No Medical Necessity Reason Pt with a Central, PICC or Fol: Yes The following are medically ne: Muhammad Catheter Reason for muhammad catheter: Strict I&O Objective vital signs Vital Sign Date Time Temp Pulse Resp B/P (MAP) Pulse Ox O2 Delivery O2 Flow Rate FiO2 06/17/24 12:00 90 06/17/24 12:00 98.7 24 134/39 (70) 97 98.7 06/17/24 12:00 Room Air* 0 21 Total Intake and Output 06/16/24 06/16/24 06/17/24 15:00 23:00 07:00 Intake Total 568 ml 978 ml 511 ml Output Total 1150 ml 1105 ml Balance 568 ml -172 ml -594 ml medications Current Medications Medications Dose Ordered Sig/Nora Route Start Time Stop Time Status Last Admin Dose Admin Acetaminophen 650 mg Q6HPRN PRN [place] 05/16/24 22:30 06/16/24 03:36 650 MG Pantoprazole Sodium 40 mg DAILY IV 05/17/24 10:00 06/17/24 11:14 40 MG Amino Acids 0 ml @ 0 mls/hr PER PHARMACY IV 05/17/24 08:30 Vancomycin HCl 0 ml @ 0 mls/hr UD IV 05/18/24 07:45 Cancel Potassium Chloride 100 ml @ 50 mls/hr Q2H IV 05/22/24 12:30 05/22/24 16:29 Cancel Diagnostic Test (Pha) 1 strip Q6HR 05/24/24 12:00 06/17/24 12:17 1 STRIP Insulin Human Regular FOLLOW SLIDING SCALE Q6HR SC 05/24/24 12:00 06/17/24 12:17 8 UNITS Dextrose 50 ml UD IV 05/24/24 12:00 Enoxaparin Sodium 70 mg Q12HR SC 06/01/24 22:00 06/17/24 11:21 70 MG Labetalol HCl 10 mg Q2HPRN PRN IV 06/02/24 07:45 06/15/24 01:14 10 MG Hydralazine HCl 10 mg Q4HPRN PRN IV 06/08/24 12:45 Ondansetron HCl 4 mg Q4HPRN PRN IV 06/09/24 13:30 06/10/24 16:14 4 MG Nicotine 1 patch DAILY TD 06/11/24 10:00 06/17/24 11:19 1 PATCH Fluticasone Propionate 50 mcg Q12HR EACHNOSTRI 06/11/24 22:00 06/17/24 11:25 50 MCG Piperacillin Sod/ Tazobactam Sod 100 ml @ 25 mls/hr Q8HR IV 06/12/24 15:45 06/17/24 14:28 25 MLS/HR Metoprolol Tartrate 4 mg Q6HPRN PRN IV 06/13/24 10:45 Fluconazole 100 ml @ 100 mls/hr 10,11 IV 06/16/24 10:00 Cancel Voriconazole 200 mg/Dextrose 270 ml @ 135 mls/hr Q12H IV 06/16/24 18:00 06/17/24 05:10 135 MLS/HR Fat Emulsion Intravenous 100 ml/Sodium Chloride 30 meq/ Sodium Acetate 30 meq/Sodium Phosphate 20 meq/ Potassium Chloride 20 meq/ Potassium Phosphate 22 meq/ Magnesium Sulfate 14 meq/ Multivitamins 10 ml/Chromium/ Copper/Manganese/ Zinc 1 ml/Insulin Human Regular 30 units/Amino Aci... 1,757.3 ml @ 73 mls/hr Q24H5M IV 06/16/24 22:00 06/17/24 21:59 06/16/24 21:47 73 MLS/HR Aspirin 81 mg DAILY PO 06/17/24 10:00 06/17/24 11:22 81 MG Enteral Nutritional Formula 240 ml TIDWM PO 06/16/24 18:00 06/17/24 12:00 240 ML Fat Emulsion Intravenous 100 ml/Sodium Chloride 60 meq/ Sodium Phosphate 40 meq/Potassium Chloride 40 meq/ Potassium Phosphate 22 meq/ Magnesium Sulfate 16 meq/ Multivitamins 10 ml/Chromium/ Copper/Manganese/ Zinc 1 ml/Insulin Human Regular 30 units/Amino Acids/ Dextrose/Purified Water 1,765.3 ml @ 73 mls/hr [id number] IV 06/17/24 22:00 06/18/24 21:59 laboratory and microbiology Laboratory Tests 06/17/24 04:45 06/16/24 04:26 Test 06/17/24 04:45 Range/Units Serum Glucose 152 H 74-106 mg/dL Microbiology Date/Time Source Procedure Growth Status 10/29/24 16:00 Blood Blood Culture - Preliminary NO GROWTH AFTER 72 HOURS OF INCUBATION. Resulted 06/07/24 03:00 Abdomen Gram Stain - Final Complete 06/07/24 03:00 Abdomen Wound Culture - Final Complete 06/06/24 14:23 Urine - Muhammad Port Urine Culture - Final Complete 05/16/24 14:20 Sputum Gram Stain - Final Complete 05/16/24 14:20 Respiratory Culture - Final Yeast, not Shawanda albicans Complete Problem List/Assessment/Plan Problem List/Assessment/Plan AFEBRILE VSS WBC WNL ABD SOFT DRAINS IN PLACE 5 CC PURULENT L 10 CC PURULENT DRESSING ABD WOUND DRAINAGE LESS CONDITION GUARDED ILEOSTOMY VIABLE AND FUNCTIONAL NURSE AT BEDSIDE CONTINUE SUPPORTIVE CARE CONTINUE ID EVAL AND IV ABX NURSE AT BEDSIDE FAMILY AWARE AND UPDATED RE HER ONGOING CARE AND CONDITION Plan discussed with: Patient Dietary Evaluation Review Comments: 1) Advance pt diet when medically feasible to a 2gmNa diet modified per [employer]QU[employer] RESEARCH ASSOCIATE recommendations 2) Continue current plan of care Expected Outcomes/Goals: 1) Pt diet to advance 2) F/U in 2-3 days SHEY COVARRUBIAS MD Jun 17, 2024 14:49
--- NOTE | 2024-06-17 18:36 | DVHPN2 ---
Consult Progress Note Date Seen: Jun 16, 2024 Subjective Patient reports: Feels better (not lethargic tolerating po intake) Objective vital signs Vital Sign Date Time Temp Pulse Resp B/P (MAP) Pulse Ox O2 Delivery O2 Flow Rate FiO2 06/17/24 15:00 92 21 130/56 (80) 98 06/17/24 14:00 Room Air* 0 21 06/17/24 12:00 98.7 98.7 Total Intake and Output 06/16/24 06/16/24 06/17/24 15:00 23:00 07:00 Intake Total 568 ml 978 ml 584 ml Output Total 1150 ml 1105 ml Balance 568 ml -172 ml -521 ml medications Current Medications Medications Dose Ordered Sig/Nora Route Start Time Stop Time Status Last Admin Dose Admin Acetaminophen 650 mg Q6HPRN PRN [place] 05/16/24 22:30 06/16/24 03:36 650 MG Pantoprazole Sodium 40 mg DAILY IV 05/17/24 10:00 06/17/24 11:14 40 MG Amino Acids 0 ml @ 0 mls/hr PER PHARMACY IV 05/17/24 08:30 Vancomycin HCl 0 ml @ 0 mls/hr UD IV 05/18/24 07:45 Cancel Potassium Chloride 100 ml @ 50 mls/hr Q2H IV 05/22/24 12:30 05/22/24 16:29 Cancel Diagnostic Test (Pha) 1 strip Q6HR 05/24/24 12:00 06/17/24 17:44 1 STRIP Insulin Human Regular FOLLOW SLIDING SCALE Q6HR SC 05/24/24 12:00 06/17/24 17:47 4 UNITS Dextrose 50 ml UD IV 05/24/24 12:00 Enoxaparin Sodium 70 mg Q12HR SC 06/01/24 22:00 06/17/24 11:21 70 MG Labetalol HCl 10 mg Q2HPRN PRN IV 06/02/24 07:45 06/15/24 01:14 10 MG Hydralazine HCl 10 mg Q4HPRN PRN IV 06/08/24 12:45 Ondansetron HCl 4 mg Q4HPRN PRN IV 06/09/24 13:30 06/10/24 16:14 4 MG Nicotine 1 patch DAILY TD 06/11/24 10:00 06/17/24 11:19 1 PATCH Fluticasone Propionate 50 mcg Q12HR EACHNOSTRI 06/11/24 22:00 06/17/24 11:25 50 MCG Piperacillin Sod/ Tazobactam Sod 100 ml @ 25 mls/hr Q8HR IV 06/12/24 15:45 06/17/24 14:28 25 MLS/HR Metoprolol Tartrate 4 mg Q6HPRN PRN IV 06/13/24 10:45 Fluconazole 100 ml @ 100 mls/hr 10,11 IV 06/16/24 10:00 Cancel Voriconazole 200 mg/Dextrose 270 ml @ 135 mls/hr Q12H IV 06/16/24 18:00 06/17/24 17:48 135 MLS/HR Fat Emulsion Intravenous 100 ml/Sodium Chloride 30 meq/ Sodium Acetate 30 meq/Sodium Phosphate 20 meq/ Potassium Chloride 20 meq/ Potassium Phosphate 22 meq/ Magnesium Sulfate 14 meq/ Multivitamins 10 ml/Chromium/ Copper/Manganese/ Zinc 1 ml/Insulin Human Regular 30 units/Amino Aci... 1,757.3 ml @ 73 mls/hr Q24H5M IV 06/16/24 22:00 06/17/24 21:59 06/16/24 21:47 73 MLS/HR Aspirin 81 mg DAILY PO 06/17/24 10:00 06/17/24 11:22 81 MG Enteral Nutritional Formula 240 ml TIDWM PO 06/16/24 18:00 06/17/24 12:00 240 ML Fat Emulsion Intravenous 100 ml/Sodium Chloride 60 meq/ Sodium Phosphate 40 meq/Potassium Chloride 40 meq/ Potassium Phosphate 22 meq/ Magnesium Sulfate 16 meq/ Multivitamins 10 ml/Chromium/ Copper/Manganese/ Zinc 1 ml/Insulin Human Regular 30 units/Amino Acids/ Dextrose/Purified Water 1,765.3 ml @ 73 mls/hr [id number] IV 06/17/24 22:00 06/18/24 21:59 PHYSICAL EXAM: - GENERAL: Alert and oriented x 3. No acute distress. Well-nourished. - EYES: EOMI. Anicteric. - HENT: Moist mucous membranes. No scleral icterus. No cervical lymphadenopathy. - LUNGS: Clear to auscultation bilaterally. No accessory muscle use. - CARDIOVASCULAR: Regular rate and rhythm. No murmur. No JVD. - ABDOMEN: Soft, non-tender and non-distended. No palpable masses. - EXTREMITIES: No edema. Non-tender.?SKIN: No rashes or lesions. Warm. - NEUROLOGIC: No focal neurological deficits. CN II-XII grossly intact, but not individually tested. - PSYCHIATRIC: Cooperative. Appropriate mood and affect. laboratory and microbiology Laboratory Tests 06/17/24 04:45 06/16/24 04:26 Test 06/17/24 04:45 Range/Units Serum Glucose 152 H 74-106 mg/dL Problem List/Assessment/Plan Problem List/Assessment/Plan Assessment and Plan: ID Problem List: 1. Small bowel obstruction with perforation 2. Septic shock 3. Stroke, right MCA territory 4. Hypertension 5. Anemia 6. Breast cancer 7. Bilateral mastectomy 8. Post-surgical complications (including ileostomy creation) 9. Fungal infection (yeast not Radha albicans) 10. Strep Viridans Group B infection Assessment: This is a 68-year-old female, with a significant past medical history of anemia, hypertension, breast cancer status post bilateral mastectomy, and a 50 pack-year smoking history (now quit), who was initially admitted for a robotic hysterectomy with bilateral salpingectomy, removal of a right ovarian mass, cystocele repair with urethral sling. Postoperatively, she developed hypertension and nausea, necessitating overnight admission. Post-admission, she endured a cerebrovascular accident primarily impacting the right MCA territory and contributing to left-sided weakness. Subsequent evaluations included MRI and CT head scans that confirmed multiple acute and subacute infarcts. Later complications included progression to an acute small bowel obstruction with perforation, leading to emergent exploratory laparotomy and subsequent ileostomy creation. Cultures from the surgical sites revealed a non-Radha albicans yeast and Strep Viridans Group B infection. The patient continues to require ICU support, primarily due to ongoing septic shock and the need for ventilatory assistance. Patient remains intubated with vasopressors being weaned off. Recent WBC count was 16.9 and hemoglobin levels have fluctuated, dropping as low as 5.9. She has been transitioned to a multi-antibiotic regimen including meropenem, vancomycin, and TPN for nutritional support. 06/04: hemoglobin of 6.9, suspect ongoing blood loss. Preliminary blood cultures are no growth for 48 hours as well as wound and urine cultures with no growth 06/05: hemoglobin of 8.4 after blood transfusion. Repeat cultures of the abdomen is showing no organisms 06/06: Ct pelvis abdomen shows fairly stable appearing radio dense contrast in the central mid abdomen with adjacent surgical sutures. Small bowel ascites. drainage catheter terminating in the pelvis and upper abdomen, stable appearing intraabdominal acities. extensive post-surgical changes that ate unchanged. a small to moderate right mid size plural effusion. Chest x-ray was done and shows no focal consolidation in the lungs 06/07: Chest x-ray done before the excavation, showing pulmonary disease 06/08: Abdominal drain fluids and patients surgical site has been cultured. Removal of catheter tip from yesterday shows staphylococcus and micrococcus , likely skin florac contamination . White count of 12.4 today and will continue to monitor 06/12: has been having persistent fevers for the last 48 hours , chest x-ray appears clear , leukocytosis , fungus was growing from operative cultures , filamentous. Raising possibilities of fussarium, aspergillus , penicillium , although these are less likely than radha. suspect that patient is having a rise in fevers due to untreated bacteria . 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 vascular surgery was recommended for intervention of left ICA. Put back on NPL status , remains lethargic aphasic , no speaking , no weakness in upper extremities or lower , arousable but lethargic. started on statin continued on anticoagulation. MRI of brain shows subacute involving the high convexity right frontal lobe with additional smaller focus over the right anterior mid convexity focus over the right mid convex 70% parieteal lobe Plan: - defer plan to neurology on management of stroke - since patient is NPO switch back to IV fluconazole 1. continue Zosyn 3. check blood cultures and check surgical site wound culture 4. Provide ICU support with ventilator for respiratory status and hemodynamic monitoring. 5. Supportive care measures for septic shock, including fluid resuscitation and vasopressor management. 6. Monitor and maintain drainage output. 7. Ensure adequate nutritional support through TPN. 8. Follow-up with surgical team for wound care and any necessary surgical interventions. Authorized and Performed by: toshia ayala MD Total critical care time: Approximately 67 minutes Due to a high probability of clinically significant, life threatening deterioration, the patient required my highest level of preparedness to intervene emergently and I personally spent this critical care time directly and personally managing the patient. This critical care time included obtaining a history; examining the patient; pulse oximetry; ordering and review of studies; arranging urgent treatment with development of a management plan; evaluation of patient's response to treatment; frequent reassessment; and, discussions with other providers. This critical care time was performed to assess and manage the high probability of imminent, life-threatening deterioration that could result in multi-organ failure. It was exclusive of separately billable procedures and treating other patients and teaching time. Plan discussed with: Patient Dietary Evaluation Review Comments: 1) Advance pt diet when medically feasible to a 2gmNa diet modified per GLASS BENDER recommendations 2) Continue current plan of care Expected Outcomes/Goals: 1) Pt diet to advance 2) F/U in 2-3 days TOSHIA AYALA MD Jun 17, 2024 18:36
--- NOTE | 2024-06-17 19:32 | DVHPN2 ---
Consult Progress Note Date Seen: Jun 17, 2024 Subjective Patient reports: Feels better (more awake and alert , tolerating feeds , passed bedside swallow exam , having stool outputs through ostomy ) Objective vital signs Vital Sign Date Time Temp Pulse Resp B/P (MAP) Pulse Ox O2 Delivery O2 Flow Rate FiO2 06/17/24 18:00 21 98 Room Air* 0 21 06/17/24 18:00 94 127/52 (77) 06/17/24 16:00 98.7 98.7 Total Intake and Output 06/16/24 06/16/24 06/17/24 15:00 23:00 07:00 Intake Total 568 ml 978 ml 584 ml Output Total 1150 ml 1105 ml Balance 568 ml -172 ml -521 ml medications Current Medications Medications Dose Ordered Sig/Nora Route Start Time Stop Time Status Last Admin Dose Admin Acetaminophen 650 mg Q6HPRN PRN [place] 05/16/24 22:30 06/16/24 03:36 650 MG Pantoprazole Sodium 40 mg DAILY IV 05/17/24 10:00 06/17/24 11:14 40 MG Amino Acids 0 ml @ 0 mls/hr PER PHARMACY IV 05/17/24 08:30 Vancomycin HCl 0 ml @ 0 mls/hr UD IV 05/18/24 07:45 Cancel Potassium Chloride 100 ml @ 50 mls/hr Q2H IV 05/22/24 12:30 05/22/24 16:29 Cancel Diagnostic Test (Pha) 1 strip Q6HR 05/24/24 12:00 06/17/24 17:44 1 STRIP Insulin Human Regular FOLLOW SLIDING SCALE Q6HR SC 05/24/24 12:00 06/17/24 17:47 4 UNITS Dextrose 50 ml UD IV 05/24/24 12:00 Enoxaparin Sodium 70 mg Q12HR SC 06/01/24 22:00 06/17/24 11:21 70 MG Labetalol HCl 10 mg Q2HPRN PRN IV 06/02/24 07:45 06/15/24 01:14 10 MG Hydralazine HCl 10 mg Q4HPRN PRN IV 06/08/24 12:45 Ondansetron HCl 4 mg Q4HPRN PRN IV 06/09/24 13:30 06/10/24 16:14 4 MG Nicotine 1 patch DAILY TD 06/11/24 10:00 06/17/24 11:19 1 PATCH Fluticasone Propionate 50 mcg Q12HR EACHNOSTRI 06/11/24 22:00 06/17/24 11:25 50 MCG Piperacillin Sod/ Tazobactam Sod 100 ml @ 25 mls/hr Q8HR IV 06/12/24 15:45 06/17/24 14:28 25 MLS/HR Metoprolol Tartrate 4 mg Q6HPRN PRN IV 06/13/24 10:45 Fluconazole 100 ml @ 100 mls/hr 10,11 IV 06/16/24 10:00 Cancel Fat Emulsion Intravenous 100 ml/Sodium Chloride 30 meq/ Sodium Acetate 30 meq/Sodium Phosphate 20 meq/ Potassium Chloride 20 meq/ Potassium Phosphate 22 meq/ Magnesium Sulfate 14 meq/ Multivitamins 10 ml/Chromium/ Copper/Manganese/ Zinc 1 ml/Insulin Human Regular 30 units/Amino Aci... 1,757.3 ml @ 73 mls/hr Q24H5M IV 06/16/24 22:00 06/17/24 21:59 06/16/24 21:47 73 MLS/HR Aspirin 81 mg DAILY PO 06/17/24 10:00 06/17/24 11:22 81 MG Enteral Nutritional Formula 240 ml TIDWM PO 06/16/24 18:00 06/17/24 12:00 240 ML Fat Emulsion Intravenous 100 ml/Sodium Chloride 60 meq/ Sodium Phosphate 40 meq/Potassium Chloride 40 meq/ Potassium Phosphate 22 meq/ Magnesium Sulfate 16 meq/ Multivitamins 10 ml/Chromium/ Copper/Manganese/ Zinc 1 ml/Insulin Human Regular 30 units/Amino Acids/ Dextrose/Purified Water 1,765.3 ml @ 73 mls/hr [id number] IV 06/17/24 22:00 06/18/24 21:59 PHYSICAL EXAM: - GENERAL: Alert and oriented x 3. No acute distress. Well-nourished. - EYES: EOMI. Anicteric. - HENT: Moist mucous membranes. No scleral icterus. No cervical lymphadenopathy. - LUNGS: Clear to auscultation bilaterally. No accessory muscle use. - CARDIOVASCULAR: Regular rate and rhythm. No murmur. No JVD. - ABDOMEN: Soft, non-tender and non-distended. No palpable masses. - EXTREMITIES: No edema. Non-tender.?SKIN: No rashes or lesions. Warm. - NEUROLOGIC: No focal neurological deficits. CN II-XII grossly intact, but not individually tested. - PSYCHIATRIC: Cooperative. Appropriate mood and affect. laboratory and microbiology Laboratory Tests 06/17/24 04:45 06/16/24 04:26 Test 06/17/24 04:45 Range/Units Serum Glucose 152 H 74-106 mg/dL Problem List/Assessment/Plan Problems(with codes): (1) Fungal infection (2) Intra-abdominal abscess (3) SBO (small bowel obstruction) (4) Stroke (5) Anemia (6) Breast cancer (7) Hypertension Problem List/Assessment/Plan Assessment and Plan: ID Problem List: 1. Small bowel obstruction with perforation 2. Septic shock 3. Stroke, right MCA territory 4. Hypertension 5. Anemia 6. Breast cancer 7. Bilateral mastectomy 8. Post-surgical complications (including ileostomy creation) 9. Fungal infection (yeast not Radha albicans) 10. Strep Viridans Group B infection Assessment: This is a 68-year-old female, with a significant past medical history of anemia, hypertension, breast cancer status post bilateral mastectomy, and a 50 pack-year smoking history (now quit), who was initially admitted for a robotic hysterectomy with bilateral salpingectomy, removal of a right ovarian mass, cystocele repair with urethral sling. Postoperatively, she developed hypertension and nausea, necessitating overnight admission. Post-admission, she endured a cerebrovascular accident primarily impacting the right MCA territory and contributing to left-sided weakness. Subsequent evaluations included MRI and CT head scans that confirmed multiple acute and subacute infarcts. Later complications included progression to an acute small bowel obstruction with perforation, leading to emergent exploratory laparotomy and subsequent ileostomy creation. Cultures from the surgical sites revealed a non-Radha albicans yeast and Strep Viridans Group B infection. The patient continues to require ICU support, primarily due to ongoing septic shock and the need for ventilatory assistance. Patient remains intubated with vasopressors being weaned off. Recent WBC count was 16.9 and hemoglobin levels have fluctuated, dropping as low as 5.9. She has been transitioned to a multi-antibiotic regimen including meropenem, vancomycin, and TPN for nutritional support. 06/04: hemoglobin of 6.9, suspect ongoing blood loss. Preliminary blood cultures are no growth for 48 hours as well as wound and urine cultures with no growth 10/22: hemoglobin of 8.4 after blood transfusion. Repeat cultures of the abdomen is showing no organisms 06/06: Ct pelvis abdomen shows fairly stable appearing radio dense contrast in the central mid abdomen with adjacent surgical sutures. Small bowel ascites. drainage catheter terminating in the pelvis and upper abdomen, stable appearing intraabdominal acities. extensive post-surgical changes that ate unchanged. a small to moderate right mid size plural effusion. Chest x-ray was done and shows no focal consolidation in the lungs 06/07: Chest x-ray done before the excavation, showing pulmonary disease 06/08: Abdominal drain fluids and patients surgical site has been cultured. Removal of catheter tip from yesterday shows staphylococcus and micrococcus , likely skin florac contamination . White count of 12.4 today and will continue to monitor 06/12: has been having persistent fevers for the last 48 hours , chest x-ray appears clear , leukocytosis , fungus was growing from operative cultures , filamentous. Raising possibilities of fussarium, aspergillus , penicillium , although these are less likely than radha. suspect that patient is having a rise in fevers due to untreated bacteria . 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 vascular surgery was recommended for intervention of left ICA. Put back on NPL status , remains lethargic aphasic , no speaking , no weakness in upper extremities or lower , arousable but lethargic. started on statin continued on anticoagulation. MRI of brain shows subacute involving the high convexity right frontal lobe with additional smaller focus over the right anterior mid convexity focus over the right mid convex 70% parieteal lobe 06/17: Patient has been on IV micafungen and fruconazol since 05/23 , is tolerating feeds through mouth without any difficulty Plan: - Stop antifungal therapy at this time after a complete 30 course for intraabdominal abscess - defer plan to neurology on management of stroke 1. continue IV Zosyn, will monitor patient clinically and plan to transition to oral fluoroquinolone therapy in the next 1-2 days 3. check blood cultures and check surgical site wound culture 4. Provide ICU support with ventilator for respiratory status and hemodynamic monitoring. 5. Supportive care measures for septic shock, including fluid resuscitation and vasopressor management. 6. Monitor and maintain drainage output. 7. Ensure adequate nutritional support through TPN. 8. Follow-up with surgical team for wound care and any necessary surgical interventions. Authorized and Performed by: toshia ayala MD Total critical care time: Approximately 67 minutes Due to a high probability of clinically significant, life threatening deterioration, the patient required my highest level of preparedness to intervene emergently and I personally spent this critical care time directly and personally managing the patient. This critical care time included obtaining a history; examining the patient; pulse oximetry; ordering and review of studies; arranging urgent treatment with development of a management plan; evaluation of patient's response to treatment; frequent reassessment; and, discussions with other providers. This critical care time was performed to assess and manage the high probability of imminent, life-threatening deterioration that could result in multi-organ failure. It was exclusive of separately billable procedures and treating other patients and teaching time. Plan discussed with: Other Dietary Evaluation Review Comments: 1) Advance pt diet when medically feasible to a 2gmNa diet modified per PHARMACY INTAKE COORDINATOR recommendations 2) Continue current plan of care Expected Outcomes/Goals: 1) Pt diet to advance 2) F/U in 2-3 days TOSHIA AYALA MD Jun 17, 2024 19:32
[2024-06-17] MEDS: TPN PER PHARMACY IV NR (21:22)
[2024-06-18] VITALS (25 sets, daily range): BP systolic 100–131; BP diastolic 27–65; PULSE 86–107; RESP 16–29; TEMP 98.1–99.8; O2SAT 96–99
[2024-06-18 05:34] LABS: Basophils # (auto) 0 10 ^3/uL (0-0.2); Basophils % (auto) 0.2 % (0.0-2.0); Eosinophils # (auto) 0.1 10 ^3/uL (0-0.8); Eosinophils % (auto) 0.6 % (0.0-7.0); Hematocrit 27.4 % (36.0-46.0); Lymphocytes # (auto) 0.9 10 ^3/uL (0.4-5.4); Lymphocytes % (auto) 6.5 % (10.0-50.0); Mean Corpuscular Hemoglobin 29.7 pg (28.0-32.0); Mean Corpuscular Volume 90.2 fL (80.0-100.0); Monocytes % (auto) 6.9 % (0.0-12.0); Neutrophils # (auto) 12.3 10 ^3/uL (1.6-8.6); Neutrophils % (auto) 85.8 % (37.0-80.0); Platelet Count (auto) 343 10^3/uL (140-450); Red Blood Cells 3.04 10^6/uL (4.0-5.20); White Blood Cell 14.3 10^3/uL (4.4-10.8)
[2024-06-18 05:43] LABS: Alanine Aminotransferase 22 U/L (7-40); Albumin 3.6 g/dL (3.2-4.8); Alkaline Phosphatase 167 U/L (46-116); Anion Gap 11 (5-15); Aspartate Aminotransferase 30 U/L (13-40); Bilirubin, Total 0.8 mg/dL (0.2-1.0); Blood Urea Nitrogen 27 mg/dL (9-23); Calcium 9.8 mg/dL (8.7-10.4); Carbon Dioxide 20 mmol/L (20-31); Chloride 101 mmol/L (98-107); Glucose 187 mg/dL (74-106); Magnesium 2.1 mg/dL (1.6-2.6); Phosphorus 4.9 mg/dL (2.4-5.1); Potassium 4.6 mmol/L (3.5-5.1); Sodium 132 mmol/L (136-145); Total Protein 7.5 g/dL (5.7-8.2)
--- NOTE | 2024-06-18 08:30 | DVHPN2 ---
Progress Note - Dictate Date Seen: Jun 18, 2024 Has the PT tested + for MRSA If YES, has PT been informed?: No Medical Necessity Reason Pt with a Central, PICC or Fol: Yes The following are medically ne: Muhammad Catheter Reason for muhammad catheter: Strict I&O Subjective Ms. Barrera is a 68 years old right-handed female with a history of hypertension, anemia, breast cancer, she was admitted to the [facility] on 05/07/2024 for scheduled hysterectomy and oophorectomy. Post surgically, she woke up with left-sided weakness, and MRI showed multiple stroke in the right MCA territory. During the hospital stay, she developed fall perforation, and she went through abdominal surgery on 05/16/2024 Because of ongoing intraperitoneal sepsis/peritonitis, the patient went through exploratory laparotomy on 05/24/2024 I have seen and examined the patient in the [facility], I have discussed with her nurse. She is awake, oriented to person, place, she knows the year, socially appropriate, Because deteriorated in the mental status, the patient had an MRI brain scan which showed new strokes in the right MCA territory The right pupil still bigger than left side, 4-5 versus 4 mm, mild left eyelid ptosis CBC, 05/16/2024: Metabolic acidosis, 05/17/2024: Metabolic acidosis, 05/18/2024: Metabolic acidosis URINALYSIS, 05/11/2024: WBC: 2, URINE LEUKOCYTE ESTERASE: NEGATIVE WBC/HB/PLT/MCV, 05/04: 5.1/10.7/119/98.3, 05/17/2024: 20.4/8.5/205/86.9 05/19/2024: 12.2/11.1/125/86.2, 05/20/2024: 8.1/10.5/113/86.1, 05/21/2024: 6.6/10.5/106/86.5, 05/26/2024: 9.6/9.2/184/93.8, 05/28/2024: 7.5/7/223/89.6, 05/29/24: 6.8/5.9/251/88.1, 05/30/2024: 7.4/7.7/268/86.6, 06/10/2024: 12.1/9.3/338/88.2 06/18/2024: 14.3/9/343/90.2 PT/INR/FTT, 05/16/2024: 17.4/1.71/34.2 Na 06/18/2024: 132 K, 05/09/2024: 3.9, 05/10/24:3.1, 05/12/2024: 3.4, 05/16/2024: 2.8 Lactic acid, 05/15/2024: 1.6, 05/16/2024: 1.5 HCO3, 05/23/2024: 35 Bun.Cr, 05/23/2024: 37/0.75 LIVER FUNCTION TESTS, 05/12/2024: UNREMARKABLE, 05/16/2024: Unremarkable TBI/AST/ALT/AP, 05/18/2024: 1.2/8//47, 05/19/2024: 3.1/04/23/2067, 05/23/2024: 3.1/48/35/170, 05/29/2024: 2.3/29/21/117 TG/HDL/LDL/HDL, 05/12/2024: 196/134/75/23 TSH, 05/12/2024: 2.01 Echocardiogram 05/14/2024: lvef 65% by visual estimate mild mitral regurg RV enlarged mild left atrium enlarged mild Extremity venous study, 06/01/2024: No left upper extremity DVT. Right internal jugular vein and subclavian vein are not visualized secondary to patient positioning. Nonocclusive thrombus is seen in the right axillary vein and brachial vein. Occlusive thrombus is present at the right cephalic vein. Carotid Doppler, 05/11/2024: 1. Occlusion of the right proximal ICA. 2. Greater than 50% stenosis of the right proximal ECA. 3. Greater than 50% stenosis of the left proximal ICA CT head, 05/11/2024: 1. Chronic lacunar infarct in right centrum semiovale. 2. Chronic periventricular ischemic changes. 3. Cerebral and cerebellar atrophy, likely age-related. 4. Advised further evaluation with MRI brain without contrast if clinically indicated CT abdomen/pelvis, 05/15/2024: Small bowel obstruction with evidence of perforation including free intraperitoneal fluid and air. Extensive subcutaneous emphysema likely secondary to bowel perforation CT abdomen/pelvis, 05/16/2024: 1. Sequelae of recent postsurgical changes as described above. Correlate with surgical history. 2. Pneumoperitoneum and free fluid in the abdomen and pelvis. 3. Large collection containing fluid and gas, predominantly in the right hemiabdomen. There is GI contrast extending into this collection from an adjacent small bowel loop. There is a component of this collection extending adjacent to the anterior superior aspect of the liver. 4. Moderate right hydronephrosis and hydroureter. The distal right ureter appears to be compressed by the large fluid collection in the right hemiabdomen. No obstructing calculus. 5. Dilated small bowel loops in the left hemiabdomen with suspected small-bowel obstruction. 6. Prominent subcutaneous edema in the ventral abdominal wall and extending caudally into the inguinal regions bilaterally, peroneal region, and anterior aspect of the left thigh. 7. Small bilateral pleural effusions with overlying atelectasis. 8. Additional findings as detailed above. CT abdomen, 05/23/2024: Postsurgical changes of the ventral abdomen with interval improvement in the diffuse soft tissue edema and ventral abdominal, pelvis and upper thigh subcutaneous emphysema. Interval significant decrease in size of the loculated collection within the right hemiabdomen and pelvis with small residual. Interval placement of drainage catheters terminating over the left upper abdominal quadrant and left hemipelvis as detailed above. Interval development of small to moderate ascites. Wall thickening of fluid-filled nondistended small bowel loops of the anterior mid to lower abdomen which may be from the surrounding ascites versus enteritis. Additional findings as above CT abdomen staff pelvis, 05/30/2024: 1. Radiodense contrast in the mid abdomen associated with surgical sutures. It is unclear whether this is in bowel or represents a bowel leak. Clinical correlation and continued follow-up is recommended. 2. Right pelvic, anterior abdominal wall and left abdomen drainage catheters in place. No definite abscess identified. 3. Extensive post postsurgical changes of the bowel. 4. Small amount of abdominal and pelvic ascities. 5. Small to moderate right pleural effusion. CTA neck, head, 05/14/24: 1. Complete occlusion of the right cervical internal carotid artery. There may be trickle flow in distal right cervical ICA. 2. Poor flow in the right intracranial ICA likely retrograde perfusion through the contralateral left side posterior circulation through the communicating arteries. 3. High-grade stenosis at the left carotid bulb with at least 70-80% stenosis. Moderate short-segment stenosis in the left proximal ICA with at least 60% stenosis. CTA neck, head, 06/15/2024: 1. Mild cortical enhancement in the right high frontal lobe is nonspecific, could be related to a schema. Consider further evaluation with MRI brain. 2. Occluded right internal carotid artery with reconstitution at the level of the supraclinoid internal carotid artery from collaterals. 3. High grade stenosis of the left carotid bulb and proximal left internal carotid artery. Vascular surgery evaluation is recommended after acute event. 4. Mild left subclavian stenosis with associated irregularity MRI HEAD, 05/11/2024: 1. Multiple foci of restricted diffusion in the right centrum semiovale and along the right superior frontal lobe compatible with acute to subacute infarcts. There is no evidence of acute hemorrhage or significant surrounding edema. 2. Absence of flow void in the intracranial portions of the right internal carotid artery which is likely occluded MR head, 06/15/2024: Subacute infarct involving the high convexity right frontal lobe with additional smaller focus over the right anterior mid convexity frontal lobe and punctate focus over the right mid convexity parietal lobe vital signs Vital Sign Date Time Temp Pulse Resp B/P (MAP) Pulse Ox O2 Delivery O2 Flow Rate FiO2 06/18/24 08:00 99.0 104 22 105/59 (74) 97 99.0 06/18/24 06:00 Room Air* 0 21 Total Intake and Output 06/17/24 06/17/24 06/18/24 15:00 23:00 07:00 Intake Total 609 ml 971 ml 688 ml Output Total 375 ml 1285 ml 1840 ml Balance 234 ml -314 ml -1152 ml medications Current Medications Medications Dose Ordered Sig/Nora Route Start Time Stop Time Status Last Admin Dose Admin Acetaminophen 650 mg Q6HPRN PRN UT 05/16/24 22:30 06/16/24 03:36 650 MG Pantoprazole Sodium 40 mg DAILY IV 05/17/24 10:00 06/17/24 11:14 40 MG Amino Acids 0 ml @ 0 mls/hr PER PHARMACY IV 05/17/24 08:30 Vancomycin HCl 0 ml @ 0 mls/hr UD IV 05/18/24 07:45 Cancel Potassium Chloride 100 ml @ 50 mls/hr Q2H IV 05/22/24 12:30 05/22/24 16:29 Cancel Diagnostic Test (Pha) 1 strip Q6HR 05/24/24 12:00 06/18/24 05:59 1 STRIP Insulin Human Regular FOLLOW SLIDING SCALE Q6HR SC 05/24/24 12:00 06/18/24 05:57 4 UNITS Dextrose 50 ml UD IV 05/24/24 12:00 Enoxaparin Sodium 70 mg Q12HR SC 06/01/24 22:00 06/17/24 21:19 70 MG Labetalol HCl 10 mg Q2HPRN PRN IV 06/02/24 07:45 06/15/24 01:14 10 MG Hydralazine HCl 10 mg Q4HPRN PRN IV 06/08/24 12:45 Ondansetron HCl 4 mg Q4HPRN PRN IV 06/09/24 13:30 06/10/24 16:14 4 MG Nicotine 1 patch DAILY TD 06/11/24 10:00 06/17/24 11:19 1 PATCH Fluticasone Propionate 50 mcg Q12HR EACHNOSTRI 06/11/24 22:00 06/17/24 11:25 50 MCG Piperacillin Sod/ Tazobactam Sod 100 ml @ 25 mls/hr Q8HR IV 06/12/24 15:45 06/18/24 05:04 25 MLS/HR Metoprolol Tartrate 4 mg Q6HPRN PRN IV 06/13/24 10:45 Fluconazole 100 ml @ 100 mls/hr 10,11 IV 06/16/24 10:00 Cancel Aspirin 81 mg DAILY PO 06/17/24 10:00 06/17/24 11:22 81 MG Enteral Nutritional Formula 240 ml TIDWM PO 06/16/24 18:00 06/17/24 12:00 240 ML Fat Emulsion Intravenous 100 ml/Sodium Chloride 60 meq/ Sodium Phosphate 40 meq/Potassium Chloride 40 meq/ Potassium Phosphate 22 meq/ Magnesium Sulfate 16 meq/ Multivitamins 10 ml/Chromium/ Copper/Manganese/ Zinc 1 ml/Insulin Human Regular 30 units/Amino Acids/ Dextrose/Purified Water 1,765.3 ml @ 73 mls/hr [id number] IV 06/17/24 22:00 06/18/24 21:59 06/17/24 21:22 73 MLS/HR objective General: the patient is well developed and nourished. No acute distress. ABDOMEN: Status post surgery MENTAL STATUS: Subjective. CRANIAL NERVES: Pupils are round and reactive, mild left eyelid ptosis. normal external eye movement, normal sensation and motor examination in the lateral trigeminal nerve distribution, no facial weakness. No abnormal vascular dilatation in the face, eye, no abnormal facial skin secretion SENSATION: Okay to pinprick and light touch MOTOR: Normal tone in the upper and lower extremity. Normal muscle bulk. No fasciculations. She can move the right arm and the legs REFLEXES: Deep tendon reflexes are symmetrical. No pathological reflexes. CEREBELLAR/COORDINATION: Deferred GAIT/STATION: deferred. laboratory and microbiology Laboratory Tests 06/18/24 04:58 Test 06/18/24 04:58 Range/Units Serum Glucose 187 H 74-106 mg/dL Problem List Pelvic prolapse, can count urethrovesical junction, surgery repair on 05/07/2024 (Robotic supracervical hysterectomy bilateral salpingo-oophorectomy colposcopic pexy cystocele repair urethral sling partial vaginectomy) Bowel obstruction with perforation, intra-abdominal abscess, dense at [place], status post surgery 05/16/2024 Sepsis/septic shock Metabolic encephalopathy Acute right MCA territory multiple strokes MRI head 05/11/2024) Recurrent right MCA territory stroke,(MRI head 06/15/24) Left hemiparesis Right ICA occlusion Left ICA severe stenosis Anemia, with unstable H&H Status post oophorectomy, hysterectomy Anisocoria, maybe related to her carotid he was sclerosis DVT Assessment/Plan Monitoring Supportive treatment FLYNN care Stabilize vitals Respiratory support IV antibiotics Oxygen Aspirin 81 mg daily Lovenox 70 mg subQ b.i.d. TPN GI prophylaxis Further address bilateral carotid stenosis CLARA on discharge Surgery on case Okay to use Lovenox for DVT from neurologic point of view More recommendation per clinical course This medical document was created using an electronic medical record system with [employer] system. Although this document has been carefully reviewed, there may still be some phonetic and typographical errors. These areas are purely typographical due to imperfections of the software programs, and do not reflect any compromise in the patient's medical care Prognosis poor Dietary Evaluation Review Comments: 1) Advance pt diet when medically feasible to a 2gmNa diet modified per ELECTRONIC MASKING SYSTEM OPERATOR recommendations 2) Continue current plan of care Expected Outcomes/Goals: 1) Pt diet to advance 2) F/U in 2-3 days Plan discussed with: BRYAN Angeles MD Jun 18, 2024 08:30
--- NOTE | 2024-06-18 10:34 | DVHPN2 ---
Subjective More alert and oriented today Complains of generalized pain and specially in her lower back Reviewed: Care Plan, H&P, Labs, Medications, Previous Orders, Radiology Changes from previous H/P or p: Changes General: Per HPI Eyes: No Pain, No Vision change, No Conjunctivae inflammation, No Eyelid inflammation, No Other, No Redness ENT: No Ear pain, No Ear discharge, No Nose pain, No Nose discharge, No Nose congestion, No Mouth pain, No Mouth swelling, No Throat pain, No Throat swelling, No Other Cardiovascular: No Chest Pain, No Palpitations, No Orthopnea, No Paroxysmal Noc. Dyspnea, No Edema, No Lt Headedness, No Other Respiratory: No Cough, No Dry, No Shortness of breath, No SOB with excertion, No Wheezing, No Hemoptysis, No Pleuritic Pain, No Sputum, No Other Gastrointestinal: Nausea Genitourinary: No Dysuria, No Frequency, No Incontinence, No Hematuria, No Retention, No Other Musculoskeletal: No other, No neck pain, No shoulder pain, No arm pain, No back pain, No hand pain, No leg pain, No foot pain Skin: No Rash, No Lesions, No Jaundice, No Bruising, No Other Objective Vitals Vital Signs Date Time Temp Pulse Resp B/P (MAP) Pulse Ox O2 Delivery O2 Flow Rate FiO2 06/18/24 10:00 20 98 Room Air* 0 21 06/18/24 10:00 98 06/18/24 09:00 131/60 (83) 06/18/24 08:00 99.0 99.0 Intake/Output Intake and Output 06/18/24 07:00 Intake Total 2268 ml Output Total 3500 ml Balance -1232 ml Intake Oral 400 ml IV Total 1868 ml Output Urine Total 1900 ml Stool Total 1475 ml Drainage Total 65 ml Other 60 ml General Appearance: Alert, Oriented X3, Cooperative, No acute distress, m oderate distress HEENT: Atraumatic, PERRLA, Other (Pupils equal, 4 mm, reactive to light to 3 mm) Lungs: Clear to auscultation, Normal air movement, Other (Mechanical ventilation) Cardiovascular: Regular rate, Normal S1, Normal S2 Abdomen: Other (Ileostomy with drainage. EVARISTO to right lower quadrant with thick serosanguineous secretions.) Musculoskeletal: Other (Unable to assess) Extremities: No edema, Other (Poor cap refill to left lower extremity with some cyanosis noted) Neuro: Other (Left arm weakness including silk screen printer machine and proximal muscles) Skin: Dry, Intact, Other (Surgical incision dry and intact) Psych/Mental Status: Mental status NL, Mood NL Medications Current Medications Medications Dose Ordered Sig/Nora Route Start Time Stop Time Status Last Admin Dose Admin Acetaminophen 650 mg Q6HPRN PRN MT 05/16/24 22:30 06/16/24 03:36 650 MG Pantoprazole Sodium 40 mg DAILY IV 05/17/24 10:00 06/18/24 09:10 40 MG Amino Acids 0 ml @ 0 mls/hr PER PHARMACY IV 05/17/24 08:30 Vancomycin HCl 0 ml @ 0 mls/hr UD IV 05/18/24 07:45 Cancel Potassium Chloride 100 ml @ 50 mls/hr Q2H IV 05/22/24 12:30 05/22/24 16:29 Cancel Diagnostic Test (Pha) 1 strip Q6HR 05/24/24 12:00 06/18/24 05:59 1 STRIP Insulin Human Regular FOLLOW SLIDING SCALE Q6HR SC 05/24/24 12:00 06/18/24 05:57 4 UNITS Dextrose 50 ml UD IV 05/24/24 12:00 Enoxaparin Sodium 70 mg Q12HR SC 06/01/24 22:00 06/18/24 09:10 70 MG Labetalol HCl 10 mg Q2HPRN PRN IV 06/02/24 07:45 06/15/24 01:14 10 MG Hydralazine HCl 10 mg Q4HPRN PRN IV 06/08/24 12:45 Ondansetron HCl 4 mg Q4HPRN PRN IV 06/09/24 13:30 06/10/24 16:14 4 MG Nicotine 1 patch DAILY TD 06/11/24 10:00 06/18/24 09:11 1 PATCH Fluticasone Propionate 50 mcg Q12HR EACHNOSTRI 06/11/24 22:00 06/18/24 09:12 50 MCG Piperacillin Sod/ Tazobactam Sod 100 ml @ 25 mls/hr Q8HR IV 06/12/24 15:45 06/18/24 05:04 25 MLS/HR Metoprolol Tartrate 4 mg Q6HPRN PRN IV 06/13/24 10:45 Fluconazole 100 ml @ 100 mls/hr 10,11 IV 06/16/24 10:00 Cancel Aspirin 81 mg DAILY PO 06/17/24 10:00 06/18/24 09:10 81 MG Enteral Nutritional Formula 240 ml TIDWM PO 06/16/24 18:00 06/18/24 09:12 240 ML Fat Emulsion Intravenous 100 ml/Sodium Chloride 60 meq/ Sodium Phosphate 40 meq/Potassium Chloride 40 meq/ Potassium Phosphate 22 meq/ Magnesium Sulfate 16 meq/ Multivitamins 10 ml/Chromium/ Copper/Manganese/ Zinc 1 ml/Insulin Human Regular 30 units/Amino Acids/ Dextrose/Purified Water 1,765.3 ml @ 73 mls/hr [id number] IV 06/17/24 22:00 06/18/24 21:59 06/17/24 21:22 73 MLS/HR Fat Emulsion Intravenous 100 ml/Sodium Chloride 40 meq/ Sodium Acetate 40 meq/Potassium Chloride 10 meq/ Magnesium Sulfate 14 meq/ Multivitamins 10 ml/Chromium/ Copper/Manganese/ Zinc 1 ml/Insulin Human Regular 26 units/Amino Acids/ Dextrose/Purified Water 1,499.76 ml @ 62 mls/hr [id number] IV 06/18/24 22:00 06/19/24 21:59 Acetaminophen 650 mg Q6HP PRN PO 06/18/24 09:45 UNV Laboratory Results Laboratory Tests 06/18/24 04:58 Chemistry Test 06/18/24 04:58 Albumin 3.6 g/dL (3.2-4.8) Calcium Level 9.8 mg/dL (8.7-10.4) Magnesium Level 2.1 mg/dL (1.6-2.6) Phosphorus Level 4.9 mg/dL (2.4-5.1) Total Protein 7.5 g/dL (5.7-8.2) LFT Test 06/18/24 04:58 Alanine Aminotransferase (ALT) 22 U/L (7-40) Alkaline Phosphatase 167 U/L (46-116) H Aspartate Amino Transferase (AST) 30 U/L (13-40) Total Bilirubin 0.8 mg/dL (0.2-1.0) Urinalysis Test 05/11/24 16:18 Urine Color Yellow (Yellow) Urine Clarity Clear (Clear) Urine pH 6.0 (5.0-9.0) Urine Specific [place] 1.020 (1.001-1.035) Urine Protein 1+ (Negative) H Urine Ketones 4+ (Negative) H Urine Blood Trace /uL (Negative) H Urine Nitrite Negative (Negative) Urine Bilirubin Negative (Negative) Urine Urobilinogen Normal mg/dL (Negative) Urine Leukocyte Esterase Negative /uL (Negative) Urine RBC 2 /hpf (0 - 4) Urine WBC 2 /hpf (0 - 5) Urine Squamous Epithelial Cells Few /hpf (<5) Urine Bacteria None seen /hpf (None Seen) Urine Mucus Few (None Seen) Urine Glucose Normal mg/dL (Normal) Microbiology Microbiology Date/Time Source Procedure Growth Status 06/17/24 11:00 Urine - [place] Urine Culture - Preliminary Resulted 06/12/24 16:00 Blood Blood Culture - Final NO GROWTH AFTER 5 DAYS OF INCUBATION. Complete 06/07/24 03:00 Abdomen Gram Stain - Final Complete 06/07/24 03:00 Abdomen Wound Culture - Final Complete 05/16/24 14:20 Sputum Gram Stain - Final Complete 05/16/24 14:20 Respiratory Culture - Final Yeast, not Shawanda albicans Complete Assessment/Plan Assessment/Plan Robotic surgery hysterectomy and salpingo-oophorectomy complicated by Acute CVA Acute CVA w LUE hemiparesis Bowel perforation with repeat exploratory laparotomy with ileostomy creation History of breast cancer with bilateral mastectomies Afib RVR Acute hypoxic respiratory failure Mechanical intubation Exploratory laparotomy, drainage of intraabdominal abscess, thorough peritoneal lavage with reinforcement of the anastomotic location of the previous anastomosis as well as a diverting loop ileostomy on 05/24/24 Anemia Right upper extremity DVT Plan Mechanical ventilation TPN IV antibiotics: Vancomycin + Meropenem No vasopressors Sedation prn GI Prophylaxis: Protonix Transfuse blood prn 05/29/24: Transfuse 1 unit RBCs for Hb 5.9 Lasix 20 mg IV x1 Check Hb after transfusion Off pressors Antibiotics: Meropenem, Vanco, Micafungin Amiodarone IV Taper sedation down as tolerated CXR: Clear TPN Protonix 05/30/24: Discussed with Dr. Fritz Lake Will do CT ABD pelvis to follow up on abscess IV antibiotics Taper sedation down C-PAP? per Dr. Poon 05/31/24: CT abdomen showed no fluid collection IV antibiotics: Meropenem, Vancomycin & Micafungin Amiodarone Dr. Fritz Lake recommended to continue medical treatment, no surgical intervention Sedation as needed TPN 06/01/2024: Start Lovenox 70 mg subQ q.[address] Lake and Neurology IV antibiotics meropenem and vancomycin Micafungin TPN Tapered down sedation as tolerated 06/02/24: Fever Yeast in cultures: Micafungin IV antibiotics: Meropenem & Vanco TPN RUE DVT: Lovenox Normocytic anemia 7.9 Consult ID Scott Cultures Afib: Amiodarone drip Discussed with her sister over the phone 06/03/2024: IV antibiotics: Meropenem and vancomycin IV antifungal: Micafungin TPN Amiodarone IV Dr. Fritz Lake for surgery is on the case 06/04/24: Abdominal infection: IV antibiotics: Meropenem, Vanco and Micafungin TPN Amiodarone Surgery on case: Will discuss with Dr. Fritz Lake regarding tracheostomy ID consult is pending Discussed with sister over the phone, family is agreeable with the trach Anemia: Transfuse one unit RBCs 06/05/24: Hypokalemia: Replace IV antibiotics: Meropenem and Vanco IV antifungals: Micafungin TPN Amiodarone Discussed with Dr. Lake regarding tracheostomy Remove central line PICC line 06/06/24: Repeat CT abdomen & pelvis Discussed with her sister Lianet over the phone Discussed the advance directives She stated that patient as stated before that she wants to be treated but only if she becomes a vegetable then she would stop the treatment The family for now would like to continue treatment We will get a new blood and urine and sputum cultures Continue IV antibiotics and IV antifungal Dr. Lake is evaluating the patient for possible tracheostomy in the next few days 06/07/2024: Off sedation CPAP trial TPN Amiodarone IV antibiotics and antifungals Full code 06/08/24: Afib RVR, start Metoprolol IV scheduled dose Amiodarone is off HTN: Hydralazine Rocephin Flagyl Micafungin TPN NGT to suction Lovenox Hydralazine 06/09/24: Continue current Tx IV antibiotics Metoprolol IV NPO Tube suction 06/11/2024: Patient is stable Fever: Continue IV antibiotics : Rocephin, Flagyl, micafungin Abdominal infection Acute CVA with left sided weakness Atrial fibrillation Hypertension TPN Lovenox IV metoprolol IV Protonix Discussed with her sister over the phone Nicotine patch 06/12/2024 Continue current management Downgrade to the FLYNN NPO TPN 06/13/24: Swallow eval Downgrade to FLYNN Start clear liquids if she can swallow IV antibiotics PRN Metoprolol for HR>110 Hydralazine for BP 06/14/24: Downgrade to FLYNN Pureed diet Continue antibiotics Physical therapy 06/15/24: Rule out CVA: Ct Head CT abd & pel Hold Lovenox Continue IV antibiotics Discussed with Dr. Fritz Lake 06/16/24: Resume diet Physical therapy IV antibiotics Resume Lovenox Aspirin 06/17/2024: Continue TPN for now since the patient does not have adequate p.o. intake yet Advance diet as tolerated Due to the lethargy and confusion, we will do scott cultures of the urine and blood and wound and urinalysis Continue Aspirin Continue Lovenox Physical therapy IV antibiotics: Voriconazole, Zosyn 06/18/2024: Continue physical therapy Discontinue TPN Advance p.o. intake Consult social media assistant to arrange SNF for rehab Downgrade to telemetry Plan discussed with: Patient My Orders Orders - BARI MOORE MD Procedure Category Date Status Time Acetaminophen Tablet PHA 06/18/24 Logged (Tylenol Tablet) 09:45 Date of Service: Jun 18, 2024 Billing Provider: BARI MOORE MD Common Visit Codes: NOT BILLABLE BARI MOORE MD Jun 18, 2024 10:34
[2024-06-18] MEDS: ACETAMINOPHEN 325 MG TAB PO PRN (16:14)
--- NOTE | 2024-06-18 20:54 | DVHPN2 ---
Progress Note Date Seen: Jun 18, 2024 Has the PT tested + for MRSA If YES, has PT been informed?: No Medical Necessity Reason Pt with a Central, PICC or Fol: Yes The following are medically ne: Muhammad Catheter Reason for muhammad catheter: Strict I&O Objective vital signs Vital Sign Date Time Temp Pulse Resp B/P (MAP) Pulse Ox O2 Delivery O2 Flow Rate FiO2 06/18/24 19:00 92 18 123/65 (84) 97 06/18/24 18:00 Room Air* 0 21 06/18/24 17:00 99.0 99.0 Total Intake and Output 06/17/24 06/17/24 06/18/24 15:00 23:00 07:00 Intake Total 609 ml 971 ml 688 ml Output Total 375 ml 1285 ml 1840 ml Balance 234 ml -314 ml -1152 ml medications Current Medications Medications Dose Ordered Sig/Nora Route Start Time Stop Time Status Last Admin Dose Admin Acetaminophen 650 mg Q6HPRN PRN MD 05/16/24 22:30 06/16/24 03:36 650 MG Pantoprazole Sodium 40 mg DAILY IV 05/17/24 10:00 06/18/24 09:10 40 MG Vancomycin HCl 0 ml @ 0 mls/hr UD IV 05/18/24 07:45 Cancel Potassium Chloride 100 ml @ 50 mls/hr Q2H IV 05/22/24 12:30 05/22/24 16:29 Cancel Diagnostic Test (Pha) 1 strip Q6HR 05/24/24 12:00 06/18/24 18:28 1 STRIP Insulin Human Regular FOLLOW SLIDING SCALE Q6HR SC 05/24/24 12:00 06/18/24 18:30 4 UNITS Dextrose 50 ml UD IV 05/24/24 12:00 Enoxaparin Sodium 70 mg Q12HR SC 06/01/24 22:00 06/18/24 09:10 70 MG Labetalol HCl 10 mg Q2HPRN PRN IV 06/02/24 07:45 06/15/24 01:14 10 MG Hydralazine HCl 10 mg Q4HPRN PRN IV 06/08/24 12:45 Ondansetron HCl 4 mg Q4HPRN PRN IV 06/09/24 13:30 06/10/24 16:14 4 MG Nicotine 1 patch DAILY TD 06/11/24 10:00 06/18/24 09:11 1 PATCH Fluticasone Propionate 50 mcg Q12HR EACHNOSTRI 06/11/24 22:00 06/18/24 09:12 50 MCG Piperacillin Sod/ Tazobactam Sod 100 ml @ 25 mls/hr Q8HR IV 06/12/24 15:45 06/18/24 15:53 25 MLS/HR Metoprolol Tartrate 4 mg Q6HPRN PRN IV 06/13/24 10:45 Fluconazole 100 ml @ 100 mls/hr 10,11 IV 06/16/24 10:00 Cancel Aspirin 81 mg DAILY PO 06/17/24 10:00 06/18/24 09:10 81 MG Enteral Nutritional Formula 240 ml TIDWM PO 06/16/24 18:00 06/18/24 18:00 240 ML Acetaminophen 650 mg Q6HP PRN PO 06/18/24 09:45 06/18/24 16:14 650 MG laboratory and microbiology Laboratory Tests 06/18/24 04:58 Test 06/18/24 04:58 Range/Units Serum Glucose 187 H 74-106 mg/dL Microbiology Date/Time Source Procedure Growth Status 06/17/24 15:00 Blood Blood Culture - Preliminary NO GROWTH AFTER 24 HOURS OF INCUBATION. Resulted 06/17/24 11:00 Urine - Muhammad [place] Urine Culture - Preliminary Resulted 06/07/24 03:00 Abdomen Gram Stain - Final Complete 06/07/24 03:00 Abdomen Wound Culture - Final Complete 05/16/24 14:20 Sputum Gram Stain - Final Complete 05/16/24 14:20 Respiratory Culture - Final Yeast, not Shawanda albicans Complete Problem List/Assessment/Plan Problem List/Assessment/Plan AFEBRILE VSS WBC ELEVATED ABD SOFT DRAINS IN PLACE DRESSING ABD WOUND DRAINAGE LESS CONDITION GUARDED ILEOSTOMY VIABLE AND FUNCTIONAL NURSE AT BEDSIDE CONTINUE SUPPORTIVE CARE CONTINUE ID EVAL AND IV ABX NURSE AT BEDSIDE FAMILY AWARE AND UPDATED RE HER ONGOING CARE AND CONDITION Plan discussed with: Other Dietary Evaluation Review Comments: 1) Advance pt diet when medically feasible to a 2gmNa diet modified per JOIST SETTER recommendations 2) Continue current plan of care Expected Outcomes/Goals: 1) Pt diet to advance 2) F/U in 2-3 days SHEY COVARRUBIAS MD Jun 18, 2024 20:54
[2024-06-18] MEDS ORDERED: TPN PER PHARMACY IV NR (22:00)
--- NOTE | 2024-06-18 22:00 | DVHPN2 ---
Consult Progress Note Date Seen: Jun 18, 2024 Subjective Patient reports: Feels better (tolerating diet, mentating well, patient did have a fever yesterday of 102.4 and blood cultures were aquired as well as urine cultures) Objective vital signs Vital Sign Date Time Temp Pulse Resp B/P (MAP) Pulse Ox O2 Delivery O2 Flow Rate FiO2 06/18/24 20:00 98.1 93 25 127/60 (82) 98 98.1 06/18/24 20:00 Room Air* 0 21 Total Intake and Output 06/17/24 06/17/24 06/18/24 15:00 23:00 07:00 Intake Total 609 ml 971 ml 688 ml Output Total 375 ml 1285 ml 1840 ml Balance 234 ml -314 ml -1152 ml medications Current Medications Medications Dose Ordered Sig/Nora Route Start Time Stop Time Status Last Admin Dose Admin Acetaminophen 650 mg Q6HPRN PRN GA 05/16/24 22:30 06/16/24 03:36 650 MG Pantoprazole Sodium 40 mg DAILY IV 05/17/24 10:00 06/18/24 09:10 40 MG Vancomycin HCl 0 ml @ 0 mls/hr UD IV 05/18/24 07:45 Cancel Potassium Chloride 100 ml @ 50 mls/hr Q2H IV 05/22/24 12:30 05/22/24 16:29 Cancel Diagnostic Test (Pha) 1 strip Q6HR 05/24/24 12:00 06/18/24 18:28 1 STRIP Insulin Human Regular FOLLOW SLIDING SCALE Q6HR SC 05/24/24 12:00 06/18/24 18:30 4 UNITS Dextrose 50 ml UD IV 05/24/24 12:00 Enoxaparin Sodium 70 mg Q12HR SC 06/01/24 22:00 06/18/24 20:53 70 MG Labetalol HCl 10 mg Q2HPRN PRN IV 06/02/24 07:45 06/15/24 01:14 10 MG Hydralazine HCl 10 mg Q4HPRN PRN IV 06/08/24 12:45 Ondansetron HCl 4 mg Q4HPRN PRN IV 06/09/24 13:30 06/10/24 16:14 4 MG Nicotine 1 patch DAILY TD 06/11/24 10:00 06/18/24 09:11 1 PATCH Fluticasone Propionate 50 mcg Q12HR EACHNOSTRI 06/11/24 22:00 06/18/24 20:53 50 MCG Piperacillin Sod/ Tazobactam Sod 100 ml @ 25 mls/hr Q8HR IV 06/12/24 15:45 06/18/24 15:53 25 MLS/HR Metoprolol Tartrate 4 mg Q6HPRN PRN IV 06/13/24 10:45 Fluconazole 100 ml @ 100 mls/hr 10,11 IV 06/16/24 10:00 Cancel Aspirin 81 mg DAILY PO 06/17/24 10:00 06/18/24 09:10 81 MG Enteral Nutritional Formula 240 ml TIDWM PO 06/16/24 18:00 06/18/24 18:00 240 ML Acetaminophen 650 mg Q6HP PRN PO 06/18/24 09:45 06/18/24 16:14 650 MG PHYSICAL EXAM: - GENERAL: Alert and oriented x 3. No acute distress. Well-nourished. - EYES: EOMI. Anicteric. - HENT: Moist mucous membranes. No scleral icterus. No cervical lymphadenopathy. - LUNGS: Clear to auscultation bilaterally. No accessory muscle use. - CARDIOVASCULAR: Regular rate and rhythm. No murmur. No JVD. mildly tachycardic of 102 - ABDOMEN: Soft, non-tender and non-distended. No palpable masses. - EXTREMITIES: No edema. Non-tender.?SKIN: No rashes or lesions. Warm. - NEUROLOGIC: No focal neurological deficits. CN II-XII grossly intact, but not individually tested. - PSYCHIATRIC: Cooperative. Appropriate mood and affect. laboratory and microbiology Laboratory Tests 06/18/24 04:58 Test 06/18/24 04:58 Range/Units Serum Glucose 187 H 74-106 mg/dL Problem List/Assessment/Plan Problems(with codes): (1) Fungal infection (2) Intra-abdominal abscess (3) SBO (small bowel obstruction) (4) Stroke (5) Anemia (6) Breast cancer (7) Hypertension Problem List/Assessment/Plan Assessment and Plan: ID Problem List: 1. Small bowel obstruction with perforation 2. Septic shock 3. Stroke, right MCA territory 4. Hypertension 5. Anemia 6. Breast cancer 7. Bilateral mastectomy 8. Post-surgical complications (including ileostomy creation) 9. Fungal infection (yeast not Shawanda albicans) 10. Strep Viridans Group B infection Assessment: This is a 68-year-old female, with a significant past medical history of anemia, hypertension, breast cancer status post bilateral mastectomy, and a 50 pack-year smoking history (now quit), who was initially admitted for a robotic hysterectomy with bilateral salpingectomy, removal of a right ovarian mass, cystocele repair with urethral sling. Postoperatively, she developed hypertension and nausea, necessitating overnight admission. Post-admission, she endured a cerebrovascular accident primarily impacting the right MCA territory and contributing to left-sided weakness. Subsequent evaluations included MRI and CT head scans that confirmed multiple acute and subacute infarcts. Later complications included progression to an acute small bowel obstruction with perforation, leading to emergent exploratory laparotomy and subsequent ileostomy creation. Cultures from the surgical sites revealed a non-Shawanda albicans yeast and Strep Viridans Group B infection. The patient continues to require ICU support, primarily due to ongoing septic shock and the need for ventilatory assistance. Patient remains intubated with vasopressors being weaned off. Recent WBC count was 16.9 and hemoglobin levels have fluctuated, dropping as low as 5.9. She has been transitioned to a multi-antibiotic regimen including meropenem, vancomycin, and TPN for nutritional support. 06/04: hemoglobin of 6.9, suspect ongoing blood loss. Preliminary blood cultures are no growth for 48 hours as well as wound and urine cultures with no growth 06/05: hemoglobin of 8.4 after blood transfusion. Repeat cultures of the abdomen is showing no organisms 06/06: Ct pelvis abdomen shows fairly stable appearing radio dense contrast in the central mid abdomen with adjacent surgical sutures. Small bowel ascites. drainage catheter terminating in the pelvis and upper abdomen, stable appearing intraabdominal acities. extensive post-surgical changes that ate unchanged. a small to moderate right mid size plural effusion. Chest x-ray was done and shows no focal consolidation in the lungs 06/07: Chest x-ray done before the excavation, showing pulmonary disease 06/08: Abdominal drain fluids and patients surgical site has been cultured. Removal of catheter tip from yesterday shows staphylococcus and micrococcus , likely skin florac contamination . White count of 12.4 today and will continue to monitor 06/12: has been having persistent fevers for the last 48 hours , chest x-ray appears clear , leukocytosis , fungus was growing from operative cultures , filamentous. Raising possibilities of fussarium, aspergillus , penicillium , although these are less likely than shawanda. suspect that patient is having a rise in fevers due to untreated bacteria . 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 vascular surgery was recommended for intervention of left ICA. Put back on NPL status , remains lethargic aphasic , no speaking , no weakness in upper extremities or lower , arousable but lethargic. started on statin continued on anticoagulation. MRI of brain shows subacute involving the high convexity right frontal lobe with additional smaller focus over the right anterior mid convexity focus over the right mid convex 70% parieteal lobe 06/17: Patient has been on IV micafungen and fruconazol since 05/23 , is tolerating feeds through mouth without any difficulty 06/18: Blood cultures are no growth to date and urine cultures have no growth. unclear why patient had fever, could be related to mild aspiration Plan: - Sp antifungal therapy at this time after a complete 30 course for intraabdominal abscess - defer plan to neurology on management of stroke 1. continue IV Zosyn, will monitor patient clinically and plan to transition to oral floroquilone therapy in the next 1-2 days 3. check blood cultures and check surgical site wound culture 4. Provide ICU support with ventilator for respiratory status and hemodynamic monitoring. 5. Supportive care measures for septic shock, including fluid resuscitation and vasopressor management. 6. Monitor and maintain drainage output. 7. Ensure adequate nutritional support through TPN. 8. Follow-up with surgical team for wound care and any necessary surgical interventions. Plan discussed with: Other Dietary Evaluation Review Comments: 1) Advance pt diet when medically feasible to a 2gmNa diet modified per MARKETING ENGINEER recommendations 2) Continue current plan of care Expected Outcomes/Goals: 1) Pt diet to advance 2) F/U in 2-3 days MEY VICTORIA MD Jun 18, 2024 22:00
--- NOTE | 2024-06-18 22:18 | DVHPN2 ---
Progress Note - Dictate Date Seen: Jun 18, 2024 Has the PT tested + for MRSA If YES, has PT been informed?: No Medical Necessity Reason Pt with a Central, PICC or Fol: Yes The following are medically ne: Muhammad Catheter Reason for muhammad catheter: Strict I&O Subjective Patient seen and examined at bedside. Breathing on room air. Overnight events reviewed. vital signs Vital Sign Date Time Temp Pulse Resp B/P (MAP) Pulse Ox O2 Delivery O2 Flow Rate FiO2 06/18/24 20:00 98.1 93 25 127/60 (82) 98 98.1 06/18/24 20:00 Room Air* 0 21 Total Intake and Output 06/17/24 06/17/24 06/18/24 15:00 23:00 07:00 Intake Total 609 ml 971 ml 688 ml Output Total 375 ml 1285 ml 1840 ml Balance 234 ml -314 ml -1152 ml medications Current Medications Medications Dose Ordered Sig/Nora Route Start Time Stop Time Status Last Admin Dose Admin Acetaminophen 650 mg Q6HPRN PRN MO 05/16/24 22:30 06/16/24 03:36 650 MG Pantoprazole Sodium 40 mg DAILY IV 05/17/24 10:00 06/18/24 09:10 40 MG Vancomycin HCl 0 ml @ 0 mls/hr UD IV 05/18/24 07:45 Cancel Potassium Chloride 100 ml @ 50 mls/hr Q2H IV 05/22/24 12:30 05/22/24 16:29 Cancel Diagnostic Test (Pha) 1 strip Q6HR 05/24/24 12:00 06/18/24 18:28 1 STRIP Insulin Human Regular FOLLOW SLIDING SCALE Q6HR SC 05/24/24 12:00 06/18/24 18:30 4 UNITS Dextrose 50 ml UD IV 05/24/24 12:00 Enoxaparin Sodium 70 mg Q12HR SC 06/01/24 22:00 06/18/24 20:53 70 MG Labetalol HCl 10 mg Q2HPRN PRN IV 06/02/24 07:45 06/15/24 01:14 10 MG Hydralazine HCl 10 mg Q4HPRN PRN IV 06/08/24 12:45 Ondansetron HCl 4 mg Q4HPRN PRN IV 06/09/24 13:30 06/10/24 16:14 4 MG Nicotine 1 patch DAILY TD 06/11/24 10:00 06/18/24 09:11 1 PATCH Fluticasone Propionate 50 mcg Q12HR EACHNOSTRI 06/11/24 22:00 06/18/24 20:53 50 MCG Piperacillin Sod/ Tazobactam Sod 100 ml @ 25 mls/hr Q8HR IV 06/12/24 15:45 06/18/24 15:53 25 MLS/HR Metoprolol Tartrate 4 mg Q6HPRN PRN IV 06/13/24 10:45 Fluconazole 100 ml @ 100 mls/hr 10,11 IV 06/16/24 10:00 Cancel Aspirin 81 mg DAILY PO 06/17/24 10:00 06/18/24 09:10 81 MG Enteral Nutritional Formula 240 ml TIDWM PO 06/16/24 18:00 06/18/24 18:00 240 ML Acetaminophen 650 mg Q6HP PRN PO 06/18/24 09:45 06/18/24 16:14 650 MG objective Gen.: Patient lying in bed in no apparent distress. Breathing on room air. Head: Normocephalic, atraumatic. Eyes: EOMI/PERRLA. Ears: Normal hearing. Normal anatomy. Neck/trachea: Trachea midline, supple. Nose: Normal external anatomy. Mouth: Moist mucous membranes. Chest: Decreased air entry bilaterally. No wheezing or rhonchi. Cardiovascular: Positive S1, positive S2. Regular rate and rhythm. Abdomen: Positive bowel sounds in all 4 quadrants. Soft, non-tender, non- distended. : Deferred. Rectal: Deferred. Skin: Warm, dry. Intact. Extremities: 2+ radial pulses bilaterally. No lower extremity edema. Neuro: Awake, alert, oriented x3. No gross motor or sensory deficits. Cranial nerves II through XII intact. Gait not assessed. laboratory and microbiology Laboratory Tests 06/18/24 04:58 Test 06/18/24 04:58 Range/Units Serum Glucose 187 H 74-106 mg/dL Assessment/Plan Impression: Acute hypoxic respiratory failure Abdominal pain due to recent robotic surgery hysterectomy and salpingo- oophorectomy History of breast cancer with bilateral mastectomies History of bowel surgery and ileostomy Anemia due to hemorrhage on hemodilution Shock Chronic pain syndrome Anemia Atrial fibrillation with RVR Bowel perforation with repeat exploratory laparotomy with ileostomy creation Events: Breathing on room air. No respiratory distress. Off TPN Patient is stable for discharge from the pulmonary standpoint. Plan for SNF placement. EVARISTO drain in place. Follow up Surgery recommendations Continue abx - Zosyn. Nasal spray ID recommendations appreciated. Brain MRI demonstrated subacute infarct involving the high convexity right frontal lobe with additional smaller focus over the right anterior mid convexity frontal lobe and punctate focus over the right mid convexity parietal lobe. Neurology recs appreciated. Head of bed elevation Aspiration precautions. Upper extremity Doppler showed nonocclusive thrombus in the right axillary vein and brachial vein Currently on enoxaparin 70 mg subcutaneous Monitor renal function Monitor electrolytes, supplement as necessary Patient is stable for discharge from the pulmonary standpoint. Plan for SNF placement. Labs and imaging reviewed Rest of plan as outlined below. Plan: S/p extubation on 06/07 On room air - supplemental oxygen PRN Titrate to keep sats above 92% CXR, ABG reviewed. Pressors as necessary for hemodynamic support - currently off Titrate to keep mean arterial pressure greater than 65 mmHg. Continue antibiotics. F/u cultures. Monitor hemoglobin Transfuse if less than 7.0 grams/deciliter Monitor renal function due to Acute kidney injury. Monitor electrolytes. Supplement as necessary. Surgery recommendations appreciated. Nutritional support. On TPN Accucheks, ISS. GI prophylaxis - Pantoprazole 40 DVT prophylaxis- on enoxaparin 70 SC Prognosis: Poor given multiple comorbidities. Rest of plan per hospitalist and other consultants. Thank you Dr Reid for allowing me to participate in this patient's care. Further recommendations will depend on patient's clinical course. Please do not hesitate to contact me if you have any questions or concerns. This medical document was created using an electronic medical record system with [employer] dictation system. Although this document has been carefully reviewed, there may still be some phonetic and typographical errors. These areas are purely typographical due to imperfections of the software programs, and do not reflect any compromise in the patient's medical care. Dietary Evaluation Review Comments: 1) Advance pt diet when medically feasible to a 2gmNa diet modified per PATTERNMAKER HELPER recommendations 2) Continue current plan of care Expected Outcomes/Goals: 1) Pt diet to advance 2) F/U in 2-3 days Plan discussed with: Patient, Other (RN) RG LEONE MD Jun 18, 2024 22:18
[2024-06-19] VITALS (14 sets, daily range): BP systolic 102–137; BP diastolic 47–80; PULSE 81–103; RESP 14–23; TEMP 97.8–99.6; O2SAT 96–99
[2024-06-19 06:06] LABS: Basophils # (auto) 0 10 ^3/uL (0-0.2); Basophils % (auto) 0.3 % (0.0-2.0); Eosinophils # (auto) 0 10 ^3/uL (0-0.8); Eosinophils % (auto) 0.3 % (0.0-7.0); Hematocrit 26.5 % (36.0-46.0); Hemoglobin 8.9 g/dL (12.2-16.2); Lymphocytes # (auto) 1.1 10 ^3/uL (0.4-5.4); Mean Corpuscular Hemoglobin 30.2 pg (28.0-32.0); Mean Corpuscular Hgb Conc. 33.8 g/dL (32.0-36.0); Mean Corpuscular Volume 89.5 fL (80.0-100.0); Neutrophils # (auto) 10.4 10 ^3/uL (1.6-8.6); Neutrophils % (auto) 82.4 % (37.0-80.0); Platelet Count (auto) 344 10^3/uL (140-450); Red Blood Cells 2.96 10^6/uL (4.0-5.20); Red Cell Distribution Width 15.7 % (11.8-14.3); White Blood Cell 12.6 10^3/uL (4.4-10.8)
[2024-06-19 07:42] LABS: Alanine Aminotransferase 21 U/L (7-40); Albumin 3.9 g/dL (3.2-4.8); Alkaline Phosphatase 166 U/L (46-116); Anion Gap 10 (5-15); Aspartate Aminotransferase 17 U/L (13-40); BUN/Creatinine Ratio 44.3 (10.0-20.0); Blood Urea Nitrogen 35 mg/dL (9-23); Calcium 10.5 mg/dL (8.7-10.4); Carbon Dioxide 21 mmol/L (20-31); Chloride 102 mmol/L (98-107); Glucose 146 mg/dL (74-106); Magnesium 2.2 mg/dL (1.6-2.6); Potassium 4.1 mmol/L (3.5-5.1); Sodium 133 mmol/L (136-145)
[2024-06-19 07:43] LABS: Bilirubin, Total 1.3 mg/dL (0.2-1.0); Total Protein 7.9 g/dL (5.7-8.2)
--- NOTE | 2024-06-19 10:14 | DVHPN2 ---
Progress Note - Dictate Date Seen: Jun 19, 2024 Has the PT tested + for MRSA If YES, has PT been informed?: No Medical Necessity Reason Pt with a Central, PICC or Fol: Yes The following are medically ne: Muhammad Catheter Reason for muhammad catheter: Strict I&O Subjective Ms. Barrera is a 68 years old right-handed female with a history of hypertension, anemia, breast cancer, she was admitted to the [facility] on 05/07/2024 for scheduled hysterectomy and oophorectomy. Post surgically, she woke up with left-sided weakness, and MRI showed multiple stroke in the right MCA territory. During the hospital stay, she developed fall perforation, and she went through abdominal surgery on 05/16/2024 Because of ongoing intraperitoneal sepsis/peritonitis, the patient went through exploratory laparotomy on 05/24/2024 I have seen and examined the patient in the [facility], I have discussed with her nurse. She is awake, oriented to person, place, she knows the year, socially appropriate, She still does not not move the left arm The right pupil still bigger than left side, 4-5 versus 4 mm, mild left eyelid ptosis CBC, 05/16/2024: Metabolic acidosis, 05/17/2024: Metabolic acidosis, 05/18/2024: Metabolic acidosis URINALYSIS, 05/11/2024: WBC: 2, URINE LEUKOCYTE ESTERASE: NEGATIVE WBC/HB/PLT/MCV, 05/04: 5.1/10.7/119/98.3, 05/17/2024: 20.4/8.5/205/86.9 05/19/2024: 12.2/11.1/125/86.2, 05/20/2024: 8.1/10.5/113/86.1, 05/21/2024: 6.6/10.5/106/86.5, 05/26/2024: 9.6/9.2/184/93.8, 05/28/2024: 7.5/7/223/89.6, 05/29/24: 6.8/5.9/251/88.1, 05/30/2024: 7.4/7.7/268/86.6, 06/10/2024: 12.1/9.3/338/88.2 06/18/2024: 14.3/9/343/90.2 PT/INR/FTT, 05/16/2024: 17.4/1.71/34.2 Na 06/18/2024: 132 K, 05/09/2024: 3.9, 05/10/24:3.1, 05/12/2024: 3.4, 05/16/2024: 2.8 Lactic acid, 05/15/2024: 1.6, 05/16/2024: 1.5 HCO3, 05/23/2024: 35 Bun.Cr, 05/23/2024: 37/0.75 LIVER FUNCTION TESTS, 05/12/2024: UNREMARKABLE, 05/16/2024: Unremarkable TBI/AST/ALT/AP, 05/18/2024: 1.2//47, 05/19/2024: 3.1/04/23/2067, 05/23/2024: 3.1/48/35/170, 05/29/2024: 2.3//21/117 TG/HDL/LDL/HDL, 05/12/2024: 196/134/75/23 TSH, 05/12/2024: 2.01 Echocardiogram 05/14/2024: lvef 65% by visual estimate mild mitral regurg RV enlarged mild left atrium enlarged mild Extremity venous study, 06/01/2024: No left upper extremity DVT. Right internal jugular vein and subclavian vein are not visualized secondary to patient positioning. Nonocclusive thrombus is seen in the right axillary vein and brachial vein. Occlusive thrombus is present at the right cephalic vein. Carotid Doppler, 05/11/2024: 1. Occlusion of the right proximal ICA. 2. Greater than 50% stenosis of the right proximal ECA. 3. Greater than 50% stenosis of the left proximal ICA CT head, 05/11/2024: 1. Chronic lacunar infarct in right centrum semiovale. 2. Chronic periventricular ischemic changes. 3. Cerebral and cerebellar atrophy, likely age-related. 4. Advised further evaluation with MRI brain without contrast if clinically indicated CT abdomen/pelvis, 05/15/2024: Small bowel obstruction with evidence of perforation including free intraperitoneal fluid and air. Extensive subcutaneous emphysema likely secondary to bowel perforation CT abdomen/pelvis, 05/16/2024: 1. Sequelae of recent postsurgical changes as described above. Correlate with surgical history. 2. Pneumoperitoneum and free fluid in the abdomen and pelvis. 3. Large collection containing fluid and gas, predominantly in the right hemiabdomen. There is GI contrast extending into this collection from an adjacent small bowel loop. There is a component of this collection extending adjacent to the anterior superior aspect of the liver. 4. Moderate right hydronephrosis and hydroureter. The distal right ureter appears to be compressed by the large fluid collection in the right hemiabdomen. No obstructing calculus. 5. Dilated small bowel loops in the left hemiabdomen with suspected small-bowel obstruction. 6. Prominent subcutaneous edema in the ventral abdominal wall and extending caudally into the inguinal regions bilaterally, peroneal region, and anterior aspect of the left thigh. 7. Small bilateral pleural effusions with overlying atelectasis. 8. Additional findings as detailed above. CT abdomen, 05/23/2024: Postsurgical changes of the ventral abdomen with interval improvement in the diffuse soft tissue edema and ventral abdominal, pelvis and upper thigh subcutaneous emphysema. Interval significant decrease in size of the loculated collection within the right hemiabdomen and pelvis with small residual. Interval placement of drainage catheters terminating over the left upper abdominal quadrant and left hemipelvis as detailed above. Interval development of small to moderate ascites. Wall thickening of fluid-filled nondistended small bowel loops of the anterior mid to lower abdomen which may be from the surrounding ascites versus enteritis. Additional findings as above CT abdomen staff pelvis, 05/30/2024: 1. Radiodense contrast in the mid abdomen associated with surgical sutures. It is unclear whether this is in bowel or represents a bowel leak. Clinical correlation and continued follow-up is recommended. 2. Right pelvic, anterior abdominal wall and left abdomen drainage catheters in place. No definite abscess identified. 3. Extensive post postsurgical changes of the bowel. 4. Small amount of abdominal and pelvic ascities. 5. Small to moderate right pleural effusion. CTA neck, head, 05/14/24: 1. Complete occlusion of the right cervical internal carotid artery. There may be trickle flow in distal right cervical ICA. 2. Poor flow in the right intracranial ICA likely retrograde perfusion through the contralateral left side posterior circulation through the communicating arteries. 3. High-grade stenosis at the left carotid bulb with at least 70-80% stenosis. Moderate short-segment stenosis in the left proximal ICA with at least 60% stenosis. CTA neck, head, 06/15/2024: 1. Mild cortical enhancement in the right high frontal lobe is nonspecific, could be related to a schema. Consider further evaluation with MRI brain. 2. Occluded right internal carotid artery with reconstitution at the level of the supraclinoid internal carotid artery from collaterals. 3. High grade stenosis of the left carotid bulb and proximal left internal carotid artery. Vascular surgery evaluation is recommended after acute event. 4. Mild left subclavian stenosis with associated irregularity MRI HEAD, 05/11/2024: 1. Multiple foci of restricted diffusion in the right centrum semiovale and along the right superior frontal lobe compatible with acute to subacute infarcts. There is no evidence of acute hemorrhage or significant surrounding edema. 2. Absence of flow void in the intracranial portions of the right internal carotid artery which is likely occluded MR head, 06/15/2024: Subacute infarct involving the high convexity right frontal lobe with additional smaller focus over the right anterior mid convexity frontal lobe and punctate focus over the right mid convexity parietal lobe vital signs Vital Sign Date Time Temp Pulse Resp B/P (MAP) Pulse Ox O2 Delivery O2 Flow Rate FiO2 06/19/24 08:00 99 22 97 Room Air* 0 21 06/19/24 08:00 109/48 (68) 06/19/24 07:00 99.6 99.6 Total Intake and Output 06/18/24 06/18/24 06/19/24 15:00 23:00 07:00 Intake Total 100 ml 250 ml 200 ml Output Total 1245 ml 841 ml Balance 100 ml -995 ml -641 ml medications Current Medications Medications Dose Ordered Sig/Nora Route Start Time Stop Time Status Last Admin Dose Admin Acetaminophen 650 mg Q6HPRN PRN OH 05/16/24 22:30 06/16/24 03:36 650 MG Pantoprazole Sodium 40 mg DAILY IV 05/17/24 10:00 06/19/24 07:35 40 MG Vancomycin HCl 0 ml @ 0 mls/hr UD IV 05/18/24 07:45 Cancel Potassium Chloride 100 ml @ 50 mls/hr Q2H IV 05/22/24 12:30 05/22/24 16:29 Cancel Diagnostic Test (Pha) 1 strip Q6HR 05/24/24 12:00 06/19/24 05:55 1 STRIP Insulin Human Regular FOLLOW SLIDING SCALE Q6HR SC 05/24/24 12:00 06/19/24 05:55 2 UNITS Dextrose 50 ml UD IV 05/24/24 12:00 Enoxaparin Sodium 70 mg Q12HR SC 06/01/24 22:00 06/19/24 07:35 70 MG Labetalol HCl 10 mg Q2HPRN PRN IV 06/02/24 07:45 06/15/24 01:14 10 MG Hydralazine HCl 10 mg Q4HPRN PRN IV 06/08/24 12:45 Ondansetron HCl 4 mg Q4HPRN PRN IV 06/09/24 13:30 06/10/24 16:14 4 MG Nicotine 1 patch DAILY TD 06/11/24 10:00 06/19/24 07:35 1 PATCH Fluticasone Propionate 50 mcg Q12HR EACHNOSTRI 06/11/24 22:00 06/19/24 07:35 50 MCG Piperacillin Sod/ Tazobactam Sod 100 ml @ 25 mls/hr Q8HR IV 06/12/24 15:45 06/19/24 05:56 25 MLS/HR Metoprolol Tartrate 4 mg Q6HPRN PRN IV 06/13/24 10:45 Fluconazole 100 ml @ 100 mls/hr 10,11 IV 06/16/24 10:00 Cancel Aspirin 81 mg DAILY PO 06/17/24 10:00 06/19/24 07:35 81 MG Enteral Nutritional Formula 240 ml TIDWM PO 06/16/24 18:00 06/19/24 08:23 240 ML Acetaminophen 650 mg Q6HP PRN PO 06/18/24 09:45 06/19/24 08:03 650 MG objective General: the patient is well developed and nourished. No acute distress. ABDOMEN: Status post surgery MENTAL STATUS: Subjective. CRANIAL NERVES: Pupils are round and reactive, mild left eyelid ptosis. normal external eye movement, normal sensation and motor examination in the lateral trigeminal nerve distribution, no facial weakness. No abnormal vascular dilatation in the face, eye, no abnormal facial skin secretion SENSATION: Okay to pinprick and light touch MOTOR: Normal tone in the upper and lower extremity. Normal muscle bulk. No fasciculations. She can move the right arm and the legs REFLEXES: Deep tendon reflexes are symmetrical. No pathological reflexes. CEREBELLAR/COORDINATION: Deferred GAIT/STATION: deferred. laboratory and microbiology Laboratory Tests 06/19/24 04:40 Test 06/19/24 04:40 Range/Units Serum Glucose 146 H 74-106 mg/dL Problem List Pelvic prolapse, can count urethrovesical junction, surgery repair on 05/07/2024 (Robotic supracervical hysterectomy bilateral salpingo-oophorectomy colposcopic pexy cystocele repair urethral sling partial vaginectomy) Bowel obstruction with perforation, intra-abdominal abscess, dense at [place], status post surgery 05/16/2024 Sepsis/septic shock Metabolic encephalopathy Acute right MCA territory multiple strokes MRI head 05/11/2024) Recurrent right MCA territory stroke,(MRI head 06/15/24) Left hemiparesis Right ICA occlusion Left ICA severe stenosis Anemia, with unstable H&H Status post oophorectomy, hysterectomy Anisocoria, maybe related to her carotid he was sclerosis DVT Assessment/Plan Monitoring Supportive treatment [facility] care Stabilize vitals Respiratory support IV antibiotics Oxygen Aspirin 81 mg daily Lovenox 70 mg subQ b.i.d. TPN GI prophylaxis Further address bilateral carotid stenosis CLARA on discharge Surgery on case More recommendation per clinical course This medical document was created using an electronic medical record system with [employer] dictation system. Although this document has been carefully reviewed, there may still be some phonetic and typographical errors. These areas are purely typographical due to imperfections of the software programs, and do not reflect any compromise in the patient's medical care Prognosis poor Dietary Evaluation Review Comments: 1) Advance pt diet when medically feasible to a 2gmNa diet modified per [employer] recommendations 2) Continue current plan of care Expected Outcomes/Goals: 1) Pt diet to advance 2) F/U in 2-3 days Plan discussed with: BRYAN Angeles MD Jun 19, 2024 10:14
--- NOTE | 2024-06-19 15:33 | DVHPN2 ---
Subjective No new complaints Reviewed: Care Plan, H&P, Labs, Medications, Previous Orders, Radiology Changes from previous H/P or p: Changes General: Per HPI Eyes: No Pain, No Vision change, No Conjunctivae inflammation, No Eyelid inflammation, No Other, No Redness ENT: No Ear pain, No Ear discharge, No Nose pain, No Nose discharge, No Nose congestion, No Mouth pain, No Mouth swelling, No Throat pain, No Throat swelling, No Other Cardiovascular: No Chest Pain, No Palpitations, No Orthopnea, No Paroxysmal Noc. Dyspnea, No Edema, No Lt Headedness, No Other Respiratory: No Cough, No Dry, No Shortness of breath, No SOB with excertion, No Wheezing, No Hemoptysis, No Pleuritic Pain, No Sputum, No Other Gastrointestinal: Nausea Genitourinary: No Dysuria, No Frequency, No Incontinence, No Hematuria, No Retention, No Other Musculoskeletal: No other, No neck pain, No shoulder pain, No arm pain, No back pain, No hand pain, No leg pain, No foot pain Skin: No Rash, No Lesions, No Jaundice, No Bruising, No Other Objective Vitals Vital Signs Date Time Temp Pulse Resp B/P (MAP) Pulse Ox O2 Delivery O2 Flow Rate FiO2 06/19/24 13:00 97.8 98 20 137/73 (94) 99 97.8 06/19/24 08:00 Room Air* 0 21 Intake/Output Intake and Output 06/19/24 07:00 Intake Total 550 ml Output Total 2086 ml Balance -1536 ml Intake Oral 250 ml IV Total 300 ml Output Urine Total 1275 ml Stool Total 700 ml Other 111 ml General Appearance: Alert, Oriented X3, Cooperative, No acute distress, m oderate distress HEENT: Atraumatic, PERRLA, Other (Pupils equal, 4 mm, reactive to light to 3 mm) Lungs: Clear to auscultation, Normal air movement, Other (Mechanical ventilation) Cardiovascular: Regular rate, Normal S1, Normal S2 Abdomen: Other (Ileostomy with drainage. 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) Skin: Dry, Intact, Other (Surgical incision dry and intact) Psych/Mental Status: Mental status NL, Mood NL Medications Current Medications Medications Dose Ordered Sig/Nora Route Start Time Stop Time Status Last Admin Dose Admin Acetaminophen 650 mg Q6HPRN PRN NM 05/16/24 22:30 06/16/24 03:36 650 MG Pantoprazole Sodium 40 mg DAILY IV 05/17/24 10:00 06/19/24 07:35 40 MG Vancomycin HCl 0 ml @ 0 mls/hr UD IV 05/18/24 07:45 Cancel Potassium Chloride 100 ml @ 50 mls/hr Q2H IV 05/22/24 12:30 05/22/24 16:29 Cancel Diagnostic Test (Pha) 1 strip Q6HR 05/24/24 12:00 06/19/24 11:43 1 STRIP Insulin Human Regular FOLLOW SLIDING SCALE Q6HR SC 05/24/24 12:00 06/19/24 11:43 4 UNITS Dextrose 50 ml UD IV 05/24/24 12:00 Enoxaparin Sodium 70 mg Q12HR SC 06/01/24 22:00 06/19/24 07:35 70 MG Labetalol HCl 10 mg Q2HPRN PRN IV 06/02/24 07:45 06/15/24 01:14 10 MG Hydralazine HCl 10 mg Q4HPRN PRN IV 06/08/24 12:45 Ondansetron HCl 4 mg Q4HPRN PRN IV 06/09/24 13:30 06/10/24 16:14 4 MG Nicotine 1 patch DAILY TD 06/11/24 10:00 06/19/24 07:35 1 PATCH Fluticasone Propionate 50 mcg Q12HR EACHNOSTRI 06/11/24 22:00 06/19/24 07:35 50 MCG Piperacillin Sod/ Tazobactam Sod 100 ml @ 25 mls/hr Q8HR IV 06/12/24 15:45 06/19/24 14:36 25 MLS/HR Metoprolol Tartrate 4 mg Q6HPRN PRN IV 06/13/24 10:45 Fluconazole 100 ml @ 100 mls/hr 10,11 IV 06/16/24 10:00 Cancel Aspirin 81 mg DAILY PO 06/17/24 10:00 06/19/24 07:35 81 MG Enteral Nutritional Formula 240 ml TIDWM PO 06/16/24 18:00 06/19/24 12:00 240 ML Acetaminophen 650 mg Q6HP PRN PO 06/18/24 09:45 06/19/24 14:36 650 MG Laboratory Results Laboratory Tests 06/19/24 04:40 Chemistry Test 06/19/24 04:40 Albumin 3.9 g/dL (3.2-4.8) Calcium Level 10.5 mg/dL (8.7-10.4) H Magnesium Level 2.2 mg/dL (1.6-2.6) Total Protein 7.9 g/dL (5.7-8.2) LFT Test 06/19/24 04:40 Alanine Aminotransferase (ALT) 21 U/L (7-40) Alkaline Phosphatase 166 U/L (46-116) H Aspartate Amino Transferase (AST) 17 U/L (13-40) Total Bilirubin 1.3 mg/dL (0.2-1.0) H Urinalysis Test 05/11/24 16:18 Urine Color Yellow (Yellow) Urine Clarity Clear (Clear) Urine pH 6.0 (5.0-9.0) Urine Specific [place] 1.020 (1.001-1.035) Urine Protein 1+ (Negative) H Urine Ketones 4+ (Negative) H Urine Blood Trace /uL (Negative) H Urine Nitrite Negative (Negative) Urine Bilirubin Negative (Negative) Urine Urobilinogen Normal mg/dL (Negative) Urine Leukocyte Esterase Negative /uL (Negative) Urine RBC 2 /hpf (0 - 4) Urine WBC 2 /hpf (0 - 5) Urine Squamous Epithelial Cells Few /hpf (<5) Urine Bacteria None seen /hpf (None Seen) Urine Mucus Few (None Seen) Urine Glucose Normal mg/dL (Normal) Microbiology Microbiology Date/Time Source Procedure Growth Status 06/17/24 15:00 Blood Blood Culture - Preliminary NO GROWTH AFTER 48 HOURS OF INCUBATION. Resulted 06/17/24 11:00 Urine - [place] Urine Culture - Final Complete 06/07/24 03:00 Abdomen Gram Stain - Final Complete 06/07/24 03:00 Abdomen Wound Culture - Final Complete 05/16/24 14:20 Sputum Gram Stain - Final Complete 05/16/24 14:20 Respiratory Culture - Final Yeast, not Shaw[place] albicans Complete Assessment/Plan Assessment/Plan Robotic surgery hysterectomy and salpingo-oophorectomy complicated by Acute CVA Acute CVA w LUE hemiparesis Bowel perforation with repeat exploratory laparotomy with ileostomy creation History of breast cancer with bilateral mastectomies Afib RVR Acute hypoxic respiratory failure Mechanical intubation Exploratory laparotomy, drainage of intraabdominal abscess, thorough peritoneal lavage with reinforcement of the anastomotic location of the previous anastomosis as well as a diverting loop ileostomy on 05/24/24 Anemia Right upper extremity DVT Plan Mechanical ventilation TPN IV antibiotics: Vancomycin + Meropenem No vasopressors Sedation prn GI Prophylaxis: Protonix Transfuse blood prn 05/29/24: Transfuse 1 unit RBCs for Hb 5.9 Lasix 20 mg IV x1 Check Hb after transfusion Off pressors Antibiotics: Meropenem, Vanco, Micafungin Amiodarone IV Taper sedation down as tolerated CXR: Clear TPN Protonix 05/30/24: Discussed with Dr. Fritz Lake Will do CT ABD pelvis to follow up on abscess IV antibiotics Taper sedation down C-PAP? per Dr. Poon 05/31/24: CT abdomen showed no fluid collection IV antibiotics: Meropenem, Vancomycin & Micafungin Amiodarone Dr. Fritz Lake recommended to continue medical treatment, no surgical intervention Sedation as needed TPN 06/01/2024: Start Lovenox 70 mg subQ q.[address] Lake and Neurology IV antibiotics meropenem and vancomycin Micafungin TPN Tapered down sedation as tolerated 06/02/24: Fever Yeast in cultures: Micafungin IV antibiotics: Meropenem & Vanco TPN RUE DVT: Lovenox Normocytic anemia 7.9 Consult ID Scott Cultures Afib: Amiodarone drbonilla Discussed with her sister over the phone 06/03/2024: IV antibiotics: Meropenem and vancomycin IV antifungal: Micafungin TPN Amiodarone IV Dr. Fritz Lake for surgery is on the case 06/04/24: Abdominal infection: IV antibiotics: Meropenem, Vanco and Micafungin TPN Amiodarone Surgery on case: Will discuss with Dr. Fritz Lake regarding tracheostomy ID consult is pending Discussed with sister over the phone, family is agreeable with the trach Anemia: Transfuse one unit RBCs 06/05/24: Hypokalemia: Replace IV antibiotics: Meropenem and Vanco IV antifungals: Micafungin TPN Amiodarone Discussed with Dr. Lake regarding tracheostomy Remove central line PICC line 06/06/24: Repeat CT abdomen & pelvis Discussed with her sister Lianet over the phone Discussed the advance directives She stated that patient as stated before that she wants to be treated but only if she becomes a vegetable then she would stop the treatment The family for now would like to continue treatment We will get a new blood and urine and sputum cultures Continue IV antibiotics and IV antifungal Dr. Lake is evaluating the patient for possible tracheostomy in the next few days 06/07/2024: Off sedation CPAP trial TPN Amiodarone IV antibiotics and antifungals Full code 06/08/24: Afib RVR, start Metoprolol IV scheduled dose Amiodarone is off HTN: Hydralazine Rocephin Flagyl Micafungin TPN NGT to suction Lovenox Hydralazine 06/09/24: Continue current Tx IV antibiotics Metoprolol IV NPO Tube suction 06/11/2024: Patient is stable Fever: Continue IV antibiotics : Rocephin, Flagyl, micafungin Abdominal infection Acute CVA with left sided weakness Atrial fibrillation Hypertension TPN Lovenox IV metoprolol IV Protonix Discussed with her sister over the phone Nicotine patch 06/12/2024 Continue current management Downgrade to the FLYNN NPO TPN 06/13/24: Swallow eval Downgrade to FLYNN Start clear liquids if she can swallow IV antibiotics PRN Metoprolol for HR>110 Hydralazine for BP 06/14/24: Downgrade to FLYNN Pureed diet Continue antibiotics Physical therapy 06/15/24: Rule out CVA: Ct Head CT abd & pel Hold Lovenox Continue IV antibiotics Discussed with Dr. Fritz Lake 06/16/24: Resume diet Physical therapy IV antibiotics Resume Lovenox Aspirin 06/17/2024: Continue TPN for now since the patient does not have adequate p.o. intake yet Advance diet as tolerated Due to the lethargy and confusion, we will do scott cultures of the urine and blood and wound and urinalysis Continue Aspirin Continue Lovenox Physical therapy IV antibiotics: Voriconazole, Zosyn 06/18/2024: Continue physical therapy Discontinue TPN Advance p.o. intake Consult social work manager to arrange SNF for rehab Downgrade to telemetry 06/19/2024: Continue physical therapy Arrange SNF IV antibiotics: Zosyn Atrial fibrillation and right upper extremity DVT: Switch Lovenox to Eliquis Continue aspirin TPN has been discontinued Advance diet as tolerated Ensure Nicotine patch Right arm DVT change Lovenox to Eliquis Plan discussed with: Patient Date of Service: Jun 19, 2024 Billing Provider: BARI MOORE MD Common Visit Codes: NOT BILLABLE BARI MOORE MD Jun 19, 2024 15:33
[2024-06-19] MEDS ORDERED: DEXTROSE (50%) 50ML SYRG IV PRN (15:45)
--- NOTE | 2024-06-19 16:17 | DVHPN2 ---
Progress Note Date Seen: Jun 19, 2024 Has the PT tested + for MRSA If YES, has PT been informed?: No Medical Necessity Reason Pt with a Central, PICC or Fol: Yes The following are medically ne: Muhammad Catheter Reason for muhammad catheter: Strict I&O Objective vital signs Vital Sign Date Time Temp Pulse Resp B/P (MAP) Pulse Ox O2 Delivery O2 Flow Rate FiO2 06/19/24 13:00 97.8 98 20 137/73 (94) 99 97.8 06/19/24 08:00 Room Air* 0 21 Total Intake and Output 06/18/24 06/18/24 06/19/24 15:00 23:00 07:00 Intake Total 100 ml 250 ml 200 ml Output Total 1245 ml 841 ml Balance 100 ml -995 ml -641 ml medications Current Medications Medications Dose Ordered Sig/Nora Route Start Time Stop Time Status Last Admin Dose Admin Vancomycin HCl 0 ml @ 0 mls/hr UD IV 05/18/24 07:45 Cancel Potassium Chloride 100 ml @ 50 mls/hr Q2H IV 05/22/24 12:30 05/22/24 16:29 Cancel Labetalol HCl 10 mg Q2HPRN PRN IV 06/02/24 07:45 06/15/24 01:14 10 MG Hydralazine HCl 10 mg Q4HPRN PRN IV 06/08/24 12:45 Ondansetron HCl 4 mg Q4HPRN PRN IV 06/09/24 13:30 06/10/24 16:14 4 MG Nicotine 1 patch DAILY TD 06/11/24 10:00 06/19/24 07:35 1 PATCH Fluticasone Propionate 50 mcg Q12HR EACHNOSTRI 06/11/24 22:00 06/19/24 07:35 50 MCG Piperacillin Sod/ Tazobactam Sod 100 ml @ 25 mls/hr Q8HR IV 06/12/24 15:45 06/19/24 14:36 25 MLS/HR Fluconazole 100 ml @ 100 mls/hr IV 06/16/24 10:00 Cancel Aspirin 81 mg DAILY PO 06/17/24 10:00 06/19/24 07:35 81 MG Enteral Nutritional Formula 240 ml TIDWM PO 06/16/24 18:00 06/19/24 12:00 240 ML Acetaminophen 650 mg Q6HP PRN PO 06/18/24 09:45 06/19/24 14:36 650 MG Famotidine 20 mg DAILY PO 06/20/24 10:00 Apixaban 5 mg BID PO 06/19/24 22:00 Diagnostic Test (Pha) 1 strip ACHS 06/19/24 17:00 Insulin Human Regular ACHS SC 06/19/24 17:00 Dextrose 50 ml UD PRN IV 06/19/24 15:45 laboratory and microbiology Laboratory Tests 06/19/24 04:40 Test 06/19/24 04:40 Range/Units Serum Glucose 146 H 74-106 mg/dL Microbiology Date/Time Source Procedure Growth Status 06/17/24 15:00 Blood Blood Culture - Preliminary NO GROWTH AFTER 48 HOURS OF INCUBATION. Resulted 06/17/24 11:00 Urine - Muhammad Port Urine Culture - Final Complete 06/07/24 03:00 Abdomen Gram Stain - Final Complete 06/07/24 03:00 Abdomen Wound Culture - Final Complete 05/16/24 14:20 Sputum Gram Stain - Final Complete 05/16/24 14:20 Respiratory Culture - Final Yeast, not Shawanda albicans Complete Problem List/Assessment/Plan Problem List/Assessment/Plan AFEBRILE VSS WBC ELEVATED BUT DOWN ABD SOFT DRAINS IN PLACE L FLANK DRAINED PULLED OUT PER NURSING STAFF DURING DRESSING CHANGE DRESSING ABD WOUND DRAINAGE LESS CONDITION GUARDED ILEOSTOMY VIABLE AND FUNCTIONAL NURSE AT BEDSIDE CONTINUE SUPPORTIVE CARE CONTINUE ID EVAL AND IV ABX NURSE AT BEDSIDE FAMILY AWARE AND UPDATED RE HER ONGOING CARE AND CONDITION Plan discussed with: Patient Dietary Evaluation Review Comments: 1) Advance pt diet when medically feasible to a 2gmNa diet modified per BRIQUETTING MACHINE OPERATOR recommendations 2) Continue current plan of care Expected Outcomes/Goals: 1) Pt diet to advance 2) F/U in 2-3 days SHEY COVARRUBIAS MD Jun 19, 2024 16:17
[2024-06-19] MEDS: ACCU-CHEK COMFORT CURVE STRIP VI SCH (16:52)
[2024-06-19] MEDS: InsuLIN REG 1unit/0.01ml Soln (100units/ml) SC SCH (16:55)
--- NOTE | 2024-06-19 20:58 | DVHPN2 ---
Progress Note - Dictate Date Seen: Jun 19, 2024 Has the PT tested + for MRSA If YES, has PT been informed?: No Medical Necessity Reason Pt with a Central, PICC or Fol: Yes The following are medically ne: Muhammad Catheter Reason for muhammad catheter: Strict I&O Subjective Patient seen and examined at bedside. Breathing on room air. Overnight events reviewed. vital signs Vital Sign Date Time Temp Pulse Resp B/P (MAP) Pulse Ox O2 Delivery O2 Flow Rate FiO2 06/19/24 16:19 98.1 103 20 133/66 (88) 97 98.1 06/19/24 08:00 Room Air* 0 21 Total Intake and Output 06/18/24 06/18/24 06/19/24 15:00 23:00 07:00 Intake Total 100 ml 250 ml 200 ml Output Total 1245 ml 841 ml Balance 100 ml -995 ml -641 ml medications Current Medications Medications Dose Ordered Sig/Nora Route Start Time Stop Time Status Last Admin Dose Admin Vancomycin HCl 0 ml @ 0 mls/hr UD IV 05/18/24 07:45 Cancel Potassium Chloride 100 ml @ 50 mls/hr Q2H IV 05/22/24 12:30 05/22/24 16:29 Cancel Labetalol HCl 10 mg Q2HPRN PRN IV 06/02/24 07:45 06/15/24 01:14 10 MG Hydralazine HCl 10 mg Q4HPRN PRN IV 06/08/24 12:45 Ondansetron HCl 4 mg Q4HPRN PRN IV 06/09/24 13:30 06/10/24 16:14 4 MG Nicotine 1 patch DAILY TD 06/11/24 10:00 06/19/24 07:35 1 PATCH Fluticasone Propionate 50 mcg Q12HR EACHNOSTRI 06/11/24 22:00 06/19/24 07:35 50 MCG Fluconazole 100 ml @ 100 mls/hr 10,11 IV 06/16/24 10:00 Cancel Aspirin 81 mg DAILY PO 06/17/24 10:00 06/19/24 07:35 81 MG Enteral Nutritional Formula 240 ml TIDWM PO 06/16/24 18:00 06/19/24 18:00 240 ML Acetaminophen 650 mg Q6HP PRN PO 06/18/24 09:45 06/19/24 14:36 650 MG Famotidine 20 mg DAILY PO 06/20/24 10:00 Apixaban 5 mg BID PO 06/19/24 22:00 Diagnostic Test (Pha) 1 strip ACHS 06/19/24 17:00 06/19/24 16:52 1 STRIP Insulin Human Regular ACHS SC 06/19/24 17:00 06/19/24 16:55 3 UNITS Dextrose 50 ml UD PRN IV 06/19/24 15:45 Ciprofloxacin 500 mg Q12HR PO 06/19/24 22:00 objective Gen.: Patient lying in bed in no apparent distress. Breathing on room air. Head: Normocephalic, atraumatic. Eyes: EOMI/PERRLA. Ears: Normal hearing. Normal anatomy. Neck/trachea: Trachea midline, supple. Nose: Normal external anatomy. Mouth: Moist mucous membranes. Chest: Decreased air entry bilaterally. No wheezing or rhonchi. Cardiovascular: Positive S1, positive S2. Regular rate and rhythm. Abdomen: Positive bowel sounds in all 4 quadrants. Soft, non-tender, non- distended. : Deferred. Rectal: Deferred. Skin: Warm, dry. Intact. Extremities: 2+ radial pulses bilaterally. No lower extremity edema. Neuro: Awake, alert, oriented x3. No gross motor or sensory deficits. Cranial nerves II through XII intact. Gait not assessed. laboratory and microbiology Laboratory Tests 06/19/24 04:40 Test 06/19/24 04:40 Range/Units Serum Glucose 146 H 74-106 mg/dL Assessment/Plan Impression: Acute hypoxic respiratory failure Abdominal pain due to recent robotic surgery hysterectomy and salpingo- oophorectomy History of breast cancer with bilateral mastectomies History of bowel surgery and ileostomy Anemia due to hemorrhage on hemodilution Shock Chronic pain syndrome Anemia Atrial fibrillation with RVR Bowel perforation with repeat exploratory laparotomy with ileostomy creation Events: Breathing on room air. No respiratory distress. Off TPN Patient is stable for discharge from the pulmonary standpoint. Plan for SNF placement. Continue abx - Zosyn and ciprofloxacin. Pain control Avoid oversedation . Surgery recommendations appreciated Brain MRI demonstrated subacute infarct involving the high convexity right frontal lobe with additional smaller focus over the right anterior mid convexity frontal lobe and punctate focus over the right mid convexity parietal lobe. Neurology recs appreciated. Head of bed elevation Aspiration precautions. Upper extremity Doppler showed nonocclusive thrombus in the right axillary vein and brachial vein Currently on enoxaparin 70 mg subcutaneous Monitor renal function Monitor electrolytes, supplement as necessary Patient is stable for discharge from the pulmonary standpoint. Plan for SNF placement. Labs and imaging reviewed Rest of plan as outlined below. Plan: S/p extubation on 06/07 On room air - supplemental oxygen PRN Titrate to keep sats above 92% CXR, ABG reviewed. Pressors as necessary for hemodynamic support - currently off Titrate to keep mean arterial pressure greater than 65 mmHg. Continue antibiotics. F/u cultures. Monitor hemoglobin Transfuse if less than 7.0 grams/deciliter Monitor renal function due to Acute kidney injury. Monitor electrolytes. Supplement as necessary. Surgery recommendations appreciated. Nutritional support. On TPN Accucheks, ISS. GI prophylaxis - Pantoprazole 40 DVT prophylaxis- on enoxaparin 70 SC Prognosis: Poor given multiple comorbidities. Rest of plan per hospitalist and other consultants. Thank you Dr Reid for allowing me to participate in this patient's care. Further recommendations will depend on patient's clinical course. Please do not hesitate to contact me if you have any questions or concerns. This medical document was created using an electronic medical record system with [employer] dictation system. Although this document has been carefully reviewed, there may still be some phonetic and typographical errors. These areas are purely typographical due to imperfections of the software programs, and do not reflect any compromise in the patient's medical care. Dietary Evaluation Review Comments: 1) Advance pt diet when medically feasible to a 2gmNa diet modified per DISTRICT SERVICE MANAGER recommendations 2) Continue current plan of care Expected Outcomes/Goals: 1) Pt diet to advance 2) F/U in 2-3 days Plan discussed with: Patient, Other (YASH Newman) RG LEONE MD Jun 19, 2024 20:58
[2024-06-19] MEDS: CIPROFLOXACIN HCL 500 MG TAB PO SCH (21:13)
[2024-06-19] MEDS: APIXABAN 5 MG TAB PO SCH (21:13)
--- NOTE | 2024-06-19 21:49 | DVHPN2 ---
Consult Progress Note Date Seen: Jun 19, 2024 Subjective Patient reports: Feels better (tolerating PO intake ) Objective vital signs Vital Sign Date Time Temp Pulse Resp B/P (MAP) Pulse Ox O2 Delivery O2 Flow Rate FiO2 06/19/24 20:00 22 97 Room Air* 0 21 06/19/24 16:19 98.1 103 133/66 (88) 98.1 Total Intake and Output 06/18/24 06/18/24 06/19/24 15:00 23:00 07:00 Intake Total 100 ml 250 ml 200 ml Output Total 1245 ml 841 ml Balance 100 ml -995 ml -641 ml medications Current Medications Medications Dose Ordered Sig/Nora Route Start Time Stop Time Status Last Admin Dose Admin Vancomycin HCl 0 ml @ 0 mls/hr UD IV 05/18/24 07:45 Cancel Potassium Chloride 100 ml @ 50 mls/hr Q2H IV 05/22/24 12:30 05/22/24 16:29 Cancel Labetalol HCl 10 mg Q2HPRN PRN IV 06/02/24 07:45 06/15/24 01:14 10 MG Hydralazine HCl 10 mg Q4HPRN PRN IV 06/08/24 12:45 Ondansetron HCl 4 mg Q4HPRN PRN IV 06/09/24 13:30 06/10/24 16:14 4 MG Nicotine 1 patch DAILY TD 06/11/24 10:00 06/19/24 07:35 1 PATCH Fluticasone Propionate 50 mcg Q12HR EACHNOSTRI 06/11/24 22:00 06/19/24 21:12 50 MCG Fluconazole 100 ml @ 100 mls/hr , IV 06/16/24 10:00 Cancel Aspirin 81 mg DAILY PO 06/17/24 10:00 06/19/24 07:35 81 MG Enteral Nutritional Formula 240 ml TIDWM PO 06/16/24 18:00 06/19/24 18:00 240 ML Acetaminophen 650 mg Q6HP PRN PO 06/18/24 09:45 06/19/24 21:13 650 MG Famotidine 20 mg DAILY PO 06/20/24 10:00 Apixaban 5 mg BID PO 06/19/24 22:00 06/19/24 21:13 5 MG Diagnostic Test (Pha) 1 strip ACHS 06/19/24 17:00 06/19/24 21:14 1 STRIP Insulin Human Regular ACHS SC 06/19/24 17:00 06/19/24 16:55 3 UNITS Dextrose 50 ml UD PRN IV 06/19/24 15:45 Ciprofloxacin 500 mg Q12HR PO 06/19/24 22:00 06/19/24 21:13 500 MG PHYSICAL EXAM: - GENERAL: Alert and oriented x 3. No acute distress. Well-nourished. - EYES: EOMI. Anicteric. - HENT: Moist mucous membranes. No scleral icterus. No cervical lymphadenopathy. - LUNGS: Clear to auscultation bilaterally. No accessory muscle use. - CARDIOVASCULAR: Regular rate and rhythm. No murmur. No JVD. mildly tachycardic of 102 - ABDOMEN: Soft, non-tender and non-distended. No palpable masses. patient accidentally took out EVARISTO drain but site is clean dry and intact - EXTREMITIES: No edema. Non-tender.?SKIN: No rashes or lesions. Warm. - NEUROLOGIC: No focal neurological deficits. CN II-XII grossly intact, but not individually tested. - PSYCHIATRIC: Cooperative. Appropriate mood and affect. laboratory and microbiology Laboratory Tests 06/19/24 04:40 Test 06/19/24 04:40 Range/Units Serum Glucose 146 H 74-106 mg/dL Problem List/Assessment/Plan Problems(with codes): (1) Fungal infection (2) Intra-abdominal abscess (3) SBO (small bowel obstruction) (4) Stroke (5) Anemia (6) Breast cancer (7) Hypertension Problem List/Assessment/Plan Assessment and Plan: ID Problem List: 1. Small bowel obstruction with perforation 2. Septic shock 3. Stroke, right MCA territory 4. Hypertension 5. Anemia 6. Breast cancer 7. Bilateral mastectomy 8. Post-surgical complications (including ileostomy creation) 9. Fungal infection (yeast not Radha albicans) 10. Strep Viridans Group B infection Assessment: This is a 68-year-old female, with a significant past medical history of anemia, hypertension, breast cancer status post bilateral mastectomy, and a 50 pack-year smoking history (now quit), who was initially admitted for a robotic hysterectomy with bilateral salpingectomy, removal of a right ovarian mass, cystocele repair with urethral sling. Postoperatively, she developed hypertension and nausea, necessitating overnight admission. Post-admission, she endured a cerebrovascular accident primarily impacting the right MCA territory and contributing to left-sided weakness. Subsequent evaluations included MRI and CT head scans that confirmed multiple acute and subacute infarcts. Later complications included progression to an acute small bowel obstruction with perforation, leading to emergent exploratory laparotomy and subsequent ileostomy creation. Cultures from the surgical sites revealed a non-Radha albicans yeast and Strep Viridans Group B infection. The patient continues to require ICU support, primarily due to ongoing septic shock and the need for ventilatory assistance. Patient remains intubated with vasopressors being weaned off. Recent WBC count was 16.9 and hemoglobin levels have fluctuated, dropping as low as 5.9. She has been transitioned to a multi-antibiotic regimen including meropenem, vancomycin, and TPN for nutritional support. 06/04: hemoglobin of 6.9, suspect ongoing blood loss. Preliminary blood cultures are no growth for 48 hours as well as wound and urine cultures with no growth 06/05: hemoglobin of 8.4 after blood transfusion. Repeat cultures of the abdomen is showing no organisms 06/06: Ct pelvis abdomen shows fairly stable appearing radio dense contrast in the central mid abdomen with adjacent surgical sutures. Small bowel ascites. drainage catheter terminating in the pelvis and upper abdomen, stable appearing intraabdominal acities. extensive post-surgical changes that ate unchanged. a small to moderate right mid size plural effusion. Chest x-ray was done and shows no focal consolidation in the lungs 06/07: Chest x-ray done before the excavation, showing pulmonary disease 06/08: Abdominal drain fluids and patients surgical site has been cultured. Removal of catheter tip from yesterday shows staphylococcus and micrococcus , likely skin florac contamination . White count of 12.4 today and will continue to monitor 06/12: has been having persistent fevers for the last 48 hours , chest x-ray appears clear , leukocytosis , fungus was growing from operative cultures , filamentous. Raising possibilities of fussarium, aspergillus , penicillium , although these are less likely than radha. suspect that patient is having a rise in fevers due to untreated bacteria . 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 vascular surgery was recommended for intervention of left ICA. Put back on NPL status , remains lethargic aphasic , no speaking , no weakness in upper extremities or lower , arousable but lethargic. started on statin continued on anticoagulation. MRI of brain shows subacute involving the high convexity right frontal lobe with additional smaller focus over the right anterior mid convexity focus over the right mid convex 70% parieteal lobe 06/17: Patient has been on IV micafungen and fruconazol since 05/23 , is tolerating feeds through mouth without any difficulty 06/18: Blood cultures are no growth to date and urine cultures have no growth. unclear why patient had fever, could be related to mild aspiration Plan: - Switch Zosyn to ciprofloxcine -continue antibiotics for another 7 days and stop if there are no ongoing signs of infection - Recommend an EKG in 5 days Plan discussed with: Other Dietary Evaluation Review Comments: 1) Advance pt diet when medically feasible to a 2gmNa diet modified per MUSIC SPECIALIST recommendations 2) Continue current plan of care Expected Outcomes/Goals: 1) Pt diet to advance 2) F/U in 2-3 days MEY VICTORIA MD Jun 19, 2024 21:49
[2024-06-20] VITALS (8 sets, daily range): BP systolic 107–137; BP diastolic 32–62; PULSE 95–109; RESP 17–23; TEMP 98–98.5; O2SAT 97–100
[2024-06-20] MEDS: FAMOTIDINE 20 MG TAB PO SCH (10:35)
[2024-06-20] MEDS ORDERED: HYDR-4798 PO (12:27)
[2024-06-20] MEDS ORDERED: ZOFR4T PO (12:28)
[2024-06-20 12:34] LABS: Urine Bacteria FEW /hpf (None Seen); Urine Blood TRACE /uL (Negative); Urine Clarity Turbid (Clear); Urine Color Yellow (Yellow); Urine Hyaline Cast FEW /lpf (0 - 2); Urine Mucus FEW (None Seen); Urine Protein, UAD 1+ (Negative); Urine Specific Gravity 1.023 (1.001-1.035); Urine Urobilinogen Normal (Negative); Urine WBC 63 /hpf (0 - 5)
--- NOTE | 2024-06-20 14:41 | DVHPN2 ---
Subjective Complains of generalized pain She is able to move her left hand fingers somewhat now Reviewed: Care Plan, H&P, Labs, Medications, Previous Orders, Radiology Changes from previous H/P or p: Changes General: Per HPI Eyes: No Pain, No Vision change, No Conjunctivae inflammation, No Eyelid inflammation, No Other, No Redness ENT: No Ear pain, No Ear discharge, No Nose pain, No Nose discharge, No Nose congestion, No Mouth pain, No Mouth swelling, No Throat pain, No Throat swelling, No Other Cardiovascular: No Chest Pain, No Palpitations, No Orthopnea, No Paroxysmal Noc. Dyspnea, No Edema, No Lt Headedness, No Other Respiratory: No Cough, No Dry, No Shortness of breath, No SOB with excertion, No Wheezing, No Hemoptysis, No Pleuritic Pain, No Sputum, No Other Gastrointestinal: Nausea Genitourinary: No Dysuria, No Frequency, No Incontinence, No Hematuria, No Retention, No Other Musculoskeletal: No other, No neck pain, No shoulder pain, No arm pain, No back pain, No hand pain, No leg pain, No foot pain Skin: No Rash, No Lesions, No Jaundice, No Bruising, No Other Objective Vitals Vital Signs Date Time Temp Pulse Resp B/P (MAP) Pulse Ox O2 Delivery O2 Flow Rate FiO2 06/20/24 13:00 98.5 99 17 107/32 (57) 100 98.5 06/19/24 20:00 Room Air* 0 21 Intake/Output Intake and Output 06/20/24 07:00 Intake Total 1270 ml Output Total 1750 ml Balance -480 ml Intake Oral 1270 ml Output Urine Total 750 ml Gastric Drainage Total 950 ml Drainage Total 50 ml General Appearance: Alert, Oriented X3, Cooperative, No acute distress, m oderate distress HEENT: Atraumatic, PERRLA, Other (Pupils equal, 4 mm, reactive to light to 3 mm) Lungs: Clear to auscultation, Normal air movement, Other (Mechanical ventilation) Cardiovascular: Regular rate, Normal S1, Normal S2 Abdomen: Other (Ileostomy with drainage. EVARISTO to right lower quadrant with thick serosanguineous secretions.) Musculoskeletal: Other (Unable to assess) Extremities: No edema, Other (Poor cap refill to left lower extremity with some cyanosis noted) Neuro: Other (Left arm weakness including dry cell tester and proximal muscles) Skin: Dry, Intact, Other (Surgical incision dry and intact) Psych/Mental Status: Mental status NL, Mood NL Medications Current Medications Medications Dose Ordered Sig/Nora Route Start Time Stop Time Status Last Admin Dose Admin Vancomycin HCl 0 ml @ 0 mls/hr UD IV 05/18/24 07:45 Cancel Potassium Chloride 100 ml @ 50 mls/hr Q2H IV 05/22/24 12:30 05/22/24 16:29 Cancel Labetalol HCl 10 mg Q2HPRN PRN IV 06/02/24 07:45 06/15/24 01:14 10 MG Hydralazine HCl 10 mg Q4HPRN PRN IV 06/08/24 12:45 Ondansetron HCl 4 mg Q4HPRN PRN IV 06/09/24 13:30 06/10/24 16:14 4 MG Nicotine 1 patch DAILY TD 06/11/24 10:00 06/20/24 10:34 1 PATCH Fluticasone Propionate 50 mcg Q12HR EACHNOSTRI 06/11/24 22:00 06/20/24 10:00 50 MCG Fluconazole 100 ml @ 100 mls/hr 10,11 IV 06/16/24 10:00 Cancel Aspirin 81 mg DAILY PO 06/17/24 10:00 06/20/24 10:33 81 MG Enteral Nutritional Formula 240 ml TIDWM PO 06/16/24 18:00 06/20/24 08:00 240 ML Acetaminophen 650 mg Q6HP PRN PO 06/18/24 09:45 06/20/24 12:34 650 MG Famotidine 20 mg DAILY PO 06/20/24 10:00 06/20/24 10:35 20 MG Apixaban 5 mg BID PO 06/19/24 22:00 06/20/24 10:33 5 MG Diagnostic Test (Pha) 1 strip ACHS 06/19/24 17:00 06/20/24 12:21 1 STRIP Insulin Human Regular ACHS SC 06/19/24 17:00 06/20/24 06:21 2 UNITS Dextrose 50 ml UD PRN IV 06/19/24 15:45 Ciprofloxacin 500 mg Q12HR PO 06/19/24 22:00 06/20/24 10:35 500 MG Laboratory Results Laboratory Tests 06/19/24 04:40 Urinalysis Test 06/20/24 10:56 Urine Color Yellow (Yellow) Urine Clarity Turbid (Clear) H Urine pH 5.0 (5.0-9.0) Urine Specific [place] 1.023 (1.001-1.035) Urine Protein 1+ (Negative) H Urine Ketones Negative (Negative) Urine Blood Trace /uL (Negative) H Urine Nitrite Negative (Negative) Urine Bilirubin Negative (Negative) Urine Urobilinogen Normal mg/dL (Negative) Urine Leukocyte Esterase 2+ /uL (Negative) Urine RBC 7 /hpf (0 - 4) Urine WBC 63 /hpf (0 - 5) Urine Squamous Epithelial Cells Few /hpf (<5) Urine Bacteria Few /hpf (None Seen) H Urine Hyaline Casts Few /lpf (0 - 2) Urine Mucus Few (None Seen) Urine Glucose Normal mg/dL (Normal) Microbiology Microbiology Date/Time Source Procedure Growth Status 06/17/24 15:00 Blood Blood Culture - Preliminary NO GROWTH AFTER 48 HOURS OF INCUBATION. Resulted 06/17/24 11:00 Urine - [place] Urine Culture - Final Complete 06/07/24 03:00 Abdomen Gram Stain - Final Complete 06/07/24 03:00 Abdomen Wound Culture - Final Complete 05/16/24 14:20 Sputum Gram Stain - Final Complete 05/16/24 14:20 Respiratory Culture - Final Yeast, not [place] albicans Complete Assessment/Plan Assessment/Plan Robotic surgery hysterectomy and salpingo-oophorectomy complicated by Acute CVA Acute CVA w LUE hemiparesis Bowel perforation with repeat exploratory laparotomy with ileostomy creation History of breast cancer with bilateral mastectomies Afib RVR Acute hypoxic respiratory failure Mechanical intubation Exploratory laparotomy, drainage of intraabdominal abscess, thorough peritoneal lavage with reinforcement of the anastomotic location of the previous anastomosis as well as a diverting loop ileostomy on 05/24/24 Anemia Right upper extremity DVT Plan Mechanical ventilation TPN IV antibiotics: Vancomycin + Meropenem No vasopressors Sedation prn GI Prophylaxis: Protonix Transfuse blood prn 05/29/24: Transfuse 1 unit RBCs for Hb 5.9 Lasix 20 mg IV x1 Check Hb after transfusion Off pressors Antibiotics: Meropenem, Vanco, Micafungin Amiodarone IV Taper sedation down as tolerated CXR: Clear TPN Protonix 05/30/24: Discussed with Dr. Fritz aLke Will do CT ABD pelvis to follow up on abscess IV antibiotics Taper sedation down C-PAP? per Dr. Poon 05/31/24: CT abdomen showed no fluid collection IV antibiotics: Meropenem, Vancomycin & Micafungin Amiodarone Dr. Fritz Lake recommended to continue medical treatment, no surgical intervention Sedation as needed TPN 06/01/2024: Start Lovenox 70 mg subQ q.[address] Lake and Neurology IV antibiotics meropenem and vancomycin Micafungin TPN Tapered down sedation as tolerated 06/02/24: Fever Yeast in cultures: Micafungin IV antibiotics: Meropenem & Vanco TPN RUE DVT: Lovenox Normocytic anemia 7.9 Consult ID Scott Cultures Afib: Amiodarone drip Discussed with her sister over the phone 06/03/2024: IV antibiotics: Meropenem and vancomycin IV antifungal: Micafungin TPN Amiodarone IV Dr. Fritz Lake for surgery is on the case 06/04/24: Abdominal infection: IV antibiotics: Meropenem, Vanco and Micafungin TPN Amiodarone Surgery on case: Will discuss with Dr. Fritz Lake regarding tracheostomy ID consult is pending Discussed with sister over the phone, family is agreeable with the trach Anemia: Transfuse one unit RBCs 06/05/24: Hypokalemia: Replace IV antibiotics: Meropenem and Vanco IV antifungals: Micafungin TPN Amiodarone Discussed with Dr. Lake regarding tracheostomy Remove central line PICC line 06/06/24: Repeat CT abdomen & pelvis Discussed with her sister Lianet over the phone Discussed the advance directives She stated that patient as stated before that she wants to be treated but only if she becomes a vegetable then she would stop the treatment The family for now would like to continue treatment We will get a new blood and urine and sputum cultures Continue IV antibiotics and IV antifungal Dr. Lake is evaluating the patient for possible tracheostomy in the next few days 06/07/2024: Off sedation CPAP trial TPN Amiodarone IV antibiotics and antifungals Full code 06/08/24: Afib RVR, start Metoprolol IV scheduled dose Amiodarone is off HTN: Hydralazine Rocephin Flagyl Micafungin TPN NGT to suction Lovenox Hydralazine 06/09/24: Continue current Tx IV antibiotics Metoprolol IV NPO Tube suction 06/11/2024: Patient is stable Fever: Continue IV antibiotics : Rocephin, Flagyl, micafungin Abdominal infection Acute CVA with left sided weakness Atrial fibrillation Hypertension TPN Lovenox IV metoprolol IV Protonix Discussed with her sister over the phone Nicotine patch 06/12/2024 Continue current management Downgrade to the FLYNN NPO TPN 06/13/24: Swallow eval Downgrade to FLYNN Start clear liquids if she can swallow IV antibiotics PRN Metoprolol for HR>110 Hydralazine for BP 06/14/24: Downgrade to FLYNN Pureed diet Continue antibiotics Physical therapy 06/15/24: Rule out CVA: Ct Head CT abd & pel Hold Lovenox Continue IV antibiotics Discussed with Dr. Fritz Lake 06/16/24: Resume diet Physical therapy IV antibiotics Resume Lovenox Aspirin 06/17/2024: Continue TPN for now since the patient does not have adequate p.o. intake yet Advance diet as tolerated Due to the lethargy and confusion, we will do scott cultures of the urine and blood and wound and urinalysis Continue Aspirin Continue Lovenox Physical therapy IV antibiotics: Voriconazole, Zosyn 06/18/2024: Continue physical therapy Discontinue TPN Advance p.o. intake Consult social service agency director to arrange SNF for rehab Downgrade to telemetry 06/19/2024: Continue physical therapy Arrange SNF IV antibiotics: Zosyn Atrial fibrillation and right upper extremity DVT: Switch Lovenox to Eliquis Continue aspirin TPN has been discontinued Advance diet as tolerated Ensure Nicotine patch Right arm DVT change Lovenox to Eliquis 06/20/2024: Add [place] for moderate pain Continue Tylenol for mild pain Continue physical therapy The patient is reporting blood clots from her nose: We will lower the Eliquis to 2.5 mg twice a day Continue aspirin 81 mg daily Urinalysis: Culture is pending SNF is being arranged for rehab Discussed with Dr. Lake, he is planning to remove the right-sided EVARISTO drain soon today or tomorrow before discharge to SNF Continue Cipro for now pending the urine culture Discussed with her sister Lianet at the bedside Plan discussed with: Patient, Other My Orders Orders - BARI MOORE MD Procedure Category Date Status Time Famotidine Tablet PHA 06/20/24 In Process (Pepcid Tablet) 10:00 Apixaban (Eliquis) PHA 06/19/24 In Process 22:00 Glucose Blood PHA 06/19/24 In Process (Accu-Chek Comfort 17:00 Insulin R (Human) PHA 06/19/24 In Process (Insulin R) 17:00 Dextrose 50% Syringe PHA 06/19/24 In Process 15:45 Urine Bacterial MIROSLAVA 06/20/24 In Process Culture 11:49 Hydrocodone-Acet PHA 06/20/24 Verified 5/325mg Tab ([place] 14:45 Date of Service: Jun 20, 2024 Billing Provider: BARI MOORE MD Common Visit Codes: NOT BILLABLE BARI MOORE MD Jun 20, 2024 14:41
[2024-06-20] MEDS: HYDROcodone-ACET 5/325MG TAB PO PRN (16:45)
--- NOTE | 2024-06-20 19:53 | DVHPN2 ---
Progress Note - Dictate Date Seen: Jun 20, 2024 Has the PT tested + for MRSA If YES, has PT been informed?: No Medical Necessity Reason Pt with a Central, PICC or Fol: Yes The following are medically ne: Muhammad Catheter Reason for muhammad catheter: Strict I&O Subjective Patient seen and examined at bedside. Breathing on room air. Overnight events reviewed. vital signs Vital Sign Date Time Temp Pulse Resp B/P (MAP) Pulse Ox O2 Delivery O2 Flow Rate FiO2 06/20/24 16:44 98.3 104 19 128/62 (84) 99 98.3 06/20/24 08:00 Room Air* 0 21 Total Intake and Output 06/19/24 06/19/24 06/20/24 15:00 23:00 07:00 Intake Total 260 ml 360 ml 650 ml Output Total 250 ml 1100 ml 400 ml Balance 10 ml -740 ml 250 ml medications Current Medications Medications Dose Ordered Sig/Nora Route Start Time Stop Time Status Last Admin Dose Admin Vancomycin HCl 0 ml @ 0 mls/hr UD IV 05/18/24 07:45 Cancel Potassium Chloride 100 ml @ 50 mls/hr Q2H IV 05/22/24 12:30 05/22/24 16:29 Cancel Labetalol HCl 10 mg Q2HPRN PRN IV 06/02/24 07:45 06/15/24 01:14 10 MG Hydralazine HCl 10 mg Q4HPRN PRN IV 06/08/24 12:45 Ondansetron HCl 4 mg Q4HPRN PRN IV 06/09/24 13:30 06/20/24 18:40 4 MG Nicotine 1 patch DAILY TD 06/11/24 10:00 06/20/24 10:34 1 PATCH Fluticasone Propionate 50 mcg Q12HR EACHNOSTRI 06/11/24 22:00 06/20/24 10:00 50 MCG Fluconazole 100 ml @ 100 mls/hr 10,11 IV 06/16/24 10:00 Cancel Aspirin 81 mg DAILY PO 06/17/24 10:00 06/20/24 10:33 81 MG Enteral Nutritional Formula 240 ml TIDWM PO 06/16/24 18:00 06/20/24 18:00 240 ML Acetaminophen 650 mg Q6HP PRN PO 06/18/24 09:45 06/20/24 12:34 650 MG Famotidine 20 mg DAILY PO 06/20/24 10:00 06/20/24 10:35 20 MG Diagnostic Test (Pha) 1 strip ACHS 06/19/24 17:00 06/20/24 12:21 1 STRIP Insulin Human Regular ACHS SC 06/19/24 17:00 06/20/24 06:21 2 UNITS Dextrose 50 ml UD PRN IV 06/19/24 15:45 Ciprofloxacin 500 mg Q12HR PO 06/19/24 22:00 06/20/24 10:35 500 MG Acetaminophen/ Hydrocodone Bitart 1 tab Q6HPRN PRN PO 06/20/24 14:45 06/20/24 16:45 1 TAB Melatonin 5 mg HS PO 06/20/24 22:00 objective Gen.: Patient lying in bed in no apparent distress. Breathing on room air. Head: Normocephalic, atraumatic. Eyes: EOMI/PERRLA. Ears: Normal hearing. Normal anatomy. Neck/trachea: Trachea midline, supple. Nose: Normal external anatomy. Mouth: Moist mucous membranes. Chest: Decreased air entry bilaterally. No wheezing or rhonchi. Cardiovascular: Positive S1, positive S2. Regular rate and rhythm. Abdomen: Positive bowel sounds in all 4 quadrants. Soft, non-tender, non- distended. : Deferred. Rectal: Deferred. Skin: Warm, dry. Intact. Extremities: 2+ radial pulses bilaterally. No lower extremity edema. Neuro: Awake, alert, oriented x3. No gross motor or sensory deficits. Cranial nerves II through XII intact. Gait not assessed. laboratory and microbiology Laboratory Tests 06/19/24 04:40 Test 06/19/24 04:40 Range/Units Serum Glucose 146 H 74-106 mg/dL Assessment/Plan Impression: Acute hypoxic respiratory failure Abdominal pain due to recent robotic surgery hysterectomy and salpingo- oophorectomy History of breast cancer with bilateral mastectomies History of bowel surgery and ileostomy Anemia due to hemorrhage on hemodilution Shock Chronic pain syndrome Anemia Atrial fibrillation with RVR Bowel perforation with repeat exploratory laparotomy with ileostomy creation Events: Breathing on room air. No respiratory distress. Off TPN Advance diet as tolerated Incentive spirometry Continue abx - ciprofloxacin. Pain control Avoid oversedation . Head of bed elevation Aspiration precautions. Upper extremity Doppler showed nonocclusive thrombus in the right axillary vein and brachial vein Currently on enoxaparin 70 mg subcutaneous Brain MRI demonstrated subacute infarct involving the high convexity right frontal lobe with additional smaller focus over the right anterior mid convexity frontal lobe and punctate focus over the right mid convexity parietal lobe. Neurology recs appreciated. Patient is stable for discharge from the pulmonary standpoint. Plan for SNF placement. Disposition per hospitalist. Labs and imaging reviewed Rest of plan as outlined below. Plan: S/p extubation on 06/07 On room air - supplemental oxygen PRN Titrate to keep sats above 92% CXR, ABG reviewed. Pressors as necessary for hemodynamic support - currently off Titrate to keep mean arterial pressure greater than 65 mmHg. Continue antibiotics. F/u cultures. Monitor hemoglobin Transfuse if less than 7.0 grams/deciliter Monitor renal function due to Acute kidney injury. Monitor electrolytes. Supplement as necessary. Surgery recommendations appreciated. Off TPN - advance diet as tolerated Accucheks, ISS. GI prophylaxis - Pantoprazole 40 DVT prophylaxis- on enoxaparin 70 SC Prognosis: Poor given multiple comorbidities. Rest of plan per hospitalist and other consultants. Thank you Dr Reid for allowing me to participate in this patient's care. Further recommendations will depend on patient's clinical course. Please do not hesitate to contact me if you have any questions or concerns. This medical document was created using an electronic medical record system with [employer] dictation system. Although this document has been carefully reviewed, there may still be some phonetic and typographical errors. These areas are purely typographical due to imperfections of the software programs, and do not reflect any compromise in the patient's medical care. Dietary Evaluation Review Comments: 1) Advance pt diet when medically feasible to a 2gmNa diet modified per [employer] recommendations 2) Continue current plan of care Expected Outcomes/Goals: 1) Pt diet to advance 2) F/U in 2-3 days Plan discussed with: Patient, Other (YASH Vides) RG LEONE MD Jun 20, 2024 19:53
[2024-06-20] MEDS: MELATONIN 5 MG TAB PO SCH (21:32)
[2024-06-20] MEDS ORDERED: APIXABAN 5 MG TAB PO SCH (22:00)
[2024-06-21 05:25] VITALS: BP 116/49; PULSE 105; RESP 18; TEMP 97.8; O2SAT 98
[2024-06-21 08:00] VITALS: PULSE 99; RESP 17; O2SAT 99
[2024-06-21 09:00] VITALS: BP 102/54; PULSE 99; RESP 17; TEMP 97.4; O2SAT 99
--- NOTE | 2024-06-21 10:41 | DVHDS2 ---
Discharge Summary Date of Admission May 07, 2024 at 16:35 Date of Discharge: Jun 21, 2024 Labs/Diagnostic Data: Laboratory Results Test 06/20/24 12:18 06/20/24 10:56 06/19/24 04:40 06/18/24 04:58 POC Glucose 174 mg/dl (70-106) Urine Color Yellow (Yellow) Urine Clarity Turbid (Clear) Urine pH 5.0 (5.0-9.0) Urine Specific Mentor 1.023 (1.001-1.035) Urine Protein 1+ (Negative) Urine Ketones Negative (Negative) Urine Blood Trace /uL (Negative) Urine Nitrite Negative (Negative) Urine Bilirubin Negative (Negative) Urine Urobilinogen Normal mg/dL (Negative) Urine Leukocyte Esterase 2+ /uL (Negative) Urine RBC 7 /hpf (0 - 4) Urine WBC 63 /hpf (0 - 5) Urine Squamous Epithelial Cells Few /hpf (<5) Urine Bacteria Few /hpf (None Seen) Urine Hyaline Casts Few /lpf (0 - 2) Urine Mucus Few (None Seen) Urine Glucose Normal mg/dL (Normal) White Blood Count 12.6 10^3/uL (4.4-10.8) Red Blood Count 2.96 10^6/uL (4.0-5.20) Hemoglobin 8.9 g/dL (12.2-16.2) Hematocrit 26.5 % (36.0-46.0) Mean Corpuscular Volume 89.5 fL (80.0-100.0) Mean Corpuscular Hemoglobin 30.2 pg (28.0-32.0) Mean Corpuscular Hemoglobin Concent 33.8 g/dL (32.0-36.0) Red Cell Distribution Width 15.7 % (11.8-14.3) Platelet Count 344 10^3/uL (140-450) Mean Platelet Volume 7.9 fL (6.9-10.8) Neutrophils (%) (Auto) 82.4 % (37.0-80.0) Lymphocytes (%) (Auto) 9.0 % (10.0-50.0) Monocytes (%) (Auto) 8.0 % (0.0-12.0) Eosinophils (%) (Auto) 0.3 % (0.0-7.0) Basophils (%) (Auto) 0.3 % (0.0-2.0) Neutrophils # (Auto) 10.4 10 ^3/uL (1.6-8.6) Lymphocytes # (Auto) 1.1 10 ^3/uL (0.4-5.4) Monocytes # (Auto) 1.0 10 ^3/uL (0-1.3) Eosinophils # (Auto) 0 10 ^3/uL (0-0.8) Basophils # (Auto) 0 10 ^3/uL (0-0.2) Nucleated Red Blood Cells 0.0 % Sodium Level 133 mmol/L (136-145) Potassium Level 4.1 mmol/L (3.5-5.1) Chloride Level 102 mmol/L (98-107) Carbon Dioxide Level 21 mmol/L (20-31) Anion Gap 10 (5-15) Blood Urea Nitrogen 35 mg/dL (9-23) Creatinine 0.79 mg/dL (0.550-1.02) Glomerular Filtration Rate Calc 81 mL/min (>90) BUN/Creatinine Ratio 44.3 (10.0-20.0) Serum Glucose 146 mg/dL (74-106) Calcium Level 10.5 mg/dL (8.7-10.4) Magnesium Level 2.2 mg/dL (1.6-2.6) Total Bilirubin 1.3 mg/dL (0.2-1.0) Aspartate Amino Transferase (AST) 17 U/L (13-40) Alanine Aminotransferase (ALT) 21 U/L (7-40) Alkaline Phosphatase 166 U/L (46-116) Total Protein 7.9 g/dL (5.7-8.2) Albumin 3.9 g/dL (3.2-4.8) Phosphorus Level 4.9 mg/dL (2.4-5.1) Test 06/16/24 04:26 06/14/24 03:24 06/13/24 03:59 06/07/24 15:07 Differential Total Cells Counted 100.0 (100) Neutrophils % (Manual) 79 (37.0-80.0) Band Neutrophils % (Manual) 0 Lymphocytes % (Manual) 11 (10.0-50.0) Monocytes % (Manual) 9 (0-12) Eosinophils % (Manual) 1 (0-7) Basophils % (Manual) 0 (0.0-2.0) Metamyelocytes % (manual) 0 Myelocytes % (Manual) 0 Promyelocytes % (Manual) 0 Blast Cells % (Manual) 0 Reactive Lymphocytes 0 Platelet Estimate Adequate Triglycerides Level 143 mg/dL (< 150) Large Platelets Few Blood Gas Specimen Type Arterial Blood Gas Sample Site Left radial Blood Gas Patient Temperature 37.0 Arterial Blood Date Drawn [id number] Arterial Blood pH 7.494 (7.350-7.450) Arterial Blood Partial Pressure CO2 30.9 mmHg (32.0-45.0) Arterial Blood Partial Pressure O2 139.1 mmHg (83.0-108.0) Arterial Blood HCO3 23.2 mmol/L (21.0-28.0) Arterial Blood Oxygen Saturation 98.6 % (94.0-98.0) Arterial Blood Base Excess 0.5 mmol/L (-2.0-3.0) Arterial Blood Oxyhemoglobin 98.2 % (94.0-98.0) Arterial Blood Carboxyhemoglobin 0.3 % (0.5-1.5) Arterial Blood Methemoglobin 0.1 % (0.0-1.5) Yuval Test Modified Blood Gas Total Hemoglobin 10.20 g/dL (12.0-16.0) Blood Gas Modality Vent - cpap Blood Gas Spontaneous Rate 28 FiO2 % 30.0 Blood Gas Spontaneous Tidal Volume 504 Blood Gas Pressure Support 8 Blood Gas PEEP or CPAP 5.0 Test 06/07/24 08:45 06/07/24 06:47 06/06/24 03:00 06/04/24 03:00 Miscellaneous Referred Test ( Tmp Sent to [facility] Blood Gas Set Respiration Rate 18.0 Blood Gas Tidal Volume 450.0 Stomatocytes Few Magnesium Lvl (Mg Sulfate Therapy) 2.29 mg/dL (4.0-7.1) Test 06/02/24 14:12 05/31/24 07:00 05/27/24 08:07 05/25/24 03:15 Vancomycin Level Trough 14.9 ug/mL (5-10) Blood Gas Inspiratory Pressure 16.0 Bl Gas Inspiratory/Expiratory Ratio 1:2.2 Specimen Drawn By donald william Blood Gas Critical Value Read Back yes Blood Gas Notified Whom renita grove Blood Gas Notified Time [id number] Blood Gas Notified By ghyde rt Prothrombin Time 11.4 sec (9.3-11.8) Prothrombin Time INR 1.08 (0.9-1.15) Activated Partial Thromboplast Time 31.1 SEC (24.5-34.5) Test 05/20/24 03:23 05/18/24 03:30 05/16/24 22:55 05/12/24 11:19 Smudge Cells 2 /100 WBC Clumped Platelets Few Poikilocytosis (manual) Slight Anisocytosis (manual) Slight Magali Cells Few Lactic Acid Level 3.5 mmol/L (0.4-2.0) Cholesterol Level 134 mg/dL (< 200) LDL Cholesterol 75 mg/dL (< 100) HDL Cholesterol 23 mg/dL (40-59) Thyroid Stimulating Hormone (TSH) 2.01 uIU/mL (0.55-4.78) Test 05/08/24 21:08 Red Blood Cell Morphology Normal Other Laboratory Tests 06/19/24 04:40 Brief Hx & Hospital Course: 68-year-old female who was admitted initially 45 days ago for an elective hysterectomy which was complicated by an acute CVA resulting in left arm weakness and was found to have 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 Following that surgery and the acute CVA she was found to have atrial fibrillation with rapid ventricular response. She also had a complication of of the surgery with a perforated bowel at that required surgery and then she required a 2nd surgery for a nonhealing weaned and intra-abdominal infection and therefore she had an incision and drainage of the abscess by Dr. Lake. She was in the ICU intubated on mechanical ventilation for a long time complicated by right upper extremity DVT, AFib with RVR, controlled with amiodarone drip and beta blockers She was eventually extubated and became more alert and oriented. She was on TPN for a long time until she was able to have oral intake. She was started on tube feeding eventually and then the NG tube was removed and then she was starting to have p.o. intake once she was not able to swallow She was downgraded from the ICU and TPN has been discontinued and she has been advancing her diet slowly Her left arm remained weak but recently in the last few days she is able to move her fingers somewhat She is able to move her left foot also somewhat but not to the extent of any significant strengths Physical therapy had been seen her but she has been only getting passive exercises After surgery she had a dehiscent wound in the middle of the abdomen, she had a ileostomy on the right side She had 2 EVARISTO drains on each side of the abdomen The left EVARISTO drain has been removed She still has the right EVARISTO drain She still has significant purulent discharge at this point from the wound and a right EVARISTO Dr. Lake seen the patient several times and he has cleared her for discharge for now Her IV antibiotics were finished but recently she has been only on Cipro IV The patient will need rehab She will be discharged to SNF for rehab We will switch her Cipro to p.o. for another week For her atrial fibrillation she will be on Eliquis She had some nosebleed and therefore the Eliquis dose will be decreased to 2.5 mg twice a day Continue aspirin 81 mg a day Final diagnoses: Robotic surgery hysterectomy and salpingo-oophorectomy complicated by Acute CVA Acute CVA w LUE hemiparesis Bowel perforation with repeat exploratory laparotomy with ileostomy creation History of breast cancer with bilateral mastectomies Afib RVR Acute hypoxic respiratory failure Mechanical intubation Exploratory laparotomy, drainage of intraabdominal abscess, thorough peritoneal lavage with reinforcement of the anastomotic location of the previous anastomosis as well as a diverting loop ileostomy on 05/24/24 Anemia Right upper extremity DVT Condition at Discharge: Stable Final Diagnosis/Problems List Robotic surgery hysterectomy and salpingo-oophorectomy complicated by Acute CVA Acute CVA w LUE hemiparesis Bowel perforation with repeat exploratory laparotomy with ileostomy creation History of breast cancer with bilateral mastectomies Afib RVR Acute hypoxic respiratory failure Mechanical intubation Exploratory laparotomy, drainage of intraabdominal abscess, thorough peritoneal lavage with reinforcement of the anastomotic location of the previous anastomosis as well as a diverting loop ileostomy on 05/24/24 Anemia Right upper extremity DVT Discharge Disposition: [facility] Discharge Will this Physician continue t: No Discharge Instruct/Medications Diet: See Comment Activity: No Restrictions, As Tolerated Follow Up/Referral: SNF MD Medications: See Med Rec Discharge Statement: "Patient was advised to return to the ER or call 911 if any headaches, dizziness, shortness of breath, chest pain, abdominal pain, bleeding, fevers, or worsening of medical condition. Patient was counseled about treatment plan, medications, possible side effects, patientverbalized understanding. All questions were answered to the best of my ability. This discharge took greater then 30 minutes in planning, reviewing documentation, counseling the patient, and discussing with other team members." ASSESSMENT ASSESSMENT Assessment Robotic surgery hysterectomy and salpingo-oophorectomy complicated by Acute CVA Acute CVA w LUE hemiparesis Bowel perforation with repeat exploratory laparotomy with ileostomy creation History of breast cancer with bilateral mastectomies Afib RVR Acute hypoxic respiratory failure Mechanical intubation Exploratory laparotomy, drainage of intraabdominal abscess, thorough peritoneal lavage with reinforcement of the anastomotic location of the previous anastomosis as well as a diverting loop ileostomy on 05/24/24 Anemia Right upper extremity DVT Date of Service: Jun 21, 2024 Billing Provider: BARI MOORE MD Common Visit Codes: NOT BILLABLE BARI MOORE MD Jun 21, 2024 10:41
[2024-06-21 12:01] VITALS: BP 125/39; PULSE 76; RESP 17; TEMP 97.4
[2024-06-21 13:00] VITALS: BP 101/47; PULSE 90; RESP 19; TEMP 97.8; O2SAT 100
--- NOTE | 2024-06-21 19:56 | DVHPN2 ---
Consult Progress Note Date Seen: Jun 20, 2024 Subjective Patient reports: Feels better (no fever or chills, no diarrhea or rash) Objective vital signs Vital Sign Date Time Temp Pulse Resp B/P (MAP) Pulse Ox O2 Delivery O2 Flow Rate FiO2 06/21/24 13:00 97.8 90 19 101/47 (65) 100 97.8 06/21/24 08:00 Room Air* 0 21 Total Intake and Output 06/20/24 06/20/24 06/21/24 15:00 23:00 07:00 Intake Total 600 ml 500 ml Output Total 350 ml Balance 250 ml 500 ml medications Current Medications Medications Dose Ordered Sig/Nora Route Start Time Stop Time Status Last Admin Dose Admin Vancomycin HCl 0 ml @ 0 mls/hr UD IV 05/18/24 07:45 Cancel Potassium Chloride 100 ml @ 50 mls/hr Q2H IV 05/22/24 12:30 05/22/24 16:29 Cancel Fluconazole 100 ml @ 100 mls/hr 10,11 IV 06/16/24 10:00 Cancel PHYSICAL EXAM: - GENERAL: Alert and oriented x 3. No acute distress. Well-nourished. - EYES: EOMI. Anicteric. - HENT: Moist mucous membranes. No scleral icterus. No cervical lymphadenopathy. - LUNGS: Clear to auscultation bilaterally. No accessory muscle use. - CARDIOVASCULAR: Regular rate and rhythm. No murmur. No JVD - ABDOMEN: Soft, non-tender and non-distended. No palpable masses. - EXTREMITIES: No edema. Non-tender.?SKIN: No rashes or lesions. Warm. - NEUROLOGIC: No focal neurological deficits. CN II-XII grossly intact, but not individually tested. - PSYCHIATRIC: Cooperative. Appropriate mood and affect. Examination: GENERAL:Normal laboratory and microbiology Laboratory Tests 06/19/24 04:40 Test 06/19/24 04:40 Range/Units Serum Glucose 146 H 74-106 mg/dL Problem List/Assessment/Plan Problem List/Assessment/Plan Assessment and Plan: ID Problem List: 1. Small bowel obstruction with perforation 2. Septic shock 3. Stroke, right MCA territory 4. Hypertension 5. Anemia 6. Breast cancer 7. Bilateral mastectomy 8. Post-surgical complications (including ileostomy creation) 9. Fungal infection (yeast not Shawanda albicans) 10. Strep Viridans Group B infection Assessment: This is a 68-year-old female, with a significant past medical history of anemia, hypertension, breast cancer status post bilateral mastectomy, and a 50 pack-year smoking history (now quit), who was initially admitted for a robotic hysterectomy with bilateral salpingectomy, removal of a right ovarian mass, cystocele repair with urethral sling. Postoperatively, she developed hypertension and nausea, necessitating overnight admission. Post-admission, she endured a cerebrovascular accident primarily impacting the right MCA territory and contributing to left-sided weakness. Subsequent evaluations included MRI and CT head scans that confirmed multiple acute and subacute infarcts. Later complications included progression to an acute small bowel obstruction with perforation, leading to emergent exploratory laparotomy and subsequent ileostomy creation. Cultures from the surgical sites revealed a non-Shawanda albicans yeast and Strep Viridans Group B infection. The patient continues to require ICU support, primarily due to ongoing septic shock and the need for ventilatory assistance. Patient remains intubated with vasopressors being weaned off. Recent WBC count was 16.9 and hemoglobin levels have fluctuated, dropping as low as 5.9. She has been transitioned to a multi-antibiotic regimen including meropenem, vancomycin, and TPN for nutritional support. 06/04: hemoglobin of 6.9, suspect ongoing blood loss. Preliminary blood cultures are no growth for 48 hours as well as wound and urine cultures with no growth 06/05: hemoglobin of 8.4 after blood transfusion. Repeat cultures of the abdomen is showing no organisms 06/06: Ct pelvis abdomen shows fairly stable appearing radio dense contrast in the central mid abdomen with adjacent surgical sutures. Small bowel ascites. drainage catheter terminating in the pelvis and upper abdomen, stable appearing intraabdominal acities. extensive post-surgical changes that ate unchanged. a small to moderate right mid size plural effusion. Chest x-ray was done and shows no focal consolidation in the lungs 06/07: Chest x-ray done before the excavation, showing pulmonary disease 06/08: Abdominal drain fluids and patients surgical site has been cultured. Removal of catheter tip from yesterday shows staphylococcus and micrococcus , likely skin florac contamination . White count of 12.4 today and will continue to monitor 06/12: has been having persistent fevers for the last 48 hours , chest x-ray appears clear , leukocytosis , fungus was growing from operative cultures , filamentous. Raising possibilities of fussarium, aspergillus , penicillium , although these are less likely than shawanda. suspect that patient is having a rise in fevers due to untreated bacteria . 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 vascular surgery was recommended for intervention of left ICA. Put back on NPL status , remains lethargic aphasic , no speaking , no weakness in upper extremities or lower , arousable but lethargic. started on statin continued on anticoagulation. MRI of brain shows subacute involving the high convexity right frontal lobe with additional smaller focus over the right anterior mid convexity focus over the right mid convex 70% parieteal lobe 06/17: Patient has been on IV micafungen and fruconazol since 05/23 , is tolerating feeds through mouth without any difficulty 06/18: Blood cultures are no growth to date and urine cultures have no growth. unclear why patient had fever, could be related to mild aspiration Plan: - Switch Zosyn to ciprofloxcine -continue antibiotics for another 7 days and stop if there are no ongoing signs of infection - Recommend an EKG in 5 days Plan discussed with: Patient Dietary Evaluation Review Comments: 1) Advance pt diet when medically feasible to a 2gmNa diet modified per W[employer]ING [employer]CTOR recommendations 2) Continue current plan of care Expected Outcomes/Goals: 1) Pt diet to advance 2) F/U in 2-3 days MEY VICTORIA MD Jun 21, 2024 19:56
--- NOTE | 2024-06-21 22:15 | DVHPN2 ---
Progress Note - Dictate Date Seen: Jun 21, 2024 Has the PT tested + for MRSA If YES, has PT been informed?: No Medical Necessity Reason Pt with a Central, PICC or Fol: No The following are medically ne: Muhammad Catheter Reason for muhammad catheter: Strict I&O Subjective Patient seen and examined at bedside. Breathing on room air. Overnight events reviewed. vital signs Vital Sign Date Time Temp Pulse Resp B/P (MAP) Pulse Ox O2 Delivery O2 Flow Rate FiO2 06/21/24 13:00 97.8 90 19 101/47 (65) 100 97.8 06/21/24 08:00 Room Air* 0 21 Total Intake and Output 06/20/24 06/20/24 06/21/24 15:00 23:00 07:00 Intake Total 600 ml 500 ml Output Total 350 ml Balance 250 ml 500 ml medications Current Medications Medications Dose Ordered Sig/Nora Route Start Time Stop Time Status Last Admin Dose Admin Vancomycin HCl 0 ml @ 0 mls/hr UD IV 05/18/24 07:45 Cancel Potassium Chloride 100 ml @ 50 mls/hr Q2H IV 05/22/24 12:30 05/22/24 16:29 Cancel Fluconazole 100 ml @ 100 mls/hr 10,11 IV 06/16/24 10:00 Cancel objective Gen.: Patient lying in bed in no apparent distress. Breathing on room air. Head: Normocephalic, atraumatic. Eyes: EOMI/PERRLA. Ears: Normal hearing. Normal anatomy. Neck/trachea: Trachea midline, supple. Nose: Normal external anatomy. Mouth: Moist mucous membranes. Chest: Decreased air entry bilaterally. No wheezing or rhonchi. Cardiovascular: Positive S1, positive S2. Regular rate and rhythm. Abdomen: Positive bowel sounds in all 4 quadrants. Soft, non-tender, non- distended. : Deferred. Rectal: Deferred. Skin: Warm, dry. Intact. Extremities: 2+ radial pulses bilaterally. No lower extremity edema. Neuro: Awake, alert, oriented x3. No gross motor or sensory deficits. Cranial nerves II through XII intact. Gait not assessed. laboratory and microbiology Laboratory Tests 06/19/24 04:40 Test 06/19/24 04:40 Range/Units Serum Glucose 146 H 74-106 mg/dL Assessment/Plan Impression: Acute hypoxic respiratory failure Abdominal pain due to recent robotic surgery hysterectomy and salpingo- oophorectomy History of breast cancer with bilateral mastectomies History of bowel surgery and ileostomy Anemia due to hemorrhage on hemodilution Shock Chronic pain syndrome Anemia Atrial fibrillation with RVR Bowel perforation with repeat exploratory laparotomy with ileostomy creation Events: Breathing on room air. No respiratory distress. Off TPN Advance diet as tolerated Surgery recommendations appreciated. Incentive spirometry Antibiotics per ID. Pain control Avoid oversedation Head of bed elevation Aspiration precautions. [facility] Upper extremity Doppler showed nonocclusive thrombus in the right axillary vein and brachial vein On enoxaparin 70 mg subcutaneous Brain MRI demonstrated subacute infarct involving the high convexity right frontal lobe with additional smaller focus over the right anterior mid convexity frontal lobe and punctate focus over the right mid convexity parietal lobe. Neurology recs appreciated. Patient is stable for discharge from the pulmonary standpoint. Plan for SNF placement. Disposition per hospitalist. Labs and imaging reviewed Rest of plan as outlined below. Plan: S/p extubation on 06/07 On room air - supplemental oxygen PRN Titrate to keep sats above 92% CXR, ABG reviewed. Pressors as necessary for hemodynamic support - currently off Titrate to keep mean arterial pressure greater than 65 mmHg. Continue antibiotics. F/u cultures. Monitor hemoglobin Transfuse if less than 7.0 grams/deciliter Monitor renal function due to Acute kidney injury. Monitor electrolytes. Supplement as necessary. Surgery recommendations appreciated. Off TPN - advance diet as tolerated Accucheks, ISS. GI prophylaxis - Pantoprazole 40 DVT prophylaxis- on enoxaparin 70 SC Prognosis: Poor given multiple comorbidities. Rest of plan per hospitalist and other consultants. Thank you Dr Reid for allowing me to participate in this patient's care. Further recommendations will depend on patient's clinical course. Please do not hesitate to contact me if you have any questions or concerns. This medical document was created using an electronic medical record system with [employer] dictation system. Although this document has been carefully reviewed, there may still be some phonetic and typographical errors. These areas are purely typographical due to imperfections of the software programs, and do not reflect any compromise in the patient's medical care. Dietary Evaluation Review Comments: 1) Advance pt diet when medically feasible to a 2gmNa diet modified per MAMMOGRAPHY TECH recommendations 2) Continue current plan of care Expected Outcomes/Goals: 1) Pt diet to advance 2) F/U in 2-3 days Plan discussed with: Patient, Other (YASH Robledo) RG LEONE MD Jun 21, 2024 22:14
== END 2024-06-21 14:56 | DRG 742 ==
LOC: SUR 10:48 → OVERFLOW 16:35 → EAST 20:38 → ICU WEST 05-15 22:48 → DOU IN ICU 06-14 23:33 → TELE-WESTW 06-19 09:15
PROVIDERS: ADMIT Internal Medicine Geriatric Medicine; ATTEND Internal Medicine Geriatric Medicine
PROC: 0UB24ZZ Excision of Bilateral Ovaries, Percutaneous Endoscopic Approach (ICD-10-PCS; 2024-05-07)
PROC: 0UB74ZZ Excision of Bilateral Fallopian Tubes, Percutaneous Endoscopic Approach (ICD-10-PCS; 2024-05-07)
PROC: 0UBG0ZZ Excision of Vagina, Open Approach (ICD-10-PCS; 2024-05-07)
PROC: 0TSD0ZZ Reposition Urethra, Open Approach (ICD-10-PCS; 2024-05-07)
PROC: 0UT94ZL Resection of Uterus, Supracervical, Percutaneous Endoscopic Approach (ICD-10-PCS; 2024-05-07)
PROC: 8E0W4CZ Robotic Assisted Procedure of Trunk Region, Percutaneous Endoscopic Approach (ICD-10-PCS; 2024-05-07)
PROC: 0TJB8ZZ Inspection of Bladder, Via Natural or Artificial Opening Endoscopic (ICD-10-PCS; 2024-05-07)
PROC: 30233N1 Transfusion of Nonautologous Red Blood Cells into Peripheral Vein, Percutaneous Approach (ICD-10-PCS; 2024-05-10)
PROC: 0DT80ZZ Resection of Small Intestine, Open Approach (ICD-10-PCS; 2024-05-16)
PROC: 0BH17EZ Insertion of Endotracheal Airway into Trachea, Via Natural or Artificial Opening (ICD-10-PCS; 2024-05-16)
PROC: 5A1955Z Respiratory Ventilation, Greater than 96 Consecutive Hours (ICD-10-PCS; 2024-05-16)
PROC: 30233K1 Transfusion of Nonautologous Frozen Plasma into Peripheral Vein, Percutaneous Approach (ICD-10-PCS; 2024-05-16)
PROC: 0DNW0ZZ Release Peritoneum, Open Approach (ICD-10-PCS; 2024-05-16)
PROC: 0DN80ZZ Release Small Intestine, Open Approach (ICD-10-PCS; principal; 2024-05-16 11:30)
PROC: 30233R1 Transfusion of Nonautologous Platelets into Peripheral Vein, Percutaneous Approach (ICD-10-PCS; 2024-05-17)
PROC: 0W9G0ZZ Drainage of Peritoneal Cavity, Open Approach (ICD-10-PCS; 2024-05-24)
PROC: 0D1B0Z4 Bypass Ileum to Cutaneous, Open Approach (ICD-10-PCS; 2024-05-24)
PROC: 02HV33Z Insertion of Infusion Device into Superior Vena Cava, Percutaneous Approach (ICD-10-PCS; 2024-06-05)
PROC: B548ZZA Ultrasonography of Superior Vena Cava, Guidance (ICD-10-PCS; 2024-06-05)
DX: N81.4 Uterovaginal prolapse, unspecified (principal); A41.9 Sepsis, unspecified organism; G93.41 Metabolic encephalopathy; R65.21 Severe sepsis with septic shock; J96.01 Acute respiratory failure with hypoxia; K65.1 Peritoneal abscess; I63.9 Cerebral infarction, unspecified; K65.9 Peritonitis, unspecified; K56.50 Intestinal adhesions [bands], unspecified as to partial versus complete obstruction; G81.94 Hemiplegia, unspecified affecting left nondominant side; E46 Unspecified protein-calorie malnutrition; I48.92 Unspecified atrial flutter; E87.4 Mixed disorder of acid-base balance; S36.408A Unspecified injury of other part of small intestine, initial encounter; I82.611 Acute embolism and thrombosis of superficial veins of right upper extremity; D62 Acute posthemorrhagic anemia; I82.621 Acute embolism and thrombosis of deep veins of right upper extremity; I82.A11 Acute embolism and thrombosis of right axillary vein; N13.30 Unspecified hydronephrosis; R18.8 Other ascites; R47.01 Aphasia; I95.9 Hypotension, unspecified; N89.8 Other specified noninflammatory disorders of vagina; E87.6 Hypokalemia; E83.42 Hypomagnesemia; G89.4 Chronic pain syndrome; I48.91 Unspecified atrial fibrillation; R62.7 Adult failure to thrive; I65.23 Occlusion and stenosis of bilateral carotid arteries; H02.402 Unspecified ptosis of left eyelid; I10 Essential (primary) hypertension; J98.2 Interstitial emphysema; R04.0 Epistaxis; K21.9 Gastro-esophageal reflux disease without esophagitis; F17.200 Nicotine dependence, unspecified, uncomplicated; I34.0 Nonrheumatic mitral (valve) insufficiency; K52.9 Noninfective gastroenteritis and colitis, unspecified; I70.8 Atherosclerosis of other arteries; Z85.3 Personal history of malignant neoplasm of breast; Z90.13 Acquired absence of bilateral breasts and nipples; Z90.711 Acquired absence of uterus with remaining cervical stump; Z85.038 Personal history of other malignant neoplasm of large intestine; Z83.3 Family history of diabetes mellitus; Z80.42 Family history of malignant neoplasm of prostate; Z80.8 Family history of malignant neoplasm of other organs or systems; Z80.1 Family history of malignant neoplasm of trachea, bronchus and lung; Z79.899 Other long term (current) drug therapy; Z68.21 Body mass index [BMI] 21.0-21.9, adult; Z79.82 Long term (current) use of aspirin; Z79.02 Long term (current) use of antithrombotics/antiplatelets; Z79.01 Long term (current) use of anticoagulants; X58.XXXA Exposure to other specified factors, initial encounter; Y93.9 Activity, unspecified; Y92.89 Other specified places as the place of occurrence of the external cause; Y99.8 Other external cause status
CPT/HCPCS: 36415; 36600; 70450; 70496; 70551; 71045; 74176; 74177; 74178; 76705; 80048; 80053; 80061; 80202; 81001; 82565; 82805; 82962; 83605; 83735; 84100; 84443; 84478; 85007; 85014; 85018; 85025; 85027; 85610; 85730; 86850; 86900; 86901; 86920; 87040; 87070; 87075; 87077; 87081; 87086; 87088; 87186; 87205; 92507; 92610; 93005; 93306; 93886; 93970; 94002; 94003; 94640; 97110; 97116; 97163; 97530; C1771; G0378; J0131; J0171; J0690; J1100; J1450; J1642; J1815; J1885; J2001; J2185; J2248; J2405; J2470; J2543; J2704; J3465; J3480; J3490; J7060; J7131; P9047

== ENCOUNTER 2024-06-24 04:57 | Inpatient (IN) | payer OTHER ==
[~2024-06-24] VITALS: Ht 154.9 cm; Wt 54.6 kg
[~2024-06-24 04:57] MED LIST changes: +HYDR-4798 PO; +ZOFR4T PO
--- NOTE | 2024-06-24 05:22 | ED.PDOC ---
GI ASSESSMENT HPI Comments 68-year-old female who came to ER via EMS due to abdominal pain. Patient was just discharged 3 days ago was diagnosed with 1, Robotic surgery hysterectomy and salpingo-oophorectomy complicated by Acute CVA, 2. Acute CVA w LUE hemiparesis, . Bowel perforation with repeat exploratory laparotomy with ileostomy creation, 4. History of breast cancer with bilateral mastectomies, 5. Afib RVR, 6. Acute hypoxic respiratory failure, 7. Mechanical intubation, 8. Exploratory laparotomy, drainage of intraabdominal abscess, thorough peritoneal lavage with reinforcement of the anastomotic location of the previous anastomosis as well as a diverting loop ileostomy on 05/24/24, 9. Anemia, 10. Right upper extremity DVT Patient was discharged improve to a retirement facility. Patient having episodes of abdominal pain, with nausea and vomiting. Patient was seen at [facility] yesterday, was given Zofran for the abdominal pain and was discharged back to the SNF. However recurrence of abdominal pain nausea and vomiting prompted patient to be brought to this ER. Chief Complaint: Abdominal Pain Time Seen by MD: 07:44 Reviewed Notes: Nurses Notes, Medications, Allergies Allergies: Coded Allergies: Lorazepam (Verified Allergy, Intermediate, EXTREME AGITATION AND CONFUSION, 06/10/24) Sulfa Antibiotics (Unverified Allergy, Unknown, 05/04/24) Statins (Unverified Adverse Reaction, Intermediate, muscle aches, 05/04/24) Home Meds Reported Medications Ondansetron Odt 4MG Tab (ZOFRAN PO) 4 Mg Tb, 4 MG PO TIDPRN, TAB ODT TAB-DISSOLVE IN MOUTH, THEN SWALLOW 06/20/24 Hydrocodone-Acetaminophen (Hydrocodone Bitartrate/AC 10-325 mg) 1 Tab Tab, 1 TAB PO TID, TAB 06/20/24 Sertraline Hcl (Zoloft) 50 Mg Tab, 50 MG PO DAILY, TAB 05/04/24 Sertraline Hcl (Zoloft) 25 Mg Tab, 1 TAB PO DAILY, #30 TAB 1 Refill 05/04/24 Ciprofloxacin Hcl (Cipro) 500 Mg Tab, 500 MG PO BID, TAB 05/04/24 Tamoxifen Citrate (Tamoxifen Citrate) 20 Mg Tab, 20 MG PO DAILY, TAB 05/04/24 Constitutional: reports: weakness; denies: chills, diaphoresis, fatigue, fever, malaise, sweats, others EENTM: denies: blurred vision, double vision, ear bleeding, ear discharge, ear drainage, ear pain, ear ringing, eye pain, eye redness, hearing loss, mouth pain, mouth swelling, nasal discharge, nose bleeding, nose congestion, nose pain, photophobia, tearing, throat pain, throat swelling, voice changes, others Respiratory: denies: cough, hemoptysis, orthopnea, SOB at rest, shortness of breath, SOB with excertion, stridor, wheezing, others Cardiovascular: denies: chest pain, dizzy spells, diaphoresis, Dyspnea on exertion, edema, irregular heart beat, left arm pain, lightheadedness, palpitations, PND, syncope, others Gastrointestinal: reports: abdominal pain, nausea, vomiting; denies: abdomen distended, blood streaked bowels, constipated, diarrhea, dysphagia, difficulty swallowing, hematemesis, melena, poor appetite, poor fluid intake, rectal bleeding, rectal pain, others Genitourinary: denies: abnormal vagina bleeding, burning, dyspareunia, dysuria, flank pain, frequency, hematuria, incontinence, pain, , vagina discharge, urgency, others Neurological: denies: dizziness, fainting, headache, left sided numbness, left sided weakness, numbness, paresthesia, pre-existing deficit, right sided numbness, right sided weakness, seizure, speech problems, tingling, tremors, weakness, others Musculoskeletal: denies: back pain, gout, joint pain, joint swelling, muscle pain, muscle stiffness, neck pain, others Integumetry: denies: bruises, change in color, change in hair/nails, dryness, laceration, lesions, lumps, rash, wounds, others Allergic/Immunocompromised: denies: Difficulty Healing, Frequent Infections, Hives, Itching, others Hematologic/Lymphatic: denies: anemia, blood clots, easy bleeding, easy bruising, swollen glands, others Endocrine: denies: excessive hunger, excessive sweating, excessive thirst, excessive urination, flushing, intolerance to cold, intolerance to heat, unexplained weight gain, unexplained weight loss, others Psychiatric: denies: anxiety, bipolar disorder, depression, hopeless, panic disorder, schizophrenia, sleepless, suicidal, others Physical Exam General Appearance: Moderate Distress, Normal HEENT: Normal ENT Inspection, Pharynx Normal, TMs Normal Neck: Full Range of Motion, Non-Tender, Normal, Normal Inspection Respiratory: Chest Non-Tender, Lungs Clear, No Accessory Muscle Use, No Respiratory Distress, Normal Breath Sounds Cardiovascular: No Edema, No JVD, No Murmur, No Gallop, Normal Peripheral Pulses, Regular Rate/Rhythm Breast Exam: Deferred Gastrointestinal: No Organomegaly, Non Tender, No Pulsatile Mass, Normal Bowel Sounds, Soft, Other (Midline abdominal scar, ileostomy bag) Genitalia: Deferred Pelvic: Deferred Rectal: Deferred Extremities: No calf tenderness, Normal capillary refill, Normal inspection, Normal range of motion, Non-tender, No pedal edema Musculoskeletal : Apperance: Normal Neurologic: Alert, 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 Was a procedure done?: No GI differential Dx Differential Diagnosis: Bowel Obstruction, Diverticular disease, Esophagitis, Gastritis/PUD, Gastroenteritis, Inflammatory BD, Ischemic Bowel, Pancreatitis, UTI, Urolithiasis, Other (Postop complications) X-Ray, Labs, Meds, VS Vital Signs Date Time Temp Pulse Resp B/P (MAP) Pulse Ox O2 Delivery O2 Flow Rate FiO2 06/24/24 09:24 95 13 105/54 06/24/24 08:54 83 15 124/61 06/24/24 08:38 77 06/24/24 06:07 88 15 100 Room Air* 0 21 06/24/24 05:30 97.4 88 16 92/48 (63) 100 97.4 06/24/24 05:06 92 06/24/24 04:57 97.6 92 16 108/57 (74) 98 Lab Test 06/24/24 06:01 Range/Units White Blood Count 8.9 # 4.4-10.8 10^3/uL Red Blood Count 3.09 L 4.0-5.20 10^6/uL Hemoglobin 9.5 L 12.2-16.2 g/dL Hematocrit 28.1 L 36.0-46.0 % Mean Corpuscular Volume 90.9 80.0-100.0 fL Mean Corpuscular Hemoglobin 30.7 28.0-32.0 pg Mean Corpuscular Hemoglobin Concent 33.7 32.0-36.0 g/dL Red Cell Distribution Width 15.9 H 11.8-14.3 % Platelet Count 417 140-450 10^3/uL Mean Platelet Volume 7.6 6.9-10.8 fL Neutrophils (%) (Auto) 85.5 H 37.0-80.0 % Lymphocytes (%) (Auto) 6.1 L 10.0-50.0 % Monocytes (%) (Auto) 7.9 0.0-12.0 % Eosinophils (%) (Auto) 0.2 0.0-7.0 % Basophils (%) (Auto) 0.3 0.0-2.0 % Neutrophils # (Auto) 7.6 1.6-8.6 10 ^3/uL Lymphocytes # (Auto) 0.5 0.4-5.4 10 ^3/uL Monocytes # (Auto) 0.7 0-1.3 10 ^3/uL Eosinophils # (Auto) 0 0-0.8 10 ^3/uL Basophils # (Auto) 0 0-0.2 10 ^3/uL Nucleated Red Blood Cells 0.1 % Sodium Level 130 L 136-145 mmol/L Potassium Level 3.4 L 3.5-5.1 mmol/L Chloride Level 99 98-107 mmol/L Carbon Dioxide Level 18 L 20-31 mmol/L Anion Gap 13 5-15 Blood Urea Nitrogen 68 H 9-23 mg/dL Creatinine 1.16 #H 0.550-1.02 mg/dL Glomerular Filtration Rate Calc 51 >90 mL/min BUN/Creatinine Ratio 58.6 H 10.0-20.0 Serum Glucose 160 H 74-106 mg/dL Calcium Level 10.6 H 8.7-10.4 mg/dL Current Medications Medications (Trade) Dose Ordered Sig/Nora Route Start Time Stop Time Status Last Admin Morphine Sulfate 4 mg ONCE ONCE IV 06/24/24 05:30 06/24/24 05:31 DC 06/24/24 08:54 Sodium Chloride 1,000 ml @ 1,000 mls/hr Q1H ONCE IV 06/24/24 05:30 06/24/24 06:29 DC 06/24/24 05:56 Ondansetron HCl (Zofran) 4 mg ONCE ONCE IV 06/24/24 05:30 06/24/24 05:31 DC 06/24/24 05:57 Patient alert. Complaining of abdominal pain. Was recently discharged from this hospital. Vitals stable. Glucose elevated. Calcium elevated. Establish intravenous access. Was given fluids pain Was given Zofran. Continues to have abdominal pain. Reviewed her previous visit. Anemia. Explained to the patient. Continue cardiac monitoring. Time of 1ST Reevaluation: 05:19 Reevaluation 1ST: Unchanged Patient Education/Counseling: Diagnosis, Treatment Family Education/Counseling: No Family Present Departure 1 Departure Time of Disposition: 07:42 Impression: Primary Impression: Hypercalcemia Additional Impressions: Anemia Qualified Codes: D64.9 - Anemia, unspecified Hypertension Qualified Codes: I10 - Essential (primary) hypertension Uncontrolled diabetes mellitus Qualified Codes: E13.65 - Other specified diabetes mellitus with hyperglycemia Disposition: ADMITTED INPATIENT Admit to: Med Surg Condition: Guarded Critical Care Note Critical Care Time?: Yes (35 min-critical care time only) Stability Stability form required: No Heart Score Heart Score: Heart Score Response (Comments) Value History N/A 0 EKG N/A 0 Age N/A 0 Risk Factors N/A 0 Troponin N/A 0 Total 0 I personally scribed for PRISCILLA GUZMAN MD ([email or web address]) on 06/24/24 at 05:22. Electronically submitted by Willem Irizarry ([email or web address]). I personally scribed for PRISCILLA GUZMAN MD ([email or web address]) on 06/24/24 at 05:26. Electronically submitted by Willem Irizarry ([email or web address]). PRISCILLA GUZMAN MD Jun 24, 2024 05:22 BRENT MORILLO MD Jun 24, 2024 06:16
[2024-06-24] MEDS: SODIUM CHLORIDE 0.9% 1,000 ML IV ONE (05:56)
[2024-06-24] MEDS: ONDANSETRON HCL 4 MG/2 ML VIAL IV ONE (05:57)
[2024-06-24] MEDS: MORPHINE SULFATE 4 MG/ML SYR/VIAL IV ONE (05:57)
[2024-06-24 06:07] VITALS: PULSE 88; RESP 15; O2SAT 100
[2024-06-24 06:25] LABS: Chloride 99 mmol/L (98-107); Potassium 3.4 mmol/L (3.5-5.1); Sodium 130 mmol/L (136-145)
[2024-06-24 06:26] LABS: Anion Gap 13 (5-15); Carbon Dioxide 18 mmol/L (20-31)
[2024-06-24 06:27] LABS: Calcium 10.6 mg/dL (8.7-10.4)
[2024-06-24 06:28] LABS: Basophils # (auto) 0 10 ^3/uL (0-0.2); Basophils % (auto) 0.3 % (0.0-2.0); Eosinophils # (auto) 0 10 ^3/uL (0-0.8); Eosinophils % (auto) 0.2 % (0.0-7.0); Hematocrit 28.1 % (36.0-46.0); Hemoglobin 9.5 g/dL (12.2-16.2); Lymphocytes # (auto) 0.5 10 ^3/uL (0.4-5.4); Lymphocytes % (auto) 6.1 % (10.0-50.0); Mean Corpuscular Hemoglobin 30.7 pg (28.0-32.0); Mean Corpuscular Hgb Conc. 33.7 g/dL (32.0-36.0); Mean Corpuscular Volume 90.9 fL (80.0-100.0); Monocytes # (auto) 0.7 10 ^3/uL (0-1.3); Monocytes % (auto) 7.9 % (0.0-12.0); Neutrophils # (auto) 7.6 10 ^3/uL (1.6-8.6); Neutrophils % (auto) 85.5 % (37.0-80.0); Nucleated Red Blood Cells % 0.1 %; Platelet Count (auto) 417 10^3/uL (140-450); Red Blood Cells 3.09 10^6/uL (4.0-5.20); Red Cell Distribution Width 15.9 % (11.8-14.3); White Blood Cell 8.9 10^3/uL (4.4-10.8)
[2024-06-24 06:31] LABS: BUN/Creatinine Ratio 58.6 (10.0-20.0); Blood Urea Nitrogen 68 mg/dL (9-23); Glucose 160 mg/dL (74-106)
[2024-06-24] MEDS: IOHEXOL 300 MG/ML 100ML BOTTLE IJ ONE (07:36)
--- NOTE | 2024-06-24 08:45 | ECG ---
[facility] Test Date: 2024-06-24 Test Time: 05:06:35 Pat Name: LORRAINE FISCHER Department: ED Room: Gender: F Information Specialist: : 1955 Requested By: PRISCILLA GUZMAN Order Number: [id number] Reading MD: Measurements Intervals Waterman Rate: 92 P: 76 PA: 140 QRS: 64 QRSD: 88 T: 66 QT: 409 QTc: 507 Interpretive Statements Sinus rhythm Probable left atrial enlargement Borderline T wave abnormalities Prolonged QT interval Please click the below link to view image of tracing.
[2024-06-24 09:00] VITALS: PULSE 81; RESP 18; O2SAT 100
[2024-06-24] MEDS ORDERED: ACETAMINOPHEN 325 MG TAB PO PRN (11:30)
[2024-06-24] MEDS ORDERED: MAALOX PLUS or MAALOX 30 ML PO PRN (11:30)
[2024-06-24] MEDS ORDERED: DOCUSATE SOD 100 MG CAP PO PRN (11:30)
[2024-06-24] MEDS: SODIUM CHLORIDE 0.9% 1,000 ML IV SCH (13:06)
--- NOTE | 2024-06-24 13:08 | DVHHP2 ---
History of Present Illness Reason for Visit: Pain Management History of Present Illness 68 yo female with history of breast cancer, previous bowel obstruction and perforation and history of ileostomy placed as well as a stroke patient is currently having severe pain that is difficult to control and having intractable pain as well and nausea and vomiting patient wants to change her advance directive status and she would like to be seen as per her wishes by hospice and pain management for continued better management and pain control patient wants to focus on end of life care and comfort measures according to family Cardiovascular: CAD, HTN GI: Constipation, Gastritis Heme/Onc: Cancer Musculoskeletal: Chronic low back pain Review of Systems Constitutional: Yes: Fever, Weakness, Malaise; No: Chills, Sweats, Other Eyes: No: Pain, Vision change, Conjunctivae inflammation, Eyelid inflammation, Other, Redness ENT: No: Ear pain, Ear discharge, Nose pain, Nose discharge, Nose congestion, Mouth pain, Mouth swelling, Throat pain, Throat swelling, Other Respiratory: No: Cough, Dry, Shortness of breath, SOB with excertion, Wheezing, Hemoptysis, Pleuritic Pain, Sputum, Wheezing, Other Cardiovascular: No: Chest Pain, Palpitations, Orthopnea, Paroxysmal Noc. Dyspnea, Edema, Lt Headedness, Other Gastrointestinal: Nausea, Vomiting, Abdominal Pain; No: Diarrhea, Constipation, Melena, Hematochezia, Other Genitourinary: No Dysuria, No Frequency, No Incontinence, No Hematuria, No Retention, No Other Musculoskeletal: neck pain, shoulder pain, arm pain, back pain, leg pain Skin: No: Rash, Lesions, Jaundice, Bruising, Other Neurological: Weakness, Numbness; No: Incoordination, Change in speech, Confusion, Seizures, Other Allergies: Coded Allergies: Lorazepam (Verified Allergy, Intermediate, EXTREME AGITATION AND CONFUSION, 06/10/24) Sulfa Antibiotics (Unverified Allergy, Unknown, 05/04/24) Statins (Unverified Adverse Reaction, Intermediate, muscle aches, 05/04/24) Exam Vital Signs Vital Signs Date Time Temp Pulse Resp B/P (MAP) Pulse Ox O2 Delivery O2 Flow Rate FiO2 06/24/24 09:24 95 13 105/54 06/24/24 06:07 100 Room Air* 0 21 06/24/24 05:30 97.4 97.4 General Appearance: Oriented X3 HEENT: Atraumatic, PERRLA Respiratory: Clear to auscultation, Normal air movement Cardiovascular: Regular rate, Normal S1, Normal S2, Other (port noted on chest ) Abdominal: Soft, Other (ostomy in place ) Extremities: No clubbing, No cyanosis Neuro: Other (left sided weakness lack of ambulation ns/p stroke ) Psych/Mental Status: Other (in painful distress ) Labs/Xrays Labs Test 06/24/24 06:01 Range/Units White Blood Count 8.9 # 4.4-10.8 10^3/uL Red Blood Count 3.09 L 4.0-5.20 10^6/uL Hemoglobin 9.5 L 12.2-16.2 g/dL Hematocrit 28.1 L 36.0-46.0 % Mean Corpuscular Volume 90.9 80.0-100.0 fL Mean Corpuscular Hemoglobin 30.7 28.0-32.0 pg Mean Corpuscular Hemoglobin Concent 33.7 32.0-36.0 g/dL Red Cell Distribution Width 15.9 H 11.8-14.3 % Platelet Count 417 140-450 10^3/uL Mean Platelet Volume 7.6 6.9-10.8 fL Neutrophils (%) (Auto) 85.5 H 37.0-80.0 % Lymphocytes (%) (Auto) 6.1 L 10.0-50.0 % Monocytes (%) (Auto) 7.9 0.0-12.0 % Eosinophils (%) (Auto) 0.2 0.0-7.0 % Basophils (%) (Auto) 0.3 0.0-2.0 % Neutrophils # (Auto) 7.6 1.6-8.6 10 ^3/uL Lymphocytes # (Auto) 0.5 0.4-5.4 10 ^3/uL Monocytes # (Auto) 0.7 0-1.3 10 ^3/uL Eosinophils # (Auto) 0 0-0.8 10 ^3/uL Basophils # (Auto) 0 0-0.2 10 ^3/uL Nucleated Red Blood Cells 0.1 % Sodium Level 130 L 136-145 mmol/L Potassium Level 3.4 L 3.5-5.1 mmol/L Chloride Level 99 98-107 mmol/L Carbon Dioxide Level 18 L 20-31 mmol/L Anion Gap 13 5-15 Blood Urea Nitrogen 68 H 9-23 mg/dL Creatinine 1.16 #H 0.550-1.02 mg/dL Glomerular Filtration Rate Calc 51 >90 mL/min BUN/Creatinine Ratio 58.6 H 10.0-20.0 Serum Glucose 160 H 74-106 mg/dL Calcium Level 10.6 H 8.7-10.4 mg/dL Assessment/Plan Assessment/Plan Admit to [facility] Multiple Comorbid Sequels to Metastatic cancer Breast Cancer History Bowel Perforation history Ostomy in Place Chemo Port in Place Chronic Intractable Pain Patient interested in Pain Management Pain Consult Palliative Care/ Hospice Care Patient overall goal is hospice care even better hospice care management at home if possible Plan discussed with: Patient, Other (Patient sister ) My Orders Orders - DANILO SHETH MD Procedure Category Date Status Time Admit ADMIT 06/24/24 Transmitted 11:22 Code Status CODE 06/24/24 Transmitted 11:22 Basic Metabolic Panel LAB 06/25/24 Verified 04:00 Complete Blood Count LAB 06/25/24 Verified 04:00 Patient Condition ORDERS 06/24/24 Transmitted 11:22 Oxygen By Nasal RT 06/24/24 Transmitted Cannula 11:22 * Pain Managment CONS 06/24/24 Transmitted Consult 12:47 *Hospice Consult CONS 06/24/24 Transmitted Problem List: (1) SBO (small bowel obstruction) (2) Intra-abdominal abscess (3) Stroke (4) Breast cancer (5) Uncontrolled diabetes mellitus (6) Hypercalcemia (7) Anemia (8) Hypertension (9) Fungal infection Date of Service: Jun 24, 2024 Billing Provider: DANILO SHETH MD Common Visit Codes: 43141-FCOROOL INP/OBS CARE (HIGH) DANILO SHETH MD Jun 24, 2024 13:08
[2024-06-24] MEDS: METOCLOPRAMIDE HCL 5MG/ml INJ 2ml VIAL IV PRN (14:26)
[2024-06-24] MEDS: HYDROcodone-ACET 5/325MG TAB PO PRN (18:30)
[2024-06-24] MEDS: ONDANSETRON HCL 4 MG/2 ML VIAL IV PRN (18:36)
[2024-06-24 19:40] VITALS: PULSE 83; RESP 13; O2SAT 100
[2024-06-24] MEDS: MORPHINE SULFATE INJ 2 MG/ml SYRG IV PRN (21:52)
[2024-06-25] VITALS (9 sets, daily range): BP systolic 103–164; BP diastolic 45–85; PULSE 77–105; RESP 16–21; TEMP 97.2–98.5; O2SAT 94–100
[2024-06-25] MEDS: KETOROLAC TROMETH 30 MG/ML 1ML VIAL IV ONE (02:01)
[2024-06-25] MEDS: IOHEXOL 300 MG/ML 100ML BOTTLE IJ ONE (07:54)
[2024-06-25 10:44] LABS: Basophils # (auto) 0 10 ^3/uL (0-0.2); Basophils % (auto) 0.3 % (0.0-2.0); Eosinophils # (auto) 0.1 10 ^3/uL (0-0.8); Eosinophils % (auto) 1.2 % (0.0-7.0); Hematocrit 30.5 % (36.0-46.0); Hemoglobin 10.4 g/dL (12.2-16.2); Lymphocytes # (auto) 0.7 10 ^3/uL (0.4-5.4); Mean Corpuscular Hemoglobin 30.9 pg (28.0-32.0); Mean Corpuscular Hgb Conc. 34.1 g/dL (32.0-36.0); Mean Corpuscular Volume 90.8 fL (80.0-100.0); Monocytes # (auto) 0.9 10 ^3/uL (0-1.3); Monocytes % (auto) 9.1 % (0.0-12.0); Neutrophils # (auto) 7.7 10 ^3/uL (1.6-8.6); Neutrophils % (auto) 82.4 % (37.0-80.0); Nucleated Red Blood Cells % 0.3 %; Platelet Count (auto) 501 10^3/uL (140-450); Red Blood Cells 3.36 10^6/uL (4.0-5.20); Red Cell Distribution Width 16.4 % (11.8-14.3); White Blood Cell 9.3 10^3/uL (4.4-10.8)
[2024-06-25 11:02] LABS: Alanine Aminotransferase 75 U/L (7-40); Albumin 4.2 g/dL (3.2-4.8); Alkaline Phosphatase 286 U/L (46-116); Anion Gap 14 (5-15); Aspartate Aminotransferase 42 U/L (13-40); BUN/Creatinine Ratio 48.6 (10.0-20.0); Bilirubin, Total 0.8 mg/dL (0.2-1.0); Calcium 11.4 mg/dL (8.7-10.4); Carbon Dioxide 20 mmol/L (20-31); Chloride 98 mmol/L (98-107); Glucose 163 mg/dL (74-106); Magnesium 2.1 mg/dL (1.6-2.6); Potassium 2.9 mmol/L (3.5-5.1); Sodium 132 mmol/L (136-145); Total Protein 8.4 g/dL (5.7-8.2)
[2024-06-25 11:03] LABS: Blood Urea Nitrogen 52 mg/dL (9-23)
--- NOTE | 2024-06-25 11:05 | DVHPN2 ---
Subjective 68-year-old female who was just discharged from the hospital 4 days ago after she was here for a month and a half after she had the hysterectomy complicated by acute CVA and abdominal infection status post 2 more surgeries in her abdomen for abscess evacuation and drainage, respiratory failure mechanical ventilation, she eventually improved and was discharged to the SNF for rehab, she comes back with abdominal pain because her pain was not controlled very well at the SNF associated with nausea and vomiting Now she says she does not want to go back to SNF, she wants to go home, she is also asking for hospice Changes from previous H/P or p: Changes Eyes: No Pain, No Vision change, No Conjunctivae inflammation, No Eyelid inflammation, No Other, No Redness ENT: No Ear pain, No Ear discharge, No Nose pain, No Nose discharge, No Nose congestion, No Mouth pain, No Mouth swelling, No Throat pain, No Throat swelling, No Other Cardiovascular: No Chest Pain, No Palpitations, No Orthopnea, No Paroxysmal Noc. Dyspnea, No Edema, No Lt Headedness, No Other Respiratory: No Cough, No Dry, No Shortness of breath, No SOB with excertion, No Wheezing, No Hemoptysis, No Pleuritic Pain, No Sputum, No Other Gastrointestinal: Nausea, Vomiting, Abdominal Pain; No Diarrhea, No Constipation, No Melena, No Hematochezia, No Other Genitourinary: No Dysuria, No Frequency, No Incontinence, No Hematuria, No Retention, No Other Musculoskeletal: neck pain, shoulder pain, arm pain, back pain, leg pain Skin: No Rash, No Lesions, No Jaundice, No Bruising, No Other Objective Vitals Vital Signs Date Time Temp Pulse Resp B/P (MAP) Pulse Ox O2 Delivery O2 Flow Rate FiO2 06/25/24 08:00 97.2 87 20 151/68 (95) 99 97.2 06/25/24 02:20 Nasal Cannula* 2 28 Intake/Output Intake and Output 06/25/24 07:00 Intake Total 200 ml Balance 200 ml Intake Oral 200 ml General Appearance: Alert, Oriented X3, Cooperative Lungs: Clear to auscultation, Normal air movement Cardiovascular: Regular rate, Normal S1, Normal S2 Abdomen: Normal bowel sounds, Soft, No tenderness Extremities: No edema Medications Current Medications Medications Dose Ordered Sig/Nora Route Start Time Stop Time Status Last Admin Dose Admin Sodium Chloride 1,000 ml @ 60 mls/hr [id number] IV 06/24/24 11:30 06/24/24 13:06 60 MLS/HR Al Hydrox/Mg Hydrox/Simethicone 30 ml Q6HP PRN PO 06/24/24 11:30 Metoclopramide HCl 10 mg Q4HP PRN IV 06/24/24 11:30 06/25/24 05:49 10 MG Docusate Sodium 100 mg BIDPRN PRN PO 06/24/24 11:30 Acetaminophen 650 mg Q6HP PRN PO 06/24/24 11:30 Acetaminophen/ Hydrocodone Bitart 1 tab Q4HP PRN PO 06/24/24 11:30 06/25/24 01:00 1 TAB Ondansetron HCl 4 mg Q4HP PRN IV 06/24/24 11:30 06/24/24 18:36 4 MG Morphine Sulfate 2 mg Q4HPRN PRN IV 06/24/24 11:30 06/24/24 21:52 2 MG Laboratory Results Laboratory Tests 06/25/24 10:05 Chemistry Test 06/25/24 10:05 Albumin Pending Calcium Level Pending Magnesium Level Pending Total Protein Pending LFT Test 06/25/24 10:05 Alanine Aminotransferase (ALT) Pending Alkaline Phosphatase Pending Aspartate Amino Transferase (AST) Pending Total Bilirubin Pending Assessment/Plan Assessment/Plan Abdominal pain due to multiple abdominal surgeries recently and abdominal infection and abscess evacuation Status post ileostomy Status post EVARISTO drainage on the right side Open wound in the midline with purulent discharge not a candidate for more surgeries Acute CVA 6 weeks ago after the elective hysterectomy Status post elective hysterectomy 6 weeks ago complicated by a prolonged hospitalization and acute CVA and abdominal infection and debility and bed bound condition Severe weakness with left-sided hemiparesis History of breast cancer Hypokalemia Acute kidney injury Hyponatremia Anemia Dehydration Plan IV fluids Soft mechanical diet Add ensure Cancel the CT scan of the abdomen Consult hospice Stopped the [place] since she is having nausea and vomiting Add morphine solution 10 mg p.o. Q 4 hours p.r.n. for severe pain Zofran as needed Replace potassium Plan discussed with: Patient My Orders Orders - BARI MOORE MD Procedure Category Date Status Time Comprehensive LAB 06/25/24 In Process Metabolic Panel 09:53 Magnesium LAB 06/25/24 In Process 09:53 Mechanical Soft Diet DIET 06/25/24 Transmitted Lunch Date of Service: Jun 25, 2024 Billing Provider: BARI MOORE MD Common Visit Codes: NOT BILLABLE BARI MOORE MD Jun 25, 2024 11:05
[2024-06-25] MEDS ORDERED: MORPHINE SULFATE 10 MG/5 ML ORAL SOLN PO PRN (11:15)
[2024-06-25] MEDS ORDERED: ONDANSETRON ODT 4 MG TAB PO PRN (13:15)
[2024-06-25] MEDS ORDERED: ONDANSETRON HCL 4 MG/2 ML VIAL IV PRN (13:45)
[2024-06-25] MEDS: POTASSIUM CHL 20 Meq TABLET PO ONE (14:05)
[2024-06-25] MEDS: Ensure HIGH Protein Chocolate 8oz Bottle PO SCH (14:07)
--- NOTE | 2024-06-25 15:22 | DVHINCON2 ---
Date of service: Jun 25, [address] Carpio Reason for Consultation Intractable back and leg pain History of Present Illness La is a 68-year-old white lady with history of chronic back pain, Breast cancer with bilateral mastectomy, Bowel obstruction with perforation, and ile ostomy came to the hospital with severe pain in her low back and leg in addition to Nausea and vomiting. She had Por-A-Cath whhich is not working so does not have available venous access. She rated her pain as 10/10 on a numerical pain scale of 0-10/10. The patient also has a history of stroke in the past too. Past Medical History Breast Cancer, Chronic back and leg pain, Stroke, and CAD Past Surgical History Bilateral Mastectomy Iliostomy Gdlc-P-Wyqqlpnd placement Family History: FH: cancer G8 FATHER G8 BROTHER Allergies: Coded Allergies: Lorazepam (Verified Allergy, Intermediate, EXTREME AGITATION AND CONFUSION, 06/10/24) Sulfa Antibiotics (Unverified Allergy, Unknown, 05/04/24) Statins (Unverified Adverse Reaction, Intermediate, muscle aches, 05/04/24) Home Meds Reported Medications Ondansetron Odt 4MG Tab (ZOFRAN PO) 4 Mg Tb, 4 MG PO TIDPRN, TAB ODT TAB-DISSOLVE IN MOUTH, THEN SWALLOW 06/20/24 Hydrocodone-Acetaminophen (Hydrocodone Bitartrate/AC 10-325 mg) 1 Tab Tab, 1 TAB PO TID, TAB 06/20/24 Sertraline Hcl (Zoloft) 50 Mg Tab, 50 MG PO DAILY, TAB 05/04/24 Sertraline Hcl (Zoloft) 25 Mg Tab, 1 TAB PO DAILY, #30 TAB 1 Refill 05/04/24 Ciprofloxacin Hcl (Cipro) 500 Mg Tab, 500 MG PO BID, TAB 05/04/24 Tamoxifen Citrate (Tamoxifen Citrate) 20 Mg Tab, 20 MG PO DAILY, TAB 05/04/24 Current Medications Current Medications Medications (Trade) Dose Ordered Sig/Nora Route PRN Reason Start Time Stop Time Status Last Admin Enteral Nutritional Formula (Ensure High Protein) 240 ml TIDWM PO 06/25/24 12:00 06/25/24 14:07 Morphine Sulfate 10 mg Q4HP PRN PO SEVERE PAIN (7-10 PAIN SCALE) 06/25/24 11:15 Ondansetron HCl (Zofran Po) 4 mg Q4HP PRN PO NAUSEA / VOMITING 06/25/24 13:15 Ondansetron HCl (Zofran) 4 mg Q4HP PRN IV NAUSEA / VOMITING 06/25/24 13:45 Review of Systems All ten review systems are within normal limit except mentioned above Vital Signs Vital Signs Date Time Temp Pulse Resp B/P (MAP) Pulse Ox O2 Delivery O2 Flow Rate FiO2 06/25/24 12:00 97.7 91 20 141/69 (93) 100 97.7 06/25/24 02:20 Nasal Cannula* 2 28 Physical Exam General: AAO X 3 but is very cachetic HEENT: PERRLA Neck: Supple Heart: S1, S2 Lung: Clear but is using O2 by nasal cannula Abdomen: Soft with Ileostomy present Back was not examined due to her pain Lower and upper extremities are within normal limit Cranial nerves 2-12 are intact Labs/Diagnostic Data Labs Test 06/25/24 10:05 Range/Units White Blood Count 9.3 4.4-10.8 10^3/uL Red Blood Count 3.36 L 4.0-5.20 10^6/uL Hemoglobin 10.4 L 12.2-16.2 g/dL Hematocrit 30.5 L 36.0-46.0 % Mean Corpuscular Volume 90.8 80.0-100.0 fL Mean Corpuscular Hemoglobin 30.9 28.0-32.0 pg Mean Corpuscular Hemoglobin Concent 34.1 32.0-36.0 g/dL Red Cell Distribution Width 16.4 H 11.8-14.3 % Platelet Count 501 H 140-450 10^3/uL Mean Platelet Volume 7.8 6.9-10.8 fL Neutrophils (%) (Auto) 82.4 H 37.0-80.0 % Lymphocytes (%) (Auto) 7.0 L 10.0-50.0 % Monocytes (%) (Auto) 9.1 0.0-12.0 % Eosinophils (%) (Auto) 1.2 0.0-7.0 % Basophils (%) (Auto) 0.3 0.0-2.0 % Neutrophils # (Auto) 7.7 1.6-8.6 10 ^3/uL Lymphocytes # (Auto) 0.7 0.4-5.4 10 ^3/uL Monocytes # (Auto) 0.9 0-1.3 10 ^3/uL Eosinophils # (Auto) 0.1 0-0.8 10 ^3/uL Basophils # (Auto) 0 0-0.2 10 ^3/uL Nucleated Red Blood Cells 0.3 % Sodium Level 132 L 136-145 mmol/L Potassium Level 2.9 L 3.5-5.1 mmol/L Chloride Level 98 98-107 mmol/L Carbon Dioxide Level 20 20-31 mmol/L Anion Gap 14 5-15 Blood Urea Nitrogen 52 #H 9-23 mg/dL Creatinine 1.07 H 0.550-1.02 mg/dL Glomerular Filtration Rate Calc 56 >90 mL/min BUN/Creatinine Ratio 48.6 H 10.0-20.0 Serum Glucose 163 H 74-106 mg/dL Calcium Level 11.4 H 8.7-10.4 mg/dL Magnesium Level 2.1 1.6-2.6 mg/dL Total Bilirubin 0.8 0.2-1.0 mg/dL Aspartate Amino Transferase (AST) 42 H 13-40 U/L Alanine Aminotransferase (ALT) 75 H 7-40 U/L Alkaline Phosphatase 286 H 46-116 U/L Total Protein 8.4 H 5.7-8.2 g/dL Albumin 4.2 3.2-4.8 g/dL Assessment The patient is suffering from the chronic back and leg pain in addition to Nausea and Vomiting. She has history of breast cancer and the CT scan of the abdomen did not show any lesion. Unfortunately we do not the imaging of the spine for ruling out bone metastasis. Due to no IV access, I recommended Fentanyl patch starting with 25 mcg/ hr in addition to [place]. I will adjust the dosage after 24 hours to make the patient more comfortable. Plan discussed with: Patient JUAQUIN DE LA CRUZ MD Jun 25, 2024 15:22
[2024-06-25] MEDS: fentaNYL 25MCG/HR 25 MCG/HR PAT TD SCH (16:10)
[2024-06-25] MEDS: ONDANSETRON ODT 4 MG TAB PO PRN (20:51)
[2024-06-26 01:00] VITALS: BP 130/65; PULSE 73; RESP 16; TEMP 98.2; O2SAT 99
[2024-06-26 05:00] VITALS: BP 128/65; PULSE 99; RESP 16; TEMP 98.3; O2SAT 95
[2024-06-26 06:46] LABS: Basophils # (auto) 0 10 ^3/uL (0-0.2); Eosinophils # (auto) 0 10 ^3/uL (0-0.8); Hemoglobin 11.5 g/dL (12.2-16.2); Lymphocytes # (auto) 0.7 10 ^3/uL (0.4-5.4); Monocytes # (auto) 1.1 10 ^3/uL (0-1.3); Nucleated Red Blood Cells % 0.1 %
[2024-06-26 06:49] LABS: Basophils % (auto) 0.2 % (0.0-2.0); Eosinophils % (auto) 0.2 % (0.0-7.0); Hematocrit 33.7 % (36.0-46.0); Lymphocytes % (auto) 6.1 % (10.0-50.0); Mean Corpuscular Hemoglobin 30.1 pg (28.0-32.0); Mean Corpuscular Hgb Conc. 34.1 g/dL (32.0-36.0); Mean Corpuscular Volume 88.4 fL (80.0-100.0); Monocytes % (auto) 9.5 % (0.0-12.0); Neutrophils # (auto) 10.1 10 ^3/uL (1.6-8.6); Platelet Count (auto) 570 10^3/uL (140-450); Red Blood Cells 3.81 10^6/uL (4.0-5.20)
[2024-06-26 06:55] LABS: Alanine Aminotransferase 80 U/L (7-40); Albumin 4.9 g/dL (3.2-4.8); Alkaline Phosphatase 313 U/L (46-116); Anion Gap 16 (5-15); Aspartate Aminotransferase 33 U/L (13-40); BUN/Creatinine Ratio 42.5 (10.0-20.0); Blood Urea Nitrogen 57 mg/dL (9-23); Calcium 12.3 mg/dL (8.7-10.4); Carbon Dioxide 20 mmol/L (20-31); Chloride 94 mmol/L (98-107); Glucose 182 mg/dL (74-106); Magnesium 2.5 mg/dL (1.6-2.6); Potassium 3.1 mmol/L (3.5-5.1); Sodium 130 mmol/L (136-145)
[2024-06-26 06:56] LABS: Total Protein 8.9 g/dL (5.7-8.2)
[2024-06-26 08:05] VITALS: PULSE 89; RESP 16; O2SAT 98
[2024-06-26 09:00] VITALS: BP 133/48; PULSE 89; RESP 16; TEMP 97.8; O2SAT 98
--- NOTE | 2024-06-26 09:29 | DVHDS2 ---
Discharge Summary Date of Admission Jun 24, 2024 at 11:22 Date of Discharge: Jun 26, 2024 Labs/Diagnostic Data: Laboratory Results Test 06/26/24 06:05 White Blood Count 12.0 10^3/uL (4.4-10.8) Red Blood Count 3.81 10^6/uL (4.0-5.20) Hemoglobin 11.5 g/dL (12.2-16.2) Hematocrit 33.7 % (36.0-46.0) Mean Corpuscular Volume 88.4 fL (80.0-100.0) Mean Corpuscular Hemoglobin 30.1 pg (28.0-32.0) Mean Corpuscular Hemoglobin Concent 34.1 g/dL (32.0-36.0) Red Cell Distribution Width 16.0 % (11.8-14.3) Platelet Count 570 10^3/uL (140-450) Mean Platelet Volume 7.6 fL (6.9-10.8) Neutrophils (%) (Auto) 84.0 % (37.0-80.0) Lymphocytes (%) (Auto) 6.1 % (10.0-50.0) Monocytes (%) (Auto) 9.5 % (0.0-12.0) Eosinophils (%) (Auto) 0.2 % (0.0-7.0) Basophils (%) (Auto) 0.2 % (0.0-2.0) Neutrophils # (Auto) 10.1 10 ^3/uL (1.6-8.6) Lymphocytes # (Auto) 0.7 10 ^3/uL (0.4-5.4) Monocytes # (Auto) 1.1 10 ^3/uL (0-1.3) Eosinophils # (Auto) 0 10 ^3/uL (0-0.8) Basophils # (Auto) 0 10 ^3/uL (0-0.2) Nucleated Red Blood Cells 0.1 % Sodium Level 130 mmol/L (136-145) Potassium Level 3.1 mmol/L (3.5-5.1) Chloride Level 94 mmol/L (98-107) Carbon Dioxide Level 20 mmol/L (20-31) Anion Gap 16 (5-15) Blood Urea Nitrogen 57 mg/dL (9-23) Creatinine 1.34 mg/dL (0.550-1.02) Glomerular Filtration Rate Calc 43 mL/min (>90) BUN/Creatinine Ratio 42.5 (10.0-20.0) Serum Glucose 182 mg/dL (74-106) Calcium Level 12.3 mg/dL (8.7-10.4) Magnesium Level 2.5 mg/dL (1.6-2.6) Total Bilirubin 1.0 mg/dL (0.2-1.0) Aspartate Amino Transferase (AST) 33 U/L (13-40) Alanine Aminotransferase (ALT) 80 U/L (7-40) Alkaline Phosphatase 313 U/L (46-116) Total Protein 8.9 g/dL (5.7-8.2) Albumin 4.9 g/dL (3.2-4.8) Other Laboratory Tests 06/26/24 06:05 Brief Hx & Hospital Course: Final diagnoses: Abdominal pain due to multiple abdominal surgeries recently and abdominal infection and abscess evacuation Status post ileostomy Status post EVARISTO drainage on the right side Open wound in the midline with purulent discharge not a candidate for more surgeries Acute CVA 6 weeks ago after the elective hysterectomy Status post elective hysterectomy 6 weeks ago complicated by a prolonged hospitalization and acute CVA and abdominal infection and debility and bed bound condition Severe weakness with left-sided hemiparesis History of breast cancer Hypokalemia Acute kidney injury Hyponatremia Anemia Dehydration The patient is a 68-year-old female who was [facility] the [facility] for abdominal pain. She had a prolonged hospitalization here for 45 days and was just discharged few days ago She has an open wound in the abdomen and an ileostomy and a right EVARISTO drain She had a complicated hospitalization last time with an acute CVA with left- sided hemiparesis At this time the patient is electing to go home on hospice She just would like to have pain management Consult hospice Discharged home on hospice for pain management comfort care Discussed with her sister Lianet over the phone, she is in agreement Condition at Discharge: Poor Final Diagnosis/Problems List Abdominal pain due to multiple abdominal surgeries recently and abdominal infection and abscess evacuation Status post ileostomy Status post EVARISTO drainage on the right side Open wound in the midline with purulent discharge not a candidate for more surgeries Acute CVA 6 weeks ago after the elective hysterectomy Status post elective hysterectomy 6 weeks ago complicated by a prolonged hospitalization and acute CVA and abdominal infection and debility and bed bound condition Severe weakness with left-sided hemiparesis History of breast cancer Hypokalemia Acute kidney injury Hyponatremia Anemia Dehydration Discharge Disposition: Hospice - Home SNF Discharge Will this Physician continue t: No Discharge Instruct/Medications Diet: Regular Activity: No Restrictions, As Tolerated Follow Up/Referral: Hospice at home Medications: Per hospice Discharge Statement: "Patient was advised to return to the ER or call 911 if any headaches, dizziness, shortness of breath, chest pain, abdominal pain, bleeding, fevers, or worsening of medical condition. Patient was counseled about treatment plan, medications, possible side effects, patientverbalized understanding. All questions were answered to the best of my ability. This discharge took greater then 30 minutes in planning, reviewing documentation, counseling the patient, and discussing with other team members." ASSESSMENT ASSESSMENT Assessment Abdominal pain due to multiple abdominal surgeries recently and abdominal infection and abscess evacuation Status post ileostomy Status post EVARISTO drainage on the right side Open wound in the midline with purulent discharge not a candidate for more surgeries Acute CVA 6 weeks ago after the elective hysterectomy Status post elective hysterectomy 6 weeks ago complicated by a prolonged hospitalization and acute CVA and abdominal infection and debility and bed bound condition Severe weakness with left-sided hemiparesis History of breast cancer Hypokalemia Acute kidney injury Hyponatremia Anemia Dehydration Date of Service: Jun 26, 2024 Billing Provider: BARI MOORE MD Common Visit Codes: NOT BILLABLE BARI MOORE MD Jun 26, 2024 09:29
[2024-06-26 11:06] VITALS: BP 133/48; PULSE 89; RESP 16; TEMP 36.6; O2SAT 98
[2024-06-26 12:59] VITALS: BP 95/63; PULSE 101; RESP 16; TEMP 97.9; O2SAT 100
== END 2024-06-26 15:15 | disposition hospice, home (50) | DRG 862 ==
LOC: EDBD 04:57 → ER 04:57 → OVERFLOW 11:22 → ER 11:42 → CENTRAL 23:44
PROVIDERS: ADMIT Hospitalist; ATTEND Internal Medicine Geriatric Medicine
DX: T81.43XA Infection following a procedure, organ and space surgical site, initial encounter (principal); N17.0 Acute kidney failure with tubular necrosis; E87.1 Hypo-osmolality and hyponatremia; I69.354 Hemiplegia and hemiparesis following cerebral infarction affecting left non-dominant side; L02.211 Cutaneous abscess of abdominal wall; D64.9 Anemia, unspecified; E83.52 Hypercalcemia; E87.6 Hypokalemia; I10 Essential (primary) hypertension; G89.29 Other chronic pain; Y83.8 Other surgical procedures as the cause of abnormal reaction of the patient, or of later complication, without mention of misadventure at the time of the procedure; M54.50 Low back pain, unspecified; I25.10 Atherosclerotic heart disease of native coronary artery without angina pectoris; E86.0 Dehydration; Z95.828 Presence of other vascular implants and grafts; Z93.2 Ileostomy status; Z90.710 Acquired absence of both cervix and uterus; Z90.13 Acquired absence of bilateral breasts and nipples; Z85.3 Personal history of malignant neoplasm of breast; Z51.5 Encounter for palliative care; Z88.2 Allergy status to sulfonamides; Z88.8 Allergy status to other drugs, medicaments and biological substances; Z79.899 Other long term (current) drug therapy; Z74.01 Bed confinement status; Y92.89 Other specified places as the place of occurrence of the external cause
CPT/HCPCS: 36415; 80048; 80053; 83735; 85025; 87081; 93005; 99291; G0378; J1885; J2405; Q0162